=== PATIENT | female | born 1940 | race Caucasian/White ===

== ENCOUNTER → 2017-10-02 09:55 | Outpatient (CLI) | payer MEDICARE, SELFPAY ==
--- NOTE | 2017-10-02 09:58 | BI_ITS ---
MAMMOGRAPHY - BILATERAL SCREENING 3-D ELSY SYNTHESIS REASON FOR EXAM: Female, 76 years old. Bilateral Screening 3-D tomosynthesis PERTINENT HISTORY: No significant family history. TECHNIQUE: 2-D mammograms and 3-D Elsy synthesis of the breast (s) were performed. CAD was performed. COMPARISON: None. FINDINGS: The breast composition is composed of scattered fibroglandular density. Scattered benign calcifications are seen. No dense spiculated masses or suspicious microcalcifications are identified. No architectural distortion is identified. There is no skin thickening or retraction. There has been no significant change since the prior study. There has been no significant change since the prior study. BI/SCREENING MAMM (CAD), BILAT IMPRESSION: No mammographic signs of malignancy. Routine yearly mammograms recommended. ASSESSMENT CATEGORY: BIRADS Category 2: Benign. A letter regarding these results will be sent to the patient by the facility within 30 days. FOLLOW UP RECOMMENDATION: Yearly follow up mammogram recommended. (A) Approximately 10% of breast cancers are not detected by mammography. A normal mammogram should not delay biopsy of a clinically suspicious abnormality. Electronically Signed: Yung Avitia MD at 8:23 EDT , Service support ,
== END ==
PROVIDERS: Family Provider Internal Medicine; PCP Internal Medicine; Visit Provider Internal Medicine
DX: Z12.31 Encounter for screening mammogram for malignant neoplasm of breast (principal)
CPT/HCPCS: 77063; 77067

== ENCOUNTER → 2018-01-11 13:58 | Outpatient (CLI) | payer MEDICARE, SELFPAY ==
--- NOTE | 2018-01-11 14:03 | US_ITS ---
STUDY: RENAL ULTRASOUND - COMPLETE REASON FOR EXAM: Female, 77 years old. Right flank pain TECHNIQUE: Ultrasound evaluation of the kidneys was performed with real-time and static cho-scale imaging. COMPARISON: None. FINDINGS: RIGHT KIDNEY: Normal location of the right kidney, which is normal in size. The right kidney measures 9.9 x 5.5 x 3.6 cm. There is a normal cortex of the right kidney. The renal cortex measures 1.1 cm. A septated or 2 adjacent cysts are noted at the upper pole measuring 1.8 x 1.6 x 0.9 cm There are no right renal calculi. There is no right hydronephrosis. DISTAL RIGHT URETER: There is non-visualization of the distal right ureter. LEFT KIDNEY: Normal location of the left kidney, which is normal in size. The left kidney measures 9.8 x 4.3 x 3.9 cm. There is a normal cortex of the left kidney. The renal cortex measures 1.4 cm. There is an upper pole 9 mm cyst. There are no left renal calculi. There is no left hydronephrosis. DISTAL LEFT URETER: There is non-visualization of the distal left ureter. BLADDER: The partially distended urinary bladder has a volume of 22 ml. There is irregular wall of the distended urinary bladder. Questionable 1.4 x 1.1 x 0.7 cm intraluminal nodule in the urinary bladder. There are no demonstrated bladder calculi. US/Kidney and Bladder IMPRESSION: 2 adjacent cysts or a septated cyst of the right kidney upper pole. Upper pole cyst of the left kidney . Mild irregular wall thickening and questionable intraluminal nodule of the urinary bladder. Evaluation is limited due to incomplete distention. Electronically Signed: Doug Sinclair DO at 23:00 EDT Tel [phone], Service support ,
== END ==
PROVIDERS: Family Provider Internal Medicine; PCP Internal Medicine; Referring Provider Internal Medicine; Visit Provider Internal Medicine
DX: R10.9 Unspecified abdominal pain (principal)
CPT/HCPCS: 76770

== ENCOUNTER → 2018-03-28 08:43 | Outpatient (CLI) | payer MEDICARE, SELFPAY ==
--- NOTE | 2018-03-28 09:00 | RAD_ITS ---
STUDY: X-RAY - ESOPHAGUS (BARIUM SWALLOW) WITH FLUOROSCOPY REASON FOR EXAM: Female, 77 years old. Dysphagia. TECHNIQUE: 16 view(s) of the esophagus were obtained following swallowing of barium. FLUOROSCOPY TIME (if supplied): (0:33) minutes/seconds COMPARISON: None. FINDINGS: There is no demonstrated esophageal foreign body. There is no demonstrated stricture or mucosal abnormality. There is a small hiatal hernia of the fundus of the stomach. The patient ingested a 12 mm tablet at bedtime without any difficulty. There is atherosclerotic tortuosity of the aortic arch and descending thoracic aorta. Normal visualized pulmonary parenchyma. Normal visualized osseous structures of the thorax. RAD/Esophagus Only IMPRESSION: Small hiatal hernia. Electronically Signed: Dashawn Rowe MD at 15:38 EST Tel [phone], Service support ,
--- OUTSIDE RECORDS SUMMARY | 2018-06-01 23:29 | XMS RPT_ITS | Continuity of Care Document ---
:1940 Author Organization [facility] Address [address] [facility] [address] [place] [address] Phone Care Team Providers Name Role Phone Kristine Davis DO Unavailable Dr. Niels Molina Unavailable Jacque Concepcion Unavailable Belkis Nicole Unavailable Deanna Michelle Unavailable Unavailable Veena Linn Unavailable Unavailable Unavailable Unavailable Problems Name Dates Details Abdominal pain, acute, right lower quadrant (R10.31, 789.03) Status: Active Abnormal mammogram (R92.8, 793.80) Status: Active abnormal pelvic us Status: Active Abnormal ultrasound of bladder (R93.41, 793.5) Status: Active abnormal us of kidney Status: Active Acquired hypothyroidism (E03.9, 244.9) Status: Active Acute renal failure, unspecified acute renal failure type (N17.9, 584.9) Status: Active Anemia (D64.9, 285.9) Status: Active Arthralgia (M25.50, 719.40) Status: Active Asthma, intrinsic, with status asthmaticus (J45.902, 493.11) Comments: no issues Status: Active b12 deficiency Status: Active Back pain (M54.9, 724.5) Comments: flank pain doubt kidney ? 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 Status: Active Diverticulosis of colon (K57.30, 562.10) Status: Active Elevated alkaline phosphatase level (R74.8, 790.5) Status: Active Encounter for screening mammogram for breast cancer (Renamed from Encounter for screening mammogram for malignant neoplasm of breast) (Z12.31, V76.12) Status: Active Encounter for screening mammogram for breast cancer (Renamed from Encounter for screening mammogram for malignant neoplasm of breast) (Z12.31, V76.12) Status: Active Essential hypertension (I10, 401.9) Comments: chronic stable-continue present regimen Status: Active Gastric reflux (K21.9, 530.81) Status: Active Hip pain, right (M25.551, 719.45) Comments: has had xrays of hip and back and nsaids and pt and still has Status: Active Hypercholesterolemia (E78.00, 272.0) Comments: we discucsed her diet ok its lack of activiity she is going to work on getting some exercise machine soee if can do it or not - if not get more active we discussed starting chol loweringmed Status: Active Irritable bowel syndrome (K58.9, 564.1) Status: Active Low back pain (M54.5, 724.2) Status: Active [facility] wellness exam Status: Active [facility] Physical Status: Active Need for prophylactic vaccination and inoculation against influenza (Z23, V04.81) Status: Active Need for prophylactic vaccination and inoculation against influenza (Renamed from Need for immunization against influenza) (Z23, V04.81) Status: Active Nonsmoker (Z78.9, V49.89) Status: Active Osteoarthritis, unspecified osteoarthritis type, unspecified site (M19.90, 715.90) 11-Jul-2007 Status: Active Osteopenia (M85.80, 733.90) Status: Active Other specified conditions associated with female genital organs and menstrual cycle (N94.89, 629.89) Status: Active Other vitamin B12 deficiency anemia (D51.8, 281.1) Status: Active Paresthesia (R20.2, 782.0) Status: Active pericardial effusion Status: Active Postmenopausal (Renamed from Postmenopausal status) (Z78.0, V49.81) Status: Active Postmenopausal (Renamed from Postmenopausal status) (Z78.0, V49.81) Status: Active Pregnancies () Comments: 2. Status: Active Prolonged QT interval (R94.31, 794.31) Comments: taking quinine drops- so needs to m inimize Status: Active Right flank pain (R10.9, 789.09) Status: Active Right flank pain (R10.9, 789.09) Status: Active right lower quadrant pain Status: Active Spinal stenosis, multilevel (M48.00, 724.00) Comments: she saw ortho they are going to fix knee first then work on back Status: Active Unspecified Diagnosis Status: Active Vitaligo Status: Active Vitamin D deficiency, unspecified (E55.9, 268.9) Comments: chronic stable-continue present regimen Status: Active Medications Name Dates Details AmLODIPine Besylate 5 MG Oral Tablet 1 (one) Tablet daily for 90 days Quantity: 90 {Tablet} Refills: 3 Ordered:22-Jan-2018 Fast DOCuauhtemoca AFjuana MIX Kristine A Start : 22-Jan-2018 Active Amoxicillin 500 MG Oral Capsule 4 caps 1 hr prior to dental work for 0 days Refills: 0 Ordered:02-Jan-2018 Fast DOCuauhtemoca AFjuana DO Kristine A Start : 02-Jan-2018 Active Clotrimazole-Betamethasone 1-0.05 % External Cream tad Cream Daily prn for 0 days Quantity: 3 {Tube} Refills: 0 Ordered:09-Mar-2018 Fast DO Kristine AFast DO, Kristine A Start : 09-Mar-2018 Active Comments:PLEASE DISPENSE 3- 15GRAM TUBESPUT ON HOLD CYANOCOBALAMIN, 1000MCG/ML (Injection Solution) 1 (one) Solution one time dose for 1 days Quantity: 10 {Solution} Refills: 3 Ordered:21-Apr-2015 Lisandra Chilel Start : 28-Mar-2012 Active Diovan 160 MG Oral Tablet 1 (one) Tablet daily for 90 days Quantity: 90 {Tablet} Refills: 3 Ordered:03-Mar-2017 Fast DO, Kristine AFast DO, Kristine A Start : 03-Mar-2017 Active Comments:PLEASE PUT ON HOLD Hydrocodone-Acetaminophen 5-325 MG Oral Tablet 1 (one) Tablet Tablet q 6 hours prn for 0 days Quantity: 60 {Tablet} Refills: 0 Ordered:02-Mar-2016 Fast DO, Kristine AFast DO, Kristine A Start : 02-Mar-2016 Active Comments:[facility] - wests report#[id number], df approved and given to pt-jf 03/02/16 Imipramine HCl 25 MG Oral Tablet 1 (one) Tablet qhs prn for 0 days Quantity: 30 {Tablet} Refills: 1 Ordered:14-Jul-2017 Fast DO, Kristine AFast DO, Kristine A Start : 14-Jul-2017 Active Comments:verbally called to [facility] - cmanchak 5/4 Leg Cramps 7 to 8 tabs q hs for leg cramps Active Levothyroxine Sodium 150 MCG Oral Tablet 1 tab Tablet qd for 90 days Quantity: 114 {Tablet} Refills: 3 Ordered:05-Mar-2018 Adrianna Morgan DO Start : 05-Mar-2018 Active Comments:2 full pills on mondayPLEASE PUT ON HOLD Librax 5-2.5 MG Oral Capsule 1 cap Capsule tid prn for 0 days Quantity: 90 {Capsule} Refills: 3 Ordered:22-Jan-2018 Fast DO, Kristine AFast DO, Kristine A Start : 22-Jan-2018 Active LUTEIN, 6MG (Oral Capsule) 1 BID for 0 days Refills: 0 Ordered:18-Dec-2008 Lisandra ChilelActive Mobic 15 MG Oral Tablet 1 (one) Tablet qod for 90 days Quantity: 90 {Tablet} Refills: 3 Ordered:29-Jan-2018 Fast DO, Kristine AFast DO, Kristine A Start : 29-Jan-2018 Active Quinine 2.5mg q hs Active TiZANidine HCl 4 MG Oral Capsule 1 (one) Capsule qd for 90 days Quantity: 90 {Capsule} Refills: 1 Ordered:15-Feb-2018 Kristine Davis DO, DO, Kristine A Start : 15-Feb-2018 Active Tumeric 800mg bid Active UBIQUINOL, 100MG (Oral Capsule) 1 cap daily (100 MG) Active Vitamin D3 16024 UNIT Oral Capsule 1 (one) Capsule once a week for 90 days Quantity: 12 {Capsule} Refills: 3 Ordered:02-Jan-2018 Kristine Davis DO, DO, Kristine A Start : 02-Jan-2018 Active ADVAIR DISKUS, 250-50MCG/DOSE (Inhalation Aerosol Powder Breath Activated) 1 Misc QD for 90 days Quantity: 3 {Misc} Refills: 3 Ordered:03-Jul-2012 Kylee Castellon Start : 09-Jan-2012 End : 03-Jul-2012 Inactive AMOXIL, 875MG (Oral Tablet) 1 BID for 0 days Refills: 0 Ordered:21-Apr-2009 Merlyn Bedoyative ASPIRIN LOW DOSE, 81MG (Oral Tablet) 1 tab qd for 0 days Refills: 0 Ordered:07-Apr-2009 Lisandra Chilel End : 07-Apr-2009 Inactive ASPIRIN LOW DOSE, 81MG (Oral Tablet) 1 tab qd (81 MG) Inactive Ativan 0.5 MG Oral Tablet 1 Tablet qd prn for 0 days Quantity: 3 {Tablet} Refills: 0 Ordered:14-Sep-2016 Lisandra Chilel Start : 12-Sep-2012 End : 14-Sep-2016 Inactive Comments:three CARAFATE, 1GM/10ML (Oral Suspension) 1 (one) Suspension gm qid for 0 days Quantity: 1 {Suspension} Refills: 3 Ordered:05-Aug-2009 Lisandra Chilel Start : 17-Dec-2007 Inactive Chlordiazclidinum 1 cap prn for IBS Inactive Cipro 500 MG Oral Tablet 1 (one) Tablet bid for 10 days Quantity: 20 {Tablet} Refills: 0 Ordered:04-May-2016 Kristine Davis DO, DO, Kristine A Start : 04-May-2016 End : 14-May-2016 Inactive Comments:take a probiotic 2 hours after atb once daily DIOVAN HCT, 160-12.5MG (Oral Tablet) 1 (one) Tablet bid for 0 days Quantity: 60 {Tablet} Refills: 3 Ordered:24-Jan-2011 Lisandra Chilel Start : 30-Dec-2009 End : 24-Jan-2011 Inactive FISH OIL CONCENTRATE, 1000MG (Oral Capsule) 600mg 1 cap qd for 0 days Refills: 0 Ordered:24-Jan-2011 Lisandra Chilel End : 24-Jan-2011 Inactive HYDROXYCHLOROQUINE SULFATE, 200MG (Oral Tablet) 2 tabs Tablet q evening for 0 days Quantity: 60 {Tablet} Refills: 0 Ordered:22-Jun-2011 Tk Almaguer LPNsie Start : 13-Apr-2011 End : 22-Jun-2011 Inactive Losartan Potassium 100 MG Oral Tablet 1 (one) Tablet qd for 0 days Quantity: 30 {Tablet} Refills: 6 Ordered:02-Jan-2018 Kristine MIX DO, Kristine A Start : 16-Oct-2017 End : 02-Jan-2018 Inactive Omeprazole 40 MG Oral Capsule Delayed Release 1 (one) Capsule DR qd for 90 days Quantity: 90 {Capsule} Refills: 0 Ordered:10-Oct-2017 Deanna Michelle Start : 10-Oct-2017 End : 08-Jan-2018 Inactive Comments:per ER PRILOSEC OTC, 20MG (Oral Tablet Delayed Release) 1 tab qd for 0 days Refills: 0 Ordered:05-Aug-2009 Lisandra ChilelInactive PROBIOTIC (Oral Tablet Delayed Release) 1 (one) Tablet DR qd 2 hours after atb for 14 days Quantity: 14 {Tablet} Refills: 0 Ordered:25-Nov-2013 Kristine Davis DO DO, Kristine A Start : 08-Nov-2013 End : 22-Nov-2013 Inactive TRAMADOL HCL, 50MG (Oral Tablet) 2 to 3 tabs qd, prn (50 MG) Inactive Comments:vallenki AMOXICILLIN-POT CLAVULANATE, 875-125MG (Oral Tablet) 1 (one) Tablet Tablet bid for 0 days Quantity: 20 {Tablet} Refills: 0 Ordered:16-Feb-2015 Lisandra Chilel Start : 23-Sep-2013 End : 16-Feb-2015 Discontinued ASPIRIN LOW DOSE, 81MG (Oral Tablet) 1 QD for 0 days Refills: 0 Ordered:27-Mar-2006 Phyllis Escobar RN End : 27-Mar-2006 Discontinued BENICAR, 20MG (Oral Tablet) 1 Tablet QD for 0 days Quantity: 30 {Tablet} Refills: 3 Ordered:26-Feb-2007 Phyllis Escobar RN Start : 26-Feb-2007 End : 25-Jul-2007 Discontinued CELEBREX, 200MG (Oral Capsule) 1 Capsule BID for 0 days Quantity: 180 {Capsule} Refills: 3 Ordered:10-Apr-2006 Phyllis Escobar RN Start : 10-Apr-2006 End : 25-Jul-2007 Discontinued Comments:printed to phone room CLOTRIMAZOLE-BETAMETHASONE, 1-0.5% (External Cream) Not sure PRN for 0 days Refills: 0 Ordered:30-Jan-2006 Ivis Dickey Start : 30-Jan-2006 End : 30-Jan-2006 Discontinued Comments:This order discontinued per [facility]. Cyclobenzaprine HCl 5 MG Oral Tablet 1 (one) Tablet Tablet tid prn for muscle relaxation for 0 days Quantity: 30 {Tablet} Refills: 0 Ordered:14-Sep-2016 Lisandra Chilel Start : 18-Oct-2013 End : 14-Sep-2016 Discontinued Daypro 600 MG Oral Tablet 2 tabs daily (600 MG) End : 14-Sep-2016 Discontinued DIOVAN, 160MG (PO Cap) 1 qd for 0 days Refills: 0 Ordered:11-Jul-2007 Lisandra Chilel Start : 11-Jul-2007 End : 08-Aug-2007 Discontinued Drisdol 76577 UNIT Oral Capsule 1 (one) Capsule once a week for 90 days Quantity: 12 {Capsule} Refills: 3 Ordered:14-Sep-2016 Lisandra Chilel Start : 18-Dec-2015 End : 14-Sep-2016 Discontinued Gabapentin 100 MG Oral Capsule 1 (one) Capsule 1 pill 3 times a day for 3 days for 0 days Quantity: 360 {Capsule} Refills: 1 Ordered:17-Jan-2017 Lisandra Chilel Start : 11-Dec-2015 End : 17-Jan-2017 Discontinued Comments:then 2 pills 3 times a day for 3 days then 3 pills 3 times a day GREEN COFFEE CALLAHAN, 400MG (Oral Capsule) 3 caps am (400 MG) End : 16-Sep-2014 Discontinued GREEN TEA, 150MG (Oral Capsule) daily (150 MG) End : 13-Jul-2012 Discontinued Hydrocodone-Acetaminophen 5-325 MG Oral Tablet 1 (one) Tablet Tablet q 8 hours prn for 0 days Quantity: 90 {Tablet} Refills: 0 Ordered:14-Sep-2016 Lisandra Chilel Start : 05-Nov-2013 End : 14-Sep-2016 Discontinued Comments:ninety LEVAQUIN, 500MG (Oral Tablet) 1 (one) Tablet Daily for 0 days Quantity: 10 {Tablet} Refills: 0 Ordered:11-Jul-2007 Phyllis Escobar RN Start : 11-Jul-2007 End : 25-Jul-2007 Discontinued Monistat 7 Combo Pack Glen 100 & 2 MG-% (9GM) Vaginal Kit 1 (one) Kit Kit TAD for 0 days Quantity: 7 Kit Refills: 0 Ordered:14-Sep-2016 Lisandra Chilel Start : 04-Oct-2013 End : 14-Sep-2016 Discontinued NEXIUM, 40MG (Oral Capsule Delayed Release) 1 (one) Capsule DR Daily for 0 days Quantity: 90 {Capsule_DR} Refills: 3 Ordered:08-Aug-2006 Lisandra Chilel Start : 08-Aug-2006 End : 08-Aug-2007 Discontinued NITROGLYCERIN, 0.4MG (Sublingual Tablet Sublingual) 1 (one) Tab Sublingual q 5 min as needed x 3 max for 0 days Quantity: 30 {Tab_Sublingual} Refills: 0 Ordered:13-Jul-2012 Lisandra Chilel Start : 21-Apr-2009 End : 13-Jul-2012 Discontinued Comments:Medication taken as needed. This order discontinued per [facility]. ORPHENADRINE CITRATE ER, 100MG (Oral Tablet Extended Release 12 Hour) 1 tab bid, prn (100 MG) End : 14-Sep-2016 Discontinued PREVACID, 30MG (Oral Capsule Delayed Release) 1 (one) Capsule DR Daily for 0 days Refills: 0 Ordered:13-Jul-2006 Adrianna Morgan DO Start : 15-Jun-2006 End : 13-Jul-2006 Discontinued QUININE SULFATE, 325MG (Oral Capsule) 1 QD for 0 days Refills: 0 Ordered:26-Jul-2007 Phyllis Escobar RN End : 25-Jul-2007 Discontinued SUCRALFATE, 1GM (Oral Tablet) 1 Tablet Q AC and at HS for 0 days Refills: 0 Ordered:17-Dec-2007 Antwan DO, Kristine AFast DO, Kristine A Start : 17-Dec-2007 End : 17-Dec-2007 Discontinued SYNTHROID, 150MCG (Oral Tablet) 1 QD Tablet 2 Monday for 0 days Refills: 0 Ordered:15-Jun-2006 Mast AMIPhyllis Start : 30-Jan-2006 End : 15-Jun-2006 Discontinued VAGIFEM, 25MCG (Vaginal Tablet) 1 2 times per week for 0 days Refills: 0 Ordered:13-Aug-2007 Lisandra Chilel End : 08-Aug-2007 Discontinued VITAMIN D, 93817GDNT (Oral Capsule) 1 cap q week (48960 UNIT) Start : 27-Mar-2013 End : 27-Mar-2013 Discontinued Comments:This order discontinued per [facility]. VITAMIN D, 56062WIDT (Oral Capsule) 1 cap Capsule q week for 90 days Quantity: 12 {Capsule} Refills: 0 Ordered:27-Mar-2013 Lisandra Chilel Start : 27-Mar-2013 End : 27-Mar-2013 Discontinued Comments:This order discontinued per [facility]. VITAMIN D3, 2000UNIT (Oral Capsule) 1 Capsule qd for 0 days Quantity: 30 {Capsule} Refills: 0 Ordered:13-Nov-2012 Antwan MIX, Kristine AFjuana MIX, Kristine A Start : 13-Nov-2012 End : 13-Nov-2012 Discontinued Allergies and Adverse Reactions Name Dates Details Beef Flavor *PHARMACEUTICAL ADJUVANTS* Status: Active (Allergy) Comments: IBS Diovan HCT *ANTIHYPERTENSIVES* Status: Active (Allergy) Comments: severe leg cramps Diuretic *DIURETICS* (Allergy) Status: Active Comments: severe leg cramps Hydroxychloroquine Sulfate Status: Active *ANTIMALARIALS* (Allergy) Comments: chest pain Levaquin (Allergy) Status: Active Mirapex *ANTIPARKINSON AGENTS* Status: Active (Allergy) Comments: Nausea- didnt feel well while taking it No Known Drug Allergies (Allergy) Onset: 18-Feb-2013 Status: Inactive PredniSONE *CORTICOSTEROIDS* (Allergy) Status: Active Comments: palpitations, chest pain Past Medical History Name Dates Details Abdominal pain, acute, left lower quadrant (R10.32, 789.04) Comments: will presume and tx for diveticulitis -- and await cat scan Status: Inactive as of 27-Aug-2008 Abdominal pain, acute, left upper quadrant (R10.12, 789.02) Comments: improving Status: Inactive as of 27-Aug-2008 Abdominal pain, acute, right upper quadrant (R10.11, 789.01) Comments: ON EXAM--US HIDA WITH CCK WAS NORMAL Status: Inactive as of 27-Aug-2008 Abnormal blood chemistry (R79.9, 790.6) Status: Inactive as of 28-Aug-2017 Abrasion or friction burn of trunk, without mention of infection (911.0) Comments: PLACE EMOILLENTS TO IT AND NO BETTER I 1 SAAD-?? SECONDARY YEAST?? NEED CULTURED? OR REFERRED Status: Inactive as of 27-Aug-2008 Atypical chest pain (R07.89, 786.59) Status: Inactive as of 28-Aug-2017 BMI 35.0-35.9,adult (Z68.35, V85.35) Status: Inactive as of 28-Aug-2017 BMI 36.0-36.9,adult (Z68.36, V85.36) Status: Inactive as of 28-Aug-2017 BMI 37.0-37.9, adult (Z68.37, V85.37) Status: Inactive as of 28-Aug-2017 Chest pain (R07.9, 786.59) Status: Resolved as of 13-Nov-2012 Cough (R05, 786.2) Status: Resolved as of 07-Apr-2009 Cystitis, acute (N30.00, 595.0) Comments: resolved Status: Resolved as of 16-Sep-2014 edema Status: Resolved as of 31-Oct-2007 Edema leg (782.3) Status: Inactive as of 28-Aug-2017 Encounter for immunization (Z23, V03.89) Status: Inactive as of 07-Jul-2010 Epigastric pain (R10.13, 789.06) Comments: IMPROVING --ON PPI LESS THAN ONE MONTH --REC TO CONT FOR TIMEIF NO 100% RESOLUTION REC EGD OTHER STUDY? 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.9) Status: Inactive as of 28-Aug-2017 flank pain Status: Inactive as of 27-Aug-2008 Gastritis, acute (K29.00, 535.00) Status: Inactive as of 28-Aug-2017 Groin pain (789.00) Status: Resolved Kidney cyst, acquired (N28.1, 593.2) Comments: simple cysts Status: Inactive as of 28-Aug-2017 Left leg swelling (M79.89, 729.81) Status: Inactive as of 28-Aug-2017 leg cramps Comments: will try tonic water Status: Inactive as of 27-Aug-2008 Leg cramps (R25.2, 729.82) Status: Inactive as of 28-Aug-2017 Leukopenia (288.0) Status: Resolved as of 30-Dec-2009 Low Back Pain (Renamed from LBP (low back pain)) (M54.5, 724.2) Comments: rt flank Status: Inactive as of 28-Aug-2017 Lung nodule (R91.1, 518.89) Status: Inactive as of 30-Dec-2009 Neck pain (M54.2, 723.1) Status: Inactive as of 28-Aug-2017 Need for vaccination against Streptococcus pneumoniae (Z23, V03.82) Status: Inactive as of 16-Sep-2014 Pain in unspecified joint (M25.50, 719.40) Status: Inactive as of 28-Aug-2017 perirectal rash Status: Resolved as of 16-Sep-2014 postmenopausal without estrogen Status: Inactive as of 27-Aug-2008 Pre-operative exam (Renamed from Preoperative examination) (Z01.818, V72.84) Status: Resolved as of 21-Apr-2015 renal insufficiency Status: Resolved as of 05-Aug-2009 Right groin pain (789.03) Status: Resolved as of 13-Nov-2012 screen Status: Inactive as of 13-Apr-2011 screening Status: Inactive as of 16-Sep-2014 screening Status: Inactive as of 16-Sep-2014 screening Status: Inactive as of 07-Apr-2009 Unspecified Diagnosis Status: Inactive as of 16-Sep-2014 Urinary frequency (R35.0, 788.41) Status: Inactive as of 28-Aug-2017 Urinary retention (Renamed from Retention of urine) (R33.9, 788.20) Comments: not using imipramine any more not needing Status: Inactive as of 28-Aug-2017 Uterine mass (625.8) Status: Resolved as of 13-Nov-2012 UTI (lower urinary tract infection) (N39.0, 599.0) Status: Resolved as of 16-Sep-2014 Vaginal itching (N89.8, 698.1) Status: Resolved as of 16-Sep-2014 Vitiligo (L80, 709.01) Status: Inactive as of 28-Aug-2017 Well woman exam with routine gynecological exam (Z01.419, V72.31) Status: Inactive as of 13-Apr-2011 Procedures Procedure Dates Details Ultrasound - Renal Date: 04-Oct-2013 Completed 08-Oct-2013- left total knee Completed Ablashin Completed Oct-2017 Comments: back on R side Cataract Removal, Insert Prosthetic Completed Lens Comments: left 2017- Michael right 09/27- michael Colonoscopy, Screening Completed Sep-2014 Comments: repeat in 10 years d/c- 2012- neg Completed meningioma resection in her 50s Completed right knee tka Completed Total Hip Replacement - Right Completed Comments: june 2015- Dr Lee Date Value Details 11-Jan-2018 Kidney and Bladder Result: Comments: See Note; NOTES: [facility] Imaging Services [address] [place] [address] Kidney and Bladder MR#: [id number] Acct: [id number] Name: VIRGINIA URRUTIA Rep #: [id number] : 1940 F 77 From: Doug Sinclair DO PCP: Kristine Davis DO Status: REG CLI Study: Kidney and Bladder Date of Exam: 01/11/18 Exam# [id number] Ordering Dr: Kristine Davis DO STUDY: RENAL ULTRASOUND - COMPLET E REASON FOR EXAM: Female, 77 years old. Right flank pain TECHNIQUE: Ultrasound evaluation of the kidneys was performed with real-time and static cho-scale imaging. COMPARISON: None. FINDINGS: RIGHT KIDNEY: Normal location of the right kidney, which is normal in size. The right kidney measures 9.9 x 5.5 x 3.6 cm. There is a normal cortex of the right kidney. T he renal cortex measures 1.1 cm. A septated or 2 adjacent cysts are noted at the upper pole measuring 1.8 x 1.6 x 0.9 cm There are no right renal calculi. There is no right hydronephrosis. DISTAL RIGHT URETER: There is non-visualization of the distal right ureter. LEFT KIDNEY: Normal location of the left kidney, which is normal in size. The left kidney measures 9.8 x 4.3 x 3.9 cm. There is a normal cortex of the left kidney. The renal cortex measures 1.4 cm. There is an upper pole 9 mm cyst. There are no left renal calculi. There is no left hydronephrosis. DISTAL LEFT URETER: There is non-visuali zation of the distal left ureter. BLADDER: The partially distended urinary bladder has a volume of 22 ml. There is irregular wall of the distended urinary bladder. Questionable 1.4 x 1.1 x 0.7 cm intra luminal nodule in the urinary bladder. There are no demonstrated bladder calculi. US/Kidney and Bladder IMPRESSION: 2 adjacent cysts or a septate d cyst of the right kidney upper pole. Upper pole cyst of the left kidney . Mild irregular wall thickening and questionable intraluminal nodule of the urinary bladder. Evaluation is limited due to incom plete distention. 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 The right re na l cystic lesions appear stable. New left renal cyst. Findings in the urinary bladder are new since the previous study. Electronically Signed: Doug Sinclair DO at 19:55 EST Tel [phone], [employer] support , 01/22/181954 Date cc: Kristine Davis DO * Signed ADDENDUM by Doug Sinclair DO on 01/22/18 at 1954 US/Kidney and Bladder 2001 Date cc: Kristine Davis DO * Signed STUDY: RENAL ULTRASOUND - COMPLETE REASON FOR EXAM: Female, 77 years old. Right flank pain TECHNIQUE: Ultrasound evaluation of the kidneys was p erformed with real-time and static cho-scale imaging. COMPARISON: None. FINDINGS: RIGHT KIDNEY: Normal location of the right kidney, which is normal in size. The right kidney measures 9.9 x 5.5 x 3.6 cm. There is a normal cortex of the right kidney. The renal cortex measures 1.1 cm. A septated or 2 adjacent cysts are noted at the upper pole measuring 1.8 x 1.6 x 0.9 cm There are no right renal calculi. There is no right hydronephrosis. DISTAL RIGHT URETER: There is non-visualization of the distal right ureter. LEFT KIDNEY: Normal location of the left kidney, which is normal in size. The left kidney measures 9.8 x 4.3 x 3.9 cm. There is a normal cortex of the left kidney. The renal cortex measures 1.4 cm. There is an upper pole 9 mm cyst. There are no left renal calculi. There is no left hydronephrosis. DISTAL LEFT URETER: There is non-visualization of the distal left ureter. BLADDER: The partially distended urinary bladder has a volume of 22 ml. There is irregular wall of the distended urinary bladder. Questionable 1.4 x 1.1 x 0.7 cm intraluminal nodule in the urinary bladder. There are no demonstrated bladder calculi. ____ US/Kidney and Bladder IMPRESSION: 2 adjacent cysts or a septated cyst of the right kidney upper pole. Upper pole cyst of the left kidney . Mild irregular wall thickening and qu estionable intraluminal nodule of the urinary bladder. Evaluation is limited due to incomplete distention. Electronically Signed: Doug Sinclair DO at 23:00 EDT Tel [phone], Service support 1- [phone], CC: Kristine Davis DO Welder Assembler: Signed 05-Oct-2017 TXT - Blood Flow Screening Result: Comments: See Note; NOTES: [facility] Cardiovascular Services [address] [place] [address] 15910 10/02/17 0928 MR#: [id number] Acct: [id number] Name: VIRGINIA URRUTIA Rep #: [id number] : 1940 76 From: Johan Ortega MD Attending Dr: Kristine Davis DO Status: REG REF Ordering Dr: Date: 10/05/17 Location: CVS Sex: F C Admitted: Reason For Study: Blood flow screening Carotid Duplex Ultrasound Abdominal Aorta The right maximum ICA velocity is 76.6/26.5 cm/s.The maximal outside diameter of the proximal The right ECA velocity is less than 125 cm/s. aorta measures 1.7 cm in th e longitudinal axis. There is no plaque formation noted on the right The maximal outside diameter of the proximal side. aorta measures 1.7 x 1.8 cm in the cross- The left maximum ICA velocity is 73.9/26 .2 cm/s. sectional axis. The left ECA velocity is less than 125 cm/s. There is no plaque formation noted on the left side. Ankle Brachial Index The right ankle/ brachial index is 1.0. The left ankle/ b rachial index is 1.0. Medical History and Assessment The client presents with a history of high blood pressure. The heart rate is 72 beats per minute. The heart rhythm is regular. The right blood press ure is 140/78. The left blood pressure is 144/80. The assessment was performed by Omkar Duron RVT. Interpretation Summary Normal carotid artery screening (0 to 15% narrowing). Normal aortic ultrasound exam. The ankle/brachial index is normal (1.0 or greater). .rdering Physician: Kristine Davis D.O P erformed By: Loreto Duron RVT 10/05/171656 Date Johan Ortega MD CC: Kristine arias DO Date Dictated: 10/02/17 0928 Date Transcribed: 10/05/171656 Welder Assembler: Signed 02-Oct-2017 SCREENING MAMM (CAD), BILAT Result: Comments: See Note; NOTES: [facility] Imaging Services [address] [place] [address] SCREENING MAMM (CAD), BILAT MR#: [id number] Acct: [id number] Name: VIRGINIA URRUTIA Rep #: [id number] : 1940 F 76 From: Noel Avitia MD PCP: Kristine Davis DO Status: REG CLI Study: SCREENING MAMM (CAD), BILAT Date of Exam: 10/02/17 Exam# [id number] Ordering Dr: Kristine Davis DO MAMMOGRAPHY - BILATERAL SCREENING 3-D DANISH SYNTHESIS REASON FOR EXAM: Female, 76 years old. Bilateral Screening 3-D tomosynthesis PERTINENT HISTORY: No significant family history. TECHNIQUE: 2-D mammograms and 3-D Danish synthesis of the breast (s) were performed. CAD was performed. COMPARISON: None. FINDINGS: The breast composition is composed of scattered fibroglandular density. Scattered benign calcificat ions are seen. No dense spiculated masses or suspicious microcalcifications are identified. No architectural distortion is identified. There is no skin thickening or retraction. There has been no signi ficant change since the prior study. There has been no significant change since the prior study. BI/SCREENING MAMM (CAD), BILAT IMPRESSION: No mammographic signs of malignancy. Rout ine yearly mammograms recommended. ASSESSMENT CATEGORY: BIRADS Category 2: Benign. A letter regarding these results will be sent to the patient by the facility within 30 days. FOLLOW UP RECOMMENDATION : Yearly follow up mammogram recommended. (A) Approximately 10% of breast cancers are not detected by mammography. A normal mammogram should not delay biopsy of a clinically suspicious abnormality. El ectronically Signed: Yung Avitia MD at 8:23 EDT , Service support , CC: Kristine Davis DO Welder Assembler: Signed 14-Sep-2016 Venous Duplex Lower Extremity Result: Comments: See Note; NOTES: [facility] Cardiovascular Services [address] [place] [address] Venous Duplex US, Unilateral 09/14/16 1558 MR#: [id number] Acct: [id number] Name: VIRGINIA YEH Mook Rep #: [id number] : 1940 75 From: Johan Ortega MD Attending Dr: Kristine Davis DO Status: REG CLI Ordering Dr: Kristine Davis DO Date: 09/14/16 Location: CVS Sex: F C Admitted: Reas on For Study: LLE Swelling RIGHT LEFT CFV is compressible, spontaneous, phasic, GSV is normal. competent and demonstrates normal CFV is compressible, spontaneous, phasic , augmentation. competent, and demonstrates normal Procedure augmentation. Exam performed in department. FV is compressible, spontaneous, phasic, A preliminary report was called and/or faxed competent and demonstrates normal to Dr. Villegas ast. augmentation. POP V is compressible, spontaneous, phasic, competent and demonstrates normal augmentation. T/P Trunk is compressible. PTV is compressible. LT PerV is compressible. Difficult to visua lize Lt PeroV due to patient body habitus. Interpretation Summary Deep veins of the left lower extremity are patent and compressible segmentally. There is no evidence of left lower extremity deep vein thrombosis. Valvular competence appears intact within the proximal deep venous system on the left . The left greater saphenous vein appears patent and compressible segmentally. Ordering Physician: Kristine Davis Referring Physician: Kristine Davis Performed By: Diandra Eastman, BLAIR, RVT Electronically sign ed by: Johan Ortega MD on 09/14/2016 05:15 PM 09/14/16 1715 Date Johan Ortega MD CC: Kristine Davis DO Date Dictated: 09/14/16 1558 Date Transcribed: 09/14/161714 Welder Assembler: Signed 23-Aug-2016 Re-Evaluation - PT (1) Result: Comments: See Note; NOTES: [facility] Physical Therapy Health[address] [place] [address] Fax REEVALUATION / MEDICARE RUPALRTI MATTHIAS Zamora 4d PHYSICAL THERAPY MR#: [id number] Acct: [id number] Name: VIRGINIA URRUTIA Rep #: [id number] : 1940 75 From: Humberto Aguilar DPT, OCS, CSCS Referring Dr.: OUT OF [facility] DOCTOR Status : REG RCR Insurance: [facility] Out of [facility] Doctor, It has been my pleasure to treat VIRGINIA URRUTIA over the last 10 visits for L knee pain s/p L TKA. Please see the progress note below for an upda te on the physical therapy plan of care! Subjective: Pain level is good , none most of time but shooting pain every now and then. Does have bad back at 4/10 daily. Sleep is good. Ex are going well. Sti ll numb in L leg and feels like it might give out on her. That is why she uses her cane all the time. Makes her uncomfortable to walk without device. Lifting leg out to side is hard. Needs UE on steps. Doing standing gardening at home, not kneeling. Objective/Function: 0-120 AROM, 0 ext lag with SLR and good patellar mobility. Walking is hesitant without AD and good with cane. Does not trust L LE and it has some in bowing with steps and ambulation that can be fixed with VC and focus. Hip abduction is very weak at 3 and flexion 3 and ext 3, knee flexion and ext 4- Plan Plan: Continue PT 3x/week for 3 weeks. Focus on gait with knee in approp position and decreassing AD, steps, and hip strength. Progress to program pt can do via silver sneakers with list. Goals Goal 1:: 0-120 AROM L knee to make st eps more comfortable Goal Time Frame: 4-6 Weeks Goal Progress: Goal Met Goal 2:: Walk in community safely without need for AD. Goal Time Frame: 4-6 Weeks Goal Progress: Progressing Goal 3:: Steps recipr ocally with one rail Goal Time Frame: 4-6 Weeks Goal Progress: Progressing Goal 4:: Ready to return to gardening. Goal Time Frame: 4-6 Weeks Goal Progress: Progressing Anticipated Interventions Patient /Client Instruction: Educate patient on: Condition, Plan of Care For the Purpose of:: To decrease pain, To increase ROM Therapeutic Exercise to Include: Strength training, Balance training, Flexibilty t raining, Gait and locomotor training, Passive ROM, Active ROM For the Purpose of:: To decrease pain, To increase ROM, To improve ability of physical actions for home/community/work/leisure, To improve g ait and locomotor functions Manual Therapy Techniques to Include: Scar massage, Mobilization For the Purpose of:: To decrease pain, To increase ROM Cryotherapy (ice pack, ice massage): Yes For the Purpo se of:: To decrease pain Please do not hesitate to contact me at [phone] by phone or if you have questions or concerns regarding this new plan of care! Sincerely, Humberto Aguilar DPT, OC <Electronically signed by PACHECO Delacruz DPT, CSCS> 08/23/16 0929 CC: Kristine Davis DO; OUT [facility] DOCTOR EBG Signed For Medicare only, by signing this I certify the plan of care. Physicians Signature Date 29-Jul-2016 Inital Evaluation (1) - PT Result: Comments: See Note; NOTES: [facility] Physical Therapy Health[address] [place], [place] [address] Fax REHABILITATION SERVICES INITIAL EVALUATION MR#: [id number] Acct: [id number] Name: VIRGINIA URRUTIA Rep #: [id number] : 1940 75 From: Humberto Aguilar DPT, PACHECO, CSCS Referring DrDav: OUT OF TOWN DOCTOR Status: REG RCR Insurance: [facility] Patient's Visit Information VIRGINIA URRUTIA is a 75 year old F referred to Physical Therapy by Out [facility] Doctor with a diagnosis of L knee pain s/p L TKA. Date of Evaluation: 07/29/16 Phys ical Therapist: Humberto Jeff, DPT, OC - Visit Plan Frequency: 3x /Week Duration: 4-6 Weeks Plan: 3x/week for 3-6 weeks for: 1. scar massage and patellar mobs and knee flexion ROM L. 2. Strength and WB progression L, quad stretches. 3. Gait training and stair training. 4. ice as needed. - Subjective Subjective: Had L TKA on 06/26/16. Was in [place] 2 [place] and had home PT for two weeks. Had OA adn was painful prior. It should have been done over a year ago. Suregery went well by Dr. Stokes. Pain is not too bad.. currently 05/20. Has had LB MRI adn has DDD and degenerative changes. Sleep is not interru pted. takes oxycontin some nights. Retired. Uses wh walker away from hoe and not at home. Lives in 3 level home and steps are not terrible but mostly uses R. Has a railing and cane. Dresses self, and jessica shaffer takes care of meals as always. Uses sock aide and has prior to surgery. Hobbies include gardening and going out with friends and follows grandsons sports. Wishes to get back to these things. HEP: plenty. - Pain L anterior knee Pain Intensity (Out of 10): 3 Pain Intensity Range: 1, 5 - Objective Walks with wh walker and decent gait into eval room. Without AD is slow and hesitant, wide MIRI ad n looks down. Steps are with R LE only unless verbally cued, strength in L is good but slightly painful and poor confidence, needs two rails. Transfers to and fro supine and sit I. Quad moderately tight on L. Stand balance is solid with ec in romberg position. L knee AROM 0 -110, R 0-120. Hip[ and ankle AROM WFL B. strength is 4+ in B ankles, 3+ in L knee flexion and ext vs 4+ in R knee. Hip flexion i s 4- L and 4 R and abd is 3 L and 3+ R. Sensation L LE WNL to gross light touch. reflexes in patella and achilles 2/3. patella very tight on L inferiorly and medial laterally. Incision appears to have h ealed well, moderate scar tissue distally and minimal proximally. Edematic mildly in L LE and tender anteriorly to touch in L knee. - Goals Goal 1:: 0-120 AROM L knee to make steps more comfortable Goa l Time Frame: 4-6 Weeks Goal 2:: Walk in community safely without need for AD. Goal Time Frame: 4-6 Weeks Goal 3:: Steps reciprocally with one rail Goal Time Frame: 4-6 Weeks Goal 4:: Ready to return to gardening. Goal Time Frame: 4-6 Weeks - Rehabilitation Potential Physical Therapy Diagnosis: s/p L TKA Rehabilitation Potential: Good - Anticipated Interventions Patient/Client Instruction: Educate p atient on: Condition, Plan of Care For the Purpose of:: To decrease pain, To increase ROM Therapeutic Exercise to Include: Strength training, Balance training, Flexibilty training, Gait and locomotor tr aining, Passive ROM, Active ROM For the Purpose of:: To decrease pain, To increase ROM, To improve ability of physical actions for home/community/work/leisure, To improve gait and locomotor functions Ma nual Therapy Techniques to Include: Scar massage, Mobilization For the Purpose of:: To decrease pain, To increase ROM Cryotherapy (ice pack, ice massage): Yes For the Purpose of:: To decrease pain T karrie you for the opportunity to evaluate your patient. For Medicare and Medicare HMO plans, please review the plan of care and approve it. It will need to be FAXED BACK to us at [phone] for Medica re purposes. Please let me know if there are questions or concerns regarding this plan of care. Physician Signature: Date: <Elec tronically signed by Humberto Aguilar DPT, OCS, CSCS> 07/29/16 1554 CC: Kristine Davis DO; OUT OF TOWN DOCTOR EBG Signed For Medicare only, by signing this I certify the pl an of care. Physicians Signature Date 19-Apr-2016 Emergency Department Summary Result: Comments: See Note; NOTES: [facility] Medical Records Department [address] [place] [address] Emergency Department Summary MR#: [id number] Acct: [id number] Name: VIRGINIA URRUTIA Rep #: [id number] : 1940 75 From: Byron Harris MD PCP: Kristine Davis DO Status: DEP ER DATE OF SERVICE: 04/14/2016 METHOD OF ARRIVAL: Private car. CHIEF COMPLAINT: Left leg pain. HISTORY OF PRESENT ILLNESS: A 75-year-old female, patient of Dr. Davis, reports she has left calf pain that began approximately a week ago. It is 8/10 at worst, 4/10 currently. It is worsened by nothing includin g by walking. It is relieved by nothing. She denies any trauma including fall, MVA or change in activity. PHYSICAL EXAMINATION: GENERAL: Reveals alert woman, in no acute distress. VITAL SIGNS: Stable. EXTREMITIES: Significant physical findings include the exam of her left calf, which shows her to have mild tenderness to palpation. There is no edema. She has a 2+ dorsalis pedis pulse. Normal sensation to light touch throughout. The remainder of the physical exam is unremarkable. Please see T-sheet for details. TEST RESULTS: The patient had a Doppler that was negative. EMERGENCY DEPARTMENT COURSE: The patient refused pain medications. TREATMENT PLAN: The patient will be discharged with instructions to follow up with Dr. Davis in 1 week if not improving. DISPOSITION: Home in stable condition. IM PRESSION: Left calf pain, acute. MD Jose Angel Douglas C: Kristine Davis DO T: NTS JOB: [id number] 04/19/16 1814 <Electronically signed by Byron Harris MD> Date Byron Harris MD Cosigner Signature (If Indicated): Date CC: Kristine Davis DO Date Dictated: 04/15/1634 Date Transcrib ed: 04/15/1634 Welder Assembler: Signed 15-Apr-2016 Discharge Instruction Result: Comments: See Note; NOTES: [facility] Medical Records Department [address] [place] [address] Discharge Instruction 04/14/162306 MR#: [id number] Acct: [id number] Name: VIRGINIA URRUTIA Mook Rep #: [id number] : 1940 75 From: Byron Harris MD PCP: Kristine Davis DO Status: DEP ER ED Disposition - Plan for ED Patient: Chief Complaint: Lower Extremity Injury Instructions: ED S train Muscle Ext Referrals: Kristine Davis, [Primary Care Provider] - 1 Week if not improving What to do if you have Problems For any increased pain, shortness of breath, bleeding, nausea or vomiting , chest pain, or any unexpected problems, contact your Primary Care Provider. Call [facility] ([phone]) or report to the closest Emergency Room. Call 911 if necessary. 04/15/16 0118 &#6 0;Electronically signed by Byron Harris MD> Date Byron Harris MD Cosigner Signature (If Indicated): Date CC: Kristine Davis DO 14-Apr-2016 Venous Duplex Imag/Limited/Uni Result: Comments: See Note; NOTES: [facility] Imaging Services [address] [place] [address] Verdana 4d Venous Duplex Imag/Limited/Uni MR#: [id number] Acct: [id number] Name: GHADARHONA Delvalle Rep #: [id number] : 1940 F 75 From: Doug Sinclair DO PCP: Kristine Davis DO Status: REG ER Study: Venous Duplex Imag/Limited/Uni Date of Exam: 04/14/16 Exam# [id number] Ordering Dr: Byron Harris MD STUDY: VENOUS DOPPLER ULTRASOUND - LEFT LOWER EXTREMITY REASON FOR EXAM: Female, 75 years old. Left calf pain TECHNIQUE: Ultrasound evaluation of the deep vein system to include peñaloza-scale imagi ng and compression was performed. Peñaloza-scale imaging and Doppler sonographic evaluation, including duplex spectral analysis and qualitative color flow sonography, was performed. COMPARISON: None. FINDINGS: Common Femoral Vein: Normal compression, spontaneity and augmentation. Normal color Doppler. Common Femoral Vein/Greater Saphenous Junction: Normal compression. Superficial Femoral Proximal: Normal compression. Superficial Femoral Middle: Normal compression, spontaneity and augmentation. Normal color Doppler. Superficial Femoral Distal: Normal compression. P opliteal Vein: Normal compression, spontaneity and augmentation. Normal color Doppler. Posterior Tibial Vein: Normal compression. Peroneal Vein: Normal compression. There is no demonstrated deep venou s thrombosis. US/Venous Duplex Imag/Limited/Uni IMPRESSION: Normal venous Doppler ultrasound of the lower extremity. Electronically Signed: Doug Sinclair DO at 23:15 EST Tel [phone], Service support [phone], CC: Kristine Davis DO; Byron Harris MD Welder Assembler: Signed 13-Apr-2016 Spine Lumbar (Routine) Result: Comments: See Note; NOTES: [facility] Imaging Services [address] [place] [address] Verdana 4d Spine Lumbar (Routine) MR#: [id number] Acct: [id number] Name: VIRGINIA URRUTIA Kelly mortensen #: [id number] : 1940 F 75 From: Tiara Parsons MD PCP: Kristine Davis DO Status: REG CLI Study: Spine Lumbar (Routine) Date of Exam: 04/13/16 Exam# [id number] Ordering Dr: Kristine Davis DO STUDY: MRI LUMBAR SPINE WITHOUT CONTRAST REASON FOR EXAM: Female, 75 years old. Right lower quadrant abdominal pain. TECHNIQUE: Standardized fat and water weighted pulse sequences were obtained in the sagittal and axial planes. COMPARISON: None FINDINGS: T12-L1: Normal endplates. Normal disc height and morphology. There is decreased T2 signal within this disc suggesting sequela of degenerative disc disease. Normal bilateral facet joints. Normal central canal and bilateral lateral recesses. Normal bilateral intervertebral neural foramina. Normal lumbar lordosis. There is moderate curvature of the thoracic and lumbar spine convexity towards the left. Estimated amount of angulation is approximately 21 degrees. Normal conus medullaris that terminates at the T12-L1 level . L1-2: There is a mild annular disc bulge and osteophyte complex. There is mild degenerative arthropathy of facet joints. There is mild central acquired canal stenosis. Neural foramina are narrowed, w ithout evidence for nerve impingement. L2-3: There is a large annular disc bulge with posterior broad central disc protrusion. There is moderate degenerative arthropathy of facet joints. There is sever e cord canal stenosis with possible impingement of the cauda equina. Neural foramina are moderately narrowed without evidence for nerve impingement L3-4: There is severe narrowing of this disc. There i s a moderate disc bulge and osteophyte complex. There is a broad central disc protrusion. There is severe degenerative arthropathy of the facet joints. There is moderate central acquired canal stenosis. Neural foramina are narrowed, greater on the right than the left with apparent impingement of the right L3 nerve root at the neural foramen. L4-5: There is severe narrowing of this disc. There is a mo derate annular disc bulge. There is severe degenerative arthropathy of the facet joints. There is apparent impingement of the left L5 nerve root at the lateral recess. There is moderate acquired canal s tenosis. Neural foramina are bilaterally narrowed, greater on the left than the right with potential impingement of the left L4 nerve root at the neural foramen. L5-S1: There is moderate annular disc b ulge with broad central disc protrusion. There is severe degenerative arthropathy of the facet joints. There is mild acquired canal stenosis. There is apparent impingement of the left S1 nerve root at t he lateral recess. The neural foramina are mildly narrowed without evidence for nerve impingement. Normal visualized sacral ala. There appear to be small left-sided renal cysts. The paraspinal soft ti ssues are within normal limits. MRI/Spine Lumbar (Routine) IMPRESSION: 1. Moderately severe multilevel degenerative disc disease and degenerative arthropathy of the lumbar spine with acquired canal stenosis, neural foraminal narrowing and potential nerve impingement, as described. 2. Moderate curvature of the lumbar spine. Electronically Signed : Tiara Parsons MD at 11:48 EST , Service support [phone], CC: Kristine Davis DO Welder Assembler: Signed 12-Apr-2016 PT D/C Summary (1) Result: Comments: See Note; NOTES: [facility] Physical Therapy [facility] [address] [place], [place] [address] Fax REHABILITATION SERVICES DISCHAR SUMMARY MR#: [id number] Acct: [id number] Name: VIRGINIA URRUTIA Rep #: [id number] : 1940 75 From: Humberto Aguilar DPT, OCS, CSCS Referring DrDav: Kristine Davis DO Status: REG R Insurance: [facility] - PT D/C Summary It has been my pleasure to treat VIRGINIA URRUTIA under orders from Kristine Davis DO, for the diagnosis of R hip pain for a total of 12 visit(s). Discharge Date: Please see the [facility] information for a summary of their discharge status. - Subjective Subjective: No improvement, having MRI tomorrow. Dpoing bands at home and they keep her limber but doesn't help pain. Doctor didn't think PT would be helpful but needed to try it before MRI. Will have L knee replaced in June. Pain is daily to 6/10 with ambulation in R groin. Gone with sitting and lying. Exercises do not help or hurt it. Will be in [place] in May and will have L TKA in June. Will see doctor next week. Walks with cane at home and walker out and about. - Pain R hip Pain Intensity (Out of 10): 6 L knee Pain Intensity (Out of 10): 6 - Objective Objective/Function: Gait is obvous R trendelenberg even with the wh walker. Hesitant and not a confident gait pattern with R hip or L knee. AROM L/S 50% limited in ext and flexion and R SB slightly more than L SB. Hip AROM on R is symmetrical with L. strength is very weak in R hip abd and extensors at 3-, hip flexion R is 3+ and knee testing is 4-. HS are moderately tight but symmetrical. Transfers are I with UE usage. - Goals Goal 1:: Pt will be I with HEP Goal Progress: Goal Met Goal 2:: Pt will demonstrate improved R hip abduction/flexion strengt h to 4+/5. Goal Progress: Not Progressing Goal 3:: Pt will be able to ascend/descend 1 flight of stairs using LRD without onset of pain symptoms. Goal Progress: Not Progressing - Plan Plan: D/C. Pt to go back to doctor for next step after MRI tomorrow. - D/C Information If there are questions or concerns regarding this patient's physical therapy, please feel free to call me at [phone]. Thank eric laureano for the referral of this patient. Sincerely, Humberto Aguilar DPT, OC <Electronically signed by Humberto Aguilar DPT, OCS, CSCS> 04/12/16 1621 CC: Kristine Davis DO EBG Signed 12-Apr-2016 Dexa Bone Density Study (HP) Result: Comments: See Note; NOTES: [facility] Imaging Services [address] [place] [address] Verdana 4d Dexa Bone Density Study (HP) MR#: [id number] Acct: [id number] Name: ENE URRUTIA Rep #: [id number] : 1940 F 75 From: Dashawn Rowe MD PCP: Fast DO,Kristine Status: REG CLI Study: Dexa Bone Density Study (HP) Date of Exam: 04/12/16 Exam# [id number] Ordering Dr: Magallanes DO STUDY: DUAL ENERGY X-RAY ABSORPTIOMETRY / DXA REASON FOR EXAM: Female, 75 years old. Early menopause. Loss of height. TECHNIQUE: Bone Mineral Density (BMD) measurements of lumbar spine and le ft hip were obtained. COMPARISON: Comparison is made with prior study dated February 01, 2011. FINDINGS: Lumbar Spine (L1-L4): g/cm2 (1.185) / T-score (0.2) / Z-sc ore (1.9) Findings are suggestive of normal bone density with a low fracture risk. Left Femur Total: g/cm2 (0.783) / T-score (-1.8) / Z-score (-0.1) Left Femoral Neck: g/cm2 (0.826) / T-score (-1.5) / Z-score (0.3) The T-Scores on the most recent prior examination were: Lumbar Spine (L1-L4): There has been improvement of bone density since the previous examination. Left Femur Total: which represen ts a worsening of 14.9%. 0009 HPBD/Dexa Bone Density Study () IMPRESSION: The patient is considered osteopenic as outlined below according to World Rohan Organization (WHO) criteria with a moderate fracture risk. There has been worsening of bone density since the previous examination. Reference Information: Th e T-score is the number of standard deviations above or below the standard which is normal for young adults at their peak bone mineral density. The World Health Organization (WHO) interprets the T-score s as follows: Above -1 Normal bone density Between -1 and -2.5 Osteopenia Equal to / or below -2.5 Osteoporosis As a practical clinical guideline, osteopenia may be graded as follows: Mild -1 through -1.5 Moderate -1.6 through -2.0 Severe -2.1 through -2.4 The Z-score is the number of standard deviations above or below age-matched controls. A Z-score of less than -1.5 would be considered abnormal. References: 1. NIH Osteoporosis and Related Bone Diseases http://www.osteo.org 2. International Society for Clinical Densitometry http://www.iscd.org 3. National Osteoporosis Foundation http://www.nof. org Electronically Signed: Dashawn Rowe MD at 14:32 EST Tel [phone], Service support [phone], CC: Kristine Davis DO Welder Assembler: Signed 10-Mar-2016 Inital Evaluation (1) - PT Result: Comments: See Note; NOTES: [facility] [address] [place] [address]. [address] [place] [phone] Fax REHABILITATION SERVICES INITIAL EVALUATION MR#: [id number] Acct: [id number] Name: VIRGINIA URRUTIA Rep #: [id number] : 1940 75 From: Jennifer Gongora DPT Referring DrDav: Kristine Davis DO Status: REG R Insurance: [facility]'s Visit Information VIRGINIA URRUTIA is a 75 year old F referred to Physical Therapy by Kristine Davis DO with a diagnosis of R hip pain. Date of Evaluation: 03/10/16 Physical Therapist: Jennifer Gongora - Visit Plan Frequency: 3x /Week Duration: 4-6 Weeks Plan: 3x/wk for 4-6 weeks for LE flexilibity, R hip strengthening, gait training, balance training. - Subjective Subjective: Pt reports for PT ev aluation for R hip pain. Pt had R DANIELLE this June, and after typical round of PT she was feeling great. She received a stress test in December and after walking on the treadmill for test she began having significant pain in R hip. Went to PCP for this and was referred here to us to figure out if hip pain is from bursitits vs. low back. She will be scheduled for MRI in the future to examine spine but per pt MD would like to pursue therapy first to see if her symptoms are alleviated. Pain is mostly when walking, and pain is internal in the joint. LBP is not usually present, moreso in t he buttocks when flared up. She denies any N/T or pain radiating into LLE. Pain aggravated with stair navigation, sitting for long periods, and getting into the car. Anti-inflammatories work sometimes t o alleviate symptoms otherwise nothing helps with pain. Home setup: Pt lives in tri-level home, and must navigate flight of stairs to get into bathroom. She has somewhere around 20 steps to navigate to get to top floor. She has one railing that she can use for support. Lives with at home who can assist with ADLs if needed. Currently driving. AD: Mostly uses cane at home to get around, she also a rolling walker with seat that she uses for long distance ambulation. - Pain R hip Pain Intensity (Out of 10): 2 Pain Intensity Range: 9 Comment: At worst with stair navigation - Objective Lumbar ROM: Restricted 50% in all planes, forward flexion yields reports of very tight in hamstrings/glutes, though hip pain remains unchanged with all lumbar ROM/repeated movements. LE Str ength: RLE: knee flexion, extension 4/5, hip flexion: 3+/5, hip abduction-3-/5. LLE: knee flexion, extension 4+/5, hip flexion 3+/5, hip abduction 3/5. SLR: LLE WNL, RLE 3-/5, * positive for LB &#34 ;tightness with R SLR vs L. Slump test: Negative BLE. Hip ROM: WFL when compared to L. Palpation: Pt VERY tender with palpation of R glute med/TFL, slight tenderness over greater trochanter. Fl exibility: HS- severe restriction BLE. ITB: WNL - Special Tests L/S Slump test left side: Negative L/S Slump test right side: Negative L/S Left Straight Leg Raise: Negative L/S Right Straight Leg Raise : Positive R Hip Sb - IT Band: Negative - Goals Goal 1:: Pt will be I with HEP Goal Time Frame: 4-6 Weeks Goal 2:: Pt will demonstrate improved R hip abduction/flexion strength to 4+/5. Goal Time Fra me: 4-6 Weeks Goal 3:: Pt will be able to ascend/descend 1 flight of stairs using LRD without onset of pain symptoms. Goal Time Frame: 4-6 Weeks - Rehabilitation Potential Physical Therapy Diagnosis: D ecreased flexilibity. Decreased strength. Difficulty in walking. Decreased balance Rehabilitation Potential: Good - Anticipated Interventions Thank you for the opportunity to evaluate your patient. For Medicare and Medicare HMO plans, please review the plan of care and approve it. It will need to be FAXED BACK to us at [phone] for Medicare purposes. Please let me know if there are questio ns or concerns regarding this plan of care. Physician Signature: Date: <Electronically signed by Jennifer Gongora DPT> 1243 CC: Kristine Davis DO ELR Signed For Medicare only, by signing this I certify the plan of care. Physicians Signature Date 17-Dec-2015 Echocardiogram Complete Result: Comments: See Note; NOTES: [facility] Cardiovascular Services [address] [place] [address] Echo Complete 12/17/15 1401 MR#: [id number] Acct: [id number] Name: VIRGINIA URRUTIA Rep #: [id number] : 1940 75 From: Chicho Bahena MD Attending Dr: Kristine Davis DO Status: REG CLI Ordering Dr: Kristine Davis DO Date: 12/17/15 Location: [facility] Sex: F C Admitted: Reason For Study: a typical chest pain Procedure This was a 2D Doppler, Color Flow transthoracic echocardiogram. The study was technically difficult. Exam performed in department. Left Ventricle Normal LV size. Left vent ricular systolic function is normal. The estimated ejection fraction is 60 %. Transmitral and pulmonary venous doppler flow suggestive of impaired relaxation of left ventricle. No regional wall motion a bnormalities noted. Right Ventricle Normal RV size. Normal systolic function. Atria Normal left atrium. Normal right atrium. Mitral Valve There is mild to moderate mitral annular calcification. Tricu spid Valve Normal tricuspid valve. Mild to moderate (1-2+) tricuspid valve insufficiency. Pulmonary artery systolic pressure is 32 mmHg. Aortic Valve Normal aortic valve. Trisinus/trileaflet aortic sourav ve. Pulmonic Valve Normal pulmonic valve. Great Vessels Normal aortic root. The pulmonary artery is normal size. Inferior vena cava collapse with respiration. Pericardium/Pleural No pericardial effus ion. MMode/2D Measurements & Calculations LVIDd: 5.3 cm IVSd: 1.1 cm Ao root diam: 3.0 cm LVIDs: 3.2 cm LVPWd: 1.1 cm LA dimension: 4.0 cm RVDd: 3.1 cm FS: 40.3 % LAV(MOD-bp): 74.4 ml EDV(MOD- sp4): 68.7 ml EDV(MOD-sp2): 39.5 ml LAV(MOD-bp) Indexed: 35.1 ml/m2 ESV(MOD- sp4): 21.5 ml EF(MOD-sp2): 56.5 % LAV(MOD-sp2 ): 65.7 ml EF(MOD-sp4): 68.7 % LAV(MOD-sp4): 70.5 ml SV(MOD-sp4): 47.2 ml SV(MOD-sp2): 22.3 ml LA A4 area: 23.0 cm2 ____ RA A4 area: 16.9 cm2 Doppler Measurements & Calculations MV E max donald: 123.1 cm/sec Lat Peak E' Donald: 8.8 cm/sec Med Peak E' Donald: 8.4 cm/sec MV A max donald: 146.5 cm/sec E/E' lat: 14.0 E/E' med: 14.6 MV E/A: 0.84 Ao V2 max: 166.9 cm/sec L V V1 max: 115.0 cm/sec PA V2 max: 103.4 cm/sec Ao max P.1 mmHg LV V1 max P.3 mmHg TR max donald: 265.6 cm/sec TR m ax P.3 mmHg Interpretation Summary Normal LV size. Left ventricular systolic function is normal. The estimated ejection fraction is 60 %. There is mild to moderate mitral annular calcification. Mi ld to moderate (1-2+) tricuspid valve insufficiency. Pulmonary artery systolic pressure is 32 mmHg. Compared to prior study, there is no significant change. Ordering Physician: Kristine Davis Performed By: Bianka Tang, BLAIR, RVT 170 Date Chicho Bahena MD CC: Kristine Davis DO Date Dictated: 12/17/15 1401 Date Transcribed: 12/17/151700 Welder Assembler: Signed 11-Dec-2015 Bilat Scrn Digital AND CAD Result: Comments: See Note; NOTES: [facility] Imaging Services [address] [place] [address] Verdana 4d Bilat Scrn Digital AND CAD MR#: [id number] Acct: [id number] Name: VIRGINIA URRUTIA Rep #: [id number] : 1940 F 75 From: Dashawn Rowe MD PCP: Kristine Davis DO Status: REG CLI Study: Bilat Scrn Digital AND CAD Date of Exam: 12/11/15 Exam# [id number] Ordering Dr: Kristine Davis DO MAMMOGRAPHY - BILATERAL SCREENING REASON FOR EXAM: Female, 75 years old. Routine annual screening examination. PERTINENT HISTORY: Non-contributory. TECHNIQUE: Digital bilateral breast danish (3D mammographic acquisition) in the CC and MLO projections. 2-D mediolateral oblique (MLO) and craniocaudad (CC) views of both breasts were obtained. CAD: Full Field Digital Mammography with Computer Adde d Detection was performed. COMPARISON: Comparison is made with prior study dated January 22, 2014 and July 23, 2012. FINDINGS: Breast Composition: There are scatter ed areas of fibroglandular density. There are no dominant masses or suspicious calcifications. No other significant abnormalities are identified. There has been no significant change since the prior . HPBI/Bilat Scrn Digital AND CAD IMPRESSION: Stable bilateral screening mammogram. Yearly follow-up mammogram recommended. (A) ASSESSMENT CATEGORY: BIRADS Category 1: Negative. A letter regarding these results will be sent to the patient by the facility within 30 days. Approximately 10% of breast canc ers are not detected by mammography. A normal mammogram should not delay biopsy of a clinically suspicious abnormality. [id number] Electronically Signed: Dashawn Rowe MD at 8:47 EDT Tel [phone], Service support [phone], CC: Kristine Davis DO Welder Assembler: Signed 03-Jan-2015 Emergency Department Summary Result: Comments: See Note; NOTES: [facility] Medical Records Department [address] [place] [address] Emergency Department Summary MR#: [id number] Acct: [id number] Name: VIRGINIA URRUTIA Mook Rep #: [id number] : 1940 74 From: Ivette Cline PCP: Kristine Davis DO Status: DEP ER DATE OF SERVICE: 12/27/2014 HISTORY OF PRESENT ILLNESS: The patient is a 74-year-old fema le who presents to the Emergency Department with neck pain. It started 1 week ago. She was seen in the Emergency Department and diagnosed with neck strain and she had been using a cane, which she had not used in the past. She has been using Lidoderm patches; however, it has gotten worse. She has extreme sensitivity from pain radiating up the back of her head, even when she lays down or something b rushes her skin. She also has tenseness in the sides of her neck and when she turns her head. No numbness or tingling or weakness, but her range of motion is significantly limited in her neck from pa in. She has a history of hypertension and GERD. She is scheduled for knee replacement surgery on Monday. PHYSICAL EXAMINATION: VITAL SIGNS: Blood pressure is 167/88, other vitals within normal limit s except for heart rate of 103. GENERAL: Well-nourished female in no acute distress. HEENT: Normal HEENT exam except for hyperesthesia of the posterior scalp. There are no skin lesions. NECK: She d oes not have any midline tenderness or reproducible tenderness except with turning her neck from side to side. HEART: She has a regular rate and rhythm. No murmurs. LUNGS: No respiratory distress. Cl ear to auscultation. ABDOMEN: Soft and nontender. NEUROLOGIC: She has a normal neurologic exam, 5/5 thumb opposition, wrist flexion, wrist extension and shoulder abduction. Cranial nerves are intact. EMERGENCY DEPARTMENT COURSE: CT of the cervical spine was obtained and showed degenerative changes of the vertebrae along with decreased disk space. The patient was given Percocet and Norflex witho ut significant relief. She will start back on her Mobic. Will be given Percocet and Norflex. I did recommend physical therapy to be arranged by her primary care doctor. I did recommend that she call Dr. Lee's office today regarding her surgery given that she cannot turn her head from side to side or lay back. This may inhibit recovery from her elective knee surgery. She understands these instru ctions. DISPOSITION: Discharge. DIAGNOSES: 1. Neck pain. 2. Occipital neuralgia. MD Jose Angel Grossman C: Kristine Davis DO T: [facility] JOB: [id number] 01/03/15 8262 <Electronically signed Marija Cline > Date Ivette Cline Cosigner Signature (If Indicated): Date CC: Kristine Davis DO Date Dictated: 12/27/141108 Date Transcribed: 12/27/141108 Welder Assembler: Signed 27-Dec-2014 Discharge Instruction Result: Comments: See Note; NOTES: [facility] Medical Records Department [address] [place] [address] Discharge Instruction 12/27/14 1100 MR#: [id number] Acct: [id number] Name: VIRGINIA URRUTIA Rep #: [id number] : 1940 74 From: Ivette Cline PCP: Kristine Davis DO Status: REG ER ED Disposition - Plan for ED Patient: Chief Complaint: Other, Pain/Inj Instructi ons: ED Neck Pain, No Trauma, ED Degenerative Disk Disease Prescriptions: Oxycodone HCl/Acetaminophen [Percocet 5/325] 1 tablet PO Q6H PRN PRN #10 tablet PRN Reason: Pain Orphenadrine [Norflex ER] 1 00 mg PO BID PRN #20 tablet PRN Reason: Muscle Spasm Referrals: Kristine Davis DO [Primary Care Provider] - 12/29/14 Additional Instructions: you also have an associated occipital neuralgia You hav ing inflammation pain and muscle spasm secondary to degenerative changes of the cervical spine. I recommend anti-inflammatories, pain medicine and muscle relaxants as well as physical therapy to be arr anged by your primary physician. The motion restrictions that you have from pain may inhibit recovery from elective surgery. What to do if you have Problems For any increased pain, shortness of b reath, bleeding, nausea or vomiting, chest pain, or any unexpected problems, contact your doctor. Call [facility] ([phone]) or report to the closest Emergency Room. Call 911 if necessary. 12/27/141105 <Electronically signed by Ivette Cline > Date Ivette Cline Cosigner Signature (If Indicated): Date _ CC: Kristine Davis DO 27-Dec-2014 Spine Cervical without Contras Result: Comments: See Note; NOTES: [facility] Imaging Services [address] [place] [address] Verdana 4d Spine Cervical without Contras MR#: [id number] Acct: [id number] Na me: VIRGINIA URRUTIA Rep #: [id number] : 1940 F 74 From: Doug Sinclair DO PCP: Kristine Davis DO Status: REG ER Study: Spine Cervical without Contras Date of Exam: 12/27/14 Exam# [id number] Ordering Dr : Ivette Cline STUDY: CT CERVICAL SPINE WITHOUT CONTRAST REASON FOR EXAM: Female, 74 years old. Neck pain RADIATION DOSAGE (If Supplied By Facility): CTDIvol = ( 16.76 ) mGy, DLP = ( 343.78 ) m Gycm TECHNIQUE: High resolution transaxial imaging was performed without contrast material. Sagittal and coronal images were reconstructed. COMPARISON: None F INDINGS: Normal craniovertebral junction. Normal anterior atlantoaxial articulation. Normal odontoid process. Normal cervical lordosis. Normal vertebral bodies and posterior osseous elements. C2- 3: Normal endplates. Normal disc height and morphology. Mild bilateral facet hypertrophy. Normal central canal and intervertebral neuroforamina. C3-4: Normal endplates. Normal disc height and morpho logy. Facet hypertrophy, left more than right. Normal central canal and intervertebral neuroforamina. C4-5: Normal endplates. Normal disc height and morphology. Facet hypertrophy, right more severe than left. Normal central canal. Facet hypertrophy and uncovertebral spurring narrowing the right intervertebral neural foramen. C5-6: Normal endplates. Normal disc height and morphology. Normal c entral canal. Facet hypertrophy and uncovertebral spurring narrowing the intervertebral neuroforamina. C6-7: Mild spurring at the endplates. Narrowed disc height. Normal central canal. Facet hypertr ophy and spur narrowing the left intervertebral neural foramen. C7-T1: Normal endplates. Narrowed disc height. Normal central canal and intervertebral neuroforamina. Normal visualized soft tissue structures. IMPRESSION: Degenerative changes of the cervical spine. Electronically Signed: Doug Sinclair DO at 10:36 EDT Tel [phone], Service suppo rt [phone], CC: Ivette Cline; Kristine Davis DO Welder Assembler: Signed 23-Dec-2014 Emergency Department Summary Result: Comments: See Note; NOTES: [facility] Medical Records Department [address] [facility] [place] [address] Emergency Department Summary MR#: [id number] Acct: [id number] Name: VIRGINIA URRUTIA Rep #: [id number] : 1940 74 From: Se Dawkins MD PCP: Kristine Davis DO Status: DEP ER DATE OF SERVICE: 12/23/2014 CHIEF COMPLAINT: Neck pain. HISTORY OF PRESENT ILLNESS: This is a 74-year-old female who started with neck pain last evening. It started on the left side of the neck. It is worse with movement. She took 2 baby aspirin without relief. She denies chest pain or shortness of breath. She has had no dizziness, no weakness, no other symptoms. She has a history of hypertension and arthritis. PHYSICAL EXAMINATION: VITAL SIGNS: Reviewed. GENERAL: Well-develop ed female, in no distress. HEENT: Normal. NECK: Reveals tenderness to palpation over the anterior part of the left trapezius muscle. No carotid tenderness. There are no carotid bruits. HEART: Regula r. LUNGS: Clear. ABDOMEN: Soft. BACK: Nontender. NEUROLOGIC: Normal. EMERGENCY DEPARTMENT COURSE: I feel the patient likely has a cervical strain. The patient requested an ultrasound. I informed her that there is nothing ____ ultrasound. I do not feel that this is a carotid pathology as the patient has no neurologic findings. She will be treated with topical lidocaine patches. She will follo w up with her doctor next week. DISPOSITION: Discharge. DIAGNOSIS: Cervical strain, acute. Se Dawkins MD T: [facility] JOB: [id number] 12/23/14 0800 <Electronically signed by Se Dawkins MD> Date Se Dawkins MD Cosigner Signature (If Indicated): Date CC: Kristine Davis DO Date Dictated: 12/23/14707 Date Transcribed: 12/23/14707 Welder Assembler: Signed 23-Dec-2014 Discharge Instruction Result: Comments: See Note; NOTES: [facility] Medical Records Department [address] [facility] [place] [address] Discharge Instruction 12/23/14704 MR#: [id number] Acct: [id number] Name: VIRGINIA URRUTIA Rep #: [id number] : 1940 74 From: Se Dawkins MD PCP: Kristine Davis DO Status: PRE ER ED Disposition - Plan for ED Patient: Disposition: Home or Assisted Living Chi ef Complaint: Other, Pain/Inj Diagnosis: Cervical strain, acute Instructions: ED Neck Sprain/Strain Prescriptions: Lidocaine/Menthol [Lidall 4%-1% Patch] 1 each TP BID #14 adh..patch What to do if you have Problems For any increased pain, shortness of breath, bleeding, nausea or vomiting, chest pain, or any unexpected problems, contact your doctor. Call [facility] ([phone]) or r eport to the closest Emergency Room. Call 911 if necessary. 12/23/14705 <Electronically signed by Se Dawkins MD> Date Se collins MD Cosigner Signature (If Indicated): Date CC: Kristine Davis DO 10-Dec-2014 ELECTROCARDIOGRAM, COMPLETE (ECG) (64110) Result: [MEASUREMENTS ANALYSIS] Date of Test: 12/10/2014 10:23:24; Heart Rate: 91; [place] Interval: 144; QRS: 96; QT Interval: 372; Corrected QT Interval (QTc): 426; P Wave [place]: 49; QRS [place]: 35; T Wave [place]: 30; Blood Pressure: 0/0 [ECG DIAGNOSTIC STATEMENTS] Date of Test: 12/10/2014 10:23:24; Summary: Sinus Rhythm Low voltage in limb leads. ABNORMAL 22-Sep-2014 Abdomen/Pelvis WITH Contrast Result: Comments: See Note; NOTES: [facility] Imaging Services [address] [place] [address] CAT Scan Report MR#: [id number] Acct: [id number] Name: VIRGINIA URRUTIA Rep #: [id number] : 1940 F 73 From: Rey Rojo MD PCP: Kristine Davis DO Status: REG CLI Study: Abdomen/Pelvis WITH Contrast Date of Exam: 09/22/14 Exam# [id number] Ordering Dr: Kristine Davis DO STUDY : CT ABDOMEN AND PELVIS WITH CONTRAST REASON FOR EXAM: Female, 73 years old. Right lower quadrant pain x2 years with no history cancer, diabetes, hypertension or previous abdominal surgeries. Had curtis rgery for brain angioma.. RADIATION DOSAGE (If Supplied By Facility): CTDIvol = ( 16.50 ) mGy, DLP = ( 1842.32 ) mGycm TECHNIQUE: Transaxial images were obtained from the dome of the diaphragm to the symphysis pubis with oral contrast. 100ml ml of Isovue 300 contrast was administered. Sagittal and coronal images were reconstructed. COMPARISON: CT abdomen pelvis dated 11/05/13. FINDINGS: 2 mm calcified right lower lobe pulmonary granuloma. The visualized portions of the heart are within normal limits. 4 mm redemonstrated probable left hepatic lobe cy st. There are multiple small gallstones. Normal spleen. Normal pancreas. Normal bilateral adrenal glands. Redemonstrated 1.7 cm right upper pole renal cyst. 1cm left renal cyst. Normal visualized stomach. Normal small intestine. Normal colon. Normal appendix, sagittal images #57 through #61 Normal abdominal aorta. Normal inferior vena cava. Normal retroperitoneum. Normal urinary bladder. Normal abdominal wall. There are diffuse degenerative changes and significant levoscoliosis of the visualized lumbar spine. IMPRESSION: No CT evidence of an ac [place] intra-abdominal or pelvic process. Redemonstrated small multiple gallstones and bilateral renal cysts. Normal appendix. Electronically Signed: Rey Rojo MD at 16:58 EDT Te l [phone], Service support [phone], CC: Kristine Davis DO Welder Assembler: Signed 31-Mar-2014 Transvaginal Non- Result: Comments: See Note; NOTES: [facility] Imaging Services [address] [place] [address] Ultrasound Report MR#: [id number] Acct: [id number] Name: VIRGINIA URRUTIA Rep #: [id number] : 1940 F 73 From: Dashawn Rowe MD PCP: Kristine Davis DO Status: REG CLI Study: Transvaginal Non- Date of Exam: 03/31/14 Exam# [id number] Ordering Dr: Kristine Davis DO STUD Y: ULTRASOUND OF THE FEMALE PELVIS - COMPLETE REASON FOR EXAM: Female, 73 years old. LMP: The patient is postmenopausal. Chronic pelvic pain. TECHNIQUE: Transabdominal and Transvaginal TECHNICAL QUALITY: Adequate. COMPARISON: None. FINDINGS: The uterus is retroverted and is in a midline position. The uterus measures 6.3 cm x 3.4 cm x 4.7 cm. There is a Nabothian cyst of the cervix. The endometrium measures 3 mm in thickness, and is hyperechoic. There is no demonstrated endometrial mass. The uterus is of heterogeneous echotexture containing several focal calcifications suggestive of fibroid change. I.U.D. - No The right ovary is non-visualized. The left ovary is visualized. The left ovary measures 1.3 cm x 1.3 cm x 0.9 cm. There is no left ovarian cyst or ovarian mass. There is no visualized left adnexal mass or complex lesion. There is normal arterial and normal venous vascularity. There is no fluid in the cul-de-sac. IMPRESSION: Fibroid change is seen within the uterus. Electronically Signed: Dashawn Rowe MD at 13:55 EST Tel [phone], Service support [phone], F ax [phone] CC: Kristine Davis DO Welder Assembler: Signed 31-Mar-2014 Pelvic (Non ) Result: Comments: See Note; NOTES: [facility] Imaging Services [address] [place] [address] Ultrasound Report MR#: [id number] Acct: [id number] Name: VIRGINIA URRUTIA Rep #: [id number] : 1940 F 73 From: Dashawn Rowe MD PCP: Kristine Davis DO Status: REG CLI Study: Pelvic (Non ) Date of Exam: 03/31/14 Exam# [id number] Ordering Dr: Kristine Davis DO STUDY: U LTRASOUND OF THE FEMALE PELVIS - COMPLETE REASON FOR EXAM: Female, 73 years old. LMP: The patient is postmenopausal. Chronic pelvic pain. TECHNIQUE: Transabdominal and Transvaginal TECHNICAL QUAL ITY: Adequate. COMPARISON: None. FINDINGS: The uterus is retroverted and is in a midline position. The uterus measures 6.3 cm x 3.4 cm x 4.7 cm. There is a Nab othian cyst of the cervix. The endometrium measures 3 mm in thickness, and is hyperechoic. There is no demonstrated endometrial mass. The uterus is of heterogeneous echotexture containing several foc al calcifications suggestive of fibroid change. I.U.D. - No The right ovary is non-visualized. The left ovary is visualized. The left ovary measures 1.3 cm x 1.3 cm x 0.9 cm. There is no left ovar josué cyst or ovarian mass. There is no visualized left adnexal mass or complex lesion. There is normal arterial and normal venous vascularity. There is no fluid in the cul-de-sac. IMPRESSION: Fibroid change is seen within the uterus. Electronically Signed: Dashawn Rowe MD at 13:55 EST Tel [phone], Service support [phone], Fax CC: Kristine Davis DO Welder Assembler: Signed 22-Jan-2014 [facility] [employer] Result: Comments: See Note; NOTES: [facility] Imaging Services [address] [place] [id number] Breast Imaging Report MR#: [id number] Acct: [id number] Name: VIRGINIA URRUTIA Rep #: [id number] : 1940 F 73 From: Dashawn Rowe MD PCP: Kristine Davis DO Status: REG CLI Exam# [id number] Ordering Dr: Kristine Davis DO MAMMOGRAPHY - BILATERAL SCREENING REASON FOR EXAM: Claudia shepherd, 73 years old. Routine annual screening examination. PERTINENT HISTORY: Non-contributory. TECHNIQUE: Digital examination. Mediolateral oblique (MLO) and craniocaudad (CC) views of both breasts were obtained. CAD: CAD was performed on this study. COMPARISON: Comparison is made with prior study dated July 23, 2012 and June 22, 2011. FINDINGS: Breast Composition: There are scattered areas of fibroglandular density. There are no dominant masses or suspicious calcifications. No other significant abnormalities are identified. There has been no sig nificant change since the prior study. IMPRESSION: Stable bilateral screening mammogram. Yearly follow-up recommended. (A) ASSESSMENT CATEGORY: BIRADS Category 2: Benign finding(s). A letter regarding these results will be sent to the patient by the facility within 30 days. Approximately 10% of breast cancers are not de tected by mammography. A normal mammogram should not delay biopsy of a clinically suspicious abnormality. Electronically Signed: Dashawn Rowe MD at 14:49 EST Tel [phone], Ser vice support [phone], CC: Kristine Davis DO Welder Assembler: Signed 07-Nov-2013 L/S Spine Min 4 Views Result: Comments: See Note; NOTES: [facility] Imaging Services [address] [place] [address] Radiology Report MR#: [id number] Acct: [id number] Name: VIRGINIA URRUTIA Rep #: [id number] : 1940 F 73 From: Tod Lamas MD PCP: Kristine Davis DO Status: REG CLI Study: L/S Spine Min 4 Views Date of Exam: 11/07/13 Exam# [id number] Ordering Dr: Kristine Davis DO STUDY: X-RA Y - LUMBAR SPINE REASON FOR EXAM: Female, 73 years old. Right flank pain. TECHNIQUE: 5 view(s) of the lumbar spine were obtained. COMPARISON: None FINDINGS: Normal lumbar lordosis. There is a levoscoliosis of the lumbar spine. There is a normal alignment of the vertebrae. There is multilevel endplate spondylosis of the lumbar vertebrae. There is multi- level degenerative disc disease with multi-level disc space narrowing. There is no demonstrated fracture. Multilevel degenerative disease of the facet joints is seen. The soft tissue structures are unremarkable. IMPRESSION: There is no acute abnormality. There is prominent multilevel degenerative disease. There is scoliosis to the left. Electronically Sig madeleine: Tod Lamas MD at 18:52 EDT Tel , Service support [phone], CC: Kristine Davis DO Welder Assembler: Signed 07-Nov-2013 Thoracic Spine 3 Views Result: Comments: See Note; NOTES: [facility] Imaging Services [address] [place] [address] Radiology Report MR#: [id number] Acct: [id number] Name: VIRGINIA URRUTIA Rep #: [id number] : 1940 F 73 From: Tod Lamas MD PCP: Kristine Davis DO Status: REG CLI Study: Thoracic Spine 3 Views Date of Exam: 11/07/13 Exam# [id number] Ordering Dr: Kristine Davis DO STUDY: X-R AY - THORACIC SPINE REASON FOR EXAM: Female, 73 years old. Right flank pain. TECHNIQUE: 2 view(s) of the thoracic spine were obtained. COMPARISON: None. FIND INGS: Normal kyphosis of the thoracic spine. There is mild scoliosis to the right. There is multilevel endplate spondylosis of the thoracic vertebrae. There is multilevel disc space narrowing of the thoracic spine. The soft tissue structures are unremarkable. IMPRESSION: No acute abnormality. Mild scoliosis to the right and age- appropriate degenerative patricia nges. Electronically Signed: Tod Lamas MD at 17:07 EDT Tel , Service support [phone], CC: Kristine Davis DO Welder Assembler: Signed 05-Nov-2013 Abdomen/Pelvis without Cont Result: Comments: See Note; NOTES: [facility] Imaging Services [address] [place] [address] CAT Scan Report MR#: [id number] Acct: [id number] Name: VIRGINIA URRUTIA Rep #: [id number] : 1940 F 73 From: Dashawn Rowe MD PCP: Kristine Davis DO Status: REG CLI Study: Abdomen/Pelvis without Cont Date of Exam: 11/05/13 Exam# [id number] Ordering Dr: Kristine Davis DO STUD Y: CT ABDOMEN AND PELVIS WITHOUT CONTRAST REASON FOR EXAM: Female, 73 years old. Right flank pain. RADIATION DOSAGE (If Supplied By Facility): CTDIvol = ( 19.96 ) mGy, DLP = ( 941.94 ) mGycm TECH NIQUE: Transaxial images were obtained from the dome of the diaphragm to the symphysis pubis without oral contrast, and without intravenous contrast. Sagittal and coronal images were reconstructed. COMPARISON: Comparison is made with prior study dated July 04, 2012. FINDINGS: Minimal right basilar scarring. Coronary artery calcification. Normal liver. Tin y gallstones are seen along the dependent portion of the gallbladder. Normal spleen. Normal pancreas. Normal bilateral adrenal glands. There is a 1.7 cm cyst in the upper midportion of the right ki dney. Normal left kidney. There is a small hiatal hernia. Normal small intestine. Normal colon. The appendix is visualized and appears normal. There is scattered atherosclerotic calcification of t he abdominal aorta, without a demonstrated aneurysm. Normal inferior vena cava. Normal retroperitoneum. Normal urinary bladder. Phleboliths are seen within the pelvis. Calcified right injection gra nulomas. Normal abdominal wall. There are diffuse degenerative changes of the visualized lumbar spine. Levoscoliosis. IMPRESSION: Tiny gallstones in the gallbl adder lumen. Stable right renal cyst. There is no evidence of obstructive uropathy at this time. Electronically Signed: Dashawn Rowe MD at 15:39 EDT Tel [phone], Service supp ort [phone], CC: Kristine Davis DO Welder Assembler: Signed 07-Oct-2013 Kidney and Bladder Result: Comments: See Note; NOTES: [facility] Imaging Services [address] [place] [address] Ultrasound Report MR#: [id number] Acct: [id number] Name: VIRGINIA URRUTIA Rep #: [id number] : 1940 F 72 From: Brook Cummings DO PCP: Kristine Davis DO Status: REG CLI Study: Kidney and Bladder Date of Exam: 10/07/13 Exam# [id number] Ordering Dr: Aquiles Potts STUDY: RENAL ULTRAS OUND - COMPLETE REASON FOR EXAM: Female, 72 years old. Back pain TECHNIQUE: Ultrasound evaluation of the kidneys was performed with real-time and static cho-scale imaging. COMPARISON: Report fro m CT abdomen and pelvis 07/04/2012. The actual images are not currently available. FINDINGS: RIGHT KIDNEY: Normal location of the right kidney, which is normal i n size. The right kidney measures 9.3 x 4.7 x 4.1 cm. cm. There is a normal cortex of the right kidney. The renal cortex measures 1 cm. There are 2 small cysts in the upper pole of the right kidney. Each measure approximately 1 cm. The more caudad cyst demonstrates thin rim calcification. There are no right renal calculi. There is no right hydronephrosis. DISTAL RIGHT URETER: There is non-visu alization of the distal right ureter. There is no demonstrated right ureterovesical junction calculus. There is no demonstrated right ureteral jet. LEFT KIDNEY: Normal location of the left kidney, w hich is normal in size. The left kidney measures 9.7 x 4.4 x 4.9 cm. There is a normal cortex of the left kidney. The renal cortex measures 1 cm. There is no left renal mass or cyst. There are no lef t renal calculi. There is no left hydronephrosis. DISTAL LEFT URETER: There is non-visualization of the distal left ureter. There is no demonstrated left ureterovesical junction calculus. There is no demonstrated left ureteral jet. BLADDER: The urinary bladder was decompressed at the time of examination containing 15 mL fluid. There is a normal wall thickness of the distended urinary bladder. There is no demonstrated mass within the urinary bladder. There are no demonstrated bladder calculi. IMPRESSION: 2 small cysts upper pole of the right kidney. A second cyst contains rim calcifications but is otherwise simple. No acute findings. Electronically Signed: Brook Cummings DO at 23:16 EDT Tel , Service support , CC: Aquiles Potts; Kristine Davis DO Welder Assembler: Signed Immunization Name Dates Details Influenza (3 years and up) on: 17-Dec-2008 Comments: Lot #:[id number] date:mount given:0.5mlRoute: IMSite given:left deltoidGiven by: AYAD Dailey Influenza (3 years and up) on: Dec-2012 Pneumococcal (2 years and up) on: 17-Dec-2007 Comments: Lot #:[id number] date:08/19Amount given:0.5mlRoute: IMSite given:left deltGiven by: AYAD Dailey Family History Unknown Family Member Name Dates Details Family Members In General Comments: HBP, Thyroid disease Status: Active Father Comments: age 89- alzheimers Status: Active mother living 96- lump in breast not treating- Comments: spinal stenosis and macular degeneration- breast cancer Status: Active Social History Name Dates Details Alcohol Use Comments: Occasional alcohol use Status: Active Caffeine Use Comments: 2-3 QD Status: Active Non Smoker/No Tobacco Use Comments: 11/05/10 Status: Active Tobacco use: Former smoker. Comments: 04/13/11, 06/22/11 Status: Active Smoking Status Name Dates Details Former smoker Vital Signs Date Test Result Details [id number] Temperature 97.9 f Comments: Method: Temporal Pulse 103 /min Comments: Pattern: Regular Respiration Rate 16 /min Comments: Pattern: Unlabored BP Systolic 120 mm[Hg] Comments: Patient Position: Sitting; Cuff Location: Left Arm; Cuff Size: Standard BP Diastolic 72 mm[Hg] Comments: Patient Position: Sitting; Cuff Location: Left Arm; Cuff Size: Standard Weight 242 lb Height 66 in Body Mass Index Calculated 39.06 kg/m2 Body Surface Area Calculated 2.17 m2 :25 Temperature 98.2 f Comments: Method: Temporal Pulse 81 /min Comments: Pattern: Regular Respiration Rate 16 /min Comments: Pattern: Unlabored BP Systolic 118 mm[Hg] Comments: Patient Position: Sitting; Cuff Location: Left Arm; Cuff Size: Standard BP Diastolic 62 mm[Hg] Comments: Patient Position: Sitting; Cuff Location: Left Arm; Cuff Size: Standard Weight 233 lb Height 66 in Body Mass Index Calculated 37.61 kg/m2 Body Surface Area Calculated 2.13 m2 :50 Temperature 97.4 f Comments: Method: Temporal Pulse 90 /min Comments: Pattern: Regular Respiration Rate 16 /min Comments: Pattern: Unlabored O2 SAT 96 % Comments: Room air BP Systolic 122 mm[Hg] Comments: Patient Position: Sitting; Cuff Location: Left Arm; Cuff Size: Large BP Diastolic 80 mm[Hg] Comments: Patient Position: Sitting; Cuff Location: Left Arm; Cuff Size: Large Weight 235 lb Height 66 in Body Mass Index Calculated 37.93 kg/m2 Body Surface Area Calculated 2.14 m2 :40 Temperature 97 f Comments: Method: Temporal Pulse 88 /min Comments: Pattern: Regular Respiration Rate 16 /min Comments: Pattern: Unlabored O2 SAT 95 % Comments: Room air BP Systolic 124 mm[Hg] Comments: Patient Position: Sitting; Cuff Location: Left Arm; Cuff Size: Large BP Diastolic 80 mm[Hg] Comments: Patient Position: Sitting; Cuff Location: Left Arm; Cuff Size: Large Weight 228 lb Height 66 in Body Mass Index Calculated 36.8 kg/m2 Body Surface Area Calculated 2.11 m2 :36 Temperature 97.6 f Comments: Method: Temporal Pulse 84 /min Comments: Pattern: Regular Respiration Rate 16 /min Comments: Pattern: Unlabored O2 SAT 95 % Comments: Room air BP Systolic 124 mm[Hg] Comments: Patient Position: Sitting; Cuff Location: Left Arm; Cuff Size: Large BP Diastolic 66 mm[Hg] Comments: Patient Position: Sitting; Cuff Location: Left Arm; Cuff Size: Large Weight 230 lb Height 66 in Body Mass Index Calculated 37.12 kg/m2 Body Surface Area Calculated 2.12 m2 :34 Temperature 97.6 f Comments: Method: Temporal Pulse 92 /min Comments: Pattern: Regular Respiration Rate 16 /min Comments: Pattern: Unlabored O2 SAT 96 % Comments: Room air BP Systolic 136 mm[Hg] Comments: Patient Position: Sitting; Cuff Location: Left Arm; Cuff Size: Standard BP Diastolic 80 mm[Hg] Comments: Patient Position: Sitting; Cuff Location: Left Arm; Cuff Size: Standard Weight 230 lb Height 66 in Body Mass Index Calculated 37.12 kg/m2 Body Surface Area Calculated 2.12 m2 :54 Temperature 97.9 f Comments: Method: Temporal Pulse 86 /min Comments: Pattern: Regular Respiration Rate 16 /min Comments: Pattern: Unlabored O2 SAT 96 % Comments: Room air BP Systolic 140 mm[Hg] Comments: Patient Position: Sitting; Cuff Location: Left Arm; Cuff Size: Standard BP Diastolic 82 mm[Hg] Comments: Patient Position: Sitting; Cuff Location: Left Arm; Cuff Size: Standard Weight 230 lb Height 66 in Body Mass Index Calculated 37.12 kg/m2 Body Surface Area Calculated 2.12 m2 :36 Comments: in knee and back Temperature 98 f Pulse 105 /min Comments: Pattern: Regular Respiration Rate 15 /min Comments: Pattern: Unlabored O2 SAT 98 % Comments: Room air BP Systolic 132 mm[Hg] Comments: Patient Position: Sitting; Cuff Location: Left Arm; Cuff Size: Standard BP Diastolic 80 mm[Hg] Comments: Patient Position: Sitting; Cuff Location: Left Arm; Cuff Size: Standard Weight 230 lb Height 66 in Body Mass Index Calculated 37.12 kg/m2 Body Surface Area Calculated 2.12 m2 :24 Temperature 98.6 f Comments: Method: Temporal Pulse 88 /min Comments: Pattern: Regular Respiration Rate 16 /min Comments: Pattern: Unlabored O2 SAT 98 % Comments: Room air BP Systolic 122 mm[Hg] Comments: Patient Position: Sitting; Cuff Location: Left Arm; Cuff Size: Large BP Diastolic 74 mm[Hg] Comments: Patient Position: Sitting; Cuff Location: Left Arm; Cuff Size: Large Weight 220 lb Height 66 in Body Mass Index Calculated 35.51 kg/m2 Body Surface Area Calculated 2.08 m2 [id number] Temperature 97.4 f Comments: Method: Temporal Pulse 108 /min Comments: Pattern: Regular Respiration Rate 16 /min Comments: Pattern: Unlabored BP Systolic 122 mm[Hg] Comments: Patient Position: Sitting; Cuff Location: Left Arm; Cuff Size: Large BP Diastolic 82 mm[Hg] Comments: Patient Position: Sitting; Cuff Location: Left Arm; Cuff Size: Large Weight 218 lb Height 66 in Body Mass Index Calculated 35.19 kg/m2 Body Surface Area Calculated 2.07 m2 :11 Temperature 98.1 f Comments: Method: Temporal Pulse 90 /min Comments: Pattern: Regular Respiration Rate 17 /min Comments: Pattern: Unlabored O2 SAT 96 % Comments: Room air BP Systolic 128 mm[Hg] Comments: Patient Position: Sitting; Cuff Location: Left Arm; Cuff Size: Large BP Diastolic 88 mm[Hg] Comments: Patient Position: Sitting; Cuff Location: Left Arm; Cuff Size: Large Weight 218 lb Height 66 in Body Mass Index Calculated 35.19 kg/m2 Body Surface Area Calculated 2.07 m2 :19 Temperature 97.6 f Comments: Method: Temporal Pulse 88 /min Comments: Pattern: Regular Respiration Rate 17 /min Comments: Pattern: Unlabored BP Systolic 120 mm[Hg] Comments: Patient Position: Sitting; Cuff Location: Left Arm; Cuff Size: Large BP Diastolic 80 mm[Hg] Comments: Patient Position: Sitting; Cuff Location: Left Arm; Cuff Size: Large Weight 221 lb Height 66 in Body Mass Index Calculated 35.67 kg/m2 Body Surface Area Calculated 2.09 m2 :08 Temperature 99.1 f Comments: Method: Oral Pulse 92 /min Comments: Pattern: Regular Respiration Rate 17 /min Comments: Pattern: Unlabored O2 SAT 96 % Comments: Room air BP Systolic 102 mm[Hg] Comments: Patient Position: Sitting; Cuff Location: Left Arm; Cuff Size: Large BP Diastolic 74 mm[Hg] Comments: Patient Position: Sitting; Cuff Location: Left Arm; Cuff Size: Large Weight 222 lb Height 66 in Body Mass Index Calculated 35.83 kg/m2 Body Surface Area Calculated 2.09 m2 :20 Temperature 98.8 f Pulse 88 /min Comments: Pattern: Regular Respiration Rate 16 /min Comments: Pattern: Unlabored BP Systolic 124 mm[Hg] Comments: Patient Position: Sitting; Cuff Location: Left Arm; Cuff Size: Large BP Diastolic 70 mm[Hg] Comments: Patient Position: Sitting; Cuff Location: Left Arm; Cuff Size: Large Weight 219 lb Height 66 in Body Mass Index Calculated 35.35 kg/m2 Body Surface Area Calculated 2.08 m2 :08 Temperature 98.6 f Pulse 102 /min Comments: Pattern: Regular Respiration Rate 16 /min Comments: Pattern: Unlabored BP Systolic 110 mm[Hg] Comments: Patient Position: Sitting; Cuff Location: Left Arm; Cuff Size: Large BP Diastolic 62 mm[Hg] Comments: Patient Position: Sitting; Cuff Location: Left Arm; Cuff Size: Large Weight 217 lb Height 66 in Body Mass Index Calculated 35.02 kg/m2 Body Surface Area Calculated 2.07 m2 :05 Temperature 97 f Comments: Method: Oral Pulse 76 /min Comments: Pattern: Regular Respiration Rate 15 /min BP Systolic 122 mm[Hg] Comments: Patient Position: Sitting; Cuff Location: Left Arm; Cuff Size: Standard BP Diastolic 72 mm[Hg] Comments: Patient Position: Sitting; Cuff Location: Left Arm; Cuff Size: Standard Weight 218 lb Height 66 in Body Mass Index Calculated 35.19 kg/m2 Body Surface Area Calculated 2.07 m2 :31 Temperature 97.6 f Comments: Method: Oral Pulse 84 /min Comments: Pattern: Regular Respiration Rate 17 /min Comments: Pattern: Unlabored O2 SAT 98 % Comments: Room air BP Systolic 118 mm[Hg] Comments: Patient Position: Sitting; Cuff Location: Left Arm; Cuff Size: Standard BP Diastolic 72 mm[Hg] Comments: Patient Position: Sitting; Cuff Location: Left Arm; Cuff Size: Standard Weight 218 lb Height 66 in Body Mass Index Calculated 35.19 kg/m2 Body Surface Area Calculated 2.07 m2 :46 Temperature 97.6 f Comments: Method: Oral Pulse 70 /min Comments: Pattern: Regular Respiration Rate 16 /min O2 SAT 96 % Comments: Room air BP Systolic 110 mm[Hg] Comments: Patient Position: Sitting; Cuff Location: Left Arm; Cuff Size: Standard BP Diastolic 68 mm[Hg] Comments: Patient Position: Sitting; Cuff Location: Left Arm; Cuff Size: Standard Weight 218 lb Height 66 in Body Mass Index Calculated 35.19 kg/m2 Body Surface Area Calculated 2.07 m2 :09 Temperature 96.1 f Pulse 72 /min Comments: Pattern: Regular Respiration Rate 16 /min Comments: Pattern: Unlabored BP Systolic 112 mm[Hg] Comments: Patient Position: Sitting; Cuff Location: Left Arm; Cuff Size: Large BP Diastolic 72 mm[Hg] Comments: Patient Position: Sitting; Cuff Location: Left Arm; Cuff Size: Large Weight 218 lb Height 66 in Body Mass Index Calculated 35.19 kg/m2 Body Surface Area Calculated 2.07 m2 :12 Temperature 97.6 f Pulse 92 /min Comments: Pattern: Regular Respiration Rate 16 /min Comments: Pattern: Unlabored BP Systolic 128 mm[Hg] Comments: Patient Position: Sitting; Cuff Location: Left Arm; Cuff Size: Large BP Diastolic 84 mm[Hg] Comments: Patient Position: Sitting; Cuff Location: Left Arm; Cuff Size: Large Weight 226 lb Height 66 in Body Mass Index Calculated 36.48 kg/m2 Body Surface Area Calculated 2.11 m2 :56 Pulse 103 /min Comments: Pattern: Regular Respiration Rate 16 /min Comments: Pattern: Unlabored O2 SAT 99 % Comments: Room air BP Systolic 118 mm[Hg] Comments: Patient Position: Sitting; Cuff Location: Left Arm; Cuff Size: Standard BP Diastolic 70 mm[Hg] Comments: Patient Position: Sitting; Cuff Location: Left Arm; Cuff Size: Standard Weight 229 lb Height 66 in Body Mass Index Calculated 36.96 kg/m2 Body Surface Area Calculated 2.12 m2 :16 Temperature 98.4 f Pulse 92 /min Comments: Pattern: Regular Respiration Rate 18 /min Comments: Pattern: Unlabored BP Systolic 120 mm[Hg] Comments: Patient Position: Sitting; Cuff Location: Left Arm; Cuff Size: Large BP Diastolic 80 mm[Hg] Comments: Patient Position: Sitting; Cuff Location: Left Arm; Cuff Size: Large Weight 229 lb Height 66 in Body Mass Index Calculated 36.96 kg/m2 Body Surface Area Calculated 2.12 m2 :17 Temperature 98.3 f Comments: Method: Oral Pulse 64 /min Comments: Pattern: Regular Respiration Rate 18 /min Comments: Pattern: Unlabored BP Systolic 124 mm[Hg] Comments: Patient Position: Sitting; Cuff Location: Left Arm; Cuff Size: Large BP Diastolic 68 mm[Hg] Comments: Patient Position: Sitting; Cuff Location: Left Arm; Cuff Size: Large Weight 236 lb Height 66 in Body Mass Index Calculated 38.09 kg/m2 Body Surface Area Calculated 2.15 m2 :14 Temperature 98 f Pulse 74 /min Comments: Pattern: Regular Respiration Rate 16 /min Comments: Pattern: Unlabored BP Systolic 134 mm[Hg] Comments: Patient Position: Sitting; Cuff Location: Left Arm; Cuff Size: Large BP Diastolic 86 mm[Hg] Comments: Patient Position: Sitting; Cuff Location: Left Arm; Cuff Size: Large Weight 237 lb Height 66 in Body Mass Index Calculated 38.25 kg/m2 Body Surface Area Calculated 2.15 m2 :38 Temperature 97.5 f Pulse 108 /min Comments: Pattern: Regular Respiration Rate 18 /min Comments: Pattern: Unlabored BP Systolic 120 mm[Hg] Comments: Patient Position: Sitting; Cuff Location: Left Arm; Cuff Size: Large BP Diastolic 84 mm[Hg] Comments: Patient Position: Sitting; Cuff Location: Left Arm; Cuff Size: Large Weight 234 lb Height 66 in Body Mass Index Calculated 37.77 kg/m2 Body Surface Area Calculated 2.14 m2 :28 Temperature 96.7 f Comments: Method: Oral Pulse 109 /min Comments: Pattern: Regular Respiration Rate 16 /min Comments: Pattern: Unlabored BP Systolic 130 mm[Hg] Comments: Patient Position: Sitting; Cuff Location: Left Arm; Cuff Size: Standard BP Diastolic 78 mm[Hg] Comments: Patient Position: Sitting; Cuff Location: Left Arm; Cuff Size: Standard Weight 234 lb Height 66 in Body Mass Index Calculated 37.77 kg/m2 Body Surface Area Calculated 2.14 m2 :05 Temperature 98 f Pulse 100 /min Comments: Pattern: Regular Respiration Rate 16 /min Comments: Pattern: Unlabored BP Systolic 128 mm[Hg] Comments: Patient Position: Sitting; Cuff Location: Right Arm; Cuff Size: Large BP Diastolic 74 mm[Hg] Comments: Patient Position: Sitting; Cuff Location: Right Arm; Cuff Size: Large Weight 234 lb Height 66 in Body Mass Index Calculated 37.77 kg/m2 Body Surface Area Calculated 2.14 m2 :58 Temperature 97.8 f Pulse 84 /min Comments: Pattern: Regular Respiration Rate 18 /min Comments: Pattern: Unlabored BP Systolic 126 mm[Hg] Comments: Patient Position: Sitting; Cuff Location: Left Arm; Cuff Size: Large BP Diastolic 80 mm[Hg] Comments: Patient Position: Sitting; Cuff Location: Left Arm; Cuff Size: Large Weight 232 lb Height 66 in Body Mass Index Calculated 37.45 kg/m2 Body Surface Area Calculated 2.13 m2 :12 Temperature 98.2 f Pulse 92 /min Comments: Pattern: Regular Respiration Rate 16 /min Comments: Pattern: Unlabored BP Systolic 114 mm[Hg] Comments: Patient Position: Sitting; Cuff Location: Left Arm; Cuff Size: Large BP Diastolic 70 mm[Hg] Comments: Patient Position: Sitting; Cuff Location: Left Arm; Cuff Size: Large Weight 231 lb Height 66 in Body Mass Index Calculated 37.28 kg/m2 Body Surface Area Calculated 2.13 m2 :07 Temperature 98.6 f Comments: Method: Oral Pulse 90 /min Comments: Pattern: Regular Respiration Rate 17 /min Comments: Pattern: Unlabored BP Systolic 128 mm[Hg] Comments: Patient Position: Sitting; Cuff Location: Left Arm; Cuff Size: Standard BP Diastolic 80 mm[Hg] Comments: Patient Position: Sitting; Cuff Location: Left Arm; Cuff Size: Standard Weight 231 lb Height 66 in Body Mass Index Calculated 37.28 kg/m2 Body Surface Area Calculated 2.13 m2 :24 Temperature 98.1 f Pulse 100 /min Comments: Pattern: Regular Respiration Rate 16 /min Comments: Pattern: Unlabored BP Systolic 102 mm[Hg] Comments: Patient Position: Sitting; Cuff Location: Left Arm; Cuff Size: Large BP Diastolic 74 mm[Hg] Comments: Patient Position: Sitting; Cuff Location: Left Arm; Cuff Size: Large Weight 231 lb Height 66 in Body Mass Index Calculated 37.28 kg/m2 Body Surface Area Calculated 2.13 m2 :22 Comments: rechecked BP 150/104 Temperature 98.9 f Pulse 100 /min Comments: Pattern: Regular Respiration Rate 18 /min Comments: Pattern: Unlabored BP Systolic 158 mm[Hg] Comments: Patient Position: Sitting; Cuff Location: Left Arm; Cuff Size: Large BP Diastolic 106 mm[Hg] Comments: Patient Position: Sitting; Cuff Location: Left Arm; Cuff Size: Large Weight 228 lb Height 66 in Body Mass Index Calculated 36.8 kg/m2 Body Surface Area Calculated 2.11 m2 :53 Pulse 76 /min Comments: Pattern: Regular Respiration Rate 17 /min Comments: Pattern: Unlabored BP Systolic 120 mm[Hg] Comments: Patient Position: Sitting; Cuff Location: Left Arm; Cuff Size: Standard BP Diastolic 84 mm[Hg] Comments: Patient Position: Sitting; Cuff Location: Left Arm; Cuff Size: Standard :17 Temperature 98.6 f Pulse 88 /min Comments: Pattern: Regular Respiration Rate 16 /min Comments: Pattern: Unlabored BP Systolic 114 mm[Hg] Comments: Patient Position: Sitting; Cuff Location: Left Arm; Cuff Size: Large BP Diastolic 92 mm[Hg] Comments: Patient Position: Sitting; Cuff Location: Left Arm; Cuff Size: Large Weight 225 lb Height 66 in Body Mass Index Calculated 36.32 kg/m2 Body Surface Area Calculated 2.1 m2 :47 Pulse 70 /min Comments: Pattern: Regular Respiration Rate 16 /min Comments: Pattern: Unlabored Weight 222 lb Height 66.25 in Body Mass Index Calculated 35.56 kg/m2 Body Surface Area Calculated 2.1 m2 :43 Temperature 98.1 f Pulse 84 /min Comments: Pattern: Regular Respiration Rate 16 /min Comments: Pattern: Unlabored BP Systolic 132 mm[Hg] Comments: Patient Position: Sitting; Cuff Location: Left Arm; Cuff Size: Large BP Diastolic 80 mm[Hg] Comments: Patient Position: Sitting; Cuff Location: Left Arm; Cuff Size: Large Weight 222 lb Height 66.25 in Body Mass Index Calculated 35.56 kg/m2 Body Surface Area Calculated 2.1 m2 :43 Temperature 98.9 f Pulse 60 /min Comments: Pattern: Regular Respiration Rate 16 /min Comments: Pattern: Unlabored BP Systolic 160 mm[Hg] Comments: Patient Position: Sitting; Cuff Location: Left Arm; Cuff Size: Large BP Diastolic 90 mm[Hg] Comments: Patient Position: Sitting; Cuff Location: Left Arm; Cuff Size: Large Weight 226 lb :53 Temperature 98.7 f Pulse 88 /min Comments: Pattern: Regular Respiration Rate 18 /min Comments: Pattern: Unlabored BP Systolic 158 mm[Hg] Comments: Patient Position: Sitting; Cuff Location: Left Arm; Cuff Size: Standard BP Diastolic 112 mm[Hg] Comments: Patient Position: Sitting; Cuff Location: Left Arm; Cuff Size: Standard Weight 233 lb :19 Pulse 64 /min Comments: Pattern: Regular Respiration Rate 18 /min Comments: Pattern: Unlabored BP Systolic 138 mm[Hg] Comments: Patient Position: Sitting; Cuff Location: Left Arm; Cuff Size: Standard BP Diastolic 90 mm[Hg] Comments: Patient Position: Sitting; Cuff Location: Left Arm; Cuff Size: Standard Weight 232 lb :48 BP Systolic 138 mm[Hg] Comments: Patient Position: Sitting BP Diastolic 92 mm[Hg] Comments: Patient Position: Sitting :48 Pulse 84 /min Comments: Pattern: Regular Respiration Rate 18 /min Comments: Pattern: Unlabored BP Systolic 146 mm[Hg] Comments: Patient Position: Sitting; Cuff Location: Right Arm; Cuff Size: Standard BP Diastolic 100 mm[Hg] Comments: Patient Position: Sitting; Cuff Location: Right Arm; Cuff Size: Standard Weight 232 lb :09 Temperature 98.5 f Pulse 88 /min Comments: Pattern: Regular Respiration Rate 18 /min Comments: Pattern: Unlabored BP Systolic 132 mm[Hg] Comments: Patient Position: Sitting; Cuff Location: Left Arm; Cuff Size: Standard BP Diastolic 84 mm[Hg] Comments: Patient Position: Sitting; Cuff Location: Left Arm; Cuff Size: Standard Weight 231 lb Height 66.25 in Body Mass Index Calculated 37 kg/m2 Body Surface Area Calculated 2.13 m2 :55 Pulse 72 /min Comments: Pattern: Regular Respiration Rate 20 /min Comments: Pattern: Unlabored BP Systolic 142 mm[Hg] Comments: Patient Position: Sitting; Cuff Location: Left Arm; Cuff Size: Large BP Diastolic 78 mm[Hg] Comments: Patient Position: Sitting; Cuff Location: Left Arm; Cuff Size: Large Weight 229 lb :07 Temperature 97.5 f Pulse 88 /min Comments: Pattern: Regular Respiration Rate 16 /min Comments: Pattern: Unlabored BP Systolic 124 mm[Hg] Comments: Patient Position: Sitting; Cuff Location: Right Arm; Cuff Size: Standard BP Diastolic 78 mm[Hg] Comments: Patient Position: Sitting; Cuff Location: Right Arm; Cuff Size: Standard Weight 229 lb :56 Temperature 98.5 f Comments: Method: Undefined Pulse 80 /min Comments: Pattern: Regular Respiration Rate 18 /min Comments: Pattern: Undefined BP Systolic 134 mm[Hg] Comments: Patient Position: Sitting; Cuff Location: Right Arm; Cuff Size: Standard BP Diastolic 82 mm[Hg] Comments: Patient Position: Sitting; Cuff Location: Right Arm; Cuff Size: Standard Weight 229 lb Height 0 in Head Circumference 0.00 cm :06 Temperature 97.7 f Comments: Method: Undefined Pulse 100 /min Comments: Pattern: Regular Respiration Rate 16 /min Comments: Pattern: Undefined BP Systolic 110 mm[Hg] Comments: Patient Position: Sitting; Cuff Location: Right Arm; Cuff Size: Standard BP Diastolic 70 mm[Hg] Comments: Patient Position: Sitting; Cuff Location: Right Arm; Cuff Size: Standard Weight 0 lb Height 0 in Head Circumference 0.00 cm :49 Temperature 97.5 f Comments: Method: Oral Pulse 82 /min Comments: Pattern: Regular Respiration Rate 19 /min Comments: Pattern: Unlabored BP Systolic 128 mm[Hg] Comments: Patient Position: Sitting; Cuff Location: Left Arm; Cuff Size: Standard BP Diastolic 80 mm[Hg] Comments: Patient Position: Sitting; Cuff Location: Left Arm; Cuff Size: Standard Weight 227 lb Height 0 in Head Circumference 0.00 cm :15 Temperature 96.3 f Comments: Method: Undefined Pulse 88 /min Comments: Pattern: Regular Respiration Rate 18 /min Comments: Pattern: Undefined BP Systolic 136 mm[Hg] Comments: Patient Position: Sitting; Cuff Location: Right Arm; Cuff Size: Large BP Diastolic 80 mm[Hg] Comments: Patient Position: Sitting; Cuff Location: Right Arm; Cuff Size: Large Weight 227 lb Height 0 in Head Circumference 0.00 cm :49 Temperature 97.5 f Comments: Method: Undefined Pulse 84 /min Comments: Pattern: Regular Respiration Rate 18 /min Comments: Pattern: Undefined BP Systolic 130 mm[Hg] Comments: Patient Position: Sitting; Cuff Location: Right Arm; Cuff Size: Standard BP Diastolic 92 mm[Hg] Comments: Patient Position: Sitting; Cuff Location: Right Arm; Cuff Size: Standard Weight 227 lb Height 0 in Head Circumference 0.00 cm :22 Temperature 98 f Comments: Method: Undefined Pulse 76 /min Comments: Pattern: Regular Respiration Rate 16 /min Comments: Pattern: Undefined BP Systolic 116 mm[Hg] Comments: Patient Position: Sitting; Cuff Location: Right Arm; Cuff Size: Standard BP Diastolic 80 mm[Hg] Comments: Patient Position: Sitting; Cuff Location: Right Arm; Cuff Size: Standard Weight 221 lb Height 67 in Body Mass Index Calculated 34.61 kg/m2 Body Surface Area Calculated 2.11 m2 Head Circumference 0.00 cm :56 Temperature 97.8 f Comments: Method: Undefined Pulse 92 /min Comments: Pattern: Regular Respiration Rate 18 /min Comments: Pattern: Undefined BP Systolic 136 mm[Hg] Comments: Patient Position: Sitting; Cuff Location: Right Arm; Cuff Size: Standard BP Diastolic 90 mm[Hg] Comments: Patient Position: Sitting; Cuff Location: Right Arm; Cuff Size: Standard Weight 0 lb Height 0 in Head Circumference 0.00 cm :36 Temperature 97 f Comments: Method: Oral Pulse 92 /min Comments: Pattern: Regular Respiration Rate 16 /min Comments: Pattern: Unlabored BP Systolic 140 mm[Hg] Comments: Patient Position: Sitting; Cuff Location: Right Arm; Cuff Size: Standard BP Diastolic 78 mm[Hg] Comments: Patient Position: Sitting; Cuff Location: Right Arm; Cuff Size: Standard Weight 0 lb Height 0 in Head Circumference 0.00 cm :47 Temperature 98 f Comments: Method: Oral Pulse 84 /min Comments: Pattern: Regular Respiration Rate 18 /min Comments: Pattern: Unlabored BP Systolic 162 mm[Hg] Comments: Patient Position: Sitting; Cuff Location: Right Arm; Cuff Size: Large BP Diastolic 98 mm[Hg] Comments: Patient Position: Sitting; Cuff Location: Right Arm; Cuff Size: Large Weight 223.5 lb Height 0 in Head Circumference 0.00 cm :47 Temperature 98.4 f Comments: Method: Oral Pulse 92 /min Comments: Pattern: Regular Respiration Rate 16 /min Comments: Pattern: Unlabored BP Systolic 116 mm[Hg] Comments: Patient Position: Sitting; Cuff Location: Left Arm; Cuff Size: Standard BP Diastolic 80 mm[Hg] Comments: Patient Position: Sitting; Cuff Location: Left Arm; Cuff Size: Standard Weight 0 lb Height 0 in Head Circumference 0.00 cm :01 Temperature 98.3 f Comments: Method: Oral Pulse 72 /min Comments: Pattern: Regular Respiration Rate 20 /min Comments: Pattern: Unlabored BP Systolic 120 mm[Hg] Comments: Patient Position: Sitting; Cuff Location: Left Arm; Cuff Size: Large BP Diastolic 70 mm[Hg] Comments: Patient Position: Sitting; Cuff Location: Left Arm; Cuff Size: Large Weight 0 lb Height 0 in Head Circumference 0.00 cm :02 Temperature 98 f Comments: Method: Oral Pulse 84 /min Comments: Pattern: Regular Respiration Rate 20 /min Comments: Pattern: Unlabored BP Systolic 122 mm[Hg] Comments: Patient Position: Sitting; Cuff Location: Right Arm; Cuff Size: Standard BP Diastolic 78 mm[Hg] Comments: Patient Position: Sitting; Cuff Location: Right Arm; Cuff Size: Standard Weight 0 lb Height 0 in Head Circumference 0.00 cm :20 Temperature 98.8 f Comments: Method: Oral Pulse 86 /min Comments: Pattern: Regular Respiration Rate 20 /min Comments: Pattern: Unlabored BP Systolic 122 mm[Hg] Comments: Patient Position: Sitting; Cuff Location: Left Arm; Cuff Size: Standard BP Diastolic 84 mm[Hg] Comments: Patient Position: Sitting; Cuff Location: Left Arm; Cuff Size: Standard Weight 210 lb Height 0 in Head Circumference 0.00 cm Results Date Description Value Details [id number]-[id number]:12 ANGTENSIN 1-CONVRT ENZYM Comments: PATIENT NOT FASTINGPERFORMED BY: [employer] [facility] [id number] BY: Availendar[address] [id number] ([id number]) YOSEF 30 U/L (Normal) Range: 14-82 54-Wex-536738:12 CCP ANTIBODY (91745) Comments: PATIENT NOT FASTINGPERFORMED BY: [employer] [facility] [id number] BY: Availendar[address] [id number] CCP Antibodies IgG/IgA 8 {units} (Normal) Range: 0-19 Comments: Negative <20 Weak positive 20 - 39 Moderate positive 40 - 59 Strong positive >59 75-Ket-955233:12 CAROL (ANTINUCLEAR ANTIBODY) Comments: PATIENT NOT FASTINGPERFORMED BY: [employer] [facility] [id number] BY: Availendar[address] [id number] ([id number]) CAROL Direct Negative (Normal) 17-Yco-227661:12 RHEUMATOID FACTOR-QUANT Comments: PATIENT NOT FASTINGPERFORMED BY: [address] [id number] BY: [address] [id number] ([id number]) RA Latex Turbid. <10.0 {IU/mL} (Normal) Range: 0.0-13.9 05-Yaz-498029:12 SED RATE ERYTHROCYTE Comments: PATIENT NOT FASTINGPERFORMED BY: [address] [id number] BY: [address] [id number] ([id number]) Sedimentation Rate-Westergren 15 mm/h (Normal) Range: 0-40 49-Yff-183654:12 C-REACTIVE PROTEIN Comments: PATIENT NOT FASTINGPERFORMED BY: [place] [id number] [facility] [id number] BY: [address] [id number] ([id number]) C-Reactive Protein, Quant 2.9 mg/L (Normal) Range: 0.0-4.9 53-Xyk-218457:12 CBC, PLATELETS & AUT DIFF Comments: PATIENT NOT FASTINGPERFORMED BY: [address] [id number] BY: [address] [id number] ([id number]) Immature Grans (Abs) 0.0 {x10E3/uL} (Normal) Range: 0.0-0.1 Immature Granulocytes 0 % (Normal) Baso (Absolute) 0.1 {x10E3/uL} (Normal) Range: 0.0-0.2 Eos (Absolute) 0.2 {x10E3/uL} (Normal) Range: 0.0-0.4 Monocytes(Absolute) 0.7 {x10E3/uL} (Normal) Range: 0.1-0.9 Lymphs (Absolute) 1.9 {x10E3/uL} (Normal) Range: 0.7-3.1 Neutrophils (Absolute) 4.9 {x10E3/uL} (Normal) Range: 1.4-7.0 Basos 1 % (Normal) Eos 2 % (Normal) Monocytes 9 % (Normal) Lymphs 24 % (Normal) Neutrophils 64 % (Normal) Platelets 303 {x10E3/uL} (Normal) Range: 150-379 RDW 13.9 % (Normal) Range: 12.3-15.4 MCHC 33.5 g/dL (Normal) Range: 31.5-35.7 MCH 28.3 pg (Normal) Range: 26.6-33.0 MCV 85 fL (Normal) Range: 79-97 Hematocrit 40.9 % (Normal) Range: 34.0-46.6 Hemoglobin 13.7 g/dL (Normal) Range: 11.1-15.9 RBC 4.84 {x10E6/uL} (Normal) Range: 3.77-5.28 WBC 7.8 {x10E3/uL} (Normal) Range: 3.4-10.8 87-Sql-008486:12 VITAMIN B-12 Comments: PATIENT NOT FASTINGPERFORMED BY: [employer] [facility] [id number] BY: IngagePatient[address] [id number] (CYANOCOBALAMIN) (26054) Vitamin B12 579 pg/mL (Normal) Range: 232-1245 08-Hkw-77688:31 LIPID PANEL (73942) Comments: PATIENT WAS FASTINGPERFORMED BY: mktgSaint Clare's Hospital at DoverFaqmri1517 [facility] [id number]; appt 01/02 LDL/HDL Ratio 1.9 {ratio} (Normal) Range: 0.0-3.2 Comments: LDL/HDL Ratio Men Women 1/2 Avg.Risk 1.0 1.5 Av g.Risk 3.6 3.2 2X Avg.Risk 6.2 5.0 3X Avg.Risk 8.0 6.1 LDL Cholesterol Calc 139 mg/dL (Abnormal) Range: 0-99 VLDL Cholesterol Meliton 29 mg/dL (Normal) Range: 5-40 HDL Cholesterol 72 mg/dL (Normal) Comments: Effective January 01, 2018, HDL Cholesterol reference interval will be changing to: Male Female 40 - [id number] 50 - [id number] Triglycerides 145 mg/dL (Normal) Range: 0-149 Cholesterol, Total 240 mg/dL (Abnormal) Range: 100-199 18-Dui-38470:31 METABOLIC PANEL, COMPREHENSIVE Comments: PATIENT WAS FASTINGPERFORMED BY: LISBETH [employer]70 [facility]ivaIndustrious KidEC[facility] [id number] (81029) ALT (SGPT) 16 [iU]/L (Normal) Range: 0-32 AST (SGOT) 19 [iU]/L (Normal) Range: 0-40 Alkaline Phosphatase 112 [iU]/L (Normal) Range: 39-117 Bilirubin, Total 0.4 mg/dL (Normal) Range: 0.0-1.2 A/G Ratio 1.7 (Normal) Range: 1.2-2.2 Globulin, Total 2.5 g/dL (Normal) Range: 1.5-4.5 Albumin 4.3 g/dL (Normal) Range: 3.5-4.8 Protein, Total 6.8 g/dL (Normal) Range: 6.0-8.5 Calcium 10.0 mg/dL (Normal) Range: 8.7-10.3 Carbon Dioxide, Total 22 mmol/L (Normal) Range: 20-29 Chloride 105 mmol/L (Normal) Range: 96-106 Potassium 4.4 mmol/L (Normal) Range: 3.5-5.2 Sodium 145 mmol/L (Abnormal) Range: 134-144 BUN/Creatinine Ratio 15 (Normal) Range: 12-28 eGFR If Africn Am 46 mL/min/1.73 (Abnormal) eGFR If NonAfricn Am 40 mL/min/1.73 (Abnormal) Creatinine 1.31 mg/dL (Abnormal) Range: 0.57-1.00 BUN 19 mg/dL (Normal) Range: 8-27 Glucose 98 mg/dL (Normal) Range: 65-99 43-Pke-763787:13 METABOLIC PANEL, BASIC Comments: PATIENT NOT FASTINGPERFORMED BY: LISBETH [employer]6370 [facility] KidEC[facility] [id number]; review on 01/02 ([id number]) Calcium 9.9 mg/dL (Normal) Range: 8.7-10.3 Carbon Dioxide, Total 21 mmol/L (Normal) Range: 20-29 Chloride 105 mmol/L (Normal) Range: 96-106 Potassium 4.6 mmol/L (Normal) Range: 3.5-5.2 Sodium 144 mmol/L (Normal) Range: 134-144 BUN/Creatinine Ratio 16 (Normal) Range: 12-28 eGFR If Africn Am 49 mL/min/1.73 (Abnormal) eGFR If NonAfricn Am 42 mL/min/1.73 (Abnormal) Creatinine 1.25 mg/dL (Abnormal) Range: 0.57-1.00 BUN 20 mg/dL (Normal) Range: 8-27 Glucose 98 mg/dL (Normal) Range: 65-99 :38 GGT (Gamma Glutamyl Comments: PATIENT NOT FASTINGPERFORMED BY: IngagePatient Hjhwfd1042 [place] [id number] Transferase) (11586) GGT 20 [iU]/L (Normal) Range: 0-60 42-Pfl-154792:38 Alkaline Phosphatase (94838) Comments: PATIENT NOT FASTINGPERFORMED BY: IngagePatient Axjonr4344 [place] [id number] Alkaline Phosphatase 131 [iU]/L (Abnormal) Range: 39-117 12-Yfc-562325:38 THYROXINE FREE (48080) Comments: PATIENT NOT FASTINGPERFORMED BY: IngagePatient Orukrc7202 [place] [id number] T4,Free(Direct) 1.92 ng/dL (Abnormal) Range: 0.82-1.77 99-Vxj-461990:38 FREE TRIDOTHYRONINE (T3) (07488) Comments: PATIENT NOT FASTINGPERFORMED BY: IngagePatient Fpumcx3569 [place] [id number] Triiodothyronine,Free,Serum 2.4 pg/mL (Normal) Range: 2.0-4.4 48-Mwf-007118:38 VITAMIN B-12 (CYANOCOBALAMIN) Comments: PATIENT NOT FASTINGPERFORMED BY: IngagePatient Rinlfn9834 [facility] [id number] (93329) Vitamin B12 665 pg/mL (Normal) Range: 232-1245 90-Kpa-22184:06 VITAMIN B-12 (CYANOCOBALAMIN) Comments: PATIENT NOT FASTINGPERFORMED BY: [facility]6370 [facility] [id number] (54567) Vitamin B12 1301 pg/mL (Abnormal) Range: 232-1245 8-Eao-324704:25 Metabolic Panel, Comprehensive Comments: PATIENT NOT FASTINGPERFORMED BY: [facility]6370 [facility] [id number]; review on 08/28 (63387) ALT (SGPT) 10 [iU]/L (Normal) Range: 0-32 AST (SGOT) 13 [iU]/L (Normal) Range: 0-40 Alkaline Phosphatase 126 [iU]/L (Abnormal) Range: 39-117 Bilirubin, Total 0.5 mg/dL (Normal) Range: 0.0-1.2 A/G Ratio 1.6 (Normal) Range: 1.2-2.2 Globulin, Total 2.8 g/dL (Normal) Range: 1.5-4.5 Albumin 4.5 g/dL (Normal) Range: 3.5-4.8 Protein, Total 7.3 g/dL (Normal) Range: 6.0-8.5 Calcium 9.8 mg/dL (Normal) Range: 8.7-10.3 Carbon Dioxide, Total 22 mmol/L (Normal) Range: 18-29 Comments: Effective August 21, 2017 Carbon Dioxide, Total reference interval will be changing to: Age Male Female 0 days - 30 days 16 - 16 - 29 31 days - 1 year 15 - 25 15 - 25 2 years - 5 years 17 - 26 17 - 26 6 y ears - 12 years 19 - 27 19 - 27 >12 years - 29 20 - 29 Chloride 103 mmol/L (Normal) Range: 96-106 Potassium 4.6 mmol/L (Normal) Range: 3.5-5.2 Sodium 143 mmol/L (Normal) Range: 134-144 BUN/Creatinine Ratio 21 (Normal) Range: 12-28 eGFR If Africn Am 46 mL/min/1.73 (Abnormal) eGFR If NonAfricn Am 40 mL/min/1.73 (Abnormal) Creatinine 1.31 mg/dL (Abnormal) Range: 0.57-1.00 BUN 28 mg/dL (Abnormal) Range: 8-27 Glucose 84 mg/dL (Normal) Range: 65-99 9-Kvd-710035:25 CBC WITH MANUAL DIFF (77987) Comments: PATIENT NOT FASTINGPERFORMED BY: [employer]6370 [facility] [id number] Immature Grans (Abs) 0.0 {x10E3/uL} (Normal) Range: 0.0-0.1 Immature Granulocytes 0 % (Normal) Baso (Absolute) 0.0 {x10E3/uL} (Normal) Range: 0.0-0.2 Eos (Absolute) 0.2 {x10E3/uL} (Normal) Range: 0.0-0.4 Monocytes(Absolute) 0.5 {x10E3/uL} (Normal) Range: 0.1-0.9 Lymphs (Absolute) 1.8 {x10E3/uL} (Normal) Range: 0.7-3.1 Neutrophils (Absolute) 5.4 {x10E3/uL} (Normal) Range: 1.4-7.0 Basos 1 % (Normal) Eos 3 % (Normal) Monocytes 6 % (Normal) Lymphs 22 % (Normal) Neutrophils 68 % (Normal) Platelets 299 {x10E3/uL} (Normal) Range: 150-379 RDW 14.4 % (Normal) Range: 12.3-15.4 MCHC 32.9 g/dL (Normal) Range: 31.5-35.7 MCH 27.8 pg (Normal) Range: 26.6-33.0 MCV 85 fL (Normal) Range: 79-97 Hematocrit 41.4 % (Normal) Range: 34.0-46.6 Hemoglobin 13.6 g/dL (Normal) Range: 11.1-15.9 RBC 4.90 {x10E6/uL} (Normal) Range: 3.77-5.28 WBC 7.9 {x10E3/uL} (Normal) Range: 3.4-10.8 2-Wae-502368:59 METABOLIC PANEL, COMPREHENSIVE Comments: PATIENT NOT FASTINGPERFORMED BY: [employer]70 [facility] [id number] ([id number]) ALT (SGPT) 10 [iU]/L (Normal) Range: 0-32 AST (SGOT) 14 [iU]/L (Normal) Range: 0-40 Alkaline Phosphatase, S 117 [iU]/L (Normal) Range: 39-117 Bilirubin, Total 0.4 mg/dL (Normal) Range: 0.0-1.2 A/G Ratio 1.7 (Normal) Range: 1.2-2.2 Globulin, Total 2.6 g/dL (Normal) Range: 1.5-4.5 Albumin, Serum 4.4 g/dL (Normal) Range: 3.5-4.8 Protein, Total, Serum 7.0 g/dL (Normal) Range: 6.0-8.5 Calcium, Serum 9.7 mg/dL (Normal) Range: 8.7-10.3 Carbon Dioxide, Total 22 mmol/L (Normal) Range: 18-29 Chloride, Serum 101 mmol/L (Normal) Range: 96-106 Potassium, Serum 4.8 mmol/L (Normal) Range: 3.5-5.2 Sodium, Serum 142 mmol/L (Normal) Range: 134-144 BUN/Creatinine Ratio 23 (Normal) Range: 12-28 eGFR If Africn Am 45 mL/min/1.73 (Abnormal) eGFR If NonAfricn Am 39 mL/min/1.73 (Abnormal) Creatinine, Serum 1.33 mg/dL (Abnormal) Range: 0.57-1.00 BUN 30 mg/dL (Abnormal) Range: 8-27 Glucose, Serum 88 mg/dL (Normal) Range: 65-99 :46 TSH (15439) Comments: 6 weeks; PATIENT NOT FASTINGPERFORMED BY: IngagePatient Joubkl9062 [facility] [id number] TSH 2.420 {uIU/mL} (Normal) Range: 0.450-4.500 :23 LIPID PANEL (31485) Comments: PATIENT WAS FASTINGPERFORMED BY: IngagePatientSaint Clare's Hospital at DoverZnxsiv4361 [facility] [id number] LDL/HDL Ratio 1.6 {ratio_units} (Normal) Range: 0.0-3.2 Comments: LDL/HDL Ratio Men Women 1/2 Avg.Risk 1.0 1.5 Av g.Risk 3.6 3.2 2X Avg.Risk 6.2 5.0 3X Avg.Risk 8.0 6.1 LDL Cholesterol Calc 125 mg/dL (Abnormal) Range: 0-99 VLDL Cholesterol Meliton 25 mg/dL (Normal) Range: 5-40 HDL Cholesterol 78 mg/dL (Normal) Triglycerides 124 mg/dL (Normal) Range: 0-149 Cholesterol, Total 228 mg/dL (Abnormal) Range: 100-199 09-Nbz-67946:23 METABOLIC PANEL, COMPREHENSIVE Comments: PATIENT WAS FASTINGPERFORMED BY: [employer] Daigvd7803 [facility] [id number] (44046) ALT (SGPT) 15 [iU]/L (Normal) Range: 0-32 AST (SGOT) 18 [iU]/L (Normal) Range: 0-40 Alkaline Phosphatase, S 125 [iU]/L (Abnormal) Range: 39-117 Bilirubin, Total 0.5 mg/dL (Normal) Range: 0.0-1.2 A/G Ratio 1.8 (Normal) Range: 1.2-2.2 Globulin, Total 2.4 g/dL (Normal) Range: 1.5-4.5 Albumin, Serum 4.4 g/dL (Normal) Range: 3.5-4.8 Protein, Total, Serum 6.8 g/dL (Normal) Range: 6.0-8.5 Calcium, Serum 9.9 mg/dL (Normal) Range: 8.7-10.3 Carbon Dioxide, Total 22 mmol/L (Normal) Range: 18-29 Chloride, Serum 106 mmol/L (Normal) Range: 96-106 Potassium, Serum 4.9 mmol/L (Normal) Range: 3.5-5.2 Sodium, Serum 145 mmol/L (Abnormal) Range: 134-144 BUN/Creatinine Ratio 21 (Normal) Range: 12-28 eGFR If Africn Am 51 mL/min/1.73 (Abnormal) eGFR If NonAfricn Am 45 mL/min/1.73 (Abnormal) Creatinine, Serum 1.20 mg/dL (Abnormal) Range: 0.57-1.00 BUN 25 mg/dL (Normal) Range: 8-27 Glucose, Serum 96 mg/dL (Normal) Range: 65-99 :23 CBC W/AUTO DIFF WBC (68579) Comments: PATIENT WAS FASTINGPERFORMED BY: IngagePatient Vhcvld0357 [facility] [id number] Immature Grans (Abs) 0.0 {x10E3/uL} (Normal) Range: 0.0-0.1 Immature Granulocytes 0 % (Normal) Baso (Absolute) 0.1 {x10E3/uL} (Normal) Range: 0.0-0.2 Eos (Absolute) 0.2 {x10E3/uL} (Normal) Range: 0.0-0.4 Monocytes(Absolute) 0.5 {x10E3/uL} (Normal) Range: 0.1-0.9 Lymphs (Absolute) 1.6 {x10E3/uL} (Normal) Range: 0.7-3.1 Neutrophils (Absolute) 3.5 {x10E3/uL} (Normal) Range: 1.4-7.0 Basos 1 % (Normal) Eos 4 % (Normal) Monocytes 8 % (Normal) Lymphs 27 % (Normal) Neutrophils 60 % (Normal) Platelets 255 {x10E3/uL} (Normal) Range: 150-379 RDW 14.5 % (Normal) Range: 12.3-15.4 MCHC 33.1 g/dL (Normal) Range: 31.5-35.7 MCH 27.4 pg (Normal) Range: 26.6-33.0 MCV 83 fL (Normal) Range: 79-97 Hematocrit 39.3 % (Normal) Range: 34.0-46.6 Hemoglobin 13.0 g/dL (Normal) Range: 11.1-15.9 RBC 4.75 {x10E6/uL} (Normal) Range: 3.77-5.28 WBC 5.8 {x10E3/uL} (Normal) Range: 3.4-10.8 :23 Vitamin D Hydroxy (09622) Comments: PATIENT WAS FASTINGPERFORMED BY: [facility] Bgardy5515 [facility] [id number] Vitamin D, 25-Hydroxy 41.5 ng/mL (Normal) Range: 30.0-100.0 Comments: Vitamin D deficiency has been defined by the [place] of[employer] and an Endocrine Society practice guideline as alevel of serum 25-OH vitamin D less than 20 ng/mL (1,2).The Endocrine Society went on to further define vitamin Dinsufficiency as a level between 21 and 29 ng/mL (2).1. IOM ([place] of [employer]). 2010. Dietary reference intakes for calcium and D. [place]: The National Academies Press.2. Seng MF, Theresa ROMERO, Kieran KOWALSKI, et al. Evaluation, treatment, and prevention of vitamin D deficiency: an Endocrine Society clinical practice guideline. JCEM. 2010; 96(7):1911-30. :23 TSH (98921) Comments: PATIENT WAS FASTINGPERFORMED BY: [facility] Eoxpwv9617 [address] RoadDublin [place] [id number] TSH 0.429 {uIU/mL} (Abnormal) Range: 0.450-4.500 :23 VITAMIN B-12 (CYANOCOBALAMIN) Comments: PATIENT WAS FASTINGPERFORMED BY: [facility] Kgbqpv7460 [address] [facility] [place] [id number] ([id number]) Vitamin B12 553 pg/mL (Normal) Range: 211-946 2-Thf-738120:52 CBC, PLATELETS & MANUAL DIFF Comments: PATIENT NOT FASTINGPERFORMED BY: [facility] Ahmslw8829 [address] [facility] [place] [id number] ([id number]) Immature Grans (Abs) 0.0 {x10E3/uL} (Normal) Range: 0.0-0.1 Immature Granulocytes 0 % (Normal) Baso (Absolute) 0.1 {x10E3/uL} (Normal) Range: 0.0-0.2 Eos (Absolute) 0.3 {x10E3/uL} (Normal) Range: 0.0-0.4 Monocytes(Absolute) 0.6 {x10E3/uL} (Normal) Range: 0.1-0.9 Lymphs (Absolute) 1.7 {x10E3/uL} (Normal) Range: 0.7-3.1 Neutrophils (Absolute) 4.4 {x10E3/uL} (Normal) Range: 1.4-7.0 Basos 1 % (Normal) Eos 4 % (Normal) Monocytes 9 % (Normal) Lymphs 24 % (Normal) Neutrophils 62 % (Normal) Platelets 449 {x10E3/uL} (Abnormal) Range: 150-379 RDW 15.5 % (Abnormal) Range: 12.3-15.4 MCHC 32.6 g/dL (Normal) Range: 31.5-35.7 MCH 27.5 pg (Normal) Range: 26.6-33.0 MCV 84 fL (Normal) Range: 79-97 Hematocrit 34.7 % (Normal) Range: 34.0-46.6 Hemoglobin 11.3 g/dL (Normal) Range: 11.1-15.9 RBC 4.11 {x10E6/uL} (Normal) Range: 3.77-5.28 WBC 7.1 {x10E3/uL} (Normal) Range: 3.4-10.8 :09 Basic Metabolic Profile (BMP) Comments: [facility] [address] [place], [address] GAP 9 (Normal) Range: 5-15 CO2 29.0 mmol/L (Normal) Range: 21.0-32.0 CL 103 mmol/L (Normal) Range: 98-107 K 3.5 mmol/L (Normal) Range: 3.5-5.1 NA 141 mmol/L (Normal) Range: 136-145 CA 8.3 mg/dL (Abnormal) Range: 8.5-10.1 BUN/CRE 17.3 {RATIO} (Normal) Range: 10-20 EST GFR - AA 76 mL/min (Normal) Comments: GFR Calc EST GFR 63 mL/min (Normal) Comments: Non- GFR Calc CREAT,SERUM 0.93 mg/dL (Normal) Range: 0.55-1.02 Comments: The validity of the calculated GFR AND GFRAA in patients over70 years has not been determined. Clinical correlation isessential. BUN 16 mg/dL (Normal) Range: 7-18 GLU 90 mg/dL (Normal) Range: 70-110 :09 CBC-Complete Blood Cnt No Diff Comments: [facility] [address] [place], [address] MPV 9.1 fL (Normal) Range: 6.2-12.0 PLT 333 K/mm3 (Normal) Range: 150-450 RDW SD 48.0 fL (Abnormal) Range: 35.1-43.9 RDW CV 15.3 % (Abnormal) Range: 11.6-14.6 MCHC 31.4 {g/gl} (Abnormal) Range: 32-36 MCH 28.0 pg (Normal) Range: 27.0-32.0 MCV 89.1 fL (Normal) Range: 81-99 HCT 27.1 % (Abnormal) Range: 37-47 HGB 8.5 g/dL (Abnormal) Range: 12.0-15.0 RBC 3.04 {M/mm3} (Abnormal) Range: 4.2-5.4 WBC 5.7 K/mm3 (Normal) Range: 4.4-11.0 :53 Magnesium (61847) Comments: PATIENT NOT FASTINGPERFORMED BY: [facility] Jnlcgn3154 [facility] [id number] Magnesium, Serum 1.9 mg/dL (Normal) Range: 1.6-2.3 :53 METABOLIC PANEL, COMPREHENSIVE Comments: PATIENT NOT FASTINGPERFORMED BY: [facility] Kgjpne1569 [facility] [id number]; non- emergent till apt (08929) ALT (SGPT) 18 [iU]/L (Normal) Range: 0-32 AST (SGOT) 14 [iU]/L (Normal) Range: 0-40 Alkaline Phosphatase, S 83 [iU]/L (Normal) Range: 39-117 Bilirubin, Total 0.3 mg/dL (Normal) Range: 0.0-1.2 A/G Ratio 2.0 (Normal) Range: 1.1-2.5 Comments: Effective May 23, 2016 the reference interval for A/G Ratio will be changing to: Age Male Female 0 - 7 d ays 1.1 - 2.3 1.1 - 2.3 8 - 30 days 1.2 - 2.8 1.2 - 2.8 1 - 6 months 1.3 - 3.6 1.3 - 3.6 7 months - 5 years 1.5 - 2.6 1.5 - 2.6 > 5 years 1.2 - 2.2 1.2 - 2.2 Globulin, Total 2.1 g/dL (Normal) Range: 1.5-4.5 Albumin, Serum 4.2 g/dL (Normal) Range: 3.5-4.8 Protein, Total, Serum 6.3 g/dL (Normal) Range: 6.0-8.5 Calcium, Serum 9.3 mg/dL (Normal) Range: 8.7-10.3 Carbon Dioxide, Total 21 mmol/L (Normal) Range: 18-29 Chloride, Serum 104 mmol/L (Normal) Range: 96-106 Potassium, Serum 4.4 mmol/L (Normal) Range: 3.5-5.2 Sodium, Serum 144 mmol/L (Normal) Range: 134-144 BUN/Creatinine Ratio 19 (Normal) Range: 11-26 eGFR If Africn Am 51 mL/min/1.73 (Abnormal) eGFR If NonAfricn Am 44 mL/min/1.73 (Abnormal) Creatinine, Serum 1.22 mg/dL (Abnormal) Range: 0.57-1.00 BUN 23 mg/dL (Normal) Range: 8-27 Glucose, Serum 83 mg/dL (Normal) Range: 65-99 10-Oaj-07107:53 TSH (73807) Comments: PATIENT NOT FASTINGPERFORMED BY: [employer] [facility] Leyacb9632 [facility] [id number] TSH 1.810 {uIU/mL} (Normal) Range: 0.450-4.500 53-Tyz-563245:15 Vitamin D Hydroxy (73442) Comments: PATIENT NOT FASTINGPERFORMED BY: CB [facility] Vdztcp1563 [facility] [id number] Vitamin D, 25-Hydroxy 28.3 ng/mL (Abnormal) Range: 30.0-100.0 Comments: Vitamin D deficiency has been defined by the [place] [employer] and an Endocrine Society practice guideline as alevel of serum 25-OH vitamin D less than 20 ng/mL (1,2).The Endocrine Society went on to further define vitamin Dinsufficiency as a level between 21 and 29 ng/mL (2).1. IOM ([place] [employer]). 2010. Dietary reference intakes for calcium and D. [place]: The National Academies Press.2. Seng MF, Theresa ROMERO, Kieran KOWALSKI, et al. Evaluation, treatment, and prevention of vitamin D deficiency: an Endocrine Society clinical practice guideline. JCEM. 2010; 96(7):1911-30. 75-Bkx-079274:15 VITAMIN B-12 (CYANOCOBALAMIN) Comments: PATIENT NOT FASTINGPERFORMED BY: IngagePatientSaint [facility] Hospital at DoverDsthgi3786 [facility] [id number] ([id number]) Vitamin B12 447 pg/mL (Normal) Range: 211-946 49-Xlm-084980:15 CBC W/AUTO DIFF WBC Comments: PATIENT NOT FASTINGPERFORMED BY: IngagePatient Vcjsjr1410 [facility] [id number] Information: SRC: ([id number]) Immature Grans (Abs) 0.0 {x10E3/uL} (Normal) Range: 0.0-0.1 Immature Granulocytes 0 % (Normal) Baso (Absolute) 0.1 {x10E3/uL} (Normal) Range: 0.0-0.2 Eos (Absolute) 0.3 {x10E3/uL} (Normal) Range: 0.0-0.4 Monocytes(Absolute) 0.4 {x10E3/uL} (Normal) Range: 0.1-0.9 Lymphs (Absolute) 1.3 {x10E3/uL} (Normal) Range: 0.7-3.1 Neutrophils (Absolute) 3.5 {x10E3/uL} (Normal) Range: 1.4-7.0 Basos 1 % (Normal) Eos 5 % (Normal) Monocytes 8 % (Normal) Lymphs 24 % (Normal) Neutrophils 62 % (Normal) Platelets 285 {x10E3/uL} (Normal) Range: 150-379 RDW 16.0 % (Abnormal) Range: 12.3-15.4 MCHC 32.5 g/dL (Normal) Range: 31.5-35.7 MCH 27.2 pg (Normal) Range: 26.6-33.0 MCV 84 fL (Normal) Range: 79-97 Hematocrit 36.6 % (Normal) Range: 34.0-46.6 Hemoglobin 11.9 g/dL (Normal) Range: 11.1-15.9 RBC 4.38 {x10E6/uL} (Normal) Range: 3.77-5.28 WBC 5.6 {x10E3/uL} (Normal) Range: 3.4-10.8 59-Fce-134887:15 METABOLIC PANEL, COMPREHENSIVE Comments: PATIENT NOT FASTINGPERFORMED BY: LabCoSaint Clare's Hospital at DoverOkxwpq4938 [facility] [id number] ([id number]) ALT (SGPT) 13 [iU]/L (Normal) Range: 0-32 AST (SGOT) 17 [iU]/L (Normal) Range: 0-40 Alkaline Phosphatase, S 120 [iU]/L (Abnormal) Range: 39-117 Bilirubin, Total 0.3 mg/dL (Normal) Range: 0.0-1.2 A/G Ratio 1.6 (Normal) Range: 1.1-2.5 Globulin, Total 2.6 g/dL (Normal) Range: 1.5-4.5 Albumin, Serum 4.2 g/dL (Normal) Range: 3.5-4.8 Protein, Total, Serum 6.8 g/dL (Normal) Range: 6.0-8.5 Calcium, Serum 9.5 mg/dL (Normal) Range: 8.7-10.3 Carbon Dioxide, Total 21 mmol/L (Normal) Range: 18-29 Chloride, Serum 104 mmol/L (Normal) Range: 97-108 Comments: Effective December 28, 2015 the reference interval for Chloride, Serum will be changing to: 97 - 106 Potassium, Serum 4.5 mmol/L (Normal) Range: 3.5-5.2 Comments: Effective December 28, 2015 the reference interval for Potassium, Serum will be changing to: 0 - 7 days 3.7 - 5.2 8 - 30 days 3.7 - 6.4 1 - 6 months 3.8 - 6.0 7 months - 1 year 3.8 - 5.3 >1 year 3.5 - 5.2 Sodium, Serum 142 mmol/L (Normal) Range: 134-144 Comments: Effective December 28, 2015 the reference interval for Sodium, Serum will be changing to: 136 - 144 BUN/Creatinine Ratio 21 (Normal) Range: 11-26 eGFR If Africn Am 50 mL/min/1.73 (Abnormal) eGFR If NonAfricn Am 43 mL/min/1.73 (Abnormal) Creatinine, Serum 1.24 mg/dL (Abnormal) Range: 0.57-1.00 BUN 26 mg/dL (Normal) Range: 8-27 Glucose, Serum 87 mg/dL (Normal) Range: 65-99 15-Obi-805753:50 Urinalysis, Office (39552) UA - LEUKOCYTE ESTERASE Trace (Normal) UA - NITRITE Negative (Normal) URINE UROBILINGN TUNDE TIMED Normal mg/dL (Normal) UA - PROTEIN Negative mg/dL (Normal) UA - PH 5 (Abnormal) UA - BLOOD Negative (Normal) UA - SPECIFIC GRAVITY 1.025 (Normal) UA - KETONES Negative mg/dL (Normal) UA - BILIRUBIN Negative (Normal) UA - GLUCOSE Negative (Normal) 39-Zqu-391385:15 URINE CESAR CULTURE (TUNDE COL Comments: PATIENT NOT FASTINGPERFORMED BY: [facility] [id number] COUNT) ([id number]) Result 1 MUG (Normal) Comments: Mixed urogenital floraGreater than 100,000 colony forming units per mL Urine Culture,Comprehensive Final report (Normal) 66-Csf-271006:29 URINE CESAR CULTURE-IDENTIFICATN Comments: PATIENT NOT FASTINGPERFORMED BY: [facility] [id number] Information: [id number] (07001) Result 1 MUG (Normal) Comments: Mixed urogenital flora1,000 Colonies/mL Urine Culture,Comprehensive Final report (Normal) 16-Kvt-416005:29 URINE CESAR CULTURE-TUNDE COL Comments: PATIENT NOT FASTINGPERFORMED BY: [facility] [id number] Information: SRC:UR [id number] COUNT ([id number]) Result 1 MUG (Normal) Comments: Mixed urogenital flora25,000-50,000 colony forming units per mL Urine Final report (Normal) Culture,Comprehensive 04-Csr-228801:07 Urinalysis, Office (38294) UA - LEUKOCYTE ESTERASE Small (Normal) UA - NITRITE Negative (Normal) URINE UROBILINGN TUNDE TIMED Normal mg/dL (Normal) UA - PROTEIN Negative mg/dL (Normal) UA - PH 5 (Abnormal) UA - BLOOD Hemolyzed Trace (Normal) UA - SPECIFIC GRAVITY 1.015 (Normal) UA - KETONES Negative mg/dL (Normal) UA - BILIRUBIN Negative (Normal) UA - GLUCOSE Negative (Normal) 2-Lth-899444:02 URINE CESAR CULTURE (TUNDE Comments: PATIENT NOT FASTINGPERFORMED BY: mktg Qfqswd9859 [facility] [id number] Information: SRC:[facility] [id number] COL COUNT) ([id number]) Result 1 NG36 (Normal) Comments: No growth in 36 - 48 hours. Urine Culture,Comprehensive Final report (Normal) 17-Sep-20149:51 CBC With Differential/Platelet Comments: PATIENT NOT FASTINGPERFORMED BY: IngagePatient Nfslrl4996 [facility] [id number] Information: [id number] Immature Grans (Abs) 0.0 {x10E3/uL} (Normal) Range: 0.0-0.1 Immature Granulocytes 0 % (Normal) Baso (Absolute) 0.0 {x10E3/uL} (Normal) Range: 0.0-0.2 Eos (Absolute) 0.2 {x10E3/uL} (Normal) Range: 0.0-0.4 Monocytes(Absolute) 0.5 {x10E3/uL} (Normal) Range: 0.1-0.9 Lymphs (Absolute) 1.4 {x10E3/uL} (Normal) Range: 0.7-3.1 Neutrophils (Absolute) 3.1 {x10E3/uL} (Normal) Range: 1.4-7.0 Basos 1 % (Normal) Eos 4 % (Normal) Monocytes 9 % (Normal) Lymphs 27 % (Normal) Neutrophils 59 % (Normal) Platelets 259 {x10E3/uL} (Normal) Range: 150-379 RDW 14.0 % (Normal) Range: 12.3-15.4 MCHC 32.8 g/dL (Normal) Range: 31.5-35.7 MCH 27.6 pg (Normal) Range: 26.6-33.0 MCV 84 fL (Normal) Range: 79-97 Hematocrit 38.1 % (Normal) Range: 34.0-46.6 Hemoglobin 12.5 g/dL (Normal) Range: 11.1-15.9 RBC 4.53 {x10E6/uL} (Normal) Range: 3.77-5.28 WBC 5.2 {x10E3/uL} (Normal) Range: 3.4-10.8 :51 Comp. Metabolic Panel (14) Comments: PATIENT NOT FASTINGPERFORMED BY: [facility] Drfphq7769 [facility] [id number] ALT (SGPT) 11 [iU]/L (Normal) Range: 0-32 AST (SGOT) 13 [iU]/L (Normal) Range: 0-40 Alkaline Phosphatase, S 107 [iU]/L (Normal) Range: 39-117 Bilirubin, Total 0.4 mg/dL (Normal) Range: 0.0-1.2 A/G Ratio 2.0 (Normal) Range: 1.1-2.5 Globulin, Total 2.1 g/dL (Normal) Range: 1.5-4.5 Albumin, Serum 4.3 g/dL (Normal) Range: 3.5-4.8 Protein, Total, Serum 6.4 g/dL (Normal) Range: 6.0-8.5 Calcium, Serum 9.9 mg/dL (Normal) Range: 8.7-10.3 Carbon Dioxide, Total 21 mmol/L (Normal) Range: 18-29 Chloride, Serum 104 mmol/L (Normal) Range: 97-108 Potassium, Serum 4.3 mmol/L (Normal) Range: 3.5-5.2 Sodium, Serum 143 mmol/L (Normal) Range: 134-144 BUN/Creatinine Ratio 16 (Normal) Range: 11-26 eGFR If Africn Am 48 mL/min/1.73 (Abnormal) eGFR If NonAfricn Am 42 mL/min/1.73 (Abnormal) Creatinine, Serum 1.29 mg/dL (Abnormal) Range: 0.57-1.00 BUN 21 mg/dL (Normal) Range: 8-27 Glucose, Serum 89 mg/dL (Normal) Range: 65-99 76-Krr-91333:13 SED RATE ERYTHROCYTE (36164) Comments: PATIENT WAS FASTINGPERFORMED BY: [facility]6370 [facility] [id number] Sedimentation Rate-Westergren 6 mm/h (Normal) Range: 0-40 :13 C-REACTIVE PROTEIN (72617) Comments: PATIENT WAS FASTINGPERFORMED BY: [facility]6370 [facility] [id number] C-Reactive Protein, Quant 2.2 mg/L (Normal) Range: 0.0-4.9 :13 CBC W/AUTO DIFF WBC Comments: PATIENT WAS FASTINGPERFORMED BY: [facility]6370 [facility] [id number] Information: [id number] ([id number]) Immature Grans (Abs) 0.0 {x10E3/uL} (Normal) Range: 0.0-0.1 Immature Granulocytes 0 % (Normal) Baso (Absolute) 0.0 {x10E3/uL} (Normal) Range: 0.0-0.2 Eos (Absolute) 0.2 {x10E3/uL} (Normal) Range: 0.0-0.4 Monocytes(Absolute) 0.4 {x10E3/uL} (Normal) Range: 0.1-0.9 Lymphs (Absolute) 1.4 {x10E3/uL} (Normal) Range: 0.7-3.1 Neutrophils (Absolute) 2.6 {x10E3/uL} (Normal) Range: 1.4-7.0 Basos 1 % (Normal) Eos 4 % (Normal) Monocytes 8 % (Normal) Lymphs 31 % (Normal) Neutrophils 56 % (Normal) Platelets 268 {x10E3/uL} (Normal) Range: 150-379 RDW 14.1 % (Normal) Range: 12.3-15.4 MCHC 33.4 g/dL (Normal) Range: 31.5-35.7 MCH 27.4 pg (Normal) Range: 26.6-33.0 MCV 82 fL (Normal) Range: 79-97 Hematocrit 38.3 % (Normal) Range: 34.0-46.6 Hemoglobin 12.8 g/dL (Normal) Range: 11.1-15.9 RBC 4.68 {x10E6/uL} (Normal) Range: 3.77-5.28 WBC 4.6 {x10E3/uL} (Normal) Range: 3.4-10.8 :13 TSH (14974) Comments: PATIENT WAS FASTINGPERFORMED BY: [facility] [id number] TSH 0.584 {uIU/mL} (Normal) Range: 0.450-4.500 67-Wvj-975855:42 Urinalysis, Office (75857) UA - LEUKOCYTE ESTERASE Small (Normal) UA - NITRITE Negative (Normal) URINE UROBILINGN TUNDE TIMED Normal mg/dL (Normal) UA - PROTEIN Negative mg/dL (Normal) UA - PH 6 (Abnormal) UA - BLOOD Negative (Normal) UA - SPECIFIC GRAVITY 1.025 (Normal) UA - KETONES Negative mg/dL (Normal) UA - BILIRUBIN Negative (Normal) UA - GLUCOSE Negative (Normal) 58-Rxs-856932:43 URINE CESAR CULTURE (TUNDE Comments: PATIENT NOT FASTINGPERFORMED BY: [facility] [facility] [id number] Information: SRC:UR [id number] COL COUNT) ([id number]) Result 1 MUG (Normal) Comments: Mixed urogenital flora25,000-50,000 colony forming units per mL Urine Final report (Normal) Culture,Comprehensive :13 Vitamin D Hydroxy (99117) Comments: PATIENT WAS FASTINGPERFORMED BY: [employer] [facility] Zdplqv3148 [facility] [id number] Vitamin D, 25-Hydroxy 38.7 ng/mL (Normal) Range: 30.0-100.0 Comments: Vitamin D deficiency has been defined by the [place] [employer] and an Endocrine Society practice guideline as alevel of serum 25-OH vitamin D less than 20 ng/mL (1,2).The Endocrine Society went on to further define vitamin Dinsufficiency as a level between 21 and 29 ng/mL (2).1. IOM ([place] [employer]). 2010. Dietary reference intakes for calcium and D. [place]: The National Academies Press.2. Seng MF, Theresa NC, Kieran KOWALSKI, et al. Evaluation, treatment, and prevention of vitamin D deficiency: an Endocrine Society clinical practice guideline. JCEM. 2010; 96(4):4841-30. :13 LIPID PANEL (45162) Comments: PATIENT WAS FASTINGPERFORMED BY: IngagePatient Wnblgv5894 [facility] [id number] LDL/HDL Ratio 1.8 {ratio_units} (Normal) Range: 0.0-3.2 Comments: LDL/HDL Ratio Men Women 1/2 Avg.Risk 1.0 1.5 Av g.Risk 3.6 3.2 2X Avg.Risk 6.2 5.0 3X Avg.Risk 8.0 6.1 LDL Cholesterol Calc 135 mg/dL (Abnormal) Range: 0-99 VLDL Cholesterol [place] 18 mg/dL (Normal) Range: 5-40 HDL Cholesterol 75 mg/dL (Normal) Comments: According to ATP-III Guidelines, HDL-C >59 mg/dL is considered anegative risk factor for CHD. Triglycerides 89 mg/dL (Normal) Range: 0-149 Cholesterol, Total 228 mg/dL (Abnormal) Range: 100-199 :13 METABOLIC PANEL, COMPREHENSIVE Comments: PATIENT WAS FASTINGPERFORMED BY: IngagePatient Gnwarb1888 [facility] [id number] ([id number]) ALT (SGPT) 14 [iU]/L (Normal) Range: 0-32 AST (SGOT) 15 [iU]/L (Normal) Range: 0-40 Alkaline Phosphatase, S 114 [iU]/L (Normal) Range: 39-117 Bilirubin, Total 0.4 mg/dL (Normal) Range: 0.0-1.2 A/G Ratio 1.9 (Normal) Range: 1.1-2.5 Globulin, Total 2.4 g/dL (Normal) Range: 1.5-4.5 Albumin, Serum 4.5 g/dL (Normal) Range: 3.5-4.8 Protein, Total, Serum 6.9 g/dL (Normal) Range: 6.0-8.5 Calcium, Serum 10.0 mg/dL (Normal) Range: 8.7-10.3 Carbon Dioxide, Total 23 mmol/L (Normal) Range: 18-29 Chloride, Serum 104 mmol/L (Normal) Range: 97-108 Potassium, Serum 4.6 mmol/L (Normal) Range: 3.5-5.2 Sodium, Serum 144 mmol/L (Normal) Range: 134-144 BUN/Creatinine Ratio 14 (Normal) Range: 11-26 eGFR If Africn Am 54 mL/min/1.73 (Abnormal) eGFR If NonAfricn Am 47 mL/min/1.73 (Abnormal) Creatinine, Serum 1.18 mg/dL (Abnormal) Range: 0.57-1.00 BUN 17 mg/dL (Normal) Range: 8-27 Glucose, Serum 86 mg/dL (Normal) Range: 65-99 01-Tod-18580:13 VITAMIN B-12 (CYANOCOBALAMIN) Comments: PATIENT WAS FASTINGPERFORMED BY: [employer]70 [facility] [id number] ([id number]) Vitamin B12 >1999 pg/mL (Abnormal) Range: 211-946 87-Osb-213096:00 Metabolic Panel, Basic Comments: 6 weeks; PATIENT NOT FASTINGPERFORMED BY: [employer]70 [facility] [id number] Information: [id number] ([id number]) Calcium, Serum 9.7 mg/dL (Normal) Range: 8.6-10.2 Carbon Dioxide, Total 26 mmol/L (Normal) Range: 18-29 Chloride, Serum 101 mmol/L (Normal) Range: 97-108 Potassium, Serum 3.9 mmol/L (Normal) Range: 3.5-5.2 Sodium, Serum 143 mmol/L (Normal) Range: 134-144 BUN/Creatinine Ratio 15 (Normal) Range: 11-26 eGFR If Africn Am 50 mL/min/1.73 (Abnormal) eGFR If NonAfricn Am 43 mL/min/1.73 (Abnormal) Creatinine, Serum 1.25 mg/dL (Abnormal) Range: 0.57-1.00 BUN 19 mg/dL (Normal) Range: 8-27 Glucose, Serum 90 mg/dL (Normal) Range: 65-99 18-Fqt-793850:24 URINE CESAR CULTURE-IDENTIFICATN Comments: PATIENT NOT FASTINGPERFORMED BY: [facility]6370 [facility] [id number] Information: [id number] ([id number]) Result 1 ENTEGA (Abnormal) Comments: Enterococcus eptixqmwgn96,000-25,000 colony forming units per mLNote: For enterococci with intrinsic intermediate-level resistance tovancomycin, such as E. casseliflavus and E. gallinarum, VRE infection control measures are not applicable, per the CLSI (formerly NCCLS).For Enterococcus species, cephalosporins, aminoglycosides (except forhigh-level resistance screening), clindamycin, and trimethoprim-curtis lfamethoxazole are not effective clinically. Fluoroquinolones areused primarily for treating urinary tract infections. (CLSI, P394-S02,2009) S = Susceptible; I = Intermediate; R = Resistant * P = Positive; N = Negative MICS are expressed in micrograms per mL Antibiotic RSLT#1 RSLT#2 RSLT#3 RSLT#4Ciprofloxacin SGentami lien 500 SLevofloxacin SNitrofurantoin IPenicillin SStreptomycin 2000 STetracycline SVancomycin R Urine Final report (Abnormal) Culture,Comprehensive 69-Yez-224002:51 METABOLIC PANEL, Comments: PATIENT NOT FASTINGPERFORMED BY: [facility]6370 [facility] [id number] Information: [id number] COMPREHENSIVE (96556) ALT (SGPT) 20 [iU]/L (Normal) Range: 0-32 AST (SGOT) 21 [iU]/L (Normal) Range: 0-40 Alkaline Phosphatase, S 91 [iU]/L (Normal) Range: 39-117 Bilirubin, Total 0.4 mg/dL (Normal) Range: 0.0-1.2 A/G Ratio 2.2 (Normal) Range: 1.1-2.5 Globulin, Total 2.0 g/dL (Normal) Range: 1.5-4.5 Albumin, Serum 4.4 g/dL (Normal) Range: 3.5-4.8 Protein, Total, Serum 6.4 g/dL (Normal) Range: 6.0-8.5 Calcium, Serum 9.5 mg/dL (Normal) Range: 8.6-10.2 Carbon Dioxide, Total 23 mmol/L (Normal) Range: 18-29 Chloride, Serum 101 mmol/L (Normal) Range: 97-108 Potassium, Serum 4.8 mmol/L (Normal) Range: 3.5-5.2 Sodium, Serum 141 mmol/L (Normal) Range: 134-144 BUN/Creatinine Ratio 13 (Normal) Range: 11-26 eGFR If Africn Am 39 mL/min/1.73 (Abnormal) eGFR If NonAfricn Am 33 mL/min/1.73 (Abnormal) Creatinine, Serum 1.55 mg/dL (Abnormal) Range: 0.57-1.00 BUN 20 mg/dL (Normal) Range: 8-27 Glucose, Serum 80 mg/dL (Normal) Range: 65-99 64-Cyj-077796:04 Microscopic Examination Comments: PATIENT NOT FASTINGPERFORMED BY: [employer] Ckaeak3173 [facility] [id number] Bacteria Few (Normal) Mucus Threads Present (Normal) Epithelial Cells (non renal) 0-10 {/hpf} (Normal) Range: 0 - 10 RBC None seen {/hpf} (Normal) Range: 0 - 2 WBC None seen {/hpf} (Normal) Range: 0 - 5 78-Ity-725770:04 URINE CESAR CULTURE (TUNDE COL Comments: PATIENT NOT FASTINGPERFORMED BY: [facility] [facility] Ipxrsl4206 [facility] [id number] COUNT) ([id number]) Antimicrobial MIHEAD (Normal) Comments: S = Susceptible; I = Intermediate; R = Resistant P = Positive; N = Negative MICS are expressed in micrograms per mL Antibiotic RSLT#1 RSLT#2 Susceptibility RSLT#3 RSLT#4Amoxicillin/Clavulanic Acid SAmpicillin SCefepime SCeftriaxone SCefuroxime SCephalothin ICiprofloxacin SErtapenem SGentamicin SImipenem SLevofloxacin SNitrofurantoin S Piperacillin STetracycline STobramycin STrimethoprim/Sulfa S Result 1 Escherichia coli Comments: Greater than 100,000 colony forming units per mL (Abnormal) Urine Final report Culture,Comprehensive (Abnormal) [id number] URINALYSIS, W/ MICRO Comments: PATIENT NOT FASTINGPERFORMED BY: [facility] [facility] [id number] Information: SRC: [id number] ([id number]) Microscopic Examination See below: (Normal) Comments: Microscopic was indicated and was performed. Microscopic Examination MICRON (Normal) Comments: Microscopic follows if indicated. Nitrite, Urine Negative (Normal) Bilirubin Negative (Normal) Urobilinogen,Semi-Qn 0.2 mg/dL (Normal) Range: 0.0-1.9 Ketones Negative (Normal) Occult Blood Negative (Normal) Glucose Negative (Normal) Protein Negative (Normal) WBC Esterase Negative (Normal) Appearance Clear (Normal) Urine-Color Yellow (Normal) pH 6.0 (Normal) Range: 5.0-7.5 Specific [place] 1.010 (Normal) Range: 1.005-1.030 [id number] METABOLIC PANEL, Comments: PATIENT NOT FASTINGPERFORMED BY: [facility] [facility] [id number] Information: [id number] COMPREHENSIVE (99992) ALT (SGPT) 11 [iU]/L (Normal) Range: 0-32 AST (SGOT) 18 [iU]/L (Normal) Range: 0-40 Alkaline Phosphatase, S 102 [iU]/L (Normal) Range: 39-117 Bilirubin, Total 0.3 mg/dL (Normal) Range: 0.0-1.2 A/G Ratio 1.9 (Normal) Range: 1.1-2.5 Globulin, Total 2.3 g/dL (Normal) Range: 1.5-4.5 Albumin, Serum 4.4 g/dL (Normal) Range: 3.5-4.8 Protein, Total, Serum 6.7 g/dL (Normal) Range: 6.0-8.5 Calcium, Serum 9.5 mg/dL (Normal) Range: 8.6-10.2 Carbon Dioxide, Total 22 mmol/L (Normal) Range: 18-29 Chloride, Serum 97 mmol/L (Normal) Range: 97-108 Potassium, Serum 4.7 mmol/L (Normal) Range: 3.5-5.2 Sodium, Serum 139 mmol/L (Normal) Range: 134-144 BUN/Creatinine Ratio 14 (Normal) Range: 11-26 eGFR If Africn Am 36 mL/min/1.73 (Abnormal) eGFR If NonAfricn Am 31 mL/min/1.73 (Abnormal) Creatinine, Serum 1.65 mg/dL (Abnormal) Range: 0.57-1.00 BUN 23 mg/dL (Normal) Range: 8-27 Glucose, Serum 84 mg/dL (Normal) Range: 65-99 :26 CMP Comments: will review at 11/05 appt GAP 8 (Normal) Range: 5-15 CO2 26.0 mmol/L (Normal) Range: 21.0-32.0 CL 108 mmol/L (Abnormal) Range: 98-107 K 4.6 mmol/L (Normal) Range: 3.5-5.1 NA 142 mmol/L (Normal) Range: 136-145 BIT 0.40 mg/dL (Normal) Range: 0.00-1.00 ALT 22 U/L (Normal) Range: 12-78 ALK 97 U/L (Normal) Range: 45-117 AST 20 U/L (Normal) Range: 15-37 CA 9.1 mg/dL (Normal) Range: 8.5-10.1 AG 1.2 {RATIO} (Normal) Range: 0.9-2.4 GLOB 3.1 g/dL (Normal) Range: 2.7-4.2 ALB 3.7 g/dL (Normal) Range: 3.4-5.0 TPROT 6.8 g/dL (Normal) Range: 6.4-8.2 BC 13.5 {RATIO} (Normal) Range: 10-20 CREAT 1.7 mg/dL (Abnormal) Range: 0.6-1.0 BUN 23 mg/dL (Abnormal) Range: 7-18 GLU 83 mg/dL (Normal) Range: 70-110 :26 LIPID HDL 73 mg/dL (Normal) Comments: Reference RangeHDL <40 mg/dL Low HDL CholesterolHDL >or= 60 mg/dL High HDL Cholesterol LDL 113 mg/dL (Normal) Range: 0-130 VLDL 14 mg/dL (Normal) Range: 5-40 TRIG 69 mg/dL (Normal) Range: 0-199 Comments: Serum Triglycerides Reference IntervalNormal <150 mg/dLBorderline high 150 - 199 mg/dLHigh 200 - 499 mg/ dLVery High > or = 500 mg/dL CHOL 200 mg/dL (Normal) Comments: <200 mg/dL Lncdmfakt741-321 mg/dL Borderline>240 mg/dL High Risk :26 TSH 1.85 {uIU/mL} (Normal) Range: 0.358-3.74 :26 VITD 72.9 mg/mL (Normal) Comments: will review at 11-05 appt Comments: Vitamin D 25(OH) Status RangeDeficiency <20 ng/mL (50nmol/L)Insuffciency 20 - 30 ng/mL (50 - 75 nmol/L)Sufficiency 30 - 100 ng/mL (75 - 250 nmol/L)Toxicity >100 ng/mL (>250 nmol/L) 3-Itd-997607:05 Urinalysis, Office (06546) UA - LEUKOCYTE ESTERASE Negative (Normal) UA - NITRITE Negative (Normal) URINE UROBILINGN TUNDE TIMED 2 mg/dL (Normal) UA - PROTEIN 30 mg/dL (Normal) UA - PH 6.0 (Normal) Comments: 5.5 UA - BLOOD Negative (Normal) UA - SPECIFIC GRAVITY 1.030 (Abnormal) UA - KETONES Small mg/dL (Normal) UA - BILIRUBIN Negative (Normal) UA - GLUCOSE Negative (Normal) 7-Nwq-401125:33 URINE CESAR CULTURE-TUNDE COL Comments: PERFORMED BY: [employer] [place] [id number] COUNT ([id number]) Result 1 MUG (Normal) Comments: Mixed urogenital flora10,000-25,000 colony forming units per mL Urine Final report (Normal) Culture,Comprehensive [id number] URINE CESAR CULTURE-TUNDE COL Comments: PATIENT NOT FASTINGPERFORMED BY: [facility] [id number] Information: SRC:UR [id number] COUNT ([id number]) Antimicrobial MIHEAD (Normal) Comments: S = Susceptible; I = Intermediate; R = Resistant P = Positive; N = Negative MICS are expressed in micrograms per mL Antibiotic RSLT#1 RSLT#2 Susceptibility RSLT#3 RSLT#4Amoxicillin/Clavulanic Acid SAmpicillin SCefepime SCeftriaxone SCefuroxime SCephalothin ICiprofloxacin SErtapenem SGentamicin SImipenem SLevofloxacin SNitrofurantoin S Piperacillin STetracycline STobramycin STrimethoprim/Sulfa S; ADDENDA: Pt is on amox and is sensative. Result 1 Escherichia coli Comments: Greater than 100,000 colony forming units per mL (Abnormal) Urine Final report Culture,Comprehensive (Abnormal) 18-Jun-19 B12 530 pg/mL (Normal) Range: 211-911 149:47 :47 CMP GAP 7 (Normal) Range: 5-15 CO2 28.0 mmol/L (Normal) Range: 21.0-32.0 CL 105 mmol/L (Normal) Range: 98-107 K 4.0 mmol/L (Normal) Range: 3.5-5.1 NA 140 mmol/L (Normal) Range: 136-145 BIT 0.40 mg/dL (Normal) Range: 0.00-1.00 ALT 18 U/L (Normal) Range: 12-78 ALK 114 U/L (Normal) Range: 50-136 AST 13 U/L (Abnormal) Range: 15-37 CA 9.4 mg/dL (Normal) Range: 8.5-10.1 AG 1.2 {RATIO} (Normal) Range: 0.9-2.4 GLOB 3.2 g/dL (Normal) Range: 2.7-4.2 ALB 3.7 g/dL (Normal) Range: 3.4-5.0 TPROT 6.9 g/dL (Normal) Range: 6.4-8.2 BC 18.3 {RATIO} (Normal) Range: 10-20 GFRAA 57 mL/min (Abnormal) GFR 47 mL/min (Abnormal) BUN 22 mg/dL (Abnormal) Range: 7-18 CREAT 1.2 mg/dL (Abnormal) Range: 0.6-1.0 GLU 88 mg/dL (Normal) Range: 70-110 :47 LIPID LDL 110 mg/dL (Normal) Range: 0-130 VLDL 19 mg/dL (Normal) Range: 5-40 HDL 74 mg/dL (Normal) Comments: Reference RangeHDL <40 mg/dL Low HDL CholesterolHDL >or= 60 mg/dL High HDL Cholesterol TRIG 94 mg/dL (Normal) Range: 0-199 Comments: Serum Triglycerides Reference IntervalNormal <150 mg/dLBorderline high 150 - 199 mg/dLHigh 200 - 499 mg/ dLVery High > or = 500 mg/dL CHOL 203 mg/dL (Abnormal) Comments: <200 mg/dL Ktbyrncrf467-191 mg/dL Borderline>240 mg/dL High Risk :47 TSH 1.52 {uIU/mL} (Normal) Range: 0.358-3.74 :47 VITD 59.3 mg/mL (Normal) Comments: Vitamin D 25(OH) Status RangeDeficiency <20 ng/mL (50nmol/L)Insuffciency 20 - 30 ng/mL (50 - 75 nmol/L)Sufficiency 30 - 100 ng/mL (75 - 250 nmol/L)Toxicity >100 ng/mL (>250 nmol/L) [id number]-Zir-[id number]:44 CBC, PLATELETS & AUT DIFF Comments: PATIENT NOT FASTINGPERFORMED BY: [facility]CoSaint [facility] DoverWwmlvt2539 [facility] [id number] Information: [id number] ([id number]) Immature Grans (Abs) 0.0 {x10E3/uL} (Normal) Range: 0.0-0.1 Immature Granulocytes 0 % (Normal) Range: 0-2 Baso (Absolute) 0.1 {x10E3/uL} (Normal) Range: 0.0-0.2 Eos (Absolute) 0.3 {x10E3/uL} (Normal) Range: 0.0-0.4 Monocytes(Absolute) 0.5 {x10E3/uL} (Normal) Range: 0.1-0.9 Lymphs (Absolute) 1.3 {x10E3/uL} (Normal) Range: 0.7-3.1 Neutrophils (Absolute) 4.2 {x10E3/uL} (Normal) Range: 1.4-7.0 Basos 2 % (Normal) Range: 0-3 Eos 5 % (Normal) Range: 0-5 Monocytes 8 % (Normal) Range: 4-12 Lymphs 20 % (Normal) Range: 14-46 Neutrophils 65 % (Normal) Range: 40-74 Platelets 285 {x10E3/uL} (Normal) Range: 155-379 RDW 13.7 % (Normal) Range: 12.3-15.4 MCHC 32.5 g/dL (Normal) Range: 31.5-35.7 MCH 27.1 pg (Normal) Range: 26.6-33.0 MCV 84 fL (Normal) Range: 79-97 Hematocrit 38.2 % (Normal) Range: 34.0-46.6 Hemoglobin 12.4 g/dL (Normal) Range: 11.1-15.9 RBC 4.57 {x10E6/uL} (Normal) Range: 3.77-5.28 WBC 6.4 {x10E3/uL} (Normal) Range: 3.4-10.8 :44 FOLIC ACID SERUM (00050) Comments: PATIENT NOT FASTINGPERFORMED BY: mktgGuadalupe County HospitalOqlldd0578 [facility] [id number] Folate (Folic Acid), Serum 14.4 ng/mL (Normal) Comments: A serum folate concentration of less than 3.1 ng/mL isconsidered to represent clinical deficiency. :44 RETICULOCYTE COUNT [facility] Comments: PATIENT NOT FASTINGPERFORMED BY: mktgSaint Clare's Hospital at DoverKregjh6339 [facility] [id number] ([id number]) Reticulocyte Count 1.1 % (Normal) Range: 0.6-2.6 :44 LDH (LD) (LACTATE DEHYDROGENASE) Comments: PATIENT NOT FASTINGPERFORMED BY: mktgSaint Clare's Hospital at DoverLwewtc7407 [facility] [id number] ([id number]) LDH 250 [iU]/L (Abnormal) Range: 0-214 [id number]-Vzo-279808:44 IRON BINDING CAPACITY (TIBC) Comments: PATIENT NOT FASTINGPERFORMED BY: mktgSaint Clare's Hospital at DoverZhtzwx8205 [facility] [id number] ([id number]) Iron Saturation 16 % (Normal) Range: 15-55 Iron, Serum 52 ug/dL (Normal) Range: 35-155 UIBC 270 ug/dL (Normal) Range: 150-375 Iron Bind.Cap.(TIBC) 322 ug/dL (Normal) Range: 250-450 :44 FERRITIN (94645) Comments: PATIENT NOT FASTINGPERFORMED BY: [facility] Nonwyx3945 [place] [id number] Ferritin, Serum 42 ng/mL (Normal) Range: 15-150 :23 B12 403 pg/mL (Normal) Range: 211-911 :23 CBCD ANC 3.7 {X10_3/uL} (Normal) Range: 2.0-7.7 IG% 0.200 % (Normal) Range: 0.0-0.9 Comments: IG% - Immature Granulocytes (promyelocytes, myelocytes andmetamyelocytes) > 1% indicates that a LEFT SHIFT is Present. B% 1.5 % (Abnormal) Range: 0-1 E% 6.0 % (Abnormal) Range: 0-5 M% 8.7 % (Normal) Range: 0-10 L% 16.7 % (Abnormal) Range: 19-41 N% 66.9 % (Normal) Range: 47-70 MPV 11.0 fL (Normal) Range: 6.2-12.0 PLT 224 K/mm3 (Normal) Range: 150-450 RDWSD 40.9 fL (Normal) Range: 35.1-43.9 RDWCV 13.4 % (Normal) Range: 11.6-14.6 MCH 27.9 pg (Normal) Range: 27.0-32.0 MCHC 32.6 {g/gl} (Normal) Range: 32-36 MCV 85.7 fL (Normal) Range: 81-99 HCT 35.3 % (Abnormal) Range: 37-47 HGB 11.5 g/dL (Abnormal) Range: 12.0-15.0 RBC 4.12 {M/mm3} (Abnormal) Range: 4.2-5.4 WBC 5.5 K/mm3 (Normal) Range: 4.4-11.0 :23 CMP GAP 8 (Normal) Range: 5-15 CO2 27.0 mmol/L (Normal) Range: 21.0-32.0 CL 108 mmol/L (Abnormal) Range: 98-107 K 4.0 mmol/L (Normal) Range: 3.5-5.1 NA 143 mmol/L (Normal) Range: 136-145 BIT 0.50 mg/dL (Normal) Range: 0.00-1.00 ALK 115 U/L (Normal) Range: 50-136 ALT 25 U/L (Normal) Range: 12-78 AST 18 U/L (Normal) Range: 15-37 CA 9.0 mg/dL (Normal) Range: 8.5-10.1 AG 1.2 {RATIO} (Normal) Range: 0.9-2.4 ALB 3.6 g/dL (Normal) Range: 3.4-5.0 GLOB 2.9 g/dL (Normal) Range: 2.7-4.2 TPROT 6.5 g/dL (Normal) Range: 6.4-8.2 BC 20.7 {RATIO} (Abnormal) Range: 10-20 GFRAA 48 mL/min (Abnormal) GFR 40 mL/min (Abnormal) CREAT 1.4 mg/dL (Abnormal) Range: 0.6-1.0 BUN 29 mg/dL (Abnormal) Range: 7-18 GLU 76 mg/dL (Normal) Range: 70-110 :23 FT3 2.6 pg/mL (Normal) Range: 2.18-3.98 :23 T4F 1.27 ng/dL (Normal) Range: 0.76-1.46 :23 TSH 2.53 {uIU/mL} (Normal) Range: 0.358-3.74 :23 VITD 85.4 mg/mL (Normal) Comments: Vitamin D 25(OH) Status RangeDeficiency <20 ng/mL (50nmol/L)Insuffciency 20 - 30 ng/mL (50 - 75 nmol/L)Sufficiency 30 - 100 ng/mL (75 - 250 nmol/L)Toxicity >100 ng/mL (>250 nmol/L) :50 TSH 1.02 {uIU/mL} (Normal) Range: 0.358-3.74 :02 BILAT SCRN DIGITAL & CAD Radiology Report See Note (Normal) Comments: MAMMOGRAPHY - BILATERAL SCREENING REASON FOR EXAM: Female, 71 years old. Routine annual screeningexamination. PERTINENT HISTORY: Non-contributory. TECHNIQUE: Digital examination. Med iolateral ob lique (MLO) andcraniocaudad (CC) views of both breasts were obtained. CAD: CAD wasperformed on this study. COMPARISON: Comparison is made with prior study dated November 10ndNov2008. FIN DINGS:The breast composition is composed of scattered fibroglandular tissuesranging from 25% to 50% of the breast. There are no dominant masses or suspicious calcifications. No other significant abnorma lities are identified. There has been nosignificant change since the prior study. IMPRESSION:Stable bilateral screening mammogram. Yearly follow-up recommended. (A) ASSESSMENT CATEGORY:BIRADS Catego ry 2: Benign finding(s). A letter regarding these resultswill be sent to the patient by the facility within 30 days. Approximately 10% of breast cancers are not detected by mammography. Anormal mammo gram should not delay biopsy of a clinically suspiciousabnormality. Signed:Dashawn Rowe M.D.July 23, 2012 at 2:35:49 PM [id number] Signed GP/GP If you are the referring physicia n and would like to consult with theradiologist who provided this interpretation, please contact Ofelia Rodriguez at [phone]. If this radiologist is unavailable, youwill be directed to [facility] radiologist to assist. If you are a patient with a question regarding this report, pleasecontactyour referring physician directly. Professional Interpretation Provided By: [employer]!, Phone , These documents contain legally protected and confidential healthinformation intended only for the use of the individual or entity namedabove. If you are not the intended recipie nt, you are hereby notifiedthatany disclosure, copying, distribution, or other use of these documents isstrictly prohibited. If you have received this information in error,pleasenotify the sender lencho ordonez and arrange for the return or destructionofthese documents. Dictated on 07/23/12 1402 by Jennifer Rowe MDranscribed on 07/23/12 1438 by ITS IMPORTSign by Dashawn Rowe MD on 3 1439 Sign by: Dashawn Rowe MD 9-Dwx-332420:59 KIDNEY Radiology Report See Note (Normal) Comments: PROCEDURE: RENAL ULTRASOUND - COMPLETE REASON FOR EXAM: Female, 71 years old. Evaluate for renal cysts. TECHNIQUE: Ultrasound evaluation of the kidneys was performed withreal-time and static cho -scale imaging. COMPARISON: Abdomen and pelvic CT exam of July 04, 2012. FINDINGS: RIGHT KIDNEY: Normal location of the right kidney, which is normal insize. The right kidney measures 10.3 x 4.3 x 3.5 cm. There is a normalcortex of the right kidney. The renal cortex measures 1.0 cm. there isa2.0 x 1.8 x 0.9 centimeter septated cyst of the upper pole of the rightkidney. There is a punctate ec hogenic of the upper pole which is mostlikely vascular and has no corresponding findings on this CT exam. Thereis no right hydronephrosis. DISTAL RIGHT URETER: There is non-visualization of the distal rightureter. There is no demonstrated right ureterovesical junction calculus.There is no demonstrated right ureteral jet. LEFT KIDNEY: Normal location of the left kidney, which is normal insize.The left kidney measures 10.1 x 4.4 x 4.9 cm. There is a normal cortexofthe left kidney. The renal cortex measures 1.5 cm. There is a 1.2 x 1.2x0.8 cm cyst of the lower pole. One small echogenic focus o f the lowerpolehas no corresponding findings on CT exam is most likely an island ofparapelvic fat. There is no left hydronephrosis. DISTAL LEFT URETER: There is non-visualization of the distal lefture ter.There is no demonstrated left ureterovesical junction calculus. There isno demonstrated left ureteral jet. BLADDER: The distended urinary bladder has a volume of 43 ml. There is anormal wall thick ness of the distended urinary bladder. There is nodemonstrated mass within the urinary bladder. There are no demonstratedbladder calculi. IMPRESSION:1. Normal size kidneys with no hydronephrosis.2. Benign-appearing 2.0 x 1.8 x 0.9 cm septated cyst in the upper poleofthe right kidney.3. Benign-appearing 1.2 x 1.2 x 0.8 cm cyst of the lower pole of theleftkidney.4. Echogenic foci are identified bilaterally which have no correspondingCT findings. These are most likely vascular or or islands of parapelvicfat. Signed:Brittney Welsh M.D.July 11, 2012 at 5:00:06 PM [id number] Signed TT/TT If you are the referring physician and would like to consult with theradiologist who provided this interpretation, please contact Brittney Mccormack M.D. at [phone]. If this radiologist is unavailable, youwillbe directed to another radiologist to assist. If you are a patient with a question regarding this report, pleasecontactyour referring physician directly. Professional Interpretat ion Provided By: [employer]!, Phone , These documents contain legally protected and confidential healthinformation intended only for the use of the individual or entity [facility]. If you are not the intended recipient, you are hereby notifiedthatany disclosure, copying, distribution, or other use of these documents isstrictly prohibited. If you have received this informa tion in error,pleasenotify the sender immediately and arrange for the return or destructionofthese documents. Dictated on 07/11/12 1528 by Brittney Welsh MDTranscribed on 07/11/12 1825 by ITS IMPORTS ign by Brittney Welsh MD on 07/11/121825 Sign by: Brittney Welsh MD 1-Qdz-303066:59 TRANSVAGINAL NON- Radiology Report See Note (Normal) Comments: CLINICAL:Female, 71 years old. Severe right lower quadrant pain. Uterine fibroiddemonstrated on CT exam. ULTRASOUND TRANSVAGINAL TECHNIQUE:Transvaginal (transabdominal imaging was attempted; however, the patientcould not adequately fill her bladder. COMPARISON:Prior abdomen and pelvic CT exam of July 04, 2012. FINDINGS:Normal uterine size measuring 6.5 x 5.0 x 3.6 cm. the uterus is midlineandretrov erted. Centrally located within the myometrium, there is a complex massmeasuring2.5 x 3.0 cm. The mass is primarily hyperechoic with multiple smallanechoic spaces and does demonstrate internal vascular ity. A separateendometrial echo is not identified. Nabothian cysts of the cervix. The ovaries are not identified. There is no free fluid in the pelvis. IMPRESSION:1. 2.5 x 3.0 cm complex hyperechoic s olid and cystic mass centrallylocated without identification of a separate endometrial cavity. Thisdoesnot have the typical appearance of a fibroid; although, a degeneratingfibroid may have a bizarre a ppearance. An endometrial mass is suspected.2. The ovaries are not identified bilaterally. On the abdomen andpelvisCT exam of July 04, 2012 the ovarian/adnexal structures appearunremarkable and smal l.3. No identified free fluid. Signed:Brittney Welsh M.D.July 11, 2012 at 4:45:28 PM [id number] Signed TT/TT If you are the referring physician and would like to consult with sebastian taylorogjudi who provided this interpretation, please contact Brittney Mccormack M.D. at [phone]. If this radiologist is unavailable, youwillbe directed to another radiologist to assist. If you are a p atient with a question regarding this report, pleasecontactyour referring physician directly. Professional Interpretation Provided By: [employer]!, Phone , These documents contain legally protected and confidential healthinformation intended only for the use of the individual or entity namedabove. If you are not the intended recipient, you are hereby notifiedthatany discl osure, copying, distribution, or other use of these documents isstrictly prohibited. If you have received this information in error,pleasenotify the sender immediately and arrange for the return or dest ructionofthese documents. Dictated on 07/11/121458 by Blaise CARRANZA,TheresaTranscribed on 07/11/121651 by ITS IMPORTSign by Blaise CARRANZA,Brittney on 07/11/121652 Sign by: Blaise CARRANZA,Brittney 06-Jul-2012 B12 615 pg/mL Range: 211-911 9:44 (Normal) Comments: Effective 2012:44 CBCD ANC 4.2 3/uL (Normal) Range: 2.0-7.7 IG% 0.50 % (Abnormal) Range: 0.0-0.0 B% 1.1 % (Abnormal) Range: 0-1 E% 4.0 % (Normal) Range: 0-5 L% 18.9 % (Abnormal) Range: 19-41 M% 9.0 % (Normal) Range: 0-10 N% 66.5 % (Normal) Range: 47-70 MPV 9.7 fL (Normal) Range: 6.2-12.0 PLT 236 K/mm3 (Normal) Range: 150-450 RDWCV 14.4 % (Normal) Range: 11.6-14.6 RDWSD 42.9 fL (Normal) Range: 35.1-43.9 MCHC 32.7 g/dL (Normal) Range: 32-36 MCH 27.6 pg (Normal) Range: 27.0-32.0 MCV 84.3 fL (Normal) Range: 81-99 HCT 39.1 % (Normal) Range: 37-47 HGB 12.8 g/dL (Normal) Range: 12.0-15.0 RBC 4.64 {M/mm3} (Normal) Range: 4.2-5.4 WBC 6.3 {k/mm3} (Normal) Range: 4.4-11.0 :44 CMP GAP 6 (Normal) Range: 5-15 CO2 29.0 mmol/L (Normal) Range: 21.0-32.0 CL 107 mmol/L (Normal) Range: 98-107 K 4.2 mmol/L (Normal) Range: 3.5-5.1 NA 142 mmol/L (Normal) Range: 136-145 BIT 0.50 mg/dL (Normal) Range: 0.00-1.00 ALT 20 U/L (Normal) Range: 12-78 ALK 109 U/L (Normal) Range: 50-136 AST 12 U/L (Abnormal) Range: 15-37 CA 9.4 mg/dL (Normal) Range: 8.5-10.1 AG 1.1 {RATIO} (Normal) Range: 0.9-2.4 GLOB 3.3 g/dL (Normal) Range: 2.7-4.2 ALB 3.7 g/dL (Normal) Range: 3.4-5.0 TPROT 7.0 g/dL (Normal) Range: 6.4-8.2 BC 11.5 {RATIO} (Normal) Range: 10-20 GFRAA 52 mL/min (Abnormal) CREAT 1.3 mg/dL (Abnormal) Range: 0.6-1.0 GFR 43 mL/min (Abnormal) BUN 15 mg/dL (Normal) Range: 7-18 GLU 84 mg/dL (Normal) Range: 70-110 :44 CRP < 2.90 mg/L (Normal) Range: 0.0-3.0 Comments: C-Reactive Protein (CRP) provides useful information for thediagnosis, therapy and monitoring of inflammatory processesand associated diseases. For the evaluation of Relative Riskfor Cardiovascular Dise ase, a High Sensitivity CRP (HSCRP)should be ordered. :44 LIPID VLDL 15 mg/dL (Normal) Range: 5-40 HDL 81 mg/dL (Normal) Comments: Reference RangeHDL <40 mg/dL Low HDL CholesterolHDL >or= 60 mg/dL High HDL Cholesterol LDL 114 mg/dL (Normal) Range: 0-130 TRIG 73 mg/dL (Normal) Comments: Serum Triglycerides Reference IntervalNormal <150 mg/dLBorderline high 150 - 199 mg/dLHigh 200 - 499 mg/ dLVery High > or = 500 mg/dL CHOL 210 mg/dL (Abnormal) Comments: <200 mg/dL [id number] mg/dL Borderline>240 mg/dL High Risk :44 MG 1.8 mg/dL (Normal) Range: 1.8-2.4 :44 SED tSEDRATE 18 mm/h (Normal) Range: 0-30 :44 TSH 8.94 {uIU/mL} (Abnormal) Range: 0.358-3.74 :44 VITD 90.8 ng/mL (Normal) Comments: Vitamin D 25(OH) Status RangeDeficiency <20 ng/mL (50nmol/L)Insufficiency 20 - 30 ng/mL (50 - 75 nmol/L)Sufficiency 30 - 100 ng/mL (75 - 250 nm ol/L)Toxicity >100 ng/mL (250 nmol/L)Effective 201204-Jul-201224-Abo-184407:29 ABDOMEN/PELVIS WITH CONTRAST Radiology Report See Note (Normal) Comments: PROCEDURE: CT ABDOMEN AND PELVIS WITH CONTRAST REASON FOR EXAM: Female, 71 years old. Three-month history of rightlower quadrant pain. No prior surgical history is reported RADIATION DO DANTE (If Sup plied By Facility): CTDIvol = ( 23.35 ) mGy, DLP=( 2031.61 ) mGycm TECHNIQUE: Transaxial images were obtained from the dome of thediaphragmto the symphysis pubis with oral contrast. 80 ml of Optiray 320 contrastwas administered. Additionally a delayed post-contrast image series wasobtained. Multiplanar coronal and sagittal images were reformatted.Imageswere reviewed in soft tissue, hepatic, bone a nd pulmonary windows. COMPARISON:1. CT abdomen with and without contrast, September 08, 2009.2. Unenhanced CT abdomen and pelvis, August 18, 2008. (No report isavailablefor review at this time.) FINDINGS:The visualized lung bases are unremarkable. No pleural or pericardialeffusion is present. The visualized portions of the heart are withinnormallimits. Stable, benign appearing liver. A 1 cm cyst remains wit hin the medialsegment of the left hepatic lobe. Normal gallbladder and extrahepaticbiliary system. Normal spleen. Normal pancreas. Normal bilateral adrenal glands. Subjectively normally sized right ki dney. A stable 1.7 x 1.2 x 2.0-cmcystremains within its upper pole. No suspicious renal mass is evident.Immediate post-contrast images demonstrate normal renal corticalenhancement. The delayed phase o f imaging also demonstrates normalexcretion of contrast from the kidney. No hydronephrosis is present.Grossly the right ureter appears normal. Normal left kidney. Immediate post-contrast images demonstr ate normalrenalcortical enhancement. The delayed phase of imaging also demonstratesnormal excretion of contrast from the kidney. New or more evident sinceprior studies is a too small to well characteri ze 8 mm low attenuationlesion located laterally within the interpolar region (series 1003, image43). No suspicious renal mass is evident. No hydronephrosis is present.The left ureter is normal. The stom ach is well distended and with undigested matter and contrast.Nolarge hiatal hernia is observed. The small bowel is well opacified withcontrast. No luminal distention or focal bowel wall thickening is detected. Contrast also is identified within the entirety of the colon.The lumen of the majority of the colon is diminished. Scattereddiverticula are observed. No focal mucosal thickening is identifi ed.Theappendix is visualized and appears normal. No acute mesenteric indurationis identified within the right lower quadrant or elsewhere within theabdomen and pelvis. No free intraperitoneal air is guero ntified. No grossascites is identified. The abdominal aorta is ectatic following the course of the lumbar spine.It demonstrates no gross calcification or aneurysmal quality. Normalinferior vena cava. Normal retroperitoneum. The bladder is incompletely distended. It contains no calcifications.Partial opacification of the bladder is achieved during the delayed phaseof imaging. A small left-sided Hut ch diverticulum may be present. Asmallleft ureteral jet also is observed. The uterus is midline but retroverted in position. An approximately 3.0x2.8 x 2.7 cm region of heterogeneously diminished atte nuation is presentwithin the uterine fundud. Retrospectively it appears insignificantlychanged in comparison with the unenhanced examination of 2009. Theendometrial cavity is not clearly visualized. No suspicious adnexal orother pelvic mass lesion is identified. No significant free fluidcollection is identified within the cul-de-sac. There is a stable, very small umbilical hernia containing fat. Mar kedlumbar levoscoliosis remains. Multilevel degenerative disk disease ispresent. IMPRESSION:1. No acute abdominopelvic pathology identified.2. Scattered colonic diverticula.3. Probable uterine leiom yoma. Suggest follow-up pelvic sonography formore definitive evaluation.4. Marked lumbar levoscoliosis and multilevel degenerative disk disease.5. Stable hepatic and right renal cysts.6. New too sma ll to well characterize low-attenuation left renal lesion,probably personal financial representative of a cyst. Consider follow-up renal sonographyforfurther evaluation as clinically warranted. Signed:Matilda AvilesJuly 04, 2012 at 5:12:21 PM [id number] Signed DL/DL If you are the referring physician and would like to consult with theradiologist who provided this interpretation, please contact Ofelia Kyle at [phone]. If this radiologist is unavailable, youwillbe directed to another radiologist to assist. If you are a patient with a question regarding this report, pleasecontactyo ur referring physician directly. Professional Interpretation Provided By: [employer]!, Phone , These documents contain legally protected and confidential healthinformation intended only for the use of the individual or entity namedabove. If you are not the intended recipient, you are hereby notifiedthatany disclosure, copying, distribution, or other use of these documents isstrictly prohibited. If you have received this information in error,pleasenotify the sender immediately and arrange for the return or destructionofthese documents. Dictated on 07/04/12 1608 by Salinas Newsome MDTranscribed on 07/04/121713 by ITS IMPORTSign by Salinas Champion MD on 07/04/121714 Sign by: Salinas Champion MD [id number] CRE GFRAA 41 mL/min (Abnormal) GFR 34 mL/min (Abnormal) CREAT 1.6 mg/dL (Abnormal) Range: 0.6-1.0 [id number]:15 BMP GAP 7 (Normal) Range: 5-15 CO2 29.0 mmol/L (Normal) Range: 21.0-32.0 CL 107 mmol/L (Normal) Range: 98-107 K 4.5 mmol/L (Normal) Range: 3.5-5.1 NA 143 mmol/L (Normal) Range: 136-145 CA 9.7 mg/dL (Normal) Range: 8.5-10.1 BC 16.4 {RATIO} (Normal) Range: 10-20 GFRAA 63 mL/min (Normal) GFR 52 mL/min (Abnormal) CREAT 1.1 mg/dL (Abnormal) Range: 0.6-1.0 BUN 18 mg/dL (Normal) Range: 7-18 GLU 80 mg/dL (Normal) Range: 70-110 :15 TSH 3.05 {uIU/mL} (Normal) Range: 0.358-3.74 :22 B12 577 pg/mL (Normal) Range: 211-946 Comments: Performed at: [address] [id number] Director: Patito Segovia MD, Phone: [phone] :[phone] CBCMD RBCM NORM C+C {NORMAL} (Normal) PE ADEQUATE (Normal) BAS 1 % (Normal) Range: 0-1 EOS 2 % (Normal) Range: 0-5 MON 8 % (Normal) Range: 0-10 LYMPH 25 % (Normal) Range: 19-41 BAND 1 % (Normal) Range: 0-5 PMN 63 % (Normal) Range: 47-70 FAWAD 100 (Normal) ANC 4.7 3/uL (Normal) Range: 2.0-7.7 PLT 215 K/mm3 (Normal) Range: 150-450 RDW 14.9 % (Abnormal) Range: 11.6-14.6 MCHC 34.5 g/dL (Normal) Range: 32-36 MCH 29.4 pg (Normal) Range: 27.0-32.0 MCV 85.3 fL (Normal) Range: 81-99 HCT 35.4 % (Abnormal) Range: 37-47 HGB 12.2 g.dL (Normal) Range: 12.0-15.0 RBC 4.15 {M/mm3} (Abnormal) Range: 4.2-5.4 WBC 6.7 K/mm3 (Normal) Range: 4.4-11.0 :22 CMP GAP 8 (Normal) Range: 5-15 CO2 27.0 mmol/L (Normal) Range: 21.0-32.0 CL 105 mmol/L (Normal) Range: 98-107 K 4.3 mmol/L (Normal) Range: 3.5-5.1 NA 140 mmol/L (Normal) Range: 136-145 BIT 0.40 mg/dL (Normal) Range: 0.00-1.00 ALT 18 U/L (Normal) Range: 12-78 ALK 97 U/L (Normal) Range: 50-136 AST 11 U/L (Abnormal) Range: 15-37 CA 9.2 mg/dL (Normal) Range: 8.5-10.1 AG 1.2 {RATIO} (Normal) Range: 0.9-2.4 GLOB 3.1 g/dL (Normal) Range: 2.7-4.2 ALB 3.8 g/dL (Normal) Range: 3.4-5.0 TPROT 6.9 g/dL (Normal) Range: 6.4-8.2 BC 15.0 {RATIO} (Normal) Range: 10-20 GFRAA 48 mL/min (Abnormal) GFR 40 mL/min (Abnormal) CREAT 1.4 mg/dL (Abnormal) Range: 0.6-1.0 BUN 21 mg/dL (Abnormal) Range: 7-18 GLU 94 mg/dL (Normal) Range: 70-110 :22 LIPID VLDL 18 mg/dL (Normal) Range: 5-40 LDL 124 mg/dL (Normal) Range: 0-130 HDL 71 mg/dL (Normal) Comments: Reference Range HDL <40 mg/dL Low HDL Cholesterol HDL >or= 60 mg/dL High HDL Cholesterol TRIG 91 mg/dL (Normal) Comments: Serum Triglycerides Reference Interval Normal <150 mg/dL Borderline high 150 - 199 mg/dL High 200 - 499 mg/dL Very High > or = 500 mg/dL CHOL 213 mg/dL (Abnormal) Comments: <200 mg/dL Desirable 200-240 mg/dL Borderline >240 mg/dL High Risk :22 VITD 46.2 ng/mL (Normal) Range: 30.0-100.0 Comments: Vitamin D deficiency has been defined by the [place] of[place] and an Endocrine Society practice guideline as alevel of serum 25-OH vitamin D less than 20 ng/mL (1,2).The Endocrine Society went on to further define vitamin Dinsufficiency as a level between 21 and 29 ng/mL (2).1. IOM ([place] of [employer]). 2010. Dietary reference intakes for calcium and D. [place]: The National Academies Press.2. Seng MF, Theresa ROMERO, Kieran KOWALSKI, et al. Evaluation, treatment, and prevention of vitamin D deficiency: an Endocrine Society clinical practice guideline. JCEM. 2010; 96(7):1911-30. [id number] BREAST UNILATERAL Radiology Report See Note (Normal) Comments: PROCEDURE: ULTRASOUND BREAST(S) - LEFT REASON FOR EXAM: Female, 71 years old. Four month follow- upexamination. TECHNIQUE: Axial and longitudinal images of the LEFT breast wereperformed with a hi gh resolution ultrasound transducer. COMPARISON: Comparison is made with prior mammogram and priorultrasounddated June 22, 2011. FINDINGS: LEFT BREAST:At the 5 o'clock radiant of the breast at a time he is from the nipple,there is a persistent 1.7-cm by 0.5-cm by 1.5-cm well- defined, hypoechoicnodule. This is unchanged. This most likely represents a fibroadenoma.The previously seen fluid collecti on and echogenic nodule at the twoo'clock position of the breast have cleared. IMPRESSION:Stable nodule at the 5 o'clock position of the breast at 8 cm from thenipple. This most likely represents a fib roadenoma. A 6 month follow-upis recommended. ASSESSMENT CATEGORY:BIRADS Category 3: Probably Benign Finding - Initial Ygakl-HwaexvatFswomi-rm Suggested. Signed:Dashawn Rowe M.D.November 09, 2011 at 2:49:17 PM [id number] Signed GP/GP If you are the referring physician and would like to consult with theradiologist who provided this interpretation, please contact Herb blake M.D. at [phone]. If this radiologist is unavailable, youwill be directed to another radiologist to assist. If you are a patient with a question regarding this report, pleasecontactyour referri ng physician directly. Professional Interpretation Provided By: [employer]!, Phone , These documents contain legally protected and confidential healthinformation intended o nly for the use of the individual or entity namedabove. If you are not the intended recipient, you are hereby notifiedthatany disclosure, copying, distribution, or other use of these documents isstrictl y prohibited. If you have received this information in error,pleasenotify the sender immediately and arrange for the return or destructionofthese documents. Dictated on 11/09/11 1326 by Jennifer Rowe MDranscribed on 11/09/11 1455 by ITS IMPORTSign by Dashawn Rowe MD on 11/09/11 1456 Sign by: Dashawn Rowe MD [id number] BREAST UNILATERAL Radiology Report See Note (Normal) Comments: PROCEDURE: ULTRASOUND BREAST(S) - LEFT REASON FOR EXAM: Female, 70 years old. Palpable lump left breast. TECHNIQUE: Axial and longitudinal images of the LEFT breast wereperformed with a high res olution ultrasound transducer. COMPARISON: Comparison is made with prior mammogram dated [id number]. FINDINGS: LEFT BREAST:The lateral half of the left breast was examined. At the two o'clockradian t of the breast at 8 cm from the nipple, there is a 1.4 cm x 1.5 cmx0.9 cm echogenic nodule with anechoic center. This may represent a smallhematoma. Adjacent to this, there is a 1 cm x 0.6 cm x 0.6 c m fluidcollection with debris within it. This may represent posttraumaticchanges. At T5 o'clock is in the breast, at a time is from the nipple,there is a 1.4 cm x 1.6 cm x 0.4 cm hypoechoic well-defin ed nodule. A 4month repeat sonogram is recommended. IMPRESSION:Findings as described. These most likely are secondary to the recenttrauma. A follow-up sonogram in 4 months is recommended. ASSESSMENT CATEGORY:BIRADS Category 3: Probably Benign Finding - Initial Tdvpr-BuhijhmtQsphfs-ln Suggested. To consult with a radiologist regarding this report, please call our [id number] line @ Dictated on 06/22/11 1428 by Soledad CARRANZA,Tacobed on 06/22/11 1547 by ITS IMPORTSign by Dashawn Rowe MD on 06/22/11 1548 Sign by: ___ Dashawn Rowe MD [id number] UNILAT LT DIAG DIGITAL & CAD Radiology Report See Note (Normal) Comments: MAMMOGRAPHY - UNILATERAL DIAGNOSTIC: LEFT BREAST REASON FOR EXAM: Female, 70 years old. Left breast lumps. PERTINENT HISTORY: The patient presents with a large bruise in the leftupper o uter quadran t. TECHNIQUE: Digital examination. Mediolateral oblique (MLO) andcraniocaudad (CC) views of the breast were obtained. CAD: CAD wasperformedon this study. COMPARISON: Comparison is made with prior e xamination dated October 1110 FINDINGS:The breast composition is composed of scattered fibroglandular densities. Since prior examination, there are two non-densities in the upper outeraspect of t he left breast. Correlation with ultrasound is recommended.Nocluster of microcalcification is seen. No other significant abnormalities are identified. IMPRESSION:Two new nodular densities in the upper outer aspect of the left breast.Correlation with ultrasound is recommended. ASSESSMENT CATEGORY:BIRADS Category 0: Need additional imaging evaluation and/or priormammograms for comparison. A letter reg arding these results will be sentto the patient by the facility within 30 days. Approximately 10% of breast cancers are not detected by mammography. Anormal mammogram should not delay biopsy of a clini darius suspiciousabnormality. To consult with a radiologist regarding this report, please call our [id number] line @ Dictated on 06/22/11 1357 by Taco Rowe MDbed on 1450 by ITS IMPORTSign by Dashawn Rowe MD on 06/22/11 1451 Sign by: Dashawn Rowe MD [id number]:14 CERV SPINE,MIN 4 VIEWS Radiology Report See Note (Normal) Comments: PROCEDURE: X-RAY - CERVICAL SPINE REASON FOR EXAM: Female, 70 years old. Neck pain TECHNIQUE: Six views of the cervical spine were obtained. COMPARISON: None FINDINGS:Normal craniov ertebral gaby ction. Normal anterior atlantoaxialarticulation. Normal odontoid process. Normal cervical lordosis. Uncovertebral hypertrophy is presentbilaterally. There is mild disc space narrowing at C6-7. There is mild neuralforaminalnarrowing on the right at numerous levels. There is mild neuralforaminalnarrowing on the left at numerous levels, with moderate narrowing on theleft at C7-T1. Normal visualized soft tissue structures. IMPRESSION:Moderate degenerative changes are scattered throughout the cervicalspine.There is no evidence of severe disc space narrowing or neural foraminalnarrowing. To consult yoon mckee radiologist regarding this report, please call our [id number] line @ Dictated on 04/13/11 1408 by LISANDRA DUMONT MDTranscribed on 04/14/11 1628 by ITS IMPORTSign by Mook DUMONT MD on 04/14/11 1629 Sign by: LISANDRA DUMONT MD [id number]:38 CBCD,SMEAR DIFF RED CELL MORPH SeeNote {NORMAL} (Normal) Comments: Result: NORM C+C PLT EST SeeNote (Normal) Comments: Result: ADEQUATE EOS 4 % (Normal) Range: 0-5 MONOCYTE 8 % (Normal) Range: 0-10 LYMPH 24 % (Normal) Range: 19-41 BAND 2 % (Normal) Range: 0-5 SEGS 62 % (Normal) Range: 47-70 CELLS COUNTED 100 (Normal) ABSOLUTE NEUT 3.3 3/uL (Normal) Range: 2.0-7.7 PLT 231 K/mm3 (Normal) Range: 150-450 RDW 13.8 % (Normal) Range: 11.6-14.6 MCHC 34.0 g/dL (Normal) Range: 32-36 MCH 28.5 pg (Normal) Range: 27.0-32.0 MCV 83.8 fL (Normal) Range: 81-99 HCT 36.6 % (Abnormal) Range: 37-47 HGB 12.4 g/dL (Normal) Range: 12.0-16.0 RBC 4.37 {M/mm3} (Normal) Range: 4.2-5.4 WBC 5.4 K/mm3 (Normal) Range: 4.4-11.0 :38 COMP METABOLIC GAP 7 (Normal) Range: 5-15 CO2 28.0 mmol/L (Normal) Range: 21.0-32.0 CL 106 mmol/L (Normal) Range: 98-107 K 4.6 mmol/L (Normal) Range: 3.5-5.1 NA 141 mmol/L (Normal) Range: 136-145 T BILI 0.40 mg/dL (Normal) Range: 0.00-1.00 ALT 20 U/L (Normal) Range: 12-78 ALK P 102 U/L (Normal) Range: 50-136 AST 15 U/L (Normal) Range: 15-37 CA 9.0 mg/dL (Normal) Range: 8.5-10.1 A/G 1.2 {RATIO} (Normal) Range: 0.9-2.4 GLOB 3.3 g/dL (Normal) Range: 2.7-4.2 ALB 3.8 g/dL (Normal) Range: 3.4-5.0 T PROT 7.1 g/dL (Normal) Range: 6.4-8.2 BUN/CRE 15.8 {RATIO} (Normal) Range: 10-20 EST GFR - AA 57 mL/min (Abnormal) EST GFR 47 mL/min (Abnormal) CREAT,SERUM 1.2 mg/dL (Abnormal) Range: 0.6-1.0 BUN 19 mg/dL (Abnormal) Range: 7-18 GLU 84 mg/dL (Normal) Range: 70-110 :38 LIPID LDL 104 mg/dL (Normal) Range: 0-130 VLDL 16 mg/dL (Normal) Range: 5-40 HDL 67 mg/dL (Normal) Comments: Reference Range HDL <40 mg/dL Low HDL Cholesterol HDL >or= 60 mg/dL High HDL Cholesterol CHOL 187 mg/dL (Normal) Comments: <200 mg/dL Desirable 200-240 mg/dL Borderline >240 mg/dL High Risk TRIG 79 mg/dL (Normal) Comments: Serum Triglycerides Reference Interval Normal <150 mg/dL Borderline high 150 - 199 mg/dL High 200 - 499 mg/dL Very High > or = 500 mg/dL :38 VIT D,25 54490 47.8 ng/mL (Normal) Range: 30.0-100.0 Comments: Vitamin D deficiency has been defined by the [place] and an Endocrine Society practice guideline as alevel of serum 25-OH vitamin D less than 20 ng/mL (1,2).The Endocrine Society went on to further define vitamin Dinsufficiency as a level between 21 and 29 ng/mL (2).1. IOM ([place] [employer]). 2011. Dietary reference intakes for calcium and D. [place]: The National Academies Press.2. Seng MF, Theresa ROMERO, Kieran KOWALSKI, et al. Evaluation, treatment, and prevention of vitamin D deficiency: an Endocrine Society clinical practice guideline. JCEM. 2010; 96(7): 1911-30.Performed at: [facility] [address] [id number] Director: Patito Segovia MD, Phone: [phone] :[phone] VITAMIN B12 781 pg/mL (Normal) Range: 254-1320 Comments: There is a low frequency possibility that high titers ofintrinsic blocking antibodies may not be completely inactivated during the reaction pretreatment stepof this testing method. If test results are i n conflictwith the clinical diagnosis, patient should be testedfor the presence of intrinsic factor blocking antibodies. [id number] DEXA BONE DENSITY STUDY (HP) Comments: appt 03/01/11 Radiology Report See Note (Normal) Comments: PROCEDURE: DUAL ENERGY X-RAY ABSORPTIOMETRY / DEXA. REASON FOR EXAM: Female, 70 years old. The patient is postmenopausal. TECHNIQUE: Bone Mineral Density (BMD) measurements of lumbar s pine andbila teral hips were obtained. COMPARISON: Comparison is made with prior examination dated . FINDINGS: Lumbar Spine (L1-L4): g/cm2 (1.272) / T- score (0.8) / Z-score (2.4)Left Femur Tot al: g/cm2 (0.920) / T-score (-0.7) / Z-score (0.7)Right Femur Total: g/cm2 (0.975) / T-score (-0.3) / Z-score (1.1) Since prior study, there has been a bone loss of 1.1%. IMPRESSION:The patien t is considered normal, as outlined below according to WorldHealth Organization (WHO) criteria. Fracture risk is low. Reference Information:The T-score is the number of standard deviations above or bel ow thestandard which is normal for young adults at their peak bone mineraldensity. The World Health Organization (WHO) interprets the T-scores asfollows: Above - 1 Normal bone densityBetween -1 and -2.5 OsteopeniaEqual to / or below -2.5 Osteoporosis As a practical clinical guideline, osteopenia may be graded as follows:Mild -1 through - 1.5Moderate -1.6 through -2.0Severe -2.1 through -2.4 The Z-score is the number of standard deviations above or below age-matchedcontrols. A Z-score of less than -1.5 would be considered abnormal. References:1. NIH Osteoporosis and Related Bone Disea ses http://www.osteo.org2. International Society for Clinical Densitometry http://www.iscd.org3. National Osteoporosis Foundation http://www.nof.org Dictated on 02/01/11 1532 by Phillip Rowe MDribed on 02/02/11 0842 by ITS IMPORTSign by Dashawn Rowe MD on 02/02/11 0843 Sign by: Dashawn Rowe MD [id number]:03 Thin prep Pap Comments: Source.............Cervical;EndocervicalNo. of containers..01 CYTYC Thin Prep VialPERFORMED BY: [facility] [id number] Information: [id number] ([id number]) Note: PAPSMR (Normal) Comments: The Pap smear is a screening test designed to aid in the detection ofpremalignant and malignant conditions of the uterine cervix. It is not adiagnostic procedure and should not be used as the sole mean s of detectingcervical cancer. Both false-positive and false-negative reports do occur. .This liquid based ThinPrep(R) pap test w as screened with theuse of an image guided system.The HPV DNA reflex criteria were not met with this specimen resulttherefore, no HPV testing was performed. . See Note . (Normal) DIAGNOSIS: SPRCS (Normal) Comments: NEGATIVE FOR INTRAEPITHELIAL LESION AND MALIGNANCY.Satisfactory for evaluation. Endocervical and/or squamous metaplasticcells (endocervical component) are present.V72.31 ; Routine gynecolog ical examina Deidre Aguila [employer] (ASCP) [id number]:01 BILAT SCRN DIGITAL & CAD Radiology Report See Note (Normal) Comments: MAMMOGRAPHY - BILATERAL SCREENING REASON FOR EXAM: Female, 70 years old. Routine annual screeningexamination. PERTINENT HISTORY: Non-contributory. TECHNIQUE: Digital examination. Me diolateral o blique (MLO) andcraniocaudad (CC) views of both breasts were obtained. CAD: CAD wasperformed on this study. COMPARISON: Comparison is made with prior study dated January 15, 2009. FINDINGS:The breast composition is composed of scattered fibroglandular densities. There are no masses or suspicious microcalcifications. No other significant abnormalities are identified. There has been nosignificant patricia nge since the prior study. IMPRESSION:Normal bilateral screening mammogram. One year follow-up recommended. (A) ASSESSMENT CATEGORY:BIRADS Category 2: Benign finding(s). A letter regarding these resu ltswill be sent to the patient by the facility within 30 days. Approximately 10% of breast cancers are not detected by mammography. Anormal mammogram should not delay biopsy of a clinically suspiciousa bnormality. Dictated on 11/10/10 1218 by Yari Rowe MDscribed on 11/10/10 1452 by ITS IMPORTSign by Dashawn Rowe MD on 11/10/10 1453 Sign by: Dashawn Rowe MD [id number]:16 COMP METABOLIC Comments: appt 11/05/10 GAP 10 (Normal) Range: 5-15 CO2 26.0 mmol/L (Normal) Range: 21.0-32.0 CL 106 mmol/L (Normal) Range: 98-107 K 4.7 mmol/L (Normal) Range: 3.5-5.1 NA 142 mmol/L (Normal) Range: 136-145 T BILI 0.60 mg/dL (Normal) Range: 0.00-1.00 ALT 23 U/L (Normal) Range: 12-78 ALK P 120 U/L (Normal) Range: 50-136 AST 15 U/L (Normal) Range: 15-37 CA 8.7 mg/dL (Normal) Range: 8.5-10.1 A/G 1.1 {RATIO} (Normal) Range: 0.9-2.4 GLOB 3.3 g/dL (Normal) Range: 2.7-4.2 ALB 3.7 g/dL (Normal) Range: 3.4-5.0 T PROT 7.0 g/dL (Normal) Range: 6.4-8.2 BUN/CRE 21.0 {RATIO} (Abnormal) Range: 10-20 EST GFR - AA 72 mL/min (Normal) EST GFR 59 mL/min (Abnormal) CREAT,SERUM 1.0 mg/dL (Normal) Range: 0.6-1.0 BUN 21 mg/dL (Abnormal) Range: 7-18 GLU 79 mg/dL (Normal) Range: 70-110 :16 LIPID VLDL 24 mg/dL (Normal) Range: 5-40 LDL 120 mg/dL (Normal) Range: 0-130 HDL 50 mg/dL (Normal) Comments: Reference Range HDL <40 mg/dL Low HDL Cholesterol HDL >or= 60 mg/dL High HDL Cholesterol TRIG 120 mg/dL (Normal) Comments: Serum Triglycerides Reference Interval Normal <150 mg/dL Borderline high 150 - 199 mg/dL High 200 - 499 mg/dL Very High > or = 500 mg/dL CHOL 194 mg/dL (Normal) Comments: <200 mg/dL Desirable 200-240 mg/dL Borderline >240 mg/dL High Risk :16 TSH 0.99 {uIU/mL} (Normal) Range: 0.358-3.74 [id number]:16 VIT D,25 94534 45.6 ng/mL (Normal) Range: 32.0-100.0 Comments: Recent studies consider the lower limit of 32.0 ng/mL to zoraida threshold for optimal health.Everardo HEREDIA. J Nutr. 2004;135(2):317-22.Performed at: - [facility] [id number] Director: Patito Segovia MD, Phone: [phone] [id number]:16 VITAMIN B12 582 pg/mL (Normal) Range: 254-1320 Comments: There is a low frequency possibility that high titers ofintrinsic blocking antibodies may not be completely inactivated during the reaction pretreatment stepof this testing method. If test results are i n conflictwith the clinical diagnosis, patient should be testedfor the presence of intrinsic factor blocking antibodies. :20 CBCD,SMEAR DIFF PLT EST SeeNote (Normal) Comments: Result: ADEQUATE RED CELL MORPH SeeNote {NORMAL} (Normal) Comments: Result: NORM C+C EOS 3 % (Normal) Range: 0-5 LYMPH 26 % (Normal) Range: 19-41 MONOCYTE 7 % (Normal) Range: 0-10 SEGS 64 % (Normal) Range: 47-70 ABSOLUTE NEUT 3.4 3/uL (Normal) Range: 2.0-7.7 CELLS COUNTED 100 (Normal) MCHC 33.7 g/dL (Normal) Range: 32-36 PLT 256 K/mm3 (Normal) Range: 150-450 RDW 14.1 % (Normal) Range: 11.6-14.6 MCH 28.4 pg (Normal) Range: 27.0-32.0 MCV 84.2 fL (Normal) Range: 81-99 HCT 40.1 % (Normal) Range: 37-47 HGB 13.5 g/dL (Normal) Range: 12.0-16.0 RBC 4.76 {M/mm3} (Normal) Range: 4.2-5.4 WBC 5.4 K/mm3 (Normal) Range: 4.4-11.0 :20 COMP METABOLIC GAP 9 (Normal) Range: 5-15 CL 105 mmol/L (Normal) Range: 98-107 CO2 26.0 mmol/L (Normal) Range: 21.0-32.0 K 4.4 mmol/L (Normal) Range: 3.5-5.1 NA 140 mmol/L (Normal) Range: 136-145 T BILI 0.60 mg/dL (Normal) Range: 0.00-1.00 ALK P 120 U/L (Normal) Range: 50-136 ALT 21 U/L (Normal) Range: 12-78 A/G 1.1 {RATIO} (Normal) Range: 0.9-2.4 AST 16 U/L (Normal) Range: 15-37 CA 9.7 mg/dL (Normal) Range: 8.5-10.1 ALB 3.9 g/dL (Normal) Range: 3.4-5.0 BUN/CRE 19.2 {RATIO} (Normal) Range: 10-20 GLOB 3.7 g/dL (Normal) Range: 2.7-4.2 T PROT 7.6 g/dL (Normal) Range: 6.4-8.2 CREAT,SERUM 1.2 mg/dL (Abnormal) Range: 0.6-1.0 EST GFR 48 mL/min (Abnormal) EST GFR - AA 58 mL/min (Abnormal) BUN 23 mg/dL (Abnormal) Range: 7-18 GLU 92 mg/dL (Normal) Range: 70-110 :20 LIPID HDL 63 mg/dL (Normal) Comments: Reference Range HDL <40 mg/dL Low HDL Cholesterol HDL >or= 60 mg/dL High HDL Cholesterol LDL 114 mg/dL (Normal) Range: 0-130 VLDL 17 mg/dL (Normal) Range: 5-40 CHOL 194 mg/dL (Normal) Comments: <200 mg/dL Desirable 200-240 mg/dL Borderline >240 mg/dL High Risk TRIG 87 mg/dL (Normal) Comments: Serum Triglycerides Reference Interval Normal <150 mg/dL Borderline high 150 - 199 mg/dL High 200 - 499 mg/dL Very High > or = 500 mg/dL :20 TSH 0.38 {uIU/mL} (Normal) Range: 0.358-3.74 :20 VIT D,25 27194 43.2 ng/mL (Normal) Range: 32.0-100.0 Comments: Recent studies consider the lower limit of 32.0 ng/mL to zoraida threshold for optimal health.Mcgee BW. J Nutr. 2004;135(2):317-22.Performed at: [facility] [id number] Director: Patito Segovia MD, Phone: [phone] [id number]:20 VITAMIN B12 516 pg/mL (Normal) Range: 254-1320 Comments: There is a low frequency possibility that high titers ofintrinsic blocking antibodies may not be completely inactivated during the reaction pretreatment stepof this testing method. If test results are i n conflictwith the clinical diagnosis, patient should be testedfor the presence of intrinsic factor blocking antibodies. :44 VIT D,25 15438 38.6 ng/mL (Normal) Range: 32.0-100.0 Comments: Recent studies consider the lower limit of 32.0 ng/mL to zoraida threshold for optimal health.Mcgee BW. J Nutr. 2004;135(2):317-22.Performed at: [facility] [id number] Director: Patito Segovia MD, Phone: [phone] :[phone] VITAMIN B12 398 pg/mL (Normal) Range: 254-1320 Comments: There is a low frequency possibility that high titers ofintrinsic blocking antibodies may not be completely inactivated during the reaction pretreatment stepof this testing method. If test results are i n conflictwith the clinical diagnosis, patient should be testedfor the presence of intrinsic factor blocking antibodies. :24 VITAMIN B12 468 pg/mL (Normal) Range: 254-1320 Comments: There is a low frequency possibility that high titers ofintrinsic blocking antibodies may not be completely inactivated during the reaction pretreatment stepof this testing method. If test results are i n conflictwith the clinical diagnosis, patient should be testedfor the presence of intrinsic factor blocking antibodies. :24 VITD 1,25 58901 57.3 pg/mL (Normal) Range: 10.0-75.0 Comments: Performed at: [address] [id number] Director: Roderick Ramirez MD, Phone: [phone] [id number] CBCD,SMEAR DIFF RED CELL MORPH SeeNote {NORMAL} Comments: Result: NORM C+C (Normal) ABSOLUTE NEUT 4.6 3/uL (Normal) Range: 2.0-7.7 CELLS COUNTED 100 (Normal) EOS 3 % (Normal) Range: 0-5 LYMPH 27 % (Normal) Range: 19-41 MONOCYTE 4 % (Normal) Range: 0-10 PLT 251 K/mm3 (Normal) Range: 150-450 PLT EST SeeNote (Normal) Comments: Result: ADEQUATE RDW 14.4 % (Normal) Range: 11.6-14.6 SEGS 66 % (Normal) Range: 47-70 HCT 39.9 % (Normal) Range: 37-47 HGB 13.4 g/dL (Normal) Range: 12.0-16.0 MCH 28.3 pg (Normal) Range: 27.0-32.0 MCHC 33.7 g/dL (Normal) Range: 32-36 MCV 84.0 fL (Normal) Range: 81-99 RBC 4.76 {M/mm3} (Normal) Range: 4.2-5.4 WBC 7.1 K/mm3 (Normal) Range: 4.4-11.0 : VITAMIN B12 1203 pg/mL (Normal) Range: 254-1320 26 Comments: There is a low frequency possibility that high titers ofintrinsic blocking antibodies may not be completelyinactivated during the reaction pretreatment stepof this testing method. If test results are in conflictwith the clinical diagnosis, patient should be testedfor the presence of intrinsic factor blocking antibodies. [id number] MRA HEAD WITHOUT CONTRAST Radiology Report See Note (Normal) Comments: Exam Number: [id number] CLINICAL:69 year old female with numbness in left arm. Recent brain MRIshowing asymmetric internal carotid arteries intracranially. MRA OF THE BRAIN TECHNIQUE:3-D zac e-of-flight (TOF) imaging was performed without intravenouscontrast. COMPARISON:Brain MRI dated October 06, 2009. 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 No abnormal carotid narrowing is seen.The right ICA bifurcation is normal. 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 An anterior communicating artery ispresent, which appears to have a fenestration. No aneurysm is seen.The A2 segments show no abnormality. Normal bilateral M1 and M2 s egments of the bilateral middle cerebralarteries, with normal bilateral M1 bifurcations. No left-sided posterior communicating artery is identified. Thereis a large right posterior indicating artery, r epresenting a fetalconfiguration of the right posterior cerebral artery, which arisesfrom the right internal carotid. Normal visualized vertebral arteries. Normal basilar artery with anormal basilar bi furcation, without a basilar tip aneurysm. Thesuperior cerebellar arteries are not well visualized. No narrowing of the posterior cerebral arteries. There is a fetalconfiguration of the right [employer]. No definite P1 segment connectingthe artery to the basilar artery is identified. IMPRESSION:No demonstrated aneurysm. Anatomic variations of the ambler of [place]. 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 The rightinternal carotid arteries supplies the left VINAY territory, and islarger than the left internal carotid. 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 Reported By: DOMENICA MCGARRY M.D. 21-Xvq-[id number]:41 BRAIN W/WO CONTRAST Radiology See Note Comments: Exam Number: [id number] CLINICAL: MRI BRAIN WITHOUT AND WITH CONTRAST TECHNIQUE:Standardized multiplanar fat and water weighted pulse sequences wereobtained. 20 ml of Magnevist contrast material was ad Report (Normal) ministeredintravenously for the contrast portion of the examination. COMPARISON:Report only for MRI brain without and with contrast dated 06/22/2007is available, with no images available for direct comp arison at thistime. If prior comparison studies become available, an addendedreport will be provided. FINDINGS:Normal size of the ventricles and extra-axial spaces for thepatient's age. Small right fr ontal convexity craniotomy withminimal FLAIR signal hyperintensity in the subjacent parasagittalright frontal lobe, presumably related to previous meningiomaresection. No demonstrated enhancing mass to suggest recurrenttumor. Few scattered small foci of FLAIR signal hyperintensity inthe bihemispheric white matter, compatible with chronicmicrovascular ischemic disease in an individual of this age. T hereis no evidence for recent intracranial ischemia or other cause ofcytotoxic edema on diffusion weighted imaging (DWI). Normal basal ganglia and thalami. Slight asymmetrical prominence of the right curtis praclinoid internalcarotid arterial flow void, with mild relative asymmetricalenlargement of the right carotid siphon compared to the left.Consider further assessment with brain MRA, if clinically warra nted.Flow voids are identified in the visualized vertebrobasilar system,suggesting patency by spin echo criteria. There is no extra-axial fluid accumulation. Normal enhancement of the dural sinuses and cortical veins. Thereis no enhancing intra-axial or extra-axial abnormality. Normal sella turcica, pituitary gland, infundibular stalk, opticchiasm and hypothalamus, within the constraints of a routine brainstudy. Normal tectal plate and pineal gland. Normal basal cisterns. Normal midbrain, francheska and medulla. Normal cerebellum. Normal bilateral temporal bones. Normal visualized bilateralinternal au ditory canal structures. No demonstrated orbital abnormality. Minor paranasal sinus mucosalhypertrophy with small retention cyst along the left medialmaxillary sinus wall, compatible with mild chronic sinusitis. Normal visualized calvarium, aside from small right frontalcraniotomy defect. Normal visualized soft tissue structures.Degenerative changes of the visualized upper cervical spine.Suspected d egenerative remodeling of the bilateral mandibularcondyles. IMPRESSION:Right frontal craniotomy defect with mild subjacent gliosiscompatible with history of previous meningioma resection. Nodemonstrate d enhancing mass to suggest tumor recurrence. Minor chronic microvascular ischemic change, without demonstratedrecent ischemic event. Asymmetrical size of the bilateral carotid siphons, right largerthan left. This may be related to variant normal anatomy of circleof [place] vasculature, and could be more definitively evaluated withintracranial MRA, if clinically warranted. Mild chronic sinusitis. Dege nerative changes of the visualized upper cervical spine withsuspected mild degenerative remodeling of the mandibular condyles.ADDENDUM: [id number] MRI/BRWW CLINICAL: MRI BRAIN WITHOUT AND WITH CONTRAST TECHNIQUE:Standardized multiplanar fat and water weighted pulse sequences wereobtained. 20 ml of Magnevist contrast material was administeredintravenously for the contrast portion of the examination. COMPARISON:Report only for MRI brain without and with contrast dated 06/22/2007is available, with no images available for direct comparison at thistime. If prior comparison studies become available, an addendedreport will be provided. FINDINGS:Normal size of the ventricles and extra-axial spaces for thepatient's age. Small right frontal convexity craniotomy withminimal FLAIR signal hyperintensity in the subjacent parasagittalright frontal lobe, presumably related to previous meningiomaresection. No demonstrated enhancing mass to suggest recurrenttumor. Few scattered small foci of FLAIR signal hy perintensity inthe bihemispheric white matter, compatible with chronicmicrovascular ischemic disease in an individual of this age. Thereis no evidence for recent intracranial ischemia or other cause of cytotoxic edema on diffusion weighted imaging (DWI). Normal basal ganglia and thalami. Slight asymmetrical prominence of the right supraclinoid internalcarotid arterial flow void, with mild relative asy mmetricalenlargement of the right carotid siphon compared to the left.Consider further assessment with brain MRA, if clinically warranted.Flow voids are identified in the visualized vertebrobasilar syst em,suggesting patency by spin echo criteria. There is no extra-axial fluid accumulation. Normal enhancement of the dural sinuses and cortical veins. Thereis no enhancing intra-axial or extra-axial abno rmality. Normal sella turcica, pituitary gland, infundibular stalk, opticchiasm and hypothalamus, within the constraints of a routine brainstudy. Normal tectal plate and pineal gland. Normal basal cist erns. Normal midbrain, francheska and medulla. Normal cerebellum. Normal bilateral temporal bones. Normal visualized bilateralinternal auditory canal structures. No demonstrated orbital abnormality. Minor paranasal sinus mucosalhypertrophy with small retention cyst along the left medialmaxillary sinus wall, compatible with mild chronic sinusitis. Normal visualized calvarium, aside from small right fronta lcraniotomy defect. Normal visualized soft tissue structures.Degenerative changes of the visualized upper cervical spine.Suspected degenerative remodeling of the bilateral mandibularcondyles. IMPRESSIO N:Right frontal craniotomy defect with mild subjacent gliosiscompatible with history of previous meningioma resection. Nodemonstrated enhancing mass to suggest tumor recurrence. Minor chronic microvasc ular ischemic change, without demonstratedrecent ischemic event. Asymmetrical size of the bilateral carotid siphons, right largerthan left. This may be related to variant normal anatomy of circleof [place] vasculature, and could be more definitively evaluated withintracranial MRA, if clinically warranted. Mild chronic sinusitis. Degenerative changes of the visualized upper cervical spine withsuspected mild degenerative remodeling of the mandibular condyles. ADDENDUM Images from the prior brain MRI 06/11 are now made availablefor review. No significant interval change is identified. Reported By: BAM ORTIZ 2 BUN 17 mg/dL Range: 7-18 7 (Normal) - J u l - 2 0 1 0 1 3 : 3 3 :33 SERUM CRE & GFR CREAT,SERUM 1.2 mg/dL (Abnormal) Range: 0.6-1.0 EST GFR 48 mL/min (Abnormal) EST GFR - AA 58 mL/min (Abnormal) :35 LIPID CHOL 188 mg/dL (Normal) Comments: <200 mg/dL Hbobzyins831-207 mg/dL Borderline>240 mg/dL High Risk HDL 54 mg/dL (Normal) Comments: Reference RangeHDL <40 mg/dL Low HDL CholesterolHDL >or= 60 mg/dL High HDL Cholesterol LDL 105 mg/dL (Normal) Range: 0-130 TRIG 144 mg/dL (Normal) Comments: Serum Triglycerides Reference IntervalNormal <150 mg/dLBorderline high 150 - 199 mg/dLHigh 200 - 499 mg/ dLVery High > or = 500 mg/dL VLDL 29 mg/dL (Normal) Range: 5-40 :3 TSH 1.11 {uIU/mL} Range: 0.358-3.74 5 (Normal) :3 VIT D,25 74441 29.3 ng/mL (Abnormal) Range: 32.0-100.0 5 Comments: Recent studies consider the lower limit of 32.0 ng/mL to zoraida threshold for optimal health.Everardo HEREDIA. J Nutr. 2004;135(2):317-22.Performed at: [facility] [id number] [place], [place] [address]Lab Director: Patito Segovia MD, Phone: [phone] :3 VITAMIN B12 158 pg/mL (Abnormal) Range: 254-1320 5 Comments: There is a low frequency possibility that high titers ofintrinsic blocking antibodies may not be completelyinactivated during the reaction pretreatment stepof this testing method. If test results are in conflictwith the clinical diagnosis, patient should be testedfor the presence of intrinsic factor blocking antibodies. 35-Vag-[id number]:17 ABDOMEN W/WO IV CONTRAST Radiology Report See Note (Normal) Comments: Exam Number: [id number] CLINICAL:Right upper quadrant pain CT ABDOMEN WITH AND WITHOUT CONTRAST TECHNIQUE:Transaxial images were obtained from the dome of the diaphragm tothe iliac crest of the pelvis wi th oral contrast. 100 ml ofIsovue-300 contrast was administered intravenously. COMPARISON:08/18/2008 FINDINGS:The visualized lung bases are unremarkable. There is a stable small cyst in the left hepatic lobe. Normal gallbladder and biliary system. Normal unenhanced and enhanced spleen. Normal pancreas. Normal bilateral adrenal glands. Normal size of the right kidney. Normal excretion of contrastmateri al of the right kidney. There are two right parapelvic renalcysts measuring under 1.2-cm. There are no right renal calculi.There is no right hydronephrosis. Normal visualized right ureter. Normal siz e of the left kidney. Normal excretion of contrastmaterial of the left kidney. There is no left renal mass. Thereare no left renal calculi. There is no left hydronephrosis. Normalvisualized left ur eter. Normal visualized stomach. Normal visualized small intestine.Normal visualized colon. The region of the appendix is normal. Normal mesentery and peritoneum. There is no free fluid in the abdomen. There is no free air in theabdomen. Normal retroperitoneum. Normal abdominal aorta. Normal inferior vena cava. Normal abdominal wall. Normal osseous structures. IMPRESSION:Small hepatic cyst.Small r ight parapelvic renal cysts. Reported By: PRADIP FRANCO 48-Cue-112753:29 BMP BUN 16 mg/dL (Normal) Range: 7-18 BUN/CRE 16.0 {RATIO} (Normal) Range: 10-20 CA 9.2 mg/dL (Normal) Range: 8.5-10.1 CL 102 mmol/L (Normal) Range: 98-107 CO2 28.0 mmol/L (Normal) Range: 21.0-32.0 CREAT,SERUM 1.0 mg/dL (Normal) Range: 0.6-1.0 EST GFR 59 mL/min (Abnormal) EST GFR - AA 72 mL/min (Normal) GAP 12 (Normal) Range: 5-15 K 4.2 mmol/L (Normal) Range: 3.5-5.1 NA 142 mmol/L (Normal) Range: 136-145 GLU 87 mg/dL (Normal) Range: 70-110 :37 COMP METABOLIC CL 108 mmol/L (Abnormal) Range: 98-107 CO2 27.0 mmol/L (Normal) Range: 21.0-32.0 GAP 9 (Normal) Range: 5-15 A/G 1.2 {RATIO} (Normal) Range: 0.9-2.4 ALB 3.8 g/dL (Normal) Range: 3.4-5.0 ALK P 113 U/L (Normal) Range: 50-136 ALT 25 U/L (Normal) Range: 12-78 AST 14 U/L (Abnormal) Range: 15-37 CA 9.2 mg/dL (Normal) Range: 8.5-10.1 GLOB 3.3 g/dL (Normal) Range: 2.7-4.2 K 4.1 mmol/L (Normal) Range: 3.5-5.1 NA 144 mmol/L (Normal) Range: 136-145 T BILI 0.60 mg/dL (Normal) Range: 0.00-1.00 T PROT 7.1 g/dL (Normal) Range: 6.4-8.2 BUN 18 mg/dL (Normal) Range: 7-18 BUN/CRE 13.8 {RATIO} (Normal) Range: 10-20 CREAT,SERUM 1.3 mg/dL (Abnormal) Range: 0.6-1.0 EST GFR 44 mL/min (Abnormal) EST GFR - AA 53 mL/min (Abnormal) GLU 86 mg/dL (Normal) Range: 70-110 :37 VIT D,25 27845 26.3 ng/mL (Abnormal) Range: 32.0-100.0 Comments: Recent studies consider the lower limit of 32.0 ng/mL to zoraida threshold for optimal health.Everardo HEREDIA. J Nutr. 2004;135(2):317-22.Performed at: [address] [id number] Director: Ade Rubio MD 92-Epi-377544:36 GALLBLADDER (HP) Radiology Report See Note (Normal) Comments: Exam Number: [id number] LIMITED ABDOMINAL ULTRASOUND FOR GALLBLADDER HISTORYChest pain. High resolution real- time sector images were obtained. Thegallbladder is within normal limits in size. The wall is notthickened. No stones are seen. The liver is homogeneous. Thereare no dilated intrahepatic ducts identified. The pancreatic head andbody are within normal limits. The pancreatic tail is obs cured bybowel gas. In the right kidney, there is alteration of the normalecho pattern in the mid to superior pole of the kidney. The cause ofthis appearance is indeterminate on the ultrasound examin ation. Forfurther evaluation of this finding, CT is suggested. Pancreatic head and body are within normal limits. Pancreatic tail isnot seen. IMPRESSION1) Gallbladder, liver and biliary ducts are wi thin normal limits.2) There is alteration of the normal echo pattern of the mid tosuperior aspect of the right kidney. The cause of this change inechogenicity is uncertain. For further evaluation, C T of the kidneyis suggested. Reported By: DOMENICA GATES M.D. 6-Ceu-[id number]:21 Lipase ([id number]) Comments: PATIENT NOT FASTINGPERFORMED BY: [address] [id number] Lipase, Serum 42 U/L (Normal) Range: 0-59 9-Nel-827581:21 Amylase (68532) Comments: PATIENT NOT FASTINGPERFORMED BY: [address] [id number] Amylase, Serum 54 U/L (Normal) Range: 31-124 4-Gev-823861:21 CBC WITH MANUAL DIFF Comments: PATIENT NOT FASTINGPERFORMED BY: [address] [id number] Information: [id number] ([id number]) Baso (Absolute) 0.1 {x10E3/uL} (Normal) Range: 0.0-0.2 Eos (Absolute) 0.2 {x10E3/uL} (Normal) Range: 0.0-0.4 Monocytes(Absolute) 0.5 {x10E3/uL} (Normal) Range: 0.1-1.0 Basos 1 % (Normal) Range: 0-3 Eos 3 % (Normal) Range: 0-7 Lymphs 21 % (Normal) Range: 14-46 Lymphs (Absolute) 1.2 {x10E3/uL} (Normal) Range: 0.7-4.5 Monocytes 9 % (Normal) Range: 4-13 Neutrophils (Absolute) 3.9 {x10E3/uL} (Normal) Range: 1.8-7.8 MCHC 34.0 g/dL (Normal) Range: 32.0-36.0 Neutrophils 66 % (Normal) Range: 40-74 Platelets 243 {x10E3/uL} (Normal) Range: 140-415 RDW 14.7 % (Normal) Range: 11.7-15.0 Hematocrit 36.7 % (Normal) Range: 34.0-44.0 MCH 28.9 pg (Normal) Range: 27.0-34.0 MCV 85 fL (Normal) Range: 80-98 Hemoglobin 12.5 g/dL (Normal) Range: 11.5-15.0 RBC 4.32 {x10E6/uL} (Normal) Range: 3.80-5.10 WBC 5.9 {x10E3/uL} (Normal) Range: 4.0-10.5 0-Sxt-087612:21 METABOLIC PANEL, COMPREHENSIVE Comments: PATIENT NOT FASTINGPERFORMED BY: [facility]ql[facility] [id number] ([id number]) ALT (SGPT) 15 [iU]/L (Normal) Range: 0-40 AST (SGOT) 18 [iU]/L (Normal) Range: 0-40 A/G Ratio 1.8 (Normal) Range: 1.1-2.5 Alkaline Phosphatase, S 103 [iU]/L (Normal) Range: 25-165 Bilirubin, Total 0.4 mg/dL (Normal) Range: 0.1-1.2 Albumin, Serum 4.2 g/dL (Normal) Range: 3.6-4.8 Calcium, Serum 9.2 mg/dL (Normal) Range: 8.6-10.2 Globulin, Total 2.3 g/dL (Normal) Range: 1.5-4.5 Protein, Total, Serum 6.5 g/dL (Normal) Range: 6.0-8.5 Carbon Dioxide, Total 23 mmol/L (Normal) Range: 20-32 Chloride, Serum 106 mmol/L (Normal) Range: 97-108 BUN/Creatinine Ratio 20 (Normal) Range: 8-27 eGFR 50 mL/min/1.73 (Abnormal) eGFR AfricanAmerican >59 mL/min/1.73 Comments: Note: Persistent reduction for 3 months or more in an eGFR<60 mL/min/1.73 m2 defines CKD. Patients with eGFR values>/=60 mL/min/1.73 m2 may also have CKD if evidence of persistentproteinuria is (Normal) present. Additional information may be found [email or web address]. Potassium, Serum 4.5 mmol/L (Normal) Range: 3.5-5.2 Sodium, Serum 143 mmol/L (Normal) Range: 135-145 BUN 22 mg/dL (Normal) Range: 5-26 Creatinine, Serum 1.10 mg/dL (Abnormal) Range: 0.57-1.00 Glucose, Serum 90 mg/dL (Normal) Range: 65-99 :48 CAROL-D Comments: DR DAVIS ORDERED CMP,CBCMD,CAROL,RF,TSH,CRP,SED,CCP,LIPIDDR VELLANKIORDEREDCMP,CBCD,CRP,SED,VITD,CCP,HEPBSAB,HEPBSAG,HEPC,CAROL,RF,HEPBCORE IGM,[place] [id number] CAROL-DIRECT SeeNote (Normal) Comments: Result: Negative :48 ANTI-CCP [id number] 4 {units} (Normal) Comments: DR DAVIS ORDERED CMP,CBCMD,CAROL,RF,TSH,CRP,SED,CCP,LIPIDDR VELLANKIORDEREDCMP,CBCD,CRP,SED,VITD,CCP,HEPBSAB,HEPBSAG,HEPC,CAROL,RF,HEPBCORE IGM,UA Range: 0-19 Comments: Negative <20 Weak positive 20 - 39 Moderate positive 40 - 59 Strong positive >59 :48 C-REACTIVE PROT 5.24 mg/L (Abnormal) Comments: DR DAVIS ORDERED CMP,CBCMD,CAROL,RF,TSH,CRP,SED,CCP,LIPIDDR VELLANKIORDEREDCMP,CBCD,CRP,SED,VITD,CCP,HEPBSAB,HEPBSAG,HEPC,CAROL,RF,HEPBCORE IGM,UA Range: 0.0-3.0 Comments: C-Reactive Protein (CRP) provides useful information for thediagnosis, therapy and monitoring of inflammatory processesand associated diseases. For the evaluation of Relative Riskfor Cardiovascular Dise ase, a High Sensitivity CRP (HSCRP)should be ordered. :48 CBCD,SMEAR Comments: DR DAVIS ORDERED CMP,CBCMD,CAROL,RF,TSH,CRP,SED,CCP,LIPIDDR VELLANKIORDEREDCMP,CBCD,CRP,SED,VITD,CCP,HEPBSAB,HEPBSAG,HEPC,CAROL,RF,HEPBCORE IGM,UA DIFF CELLS COUNTED 100 (Normal) EOS 3 % (Normal) Range: 0-5 HCT 39.8 % (Normal) Range: 37-47 HGB 13.2 g/dL (Normal) Range: 12.0-16.0 LYMPH 29 % (Normal) Range: 19-41 MCH 28.2 pg (Normal) Range: 27.0-32.0 MCHC 33.1 g/dL (Normal) Range: 32-36 MCV 85.1 fL (Normal) Range: 81-99 MONOCYTE 7 % (Normal) Range: 0-10 PLT 242 K/mm3 (Normal) Range: 150-450 PLT EST SeeNote (Normal) Comments: Result: ADEQUATE RBC 4.68 {M/mm3} (Normal) Range: 4.2-5.4 RDW 13.6 % (Normal) Range: 11.6-14.6 RED CELL MORPH SeeNote {NORMAL} (Normal) Comments: Result: NORM C+C SEGS 61 % (Normal) Range: 47-70 WBC 5.8 K/mm3 (Normal) Range: 4.4-11.0 :48 COMP Comments: DR DAVIS ORDERED CMP,CBCMD,CAROL,RF,TSH,CRP,SED,CCP,LIPIDDR VELLANKIORDEREDCMP,CBCD,CRP,SED,VITD,CCP,HEPBSAB,HEPBSAG,HEPC,CAROL,RF,HEPBCORE IGM,UA METABOLIC A/G 1.1 {RATIO} (Normal) Range: 0.9-2.4 ALB 3.6 g/dL (Normal) Range: 3.4-5.0 ALK P 107 U/L (Normal) Range: 50-136 ALT 22 U/L (Abnormal) Range: 30-65 AST 8 U/L (Abnormal) Range: 15-37 BUN 19 mg/dL (Abnormal) Range: 7-18 BUN/CRE 17.3 {RATIO} (Normal) Range: 10-20 CA 8.8 mg/dL (Normal) Range: 8.5-10.1 CL 108 mmol/L (Abnormal) Range: 98-107 CO2 27.0 mmol/L (Normal) Range: 21.0-32.0 CREAT,SERUM 1.1 mg/dL (Abnormal) Range: 0.6-1.0 EST GFR 53 mL/min (Abnormal) EST GFR - AA 64 mL/min (Normal) GAP 9 (Normal) Range: 5-15 GLOB 3.3 g/dL (Normal) Range: 2.7-4.2 GLU 91 mg/dL (Normal) Range: 70-110 K 4.0 mmol/L (Normal) Range: 3.5-5.1 NA 144 mmol/L (Normal) Range: 136-145 T BILI 0.50 mg/dL (Normal) Range: 0.00-1.00 T PROT 6.9 g/dL (Normal) Range: 6.4-8.2 :48 COMPLETE Comments: DR DAVIS ORDERED CMP,CBCMD,CAROL,RF,TSH,CRP,SED,CCP,LIPIDDR VELLANKIORDEREDCMP,CBCD,CRP,SED,VITD,CCP,HEPBSAB,HEPBSAG,HEPC,CAROL,RF,HEPBCORE IGM,UA UA AMORPHOUS 3+ (Normal) BACTERIA 0 SEEN {/hpf} (Normal) BILIRUBIN URINE SeeNote (Normal) Comments: Result: NEGATIVE CLARITY CLOUDY (Normal) COLOR YELLOW (Normal) GLUCOSE, UR SeeNote (Normal) Comments: Result: NEGATIVE KETONE UR SeeNote mg/dL (Normal) Comments: Result: NEGATIVE LEUK ESTERASE TRACE (Abnormal) MUCUS, URINE 0 SEEN {/hpf} (Normal) NITRITE UR SeeNote (Normal) Comments: Result: NEGATIVE OCCULT BLOOD-UR SeeNote (Abnormal) Comments: Result: TRACE-INTACT pH UR 5.5 (Normal) Range: 5.0-8.0 PROT DIPSTX SeeNote (Normal) Comments: Result: NEGATIVE RBC-UA 0 SEEN {/hpf} (Normal) Range: 0-5 SP.GR. DIPSTX 1.025 (Normal) Range: 1.002-1.030 SQUAM EPI 0 SEEN {/hpf} (Normal) Range: 5-10 TRANSITIONAL EP SeeNote {/hpf} (Normal) Range: 0-5 Comments: Result: 0-5 SEEN UROBILI 0.2 EU/dl (Normal) Range: 0.2 - 1.0 WBC 0 SEEN {/hpf} (Normal) Range: 0-5 :48 ESR Comments: DR DAVIS ORDERED CMP,CBCMD,CAROL,RF,TSH,CRP,SED,CCP,LIPIDDR VELLANKIORDEREDCMP,CBCD,CRP,SED,VITD,CCP,HEPBSAB,HEPBSAG,HEPC,CAROL,RF,HEPBCORE IGM,UA SED RATE 15 mm/h (Normal) Range: 0-30 :48 HB CORE [id number] SeeNote (Normal) Comments: DR DAVIS ORDERED CMP,CBCMD,CAROL,RF,TSH,CRP,SED,CCP,LIPIDDR VELLANKIORDEREDCMP,CBCD,CRP,SED,VITD,CCP,HEPBSAB,HEPBSAG,HEPC,CAROL,RF,HEPBCORE IGM,UA Comments: Result: Negative Performed At: [facility] [id number] [place], [place] [id number] At: [facility] [address] [id number] :48 HBsAg Comments: DR DAVIS ORDERED CMP,CBCMD,CAROL,RF,TSH,CRP,SED,CCP,LIPIDDR VELLANKIORDEREDCMP,CBCD,CRP,SED,VITD,CCP,HEPBSAB,HEPBSAG,HEPC,CAROL,RF,HEPBCORE IGM,UA 6510 HB SURF AG 6510 SeeNote (Normal) Comments: Result: Negative :48 HEBSAB 6395 < 0.1 (Normal) Comments: DR DAVIS ORDERED CMP,CBCMD,CAROL,RF,TSH,CRP,SED,CCP,LIPIDDR VELLANKIORDEREDCMP,CBCD,CRP,SED,VITD,CCP,HEPBSAB,HEPBSAG,HEPC,CAROL,RF,HEPBCORE IGM,UA Range: 0.00-0.99 Comments: Status of Immunity Anti-HBs Level Inconsistent with Immunity 0.00 - 0.99 Consistent with Immunity >0.99 . An Index Value of 1.00 is equivalent to 10 mIU/mL. However the magnitude of the Index Value is not indicative of the total amount of antibody present. :48 HEP C AB [id number] 0.1 (Normal) Comments: DR DAVIS ORDERED CMP,CBCMD,CAROL,RF,TSH,CRP,SED,CCP,LIPIDDR VELLANKIORDEREDCMP,CBCD,CRP,SED,VITD,CCP,HEPBSAB,HEPBSAG,HEPC,CAROL,RF,HEPBCORE IGM,UA Range: 0.0-0.9 Comments: Negative: < 0.8 Indeterminate 0.8 - 0.9 Positive: > 0.9 . In order to reduce the incidence of a false positive result, the CDC recommends that all s/co ratios between 1.0 and 10.9 be confirmed with additional RIBA or PCR testing. :48 LIPID Comments: DR DAVIS ORDERED CMP,CBCMD,CAROL,RF,TSH,CRP,SED,CCP,LIPIDDR VELLANKIORDEREDCMP,CBCD,CRP,SED,VITD,CCP,HEPBSAB,HEPBSAG,HEPC,CAROL,RF,HEPBCORE IGM,UA CHOL 190 mg/dL (Normal) Comments: <200 mg/dL Desirable 200-240 mg/dL Borderline >240 mg/dL High Risk HDL 59 mg/dL (Normal) Comments: Reference Range HDL <40 mg/dL Low HDL Cholesterol HDL >or= 60 mg/dL High HDL Cholesterol LDL 107 mg/dL (Normal) Range: 0-130 TRIG 119 mg/dL (Normal) Comments: Serum Triglycerides Reference Interval Normal <150 mg/dL Borderline high 150 - 199 mg/dL High 200 - 499 mg/dL Very High > or = 500 mg/dL VLDL 24 mg/dL (Normal) Range: 5-40 :48 RHEUMATOID FAC < 10 {IU/mL} (Normal) Comments: DR DAVIS ORDERED CMP,CBCMD,CAROL,RF,TSH,CRP,SED,CCP,LIPIDDR VELLANKIORDEREDCMP,CBCD,CRP,SED,VITD,CCP,HEPBSAB,HEPBSAG,HEPC,CAROL,RF,HEPBCORE IGM,UA :48 TSH 2.68 {uIU/mL} (Normal) Comments: DR DAVIS ORDERED CMP,CBCMD,CAROL,RF,TSH,CRP,SED,CCP,LIPIDDR VELLANKIORDEREDCMP,CBCD,CRP,SED,VITD,CCP,HEPBSAB,HEPBSAG,HEPC,CAROL,RF,HEPBCORE IGM,UA Range: 0.358-3.74 :48 VIT D,25 75621 18.0 ng/mL (Abnormal) Comments: DR DAVIS ORDERED CMP,CBCMD,CAROL,RF,TSH,CRP,SED,CCP,LIPIDDR VELLANKIORDEREDCMP,CBCD,CRP,SED,VITD,CCP,HEPBSAB,HEPBSAG,HEPC,CAROL,RF,HEPBCORE IGM,UA Range: 32.0-100.0 Comments: Recent studies consider the lower limit of 32.0 ng/mL to zoraida threshold for optimal health.Everardo HEREDIA. J Nutr. 2004;135(2):317-22. 1-Vxk-[id number]:10 [facility] Radiology Report See Note (Normal) Comments: Exam Number: [id number] MAMMOGRAM, BILATERAL SCREENING DIGITAL AND CAD HISTORYRoutine screening. Full field digital images were obtained in mediolateral oblique andcraniocaudal projections. CAD images w ere reviewed. The current study is compared to the examinations of August 25, 2005 andFebruary 28, 2007. There is moderately dense fibroglandular parenchyma present. There isno skin thickening or retract ion, architectural distortion, or clusterof suspicious microcalcifications. There are scattered smalldensities within the breasts which have not significantly changed. Ifthere is no suspicious palpable abnormality, followup mammogram in 1year is recommended. IMPRESSIONThere is no radiographic evidence of malignancy identified. FINAL ASSESSMENTBenign findings. BIRADS Category 2. A letter regarding th micah results has been sent to the patient. This interpretation was rendered by a radiologist certified under theMammography Quality Standards Act of 1992 (MQSA). The mammograms werealso examined with c X[employer] Mobility[employer]-aided detection software (Molecular Imaging.). Reported By: DOMENICA GATES M.D. [id number] SPINE,LUMBAR (ROUTINE) Radiology Report See Note (Normal) Comments: Exam Number: [id number] CLINICAL:68-year-old female with low back pain for 15 years. MRI LUMBAR SPINE WITHOUT CONTRAST COMPARISON:Lumbar spine series dated 08/19/2008. TECHNIQUE:Standardized fat and wate r weighted pulse sequences were obtained in the sagittal and axial planes. FINDINGS:It is presumed that the lower most complete intervertebral disk level represents L5-S1. There is no compression deform ity or demonstrated fracture. There are multilevel discogenic endplate changes. There is mild heterogeneity of marrow signal intensity compatible with senescent change. Small hemangioma is noted to t he right of midline at L2. No destructive or infiltrative vertebral process is identified. The conus medullaris terminates at T12-L1. T11-T12, T12-L1: Imaged in the sagittal plane only. There are mild degenerative changes at both the T11-12, and T12-L1 levels but without demonstrated neural impingement or central canal, lateral recess or foraminal stenosis. L1- 2: Mild retrolisthesis. Mild disk jason ccation with moderate disk space narrowing and diffuse annular bulging with accompanying mild endplate spondylosis. Mild to moderate facet arthrosis with borderline ligamentum flavum hypertrophy. Mild noncompressive bilateral intervertebral neural foraminal narrowing. Shallow ventral thecal sac contour deformity with adequate central canal and lateral recesses (sagittal T1 series 6 image 7, axial T 2 series 8 image 23). L2-3: Minimal retrolisthesis. Disk desiccation with moderate to marked disk space narrowing. Diffuse annular bulge with accompanying mild endplate spondylosis and moderate facet arthrosis with right greater than left ligamentum flavum hypertrophy. Moderate right and mild left foraminal narrowing. Concentric central canal stenosis with midline AP thecal sac diameter reduced t o approximately 5 mm, with bilateral lateral recess encroachment (sagittal T1 series 6 image 6, axial T2 series 8 image 18). L3-4: Disk desiccation with marked disk space narrowing. Circumferential a nnular bulge with rightward lateralization with accompanying endplate spondylosis. Advanced right and moderate left facet arthrosis with moderate ligament flava hypertrophy. Moderate to severe right a nd mild left intervertebral neural foraminal narrowing. Reduced central canal diameter with midline AP thecal sac measuring approximately 7 mm with right greater than left lateral recess stenosis (sagi ttal T1 series 6 image 7, axial T2 series 8 image 13). L4-5: This desiccation with disk space narrowing most marked to the left of midline. Diffuse bulging of the annulus with broad-based posterior an d bilateral intraforaminal disk herniation of the protrusion type with accompanying endplate spondylosis, with disk and spur complexes measuring up to approximately 6 mm in AP dimension. Advanced bilat eral facet arthrosis with moderate ligamentum flavum hypertrophy. Moderate right and moderate to severe left intervertebral neural foraminal narrowing. Reduced central canal diameter with midline AP t hecal sac measuring approximately 7 mm, with left greater than right lateral recess stenosis (sagittal T1 series 6 image 8, axial T2 series 8 image 8). L5- S1: Mild disk desiccation with moderate disk space narrowing and mild diffuse annular bulging with endplate spondylosis and advanced facet arthrosis. Normal bilateral intervertebral neural foramina. Normal central canal and lateral recesses. The re is a normal lumbar lordosis without a spondylolisthesis. There is a moderate rotatory lumbar scoliosis convex to the left in the upper to mid lumbar spine. There is no demonstrated paraspinous soft tissue abnormality. There is a probable partially visualized small right renal parapelvic cyst. Ultrasound is the modality of choice for further assessment if clinically warranted. IMPRESSION:Advanced multilevel lumbar degenerative disk disease and spondylosis with moderate rotatory lumbar levoscoliosis. Combination of annular bulges and/or broad-based disk protrusions, endplate spondylosis and face t arthrosis with multilevel ligamentum flavum hypertrophy results in marked L2-3 and moderate L3-4 and L4-5 central canal stenosis with multilevel lateral recess stenosis. Findings additionally results in multilevel intervertebral neural foraminal narrowing which appears most marked on the right at L2-3 and L3-4, and left greater than right at L4-5. Please see sequential details above. Reported By: ANGELBAM : FREE T3 2.4 pg/mL (Normal) Range: 2.18-3.98 14 : T4 FREE DIRECT 1.4 ng/dL (Abnormal) Range: 0.76-1.146 14 : TSH 0.94 {uIU/mL} Range: 0.358-3.74 14 (Normal) :28 L/S SPINE,MIN 4 VIEWS Radiology Report See Note (Normal) Comments: Exam Number: [id number] CLINICAL DATALow back pain, flank pain, right posterior back pain. No trauma. LUMBAR SPINE Five views of the lumbar spine show moderate rotatoryscoliosis of middle lumbar spine w ith convexity to the left side. Allpedicles are intact and there are no paraspinal masses seen. Both SIjoints appear to be symmetrical. There is no spondylolysis seen.There is degenerative disc disea se involving multiple levels from L4ryjrlzn S1. There is degenerative hypertrophic change of multiplefacet joints from L2 through S1. There are no fractures orsubluxations. IMPRESSIONModerate rotatory scoliosis of middle lumbar spine with convexityto the left side. Degenerative disc disease at multiple levels fromL2 through S1. Degenerative hypertrophic changes of multiple facetjoints from L2 through S1. Reported By: HEATHER JACKSON :27 DORSAL SPINE,3 VIEWS Radiology Report See Note (Normal) Comments: Exam Number: [id number] DORSAL SPINE Three images of the dorsal spine show mild to moderate scoliosis ofmiddle and lower dorsal spine with convexity to the right side. Allthe pedicles are in tact and the re are no paraspinal masses. There aremild degenerative hypertrophic spurs from upper and middle dorsalvertebral bodies. There is minimal layering of multiple of multipleintervertebral disc spaces of middle dorsal spine. There are nofractures or subluxation identified. IMPRESSIONMild to moderate scoliosis of middle and lower dorsal spine withconvexity to the right side. Some degenerative disc dise ase anddegenerative change of the middle dorsal spine. Reported By: HEATHER JACKSON :22 Urine Culture,Comprehensive Comments: Clinical Information: SRC:UR [facility]: [id number] [facility] [facility] [id number] Result 1 NG36 (Normal) Comments: No growth in 36 - 48 hours. Urine Culture,Comprehensive Final report (Normal) :18 PELVIS WITHOUT IV CONTRAST Radiology Report See Note (Normal) Comments: Exam Number: [id number] CT SCANS OF ABDOMEN AND PELVIS HISTORYThe patient is a 67-year-old woman with a history of bilateral flankpain. Stone protocol requested. Scans were obtained at 3.75- mm intervals from the lung bases throughthe symphysis pubis without oral or intravenous contrast enhancement. The current study is compared to the examination of July 11, 2007.There is a 9-mm cyst seen in the left lobe of the liver. The liver isotherwise homogeneous. There are no dilated intrahepatic ductsidentified. The possibility of a small gallstone is raised. Noabnormality of the spleen is identified. No adrenal abnormality isidentified. There is a 1.5-cm right renal cyst. There is noperiaortic adenopathy. The caliber of the abdominal aorta is withinnormal limits. There is a small pericardial eff usion which isunchanged from the previous examination. Scans through the pelvis demonstrate no abnormality of the urinarybladder. The distal extent of the ureters are not visualized,however, there ar e no calcifications in the expected course of thedistal ureters. The uterus is normal in size. On the currentexamination, there is an apparent focal bulge from the anterior wallof the uterus. However , on the previous examination of June, this area was filled with contrast and the small focal density,therefore, is compatible with a bowel loop adjacent to the uterus. The left ovary is seen a nd is normal. What is thought to be the rightovary is also normal in size. No abnormality of the colon isidentified. No abnormality of the appendix is seen. There is a possible small gallstone. Ther e is minimal pericardialeffusion as seen July 11, 2007. There is scoliosis and degenerativechange of the spine. Reported By: DOMENICA GATES M.D. :17 ABDOMEN WITHOUT IV CONTRAST Radiology Report See Note (Normal) Comments: Exam Number: [id number] CT SCANS OF ABDOMEN AND PELVIS HISTORYThe patient is a 67-year-old woman with a history of bilateral flankpain. Stone protocol requested. Scans were obtained at 3.75- mm intervals from the lung bases throughthe symphysis pubis without oral or intravenous contrast enhancement. The current study is compared to the examination of July 11, 2007.There is a 9-mm cyst seen in the left lobe of the liver. The liver isotherwise homogeneous. There are no dilated intrahepatic ductsidentified. The possibility of a small gallstone is raised. Noabnormality of the spleen is identified. No adrenal abnormality isidentified. There is a 1.5-cm right renal cyst. There is noperiaortic adenopathy. The caliber of the abdominal aorta is withinnormal limits. There is a small pericardial eff usion which isunchanged from the previous examination. Scans through the pelvis demonstrate no abnormality of the urinarybladder. The distal extent of the ureters are not visualized,however, there ar e no calcifications in the expected course of thedistal ureters. The uterus is normal in size. On the currentexamination, there is an apparent focal bulge from the anterior wallof the uterus. However , on the previous examination of June, this area was filled with contrast and the small focal density,therefore, is compatible with a bowel loop adjacent to the uterus. The left ovary is seen a nd is normal. What is thought to be the rightovary is also normal in size. No abnormality of the colon isidentified. No abnormality of the appendix is seen. There is a possible small gallstone. Ther e is minimal pericardialeffusion as seen July 11, 2007. There is scoliosis and degenerativechange of the spine. Reported By: DOMENICA GATES M.D. [id number]:1 C-REACTIVE PROT 4.05 mg/L (Abnormal) Range: 0.0-3.0 0 Comments: C-Reactive Protein (CRP) provides useful information for thediagnosis, therapy and monitoring of inflammatory processesand associated diseases. For the evaluation of Relative Riskfor Cardiovascular Dise ase, a High Sensitivity CRP (HSCRP)should be ordered. 6-Ria-943296:10 CBCD,SMEAR DIFF ATYPICAL LYMPH 1+ % (Normal) BAND 3 % (Normal) Range: 0-5 CELLS COUNTED 100 (Normal) EOS 3 % (Normal) Range: 0-5 HCT 40.2 % (Normal) Range: 37-47 HGB 13.8 g/dL (Normal) Range: 12.0-16.0 LYMPH 16 % (Abnormal) Range: 19-41 MCH 28.9 pg (Normal) Range: 27.0-32.0 MCHC 34.2 g/dL (Normal) Range: 32-36 MCV 84.6 fL (Normal) Range: 81-99 MONOCYTE 12 % (Abnormal) Range: 0-10 PLT 266 K/mm3 (Normal) Range: 150-450 PLT EST SeeNote (Normal) Comments: Result: ADEQUATE RBC 4.76 {M/mm3} (Normal) Range: 4.2-5.4 RDW 13.6 % (Normal) Range: 11.6-14.6 RED CELL MORPH SeeNote {NORMAL} (Normal) Comments: Result: NORM C+C SEGS 66 % (Normal) Range: 47-70 WBC 8.2 K/mm3 (Normal) Range: 4.4-11.0 1-Hbg-471009:10 COMP METABOLIC A/G 1.4 {RATIO} (Normal) Range: 0.9-2.4 ALB 3.9 g/dL (Normal) Range: 3.4-5.0 ALK P 127 U/L (Normal) Range: 50-136 ALT 25 U/L (Abnormal) Range: 30-65 AST 12 U/L (Abnormal) Range: 15-37 BUN 18 mg/dL (Normal) Range: 7-18 BUN/CRE 12.9 {RATIO} (Normal) Range: 10-20 CA 9.2 mg/dL (Normal) Range: 8.5-10.1 CL 104 mmol/L (Normal) Range: 98-107 CO2 29.0 mmol/L (Normal) Range: 21.0-32.0 CREAT,SERUM 1.4 mg/dL (Abnormal) Range: 0.6-1.0 EST GFR 40 mL/min (Abnormal) EST GFR - AA 48 mL/min (Abnormal) GAP 5 (Normal) Range: 5-15 GLOB 2.8 g/dL (Normal) Range: 2.7-4.2 K 4.6 mmol/L (Normal) Range: 3.5-5.1 NA 138 mmol/L (Normal) Range: 136-145 T BILI 0.40 mg/dL (Normal) Range: 0.00-1.00 T PROT 6.7 g/dL (Normal) Range: 6.4-8.2 GLU 84 mg/dL (Normal) Range: 70-110 0-Rox-515131:10 ESR SED RATE 14 mm/h (Normal) Range: 0-30 5-Ecc-968748:40 Urinalysis, Office ([id number]) UA - BILIRUBIN Negative (Normal) UA - BLOOD Non Hemolyzed Trace (Normal) UA - GLUCOSE Negative (Normal) UA - KETONES Negative mg/dL (Normal) UA - LEUKOCYTE ESTERASE Negative (Normal) Comments: aw UA - NITRITE Negative (Normal) UA - PH 6.0 (Normal) UA - PROTEIN Negative mg/dL (Normal) UA - SPECIFIC GRAVITY 1.010 (Normal) URINE UROBILINGN TUNDE TIMED Normal mg/dL (Normal) 3-Bek-648890:28 URINE CESAR CULTURE-TUNDE COL Comments: PATIENT NOT FASTINGClinical Information: SRC:UR ADD [id number] PERFORMED BY: [place] [id number] [facility] [id number] COUNT ([id number]) Result 1 MUG (Normal) Comments: Mixed urogenital flora10,000-25,000 colony forming units per mL Urine Final report (Normal) Culture,Comprehensive 7-Zdg-672969:09 Urinalysis, Office ([id number]) UA - BILIRUBIN Negative (Normal) UA - BLOOD Non Hemolyzed Trace (Normal) UA - GLUCOSE Negative (Normal) UA - KETONES Small mg/dL (Normal) UA - LEUKOCYTE ESTERASE Trace (Normal) UA - NITRITE Negative (Normal) UA - PH 6.0 (Normal) UA - PROTEIN Negative mg/dL (Normal) UA - SPECIFIC GRAVITY 1.020 (Normal) URINE UROBILINGN TUNDE TIMED 2 mg/dL (Normal) 13-Feb-20089:52 CBCD,SMEAR DIFF CELLS COUNTED 100 (Normal) EOS 3 % (Normal) Range: 0-5 HCT 40.3 % (Normal) Range: 37-47 HGB 13.5 g/dL (Normal) Range: 12.0-16.0 LYMPH 19 % (Normal) Range: 19-41 MCH 27.5 pg (Normal) Range: 27.0-32.0 MCHC 33.5 g/dL (Normal) Range: 32-36 MCV 82.2 fL (Normal) Range: 81-99 MONOCYTE 3 % (Normal) Range: 0-10 PLT 277 K/mm3 (Normal) Range: 150-450 PLT EST SeeNote (Normal) Comments: Result: ADEQUATE RBC 4.90 {M/mm3} (Normal) Range: 4.2-5.4 RDW 14.2 % (Normal) Range: 11.6-14.6 RED CELL MORPH SeeNote {NORMAL} (Normal) Comments: Result: NORM C+C SEGS 75 % (Abnormal) Range: 47-70 WBC 7.2 K/mm3 (Normal) Range: 4.4-11.0 :52 COMP METABOLIC A/G 1.1 {RATIO} (Normal) Range: 0.9-2.4 ALB 3.9 g/dL (Normal) Range: 3.4-5.0 ALK P 132 U/L (Normal) Range: 50-136 ALT 34 U/L (Normal) Range: 30-65 AST 19 U/L (Normal) Range: 15-37 BUN 24 mg/dL (Abnormal) Range: 7-18 BUN/CRE 24.0 {RATIO} (Abnormal) Range: 10-20 CA 9.6 mg/dL (Normal) Range: 8.5-10.1 CL 105 mmol/L (Normal) Range: 98-107 CO2 28.1 mmol/L (Normal) Range: 21.0-32.0 CREAT,SERUM 1.0 mg/dL (Normal) Range: 0.6-1.0 GAP 6 (Normal) Range: 5-15 GLOB 3.4 g/dL (Normal) Range: 2.7-4.2 GLU 97 mg/dL (Normal) Range: 70-110 K 4.7 mmol/L (Normal) Range: 3.5-5.1 NA 139 mmol/L (Normal) Range: 136-145 T BILI 0.53 mg/dL (Normal) Range: 0.00-1.00 T PROT 7.3 g/dL (Normal) Range: 6.4-8.2 :52 LIPID CHOL 197 mg/dL (Normal) Comments: <200 mg/dL Desirable 200-240 mg/dL Borderline >240 mg/dL High Risk HDL 64 mg/dL (Normal) Comments: Reference Range HDL <40 mg/dL Low HDL Cholesterol HDL >or= 60 mg/dL High HDL Cholesterol LDL 117 mg/dL (Normal) Range: 0-130 TRIG 81 mg/dL (Normal) Comments: Serum Triglycerides Reference Interval Normal <150 mg/dL Borderline high 150 - 199 mg/dL High 200 - 499 mg/dL Very High > or = 500 mg/dL VLDL 16 mg/dL (Normal) Range: 5-40 5-Kng-480198:59 LQD PAP [id number] Comments: CYTOLOGY INFORMATION:- CLINICAL INFORMATION: POSTMENOPAUSAL- DATE LMP/MENOPAUSE: MENOPAUSE- COLLECTION VIAL: Thin Prep Vial- SCREW 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 Endocervical and/or squamous metaplasticcells (endocervical component) are present. COMM . (Normal) DIAGN Comment (Normal) Comments: NEGATIVE FOR INTRAEPITHELIAL LESION AND MALIGNANCY. HPV RFLX Comment (Normal) Comments: The HPV DNA reflex criteria were not met with this specimenresult therefore, no HPV testing was performed. .Performed At: [address] [id number] PAPSMR Comment (Normal) Comments: The Pap smear is a screening test designed to aid in thedetection of premalignant and malignant conditions of theuterine cervix. It is not a diagnostic procedure andshould not be used as the sole means of detecting cervicalcancer. Both false-positive and false-negative reports dooccur. . PERFORM Comment (Normal) Comments: Diandra Bee, Corner Cutter Machine Operator (ASCP) 55-Tww-[id number]:36 DEXA BONE DENSITY STUDY (HP) Radiology Report See Note (Normal) Comments: Exam Number: [id number] BONE DENSITOMETRY TECHNIQUE Bone densitometry of the lumbar spine and left hip was performed. Thebest criteria for evaluation of osteoporosis is the T-value, whic hrepresents the comparison of the patient's bone mass to an expectedpeak bone mass. For most patients, the mean T-value of L1 through L4is used to evaluate the lumbar spine. Based on the newest [employer] zation classifications, the hip is evaluated by utilizingthe lower of the T-value of the total hip or the T-value of thefemoral neck. FINDINGSIn this patient, the mean T-value of L1 through L4 is 0.9 which iswithin normal limits. Bone mineral density is measured at l0.3%greater than in 1998 and 7.2% greater than in 2004. Digital lateralview for evaluation of vertebral deformity only demonstrates noobvious compression fractures. The T-value of the left femoral neckis - 0.8 which is normal. The T-value of the total left hip is -0.4which is no 17.2% less than in l999 and 7.7% less than in 2004. I MPRESSIONBone densitometry of the lumbar spine and left hip is within normallimits. Reported By: DOMENICA GATES M.D. :55 COMP METABOLIC A/G 1.3 {RATIO} (Normal) Range: 0.9-2.4 ALB 4.0 g/dL (Normal) Range: 3.4-5.0 ALK P 150 U/L (Abnormal) Range: 50-136 ALT 38 U/L (Normal) Range: 30-65 AST 22 U/L (Normal) Range: 15-37 BUN 17 mg/dL (Normal) Range: 7-18 BUN/CRE 17.0 {RATIO} (Normal) Range: 10-20 CA 9.5 mg/dL (Normal) Range: 8.5-10.1 CL 108 mmol/L (Abnormal) Range: 98-107 CO2 28.5 mmol/L (Normal) Range: 21.0-32.0 CREAT,SERUM 1.0 mg/dL (Normal) Range: 0.6-1.0 GAP 7 (Normal) Range: 5-15 GLOB 3.1 g/dL (Normal) Range: 2.7-4.2 GLU 89 mg/dL (Normal) Range: 70-110 K 4.7 mmol/L (Normal) Range: 3.5-5.1 NA 143 mmol/L (Normal) Range: 136-145 T BILI 0.54 mg/dL (Normal) Range: 0.00-1.00 T PROT 7.1 g/dL (Normal) Range: 6.4-8.2 :55 TSH 2.13 {uIU/mL} (Normal) Range: 0.34-4.82 :12 C-REACTIVE PROT 5.51 mg/L (Normal) Range: 0.0-6.0 Comments: Test performed using the Dimension C-Reactive ProteinExtended Range assay method. This assay meets the AHA/CDC 2003 recommendations fordetermining patients at high risk for cardiovasculardisease. Reference: High risk CRP >3.0 mg/L 24-Qer-836315:12 CBCD,SMEAR DIFF BAND 1 % (Normal) Range: 0-5 BASOPHIL 1 % (Normal) Range: 0-1 CELLS COUNTED 100 (Normal) EOS 2 % (Normal) Range: 0-5 HCT 36.5 % (Abnormal) Range: 37-47 HGB 12.4 g/dL (Normal) Range: 12.0-16.0 LYMPH 28 % (Normal) Range: 19-41 MCH 28.2 pg (Normal) Range: 27.0-32.0 MCHC 33.9 g/dL (Normal) Range: 32-36 MCV 83.3 fL (Normal) Range: 81-99 MONOCYTE 5 % (Normal) Range: 0-10 PLT 271 K/mm3 (Normal) Range: 150-450 PLT EST SeeNote (Normal) Comments: Result: ADEQUATE RBC 4.39 {M/mm3} (Normal) Range: 4.2-5.4 RDW 14.0 % (Normal) Range: 11.6-14.6 RED CELL MORPH SeeNote {NORMAL} (Normal) Comments: Result: NORM C+C SEGS 63 % (Normal) Range: 47-70 WBC 6.2 K/mm3 (Normal) Range: 4.4-11.0 00-Ocs-255568:12 COMP METABOLIC A/G 1.5 {RATIO} (Normal) Range: 0.9-2.4 ALB 3.7 g/dL (Normal) Range: 3.4-5.0 ALK P 134 U/L (Normal) Range: 50-136 ALT 33 U/L (Normal) Range: 30-65 AST 20 U/L (Normal) Range: 15-37 BUN 18 mg/dL (Normal) Range: 7-18 BUN/CRE 18.0 {RATIO} (Normal) Range: 10-20 CA 8.9 mg/dL (Normal) Range: 8.5-10.1 CL 107 mmol/L (Normal) Range: 98-107 CO2 27.5 mmol/L (Normal) Range: 21.0-32.0 CREAT,SERUM 1.0 mg/dL (Normal) Range: 0.6-1.0 GAP 9 (Normal) Range: 5-15 GLOB 2.4 g/dL (Abnormal) Range: 2.7-4.2 GLU 98 mg/dL (Normal) Range: 70-110 K 4.0 mmol/L (Normal) Range: 3.5-5.1 NA 143 mmol/L (Normal) Range: 136-145 T BILI 0.42 mg/dL (Normal) Range: 0.00-1.00 T PROT 6.1 g/dL (Abnormal) Range: 6.4-8.2 04-Qqj-508612:12 FUNEZ A AB [id number] FUNEZ A TYPE 10 <1:8 (Normal) FUNEZ A TYPE 16 <1:8 (Normal) Comments: .REFERENCE RANGE: <1:8 .INTERPRETIVE CRITERIA: <1:8 Antibody Not Detected > or = 1:8 Antibody Detected .Single titers of > or = 1:32 are indicative ofrecent infection. Titers of 1:8 or 1:16 may beindicative of either past or recent infection,since CF antibody levels persist for only a fewmonths. A four-fold or greater increase in titerbetween acute and conv alescent specimens confirmsthe diagnosis. There is considerablecrossreactivity among enteroviruses; however, thehighest titer is usually associated with theinfecting serotype. .This test was developed and its performancecharacteristics have been determined by [employer]. Performance characteristics refer tothe analytical performance of the test. FUNEZ A TYPE 2 <1:8 (Normal) FUNEZ A TYPE 4 <1:8 (Normal) FUNEZ A TYPE 7 <1:8 (Normal) FUNEZ A TYPE 9 <1:8 (Normal) 34-Nds-550905:12 ESR SED RATE 14 mm/h (Normal) Range: 0-30 25-Cag-307189:12 RA LATEX 6502 7.1 {IU/mL} (Normal) Range: 0.0-13.9 Comments: Performed At: [id number] [place], [place] [id number] At: [facility] [id number] [place], [place] [id number] 38-Irz-840309:12 TSH 0.16 {uIU/mL} (Abnormal) Range: 0.34-4.82 68-Ukr-666641:21 PELVIS WITH CONTRAST Radiology Report See Note (Normal) Comments: Exam Number: [id number] CT ABDOMEN AND PELVIS WITH CONTRAST. CLINICAL STATEMENTPain, worse in the lower quadrants. Helical imaging through the abdomen and pelvis used 3.75-mm sections,oral contrast, an d 100-ml Isovue 300 intravenous enhancement. Lung bases are clear. There is a small pericardial effusion. Below the diaphragm, the spleen, pancreas, and adrenal glands areunremarkable. Biliary tra ct contains fluid density with no dilatedduct. There is a small cyst in the medial left hepatic lobe of theliver. In the lower abdomen, the bowel loops are not dilated. There is noascites, free air, or adenopathy found. There is a peripelvic smallcyst in the right kidney. The aorta tapers normally. Appendix isvisible and normal. The uterus is retroverted. Urinary bladder isunremarkable. The o varies are not enlarged. No inflammatory processis identified. IMPRESSION1. No acute abnormality in the abdomen or pelvis. A retroverted uterus is incidentally noted.2. Small pericardial effusion. Reported By: TODD KENNEDY M.D. 95-Zlj-676694:11 ABDOMEN WITH CONTRAST Radiology Report See Note (Normal) Comments: Exam Number: [id number] CT ABDOMEN AND PELVIS WITH CONTRAST. CLINICAL STATEMENTPain, worse in the lower quadrants. Helical imaging through the abdomen and pelvis used 3.75-mm sections,oral contrast, an d 100-ml Isovue 300 intravenous enhancement. Lung bases are clear. There is a small pericardial effusion. Below the diaphragm, the spleen, pancreas, and adrenal glands areunremarkable. Biliary tra ct contains fluid density with no dilatedduct. There is a small cyst in the medial left hepatic lobe of theliver. In the lower abdomen, the bowel loops are not dilated. There is noascites, free air, or adenopathy found. There is a peripelvic smallcyst in the right kidney. The aorta tapers normally. Appendix isvisible and normal. The uterus is retroverted. Urinary bladder isunremarkable. The o varies are not enlarged. No inflammatory processis identified. IMPRESSION1. No acute abnormality in the abdomen or pelvis. A retroverted uterus is incidentally noted.2. Small pericardial effusion. Reported By: TODD KENNEDY M.D. 45-Itz-[id number]:38 MARCUS 45 U/L (Normal) Range: 25-115 69-Hfm-846611:38 CBCD,SMEAR DIFF BAND 1 % (Normal) Range: 0-5 CELLS COUNTED 100 (Normal) EOS 1 % (Normal) Range: 0-5 HCT 37.0 % (Normal) Range: 37-47 HGB 12.7 g/dL (Normal) Range: 12.0-16.0 LYMPH 30 % (Normal) Range: 19-41 MCH 28.0 pg (Normal) Range: 27.0-32.0 MCHC 34.3 g/dL (Normal) Range: 32-36 MCV 81.8 fL (Normal) Range: 81-99 MONOCYTE 7 % (Normal) Range: 0-10 PLT 262 K/mm3 (Normal) Range: 150-450 PLT EST SeeNote (Normal) Comments: Result: ADEQUATE RBC 4.52 {M/mm3} (Normal) Range: 4.2-5.4 RDW 13.7 % (Normal) Range: 11.6-14.6 RED CELL MORPH SeeNote {NORMAL} (Normal) Comments: Result: NORM C+C SEGS 61 % (Normal) Range: 47-70 WBC 5.9 K/mm3 (Normal) Range: 4.4-11.0 22-Yuq-404608:38 LIPASE 190 U/L (Normal) Range: 114-286 05-Pxh-844645:45 BILAT SCRN DIGITAL & CAD Radiology Report See Note (Normal) Comments: Exam Number: [id number] MAMMOGRAM, BILATERAL SCREENING DIGITAL AND CAD HISTORYRoutine screening. TECHNIQUEFull field digital images were obtained in mediolateral oblique andcraniocaudal proje ctions. CAD images were reviewed. COMPARISONThe current study is compared to the examinations of May of 2002 andAugust of 2005. FINDINGSThere is moderately dense fibroglandular parenchyma present. There isno skin thickening or retraction, architectural distortion, or clusterof suspicious microcalcifications. There are a few scatteredcalcifications present. There is no dominant mass identified. Ifthere is no suspicious palpable abnormality, followup mammogram in 1year is recommended. IMPRESSIONThere is no radiographic evidence of malignancy identified. FINAL ASSESSMENTBIRADS Category 2 - Benign. A letter r egarding these results has been sent to the patient. This interpretation was rendered by a radiologist certified under theMammography Quality Standards Act of 1992 (MQSA). The mammograms werealso exam ined with computer-aided detection software ([employer], Mobile [employer].). Reported By: DOMENICA GATES M.D. :33 CHEST W/WO CONTRAST Radiology Report See Note (Normal) Comments: Exam Number: [id number] CT SCAN OF CHEST HISTORYLung nodule. Consecutive axial scans were obtained at 2.5 mm intervals through thelung bases without intravenous contrast enhancement. Scans were thenobt ained at 5 mm intervals from the lung apices to the adrenalswith the intravenous administration of 120 milliliters of Isovue 300. There is no hilar, mediastinal, or axillary adenopathy identified. Nopl eural effusion is identified. There is a suggestion of minimalpericardial thickening, also seen 08-25-03. There is minimal apicalscar. The density identified in the right lower lobe on the previousexa mination is again identified. It is measured as 1 mm larger thanon the previous examination although this may be explained by theavailability of 2.5 mm thick sections as well as the standard 5 mmimage s. On the current examination, there is a CT attenuationcoefficient of 135 Hounsfield units obtained. Visually, the nodule issignificantly denser than seen previously and it appears that thissmall les ion represented a granuloma which has calcified in theinterval between studies. Inferior and lateral to this nodule is amuch smaller nodule measuring 2 to 3 mm in size. This is alsocalcified. What is seen of liver and spleen is unremarkable. IMPRESSION1. The small nodule identified 08-25-03 is now calcified. There is asecond smaller calcified granuloma also present in the right lowerlobe. 2. T here is no acute pulmonary abnormality identified. Reported By: DOMENICA GATES M.D. :07 CBCD,SMEAR DIFF BAND 1 % (Normal) Range: 0-5 BASOPHIL 2 % (Abnormal) Range: 0-1 CELLS COUNTED 100 (Normal) EOS 5 % (Normal) Range: 0-5 HCT 34.4 % (Abnormal) Range: 37-47 HGB 11.6 Gm/dl (Abnormal) Range: 12.0-16.0 LYMPH 37 % (Normal) Range: 19-41 MCH 29.4 PG (Normal) Range: 27-32 MCHC 33.8 g/dL (Normal) Range: 32-36 MCV 87 fL (Normal) Range: 81-99 MONOCYTE 6 % (Normal) Range: 0-10 PLT 259 K/mm3 (Normal) Range: 150-450 PLT EST SeeNote (Normal) Comments: Result: ADEQUATE RBC 3.96 {M/mm3} (Abnormal) Range: 4.2-5.4 RDW 13.7 % (Normal) Range: 11.6-14.6 RED CELL MORPH SeeNote {NORMAL} (Normal) Comments: Result: NORM C&C SEGS 49 % (Normal) Range: 47-70 WBC 4.2 K/mm3 (Abnormal) Range: 4.4-11.0 48-Fuy-86716:07 COMP METABOLIC A/G 1.5 {RATIO} (Normal) Range: 0.9-2.4 ALB 4.0 g/dL (Normal) Range: 3.4-5.0 ALK P 111 U/L (Normal) Range: 50-136 ALT 33 [iU]/L (Normal) Range: 30-65 AST 13 U/L (Abnormal) Range: 15-37 BUN 21 mg/dL (Abnormal) Range: 7-18 BUN/CRE 19.1 {RATIO} (Normal) Range: 10-20 CA 9.2 mg/dL (Normal) Range: 8.5-10.1 CL 106 mmol/L (Normal) Range: 98-107 CO2 29.6 mmol/L (Abnormal) Range: 22.0-29.0 CREAT,SERUM 1.1 mg/dL (Abnormal) Range: 0.6-1.0 GAP 7 (Normal) Range: 5-15 GLOB 2.6 g/dL (Normal) Range: 2.3-3.5 GLU 85 mg/dL (Normal) Range: 70-110 K 4.3 mmol/L (Normal) Range: 3.5-5.1 NA 143 mmol/L (Normal) Range: 136-145 T BILI 0.33 mg/dL (Normal) Range: 0.00-1.00 T PROT 6.6 g/dL (Normal) Range: 6.4-8.2 :07 COMPLETE UA BACTERIA RARE {/hpf} (Normal) BILIRUBIN URINE SeeNote (Normal) Comments: Result: NEGATIVE CLARITY SeeNote (Normal) Comments: Result: SL CLOUDY COLOR YELLOW (Normal) GLUCOSE, UR SeeNote (Normal) Comments: Result: NEGATIVE KETONE UR SeeNote mg/dL (Normal) Comments: Result: NEGATIVE LEUK ESTERASE SeeNote (Normal) Comments: Result: NEGATIVE MUCUS, URINE 0 SEEN {/hpf} (Normal) NITRITE UR SeeNote (Normal) Comments: Result: NEGATIVE OCCULT BLOOD-UR SeeNote (Normal) Comments: Result: NEGATIVE pH UR 5.5 (Normal) Range: 5.0-8.0 PROT DIPSTX SeeNote (Normal) Comments: Result: NEGATIVE RBC-UA 0 SEEN {/hpf} (Normal) Range: 0-5 SP.GR. DIPSTX 1.020 (Normal) Range: 1.002-1.030 SQUAM EPI SeeNote {/hpf} (Normal) Range: 5-10 Comments: Result: 10-25 SEEN UROBILI 0.2 EU/dl (Normal) Range: 0.2 - 1.0 WBC SeeNote {/hpf} (Normal) Range: 0-5 Comments: Result: 0-5 SEEN :07 MICROALB:CRE UR MALB:CREAT 11.9 {mg/g_CRE} (Normal) MICROALBUMIN,UR 8.8 mg/L (Normal) UR CREAT 74.2 mg/dL (Normal) :07 PFLIP CHOL 179 mg/dL (Normal) Comments: <200 mg/dL Desirable 200-240 mg/dL Borderline >240 mg/dL High Risk HDL 55 mg/dL (Normal) Comments: Reference Range HDL <40 mg/dL Low HDL Cholesterol HDL >or= 60 mg/dL High HDL Cholesterol LDL 104 mg/dL (Normal) Range: 0-130 TRIG 99 mg/dL (Normal) Comments: Serum Triglycerides Reference Interval Normal <150 mg/dL Borderline high 150 - 199 mg/dL High 200 - 499 mg/dL Very High > or = 500 mg/dL VLDL 20 mg/dL (Normal) Range: 5-40 :07 TSH 0.40 {uIU/mL} (Normal) Range: 0.34-4.82 Plan of Care Name Dates Details Instructions Essential hypertension : Eprescribed prescriptions (G8553) Indication: Essential hypertension BMI 37.0-37.9, adult : Eprescribed prescriptions (G8553) Indication: BMI 37.0-37.9, adult Nonsmoker : Eprescribed prescriptions (G8553) Indication: Nonsmoker Essential hypertension : Eprescribed prescriptions (G8553) Indication: Essential hypertension DEFICIENCY, B-COMPLEX NEC : Eprescribed prescriptions (G8553) Indication: DEFICIENCY, B-COMPLEX NEC BMI 37.0-37.9, adult : Eprescribed prescriptions (G8553) Indication: BMI 37.0-37.9, adult [facility] : Eprescribed prescriptions (G8553) Indication: [facility] Hip pain, right : Eprescribed prescriptions (G8553) Indication: Hip pain, right Other vitamin B12 deficiency anemia : Eprescribed prescriptions (G8553) Indication: Other vitamin B12 deficiency anemia DEFICIENCY, B-COMPLEX NEC : Eprescribed prescriptions (G8553) Indication: DEFICIENCY, B-COMPLEX NEC Urinary frequency : Eprescribed prescriptions (G8553) Indication: Urinary frequency Pre-operative exam (Renamed from Preoperative examination) : Eprescribed prescriptions (G8553) Indication: Pre-operative exam (Renamed from Preoperative examination) Essential hypertension : Eprescribed prescriptions (G8553) Indication: Essential hypertension Abdominal pain, acute, right lower quadrant : Abdominal Pain: abdominal pain Indication: Abdominal pain, acute, right lower quadrant Abdominal pain, acute, right lower quadrant : Eprescribed prescriptions (G8553) Indication: Abdominal pain, acute, right lower quadrant b12 deficiency : Eprescribed prescriptions (G8553) Indication: b12 deficiency Vitamin D deficiency, unspecified : Eprescribed prescriptions (G8553) Indication: Vitamin D deficiency, unspecified Hypercholesterolemia : Eprescribed prescriptions (G8553) Indication: Hypercholesterolemia Cystitis, acute : Water in diet, brief version Indication: Cystitis, acute UTI (lower urinary tract infection) : Follow up for urine check when back as nurse visit Indication: UTI (lower urinary tract infection) Vaginal itching : [facility] Indication: Vaginal itching Low Back Pain (Renamed from LBP (low back pain)) : Eprescribed prescriptions (G8553) Indication: Low Back Pain (Renamed from LBP (low back pain)) Chest pain : GERD Education Indication: Chest pain Chest pain : Follow up in 3 weeks Indication: Chest pain Chest pain : Reviewed Lab Indication: Chest pain Chest pain : Reviewed Diagnostic Tests: enz and stress test normal Indication: Chest pain Chest pain : Reviewed 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 Indication: Chest pain Osteoarthritis, unspecified osteoarthritis type, unspecified site : Osteoarthritis *: arthritis Indication: Osteoarthritis, unspecified osteoarthritis type, unspecified site Hypercholesterolemia : Diet, Exercise, and Wt loss Indication: Hypercholesterolemia DEFICIENCY, B-COMPLEX NEC : Follow up - Make appt after diagnostic tests Indication: DEFICIENCY, B-COMPLEX NEC Well woman exam with routine gynecological exam : Self breast exam Indication: Well woman exam with routine gynecological exam Well woman exam with routine gynecological exam : *Well Female Maintenance (KF) Indication: Well woman exam with routine gynecological exam Well woman exam with routine gynecological exam : Pap/Pelvic/Bimanual/Rectal/Breast Exam was done. Indication: Well woman exam with routine gynecological exam Encounter for immunization : Shingles Vaccine Education 2005 Indication: Encounter for immunization Well woman exam with routine gynecological exam : Self Breast Exam Education Indication: Well woman exam with routine gynecological exam Well woman exam with routine gynecological exam : Pap/Pelvic/Bimanua/Breast Exam was done. Indication: Well woman exam with routine gynecological exam Well woman exam with routine gynecological exam : Well Female Maintenance (KF) Indication: Well woman exam with routine gynecological exam Lung nodule : Reviewed Diagnostic Tests Indication: Lung nodule Abdominal pain, acute, right upper quadrant : FOLLOW UP IN 1 MONTH Indication: Abdominal pain, acute, right upper quadrant Well woman exam with routine gynecological exam : Self Breast Exam Education Indication: Well woman exam with routine gynecological exam Well woman exam with routine gynecological exam : *Colon Cancer Screening Indication: Well woman exam with routine gynecological exam Well woman exam with routine gynecological exam : Pap/Pelvic/Bimanual/Rectal/Breast Exam was done. Indication: Well woman exam with routine gynecological exam Well woman exam with routine gynecological exam : Well Female Maintenance (KF) Indication: Well woman exam with routine gynecological exam Acquired hypothyroidism : Reviewed Lab Indication: Acquired hypothyroidism Hypercholesterolemia : Diet and Exercise Indication: Hypercholesterolemia Planned Observations CBC W/AUTO DIFF WBC ([id number])Indication: Prolonged QT interval On: 2-Qxj-899552:18 Request METABOLIC PANEL, COMPREHENSIVE (46602)Indication: Prolonged QT interval On: 8-Qoq-819558:18 Request VITAMIN B-12 (CYANOCOBALAMIN) (18693)Indication: DEFICIENCY, B-COMPLEX NEC On: :18 Request TSH (78365)Indication: Acquired hypothyroidism On: :17 Request LIPOPROTEIN, BLD, BY NMR (80972)Indication: Hypercholesterolemia On: :17 Request VITAMIN B-12 (CYANOCOBALAMIN) (80873)Indication: DEFICIENCY, B-COMPLEX NEC On: :18 Request LIPID PANEL (28689)Indication: Hypercholesterolemia On: :18 Request CBC W/AUTO DIFF WBC (86833)Indication: Right flank pain On: :17 Request METABOLIC PANEL, COMPREHENSIVE (72128)Indication: Right flank pain On: :17 Request Vitamin D Hydroxy (57087)Indication: Vitamin D deficiency, unspecified On: :17 Request Urinalysis, Office (00651)Indication: Urinary frequency On: 41-Hdj-525455:22 Request VITAMIN B-12 (CYANOCOBALAMIN) (80492)Indication: Other vitamin B12 deficiency anemia On: 6-Jmf-600878:28 Request Comments: Lot:[id number]:1mlRoute:IMSite:r arm Given By:TAVON signed Vitamin D Hydroxy (12478)Indication: Vitamin D deficiency, unspecified On: :42 Request LIPID PANEL (75998)Indication: Hypercholesterolemia On: :42 Request METABOLIC PANEL, COMPREHENSIVE (50490)Indication: Essential hypertension On: :36 Request TSH (81279)Indication: Acquired hypothyroidism On: :36 Request CBC with auto diff (65532)Indication: Abdominal pain, acute, right lower quadrant On: :06 Request METABOLIC PANEL, COMPREHENSIVE (45340)Indication: Abdominal pain, acute, right lower quadrant On: :06 Request Urinalysis, Office (21338)Indication: Low Back Pain (Renamed from LBP (low back pain)) On: 39-Hdb-659425:09 Request Vitamin D Hydroxy (78524)Indication: Vitamin D deficiency, unspecified On: 62-Uvn-150897:32 Request METABOLIC PANEL, COMPREHENSIVE (52839)Indication: Essential hypertension On: :31 Request LIPID PANEL (60562)Indication: Hypercholesterolemia On: :31 Request TSH (46447)Indication: Acquired hypothyroidism On: :31 Request LIPID PANEL (92731)Indication: Hypercholesterolemia On: :45 Request TSH (14160)Indication: Acquired hypothyroidism On: :44 Request METABOLIC PANEL, COMPREHENSIVE (83140)Indication: Essential hypertension On: :44 Request CBC, PLATELETS & AUT DIFF (68947)Indication: DEFICIENCY, B-COMPLEX NEC On: :43 Request VITAMIN B-12 (CYANOCOBALAMIN) (66222)Indication: DEFICIENCY, B-COMPLEX NEC On: :43 Request Vitamin D Hydroxy (93001)Indication: Vitamin D deficiency, unspecified On: :43 Request IRON (99262)Indication: Anemia On: 3-Smj-719964:42 Request Vitamin D Hydroxy (11591)Indication: Vitamin D deficiency, unspecified On: 2-Sxu-676189:36 Request VITAMIN B-12 (CYANOCOBALAMIN) (39731)Indication: DEFICIENCY, B-COMPLEX NEC On: 1-Bzc-129220:35 Request CBC WITH MANUAL DIFF (38237)Indication: DEFICIENCY, B-COMPLEX NEC On: 1-Mcc-811418:35 Request METABOLIC PANEL, COMPREHENSIVE (40214)Indication: Essential hypertension On: 1-Mdl-197321:35 Request T3, FREE (TRIDOTHYRONINE) (28493)Indication: Acquired hypothyroidism On: 1-Mpl-077193:35 Request T4, FREE (90856)Indication: Acquired hypothyroidism On: 6-Jwi-613384:35 Request TSH (19644)Indication: Acquired hypothyroidism On: 2-Njs-118563:34 Request TSH (31225)Indication: Acquired hypothyroidism On: 24-Gen-859999:23 Request Comments: recheck in 6 weeks Metabolic Panel, Basic (95426)Indication: Essential hypertension On: 40-Sey-143829:16 Request TSH (63708)Indication: Acquired hypothyroidism On: 92-Hem-588844:22 Request C-REACTIVE PROTEIN (44695)Indication: right lower quadrant pain On: 77-Bvu-214094:51 Request SED RATE ERYTHROCYTE (06273)Indication: right lower quadrant pain On: :51 Request Magnesium (88001)Indication: Leg cramps On: 21-Ijf-173724:43 Request CBC WITH MANUAL DIFF (68795)Indication: Edema leg On: :42 Request LIPID PANEL (56825)Indication: Hypercholesterolemia On: :41 Request METABOLIC PANEL, COMPREHENSIVE (38574)Indication: Essential hypertension On: :41 Request VITAMIN B-12 (CYANOCOBALAMIN) (85360)Indication: Other vitamin B12 deficiency anemia On: :41 Request Vitamin D Hydroxy (14195)Indication: Vitamin D deficiency, unspecified On: :41 Request Metabolic Panel, Basic (84848)Indication: Acute renal failure, unspecified acute renal failure type On: :31 Request TSH (00488)Indication: Acquired hypothyroidism On: :30 Request LIPID PANEL (38415)Indication: Hypercholesterolemia On: :39 Request Vitamin D Hydroxy (16475)Indication: Vitamin D deficiency, unspecified On: :39 Request VITAMIN B-12 (CYANOCOBALAMIN) (64403)Indication: Other vitamin B12 deficiency anemia On: :39 Request CBC WITH MANUAL DIFF (68871)Indication: Other vitamin B12 deficiency anemia On: :39 Request METABOLIC PANEL, COMPREHENSIVE (55613)Indication: Essential hypertension On: :39 Request Vitamin D Hydroxy (53793)Indication: Vitamin D deficiency, unspecified On: :37 Request LIPID PANEL (70480)Indication: Hypercholesterolemia On: :37 Request TSH (27996)Indication: Acquired hypothyroidism On: :37 Request CBC WITH MANUAL DIFF (70840)Indication: Essential hypertension On: :39 Request METABOLIC PANEL, COMPREHENSIVE (41242)Indication: Essential hypertension On: :39 Request VITAMIN B-12 (CYANOCOBALAMIN) (77947)Indication: b12 deficiency On: :39 Request LIPID PANEL (39551)Indication: Hypercholesterolemia On: :39 Request Vitamin D Hydroxy (39130)Indication: Vitamin D deficiency, unspecified On: :32 Request VITAMIN B-12 (CYANOCOBALAMIN) (00323)Indication: b12 deficiency On: :32 Request Vitamin D Hydroxy (90501)Indication: Vitamin D deficiency, unspecified On: :32 Request METABOLIC PANEL, COMPREHENSIVE (46291)Indication: Essential hypertension On: :32 Request LIPID PANEL (89754)Indication: Hypercholesterolemia On: :32 Request TSH (37776)Indication: Acquired hypothyroidism On: :32 Request CBC WITH MANUAL DIFF (07345)Indication: Essential hypertension On: :30 Request METABOLIC PANEL, COMPREHENSIVE (67485)Indication: Essential hypertension On: :29 Request VITAMIN B-12 (CYANOCOBALAMIN) (65566)Indication: DEFICIENCY, B-COMPLEX NEC On: :29 Request Vitamin D Hydroxy (12860)Indication: Vitamin D deficiency, unspecified On: :29 Request TSH (97796)Indication: Acquired hypothyroidism On: :29 Request LIPID PANEL (85465)Indication: Hypercholesterolemia On: :29 Request Vitamin B-12 (cyanocobalamin) (91527)Indication: b12 deficiency On: 37-Bek-679835:01 Request CALCIFIDIOL (49140) VIT D 25Indication: Vitamin D deficiency, unspecified On: 99-Yuu-002624:00 Request TSH (60958)Indication: Acquired hypothyroidism On: :34 Request LIPID PANEL (79717)Indication: Hypercholesterolemia On: :34 Request Metabolic Panel, Basic (27947)Indication: Essential hypertension On: 49-Uvx-770485:26 Request VITAMIN B-12 (CYANOCOBALAMIN) (97566)Indication: DEFICIENCY, B-COMPLEX NEC On: 32-Yig-038480:19 Request Vitamin D Hydroxy (80478)Indication: Vitamin D deficiency, unspecified On: 89-Mej-461281:19 Request VITAMIN D, 1, 25-DIHYDROXY (67489)Indication: Vitamin D deficiency, unspecified On: 9-Kec-905717:19 Request Comments: Vit D [place] Vitamin B-12 (cyanocobalamin) (69224)Indication: b12 deficiency On: 7-Nga-458295:17 Request CBC WITH MANUAL DIFF (27888)Indication: b12 deficiency On: 22-Nur-688960:17 Request VITAMIN B-12 (CYANOCOBALAMIN) (60554)Indication: b12 deficiency On: 69-Obj-899655:14 Request VITAMIN B-12 (CYANOCOBALAMIN) (29803)Indication: Vitiligo On: 04-Evh-302199:37 Request LIPID PANEL (94089)Indication: Hypercholesterolemia On: 25-Iqq-627695:33 Request TSH (20594)Indication: Acquired hypothyroidism On: 01-Kxv-329817:32 Request Vitamin D Hydroxy (08249)Indication: Vitamin D deficiency, unspecified On: 82-Khw-341784:31 Request METABOLIC PANEL, COMPREHENSIVE (94490)Indication: Essential hypertension On: 10-Gqm-874127:42 Request Vitamin D Hydroxy (02812)Indication: Vitamin D deficiency, unspecified On: 70-Xrj-924903:42 Request CAROL (ANTINUCLEAR ANTIBODY) (45517)Indication: Pain in unspecified joint On: :27 Request C-REACTIVE PROTEIN (57882)Indication: Pain in unspecified joint On: :27 Request CBC WITH MANUAL DIFF (12924)Indication: Pain in unspecified joint On: :27 Request CCP ANTIBODY (87057)Indication: Pain in unspecified joint On: :27 Request METABOLIC PANEL, COMPREHENSIVE (17694)Indication: Pain in unspecified joint On: : Request RHEUMATOID FACTOR-QUANT (62225)Indication: Pain in unspecified joint On: : Request SED RATE ERYTHROCYTE (74467)Indication: Pain in unspecified joint On: :27 Request TSH (19674)Indication: Pain in unspecified joint On: : Request SED RATE ERYTHROCYTE (39471)Indication: flank pain On: :35 Request C-REACTIVE PROTEIN (89456)Indication: flank pain On: :35 Request METABOLIC PANEL, COMPREHENSIVE (35790)Indication: flank pain On: :35 Request CBC WITH MANUAL DIFF (29274)Indication: flank pain On: :35 Request URINE CESAR CULTURE (TUNDE COL COUNT) (48429)Indication: flank pain On: :35 Request Thin prep Pap (30336)Indication: Well woman exam with routine gynecological exam On: 4-Llg-094763:09 Request CBC WITH MANUAL DIFF (87082)Indication: Essential hypertension On: 14-Vnj-200843:02 Request METABOLIC PANEL, COMPREHENSIVE (35747)Indication: Essential hypertension On: 67-Ulz-163445:02 Request LIPID PANEL (74154)Indication: Hypercholesterolemia On: :02 Request METABOLIC PANEL, COMPREHENSIVE (23212)Indication: Essential hypertension On: 10-Vjl-953097:18 Request TSH (87682)Indication: Acquired hypothyroidism On: 08-Dft-022675:18 Request SED RATE ERYTHROCYTE (23424)Indication: Abdominal pain, acute, left upper quadrant On: 85-Uvz-074663:09 Request C-REACTIVE PROTEIN (56418)Indication: Abdominal pain, acute, left upper quadrant On: 05-Kux-676080:09 Request CBC WITH MANUAL DIFF (15286)Indication: edema On: 93-Ims-868774:09 Request METABOLIC PANEL, COMPREHENSIVE (82782)Indication: edema On: 26-Fpw-395602:09 Request TSH (77846)Indication: Acquired hypothyroidism On: 31-Hbh-790363:03 Request CBC WITH MANUAL DIFF (88385)Indication: Abdominal pain, acute, left upper quadrant On: 58-Akn-081668:22 Request Lipase (34796)Indication: Abdominal pain, acute, left upper quadrant On: 16-Xxx-466353:22 Request Amylase (02186)Indication: Abdominal pain, acute, left upper quadrant On: 68-Lzz-292808:21 Request Thin prep Pap (14431)Indication: Well woman exam with routine gynecological exam On: 22-Nlw-586392:43 Request HEPATIC FUNCTION PANEL (94625)Indication: Hypercholesterolemia On: 22-Awa-243151:52 Request LIPID PANEL (06062)Indication: Hypercholesterolemia On: 93-Dua-159171:52 Request CBC, PLATELETS & AUTO DIFF (05254)Indication: Leukopenia On: 00-Bnv-270387:34 Request Planned Encounters Medical; DARRIAN 6 Month Fu - On: 03-Jul-2018 13:00 [facility] Fast DO, Kristine A Fast DO, Kristine A Planned Procedures DEXA SCAN AXIAL SKELETON (21684)By: On: 02-Jan-2018 Intent Fast DO, Kristine A Fast DO, Kristine A Comments: mar - RenalBy: Fast DO, On: 02-Jan-2018 Intent Kristine A Fast DO, Kristine A Flu Vaccine (Quadrivalent) [id number]: On: 02-Jan-2018 Intent Fast DO, Kristine A Fast DO, Kristine A Comments: Lot #[id number][employer] dltd, IMDose prefilled syringegiven by: Melly reviewed and ABN signed ELECTROCARDIOGRAM, COMPLETE (ECG) On: 28-Aug-2017 Intent (90919)By: Fast DO, Kristine A Fast Comments: ekg showed normal sinus rhythym, normal axis, no acute st/t wave changes DO, Kristine A SCREENING DIGITAL TOMOSYNTHESIS OF On: 28-Aug-2017 Intent BREAST (28490)By: Fast DO, Kristine A Fast DO, Kristine A B 12 Injection, 1000 mcg (J3420)By: On: 15-Mar-2017 Intent Visit, Nurse Comments: [id number]/ANOOP Almodovar B 12 Injection, 1000 mcg (J3420)By: On: 22-Feb-2017 Intent Fast DO, Kristine A Fast DO, Kristine A Comments: lot: [id number]: 05/01site/route: L del/IMamt: 1mLVIS signed when applicableRAYMUNDO Huerta Flu Vaccine (Quadrivalent) 23986Ba: On: 17-Jan-2017 Intent Fast DO, Kristine A Fast DO, Kristine A Comments: Lot #:[id number] date: 08/28/17Amount given: 0.5mlRoute: IMSite given: left deltoidGiven by: AYAD Dailey B 12 Injection, 1000 mcg (J3420)By: On: 17-Jan-2017 Intent Fast DO, Kristine A Fast DO, Kristine A Comments: Lot #:[id number] date:04/2018Amount given: 1mlRoute: IMSite given: right deltoidGiven by: AYAD Dailey B 12 Injection, 1000 mcg (J3420)By: On: 12-Dec-2016 Intent Visit, Nurse Comments: 95808/2018R arm, IM1ml, 1000mcgML, 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 BLOCK BOILER RELINER B 12 Injection, 1000 mcg (J3420)By: On: 20-Oct-2016 Intent Fast DO, Kristine A Fast DO, Kristine A Doppler Ultrasound OtherBy: Fast On: 14-Sep-2016 Intent DO, Kristine A Fast DO, Kristine A Comments: left stat B 12 Injection, 1000 mcg (J3420)By: On: 14-Sep-2016 Intent Fast DO, Kristine A Fast DO, Kristine A Comments: lot [id number] exp 10/28 1 ml given lt arm B 12 Injection, 1000 mcg (J3420)By: On: 17-Aug-2016 Intent Fast DO, Kristine A Fast DO, Kristine A Comments: B12lot:[id number]:ite:lt deltroute:Imdose:1mlD.Zahracastro AYAD B 12 Injection, 1000 mcg (J3420)By: On: 19-Jul-2016 Intent Fast DO, Kristine A Fast DO, Kristine A Comments: lot: [id number]: ite/route: L del/IMamt: 1mlVIS signed when applicableRAYMUNDO Huerta B 12 Injection, 1000 mcg (J3420)By: On: 16-Jun-2016 Intent Fast DO, Kristine A Fast DO, Kristine A Comments: B12lot:6191exp:ite:lt deltroute:IMdose:1mlD.AYAD Jerez B 12 Injection, 1000 mcg (J3420)By: On: 02-May-2016 Intent Visit, Nurse Comments: 1 ml given rt arm lot [id number] exp 07/28 B 12 Injection, 1000 mcg (J3420)By: On: 05-Apr-2016 Intent Fast DO, Kristine A Fast DO, Kristine A Comments: Lot:[id number]:06/28Dose:1mlRoute:IMSite:l armGiven By:TAVON signed B 12 Injection, 1000 mcg (J3420)By: On: 04-Apr-2016 Intent Fast DO, Kristine A Fast DO, Kristine A Comments: Lot:[id number]:06/28Dose:1mlRoute:IMSite:l armGiven By:TAVON signed DEXA SCAN AXIAL SKELETON ([id number])By: On: 04-Apr-2016 Intent Fast DO, Kristine A Fast DO, Kirstine A MRI LUMBAR SPINE W/O CONTRAST On: 04-Apr-2016 Intent ([id number])By: Fast DO, Kristine A Fast DO, Kristine A B 12 Injection, 1000 mcg (J3420)By: On: 01-Mar-2016 Intent Fast DO, Kristine A Fast DO, Kristine A Comments: Lot:[id number]:07/28Dose:1mlRoute:IMSite:l arm Given By:TAVON signed B 12 Injection, 1000 mcg (J3420)By: On: 21-Jan-2016 Intent Fast DO, Kristine A Fast DO, Kristine A Comments: B12lot:6185exp:ite:lt deltroute:IMdose:1mlD.AYAD Jerez Nuclear Stress Test/Stress On: 18-Dec-2015 Intent SPECT/TreadmillBy: Fast DO, Kristine A Fast DO, Kristine A Echo CompleteBy: Fast DO, Kristine A On: 11-Dec-2015 Intent Fast DO, Kristine A ELECTROCARDIOGRAM, COMPLETE (ECG) On: 11-Dec-2015 Intent ([id number])By: Fast DO, Kristine A Fast Comments: ekg showed normal sinus rhythym, normal axis, no acute st/t wave changes DO, Kristine A B 12 Injection, 1000 mcg (J3420)By: On: 11-Dec-2015 Intent Hunter Jerez Comments: B12lot:6185exp:ite:lt deltroute:IMdose:1mlD.AYAD Jerez B 12 Injection, 1000 mcg (J3420)By: On: 05-Nov-2015 Intent Hunter Jerez Comments: B12lot:6155exp:ite:lt deltroute:ImDose:1mlD.Emick, MA B 12 Injection, 1000 mcg (J3420)By: On: 05-Oct-2015 Intent Fast DO, Kristine A Fast DO, Kristine A Comments: Lot:[id number]:07/28Dose:1mlRoute:IMSite:l armGiven By:TAVON signed B 12 Injection, 1000 mcg (J3420)By: On: 04-Sep-2015 Intent Fast DO, Kristine A Fast DO, Kristine A Comments: Lot:[id number]:07/28Dose:1mlRoute:IMSite:l arm Given By:TAVON signed B 12 Injection, 1000 mcg (J3420)By: On: 04-Aug-2015 Intent Fast DO, Kristine A Fast DO, Kristine A Comments: Lot:[id number]:07/28Dose:1mlRoute:IMSite:l armGiven By:TAVON signed B 12 Injection, 1000 mcg (J3420)By: On: 23-Jun-2015 Intent Fast DO, Kristine A Fast DO, Kristine A Comments: B12lot:5200exp:07/27site:lt deltroute:IMdose:1mlDEMICK,MA B 12 Injection, 1000 mcg (J3420)By: On: 11-May-2015 Intent Fast DO, Kristine A Fast DO, Kristine A Comments: Lot:[id number]:11/27Dose:1mlRoute:IMSite:l armGiven By:TAVON signed MAMMOGRAM, SCREENING, BOTH BREAST On: 21-Apr-2015 Intent ([id number])By: Fast DO, Kristine A Fast DO, Kristine A B 12 Injection, 1000 mcg (J3420)By: On: 21-Apr-2015 Intent Fast DO, Kristine A Fast DO, Kristine A Comments: Lot:[id number]:11/27Dose:1mlRoute:IMSite:r arm Given By:TAVON signed B 12 Injection, 1000 mcg (J3420)By: On: 16-Mar-2015 Intent Fast DO, Kristine A Fast DO, Kristine A Comments: lot: [id number]: 06/27site/route: L del/IMamt: 1mLVIS signed when applicableKylee, GLUE SPECIALTY SUPERVISOR B 12 Injection, 1000 mcg (J3420)By: On: 09-Feb-2015 Intent Fast DO, Kristine A Fast DO, Kristine A Comments: B12lot:[id number]:06/27site:lt deltoidroute:IMdose:1mlDEMICK, SMA B 12 Injection, 1000 mcg (J3420)By: On: 15-Jan-2015 Intent Hunter Jerez Comments: B 12Lot:[id number]:317site:lt deltoidroute:IMdose:.5mlDEMICK, SMA B 12 Injection, 1000 mcg (J3420)By: On: 10-Dec-2014 Intent Fast DO, Kristine A Fast DO, Kristine A Comments: lot [id number] - see ANOOP Mcallister CT - Abdomen & Pelvis (IV Contrast On: 16-Sep-2014 Intent Needed)By: Fast DO, Kristine A Fast DO, Kristine A B 12 Injection, 1000 mcg (J3420)By: On: 16-Sep-2014 Intent Fast DO, Kristine A Fast DO, Kristine A Comments: Lot:[id number]:11.16Route:IMSite:R deltoidDose: 1 mLgiven by: Carlita Ariza CMA B 12 Injection, 1000 mcg (J3420)By: On: 06-Aug-2014 Intent Fast DO, Kristine A Fast DO, Kristine A Comments: lot:[id number]:05/26route:IMdose:1MLSite:Right Deltoidgiven by: ANS B 12 Injection, 1000 mcg (J3420)By: On: 19-Jun-2014 Intent Visit, Nurse Comments: 4090a3.2016given, see ANOOP Altamirano B 12 Injection, 1000 mcg (J3420)By: On: 22-Apr-2014 Intent Slarb Silvia DAVALOS Comments: lot: [id number]: 4.16Dose: 1,000 mcgSite: l dltdLocation; IMby: Prevnar 13 ([id number])By: Fast DO, On: 24-Mar-2014 Intent Kristine A Fast DO, Kristine A Comments: lot: [id number]: 3/16site/route: L del/IMamt: 0.5mLVIS signed when applicableRAYMUNDO Huerta Ultrasound - PelvisBy: Fast DO, On: 24-Mar-2014 Intent Kristine A Fast DO, Kristine A B 12 Injection, 1000 mcg (J3420)By: On: 24-Mar-2014 Intent Fast DO, Kristine A Fast DO, Kristine A Comments: lot: [id number]: 416site/route: R del/IMamt:1mlVIS signed when applicableChelsarianne, GLUE SPECIALTY SUPERVISOR B 12 Injection, 1000 mcg (J3420)By: On: 24-Feb-2014 Intent Silvia Burton LPN Comments: lot: [id number]: 4.16Dose: 1,000 mcgSite: l dltdLocation; IMby: B 12 Injection, 1000 mcg (J3420)By: On: 22-Jan-2014 Intent Fast DO, Kristine A Fast DO, Kristine A Comments: lot [id number] 08/2015location L armroute imgiven by - msmith VIS and/or ABN signed B 12 Injection, 1000 mcg (J3420)By: On: 30-Dec-2013 Intent Fast DO, Kristine A Fast DO, Kristine A Comments: lot [id number] 05/2015location L armroute imgiven by - msmithVIS and/or ABN signed B 12 Injection, 1000 mcg (J3420)By: On: 28-Nov-2013 Intent Visit, Nurse Comments: given - see ANOOP Altamirano Radiology - Thoracic SpineBy: Fast On: 06-Nov-2013 Intent DO, Kristine A Fast DO, Kristine A Radiology - Lumbar SpineBy: Fast On: 06-Nov-2013 Intent DO, Kristine A Fast DO, Kristine A CT - Abdomen & Pelvis Stone On: 05-Nov-2013 Intent ProtocolBy: Fast DO, Kristine A Fast Comments: today DO, Kristine A EKG ([id number])By: Fast DO, Kristine A On: 05-Nov-2013 Intent Fast DO, Kristine A Comments: ekg showed normal sinus rhythym, normal axis, no acute st/t wave changes B 12 Injection, 1000 mcg (J3420)By: On: 05-Nov-2013 Intent Fast DO, Kristine A Fast DO, Kristine A Comments: Lot:[id number]:11/24Dose:1mlRoute:IMSite:l armGiven By:TAVON signed PHYSICAL THERAPY EVALUATION On: 18-Oct-2013 Intent ([id number])By: Aquiles Potts CNP SPECIMEN HANDLING/TRANSPORT On: 18-Oct-2013 Intent ([id number])By: Aquiles Potts CNP B 12 Injection, 1000 mcg (J3420)By: On: 11-Oct-2013 Intent Aquiles Potts CNP Comments: Lot:[id number]:11/2013Dose:1mlRoute:IMSite:[place] By:TAVON signed B 12 Injection, 1000 mcg (J3420)By: On: 18-Sep-2013 Intent Fast DO, Kristine A Fast DO, Kristine A B 12 Injection, 1000 mcg (J3420)By: On: 07-Aug-2013 Intent Fast DO, Kristine A Fast DO, Kristine A Comments: lot: [id number]: ite/route: L del/IMamt: 1mLVIS signed when applicableChelsea, GLUE SPECIALTY SUPERVISOR MAMMOGRAM, SCREENING, BOTH BREASTS On: 24-Jun-2013 Intent ([id number])By: Fast DO, Kristine A Fast DO, Kristine A B 12 Injection, 1000 mcg (J3420)By: On: 24-Jun-2013 Intent Fast DO, Kristine A Fast DO, Kristine A Comments: Lot:[id number]:04/28Dose:1mlRoute:IMSite:[place] By:TAVON signed B 12 Injection, 1000 mcg (J3420)By: On: 15-May-2013 Intent Visit, Nurse Comments: Lot:[id number]:01/25Dose:1mlRoute:IMSite:[place] By:TAVON signed B 12 Injection, 1000 mcg (J3420)By: On: 22-Apr-2013 Intent Fast DO, Kristine A Fast DO, Kristine A Comments: lot: [id number]: 01/25site/route: L deltoid/IMamt: 1mLVIS signed when applicableChelsea, GLUE SPECIALTY SUPERVISOR B 12 Injection, 1000 mcg (J3420)By: On: 21-Mar-2013 Intent Fast DO, Kristine A Fast DO, Kristine A Comments: see flowsheetMegan PNEUM VAC ADLT/IMUMNOSPR, SBC/INTRM On: 18-Feb-2013 Intent ([id number])By: Fast DO, Kristine A Fast Comments: Lot: [id number]: 69Tca95Frv: 0.5mlRoute: IMSite: L deltoidGiven by: ANOOP Moralez DO, Kristine A ADMINISTRATION OF PNEUMOCOCCAL On: 18-Feb-2013 Intent VACCINE ([id number])By: Fast DO, Kristine A Fast DO, Kristine A Eprescribed prescriptions On: 18-Feb-2013 Intent ([id number])By: Deanna Michelle B 12 Injection, 1000 mcg (J3420)By: On: 02-Jan-2013 Intent Deanna Michelle Comments: lot: [id number]: 10/25site/route: L deltoid/IMamt: 1mLVIS signed when applicableChelsea, GLUE SPECIALTY SUPERVISOR B 12 Injection, 1000 mcg (J3420)By: On: 26-Nov-2012 Intent Fast DO, Kristine A Fast DO, Kristine A Comments: Lot:[id number]:10/2013Dose:1mlRoute:IMSite:l armGiven By:chani Valenzuela signed B 12 Injection, 1000 mcg (J3420)By: On: 29-Oct-2012 Intent Татьяна Vera LPN Comments: 1ml - see flowsheet -Татьяна Eprescribed prescriptions On: 29-Oct-2012 Intent ([id number])By: Татьяна Vera LPN B 12 Injection, 1000 mcg (J3420)By: On: 21-Sep-2012 Intent Deanna Michelle Comments: lot: [id number]: 08/24site/route: R deltoid/IMamt: 1mLVIS signed when applicableChelsea, GLUE SPECIALTY SUPERVISOR B 12 Injection, 1000 mcg (J3420)By: On: 28-Aug-2012 Intent Fast DO, Kristine A Fast DO, Kristine A Comments: Lot #:[id number] date:mount given:1mlRoute: IMSite given: left deltoidGiven by: AYAD Dailey B 12 Injection, 1000 mcg (J3420)By: On: 23-Jul-2012 Intent Fast DO, Kristine A Fast DO, Kristine A Comments: Lot: [id number]: 02/23Amt: 1000mcg/1mlRoute: IMSite: L Deltoid per pt requestGiven by: ANOOP Moralez Ultrasound - RenalBy: Fast DO, On: 06-Jul-2012 Intent Kristine A Fast DO, Kristine A Ultrasound - PelvisBy: Fast DO, On: 06-Jul-2012 Intent Kristine A Fast DO, Kristine A CT - Abdomen & PelvisBy: Fast DO, On: 03-Jul-2012 Intent Kristine A Fast DO, Kristine A B 12 Injection, 1000 mcg (J3420)By: On: 20-Jun-2012 Intent Fast DO, Kristine A Fast DO, Kristine A Comments: lot: [id number]:02/23site/route: L deltoid/IMamt: 1ccVIS signed when applicableChelsea, GLUE SPECIALTY SUPERVISOR B 12 Injection, 1000 mcg (J3420)By: On: 09-May-2012 Intent Kylee Castellon Comments: Lot:[id number]:02/2014Dose:1mlRoute:IMSite:L armGiven By:Jameson signed VENOUS DOPPLER LOWER EXTREMITY On: 18-Apr-2012 Intent ([id number])By: Fast DO, Kristine A Fast DO, Kristine A Radiology - Hip - RightBy: Fast DO, On: 06-Apr-2012 Intent Kristine A Fast DO, Kristine A Comments: call results B 12 Injection, 1000 mcg (J3420)By: On: 06-Apr-2012 Intent Lisandra Chilel Comments: Lot #[id number]-94/14Site-left deltoidDose-1 mlgiven by: Omkar Rivera LPN Eprescribed prescriptions On: 06-Apr-2012 Intent ([id number])By: Lisandra Chilel Inhaler Demo ([id number])By: Fast DO, On: 06-Feb-2012 Intent Kristine A Fast DO, Kristine A B 12 Injection, 1000 mcg (J3420)By: On: 06-Feb-2012 Intent Kylee Castellon Comments: Lot:[id number]:Dose:1mlRoute:IMSite:L armGiven By:TAVON signed MAMMOGRAM, SCREENING, BOTH BREASTS On: 06-Feb-2012 Intent ([id number])By: Fast DO, Kristine A Fast DO, Kristine A Eprescribed prescriptions On: 06-Feb-2012 Intent ([id number])By: Lisandra Chilel B 12 Injection, 1000 mcg (J3420)By: On: 02-Dec-2011 Intent Chani Carreon LPN Comments: Lot: [id number]: mt: 1ml/1000 mcgRoute: IMSite: L deltoidGiven by: ANOOP Moralez Breast Ultrasound - LeftBy: Fast On: 04-Nov-2011 Intent DO, Kristine A Fast DO, Kristine A B 12 Injection, 1000 mcg (J3420)By: On: 31-Oct-2011 Intent Chani Carreon LPN Comments: Lot: [id number]: Febmt: 1ml/1000mcgRoute: IMSite: L deltoid per pt requestGiven by: ANOOP Moralez B 12 Injection, 1000 mcg (J3420)By: On: 28-Sep-2011 Intent Yasmeen Rivera LPN Comments: Lot #[id number]-11/13Site-right deltoidDose-1 mlgiven by: Omkar Rivera LPN B 12 Injection, 1000 mcg (J3420)By: On: 05-Sep-2011 Intent Yasmeen Rivera LPN Comments: Lot #[id number]-11/13Site-left deltoidDose-1 mlgiven by: Omkar Rivera LPN Breast Ultrasound - LeftBy: Fast On: 15-Aug-2011 Intent DO, Kristine A Fast DO, Kristine A Comments: 6-8 weeks Breast Diagnostic - LeftBy: Fast On: 15-Aug-2011 Intent DO, Kristine A Fast DO, Kristine A Comments: 6-8 weeks INJECTION, VITAMIN B-12 On: 29-Jul-2011 Intent CYANOCOBALAMIN, UP TO 1000 MCG (Special Coverage Instructions Apply. See CIM: 45-4 and MCM: 2049) (J3420)By: Licha Almaguer LPN Breast Ultrasound - LeftBy: Ciesa On: 22-Jun-2011 Intent Aquiles DEWEY E B 12 Injection, 1000 mcg (J3420)By: On: 22-Jun-2011 Intent Ciesa ZULEIMA Judy Comments: Lot #[id number]-01/23Site-right deltoidDose-1 mlgiven by: Omkar Rivera LPN Breast Ultrasound - LeftBy: Comforta On: 22-Jun-2011 Intent ZULEIMA Judy Comments: today if possible Breast Diagnostic - LeftBy: Ciesa On: 22-Jun-2011 Intent Aquiles DEWEY Comments: today if possible B 12 Injection, 1000 mcg (J3420)By: On: 09-May-2011 Intent Mast Phyllis MUELLER Comments: Lot #: [id number] Expiration date: 10/23Amount given: 1 mlRoute: IMSite given: left deltoidGiven by: AMI Alcarazchairman & chief executive officer - Cervical SpineBy: Fast On: 13-Apr-2011 Intent DO, Kristine A Fast DO, Kristine A TD Injection , IM ([id number])By: On: 13-Apr-2011 Intent Lisandra Chilel Comments: received in 2005 B 12 Injection, 1000 mcg (J3420)By: On: 29-Mar-2011 Intent Kateryna Lunsford MD Comments: Lot #[id number]-8.13Site-Left arm, IMDose 0.5mlgiven by:Татьяна B 12 Injection, 1000 mcg (J3420)By: On: 08-Feb-2011 Intent Татьяна Vera LPN Comments: Lot 1377#Exp-7.13Site-R arm, IMDose 1mlgiven by:Татьяна DXA, BONE DENSITY, AXIAL SKELETON On: 24-Jan-2011 Intent ([id number])By: Lisandra Chiell Comments: post menopausal wihtout estrogen FLU VAC, SPLIT, >3 YEARS, INTRAMUSC On: 24-Jan-2011 Intent ([id number])By: Lisandra Chilel Comments: received at [facility] B 12 Injection, 1000 mcg (J3420)By: On: 21-Dec-2010 Intent Licha Almaguer LPN INJECTION, VITAMIN B-12 On: 19-Nov-2010 Intent CYANOCOBALAMIN, UP TO 1000 MCG Comments: Lot:1096Exp:04/25Amt:1mlRoute:IMSite:left deltGiven By: ANOOP Sotelo (Special Coverage Instructions Apply. See CIM: 45-4 and MCM: 9) (J3420)By: Vi Ramirez EKG ([id number])By: Lisandra Chilel On: 05-Nov-2010 Intent Comments: ekg showed normal sinus rhythym, normal axis, no acute st/t wave changes MAMMOGRAM, SCREENING, BOTH BREASTS On: 05-Nov-2010 Intent ([id number])By: Fast DO, Kristine A Fast DO, Kristine A B 12 Injection, 1000 mcg (J3420)By: On: 22-Oct-2010 Intent Mast RN, Phyllis B 12 Injection, 1000 mcg (J3420)By: On: 24-Sep-2010 Intent Fast DO, Kristine A Fast DO, Kristine A Comments: Lot #1224Exp-05/23Site-Right Arm, IMDose 1mlgiven by: B 12 Injection, 1000 mcg (J3420)By: On: 10-Aug-2010 Intent Vi Ramirez Comments: Lot:[id number]:mt:1 mlRoute:IMSite:left deltGiven By: ANOOP Sotelo B 12 Injection, 1000 mcg (J3420)By: On: 07-Jul-2010 Intent Lisandra Chilel Comments: Lot:[id number]:01/22Amt:1 mlRoute:IM Site:left deltGiven By: ANOOP Sotelo LE Arterial Exam with TreadmillBy: On: 07-Jul-2010 Intent Fast DO, Kristine A Fast DO, Kristine A B 12 Injection, 1000 mcg (J3420)By: On: 03-Jun-2010 Intent Yasmeen Rivera LPN Comments: Lot #[id number]/12Site-left deltoidDose-1 mlgiven by:[facility] IMMUNIZ ADMNIN, 1 VAC, SNGL/COMBO On: 19-Apr-2010 Intent ([id number])By: Yasmeen Rivera LPN Comments: Lot #[id number]-1/28/02Site-left deltoidDose- 0.85mlgiven by:[facility] ZOSTER VACC, [place] ([id number])By: Miguel On: 19-Apr-2010 Intent Yasmeen DAVALOS B 12 Injection, 1000 mcg (J3420)By: On: 19-Apr-2010 Intent Yasmeen Rivera LPN B 12 Injection, 1000 mcg (J3420)By: On: 22-Mar-2010 Intent Chuy DAVALOS Татьяна Enoch Comments: Lot #[id number]-/12Site-L arm, IMDose 1mlgiven by:Yasmeen MALDONADO, VITAMIN B-12 On: 25-Feb-2010 Intent CYANOCOBALAMIN, UP TO 1000 MCG Comments: injection given in left deltoid. Lot # [id number]. 1ml. Pt tolerated well. hh (Special Coverage Instructions Apply. See CIM: 45-4 and MCM: 2049) (J3420)By: Shania Rosario B 12 Injection, 1000 mcg (J3420)By: On: 25-Jan-2010 Intent Yasmeen Rivera LPN Comments: Lot #[id number]-5/12Site-left deltoidDose-1 mlgiven by:[facility] FLU VAC, SPLIT, >3 YEARS, INTRAMUSC On: 30-Dec-2009 Intent (58811)By: Lisandra Chilel Comments: Lot #[id number]-8/11Site-left deltoidgiven by:PRICE B 12 Injection, 1000 mcg (J3420)By: On: 30-Dec-2009 Intent Lisandra Chilel Comments: Lot #[id number]-5/12Site-right deltoidDose-1 mlgiven by:PRICE Renal Duplex ScanBy: Fast DO, Kristine On: 30-Dec-2009 Intent A Fast DO, Kristine A IMMUNIZ ADMNIN, 1 VAC, SNGL/COMBO On: 30-Dec-2009 Intent ([id number])By: Lisandra Chilel B 12 Injection, 1000 mcg (J3420)By: On: 14-Dec-2009 Intent Shayna Harris Comments: Lot:[id number]:5/12Dose:1000mcg/1mlRoute:IMSite:right deltoid Given by: AYAD Gil B 12 Injection, 1000 mcg (J3420)By: On: 26-Nov-2009 Intent Mast Phyllis MUELLER Comments: documented in flowsheet B 12 Injection, 1000 mcg (J3420)By: On: 19-Oct-2009 Intent Yasmeen Rivera LPN Comments: Lot #[id number]-04/24Site-left deltoidDose-1 mlgiven by:[facility] B 12 Injection, 1000 mcg (J3420)By: On: 13-Oct-2009 Intent Shayna Harris Comments: Lot:[id number]:04/24Dose:1000mcg/1mlRoute:imSite:right sideGiven by: AYAD Gil B 12 Injection, 1000 mcg (J3420)By: On: 06-Oct-2009 Intent Fast DO, Kristine A Fast DO, Kristine A Comments: Lot #[id number]-04/24Site-right deltoidDose- 1 mlgiven by:[facility] MRI - BrainBy: Fast DO, Kristine A On: 06-Oct-2009 Intent Fast DO, Kristine A Comments: left arm paresthesia - rule out lacunar infarct- please do today and call me with result B 12 Injection, 1000 mcg (J3420)By: On: 01-Oct-2009 Intent Mast [address] MUELLER CT - AbdomenBy: Fast DO, Kristine A On: 05-Aug-2009 Intent Fast DO, Kristine A Comments: atten right kidney Ultrasound - GallbladderBy: Fast On: 21-Apr-2009 Intent DO, Kristine A Fast DO, Kristine A Comments: please do this week and call ressults EKG ([id number])By: Fast DO, Kristine A On: 17-Dec-2008 Intent Fast DO, Kristine A Comments: ekg showed normal sinus rhythym, normal axis, no acute st/t wave changes MAMMOGRAM, SCREENING, BOTH BREASTS On: 17-Dec-2008 Intent ([id number])By: Fast DO, Kristine A Fast DO, Kristine A MRI - Lumbar SpineBy: Fast DO, On: 17-Dec-2008 Intent Kristine A Fast DO, Kristine A FLU VAC, SPLIT, >3 YEARS, INTRAMUSC On: 17-Dec-2008 Intent ([id number])By: Lisandra Chilel Comments: Lot #:[id number] date:mount given:0.5mlRoute: IMSite given:left deltoidGiven by: AYAD Dailey ADMINISTRATION OF INFLUENZA VIRUS On: 17-Dec-2008 Intent VACCINE ([id number])By: Lisandra Chilel CT - Abdomen & Pelvis Stone On: 18-Aug-2008 Intent ProtocolBy: Kristine Davis DO A Antwan Comments: stat -call results Kristine MIX A Radiology - Chest- PA and LatBy: On: 24-Mar-2008 Intent Antwan MIX Kristine A Antwan DO, Kristine A Spirometry ([id number])By: Antwan MIX, On: 24-Mar-2008 Intent Kristinerafi Davis DO, Kristine A Comments: good effort and curve minimal decrease small airways ADMINISTRATION OF PNEUMOCOCCAL On: 17-Dec-2007 Intent VACCINE (G0009)By: Kristine Davis DO A Antwan MIX Kristine A PNEUM VAC ADLT/IMUMNOSPR, SBC/INTRM On: 18-Dec-2007 Intent ([id number])By: Kristine Davis DO Comments: Lot #:[id number] date:08/19Amount given:0.5mlRoute: IMSite given:left deltGiven by: AYAD Dailey DO, Kristine A MAMMOGRAM, SCREENING, BOTH BREASTS On: 17-Dec-2007 Intent ([id number])By: Kristine Davis DO A Antwan Comments: end of feb , Kristine A DXA, BONE DENSITY, AXIAL SKELETON On: 31-Oct-2007 Intent ([id number])By: Kristine Davis DO DO Kristine A Echo CompleteBy: Antwan DO, Kristine A On: 25-Jul-2007 Intent Antwan DO Kristine A Bio Z ([id number])By: Antwan MIX Kristine A On: 25-Jul-2007 Intent Antwan DO Kristine A Comments: good cardiac output and no excesive gfluid EKG ([id number])By: Antwan MIX Kristine A On: 25-Jul-2007 Intent Antwan DO Kristine A Comments: ekg showed normal sinus rhythym, normal axis, no acute st/t wave changes CT - Abdomen & Pelvis (IV Contrast On: 11-Jul-2007 Intent Needed)By: Adrianna Morgan DO MAMMOGRAM, SCREENING, BOTH BREASTS On: 27-Mar-2006 Intent ([id number])By: Adrianna Morgan DO Planned Medications Vitamin B-12 1000 MCG/ML Injection Solution Ordered: 30-Dec-2009 Pending Lisandra Chilel Vitamin B-12 1000 MCG/ML Injection Solution Ordered: 21-Apr-2015 Pending Fast DO, Kristine A Fast DO, Kristine A Vitamin B-12 1000 MCG/ML Injection Solution Ordered: 16-Mar-2015 Pending Fast DO, Kristine A Fast DO, Kristine A Vitamin B-12 1000 MCG/ML Injection Solution Ordered: 09-Feb-2015 Pending Fast DO, Kristnie A Fast DO, Kristine A Vitamin B-12 1000 MCG/ML Injection Solution Ordered: 15-Jan-2015 Pending Hunter Jerez Vitamin B-12 1000 MCG/ML Injection Solution Ordered: 10-Dec-2014 Pending Fast DO, Kristine A Fast DO, Kristine A Vitamin B-12 1000 MCG/ML Injection Solution Ordered: 16-Sep-2014 Pending Fast DO, Kristine A Fast DO, Kristine A Vitamin B-12 1000 MCG/ML Injection Solution Ordered: 11-May-2015 Pending Fast DO, Kristine A Fast DO, Kristine A Vitamin B-12 1000 MCG/ML Injection Solution Ordered: 06-Aug-2014 Pending Fast DO, Kristine A Fast DO, Kristine A Vitamin B-12 1000 MCG/ML Injection Solution Ordered: 22-Apr-2014 Pending Slarb PLASTIC BLOCK BOILER RELINER, Silvia Vitamin B-12 1000 MCG/ML Injection Solution Ordered: 24-Mar-2014 Pending Fast DO, Kristine A Fast DO, Kristine A Vitamin B-12 1000 MCG/ML Injection Solution Ordered: 24-Feb-2014 Pending Slarb PLASTIC BLOCK BOILER RELINER, Silvia Vitamin B-12 1000 MCG/ML Injection Solution Ordered: 22-Jan-2014 Pending Fast DO, Kristine A Fast DO, Kristine A Vitamin B-12 1000 MCG/ML Injection Solution Ordered: 30-Dec-2013 Pending Fast DO, Kristine A Fast DO, Kristine A Vitamin B-12 1000 MCG/ML Injection Solution Ordered: 28-Nov-2013 Pending Visit, Nurse Vitamin B-12 1000 MCG/ML Injection Solution Ordered: 19-Jun-2014 Pending Visit, Nurse Vitamin B-12 1000 MCG/ML Injection Solution Ordered: 23-Jun-2015 Pending Fast DO, Kristine A Fast DO, Kristine A Vitamin B-12 1000 MCG/ML Injection Solution Ordered: 04-Aug-2015 Pending Fast DO, Kristine A Fast DO, Kristine A Vitamin B-12 1000 MCG/ML Injection Solution Ordered: 04-Sep-2015 Pending Fast DO, Kristine A Fast DO, Kristine A Vitamin B-12 1000 MCG/ML Injection Solution Ordered: 17-Jan-2017 Pending Fast DO, Kristine A Fast DO, Kristine A Vitamin B-12 1000 MCG/ML Injection Solution Ordered: 12-Dec-2016 Pending Visit, Nurse Vitamin B-12 1000 MCG/ML Injection Solution Ordered: 20-Oct-2016 Pending Fast DO, Kristine A Fast DO, Kristine A Vitamin B-12 1000 MCG/ML Injection Solution Ordered: 14-Sep-2016 Pending Fast DO, Kristine A Fast DO, Kristine A Vitamin B-12 1000 MCG/ML Injection Solution Ordered: 17-Aug-2016 Pending Fast DO, Kristine A Fast DO, Kristine A Vitamin B-12 1000 MCG/ML Injection Solution Ordered: 19-Jul-2016 Pending Fast DO, Kristine A Fast DO, Kristine A Vitamin B-12 1000 MCG/ML Injection Solution Ordered: 16-Jun-2016 Pending Fast DO, Kristine A Fast DO, Kristine A Vitamin B-12 1000 MCG/ML Injection Solution Ordered: 02-May-2016 Pending Visit, Nurse Vitamin B-12 1000 MCG/ML Injection Solution Ordered: 05-Apr-2016 Pending Fast DO, Kristine A Fast DO, Kristine A Vitamin B-12 1000 MCG/ML Injection Solution Ordered: 04-Apr-2016 Pending Fast DO, Kristine A Fast DO, Kristine A Vitamin B-12 1000 MCG/ML Injection Solution Ordered: 01-Mar-2016 Pending Fast DO, Kristine A Fast DO, Kristine A Vitamin B-12 1000 MCG/ML Injection Solution Ordered: 21-Jan-2016 Pending Fast DO, Kristine A Fast DO, Kristine A Vitamin B-12 1000 MCG/ML Injection Solution Ordered: 11-Dec-2015 Pending [place], [place] Vitamin B-12 1000 MCG/ML Injection Solution Ordered: 05-Nov-2015 Pending Emick, [place] Vitamin B-12 1000 MCG/ML Injection Solution Ordered: 05-Oct-2015 Pending Fast DO, Kristine A Fast DO, Kristine A Vitamin B-12 1000 MCG/ML Injection Solution Ordered: 05-Nov-2013 Pending Fast DO, Kristine A Fast DO, Kristine A Vitamin B-12 1000 MCG/ML Injection Solution Ordered: 11-Oct-2013 Pending Aquiles Potts CNP Vitamin B-12 1000 MCG/ML Injection Solution Ordered: 18-Sep-2013 Pending Fast DO, Kristine A Fast DO, Kristine A Vitamin B-12 1000 MCG/ML Injection Solution Ordered: 07-Aug-2013 Pending Fast DO, Kristine A Fast DO, Kristine A Vitamin B-12 1000 MCG/ML Injection Solution Ordered: 22-Jun-2011 Pending Aquiles Potts CNP E Vitamin B-12 1000 MCG/ML Injection Solution Ordered: 09-May-2011 Pending Phyllis Escobar RN Vitamin B-12 1000 MCG/ML Injection Solution Ordered: 29-Mar-2011 Pending Kateryna Lunsford MD Vitamin B-12 1000 MCG/ML Injection Solution Ordered: 08-Feb-2011 Pending Татьяна Vera LPN Vitamin B-12 1000 MCG/ML Injection Solution Ordered: 21-Dec-2010 Pending Licha Almaguer LPN Vitamin B-12 1000 MCG/ML Injection Solution Ordered: 19-Nov-2010 Pending Vi Ramirez Vitamin B-12 1000 MCG/ML Injection Solution Ordered: 22-Oct-2010 Pending Phyllis Escobar RN Vitamin B-12 1000 MCG/ML Injection Solution Ordered: 24-Sep-2010 Pending Fast DO, Kristine A Fast DO, Kristine A Vitamin B-12 1000 MCG/ML Injection Solution Ordered: 10-Aug-2010 Pending Vi Ramirez Vitamin B-12 1000 MCG/ML Injection Solution Ordered: 07-Jul-2010 Pending Lisandra Chilel Vitamin B-12 1000 MCG/ML Injection Solution Ordered: 03-Jun-2010 Pending Miguel DAVALOS, Yasmeen Vitamin B-12 1000 MCG/ML Injection Solution Ordered: 19-Apr-2010 Pending Radhauskelly LIANGN, Yasmeen Vitamin B-12 1000 MCG/ML Injection Solution Ordered: 22-Mar-2010 Pending Mike Vera LPNn L Vitamin B-12 1000 MCG/ML Injection Solution Ordered: 25-Feb-2010 Pending Shania Rosario Vitamin B-12 1000 MCG/ML Injection Solution Ordered: 25-Jan-2010 Pending Miguel LIANGN, Yasmeen Vitamin B-12 1000 MCG/ML Injection Solution Ordered: 29-Jul-2011 Pending Tk Almaguer LPNsie Vitamin B-12 1000 MCG/ML Injection Solution Ordered: 22-Feb-2017 Pending Fast DO, Kristine A Fast DO, Kristine A Vitamin B-12 1000 MCG/ML Injection Solution Ordered: 05-Sep-2011 Pending Yasmeen Rivera LPN Vitamin B-12 1000 MCG/ML Injection Solution Ordered: 31-Oct-2011 Pending Lauri DAVALOS, Chani Vitamin B-12 1000 MCG/ML Injection Solution Ordered: 24-Jun-2013 Pending Fast DO, Kristine A Fast DO, Kristine A Vitamin B-12 1000 MCG/ML Injection Solution Ordered: 15-May-2013 Pending Nurse Glory Vitamin B-12 1000 MCG/ML Injection Solution Ordered: 22-Apr-2013 Pending Fast DO, Kristine A Fast DO, Kristine A Vitamin B-12 1000 MCG/ML Injection Solution Ordered: 21-Mar-2013 Pending Fast DO, Kristine A Fast DO, Kristine A Vitamin B-12 1000 MCG/ML Injection Solution Ordered: 02-Jan-2013 Pending Trupti Michellesea Vitamin B-12 1000 MCG/ML Injection Solution Ordered: 26-Nov-2012 Pending Fast DO, Kristine A Fast DO, Kristine A Vitamin B-12 1000 MCG/ML Injection Solution Ordered: 29-Oct-2012 Pending Татьяна Vera LPN Vitamin B-12 1000 MCG/ML Injection Solution Ordered: 21-Sep-2012 Pending Viviana Deanna Vitamin B-12 1000 MCG/ML Injection Solution Ordered: 28-Aug-2012 Pending Fast DO, Kristine A Fast DO, Kristine A Vitamin B-12 1000 MCG/ML Injection Solution Ordered: 23-Jul-2012 Pending Fast DO, Kristine A Fast DO, Kristine A Vitamin B-12 1000 MCG/ML Injection Solution Ordered: 20-Jun-2012 Pending Fast DO, Kristine A Fast DO, Kristine A Vitamin B-12 1000 MCG/ML Injection Solution Ordered: 09-May-2012 Pending Kylee Castellon Vitamin B-12 1000 MCG/ML Injection Solution Ordered: 06-Apr-2012 Pending Lisandra Chilel Vitamin B-12 1000 MCG/ML Injection Solution Ordered: 06-Feb-2012 Pending Kylee Castellon Vitamin B-12 1000 MCG/ML Injection Solution Ordered: 02-Dec-2011 Pending Lauri DAVALOS, Chani Vitamin B-12 1000 MCG/ML Injection Solution Ordered: 28-Sep-2011 Pending Miguel DAVALOS Yasmeen Vitamin B-12 1000 MCG/ML Injection Solution Ordered: 15-Mar-2017 Pending Visit, Nurse Instructions Name Dates Details Essential hypertension : How to access health information online Indication: Essential hypertension Essential hypertension : How to access health information online - Detail Indication: Essential hypertension Essential hypertension : Patient Instructions Indication: Essential hypertension BMI 37.0-37.9, adult : How to access health information online Indication: BMI 37.0-37.9, adult BMI 37.0-37.9, adult : How to access health information online - Detail Indication: BMI 37.0-37.9, adult BMI 37.0-37.9, adult : Patient Instructions Indication: BMI 37.0-37.9, adult Nonsmoker : How to access health information online Indication: Nonsmoker Nonsmoker : How to access health information online - Detail Indication: Nonsmoker Nonsmoker : Patient Instructions Indication: Nonsmoker Essential hypertension : How to access health information online Indication: Essential hypertension Essential hypertension : How to access health information online - Detail Indication: Essential hypertension DEFICIENCY, B-COMPLEX NEC : How to access health information online Indication: DEFICIENCY, B-COMPLEX NEC DEFICIENCY, B-COMPLEX NEC : How to access health information online - Detail Indication: DEFICIENCY, B-COMPLEX NEC DEFICIENCY, B-COMPLEX NEC : Patient Instructions Indication: DEFICIENCY, B-COMPLEX NEC BMI 37.0-37.9, adult : How to access health information online Indication: BMI 37.0-37.9, adult BMI 37.0-37.9, adult : How to access health information online - Detail Indication: BMI 37.0-37.9, adult BMI 37.0-37.9, adult : Patient Instructions Indication: BMI 37.0-37.9, adult [facility] : How to access health information online Indication: [facility] : How to access health information online - Detail Indication: [facility] : Patient Instructions Indication: [facility] Hip pain, right : How to access health information online Indication: Hip pain, right Hip pain, right : How to access health information online - Detail Indication: Hip pain, right Hip pain, right : Patient Instructions Indication: Hip pain, right Other vitamin B12 deficiency anemia : How to access health information online Indication: Other vitamin B12 deficiency anemia Other vitamin B12 deficiency anemia : How to access health information online - Detail Indication: Other vitamin B12 deficiency anemia Other vitamin B12 deficiency anemia : Patient Instructions Indication: Other vitamin B12 deficiency anemia DEFICIENCY, B-COMPLEX NEC : How to access health information online Indication: DEFICIENCY, B-COMPLEX NEC DEFICIENCY, B-COMPLEX NEC : How to access health information online - Detail Indication: DEFICIENCY, B-COMPLEX NEC DEFICIENCY, B-COMPLEX NEC : Patient Instructions Indication: DEFICIENCY, B-COMPLEX NEC Urinary frequency : How to access health information online - Detail Indication: Urinary frequency Urinary frequency : Patient Instructions Indication: Urinary frequency Pre-operative exam (Renamed from Preoperative examination) : How to access health information online Indication: Pre-operative exam (Renamed from Preoperative examination) Pre-operative exam (Renamed from Preoperative examination) : How to access health information online - Detail Indication: Pre-operative exam (Renamed from Preoperative examination) Pre-operative exam (Renamed from Preoperative examination) : Patient Instructions Indication: Pre-operative exam (Renamed from Preoperative examination) Essential hypertension : How to access health information online Indication: Essential hypertension Essential hypertension : How to access health information online - Detail Indication: Essential hypertension Essential hypertension : Patient Instructions Indication: Essential hypertension Abdominal pain, acute, right lower quadrant : Patient Instructions Indication: Abdominal pain, acute, right lower quadrant b12 deficiency : How to access health information online Indication: b12 deficiency b12 deficiency : How to access health information online - Detail Indication: b12 deficiency b12 deficiency : Patient Instructions Indication: b12 deficiency Vitamin D deficiency, unspecified : Patient Instructions Indication: Vitamin D deficiency, unspecified Acute renal failure, unspecified acute renal failure type : How to access health information online Indication: Acute renal failure, unspecified acute renal failure type Acute renal failure, unspecified acute renal failure type : How to access health information online - Detail Indication: Acute renal failure, unspecified acute renal failure type Hypercholesterolemia : Patient Instructions Indication: Hypercholesterolemia Low Back Pain (Renamed from LBP (low back pain)) : How to access health information online Indication: Low Back Pain (Renamed from LBP (low back pain)) Low Back Pain (Renamed from LBP (low back pain)) : How to access health information online - Detail Indication: Low Back Pain (Renamed from LBP (low back pain)) Low Back Pain (Renamed from LBP (low back pain)) : Patient Instructions Indication: Low Back Pain (Renamed from LBP (low back pain)) Essential hypertension : Patient Instructions Indication: Essential hypertension Gastritis, acute : Patient Instructions Indication: Gastritis, acute Vitamin D deficiency, unspecified : Patient Instructions Indication: Vitamin D deficiency, unspecified DEFICIENCY, B-COMPLEX NEC : Patient Instructions Indication: DEFICIENCY, B-COMPLEX NEC abnormal pelvic us : Patient Instructions Indication: abnormal pelvic us right lower quadrant pain : Patient Instructions Indication: right lower quadrant pain Right groin pain : Patient Instructions Indication: Right groin pain Essential hypertension : Patient Instructions Indication: Essential hypertension Encounters Office Visit On: 15-Jan-2018 16:18 Encounter Diagnosis: Abnormal ultrasound of bladder End: 16-Jan-2018 7:27 [facility] Office Visit On: 02-Jan-2018 12:54 Encounter Reason: Follow up tests - Date: (12/20 blood work 10/02 blood flow 10/05 mammogram)., [ADDITIONAL REASON] Follow up for chronic medical issues - The patient feels well with no complaints End: 02-Jan-2018 22:04 (would like to go over recent test results), has good energy level and is sleeping well. Patient has been compliant with instructions. Current medication use: no side effects and compliant with dosing regimen. Patient sleeps 7 hours per night. Nutrition: balanced diet and supplemental vitamins. The medical issues the patient is following up for include high cholesterol and osteoarthritis. blood press ure range :. Note for Follow up for chronic medical issues: she is trying to cut back on to 3-4 times a week and using tumeric / tylenol and - more mobile on days- cleo notices a difference Encounter Diagnosis: Nonsmoker, Vitamin D deficiency, unspecified, Need for prophylactic vaccination and inoculation against influenza (Renamed from Need for immunization against influenza), Essential hypertension, Other vitamin B12 deficiency anemia, Arthralgia, Right flank pain, Osteopenia, Postmenopausal (Renamed from Postmenopausal status), Hypercholesterolemia [facility] Phone Encounter On: 16-Oct-2017 13:37 Encounter Diagnosis: Essential hypertension End: 16-Oct-2017 13:40 [facility] Phone Encounter On: 09-Oct-2017 8:52 [facility] End: 09-Oct-2017 8:53 Office Visit On: 28-Aug-2017 13:20 Encounter Reason: Physical female exam - General health: feels well with no complaints, has good energy level (better) and is sleeping well. The patient's appetite is normal. Nutrition: appropriate balanced diet. Exercis End: 15-Oct-2017 21:09 es 0 days per week. Sleeps on average 7 hours per night. Normal bowel and bladder habits. Safety measures include appropriate use of safety belts and home smoke detectors. There are no current emotional problems. 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.2), Acquired hypothyroidism, Elevated alkaline phosphatase level, Hypercholesterolemia [facility] Phone Encounter On: 13-Jun-2017 15:57 Encounter Diagnosis: DEFICIENCY, B-COMPLEX NEC (266.2) End: 13-Jun-2017 15:59 [facility] Office Visit On: 15-Mar-2017 16:10 Encounter Reason: Injections - The medication the patient is here to receive is vitamin B12 IM.Encounter Diagnosis: BMI 36.0-36.9,adult, Nonsmoker, DEFICIENCY, B-COMPLEX NEC (266.2) End: 16-Mar-2017 8:36 [facility] Office Visit On: 22-Feb-2017 13:04 Encounter Reason: Injections - The medication the patient is here to receive is vitamin B12 IM.Encounter Diagnosis: DEFICIENCY, B-COMPLEX NEC (266.2) End: 22-Feb-2017 13:07 [facility] Historical Summary On: 18-Jan-2017 9:58 Encounter Diagnosis: Essential hypertension End: 18-Jan-2017 10:01 [facility] Office Visit On: 17-Jan-2017 13:40 Encounter Reason: Follow up for chronic medical issues - The patient feels well with no complaints, has good energy level and is sleeping well. Patient has been compliant with instructions. Current medication use: no silvia End: 17-Jan-2017 22:06 e effects and compliant with dosing regimen. Patient sleeps 7 hours per night. Nutrition: balanced diet and supplemental vitamins. The medical issues the patient is following up for include high cholest dary and osteoarthritis. blood pressure range :. Note for Follow up for chronic medical issues: had knee surgery and doing well but having issues with back and legs we reviewed her mri again and told her severe spinal stenosis disc disease foraminal stenosis- she denies weakness numbness or loss of bowel or bladder control - we discussed if any of those sx need to know right away as surgical emergen cy- her bp is good no gerd did have egd and has hiatal hernia- she doing therapy for leg and back but told her she needs to get surgical opinion if not improve, [ADDITIONAL REASON] Follow up, Laboratory Test Results - Date: (01/2017). Encounter Diagnosis: Osteoarthritis, unspecified osteoarthritis type, unspecified site, DEFICIENCY, B-COMPLEX NEC (266.2), Low Back Pain (Renamed from LBP (low back pain)), Essential hypertension, Vitamin D deficiency, unspecified, Need for prophylactic vaccination and inoculation against influenza, BMI 36.0-36.9,adult, Nonsmoker, Acquired hypothyroidism, Hypercholesterolemia [facility] Office Visit On: 12-Dec-2016 9:10 Encounter Reason: Injections - The medication the patient is here to receive is vitamin B12 IM.Encounter Diagnosis: DEFICIENCY, B-COMPLEX NEC (266.2) End: 12-Dec-2016 9:50 [facility] Phone Encounter On: 21-Oct-2016 14:13 Encounter Diagnosis: Acquired hypothyroidism End: 21-Oct-2016 14:21 [facility] Office Visit On: 20-Oct-2016 10:02 Encounter Reason: Injections - The medication the patient is here to receive is vitamin B12 IM.Encounter Diagnosis: DEFICIENCY, B-COMPLEX NEC (266.2) End: 20-Oct-2016 20:38 [facility] Office Visit On: 14-Sep-2016 14:29 Encounter Reason: Follow up for chronic medical issues - The patient feels well with no complaints, has good energy level and is sleeping well. Patient has been compliant with instructions. Current medication use: compli End: 14-Sep-2016 15:37 ant with dosing regimen. Patient sleeps 7 hours per night. Nutrition: balanced diet and supplemental vitamins. The medical issues the patient is following up for include high cholesterol and osteoarthri tis. blood pressure range :. 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), BMI 36.0-36.9,adult, Gastric reflux, Essential hypertension, Acquired hypothyroidism, Vitamin D deficiency, unspecified, Hypercholesterolemia, Left leg swelling, DEFICIENCY, B-COMPLEX NEC (266.2) [facility] Office Visit On: 17-Aug-2016 13:55 Encounter Reason: Nurse procedure visit - The symptoms have been associated with other (B12).Encounter Diagnosis: DEFICIENCY, B-COMPLEX NEC (266.2) End: 17-Aug-2016 14:09 [facility] Office Visit On: 19-Jul-2016 14:33 Encounter Reason: Injections - The medication the patient is here to receive is vitamin B12 IM.Encounter Diagnosis: DEFICIENCY, B-COMPLEX NEC (266.2), Essential hypertension End: 19-Jul-2016 14:42 [facility] Office Visit On: 16-Jun-2016 14:45 Encounter Diagnosis: Other vitamin B12 deficiency anemia End: 17-Jun-2016 7:08 [facility] Office Visit On: 04-May-2016 10:27 Encounter Reason: Follow up tests - Diagnostic tests include MRI (spine) and other (labs and bone density). Date: (04/12/16 - 05/02/16). Follow up visit with no current symptoms. Note for Discuss procedure results: Saw D End: 05-May-2016 21:15 r Jesus(ortho) he said monitor back and get left knee taken care of - referred to accupuncture doctor- mother had spinal fusion x3 and brother needs- she has no weak no numb no loss of bowel or bladder controlEncounter Diagnosis: BMI 37.0- 37.9, adult , Nonsmoker, Acquired hypothyroidism, Spinal stenosis, multilevel, Urinary frequency [facility] Office Visit On: 02-May-2016 8:32 Encounter Reason: Injections - The medication the patient is here to receive is vitamin B12 IM.Encounter Diagnosis: Other vitamin B12 deficiency anemia End: 02-May-2016 8:42 [facility] Office Visit On: 04-Apr-2016 13:25 Encounter Reason: Physical female exam - General health: feels well with no complaints, has good energy level and is sleeping well. The patient's appetite is normal. Nutrition: appropriate balanced diet. Exercises 0 days End: 17-Apr-2016 22:47 per week. Sleeps on average 7 hours per night. Normal bowel and bladder habits. Safety measures include appropriate use of safety belts and home smoke detectors. There are no current emotional problems . Note for Physical exam: [facility]- her hip bursitis better can lay on that side- but right lower abd an issue- - not with sitting not with laying- only with walking- and now using walk er- pt not help the pain with walking=- mobic not help as much as daypro- no gi upset- no weak o r numb inleg- bp running bit higher likely from the daypro- she basically not exercise since dec 2014- du e to joint issues- she used to do a lot of walking Encounter Diagnosis: [facility], Nonsmoker, BMI 37.0-37.9, adult, Hip pain, right, Postmenopausal (Renamed from Postmenopausal status), Acquired hypothyroidism, Prolonged QT interval, Other vitamin B12 deficiency anemia, Hypercholesterolemia, DEFICIENCY, B-COMPLEX NEC (266.2) [facility] Office Visit On: 02-Mar-2016 15:49 Encounter Reason: Hip Problem - Symptoms include hip problem, while symptoms do not include fever or chills. The symptoms are located in the right hip. The patient describes the hip problem as hip pain and decreased rang End: 03-Mar-2016 22:05 e of motion. Onset was sudden 2 week(s) ago. The symptoms occur constantly. The patient describes symptoms as moderate in severity and worsening. Symptoms are exacerbated by squatting, weight bearing an d walking. Associated symptoms do not include low back pain, numbness in the leg or weakness of the leg. The patient is not currently being treated for this problem. Note for Hip problem: had a stress test couple months ago- and walked and flared up hip that had replaced- saw Dr Stokes partner and gave her daypro in place of mobic and didnt help-sitting not big prob but cant lay on right side- and h franklin to turn over- no flank issue now- - alright when standing and worse with steps- hard to get out of chair- left knee scheduled to be replaced - they did xray right hip and per patient surgeon said looked goodEncounter Diagnosis: Hip pain, right, Nonsmoker, BMI 37.0-37.9, adult [facility] Office Visit On: 01-Mar-2016 12:01 Encounter Reason: Injections - The medication the patient is here to receive is vitamin B12 IM.Encounter Diagnosis: DEFICIENCY, B-COMPLEX NEC (266.2) End: 01-Mar-2016 13:05 [facility] Office Visit On: 21-Jan-2016 11:37 Encounter Diagnosis: DEFICIENCY, B-COMPLEX NEC (266.2) End: 21-Jan-2016 20:29 [facility] Phone Encounter On: 18-Dec-2015 14:21 Encounter Diagnosis: Atypical chest pain End: 18-Dec-2015 14:24 [facility] Office Visit On: 11-Dec-2015 10:27 Encounter Reason: Follow up for chronic medical issues - The patient feels well with minor complaints (will be having other knee replaced next june and it is limiting her and possibly a kidney infection), has decreased End: 11-Dec-2015 12:42 energy level and is sleeping well. Patient has been compliant with instructions. Current medication use: compliant with dosing regimen. Patient sleeps 7 hours per night. Nutrition: balanced diet and sup plemental vitamins. The medical issues the patient is following up for include high cholesterol and osteoarthritis. blood pressure range :. Note for Follow up for chronic medical issues: getting corti sone in left knee next week and is ultimately getting that replaced- she had right hip replacement with Dr Lee and doing pretty well- he told her had torn tendon/ligament she thinks maybe what been ca using riadating flank issue on that side- the hip not painful- done with therapy- bp is good- she havig some lateral chest and left arm twinges not pain in morning and at night- - knawing pain- - doesnt get with exertion no sweats no sob- doesnt feel much in day- - not numb in arm maybe feels different in arm on that side - comes and goes - tried changing position doesnt make differenceEncounter Diagnosis: BMI 37.0-37.9, adult, Nonsmoker, Essential hypertension, Low back pain (724.2), Urinary retention (Renamed from Retention of urine), Atypical chest pain, Vitamin D deficiency, unspecified, Other vitamin B12 deficiency anemia [facility] Office Visit On: 05-Nov-2015 10:14 Encounter Reason: Nurse procedure visit - The symptoms have been associated with other (B12).Encounter Diagnosis: DEFICIENCY, B-COMPLEX NEC (266.2) End: 05-Nov-2015 15:48 [facility] Office Visit On: 05-Oct-2015 16:09 Encounter Reason: Injections - The medication the patient is here to receive is vitamin B12 IM.Encounter Diagnosis: Other vitamin B12 deficiency anemia End: 05-Oct-2015 16:12 [facility] Office Visit On: 04-Sep-2015 13:24 Encounter Reason: Injections - The medication the patient is here to receive is vitamin B12 IM.Encounter Diagnosis: Other vitamin B12 deficiency anemia End: 07-Sep-2015 8:13 [facility] Office Visit On: 04-Aug-2015 10:53 Encounter Reason: Injections - The medication the patient is here to receive is vitamin B12 IM.Encounter Diagnosis: Other vitamin B12 deficiency anemia End: 04-Aug-2015 10:57 [facility] Office Visit On: 23-Jun-2015 15:01 Encounter Reason: Nurse procedure visit - The symptoms have been associated with other (B12).Encounter Diagnosis: DEFICIENCY, B-COMPLEX NEC (266.2) End: 23-Jun-2015 15:05 [facility] Office Visit On: 11-May-2015 15:17 Encounter Reason: Injections - The medication the patient is here to receive is vitamin B12 IM.Encounter Diagnosis: DEFICIENCY, B-COMPLEX NEC (266.2) End: 11-May-2015 16:43 [facility] Office Visit On: 21-Apr-2015 13:14 Encounter Reason: Follow up for chronic medical issues - The patient feels well with minor complaints (RLQ pain continues- wonders what else could be done about it?), has good energy level and is sleeping well. Patient h End: 21-Apr-2015 22:11 as been compliant with instructions. Current medication use: no side effects and compliant with dosing regimen. Patient sleeps 6 hours per night. Nutrition: balanced diet, no supplemental vitamins & iron and low salt diet. 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 Note for Follow up for chronic medical issues: - she still right lower abd pain - had hip injection and 2 back injections to try to see if helped - the back inje ctions didnt help- and had ct of abd colonsocopy and pelvic us- hurts to lay in bed and roll over- dull pain when laying in bed- hurts more when moving and sitting- when stands up feels like shock- once walking doesnt get better the pain and cant walk far- she not sure when got hip injection if took abd pain away or not- Encounter Diagnosis: DEFICIENCY, B- COMPLEX NEC (266.2), Encounter for screening mammogram for breast cancer (Renamed from Encounter for screening mammogram for malignant neoplasm of breast), Vitamin D deficiency, unspecified, Right flank pain, Essential hypertension, Hypercholesterolemia [facility] Office Visit On: 16-Mar-2015 16:18 Encounter Reason: Injections - The medication the patient is here to receive is vitamin B12 IM.Encounter Diagnosis: Other vitamin B12 deficiency anemia End: 16-Mar-2015 16:22 [facility] Lab Order On: 25-Feb-2015 13:22 Encounter Diagnosis: Urinary frequency End: 25-Feb-2015 13:25 [facility] Office Visit On: 09-Feb-2015 13:54 Encounter Reason: UTI - The urinary symptoms are described as urgency, flank pain and retention. The symptoms have been occurring for 1 week and have been ??increasing. The urine is described as purulent. The symptoms kowalski End: 09-Feb-2015 22:17 ve been associated with low back pain, while the symptoms have not been associated with fever, abdominal pain, chills, nausea or vomiting. Note for Infection: took cipro before and did ok ??Encounter Diagnosis: BMI 35.0-35.9,adult, DEFICIENCY, B-COMPLEX NEC (266.2), Urinary frequency [facility] Office Visit On: 15-Jan-2015 13:02 Encounter Diagnosis: Unspecified Diagnosis End: 20-Jan-2015 16:27 [facility] Phone Encounter On: 17-Dec-2014 17:54 Encounter Diagnosis: Urinary frequency, VITAMIN D DEFICIENCY, NOS (268.9) End: 17-Dec-2014 17:57 [facility] Visit On: 10-Dec-2014 10:09 Encounter Reason: Preoperative evaluation - The patient feels well with no complaints, has good energy level and is sleeping well. Surgical procedures include: other (left total knee replacement ). Date of procedure: (10 End: 10-Dec-2014 21:34 /19/15 at [facility] [place] with dr Mahesh stokes) . There have been no problems with general anesthesia or blood/blood products. Prosthetics include: dentures (partial). Note for Preoperative evaluation: Lef t tka at [facility] on dec 29- Dr Stokes- having spinal anethesia- no anesthesia issues that she knows no hx of clot and is aware higher risk of clotting - no bleeding history- not having cp or sob- never smoked since age 20 Encounter Diagnosis: Pre-operative exam (Renamed from Preoperative examination), ANEMIA, VITAMIN B12 DEFICIENCY NEC (281.1), Hypertension (401.0), Hypothyroidism (244.9), Urinary Frequency (788.41) [facility] Office Visit On: 14-Oct-2014 9:15 Encounter Reason: Follow up for chronic medical issues - The patient feels well with no complaints, has good energy level and is sleeping well. Patient has been compliant with instructions. Current medication use: no silvia End: 14-Oct-2014 23:01 e effects and compliant with dosing regimen. Patient sleeps 6 hours per night. Nutrition: balanced diet, no supplemental vitamins & iron and low salt diet. 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 Note for Follow up for medical translator tim medical issues: Pt had colonoscopy done which was normal so now seeing pain management as Jennyfer Toussaint thought her abd pain is muscoskeletal bone.- we had thought about atypical gallbaldder associat ion- and she doesnt have any symptoms with food- -- and is there every morning and worse with walking- she seeing Dr Mckeon for pain management - she had one injection in back- didnt help- her next one wi ll be in different spot for dx - they are relooking at hip and now knee an issue so going to be dr lee- bp is good - seh feels tired but not sure if age related- she is sleeping 7 hours , [ADDITIONAL REASON] Follow up, Laboratory Test Results - Date: (09/17/14). Encounter Diagnosis: Hypertension (401.0), ANEMIA, VITAMIN B12 DEFICIENCY NEC (281.1), Hypothyroidism (244.9), Asthma,Intrinsic (493.11), VITAMIN D DEFICIENCY, NOS (268.9), Hypercholesterolemia (272.0) [facility] Office Visit On: 16-Sep-2014 12:00 Encounter Reason: Abdominal pain - The onset of the pain has been gradual and has been occurring in a persistent pattern for years. The course has been increasing. The pain is described as a moderate (to severe) stabbing End: 21-Sep-2014 22:21 and dull ache. The pain is described as being located in the right lower quadrant. The pain radiates to the right flank. The symptoms have no relieving factors. There has been no associated bloating, b loody stools, chest pain, constipation, dark urine, diarrhea, dysuria, fever, heartburn, nausea or vomiting. Note for Pain: she concerned as still there always slight- and has colosnocpy 3 weeks- and had vag us - has fibroid- saw ortho and told needs hip replacement- but another told her not and she had injection into back but didnt help right lower quad - when comes on worse it is stabbing otherwise aching- no difference with position change Encounter Diagnosis: Abdominal Pain,RLQ (789.03), ANEMIA, VITAMIN B12 DEFICIENCY NEC (281.1) [facility] Office Visit On: 06-Aug-2014 11:37 Encounter Reason: Injections - The medication the patient is here to receive is vitamin B12 IM. history: Patient is not currently .Encounter Diagnosis: b12 deficiency End: 06-Aug-2014 13:05 [facility] Office Visit On: 19-Jun-2014 13:28 Encounter Reason: InjectionsEncounter Diagnosis: b12 deficiency End: 23-Jun-2014 9:05 [facility] Office Visit On: 22-Apr-2014 9:07 Encounter Reason: Injections - The medication the patient is here to receive is vitamin B12 IM.Encounter Diagnosis: b12 deficiency End: 22-Apr-2014 9:20 [facility] Office Visit On: 24-Mar-2014 13:08 Encounter Reason: Follow up for chronic medical issues - The patient feels well with no complaints, has good energy level and is sleeping well. Patient has been compliant with instructions. Current medication use: no silvia End: 24-Mar-2014 18:57 e effects and compliant with dosing regimen. Patient sleeps 6 hours per night. Nutrition: balanced diet, no supplemental vitamins & iron and low salt diet. 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 Note for Follow up for medical translator tim medical issues: No routine labs done for todays visit. after injection for hip- she hasnt had pain since last may- thinks was from oa of hip - her bp is good and weight stable- still intermittent right pelvis pain- with cerain movments no change in bowels toldus if neg then scopeEncounter Diagnosis: VITAMIN D DEFICIENCY, NOS (268.9), Hypercholesterolemia (272.0), Hypertension (401.0), ANEMIA, VITAMIN B12 DEFICIENCY NEC (281.1), Pelvic Pain (625.9), Hypothyroidism (244.9), Need for vaccination against Streptococcus pneumoniae [facility] Visit On: 24-Feb-2014 16:59 Encounter Reason: Injections - The medication the patient is here to receive is vitamin B12 IM.Encounter Diagnosis: b12 deficiency End: 24-Feb-2014 17:08 [facility] Visit On: 22-Jan-2014 14:49 Encounter Reason: Injections - The medication the patient is here to receive is vitamin B12 IM.Encounter Diagnosis: b12 deficiency End: 22-Jan-2014 14:59 [facility] Visit On: 30-Dec-2013 16:10 Encounter Reason: Injections - The medication the patient is here to receive is vitamin B12 IM.Encounter Diagnosis: DEFICIENCY, B-COMPLEX NEC (266.2) End: 30-Dec-2013 16:24 [facility] Phone Encounter On: 02-Dec-2013 18:14 Encounter Diagnosis: Abnormal blood chemistry (790.6) End: 02-Dec-2013 18:17 [facility] Visit On: 28-Nov-2013 11:00 Encounter Reason: Injections - The medication the patient is here to receive is vitamin B12 IM.Encounter Diagnosis: DEFICIENCY, B-COMPLEX NEC (266.2) End: 28-Nov-2013 21:33 [facility] Phone Encounter On: 08-Nov-2013 9:49 Encounter Diagnosis: Unspecified Diagnosis, Cystitis,Acute (595.0) End: 08-Nov-2013 9:59 [facility] Phone Encounter On: 06-Nov-2013 16:59 Encounter Diagnosis: Kidney cyst, acquired End: 06-Nov-2013 17:00 [facility] Phone Encounter On: 06-Nov-2013 15:14 Encounter Diagnosis: Right flank pain End: 06-Nov-2013 15:17 [facility] Office Visit On: 05-Nov-2013 13:04 Encounter Reason: Follow up for chronic medical issues - The patient feels well with no complaints, has good energy level and is sleeping well. Patient has been compliant with instructions. Current medication use: no silvia End: 06-Nov-2013 21:44 e effects and compliant with dosing regimen. Patient sleeps 6 hours per night. Nutrition: balanced diet, no supplemental vitamins & iron and low salt diet. 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 Note for Follow up for medical translator tim medical issues: still having right lateral flank issues - some better with cipro not gone- hurts when moves but not as intense- has had for 2 months - aquiles did us not showing , [ADDITIONAL REASON] Follow up, Laboratory Test Results - Date: (10/29/13). Encounter Diagnosis: Hypercholesterolemia (272.0), DEFICIENCY, B-COMPLEX NEC (266.2), Hypertension (401.0), Right flank pain, Acute Renal Failure, Unspecified (584.9), Hypothyroidism (244.9) [facility] Visit On: 18-Oct-2013 12:59 Encounter Reason: Urinary problems - The onset of the urinary problems has been sudden and they have been occurring in a persistent pattern for months. The course has been increasing. The urinary problems are described a End: 18-Oct-2013 13:36 s moderate. There has been associated back pain.Encounter Diagnosis: Cystitis,Acute (595.0), Back pain, Kidney cyst, acquired [facility] Visit On: 11-Oct-2013 11:22 Encounter Reason: Follow up tests - Diagnostic tests include other. Date: (10/07/13).Encounter Diagnosis: DEFICIENCY, B-COMPLEX NEC (266.2), UTI (lower urinary tract infection) End: 11-Oct-2013 12:09 [facility] Visit On: 04-Oct-2013 11:39 Encounter Reason: Follow up acute care visit - The patient feels the same and worsening. Patient has been compliant with instructions. Current medication use: no side effects, compliant with dosing regimen and not consid End: 04-Oct-2013 12:08 ered effective by patient. The medical issues the patient is following up for include All identified problems below and UTI.Encounter Diagnosis: Low Back Pain (Renamed from LBP (low back pain)), UTI (lower urinary tract infection), Vaginal itching [facility] Office Visit On: 23-Sep-2013 13:06 Encounter Reason: Back pain - The onset of the pain has been gradual and has been occurring in a persistent pattern for weeks. The course has been increasing. The pain is characterized as a dull ache. The pain is describ End: 23-Sep-2013 22:56 ed as being located in the lower back and lumbar area. The pain does not radiate. There are no precipitating factors. The symptoms have no relieving factors. There has been no associated abdominal pain, dysuria, fever, hip pain, incontinence of stool, incontinence of urine or trauma. Note for Pain: noleg pain or weakness or nubmnessEncounter Diagnosis: Low Back Pain (Renamed from LBP (low back pain)) [facility] Office Visit On: 18-Sep-2013 14:35 Encounter Reason: Injections - The medication the patient is here to receive is vitamin B12 IM. history: Patient is not currently .Encounter Diagnosis: DEFICIENCY, B-COMPLEX NEC (266.2) End: 18-Sep-2013 14:46 [facility] Office Visit On: 07-Aug-2013 12:55 Encounter Reason: Injections - The medication the patient is here to receive is vitamin B12 IM.Encounter Diagnosis: DEFICIENCY, B-COMPLEX NEC (266.2) End: 07-Aug-2013 14:26 [facility] Visit On: 24-Jun-2013 13:07 Encounter Reason: Follow up for chronic medical issues - The patient feels well with no complaints, has good energy level and is sleeping well. Patient has been compliant with instructions. Current medication use: no silvia End: 24-Jun-2013 14:01 e effects and compliant with dosing regimen. Patient sleeps 6 hours per night. Nutrition: balanced diet, no supplemental vitamins & iron and low salt diet. 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 Note for Follow up for medical translator tim medical issues: sdhe is losing weight and trying and bp is good -no gerd or stomach issues- and also had cortisone shot in groin for hip arthritis and that has helped- eventually will need hip replacement- - , [ADDITIONAL REASON] Follow up, Laboratory Test Results - Date: (06/17/13). Encounter Diagnosis: Hypertension (401.0), screening , DEFICIENCY, B-COMPLEX NEC (266.2), Hypothyroidism (244.9), Hypercholesterolemia (272.0), Asthma,Intrinsic (493.11), VITAMIN D DEFICIENCY, NOS (268.9) [facility] Office Visit On: 15-May-2013 14:10 Encounter Reason: Injections - The medication the patient is here to receive is vitamin B12 IM.Encounter Diagnosis: DEFICIENCY, B-COMPLEX NEC (266.2) End: 15-May-2013 15:30 [facility] Visit On: 22-Apr-2013 15:51 Encounter Reason: Injections - The medication the patient is here to receive is vitamin B12 IM.Encounter Diagnosis: DEFICIENCY, B-COMPLEX NEC (266.2) End: 22-Apr-2013 16:30 [facility] Visit On: 21-Mar-2013 14:51 Encounter Reason: InjectionsEncounter Diagnosis: ANEMIA, VITAMIN B12 DEFICIENCY NEC (281.1) End: 21-Mar-2013 21:39 [facility] Visit On: 18-Feb-2013 12:49 Encounter Reason: Follow up for chronic medical issues - The patient feels well with no complaints, has good energy level and is sleeping well. Patient has been compliant with instructions. Current medication use: no silvia End: 18-Feb-2013 20:21 e effects and compliant with dosing regimen. Patient sleeps 6 hours per night. Nutrition: balanced diet, no supplemental vitamins & iron and low salt diet. 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 Note for Follow up for medical translator tim medical issues: feels well other than feels like post nasal drip- tried mucinex ??no help - no blood in stool or change in bowels -doesnt gvie blood so not syre why count low, [ADDITIONAL REASON] Follow up tests - Date: (02/05/13 blood work). Encounter Diagnosis: ANEMIA, VITAMIN B12 DEFICIENCY NEC (281.1), Gastritis (535.00), Hypertension (401.0), VITAMIN D DEFICIENCY, NOS (268.9), Anemia (285.9), Hypothyroidism (244.9), Hypercholesterolemia (272.0) [facility] Office Visit On: 02-Jan-2013 14:39 Encounter Reason: Injections - The medication the patient is here to receive is vitamin B12 IM.Encounter Diagnosis: DEFICIENCY, B-COMPLEX NEC (266.2) End: 02-Jan-2013 14:45 [facility] Office Visit On: 26-Nov-2012 11:51 Encounter Reason: Injections - The medication the patient is here to receive is vitamin B12 IM.Encounter Diagnosis: DEFICIENCY, B-COMPLEX NEC (266.2) End: 26-Nov-2012 12:03 [facility] Office Visit On: 13-Nov-2012 13:09 Encounter Reason: Follow up for chronic medical issues - The patient feels well with no complaints, has good energy level and is sleeping well. Patient has been compliant with instructions. Current medication use: no silvia End: 13-Nov-2012 13:43 e effects and compliant with dosing regimen. Patient sleeps 6 hours per night. Nutrition: balanced diet, no supplemental vitamins & iron and low salt diet. 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 Note for Follow up for medical translator tim medical issues: No routine labs done for today.- had d/c and was neg- had steroid shot in knee by Dr Stringer - some short term help-- groin pain gone on its own - chest pain- saw Dr morgan- had stres s test neg - no more chest pain on 80mg of omeprazole- weight down 7 pounds and trying and bp is goodEncounter Diagnosis: Hypothyroidism (244.9), Hypertension (401.0), ARTHRALGIAS 719.40, DEFICIENCY, B-COMPLEX NEC (266.2), Right groin pain (789.03) , Chest pain (786.59), Uterine mass (625.8), Acute Renal Failure, Unspecified (584.9), VITAMIN D DEFICIENCY, NOS (268.9) [facility] Office Visit On: 29-Oct-2012 14:12 Encounter Reason: Injections - The medication the patient is here to receive is vitamin B12 IM.Encounter Diagnosis: DEFICIENCY, B-COMPLEX NEC (266.2) End: 29-Oct-2012 14:17 [facility] Office Visit On: 21-Sep-2012 14:30 Encounter Reason: Injections - The medication the patient is here to receive is vitamin B12 IM.Encounter Diagnosis: DEFICIENCY, B-COMPLEX NEC (266.2) End: 24-Sep-2012 8:18 [facility] Office Visit On: 12-Sep-2012 8:11 Encounter Reason: Transition into care - The patient most recently received care from a hospital (09-07 to 09-08 for chest pain)., [ADDITIONAL REASON] Follow up hospital - Reason for ER visit: note: (chest pain and they test said I End: 12-Sep-2012 13:29 did not have a heart attack). The patient feels well with minor complaints, has good energy level and is sleeping well. Patient has been compliant with instructions. Current medication use: no side eff ects and compliant with dosing regimen. Patient sleeps 6 hours per night. Nutrition: balanced diet. Encounter Diagnosis: Chest pain (786.59) [facility] Office Visit On: 28-Aug-2012 15:09 Encounter Reason: Preoperative evaluation - The patient feels well with no complaints, has good energy level and is sleeping well. Surgical procedures include: other (D&C with Dr. Nicole). Date of procedure: ( End: 29-Aug-2012 7:59 3) . There have been no problems with general anesthesia or blood/blood products. Prosthetics include: dentures.Encounter Diagnosis: DEFICIENCY, B-COMPLEX NEC (266.2), Uterine mass (625.8), Hypothyroidism (244.9) [facility] Visit On: 23-Jul-2012 13:48 Encounter Reason: Injections - The medication the patient is here to receive is vitamin B12 IM.Encounter Diagnosis: DEFICIENCY, B-COMPLEX NEC (266.2) End: 23-Jul-2012 17:37 [facility] Visit On: 13-Jul-2012 13:33 Encounter Reason: Follow up tests - Diagnostic tests include other (labs) and ultrasound (kidney and transvaginal). Date: (07/06/12 and 07/11/12). Current symptoms include abdominal pain (continues).Encounter Diagnosis: Kidney cysts (753.10), End: 23-Jul-2012 8:29 VITAMIN D DEFICIENCY, NOS (268.9), ANEMIA, VITAMIN B12 DEFICIENCY NEC (281.1), Hypothyroidism (244.9), abnormal pelvic us, Right groin pain (789.03) [facility] Phone Encounter On: 10-Jul-2012 16:23 Encounter Diagnosis: Hypothyroidism (244.9) End: 10-Jul-2012 16:25 [facility] Phone Encounter On: 06-Jul-2012 15:29 Encounter Diagnosis: Fibroid, uterine (218.9), Kidney cysts (753.10) End: 06-Jul-2012 15:42 [facility] Phone Encounter On: 04-Jul-2012 18:15 Encounter Diagnosis: Hypertension (401.0) End: 04-Jul-2012 18:17 [facility] Lab Order On: 04-Jul-2012 12:59 Encounter Diagnosis: Hypothyroidism (244.9) End: 04-Jul-2012 13:24 [facility] Office Visit On: 03-Jul-2012 13:14 Encounter Reason: Follow up for chronic medical issues - The patient feels well with minor complaints, has good energy level and is sleeping poorly (pain in hip keeping her up). Patient has been compliant with instructio End: 03-Jul-2012 13:51 ns. Current medication use: experiencing side effects (hoarseness from advair) and compliant with dosing regimen. Patient sleeps 4 hours per night. Nutrition: balanced diet, no supplemental vitamins &am p; iron and low salt diet. 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 Note for Follow up for chronic medical issues: she saw Jessee Stringer at [facility] for her groin pain- - said her xrayok - wanted her to do pt but she saw chiropractor and accupuncture helped but now back and more in right lower quadrant- sometimes keeps her up - she is doing greeen callahan extract and doesnt feel like needs inhaler now- her bp is good- hasnt done mammo encoruageEncounter Diagnosis: Edema leg (782.3) , Hypercholesterolemia (272.0), Hypertension (401.0), ANEMIA, VITAMIN B12 DEFICIENCY NEC (281.1), VITAMIN D DEFICIENCY, NOS (268.9), Leg cramps (729.82), right lower quadrant pain [facility] Office Visit On: 20-Jun-2012 15:14 Encounter Diagnosis: DEFICIENCY, B-COMPLEX NEC (266.2) End: 20-Jun-2012 19:26 [facility] Office Visit On: 09-May-2012 13:32 Encounter Reason: Injections - The medication the patient is here to receive is vitamin B12 IM.Encounter Diagnosis: DEFICIENCY, B-COMPLEX NEC (266.2) End: 09-May-2012 13:58 [facility] Phone Encounter On: 18-Apr-2012 9:28 Encounter Diagnosis: Edema leg (782.3) End: 18-Apr-2012 9:58 [facility] Office Visit On: 06-Apr-2012 13:00 Encounter Reason: Groin Sprain/Strain - Symptoms include pain, decreased range of motion and difficulty ambulating, while symptoms do not include swelling. The pain is located in the right groin. The pain radiates to the End: 08-Apr-2012 19:52 abdomen and the right thigh. The patient describes the pain as sharp. Onset was sudden 1 week(s) ago. The symptoms occur frequently. The patient describes symptoms as moderate in severity. Associated s ymptoms include abdominal pain, while associated symptoms do not include nausea, vomiting or fever. The patient is not currently being treated for this problem. Note for Groin sprain/strain: doesnt hu rt when not doing something typically- when gets up it hurts her and radiates up into abd and down into leg- so painful cant walk- lasts 30-60- sec- doesnt remember doing anything and no new back pain- no buldging- no changein bowels -patient doesnt want pain medsEncounter Diagnosis: Right groin pain (789.03), DEFICIENCY, B-COMPLEX NEC (266.2) [facility] Phone Encounter On: 28-Mar-2012 9:47 Encounter Diagnosis: b12 deficiency End: 28-Mar-2012 9:51 [facility] Office Visit On: 06-Feb-2012 11:49 Encounter Reason: Follow up for chronic medical issues - The patient feels well with minor complaints (hoarseness from advair discus- uses it only in late fall and winter months and since started using it has noticed the End: 06-Feb-2012 13:13 hoarseness.), has good energy level and is sleeping well. Patient has been compliant with instructions. Current medication use: experiencing side effects (hoarseness from advair) and compliant with dos ing regimen. Patient sleeps 6 hours per night. Nutrition: balanced diet, no supplemental vitamins & iron and low salt diet. 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), screening, Acute Renal Failure, Unspecified (584.9), Hypercholesterolemia (272.0), DEFICIENCY, B-COMPLEX NEC (266.2), Asthma,Intrinsic (493.11) [facility] Office Visit On: 02-Dec-2011 13:26 Encounter Reason: Injections - The medication the patient is here to receive is vitamin B12 IM.Encounter Diagnosis: b12 deficiency End: 02-Dec-2011 13:41 [facility] Phone Encounter On: 04-Nov-2011 13:40 Encounter Diagnosis: Abnormal mammogram (793.80) End: 04-Nov-2011 13:44 [facility] Office Visit On: 31-Oct-2011 13:50 Encounter Reason: Injections - The medication the patient is here to receive is vitamin B12 IM.Encounter Diagnosis: b12 deficiency End: 31-Oct-2011 14:12 [facility] Office Visit On: 28-Sep-2011 14:51 Encounter Reason: Injections - The medication the patient is here to receive is vitamin B12 IM.Encounter Diagnosis: b12 deficiency End: 28-Sep-2011 15:31 [facility] Office Visit On: 05-Sep-2011 12:49 Encounter Reason: Injections - The medication the patient is here to receive is vitamin B12 IM.Encounter Diagnosis: b12 deficiency End: 05-Sep-2011 13:33 [facility] Office Visit On: 15-Aug-2011 12:57 Encounter Reason: Follow up for chronic medical issues - The patient feels well with minor complaints (pt would like her left breast re-examined post diagnostic us and mammograms back in may- Pt seen Aquiles Potts for thi End: 15-Aug-2011 22:27 s. No new lumps just wants df's opinion.), has good energy level and is sleeping well. Patient has been compliant with instructions. Current medication use: no side effects and compliant with dosing reg imen. Patient sleeps 6 hours per night. Nutrition: balanced diet, no supplemental vitamins & iron and low salt diet. 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 weight : (222). Note for Follow up for chronic medical issues: Marcela bs on paper.- doesnt feel lumps she was on trip- breast got bruised- - when she got back she saw aquiles- 3 spots on mammo- us thought was hemoatoma and suggested 4 mos followupEncounter Diagnosis: Asthma,Intrinsic (493.11), Breast Lump(611.72), ANEMIA, VITAMIN B12 DEFICIENCY NEC (281.1), Hypothyroidism (244.9), VITAMIN D DEFICIENCY, NOS (268.9), Hypercholesterolemia (272.0), Hypertension (401.0), Abnormal mammogram (793.80) [facility] Office Visit On: 29-Jul-2011 12:53 Encounter Reason: Injections - The medication the patient is here to receive is vitamin B12 IM. history: Patient is not currently .Encounter Diagnosis: DEFICIENCY, B-COMPLEX NEC (266.2) End: 29-Jul-2011 15:38 [facility] Annotation/Addendum On: 22-Jun-2011 16:59 Encounter Diagnosis: Breast Lump(611.72) End: 22-Jun-2011 17:01 [facility] Office Visit On: 22-Jun-2011 12:54 Encounter Reason: Breast Problems - Symptoms include breast tenderness, breast skin change and breast swelling. The patient complains of breast problems in the left upper outer quadrant, left lower outer quadrant and lef End: 22-Jun-2011 14:31 t lower inner quadrant. The problems are described as severe. Onset was sudden 1 month(s) ago. There is no known event that preceded symptom onset. Associated symptoms do not include fever, fatigue, malaise or swollen glands.Encounter Diagnosis: Breast Lump(611.72), DEFICIENCY, B-COMPLEX NEC (266.2) [facility] Office Visit On: 09-May-2011 13:24 Encounter Reason: Injections - The medication the patient is here to receive is vitamin B12 IM.Encounter Diagnosis: ANEMIA, VITAMIN B12 DEFICIENCY NEC (281.1) End: 09-May-2011 13:57 [facility] Office Visit On: 13-Apr-2011 13:02 Encounter Reason: Follow up for chronic medical issues - The patient feels well with minor complaints (neck pain), has good energy level and is sleeping well. Patient has been compliant with instructions. Current medicat End: 13-Apr-2011 13:45 ion use: no side effects and compliant with dosing regimen. Patient sleeps 6 hours per night. Nutrition: balanced diet, no supplemental vitamins & iron and low salt diet. 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 weight : (222 ). Note for Follow up for chronic medical issues: her bp is great with additional med without side effects - chol good and no stomach issues, [ADDITIONAL REASON] Follow up, Laboratory Test Results - Date: (04/06/11). , [ADDITIONAL REASON] Neck pain - The onset of the neck pain has been sudden following no specific incident and has been occurring in a persistent pattern for 3 months. The course has been without medina e. The neck pain is described as a moderate dull aching. The neck pain is described as being located in the below ear (right ) and sides of cervical spine. The back pain does not radiate The back pain i s aggravated by bending and twisting. The symptoms have been associated with neck stiffness, while the symptoms have not been associated with fever, trauma, headache or paresthesia of arms. Note for Ne ck pain : has started hurting 3 mos again when was sitting on bus looking right alot and difficult to turn neck- no pain in arms Encounter Diagnosis: Hypertension (401.0), Gastritis (535.00), VITAMIN D DEFICIENCY, NOS (268.9), Hypercholesterolemia (272.0), Hypothyroidism (244.9), Asthma,Intrinsic (493.11), Neck pain (723.1) [facility] Office Visit On: 29-Mar-2011 14:44 Encounter Reason: Injections - The medication the patient is here to receive is vitamin B12 IM.Encounter Diagnosis: b12 deficiency End: 29-Mar-2011 18:51 [facility] Office Visit On: 08-Feb-2011 12:53 Encounter Reason: Injections - The medication the patient is here to receive is vitamin B12 IM.Encounter Diagnosis: b12 deficiency End: 08-Feb-2011 13:17 [facility] Office Visit On: 24-Jan-2011 13:16 Encounter Reason: Well Women Exam - The patient feels well with no complaints, has good energy level and is sleeping well. Pap smear: date of last pap: (12/18). Contraceptive history: The patient is not using any method End: 24-Jan-2011 14:20 of contraception at this time. Patient does not exercise. The patient's libido is normal. The patient reports that she performs monthly self breast exam. The patient denies the use of oral contraceptive s or hormone replacement therapy. Menstruation: Last menstrual period date: (post- raquel). Note for Well Women Exam: FEELS WELL- HASNT BEEN TAKING ADDITIONAL BP MED BECUASE BPS WERENT THAT HIGHAT HOME BUT SHE WILL TAKE NOWEncounter Diagnosis: Well Woman Exam (V72.31) (Pap,Mammo,Routine Female), Irritable bowel syndrome (564.1), Need for prophylactic vaccination and inoculation against influenza (V04.81) [facility] Office Visit On: 21-Dec-2010 15:51 Encounter Diagnosis: DEFICIENCY, B-COMPLEX NEC (266.2) End: 21-Dec-2010 15:58 [facility] Nurse Visit On: 19-Nov-2010 14:52 Encounter Reason: Injections - The medication the patient is here to receive is vitamin B12 IM.Encounter Diagnosis: b12 deficiency End: 19-Nov-2010 15:15 [facility] Office Visit On: 05-Nov-2010 13:03 Encounter Reason: Follow up for chronic medical issues - The patient feels well with no complaints, has good energy level and is sleeping well. Patient has been compliant with instructions. Current medication use: no silvia End: 05-Nov-2010 13:49 e effects and compliant with dosing regimen. Patient sleeps 6 hours per night. Nutrition: balanced diet, no supplemental vitamins & iron and low salt diet. 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 weight : (222). Note for Fo llow up for chronic medical issues: rectal rash gone- and no leg pain with walking now- bps have been running 140/90 at home- she started the 2 diovan last time, [ADDITIONAL REASON] Follow up, Laboratory Test Results - Date: (11/01/10). Encounter Diagnosis: Osteoarthritis- Generalized or Localized, Involving Unspecified Site (715.90), VITAMIN D DEFICIENCY, NOS (268.9), Hypertension (401.0), Hypothyroidism (244.9), Hypercholesterolemia (272.0), b12 deficiency, screen [facility] Office Visit On: 22-Oct-2010 14:47 Encounter Reason: Injections - The medication the patient is here to receive is vitamin B12 IM.Encounter Diagnosis: DEFICIENCY, B-COMPLEX NEC (266.2) End: 24-Oct-2010 21:26 [facility] Office Visit On: 24-Sep-2010 14:46 Encounter Reason: Injections - The medication the patient is here to receive is vitamin B12 IM.Encounter Diagnosis: DEFICIENCY, B-COMPLEX NEC (266.2) End: 24-Sep-2010 15:12 [facility] Nurse Visit On: 10-Aug-2010 12:47 Encounter Reason: Injections - The medication the patient is here to receive is vitamin B12 IM.Encounter Diagnosis: b12 deficiency End: 10-Aug-2010 16:02 [facility] Office Visit On: 07-Jul-2010 13:29 Encounter Reason: Follow up for chronic medical issues - The patient feels well with no complaints, has good energy level and is sleeping well. Patient has been compliant with instructions. Current medication use: no silvia End: 07-Jul-2010 15:11 e effects and compliant with dosing regimen. Patient sleeps 6 hours per night. Nutrition: balanced diet, no supplemental vitamins & iron and low salt diet. 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 weight : (222). Note for Fo llow up for chronic medical issues: weigth down 11 pounds- and bp better tolerating diovan- - no gastritis issue, [ADDITIONAL REASON] Follow up, Laboratory Test Results - Date: (06/28/10). Encounter Diagnosis: b12 deficiency, perirectal rash, Hypothyroidism (244.9), Hypercholesterolemia (272.0), Hypertension (401.0), VITAMIN D DEFICIENCY, NOS (268.9), claudication [facility] Nurse Visit On: 03-Jun-2010 14:35 Encounter Reason: Injections - The medication the patient is here to receive is vitamin B12 IM.Encounter Diagnosis: b12 deficiency End: 03-Jun-2010 14:41 [facility] Office Visit On: 19-Apr-2010 16:53 Encounter Reason: Injections - The medication the patient is here to receive is vitamin B12 IM and shingles vaccine IM.Encounter Diagnosis: b12 deficiency, SHINGLES,NEED FOR PROPHYLACTIC VACCINATION AND INOCULATION AGAINST (V05.8) End: 19-Apr-2010 17:13 [facility] Office Visit On: 12-Apr-2010 13:41 Encounter Reason: Follow up for chronic medical issues - The patient feels well with no complaints, has good energy level and is sleeping well. Patient has been compliant with instructions. Current medication use: experi End: 12-Apr-2010 22:31 encing side effects (nocturnal leg cramps from diovan hct) and compliant with dosing regimen. Patient sleeps 6 hours per night. Nutrition: balanced diet, no supplemental vitamins & iron and low salt diet. The medical issues the patient is following up for include All identified problems below, high blood pressure, high cholesterol, hypothyroid, osteoarthritis and other (IBS< circumscribed scler oderma, leukopenia). blood pressure range : (150's/70's to 80's) and weight : (home- 225). Note for Follow up for chronic medical issues: weight down 7 pounds and trying- her b12 and vit d level were a dressed- she is only taking diovan once a day not bid so she will start doing so- stomach has been doing good with ppi , [ADDITIONAL REASON] Follow up, Laboratory Test Results - Date: (03/17/10). Encounter Diagnosis: VITAMIN D DEFICIENCY, NOS (268.9), Hypothyroidism (244.9), Hypercholesterolemia (272.0), Hypertension (401.0), DEFICIENCY, B-COMPLEX NEC (266.2), Gastritis (535.00) [facility] Office Visit On: 22-Mar-2010 16:48 Encounter Reason: Injections - The medication the patient is here to receive is vitamin B12 IM.Encounter Diagnosis: DEFICIENCY, B-COMPLEX NEC (266.2) End: 22-Mar-2010 18:27 [facility] Phone Encounter On: 09-Mar-2010 11:58 Encounter Diagnosis: VITAMIN D DEFICIENCY, NOS (268.9), b12 deficiency End: 09-Mar-2010 12:01 [facility] Office Visit On: 25-Feb-2010 14:26 Encounter Reason: Injections - The medication the patient is here to receive is other (B12).Encounter Diagnosis: DEFICIENCY, B-COMPLEX NEC (266.2) End: 25-Feb-2010 14:32 [facility] Office Visit On: 25-Jan-2010 16:22 Encounter Reason: Injections - The medication the patient is here to receive is vitamin B12 IM.Encounter Diagnosis: DEFICIENCY, B-COMPLEX NEC (266.2) End: 25-Jan-2010 16:32 [facility] Office Visit On: 30-Dec-2009 11:48 Encounter Reason: Follow up for chronic medical issues - The patient feels well with no complaints, has good energy level and is sleeping well. Patient has been compliant with instructions. Current medication use: no silvia End: 31-Dec-2009 21:56 e effects and compliant with dosing regimen. Patient sleeps 6 hours per night. Nutrition: balanced diet, no supplemental vitamins & iron and low salt diet. 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 blood pressure range : (150' s/70's to 80's) and weight : (home-230). Note for Follow up for chronic medical issues: her bps have been up and noticed foot swellign so double her diovan and swelling better but bps still high- - b1 2 and vit d high- she admits to mod caffeine not alot of salt or stress, [ADDITIONAL REASON] Follow up, Laboratory Test Results - Date: (12/24/09). Encounter Diagnosis: DEFICIENCY, B-COMPLEX NEC (266.2), Need for prophylactic vaccination and inoculation against influenza (V04.81), Osteoarthritis- Generalized or Localized, Involving Unspecified Site (715.90), VITAMIN D DEFICIENCY, NOS (268.9), Leukopenia(288.0), Lung nodule (518.89), Anemia (285.9), Hypercholesterolemia (272.0), Hypothyroidism (244.9), Hypertension (401.0) [facility] Annotation/Addendum On: 14-Dec-2009 18:17 Encounter Diagnosis: b12 deficiency, VITAMIN D DEFICIENCY, NOS (268.9) End: 14-Dec-2009 18:20 [facility] Office Visit On: 14-Dec-2009 16:24 Encounter Reason: Injections - The medication the patient is here to receive is vitamin B12 IM. Encounter Diagnosis: b12 deficiency End: 14-Dec-2009 16:52 [facility] Office Visit On: 26-Nov-2009 14:43 Encounter Reason: Injections - The medication the patient is here to receive is vitamin B12 IM. Encounter Diagnosis: Anemia (285.9) End: 26-Nov-2009 15:23 [facility] Office Visit On: 19-Oct-2009 10:17 Encounter Diagnosis: b12 deficiency End: 19-Oct-2009 10:28 [facility] Office Visit On: 13-Oct-2009 15:01 Encounter Reason: Injections - The medication the patient is here to receive is vitamin B12 IM. Encounter Diagnosis: b12 deficiency End: 13-Oct-2009 15:31 [facility] Office Visit On: 06-Oct-2009 10:44 Encounter Reason: Follow up, Diagnostic Procedure Results - Diagnostic tests include CT scan (abdomen pelvis) and X-Ray (dorsal spine- 08/19/08). Date: (09/08/09). Note for Follow up, Diagnostic Procedure Results: no caff End: 06-Oct-2009 12:00 eine this am- doesnt feel like bp elevated- past couple days pins and needles in left forearm - no weakness but has been constant for 2 days and just came on - no pain in arm- no neck pain- had kowalski for 5 days took fair amount of tylenol eventually went away- no vision change- belly has been better- levsin helps the sx if she does get it, [ADDITIONAL REASON] Follow up, Laboratory Test Results - Date: (09/30/09). Encounter Diagnosis: b12 deficiency, VITAMIN D DEFICIENCY, NOS (268.9), Hypercholesterolemia (272.0), Hypothyroidism (244.9), Hypertension (401.0), Irritable bowel syndrome (564.1), abnormal us of kidney, Parasthesia (782.0) [facility] Office Visit On: 01-Oct-2009 13:57 Encounter Reason: Injections - The medication the patient is here to receive is vitamin B12 IM. Encounter Diagnosis: Anemia (285.9) End: 02-Oct-2009 7:48 [facility] Office Visit On: 05-Aug-2009 15:09 Encounter Reason: Follow up for chronic medical issues - The patient feels well with no complaints ,has good energy level and is sleeping well. Patient has been compliant with instructions. Current medication use: no silvia End: 05-Aug-2009 15:39 e effects and compliant with dosing regimen. Patient sleeps 6 hours per night. Nutrition: balanced diet ,no supplemental vitamins & iron and low salt diet. 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 weight : (230). Note for Fo llow up for chronic medical issues: no more chest pain since off meds from [place] and bowels good - bp is good-- - had blow flow screening and was good, [ADDITIONAL REASON] Follow up, Laboratory Test Results - Date: (07/27/09). Note for Follow up, Laboratory Test Results: she did use the advair prn over the winter - -- and this helped the cough -s he doesnt need in the summer- she is checking bps and running 130 or lower-- also her back still problematic despite pt and is willing to go further with this so get mri- refer basali- joints are really st iff all day long- especially lower ext and shoulders - no synovitis or rash Encounter Diagnosis: VITAMIN D DEFICIENCY, NOS (268.9), abnormal us of kidney, Hypertension (401.0), Hypothyroidism (244.9), Hypercholesterolemia (272.0), Irritable bowel syndrome (564.1), renal insufficiency, Gastritis (535.00), Vitiligo (709.01) [facility] Historical Summary On: 21-Jul-2009 11:00 [facility] End: 21-Jul-2009 11:08 Office Visit On: 21-Apr-2009 13:52 Encounter Reason: Follow up ER - Reason for hospitalization note: (chest pains from thur). Patient has been compliant with instructions. Current medication use: no side effects and compliant with dosing regimen. The martinez End: 22-Apr-2009 8:36 ent feels well with minor complaints ,has good energy level and is sleeping well. Patient sleeps 7 hours per night. Nutrition: balanced diet. Note for Follow up ER: was watching tv- and had chest pain - pain was pressure and went down left arm- took rolaids and aspirin and wouldnt go away- felt she was sob and peaked- - her pulse was high per her - bp was 190 systolic in squad- after n itro 10 minutes later her sx were completely gone--stayed for several hours - and stayed overnight and had stress and enzymes were neg--still taking mobic but quit carafate/ omeprazole- no chest pain or sob- with exertion-that she feels but interjects he feels she gets sob easily with exertion but hasnt changed for years-she doesnt do alot of exertionEncounter Diagnosis: Chest pain (786.59), renal insufficiency, Gastritis (535.00) [facility] Office Visit On: 07-Apr-2009 15:01 Encounter Reason: Follow up for chronic medical issues - The patient feels well with no complaints ,has good energy level and is sleeping well. Patient has been compliant with instructions. Current medication use: no silvia End: 07-Apr-2009 15:51 e effects and compliant with dosing regimen. Patient sleeps 6 hours per night. Nutrition: balanced diet ,no supplemental vitamins & iron and low salt diet. 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 weight :. Note for Follow u p for chronic medical issues: she saw Nafisa and was diagnosed with inflammatory arthritis and was on pred and plaquenil- and helped alot- got h1n1- her bp is good and her cough got better with pred as well- did help her back pain and hands as well , [ADDITIONAL REASON] Follow up, Laboratory Test Results - Date: (08/18/08 and 09/10/08). Note for Follow up, Laboratory Test Results: she did use the advair prn over the winter - -- and this helped the co ugh -s he doesnt need in the summer- she is checking bps and running 130 or lower-- also her back still problematic despite pt and is willing to go further with this so get mri- refer basali- joints are really stiff all day long- especially lower ext and shoulders - no synovitis or rash Encounter Diagnosis: Hypothyroidism (244.9), Osteoarthritis- Generalized or Localized, Involving Unspecified Site (715.90), Hypercholesterolemia (272.0), Hypertension (401.0), Irritable bowel syndrome (564.1), VITAMIN D DEFICIENCY, NOS (268.9) [facility] Office Visit On: 17-Dec-2008 14:56 Encounter Reason: Follow up, Laboratory Test Results - Date: (08/18/08 and 09/10/08). Note for Follow up, Laboratory Test Results: she did use the advair prn over the winter - -- and this helped the cough -s he doesnt need End: 18-Dec-2008 7:26 in the summer- she is checking bps and running 130 or lower-- also her back still problematic despite pt and is willing to go further with this so get mri- refer basali- joints are really stiff all day long- especially lower ext and shoulders - no synovitis or rash, [ADDITIONAL REASON] Follow up, Diagnostic Procedure Results - Diagnostic tests include CT scan (abdomen pelvis- 08/18/08) and X-Ray (dorsal spine- 08/19/08). 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 The course has been constant. The flank pain is described as moderate. The quality of End: 18-Aug-2008 14:12 the flank pain is described as a dull ache and crampy. The flank pain is described as being located in the right flank. The flank pain radiates to the right lower quadrant ,left lower quadrant and back. There has been no associated chills ,cough ,diarrhea ,dysuria ,fever ,frequency ,hematuria ,history of passing a stone ,nausea ,trauma ,vaginal bleeding ,vaginal discharge or vomiting. Note for Flank pain: thiranjit is new sx- started monday- hasnt been lifting- has been laying on heating pad- no help- tried tylenol- no help-- - no pain in legs or wekness or numbness inlegs- no blood in urine- no fever-- - no dysuria or frequency Encounter Diagnosis: flank pain [facility] Office Visit On: 15-Aug-2008 14:48 Encounter Reason: UTI nurse visit - for 2 days. There has been associated back pain, while there has been no associated nausea ,frequency ,fever / chills ,dysuria ,blood in urine or abdominal pain. Encounter Diagnosis: Low back pain (724.2) End: 18-Aug-2008 6:49 [facility] Office Visit On: 24-Mar-2008 10:13 Encounter Reason: Follow up for chronic medical issues - The patient feels well with minor complaints (cough) ,has good energy level and is sleeping well. Patient has been compliant with instructions. Current medication End: 24-Mar-2008 11:13 use: no side effects and compliant with dosing regimen. Patient sleeps 7 hours per night. Nutrition: balanced diet ,supplemental vitamins and low salt diet. The medical issues the patient is following u p for include All identified problems below ,high blood pressure ,high cholesterol ,hypothyroid ,osteoarthritis and other (lung nodule, leukopenia, fatigue, anemia, IBS). blood pressure range : ([facility]- [facility] high, don't know if machine or stress of shopping). Note for Follow up for chronic medical issues: leg cramps are better-- -- with water -- bbowels are doing better with citracel-- -- her bp has be en high on the rare occ that she takes at [facility] but doesnt know accuracy, [ADDITIONAL REASON] Follow up, Laboratory Test Results - Date: (02/13/08). , [ADDITIONAL REASON] Cough - The onset of the cough has been gradual and 3 weeks ago. The cough is characterized as dry. The cough occurs all the time. The symptoms are aggravated by meals, but not by s upine posture. The symptoms have been associated with hoarseness, while the symptoms have not been associated with fever ,headache ,runny nose ,sore throat or wheezing. Note for Cough: no routine gerd - -no feel drainage- no wheeze - she used to see [facility]-- and had to take advair before-- was told had asthma-- has only used a couple times- no fever Encounter Diagnosis: Hypothyroidism (244.9), Hypercholesterolemia (272.0), Hypertension (401.0), Cough (786.2), Anemia (285.9), Lung nodule (518.89) [facility] Office Visit On: 17-Dec-2007 11:36 Encounter Reason: Well Women Exam - The patient feels well with no complaints ,has good energy level and is sleeping well. Pap smear: date of last pap: (03/19). Contraceptive history: The patient is not using any method o End: 18-Dec-2007 16:06 f contraception at this time. Patient exercises every other day. The patient's libido is normal. The patient reports that she performs monthly self breast exam. The patient denies the use of oral contraceptives or hormone replacement therapy. , [ADDITIONAL REASON] Follow up, Diagnostic Procedure Results - Diagnostic tests include other (bone density). Date: (12/11/07). 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 , [ADDITIONAL REASON] Cramping of legs - The leg cramping began gradually over time and has been occur End: 01-Nov-2007 21:46 ring for years. The symptoms have been occurring in an increasing pattern. The symptoms are described as a cramping and are severe. The symptoms occur at rest and at night. There is involvement of the l ower extremities (both). There are no precipitating factors. Aggravating factors include lying flat (stretching). Relief is provided by other (walking). There has been no associated chest pain ,dizzines s ,fatigue ,numbness and tingling in toes ,calf swelling ,cough ,fever or chills. , [ADDITIONAL REASON] Follow up for chronic medical issues - The patient feels well with minor complai nts (leg cramps at hs) ,has good energy level and is sleeping poorly (d/t leg cramps). Patient has been compliant with instructions. Current medication use: no side effects and compliant with dosing reg imen. The medical issues the patient is following up for include All identified problems below ,high blood pressure ,high cholesterol ,hypothyroid ,osteoarthritis and other (fatigue, ibs, edema, anemia, lung nodule, leukopenia). weight :. Note for Follow up for chronic medical issues: edema is gone-- she is having leg cramps in middle of night- if she does more exercise worse- at night-- she stretch es every night-- she has had for years- had quinine in past and worked- but now cant get it- try tonic-- slight elevation of alkphos- no sx- no bony pain or new meds Encounter Diagnosis: Hypothyroidism (244.9), Osteoarthritis- Generalized or Localized, Involving Unspecified Site (715.90), postmenopausal without estrogen, Hypertension (401.0), Hypercholesterolemia (272.0), edema, leg cramps, Irritable bowel syndrome (564.1) [facility] Office Visit On: 08-Aug-2007 13:52 Encounter Reason: Follow up, Laboratory Test Results - Date: (07/25/07). Note for Follow up, Laboratory Test Results: abdominal pain is better with carafate- does snore-- more than ever- she has had fatigue and-- no hea End: 13-Aug-2007 22:50 daches-- no naps during the day-- , [ADDITIONAL REASON] Follow up, Diagnostic Procedure Results - Diagnostic tests include ECHO. Date: (08/02/07). Encounter Diagnosis: Hypertension (401.0), Hypothyroidism (244.9), pericardial effusion, Abdominal Pain,LUQ (789.02), Fatigue (780.79) [facility] Office Visit On: 25-Jul-2007 10:36 Encounter Reason: Follow up Meds - The patient feels well with minor complaints. Patient has been compliant with instructions. Current medication use: experiencing side effects (thrush and joint pain). Patient sleeps 6 h End: 26-Jul-2007 14:41 ours per night. Nutrition: balanced diet. Note for Follow up Meds: pt was confused -- she keeps saying levothyroxine instead she meant levaquin-- she stopped that-- after got mouth sores and hip pain -- she was taking it for abdominal pain-- however it didnt help- pain goes from left to center to right-- she has had upper endoscopy -normal - no lower endoscopy-- but has cat scan-- her bp is also hig h- she had to be switched to diovan-- no chest pain or sob but does have some swelling in her legs-- no upper respiratory-- sx and all cancer screening done-- pain is really mid abdominal and relieved s omewhat by prilosec and suculfrate-- also librium helpsEncounter Diagnosis: Irritable bowel syndrome (564.1), Abdominal Pain,LUQ (789.02), Hypertension (401.0), Hypothyroidism (244.9), pericardial effusion, edema [facility] Historical Summary On: 11-Jul-2007 13:40 [facility] End: 11-Jul-2007 13:40 Historical Summary On: 11-Jul-2007 13:39 [facility] End: 11-Jul-2007 13:39 Office Visit On: 11-Jul-2007 11:41 Encounter Reason: Abdominal pain - The onset of the pain has been gradual and has been occurring in a persistent pattern for 3 weeks (Has had the pain on and off for the past 2yrs but for the past 3weeks it's been all th End: 11-Jul-2007 13:30 e time.). The course has been constant (on the left side and on the right it comes and goes.). The pain is described as a severe burning ,pressure sensation and fullness. The pain is described as being located in the right upper quadrant (at times.) and left upper quadrant (all the time.). The pain does not radiate. The symptoms have no aggravating factors. The symptoms have no relieving factors. 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 Patient has been compliant with instructions. Current medication use: no side effects. Patient sleeps 7 hours per night. Nutritio End: 13-Jul-2006 14:13 n: balanced diet. The medical issues the patient is following up for include All identified problems below and other (Abdominal pain). Encounter Diagnosis: Epigastric pain (789.06), Lung nodule (518.89), Abrasion or friction burn of trunk, without mention of infection (911.0) [facility] Office Visit On: 15-Jun-2006 11:01 Encounter Reason: Abdominal pain - The onset of the pain has been gradual (more intense discomfort in the past week, pt states this has been an ongoing problem for the past couple of years.) and has been occurring in a p End: 15-Jun-2006 11:55 ersistent pattern for 1 weeks (see above note). The course has been increasing. The pain is described as a moderate dull ache and pressure sensation. The pain is described as being located in the epigas trium. The pain does not radiate. The symptoms have no aggravating factors. The symptoms have no relieving factors. Encounter Diagnosis: Epigastric pain (789.06), Abdominal Pain,RUQ(789.01), Hypertension (401.0), Hypothyroidism (244.9) [facility] Office Visit On: 27-Mar-2006 13:02 Encounter Reason: Well Women Exam - The patient feels well with no complaints. Pap smear: date of last pap: (02/17/05). Contraceptive history: The patient is not using any method of contraception at this time. Patient exe End: 27-Mar-2006 13:52 rcises 3 - 4 times per week. The patient's libido is normal. The patient reports that she performs monthly self breast exam. The patient denies the use of hormone replacement therapy. Encounter Diagnosis: Well Woman Exam (V72.31) (Pap,Mammo,Routine Female), Osteoarthritis- Generalized or Localized, Involving Unspecified Site (715.90) [facility] Office Visit On: 21-Feb-2006 11:20 Encounter Reason: Follow up, Laboratory Test Results - Lab results: abnormal blood chemistry and abnormal CBC. Date: (01-16). Current symptoms/reason for visit include/s Follow up visit with no current symptoms. Past med End: 21-Feb-2006 13:54 ical history includes anemia ,elevated cholesterol ,elevated triglycerides ,hypertension and hypothyroidism. Encounter Diagnosis: Irritable bowel syndrome (564.1), Leukopenia(288.0), Hypercholesterolemia (272.0), Hypothyroidism (244.9) [facility] Historical Summary On: 24-Jan-2006 16:11 [facility] End: 24-Jan-2006 16:20 Historical Summary On: 22-Nov-2005 10:43 [facility] End: 22-Nov-2005 10:44 Payers Morenita Mooney/MedicareKAREN OBRIEN; rafi guarantor
--- OUTSIDE RECORDS SUMMARY | 2018-06-01 23:31 | XMS RPT_ITS | Continuity of Care Document ---
:1940 Author Organization [facility] Address [address] [facility] [address] [place] [address] Phone Care Team Providers Name Role Phone [...] Quantity: 90 {Tablet} Refills: 3 Ordered:22-Jan-2018 Fast DO Kristine AFjuana MIX Kristine A Start : 22-Jan-2018 Active Amoxicillin 500 MG Oral Capsule 4 caps 1 hr prior to dental work for 0 days Refills: 0 Ordered:02-Jan-2018 Fast DO, Kristine AFast DO, Kristine A Start : 02-Jan-2018 Active Clotrimazole-Betamethasone 1-0.05 % External Cream tad Cream Daily prn for 0 days Quantity: 3 {Tube} Refills: 0 Ordered:07-Mar-2018 Paul Ellis Start : 07-Mar-2018 Active Comments:PLEASE DISPENSE 3- 15GRAM TUBESPUT ON [...] days Quantity: 60 {Tablet} Refills: 0 Ordered:02-Mar-2016 DO, Kristine AFast DO, Kristine A Start : 02-Mar-2016 Active Comments:[facility] report#[id number], df approved and given to pt-[facility] 03/02/16 Imipramine HCl 25 MG Oral Tablet 1 (one) Tablet qhs prn for 0 days Quantity: 30 {Tablet} Refills: 1 Ordered:14-Jul-2017 DO, Kristine AFast DO, Kristine A Start : 14-Jul-2017 Active Comments:verbally called to [facility] - cmanchak 5/4 Leg Cramps 7 [...] cap daily (100 MG) Active Vitamin D3 89268 UNIT Oral Capsule 1 (one) Capsule once a week for 90 days Quantity: 12 {Capsule} Refills: 3 Ordered:02-Jan-2018 Kristine Davsi DO, DO, Kristine A Start : 02-Jan-2018 Active ADVAIR DISKUS, 250-50MCG/DOSE (Inhalation Aerosol Powder Breath Activated) 1 Misc QD for 90 days Quantity: 3 {Misc} Refills: 3 Ordered:03-Jul-2012 Kylee Castellon Start : 09-Jan-2012 End : 03-Jul-2012 Inactive AMOXIL, 875MG (Oral Tablet) 1 BID for 0 days Refills: 0 Ordered:21-Apr-2009 Merlyn Bedoya LPNIdiaztive ASPIRIN LOW DOSE, 81MG (Oral Tablet) 1 [...] days Quantity: 60 {Tablet} Refills: 0 Ordered:22-Jun-2011 Tripp DAVALOS Licha Start : 13-Apr-2011 End : 22-Jun-2011 Inactive Losartan Potassium 100 MG Oral Tablet 1 (one) Tablet qd for 0 days Quantity: 30 {Tablet} Refills: 6 Ordered:02-Jan-2018 Antwan Kristine MIX DO, Debra A Start : 16-Oct-2017 End : 02-Jan-2018 Inactive Omeprazole 40 MG Oral Capsule Delayed Release 1 (one) Capsule DR qd for 90 days Quantity: 90 {Capsule} Refills: 0 Ordered:10-Oct-2017 YenyiraidaDeanna Start : 10-Oct-2017 End : 08-Jan-2018 Inactive Comments:per ER PRILOSEC OTC, 20MG (Oral Tablet Delayed Release) 1 tab qd for 0 days Refills: 0 Ordered:05-Aug-2009 Lisandra ChilelInactive PROBIOTIC (Oral Tablet Delayed Release) 1 (one) Tablet DR qd 2 hours after atb for 14 days Quantity: 14 {Tablet} Refills: 0 Ordered:25-Nov-2013 Antwan Kristine DO, Kristine A Start : 08-Nov-2013 End [...] : 11-Jul-2007 End : 08-Aug-2007 Discontinued Drisdol 02814 UNIT Oral Capsule 1 (one) Capsule once [...] HS for 0 days Refills: 0 Ordered:17-Dec-2007 Fast DO, Kristine AFast DO, Kristine A Start : 17-Dec-2007 End : 17-Dec-2007 Discontinued SYNTHROID, 150MCG (Oral Tablet) 1 QD Tablet 2 Monday for 0 days Refills: 0 Ordered:15-Jun-2006 Mast RNPhyllis Start : 30-Jan-2006 End : 15-Jun-2006 Discontinued VAGIFEM, 25MCG (Vaginal Tablet) 1 2 times per week for 0 days Refills: 0 Ordered:13-Aug-2007 Lisandra Chilel End : 08-Aug-2007 Discontinued VITAMIN D, 08412UTAG (Oral Capsule) 1 cap q week (31397 UNIT) Start : 27-Mar-2013 End : 27-Mar-2013 Discontinued Comments:This order discontinued per [employer]. VITAMIN D, 54328BBBA (Oral Capsule) 1 cap Capsule q week for 90 days Quantity: 12 {Capsule} Refills: 0 Ordered:27-Mar-2013 Lisandra Chilel Start : 27-Mar-2013 End : 27-Mar-2013 Discontinued Comments:This order discontinued per [employer]. VITAMIN D3, 2000UNIT (Oral Capsule) 1 Capsule qd for 0 days Quantity: 30 {Capsule} Refills: 0 Ordered:13-Nov-2012 Fast DO, Kristine AFast DO, Kristine A Start : 13-Nov-2012 End : [...] and Bladder Result: Comments: See Note; NOTES: [facility] Imaging Services [address] [place] [address] Kidney and Bladder MR#: [id number] Acct: [id number] Name: VIRGINIA URRUTIA Rep #: [id number] : 1940 F 77 From: Doug Sinclair DO PCP: Kristine Davis DO Status: REG CLI Study: Kidney and Bladder Date of Exam: 01/11/18 Exam# [id number] Ordering Dr: rKistine Davis DO STUDY: RENAL ULTRASOUND - COMPLET [...] Doug Sinclair DO at 23:00 EDT Tel [phone], Service support , CC: Kristine Davis DO Program Counselor: Signed 11-Jan-2018 Kidney and Bladder Result: Comments: See Note; NOTES: [facility] Imaging Services [address] [place] [address] Kidney and Bladder MR#: [id number] Acct: [id number] Name: VIRGINIA URRUTIA Rep #: [id number] : 1940 F 77 From: Doug Sinclair DO PCP: Kristine Davis DO Status: REG CLI Study: Kidney and Bladder Date of Exam: 01/11/18 Exam# [id number] Ordering Dr: Kristine Davis DO ADDENDUM by Doug Sinclair DO on at 1954 ADDENDUM ADDENDUM: Comparison is made with October 07, 2013 renal ultrasound. The right re na l cystic lesions appear stable. New left renal cyst. Findings in the urinary bladder are new since the previous study. Electronically Signed: Doug Sinclair DO at 19:55 EST Tel [phone], [place] support , 01/22/181954 Date cc: Kristine Davis [...] Doug Sinclair DO at 23:00 EDT Tel [phone], Service support [phone]- [phone], CC: Kristine Davis DO Program Counselor: Signed 05-Oct-2017 TXT - Blood Flow Screening Result: Comments: See Note; NOTES: [facility] Cardiovascular Services [address] [place] [address] 10/02/17 0928 MR#: [id number] Acct: [id number] Name: VIRGINIA URRUTIA Rep #: [id number] [...] MD CC: Kristine arias DO Date Dictated: 10/02/1728 Date Transcribed: 10/05/171656 Program Counselor: Signed 02-Oct-2017 SCREENING MAMM (CAD), BILAT Result: Comments: See Note; NOTES: [facility] Imaging Services [address] [place] [address] SCREENING MAMM (CAD), BILAT MR#: [id number] Acct: [id number] Name: URRUTIAVIRGINIA J Rep #: [id number] : 1940 F 76 From: Noel Avitia MD PCP: Kristine Davis DO Status: REG CLI Study: SCREENING MAMM (CAD), BILAT Date of Exam: 10/02/17 Exam# [id number] Ordering Dr: Kristine Davis DO MAMMOGRAPHY - [...] Service support , CC: Kristine Davis DO Program Counselor: Signed 14-Sep-2016 Venous Duplex Lower Extremity Result: Comments: See Note; NOTES: [facility] Cardiovascular Services [address] [place] [address] Venous Duplex US, Unilateral 09/14/16 1558 MR#: [id number] Acct: [id number] Name: VIRGINIA YEH Rep #: [id number] : 1940 75 From: Johan Ortega MD [...] faxed competent and demonstrates normal to Dr. Nelly arias. augmentation. POP V is compressible, spontaneous, phasic, [...] DO Date Dictated: 09/14/16 1558 Date Transcribed: 09/14/16 1715 Program Counselor: Signed 23-Aug-2016 Re-Evaluation - PT (1) Result: Comments: See Note; NOTES: [facility] [address] [place] [address]. [address] [place] [address] Fax REEVALUATION / MEDICARE RECERTI MATTHIAS Zamora 4d PHYSICAL THERAPY MR#: [id number] Acct: [id number] Name: VIRGINIA URRUTIA Rep #: [id number] : 1940 75 From: Humberto Aguilar DPT, OCS, CSCS Referring DrDav: OUT OF [facility] DOCTOR Status : REG RCR [facility] Out of [facility] Doctor, It has been my pleasure to [...] do not hesitate to contact me at [phone] by phone or if you have questions or concerns regarding this new plan of care! Sincerely, Humberto Aguilar DPT, OC <Electronically signed by PACHECO Delacruz DPT, CSCS> 08/23/16 0929 CC: Kristine Davis DO; OUT [facility] DOCTOR EBG Signed For Medicare only, by signing this I certify the plan of care. Physicians Signature Date 29-Jul-2016 Inital Evaluation (1) - PT Result: Comments: See Note; NOTES: [facility] [address] [place] [address]. [address] [place] [address] Fax REHABILITATION SERVICES INITIAL EVALUATION MR#: [id number] Acct: [id number] Name: VIRGINIA URRUTIA Rep #: [id number] : 1940 75 From: Humberto Aguilar DPT, PACHECO, CSCS Referring DrDav: OUT [facility] DOCTOR Status: REG RCR Insurance: [facility] Patient's Visit Information VIRGINIA URRUTIA is a 75 year old F referred to Physical Therapy by Out [facility] Doctor with a diagnosis of L knee pain s/p L TKA. Date of Evaluation: 07/29/16 Phys ical Therapist: Humberto Aguilar DPT OC - Visit Plan Frequency: 3x /Week [...] to be FAXED BACK to us at [phone] for Medica re purposes. Please let me [...] Department Summary Result: Comments: See Note; NOTES: [facility] Records Department [address] [place] [address] Emergency Department Summary MR#: [id number] Acct: [id number] Name: VIRGINIA URRUTIA Rep #: [id number] : 1940 75 From: Byron Harris MD [...] condition. IM PRESSION: Left calf pain, acute. Byron Harris MD C C: Kristine Davis DO T: NTS JOB: [id number] 04/19/164 <Electronically signed by Byron Harris MD> Date Byron Harris MD Cosigner Signature (If Indicated): Date CC: Kirstine Davis DO Date Dictated: 04/15/16 0035 Date Transcrib ed: 04/15/16 0035 Program Counselor: Signed 15-Apr-2016 Discharge Instruction Result: Comments: See Note; NOTES: [facility] Medical Records Department [address] [place] [address] Discharge Instruction 04/14/16 2307 MR#: [id number] Acct: [id number] Name: VIRGINIA URRUTIA Rep #: [id number] : 1940 75 From: Byron Harris MD [...] your Primary Care Provider. Call Doctors Registry ([phone]) or report to the closest Emergency Room. Call 911 if necessary. 04/15/16 0118 &#6 0;Electronically signed by Byron Harris MD> Date Byron Harris MD Cosigner Signature (If Indicated): Date CC: Kristine Davis DO 14-Apr-2016 Venous Duplex Imag/Limited/Uni Result: Comments: See Note; NOTES: [facility] Imaging Services [address] [place] [address] Verdana 4d Venous Duplex Imag/Limited/Uni MR#: [id number] Acct: [id number] Name: RHONA URRUTIA Rep #: [id number] : 1940 F 75 From: Doug Sinclair DO PCP: Kristine Davis DO Status: REG ER Study: Venous Duplex Imag/Limited/Uni Date of Exam: 04/14/16 Exam# [id number] Ordering Dr: Byron Harris MD STUDY: VENOUS [...] Doug Sinclair DO at 23:15 EST Tel [phone], Service support [phone], CC: Kristine Davis DO; Byron Harris MD Program Counselor: Signed 13-Apr-2016 Spine Lumbar (Routine) Result: Comments: See Note; NOTES: [facility] Imaging Services [address] [place] [address] Verdana 4d Spine Lumbar (Routine) MR#: [id number] Acct: [id number] Name: VIRGINIA URRUTIA Kelly mortensen #: [id number] : 1940 F 75 From: Tiara Parsons MD PCP: Kristine Davis DO Status: REG CLI Study: Spine Lumbar (Routine) Date of Exam: 04/13/16 Exam# [id number] Ordering Dr: Kristine Davis DO STUDY: MRI [...] MD at 11:48 EST , Service support [phone], CC: Kristine Davis DO Program Counselor: Signed 12-Apr-2016 PT D/C Summary (1) Result: Comments: See Note; NOTES: [facility] [address] [place] [address]. [address] [place] [id number] Fax REHABILITATION SERVICES DISCHAR GE SUMMARY MR#: [id number] Acct: [id number] Name: VIRGINIA URRUTIA Rep #: [id number] : 1940 75 From: Humberto Aguilar DPT, OCS, CSCS Referring DrDav: Kristine Davis DO Status: REG R Insurance: [facility] - PT D/C Summary It has been my pleasure to treat VIRGINIA URRUTIA under orders from Kristine Davis DO, for the diagnosis of R hip pain for a total of 12 visit(s). Discharge Date: Please see the [facility] information for a summary of their discharge [...] help or hurt it. Will be in [place] in May and will have L TKA in June. Will see doctor next week. Walks with cane at home and wh walker out and about. - Pain R [...] please feel free to call me at [phone]. Thank eric laureano for the referral of this patient. Sincerely, Humberto Aguilar DPT, OC <Electronically signed by Humberto BAXTERT, OCS, CSCS> 04/12/16 1621 CC: Kristine Davis DO EBG Signed 12-Apr-2016 Dexa Bone Density Study (HP) Result: Comments: See Note; NOTES: [facility] Imaging Services [address] [facility] [place] [address] [place] 4d Dexa Bone Density Study (HP) MR#: [id number] Acct: [id number] Name: ENE URRUTIA Rep #: [id number] : 1940 F 75 From: Dashawn Rowe MD PCP: Kristine Davis DO Status: REG CLI Study: Dexa Bone Density Study (HP) Date of Exam: 04/12/16 Exam# [id number] Ordering Dr: Magallanes DO STUDY: DUAL ENERGY [...] of 14.9%. 0009 HPBD/Dexa Bone Density Study (HP) IMPRESSION: The patient is considered osteopenic as [...] Dashawn Rowe MD at 14:32 EST Tel [phone], Service support [phone], CC: Kristine Davis DO Program Counselor: Signed 10-Mar-2016 Inital Evaluation (1) - PT Result: Comments: See Note; NOTES: [facility] [facility]. [address] [place] [phone] Fax REHABILITATION SERVICES INITIAL EVALUATION MR#: [id number] Acct: [id number] Name: VIRGINIA URRUTIA Rep #: [id number] : 1940 75 From: Jennifer Gongora DPT Referring Dr.: Kristine Davis DO Status: REG RCR Insurance: [facility] isabella's Visit Information VIRGINIA URRUTIA is a 75 [...] to be FAXED BACK to us at [phone] for Medicare purposes. Please let me know if there are questio ns or concerns regarding this plan of care. Physician Signature: Date: <Electronically signed by Jennfier Gongora DPT> 1243 CC: Kristine Davis DO ELR Signed For Medicare only, by signing this I certify the plan of care. Physicians Signature Date 17-Dec-2015 Echocardiogram Complete Result: Comments: See Note; NOTES: [facility] Cardiovascular Services [address] [place] [address] Echo Complete 12/17/15 1401 MR#: [id number] Acct: [id number] Name: VIRGINIA URRUTIA Rep #: [id number] : 1940 75 From: Chicho Bahena MD Attending Dr: Kristine Davis DO Status: REG CLI Ordering Dr: Kristine Davis DO Date: 12/17/15 Location: [facility] Sex: F C Admitted: Reason For [...] CC: Kristine Davis DO Date Dictated: 12/17/15 140 Date Transcribed: 12/17/151700 Program Counselor: Signed 11-Dec-2015 Bilat Scrn Digital AND CAD Result: Comments: See Note; NOTES: [facility] Imaging Services [address] [place] [address] Verdana 4d Bilat Scrn Digital AND CAD MR#: [id number] Acct: [id number] Name: VIRGINIA URRUTIA Mook Rep #: [id number] : 1940 F 75 From: Dashawn Rowe MD PCP: Kristine Davis DO Status: REG CLI Study: Bilat Scrn Digital AND CAD Date of Exam: 12/11/15 Exam# [id number] Ordering Dr: Kristine Davis DO MAMMOGRAPHY - [...] delay biopsy of a clinically suspicious abnormality. [id number] Electronically Signed: Dashawn Rowe MD at 8:47 EDT Tel [phone], Service support [phone], CC: Kristine Davis DO Program Counselor: Signed 03-Jan-2015 Emergency Department Summary Result: Comments: See Note; NOTES: [facility] Medical Records Department [address] [place] [address] Emergency Department Summary MR#: [id number] Acct: [id number] Name: VIRGINIA URRUTIA Rep #: [id number] : 1940 74 From: Ivette Cline PCP: Kristine Davis DO Status: DEP ER DATE OF SERVICE: 12/27/2014 HISTORY OF PRESENT ILLNESS: The patient is a 74-year-old fema seferino who presents to the Emergency Department with [...] Angel Grossman C: Kristine Davis DO T: [facility] JOB: [id number] 01/03/15 3354 <Electronically signed b angle Cline > Date Ivette Cline Cosigner Signature (If Indicated): Date CC: Kristine Davis DO Date Dictated: 12/27/141108 Date Transcribed: 12/27/141108 Program Counselor: Signed 27-Dec-2014 Discharge Instruction Result: Comments: See Note; NOTES: [facility] Medical Records Department [address] [place] [address] Discharge Instruction 12/27/14 1100 MR#: [id number] Acct: [id number] Name: VIRGINIA URRUTIA Rep #: [id number] : 1940 74 From: Ivette Cline PCP: [...] problems, contact your doctor. Call Doctors Registry ([phone]) or report to the closest Emergency Room. Call 911 if necessary. 12/27/141105 <Electronically signed by Ivette Cline > Date Ivette Cline Cosigner Signature (If Indicated): Date _ CC: Kristine Davis DO 27-Dec-2014 Spine Cervical without Contras Result: Comments: See Note; NOTES: [facility] Imaging Services [address] [place] [address] Verdana 4d Spine Cervical without Contras MR#: [id number] Acct: [id number] Na me: VIRGINIA URRUTIA Rep #: [id number] : 1940 F 74 From: Doug Sinclair DO PCP: Antwan DOKristine Status: REG ER Study: Spine Cervical without Contras Date of Exam: 12/27/14 Exam# [id number] Ordering Dr : Ivette Cline STUDY: CT [...] Doug Sinclair DO at 10:36 EDT Tel [phone], Service suppo rt [phone], CC: Ivette Cline; Kristine Davis DO Program Counselor: Signed 23-Dec-2014 Emergency Department Summary Result: Comments: See Note; NOTES: [facility] Medical Records Department [address] [facility] [place] [address] Emergency Department Summary MR#: [id number] Acct: [id number] Name: VIRGINIA URRUTIA Rep #: [id number] : 1940 74 From: Se Dawkins MD [...] acute. Se Dawkins MD T: NTS JOB: [id number] 12/23/14 0800 <Electronically signed by Se Dawkins MD> Date Se Dawkins MD Cosigner Signature (If Indicated): Date CC: Kristine Davis DO Date Dictated: 12/23/14707 Date Transcribed: 12/23/14707 Program Counselor: Signed 23-Dec-2014 Discharge Instruction Result: Comments: See Note; NOTES: [facility] Medical Records Department [address] [place] [address] Discharge Instruction 12/23/14704 MR#: [id number] Acct: [id number] Name: VIRGINIA URRUTIA Rep #: [id number] : 1940 74 From: Se Dawkins MD [...] problems, contact your doctor. Call Doctors Registry ([phone]) or r eport to the closest Emergency Room. Call 911 if necessary. 12/23/14705 <Electronically signed by Se Dawkins MD> Date Se collins MD Cosigner Signature (If Indicated): Date CC: Kristine Davis DO 10-Dec-2014 ELECTROCARDIOGRAM, COMPLETE (ECG) (01943) Result: [MEASUREMENTS ANALYSIS] Date of Test: 12/10/2014 10:23:24; Heart Rate: 91; IN Interval: 144; QRS: 96; QT Interval: 372; Corrected QT Interval (QTc): 426; P Wave [place]: 49; QRS Wave [place]: 35; T Wave [place]: 30; Blood Pressure: 0/0 [ECG DIAGNOSTIC STATEMENTS] Date of Test: 12/10/2014 10:23:24; Summary: Sinus Rhythm Low voltage in limb leads. ABNORMAL 22-Sep-2014 Abdomen/Pelvis WITH Contrast Result: Comments: See Note; NOTES: [facility] Imaging Services [address] [place] [address] CAT Scan Report MR#: [id number] Acct: [id number] Name: VIRGINIA URRUTIA Rep #: [id number] : 1940 F 73 From: Rey Rojo MD PCP: Kristine Davis DO Status: REG CLI Study: Abdomen/Pelvis WITH Contrast Date of Exam: 09/22/14 Exam# [id number] Ordering Dr: Kristine Davis DO STUDY : [...] IMPRESSION: No CT evidence of an ac [place] intra-abdominal or pelvic process. Redemonstrated small multiple gallstones and bilateral renal cysts. Normal appendix. Electronically Signed: Rey Rojo MD at 16:58 EDT Te l [phone], Service support [phone], CC: Kristine Davis DO Program Counselor: Signed 31-Mar-2014 Transvaginal Non- Result: Comments: See Note; NOTES: [facility] Imaging Services [address] [place] [address] Ultrasound Report MR#: [id number] Acct: [id number] Name: VIRGINIA URRUTIA Mook Rep #: [id number] : 1940 F 73 From: Dashawn Rowe MD PCP: Kristine Davis DO Status: REG CLI Study: Transvaginal Non- Date of Exam: 03/31/14 Exam# [id number] Ordering Dr: Kristine Davis DO STUD Y: [...] Dashawn Rowe MD at 13:55 EST Tel [phone], Service support [phone], F ax [phone] CC: Kristine Davis DO Program Counselor: Signed 31-Mar-2014 Pelvic (Non ) Result: Comments: See Note; NOTES: [facility] Imaging Services [address] [place] [address] Ultrasound Report MR#: [id number] Acct: [id number] Name: VIRGINIA URRUTIA Rep #: [id number] : 1940 F 73 From: Dashawn Rowe MD PCP: Kristine Davis DO Status: REG CLI Study: Pelvic (Non ) Date of Exam: 03/31/14 Exam# [id number] Ordering Dr: Kristine Davis DO STUDY: U [...] Dashawn Rowe MD at 13:55 EST Tel [phone], Service support [phone], Fax CC: Kristine Davis DO Program Counselor: Signed 22-Jan-2014 Bilat Scrleticia Digital & CAD Result: Comments: See Note; NOTES: [facility] Imaging Services [address] [place] [address] [place] [address] Breast Imaging Report MR#: [id number] Acct: [id number] Name: VIRGINIA URRUTIA Rep #: [id number] : 1940 F 73 From: Dashawn Rowe MD PCP: Kristine Davis DO Status: REG CLI Exam# [id number] Ordering Dr: Kristine Davis DO MAMMOGRAPHY - BILATERAL SCREENING REASON FOR EXAM: Fem cora, 73 years old. Routine annual screening examination. [...] Dashawn Rowe MD at 14:49 EST Tel [phone], Ser vice support [phone], CC: Kristine Davis DO Program Counselor: Signed 07-Nov-2013 L/S Spine Min 4 Views Result: Comments: See Note; NOTES: [facility] Imaging Services [address] [place] [address] Radiology Report MR#: [id number] Acct: [id number] Name: VIRGINIA URRUTIA Rep #: [id number] : 1940 F 73 From: Tod Lamas MD PCP: Kristine Davis DO Status: REG CLI Study: L/S Spine Min 4 Views Date of Exam: 11/07/13 Exam# [id number] Ordering Dr: Kristine Davis DO STUDY: X-RA [...] at 18:52 EDT Tel , Service support [phone], CC: Kristine Davis DO Program Counselor: Signed 07-Nov-2013 Thoracic Spine 3 Views Result: Comments: See Note; NOTES: [facility] Imaging Services [address] [place] [address] Radiology Report MR#: [id number] Acct: [id number] Name: VIRGINAI URRUTIA Rep #: [id number] : 1940 F 73 From: Tod Lamas MD PCP: Kristine Davis DO Status: REG CLI Study: Thoracic Spine 3 Views Date of Exam: 11/07/13 Exam# [id number] Ordering Dr: Kristine Davis DO STUDY: X-R [...] at 17:07 EDT Tel , Service support [phone], CC: Kristine Davis DO Program Counselor: Signed 05-Nov-2013 Abdomen/Pelvis without Cont Result: Comments: See Note; NOTES: [facility] Imaging Services [address] [place] [address] CAT Scan Report MR#: [id number] Acct: [id number] Name: VIRGINIA URRUTIA Rep #: [id number] : 1940 F 73 From: Dashawn Rowe MD PCP: Kristine Davis DO Status: REG CLI Study: Abdomen/Pelvis without Cont Date of Exam: 11/05/13 Exam# [id number] Ordering Dr: Kristine Davis DO STUD Y: [...] Dashawn Rowe MD at 15:39 EDT Tel [phone], Service supp ort [phone], CC: Kristine Davis DO Program Counselor: Signed 07-Oct-2013 Kidney and Bladder Result: Comments: See Note; NOTES: [facility] Imaging Services [address] [place] [address] Ultrasound Report MR#: [id number] Acct: [id number] Name: VIRGINIA URRUTIA Rep #: [id number] : 1940 F 72 From: Brook Cummings DO PCP: Kristine Davis DO Status: REG CLI Study: Kidney and Bladder Date of Exam: 10/07/13 Exam# [id number] Ordering Dr: Aquiles Potts STUDY: RENAL ULTRAS [...] , CC: Aquiles Potts; Kristine Davis DO Program Counselor: Signed Immunization Name Dates Details Influenza (3 years and up) on: 17-Dec-2008 Comments: Lot #:[id number] date:mount given:0.5mlRoute: IMSite given:left deltoidGiven by: AYAD [...] smoker Vital Signs Date Test Result Details 77-Yjk-673095:07 Temperature 97.9 f Comments: Method: Temporal Pulse [...] kg/m2 Body Surface Area Calculated 2.08 m2 :00 Temperature 97.4 f Comments: Method: Temporal Pulse [...] 0.00 cm Results Date Description Value Details 51-Sdm-648075:12 ANGTENSIN 1-CONVRT ENZYM Comments: PATIENT NOT FASTINGPERFORMED BY: [facility] [id number] BY: [employer] [address] [id number] ([id number]) YOSEF 30 U/L (Normal) Range: 14-82 47-Xwn-933007:12 CCP ANTIBODY (21010) Comments: PATIENT NOT FASTINGPERFORMED BY: [employer] Planet TechnologiesKindred Hospital [facility] [id number] BY: [employer] [id number] CCP Antibodies IgG/IgA 8 {units} (Normal) Range: 0-19 Comments: Negative <20 Weak positive 20 - 39 Moderate positive 40 - 59 Strong positive >59 52-Jwq-090975:12 CAROL (ANTINUCLEAR ANTIBODY) Comments: PATIENT NOT FASTINGPERFORMED BY: Smart Planet TechnologiesKindred Hospital - [facility] [id number] BY: DataEmail Group[address] [id number] (03139) CAROL Direct Negative (Normal) 10-Vvb-082783:12 RHEUMATOID FACTOR-QUANT Comments: PATIENT NOT FASTINGPERFORMED BY: [facility] CenterEngine YardKimberly Ville 8343670 [facility] [id number] BY: [address] [id number] (29119) RA Latex Turbid. <10.0 {IU/mL} (Normal) Range: 0.0-13.9 03-Dor-438162:12 SED RATE ERYTHROCYTE Comments: PATIENT NOT FASTINGPERFORMED BY: [facility] CenterEngine Yard[address] [id number] BY: [address] [id number] (06290) Sedimentation Rate-Westergren 15 mm/h (Normal) Range: 0-40 65-Xqr-060716:12 C-REACTIVE PROTEIN Comments: PATIENT NOT FASTINGPERFORMED BY: Luv Rink[address] [id number] BY: [address] [id number] (94227) C-Reactive Protein, Quant 2.9 mg/L (Normal) Range: 0.0-4.9 94-Knr-633121:12 CBC, PLATELETS & AUT DIFF Comments: PATIENT NOT FASTINGPERFORMED BY: [address] [id number] BY: [address] [id number] (07061) Immature Grans (Abs) 0.0 {x10E3/uL} (Normal) Range: [...] 3.77-5.28 WBC 7.8 {x10E3/uL} (Normal) Range: 3.4-10.8 75-Hic-308055:12 VITAMIN B-12 Comments: PATIENT NOT FASTINGPERFORMED BY: Luv RinkNewark Beth Israel Medical CenterGksihi2558 [facility] [id number] BY: Luv Rink[address] [id number] (CYANOCOBALAMIN) (43444) Vitamin B12 579 pg/mL (Normal) Range: 232-1245 08-Adw-50490:31 LIPID PANEL (26235) Comments: PATIENT WAS FASTINGPERFORMED BY: Luv RinkNewark Beth Israel Medical CenterZcgfru1989 [facility] [id number]; appt 01/02 LDL/HDL Ratio 1.9 {ratio} (Normal) [...] be changing to: Male Female 40 - 099434 50 - 463392 Triglycerides 145 mg/dL (Normal) Range: 0-149 Cholesterol, Total 240 mg/dL (Abnormal) Range: 100-199 31-Gqa-32910:31 METABOLIC PANEL, COMPREHENSIVE Comments: PATIENT WAS FASTINGPERFORMED BY: Luv Rink Mywdkq3418 [facility] HospitalmimoOnKindred Hospital - [facility] [id number] (66152) ALT (SGPT) 16 [iU]/L (Normal) Range: 0-32 [...] 8-27 Glucose 98 mg/dL (Normal) Range: 65-99 51-Ckq-198331:13 METABOLIC PANEL, BASIC Comments: PATIENT NOT FASTINGPERFORMED BY: Luv RinkAlta Vista Regional HospitalGvgfif6818 OlivaBathurst Resources LimitedKindred Hospital - [facility] [id number]; review on 01/02 (06151) Calcium 9.9 mg/dL (Normal) Range: 8.7-10.3 Carbon [...] (Gamma Glutamyl Comments: PATIENT NOT FASTINGPERFORMED BY: Ostrovok Pqitea0694 [address] PayDivvyblin [place] [id number] Transferase) (04330) GGT 20 [iU]/L (Normal) Range: 0-60 :38 Alkaline Phosphatase (83317) Comments: PATIENT NOT FASTINGPERFORMED BY: Luv Rink Pxcomi5578 [address] PayDivvyblin [place] [id number] Alkaline Phosphatase 131 [iU]/L (Abnormal) Range: 39-117 :38 THYROXINE FREE (54737) Comments: PATIENT NOT FASTINGPERFORMED BY: Luv Rink Wnwarl0077 [address] PayDivvyblin [place] [id number] T4,Free(Direct) 1.92 ng/dL (Abnormal) Range: 0.82-1.77 38-Nkr-891569:38 FREE TRIDOTHYRONINE (T3) (83961) Comments: PATIENT NOT FASTINGPERFORMED BY: Luv Rink Mzrtyf4095 [address] PayDivvyblin [place] [id number] Triiodothyronine,Free,Serum 2.4 pg/mL (Normal) Range: 2.0-4.4 :38 VITAMIN B-12 (CYANOCOBALAMIN) Comments: PATIENT NOT FASTINGPERFORMED BY: Luv Rink Cfeghq8254 [address] CarNinja, IncDublin [place] [id number] (37726) Vitamin B12 665 pg/mL (Normal) Range: 232-1245 39-Bye-04085:06 VITAMIN B-12 (CYANOCOBALAMIN) Comments: PATIENT NOT FASTINGPERFORMED BY: [facility]6370 [facility] [id number] (64156) Vitamin B12 1301 pg/mL (Abnormal) Range: 232-1245 8-Xhg-867638:25 Metabolic Panel, Comprehensive Comments: PATIENT NOT FASTINGPERFORMED BY: [facility]6370 [facility] [id number]; review on 08/28 (75502) ALT (SGPT) 10 [iU]/L (Normal) Range: 0-32 [...] 0 days - 30 days 16 - 29 16 - 29 31 days - 1 year 15 - 25 15 - 25 2 years - 5 years 17 - 26 17 - 26 6 y ears - 12 years 19 - 27 19 - 27 >12 years 20 - 29 20 - 29 Chloride 103 mmol/L (Normal) Range: 96-106 Potassium 4.6 mmol/L (Normal) Range: 3.5-5.2 Sodium 143 mmol/L (Normal) Range: 134-144 BUN/Creatinine Ratio 21 (Normal) Range: 12-28 eGFR If Africn Am 46 mL/min/1.73 (Abnormal) eGFR If NonAfricn Am 40 mL/min/1.73 (Abnormal) Creatinine 1.31 mg/dL (Abnormal) Range: 0.57-1.00 BUN 28 mg/dL (Abnormal) Range: 8-27 Glucose 84 mg/dL (Normal) Range: 65-99 2-Ccl-350831:25 CBC WITH MANUAL DIFF (70249) Comments: PATIENT NOT FASTINGPERFORMED BY: Luv Rink SociocastKindred Hospital - [facility] [id number] Immature Grans (Abs) 0.0 {x10E3/uL} (Normal) Range: [...] 3.77-5.28 WBC 7.9 {x10E3/uL} (Normal) Range: 3.4-10.8 3-Drj-656919:59 METABOLIC PANEL, COMPREHENSIVE Comments: PATIENT NOT FASTINGPERFORMED BY: Luv Rink Rywiye5028 [facility] [id number] (04828) ALT (SGPT) 10 [iU]/L (Normal) Range: 0-32 [...] 88 mg/dL (Normal) Range: 65-99 :46 TSH (76204) Comments: 6 weeks; PATIENT NOT FASTINGPERFORMED BY: [facility] Ffyfla6095 [facility] [id number] TSH 2.420 {uIU/mL} (Normal) Range: 0.450-4.500 :23 LIPID PANEL (49369) Comments: PATIENT WAS FASTINGPERFORMED BY: [facility] Agrtay2012 [facility] [id number] LDL/HDL Ratio 1.6 {ratio_units} (Normal) Range: 0.0-3.2 Comments: LDL/HDL Ratio Men Women 1/2 Avg.Risk 1.0 1.5 Av g.Risk 3.6 3.2 2X Avg.Risk 6.2 5.0 3X Avg.Risk 8.0 6.1 LDL Cholesterol Calc 125 mg/dL (Abnormal) Range: 0-99 VLDL Cholesterol Meliton 25 mg/dL (Normal) Range: 5-40 HDL Cholesterol 78 mg/dL (Normal) Triglycerides 124 mg/dL (Normal) Range: 0-149 Cholesterol, Total 228 mg/dL (Abnormal) Range: 100-199 36-Cpl-96329:23 METABOLIC PANEL, COMPREHENSIVE Comments: PATIENT WAS FASTINGPERFORMED BY: LabCoNewark Beth Israel Medical CenterEkvcwq0491 [facility] [id number] (45895) ALT (SGPT) 15 [iU]/L (Normal) Range: 0-32 [...] Range: 65-99 :23 CBC W/AUTO DIFF WBC (01410) Comments: PATIENT WAS FASTINGPERFORMED BY: Luv Rink Tdngsn1567 [facility] [id number] Immature Grans (Abs) 0.0 {x10E3/uL} (Normal) Range: [...] (Normal) Range: 3.4-10.8 :23 Vitamin D Hydroxy (61064) Comments: PATIENT WAS FASTINGPERFORMED BY: LabCoNewark Beth Israel Medical CenterAlxawr1577 [facility] [id number] Vitamin D, 25-Hydroxy 41.5 ng/mL (Normal) Range: 30.0-100.0 Comments: Vitamin D deficiency has been defined by the [place] ofMedicine and an Endocrine Society practice guideline as alevel of serum 25-OH vitamin D less than 20 ng/mL (1,2).The Endocrine Society went on to further define vitamin Dinsufficiency as a level between 21 and 29 ng/mL (2).1. IOM ([place] of Medicine). 2010. Dietary reference intakes for calcium and D. [place]: The National Academies Press.2. Seng MF, Theresa ROMERO, Kieran KOWALSKI, et al. Evaluation, treatment, and prevention of vitamin D deficiency: an Endocrine Society clinical practice guideline. JCEM. 2010; 96(7):1911-30. :23 TSH (32825) Comments: PATIENT WAS FASTINGPERFORMED BY: HouzeMe [facility] Mecxes9314 Oliva RoadDublin [place] [id number] TSH 0.429 {uIU/mL} (Abnormal) Range: 0.450-4.500 :23 VITAMIN B-12 (CYANOCOBALAMIN) Comments: PATIENT WAS FASTINGPERFORMED BY: HouzeMe [facility] Nhiylh2532 Oliva RoadDublin [place] [id number] (61218) Vitamin B12 553 pg/mL (Normal) Range: 211-946 3-Kaq-172605:52 CBC, PLATELETS & MANUAL DIFF Comments: PATIENT NOT FASTINGPERFORMED BY: HouzeMe [facility] Skcabp0844 Oliva RoadDublin [place] [id number] (61823) Immature Grans (Abs) 0.0 {x10E3/uL} (Normal) Range: [...] 3.4-10.8 :09 Basic Metabolic Profile (BMP) Comments: [facility] Cfwthlyojn3[address] [facility] [place], [address] GAP 9 (Normal) Range: 5-15 CO2 29.0 [...] :09 CBC-Complete Blood Cnt No Diff Comments: [facility] Kcuicuaoki[address] [place], [address] MPV 9.1 fL (Normal) Range: 6.2-12.0 PLT [...] 5.7 K/mm3 (Normal) Range: 4.4-11.0 :53 Magnesium (15675) Comments: PATIENT NOT FASTINGPERFORMED BY: [facility] Bouubl1752 [facility] [id number] Magnesium, Serum 1.9 mg/dL (Normal) Range: 1.6-2.3 :53 METABOLIC PANEL, COMPREHENSIVE Comments: PATIENT NOT FASTINGPERFORMED BY: [facility] Xgtwfo2185 [facility] [id number]; non- emergent till apt (17204) ALT (SGPT) 18 [iU]/L (Normal) Range: 0-32 [...] Glucose, Serum 83 mg/dL (Normal) Range: 65-99 :53 TSH (23634) Comments: PATIENT NOT FASTINGPERFORMED BY: CB [facility] Mzrynp6129 [facility]in [place] [id number] TSH 1.810 {uIU/mL} (Normal) Range: 0.450-4.500 24-Cub-918194:15 Vitamin D Hydroxy (17566) Comments: PATIENT NOT FASTINGPERFORMED BY: CB [facility] Nppquu0526 [address] [facility] Hospitalblin [place] [id number] Vitamin D, 25-Hydroxy 28.3 ng/mL (Abnormal) Range: 30.0-100.0 Comments: Vitamin D deficiency has been defined by the [place] ofMedicine and an Endocrine Society practice guideline as alevel of serum 25-OH vitamin D less than 20 ng/mL (1,2).The Endocrine Society went on to further define vitamin Dinsufficiency as a level between 21 and 29 ng/mL (2).1. IOM ([place] of Medicine). 2010. Dietary reference intakes for calcium and D. [place]: The National Academies Press.2. Seng MF, Theresa ROMERO, Kieran KOWALSKI, et al. Evaluation, treatment, and prevention of vitamin D deficiency: an Endocrine Society clinical practice guideline. JCEM. 2010; 96(7):1911-30. 16-Oju-893352:15 VITAMIN B-12 (CYANOCOBALAMIN) Comments: PATIENT NOT FASTINGPERFORMED BY: CumulocityFresenius [facility]6370 [facility] [id number] (62916) Vitamin B12 447 pg/mL (Normal) Range: 211-946 56-Gjt-538486:15 CBC W/AUTO DIFF WBC Comments: PATIENT NOT FASTINGPERFORMED BY: CumulocityFresenius [facility]6370 [facility] [id number] Information: SRC: ([id number]) Immature Grans (Abs) 0.0 {x10E3/uL} (Normal) Range: [...] 3.77-5.28 WBC 5.6 {x10E3/uL} (Normal) Range: 3.4-10.8 11-Igg-507665:15 METABOLIC PANEL, COMPREHENSIVE Comments: PATIENT NOT FASTINGPERFORMED BY: LabCoNewark Beth Israel Medical CenterKslotp4910 [facility] [id number] (17384) ALT (SGPT) 13 [iU]/L (Normal) Range: 0-32 [...] Glucose, Serum 87 mg/dL (Normal) Range: 65-99 85-Tdl-727911:50 Urinalysis, Office (99942) UA - LEUKOCYTE ESTERASE Trace (Normal) UA - NITRITE Negative (Normal) URINE UROBILINGN TUNDE TIMED Normal mg/dL (Normal) UA - PROTEIN Negative mg/dL (Normal) UA - PH 5 (Abnormal) UA - BLOOD Negative (Normal) UA - SPECIFIC GRAVITY 1.025 (Normal) UA - KETONES Negative mg/dL (Normal) UA - BILIRUBIN Negative (Normal) UA - GLUCOSE Negative (Normal) 24-Ynr-949715:15 URINE CESAR CULTURE (TUNDE COL Comments: PATIENT NOT FASTINGPERFORMED BY: Isai70 SampalRxFormerly [facility] [id number] COUNT) (59206) Result 1 MUG (Normal) Comments: Mixed urogenital floraGreater than 100,000 colony forming units per mL Urine Culture,Comprehensive Final report (Normal) 56-Qav-562463:29 URINE CESAR CULTURE-IDENTIFICATN Comments: PATIENT NOT FASTINGPERFORMED BY: Ostrovokrp Zmzfkx7532 SampalRxFormerly [facility] [id number] Information: [id number] (19576) Result 1 MUG (Normal) Comments: Mixed urogenital flora1,000 Colonies/mL Urine Culture,Comprehensive Final report (Normal) 25-Ihl-596035:29 URINE CESAR CULTURE-TUNDE COL Comments: PATIENT NOT FASTINGPERFORMED BY: HouzeMe [facility] Dplqgu0808 SampalRxFormerly [facility] [id number] Information: SRC:URC [id number] COUNT (64104) Result 1 MUG (Normal) Comments: Mixed urogenital flora25,000-50,000 colony forming units per mL Urine Final report (Normal) Culture,Comprehensive 71-Otb-758002:07 Urinalysis, Office (39458) UA - LEUKOCYTE ESTERASE Small (Normal) UA - NITRITE Negative (Normal) URINE UROBILINGN TUNDE TIMED Normal mg/dL (Normal) UA - PROTEIN Negative mg/dL (Normal) UA - PH 5 (Abnormal) UA - BLOOD Hemolyzed Trace (Normal) UA - SPECIFIC GRAVITY 1.015 (Normal) UA - KETONES Negative mg/dL (Normal) UA - BILIRUBIN Negative (Normal) UA - GLUCOSE Negative (Normal) 6-Jzo-439280:02 URINE CESAR CULTURE (TUNDE Comments: PATIENT NOT FASTINGPERFORMED BY: MarketLive70 [facility] [id number] Information: SRC:[facility] [id number] COL COUNT) (12360) Result 1 NG36 (Normal) Comments: No growth in 36 - 48 hours. Urine Culture,Comprehensive Final report (Normal) 17-Sep-20149:51 CBC With Differential/Platelet Comments: PATIENT NOT FASTINGPERFORMED BY: Luv Rink Kwfycv2918 [facility] [id number] Information: [id number] Immature Grans (Abs) 0.0 {x10E3/uL} (Normal) Range: [...] (14) Comments: PATIENT NOT FASTINGPERFORMED BY: [facility] Xgvghd9536 [facility] [id number] ALT (SGPT) 11 [iU]/L (Normal) Range: 0-32 [...] Glucose, Serum 89 mg/dL (Normal) Range: 65-99 :13 SED RATE ERYTHROCYTE (44479) Comments: PATIENT WAS FASTINGPERFORMED BY: [facility]6370 [facility] [id number] Sedimentation Rate-Westergren 6 mm/h (Normal) Range: 0-40 :13 C-REACTIVE PROTEIN (70056) Comments: PATIENT WAS FASTINGPERFORMED BY: [facility]6370 [facility] [id number] C-Reactive Protein, Quant 2.2 mg/L (Normal) Range: 0.0-4.9 :13 CBC W/AUTO DIFF WBC Comments: PATIENT WAS FASTINGPERFORMED BY: CumulocityFresenius Medical [facility]6370 [facility] [id number] Information: [id number] (25326) Immature Grans (Abs) 0.0 {x10E3/uL} (Normal) Range: [...] 4.6 {x10E3/uL} (Normal) Range: 3.4-10.8 :13 TSH (99045) Comments: PATIENT WAS FASTINGPERFORMED BY: Isai70 [address] [facility] [id number] TSH 0.584 {uIU/mL} (Normal) Range: 0.450-4.500 04-Xlz-252808:42 Urinalysis, Office (38490) UA - LEUKOCYTE ESTERASE Small (Normal) UA - NITRITE Negative (Normal) URINE UROBILINGN TUNDE TIMED Normal mg/dL (Normal) UA - PROTEIN Negative mg/dL (Normal) UA - PH 6 (Abnormal) UA - BLOOD Negative (Normal) UA - SPECIFIC GRAVITY 1.025 (Normal) UA - KETONES Negative mg/dL (Normal) UA - BILIRUBIN Negative (Normal) UA - GLUCOSE Negative (Normal) 01-Iob-221210:43 URINE CESAR CULTURE (TUNDE Comments: PATIENT NOT FASTINGPERFORMED BY: HouzeMe LabSulmaq6370 [facility] [id number] Information: SRC:UR [id number] COL COUNT) (05082) Result 1 MUG (Normal) Comments: Mixed urogenital flora25,000-50,000 colony forming units per mL Urine Final report (Normal) Culture,Comprehensive :13 Vitamin D Hydroxy (01966) Comments: PATIENT WAS FASTINGPERFORMED BY: HouzeMe [facility] Zjtmqq5252 [facility] [id number] Vitamin D, 25-Hydroxy 38.7 ng/mL (Normal) Range: 30.0-100.0 Comments: Vitamin D deficiency has been defined by the [place] ofMedicine and an Endocrine Society practice guideline as alevel of serum 25-OH vitamin D less than 20 ng/mL (1,2).The Endocrine Society went on to further define vitamin Dinsufficiency as a level between 21 and 29 ng/mL (2).1. IOM ([place] of Medicine). 2010. Dietary reference intakes for calcium and D. [place]: The National Academies Press.2. Seng MF, Theresa [place], Kieran KOWALSKI, et al. Evaluation, treatment, and prevention of vitamin D deficiency: an Endocrine Society clinical practice guideline. JCEM. 2010; 96(7):1911-30. :13 LIPID PANEL (65102) Comments: PATIENT WAS FASTINGPERFORMED BY: [facility]6370 [facility] [id number] LDL/HDL Ratio 1.8 {ratio_units} (Normal) Range: 0.0-3.2 [...] PANEL, COMPREHENSIVE Comments: PATIENT WAS FASTINGPERFORMED BY: LabFresenius [facility]6370 [facility] [id number] (31093) ALT (SGPT) 14 [iU]/L (Normal) Range: 0-32 [...] Glucose, Serum 86 mg/dL (Normal) Range: 65-99 16-Zla-08907:13 VITAMIN B-12 (CYANOCOBALAMIN) Comments: PATIENT WAS FASTINGPERFORMED BY: Isai70 [address] [facility] [id number] (53687) Vitamin B12 >1999 pg/mL (Abnormal) Range: 211-946 97-Dhi-924904:00 Metabolic Panel, Basic Comments: 6 weeks; PATIENT NOT FASTINGPERFORMED BY: Ostrovok Xkukuv3360 [facility]ivaPark[facility] Center [id number] Information: [id number] (04816) Calcium, Serum 9.7 mg/dL (Normal) Range: 8.6-10.2 [...] Glucose, Serum 90 mg/dL (Normal) Range: 65-99 11-Ioc-212789:24 URINE CESAR CULTURE-IDENTIFICATN Comments: PATIENT NOT FASTINGPERFORMED BY: [facility]6370 [facility] [id number] Information: [id number] (51181) Result 1 ENTEGA (Abnormal) Comments: Enterococcus itqokaldac89,000-25,000 colony forming units per mLNote: For enterococci with intrinsic intermediate-level resistance tovancomycin, such as E. casseliflavus and E. gallinarum, VRE infection control measures are not applicable, per the CLSI (formerly NCCLS).For Enterococcus species, cephalosporins, aminoglycosides (except forhigh-level resistance screening), clindamycin, and trimethoprim-curtis lfamethoxazole are not effective clinically. Fluoroquinolones areused primarily for treating urinary tract infections. (CLSI, S663-K99,2009) S = Susceptible; I = Intermediate; R = Resistant * P = Positive; N = Negative MICS are expressed in micrograms per mL Antibiotic RSLT#1 RSLT#2 RSLT#3 RSLT#4Ciprofloxacin SGentami lien 500 SLevofloxacin SNitrofurantoin IPenicillin SStreptomycin 2000 STetracycline SVancomycin R Urine Final report (Abnormal) Culture,Comprehensive 65-Ucp-016346:51 METABOLIC PANEL, Comments: PATIENT NOT FASTINGPERFORMED BY: [facility]6370 [facility] [id number] Information: [id number] COMPREHENSIVE (79254) ALT (SGPT) 20 [iU]/L (Normal) Range: 0-32 [...] Glucose, Serum 80 mg/dL (Normal) Range: 65-99 80-Olg-348592:04 Microscopic Examination Comments: PATIENT NOT FASTINGPERFORMED BY: Solulinkox CarNinja, IncFormerly [facility] [id number] Bacteria Few (Normal) Mucus Threads Present (Normal) Epithelial Cells (non renal) 0-10 {/hpf} (Normal) Range: 0 - 10 RBC None seen {/hpf} (Normal) Range: 0 - 2 WBC None seen {/hpf} (Normal) Range: 0 - 5 74-Loi-488730:04 URINE CESAR CULTURE (TUNDE COL Comments: PATIENT NOT FASTINGPERFORMED BY: [facility] [facility]6370 [facility]ivaPark[facility] Center [id number] COUNT) (02086) Antimicrobial MIHEAD (Normal) Comments: S = Susceptible; [...] mL (Abnormal) Urine Final report Culture,Comprehensive (Abnormal) 50-Xdj-833990:04 URINALYSIS, W/ MICRO Comments: PATIENT NOT FASTINGPERFORMED BY: [place] 6509070 [facility] [id number] Information: SRC: [id number] (02198) Microscopic Examination See below: (Normal) Comments: Microscopic was indicated and was performed. Microscopic Examination MICRON (Normal) Comments: Microscopic follows if indicated. Nitrite, Urine Negative (Normal) Bilirubin Negative (Normal) Urobilinogen,Semi-Qn 0.2 mg/dL (Normal) Range: 0.0-1.9 Ketones Negative (Normal) Occult Blood Negative (Normal) Glucose Negative (Normal) Protein Negative (Normal) WBC Esterase Negative (Normal) Appearance Clear (Normal) Urine-Color Yellow (Normal) pH 6.0 (Normal) Range: 5.0-7.5 Specific [place] 1.010 (Normal) Range: 1.005-1.030 40-Nri-291929:00 METABOLIC PANEL, Comments: PATIENT NOT FASTINGPERFORMED BY: [facility]6370 [facility] [id number] Information: [id number] COMPREHENSIVE (13494) ALT (SGPT) 11 [iU]/L (Normal) Range: 0-32 [...] CHOL 200 mg/dL (Normal) Comments: <200 mg/dL Aimlvkstp182-263 mg/dL Borderline>240 mg/dL High Risk :26 TSH 1.85 {uIU/mL} (Normal) Range: 0.358-3.74 :26 VITD 72.9 mg/mL (Normal) Comments: will review at 11-05 appt Comments: Vitamin D 25(OH) Status RangeDeficiency <20 ng/mL (50nmol/L)Insuffciency 20 - 30 ng/mL (50 - 75 nmol/L)Sufficiency 30 - 100 ng/mL (75 - 250 nmol/L)Toxicity >100 ng/mL (>250 nmol/L) 0-Czd-560077:05 Urinalysis, Office (87975) UA - LEUKOCYTE ESTERASE Negative (Normal) UA - NITRITE Negative (Normal) URINE UROBILINGN TUNDE TIMED 2 mg/dL (Normal) UA - PROTEIN 30 mg/dL (Normal) UA - PH 6.0 (Normal) Comments: 5.5 UA - BLOOD Negative (Normal) UA - SPECIFIC GRAVITY 1.030 (Abnormal) UA - KETONES Small mg/dL (Normal) UA - BILIRUBIN Negative (Normal) UA - GLUCOSE Negative (Normal) 9-Yxk-269032:33 URINE CESAR CULTURE-TUNDE COL Comments: PERFORMED BY: [employer] [id number] COUNT (18087) Result 1 MUG (Normal) Comments: Mixed urogenital flora10,000-25,000 colony forming units per mL Urine Final report (Normal) Culture,Comprehensive 43-Ilp-218656:52 URINE CESAR CULTURE-TUNDE COL Comments: PATIENT NOT FASTINGPERFORMED BY: Ostrovokrp Revel BodyHarlan AR[facility] Hospital [id number] Information: SRC:UR [id number] COUNT (09561) Antimicrobial MIHEAD (Normal) Comments: S = Susceptible; [...] CHOL 203 mg/dL (Abnormal) Comments: <200 mg/dL Rsdhxpfei819-849 mg/dL Borderline>240 mg/dL High Risk :47 TSH 1.52 {uIU/mL} (Normal) Range: 0.358-3.74 :47 VITD 59.3 mg/mL (Normal) Comments: Vitamin D 25(OH) Status RangeDeficiency <20 ng/mL (50nmol/L)Insuffciency 20 - 30 ng/mL (50 - 75 nmol/L)Sufficiency 30 - 100 ng/mL (75 - 250 nmol/L)Toxicity >100 ng/mL (>250 nmol/L) 3-Aus-863570:44 CBC, PLATELETS & AUT DIFF Comments: PATIENT NOT FASTINGPERFORMED BY: [facility] Ssxkle2373 [facility] [id number] Information: [id number] (18754) Immature Grans (Abs) 0.0 {x10E3/uL} (Normal) Range: [...] 3.77-5.28 WBC 6.4 {x10E3/uL} (Normal) Range: 3.4-10.8 0-Gvk-740548:44 FOLIC ACID SERUM (72805) Comments: PATIENT NOT FASTINGPERFORMED BY: CumulocityFresenius [facility]6370 [facility] [id number] Folate (Folic Acid), Serum 14.4 ng/mL (Normal) Comments: A serum folate concentration of less than 3.1 ng/mL isconsidered to represent clinical deficiency. 5-Drw-779196:44 RETICULOCYTE COUNT [facility] Comments: PATIENT NOT FASTINGPERFORMED BY: CumulocityFresenius [facility]6370 [facility] [id number] (85446) Reticulocyte Count 1.1 % (Normal) Range: 0.6-2.6 3-Xdd-461184:44 LDH (LD) (LACTATE DEHYDROGENASE) Comments: PATIENT NOT FASTINGPERFORMED BY: Cumulocity[address] [id number] (70291) LDH 250 [iU]/L (Abnormal) Range: 0-214 7-Hei-046250:44 IRON BINDING CAPACITY (TIBC) Comments: PATIENT NOT FASTINGPERFORMED BY: CumulocityFresenius [facility]6370 [facility] [id number] (21821) Iron Saturation 16 % (Normal) Range: 15-55 Iron, Serum 52 ug/dL (Normal) Range: 35-155 UIBC 270 ug/dL (Normal) Range: 150-375 Iron Bind.Cap.(TIBC) 322 ug/dL (Normal) Range: 250-450 :44 FERRITIN (04670) Comments: PATIENT NOT FASTINGPERFORMED BY: LISBETH [facility] Faxtbj6215 Hazel SaundersFormerly [facility] [id number] Ferritin, Serum 42 ng/mL (Normal) Range: 15-150 [...] Rowe M.D.July 23, 2012 at 2:35:49 PM [id number] Signed GP/GP If you are the referring physicia n and would like to consult with theradiologist who provided this interpretation, please contact Ofelia Rodriguez at [phone]. If this radiologist is unavailable, youwill be directed to [facility]ologist to assist. If you are a patient with a question regarding this report, pleasecontactyour referring physician directly. Professional Interpretation Provided By: Wally, Phone , These documents contain legally protected and confidential healthinformation intended only for the use of the individual or entity namedabove. If you are not the intended recipie nt, you are hereby notifiedthatany disclosure, copying, distribution, or other use of these documents isstrictly prohibited. If you have received this information in error,pleasenotify the sender immedivone ately and arrange for the return or destructionofthese documents. Dictated on 07/23/12 1402 by Jennifer Rowe MDranscribed on 07/23/12 1438 by ITS IMPORTSign by Dashawn Rowe MD on 3 1439 Sign by: Dashawn Rowe MD 8-Ksj-097254:59 KIDNEY Radiology Report See Note (Normal) Comments: [...] Welsh M.D.July 11, 2012 at 5:00:06 PM [id number] Signed TT/TT If you are the referring physician and would like to consult with theradiologist who provided this interpretation, please contact Brittney Mccormack M.D. at [phone]. If this radiologist is unavailable, youwillbe directed to another radiologist to assist. If you are a patient with a question regarding this report, pleasecontactyour referring physician directly. Professional Interpretat ion Provided By: Wally, Phone , These documents contain legally protected and confidential healthinformation intended only for the use of the individual or entity [facility]. If you are not the intended recipient, you are hereby notifiedthatany disclosure, copying, distribution, or other use of these documents isstrictly prohibited. If you have received this informa tion in error,pleasenotify the sender immediately and arrange for the return or destructionofthese documents. Dictated on 07/11/12 1528 by Brittney Welsh MDTranscribed on 07/11/125 by ITS IMPORTS ign by Brittney Welsh MD on 07/11/121825 Sign by: Brittney Welsh MD 4-Ddf-499281:59 TRANSVAGINAL NON- Radiology Report See Note (Normal) [...] Welsh M.D.July 11, 2012 at 4:45:28 PM [id number] Signed TT/TT If you are the referring physician and would like to consult with sebastian dunlap who provided this interpretation, please contact Brittney Mccormack M.D. at [phone]. If this radiologist is unavailable, youwillbe directed to another radiologist to assist. If you are a p atient with a question regarding this report, pleasecontactyour referring physician directly. Professional Interpretation Provided By: Wally, Phone , These documents contain legally protected [...] pg/mL Range: 211-911 9:44 (Normal) Comments: Effective 201206-Jul-20129:44 CBCD ANC 4.2 3/uL (Normal) Range: 2.0-7.7 [...] CHOL 210 mg/dL (Abnormal) Comments: <200 mg/dL Dovijjfzp262-025 mg/dL Borderline>240 mg/dL High Risk :44 MG 1.8 mg/dL (Normal) Range: 1.8-2.4 :44 SED tSEDRATE 18 mm/h (Normal) Range: 0-30 :44 TSH 8.94 {uIU/mL} (Abnormal) Range: 0.358-3.74 :44 VITD 90.8 ng/mL (Normal) Comments: Vitamin D 25(OH) Status RangeDeficiency <20 ng/mL (50nmol/L)Insufficiency 20 - 30 ng/mL (50 - 75 nmol/L)Sufficiency 30 - 100 ng/mL (75 - 250 nm ol/L)Toxicity >100 ng/mL (250 nmol/L)Effective 201204-Jul-201223-Xqt-803168:29 ABDOMEN/PELVIS WITH CONTRAST Radiology Report See Note [...] in comparison with the unenhanced examination of 2008. Theendometrial cavity is not clearly visualized. No [...] to well characterize low-attenuation left renal lesion,probably sales development representative of a cyst. Consider follow-up renal sonographyforfurther evaluation as clinically warranted. Signed:Matilda AvilesJuly 04, 2012 at 5:12:21 PM [id number] Signed DL/DL If you are the referring physician and would like to consult with theradiologist who provided this interpretation, please contact Ofelia Kyle at [phone]. If this radiologist is unavailable, youwillbe directed to another radiologist to assist. If you are a patient with a question regarding this report, pleasecontactyo ur referring physician directly. Professional Interpretation Provided By: Wally, Phone , These documents contain legally protected [...] the return or destructionofthese documents. Dictated on 07/04/128 by Salinas Newsome MDTranscribed on 07/04/121713 by ITS IMPORTSign by Salinas Champion MD on 07/04/121714 Sign by: Salinas Champion MD 93-Bce-197810:18 CRE GFRAA 41 mL/min (Abnormal) GFR 34 mL/min (Abnormal) CREAT 1.6 mg/dL (Abnormal) Range: 0.6-1.0 34-Gzt-185150:15 BMP GAP 7 (Normal) Range: 5-15 CO2 [...] 7-18 GLU 80 mg/dL (Normal) Range: 70-110 06-Tjv-069224:15 TSH 3.05 {uIU/mL} (Normal) Range: 0.358-3.74 :22 B12 577 pg/mL (Normal) Range: 211-946 Comments: Performed at: [facility] [id number] Director: Patito Segovia MD, Phone: [phone] :[phone] CBCMD RBCM NORM C+C {NORMAL} (Normal) [...] D deficiency has been defined by the [place] of[place] and an Endocrine Society practice guideline as alevel of serum 25-OH vitamin D less than 20 ng/mL (1,2).The Endocrine Society went on to further define vitamin Dinsufficiency as a level between 21 and 29 ng/mL (2).1. IOM ([place] of Medicine). 2010. Dietary reference intakes for calcium and D. [place]: The National Academies Press.2. Seng MF, Theresa ROMERO, Kieran KOWALSKI, et al. Evaluation, treatment, and prevention of vitamin D deficiency: an Endocrine Society clinical practice guideline. JCEM. 2010; 96(7):1911-30. 77-Rxc-705513:37 BREAST UNILATERAL Radiology Report See Note (Normal) [...] Category 3: Probably Benign Finding - Initial Zthvi-LqxirmpyMjnawk-cw Suggested. Signed:Dashawn Rowe M.D.November 09, 2011 at 2:49:17 PM [id number] Signed GP/GP If you are the referring physician and would like to consult with theradiologist who provided this interpretation, please contact Herb blake M.D. at [phone]. If this radiologist is unavailable, youwill be directed to another radiologist to assist. If you are a patient with a question regarding this report, pleasecontactyour referri ng physician directly. Professional Interpretation Provided By: Wally, Phone , These documents contain legally protected [...] MD on 11/09/11 1456 Sign by: Dashawn oRwe MD 63-Dzm-091714:47 BREAST UNILATERAL Radiology Report See Note (Normal) [...] Category 3: Probably Benign Finding - Initial Hptav-KfxdnzpsUzhpvg-wl Suggested. To consult with a radiologist regarding this report, please call our [id number] line @ Dictated on 06/22/11 1428 by Taco Rowe MDbed on 06/22/11 1547 by ITS IMPORTSign by Dashawn Rowe MD on 06/22/11 1548 Sign by: ___ Dashawn Rowe MD 34-Fmm-545682:47 UNILAT LT DIAG DIGITAL & CAD Radiology [...] radiologist regarding this report, please call our [id number] line @ Dictated on 06/22/11 1357 by Taco Rowe MDbed on 1450 by ITS IMPORTSign by Dashawn Rowe MD on 06/22/11 1451 Sign by: Dashawn Rowe MD 9-Pfq-443804:14 CERV SPINE,MIN 4 VIEWS Radiology Report See [...] space narrowing or neural foraminalnarrowing. To consult w yvette a radiologist regarding this report, please call our 60U1xmjhomp line @ Dictated on 04/13/11 1408 by LISANDRA DUMONT MDTranscribed on 04/14/111627 by ITS IMPORTSign by Mook DUMONT MD on 04/14/119 Sign by: LISANDRA DUMONT MD 54-Qpx-12917:38 CBCD,SMEAR DIFF RED CELL MORPH SeeNote {NORMAL} [...] or = 500 mg/dL :38 VIT D,25 44035 47.8 ng/mL (Normal) Range: 30.0-100.0 Comments: Vitamin D deficiency has been defined by the [place] of[place]icine and an Endocrine Society practice guideline as alevel of serum 25-OH vitamin D less than 20 ng/mL (1,2).The Endocrine Society went on to further define vitamin Dinsufficiency as a level between 21 and 29 ng/mL (2).1. IOM ([place]). 2011. Dietary reference intakes for calcium and D. [place]: The National Academies Press.2. Seng MF, [place], Kieran KOWALSKI, et al. Evaluation, treatment, and prevention of vitamin D deficiency: an Endocrine Society clinical practice guideline. JCEM. 2010; 96(7): 1911-30.Performed at: [address] [id number] Director: Patito Segovia MD, Phone: [phone] :[phone] VITAMIN B12 781 pg/mL (Normal) Range: 254-1320 Comments: There is a low frequency possibility that high titers ofintrinsic blocking antibodies may not be completely inactivated during the reaction pretreatment stepof this testing method. If test results are i n conflictwith the clinical diagnosis, patient should be testedfor the presence of intrinsic factor blocking antibodies. 20-Bcl-464308:29 DEXA BONE DENSITY STUDY (HP) Comments: appt [...] 02/02/11 0843 Sign by: Dashawn Rowe MD 19-Uht-239206:03 Thin prep Pap Comments: Source.............Cervical;EndocervicalNo. of containers..01 CYTYC Thin Prep VialPERFORMED BY: [facility] [id number] Information: [id number] ([id number]) Note: PAPSMR (Normal) Comments: The Pap smear [...] (endocervical component) are present.V72.31 ; Routine gynecolog ica examina Deidre Aguila Healthcare Project Manager (ASCP) 70-Zcj-216152:01 BILAT SCRN DIGITAL & CAD Radiology Report [...] 11/10/10 1453 Sign by: Dashawn Rowe MD 70-Dnk-454878:16 COMP METABOLIC Comments: appt 11/05/10 GAP 10 [...] :16 TSH 0.99 {uIU/mL} (Normal) Range: 0.358-3.74 83-Ikp-921102:16 VIT D,25 59683 45.6 ng/mL (Normal) Range: 32.0-100.0 Comments: Recent studies consider the lower limit of 32.0 ng/mL to zoraida threshold for optimal health.Everardo HEREDIA. J Nutr. 2004;135(2):317-22.Performed at: - [facility] [id number]Lab Director: Patito Segovia MD, Phone: [phone] 53-Tnh-066998:16 VITAMIN B12 582 pg/mL (Normal) Range: 254-1320 Comments: There is a low frequency possibility that high titers ofintrinsic blocking antibodies may not be completely inactivated during the reaction pretreatment stepof this testing method. If test results are i n conflictwith the clinical diagnosis, patient should be testedfor the presence of intrinsic factor blocking antibodies. 35-Cai-775458:20 CBCD,SMEAR DIFF PLT EST SeeNote (Normal) Comments: [...] 4.2-5.4 WBC 5.4 K/mm3 (Normal) Range: 4.4-11.0 21-Xlq-122762:20 COMP METABOLIC GAP 9 (Normal) Range: 5-15 [...] {uIU/mL} (Normal) Range: 0.358-3.74 :20 VIT D,25 96439 43.2 ng/mL (Normal) Range: 32.0-100.0 Comments: Recent studies consider the lower limit of 32.0 ng/mL to zoraida threshold for optimal health.Mcgee BW. J Nutr. 2004;135(2):317-22.Performed at: [address] [id number]Lab Director: Patito Segovia MD, Phone: [phone] 81-Gob-261153:20 VITAMIN B12 516 pg/mL (Normal) Range: 254-1320 Comments: There is a low frequency possibility that high titers ofintrinsic blocking antibodies may not be completely inactivated during the reaction pretreatment stepof this testing method. If test results are i n conflictwith the clinical diagnosis, patient should be testedfor the presence of intrinsic factor blocking antibodies. :44 VIT D,25 79927 38.6 ng/mL (Normal) Range: 32.0-100.0 Comments: Recent studies consider the lower limit of 32.0 ng/mL to zoraida threshold for optimal health.Mcgee BW. J Nutr. 2004;135(2):317-22.Performed at: [facility] [id number]Lab Director: Patito Segovia MD, Phone: [phone] :44 VITAMIN B12 398 pg/mL (Normal) Range: [...] intrinsic factor blocking antibodies. :24 VITD 1,25 72122 57.3 pg/mL (Normal) Range: 10.0-75.0 Comments: Performed at: [facility] [place] [address] [place], [place] [id number] Director: Roderick Ramirez MD, Phone: [phone] :[phone] CBCD,SMEAR DIFF RED CELL MORPH SeeNote {NORMAL} [...] the presence of intrinsic factor blocking antibodies. 7-Fve-625247:16 MRA HEAD WITHOUT CONTRAST Radiology Report See Note (Normal) Comments: Exam Number: [id number] CLINICAL:69 year old female with numbness in [...] There is a fetalconfiguration of the right INSOLE AND HEEL STIFFENER. No definite P1 segment connectingthe artery to the basilar artery is identified. IMPRESSION:No demonstrated aneurysm. Anatomic variations of the [place]. 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 The rightinternal carotid arteries supplies the left VINAY territory, and islarger than the left internal carotid. 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 Reported By: DOMENICA MCGARRY M.D. 61-Bni-328151:41 BRAIN W/WO CONTRAST Radiology See Note Comments: Exam Number: [id number] CLINICAL: MRI BRAIN WITHOUT AND WITH CONTRAST [...] mild degenerative remodeling of the mandibular condyles.ADDENDUM: [id number] MRI/BRWW CLINICAL: MRI BRAIN WITHOUT AND WITH [...] 1 0 1 3 : 3 3 14-Ser-343983:33 SERUM CRE & GFR CREAT,SERUM 1.2 mg/dL (Abnormal) Range: 0.6-1.0 EST GFR 48 mL/min (Abnormal) EST GFR - AA 58 mL/min (Abnormal) :35 LIPID CHOL 188 mg/dL (Normal) Comments: <200 mg/dL Wocmjdlwd747-430 mg/dL Borderline>240 mg/dL High Risk HDL 54 [...] Range: 0.358-3.74 5 (Normal) :3 VIT D,25 78236 29.3 ng/mL (Abnormal) Range: 32.0-100.0 5 Comments: Recent studies consider the lower limit of 32.0 ng/mL to zoraida threshold for optimal health.Everardo HEREDIA. J Nutr. 2004;135(2):317-22.Performed at: [address], [place] [address] 296Lab Director: Patito Segovia MD, Phone: [phone] :[phone] VITAMIN B12 158 pg/mL (Abnormal) Range: 254-1320 5 Comments: There is a low frequency possibility that high titers ofintrinsic blocking antibodies may not be completelyinactivated during the reaction pretreatment stepof this testing method. If test results are in conflictwith the clinical diagnosis, patient should be testedfor the presence of intrinsic factor blocking antibodies. 74-Mbn-486524:17 ABDOMEN W/WO IV CONTRAST Radiology Report See Note (Normal) Comments: Exam Number: [id number] CLINICAL:Right upper quadrant pain CT ABDOMEN WITH [...] parapelvic renal cysts. Reported By: PRADIP FRANCO 82-Cio-663064:29 BMP BUN 16 mg/dL (Normal) Range: 7-18 [...] mg/dL (Normal) Range: 70-110 :37 VIT D,25 03632 26.3 ng/mL (Abnormal) Range: 32.0-100.0 Comments: Recent studies consider the lower limit of 32.0 ng/mL to zoraida threshold for optimal health.Everardo HEREDIA. J Nutr. 2004;135(2):317-22.Performed at: [address] [id number] Director: Ade Rubio MD 55-Hva-510832:36 GALLBLADDER (HP) Radiology Report See Note (Normal) Comments: Exam Number: [id number] LIMITED ABDOMINAL ULTRASOUND FOR GALLBLADDER HISTORYChest pain. [...] kidneyis suggested. Reported By: DOMENICA GATES M.D. 4-Jox-166847:21 Lipase (61777) Comments: PATIENT NOT FASTINGPERFORMED BY: [address] [id number] Lipase, Serum 42 U/L (Normal) Range: 0-59 2-Drf-097120:21 Amylase (89528) Comments: PATIENT NOT FASTINGPERFORMED BY: [address] [id number] Amylase, Serum 54 U/L (Normal) Range: 31-124 1-Kgl-795462:21 CBC WITH MANUAL DIFF Comments: PATIENT NOT FASTINGPERFORMED BY: [address] [id number] Information: [id number] (19728) Baso (Absolute) 0.1 {x10E3/uL} (Normal) Range: 0.0-0.2 [...] 3.80-5.10 WBC 5.9 {x10E3/uL} (Normal) Range: 4.0-10.5 5-Pns-690785:21 METABOLIC PANEL, COMPREHENSIVE Comments: PATIENT NOT FASTINGPERFORMED BY: [facility]uybgh[facility] [id number] (24213) ALT (SGPT) 15 [iU]/L (Normal) Range: 0-40 [...] Comments: DR DAVIS ORDERED CMP,CBCMD,CAROL,RF,TSH,CRP,SED,CCP,LIPIDDR VELLANKIORDEREDCMP,CBCD,CRP,SED,VITD,CCP,HEPBSAB,HEPBSAG,HEPC,CAROL,RF,HEPBCORE IGM,UA [id number] CAROL-DIRECT SeeNote (Normal) Comments: Result: Negative :48 ANTI-CCP 448963 4 {units} (Normal) Comments: DR DAVIS ORDERED [...] T PROT 6.9 g/dL (Normal) Range: 6.4-8.2 69-Qml-46505:48 COMPLETE Comments: DR DAVIS ORDERED CMP,CBCMD,CAROL,RF,TSH,CRP,SED,CCP,LIPIDDR VELLANKIORDEREDCMP,CBCD,CRP,SED,VITD,CCP,HEPBSAB,HEPBSAG,HEPC,CAROL,RF,HEPBCORE [...] mm/h (Normal) Range: 0-30 :48 HB CORE [id number] SeeNote (Normal) Comments: DR DAVIS ORDERED CMP,CBCMD,CAROL,RF,TSH,CRP,SED,CCP,LIPIDDR VELLANKIORDEREDCMP,CBCD,CRP,SED,VITD,CCP,HEPBSAB,HEPBSAG,HEPC,CAROL,RF,HEPBCORE IGM,UA Comments: Result: Negative Performed At: [facility] [place], [place] [id number] At: [address] [phone] :48 HBsAg Comments: DR DAVIS ORDERED CMP,CBCMD,CAROL,RF,TSH,CRP,SED,CCP,LIPIDDR [...] of antibody present. :48 HEP C AB 988116 0.1 (Normal) Comments: DR DAVIS ORDERED CMP,CBCMD,CAROL,RF,TSH,CRP,SED,CCP,LIPIDDR [...] VELLANKIORDEREDCMP,CBCD,CRP,SED,VITD,CCP,HEPBSAB,HEPBSAG,HEPC,CAROL,RF,HEPBCORE IGM,UA Range: 0.358-3.74 :48 VIT D,25 51862 18.0 ng/mL (Abnormal) Comments: DR DAVIS ORDERED CMP,CBCMD,CAROL,RF,TSH,CRP,SED,CCP,LIPIDDR VELLANKIORDEREDCMP,CBCD,CRP,SED,VITD,CCP,HEPBSAB,HEPBSAG,HEPC,CAROL,RF,HEPBCORE IGM,UA Range: 32.0-100.0 Comments: Recent studies consider the lower limit of 32.0 ng/mL to zoraida threshold for optimal health.Everardo HEREDIA. J Nutr. 2004;135(2):317-22. 1-Rqg-275015:10 BILAT SCRN DIGITAL & CAD Radiology Report See Note (Normal) Comments: Exam Number: [id number] MAMMOGRAM, BILATERAL SCREENING DIGITAL AND CAD HISTORYRoutine [...] (MQSA). The mammograms werealso examined with c Yilliouter-aided detection software ([employer] Reported By: DOMENICA GATES M.D. 0-Giv-633767:09 SPINE,LUMBAR (ROUTINE) Radiology Report See Note (Normal) Comments: Exam Number: [id number] CLINICAL:68-year-old female with low back pain for [...] Please see sequential details above. Reported By: BAM ORTIZ : FREE T3 2.4 pg/mL (Normal) Range: 2.18-3.98 14 : T4 FREE DIRECT 1.4 ng/dL (Abnormal) Range: 0.76-1.146 14 : TSH 0.94 {uIU/mL} Range: 0.358-3.74 14 (Normal) :28 L/S SPINE,MIN 4 VIEWS Radiology Report See Note (Normal) Comments: Exam Number: [id number] CLINICAL DATALow back pain, flank pain, right [...] disc disea se involving multiple levels from E6kgoyexk S1. There is degenerative hypertrophic change of [...] Report See Note (Normal) Comments: Exam Number: [id number] DORSAL SPINE Three images of the dorsal [...] middle dorsal spine. Reported By: HEATHER JACKSON 8-Bxz-514922:22 Urine Culture,Comprehensive Comments: Clinical Information: SRC:UR PERFORMED BY: L[facility] [id number] Result 1 NG36 (Normal) Comments: No growth in 36 - 48 hours. Urine Culture,Comprehensive Final report (Normal) :18 PELVIS WITHOUT IV CONTRAST Radiology Report See Note (Normal) Comments: Exam Number: [id number] CT SCANS OF ABDOMEN AND PELVIS HISTORYThe [...] Report See Note (Normal) Comments: Exam Number: [id number] CT SCANS OF ABDOMEN AND PELVIS HISTORYThe [...] the spine. Reported By: DOMENICA GATES M.D. 7-Orl-677701:1 C-REACTIVE PROT 4.05 mg/L (Abnormal) Range: 0.0-3.0 0 Comments: C-Reactive Protein (CRP) provides useful information for thediagnosis, therapy and monitoring of inflammatory processesand associated diseases. For the evaluation of Relative Riskfor Cardiovascular Dise ase, a High Sensitivity CRP (HSCRP)should be ordered. 7-Mzf-955835:10 CBCD,SMEAR DIFF ATYPICAL LYMPH 1+ % (Normal) [...] 47-70 WBC 8.2 K/mm3 (Normal) Range: 4.4-11.0 1-Lhc-182736:10 COMP METABOLIC A/G 1.4 {RATIO} (Normal) Range: [...] 6.4-8.2 GLU 84 mg/dL (Normal) Range: 70-110 0-Uvn-029350:10 ESR SED RATE 14 mm/h (Normal) Range: 0-30 7-Xuk-935216:40 Urinalysis, Office (71167) UA - BILIRUBIN Negative (Normal) UA - BLOOD Non Hemolyzed Trace (Normal) UA - GLUCOSE Negative (Normal) UA - KETONES Negative mg/dL (Normal) UA - LEUKOCYTE ESTERASE Negative (Normal) Comments: aw UA - NITRITE Negative (Normal) UA - PH 6.0 (Normal) UA - PROTEIN Negative mg/dL (Normal) UA - SPECIFIC GRAVITY 1.010 (Normal) URINE UROBILINGN TUNDE TIMED Normal mg/dL (Normal) 0-Bcv-783310:28 URINE CESAR CULTURE-TUNDE COL Comments: PATIENT NOT FASTINGClinical Information: SRC:UR ADD [id number] PERFORMED BY: [facility] [facility] [id number] COUNT ([id number]) Result 1 MUG (Normal) Comments: Mixed urogenital flora10,000-25,000 colony forming units per mL Urine Final report (Normal) Culture,Comprehensive 0-Iyc-439403:09 Urinalysis, Office (94830) UA - BILIRUBIN Negative (Normal) UA - [...] mg/dL VLDL 16 mg/dL (Normal) Range: 5-40 1-Jnf-998859:59 LQD PAP [id number] Comments: CYTOLOGY INFORMATION:- CLINICAL INFORMATION: POSTMENOPAUSAL- DATE LMP/MENOPAUSE: MENOPAUSE- COLLECTION VIAL: Thin Prep Vial- TRANSMISSION TECHNICIAN SOURCE: CERVICAL/ENDOCERVICAL- COLLECTION TECHNIQUE: BRUSH/SPATULA ADEQ Comment (Normal) Comments: Satisfactory for evaluation. Endocervical and/or squamous metaplasticcells (endocervical component) are present. COMM . (Normal) DIAGN Comment (Normal) Comments: NEGATIVE FOR INTRAEPITHELIAL LESION AND MALIGNANCY. HPV RFLX Comment (Normal) Comments: The HPV DNA reflex criteria were not met with this specimenresult therefore, no HPV testing was performed. .Performed At: [address] [id number] PAPR Comment (Normal) Comments: The Pap smear is a screening test designed to aid in thedetection of premalignant and malignant conditions of theuterine cervix. It is not a diagnostic procedure andshould not be used as the sole means of detecting cervicalcancer. Both false-positive and false-negative reports dooccur. . PERFORM Comment (Normal) Comments: Diandra Bee, Healthcare Project Manager (ASCP) 83-Bch-948017:36 DEXA BONE DENSITY STUDY (HP) Radiology Report See Note (Normal) Comments: Exam Number: [id number] BONE DENSITOMETRY TECHNIQUE Bone densitometry of the [...] cardiovasculardisease. Reference: High risk CRP >3.0 mg/L 28-Tln-510968:12 CBCD,SMEAR DIFF BAND 1 % (Normal) Range: [...] 47-70 WBC 6.2 K/mm3 (Normal) Range: 4.4-11.0 86-Umj-179151:12 COMP METABOLIC A/G 1.5 {RATIO} (Normal) Range: [...] T PROT 6.1 g/dL (Abnormal) Range: 6.4-8.2 39-Idh-079104:12 FUNEZ A AB [id number] FUNEZ A TYPE 10 <1:8 (Normal) FUNEZ [...] and its performancecharacteristics have been determined by [employer]. Performance characteristics refer tothe analytical performance of the test. FUNEZ A TYPE 2 <1:8 (Normal) FUNEZ A TYPE 4 <1:8 (Normal) FUNEZ A TYPE 7 <1:8 (Normal) FUNEZ A TYPE 9 <1:8 (Normal) 42-Ktj-706349:12 ESR SED RATE 14 mm/h (Normal) Range: 0-30 03-Fbj-544639:12 RA LATEX 6502 7.1 {IU/mL} (Normal) Range: 0.0-13.9 Comments: Performed At: [facility] [place], [place] [id number] At: [facility] [address] [id number] 64-Avz-097916:12 TSH 0.16 {uIU/mL} (Abnormal) Range: 0.34-4.82 63-Thq-605776:21 PELVIS WITH CONTRAST Radiology Report See Note (Normal) Comments: Exam Number: [id number] CT ABDOMEN AND PELVIS WITH CONTRAST. CLINICAL [...] pericardial effusion. Reported By: TODD KENNEDY M.D. 13-Rjh-337034:11 ABDOMEN WITH CONTRAST Radiology Report See Note (Normal) Comments: Exam Number: [id number] CT ABDOMEN AND PELVIS WITH CONTRAST. CLINICAL [...] pericardial effusion. Reported By: TODD KENNEDY M.D. 01-Lgm-676599:38 MARCUS 45 U/L (Normal) Range: 25-115 65-Woi-814264:38 CBCD,SMEAR DIFF BAND 1 % (Normal) Range: [...] 47-70 WBC 5.9 K/mm3 (Normal) Range: 4.4-11.0 51-Lag-942664:38 LIPASE 190 U/L (Normal) Range: 114-286 60-Plt-926623:45 BILAT SCRN DIGITAL & CAD Radiology Report See Note (Normal) Comments: Exam Number: [id number] MAMMOGRAM, BILATERAL SCREENING DIGITAL AND CAD HISTORYRoutine [...] werealso exam ined with computer-aided detection software ([employer], [employer] Reported By: DOMENICA GATES M.D. :33 CHEST W/WO CONTRAST Radiology Report See Note (Normal) Comments: Exam Number: [id number] CT SCAN OF CHEST HISTORYLung nodule. Consecutive [...] 47-70 WBC 4.2 K/mm3 (Abnormal) Range: 4.4-11.0 :07 COMP METABOLIC A/G 1.5 {RATIO} (Normal) Range: [...] hypertension BMI 37.0-37.9, adult : Eprescribed prescriptions (G53) Indication: BMI 37.0-37.9, adult Nonsmoker : Eprescribed prescriptions (G53) Indication: Nonsmoker Essential hypertension : Eprescribed prescriptions (G8553) Indication: Essential hypertension DEFICIENCY, B-COMPLEX NEC : Eprescribed prescriptions (G53) Indication: DEFICIENCY, B-COMPLEX NEC BMI 37.0-37.9, adult : Eprescribed prescriptions (G53) Indication: BMI 37.0-37.9, adult [facility] : Eprescribed prescriptions (G53) Indication: [facility] Hip pain, right : Eprescribed prescriptions (G53) Indication: Hip pain, right Other vitamin B12 deficiency anemia : Eprescribed prescriptions (G53) Indication: Other vitamin B12 deficiency anemia DEFICIENCY, B-COMPLEX NEC : Eprescribed prescriptions (G53) Indication: DEFICIENCY, B-COMPLEX NEC Urinary frequency : Eprescribed prescriptions (G53) Indication: Urinary frequency Pre-operative exam (Renamed from Preoperative examination) : Eprescribed prescriptions (G53) Indication: Pre-operative exam (Renamed from Preoperative examination) Essential hypertension : Eprescribed prescriptions (G8553) Indication: Essential hypertension Abdominal pain, acute, right lower quadrant : Abdominal Pain: abdominal pain Indication: Abdominal pain, acute, right lower quadrant Abdominal pain, acute, right lower quadrant : Eprescribed prescriptions (G53) Indication: Abdominal pain, acute, right lower quadrant b12 deficiency : Eprescribed prescriptions (G53) Indication: b12 deficiency Vitamin D deficiency, unspecified : Eprescribed prescriptions (G53) Indication: Vitamin D deficiency, unspecified Hypercholesterolemia : Eprescribed prescriptions (G8553) Indication: Hypercholesterolemia Cystitis, acute : Water in diet, brief version Indication: Cystitis, acute UTI (lower urinary tract infection) : Follow up for urine check when back as nurse visit Indication: UTI (lower urinary tract infection) Vaginal itching : Follow [facility] Indication: Vaginal itching Low Back Pain (Renamed [...] Indication: Chest pain Chest pain : Reviewed Aprn Letter Indication: Chest pain Osteoarthritis, unspecified osteoarthritis [...] Hypercholesterolemia Planned Observations CBC W/AUTO DIFF WBC (05276)Indication: Prolonged QT interval On: 5-Pjv-569221:18 Request METABOLIC PANEL, COMPREHENSIVE (28198)Indication: Prolonged QT interval On: 2-Dcs-358739:18 Request VITAMIN B-12 (CYANOCOBALAMIN) (21212)Indication: DEFICIENCY, B-COMPLEX NEC On: 7-Feb-627091:18 Request TSH (05740)Indication: Acquired hypothyroidism On: :17 Request LIPOPROTEIN, BLD, BY NMR (72133)Indication: Hypercholesterolemia On: :17 Request VITAMIN B-12 (CYANOCOBALAMIN) (69677)Indication: DEFICIENCY, B-COMPLEX NEC On: :18 Request LIPID PANEL (12469)Indication: Hypercholesterolemia On: :18 Request CBC W/AUTO DIFF WBC (68542)Indication: Right flank pain On: :17 Request METABOLIC PANEL, COMPREHENSIVE (35436)Indication: Right flank pain On: :17 Request Vitamin D Hydroxy (98177)Indication: Vitamin D deficiency, unspecified On: :17 Request Urinalysis, Office (39919)Indication: Urinary frequency On: 23-Pqj-003034:22 Request VITAMIN B-12 (CYANOCOBALAMIN) (04954)Indication: Other vitamin B12 deficiency anemia On: :28 Request Comments: Lot:[id number]:04/29Dose:1mlRoute:IMSite:r arm Given By:TAVON signed Vitamin D Hydroxy (53768)Indication: Vitamin D deficiency, unspecified On: :42 Request LIPID PANEL (40597)Indication: Hypercholesterolemia On: :42 Request METABOLIC PANEL, COMPREHENSIVE (11698)Indication: Essential hypertension On: :36 Request TSH ([id number])Indication: Acquired hypothyroidism On: :36 Request CBC with auto diff (11024)Indication: Abdominal pain, acute, right lower quadrant On: 6-Elb-566877:06 Request METABOLIC PANEL, COMPREHENSIVE (73554)Indication: Abdominal pain, acute, right lower quadrant On: :06 Request Urinalysis, Office (53939)Indication: Low Back Pain (Renamed from LBP (low back pain)) On: 39-Flp-819329:09 Request Vitamin D Hydroxy (98963)Indication: Vitamin D deficiency, unspecified On: 73-Ygt-973847:32 Request METABOLIC PANEL, COMPREHENSIVE (88592)Indication: Essential hypertension On: :31 Request LIPID PANEL (79779)Indication: Hypercholesterolemia On: :31 Request TSH (78358)Indication: Acquired hypothyroidism On: :31 Request LIPID PANEL (16035)Indication: Hypercholesterolemia On: 5-Onc-221473:45 Request TSH (40532)Indication: Acquired hypothyroidism On: :44 Request METABOLIC PANEL, COMPREHENSIVE (69060)Indication: Essential hypertension On: :44 Request CBC, PLATELETS & AUT DIFF ([id number])Indication: DEFICIENCY, B-COMPLEX NEC On: :43 Request VITAMIN B-12 (CYANOCOBALAMIN) (96248)Indication: DEFICIENCY, B-COMPLEX NEC On: :43 Request Vitamin D Hydroxy (05521)Indication: Vitamin D deficiency, unspecified On: :43 Request IRON ([id number])Indication: Anemia On: 5-Anc-225482:42 Request Vitamin D Hydroxy (01723)Indication: Vitamin D deficiency, unspecified On: 6-Bqs-240232:36 Request VITAMIN B-12 (CYANOCOBALAMIN) (48242)Indication: DEFICIENCY, B-COMPLEX NEC On: 5-Aii-766905:35 Request CBC WITH MANUAL DIFF (41050)Indication: DEFICIENCY, B-COMPLEX NEC On: 0-Pkc-253249:35 Request METABOLIC PANEL, COMPREHENSIVE (06860)Indication: Essential hypertension On: 3-Wmi-236995:35 Request T3, FREE (TRIDOTHYRONINE) (60453)Indication: Acquired hypothyroidism On: :35 Request T4, FREE (46636)Indication: Acquired hypothyroidism On: 1-Mms-199961:35 Request TSH (73683)Indication: Acquired hypothyroidism On: 5-Nde-633145:34 Request TSH (28796)Indication: Acquired hypothyroidism On: 89-Atv-910611:23 Request Comments: recheck in 6 weeks Metabolic Panel, Basic (32391)Indication: Essential hypertension On: 86-Mvu-586472:16 Request TSH ([id number])Indication: Acquired hypothyroidism On: 03-Kwa-826313:22 Request C-REACTIVE PROTEIN (79412)Indication: right lower quadrant pain On: 10-Zte-991210:51 Request SED RATE ERYTHROCYTE (58067)Indication: right lower quadrant pain On: 33-Ida-530554:51 Request Magnesium (73599)Indication: Leg cramps On: :43 Request CBC WITH MANUAL DIFF (05714)Indication: Edema leg On: :42 Request LIPID PANEL (05131)Indication: Hypercholesterolemia On: :41 Request METABOLIC PANEL, COMPREHENSIVE (72308)Indication: Essential hypertension On: :41 Request VITAMIN B-12 (CYANOCOBALAMIN) (23045)Indication: Other vitamin B12 deficiency anemia On: :41 Request Vitamin D Hydroxy (54080)Indication: Vitamin D deficiency, unspecified On: :41 Request Metabolic Panel, Basic (81717)Indication: Acute renal failure, unspecified acute renal failure type On: :31 Request TSH (14908)Indication: Acquired hypothyroidism On: :30 Request LIPID PANEL (96865)Indication: Hypercholesterolemia On: :39 Request Vitamin D Hydroxy (80484)Indication: Vitamin D deficiency, unspecified On: :39 Request VITAMIN B-12 (CYANOCOBALAMIN) (23340)Indication: Other vitamin B12 deficiency anemia On: :39 Request CBC WITH MANUAL DIFF (72843)Indication: Other vitamin B12 deficiency anemia On: :39 Request METABOLIC PANEL, COMPREHENSIVE (93030)Indication: Essential hypertension On: :39 Request Vitamin D Hydroxy (47348)Indication: Vitamin D deficiency, unspecified On: :37 Request LIPID PANEL (30841)Indication: Hypercholesterolemia On: :37 Request TSH ([id number])Indication: Acquired hypothyroidism On: :37 Request CBC WITH MANUAL DIFF (76891)Indication: Essential hypertension On: :39 Request METABOLIC PANEL, COMPREHENSIVE (27939)Indication: Essential hypertension On: :39 Request VITAMIN B-12 (CYANOCOBALAMIN) (19310)Indication: b12 deficiency On: :39 Request LIPID PANEL (52334)Indication: Hypercholesterolemia On: :39 Request Vitamin D Hydroxy (46534)Indication: Vitamin D deficiency, unspecified On: :32 Request VITAMIN B-12 (CYANOCOBALAMIN) (81885)Indication: b12 deficiency On: :32 Request Vitamin D Hydroxy (17230)Indication: Vitamin D deficiency, unspecified On: :32 Request METABOLIC PANEL, COMPREHENSIVE (59800)Indication: Essential hypertension On: :32 Request LIPID PANEL (23347)Indication: Hypercholesterolemia On: :32 Request TSH (70348)Indication: Acquired hypothyroidism On: :32 Request CBC WITH MANUAL DIFF (47548)Indication: Essential hypertension On: :30 Request METABOLIC PANEL, COMPREHENSIVE (78378)Indication: Essential hypertension On: :29 Request VITAMIN B-12 (CYANOCOBALAMIN) (23710)Indication: DEFICIENCY, B-COMPLEX NEC On: :29 Request Vitamin D Hydroxy (82397)Indication: Vitamin D deficiency, unspecified On: :29 Request TSH (46529)Indication: Acquired hypothyroidism On: :29 Request LIPID PANEL (49894)Indication: Hypercholesterolemia On: :29 Request Vitamin B-12 (cyanocobalamin) (82003)Indication: b12 deficiency On: 09-Wib-701879:01 Request CALCIFIDIOL (33898) VIT D 25Indication: Vitamin D deficiency, unspecified On: 67-Zsx-979081:00 Request TSH (91602)Indication: Acquired hypothyroidism On: :34 Request LIPID PANEL (04332)Indication: Hypercholesterolemia On: :34 Request Metabolic Panel, Basic (50406)Indication: Essential hypertension On: 16-Jfa-749102:26 Request VITAMIN B-12 (CYANOCOBALAMIN) (34218)Indication: DEFICIENCY, B-COMPLEX NEC On: 78-Cml-956699:19 Request Vitamin D Hydroxy (13889)Indication: Vitamin D deficiency, unspecified On: 23-Npv-644927:19 Request VITAMIN D, 1, 25-DIHYDROXY (36019)Indication: Vitamin D deficiency, unspecified On: 6-Jip-519122:19 Request Comments: Vit D [place] Vitamin B-12 (cyanocobalamin) (10706)Indication: b12 deficiency On: 7-Ejo-322535:17 Request CBC WITH MANUAL DIFF ([id number])Indication: b12 deficiency On: 62-Egr-222064:17 Request VITAMIN B-12 (CYANOCOBALAMIN) (07279)Indication: b12 deficiency On: 12-Snb-129835:14 Request VITAMIN B-12 (CYANOCOBALAMIN) (31131)Indication: Vitiligo On: 88-Ycv-349677:37 Request LIPID PANEL (46548)Indication: Hypercholesterolemia On: 91-Hog-513733:33 Request TSH ([id number])Indication: Acquired hypothyroidism On: 89-Qvh-486308:32 Request Vitamin D Hydroxy (06025)Indication: Vitamin D deficiency, unspecified On: 29-Bwj-536351:31 Request METABOLIC PANEL, COMPREHENSIVE (12434)Indication: Essential hypertension On: 78-Gef-708793:42 Request Vitamin D Hydroxy (16934)Indication: Vitamin D deficiency, unspecified On: 19-Rog-941439:42 Request CAROL (ANTINUCLEAR ANTIBODY) (72471)Indication: Pain in unspecified joint On: :27 Request C-REACTIVE PROTEIN (23777)Indication: Pain in unspecified joint On: :27 Request CBC WITH MANUAL DIFF ([id number])Indication: Pain in unspecified joint On: :27 Request CCP ANTIBODY (99276)Indication: Pain in unspecified joint On: :27 Request METABOLIC PANEL, COMPREHENSIVE (03655)Indication: Pain in unspecified joint On: :27 Request RHEUMATOID FACTOR-QUANT (25690)Indication: Pain in unspecified joint On: : Request SED RATE ERYTHROCYTE (22747)Indication: Pain in unspecified joint On: :27 Request TSH (43722)Indication: Pain in unspecified joint On: :27 Request SED RATE ERYTHROCYTE (02932)Indication: flank pain On: :35 Request C-REACTIVE PROTEIN (14812)Indication: flank pain On: :35 Request METABOLIC PANEL, COMPREHENSIVE (76760)Indication: flank pain On: :35 Request CBC WITH MANUAL DIFF ([id number])Indication: flank pain On: :35 Request URINE CESAR CULTURE (TUNDE COL COUNT) (54086)Indication: flank pain On: :35 Request Thin prep Pap (45631)Indication: Well woman exam with routine gynecological exam On: 6-Svi-425777:09 Request CBC WITH MANUAL DIFF ([id number])Indication: Essential hypertension On: 04-Rlf-066441:02 Request METABOLIC PANEL, COMPREHENSIVE (41283)Indication: Essential hypertension On: 46-Ejq-838409:02 Request LIPID PANEL (20562)Indication: Hypercholesterolemia On: 84-Jqm-682773:02 Request METABOLIC PANEL, COMPREHENSIVE (49034)Indication: Essential hypertension On: 01-Tco-405346:18 Request TSH (56432)Indication: Acquired hypothyroidism On: 59-Pxw-496846:18 Request SED RATE ERYTHROCYTE (04171)Indication: Abdominal pain, acute, left upper quadrant On: 23-Gos-759113:09 Request C-REACTIVE PROTEIN (50536)Indication: Abdominal pain, acute, left upper quadrant On: 50-Cvk-394125:09 Request CBC WITH MANUAL DIFF (37951)Indication: edema On: 19-Jtv-449793:09 Request METABOLIC PANEL, COMPREHENSIVE (37734)Indication: edema On: 86-Ary-358310:09 Request TSH (50727)Indication: Acquired hypothyroidism On: 45-Ovj-322123:03 Request CBC WITH MANUAL DIFF (93652)Indication: Abdominal pain, acute, left upper quadrant On: 88-Giv-527916:22 Request Lipase (65431)Indication: Abdominal pain, acute, left upper quadrant On: 84-Wro-342870:22 Request Amylase (31239)Indication: Abdominal pain, acute, left upper quadrant On: 59-Qyk-949595:21 Request Thin prep Pap (27185)Indication: Well woman exam with routine gynecological exam On: 84-Mkt-849656:43 Request HEPATIC FUNCTION PANEL (38107)Indication: Hypercholesterolemia On: 78-Evb-822322:52 Request LIPID PANEL (23241)Indication: Hypercholesterolemia On: 34-Vjn-520306:52 Request CBC, PLATELETS & AUTO DIFF (22023)Indication: Leukopenia On: 42-Ups-081116:34 Request Planned Encounters Medical; DARRIAN 6 Month Fu - On: 03-Jul-2018 13:00 [facility] Fast DO, Kristine A Fast DO, Kristine A Planned Procedures DEXA SCAN AXIAL SKELETON ([id number])By: On: 02-Jan-2018 Intent Fast DO, Kristine A Fast DO, Kristine A Comments: mar - RenalBy: Fast DO, On: 02-Jan-2018 Intent Kristine A Fast DO, Kristine A Flu Vaccine (Quadrivalent) 48544Bk: On: 02-Jan-2018 Intent Fast DO, Kristine A Fast DO, Kristine A Comments: Lot #[id number]/30/2019Site-L dltd, IMDose prefilled syringegiven by: Melly reviewed and ABN signed ELECTROCARDIOGRAM, COMPLETE (ECG) On: 28-Aug-2017 Intent (66475)By: Fast DO, Kristine A Fast Comments: ekg showed normal sinus rhythym, normal axis, no acute st/t wave changes DO, Kristine A SCREENING DIGITAL TOMOSYNTHESIS OF On: 28-Aug-2017 Intent BREAST ([id number])By: Fast DO, Kristine A Fast DO, Kristine A B 12 Injection, 1000 mcg (J3420)By: On: 15-Mar-2017 Intent Visit, Nurse Comments: [id number]/[id number]/mlMlalanna, GR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 AUTOMATIC B 12 Injection, 1000 mcg (J3420)By: On: 22-Feb-2017 Intent Fast DO, Kristine A Fast DO, Kristine A Comments: lot: [id number]: 05/01site/route: L del/IMamt: 1mLVIS signed when applicableRAYMUNDO Huerta Flu Vaccine (Quadrivalent) 78045Tc: On: 17-Jan-2017 Intent Fast DO, Kristine A [...] (J3420)By: On: 12-Dec-2016 Intent Visit, Nurse Comments: 84345/2018R arm, IM1ml, 1000mcgML, GR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 AUTOMATIC B 12 Injection, 1000 mcg (J3420)By: On: [...] Kristine A Fast DO, Kristine A Comments: B12lot:[id number]:ite:lt deltroute:Imdose:1mlD.AYAD Jerez B 12 Injection, 1000 mcg (J3420)By: [...] armGiven By:TAVON signed DEXA SCAN AXIAL SKELETON (13026)By: On: 04-Apr-2016 Intent Fast DO, Kristine A Fast DO, Kristine A MRI LUMBAR SPINE W/O CONTRAST On: 04-Apr-2016 Intent (36252)By: Fast DO, Kristine A Fast DO, Kristine [...] A ELECTROCARDIOGRAM, COMPLETE (ECG) On: 11-Dec-2015 Intent (93602)By: Fast DO, Kristine A Fast Comments: ekg showed normal sinus rhythym, normal axis, no acute st/t wave changes DO, Kristine A B 12 Injection, 1000 mcg (J3420)By: On: 11-Dec-2015 Intent Hunter Jerez Comments: B12lot:6185exp:ite:lt deltroute:IMdose:1mlD.AYAD Jerez B 12 Injection, 1000 mcg (J3420)By: On: 05-Nov-2015 Intent Hunter Jerez Comments: B12lot:6155exp:18site:lt deltroute:ImDose:1mlD.AYAD Jerez B 12 Injection, 1000 mcg (J3420)By: [...] MAMMOGRAM, SCREENING, BOTH BREAST On: 21-Apr-2015 Intent (65169)By: Fast DO, Kristine A Fast DO, Kristine A B 12 Injection, 1000 mcg (J3420)By: On: 21-Apr-2015 Intent Fast DO, Kristine A Fast DO, Kristine A Comments: Lot:[id number]:11/27Dose:1mlRoute:IMSite:r arm Given By:TAVON signed B 12 Injection, 1000 mcg (J3420)By: On: 16-Mar-2015 Intent Fast DO, Kristine A Fast DO, Kristine A Comments: lot: [id number]: 06/27site/route: L del/IMamt: 1mLVIS signed when applicableRAYMUNDO Pichardo B 12 Injection, 1000 mcg (J3420)By: On: 09-Feb-2015 Intent Fast DO, Kristine A Fast DO, Kristine A Comments: B12lot:[id number]:06/27site:lt deltoidroute:IMdose:1mlDEMICK, SMA B 12 Injection, 1000 mcg (J3420)By: On: 15-Jan-2015 Intent Hunter Jerez Comments: B 12Lot:[id number]:3*17site:lt deltoidroute:IMdose:.5mlDEMICK, SMA B 12 Injection, 1000 mcg (J3420)By: On: 10-Dec-2014 Intent Fast DO, Kristine A Fast DO, Kristine A Comments: lot [id number] - see ANOOP Mcallister CT - Abdomen & Pelvis (IV Contrast On: 16-Sep-2014 Intent Needed)By: Fast DO, Kristine A Fast DO, Kristine A B 12 Injection, 1000 mcg (J3420)By: On: 16-Sep-2014 Intent Fast DO, Kristine A Fast DO, Kristine A Comments: Lot:[id number]:11.16Route:IMSite:R deltoidDose: 1 mLgiven by: Carlita Ariza CMA [...] 1,000 mcgSite: l dltdLocation; IMby: Prevnar 13 (55767)By: Fast , On: 24-Mar-2014 Intent Kirstine A Fast DO, Kristine A Comments: lot: [id number]: 3/16site/route: L del/IMamt: 0.5mLVIS signed when applicableRAYMUNDO Huerta Ultrasound - PelvisBy: Fast DO, On: 24-Mar-2014 Intent Kristine A Fast DO, Kristine A B 12 Injection, 1000 mcg (J3420)By: On: 24-Mar-2014 Intent Fast DO, Kristine A Fast DO, Kristine A Comments: lot: [id number]: 4/16site/route: R del/IMamt:1mlVIS signed when applicableChelsea, SERVICE DELIVERY CONSULTANT B 12 Injection, 1000 mcg (J3420)By: On: 24-Feb-2014 Intent Silvia Burton LPN Comments: lot: [id number]: 4.16Dose: 1,000 mcgSite: l dltdLocation; IMby: B 12 Injection, 1000 mcg (J3420)By: On: 22-Jan-2014 Intent Fast DO, Kristine A Fast DO, Kristine A Comments: lot [id number] 08/2015location L armroute imgiven by - msmith VIS and/or ABN signed B 12 Injection, 1000 mcg (J3420)By: On: 30-Dec-2013 Intent Fast DO, Kristine A Fast DO, Kristine A Comments: lot [id number] 05/2015location L armroute imgiven by - msmithVIS [...] Fast Comments: today DO, Kristine A EKG (97315)By: Fast DO, Kristine A On: 05-Nov-2013 Intent Fast DO, Kristine A Comments: ekg showed normal sinus rhythym, normal axis, no acute st/t wave changes B 12 Injection, 1000 mcg (J3420)By: On: 05-Nov-2013 Intent Fast DO, Kristine A Fast DO, Kristine A Comments: Lot:[id number]:11/24Dose:1mlRoute:IMSite:l armGiven By:TAVON signed PHYSICAL THERAPY EVALUATION On: 18-Oct-2013 Intent (68008)By: Aquiles Potts CNP SPECIMEN HANDLING/TRANSPORT On: 18-Oct-2013 Intent (90888)By: Aquiles Potts CNP B 12 Injection, 1000 mcg (J3420)By: On: 11-Oct-2013 Intent Aquiles Potts CNP Comments: Lot:[id number]:11/2013Dose:1mlRoute:IMSite:enoch Martinezven By:TAVON signed B 12 Injection, 1000 mcg (J3420)By: On: 18-Sep-2013 Intent Fast DO, Kristine A Fast DO, Kristine A B 12 Injection, 1000 mcg (J3420)By: On: 07-Aug-2013 Intent Fast DO, Kristine A Fast DO, Kristine A Comments: lot: [id number]: ite/route: L del/IMamt: 1mLVIS signed when applicableChelsea, SERVICE DELIVERY CONSULTANT MAMMOGRAM, SCREENING, BOTH BREASTS On: 24-Jun-2013 Intent (24563)By: Fast DO, Kristine A Fast DO, Kristine A B 12 Injection, 1000 mcg (J3420)By: On: 24-Jun-2013 Intent Fast DO, Kristine A Fast DO, Kristine A Comments: Lot:[id number]:04/28Dose:1mlRoute:IMSite:enoch Pierre By:TAVON signed B 12 Injection, 1000 mcg (J3420)By: On: 15-May-2013 Intent Visit, Nurse Comments: Lot:[id number]:01/25Dose:1mlRoute:IMSite:enoch pachecoGiven By:TAVON signed B 12 Injection, 1000 mcg (J3420)By: On: 22-Apr-2013 Intent Fast DO, Kristine A Fast DO, Kristine A Comments: lot: [id number]: 01/25site/route: L deltoid/IMamt: 1mLVIS signed when applicableChelsea, SERVICE DELIVERY CONSULTANT B 12 Injection, 1000 mcg (J3420)By: On: 21-Mar-2013 Intent Fast DO, Kristine A Fast DO, Kristine A Comments: see flowsheetMegan PNEUM VAC ADLT/IMUMNOSPR, SBC/INTRM On: 18-Feb-2013 Intent (97081)By: Fast DO, Kristine A Fast Comments: Lot: [id number]: 83Uew87Vct: 0.5mlRoute: IMSite: L deltoidGiven by: ANOOP Moralez DO, Kristine A ADMINISTRATION OF PNEUMOCOCCAL On: 18-Feb-2013 Intent VACCINE (G0009)By: Fast DO, Kristine A Fast DO, Kristine A Eprescribed prescriptions On: 18-Feb-2013 Intent (G8553)By: Deanna Michelle B 12 Injection, 1000 mcg (J3420)By: On: 02-Jan-2013 Intent Deanna Michelle Comments: lot: [id number]: 10/25site/route: L deltoid/IMamt: 1mLVIS signed when applicableChelsea, SERVICE DELIVERY CONSULTANT B 12 Injection, 1000 mcg (J3420)By: On: [...] 08/24site/route: R deltoid/IMamt: 1mLVIS signed when applicableChelsea, SERVICE DELIVERY CONSULTANT B 12 Injection, 1000 mcg (J3420)By: On: 28-Aug-2012 Intent Fast DO, Kristine A Fast DO, Kristine A Comments: Lot #:[id number] date:mount given:1mlRoute: IMSite given: left deltoidGiven by: AYAD Dailey B 12 Injection, 1000 mcg (J3420)By: On: 23-Jul-2012 Intent Fast DO, Kristine A Fast DO, Kristine A Comments: Lot: [id number]: 02/23Amt: 1000mcg/1mlRoute: IMSite: L Deltoid per pt [...] A Fast DO, Kristine A Comments: lot: [id number]:02/23site/route: L deltoid/IMamt: 1ccVIS signed when applicableChelsea, SERVICE DELIVERY CONSULTANT B 12 Injection, 1000 mcg (J3420)By: On: 09-May-2012 Intent Kylee Castellon Comments: Lot:[id number]:02/2014Dose:1mlRoute:IMSite:L armGiven By:Jameson signed VENOUS DOPPLER LOWER EXTREMITY On: 18-Apr-2012 Intent (27574)By: Fast DO, Kristine A Fast DO, Kristine A Radiology - Hip - RightBy: Fast DO, On: 06-Apr-2012 Intent Kristine A Fast DO, Kristine A Comments: call results B 12 Injection, 1000 mcg (J3420)By: On: 06-Apr-2012 Intent Lisandra Chilel Comments: Lot #[id number]-89/14Site-left deltoidDose-1 mlgiven by: Omkar Rivera LPN Eprescribed prescriptions On: 06-Apr-2012 Intent (G8553)By: Lisandra Chilel Inhaler Demo (11340)By: Fast DO, On: 06-Feb-2012 Intent Kristine A Fast DO, Kristine A B 12 Injection, 1000 mcg (J3420)By: On: 06-Feb-2012 Intent Kylee Castellon Comments: Lot:[id number]:Dose:1mlRoute:IMSite:L armGiven By:TAVON signed MAMMOGRAM, SCREENING, BOTH BREASTS On: 06-Feb-2012 Intent (92073)By: Fast DO, Kristine A Fast DO, Kristine [...] 28-Sep-2011 Intent Yasmeen Rivera LPN Comments: Lot #[id number]-01/23Site-right deltoidDose-1 mlgiven by: Omkar Rivera LPN B 12 Injection, 1000 mcg (J3420)By: On: 05-Sep-2011 Intent Yasmeen Rivera LPN Comments: Lot #[id number]-01/23Site-left deltoidDose-1 mlgiven by: Omkar Rivera LPN Breast Ultrasound - LeftBy: Fast On: 15-Aug-2011 Intent DO, Kristine A Fast DO, Kristine A Comments: 6-8 weeks Breast Diagnostic - LeftBy: Fast On: 15-Aug-2011 Intent DO, Kristine A Fast DO, Kristine A Comments: 6-8 weeks INJECTION, VITAMIN B-12 On: 29-Jul-2011 Intent CYANOCOBALAMIN, UP TO 1000 MCG (Special Coverage Instructions Apply. See CIM: 45-4 and [facility]: 2049) (J3420)By: Licha Almaguer LPN Breast Ultrasound - LeftBy: Ciesa On: 22-Jun-2011 Intent Aquiles DEWEY B 12 Injection, 1000 mcg (J3420)By: On: 22-Jun-2011 Intent Ciesa Aquiles DEWEY Comments: Lot #[id number]-01/23Site-right deltoidDose-1 mlgiven by: Omkar Rivera LPN Breast Ultrasound - LeftBy: Ciesa On: 22-Jun-2011 Intent Aquiles DEWEY Comments: today if possible Breast Diagnostic - LeftBy: Ciesa On: 22-Jun-2011 Intent Aquiles DEWEY Comments: today if possible B 12 Injection, 1000 mcg (J3420)By: On: 09-May-2011 Intent Mast Phyllis MUELLER Comments: Lot #: [id number] Expiration date: 10/23Amount given: 1 mlRoute: IMSite given: left deltoidGiven by: AMI Alcaraznurse administrator - Cervical SpineBy: Fast On: 13-Apr-2011 Intent DO, Kristine A Fast DO, Kristine A TD Injection , IM (46693)By: On: 13-Apr-2011 Intent Lisandra Cihlel Comments: received in 2005 B 12 Injection, 1000 mcg (J3420)By: On: 29-Mar-2011 Intent Kateryna Lunsford MD Comments: Lot #[id number]-8.13Site-Left arm, IMDose 0.5mlgiven by:Татьяна B 12 Injection, 1000 mcg (J3420)By: On: 08-Feb-2011 Intent Татьяна Vera LPN Comments: Lot [id number]#Exp-7.13Site-R arm, IMDose 1mlgiven by:Татьяна DXA, BONE DENSITY, AXIAL SKELETON On: 24-Jan-2011 Intent (32521)By: Lisandra Chilel Comments: post menopausal wihtout estrogen FLU VAC, SPLIT, >3 YEARS, INTRAMUSC On: 24-Jan-2011 Intent (24705)By: Lisandra Chilel Comments: received at [facility] B 12 Injection, 1000 mcg (J3420)By: On: 21-Dec-2010 Intent Licha Almaguer LPN INJECTION, VITAMIN B-12 On: 19-Nov-2010 Intent CYANOCOBALAMIN, UP TO 1000 MCG Comments: Lot:[id number]:04/25Amt:1mlRoute:IMSite:left deltGiven By: ANOOP Sotelo (Special Coverage Instructions Apply. See CIM: 45-4 and MCM: 9) (J3420)By: Vi Ramirez EKG (21303)By: Lisandra Chilel On: 05-Nov-2010 Intent Comments: ekg showed normal sinus rhythym, normal axis, no acute st/t wave changes MAMMOGRAM, SCREENING, BOTH BREASTS On: 05-Nov-2010 Intent (00812)By: Fast DO, Kristine A Fast DO, Kristine [...] 03-Jun-2010 Intent Yasmeen Rivera LPN Comments: Lot #[id number]/12Site-left deltoidDose-1 mlgiven by:[facility] IMMUNIZ ADMNIN, 1 VAC, SNGL/COMBO On: 19-Apr-2010 Intent (66480)By: Yasmeen Rivera LPN Comments: Lot #[id number]-5/19/12Site-left deltoidDose- 0.85mlgiven by:[facility] ZOSTER VACC, [place] (62441)By: Miguel On: 19-Apr-2010 Intent Yasmeen DAVALOS B 12 Injection, 1000 mcg (J3420)By: On: 19-Apr-2010 Intent Yasmeen Rivera LPN B 12 Injection, 1000 mcg (J3420)By: On: 22-Mar-2010 Intent Long Татьяна DAVALOS L Comments: Lot #[id number]-8/12Site-L arm, IMDose 1mlgiven by:Yasmeen MALDONADO, VITAMIN B-12 On: 25-Feb-2010 Intent CYANOCOBALAMIN, UP TO 1000 MCG Comments: injection given in left deltoid. Lot # [id number]. 1ml. Pt tolerated well. hh (Special Coverage Instructions Apply. See CIM: 45-4 and MCM: 2049) (J3420)By: Shania Rosario B 12 Injection, 1000 mcg (J3420)By: On: 25-Jan-2010 Intent Yasmeen Rivera LPN Comments: Lot #[id number]-left deltoidDose-1 mlgiven by:[facility] FLU VAC, SPLIT, >3 YEARS, INTRAMUSC On: 30-Dec-2009 Intent ([id number])By: Lisandra Chilel Comments: Lot #[id number]-left deltoidgiven by:[facility] B 12 Injection, 1000 mcg ([id number])By: On: 30-Dec-2009 Intent Lisandra Chilel Comments: Lot #[id number]-right deltoidDose-1 mlgiven by:[facility] Renal Duplex ScanBy: Fast DO, Kristine On: 30-Dec-2009 Intent A Fast DO, Kristine A IMMUNIZ ADMNIN, 1 VAC, SNGL/COMBO On: 30-Dec-2009 Intent ([id number])By: Lisandra Chilel B 12 Injection, 1000 mcg (J3420)By: On: 14-Dec-2009 Intent Shayna Harris Comments: Lot:[id number]:5/12Dose:1000mcg/1mlRoute:IMSite:right deltoid Given by: AYAD Gil B 12 Injection, 1000 mcg (J3420)By: On: 26-Nov-2009 Intent Phyllis Escobar RN Comments: documented in flowsheet B 12 Injection, 1000 mcg (J3420)By: On: 19-Oct-2009 Intent Yasmeen Rivera LPN Comments: Lot #[id number]/12Site-left deltoidDose-1 mlgiven by:[facility] B 12 Injection, 1000 mcg ([id number])By: On: 13-Oct-2009 Intent Shayna Harris Comments: Lot:[id number]:04/24Dose:1000mcg/1mlRoute:imSite:right sideGiven by: AYAD Gil B 12 Injection, 1000 mcg ([id number])By: On: 06-Oct-2009 Intent Fast DO, Kristine A Fast DO, Kristine A Comments: Lot #[id number]/24Site-right deltoidDose- 1 mlgiven by:[facility] MRI - BrainBy: Fast DO, Kristine A [...] do this week and call ressults EKG ([id number])By: Fast DO, Kristine A On: 17-Dec-2008 Intent Fast DO, Kristine A Comments: ekg showed normal sinus rhythym, normal axis, no acute st/t wave changes MAMMOGRAM, SCREENING, BOTH BREASTS On: 17-Dec-2008 Intent ([id number])By: Fast DO, Kristine A Fast DO, Kristine A MRI - Lumbar SpineBy: Fast DO, On: 17-Dec-2008 Intent Kristine A Fast DO, Kristine A FLU VAC, SPLIT, >3 YEARS, INTRAMUSC On: 17-Dec-2008 Intent ([id number])By: Lisandra Chilel Comments: Lot #:[id number] date:mount given:0.5mlRoute: IMSite given:left deltoidGiven by: AYAD Dailey ADMINISTRATION OF INFLUENZA VIRUS On: 17-Dec-2008 Intent VACCINE ([id number])By: Lisandra Chilel CT - Abdomen & Pelvis Stone On: 18-Aug-2008 Intent ProtocolBy: Kristine Davis DO A Antwan Comments: stat -call results Kristine MIX A Radiology - Chest- PA and LatBy: On: 24-Mar-2008 Intent Kristine Davis DO, DO, Kristine A Spirometry ([id number])By: Antwan MIX, On: 24-Mar-2008 Intent Kristine Davis DO Kristine A Comments: good effort and curve minimal decrease small airways ADMINISTRATION OF PNEUMOCOCCAL On: 17-Dec-2007 Intent VACCINE ([id number])By: Kristine Davis DO, DO Kristine A PNEUM VAC ADLT/IMUMNOSPR, SBC/INTRM On: 18-Dec-2007 Intent ([id number])By: Kristine Davis DO Comments: Lot #[id number] date:08/19Amount given:0.5mlRoute: IMSite given:left deltGiven by: AYAD Dailey DO Kristine A MAMMOGRAM, SCREENING, BOTH BREASTS On: 17-Dec-2007 Intent ([id number])By: Kristine Davis DO Comments: end of feb DO, Kristine A DXA, BONE DENSITY, AXIAL SKELETON On: 31-Oct-2007 Intent ([id number])By: Kristine Davis DO, DO Kristine A Echo CompleteBy: Antwan DO Kristine A On: 25-Jul-2007 Intent Antwan DO Kristine A Bio Z ([id number])By: Antwan MIX Kristine A On: 25-Jul-2007 Intent Antwan DO Kristine A Comments: good cardiac output and no excesive gfluid EKG ([id number])By: Kristine Davis DO A On: 25-Jul-2007 Intent Antwan DO Kristine A Comments: ekg showed normal sinus rhythym, normal axis, no acute st/t wave changes CT - Abdomen & Pelvis (IV Contrast On: 11-Jul-2007 Intent Needed)By: Adrianna Morgan DO MAMMOGRAM, SCREENING, BOTH BREASTS On: 27-Mar-2006 Intent ([id number])By: Adrianna Morgan DO Planned Medications Vitamin B-12 1000 MCG/ML Injection Solution Ordered: 30-Dec-2009 Pending Liasndra Chilel Vitamin B-12 1000 MCG/ML Injection Solution Ordered: 21-Apr-2015 Pending Fast DO, Kristine A Fast DO, Kristine A Vitamin B-12 1000 MCG/ML Injection Solution Ordered: 16-Mar-2015 Pending Fast DO, Kristine A Fast DO, Kristine A Vitamin B-12 1000 MCG/ML Injection Solution Ordered: 09-Feb-2015 Pending Fast DO, Kristine A Fast DO, [...] MCG/ML Injection Solution Ordered: 22-Apr-2014 Pending 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 [employer]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 [employer], Silvia Vitamin B-12 1000 MCG/ML Injection Solution Ordered: 24-Mar-2014 Pending Fast DO, Kristine A Fast DO, Kristine A Vitamin B-12 1000 MCG/ML Injection Solution Ordered: 24-Feb-2014 Pending Slarb [employer]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, Silvia Vitamin B-12 1000 MCG/ML Injection Solution [...] MCG/ML Injection Solution Ordered: 11-Dec-2015 Pending Emick, [place] Vitamin B-12 1000 MCG/ML Injection Solution Ordered: 05-Nov-2015 Pending Emick, [place] Vitamin B-12 1000 MCG/ML Injection Solution Ordered: [...] 1000 MCG/ML Injection Solution Ordered: 22-Jun-2011 Pending Delroy DEWEY, Judy Vitamin B-12 1000 MCG/ML Injection Solution Ordered: [...] 1000 MCG/ML Injection Solution Ordered: 03-Jun-2010 Pending Radhauskelly DAVALOS, Yasmeen Vitamin B-12 1000 MCG/ML Injection Solution Ordered: 19-Apr-2010 Pending Radhauszti GR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, Yasmeen Vitamin B-12 1000 MCG/ML Injection Solution Ordered: 22-Mar-2010 Pending Mike Vera LPNn Enoch Vitamin B-12 1000 MCG/ML Injection Solution Ordered: [...] 1000 MCG/ML Injection Solution Ordered: 31-Oct-2011 Pending Chani Carreon LPN Vitamin B-12 1000 MCG/ML Injection Solution [...] 1000 MCG/ML Injection Solution Ordered: 02-Dec-2011 Pending Chani Carreon LPN Vitamin B-12 1000 MCG/ML Injection Solution Ordered: 28-Sep-2011 Pending Miguel DAVALOSYasmeen Vitamin B-12 1000 MCG/ML Injection Solution Ordered: [...] she is trying to cut back on mobic to 3-4 times a week and using tumeric / tylenol and - more mobile on Biofuel[employer] days- cleo notices a difference Encounter Diagnosis: [...] went well- she saw Dr Mckeon in [facility] for pain management - had inje [...] procedure results: Saw D End: 05-May-2016 21:15 shelbi Lee(ortho) he said monitor back and get left [...] do a lot of walking Encounter Diagnosis: [facility] Wellness Physical, Nonsmoker, BMI 37.0-37.9, adult, Hip [...] procedure: (10 End: 10-Dec-2014 21:34 /19/15 at [facility] with dr Mahesh stokes) . There have been no problems with general anesthesia or blood/blood products. Prosthetics include: dentures (partial). Note for Preoperative evaluation: Lef t tka at [facility] on dec 29- Dr Stokes- having [...] scleroderma, leukopenia). 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
--- OUTSIDE RECORDS SUMMARY | 2018-06-01 23:33 | XMS RPT_ITS | Continuity of Care Document ---
:1940 Author Organization [facility] Address [address] [facility] [address] [place] [address] Phone Care Team Providers Name Role Phone [...] DO, Kristine A Start : 02-Mar-2016 Active Comments:[facility] report#[id number], df approved and given to pt-[facility] 03/02/16 Imipramine HCl 25 MG Oral Tablet 1 (one) Tablet qhs prn for 0 days Quantity: 30 {Tablet} Refills: 1 Ordered:14-Jul-2017 DO, Kristine AFast DO, Kristine A Start : 14-Jul-2017 Active Comments:verbally called to [facility] - cmanchak 5/4 Leg Cramps 7 to [...] cap daily (100 MG) Active Vitamin D3 79004 UNIT Oral Capsule 1 (one) Capsule once [...] : 11-Jul-2007 End : 08-Aug-2007 Discontinued Drisdol 46495 UNIT Oral Capsule 1 (one) Capsule once [...] days Quantity: 90 {Capsule_DR} Refills: 3 Ordered:08-Aug-2006 Liasndra Chilel Start : 08-Aug-2006 End : 08-Aug-2007 [...] Chilel End : 08-Aug-2007 Discontinued VITAMIN D, 98460QOTR (Oral Capsule) 1 cap q week (49420 UNIT) Start : 27-Mar-2013 End : 27-Mar-2013 Discontinued Comments:This order discontinued per [employer]. VITAMIN D, 39454XMPN (Oral Capsule) 1 cap Capsule q week [...] and Bladder Result: Comments: See Note; NOTES: [facility] Imaging Services [address] [place] [address] Kidney and Bladder MR#: [id number] Acct: [id number] Name: VIRGINIA URRUTIA Rep #: [id number] : 1940 F 77 From: Doug Sinclair DO PCP: Kristine Davis DO Status: REG CLI Study: Kidney and Bladder Date of Exam: 01/11/18 Exam# [id number] Ordering Dr: Kristine Davis DO STUDY: RENAL [...] Doug Sinclair DO at 23:00 EDT Tel [phone], Service support , CC: Kristine Davis DO Wagon Driver: Signed 11-Jan-2018 Kidney and Bladder Result: Comments: See Note; NOTES: [facility] Imaging Services [address] [place] [address] Kidney and Bladder MR#: [id number] Acct: [id number] Name: VIRGINIA URRUTIA Rep #: [id number] : 1940 F 77 From: Doug Sinclair DO PCP: Kristine Davis DO Status: REG CLI Study: Kidney and Bladder Date of Exam: 01/11/18 Exam# [id number] Ordering Dr: Kristine Davis DO ADDENDUM by Doug Sinclair DO on at 1954 ADDENDUM ADDENDUM: Comparison is made with October 07, 2013 renal ultrasound. The right re na l cystic lesions appear stable. New left renal cyst. Findings in the urinary bladder are new since the previous study. Electronically Signed: Doug Sinclair DO at 19:55 EST Tel [phone], [email or web address] support , 01/22/181954 Date cc: Kristine Davis [...] Doug Sinclair DO at 23:00 EDT Tel [phone], Service support [phone]- [phone], CC: Kristine Davis DO Wagon Driver: Signed 05-Oct-2017 TXT - Blood Flow Screening Result: Comments: See Note; NOTES: [facility] Cardiovascular Services [address] [place] [address] 10/02/17 0928 MR#: [id number] Acct: [id number] Name: VIRGINIA URRUTIA Rep #: [id number] [...] DO Date Dictated: 10/02/1728 Date Transcribed: 10/05/171656 Wagon Driver: Signed 02-Oct-2017 SCREENING MAMM (CAD), BILAT Result: Comments: See Note; NOTES: [facility] Imaging Services [address] [place] [address] SCREENING MAMM (CAD), BILAT MR#: [id number] Acct: [id number] Name: URRUTIAVIRGINIA J Rep #: [id number] : 1940 F 76 From: Noel Avitia MD PCP: Kristine Davis DO Status: REG CLI Study: SCREENING MAMM (CAD), BILAT Date of Exam: 10/02/17 Exam# [id number] Ordering Dr: Kristine Davis DO MAMMOGRAPHY - [...] Service support , CC: Kristine Davis DO Wagon Driver: Signed 14-Sep-2016 Venous Duplex Lower Extremity Result: Comments: See Note; NOTES: [facility] Cardiovascular Services [address] [place] [address] Venous Duplex US, Unilateral 09/14/16 1558 MR#: [id number] Acct: [id number] Name: VIRGINIA YEH Rep #: [id number] : 1940 75 From: Johan Ortega MD [...] Dictated: 09/14/16 1558 Date Transcribed: 09/14/16 1715 Wagon Driver: Signed 23-Aug-2016 Re-Evaluation - PT (1) Result: Comments: See Note; NOTES: [facility] [address] [place] [address]. [address] [place] [address] Fax REEVALUATION / MEDICARE RECERTI MATTHIAS Zamora 4d PHYSICAL THERAPY MR#: [id number] Acct: [id number] Name: VIRGINIA URRUTIA Rep #: [id number] : 1940 75 From: Humberto Aguilar DPT, OCS, CSCS Referring DrDav: OUT OF [facility] DOCTOR Status : REG RCR Insurance: [facility] Out of [facility] Doctor, It has been my pleasure [...] do not hesitate to contact me at [phone] by phone or if you have questions or concerns regarding this new plan of care! Sincerely, Humberto Aguilar DPT, OC <Electronically signed by PACHECO Delacruz DPT, CSCS> 08/23/16 0929 CC: Kristine Davis DO; OUT [facility] DOCTOR EBG Signed For Medicare only, by signing this I certify the plan of care. Physicians Signature Date 29-Jul-2016 Inital Evaluation (1) - PT Result: Comments: See Note; NOTES: [facility] [address] [place] [address]. [address] [place] [address] Fax REHABILITATION SERVICES INITIAL EVALUATION MR#: [id number] Acct: [id number] Name: VIRGINIA URRUTIA Rep #: [id number] : 1940 75 From: Humberto Aguilar DPT, PACHECO, CSCS Referring DrDav: OUT [facility] DOCTOR Status: REG RCR Insurance: [employer] [facility] Patient's Visit Information VIRGINIA URRUTIA is a 75 year old F referred to Physical Therapy by Out [facility] Doctor with a diagnosis of L knee [...] to be FAXED BACK to us at [phone] for Medica re purposes. Please let me [...] Department Summary Result: Comments: See Note; NOTES: [facility] Records Department [address] [place] [address] Emergency Department Summary MR#: [id number] Acct: [id number] Name: VIRGINIA URRUTIA Rep #: [id number] : 1940 75 From: Byron Harris MD [...] C: Kristine Davis DO T: NTS JOB: [id number] 04/19/164 <Electronically signed by Byron Harris MD> Date Byron Harris MD Cosigner Signature (If Indicated): Date CC: Kristine Davis DO Date Dictated: 04/15/16 0035 Date Transcrib ed: 04/15/16 0035 Wagon Driver: Signed 15-Apr-2016 Discharge Instruction Result: Comments: See Note; NOTES: [facility] Medical Records Department [address] [place] [address] Discharge Instruction 04/14/16 2307 MR#: [id number] Acct: [id number] Name: VIRGINIA URRUTIA Rep #: [id number] : 1940 75 From: Byron Harris MD [...] your Primary Care Provider. Call Doctors Registry ([phone]) or report to the closest Emergency Room. Call 911 if necessary. 04/15/16 0118 &#6 0;Electronically signed by Byron Harris MD> Date Byron Harris MD Cosigner Signature (If Indicated): Date CC: Kristine Davis DO 14-Apr-2016 Venous Duplex Imag/Limited/Uni Result: Comments: See Note; NOTES: [facility] Imaging Services [address] [place] [address] Verdana 4d Venous Duplex Imag/Limited/Uni MR#: [id number] Acct: [id number] Name: RHONA URRUTIA Rep #: [id number] : 1940 F 75 From: Doug Sinclair DO PCP: Kristine Davis DO Status: REG ER Study: Venous Duplex Imag/Limited/Uni Date of Exam: 04/14/16 Exam# [id number] Ordering Dr: Byron Harris MD STUDY: VENOUS [...] Doug Sinclair DO at 23:15 EST Tel [phone], Service support [phone], CC: Kristine Davis DO; Byron Harris MD Wagon Driver: Signed 13-Apr-2016 Spine Lumbar (Routine) Result: Comments: See Note; NOTES: [facility] Imaging Services [address] [place] [address] Verdana 4d Spine Lumbar (Routine) MR#: [id number] Acct: [id number] Name: VIRGINIA URRUTIA Kelly mortensen #: [id number] : 1940 F 75 From: Tiara Parsons MD PCP: Kristine Davis DO Status: REG CLI Study: Spine Lumbar (Routine) Date of Exam: 04/13/16 Exam# [id number] Ordering Dr: Kristine Davis DO STUDY: MRI [...] MD at 11:48 EST , Service support [phone], CC: Kristine Davis DO Wagon Driver: Signed 12-Apr-2016 PT D/C Summary (1) Result: Comments: See Note; NOTES: [facility] [address] [place] [address]. [address] [place] [id number] Fax REHABILITATION SERVICES DISCHAR GE SUMMARY MR#: [id number] Acct: [id number] Name: VIRGINIA URRUTIA Rep #: [id number] : 1940 75 From: Humberto Aguilar DPT, OCS, CSCS Referring DrDav: Kristine Davis DO Status: REG R Insurance: [facility] - PT D/C Summary It has been my pleasure to treat VIRGINIA URRUTIA under orders from Kristine Davis DO, for the diagnosis of R hip pain for a total of 12 visit(s). Discharge Date: [facility] information for a summary of [...] help or hurt it. Will be in [place] in May and will have L TKA [...] please feel free to call me at [phone]. Thank eric laureano for the referral of this patient. Sincerely, Humberto Aguilar DPT, OC <Electronically signed by Humberto BAXTERT, OCS, CSCS> 04/12/16 1621 CC: Kristine Davis DO EBG Signed 12-Apr-2016 Dexa Bone Density Study (HP) Result: Comments: See Note; NOTES: [facility] Imaging Services [address] [facility] [place] [address] Verd[place] 4d Dexa Bone Density Study (HP) MR#: [id number] Acct: [id number] Name: ENE URRUTIA Rep #: [id number] : 1940 F 75 From: Dashawn Rowe MD PCP: Kristine Davis DO Status: REG CLI Study: Dexa Bone Density Study (HP) Date of Exam: 04/12/16 Exam# [id number] Ordering Dr: Magallanes DO STUDY: DUAL ENERGY [...] Dashawn Rowe MD at 14:32 EST Tel [phone], Service support [phone], CC: Kristine Davis DO Wagon Driver: Signed 10-Mar-2016 Inital Evaluation (1) - PT Result: Comments: See Note; NOTES: [facility] [facility]. [address] [place] [phone] Fax REHABILITATION SERVICES INITIAL EVALUATION MR#: [id number] Acct: [id number] Name: VIRGINIA URRUTIA Rep #: [id number] : 1940 75 From: Jennifer Gongora DPT Referring Dr.: Kristine Davis DO Status: REG RCR Insurance: [facility] isabella's Visit Information VIRGINIA URRUTIA is [...] to be FAXED BACK to us at [phone] for Medicare purposes. Please let me know if there are questio ns or concerns regarding this plan of care. Physician Signature: Date: <Electronically signed by Jennifer Gongora DPT> 1243 CC: Kristine Davis DO ELR Signed For Medicare only, by signing this I certify the plan of care. Physicians Signature Date 17-Dec-2015 Echocardiogram Complete Result: Comments: See Note; NOTES: [facility] Cardiovascular Services [address] [place] [address] Echo Complete 12/17/15 1401 MR#: [id number] Acct: [id number] Name: VIRGINIA URRUTIA Rep #: [id number] : 1940 75 From: Chicho Bahena MD Attending Dr: Kristine Davis DO Status: REG CLI Ordering Dr: Kristine Davis DO Date: 12/17/15 Location: [facility] Sex: F C Admitted: Reason For Study: [...] Date Dictated: 12/17/15 140 Date Transcribed: 12/17/151700 Wagon Driver: Signed 11-Dec-2015 Bilat Scrn Digital AND CAD Result: Comments: See Note; NOTES: [facility] Imaging Services [address] [place] [address] Verdana 4d Bilat Scrn Digital AND CAD MR#: [id number] Acct: [id number] Name: VIRGINIA URRUTIA Mook Rep #: [id number] : 1940 F 75 From: Dashawn Rowe MD PCP: Kristine Davis DO Status: REG CLI Study: Bilat Scrn Digital AND CAD Date of Exam: 12/11/15 Exam# [id number] Ordering Dr: Kristine Davis DO MAMMOGRAPHY - [...] delay biopsy of a clinically suspicious abnormality. [id number] Electronically Signed: Dashawn Rowe MD at 8:47 EDT Tel [phone], Service support [phone], CC: Kristine Davis DO Wagon Driver: Signed 03-Jan-2015 Emergency Department Summary Result: Comments: See Note; NOTES: [facility] Medical Records Department [address] [place] [address] Emergency Department Summary MR#: [id number] Acct: [id number] Name: VIRGINIA URRUTIA Rep #: [id number] : 1940 74 From: Ivette Cline PCP: [...] Angel Grossman C: Kristine Davis DO T: [facility] JOB: [id number] 01/03/15 1254 <Electronically signed b angle Cline > Date Ivette Cline Cosigner Signature (If Indicated): Date CC: Kristine Davis DO Date Dictated: 12/27/141108 Date Transcribed: 12/27/141108 Wagon Driver: Signed 27-Dec-2014 Discharge Instruction Result: Comments: See Note; NOTES: [facility] Medical Records Department [address] [place] [address] Discharge Instruction 12/27/14 1100 MR#: [id number] Acct: [id number] Name: VIRGINIA URRUTIA Rep #: [id number] : 1940 74 From: Ivette Cline PCP: [...] problems, contact your doctor. Call Doctors Registry ([phone]) or report to the closest Emergency Room. Call 911 if necessary. 12/27/141105 <Electronically signed by Ivette Cline > Date Ivette Cline Cosigner Signature (If Indicated): Date _ CC: Kristine Davis DO 27-Dec-2014 Spine Cervical without Contras Result: Comments: See Note; NOTES: [facility] Imaging Services [address] [place] [address] Verdana 4d Spine Cervical without Contras MR#: [id number] Acct: [id number] Na me: VIRGINIA URRUTIA Rep #: [id number] : 1940 F 74 From: Doug Sinclair DO PCP: Antwan DOKristine Status: REG ER Study: Spine Cervical without Contras Date of Exam: 12/27/14 Exam# [id number] Ordering Dr : Ivette Cline STUDY: CT [...] Doug Sinclair DO at 10:36 EDT Tel [phone], Service suppo rt [phone], CC: Ivette Cline; Kristine Davis DO Wagon Driver: Signed 23-Dec-2014 Emergency Department Summary Result: Comments: See Note; NOTES: [facility] Medical Records Department [address] [facility] [place] [address] Emergency Department Summary MR#: [id number] Acct: [id number] Name: VIRGINIA URRUTIA Rep #: [id number] : 1940 74 From: Se Dawkins MD [...] acute. Se Dawkins MD T: NTS JOB: [id number] 12/23/14 0800 <Electronically signed by Se Dawkins MD> Date Se Dawkins MD Cosigner Signature (If Indicated): Date CC: Kristine Davis DO Date Dictated: 12/23/14707 Date Transcribed: 12/23/14707 Wagon Driver: Signed 23-Dec-2014 Discharge Instruction Result: Comments: See Note; NOTES: [facility] Medical Records Department [address] [place] [address] Discharge Instruction 12/23/14704 MR#: [id number] Acct: [id number] Name: VIRGINIA URRUTIA Rep #: [id number] : 1940 74 From: Se Dawkins MD [...] problems, contact your doctor. Call Doctors Registry ([phone]) or r eport to the closest Emergency Room. Call 911 if necessary. 12/23/14705 <Electronically signed by Se Dawkins MD> Date Se collins MD Cosigner Signature (If Indicated): Date CC: Kristine Davis DO 10-Dec-2014 ELECTROCARDIOGRAM, COMPLETE (ECG) (04195) Result: [MEASUREMENTS ANALYSIS] Date of Test: 12/10/2014 10:23:24; Heart Rate: 91; DE Interval: 144; QRS: 96; QT Interval: 372; Corrected QT Interval (QTc): 426; P Wave [place]: 49; QRS [place]: 35; T Wave [place]: 30; Blood Pressure: 0/0 [ECG DIAGNOSTIC STATEMENTS] Date of Test: 12/10/2014 10:23:24; Summary: Sinus Rhythm Low voltage in limb leads. ABNORMAL 22-Sep-2014 Abdomen/Pelvis WITH Contrast Result: Comments: See Note; NOTES: [facility] Imaging Services [address] [place] [address] CAT Scan Report MR#: [id number] Acct: [id number] Name: VIRGINIA URRUTIA Rep #: [id number] : 1940 F 73 From: Rey Rojo MD PCP: Kristine Davis DO Status: REG CLI Study: Abdomen/Pelvis WITH Contrast Date of Exam: 09/22/14 Exam# [id number] Ordering Dr: Kristine Davis DO STUDY : [...] IMPRESSION: No CT evidence of an ac [place] intra-abdominal or pelvic process. Redemonstrated small multiple gallstones and bilateral renal cysts. Normal appendix. Electronically Signed: Rey Rojo MD at 16:58 EDT Te l [phone], Service support [phone], CC: Kristine Davis DO Wagon Driver: Signed 31-Mar-2014 Transvaginal Non- Result: Comments: See Note; NOTES: [facility] Imaging Services [address] [place] [address] Ultrasound Report MR#: [id number] Acct: [id number] Name: VIRGINIA URRUTIA Mook Rep #: [id number] : 1940 F 73 From: Dashawn Rowe MD PCP: Kristine Davis DO Status: REG CLI Study: Transvaginal Non- Date of Exam: 03/31/14 Exam# [id number] Ordering Dr: Kristine Davis DO STUD Y: [...] Dashawn Rowe MD at 13:55 EST Tel [phone], Service support [phone], F ax [phone] CC: Kristine Davis DO Wagon Driver: Signed 31-Mar-2014 Pelvic (Non ) Result: Comments: See Note; NOTES: [facility] Imaging Services [address] [place] [address] Ultrasound Report MR#: [id number] Acct: [id number] Name: VIRGINIA URRUTIA Rep #: [id number] : 1940 F 73 From: Dashawn Rowe MD PCP: Kristine Davis DO Status: REG CLI Study: Pelvic (Non ) Date of Exam: 03/31/14 Exam# [id number] Ordering Dr: Kristine Davis DO STUDY: U [...] Dashawn Rowe MD at 13:55 EST Tel [phone], Service support [phone], Fax CC: Kristine Davis DO Wagon Driver: Signed 22-Jan-2014 Bilat Scrleticia Digital & CAD Result: Comments: See Note; NOTES: [facility] Imaging Services [address] [place] [address] [place] [address] Breast Imaging Report MR#: [id number] Acct: [id number] Name: VIRGINIA URRUTIA Rep #: [id number] : 1940 F 73 From: Dashawn Rowe MD PCP: Kristine Davis DO Status: REG CLI Exam# [id number] Ordering Dr: Kristine Davis DO MAMMOGRAPHY - [...] Dashawn Rowe MD at 14:49 EST Tel [phone], Ser vice support [phone], CC: Kristine Davis DO Wagon Driver: Signed 07-Nov-2013 L/S Spine Min 4 Views Result: Comments: See Note; NOTES: [facility] Imaging Services [address] [place] [address] Radiology Report MR#: [id number] Acct: [id number] Name: VIRGINIA URRUTIA Rep #: [id number] : 1940 F 73 From: Tod Lamas MD PCP: Kristine Davis DO Status: REG CLI Study: L/S Spine Min 4 Views Date of Exam: 11/07/13 Exam# [id number] Ordering Dr: Kristine Davis DO STUDY: X-RA [...] at 18:52 EDT Tel , Service support [phone], CC: Kristine Davis DO Wagon Driver: Signed 07-Nov-2013 Thoracic Spine 3 Views Result: Comments: See Note; NOTES: [facility] Imaging Services [address] [place] [address] Radiology Report MR#: [id number] Acct: [id number] Name: VIRGINIA URRUTIA Rep #: [id number] : 1940 F 73 From: Tod Lamas MD PCP: Kristine Davis DO Status: REG CLI Study: Thoracic Spine 3 Views Date of Exam: 11/07/13 Exam# [id number] Ordering Dr: Kristine Davis DO STUDY: X-R [...] at 17:07 EDT Tel , Service support [phone], CC: Kristine Davis DO Wagon Driver: Signed 05-Nov-2013 Abdomen/Pelvis without Cont Result: Comments: See Note; NOTES: [facility] Imaging Services [address] [place] [address] CAT Scan Report MR#: [id number] Acct: [id number] Name: VIRGINIA URRUTIA Rep #: [id number] : 1940 F 73 From: Dashawn Rowe MD PCP: Kristine Davis DO Status: REG CLI Study: Abdomen/Pelvis without Cont Date of Exam: 11/05/13 Exam# [id number] Ordering Dr: Kristine Davis DO STUD Y: [...] Dashawn Rowe MD at 15:39 EDT Tel [phone], Service supp ort [phone], CC: Kristine Davis DO Wagon Driver: Signed 07-Oct-2013 Kidney and Bladder Result: Comments: See Note; NOTES: [facility] Imaging Services [address] [place] [address] Ultrasound Report MR#: [id number] Acct: [id number] Name: VIRGINIA URRUTIA Rep #: [id number] : 1940 F 72 From: Brook Cummings DO PCP: Kristine Davis DO Status: REG CLI Study: Kidney and Bladder Date of Exam: 10/07/13 Exam# [id number] Ordering Dr: Aquiles Potts STUDY: RENAL ULTRAS [...] , CC: Aquiles Potts; Kristine Davis DO Wagon Driver: Signed Immunization Name Dates Details Influenza (3 years and up) on: 17-Dec-2008 Comments: Lot #:[id number] date:mount given:0.5mlRoute: IMSite given:left deltoidGiven by: AYAD [...] smoker Vital Signs Date Test Result Details 23-Yga-387021:07 Temperature 97.9 f Comments: Method: Temporal Pulse [...] 0.00 cm Results Date Description Value Details 87-Kgt-099744:12 ANGTENSIN 1-CONVRT ENZYM Comments: PATIENT NOT FASTINGPERFORMED BY: [facility] [id number] BY: [employer] [address] [id number] (83860) YOSEF 30 U/L (Normal) Range: 14-82 44-Qih-353153:12 CCP ANTIBODY (56372) Comments: PATIENT NOT FASTINGPERFORMED BY: [facility] [id number] BY: [employer] [id number] CCP Antibodies IgG/IgA 8 {units} (Normal) Range: 0-19 Comments: Negative <20 Weak positive 20 - 39 Moderate positive 40 - 59 Strong positive >59 89-Wkh-345969:12 CAROL (ANTINUCLEAR ANTIBODY) Comments: PATIENT NOT FASTINGPERFORMED BY: [facility] [id number] BY: [employer] [id number] (98325) CAROL Direct Negative (Normal) 46-Ghx-012666:12 RHEUMATOID FACTOR-QUANT Comments: PATIENT NOT FASTINGPERFORMED BY: [facility] CenterOnDeckTammy [place] 25[address]370 [facility] [id number] BY: [address] [id number] (27450) RA Latex Turbid. <10.0 {IU/mL} (Normal) Range: 0.0-13.9 33-Cik-588825:12 SED RATE ERYTHROCYTE Comments: PATIENT NOT FASTINGPERFORMED BY: [facility] CenterOn[facility]ck[address] [id number] BY: [address] [id number] (84787) Sedimentation Rate-Westergren 15 mm/h (Normal) Range: 0-40 09-Jyp-620313:12 C-REACTIVE PROTEIN Comments: PATIENT NOT FASTINGPERFORMED BY: [employer] [id number] BY: [address] [id number] (09337) C-Reactive Protein, Quant 2.9 mg/L (Normal) Range: 0.0-4.9 90-Qes-666821:12 CBC, PLATELETS & AUT DIFF Comments: PATIENT NOT FASTINGPERFORMED BY: [address] [id number] BY: [address] [id number] (36041) Immature Grans (Abs) 0.0 {x10E3/uL} (Normal) Range: [...] 3.77-5.28 WBC 7.8 {x10E3/uL} (Normal) Range: 3.4-10.8 54-Kov-131386:12 VITAMIN B-12 Comments: PATIENT NOT FASTINGPERFORMED BY: UsingMilesAtlantic Rehabilitation InstituteYexxby3464 [facility] [id number] BY: [employer] [id number] (CYANOCOBALAMIN) (58017) Vitamin B12 579 pg/mL (Normal) Range: 232-1245 52-Xit-99343:31 LIPID PANEL (92126) Comments: PATIENT WAS FASTINGPERFORMED BY: UsingMilesAtl[facility] Rehabilitation InstituteLclzdn7958 [facility] [id number]; appt 01/02 LDL/HDL Ratio 1.9 {ratio} (Normal) [...] be changing to: Male Female 40 - 401608 50 - 944652 Triglycerides 145 mg/dL (Normal) Range: 0-149 Cholesterol, Total 240 mg/dL (Abnormal) Range: 100-199 40-Uud-67471:31 METABOLIC PANEL, COMPREHENSIVE Comments: PATIENT WAS FASTINGPERFORMED BY: [employer] Dvbbmb8254 [facility] HospitalFlirq[facility] [id number] (26368) ALT (SGPT) 16 [iU]/L (Normal) Range: 0-32 [...] 8-27 Glucose 98 mg/dL (Normal) Range: 65-99 44-Vcm-624800:13 METABOLIC PANEL, BASIC Comments: PATIENT NOT FASTINGPERFORMED BY: UsingMilesNorthern Navajo Medical CenterQztupe1188 [facility]Stage[facility] [id number]; review on 01/02 (40634) Calcium 9.9 mg/dL (Normal) Range: 8.7-10.3 Carbon [...] (Gamma Glutamyl Comments: PATIENT NOT FASTINGPERFORMED BY: [employer] Vbvwqm6117 [address] [place] [id number] Transferase) (85888) GGT 20 [iU]/L (Normal) Range: 0-60 :38 Alkaline Phosphatase (92574) Comments: PATIENT NOT FASTINGPERFORMED BY: [employer] Ussjst5405 [address] [place] [place] [id number] Alkaline Phosphatase 131 [iU]/L (Abnormal) Range: 39-117 :38 THYROXINE FREE (67493) Comments: PATIENT NOT FASTINGPERFORMED BY: [employer] Gzmaoq[address] [place] [id number] T4,Free(Direct) 1.92 ng/dL (Abnormal) Range: 0.82-1.77 23-Xob-194724:38 FREE TRIDOTHYRONINE (T3) (47077) Comments: PATIENT NOT FASTINGPERFORMED BY: [employer] Abnvsz1872 [address] [place] [id number] Triiodothyronine,Free,Serum 2.4 pg/mL (Normal) Range: 2.0-4.4 :38 VITAMIN B-12 (CYANOCOBALAMIN) Comments: PATIENT NOT FASTINGPERFORMED BY: Using[employer]iles Sjosoy027[address] [place] [id number] (62529) Vitamin B12 665 pg/mL (Normal) Range: 232-1245 92-Ybr-31538:06 VITAMIN B-12 (CYANOCOBALAMIN) Comments: PATIENT NOT FASTINGPERFORMED BY: [facility]6370 [facility] [id number] (17080) Vitamin B12 1301 pg/mL (Abnormal) Range: 232-1245 6-Jib-747697:25 Metabolic Panel, Comprehensive Comments: PATIENT NOT FASTINGPERFORMED BY: [facility]6370 [facility] [id number]; review on 08/28 (20022) ALT (SGPT) 10 [iU]/L (Normal) Range: 0-32 [...] 8-27 Glucose 84 mg/dL (Normal) Range: 65-99 5-Iui-868002:25 CBC WITH MANUAL DIFF (04645) Comments: PATIENT NOT FASTINGPERFORMED BY: UsingMiles [employer] [facility] [id number] Immature Grans (Abs) 0.0 {x10E3/uL} (Normal) Range: [...] 3.77-5.28 WBC 7.9 {x10E3/uL} (Normal) Range: 3.4-10.8 6-Qhg-174588:59 METABOLIC PANEL, COMPREHENSIVE Comments: PATIENT NOT FASTINGPERFORMED BY: Using[employer] Qpstea3508 [facility] [id number] (13237) ALT (SGPT) 10 [iU]/L (Normal) Range: 0-32 [...] 88 mg/dL (Normal) Range: 65-99 :46 TSH (19417) Comments: 6 weeks; PATIENT NOT FASTINGPERFORMED BY: [facility] Wecdyb8297 [facility] [id number] TSH 2.420 {uIU/mL} (Normal) Range: 0.450-4.500 :23 LIPID PANEL (14175) Comments: PATIENT WAS FASTINGPERFORMED BY: [facility] Eiwsvy5549 [facility] [id number] LDL/HDL Ratio 1.6 {ratio_units} (Normal) Range: 0.0-3.2 Comments: LDL/HDL Ratio Men Women 1/2 Avg.Risk 1.0 1.5 Av g.Risk 3.6 3.2 2X Avg.Risk 6.2 5.0 3X Avg.Risk 8.0 6.1 LDL Cholesterol Calc 125 mg/dL (Abnormal) Range: 0-99 VLDL Cholesterol Meliton 25 mg/dL (Normal) Range: 5-40 HDL Cholesterol 78 mg/dL (Normal) Triglycerides 124 mg/dL (Normal) Range: 0-149 Cholesterol, Total 228 mg/dL (Abnormal) Range: 100-199 68-Iza-02152:23 METABOLIC PANEL, COMPREHENSIVE Comments: PATIENT WAS FASTINGPERFORMED BY: [facility]CoAtl[facility] Rehabilitation InstituteUewosz2162 [facility] [id number] (87214) ALT (SGPT) 15 [iU]/L (Normal) Range: 0-32 [...] Range: 65-99 :23 CBC W/AUTO DIFF WBC (58879) Comments: PATIENT WAS FASTINGPERFORMED BY: [employer] Emypnw2338 [facility] [id number] Immature Grans (Abs) 0.0 {x10E3/uL} (Normal) Range: [...] (Normal) Range: 3.4-10.8 :23 Vitamin D Hydroxy (07523) Comments: PATIENT WAS FASTINGPERFORMED BY: [facility]CoAtl[facility] Rehabilitation InstituteTftazu3841 [facility] [id number] Vitamin D, 25-Hydroxy 41.5 ng/mL (Normal) Range: 30.0-100.0 Comments: Vitamin D deficiency has been defined by the [place] of[place]icine and an Endocrine Society practice guideline as alevel of serum 25-OH vitamin D less than 20 ng/mL (1,2).The Endocrine Society went on to further define vitamin Dinsufficiency as a level between 21 and 29 ng/mL (2).1. IOM ([place] of Medicine). 2010. Dietary reference intakes for calcium and D. [place]: The National Academies Press.2. Seng MF, Theresa ROMERO, Kieran KOWALSKI, et al. Evaluation, treatment, and prevention of vitamin D deficiency: an Endocrine Society clinical practice guideline. JCEM. 2010; 96(7):1911-30. :23 TSH (25337) Comments: PATIENT WAS FASTINGPERFORMED BY: Cuiker [facility] Orskaf8813 Oliva RoadDublin [place] [id number] TSH 0.429 {uIU/mL} (Abnormal) Range: 0.450-4.500 :23 VITAMIN B-12 (CYANOCOBALAMIN) Comments: PATIENT WAS FASTINGPERFORMED BY: Cuiker [facility] Cjzges9933 Oliva RoadDublin [place] [id number] (47382) Vitamin B12 553 pg/mL (Normal) Range: 211-946 9-Oyx-811387:52 CBC, PLATELETS & MANUAL DIFF Comments: PATIENT NOT FASTINGPERFORMED BY: Cuiker [facility] Rralrk7998 Oliva RoadDublin [place] [id number] (73852) Immature Grans (Abs) 0.0 {x10E3/uL} (Normal) Range: [...] 3.4-10.8 :09 Basic Metabolic Profile (BMP) Comments: [facility] Eyeiiljkdn6033 [facility] [place], [address] GAP 9 (Normal) Range: 5-15 CO2 29.0 [...] :09 CBC-Complete Blood Cnt No Diff Comments: [facility] Wasaylujic[address] [place], [address] MPV 9.1 fL (Normal) Range: 6.2-12.0 PLT [...] 5.7 K/mm3 (Normal) Range: 4.4-11.0 :53 Magnesium (50807) Comments: PATIENT NOT FASTINGPERFORMED BY: [facility] Qeuzqa9649 [facility] [id number] Magnesium, Serum 1.9 mg/dL (Normal) Range: 1.6-2.3 :53 METABOLIC PANEL, COMPREHENSIVE Comments: PATIENT NOT FASTINGPERFORMED BY: [facility] Wzvzib7302 [facility] [id number]; non- emergent till apt (73209) ALT (SGPT) 18 [iU]/L (Normal) Range: 0-32 [...] 83 mg/dL (Normal) Range: 65-99 :53 TSH (49014) Comments: PATIENT NOT FASTINGPERFORMED BY: CB [facility] Zrtwsh4807 [facility]in [place] [id number] TSH 1.810 {uIU/mL} (Normal) Range: 0.450-4.500 91-Qet-263619:15 Vitamin D Hydroxy (18370) Comments: PATIENT NOT FASTINGPERFORMED BY: CB [facility] Nviaol3278 [address] [facility]bl[facility] [place] [id number] Vitamin D, 25-Hydroxy 28.3 ng/mL (Abnormal) Range: 30.0-100.0 Comments: Vitamin D deficiency has been defined by the [place] ofMedicine and an Endocrine Society practice guideline as alevel of serum 25-OH vitamin D less than 20 ng/mL (1,2).The Endocrine Society went on to further define vitamin Dinsufficiency as a level between 21 and 29 ng/mL (2).1. IOM ([place] of Medicine). 2010. Dietary reference intakes for calcium and D. [place]: The National Academies Press.2. Segn MF, Theresa ROMERO, Kieran KOWALSKI, et al. Evaluation, treatment, and prevention of vitamin D deficiency: an Endocrine Society clinical practice guideline. JCEM. 2010; 96(7):1911-30. 10-Azg-424617:15 VITAMIN B-12 (CYANOCOBALAMIN) Comments: PATIENT NOT FASTINGPERFORMED BY: Accuris NetworksDuane L. Waters Hospital6370 [facility] [id number] (91447) Vitamin B12 447 pg/mL (Normal) Range: 211-946 83-Wsf-341723:15 CBC W/AUTO DIFF WBC Comments: PATIENT NOT FASTINGPERFORMED BY: Accuris NetworksDuane L. Waters Hospital6370 [facility] [id number] Information: SRC: (12452) Immature Grans (Abs) 0.0 {x10E3/uL} (Normal) Range: [...] 3.77-5.28 WBC 5.6 {x10E3/uL} (Normal) Range: 3.4-10.8 10-Fhs-618118:15 METABOLIC PANEL, COMPREHENSIVE Comments: PATIENT NOT FASTINGPERFORMED BY: LabCoAtl[facility] Rehabilitation InstituteZkovjl0758 [facility] [id number] (61022) ALT (SGPT) 13 [iU]/L (Normal) Range: 0-32 [...] Glucose, Serum 87 mg/dL (Normal) Range: 65-99 30-Gkh-086731:50 Urinalysis, Office (92809) UA - LEUKOCYTE ESTERASE Trace (Normal) UA - NITRITE Negative (Normal) URINE UROBILINGN TUNDE TIMED Normal mg/dL (Normal) UA - PROTEIN Negative mg/dL (Normal) UA - PH 5 (Abnormal) UA - BLOOD Negative (Normal) UA - SPECIFIC GRAVITY 1.025 (Normal) UA - KETONES Negative mg/dL (Normal) UA - BILIRUBIN Negative (Normal) UA - GLUCOSE Negative (Normal) 07-Wke-602906:15 URINE CESAR CULTURE (TUNDE COL Comments: PATIENT NOT FASTINGPERFORMED BY: [employer]Forms[employer]com70 [facility] [id number] COUNT) (77977) Result 1 MUG (Normal) Comments: Mixed urogenital floraGreater than 100,000 colony forming units per mL Urine Culture,Comprehensive Final report (Normal) 56-Ypi-212878:29 URINE CESAR CULTURE-IDENTIFICATN Comments: PATIENT NOT FASTINGPERFORMED BY: KCF Technologiesrp Mvuejv1940 [facility] [id number] Information: [id number] (64879) Result 1 MUG (Normal) Comments: Mixed urogenital flora1,000 Colonies/mL Urine Culture,Comprehensive Final report (Normal) 71-Lvn-451874:29 URINE CESAR CULTURE-TUNDE COL Comments: PATIENT NOT FASTINGPERFORMED BY: Cuiker [facility] Wqgyfy4486 [facility] [id number] Information: SRC:URC [id number] COUNT (29316) Result 1 MUG (Normal) Comments: Mixed urogenital flora25,000-50,000 colony forming units per mL Urine Final report (Normal) Culture,Comprehensive 22-Mlr-899742:07 Urinalysis, Office (16569) UA - LEUKOCYTE ESTERASE Small (Normal) UA - NITRITE Negative (Normal) URINE UROBILINGN TUNDE TIMED Normal mg/dL (Normal) UA - PROTEIN Negative mg/dL (Normal) UA - PH 5 (Abnormal) UA - BLOOD Hemolyzed Trace (Normal) UA - SPECIFIC GRAVITY 1.015 (Normal) UA - KETONES Negative mg/dL (Normal) UA - BILIRUBIN Negative (Normal) UA - GLUCOSE Negative (Normal) 6-Eoz-739803:02 URINE CESAR CULTURE (TUNDE Comments: PATIENT NOT FASTINGPERFORMED BY: [employer]uesheng[employer]com70 [facility] [id number] Information: SRC:[facility] [id number] COL COUNT) (41327) Result 1 NG36 (Normal) Comments: No growth in 36 - 48 hours. Urine Culture,Comprehensive Final report (Normal) 17-Sep-20149:51 CBC With Differential/Platelet Comments: PATIENT NOT FASTINGPERFORMED BY: UsingMiles Lwcile4208 [facility] [id number] Information: [id number] Immature Grans (Abs) 0.0 {x10E3/uL} (Normal) Range: [...] (14) Comments: PATIENT NOT FASTINGPERFORMED BY: [facility] Lqzpdc3088 [facility] [id number] ALT (SGPT) 11 [iU]/L (Normal) Range: 0-32 [...] (Normal) Range: 65-99 :13 SED RATE ERYTHROCYTE (51529) Comments: PATIENT WAS FASTINGPERFORMED BY: [facility]6370 [facility] [id number] Sedimentation Rate-Westergren 6 mm/h (Normal) Range: 0-40 :13 C-REACTIVE PROTEIN (05267) Comments: PATIENT WAS FASTINGPERFORMED BY: [facility]6370 [facility] [id number] C-Reactive Protein, Quant 2.2 mg/L (Normal) Range: 0.0-4.9 :13 CBC W/AUTO DIFF WBC Comments: PATIENT WAS FASTINGPERFORMED BY: Accuris NetworksDuane L. Waters Hospital6370 [facility] [id number] Information: [id number] (49366) Immature Grans (Abs) 0.0 {x10E3/uL} (Normal) Range: [...] 4.6 {x10E3/uL} (Normal) Range: 3.4-10.8 :13 TSH (51999) Comments: PATIENT WAS FASTINGPERFORMED BY: [employer]com70 [address] [facility] [id number] TSH 0.584 {uIU/mL} (Normal) Range: 0.450-4.500 03-Pef-436174:42 Urinalysis, Office (73121) UA - LEUKOCYTE ESTERASE Small (Normal) UA - NITRITE Negative (Normal) URINE UROBILINGN TUNDE TIMED Normal mg/dL (Normal) UA - PROTEIN Negative mg/dL (Normal) UA - PH 6 (Abnormal) UA - BLOOD Negative (Normal) UA - SPECIFIC GRAVITY 1.025 (Normal) UA - KETONES Negative mg/dL (Normal) UA - BILIRUBIN Negative (Normal) UA - GLUCOSE Negative (Normal) 91-Qov-836651:43 URINE CESAR CULTURE (TUNDE Comments: PATIENT NOT FASTINGPERFORMED BY: Cuiker LabEribis Pharmaceuticals6370 [facility] [id number] Information: SRC:UR [id number] COL COUNT) (69365) Result 1 MUG (Normal) Comments: Mixed urogenital flora25,000-50,000 colony forming units per mL Urine Final report (Normal) Culture,Comprehensive :13 Vitamin D Hydroxy (61972) Comments: PATIENT WAS FASTINGPERFORMED BY: Cuiker [facility] Afwobc5755 [facility] [id number] Vitamin D, 25-Hydroxy 38.7 ng/mL (Normal) Range: 30.0-100.0 Comments: Vitamin D deficiency has been defined by the [place] of[place]icine and an Endocrine Society practice guideline as alevel of serum 25-OH vitamin D less than 20 ng/mL (1,2).The Endocrine Society went on to further define vitamin Dinsufficiency as a level between 21 and 29 ng/mL (2).1. IOM ([place] of Medicine). 2010. Dietary reference intakes for calcium and D. [place]: The National Academies Press.2. Seng MF, Theresa [place], Kieran KOWALSKI, et al. Evaluation, treatment, and prevention of vitamin D deficiency: an Endocrine Society clinical practice guideline. JCEM. 2010; 96(7):1911-30. :13 LIPID PANEL (11238) Comments: PATIENT WAS FASTINGPERFORMED BY: [facility]6370 [facility] [id number] LDL/HDL Ratio 1.8 {ratio_units} (Normal) Range: 0.0-3.2 [...] PANEL, COMPREHENSIVE Comments: PATIENT WAS FASTINGPERFORMED BY: LabDuane L. [facility] Hospital6370 [facility] [id number] (26020) ALT (SGPT) 14 [iU]/L (Normal) Range: 0-32 [...] Glucose, Serum 86 mg/dL (Normal) Range: 65-99 21-Jsf-91366:13 VITAMIN B-12 (CYANOCOBALAMIN) Comments: PATIENT WAS FASTINGPERFORMED BY: [employer]com70 [address] [facility] [id number] (75490) Vitamin B12 >1999 pg/mL (Abnormal) Range: 211-946 31-Fbs-081288:00 Metabolic Panel, Basic Comments: 6 weeks; PATIENT NOT FASTINGPERFORMED BY: [employer] Bbirra9233 [facility] [id number] Information: [id number] (41966) Calcium, Serum 9.7 mg/dL (Normal) Range: 8.6-10.2 [...] Glucose, Serum 90 mg/dL (Normal) Range: 65-99 45-Iuv-467845:24 URINE CESAR CULTURE-IDENTIFICATN Comments: PATIENT NOT FASTINGPERFORMED BY: [facility]6370 [facility] [id number] Information: [id number] (39571) Result 1 ENTEGA (Abnormal) Comments: Enterococcus txafrdkmxo21,000-25,000 colony forming units per mLNote: For enterococci with intrinsic intermediate-level resistance tovancomycin, such as E. casseliflavus and E. gallinarum, VRE infection control measures are not applicable, per the CLSI (formerly NCCLS).For Enterococcus species, cephalosporins, aminoglycosides (except forhigh-level resistance screening), clindamycin, and trimethoprim-curtis lfamethoxazole are not effective clinically. Fluoroquinolones areused primarily for treating urinary tract infections. (CLSI, I247-M27,2009) S = Susceptible; I = Intermediate; R = Resistant * P = Positive; N = Negative MICS are expressed in micrograms per mL Antibiotic RSLT#1 RSLT#2 RSLT#3 RSLT#4Ciprofloxacin SGentami lien 500 SLevofloxacin SNitrofurantoin IPenicillin SStreptomycin 2000 STetracycline SVancomycin R Urine Final report (Abnormal) Culture,Comprehensive 83-Vpn-398053:51 METABOLIC PANEL, Comments: PATIENT NOT FASTINGPERFORMED BY: [facility]6370 [facility] [id number] Information: [id number] COMPREHENSIVE (73104) ALT (SGPT) 20 [iU]/L (Normal) Range: 0-32 [...] Glucose, Serum 80 mg/dL (Normal) Range: 65-99 05-Apr-135283:04 Microscopic Examination Comments: PATIENT NOT FASTINGPERFORMED BY: Hunt[employer] [facility]W[employer]![facility] [id number] Bacteria Few (Normal) Mucus Threads Present (Normal) Epithelial Cells (non renal) 0-10 {/hpf} (Normal) Range: 0 - 10 RBC None seen {/hpf} (Normal) Range: 0 - 2 WBC None seen {/hpf} (Normal) Range: 0 - 5 69-Esm-384234:04 URINE CESAR CULTURE (TUNDE COL Comments: PATIENT NOT FASTINGPERFORMED BY: [place]6[facility] [id number] COUNT) (28447) Antimicrobial MIHEAD (Normal) Comments: S = Susceptible; [...] mL (Abnormal) Urine Final report Culture,Comprehensive (Abnormal) 80-Ahp-768053:04 URINALYSIS, W/ MICRO Comments: PATIENT NOT FASTINGPERFORMED BY: [place] 1044770 [facility] [id number] Information: SRC: [id number] (78597) Microscopic Examination See below: (Normal) Comments: Microscopic was indicated and was performed. Microscopic Examination MICRON (Normal) Comments: Microscopic follows if indicated. Nitrite, Urine Negative (Normal) Bilirubin Negative (Normal) Urobilinogen,Semi-Qn 0.2 mg/dL (Normal) Range: 0.0-1.9 Ketones Negative (Normal) Occult Blood Negative (Normal) Glucose Negative (Normal) Protein Negative (Normal) WBC Esterase Negative (Normal) Appearance Clear (Normal) Urine-Color Yellow (Normal) pH 6.0 (Normal) Range: 5.0-7.5 Specific [place] 1.010 (Normal) Range: 1.005-1.030 66-Tdo-761371:00 METABOLIC PANEL, Comments: PATIENT NOT FASTINGPERFORMED BY: [facility]6370 [facility] [id number] Information: [id number] COMPREHENSIVE (34530) ALT (SGPT) 11 [iU]/L (Normal) Range: 0-32 [...] CHOL 200 mg/dL (Normal) Comments: <200 mg/dL Eflgfxxib479-000 mg/dL Borderline>240 mg/dL High Risk :26 TSH 1.85 {uIU/mL} (Normal) Range: 0.358-3.74 :26 VITD 72.9 mg/mL (Normal) Comments: will review at 11-05 appt Comments: Vitamin D 25(OH) Status RangeDeficiency <20 ng/mL (50nmol/L)Insuffciency 20 - 30 ng/mL (50 - 75 nmol/L)Sufficiency 30 - 100 ng/mL (75 - 250 nmol/L)Toxicity >100 ng/mL (>250 nmol/L) 9-Xih-146198:05 Urinalysis, Office (72918) UA - LEUKOCYTE ESTERASE Negative (Normal) UA - NITRITE Negative (Normal) URINE UROBILINGN TUNDE TIMED 2 mg/dL (Normal) UA - PROTEIN 30 mg/dL (Normal) UA - PH 6.0 (Normal) Comments: 5.5 UA - BLOOD Negative (Normal) UA - SPECIFIC GRAVITY 1.030 (Abnormal) UA - KETONES Small mg/dL (Normal) UA - BILIRUBIN Negative (Normal) UA - GLUCOSE Negative (Normal) 0-Dox-940778:33 URINE CESAR CULTURE-TUNDE COL Comments: PERFORMED BY: [place] [id number] COUNT (68957) Result 1 MUG (Normal) Comments: Mixed urogenital flora10,000-25,000 colony forming units per mL Urine Final report (Normal) Culture,Comprehensive 96-Efn-982947:52 URINE CESAR CULTURE-TUNDE COL Comments: PATIENT NOT FASTINGPERFORMED BY: KCF Technologiesrp [facility]De[facility] [id number] Information: SRC:UR [id number] COUNT (15512) Antimicrobial MIHEAD (Normal) Comments: S = Susceptible; [...] CHOL 203 mg/dL (Abnormal) Comments: <200 mg/dL Rdpgsnxfq999-676 mg/dL Borderline>240 mg/dL High Risk :47 TSH 1.52 {uIU/mL} (Normal) Range: 0.358-3.74 :47 VITD 59.3 mg/mL (Normal) Comments: Vitamin D 25(OH) Status RangeDeficiency <20 ng/mL (50nmol/L)Insuffciency 20 - 30 ng/mL (50 - 75 nmol/L)Sufficiency 30 - 100 ng/mL (75 - 250 nmol/L)Toxicity >100 ng/mL (>250 nmol/L) 1-Xpj-079729:44 CBC, PLATELETS & AUT DIFF Comments: PATIENT NOT FASTINGPERFORMED BY: [facility] Hlujwe9599 [facility] [id number] Information: [id number] (83917) Immature Grans (Abs) 0.0 {x10E3/uL} (Normal) Range: [...] 3.77-5.28 WBC 6.4 {x10E3/uL} (Normal) Range: 3.4-10.8 6-Ets-306565:44 FOLIC ACID SERUM (02956) Comments: PATIENT NOT FASTINGPERFORMED BY: Accuris NetworksDuane L. Waters Hospital6370 [facility] [id number] Folate (Folic Acid), Serum 14.4 ng/mL (Normal) Comments: A serum folate concentration of less than 3.1 ng/mL isconsidered to represent clinical deficiency. 6-Ttv-618830:44 RETICULOCYTE COUNT [facility] Comments: PATIENT NOT FASTINGPERFORMED BY: Accuris NetworksDuane L. Waters Hospital6370 [facility] [id number] (82360) Reticulocyte Count 1.1 % (Normal) Range: 0.6-2.6 0-Gkk-369495:44 LDH (LD) (LACTATE DEHYDROGENASE) Comments: PATIENT NOT FASTINGPERFORMED BY: [employer] Networks[address] [id number] (89168) LDH 250 [iU]/L (Abnormal) Range: 0-214 5-Ukp-027862:44 IRON BINDING CAPACITY (TIBC) Comments: PATIENT NOT FASTINGPERFORMED BY: Accuris NetworksDuane L. Waters Hospital6370 [facility] [id number] (93489) Iron Saturation 16 % (Normal) Range: 15-55 Iron, Serum 52 ug/dL (Normal) Range: 35-155 UIBC 270 ug/dL (Normal) Range: 150-375 Iron Bind.Cap.(TIBC) 322 ug/dL (Normal) Range: 250-450 :44 FERRITIN (34788) Comments: PATIENT NOT FASTINGPERFORMED BY: LISBETH [facility] Bhfshd7432 Hazel [facility]undersAt[facility] [id number] Ferritin, Serum 42 ng/mL (Normal) Range: 15-150 [...] Rowe M.D.July 23, 2012 at 2:35:49 PM [id number] Signed GP/GP If you are the referring physicia n and would like to consult with theradiologist who provided this interpretation, please contact Ofelia Rodriguez at [phone]. If this radiologist is unavailable, youwill be directed to [facility] radiologist to assist. If you are a patient with a question regarding this report, pleasecontactyour referring physician directly. Professional Interpretation Provided By: [employer], Phone , These documents contain legally protected [...] 3 1439 Sign by: Dashawn Rowe MD 7-Pgi-620511:59 KIDNEY Radiology Report See Note (Normal) Comments: [...] Welsh M.D.July 11, 2012 at 5:00:06 PM [id number] Signed TT/TT If you are the referring physician and would like to consult with theradiologist who provided this interpretation, please contact Brittney Mccormack M.D. at [phone]. If this radiologist is unavailable, youwillbe directed to another radiologist to assist. If you are a patient with a question regarding this report, pleasecontactyour referring physician directly. Professional Interpretat ion Provided By: [employer], Phone , These documents contain legally protected and confidential healthinformation intended only for the use of the individual or entity [facility]. If you are not the intended recipient, [...] on 07/11/121825 Sign by: Brittney Welsh MD 7-Uff-360874:59 TRANSVAGINAL NON- Radiology Report See Note (Normal) [...] Welsh M.D.July 11, 2012 at 4:45:28 PM [id number] Signed TT/TT If you are the referring physician and would like to consult with sebastian dunlap who provided this interpretation, please contact Brittney Mccormack M.D. at [phone]. If this radiologist is unavailable, youwillbe directed to another radiologist to assist. If you are a p atient with a question regarding this report, pleasecontactyour referring physician directly. Professional Interpretation Provided By: [employer], Phone , These documents contain legally protected [...] CHOL 210 mg/dL (Abnormal) Comments: <200 mg/dL Pdkxswllu179-521 mg/dL Borderline>240 mg/dL High Risk :44 MG 1.8 mg/dL (Normal) Range: 1.8-2.4 :44 SED tSEDRATE 18 mm/h (Normal) Range: 0-30 :44 TSH 8.94 {uIU/mL} (Abnormal) Range: 0.358-3.74 :44 VITD 90.8 ng/mL (Normal) Comments: Vitamin D 25(OH) Status RangeDeficiency <20 ng/mL (50nmol/L)Insufficiency 20 - 30 ng/mL (50 - 75 nmol/L)Sufficiency 30 - 100 ng/mL (75 - 250 nm ol/L)Toxicity >100 ng/mL (250 nmol/L)Effective 201204-Jul-201226-Yes-896640:29 ABDOMEN/PELVIS WITH CONTRAST Radiology Report See Note [...] to well characterize low-attenuation left renal lesion,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 Consider follow-up renal sonographyforfurther evaluation as clinically warranted. Signed:Matilda AvilesJuly 04, 2012 at 5:12:21 PM [id number] Signed DL/DL If you are the referring physician and would like to consult with theradiologist who provided this interpretation, please contact Ofelia Kyle at [phone]. If this radiologist is unavailable, youwillbe directed to another radiologist to assist. If you are a patient with a question regarding this report, pleasecontactyo ur referring physician directly. Professional Interpretation Provided By: [employer], Phone , These documents contain legally protected [...] on 07/04/121714 Sign by: Salinas Champion MD 75-Kzt-523656:18 CRE GFRAA 41 mL/min (Abnormal) GFR 34 mL/min (Abnormal) CREAT 1.6 mg/dL (Abnormal) Range: 0.6-1.0 06-Vgs-639134:15 BMP GAP 7 (Normal) Range: 5-15 CO2 [...] 7-18 GLU 80 mg/dL (Normal) Range: 70-110 26-Xgi-472401:15 TSH 3.05 {uIU/mL} (Normal) Range: 0.358-3.74 :22 B12 577 pg/mL (Normal) Range: 211-946 Comments: Performed at: [facility] [id number] Director: Patito Segovia MD, Phone: [phone] :[phone] CBCMD RBCM NORM C+C {NORMAL} (Normal) [...] D deficiency has been defined by the [place] of[place]icine and an Endocrine Society practice guideline as alevel of serum 25-OH vitamin D less than 20 ng/mL (1,2).The Endocrine Society went on to further define vitamin Dinsufficiency as a level between 21 and 29 ng/mL (2).1. IOM ([place] of Medicine). 2010. Dietary reference intakes for calcium and D. [place]: The National Academies Press.2. Seng MF, Theresa ROMERO, Kieran KOWALSKI, et al. Evaluation, treatment, and prevention of vitamin D deficiency: an Endocrine Society clinical practice guideline. JCEM. 2010; 96(7):1911-30. 55-Gqy-719521:37 BREAST UNILATERAL Radiology Report See Note (Normal) [...] Category 3: Probably Benign Finding - Initial Dnsgw-IaspikmxItekxp-qb Suggested. Signed:Dashawn Rowe M.D.November 09, 2011 at 2:49:17 PM [id number] Signed GP/GP If you are the referring physician and would like to consult with theradiologist who provided this interpretation, please contact Herb blake M.D. at [phone]. If this radiologist is unavailable, youwill be directed to another radiologist to assist. If you are a patient with a question regarding this report, pleasecontactyour referri ng physician directly. Professional Interpretation Provided By: [employer], Phone , These documents contain legally protected [...] 11/09/11 1456 Sign by: Dashawn Rowe MD 60-Ncz-491190:47 BREAST UNILATERAL Radiology Report See Note (Normal) [...] Category 3: Probably Benign Finding - Initial Bfgpm-QyjqbjeyKiaqou-iw Suggested. To consult with a radiologist regarding this report, please call our [id number] line @ Dictated on 06/22/11 1428 by Taco Rowe MDbed on 06/22/11 1547 by ITS IMPORTSign by Dashawn Rowe MD on 06/22/11 1548 Sign by: ___ Dashawn Rowe MD 56-Tfp-735767:47 UNILAT LT DIAG DIGITAL & CAD Radiology [...] radiologist regarding this report, please call our [id number] line @ Dictated on 06/22/11 1357 by Taco Rowe MDbed on 1450 by ITS IMPORTSign by Dashawn Rowe MD on 06/22/11 1451 Sign by: Dashawn Rowe MD 9-Fmp-892401:14 CERV SPINE,MIN 4 VIEWS Radiology Report See [...] radiologist regarding this report, please call our [id number] line @ Dictated on 04/13/11 1408 by LISANDRA DUMONT MDTranscribed on 04/14/111627 by ITS IMPORTSign by Mook DUMONT MD on 04/14/119 Sign by: LISANDRA DUMONT MD 62-Vnb-90190:38 CBCD,SMEAR DIFF RED CELL MORPH SeeNote {NORMAL} [...] or = 500 mg/dL :38 VIT D,25 97458 47.8 ng/mL (Normal) Range: 30.0-100.0 Comments: Vitamin D deficiency has been defined by the [place] of[place] and an Endocrine Society practice guideline as alevel of serum 25-OH vitamin D less than 20 ng/mL (1,2).The Endocrine Society went on to further define vitamin Dinsufficiency as a level between 21 and 29 ng/mL (2).1. IOM ([place] [employer]). 2011. Dietary reference intakes for calcium and D. [place]: The National Academies Press.2. Seng MF, Theresa [place], Kieran KOWALSKI, et al. Evaluation, treatment, and prevention of vitamin D deficiency: an Endocrine Society clinical practice guideline. JCEM. 2010; 96(7): 1911-30.Performed at: [address] [id number] Director: Patito Segovia MD, Phone: [phone] :[phone] VITAMIN B12 781 pg/mL (Normal) Range: 254-1320 Comments: There is a low frequency possibility that high titers ofintrinsic blocking antibodies may not be completely inactivated during the reaction pretreatment stepof this testing method. If test results are i n conflictwith the clinical diagnosis, patient should be testedfor the presence of intrinsic factor blocking antibodies. 56-Kbj-991797:29 DEXA BONE DENSITY STUDY (HP) Comments: appt [...] [email or web address] Dictated on 02/01/11 1532 by Phillip Roew MDribed on 02/02/11 0842 by ITS IMPORTSign by Dashawn Rowe MD on 02/02/11 0843 Sign by: Dashawn Rowe MD 52-Aad-530170:03 Thin prep Pap Comments: Source.............Cervical;EndocervicalNo. of containers..01 CYTYC Thin Prep VialPERFORMED BY: [facility] [id number] Information: [id number] ([id number]) Note: PAPSMR (Normal) Comments: The Pap smear [...] ; Routine gynecolog ica examina Deidre Aguila Quality Control Clerk (ASCP) 67-Suu-660977:01 BILAT SCRN DIGITAL & CAD Radiology Report [...] 11/10/10 1453 Sign by: Dashawn Rowe MD 18-Lkt-140878:16 COMP METABOLIC Comments: appt 11/05/10 GAP 10 [...] :16 TSH 0.99 {uIU/mL} (Normal) Range: 0.358-3.74 26-Til-582490:16 VIT D,25 24008 45.6 ng/mL (Normal) Range: 32.0-100.0 Comments: Recent studies consider the lower limit of 32.0 ng/mL to zoraida threshold for optimal health.Everardo HEREDIA. J Nutr. 2004;135(2):317-22.Performed at: - [facility] [id number] 296Lab Director: Patito Segovia MD, Phone: [phone] 22-Azy-635018:16 VITAMIN B12 582 pg/mL (Normal) Range: 254-1320 Comments: There is a low frequency possibility that high titers ofintrinsic blocking antibodies may not be completely inactivated during the reaction pretreatment stepof this testing method. If test results are i n conflictwith the clinical diagnosis, patient should be testedfor the presence of intrinsic factor blocking antibodies. 27-Qdz-325743:20 CBCD,SMEAR DIFF PLT EST SeeNote (Normal) Comments: [...] 4.2-5.4 WBC 5.4 K/mm3 (Normal) Range: 4.4-11.0 14-Uby-380274:20 COMP METABOLIC GAP 9 (Normal) Range: 5-15 [...] {uIU/mL} (Normal) Range: 0.358-3.74 :20 VIT D,25 16454 43.2 ng/mL (Normal) Range: 32.0-100.0 Comments: Recent studies consider the lower limit of 32.0 ng/mL to zoraida threshold for optimal health.Mcgee BW. J Nutr. 2004;135(2):317-22.Performed at: [address] [address] 296Lab Director: Patito Segovia MD, Phone: [phone] 75-Nij-044167:20 VITAMIN B12 516 pg/mL (Normal) Range: 254-1320 Comments: There is a low frequency possibility that high titers ofintrinsic blocking antibodies may not be completely inactivated during the reaction pretreatment stepof this testing method. If test results are i n conflictwith the clinical diagnosis, patient should be testedfor the presence of intrinsic factor blocking antibodies. :44 VIT D,25 46580 38.6 ng/mL (Normal) Range: 32.0-100.0 Comments: Recent studies consider the lower limit of 32.0 ng/mL to zoraida threshold for optimal health.Mcgee BW. J Nutr. 2004;135(2):317-22.Performed at: [facility] [employer] [id number] 296Lab Director: Patito Segovia MD, Phone: [phone] :44 VITAMIN B12 398 pg/mL (Normal) Range: [...] intrinsic factor blocking antibodies. :24 VITD 1,25 90360 57.3 pg/mL (Normal) Range: 10.0-75.0 Comments: Performed at: [facility] [place] [address] [place], [place] [id number] Director: Roderick Ramirez MD, Phone: [phone] :[phone] CBCD,SMEAR DIFF RED CELL MORPH SeeNote [...] the presence of intrinsic factor blocking antibodies. 4-Yie-520030:16 MRA HEAD WITHOUT CONTRAST Radiology Report See Note (Normal) Comments: Exam Number: [id number] CLINICAL:69 year old female with numbness in [...] There is a fetalconfiguration of the right TELLER. No definite P1 segment connectingthe artery to the basilar artery is identified. IMPRESSION:No demonstrated aneurysm. Anatomic variations of the [place]. 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 The rightinternal carotid arteries supplies the left [place] territory, and islarger than the left internal carotid. 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 Reported By: DOMENICA MCGARRY M.D. 97-Vzq-731717:41 BRAIN W/WO CONTRAST Radiology See Note Comments: Exam Number: [id number] CLINICAL: MRI BRAIN WITHOUT AND WITH CONTRAST [...] mild degenerative remodeling of the mandibular condyles.ADDENDUM: [id number] MRI/BRWW CLINICAL: MRI BRAIN WITHOUT AND WITH [...] 1 0 1 3 : 3 3 57-Bmh-588113:33 SERUM CRE & GFR CREAT,SERUM 1.2 mg/dL (Abnormal) Range: 0.6-1.0 EST GFR 48 mL/min (Abnormal) EST GFR - AA 58 mL/min (Abnormal) :35 LIPID CHOL 188 mg/dL (Normal) Comments: <200 mg/dL Notelzevr709-394 mg/dL Borderline>240 mg/dL High Risk HDL 54 [...] Range: 0.358-3.74 5 (Normal) :3 VIT D,25 93625 29.3 ng/mL (Abnormal) Range: 32.0-100.0 5 Comments: Recent studies consider the lower limit of 32.0 ng/mL to zoraida threshold for optimal health.Everardo HEREDIA. J Nutr. 2004;135(2):317-22.Performed at: [address], [place] [address] 296Lab Director: Patito Segovia MD, Phone: [phone] :[phone] VITAMIN B12 158 pg/mL (Abnormal) Range: 254-1320 5 Comments: There is a low frequency possibility that high titers ofintrinsic blocking antibodies may not be completelyinactivated during the reaction pretreatment stepof this testing method. If test results are in conflictwith the clinical diagnosis, patient should be testedfor the presence of intrinsic factor blocking antibodies. 03-Ser-355736:17 ABDOMEN W/WO IV CONTRAST Radiology Report See Note (Normal) Comments: Exam Number: [id number] CLINICAL:Right upper quadrant pain CT ABDOMEN WITH [...] parapelvic renal cysts. Reported By: PRADIP FRANCO 10-Fky-620724:29 BMP BUN 16 mg/dL (Normal) Range: 7-18 [...] mg/dL (Normal) Range: 70-110 :37 VIT D,25 63308 26.3 ng/mL (Abnormal) Range: 32.0-100.0 Comments: Recent studies consider the lower limit of 32.0 ng/mL to zoraida threshold for optimal health.Everardo HEREDIA. J Nutr. 2004;135(2):317-22.Performed at: [address] [id number] Director: Ade Rubio MD 45-Mql-979922:36 GALLBLADDER (HP) Radiology Report See Note (Normal) Comments: Exam Number: [id number] LIMITED ABDOMINAL ULTRASOUND FOR GALLBLADDER HISTORYChest pain. [...] kidneyis suggested. Reported By: DOMENICA GATES M.D. 9-Jal-779475:21 Lipase (96484) Comments: PATIENT NOT FASTINGPERFORMED BY: [address] [id number] Lipase, Serum 42 U/L (Normal) Range: 0-59 7-Qcv-361492:21 Amylase (78517) Comments: PATIENT NOT FASTINGPERFORMED BY: [address] [id number] Amylase, Serum 54 U/L (Normal) Range: 31-124 7-Glv-379178:21 CBC WITH MANUAL DIFF Comments: PATIENT NOT FASTINGPERFORMED BY: [address] [id number] Information: [id number] ([id number]) Baso (Absolute) 0.1 {x10E3/uL} (Normal) Range: 0.0-0.2 [...] 3.80-5.10 WBC 5.9 {x10E3/uL} (Normal) Range: 4.0-10.5 3-Rht-323599:21 METABOLIC PANEL, COMPREHENSIVE Comments: PATIENT NOT FASTINGPERFORMED BY: [facility] InstituteJfxlgz[facility] [id number] (11937) ALT (SGPT) 15 [iU]/L (Normal) Range: 0-40 [...] Comments: DR DAVIS ORDERED CMP,CBCMD,CAROL,RF,TSH,CRP,SED,CCP,LIPIDDR VELLANKIORDEREDCMP,CBCD,CRP,SED,VITD,CCP,HEPBSAB,HEPBSAG,HEPC,CAROL,RF,HEPBCORE IGM,UA [id number] CAROL-DIRECT SeeNote (Normal) Comments: Result: Negative :48 ANTI-CCP 016554 4 {units} (Normal) Comments: DR DAVIS ORDERED [...] T PROT 6.9 g/dL (Normal) Range: 6.4-8.2 69-Gsc-41668:48 COMPLETE Comments: DR DAVIS ORDERED CMP,CBCMD,CAROL,RF,TSH,CRP,SED,CCP,LIPIDDR VELLANKIORDEREDCMP,CBCD,CRP,SED,VITD,CCP,HEPBSAB,HEPBSAG,HEPC,CAROL,RF,HEPBCORE [...] mm/h (Normal) Range: 0-30 :48 HB CORE [id number] SeeNote (Normal) Comments: DR DAVIS ORDERED CMP,CBCMD,CAROL,RF,TSH,CRP,SED,CCP,LIPIDDR VELLANKIORDEREDCMP,CBCD,CRP,SED,VITD,CCP,HEPBSAB,HEPBSAG,HEPC,CAROL,RF,HEPBCORE IGM,UA Comments: Result: Negative Performed At: [facility] [place], [place] [id number] At: [facility] [phone] :48 HBsAg Comments: DR DAVIS ORDERED CMP,CBCMD,CAROL,RF,TSH,CRP,SED,CCP,LIPIDDR [...] of antibody present. :48 HEP C AB 755394 0.1 (Normal) Comments: DR DAVIS ORDERED CMP,CBCMD,CAROL,RF,TSH,CRP,SED,CCP,LIPIDDR [...] VELLANKIORDEREDCMP,CBCD,CRP,SED,VITD,CCP,HEPBSAB,HEPBSAG,HEPC,CAROL,RF,HEPBCORE IGM,UA Range: 0.358-3.74 :48 VIT D,25 76288 18.0 ng/mL (Abnormal) Comments: DR DAVIS ORDERED CMP,CBCMD,CAROL,RF,TSH,CRP,SED,CCP,LIPIDDR VELLANKIORDEREDCMP,CBCD,CRP,SED,VITD,CCP,HEPBSAB,HEPBSAG,HEPC,CAROL,RF,HEPBCORE IGM,UA Range: 32.0-100.0 Comments: Recent studies consider the lower limit of 32.0 ng/mL to zoraida threshold for optimal health.Everardo HEREDIA. J Nutr. 2004;135(2):317-22. 0-Yee-843057:10 BILAT SCRN DIGITAL & CAD Radiology Report See Note (Normal) Comments: Exam Number: [id number] MAMMOGRAM, BILATERAL SCREENING DIGITAL AND CAD HISTORYRoutine [...] (MQSA). The mammograms werealso examined with c Vello Systemsuter-aided detection software ([employer].). Reported By: DOMENICA GATES M.D. 3-Nqj-340915:09 SPINE,LUMBAR (ROUTINE) Radiology Report See Note (Normal) Comments: Exam Number: [id number] CLINICAL:68-year-old female with low back pain for [...] Report See Note (Normal) Comments: Exam Number: [id number] CLINICAL DATALow back pain, flank pain, right [...] disc disea se involving multiple levels from P3loftlxa S1. There is degenerative hypertrophic change of [...] Report See Note (Normal) Comments: Exam Number: [id number] DORSAL SPINE Three images of the dorsal [...] middle dorsal spine. Reported By: HEATHER JACKSON 8-Efl-578714:22 Urine Culture,Comprehensive Comments: Clinical Information: SRC:UR PERFORMED BY: [facility] [id number] Result 1 NG36 (Normal) Comments: No growth in 36 - 48 hours. Urine Culture,Comprehensive Final report (Normal) :18 PELVIS WITHOUT IV CONTRAST Radiology Report See Note (Normal) Comments: Exam Number: [id number] CT SCANS OF ABDOMEN AND PELVIS HISTORYThe [...] Report See Note (Normal) Comments: Exam Number: [id number] CT SCANS OF ABDOMEN AND PELVIS HISTORYThe [...] the spine. Reported By: DOMENICA GATES M.D. 1-Nxs-617964:1 C-REACTIVE PROT 4.05 mg/L (Abnormal) Range: 0.0-3.0 0 Comments: C-Reactive Protein (CRP) provides useful information for thediagnosis, therapy and monitoring of inflammatory processesand associated diseases. For the evaluation of Relative Riskfor Cardiovascular Dise ase, a High Sensitivity CRP (HSCRP)should be ordered. 0-Hol-884692:10 CBCD,SMEAR DIFF ATYPICAL LYMPH 1+ % (Normal) [...] 47-70 WBC 8.2 K/mm3 (Normal) Range: 4.4-11.0 0-Cch-502858:10 COMP METABOLIC A/G 1.4 {RATIO} (Normal) Range: [...] 6.4-8.2 GLU 84 mg/dL (Normal) Range: 70-110 8-Los-138550:10 ESR SED RATE 14 mm/h (Normal) Range: 0-30 5-Lnf-515785:40 Urinalysis, Office (68670) UA - BILIRUBIN Negative (Normal) UA - BLOOD Non Hemolyzed Trace (Normal) UA - GLUCOSE Negative (Normal) UA - KETONES Negative mg/dL (Normal) UA - LEUKOCYTE ESTERASE Negative (Normal) Comments: aw UA - NITRITE Negative (Normal) UA - PH 6.0 (Normal) UA - PROTEIN Negative mg/dL (Normal) UA - SPECIFIC GRAVITY 1.010 (Normal) URINE UROBILINGN TUNDE TIMED Normal mg/dL (Normal) 7-Ksb-348447:28 URINE CESAR CULTURE-TUNDE COL Comments: PATIENT NOT FASTINGClinical Information: SRC:UR ADD [id number] PERFORMED BY: [facility] [facility] [id number] COUNT ([id number]) Result 1 MUG (Normal) Comments: Mixed urogenital flora10,000-25,000 colony forming units per mL Urine Final report (Normal) Culture,Comprehensive 2-Dtz-572497:09 Urinalysis, Office (07831) UA - BILIRUBIN Negative (Normal) UA - [...] mg/dL VLDL 16 mg/dL (Normal) Range: 5-40 2-Ilg-037981:59 LQD PAP [id number] Comments: CYTOLOGY INFORMATION:- CLINICAL INFORMATION: POSTMENOPAUSAL- DATE LMP/MENOPAUSE: MENOPAUSE- COLLECTION VIAL: Thin Prep Vial- RN GASTROENTEROLOGY SOURCE: CERVICAL/ENDOCERVICAL- COLLECTION TECHNIQUE: BRUSH/SPATULA ADEQ Comment (Normal) Comments: Satisfactory for evaluation. Endocervical and/or squamous metaplasticcells (endocervical component) are present. COMM . (Normal) DIAGN Comment (Normal) Comments: NEGATIVE FOR INTRAEPITHELIAL LESION AND MALIGNANCY. HPV RFLX Comment (Normal) Comments: The HPV DNA reflex criteria were not met with this specimenresult therefore, no HPV testing was performed. .Performed At: [address] [id number] PAPR Comment (Normal) Comments: The Pap smear is a screening test designed to aid in thedetection of premalignant and malignant conditions of theuterine cervix. It is not a diagnostic procedure andshould not be used as the sole means of detecting cervicalcancer. Both false-positive and false-negative reports dooccur. . PERFORM Comment (Normal) Comments: Diandra Bee, Quality Control Clerk (ASCP) 34-Dxg-957297:36 DEXA BONE DENSITY STUDY (HP) Radiology Report See Note (Normal) Comments: Exam Number: [id number] BONE DENSITOMETRY TECHNIQUE Bone densitometry of the [...] cardiovasculardisease. Reference: High risk CRP >3.0 mg/L 86-Axz-466027:12 CBCD,SMEAR DIFF BAND 1 % (Normal) Range: [...] 47-70 WBC 6.2 K/mm3 (Normal) Range: 4.4-11.0 27-Cmr-551590:12 COMP METABOLIC A/G 1.5 {RATIO} (Normal) Range: [...] T PROT 6.1 g/dL (Abnormal) Range: 6.4-8.2 11-Pgh-354781:12 FUNEZ A AB 507716 FUNEZ A TYPE 10 <1:8 (Normal) FUNEZ [...] and its performancecharacteristics have been determined by [employer]. Performance characteristics refer tothe analytical performance of the test. FUNEZ A TYPE 2 <1:8 (Normal) FUNEZ A TYPE 4 <1:8 (Normal) FUNEZ A TYPE 7 <1:8 (Normal) FUNEZ A TYPE 9 <1:8 (Normal) 54-Xev-230082:12 ESR SED RATE 14 mm/h (Normal) Range: 0-30 80-Lue-022423:12 RA LATEX 6502 7.1 {IU/mL} (Normal) Range: 0.0-13.9 Comments: Performed At: [facility] [place], [place] [id number] At: [facility] [address] [id number] 43-Vyp-335770:12 TSH 0.16 {uIU/mL} (Abnormal) Range: 0.34-4.82 63-Bfs-632489:21 PELVIS WITH CONTRAST Radiology Report See Note (Normal) Comments: Exam Number: [id number] CT ABDOMEN AND PELVIS WITH CONTRAST. CLINICAL [...] pericardial effusion. Reported By: TODD KENNEDY M.D. 56-Yhj-891956:11 ABDOMEN WITH CONTRAST Radiology Report See Note (Normal) Comments: Exam Number: [id number] CT ABDOMEN AND PELVIS WITH CONTRAST. CLINICAL [...] pericardial effusion. Reported By: TODD KENNEDY M.D. 98-Jzw-151197:38 MARCUS 45 U/L (Normal) Range: 25-115 83-Fsr-313300:38 CBCD,SMEAR DIFF BAND 1 % (Normal) Range: [...] 47-70 WBC 5.9 K/mm3 (Normal) Range: 4.4-11.0 18-Hni-263309:38 LIPASE 190 U/L (Normal) Range: 114-286 24-Bxi-568789:45 BILAT SCRN DIGITAL & CAD Radiology Report See Note (Normal) Comments: Exam Number: [id number] MAMMOGRAM, BILATERAL SCREENING DIGITAL AND CAD HISTORYRoutine [...] werealso exam ined with computer-aided detection software ([employer], frooly.). Reported By: DOMENICA GATES M.D. :33 CHEST W/WO CONTRAST Radiology Report See Note (Normal) Comments: Exam Number: [id number] CT SCAN OF CHEST HISTORYLung nodule. 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 Indication: Chest pain Osteoarthritis, unspecified osteoarthritis [...] Hypercholesterolemia Planned Observations CBC W/AUTO DIFF WBC (29144)Indication: Prolonged QT interval On: 7-Wci-827256:18 Request METABOLIC PANEL, COMPREHENSIVE (00310)Indication: Prolonged QT interval On: 8-Sef-539075:18 Request VITAMIN B-12 (CYANOCOBALAMIN) (38865)Indication: DEFICIENCY, B-COMPLEX NEC On: 0-Usg-492132:18 Request TSH (34061)Indication: Acquired hypothyroidism On: :17 Request LIPOPROTEIN, BLD, BY NMR (42104)Indication: Hypercholesterolemia On: :17 Request VITAMIN B-12 (CYANOCOBALAMIN) (61400)Indication: DEFICIENCY, B-COMPLEX NEC On: :18 Request LIPID PANEL (60514)Indication: Hypercholesterolemia On: :18 Request CBC W/AUTO DIFF WBC (86954)Indication: Right flank pain On: :17 Request METABOLIC PANEL, COMPREHENSIVE (22785)Indication: Right flank pain On: :17 Request Vitamin D Hydroxy (15447)Indication: Vitamin D deficiency, unspecified On: :17 Request Urinalysis, Office (98296)Indication: Urinary frequency On: 56-Izl-084737:22 Request VITAMIN B-12 (CYANOCOBALAMIN) (61782)Indication: Other vitamin B12 deficiency anemia On: :28 Request Comments: Lot:[id number]:04/29Dose:1mlRoute:IMSite:r arm Given By:TAVON signed Vitamin D Hydroxy (64219)Indication: Vitamin D deficiency, unspecified On: :42 Request LIPID PANEL (47022)Indication: Hypercholesterolemia On: :42 Request METABOLIC PANEL, COMPREHENSIVE (95779)Indication: Essential hypertension On: :36 Request TSH (35400)Indication: Acquired hypothyroidism On: :36 Request CBC with auto diff (51203)Indication: Abdominal pain, acute, right lower quadrant On: 3-Yys-037933:06 Request METABOLIC PANEL, COMPREHENSIVE (76694)Indication: Abdominal pain, acute, right lower quadrant On: :06 Request Urinalysis, Office (90867)Indication: Low Back Pain (Renamed from LBP (low back pain)) On: 70-Con-996201:09 Request Vitamin D Hydroxy (25600)Indication: Vitamin D deficiency, unspecified On: 09-Nir-541853:32 Request METABOLIC PANEL, COMPREHENSIVE (61924)Indication: Essential hypertension On: :31 Request LIPID PANEL (54226)Indication: Hypercholesterolemia On: :31 Request TSH (13337)Indication: Acquired hypothyroidism On: :31 Request LIPID PANEL (09354)Indication: Hypercholesterolemia On: 0-Kyu-436358:45 Request TSH (96258)Indication: Acquired hypothyroidism On: :44 Request METABOLIC PANEL, COMPREHENSIVE (40877)Indication: Essential hypertension On: :44 Request CBC, PLATELETS & AUT DIFF (52399)Indication: DEFICIENCY, B-COMPLEX NEC On: :43 Request VITAMIN B-12 (CYANOCOBALAMIN) (44232)Indication: DEFICIENCY, B-COMPLEX NEC On: :43 Request Vitamin D Hydroxy (53053)Indication: Vitamin D deficiency, unspecified On: :43 Request IRON (85867)Indication: Anemia On: 4-Rqp-858390:42 Request Vitamin D Hydroxy (93840)Indication: Vitamin D deficiency, unspecified On: 5-Xxm-098127:36 Request VITAMIN B-12 (CYANOCOBALAMIN) (05411)Indication: DEFICIENCY, B-COMPLEX NEC On: 1-Nwc-028848:35 Request CBC WITH MANUAL DIFF (11610)Indication: DEFICIENCY, B-COMPLEX NEC On: 4-Cji-895794:35 Request METABOLIC PANEL, COMPREHENSIVE (43020)Indication: Essential hypertension On: 5-Wnp-539725:35 Request T3, FREE (TRIDOTHYRONINE) (45669)Indication: Acquired hypothyroidism On: :35 Request T4, FREE (17834)Indication: Acquired hypothyroidism On: 8-Cqq-155108:35 Request TSH (82065)Indication: Acquired hypothyroidism On: 9-Gbs-580063:34 Request TSH (09230)Indication: Acquired hypothyroidism On: 31-Zrs-254919:23 Request Comments: recheck in 6 weeks Metabolic Panel, Basic (15067)Indication: Essential hypertension On: 95-Oam-627453:16 Request TSH (22461)Indication: Acquired hypothyroidism On: 39-Cqh-028941:22 Request C-REACTIVE PROTEIN (10336)Indication: right lower quadrant pain On: 73-Nmy-521222:51 Request SED RATE ERYTHROCYTE (37113)Indication: right lower quadrant pain On: 42-Mhs-676990:51 Request Magnesium (46569)Indication: Leg cramps On: :43 Request CBC WITH MANUAL DIFF (54964)Indication: Edema leg On: :42 Request LIPID PANEL (53284)Indication: Hypercholesterolemia On: :41 Request METABOLIC PANEL, COMPREHENSIVE (12670)Indication: Essential hypertension On: :41 Request VITAMIN B-12 (CYANOCOBALAMIN) (08771)Indication: Other vitamin B12 deficiency anemia On: :41 Request Vitamin D Hydroxy (35076)Indication: Vitamin D deficiency, unspecified On: :41 Request Metabolic Panel, Basic (38409)Indication: Acute renal failure, unspecified acute renal failure type On: :31 Request TSH (48999)Indication: Acquired hypothyroidism On: :30 Request LIPID PANEL (14582)Indication: Hypercholesterolemia On: :39 Request Vitamin D Hydroxy (19298)Indication: Vitamin D deficiency, unspecified On: :39 Request VITAMIN B-12 (CYANOCOBALAMIN) (29212)Indication: Other vitamin B12 deficiency anemia On: :39 Request CBC WITH MANUAL DIFF (85795)Indication: Other vitamin B12 deficiency anemia On: :39 Request METABOLIC PANEL, COMPREHENSIVE (52336)Indication: Essential hypertension On: :39 Request Vitamin D Hydroxy (29037)Indication: Vitamin D deficiency, unspecified On: :37 Request LIPID PANEL (13232)Indication: Hypercholesterolemia On: :37 Request TSH (10193)Indication: Acquired hypothyroidism On: :37 Request CBC WITH MANUAL DIFF (90867)Indication: Essential hypertension On: :39 Request METABOLIC PANEL, COMPREHENSIVE (14213)Indication: Essential hypertension On: :39 Request VITAMIN B-12 (CYANOCOBALAMIN) (38198)Indication: b12 deficiency On: :39 Request LIPID PANEL (37357)Indication: Hypercholesterolemia On: :39 Request Vitamin D Hydroxy (30325)Indication: Vitamin D deficiency, unspecified On: :32 Request VITAMIN B-12 (CYANOCOBALAMIN) (22167)Indication: b12 deficiency On: :32 Request Vitamin D Hydroxy (78284)Indication: Vitamin D deficiency, unspecified On: :32 Request METABOLIC PANEL, COMPREHENSIVE (32984)Indication: Essential hypertension On: :32 Request LIPID PANEL (28178)Indication: Hypercholesterolemia On: :32 Request TSH (71832)Indication: Acquired hypothyroidism On: :32 Request CBC WITH MANUAL DIFF (94925)Indication: Essential hypertension On: :30 Request METABOLIC PANEL, COMPREHENSIVE (94875)Indication: Essential hypertension On: :29 Request VITAMIN B-12 (CYANOCOBALAMIN) (99396)Indication: DEFICIENCY, B-COMPLEX NEC On: :29 Request Vitamin D Hydroxy (37774)Indication: Vitamin D deficiency, unspecified On: :29 Request TSH (36571)Indication: Acquired hypothyroidism On: :29 Request LIPID PANEL (80014)Indication: Hypercholesterolemia On: :29 Request Vitamin B-12 (cyanocobalamin) (13294)Indication: b12 deficiency On: 59-Dne-967829:01 Request CALCIFIDIOL (66500) VIT D 25Indication: Vitamin D deficiency, unspecified On: 01-Vyg-814245:00 Request TSH (19024)Indication: Acquired hypothyroidism On: :34 Request LIPID PANEL ([id number])Indication: Hypercholesterolemia On: :34 Request Metabolic Panel, Basic ([id number])Indication: Essential hypertension On: 62-Lig-594099:26 Request VITAMIN B-12 (CYANOCOBALAMIN) ([id number])Indication: DEFICIENCY, B-COMPLEX NEC On: 71-Gnp-154369:19 Request Vitamin D Hydroxy ([id number])Indication: Vitamin D deficiency, unspecified On: 52-Cut-310500:19 Request VITAMIN D, 1, 25-DIHYDROXY ([id number])Indication: Vitamin D deficiency, unspecified On: 3-Rlv-737635:19 Request Comments: Vit D [place] Vitamin B-12 (cyanocobalamin) ([id number])Indication: b12 deficiency On: 3-Hbu-362627:17 Request CBC WITH MANUAL DIFF ([id number])Indication: b12 deficiency On: 56-Opf-166241:17 Request VITAMIN B-12 (CYANOCOBALAMIN) ([id number])Indication: b12 deficiency On: 80-Frc-509151:14 Request VITAMIN B-12 (CYANOCOBALAMIN) ([id number])Indication: Vitiligo On: 52-Gix-211441:37 Request LIPID PANEL ([id number])Indication: Hypercholesterolemia On: 21-Lbc-773714:33 Request TSH ([id number])Indication: Acquired hypothyroidism On: 52-Gvu-545316:32 Request Vitamin D Hydroxy (61441)Indication: Vitamin D deficiency, unspecified On: 49-Guo-203628:31 Request METABOLIC PANEL, COMPREHENSIVE ([id number])Indication: Essential hypertension On: 47-Ute-826877:42 Request Vitamin D Hydroxy ([id number])Indication: Vitamin D deficiency, unspecified On: 22-Fmc-356560:42 Request CAROL (ANTINUCLEAR ANTIBODY) ([id number])Indication: Pain in unspecified joint On: :27 Request C-REACTIVE PROTEIN ([id number])Indication: Pain in unspecified joint On: :27 Request CBC WITH MANUAL DIFF ([id number])Indication: Pain in unspecified joint On: :27 Request CCP ANTIBODY ([id number])Indication: Pain in unspecified joint On: :27 Request METABOLIC PANEL, COMPREHENSIVE ([id number])Indication: Pain in unspecified joint On: :27 Request RHEUMATOID FACTOR-QUANT ([id number])Indication: Pain in unspecified joint On: : Request SED RATE ERYTHROCYTE ([id number])Indication: Pain in unspecified joint On: :27 Request TSH ([id number])Indication: Pain in unspecified joint On: :27 Request SED RATE ERYTHROCYTE ([id number])Indication: flank pain On: :35 Request C-REACTIVE PROTEIN ([id number])Indication: flank pain On: :35 Request METABOLIC PANEL, COMPREHENSIVE ([id number])Indication: flank pain On: :35 Request CBC WITH MANUAL DIFF ([id number])Indication: flank pain On: :35 Request URINE CESAR CULTURE (TUNDE COL COUNT) ([id number])Indication: flank pain On: :35 Request Thin prep Pap (41271)Indication: Well woman exam with routine gynecological exam On: 4-Mav-094942:09 Request CBC WITH MANUAL DIFF ([id number])Indication: Essential hypertension On: 60-Amf-950552:02 Request METABOLIC PANEL, COMPREHENSIVE ([id number])Indication: Essential hypertension On: 68-Udj-754040:02 Request LIPID PANEL ([id number])Indication: Hypercholesterolemia On: 19-Qvf-296835:02 Request METABOLIC PANEL, COMPREHENSIVE ([id number])Indication: Essential hypertension On: 53-Lrz-401315:18 Request TSH ([id number])Indication: Acquired hypothyroidism On: 65-Zgb-309480:18 Request SED RATE ERYTHROCYTE ([id number])Indication: Abdominal pain, acute, left upper quadrant On: 53-Gie-211225:09 Request C-REACTIVE PROTEIN ([id number])Indication: Abdominal pain, acute, left upper quadrant On: 31-Ail-147038:09 Request CBC WITH MANUAL DIFF ([id number])Indication: edema On: 95-Zqr-649294:09 Request METABOLIC PANEL, COMPREHENSIVE (79063)Indication: edema On: 25-Rfk-957374:09 Request TSH ([id number])Indication: Acquired hypothyroidism On: 30-Urt-162937:03 Request CBC WITH MANUAL DIFF ([id number])Indication: Abdominal pain, acute, left upper quadrant On: 35-Tet-321887:22 Request Lipase ([id number])Indication: Abdominal pain, acute, left upper quadrant On: 58-Ecd-601260:22 Request Amylase (72231)Indication: Abdominal pain, acute, left upper quadrant On: 43-Dcb-408010:21 Request Thin prep Pap ([id number])Indication: Well woman exam with routine gynecological exam On: 02-Hfe-748562:43 Request HEPATIC FUNCTION PANEL ([id number])Indication: Hypercholesterolemia On: 45-Oxz-833054:52 Request LIPID PANEL ([id number])Indication: Hypercholesterolemia On: 72-Yau-468794:52 Request CBC, PLATELETS & AUTO DIFF ([id number])Indication: Leukopenia On: 07-Mww-806588:34 Request Planned Encounters Medical; DARRIAN 6 Month Fu - On: 03-Jul-2018 13:00 [facility] Fast DO, Kristine A Fast DO, Kristine A Planned Procedures DEXA SCAN AXIAL SKELETON ([id number])By: On: 02-Jan-2018 Intent Fast DO, Kristine A Fast DO, Kristine A Comments: mar - RenalBy: Fast DO, On: 02-Jan-2018 Intent Kristine A Fast DO, Kristine A Flu Vaccine (Quadrivalent) 21784Ee: On: 02-Jan-2018 Intent Fast DO, Kristine A Fast DO, Kristine A Comments: Lot #[id number]-8/30/2019Site-L dltd, IMDose prefilled syringegiven by: Melly reviewed and ABN signed ELECTROCARDIOGRAM, COMPLETE (ECG) On: 28-Aug-2017 Intent (09609)By: Fast DO, Kristine A Fast Comments: ekg showed normal sinus rhythym, normal axis, no acute st/t wave changes DO, Kristine A SCREENING DIGITAL TOMOSYNTHESIS OF On: 28-Aug-2017 Intent BREAST ([id number])By: Fast DO, Kristine A Fast DO, Kristine A B 12 Injection, 1000 mcg (J3420)By: On: 15-Mar-2017 Intent Visit, Nurse Comments: [id number]/[id number]/mlMlalanna, QUALITY CLOTH TESTER B 12 Injection, 1000 mcg (J3420)By: On: 22-Feb-2017 Intent Fast DO, Kristine A Fast DO, Kristine A Comments: lot: [id number]: 05/01site/route: L del/IMamt: 1mLVIS signed when applicableRAYMUNDO Huerta Flu Vaccine (Quadrivalent) 09246Mg: On: 17-Jan-2017 Intent Fast DO, Kristine A [...] (J3420)By: On: 12-Dec-2016 Intent Visit, Nurse Comments: 90343/2018R arm, IM1ml, 1000mcgML, QUALITY CLOTH TESTER B 12 Injection, 1000 mcg (J3420)By: On: [...] Kristine A Fast DO, Kristine A Comments: B12lot:[id number]:ite:lt deltroute:Imdose:1mlD.AYAD Jerez B 12 Injection, 1000 mcg [...] armGiven By:TAVON signed DEXA SCAN AXIAL SKELETON ([id number])By: On: 04-Apr-2016 Intent Fast DO, Kristine A Fast DO, Kristine A MRI LUMBAR SPINE W/O CONTRAST On: 04-Apr-2016 Intent ([id number])By: Fast DO, Kristine A Fast DO, Kristine [...] A ELECTROCARDIOGRAM, COMPLETE (ECG) On: 11-Dec-2015 Intent ([id number])By: Fast DO, Kristine A Fast Comments: ekg [...] MAMMOGRAM, SCREENING, BOTH BREAST On: 21-Apr-2015 Intent ([id number])By: Fast DO, Kristine A Fast DO, Kristine A B 12 Injection, 1000 mcg (J3420)By: On: 21-Apr-2015 Intent Fast DO, Kristine A Fast DO, Kristine A Comments: Lot:[id number]:11/27Dose:1mlRoute:IMSite:r arm Given By:TAVON signed B 12 Injection, 1000 mcg (J3420)By: On: 16-Mar-2015 Intent Fast DO, Kristine A Fast DO, Kristine A Comments: lot: [id number]: 06/27site/route: L del/IMamt: 1mLVIS signed when applicableRAYMUNDO Pichardo B 12 Injection, 1000 mcg (J3420)By: On: 09-Feb-2015 Intent Fast DO, Kristine A Fast DO, Kristine A Comments: B12lot:[id number]:06/27site:lt deltoidroute:IMdose:1mlDEMICK, SMA B 12 Injection, 1000 mcg (J3420)By: On: 15-Jan-2015 Intent Hunter Jerez Comments: B 12Lot:[id number]:3*17site:lt deltoidroute:IMdose:.5mlDEMICK, SMA B 12 Injection, 1000 mcg (J3420)By: On: 10-Dec-2014 Intent Fast DO, Kristine A Fast DO, Kristine A Comments: lot [id number] - see ANOOP Mcallister CT - Abdomen & Pelvis (IV Contrast On: 16-Sep-2014 Intent Needed)By: Fast DO, Kristine A Fast DO, Kristine A B 12 Injection, 1000 mcg (J3420)By: On: 16-Sep-2014 Intent Fast DO, Kristine A Fast DO, Kristine A Comments: Lot:[id number]:11.16Route:IMSite:R deltoidDose: 1 mLgiven by: Carlita Ariza CMA [...] 1,000 mcgSite: l dltdLocation; IMby: Prevnar 13 ([id number])By: Fast , On: 24-Mar-2014 Intent Kristine A Fast DO, Kristine A Comments: lot: [id number]: 3/16site/route: L del/IMamt: 0.5mLVIS signed when applicableRAYMUNDO Huerta Ultrasound - PelvisBy: Fast DO, On: 24-Mar-2014 Intent Kristine A Fast DO, Kristine A B 12 Injection, 1000 mcg (J3420)By: On: 24-Mar-2014 Intent Fast DO, Kristine A Fast DO, Kristine A Comments: lot: [id number]: 4/16site/route: R del/IMamt:1mlVIS signed when applicableChelsea, MAIL FORWARDING SYSTEM MARKUP CLERK B 12 Injection, 1000 mcg (J3420)By: On: 24-Feb-2014 Intent Silvia Burton LPN Comments: lot: [id number]: 4.16Dose: 1,000 mcgSite: l dltdLocation; IMby: B 12 Injection, 1000 mcg (J3420)By: On: 22-Jan-2014 Intent Fast DO, Kirstine A Fast DO, Kristine A Comments: lot [id number] 08/2015location L armroute imgiven by - msmith VIS and/or ABN signed B 12 Injection, 1000 mcg (J3420)By: On: 30-Dec-2013 Intent Fast DO, Kristine A Fast DO, Kristine A Comments: lot [id number] 05/2015location L armroute imgiven by - msmithVIS [...] Fast Comments: today DO, Kristine A EKG (31768)By: Fast DO, Kristine A On: 05-Nov-2013 Intent Fast DO, Kristine A Comments: ekg showed normal sinus rhythym, normal axis, no acute st/t wave changes B 12 Injection, 1000 mcg (J3420)By: On: 05-Nov-2013 Intent Fast DO, Kristine A Fast DO, Kristine A Comments: Lot:[id number]:11/24Dose:1mlRoute:IMSite:l armGiven By:TAVON signed PHYSICAL THERAPY EVALUATION On: 18-Oct-2013 Intent (07183)By: Aquiles Potts CNP SPECIMEN HANDLING/TRANSPORT On: 18-Oct-2013 Intent ([id number])By: Aquiles Potts CNP B 12 Injection, 1000 mcg (J3420)By: On: 11-Oct-2013 Intent Aquiles Potts CNP Comments: Lot:[id number]:11/2013Dose:1mlRoute:IMSite:enoch Martinezven By:TAVON signed B 12 Injection, 1000 mcg (J3420)By: On: 18-Sep-2013 Intent Fast DO, Kristine A Fast DO, Kristine A B 12 Injection, 1000 mcg (J3420)By: On: 07-Aug-2013 Intent Fast DO, Kristine A Fast DO, Kristine A Comments: lot: [id number]: ite/route: L del/IMamt: 1mLVIS signed when applicableChelsea, MAIL FORWARDING SYSTEM MARKUP CLERK MAMMOGRAM, SCREENING, BOTH BREASTS On: 24-Jun-2013 Intent ([id number])By: Fast DO, Kristine A Fast DO, Kristine A B 12 Injection, 1000 mcg (J3420)By: On: 24-Jun-2013 Intent Fast DO, Kristine A Fast DO, Kristine A Comments: Lot:[id number]:04/28Dose:1mlRoute:IMSite:enoch Pierre By:TAVON signed B 12 Injection, 1000 mcg (J3420)By: On: 15-May-2013 Intent Visit, Nurse Comments: Lot:[id number]:01/25Dose:1mlRoute:IMSite:enoch pachecoGiven By:TAVON signed B 12 Injection, 1000 mcg (J3420)By: On: 22-Apr-2013 Intent Fast DO, Kristine A Fast DO, Kristine A Comments: lot: [id number]: 01/25site/route: L deltoid/IMamt: 1mLVIS signed when applicableChelsea, MAIL FORWARDING SYSTEM MARKUP CLERK B 12 Injection, 1000 mcg (J3420)By: On: 21-Mar-2013 Intent Fast DO, Krsitine A Fast DO, Kristine A Comments: see flowsheetMegan PNEUM VAC ADLT/IMUMNOSPR, SBC/INTRM On: 18-Feb-2013 Intent ([id number])By: Fast DO, Kristine A Fast Comments: Lot: [id number]: 50Pdx70Lyd: 0.5mlRoute: IMSite: L deltoidGiven by: ANOOP Moralez DO, Kristine A ADMINISTRATION OF PNEUMOCOCCAL On: 18-Feb-2013 Intent VACCINE (G0009)By: Fast DO, Kristine A Fast DO, Kristine A Eprescribed prescriptions On: 18-Feb-2013 Intent (G8553)By: Deanna Michelle B 12 Injection, 1000 mcg (J3420)By: On: 02-Jan-2013 Intent Deanna Michelle Comments: lot: [id number]: 10/25site/route: L deltoid/IMamt: 1mLVIS signed when applicableChelsea, MAIL FORWARDING SYSTEM MARKUP CLERK B 12 Injection, 1000 mcg (J3420)By: On: [...] 08/24site/route: R deltoid/IMamt: 1mLVIS signed when applicableChelsea, MAIL FORWARDING SYSTEM MARKUP CLERK B 12 Injection, 1000 mcg (J3420)By: On: 28-Aug-2012 Intent Fast DO, Kristine A Fast DO, Kristine A Comments: Lot #:[id number] date:mount given:1mlRoute: IMSite given: left deltoidGiven by: AYAD Dailey B 12 Injection, 1000 mcg (J3420)By: On: 23-Jul-2012 Intent Fast DO, Kristine A Fast DO, Kristine A Comments: Lot: [id number]: 02/23Amt: 1000mcg/1mlRoute: IMSite: L Deltoid per pt [...] A Fast DO, Kristine A Comments: lot: [id number]:02/23site/route: L deltoid/IMamt: 1ccVIS signed when applicableChelsea, MAIL FORWARDING SYSTEM MARKUP CLERK B 12 Injection, 1000 mcg (J3420)By: On: 09-May-2012 Intent Kylee Castellon Comments: Lot:[id number]:02/2014Dose:1mlRoute:IMSite:L armGiven By:Jameson signed VENOUS DOPPLER LOWER EXTREMITY On: 18-Apr-2012 Intent (74573)By: Fast DO, Kristine A Fast DO, Kristine A Radiology - Hip - RightBy: Fast DO, On: 06-Apr-2012 Intent Kristine A Fast DO, Kristine A Comments: call results B 12 Injection, 1000 mcg (J3420)By: On: 06-Apr-2012 Intent Lisandra Chilel Comments: Lot #[id number]-31/14Site-left deltoidDose-1 mlgiven by: Omkar Rivera LPN Eprescribed prescriptions On: 06-Apr-2012 Intent (G8553)By: Lisandra Chilel Inhaler Demo ([id number])By: Fast DO, On: 06-Feb-2012 Intent Kristine A Fast DO, Kristine A B 12 Injection, 1000 mcg (J3420)By: On: 06-Feb-2012 Intent Kylee Castellon Comments: Lot:[id number]:Dose:1mlRoute:IMSite:L armGiven By:TAVON signed MAMMOGRAM, SCREENING, BOTH BREASTS On: 06-Feb-2012 Intent ([id number])By: Fast DO, Kristine A Fast DO, Kristine [...] Coverage Instructions Apply. See CIM: 45-4 and [facility]: 2049) (J3420)By: Licha Almaguer LPN Breast Ultrasound [...] mlRoute: IMSite given: left deltoidGiven by: AMI Alcarazcrm specialist - Cervical SpineBy: Fast On: 13-Apr-2011 Intent DO, Kristine A Fast DO, Kristine A TD Injection , IM (68662)By: On: 13-Apr-2011 Intent Lisandra Chilel Comments: received in 2005 B 12 Injection, 1000 mcg (J3420)By: On: 29-Mar-2011 Intent Kateryna Lunsford MD Comments: Lot #[id number]-8.13Site-Left arm, IMDose 0.5mlgiven by:Татьяна B 12 Injection, 1000 mcg (J3420)By: On: 08-Feb-2011 Intent Татьяна Vera LPN Comments: Lot [id number]#Exp-7.13Site-R arm, IMDose 1mlgiven by:Татьяна DXA, BONE DENSITY, AXIAL SKELETON On: 24-Jan-2011 Intent (65174)By: Lisandra Chilel Comments: post menopausal wihtout estrogen FLU VAC, SPLIT, >3 YEARS, INTRAMUSC On: 24-Jan-2011 Intent (38003)By: Lisandra Chilel Comments: received at [facility] B 12 Injection, 1000 mcg (J3420)By: On: 21-Dec-2010 Intent Licha Almaguer LPN INJECTION, VITAMIN B-12 On: 19-Nov-2010 Intent CYANOCOBALAMIN, UP TO 1000 MCG Comments: Lot:[id number]:04/25Amt:1mlRoute:IMSite:left deltGiven By: ANOOP Sotelo (Special Coverage Instructions Apply. See CIM: 45-4 and MCM: 9) (J3420)By: Vi Ramirez EKG ([id number])By: Lisandra Chilel On: 05-Nov-2010 Intent Comments: ekg showed normal sinus rhythym, normal axis, no acute st/t wave changes MAMMOGRAM, SCREENING, BOTH BREASTS On: 05-Nov-2010 Intent (66737)By: Fast DO, Kristine A Fast DO, Kristine [...] 03-Jun-2010 Intent Yasmeen Rivera LPN Comments: Lot #[id number]-left deltoidDose-1 mlgiven by:[facility] IMMUNIZ ADMNIN, 1 VAC, SNGL/COMBO On: 19-Apr-2010 Intent (50182)By: Yasmeen Rivera LPN Comments: Lot #[id number]-9/19/12Site-left deltoidDose- 0.85mlgiven by:[facility] ZOSTER VACC, [place] (04968)By: Miguel On: 19-Apr-2010 Intent Yasmeen DAVALOS B [...] Rivera LPN Comments: Lot #[id number]-5/12Site-left deltoidDose-1 mlgiven by:[facility] FLU VAC, SPLIT, >3 YEARS, INTRAMUSC On: 30-Dec-2009 Intent (06626)By: Lisandra Chilel Comments: Lot #[id number]-7/11Site-left deltoidgiven by:[facility] B 12 Injection, 1000 mcg (J3420)By: On: 30-Dec-2009 Intent Lisandra Chilel Comments: Lot #[id number]-5/12Site-right deltoidDose-1 mlgiven by:[facility] Renal Duplex ScanBy: Fast DO, Kristine On: 30-Dec-2009 Intent A Fast DO, Kristine A IMMUNIZ ADMNIN, 1 VAC, SNGL/COMBO On: 30-Dec-2009 Intent ([id number])By: Lisandra Chilel B 12 Injection, 1000 mcg (J3420)By: On: 14-Dec-2009 Intent Shayna Harris Comments: Lot:[id number]:5/12Dose:1000mcg/1mlRoute:IMSite:right deltoid Given by: AYAD Gil B 12 Injection, 1000 mcg (J3420)By: On: 26-Nov-2009 Intent Phyllis Escobar RN Comments: documented in flowsheet B 12 Injection, 1000 mcg (J3420)By: On: 19-Oct-2009 Intent Yasmeen Rivera LPN Comments: Lot #[id number]-2/12Site-left deltoidDose-1 mlgiven by:[facility] B 12 Injection, 1000 mcg (J3420)By: On: 13-Oct-2009 Intent Shayna Harris Comments: Lot:[id number]:04/24Dose:1000mcg/1mlRoute:imSite:right sideGiven by: AYAD Gil B 12 Injection, 1000 mcg (J3420)By: On: 06-Oct-2009 Intent Fast DO, Kristine A Fast DO, Kristine A Comments: Lot #[id number]-04/24Site-right deltoidDose- 1 mlgiven by:[facility] MRI - BrainBy: Fast DO, Kristine [...] do this week and call ressults EKG ([id number])By: Fast DO, Kristine A On: 17-Dec-2008 Intent Fast DO, Kristine A Comments: ekg showed normal sinus rhythym, normal axis, no acute st/t wave changes MAMMOGRAM, SCREENING, BOTH BREASTS On: 17-Dec-2008 Intent ([id number])By: Fast DO, Kristine A Fast DO, Kristine A MRI - Lumbar SpineBy: Fast DO, On: 17-Dec-2008 Intent Kristine A Fast DO, Kristine A FLU VAC, SPLIT, >3 YEARS, INTRAMUSC On: 17-Dec-2008 Intent (37317)By: Lisandra Chilel Comments: Lot #:[id number] date:mount given:0.5mlRoute: IMSite given:left deltoidGiven by: AYAD Dailey ADMINISTRATION OF INFLUENZA VIRUS On: 17-Dec-2008 Intent VACCINE (G0008)By: Lisandra Chilel CT - Abdomen & Pelvis Stone On: 18-Aug-2008 Intent ProtocolBy: Kristine Davis DO A Antwan Comments: stat -call results Kristine MIX A Radiology - Chest- PA and LatBy: On: 24-Mar-2008 Intent Kristine Davis DO, DO, Kristine A Spirometry ([id number])By: Antwan MIX, On: 24-Mar-2008 Intent Kristine Davis DO Kristine A Comments: good effort and curve minimal decrease small airways ADMINISTRATION OF PNEUMOCOCCAL On: 17-Dec-2007 Intent VACCINE (G0009)By: Kristine Davis DO, DO Kristine A PNEUM VAC ADLT/IMUMNOSPR, SBC/INTRM On: 18-Dec-2007 Intent ([id number])By: Kristine Davis DO Comments: Lot #:[id number] date:08/19Amount given:0.5mlRoute: IMSite given:left deltGiven by: AYAD Dailey DO Kristine A MAMMOGRAM, SCREENING, BOTH BREASTS On: 17-Dec-2007 Intent (09088)By: Kristine Davis DO Comments: end of feb DO, Kristine A DXA, BONE DENSITY, AXIAL SKELETON On: 31-Oct-2007 Intent (08183)By: Kristine Davis DO, DO Kristine A Echo CompleteBy: Antwan DO Kristine A On: 25-Jul-2007 Intent Antwan DO Kristine A Bio Z ([id number])By: Antwan MIX Kristine A On: 25-Jul-2007 Intent Antwan DO Kristine A Comments: good cardiac output and no excesive gfluid EKG (93507)By: Kristine Davis DO A On: 25-Jul-2007 Intent Antwan DO Kristine A Comments: ekg showed normal sinus rhythym, normal axis, no acute st/t wave changes CT - Abdomen & Pelvis (IV Contrast On: 11-Jul-2007 Intent Needed)By: Adrianna Morgan DO MAMMOGRAM, SCREENING, BOTH BREASTS On: 27-Mar-2006 Intent ([id number])By: Adrianna Morgan DO Planned Medications Vitamin B-12 [...] MCG/ML Injection Solution Ordered: 22-Apr-2014 Pending Slarb QUALITY CLOTH TESTER, Silvia Vitamin B-12 1000 MCG/ML Injection Solution Ordered: 24-Mar-2014 Pending Fast DO, Kristine A Fast DO, Kristine A Vitamin B-12 1000 MCG/ML Injection Solution Ordered: 24-Feb-2014 Pending Slarb QUALITY CLOTH TESTER, Silvia Vitamin B-12 1000 MCG/ML Injection Solution [...] MCG/ML Injection Solution Ordered: 11-Dec-2015 Pending Em[place], [place] Vitamin B-12 1000 MCG/ML Injection Solution Ordered: 05-Nov-2015 Pending Emick, [place] Vitamin B-12 1000 MCG/ML Injection Solution Ordered: [...] MCG/ML Injection Solution Ordered: 19-Apr-2010 Pending Radhausz[employer] QUALITY CLOTH TESTER, Yasmeen Vitamin B-12 1000 MCG/ML Injection Solution [...] / tylenol and - more mobile on IdleAiric days- cleo notices a difference Encounter Diagnosis: [...] went well- she saw Dr Mckeon in [facility] for pain management - had inje [...] do a lot of walking Encounter Diagnosis: [facility] Wellness Physical, Nonsmoker, BMI 37.0-37.9, adult, Hip [...] procedure: (10 End: 10-Dec-2014 21:34 /19/15 at [facility] with dr Mahesh stokes) . There have been no problems with general anesthesia or blood/blood products. Prosthetics include: dentures (partial). Note for Preoperative evaluation: Lef t tka at [facility] on dec [facility]- Dr Stokes- having [...] scleroderma, leukopenia). 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
--- OUTSIDE RECORDS SUMMARY | 2018-06-01 23:35 | XMS RPT_ITS | Continuity of Care Document ---
:1940 Author Organization [facility] Address [address] [facility] [address] [place] [address] Phone Care Team Providers Name Role Phone [...] Quantity: 90 {Tablet} Refills: 3 Ordered:22-Jan-2018 Fast Cuauhtemoc MIXa AFjuana MIX Kristine A Start : 22-Jan-2018 Active Amoxicillin 500 MG Oral Capsule 4 caps 1 hr prior to dental work for 0 days Refills: 0 Ordered:02-Jan-2018 Fast DOCuauhtemoca AFjuana MIX Kristine A Start : 02-Jan-2018 Active Clotrimazole-Betamethasone 1-0.05 % External Cream tad Cream Daily prn for 0 days Quantity: 3 {Tube} Refills: 1 Ordered:03-Mar-2017 Fast DO Kristine AFast DO Kristine A Start : 03-Mar-2017 Active Comments:PLEASE DISPENSE 3- 15GRAM TUBESPUT ON [...] DO, Kristine A Start : 02-Mar-2016 Active Comments:[facility] report#[id number], df approved and given to pt-jf 03/02/16 Imipramine HCl 25 MG Oral Tablet 1 (one) Tablet qhs prn for 0 days Quantity: 30 {Tablet} Refills: 1 Ordered:14-Jul-2017 Fast DO, Kristine AFast DO, Kristine A Start : 14-Jul-2017 Active Comments:verbally called to [facility] - cmanchak 5/4 Leg Cramps 7 to [...] cap daily (100 MG) Active Vitamin D3 19239 UNIT Oral Capsule 1 (one) Capsule once [...] : 11-Jul-2007 End : 08-Aug-2007 Discontinued Drisdol 02196 UNIT Oral Capsule 1 (one) Capsule once [...] Chilel End : 08-Aug-2007 Discontinued VITAMIN D, 14005CVUT (Oral Capsule) 1 cap q week (95358 UNIT) Start : 27-Mar-2013 End : 27-Mar-2013 Discontinued Comments:This order discontinued per [employer]. VITAMIN D, 80679FURO (Oral Capsule) 1 cap Capsule q week [...] and Bladder Result: Comments: See Note; NOTES: [facility] Imaging Services [address] [place] [address] Kidney and Bladder MR#: [id number] Acct: [id number] Name: VIRGINIA URRUTIA Rep #: [id number] : 1940 F 77 From: Doug Sinclair DO PCP: Kristine Davis DO Status: REG CLI Study: Kidney and Bladder Date of Exam: 01/11/18 Exam# [id number] Ordering Dr: Kristine Davis DO STUDY: RENAL [...] Doug Sinclair DO at 23:00 EDT Tel [phone], Service support , CC: Kristine Davis DO Orthotic And Prosthetic Technician: Signed 11-Jan-2018 Kidney and Bladder Result: Comments: See Note; NOTES: [facility] Imaging Services [address] [place] [address] Kidney and Bladder MR#: [id number] Acct: [id number] Name: VIRGINIA URRUTIA Rep #: [id number] : 1940 F 77 From: Doug Sinclair DO PCP: Kristine Davis DO Status: REG CLI Study: Kidney and Bladder Date of Exam: 01/11/18 Exam# [id number] Ordering Dr: Kristine Davis DO ADDENDUM by Doug Sinclair DO on at 1954 ADDENDUM ADDENDUM: Comparison is made with October 07, 2013 renal ultrasound. The right re na l cystic lesions appear stable. New left renal cyst. Findings in the urinary bladder are new since the previous study. Electronically Signed: Doug Sinclair DO at 19:55 EST Tel [phone], [employer] support , 01/22/181954 Date cc: Kristine Davis [...] Doug Sinclair DO at 23:00 EDT Tel [phone], Service support [phone]- [phone], CC: Kristine Davis DO Orthotic And Prosthetic Technician: Signed 05-Oct-2017 TXT - Blood Flow Screening Result: Comments: See Note; NOTES: [facility] Cardiovascular Services [address] [place] [address] 10/02/17 0928 MR#: [id number] Acct: [id number] Name: VIRGINIA URRUTIA Rep #: [id number] [...] Date Dictated: 10/02/17 0928 Date Transcribed: 10/05/171656 Orthotic And Prosthetic Technician: Signed 02-Oct-2017 SCREENING MAMM (CAD), BILAT Result: Comments: See Note; NOTES: [facility] Imaging Services [address] [place] [address] SCREENING MAMM (CAD), BILAT MR#: [id number] Acct: [id number] Name: VIRGINIA URRUTIA Rep #: [id number] : 1940 F 76 From: Noel Avitia MD PCP: Kristine Davis DO Status: REG CLI Study: SCREENING MAMM (CAD), BILAT Date of Exam: 10/02/17 Exam# [id number] Ordering Dr: Kristine Davis DO MAMMOGRAPHY - [...] Service support , CC: Kristine Davis DO Orthotic And Prosthetic Technician: Signed 14-Sep-2016 Venous Duplex Lower Extremity Result: Comments: See Note; NOTES: [facility] Cardiovascular Services [address] [place] [address] Venous Duplex US, Unilateral 09/14/16 1558 MR#: [id number] Acct: [id number] Name: VIRGINIA YEH Mook Rep #: [id number] : 1940 75 From: Johan Ortega MD [...] Date Dictated: 09/14/16 1558 Date Transcribed: 09/14/161714 Orthotic And Prosthetic Technician: Signed 23-Aug-2016 Re-Evaluation - PT (1) Result: Comments: See Note; NOTES: [facility] Physical Therapy Health[address] [place] [address] Fax REEVALUATION / MEDICARE RUPALRTI MATTHIAS Zamora 4d PHYSICAL THERAPY MR#: [id number] Acct: [id number] Name: VIRGINIA URRUTIA Rep #: [id number] : 1940 75 From: Humberto Aguilar DPT, OCS, CSCS Referring Dr.: OUT OF [facility] DOCTOR Status : REG RCR [facility] Out of [facility] Doctor, It has been my pleasure [...] do not hesitate to contact me at [phone] by phone or if you have questions or concerns regarding this new plan of care! Sincerely, Humberto Aguilar DPT, OC <Electronically signed by PACHECO Delacruz DPT, CSCS> 08/23/16 0929 CC: Kristine Davis DO; OUT [facility] DOCTOR EBG Signed For Medicare only, by signing this I certify the plan of care. Physicians Signature Date 29-Jul-2016 Inital Evaluation (1) - PT Result: Comments: See Note; NOTES: [facility] Physical Therapy [facility] [place], [place] [address] Fax REHABILITATION SERVICES INITIAL EVALUATION MR#: [id number] Acct: [id number] Name: VIRGINIA URRUTIA Rep #: [id number] : 1940 75 From: Humberto Aguilar DPT, PACHECO, CSCS Referring DrDav: OUT OF TOWN DOCTOR Status: REG RCR Insurance: [facility] Patient's Visit Information VIRGINIA URRUTIA is a 75 year old F referred to Physical Therapy by Out [facility] Doctor with a diagnosis of L [...] to be FAXED BACK to us at [phone] for Medica re purposes. Please let me [...] Department Summary Result: Comments: See Note; NOTES: [facility] Medical Records Department [address] [place] [address] Emergency Department Summary MR#: [id number] Acct: [id number] Name: VIRGINIA URRUTIA Rep #: [id number] : 1940 75 From: Byron Harris MD [...] C: Kristine Davis DO T: NTS JOB: [id number] 04/19/16 1814 <Electronically signed by Byron Harris MD> Date Byron Harris MD Cosigner Signature (If Indicated): Date CC: Kristine Davis DO Date Dictated: 04/15/1634 Date Transcrib ed: 04/15/1634 Orthotic And Prosthetic Technician: Signed 15-Apr-2016 Discharge Instruction Result: Comments: See Note; NOTES: [facility] Medical Records Department [address] [place] [address] Discharge Instruction 04/14/162306 MR#: [id number] Acct: [id number] Name: VIRGINIA URRUTIA Mook Rep #: [id number] : 1940 75 From: Byron Harris MD [...] your Primary Care Provider. Call [facility] ([phone]) or report to the closest Emergency Room. Call 911 if necessary. 04/15/16 0118 &#6 0;Electronically signed by Byron Harris MD> Date Byron Harris MD Cosigner Signature (If Indicated): Date CC: Kristine Davis DO 14-Apr-2016 Venous Duplex Imag/Limited/Uni Result: Comments: See Note; NOTES: [facility] Imaging Services [address] [place] [address] Verdana 4d Venous Duplex Imag/Limited/Uni MR#: [id number] Acct: [id number] Name: GHADARHONA Delvalle Rep #: [id number] : 1940 F 75 From: Doug Sinclair DO PCP: Kristine Davis DO Status: REG ER Study: Venous Duplex Imag/Limited/Uni Date of Exam: 04/14/16 Exam# [id number] Ordering Dr: Byron Harris MD STUDY: VENOUS [...] Doug Sinclair DO at 23:15 EST Tel [phone], Service support [phone], CC: Kristine Davis DO; Byron Harris MD Orthotic And Prosthetic Technician: Signed 13-Apr-2016 Spine Lumbar (Routine) Result: Comments: See Note; NOTES: [facility] Imaging Services [address] [place] [address] Verdana 4d Spine Lumbar (Routine) MR#: [id number] Acct: [id number] Name: VIRGINIA URRUTIA Kelly mortensen #: [id number] : 1940 F 75 From: Tiara Parsons MD PCP: Kristine Davis DO Status: REG CLI Study: Spine Lumbar (Routine) Date of Exam: 04/13/16 Exam# [id number] Ordering Dr: Kristine Davis DO STUDY: MRI [...] MD at 11:48 EST , Service support [phone], CC: Kristine Davis DO Orthotic And Prosthetic Technician: Signed 12-Apr-2016 PT D/C Summary (1) Result: Comments: See Note; NOTES: [facility] [address] [facility] [address] [facility] [place], [place] [address] Fax REHABILITATION SERVICES DISCHAR SUMMARY MR#: [id number] Acct: [id number] Name: VIRGINIA URRUTIA Rep #: [id number] : 1940 75 From: Humberto Aguilar DPT, OCS, CSCS Referring DrDav: Kristine Davis DO Status: REG R Insurance: [facility] - PT D/C Summary It has been my pleasure to treat VIRGINIA URRUTIA under orders from Kristine Davis DO, for the diagnosis of R hip pain for a total of 12 visit(s). Discharge Date: [facility] see [facility] for a summary of their discharge [...] help or hurt it. Will be in [place] in May and will have L TKA [...] please feel free to call me at [phone]. Thank eric laureano for the referral of this patient. Sincerely, Humberto Aguilar DPT, OC <Electronically signed by Humberto Aguilar DPT, OCS, CSCS> 04/12/16 1621 CC: Kristine Davis DO EBG Signed 12-Apr-2016 Dexa Bone Density Study (HP) Result: Comments: See Note; NOTES: [facility] Imaging Services [address] [place] [address] Verdana 4d Dexa Bone Density Study (HP) MR#: [id number] Acct: [id number] Name: ENE URRUTIA Rep #: [id number] : 1940 F 75 From: Dashawn Rowe MD PCP: Fast DO,Kristine Status: REG CLI Study: Dexa Bone Density Study (HP) Date of Exam: 04/12/16 Exam# [id number] Ordering Dr: Magallanes DO STUDY: DUAL ENERGY [...] Dashawn Rowe MD at 14:32 EST Tel [phone], Service support [phone], CC: Kristine Davis DO Orthotic And Prosthetic Technician: Signed 10-Mar-2016 Inital Evaluation (1) - PT Result: Comments: See Note; NOTES: [facility] [address] [place] [address]. [address] [place] [id number] Fax REHABILITATION SERVICES INITIAL EVALUATION MR#: [id number] Acct: [id number] Name: VIRGINIA URRUTIA Rep #: [id number] : 1940 75 From: Jennifer Gongora DPT Referring DrDav: Kristine Davis DO Status: REG R Insurance: [facility]'s Visit Information VIRGINIA URRUTIA is a 75 [...] to be FAXED BACK to us at [phone] for Medicare purposes. Please let me know if there are questio ns or concerns regarding this plan of care. Physician Signature: Date: <Electronically signed by Jennifer Gongora DPT> 1243 CC: Kristine Davis DO ELR Signed For Medicare only, by signing this I certify the plan of care. Physicians Signature Date 17-Dec-2015 Echocardiogram Complete Result: Comments: See Note; NOTES: [facility] Cardiovascular Services [address] [place] [address] Echo Complete 12/17/15 1401 MR#: [id number] Acct: [id number] Name: VIRGINIA URRUTIA Rep #: [id number] : 1940 75 From: Chicho Bahena MD Attending Dr: Kristine Davis DO Status: REG CLI Ordering Dr: Kristine Davis DO Date: 12/17/15 Location: [facility] Sex: F C Admitted: Reason For Study: [...] Date Dictated: 12/17/15 1401 Date Transcribed: 12/17/151700 Orthotic And Prosthetic Technician: Signed 11-Dec-2015 Bilat Scrn Digital AND CAD Result: Comments: See Note; NOTES: [facility] Imaging Services [address] [place] [address] Verdana 4d Bilat Scrn Digital AND CAD MR#: [id number] Acct: [id number] Name: VIRGINIA URRUTIA Rep #: [id number] : 1940 F 75 From: Dashawn Rowe MD PCP: Kristine Davis DO Status: REG CLI Study: Bilat Scrn Digital AND CAD Date of Exam: 12/11/15 Exam# [id number] Ordering Dr: Kristine Davis DO MAMMOGRAPHY - [...] delay biopsy of a clinically suspicious abnormality. [id number] Electronically Signed: Dashawn Rowe MD at 8:47 EDT Tel [phone], Service support [phone], CC: Kristine Davis DO Orthotic And Prosthetic Technician: Signed 03-Jan-2015 Emergency Department Summary Result: Comments: See Note; NOTES: [facility] Medical Records Department [address] [place] [address] Emergency Department Summary MR#: [id number] Acct: [id number] Name: VIRGINIA URRUTIA Mook Rep #: [id number] : 1940 74 From: Ivette Cline PCP: [...] Angel Grossman C: Kristine Davis DO T: [facility] JOB: [id number] 01/03/15 2371 <Electronically signed Marija Cline > Date Ivette Cline Cosigner Signature (If Indicated): Date CC: Kristine Davis DO Date Dictated: 12/27/141108 Date Transcribed: 12/27/141108 Orthotic And Prosthetic Technician: Signed 27-Dec-2014 Discharge Instruction Result: Comments: See Note; NOTES: [facility] Medical Records Department [address] [place] [address] Discharge Instruction 12/27/14 1100 MR#: [id number] Acct: [id number] Name: VIRGINIA URRUTIA Rep #: [id number] : 1940 74 From: Ivette Cline PCP: [...] any unexpected problems, contact your doctor. Call [facility] ([phone]) or report to the closest Emergency Room. Call 911 if necessary. 12/27/141105 <Electronically signed by Ivette Cline > Date Ivette Cline Cosigner Signature (If Indicated): Date _ CC: Kristine Davis DO 27-Dec-2014 Spine Cervical without Contras Result: Comments: See Note; NOTES: [facility] Imaging Services [address] [place] [address] Verdana 4d Spine Cervical without Contras MR#: [id number] Acct: [id number] Na me: VIRGINIA URRUTIA Rep #: [id number] : 1940 F 74 From: Doug Sinclair DO PCP: Kristine Davis DO Status: REG ER Study: Spine Cervical without Contras Date of Exam: 12/27/14 Exam# [id number] Ordering Dr : Ivette Cline STUDY: CT [...] Doug Sinclair DO at 10:36 EDT Tel [phone], Service suppo rt [phone], CC: Ivette Cline; Kristine Davis DO Orthotic And Prosthetic Technician: Signed 23-Dec-2014 Emergency Department Summary Result: Comments: See Note; NOTES: [facility] Medical Records Department [address] [facility] [place] [address] Emergency Department Summary MR#: [id number] Acct: [id number] Name: VIRGINIA URRUTIA Rep #: [id number] : 1940 74 From: Se Dawkins MD [...] acute. Se Dawkins MD T: NTS JOB: [id number] 12/23/14 0800 <Electronically signed by Se Dawkins MD> Date Se Dawkins MD Cosigner Signature (If Indicated): Date CC: Kristine Davis DO Date Dictated: 12/23/14707 Date Transcribed: 12/23/14707 Orthotic And Prosthetic Technician: Signed 23-Dec-2014 Discharge Instruction Result: Comments: See Note; NOTES: [facility] Medical Records Department [address] [facility] [place] [address] Discharge Instruction 12/23/14704 MR#: [id number] Acct: [id number] Name: VIRGINIA URRUTIA Rep #: [id number] : 1940 74 From: Se Dawkins MD [...] problems, contact your doctor. Call [facility] ([phone]) or r eport to the closest Emergency Room. Call 911 if necessary. 12/23/14705 <Electronically signed by Se Dawkins MD> Date Se collins MD Cosigner Signature (If Indicated): Date CC: Kristine Davis DO 10-Dec-2014 ELECTROCARDIOGRAM, COMPLETE (ECG) (47018) Result: [MEASUREMENTS ANALYSIS] Date of Test: 12/10/2014 10:23:24; Heart Rate: 91; TX Interval: 144; QRS: 96; QT Interval: 372; Corrected QT Interval (QTc): 426; P Wave [place]: 49; QRS Wave [place]: 35; T Wave [place]: 30; Blood Pressure: 0/0 [ECG DIAGNOSTIC STATEMENTS] Date of Test: 12/10/2014 10:23:24; Summary: Sinus Rhythm Low voltage in limb leads. ABNORMAL 22-Sep-2014 Abdomen/Pelvis WITH Contrast Result: Comments: See Note; NOTES: [facility] Imaging Services [address] [place] [address] CAT Scan Report MR#: [id number] Acct: [id number] Name: VIRGINIA URRUTIA Rep #: [id number] : 1940 F 73 From: Rey Rojo MD PCP: Kristine Davis DO Status: REG CLI Study: Abdomen/Pelvis WITH Contrast Date of Exam: 09/22/14 Exam# [id number] Ordering Dr: Kristine Davis DO STUDY : [...] IMPRESSION: No CT evidence of an ac elem intra-abdominal or pelvic process. Redemonstrated small multiple gallstones and bilateral renal cysts. Normal appendix. Electronically Signed: Rey Rojo MD at 16:58 EDT Te l [phone], Service support [phone], CC: Kristine Davis DO Orthotic And Prosthetic Technician: Signed 31-Mar-2014 Transvaginal Non- Result: Comments: See Note; NOTES: [facility] Imaging Services [address] [place] [address] Ultrasound Report MR#: [id number] Acct: [id number] Name: VIRGINIA URRUTIA Rep #: [id number] : 1940 F 73 From: Dashawn Rowe MD PCP: Kristine Davis DO Status: REG CLI Study: Transvaginal Non- Date of Exam: 03/31/14 Exam# [id number] Ordering Dr: Kristine Davis DO STUD Y: [...] Dashawn Rowe MD at 13:55 EST Tel [phone], Service support [phone], F ax [phone] CC: Kristine Davis DO Orthotic And Prosthetic Technician: Signed 31-Mar-2014 Pelvic (Non ) Result: Comments: See Note; NOTES: [facility] Imaging Services [address] [place] [address] Ultrasound Report MR#: [id number] Acct: [id number] Name: VIRGINIA URRUTIA Rep #: [id number] : 1940 F 73 From: Dashawn Rowe MD PCP: Kristine Davis DO Status: REG CLI Study: Pelvic (Non ) Date of Exam: 03/31/14 Exam# [id number] Ordering Dr: Kristine Davis DO STUDY: U [...] Dashawn Rowe MD at 13:55 EST Tel [phone], Service support [phone], Fax CC: Kristine Davis DO Orthotic And Prosthetic Technician: Signed 22-Jan-2014 Laverne Esparza Digital & CAD Result: Comments: See Note; NOTES: [facility] Imaging Services [address] [place] [address] Breast Imaging Report MR#: [id number] Acct: [id number] Name: VIRGINIA URRUTIA Rep #: [id number] : 1940 F 73 From: Dashawn Rowe MD PCP: Kristine Davis DO Status: REG CLI Exam# [id number] Ordering Dr: Kristine Davis DO MAMMOGRAPHY - [...] Dashawn Rowe MD at 14:49 EST Tel [phone], Ser vice support [phone], CC: Kristine Davis DO Orthotic And Prosthetic Technician: Signed 07-Nov-2013 L/S Spine Min 4 Views Result: Comments: See Note; NOTES: [facility] Imaging Services [address] [place] [address] Radiology Report MR#: [id number] Acct: [id number] Name: VIRGINIA URRUTIA Rep #: [id number] : 1940 F 73 From: Tod Lamas MD PCP: Kristine Davis DO Status: REG CLI Study: L/S Spine Min 4 Views Date of Exam: 11/07/13 Exam# [id number] Ordering Dr: Kristine Davis DO STUDY: X-RA [...] at 18:52 EDT Tel , Service support [phone], CC: Kristine Davis DO Orthotic And Prosthetic Technician: Signed 07-Nov-2013 Thoracic Spine 3 Views Result: Comments: See Note; NOTES: [facility] Imaging Services [address] [place] [address] Radiology Report MR#: [id number] Acct: [id number] Name: VIRGINIA URRUTIA Rep #: [id number] : 1940 F 73 From: Tod Lamas MD PCP: Kristine Davis DO Status: REG CLI Study: Thoracic Spine 3 Views Date of Exam: 11/07/13 Exam# [id number] Ordering Dr: Kristine Davis DO STUDY: X-R [...] at 17:07 EDT Tel , Service support [phone], CC: Kristine Davis DO Orthotic And Prosthetic Technician: Signed 05-Nov-2013 Abdomen/Pelvis without Cont Result: Comments: See Note; NOTES: [facility] Imaging Services [address] [place] [address] CAT Scan Report MR#: [id number] Acct: [id number] Name: VIRGINIA URRUTIA Rep #: [id number] : 1940 F 73 From: Dashawn Rowe MD PCP: Kristine Davis DO Status: REG CLI Study: Abdomen/Pelvis without Cont Date of Exam: 11/05/13 Exam# [id number] Ordering Dr: Kristine Davis DO STUD Y: [...] Dashawn Rowe MD at 15:39 EDT Tel [phone], Service supp ort [phone], CC: Kristine Davis DO Orthotic And Prosthetic Technician: Signed 07-Oct-2013 Kidney and Bladder Result: Comments: See Note; NOTES: [facility] Imaging Services [address] [place] [address] Ultrasound Report MR#: [id number] Acct: [id number] Name: VIRGINIA URRUTIA Rep #: [id number] : 1940 F 72 From: Brook Cummings DO PCP: Kristine Davis DO Status: REG CLI Study: Kidney and Bladder Date of Exam: 10/07/13 Exam# [id number] Ordering Dr: Aquiles Potts STUDY: RENAL ULTRAS [...] , CC: Aquiles Potts; Kristine Davis DO Orthotic And Prosthetic Technician: Signed Immunization Name Dates Details Influenza (3 years and up) on: 17-Dec-2008 Comments: Lot #:[id number] date:mount given:0.5mlRoute: IMSite given:left deltoidGiven by: AYAD [...] smoker Vital Signs Date Test Result Details 53-Cmb-805765:07 Temperature 97.9 f Comments: Method: Temporal Pulse [...] kg/m2 Body Surface Area Calculated 2.08 m2 05-Ufi-870655:00 Temperature 97.4 f Comments: Method: Temporal Pulse [...] 0.00 cm Results Date Description Value Details 83-Jpq-670681:12 ANGTENSIN 1-CONVRT ENZYM Comments: PATIENT NOT FASTINGPERFORMED BY: [employer] [facility] Hospital[facility]EC[facility] [id number] BY: Fe[address] [id number] ([address]1358) YOSEF 30 U/L (Normal) Range: 14-82 01-Udl-683954:12 CCP ANTIBODY (28321) Comments: PATIENT NOT FASTINGPERFORMED BY: [employer] [facility] [id number] BY: [address] [id number] CCP Antibodies IgG/IgA 8 {units} (Normal) Range: 0-19 Comments: Negative <20 Weak positive 20 - 39 Moderate positive 40 - 59 Strong positive >59 13-Snp-656004:12 CAROL (ANTINUCLEAR ANTIBODY) Comments: PATIENT NOT FASTINGPERFORMED BY: [employer] [facility] [id number] BY: [address] [id number] (84282) CAROL Direct Negative (Normal) 22-Xrn-517592:12 RHEUMATOID FACTOR-QUANT Comments: PATIENT NOT FASTINGPERFORMED BY: [address] [id number] BY: [address] [id number] (31098) RA Latex Turbid. <10.0 {IU/mL} (Normal) Range: 0.0-13.9 70-Bml-158727:12 SED RATE ERYTHROCYTE Comments: PATIENT NOT FASTINGPERFORMED BY: [address] [id number] BY: [address] [id number] (67253) Sedimentation Rate-Westergren 15 mm/h (Normal) Range: 0-40 48-Lxr-115678:12 C-REACTIVE PROTEIN Comments: PATIENT NOT FASTINGPERFORMED BY: [place] 0817[address] [facility] [id number] BY: [address] [id number] (89891) C-Reactive Protein, Quant 2.9 mg/L (Normal) Range: 0.0-4.9 94-Dfo-552582:12 CBC, PLATELETS & AUT DIFF Comments: PATIENT NOT FASTINGPERFORMED BY: [address] [id number] BY: [address] [id number] (17306) Immature Grans (Abs) 0.0 {x10E3/uL} (Normal) Range: [...] 3.77-5.28 WBC 7.8 {x10E3/uL} (Normal) Range: 3.4-10.8 07-Ymc-468668:12 VITAMIN B-12 Comments: PATIENT NOT FASTINGPERFORMED BY: [employer] [facility] [id number] BY: [employer] [id number] (CYANOCOBALAMIN) (03948) Vitamin B12 579 pg/mL (Normal) Range: 232-1245 61-Ltg-31575:31 LIPID PANEL (11158) Comments: PATIENT WAS FASTINGPERFORMED BY: MindjetMonmouth Medical CenterDvfzsp[address] [facility] [id number]; appt 01/02 LDL/HDL Ratio 1.9 {ratio} (Normal) [...] be changing to: Male Female 40 - 680220 50 - 235317 Triglycerides 145 mg/dL (Normal) Range: 0-149 Cholesterol, Total 240 mg/dL (Abnormal) Range: 100-199 30-Beu-96739:31 METABOLIC PANEL, COMPREHENSIVE Comments: PATIENT WAS FASTINGPERFORMED BY: LISBETH [employer]here 3d70 [facility]ivaRegaliiECU [facility] [id number] (33584) ALT (SGPT) 16 [iU]/L (Normal) Range: 0-32 [...] 8-27 Glucose 98 mg/dL (Normal) Range: 65-99 50-Afp-160571:13 METABOLIC PANEL, BASIC Comments: PATIENT NOT FASTINGPERFORMED BY: LISBETH Sunovia6370 [facility]ivaRegaliiEC[facility] [id number]; review on 01/02 (42283) Calcium 9.9 mg/dL (Normal) Range: 8.7-10.3 Carbon [...] (Gamma Glutamyl Comments: PATIENT NOT FASTINGPERFORMED BY: [employer] Gwktjr[address] [place] [id number] [employer]) (61026) GGT 20 [iU]/L (Normal) Range: 0-60 87-Lrm-659410:38 Alkaline Phosphatase (38657) Comments: PATIENT NOT FASTINGPERFORMED BY: [employer] Yksbzv4862 [place] [id number] Alkaline Phosphatase 131 [iU]/L (Abnormal) Range: 39-117 81-Ljv-140701:38 THYROXINE FREE (57274) Comments: PATIENT NOT FASTINGPERFORMED BY: [employer] Vdgyex7409 [address] [id number] T4,Free(Direct) 1.92 ng/dL (Abnormal) Range: 0.82-1.77 34-Duf-905861:38 FREE TRIDOTHYRONINE (T3) (82337) Comments: PATIENT NOT FASTINGPERFORMED BY: [employer] Vuqxot1189 [address] [id number] Triiodothyronine,Free,Serum 2.4 pg/mL (Normal) Range: 2.0-4.4 29-Qnk-459378:38 VITAMIN B-12 (CYANOCOBALAMIN) Comments: PATIENT NOT FASTINGPERFORMED BY: [employer] Ewvgwf7040 [facility] [id number] (44565) Vitamin B12 665 pg/mL (Normal) Range: 232-1245 28-Asr-17039:06 VITAMIN B-12 (CYANOCOBALAMIN) Comments: PATIENT NOT FASTINGPERFORMED BY: [facility] [facility] [id number] (49130) Vitamin B12 1301 pg/mL (Abnormal) Range: 232-1245 2-Vjl-979707:25 Metabolic Panel, Comprehensive Comments: PATIENT NOT FASTINGPERFORMED BY: [facility] [facility] [id number]; review on 08/28 (88818) ALT (SGPT) 10 [iU]/L (Normal) Range: 0-32 [...] 8-27 Glucose 84 mg/dL (Normal) Range: 65-99 8-Pme-198346:25 CBC WITH MANUAL DIFF (06068) Comments: PATIENT NOT FASTINGPERFORMED BY: [employer] [facility] [id number] Immature Grans (Abs) 0.0 {x10E3/uL} (Normal) Range: [...] 3.77-5.28 WBC 7.9 {x10E3/uL} (Normal) Range: 3.4-10.8 4-Tzq-881628:59 METABOLIC PANEL, COMPREHENSIVE Comments: PATIENT NOT FASTINGPERFORMED BY: [address] [facility] [id number] (09303) ALT (SGPT) 10 [iU]/L (Normal) Range: 0-32 [...] 88 mg/dL (Normal) Range: 65-99 :46 TSH (28244) Comments: 6 weeks; PATIENT NOT FASTINGPERFORMED BY: [employer] Fcvsmx6[address] [facility] [id number] TSH 2.420 {uIU/mL} (Normal) Range: 0.450-4.500 :23 LIPID PANEL (81138) Comments: PATIENT WAS FASTINGPERFORMED BY: Lucid SoftwareMonmouth Medical CenterTaakuf7[address] [facility] [id number] LDL/HDL Ratio 1.6 {ratio_units} (Normal) Range: 0.0-3.2 Comments: LDL/HDL Ratio Men Women 1/2 Avg.Risk 1.0 1.5 Av g.Risk 3.6 3.2 2X Avg.Risk 6.2 5.0 3X Avg.Risk 8.0 6.1 LDL Cholesterol Calc 125 mg/dL (Abnormal) Range: 0-99 VLDL Cholesterol Meliton 25 mg/dL (Normal) Range: 5-40 HDL Cholesterol 78 mg/dL (Normal) Triglycerides 124 mg/dL (Normal) Range: 0-149 Cholesterol, Total 228 mg/dL (Abnormal) Range: 100-199 69-Afe-14138:23 METABOLIC PANEL, COMPREHENSIVE Comments: PATIENT WAS FASTINGPERFORMED BY: [facility] Sffibv5[address] [facility] [id number] (88373) ALT (SGPT) 15 [iU]/L (Normal) Range: 0-32 [...] Range: 65-99 :23 CBC W/AUTO DIFF WBC (12947) Comments: PATIENT WAS FASTINGPERFORMED BY: [employer] Ycxpoo4[address] [facility] [id number] Immature Grans (Abs) 0.0 {x10E3/uL} (Normal) Range: [...] (Normal) Range: 3.4-10.8 :23 Vitamin D Hydroxy (32502) Comments: PATIENT WAS FASTINGPERFORMED BY: [facility] Xrlzya8[address] [facility] [id number] Vitamin D, 25-Hydroxy 41.5 ng/mL (Normal) Range: 30.0-100.0 Comments: Vitamin D deficiency has been defined by the [place] ofMedicine and an Endocrine Society practice guideline as alevel of serum 25-OH vitamin D less than 20 ng/mL (1,2).The Endocrine Society went on to further define vitamin Dinsufficiency as a level between 21 and 29 ng/mL (2).1. IOM ([place]antry of Medicine). 2010. Dietary reference intakes for calcium and D. [place]: The National Academies Press.2. Seng MF, Theresa ROMERO, Kieran KOWALSKI, et al. Evaluation, treatment, and prevention of vitamin D deficiency: an Endocrine Society clinical practice guideline. JCEM. 2010; 96(7):1911-30. :23 TSH (89445) Comments: PATIENT WAS FASTINGPERFORMED BY: [facility] Tcorel3353 Oliva RoadDublin [place] [id number] TSH 0.429 {uIU/mL} (Abnormal) Range: 0.450-4.500 :23 VITAMIN B-12 (CYANOCOBALAMIN) Comments: PATIENT WAS FASTINGPERFORMED BY: [facility] Miwkvq1780 [address] [facility] [place] [id number] (18126) Vitamin B12 553 pg/mL (Normal) Range: 211-946 5-Lqj-558517:52 CBC, PLATELETS & MANUAL DIFF Comments: PATIENT NOT FASTINGPERFORMED BY: [facility] Wbfkzp9492 [address] [facility] [place] [id number] (26896) Immature Grans (Abs) 0.0 {x10E3/uL} (Normal) Range: [...] 3.4-10.8 :09 Basic Metabolic Profile (BMP) Comments: [facility] Jraodicxjh[address] [place], [address] GAP 9 (Normal) Range: 5-15 CO2 29.0 [...] :09 CBC-Complete Blood Cnt No Diff Comments: [facility] Djfkxfrxoy[address] [place], [address] MPV 9.1 fL (Normal) Range: 6.2-12.0 PLT [...] 5.7 K/mm3 (Normal) Range: 4.4-11.0 :53 Magnesium (92381) Comments: PATIENT NOT FASTINGPERFORMED BY: [facility] Nbbfca51[address] [facility] [id number] Magnesium, Serum 1.9 mg/dL (Normal) Range: 1.6-2.3 :53 METABOLIC PANEL, COMPREHENSIVE Comments: PATIENT NOT FASTINGPERFORMED BY: [facility] Rkqymf17[address] [facility] [id number]; non- emergent till apt (93104) ALT (SGPT) 18 [iU]/L (Normal) Range: 0-32 [...] Glucose, Serum 83 mg/dL (Normal) Range: 65-99 80-Ndr-62354:53 TSH (13536) Comments: PATIENT NOT FASTINGPERFORMED BY: [employer] [facility] Xkfmys67[address] [facility] [id number] TSH 1.810 {uIU/mL} (Normal) Range: 0.450-4.500 86-Cwc-133197:15 Vitamin D Hydroxy (44971) Comments: PATIENT NOT FASTINGPERFORMED BY: CB [facility] Dkctei53[address] [facility] [id number] Vitamin D, 25-Hydroxy 28.3 ng/mL (Abnormal) Range: 30.0-100.0 Comments: Vitamin D deficiency has been defined by the [place]antry ofMedicine and an Endocrine Society practice guideline as alevel of serum 25-OH vitamin D less than 20 ng/mL (1,2).The Endocrine Society went on to further define vitamin Dinsufficiency as a level between 21 and 29 ng/mL (2).1. IOM (Bantry of Medicine). 2010. Dietary reference intakes for calcium and D. [place]: The National Academies Press.2. Seng MF, Theresa ROMERO, Kieran KOWALSKI, et al. Evaluation, treatment, and prevention of vitamin D deficiency: an Endocrine Society clinical practice guideline. JCEM. 2010; 96(7):1911-30. 97-Cxc-960228:15 VITAMIN B-12 (CYANOCOBALAMIN) Comments: PATIENT NOT FASTINGPERFORMED BY: Lucid SoftwareMonmouth Medical CenterKnilxx2322 [facility] [id number] (43090) Vitamin B12 447 pg/mL (Normal) Range: 211-946 29-Rpu-660169:15 CBC W/AUTO DIFF WBC Comments: PATIENT NOT FASTINGPERFORMED BY: [employer] Hznrnf9604 [facility] [id number] Information: SRC: ([id number]) Immature Grans (Abs) 0.0 {x10E3/uL} (Normal) Range: [...] 3.77-5.28 WBC 5.6 {x10E3/uL} (Normal) Range: 3.4-10.8 80-Bsp-047096:15 METABOLIC PANEL, COMPREHENSIVE Comments: PATIENT NOT FASTINGPERFORMED BY: LabCoMonmouth Medical CenterZmiuuk4858 [facility] [id number] (43271) ALT (SGPT) 13 [iU]/L (Normal) Range: 0-32 [...] Glucose, Serum 87 mg/dL (Normal) Range: 65-99 71-Pqs-602849:50 Urinalysis, Office (33852) UA - LEUKOCYTE ESTERASE Trace (Normal) UA - NITRITE Negative (Normal) URINE UROBILINGN TUNDE TIMED Normal mg/dL (Normal) UA - PROTEIN Negative mg/dL (Normal) UA - PH 5 (Abnormal) UA - BLOOD Negative (Normal) UA - SPECIFIC GRAVITY 1.025 (Normal) UA - KETONES Negative mg/dL (Normal) UA - BILIRUBIN Negative (Normal) UA - GLUCOSE Negative (Normal) 22-Zfw-357622:15 URINE CESAR CULTURE (TUNDE COL Comments: PATIENT NOT FASTINGPERFORMED BY: [facility]At[facility] [id number] COUNT) (66738) Result 1 MUG (Normal) Comments: Mixed urogenital floraGreater than 100,000 colony forming units per mL Urine Culture,Comprehensive Final report (Normal) 90-Ivm-520454:29 URINE CESAR CULTURE-IDENTIFICATN Comments: PATIENT NOT FASTINGPERFORMED BY: 4s91.comECU [facility] [id number] Information: [id number] (13297) Result 1 MUG (Normal) Comments: Mixed urogenital flora1,000 Colonies/mL Urine Culture,Comprehensive Final report (Normal) 19-Hut-545625:29 URINE CESAR CULTURE-TUNDE COL Comments: PATIENT NOT FASTINGPERFORMED BY: [facility] [id number] Information: SRC:UR [id number] COUNT (13169) Result 1 MUG (Normal) Comments: Mixed urogenital flora25,000-50,000 colony forming units per mL Urine Final report (Normal) Culture,Comprehensive 77-Lok-976064:07 Urinalysis, Office (36566) UA - LEUKOCYTE ESTERASE Small (Normal) UA - NITRITE Negative (Normal) URINE UROBILINGN TUNDE TIMED Normal mg/dL (Normal) UA - PROTEIN Negative mg/dL (Normal) UA - PH 5 (Abnormal) UA - BLOOD Hemolyzed Trace (Normal) UA - SPECIFIC GRAVITY 1.015 (Normal) UA - KETONES Negative mg/dL (Normal) UA - BILIRUBIN Negative (Normal) UA - GLUCOSE Negative (Normal) 5-Aax-169965:02 URINE CESAR CULTURE (TUNDE Comments: PATIENT NOT FASTINGPERFORMED BY: [employer] Egcavx43[address] [facility] [id number] Information: SRC:[facility] [id number] COL COUNT) (96590) Result 1 NG36 (Normal) Comments: No growth in 36 - 48 hours. Urine Culture,Comprehensive Final report (Normal) 17-Sep-20149:51 CBC With Differential/Platelet Comments: PATIENT NOT FASTINGPERFORMED BY: [employer] Wjgniv6[address] [facility] [id number] Information: [id number] Immature Grans (Abs) 0.0 {x10E3/uL} (Normal) Range: [...] (14) Comments: PATIENT NOT FASTINGPERFORMED BY: [facility] Vwkvzs50[address] [facility] [id number] ALT (SGPT) 11 [iU]/L (Normal) Range: 0-32 [...] Glucose, Serum 89 mg/dL (Normal) Range: 65-99 98-Jws-35098:13 SED RATE ERYTHROCYTE (77051) Comments: PATIENT WAS FASTINGPERFORMED BY: [facility] [facility] [id number] Sedimentation Rate-Westergren 6 mm/h (Normal) Range: 0-40 :13 C-REACTIVE PROTEIN (18917) Comments: PATIENT WAS FASTINGPERFORMED BY: [facility] [facility] [id number] C-Reactive Protein, Quant 2.2 mg/L (Normal) Range: 0.0-4.9 :13 CBC W/AUTO DIFF WBC Comments: PATIENT WAS FASTINGPERFORMED BY: [facility] [facility] [id number] Information: [id number] (04682) Immature Grans (Abs) 0.0 {x10E3/uL} (Normal) Range: [...] 4.6 {x10E3/uL} (Normal) Range: 3.4-10.8 :13 TSH (99545) Comments: PATIENT WAS FASTINGPERFORMED BY: 4s91.comEC[facility] [id number] TSH 0.584 {uIU/mL} (Normal) Range: 0.450-4.500 48-Blq-212055:42 Urinalysis, Office (90718) UA - LEUKOCYTE ESTERASE Small (Normal) UA - NITRITE Negative (Normal) URINE UROBILINGN TUNDE TIMED Normal mg/dL (Normal) UA - PROTEIN Negative mg/dL (Normal) UA - PH 6 (Abnormal) UA - BLOOD Negative (Normal) UA - SPECIFIC GRAVITY 1.025 (Normal) UA - KETONES Negative mg/dL (Normal) UA - BILIRUBIN Negative (Normal) UA - GLUCOSE Negative (Normal) 16-Lke-017288:43 URINE CESAR CULTURE (TUNDE Comments: PATIENT NOT FASTINGPERFORMED BY: [facility] [id number] Information: SRC:UR [id number] COL COUNT) (57360) Result 1 MUG (Normal) Comments: Mixed urogenital flora25,000-50,000 colony forming units per mL Urine Final report (Normal) Culture,Comprehensive :13 Vitamin D Hydroxy (85117) Comments: PATIENT WAS FASTINGPERFORMED BY: [employer] LabDitto Oamuyp2371 [facility] [id number] Vitamin D, 25-Hydroxy 38.7 ng/mL (Normal) Range: 30.0-100.0 Comments: Vitamin D deficiency has been defined by the Bantry ofMedicine and an Endocrine Society practice guideline as alevel of serum 25-OH vitamin D less than 20 ng/mL (1,2).The Endocrine Society went on to further define vitamin Dinsufficiency as a level between 21 and 29 ng/mL (2).1. IOM (Bantry of Medicine). 2010. Dietary reference intakes for calcium and D. [place]: The National Academies Press.2. Seng MF, Theresa NC, Kieran KOWALSKI, et al. Evaluation, treatment, and prevention of vitamin D deficiency: an Endocrine Society clinical practice guideline. JCEM. 2010; 96(2):7121-30. :13 LIPID PANEL (33461) Comments: PATIENT WAS FASTINGPERFORMED BY: [employer] Xbfqcu110[address] [facility] [id number] LDL/HDL Ratio 1.8 {ratio_units} (Normal) Range: 0.0-3.2 [...] PANEL, COMPREHENSIVE Comments: PATIENT WAS FASTINGPERFORMED BY: [employer] Iutoqi8[address] [facility] [id number] (27101) ALT (SGPT) 14 [iU]/L (Normal) Range: 0-32 [...] Glucose, Serum 86 mg/dL (Normal) Range: 65-99 03-Riq-13876:13 VITAMIN B-12 (CYANOCOBALAMIN) Comments: PATIENT WAS FASTINGPERFORMED BY: [address] [facility] [id number] (90458) Vitamin B12 >1999 pg/mL (Abnormal) Range: 211-946 37-Psh-859093:00 Metabolic Panel, Basic Comments: 6 weeks; PATIENT NOT FASTINGPERFORMED BY: [address] [facility] [id number] Information: [id number] (01682) Calcium, Serum 9.7 mg/dL (Normal) Range: 8.6-10.2 [...] Glucose, Serum 90 mg/dL (Normal) Range: 65-99 73-Mnf-407703:24 URINE CESAR CULTURE-IDENTIFICATN Comments: PATIENT NOT FASTINGPERFORMED BY: [facility] [facility] [id number] Information: [id number] (40105) Result 1 ENTEGA (Abnormal) Comments: Enterococcus mdfcvezomu97,000-25,000 colony forming units per mLNote: For enterococci with intrinsic intermediate-level resistance tovancomycin, such as E. casseliflavus and E. gallinarum, VRE infection control measures are not applicable, per the CLSI (formerly NCCLS).For Enterococcus species, cephalosporins, aminoglycosides (except forhigh-level resistance screening), clindamycin, and trimethoprim-curtis lfamethoxazole are not effective clinically. Fluoroquinolones areused primarily for treating urinary tract infections. (CLSI, B325-J89,2009) S = Susceptible; I = Intermediate; R = Resistant * P = Positive; N = Negative MICS are expressed in micrograms per mL Antibiotic RSLT#1 RSLT#2 RSLT#3 RSLT#4Ciprofloxacin SGentami lien 500 SLevofloxacin SNitrofurantoin IPenicillin SStreptomycin 2000 STetracycline SVancomycin R Urine Final report (Abnormal) Culture,Comprehensive 49-Mhr-590904:51 METABOLIC PANEL, Comments: PATIENT NOT FASTINGPERFORMED BY: [facility] [facility] [id number] Information: [id number] COMPREHENSIVE (34585) ALT (SGPT) 20 [iU]/L (Normal) Range: 0-32 [...] Glucose, Serum 80 mg/dL (Normal) Range: 65-99 87-Zeh-643562:04 Microscopic Examination Comments: PATIENT NOT FASTINGPERFORMED BY: [employer] Ktjluv4[address] [facility] [id number] Bacteria Few (Normal) Mucus Threads Present (Normal) Epithelial Cells (non renal) 0-10 {/hpf} (Normal) Range: 0 - 10 RBC None seen {/hpf} (Normal) Range: 0 - 2 WBC None seen {/hpf} (Normal) Range: 0 - 5 09-Cvk-057477:04 URINE CESAR CULTURE (TUNDE COL Comments: PATIENT NOT FASTINGPERFORMED BY: [employer] [facility] Fjqabt6[address] [facility] [id number] COUNT) (00206) Antimicrobial MIHEAD (Normal) Comments: S = Susceptible; [...] mL (Abnormal) Urine Final report Culture,Comprehensive (Abnormal) 11-Kfw-155947:04 URINALYSIS, W/ MICRO Comments: PATIENT NOT FASTINGPERFORMED BY: [facility] [facility] [id number] Information: SRC: [id number] (29976) Microscopic Examination See below: (Normal) Comments: Microscopic was indicated and was performed. Microscopic Examination MICRON (Normal) Comments: Microscopic follows if indicated. Nitrite, Urine Negative (Normal) Bilirubin Negative (Normal) Urobilinogen,Semi-Qn 0.2 mg/dL (Normal) Range: 0.0-1.9 Ketones Negative (Normal) Occult Blood Negative (Normal) Glucose Negative (Normal) Protein Negative (Normal) WBC Esterase Negative (Normal) Appearance Clear (Normal) Urine-Color Yellow (Normal) pH 6.0 (Normal) Range: 5.0-7.5 Specific Ramah 1.010 (Normal) Range: 1.005-1.030 56-Aif-656812:00 METABOLIC PANEL, Comments: PATIENT NOT FASTINGPERFORMED BY: [facility] [facility] [id number] Information: [id number] COMPREHENSIVE (94364) ALT (SGPT) 11 [iU]/L (Normal) Range: 0-32 [...] CHOL 200 mg/dL (Normal) Comments: <200 mg/dL Omipkwhmq175-119 mg/dL Borderline>240 mg/dL High Risk :26 TSH 1.85 {uIU/mL} (Normal) Range: 0.358-3.74 :26 VITD 72.9 mg/mL (Normal) Comments: will review at 11-05 appt Comments: Vitamin D 25(OH) Status RangeDeficiency <20 ng/mL (50nmol/L)Insuffciency 20 - 30 ng/mL (50 - 75 nmol/L)Sufficiency 30 - 100 ng/mL (75 - 250 nmol/L)Toxicity >100 ng/mL (>250 nmol/L) 1-Ciy-498421:05 Urinalysis, Office (98808) UA - LEUKOCYTE ESTERASE Negative (Normal) UA - NITRITE Negative (Normal) URINE UROBILINGN TUNDE TIMED 2 mg/dL (Normal) UA - PROTEIN 30 mg/dL (Normal) UA - PH 6.0 (Normal) Comments: 5.5 UA - BLOOD Negative (Normal) UA - SPECIFIC GRAVITY 1.030 (Abnormal) UA - KETONES Small mg/dL (Normal) UA - BILIRUBIN Negative (Normal) UA - GLUCOSE Negative (Normal) 5-Rur-541552:33 URINE CESAR CULTURE-TUNDE COL Comments: PERFORMED BY: [employer] [place] [id number] COUNT (71694) Result 1 MUG (Normal) Comments: Mixed urogenital flora10,000-25,000 colony forming units per mL Urine Final report (Normal) Culture,Comprehensive 66-Ush-506237:52 URINE CESAR CULTURE-TUNDE COL Comments: PATIENT NOT FASTINGPERFORMED BY: 4s91.comEC[facility] [id number] Information: SRC:UR [id number] COUNT (09306) Antimicrobial MIHEAD (Normal) Comments: S = Susceptible; [...] CHOL 203 mg/dL (Abnormal) Comments: <200 mg/dL Beyqrrxhp662-258 mg/dL Borderline>240 mg/dL High Risk :47 TSH 1.52 {uIU/mL} (Normal) Range: 0.358-3.74 :47 VITD 59.3 mg/mL (Normal) Comments: Vitamin D 25(OH) Status RangeDeficiency <20 ng/mL (50nmol/L)Insuffciency 20 - 30 ng/mL (50 - 75 nmol/L)Sufficiency 30 - 100 ng/mL (75 - 250 nmol/L)Toxicity >100 ng/mL (>250 nmol/L) 9-Kxk-575665:44 CBC, PLATELETS & AUT DIFF Comments: PATIENT NOT FASTINGPERFORMED BY: LabCoMonmouth Medical CenterYjsylb4350 [facility] [id number] Information: [id number] (99199) Immature Grans (Abs) 0.0 {x10E3/uL} (Normal) Range: [...] (Normal) Range: 3.4-10.8 :44 FOLIC ACID SERUM (41898) Comments: PATIENT NOT FASTINGPERFORMED BY: MindjetMountain View Regional Medical CenterHrgmzt04[address] [facility] [id number] Folate (Folic Acid), Serum 14.4 ng/mL (Normal) Comments: A serum folate concentration of less than 3.1 ng/mL isconsidered to represent clinical deficiency. :44 RETICULOCYTE COUNT [facility] Comments: PATIENT NOT FASTINGPERFORMED BY: MindjetMonmouth Medical CenterPswoxd4[address] [facility] [id number] (61275) Reticulocyte Count 1.1 % (Normal) Range: 0.6-2.6 :44 LDH (LD) (LACTATE DEHYDROGENASE) Comments: PATIENT NOT FASTINGPERFORMED BY: MindjetMonmouth Medical CenterKbqbxt0843 [facility] [id number] (34456) LDH 250 [iU]/L (Abnormal) Range: 0-214 5-Jcs-767804:44 IRON BINDING CAPACITY (TIBC) Comments: PATIENT NOT FASTINGPERFORMED BY: MindjetMonmouth Medical CenterTxrjfm4849 [facility] [id number] (26515) Iron Saturation 16 % (Normal) Range: 15-55 Iron, Serum 52 ug/dL (Normal) Range: 35-155 UIBC 270 ug/dL (Normal) Range: 150-375 Iron Bind.Cap.(TIBC) 322 ug/dL (Normal) Range: 250-450 :44 FERRITIN (90084) Comments: PATIENT NOT FASTINGPERFORMED BY: [facility] Rrximd47[address] [place] [place] [id number] Ferritin, Serum 42 ng/mL (Normal) Range: 15-150 [...] Rowe M.D.July 23, 2012 at 2:35:49 PM [id number] Signed GP/GP If you are the referring physicia n and would like to consult with theradiologist who provided this interpretation, please contact Ofelia Rodriguez at [phone]. If this radiologist is unavailable, youwill be directed to [facility] radiologist to assist. If you are a patient with a question regarding this report, pleasecontactyour referring physician directly. Professional Interpretation Provided By: [employer], Phone , These documents contain legally protected [...] 3 1439 Sign by: Dashawn Rowe MD 9-Vde-942077:59 KIDNEY Radiology Report See Note (Normal) Comments: [...] Welsh M.D.July 11, 2012 at 5:00:06 PM [id number] Signed TT/TT If you are the referring physician and would like to consult with theradiologist who provided this interpretation, please contact Brittney Mccormack M.D. at [phone]. If this radiologist is unavailable, youwillbe directed to another radiologist to assist. If you are a patient with a question regarding this report, pleasecontactyour referring physician directly. Professional Interpretat ion Provided By: [employer], Phone , These documents contain legally protected and confidential healthinformation intended only for the use of the individual or entity [facility]. If you are not the intended [...] on 07/11/121825 Sign by: Brittney Welsh MD 5-Fgb-552882:59 TRANSVAGINAL NON- Radiology Report See Note (Normal) [...] Welsh M.D.July 11, 2012 at 4:45:28 PM [id number] Signed TT/TT If you are the referring physician and would like to consult with sebastian taylorogjudi who provided this interpretation, please contact Brittney Mccormack M.D. at [phone]. If this radiologist is unavailable, youwillbe directed to another radiologist to assist. If you are a p atient with a question regarding this report, pleasecontactyour referring physician directly. Professional Interpretation Provided By: [employer], Phone , These documents contain legally protected [...] CHOL 210 mg/dL (Abnormal) Comments: <200 mg/dL Qsgrlvhvj883-559 mg/dL Borderline>240 mg/dL High Risk :44 MG 1.8 mg/dL (Normal) Range: 1.8-2.4 :44 SED tSEDRATE 18 mm/h (Normal) Range: 0-30 :44 TSH 8.94 {uIU/mL} (Abnormal) Range: 0.358-3.74 :44 VITD 90.8 ng/mL (Normal) Comments: Vitamin D 25(OH) Status RangeDeficiency <20 ng/mL (50nmol/L)Insufficiency 20 - 30 ng/mL (50 - 75 nmol/L)Sufficiency 30 - 100 ng/mL (75 - 250 nm ol/L)Toxicity >100 ng/mL (250 nmol/L)Effective 201204-Jul-201246-Vav-585576:29 ABDOMEN/PELVIS WITH CONTRAST Radiology Report See Note [...] to well characterize low-attenuation left renal lesion,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 Consider follow-up renal sonographyforfurther evaluation as clinically warranted. Signed:Matilda AvilesJuly 04, 2012 at 5:12:21 PM [id number] Signed DL/DL If you are the referring physician and would like to consult with theradiologist who provided this interpretation, please contact Ofelia Kyle at [phone]. If this radiologist is unavailable, youwillbe directed to another radiologist to assist. If you are a patient with a question regarding this report, pleasecontactyo ur referring physician directly. Professional Interpretation Provided By: [employer], Phone , These documents contain legally protected [...] on 07/04/121714 Sign by: Salinas Champion MD 40-Weo-664563:18 CRE GFRAA 41 mL/min (Abnormal) GFR 34 mL/min (Abnormal) CREAT 1.6 mg/dL (Abnormal) Range: 0.6-1.0 37-Glx-260270:15 BMP GAP 7 (Normal) Range: 5-15 CO2 [...] pg/mL (Normal) Range: 211-946 Comments: Performed at: [address] [id number] Director: Patito Segovia MD, Phone: [phone] :[phone] CBCMD RBCM NORM C+C {NORMAL} (Normal) [...] D deficiency has been defined by the [place] ofMedicine and an Endocrine Society practice guideline as alevel of serum 25-OH vitamin D less than 20 ng/mL (1,2).The Endocrine Society went on to further define vitamin Dinsufficiency as a level between 21 and 29 ng/mL (2).1. IOM ([place] of Medicine). 2010. Dietary reference intakes for calcium and D. [place]: The National Academies Press.2. Seng MF, Theresa ROMERO, Kieran KOWALSKI, et al. Evaluation, treatment, and prevention of vitamin D deficiency: an Endocrine Society clinical practice guideline. JCEM. 2010; 96(7):1911-30. 96-Tpt-387786:37 BREAST UNILATERAL Radiology Report See Note (Normal) [...] Category 3: Probably Benign Finding - Initial Qfbmu-UkzupldiNnfoah-uv Suggested. Signed:Dashawn Rowe M.D.November 09, 2011 at 2:49:17 PM [id number] Signed GP/GP If you are the referring physician and would like to consult with theradiologist who provided this interpretation, please contact Herb blake M.D. at [phone]. If this radiologist is unavailable, youwill be directed to another radiologist to assist. If you are a patient with a question regarding this report, pleasecontactyour referri ng physician directly. Professional Interpretation Provided By: [employer], Phone , These documents contain legally protected [...] 11/09/11 1456 Sign by: Dashawn Rowe MD 58-Ynt-059098:47 BREAST UNILATERAL Radiology Report See Note (Normal) [...] Category 3: Probably Benign Finding - Initial Hxxdo-YzdmyeapXwioqw-gf Suggested. To consult with a radiologist regarding this report, please call our 52I7gjualve line @ Dictated on 06/22/11 1428 by Soledad CARRANZA,Tacobed on 06/22/11 1547 by ITS IMPORTSign by Dashawn Rowe MD on 06/22/11 1548 Sign by: ___ Dashawn Rowe MD 52-Son-711018:47 UNILAT LT DIAG DIGITAL & CAD Radiology [...] radiologist regarding this report, please call our 56Y6lovoyzi line @ Dictated on 06/22/11 1357 by Taco Rowe MDbed on 1450 by ITS IMPORTSign by Dashawn Rowe MD on 06/22/11 1451 Sign by: Dashawn Rowe MD 7-Yqo-148518:14 CERV SPINE,MIN 4 VIEWS Radiology Report See [...] radiologist regarding this report, please call our 30W9mpevvwk line @ Dictated on 04/13/11 1408 by LISANDRA DUMONT MDTranscribed on 04/14/11 1628 by ITS IMPORTSign by Mook DUMONT MD on 04/14/11 1629 Sign by: LISANDRA DUMONT MD 88-Hfn-33056:38 CBCD,SMEAR DIFF RED CELL MORPH SeeNote {NORMAL} [...] or = 500 mg/dL :38 VIT D,25 58152 47.8 ng/mL (Normal) Range: 30.0-100.0 Comments: Vitamin D deficiency has been defined by the [place] ofMedicine and an Endocrine Society practice guideline as alevel of serum 25-OH vitamin D less than 20 ng/mL (1,2).The Endocrine Society went on to further define vitamin Dinsufficiency as a level between 21 and 29 ng/mL (2).1. IOM ([place] of Medicine). 2011. Dietary reference intakes for calcium and D. [place]: The National Academies Press.2. Seng MF, Theresa ROMERO, Kieran KOWALSKI, et al. Evaluation, treatment, and prevention of vitamin D deficiency: an Endocrine Society clinical practice guideline. JCEM. 2010; 96(7): 1911-30.Performed at: [facility] [address] [id number] Director: Patito Segovia MD, Phone: [phone] :[phone] VITAMIN B12 781 pg/mL (Normal) Range: 254-1320 Comments: There is a low frequency possibility that high titers ofintrinsic blocking antibodies may not be completely inactivated during the reaction pretreatment stepof this testing method. If test results are i n conflictwith the clinical diagnosis, patient should be testedfor the presence of intrinsic factor blocking antibodies. 88-Dhj-069558:29 DEXA BONE DENSITY STUDY (HP) Comments: appt [...] 02/02/11 0843 Sign by: Dashawn Rowe MD 81-Hox-699108:03 Thin prep Pap Comments: Source.............Cervical;EndocervicalNo. of containers..01 CYTYC Thin Prep VialPERFORMED BY: [facility] [id number] Information: [id number] ([id number]) Note: PAPSMR (Normal) Comments: The Pap smear [...] ; Routine gynecolog ical examina Deidre Aguila Data Operations Director (ASCP) 90-Wss-648584:01 BILAT SCRN DIGITAL & CAD Radiology Report [...] 11/10/10 1453 Sign by: Dashawn Rowe MD 62-Qid-234299:16 COMP METABOLIC Comments: appt 11/05/10 GAP 10 [...] :16 TSH 0.99 {uIU/mL} (Normal) Range: 0.358-3.74 37-Szn-718469:16 VIT D,25 48696 45.6 ng/mL (Normal) Range: 32.0-100.0 Comments: Recent studies consider the lower limit of 32.0 ng/mL to zoraida threshold for optimal health.Everardo HEREDIA. J Nutr. 2004;135(2):317-22.Performed at: - [facility] [address]Lab Director: Patito Segovia MD, Phone: [phone] 54-Noi-005160:16 VITAMIN B12 582 pg/mL (Normal) Range: 254-1320 [...] {uIU/mL} (Normal) Range: 0.358-3.74 :20 VIT D,25 63629 43.2 ng/mL (Normal) Range: 32.0-100.0 Comments: Recent studies consider the lower limit of 32.0 ng/mL to zoraida threshold for optimal health.Mcgee BW. J Nutr. 2004;135(2):317-22.Performed at: [facility] [id number]Lab Director: Patito Segovia MD, Phone: [phone] 69-Wvy-126891:20 VITAMIN B12 516 pg/mL (Normal) Range: 254-1320 Comments: There is a low frequency possibility that high titers ofintrinsic blocking antibodies may not be completely inactivated during the reaction pretreatment stepof this testing method. If test results are i n conflictwith the clinical diagnosis, patient should be testedfor the presence of intrinsic factor blocking antibodies. :44 VIT D,25 33589 38.6 ng/mL (Normal) Range: 32.0-100.0 Comments: Recent studies consider the lower limit of 32.0 ng/mL to zoraida threshold for optimal health.Mcgee BW. J Nutr. 2004;135(2):317-22.Performed at: [facility] [address] 296Lab Director: Patito Segovia MD, Phone: [phone] :[phone] VITAMIN B12 398 pg/mL (Normal) Range: [...] intrinsic factor blocking antibodies. :24 VITD 1,25 69782 57.3 pg/mL (Normal) Range: 10.0-75.0 Comments: Performed at: [address] [id number] Director: Roderick Ramirez MD, Phone: [phone] 69-Qqn-034759:26 CBCD,SMEAR DIFF RED CELL MORPH SeeNote {NORMAL} [...] the presence of intrinsic factor blocking antibodies. 9-Yhf-224851:16 MRA HEAD WITHOUT CONTRAST Radiology Report See Note (Normal) Comments: Exam Number: [id number] CLINICAL:69 year old female with numbness in [...] There is a fetalconfiguration of the right BOOK SORTER. No definite P1 segment connectingthe artery to the basilar artery is identified. IMPRESSION:No demonstrated aneurysm. Anatomic variations of the [place]. 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 The rightinternal carotid arteries supplies the left [place] territory, and islarger than the left internal carotid. 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 Reported By: DOMENICA MCGARRY M.D. 31-Xxi-697343:41 BRAIN W/WO CONTRAST Radiology See Note Comments: Exam Number: [id number] CLINICAL: MRI BRAIN WITHOUT AND WITH CONTRAST [...] mild degenerative remodeling of the mandibular condyles.ADDENDUM: [id number] MRI/BRWW CLINICAL: MRI BRAIN WITHOUT AND WITH [...] significant interval change is identified. Reported By: BMA ORTIZ 2 BUN 17 mg/dL Range: 7-18 7 (Normal) - J u l - 2 0 1 0 1 3 : 3 3 :33 SERUM CRE & GFR CREAT,SERUM 1.2 mg/dL (Abnormal) Range: 0.6-1.0 EST GFR 48 mL/min (Abnormal) EST GFR - AA 58 mL/min (Abnormal) :35 LIPID CHOL 188 mg/dL (Normal) Comments: <200 mg/dL Itfowqnaf115-515 mg/dL Borderline>240 mg/dL High Risk HDL 54 [...] Range: 0.358-3.74 5 (Normal) :3 VIT D,25 07780 29.3 ng/mL (Abnormal) Range: 32.0-100.0 5 Comments: Recent studies consider the lower limit of 32.0 ng/mL to zoraida threshold for optimal health.Everardo HEREDIA. J Nutr. 2004;135(2):317-22.Performed at: [facility] [id number] [place], [place] [address] 296Lab Director: Patito Segovia MD, Phone: [phone] :[phone] VITAMIN B12 158 pg/mL (Abnormal) Range: 254-1320 5 Comments: There is a low frequency possibility that high titers ofintrinsic blocking antibodies may not be completelyinactivated during the reaction pretreatment stepof this testing method. If test results are in conflictwith the clinical diagnosis, patient should be testedfor the presence of intrinsic factor blocking antibodies. 68-Cth-312259:17 ABDOMEN W/WO IV CONTRAST Radiology Report See Note (Normal) Comments: Exam Number: [id number] CLINICAL:Right upper quadrant pain CT ABDOMEN WITH [...] parapelvic renal cysts. Reported By: PRADIP FRANCO 79-Svg-062999:29 BMP BUN 16 mg/dL (Normal) Range: 7-18 [...] mg/dL (Normal) Range: 70-110 :37 VIT D,25 50551 26.3 ng/mL (Abnormal) Range: 32.0-100.0 Comments: Recent studies consider the lower limit of 32.0 ng/mL to zoraida threshold for optimal health.Everardo HEREDIA. J Nutr. 2004;135(2):317-22.Performed at: [address] [id number] Director: Ade Rubio MD 71-Sga-998534:36 GALLBLADDER (HP) Radiology Report See Note (Normal) Comments: Exam Number: [id number] LIMITED ABDOMINAL ULTRASOUND FOR GALLBLADDER HISTORYChest pain. [...] kidneyis suggested. Reported By: DOMENICA GATES M.D. 9-Gmk-733395:21 Lipase (36024) Comments: PATIENT NOT FASTINGPERFORMED BY: [address] [id number] Lipase, Serum 42 U/L (Normal) Range: 0-59 0-Skf-096665:21 Amylase (91324) Comments: PATIENT NOT FASTINGPERFORMED BY: [address] [id number] Amylase, Serum 54 U/L (Normal) Range: 31-124 0-Zes-615775:21 CBC WITH MANUAL DIFF Comments: PATIENT NOT FASTINGPERFORMED BY: [address] [id number] Information: [id number] (87898) Baso (Absolute) 0.1 {x10E3/uL} (Normal) Range: 0.0-0.2 [...] 3.80-5.10 WBC 5.9 {x10E3/uL} (Normal) Range: 4.0-10.5 5-Hco-900887:21 METABOLIC PANEL, COMPREHENSIVE Comments: PATIENT NOT FASTINGPERFORMED BY: [facility]iel[facility] [facility] [id number] (95887) ALT (SGPT) 15 [iU]/L (Normal) Range: 0-40 [...] Comments: DR DAVIS ORDERED CMP,CBCMD,CAROL,RF,TSH,CRP,SED,CCP,LIPIDDR VELLANKIORDEREDCMP,CBCD,CRP,SED,VITD,CCP,HEPBSAB,HEPBSAG,HEPC,CAROL,RF,HEPBCORE IGM,UA [id number] CAROL-DIRECT SeeNote (Normal) Comments: Result: Negative :48 ANTI-CCP 610035 4 {units} (Normal) Comments: DR DAVIS ORDERED [...] mm/h (Normal) Range: 0-30 :48 HB CORE [id number] SeeNote (Normal) Comments: DR DAVSI ORDERED CMP,CBCMD,CAROL,RF,TSH,CRP,SED,CCP,LIPIDDR VELLANKIORDEREDCMP,CBCD,CRP,SED,VITD,CCP,HEPBSAB,HEPBSAG,HEPC,CAROL,RF,HEPBCORE IGM,UA Comments: Result: Negative Performed At: [facility] [address] [place], [place] [id number] At: [facility] [address] [phone] :48 HBsAg Comments: DR DAVIS ORDERED CMP,CBCMD,CAROL,RF,TSH,CRP,SED,CCP,LIPIDDR [...] of antibody present. :48 HEP C AB 317244 0.1 (Normal) Comments: DR DAVIS ORDERED CMP,CBCMD,CAROL,RF,TSH,CRP,SED,CCP,LIPIDDR [...] VELLANKIORDEREDCMP,CBCD,CRP,SED,VITD,CCP,HEPBSAB,HEPBSAG,HEPC,CAROL,RF,HEPBCORE IGM,UA Range: 0.358-3.74 :48 VIT D,25 31606 18.0 ng/mL (Abnormal) Comments: DR DAVIS ORDERED CMP,CBCMD,CAROL,RF,TSH,CRP,SED,CCP,LIPIDDR VELLANKIORDEREDCMP,CBCD,CRP,SED,VITD,CCP,HEPBSAB,HEPBSAG,HEPC,CAROL,RF,HEPBCORE IGM,UA Range: 32.0-100.0 Comments: Recent studies consider the lower limit of 32.0 ng/mL to zoraida threshold for optimal health.Everardo HEREDIA. J Nutr. 2004;135(2):317-22. 4-Rdp-060264:10 [facility] Rad[facility] Report See Note (Normal) Comments: Exam Number: [id number] MAMMOGRAM, BILATERAL SCREENING DIGITAL AND CAD HISTORYRoutine [...] (MQSA). The mammograms werealso examined with c Shenz[employer] Winhap Communicationsuter-aided detection software (BarEye.). Reported By: DOMENICA GATES M.D. 3-Scw-633422:09 SPINE,LUMBAR (ROUTINE) Radiology Report See Note (Normal) Comments: Exam Number: [id number] CLINICAL:68-year-old female with low back pain for [...] Report See Note (Normal) Comments: Exam Number: [id number] CLINICAL DATALow back pain, flank pain, right [...] disc disea se involving multiple levels from Z2gsgowbt S1. There is degenerative hypertrophic change of [...] Report See Note (Normal) Comments: Exam Number: [id number] DORSAL SPINE Three images of the dorsal [...] Culture,Comprehensive Comments: Clinical Information: SRC:UR PERFORMED BY: [facility] [id number] Result 1 NG36 (Normal) Comments: No growth in 36 - 48 hours. Urine Culture,Comprehensive Final report (Normal) :18 PELVIS WITHOUT IV CONTRAST Radiology Report See Note (Normal) Comments: Exam Number: [id number] CT SCANS OF ABDOMEN AND PELVIS HISTORYThe [...] Report See Note (Normal) Comments: Exam Number: [id number] CT SCANS OF ABDOMEN AND PELVIS HISTORYThe [...] the spine. Reported By: DOMENICA GATES M.D. 8-Tek-101793:1 C-REACTIVE PROT 4.05 mg/L (Abnormal) Range: 0.0-3.0 0 Comments: C-Reactive Protein (CRP) provides useful information for thediagnosis, therapy and monitoring of inflammatory processesand associated diseases. For the evaluation of Relative Riskfor Cardiovascular Dise ase, a High Sensitivity CRP (HSCRP)should be ordered. 9-Faj-411755:10 CBCD,SMEAR DIFF ATYPICAL LYMPH 1+ % (Normal) [...] 47-70 WBC 8.2 K/mm3 (Normal) Range: 4.4-11.0 3-Wpo-094729:10 COMP METABOLIC A/G 1.4 {RATIO} (Normal) Range: [...] 6.4-8.2 GLU 84 mg/dL (Normal) Range: 70-110 5-Fyc-044355:10 ESR SED RATE 14 mm/h (Normal) Range: 0-30 9-Vun-038928:40 Urinalysis, Office (44623) UA - BILIRUBIN Negative (Normal) UA - BLOOD Non Hemolyzed Trace (Normal) UA - GLUCOSE Negative (Normal) UA - KETONES Negative mg/dL (Normal) UA - LEUKOCYTE ESTERASE Negative (Normal) Comments: aw UA - NITRITE Negative (Normal) UA - PH 6.0 (Normal) UA - PROTEIN Negative mg/dL (Normal) UA - SPECIFIC GRAVITY 1.010 (Normal) URINE UROBILINGN TUNDE TIMED Normal mg/dL (Normal) 4-Kki-305073:28 URINE CESAR CULTURE-TUNDE COL Comments: PATIENT NOT FASTINGClinical Information: SRC:UR ADD [id number] PERFORMED BY: [place] [id number] [facility] [id number] COUNT (46981) Result 1 MUG (Normal) Comments: Mixed urogenital flora10,000-25,000 colony forming units per mL Urine Final report (Normal) Culture,Comprehensive 6-Mut-015236:09 Urinalysis, Office (56297) UA - BILIRUBIN Negative (Normal) UA - [...] mg/dL VLDL 16 mg/dL (Normal) Range: 5-40 0-Ang-569031:59 LQD PAP [id number] Comments: CYTOLOGY INFORMATION:- CLINICAL INFORMATION: POSTMENOPAUSAL- DATE LMP/MENOPAUSE: MENOPAUSE- COLLECTION VIAL: Thin Prep Vial- AVIATION CONSULTANT SOURCE: CERVICAL/ENDOCERVICAL- COLLECTION TECHNIQUE: BRUSH/SPATULA ADEQ Comment (Normal) Comments: Satisfactory for evaluation. Endocervical and/or squamous metaplasticcells (endocervical component) are present. COMM . (Normal) DIAGN Comment (Normal) Comments: NEGATIVE FOR INTRAEPITHELIAL LESION AND MALIGNANCY. HPV RFLX Comment (Normal) Comments: The HPV DNA reflex criteria were not met with this specimenresult therefore, no HPV testing was performed. .Performed At: [address] [id number] PAPSMR Comment (Normal) Comments: The Pap smear is a screening test designed to aid in thedetection of premalignant and malignant conditions of theuterine cervix. It is not a diagnostic procedure andshould not be used as the sole means of detecting cervicalcancer. Both false-positive and false-negative reports dooccur. . PERFORM Comment (Normal) Comments: Diandra Bee, Data Operations Director (ASCP) 49-Ufk-416685:36 DEXA BONE DENSITY STUDY (HP) Radiology Report See Note (Normal) Comments: Exam Number: [id number] BONE DENSITOMETRY TECHNIQUE Bone densitometry of the [...] cardiovasculardisease. Reference: High risk CRP >3.0 mg/L 04-Bqz-615216:12 CBCD,SMEAR DIFF BAND 1 % (Normal) Range: [...] 47-70 WBC 6.2 K/mm3 (Normal) Range: 4.4-11.0 57-Uwf-631541:12 COMP METABOLIC A/G 1.5 {RATIO} (Normal) Range: [...] T PROT 6.1 g/dL (Abnormal) Range: 6.4-8.2 87-Xzw-874956:12 FUNEZ A AB [id number] FUNEZ A TYPE 10 <1:8 (Normal) FUNEZ [...] and its performancecharacteristics have been determined by [employer]. Performance characteristics refer tothe analytical performance of the test. FUNEZ A TYPE 2 <1:8 (Normal) FUNEZ A TYPE 4 <1:8 (Normal) FUNEZ A TYPE 7 <1:8 (Normal) FUNEZ A TYPE 9 <1:8 (Normal) 03-Tuz-359926:12 ESR SED RATE 14 mm/h (Normal) Range: 0-30 03-Ucl-827192:12 RA LATEX 6502 7.1 {IU/mL} (Normal) Range: 0.0-13.9 Comments: Performed At: [address] [place], [place] [id number] At: [facility] [address] [place], [place] [address] 35-Kek-799685:12 TSH 0.16 {uIU/mL} (Abnormal) Range: 0.34-4.82 89-Fqx-947683:21 PELVIS WITH CONTRAST Radiology Report See Note (Normal) Comments: Exam Number: [id number] CT ABDOMEN AND PELVIS WITH CONTRAST. CLINICAL [...] pericardial effusion. Reported By: TODD KENNEDY M.D. 74-Pdn-099234:11 ABDOMEN WITH CONTRAST Radiology Report See Note (Normal) Comments: Exam Number: [id number] CT ABDOMEN AND PELVIS WITH CONTRAST. CLINICAL [...] pericardial effusion. Reported By: TODD KENNEDY M.D. 69-Nxp-573587:38 MARCUS 45 U/L (Normal) Range: 25-115 09-Ffr-577716:38 CBCD,SMEAR DIFF BAND 1 % (Normal) Range: [...] 47-70 WBC 5.9 K/mm3 (Normal) Range: 4.4-11.0 96-Doc-080968:38 LIPASE 190 U/L (Normal) Range: 114-286 29-Voi-301092:45 BILAT SCRN DIGITAL & CAD Radiology Report See Note (Normal) Comments: Exam Number: [id number] MAMMOGRAM, BILATERAL SCREENING DIGITAL AND CAD HISTORYRoutine [...] werealso exam ined with computer-aided detection software ([employer], [employer].). Reported By: DOMENICA GATES M.D. :33 CHEST W/WO CONTRAST Radiology Report See Note (Normal) Comments: Exam Number: [id number] CT SCAN OF CHEST HISTORYLung nodule. Consecutive [...] 47-70 WBC 4.2 K/mm3 (Abnormal) Range: 4.4-11.0 59-Wmp-90812:07 COMP METABOLIC A/G 1.5 {RATIO} (Normal) Range: [...] itching : [facility] Indication: Vaginal itching Low Back Pain (Renamed [...] Indication: Chest pain Chest pain : Reviewed Medical Records Coder Letter Indication: Chest pain Osteoarthritis, unspecified osteoarthritis [...] Hypercholesterolemia Planned Observations CBC W/AUTO DIFF WBC (17840)Indication: Prolonged QT interval On: 7-Imz-260377:18 Request METABOLIC PANEL, COMPREHENSIVE (76770)Indication: Prolonged QT interval On: 3-Ypd-175583:18 Request VITAMIN B-12 (CYANOCOBALAMIN) (96932)Indication: DEFICIENCY, B-COMPLEX NEC On: :18 Request TSH (45409)Indication: Acquired hypothyroidism On: :17 Request LIPOPROTEIN, BLD, BY NMR (74282)Indication: Hypercholesterolemia On: :17 Request VITAMIN B-12 (CYANOCOBALAMIN) (06747)Indication: DEFICIENCY, B-COMPLEX NEC On: :18 Request LIPID PANEL (36938)Indication: Hypercholesterolemia On: :18 Request CBC W/AUTO DIFF WBC (45147)Indication: Right flank pain On: :17 Request METABOLIC PANEL, COMPREHENSIVE (18704)Indication: Right flank pain On: :17 Request Vitamin D Hydroxy (09144)Indication: Vitamin D deficiency, unspecified On: :17 Request Urinalysis, Office (83138)Indication: Urinary frequency On: 94-Jbl-503920:22 Request VITAMIN B-12 (CYANOCOBALAMIN) (02062)Indication: Other vitamin B12 deficiency anemia On: 5-Hki-940873:28 Request Comments: Lot:[id number]:04/29Dose:1mlRoute:IMSite:r arm Given By:TAVON signed Vitamin D Hydroxy (85366)Indication: Vitamin D deficiency, unspecified On: :42 Request LIPID PANEL (22458)Indication: Hypercholesterolemia On: :42 Request METABOLIC PANEL, COMPREHENSIVE (92260)Indication: Essential hypertension On: :36 Request TSH (15205)Indication: Acquired hypothyroidism On: :36 Request CBC with auto diff (04622)Indication: Abdominal pain, acute, right lower quadrant On: :06 Request METABOLIC PANEL, COMPREHENSIVE (00642)Indication: Abdominal pain, acute, right lower quadrant On: :06 Request Urinalysis, Office (60567)Indication: Low Back Pain (Renamed from LBP (low back pain)) On: 82-Qea-137785:09 Request Vitamin D Hydroxy (36272)Indication: Vitamin D deficiency, unspecified On: 94-Inj-596949:32 Request METABOLIC PANEL, COMPREHENSIVE (65214)Indication: Essential hypertension On: :31 Request LIPID PANEL (01090)Indication: Hypercholesterolemia On: :31 Request TSH (21202)Indication: Acquired hypothyroidism On: :31 Request LIPID PANEL (78246)Indication: Hypercholesterolemia On: :45 Request TSH (47479)Indication: Acquired hypothyroidism On: :44 Request METABOLIC PANEL, COMPREHENSIVE (31993)Indication: Essential hypertension On: :44 Request CBC, PLATELETS & AUT DIFF (32564)Indication: DEFICIENCY, B-COMPLEX NEC On: :43 Request VITAMIN B-12 (CYANOCOBALAMIN) (50159)Indication: DEFICIENCY, B-COMPLEX NEC On: :43 Request Vitamin D Hydroxy (68858)Indication: Vitamin D deficiency, unspecified On: :43 Request IRON (09156)Indication: Anemia On: 6-Aut-141713:42 Request Vitamin D Hydroxy (20735)Indication: Vitamin D deficiency, unspecified On: 2-Pzf-790324:36 Request VITAMIN B-12 (CYANOCOBALAMIN) (16111)Indication: DEFICIENCY, B-COMPLEX NEC On: 5-Lmf-093490:35 Request CBC WITH MANUAL DIFF (65784)Indication: DEFICIENCY, B-COMPLEX NEC On: 5-Bas-729578:35 Request METABOLIC PANEL, COMPREHENSIVE (36181)Indication: Essential hypertension On: 7-Ovu-595537:35 Request T3, FREE (TRIDOTHYRONINE) (86460)Indication: Acquired hypothyroidism On: 7-Jpv-307588:35 Request T4, FREE (49410)Indication: Acquired hypothyroidism On: 3-Kjw-472677:35 Request TSH (56834)Indication: Acquired hypothyroidism On: 8-Oei-004155:34 Request TSH (96843)Indication: Acquired hypothyroidism On: 54-Ief-306510:23 Request Comments: recheck in 6 weeks Metabolic Panel, Basic (41089)Indication: Essential hypertension On: 71-Jut-741053:16 Request TSH (06585)Indication: Acquired hypothyroidism On: 65-Cfo-725272:22 Request C-REACTIVE PROTEIN (07326)Indication: right lower quadrant pain On: 86-Exm-031079:51 Request SED RATE ERYTHROCYTE (20235)Indication: right lower quadrant pain On: :51 Request Magnesium (27466)Indication: Leg cramps On: 57-Eli-193460:43 Request CBC WITH MANUAL DIFF (71515)Indication: Edema leg On: :42 Request LIPID PANEL (32199)Indication: Hypercholesterolemia On: :41 Request METABOLIC PANEL, COMPREHENSIVE (17663)Indication: Essential hypertension On: :41 Request VITAMIN B-12 (CYANOCOBALAMIN) (45076)Indication: Other vitamin B12 deficiency anemia On: :41 Request Vitamin D Hydroxy (11134)Indication: Vitamin D deficiency, unspecified On: :41 Request Metabolic Panel, Basic (72306)Indication: Acute renal failure, unspecified acute renal failure type On: :31 Request TSH (19818)Indication: Acquired hypothyroidism On: :30 Request LIPID PANEL (74335)Indication: Hypercholesterolemia On: :39 Request Vitamin D Hydroxy (77378)Indication: Vitamin D deficiency, unspecified On: :39 Request VITAMIN B-12 (CYANOCOBALAMIN) (15435)Indication: Other vitamin B12 deficiency anemia On: :39 Request CBC WITH MANUAL DIFF (18443)Indication: Other vitamin B12 deficiency anemia On: :39 Request METABOLIC PANEL, COMPREHENSIVE (77286)Indication: Essential hypertension On: :39 Request Vitamin D Hydroxy (54190)Indication: Vitamin D deficiency, unspecified On: :37 Request LIPID PANEL (75465)Indication: Hypercholesterolemia On: :37 Request TSH (13706)Indication: Acquired hypothyroidism On: :37 Request CBC WITH MANUAL DIFF (66233)Indication: Essential hypertension On: :39 Request METABOLIC PANEL, COMPREHENSIVE (34784)Indication: Essential hypertension On: :39 Request VITAMIN B-12 (CYANOCOBALAMIN) (18299)Indication: b12 deficiency On: :39 Request LIPID PANEL (19788)Indication: Hypercholesterolemia On: :39 Request Vitamin D Hydroxy (25101)Indication: Vitamin D deficiency, unspecified On: :32 Request VITAMIN B-12 (CYANOCOBALAMIN) (19692)Indication: b12 deficiency On: :32 Request Vitamin D Hydroxy (32633)Indication: Vitamin D deficiency, unspecified On: :32 Request METABOLIC PANEL, COMPREHENSIVE (57659)Indication: Essential hypertension On: :32 Request LIPID PANEL (89011)Indication: Hypercholesterolemia On: :32 Request TSH (84667)Indication: Acquired hypothyroidism On: :32 Request CBC WITH MANUAL DIFF (10401)Indication: Essential hypertension On: :30 Request METABOLIC PANEL, COMPREHENSIVE (13137)Indication: Essential hypertension On: :29 Request VITAMIN B-12 (CYANOCOBALAMIN) (55054)Indication: DEFICIENCY, B-COMPLEX NEC On: :29 Request Vitamin D Hydroxy (09391)Indication: Vitamin D deficiency, unspecified On: :29 Request TSH (66976)Indication: Acquired hypothyroidism On: :29 Request LIPID PANEL (90558)Indication: Hypercholesterolemia On: :29 Request Vitamin B-12 (cyanocobalamin) (17091)Indication: b12 deficiency On: 41-Dxq-907506:01 Request CALCIFIDIOL (45577) VIT D 25Indication: Vitamin D deficiency, unspecified On: 12-Cyg-896271:00 Request TSH (53305)Indication: Acquired hypothyroidism On: :34 Request LIPID PANEL (41885)Indication: Hypercholesterolemia On: :34 Request Metabolic Panel, Basic (39792)Indication: Essential hypertension On: 48-Bor-774310:26 Request VITAMIN B-12 (CYANOCOBALAMIN) (95407)Indication: DEFICIENCY, B-COMPLEX NEC On: 14-Yqu-916598:19 Request Vitamin D Hydroxy (00290)Indication: Vitamin D deficiency, unspecified On: 15-Aco-896639:19 Request VITAMIN D, 1, 25-DIHYDROXY ([id number])Indication: Vitamin D deficiency, unspecified On: 8-Isv-333739:19 Request Comments: Vit D [place] Vitamin B-12 (cyanocobalamin) (08057)Indication: b12 deficiency On: 2-Eoj-275648:17 Request CBC WITH MANUAL DIFF ([id number])Indication: b12 deficiency On: 37-Exa-928259:17 Request VITAMIN B-12 (CYANOCOBALAMIN) (59800)Indication: b12 deficiency On: 37-Ypx-326123:14 Request VITAMIN B-12 (CYANOCOBALAMIN) ([id number])Indication: Vitiligo On: 52-Xgi-764851:37 Request LIPID PANEL ([id number])Indication: Hypercholesterolemia On: 02-Nxq-070055:33 Request TSH ([id number])Indication: Acquired hypothyroidism On: 86-Ntc-891898:32 Request Vitamin D Hydroxy (94477)Indication: Vitamin D deficiency, unspecified On: 86-Bth-795956:31 Request METABOLIC PANEL, COMPREHENSIVE ([id number])Indication: Essential hypertension On: 05-Nll-979588:42 Request Vitamin D Hydroxy (02777)Indication: Vitamin D deficiency, unspecified On: 13-Eev-442243:42 Request CAROL (ANTINUCLEAR ANTIBODY) ([id number])Indication: Pain in unspecified joint On: :27 Request C-REACTIVE PROTEIN ([id number])Indication: Pain in unspecified joint On: :27 Request CBC WITH MANUAL DIFF ([id number])Indication: Pain in unspecified joint On: :27 Request CCP ANTIBODY ([id number])Indication: Pain in unspecified joint On: :27 Request METABOLIC PANEL, COMPREHENSIVE (07128)Indication: Pain in unspecified joint On: : Request RHEUMATOID FACTOR-QUANT ([id number])Indication: Pain in unspecified joint On: : Request SED RATE ERYTHROCYTE ([id number])Indication: Pain in unspecified joint On: :27 Request TSH ([id number])Indication: Pain in unspecified joint On: : Request SED RATE ERYTHROCYTE ([id number])Indication: flank pain On: :35 Request C-REACTIVE PROTEIN ([id number])Indication: flank pain On: :35 Request METABOLIC PANEL, COMPREHENSIVE ([id number])Indication: flank pain On: :35 Request CBC WITH MANUAL DIFF ([id number])Indication: flank pain On: :35 Request URINE CESAR CULTURE (TUNDE COL COUNT) ([id number])Indication: flank pain On: :35 Request Thin prep Pap ([id number])Indication: Well woman exam with routine gynecological exam On: 4-Tpw-885923:09 Request CBC WITH MANUAL DIFF ([id number])Indication: Essential hypertension On: 90-Otm-002058:02 Request METABOLIC PANEL, COMPREHENSIVE (96825)Indication: Essential hypertension On: 34-Ozs-102673:02 Request LIPID PANEL ([id number])Indication: Hypercholesterolemia On: :02 Request METABOLIC PANEL, COMPREHENSIVE (85761)Indication: Essential hypertension On: 33-Avo-432787:18 Request TSH ([id number])Indication: Acquired hypothyroidism On: 03-Ogi-914350:18 Request SED RATE ERYTHROCYTE ([id number])Indication: Abdominal pain, acute, left upper quadrant On: 33-Uob-337242:09 Request C-REACTIVE PROTEIN ([id number])Indication: Abdominal pain, acute, left upper quadrant On: 52-Krd-154923:09 Request CBC WITH MANUAL DIFF ([id number])Indication: edema On: 74-Bym-467137:09 Request METABOLIC PANEL, COMPREHENSIVE ([id number])Indication: edema On: 07-Xal-579825:09 Request TSH ([id number])Indication: Acquired hypothyroidism On: 83-Ino-891783:03 Request CBC WITH MANUAL DIFF ([id number])Indication: Abdominal pain, acute, left upper quadrant On: 77-Acu-548361:22 Request Lipase ([id number])Indication: Abdominal pain, acute, left upper quadrant On: 31-Vlr-992151:22 Request Amylase ([id number])Indication: Abdominal pain, acute, left upper quadrant On: 71-Aez-320877:21 Request Thin prep Pap ([id number])Indication: Well woman exam with routine gynecological exam On: 24-Pgk-636066:43 Request HEPATIC FUNCTION PANEL ([id number])Indication: Hypercholesterolemia On: 84-Afq-645747:52 Request LIPID PANEL ([id number])Indication: Hypercholesterolemia On: 46-Cbt-709215:52 Request CBC, PLATELETS & AUTO DIFF ([id number])Indication: Leukopenia On: 46-Hoz-613369:34 Request Planned Encounters Medical; DARRIAN 6 Month Fu - On: 03-Jul-2018 13:00 [facility] Fast DO, Kristine A Fast DO, Kristine A Planned Procedures DEXA SCAN AXIAL SKELETON ([id number])By: On: 02-Jan-2018 Intent Fast DO, Kristine A Fast DO, Kristine A Comments: mar - RenalBy: Fast DO, On: 02-Jan-2018 Intent Kristine A Fast DO, Kristine A Flu Vaccine (Quadrivalent) 39596Vg: On: 02-Jan-2018 Intent Fast DO, Kristine A Fast DO, Kristine A Comments: Lot #[id number]-8/30/2019Site-L dltd, IMDose prefilled syringegiven by: Melly reviewed and ABN signed ELECTROCARDIOGRAM, COMPLETE (ECG) On: 28-Aug-2017 Intent (61028)By: Fast DO, Kristine A Fast Comments: ekg showed normal sinus rhythym, normal axis, no acute st/t wave changes DO, Kristine A SCREENING DIGITAL TOMOSYNTHESIS OF On: 28-Aug-2017 Intent BREAST ([id number])By: Fast DO, Kristine A Fast DO, Kristine A B 12 Injection, 1000 mcg (J3420)By: On: 15-Mar-2017 Intent Visit, Nurse Comments: [id number]/ANOOP Almodovar B 12 Injection, 1000 mcg (J3420)By: On: 22-Feb-2017 Intent Fast DO, Kristine A Fast DO, Kristine A Comments: lot: [id number]: 05/01site/route: L del/IMamt: 1mLVIS signed when applicableRAYMUNDO Huerta Flu Vaccine (Quadrivalent) 51211Vj: On: 17-Jan-2017 Intent Fast DO, Kristine A [...] (J3420)By: On: 12-Dec-2016 Intent Visit, Nurse Comments: 54424/2018R arm, IM1ml, 1000mcgML, INDUSTRIAL TRAINER B 12 Injection, 1000 mcg (J3420)By: On: [...] Kristine A Fast DO, Kristine A Comments: B12lot:[id number]:ite:lt deltroute:Imdose:1mlD.Zahracastro AYAD B 12 Injection, 1000 mcg [...] armGiven By:TAVON signed DEXA SCAN AXIAL SKELETON ([id number])By: On: 04-Apr-2016 Intent Fast DO, Kristine A Fast DO, Kristine A MRI LUMBAR SPINE W/O CONTRAST On: 04-Apr-2016 Intent ([id number])By: Fast DO, Kristine A Fast DO, Kristine [...] A ELECTROCARDIOGRAM, COMPLETE (ECG) On: 11-Dec-2015 Intent ([id number])By: Fast DO, Kristine A Fast Comments: ekg [...] MAMMOGRAM, SCREENING, BOTH BREAST On: 21-Apr-2015 Intent ([id number])By: Fast DO, Kristine A Fast DO, Kristine A B 12 Injection, 1000 mcg (J3420)By: On: 21-Apr-2015 Intent Fast DO, Kristine A Fast DO, Kristine A Comments: Lot:[id number]:11/27Dose:1mlRoute:IMSite:r arm Given By:TAVON signed B 12 Injection, 1000 mcg (J3420)By: On: 16-Mar-2015 Intent Fast DO, Kristine A Fast DO, Kristine A Comments: lot: [id number]: 06/27site/route: L del/IMamt: 1mLVIS signed when applicableKylee, APPLICATION INTEGRATION ARCHITECT B 12 Injection, 1000 mcg (J3420)By: On: 09-Feb-2015 Intent Fast DO, Kristine A Fast DO, Kristine A Comments: B12lot:[id number]:06/27site:lt deltoidroute:IMdose:1mlDEMICK, SMA B 12 Injection, 1000 mcg (J3420)By: On: 15-Jan-2015 Intent Hunter Jerez Comments: B 12Lot:[id number]:317site:lt deltoidroute:IMdose:.5mlDEMICK, SMA B 12 Injection, 1000 mcg (J3420)By: On: 10-Dec-2014 Intent Fast DO, Kristine A Fast DO, Kristine A Comments: lot [id number] - see ANOOP Mcallister CT - Abdomen & Pelvis (IV Contrast On: 16-Sep-2014 Intent Needed)By: Fast DO, Kristine A Fast DO, Kristine A B 12 Injection, 1000 mcg (J3420)By: On: 16-Sep-2014 Intent Fast DO, Kristine A Fast DO, Kristine A Comments: Lot:[id number]:11.16Route:IMSite:R deltoidDose: 1 mLgiven by: Carlita Ariza CMA [...] 1,000 mcgSite: l dltdLocation; IMby: Prevnar 13 (11258)By: Fast DO, On: 24-Mar-2014 Intent Kristine A Fast DO, Kristine A Comments: lot: [id number]: 3/16site/route: L del/IMamt: 0.5mLVIS signed when applicableRAYMUNDO Huerta Ultrasound - PelvisBy: Fast DO, On: 24-Mar-2014 Intent Kristine A Fast DO, Kristine A B 12 Injection, 1000 mcg (J3420)By: On: 24-Mar-2014 Intent Fast DO, Kristine A Fast DO, Kristine A Comments: lot: [id number]: 416site/route: R del/IMamt:1mlVIS signed when applicableChelsarianne, APPLICATION INTEGRATION ARCHITECT B 12 Injection, 1000 mcg (J3420)By: On: 24-Feb-2014 Intent Silvia Burton LPN Comments: lot: [id number]: 4.16Dose: 1,000 mcgSite: l dltdLocation; IMby: B 12 Injection, 1000 mcg (J3420)By: On: 22-Jan-2014 Intent Fast DO, Kristine A Fast DO, Kristine A Comments: lot [id number] 08/2015location L armroute imgiven by - msmith VIS and/or ABN signed B 12 Injection, 1000 mcg (J3420)By: On: 30-Dec-2013 Intent Fast DO, Kristine A Fast DO, Kristine A Comments: lot [id number] 05/2015location L armroute imgiven by - msmithVIS [...] Fast Comments: today DO, Kristine A EKG (15030)By: Fast DO, Kristine A On: 05-Nov-2013 Intent Fast DO, Kristine A Comments: ekg showed normal sinus rhythym, normal axis, no acute st/t wave changes B 12 Injection, 1000 mcg (J3420)By: On: 05-Nov-2013 Intent Fast DO, Kristine A Fast DO, Kristine A Comments: Lot:[id number]:11/24Dose:1mlRoute:IMSite:l armGiven By:TAVON signed PHYSICAL THERAPY EVALUATION On: 18-Oct-2013 Intent ([id number])By: Aquiles Potts CNP SPECIMEN HANDLING/TRANSPORT On: 18-Oct-2013 Intent ([id number])By: Aquiles Potts CNP B 12 Injection, 1000 mcg (J3420)By: On: 11-Oct-2013 Intent Aquiles Potts CNP Comments: Lot:[id number]:11/2013Dose:1mlRoute:IMSite:[place] By:TAVON signed B 12 Injection, 1000 mcg (J3420)By: On: 18-Sep-2013 Intent Fast DO, Kristine A Fast DO, Kristine A B 12 Injection, 1000 mcg (J3420)By: On: 07-Aug-2013 Intent Fast DO, Kristine A Fast DO, Kristine A Comments: lot: [id number]: ite/route: L del/IMamt: 1mLVIS signed when applicableChelsea, APPLICATION INTEGRATION ARCHITECT MAMMOGRAM, SCREENING, BOTH BREASTS On: 24-Jun-2013 Intent ([id number])By: Fast DO, Kristine A Fast DO, Kristine A B 12 Injection, 1000 mcg (J3420)By: On: 24-Jun-2013 Intent Fast DO, Kristine A Fast DO, Kristine A Comments: Lot:[id number]:04/28Dose:1mlRoute:IMSite:[place] By:TAVON signed B 12 Injection, 1000 mcg (J3420)By: On: 15-May-2013 Intent Visit, Nurse Comments: Lot:[id number]:01/25Dose:1mlRoute:IMSite:[place] By:TAVON signed B 12 Injection, 1000 mcg (J3420)By: On: 22-Apr-2013 Intent Fast DO, Kristine A Fast DO, Kristine A Comments: lot: [id number]: 01/25site/route: L deltoid/IMamt: 1mLVIS signed when applicableChelsea, APPLICATION INTEGRATION ARCHITECT B 12 Injection, 1000 mcg (J3420)By: On: 21-Mar-2013 Intent Fast DO, Kristine A Fast DO, Kristine A Comments: see flowsheetMegan PNEUM VAC ADLT/IMUMNOSPR, SBC/INTRM On: 18-Feb-2013 Intent ([id number])By: Fast DO, Kristine A Fast Comments: Lot: [id number]: 88Fnf32Qoj: 0.5mlRoute: IMSite: L deltoidGiven by: ANOOP Moralez DO, Kristine A ADMINISTRATION OF PNEUMOCOCCAL On: 18-Feb-2013 Intent VACCINE (G0009)By: Fast DO, Kristine A Fast DO, Kristine A Eprescribed prescriptions On: 18-Feb-2013 Intent (G8553)By: Deanna Michelle B 12 Injection, 1000 mcg (J3420)By: On: 02-Jan-2013 Intent Deanna Michelle Comments: lot: [id number]: 10/25site/route: L deltoid/IMamt: 1mLVIS signed when applicableChelsea, APPLICATION INTEGRATION ARCHITECT B 12 Injection, 1000 mcg (J3420)By: On: [...] 08/24site/route: R deltoid/IMamt: 1mLVIS signed when applicableChelsea, APPLICATION INTEGRATION ARCHITECT B 12 Injection, 1000 mcg (J3420)By: On: 28-Aug-2012 Intent Fast DO, Kristine A Fast DO, Kristine A Comments: Lot #:[id number] date:mount given:1mlRoute: IMSite given: left deltoidGiven by: AYAD Dailey B 12 Injection, 1000 mcg (J3420)By: On: 23-Jul-2012 Intent Fast DO, Kristine A Fast DO, Kristine A Comments: Lot: [id number]: 02/23Amt: 1000mcg/1mlRoute: IMSite: L Deltoid per pt [...] A Fast DO, Kristine A Comments: lot: [id number]:02/23site/route: L deltoid/IMamt: 1ccVIS signed when applicableChelsea, APPLICATION INTEGRATION ARCHITECT B 12 Injection, 1000 mcg (J3420)By: On: 09-May-2012 Intent Kylee Castellon Comments: Lot:[id number]:02/2014Dose:1mlRoute:IMSite:L armGiven By:Jameson signed VENOUS DOPPLER LOWER EXTREMITY On: 18-Apr-2012 Intent ([id number])By: Fast DO, Kristine A Fast DO, Kristine A Radiology - Hip - RightBy: Fast DO, On: 06-Apr-2012 Intent Kristine A Fast DO, Kristine A Comments: call results B 12 Injection, 1000 mcg (J3420)By: On: 06-Apr-2012 Intent Lisandra Chilel Comments: Lot #[id number]-04/14Site-left deltoidDose-1 mlgiven by: Omkar Rivera LPN Eprescribed prescriptions On: 06-Apr-2012 Intent (G8553)By: Lisandra Chilel Inhaler Demo (14024)By: Fast DO, On: 06-Feb-2012 Intent Kristine A Fast DO, Kristine A B 12 Injection, 1000 mcg (J3420)By: On: 06-Feb-2012 Intent Kylee Castellon Comments: Lot:[id number]:Dose:1mlRoute:IMSite:L armGiven By:TAVON signed MAMMOGRAM, SCREENING, BOTH BREASTS On: 06-Feb-2012 Intent ([id number])By: Fast DO, Kristine A Fast DO, Kristine [...] mlRoute: IMSite given: left deltoidGiven by: AMI Alcarazhat steamer - Cervical SpineBy: Fast On: 13-Apr-2011 Intent DO, Kristine A Fast DO, Kristine A TD Injection , IM (25046)By: On: 13-Apr-2011 Intent Lisandra Chilel Comments: received in 2005 B 12 Injection, 1000 mcg (J3420)By: On: 29-Mar-2011 Intent Kateryna Lunsford MD Comments: Lot #[id number]-8.13Site-Left arm, IMDose 0.5mlgiven by:Татьяна B 12 Injection, 1000 mcg (J3420)By: On: 08-Feb-2011 Intent Татьяна Vera LPN Comments: Lot [id number]#Exp-7.13Site-R arm, IMDose 1mlgiven by:Татьяна DXA, BONE DENSITY, AXIAL SKELETON On: 24-Jan-2011 Intent (79736)By: Lisandra Chilel Comments: post menopausal wihtout estrogen FLU VAC, SPLIT, >3 YEARS, INTRAMUSC On: 24-Jan-2011 Intent (14518)By: Lisandra Chilel Comments: received at [facility] B 12 Injection, 1000 mcg (J3420)By: On: 21-Dec-2010 Intent Licha Almaguer LPN INJECTION, VITAMIN B-12 On: 19-Nov-2010 Intent CYANOCOBALAMIN, UP TO 1000 MCG Comments: Lot:[id number]:04/25Amt:1mlRoute:IMSite:left deltGiven By: ANOOP Sotelo (Special Coverage Instructions Apply. See CIM: 45-4 and MCM: 9) (J3420)By: Vi Ramirez EKG (80886)By: Lisandra Chilel On: 05-Nov-2010 Intent Comments: ekg showed normal sinus rhythym, normal axis, no acute st/t wave changes MAMMOGRAM, SCREENING, BOTH BREASTS On: 05-Nov-2010 Intent (07141)By: Fast DO, Kristine A Fast DO, Kristine [...] 03-Jun-2010 Intent Yasmeen Rivera LPN Comments: Lot #[id number]-left deltoidDose-1 mlgiven by:[facility] IMMUNIZ ADMNIN, 1 VAC, SNGL/COMBO On: 19-Apr-2010 Intent (09703)By: Yasmeen Rivera LPN Comments: Lot #[id number]-9/28/02Site-left deltoidDose- 0.85mlgiven by:[facility] ZOST[place] VACC, [place] ([id number])By: Miguel On: 19-Apr-2010 Intent Yasmeen DAVALOS B [...] Rivera LPN Comments: Lot #[id number]-5/12Site-left deltoidDose-1 mlgiven by:[facility] FLU VAC, SPLIT, >3 YEARS, INTRAMUSC On: 30-Dec-2009 Intent (48037)By: Lisandra Chilel Comments: Lot #[id number]-1/11Site-left deltoidgiven by:PRICE B 12 Injection, 1000 mcg (J3420)By: On: 30-Dec-2009 Intent Lisandra Chilel Comments: Lot #[id number]-5/12Site-right deltoidDose-1 mlgiven by:PRICE Renal Duplex ScanBy: Fast DO, Kristine On: 30-Dec-2009 Intent A Fast DO, Kristine A IMMUNIZ ADMNIN, 1 VAC, SNGL/COMBO On: 30-Dec-2009 Intent (19599)By: Lisandra Chilel B 12 Injection, 1000 mcg (J3420)By: On: 14-Dec-2009 Intent Shayna Harris Comments: Lot:[id number]:5/12Dose:1000mcg/1mlRoute:IMSite:right deltoid Given by: AYAD Gil B 12 Injection, 1000 mcg (J3420)By: On: 26-Nov-2009 Intent Mast Phyllis MUELLER Comments: documented in flowsheet B 12 Injection, 1000 mcg (J3420)By: On: 19-Oct-2009 Intent Yasmeen Rivera LPN Comments: Lot #[id number]-04/24Site-left deltoidDose-1 mlgiven by:[facility] B 12 Injection, 1000 mcg (J3420)By: On: 13-Oct-2009 Intent Shayna Harris Comments: Lot:[id number]:04/24Dose:1000mcg/1mlRoute:imSite:right sideGiven by: AYAD Gil B 12 Injection, 1000 mcg (J3420)By: On: 06-Oct-2009 Intent Fast DO, Kristine A Fast DO, Kristine A Comments: Lot #[id number]-04/24Site-right deltoidDose- 1 mlgiven by:[facility] MRI - BrainBy: Fast DO, Kristine [...] do this week and call ressults EKG ([id number])By: Fast DO, Kristine A On: 17-Dec-2008 Intent Fast DO, Kristine A Comments: ekg showed normal sinus rhythym, normal axis, no acute st/t wave changes MAMMOGRAM, SCREENING, BOTH BREASTS On: 17-Dec-2008 Intent ([id number])By: Fast DO, Kristine A Fast DO, Kristine A MRI - Lumbar SpineBy: Fast DO, On: 17-Dec-2008 Intent Kristine A Fast DO, Kristine A FLU VAC, SPLIT, >3 YEARS, INTRAMUSC On: 17-Dec-2008 Intent (97397)By: Lisandra Chilel Comments: Lot #:[id number] date:mount given:0.5mlRoute: IMSite given:left deltoidGiven by: AYAD Dailey ADMINISTRATION OF INFLUENZA VIRUS On: 17-Dec-2008 Intent VACCINE (G0008)By: Lisandra Chilel CT - Abdomen & Pelvis Stone On: 18-Aug-2008 Intent ProtocolBy: Kristine Davis DO A Antwan Comments: stat -call results Kristine MIX A Radiology - Chest- PA and LatBy: On: 24-Mar-2008 Intent Antwan MIX Kristine A Antwan DO, Kristine A Spirometry (63956)By: Antwan MIX, On: 24-Mar-2008 Intent Kristinerafi Davis DO, Kristine A Comments: good effort and curve minimal decrease small airways ADMINISTRATION OF PNEUMOCOCCAL On: 17-Dec-2007 Intent VACCINE (G0009)By: Kristine Davis DO A Antwan MIX Kristine A PNEUM VAC ADLT/IMUMNOSPR, SBC/INTRM On: 18-Dec-2007 Intent (90188)By: Kristine Davis DO Comments: Lot #:[id number] date:08/19Amount given:0.5mlRoute: IMSite given:left deltGiven by: AYAD Dailey DO, Kristine A MAMMOGRAM, SCREENING, BOTH BREASTS On: 17-Dec-2007 Intent ([id number])By: Kristine Davis DO A Antwan Comments: end of feb , Kristine A DXA, BONE DENSITY, AXIAL SKELETON On: 31-Oct-2007 Intent ([id number])By: Kristine Davis DO DO Kristine A Echo CompleteBy: Antwan DO, Kristine A On: 25-Jul-2007 Intent Antwan DO Kristine A Bio Z ([id number])By: Antwan MIX Kristine A On: 25-Jul-2007 Intent Antwan DO Kristine A Comments: good cardiac output and no excesive gfluid EKG (89354)By: Antwan MIX Kristine A On: 25-Jul-2007 Intent Antwan DO Kristine A Comments: ekg showed normal sinus rhythym, normal axis, no acute st/t wave changes CT - Abdomen & Pelvis (IV Contrast On: 11-Jul-2007 Intent Needed)By: Adrianna Morgan DO MAMMOGRAM, SCREENING, BOTH BREASTS On: 27-Mar-2006 Intent ([id number])By: Adrianna Morgan DO Planned Medications Vitamin B-12 [...] MCG/ML Injection Solution Ordered: 22-Apr-2014 Pending [place] INDUSTRIAL TRAINER, Silvia Vitamin B-12 1000 MCG/ML Injection Solution Ordered: 24-Mar-2014 Pending Fast DO, Kristine A Fast DO, Kristine A Vitamin B-12 1000 MCG/ML Injection Solution Ordered: 24-Feb-2014 Pending [place] INDUSTRIAL TRAINER, Silvia Vitamin B-12 1000 MCG/ML Injection Solution [...] MCG/ML Injection Solution Ordered: 11-Dec-2015 Pending [place], [place] Vitamin B-12 1000 MCG/ML Injection Solution Ordered: [...] went well- she saw Dr Mckeon in [facility] for pain management - had inje [...] procedure: (10 End: 10-Dec-2014 21:34 /19/15 at [facility] with dr Mahesh stokes) . There have been no problems with general anesthesia or blood/blood products. Prosthetics include: dentures (partial). Note for Preoperative evaluation: Lef t tka at [facility] on dec 29- Dr Stokes- having spinal [...] scleroderma, leukopenia). Note for Follow up for yarder puncher tim medical issues: Pt had colonoscopy done [...] scleroderma, leukopenia). Note for Follow up for yarder puncher tim medical issues: No routine labs done [...] scleroderma, leukopenia). Note for Follow up for yarder puncher tim medical issues: still having right lateral [...] scleroderma, leukopenia). Note for Follow up for yarder puncher tim medical issues: sdhe is losing weight [...] scleroderma, leukopenia). Note for Follow up for yarder puncher tim medical issues: feels well other than [...] scleroderma, leukopenia). Note for Follow up for yarder puncher tim medical issues: No routine labs done [...] medical issues: she saw Jessee Stringer at [facility] for her groin pain- - said her [...] compliant with instructions. Current medication use: no slivia End: 31-Dec-2009 21:56 e effects and compliant [...] the rare occ that she takes at [facility] but doesnt know accuracy, [ADDITIONAL REASON] Follow [...]
--- OUTSIDE RECORDS SUMMARY | 2018-06-01 23:38 | XMS RPT_ITS | Continuity of Care Document ---
:1940 Author Organization [facility] Address [address] [facility] [address] [place] [address] Phone Care Team Providers Name Role Phone [...] DO, Kristine A Start : 02-Mar-2016 Active Comments:[facility] report#[id number], df approved and given to pt-jf 03/02/16 Imipramine HCl 25 MG Oral Tablet 1 (one) Tablet qhs prn for 0 days Quantity: 30 {Tablet} Refills: 1 Ordered:14-Jul-2017 Fast DO, Kristine AFast DO, Kristine A Start : 14-Jul-2017 Active Comments:verbally called to [facility] - cmanchak 5/4 Leg Cramps 7 to 8 tabs q hs for leg cramps Active Levothyroxine Sodium 150 MCG Oral Tablet 1 tab Tablet qd for 90 days Quantity: 114 {Tablet} Refills: 3 Ordered:03-Mar-2017 Fast DO, Kristine AFast DO, Kristine A Start : 03-Mar-2017 Active Comments:2 full pills on mondayPLEASE PUT [...] cap daily (100 MG) Active Vitamin D3 85176 UNIT Oral Capsule 1 (one) Capsule once [...] 0 days Refills: 0 Ordered:21-Apr-2009 Merlyn Bedoya LPNInactive ASPIRIN LOW DOSE, 81MG (Oral Tablet) 1 [...] days Quantity: 60 {Tablet} Refills: 0 Ordered:22-Jun-2011 Licha Almaguer LPN Start : 13-Apr-2011 End : 22-Jun-2011 Inactive Losartan Potassium 100 MG Oral Tablet 1 (one) Tablet qd for 0 days Quantity: 30 {Tablet} Refills: 6 Ordered:02-Jan-2018 Kristine MIX DO, Debra A Start : 16-Oct-2017 End : 02-Jan-2018 Inactive Omeprazole 40 MG Oral Capsule Delayed Release 1 (one) Capsule DR qd for 90 days Quantity: 90 {Capsule} Refills: 0 Ordered:10-Oct-2017 Kemalmildred Deanna Start : 10-Oct-2017 End : 08-Jan-2018 Inactive Comments:per ER PRILOSEC OTC, 20MG (Oral Tablet Delayed Release) 1 tab qd for 0 days Refills: 0 Ordered:05-Aug-2009 Familia Chilelctive PROBIOTIC (Oral Tablet Delayed Release) 1 (one) Tablet DR qd 2 hours after atb for 14 days Quantity: 14 {Tablet} Refills: 0 Ordered:25-Nov-2013 Antwan DOKristine DO, Kristine A Start : 08-Nov-2013 End [...] QD for 0 days Refills: 0 Ordered:27-Mar-2006 Luz MUELLER Phyllis End : 27-Mar-2006 Discontinued BENICAR, 20MG (Oral [...] : 11-Jul-2007 End : 08-Aug-2007 Discontinued Drisdol 97703 UNIT Oral Capsule 1 (one) Capsule once [...] days Quantity: 90 {Tablet} Refills: 0 Ordered:14-Sep-2016 Lisadnra Chilel Start : 05-Nov-2013 End : 14-Sep-2016 [...] taken as needed. This order discontinued per -Span. ORPHENADRINE CITRATE ER, 100MG (Oral Tablet Extended [...] for 0 days Refills: 0 Ordered:17-Dec-2007 Antwan MIX, Kristine AFast DO, Kristine A Start : 17-Dec-2007 End : 17-Dec-2007 Discontinued SYNTHROID, 150MCG (Oral Tablet) 1 QD Tablet 2 Monday for 0 days Refills: 0 Ordered:15-Jun-2006 Mast Phyllis MUELLER Start : 30-Jan-2006 End : 15-Jun-2006 Discontinued VAGIFEM, 25MCG (Vaginal Tablet) 1 2 times per week for 0 days Refills: 0 Ordered:13-Aug-2007 Lisandra Chilel End : 08-Aug-2007 Discontinued VITAMIN D, 54906HLYE (Oral Capsule) 1 cap q week (24464 UNIT) Start : 27-Mar-2013 End : 27-Mar-2013 Discontinued Comments:This order discontinued per [facility]. VITAMIN D, 60877UZOW (Oral Capsule) 1 cap Capsule q week for 90 days Quantity: 12 {Capsule} Refills: 0 Ordered:27-Mar-2013 Lisandra Chilel Start : 27-Mar-2013 End : 27-Mar-2013 Discontinued Comments:This order discontinued per [facility]. VITAMIN D3, 2000UNIT (Oral Capsule) 1 Capsule qd for 0 days Quantity: 30 {Capsule} Refills: 0 Ordered:13-Nov-2012 Cuauhtemoc Davis DOa AFast DO, Kristine A Start : 13-Nov-2012 [...] and Bladder Result: Comments: See Note; NOTES: [facility] Imaging Services [address] [place] [address] Kidney and Bladder MR#: [id number] Acct: [id number] Name: VIRGINIA URRUTIA Rep #: [id number] : 1940 F 77 From: Doug Sinclair DO PCP: Kristine Davis DO Status: REG CLI Study: Kidney and Bladder Date of Exam: 01/11/18 Exam# [id number] Ordering Dr: Kristine Davis DO STUDY: RENAL [...] Doug Sinclair DO at 23:00 EDT Tel [phone], Service support , CC: Kristine Davis DO Pressfitter: Signed 11-Jan-2018 Kidney and Bladder Result: Comments: See Note; NOTES: [facility] Imaging Services [address] [place] [address] Kidney and Bladder MR#: [id number] Acct: [id number] Name: VIRGINIA URRUTIA Rep #: [id number] : 1940 F 77 From: Doug Sinclair DO PCP: Kristine Davis DO Status: REG CLI Study: Kidney and Bladder Date of Exam: 01/11/18 Exam# [id number] Ordering Dr: Kristine Davis DO ADDENDUM by Doug Sinclair DO on at 1954 ADDENDUM ADDENDUM: Comparison is made with October 07, 2013 renal ultrasound. The right re na l cystic lesions appear stable. New left renal cyst. Findings in the urinary bladder are new since the previous study. Electronically Signed: Doug Sinclair DO at 19:55 EST Tel [phone], [employer] support , 01/22/181954 Date cc: Kristine Davis [...] Doug Sinclair DO at 23:00 EDT Tel [phone], Service support [phone]- [phone], CC: Kristnie Davis DO Pressfitter: Signed 05-Oct-2017 TXT - Blood Flow Screening Result: Comments: See Note; NOTES: [facility] Cardiovascular Services [address] [place] [address] 10/02/17 0928 MR#: [id number] Acct: [id number] Name: VIRGINIA URRUTIA Rep #: [id number] [...] Date Dictated: 10/02/17 0928 Date Transcribed: 10/05/171656 Pressfitter: Signed 02-Oct-2017 SCREENING MAMM (CAD), BILAT Result: Comments: See Note; NOTES: [facility] Imaging Services [address] [place] [address] SCREENING MAMM (CAD), BILAT MR#: [id number] Acct: [id number] Name: VIRGINIA URRUTIA Rep #: [id number] : 1940 F 76 From: Noel Avitia MD PCP: Kristine Davis DO Status: REG CLI Study: SCREENING MAMM (CAD), BILAT Date of Exam: 10/02/17 Exam# [id number] Ordering Dr: Kristine Davis DO MAMMOGRAPHY - [...] Service support , CC: Kristine Davis DO Pressfitter: Signed 14-Sep-2016 Venous Duplex Lower Extremity Result: Comments: See Note; NOTES: [facility] Cardiovascular Services [address] [place] [address] Venous Duplex US, Unilateral 09/14/16 1558 MR#: [id number] Acct: [id number] Name: VIRGINIA YEH Rep #: [id number] : 1940 75 From: Johan Ortega MD Attending Dr: Fast DO,Kristine Status: REG CLI Ordering Dr: Kristine Davis [...] Date Dictated: 09/14/16 1558 Date Transcribed: 09/14/161714 Pressfitter: Signed 23-Aug-2016 Re-Evaluation - PT (1) Result: Comments: See Note; NOTES: [facility] Physical Therapy [facility] [address] [place] [address]. [address] [place] [address] Fax REEVALUATION / MEDICARE RUPALRT MATTHIAS Zamora 4d PHYSICAL THERAPY MR#: [id number] Acct: [id number] Name: VIRGINIA URRUTIA Rep #: [id number] : 1940 75 From: Humberto Aguilar DPT, OCS, CSCS Referring Dr.: OUT OF TOWN DOCTOR Status : REG RCR [facility] Out [facility] Doctor, It has been my pleasure to [...] do not hesitate to contact me at [phone] by phone or if you have questions or concerns regarding this new plan of care! Sincerely, Humberto Aguilar DPT, OC <Electronically signed by PACHECO Delacruz DPT, CSCS> 08/23/16 0929 CC: Kristine Davis DO; OUT [facility] DOCTOR EBG Signed For Medicare only, by signing this I certify the plan of care. Physicians Signature Date 29-Jul-2016 Inital Evaluation (1) - PT Result: Comments: See Note; NOTES: [facility] Physical Therapy [address] [place] [address] Fax REHABILITATION SERVICES INITIAL EVALUATION MR#: [id number] Acct: [id number] Name: VIRGINIA URRUTIA Rep #: [id number] : 1940 75 From: Humberto Aguilar DPT, PACHECO, CSCS Referring DrDav: OUT [facility] DOCTOR Status: REG RCR Insurance: AE [facility] Patient's Visit Information VIRGINIA URRUTIA is a 75 year old F referred to Physical Therapy by Out [facility] Doctor with a diagnosis of L [...] to be FAXED BACK to us at [phone] for Medica re purposes. Please let me [...] Department Summary Result: Comments: See Note; NOTES: [facility] Medical Records Department [address] [place] [address] Emergency Department Summary MR#: [id number] Acct: [id number] Name: VIRGINIA URRUTIA Rep #: [id number] : 1940 75 From: Byron Harris MD [...] MD C C: Kristine Davis DO T: [facility] JOB: [id number] 04/19/161813 <Electronically signed by Byron Harris MD> Date Byron Harris MD Cosigner Signature (If Indicated): Date CC: Kristine Davis DO Date Dictated: 04/15/1634 Date Transcrib ed: 04/15/1634 Pressfitter: Signed 15-Apr-2016 Discharge Instruction Result: Comments: See Note; NOTES: [facility] Medical Records Department [address] [place] [address] Discharge Instruction 04/14/167 MR#: [id number] Acct: [id number] Name: JUNIOR URRUTIAGRIFFIN Delvalle Rep #: [id number] : 1940 75 From: Byron Harris MD PCP: Kristine Davis DO Status: DEP ER ED Disposition - Plan for ED Patient: Chief Complaint: Lower Extremity Injury Instructions: ED S train Muscle Ext Referrals: Kristine Davis DO [Primary Care Provider] - 1 Week if not improving What to do if you have Problems For any increased pain, shortness of breath, bleeding, nausea or vomiting , chest pain, or any unexpected problems, contact your Primary Care Provider. Call Doctors Registry ([phone]) or report to the closest Emergency Room. Call 911 if necessary. 04/15/16 0118 &#6 0;Electronically signed by Byron Harris MD> Date Byron Harris MD Cosigner Signature (If Indicated): Date CC: Kristine Davis DO 14-Apr-2016 Venous Duplex Imag/Limited/Uni Result: Comments: See Note; NOTES: [facility] Imaging Services [address] [place] [address] Verdana 4d Venous Duplex Imag/Limited/Uni MR#: [id number] Acct: [id number] Name: URRUTIARHONA Rep #: [id number] : 1940 F 75 From: Doug Sinclair DO PCP: Kristine Davis DO Status: REG ER Study: Venous Duplex Imag/Limited/Uni Date of Exam: 04/14/16 Exam# [id number] Ordering Dr: Byron Harris MD STUDY: VENOUS [...] Doug Sinclair DO at 23:15 EST Tel [phone], Service support [phone], CC: Kristine Davis DO; Byron Harris MD Pressfitter: Signed 13-Apr-2016 Spine Lumbar (Routine) Result: Comments: See Note; NOTES: [facility] Imaging Services [address] [place] [address] Verdana 4d Spine Lumbar (Routine) MR#: [id number] Acct: [id number] Name: VIRGINIA URRUTIA Kelly mortensen #: [id number] : 1940 F 75 From: Tiara Parsons MD PCP: Kristine Davis DO Status: REG CLI Study: Spine Lumbar (Routine) Date of Exam: 04/13/16 Exam# [id number] Ordering Dr: Kristine Davis DO STUDY: MRI [...] MD at 11:48 EST , Service support [phone], CC: Kristine Davis DO Pressfitter: Signed 12-Apr-2016 PT D/C Summary (1) Result: Comments: See Note; NOTES: [facility] Physical Therapy [facility] [address] [facility] [place] [address] Fax REHABILITATION SERVICES [facility] SUMMARY MR#: [id number] Acct: [id number] Name: VIRGINIA URRUTIA Rep #: [id number] : 1940 75 From: Humberto Aguilar DPT, OCS, CSCS Referring DrDav: Kristine Davis DO Status: REG RCR Insurance: [facility] - PT D/C Summary It has been my pleasure to treat VIRGINIA URRUTIA under orders from Kristine Davis DO, for the diagnosis of R hip pain for a total of 12 visit(s). Discharge Date: [facility] see [facility] information for a summary of their [...] help or hurt it. Will be in [place] in May and will have L TKA [...] please feel free to call me at [phone]. Thank eric laureano for the referral of this patient. Sincerely, Humberto Aguilar DPT, OC <Electronically signed by Humberto Aguilar DPT, PACHECO, CSCS> 04/12/16 1621 CC: Kristine Davis DO EBG Signed 12-Apr-2016 Dexa Bone Density Study (HP) Result: Comments: See Note; NOTES: [facility] Imaging Services [address] [place] [address] Verdaclinton 4d Dexa Bone Density Study (HP) MR#: [id number] Acct: [id number] Name: ENE URRUTIA Rep #: [id number] : 1940 F 75 From: Dashawn Rowe MD PCP: Kristine Davis DO Status: REG CLI Study: Dexa Bone Density Study () Date of Exam: 04/12/16 Exam# [id number] Ordering Dr: Magallanes DO STUDY: DUAL ENERGY [...] Dashawn Rowe MD at 14:32 EST Tel [phone], Service support [phone], CC: Kristine Davis DO Pressfitter: Signed 10-Mar-2016 Inital Evaluation (1) - PT Result: Comments: See Note; NOTES: [facility] Physical Therapy [facility] [address] [place] [address]. [address] [place] [address] Fax REHABILITATION SERVICES INITIAL EVALUATION MR#: [id number] Acct: [id number] Name: VIRGINIA URRUTIA Rep #: [id number] : 1940 75 From: Jennifer Gongora DPT Referring DrDav: Kristine Davis DO Status: REG R Insurance: [facility]' Visit Information VIRGINIA URRUTIA is a 75 [...] to be FAXED BACK to us at [phone] for Medicare purposes. Please let me know if there are questio ns or concerns regarding this plan of care. Physician Signature: Date: <Electronically signed by Jennifer Gongora DPT> 1243 CC: Kristine Davis DO ELR Signed For Medicare only, by signing this I certify the plan of care. Physicians Signature Date 17-Dec-2015 Echocardiogram Complete Result: Comments: See Note; NOTES: [facility] Cardiovascular Services [address] [place] [address] Echo Complete 12/17/15 1401 MR#: [id number] Acct: [id number] Name: VIRGINIA URRUTIA Rep #: [id number] : 1940 75 From: Chicho Bahena MD Attending Dr: Kristine Davis DO Status: REG CLI Ordering Dr: Kristine Davis DO Date: 12/17/15 Location: [facility] Sex: F C Admitted: Reason For [...] Davis Performed By: Bianka Tang, BLAIR, RVT 1700 Date Chicho Bahena MD CC: Kristine Davis DO Date Dictated: 12/17/15 1401 Date Transcribed: 12/17/151700 Pressfitter: Signed 11-Dec-2015 Bilat Scrn Digital AND CAD Result: Comments: See Note; NOTES: [facility] Imaging Services [address] [place] [address] Verdana 4d Bilat Scrn Digital AND CAD MR#: [id number] Acct: [id number] Name: VIRGINIA URRUTIA Rep #: [id number] : 1940 F 75 From: Dashawn Roew MD PCP: Kristine Davis DO Status: REG CLI Study: Bilat Scrn Digital AND CAD Date of Exam: 12/11/15 Exam# [id number] Ordering Dr: Kristine Davis DO MAMMOGRAPHY - [...] been no significant change since the prior s . HPBI/Bilat Scrn Digital AND CAD IMPRESSION: Stable bilateral screening mammogram. Yearly follow-up mammogram recommended. (A) ASSESSMENT CATEGORY: BIRADS Category 1: Negative. A letter regarding these results will be sent to the patient by the facility within 30 days. Approximately 10% of breast canc ers are not detected by mammography. A normal mammogram should not delay biopsy of a clinically suspicious abnormality. [id number] Electronically Signed: Dashawn Rowe MD at 8:47 EDT Tel [phone], Service support [phone], CC: Kristine Davis DO Pressfitter: Signed 03-Jan-2015 Emergency Department Summary Result: Comments: See Note; NOTES: [facility] Medical Records Department [address] [place] [address] Emergency Department Summary MR#: [id number] Acct: [id number] Name: VIRGINIA URRUTIA Mook Rep #: [id number] : 1940 74 From: Ivette Cline PCP: [...] Angel Grossman C: Kristine Davis DO T: [facility] JOB: [id number] 01/03/15 5680 <Electronically signed Marija Cline > Date Ivette Cline Cosigner Signature (If Indicated): Date CC: Kristine Davis DO Date Dictated: 12/27/141108 Date Transcribed: 12/27/141108 Pressfitter: Signed 27-Dec-2014 Discharge Instruction Result: Comments: See Note; NOTES: [facility] Medical Records Department [address] [place] [address] Discharge Instruction 12/27/14 1100 MR#: [id number] Acct: [id number] Name: VIRGINIA URRUTIA Rep #: [id number] : 1940 74 From: Ivette Cline PCP: [...] problems, contact your doctor. Call Doctors Registry ([phone]) or report to the closest Emergency Room. Call 911 if necessary. 12/27/141105 <Electronically signed by Ivette Cline > Date Ivette Cline Cosigner Signature (If Indicated): Date _ CC: Kristine Antwan DO 27-Dec-2014 Spine Cervical without Contras Result: Comments: See Note; NOTES: [facility] Imaging Services [address] [place] [address] Verdana 4d Spine Cervical without Contras MR#: [id number] Acct: [id number] Na me: VIRGINIA URRUTIA Rep #: [id number] : 1940 F 74 From: Doug Sinclair DO PCP: Antwan DOKristine Status: REG ER Study: Spine Cervical without Contras Date of Exam: 12/27/14 Exam# [id number] Ordering Dr : Ivette Cline STUDY: CT [...] Doug Sinclair DO at 10:36 EDT Tel [phone], Service suppo rt [phone], CC: Ivette Cline; Kristine Davis DO Pressfitter: Signed 23-Dec-2014 Emergency Department Summary Result: Comments: See Note; NOTES: [facility] Medical Records Department [address] [place] [address] Emergency Department Summary MR#: [id number] Acct: [id number] Name: VIRGINIA URRUTIA Rep #: [id number] : 1940 74 From: Se Dawkins MD [...] acute. Se Dawkins MD T: [facility] JOB: [id number] 12/23/14 0800 <Electronically signed by Se Dawkins MD> Date Se Dawkins MD Cosigner Signature (If Indicated): Date CC: Kristine Davis DO Date Dictated: 12/23/14707 Date Transcribed: 12/23/14707 Pressfitter: Signed 23-Dec-2014 Discharge Instruction Result: Comments: See Note; NOTES: [facility] Medical Records Department [address] [place] [address] Discharge Instruction 12/23/14704 MR#: [id number] Acct: [id number] Name: VIRGINIA URRUTIA Rep #: [id number] : 1940 74 From: Se Dawkins MD [...] problems, contact your doctor. Call Doctors Registry ([phone]) or r francoise to the closest Emergency Room. Call 911 if necessary. 12/23/14705 <Electronically signed by Se Dawkins MD> Date Se collins MD Cosigner Signature (If Indicated): Date CC: Kristine Davis DO 10-Dec-2014 ELECTROCARDIOGRAM, COMPLETE (ECG) (44530) Result: [MEASUREMENTS ANALYSIS] Date of Test: 12/10/2014 10:23:24; Heart Rate: 91; NM Interval: 144; QRS: 96; QT Interval: 372; Corrected QT Interval (QTc): 426; P Wave [place]: 49; QRS Wave [place]: 35; T Wave [place]: 30; Blood Pressure: 0/0 [ECG DIAGNOSTIC STATEMENTS] Date of Test: 12/10/2014 10:23:24; Summary: Sinus Rhythm Low voltage in limb leads. ABNORMAL 22-Sep-2014 Abdomen/Pelvis WITH Contrast Result: Comments: See Note; NOTES: [facility] Imaging Services [address] [place] [address] CAT Scan Report MR#: [id number] Acct: [id number] Name: VIRGINIA URRUTIA Rep #: [id number] : 1940 F 73 From: Rey Rojo MD PCP: Kristine Davis DO Status: REG CLI Study: Abdomen/Pelvis WITH Contrast Date of Exam: 09/22/14 Exam# [id number] Ordering Dr: Kristine Davis DO STUDY : [...] IMPRESSION: No CT evidence of an ac [place] intra-abdominal or pelvic process. Redemonstrated small multiple gallstones and bilateral renal cysts. Normal appendix. Electronically Signed: Rey Rojo MD at 16:58 EDT Te l [phone], Service support [phone], CC: Kristine Davis DO Pressfitter: Signed 31-Mar-2014 Transvaginal Non- Result: Comments: See Note; NOTES: [facility] Imaging Services [address] [place] [address] Ultrasound Report MR#: [id number] Acct: [id number] Name: VIRGINIA URRUTIA Rep #: [id number] : 1940 F 73 From: Dashawn Rowe MD PCP: Kristine Davis DO Status: REG CLI Study: Transvaginal Non- Date of Exam: 03/31/14 Exam# [id number] Ordering Dr: Kristine Davis DO STUD Y: [...] Dashawn Rowe MD at 13:55 EST Tel [phone], Service support [phone], F ax [phone] CC: Kristine Davis DO Pressfitter: Signed 31-Mar-2014 Pelvic (Non ) Result: Comments: See Note; NOTES: [facility] Imaging Services [address] [place] [address] Ultrasound Report MR#: [id number] Acct: [id number] Name: VIRGINIA URRUTIA Rep #: [id number] : 1940 F 73 From: Dashawn Rowe MD PCP: Kristine Davis DO Status: REG CLI Study: Pelvic (Non ) Date of Exam: 03/31/14 Exam# [id number] Ordering Dr: Kristine Davis DO STUDY: U [...] Dashawn Rowe MD at 13:55 EST Tel [phone], Service support [phone], Fax CC: Kristine Davis DO Pressfitter: Signed 22-Jan-2014 Laverne Esparza Digital & CAD Result: Comments: See Note; NOTES: [facility] Imaging Services [address] [place] [address] Breast Imaging Report MR#: [id number] Acct: [id number] Name: VIRGINIA URRUTIA Rep #: [id number] : 1940 F 73 From: Dashawn Rowe MD PCP: Kristine Davis DO Status: REG CLI Exam# [id number] Ordering Dr: Kristine Davis DO MAMMOGRAPHY - [...] Dashawn Rowe MD at 14:49 EST Tel [phone], Ser vice support [phone], CC: Kristine Davis DO Pressfitter: Signed 07-Nov-2013 L/S Spine Min 4 Views Result: Comments: See Note; NOTES: [facility] Imaging Services [address] [place] [address] Radiology Report MR#: [id number] Acct: [id number] Name: VIRGINIA URRUTIA Rep #: [id number] : 1940 F 73 From: Tod Lamas MD PCP: Kristine Davis DO Status: REG CLI Study: L/S Spine Min 4 Views Date of Exam: 11/07/13 Exam# [id number] Ordering Dr: Kristine Davis DO STUDY: X-RA [...] at 18:52 EDT Tel , Service support [phone], CC: Kristine Davis DO Pressfitter: Signed 07-Nov-2013 Thoracic Spine 3 Views Result: Comments: See Note; NOTES: [facility] Imaging Services [address] [place] [address] Radiology Report MR#: [id number] Acct: [id number] Name: VIRGINIA URRUTIA Rep #: [id number] : 1940 F 73 From: Tod Lamas MD PCP: Kristine Davis DO Status: REG CLI Study: Thoracic Spine 3 Views Date of Exam: 11/07/13 Exam# [id number] Ordering Dr: Kristine Davis DO STUDY: X-R [...] at 17:07 EDT Tel , Service support [phone], CC: Kristine Davis DO Pressfitter: Signed 05-Nov-2013 Abdomen/Pelvis without Cont Result: Comments: See Note; NOTES: [facility] Imaging Services [address] [place] [address] CAT Scan Report MR#: [id number] Acct: [id number] Name: VIRGINIA URRUTIA Rep #: [id number] : 1940 F 73 From: Dashawn Rowe MD PCP: Kristine Davis DO Status: REG CLI Study: Abdomen/Pelvis without Cont Date of Exam: 11/05/13 Exam# [id number] Ordering Dr: Kristine Davis DO STUD Y: [...] Dashawn Rowe MD at 15:39 EDT Tel [phone], Service supp ort [phone], CC: Kristine Davis DO Pressfitter: Signed 07-Oct-2013 Kidney and Bladder Result: Comments: See Note; NOTES: [facility] Imaging Services [address] [place] [address] Ultrasound Report MR#: [id number] Acct: [id number] Name: VIRGINIA URRUTIA Rep #: [id number] : 1940 F 72 From: Brook Cummings DO PCP: Kristine Davis DO Status: REG CLI Study: Kidney and Bladder Date of Exam: 10/07/13 Exam# [id number] Ordering Dr: Aquiles Potts STUDY: RENAL ULTRAS [...] , CC: Aquiles Potts; Kristine Davis DO Pressfitter: Signed Immunization Name Dates Details Influenza (3 years and up) on: 17-Dec-2008 Comments: Lot #:[id number] date:mount given:0.5mlRoute: IMSite given:left deltoidGiven by: AYAD [...] smoker Vital Signs Date Test Result Details 00-Iro-611915:07 Temperature 97.9 f Comments: Method: Temporal Pulse [...] 0.00 cm Results Date Description Value Details 40-Glr-562811:12 ANGTENSIN 1-CONVRT ENZYM Comments: PATIENT NOT FASTINGPERFORMED BY: [employer] [facility] [id number] BY: [address] [id number] ([address]) YOSEF 30 U/L (Normal) Range: 14-82 89-Qdi-588333:12 CCP ANTIBODY (35194) Comments: PATIENT NOT FASTINGPERFORMED BY: [employer] [facility] [id number] BY: [address] [id number] CCP Antibodies IgG/IgA 8 {units} (Normal) Range: 0-19 Comments: Negative <20 Weak positive 20 - 39 Moderate positive 40 - 59 Strong positive >59 11-Zfj-917670:12 CAROL (ANTINUCLEAR ANTIBODY) Comments: PATIENT NOT FASTINGPERFORMED BY: [employer] [facility] [id number] BY: [address] [id number] (97957) CAROL Direct Negative (Normal) 90-Iua-155455:12 RHEUMATOID FACTOR-QUANT Comments: PATIENT NOT FASTINGPERFORMED BY: [address] [id number] BY: [address] [id number] (39272) RA Latex Turbid. <10.0 {IU/mL} (Normal) Range: 0.0-13.9 26-Rmb-115370:12 SED RATE ERYTHROCYTE Comments: PATIENT NOT FASTINGPERFORMED BY: [address] [id number] BY: [address] [id number] (26408) Sedimentation Rate-Westergren 15 mm/h (Normal) Range: 0-40 68-Fri-255340:12 C-REACTIVE PROTEIN Comments: PATIENT NOT FASTINGPERFORMED BY: [address] [id number] BY: [address] [id number] (74599) C-Reactive Protein, Quant 2.9 mg/L (Normal) Range: 0.0-4.9 48-Hyx-076496:12 CBC, PLATELETS & AUT DIFF Comments: PATIENT NOT FASTINGPERFORMED BY: [address] [id number] BY: [address] [id number] (32996) Immature Grans (Abs) 0.0 {x10E3/uL} (Normal) Range: [...] 3.77-5.28 WBC 7.8 {x10E3/uL} (Normal) Range: 3.4-10.8 54-Qfy-233328:12 VITAMIN B-12 Comments: PATIENT NOT FASTINGPERFORMED BY: twidox Ufugpn6115 [facility] [id number] BY: twidox[address] [id number] (CYANOCOBALAMIN) (98849) Vitamin B12 579 pg/mL (Normal) Range: 232-1245 57-Nhv-73205:31 LIPID PANEL (31224) Comments: PATIENT WAS FASTINGPERFORMED BY: DomeePascack Valley Medical CenterGdlblf5676 [facility] [id number]; appt 01/02 LDL/HDL Ratio 1.9 {ratio} (Normal) [...] be changing to: Male Female 40 - 853578 50 - 272127 Triglycerides 145 mg/dL (Normal) Range: 0-149 Cholesterol, Total 240 mg/dL (Abnormal) Range: 100-199 43-Uwj-31667:31 METABOLIC PANEL, COMPREHENSIVE Comments: PATIENT WAS FASTINGPERFORMED BY: [employer]70 Bitcoin BrothersHaywood Regional Medical Center [id number] (23255) ALT (SGPT) 16 [iU]/L (Normal) Range: 0-32 [...] 8-27 Glucose 98 mg/dL (Normal) Range: 65-99 59-Xzt-881758:13 METABOLIC PANEL, BASIC Comments: PATIENT NOT FASTINGPERFORMED BY: [employer]70 [facility] [id number]; review on 01/02 (22533) Calcium 9.9 mg/dL (Normal) Range: 8.7-10.3 Carbon [...] 8-27 Glucose 98 mg/dL (Normal) Range: 65-99 12-Ylv-834307:38 GGT (Gamma Glutamyl Comments: PATIENT NOT FASTINGPERFORMED BY: twidox Knack.itHaywood Regional Medical Center [id number] Transferase) (71005) GGT 20 [iU]/L (Normal) Range: 0-60 88-Gzr-560014:38 Alkaline Phosphatase (85836) Comments: PATIENT NOT FASTINGPERFORMED BY: Domee Knack.itHaywood Regional Medical Center [id number] Alkaline Phosphatase 131 [iU]/L (Abnormal) Range: 39-117 24-Ddc-611612:38 THYROXINE FREE (07669) Comments: PATIENT NOT FASTINGPERFORMED BY: twidox Knack.itHaywood Regional Medical Center [id number] T4,Free(Direct) 1.92 ng/dL (Abnormal) Range: 0.82-1.77 25-Ais-697453:38 FREE TRIDOTHYRONINE (T3) (96018) Comments: PATIENT NOT FASTINGPERFORMED BY: twidox Knack.itHaywood Regional Medical Center [id number] Triiodothyronine,Free,Serum 2.4 pg/mL (Normal) Range: 2.0-4.4 54-Yxi-199114:38 VITAMIN B-12 (CYANOCOBALAMIN) Comments: PATIENT NOT FASTINGPERFORMED BY: [facility] [place]asDublin [place] [id number] (68229) Vitamin B12 665 pg/mL (Normal) Range: 232-1245 77-Jvn-54570:06 VITAMIN B-12 (CYANOCOBALAMIN) Comments: PATIENT NOT FASTINGPERFORMED BY: [facility]6370 [facility] [id number] (90570) Vitamin B12 1301 pg/mL (Abnormal) Range: 232-1245 0-Qeh-511232:25 Metabolic Panel, Comprehensive Comments: PATIENT NOT FASTINGPERFORMED BY: [facility]6370 [facility] [id number]; review on 08/28 (89834) ALT (SGPT) 10 [iU]/L (Normal) Range: 0-32 [...] 8-27 Glucose 84 mg/dL (Normal) Range: 65-99 9-Dqq-515253:25 CBC WITH MANUAL DIFF (32901) Comments: PATIENT NOT FASTINGPERFORMED BY: [facility] Sqejvf6179 [facility] [id number] Immature Grans (Abs) 0.0 {x10E3/uL} (Normal) Range: [...] 3.77-5.28 WBC 7.9 {x10E3/uL} (Normal) Range: 3.4-10.8 5-Ftf-926102:59 METABOLIC PANEL, COMPREHENSIVE Comments: PATIENT NOT FASTINGPERFORMED BY: twidox Okgxrs8741 [facility] [id number] (11260) ALT (SGPT) 10 [iU]/L (Normal) Range: 0-32 [...] 88 mg/dL (Normal) Range: 65-99 :46 TSH (86850) Comments: 6 weeks; PATIENT NOT FASTINGPERFORMED BY: twidoxPascack Valley Medical CenterLddghe4228 [facility] [id number] TSH 2.420 {uIU/mL} (Normal) Range: 0.450-4.500 :23 LIPID PANEL (85627) Comments: PATIENT WAS FASTINGPERFORMED BY: twidoxPascack Valley Medical CenterSsvcgv9346 [facility] [id number] LDL/HDL Ratio 1.6 {ratio_units} (Normal) Range: 0.0-3.2 Comments: LDL/HDL Ratio Men Women 1/2 Avg.Risk 1.0 1.5 Av g.Risk 3.6 3.2 2X Avg.Risk 6.2 5.0 3X Avg.Risk 8.0 6.1 LDL Cholesterol Calc 125 mg/dL (Abnormal) Range: 0-99 VLDL Cholesterol [place] 25 mg/dL (Normal) Range: 5-40 HDL Cholesterol 78 mg/dL (Normal) Triglycerides 124 mg/dL (Normal) Range: 0-149 Cholesterol, Total 228 mg/dL (Abnormal) Range: 100-199 79-Sob-52849:23 METABOLIC PANEL, COMPREHENSIVE Comments: PATIENT WAS FASTINGPERFORMED BY: LabCoPascack Valley Medical CenterYnmuns2748 [facility] [id number] (38344) ALT (SGPT) 15 [iU]/L (Normal) Range: 0-32 [...] Range: 65-99 :23 CBC W/AUTO DIFF WBC (32085) Comments: PATIENT WAS FASTINGPERFORMED BY: [employer]70 Bitcoin BrothersHaywood Regional Medical Center [id number] Immature Grans (Abs) 0.0 {x10E3/uL} (Normal) Range: [...] (Normal) Range: 3.4-10.8 :23 Vitamin D Hydroxy (90403) Comments: PATIENT WAS FASTINGPERFORMED BY: [employer]70 OlivaGrove InstrumentsFormerly [facility], [facility] [id number] Vitamin D, 25-Hydroxy 41.5 ng/mL (Normal) Range: 30.0-100.0 Comments: Vitamin D deficiency has been defined by the [place] ofMedicine and an Endocrine Society practice guideline as alevel of serum 25-OH vitamin D less than 20 ng/mL (1,2).The Endocrine Society went on to further define vitamin Dinsufficiency as a level between 21 and 29 ng/mL (2).1. IOM ([place] of Medicine). 2010. Dietary reference intakes for calcium and D. [place]: The National Academies Press.2. Seng MF, Theresa ROMERO, Kieran KOWALSKI, et al. Evaluation, treatment, and prevention of vitamin D deficiency: an Endocrine Society clinical practice guideline. JCEM. 2010; 96(7):1911-30. :23 TSH (07752) Comments: PATIENT WAS FASTINGPERFORMED BY: [facility] Dyhzhq0362 [facility] Centerin [place] [id number] TSH 0.429 {uIU/mL} (Abnormal) Range: 0.450-4.500 :23 VITAMIN B-12 (CYANOCOBALAMIN) Comments: PATIENT WAS FASTINGPERFORMED BY: [facility] Oupuvr3936 [facility] Centerin [place] [id number] (10589) Vitamin B12 553 pg/mL (Normal) Range: 211-946 4-Sgf-079079:52 CBC, PLATELETS & MANUAL DIFF Comments: PATIENT NOT FASTINGPERFORMED BY: [facility] Rciphc8357 [facility] Centerin [place] [id number] (28833) Immature Grans (Abs) 0.0 {x10E3/uL} (Normal) Range: [...] :09 Basic Metabolic Profile (BMP) Comments: [facility] Kwzlmdpxch4856 [place], [address] GAP 9 (Normal) Range: 5-15 CO2 29.0 [...] CBC-Complete Blood Cnt No Diff Comments: [facility] Mopwqplkyy4[address] [place], [address] MPV 9.1 fL (Normal) Range: 6.2-12.0 PLT [...] 5.7 K/mm3 (Normal) Range: 4.4-11.0 :53 Magnesium (00277) Comments: PATIENT NOT FASTINGPERFORMED BY: [facility] Xruueg1785 [facility] [id number] Magnesium, Serum 1.9 mg/dL (Normal) Range: 1.6-2.3 :53 METABOLIC PANEL, COMPREHENSIVE Comments: PATIENT NOT FASTINGPERFORMED BY: [facility] Jjojec1549 [facility] [id number]; non- emergent till apt (65689) ALT (SGPT) 18 [iU]/L (Normal) Range: 0-32 [...] Glucose, Serum 83 mg/dL (Normal) Range: 65-99 76-Myu-58161:53 TSH (88406) Comments: PATIENT NOT FASTINGPERFORMED BY: [facility] Sdycme9301 [facility] [id number] TSH 1.810 {uIU/mL} (Normal) Range: 0.450-4.500 72-Lqo-899648:15 Vitamin D Hydroxy (66064) Comments: PATIENT NOT FASTINGPERFORMED BY: [facility] Kkhiwu7452 [facility] [id number] Vitamin D, 25-Hydroxy 28.3 ng/mL (Abnormal) Range: 30.0-100.0 Comments: Vitamin D deficiency has been defined by the [place] ofMedicine and an Endocrine Society practice guideline as alevel of serum 25-OH vitamin D less than 20 ng/mL (1,2).The Endocrine Society went on to further define vitamin Dinsufficiency as a level between 21 and 29 ng/mL (2).1. IOM ([place] of Medicine). 2010. Dietary reference intakes for calcium and D. [place]: The National Academies Press.2. Seng MF, Theresa ROMERO, Kieran KOWALSKI, et al. Evaluation, treatment, and prevention of vitamin D deficiency: an Endocrine Society clinical practice guideline. JCEM. 2010; 96(7):1911-30. 64-Zzj-082633:15 VITAMIN B-12 (CYANOCOBALAMIN) Comments: PATIENT NOT FASTINGPERFORMED BY: [facility] Rjxuze9875 The Beauty TribeFormerly [facility], [facility] [id number] (29445) Vitamin B12 447 pg/mL (Normal) Range: 211-946 20-Wgd-716182:15 CBC W/AUTO DIFF WBC Comments: PATIENT NOT FASTINGPERFORMED BY: [facility] Sxxcyz3631 [facility] [id number] Information: SRC:ALONZO (75048) Immature Grans (Abs) 0.0 {x10E3/uL} (Normal) Range: [...] 3.77-5.28 WBC 5.6 {x10E3/uL} (Normal) Range: 3.4-10.8 22-Gjm-108404:15 METABOLIC PANEL, COMPREHENSIVE Comments: PATIENT NOT FASTINGPERFORMED BY: [facility] Clipdo3982 [facility] [id number] (34111) ALT (SGPT) 13 [iU]/L (Normal) Range: 0-32 [...] Glucose, Serum 87 mg/dL (Normal) Range: 65-99 76-Obv-887818:50 Urinalysis, Office (34202) UA - LEUKOCYTE ESTERASE Trace (Normal) UA - NITRITE Negative (Normal) URINE UROBILINGN TUNDE TIMED Normal mg/dL (Normal) UA - PROTEIN Negative mg/dL (Normal) UA - PH 5 (Abnormal) UA - BLOOD Negative (Normal) UA - SPECIFIC GRAVITY 1.025 (Normal) UA - KETONES Negative mg/dL (Normal) UA - BILIRUBIN Negative (Normal) UA - GLUCOSE Negative (Normal) 95-Sib-410345:15 URINE CESAR CULTURE (TUNDE COL Comments: PATIENT NOT FASTINGPERFORMED BY: SiOxHaywood [facility] Center [id number] COUNT) (32016) Result 1 MUG (Normal) Comments: Mixed urogenital floraGreater than 100,000 colony forming units per mL Urine Culture,Comprehensive Final report (Normal) 27-Aop-497728:29 URINE CESAR CULTURE-IDENTIFICATN Comments: PATIENT NOT FASTINGPERFORMED BY: NovusFormerly [facility], [facility] [id number] Information: [id number] (27429) Result 1 MUG (Normal) Comments: Mixed urogenital flora1,000 Colonies/mL Urine Culture,Comprehensive Final report (Normal) 68-Myt-175709:29 URINE CESAR CULTURE-TUNDE COL Comments: PATIENT NOT FASTINGPERFORMED BY: Domee Knack.itHaywood Regional Medical Center [id number] Information: SRC:URC [id number] COUNT (22540) Result 1 MUG (Normal) Comments: Mixed urogenital flora25,000-50,000 colony forming units per mL Urine Final report (Normal) Culture,Comprehensive 01-Rrr-645319:07 Urinalysis, Office (28130) UA - LEUKOCYTE ESTERASE Small (Normal) UA - NITRITE Negative (Normal) URINE UROBILINGN TUNDE TIMED Normal mg/dL (Normal) UA - PROTEIN Negative mg/dL (Normal) UA - PH 5 (Abnormal) UA - BLOOD Hemolyzed Trace (Normal) UA - SPECIFIC GRAVITY 1.015 (Normal) UA - KETONES Negative mg/dL (Normal) UA - BILIRUBIN Negative (Normal) UA - GLUCOSE Negative (Normal) 9-Cxs-272301:02 URINE CESAR CULTURE (TUNDE Comments: PATIENT NOT FASTINGPERFORMED BY: [employer]70 [facility] [id number] Information: SRC:[facility] [id number] COL COUNT) (28455) Result 1 NG36 (Normal) Comments: No growth in 36 - 48 hours. Urine Culture,Comprehensive Final report (Normal) 17-Sep-20149:51 CBC With Differential/Platelet Comments: PATIENT NOT FASTINGPERFORMED BY: twidox Qszzex8805 [facility] [id number] Information: [id number] Immature Grans (Abs) 0.0 {x10E3/uL} (Normal) Range: [...] Panel (14) Comments: PATIENT NOT FASTINGPERFORMED BY: [facility] Biygxt8084 [facility] [id number] ALT (SGPT) 11 [iU]/L (Normal) Range: 0-32 [...] (Normal) Range: 65-99 :13 SED RATE ERYTHROCYTE (79246) Comments: PATIENT WAS FASTINGPERFORMED BY: twidoxPascack Valley Medical CenterGjuylk0428 [facility] [id number] Sedimentation Rate-Westergren 6 mm/h (Normal) Range: 0-40 :13 C-REACTIVE PROTEIN (29397) Comments: PATIENT WAS FASTINGPERFORMED BY: TBLNFilms.comHutzel Women'S Hospital6370 [facility] [id number] C-Reactive Protein, Quant 2.2 mg/L (Normal) Range: 0.0-4.9 :13 CBC W/AUTO DIFF WBC Comments: PATIENT WAS FASTINGPERFORMED BY: twidox Hqlhuk0410 [facility] [id number] Information: [id number] (88546) Immature Grans (Abs) 0.0 {x10E3/uL} (Normal) Range: [...] 4.6 {x10E3/uL} (Normal) Range: 3.4-10.8 :13 TSH (57942) Comments: PATIENT WAS FASTINGPERFORMED BY: SiOxHaywood [facility] Center [id number] TSH 0.584 {uIU/mL} (Normal) Range: 0.450-4.500 65-Dct-520220:42 Urinalysis, Office (02526) UA - LEUKOCYTE ESTERASE Small (Normal) UA - NITRITE Negative (Normal) URINE UROBILINGN TUNDE TIMED Normal mg/dL (Normal) UA - PROTEIN Negative mg/dL (Normal) UA - PH 6 (Abnormal) UA - BLOOD Negative (Normal) UA - SPECIFIC GRAVITY 1.025 (Normal) UA - KETONES Negative mg/dL (Normal) UA - BILIRUBIN Negative (Normal) UA - GLUCOSE Negative (Normal) 16-Nai-962847:43 URINE CESAR CULTURE (TUNDE Comments: PATIENT NOT FASTINGPERFORMED BY: [facility] [id number] Information: SRC:UR [id number] COL COUNT) (57421) Result 1 MUG (Normal) Comments: Mixed urogenital flora25,000-50,000 colony forming units per mL Urine Final report (Normal) Culture,Comprehensive :13 Vitamin D Hydroxy (27040) Comments: PATIENT WAS FASTINGPERFORMED BY: Xecced6370 [facility] [id number] Vitamin D, 25-Hydroxy 38.7 ng/mL (Normal) Range: 30.0-100.0 Comments: Vitamin D deficiency has been defined by the [place] ofMedicine and an Endocrine Society practice guideline as alevel of serum 25-OH vitamin D less than 20 ng/mL (1,2).The Endocrine Society went on to further define vitamin Dinsufficiency as a level between 21 and 29 ng/mL (2).1. IOM ([place] of Medicine). 2010. Dietary reference intakes for calcium and D. [place]: The National Academies Press.2. Seng MF, Theresa NC, Kieran KOWALSKI, et al. Evaluation, treatment, and prevention of vitamin D deficiency: an Endocrine Society clinical practice guideline. JCEM. 2010; 96(7):1911-30. :13 LIPID PANEL (12168) Comments: PATIENT WAS FASTINGPERFORMED BY: twidox Btowin4471 [facility] [id number] LDL/HDL Ratio 1.8 {ratio_units} (Normal) Range: 0.0-3.2 [...] PANEL, COMPREHENSIVE Comments: PATIENT WAS FASTINGPERFORMED BY: [employer]6370 [facility] [id number] (02187) ALT (SGPT) 14 [iU]/L (Normal) Range: 0-32 [...] Glucose, Serum 86 mg/dL (Normal) Range: 65-99 69-Mme-69982:13 VITAMIN B-12 (CYANOCOBALAMIN) Comments: PATIENT WAS FASTINGPERFORMED BY: [employer]70 [facility] [id number] (74492) Vitamin B12 >1999 pg/mL (Abnormal) Range: 211-946 66-Gas-664708:00 Metabolic Panel, Basic Comments: 6 weeks; PATIENT NOT FASTINGPERFORMED BY: [employer] Qkfbol0480 [facility] [id number] Information: [id number] (55301) Calcium, Serum 9.7 mg/dL (Normal) Range: 8.6-10.2 [...] Glucose, Serum 90 mg/dL (Normal) Range: 65-99 02-Aft-321904:24 URINE CESAR CULTURE-IDENTIFICATN Comments: PATIENT NOT FASTINGPERFORMED BY: [facility]6370 [facility] [id number] Information: [id number] (69569) Result 1 ENTEGA (Abnormal) Comments: Enterococcus uuvxxshlgw59,000-25,000 colony forming units per mLNote: For enterococci with intrinsic intermediate-level resistance tovancomycin, such as E. casseliflavus and E. gallinarum, VRE infection control measures are not applicable, per the CLSI (formerly NCCLS).For Enterococcus species, cephalosporins, aminoglycosides (except forhigh-level resistance screening), clindamycin, and trimethoprim-curtis lfamethoxazole are not effective clinically. Fluoroquinolones areused primarily for treating urinary tract infections. (CLSI, X391-C29,2009) S = Susceptible; I = Intermediate; R = Resistant * P = Positive; N = Negative MICS are expressed in micrograms per mL Antibiotic RSLT#1 RSLT#2 RSLT#3 RSLT#4Ciprofloxacin SGentami lien 500 SLevofloxacin SNitrofurantoin IPenicillin SStreptomycin 2000 STetracycline SVancomycin R Urine Final report (Abnormal) Culture,Comprehensive 88-Rid-406536:51 METABOLIC PANEL, Comments: PATIENT NOT FASTINGPERFORMED BY: [facility] HospitalCoPasc[facility] Medical CenterTqjtri0045 [facility] [id number] Information: [id number] COMPREHENSIVE (36742) ALT (SGPT) 20 [iU]/L (Normal) Range: 0-32 [...] Glucose, Serum 80 mg/dL (Normal) Range: 65-99 25-Ofq-745929:04 Microscopic Examination Comments: PATIENT NOT FASTINGPERFORMED BY: Xecced6370 [facility] [id number] Bacteria Few (Normal) Mucus Threads Present (Normal) Epithelial Cells (non renal) 0-10 {/hpf} (Normal) Range: 0 - 10 RBC None seen {/hpf} (Normal) Range: 0 - 2 WBC None seen {/hpf} (Normal) Range: 0 - 5 :04 URINE CESAR CULTURE (TUNDE COL Comments: PATIENT NOT FASTINGPERFORMED BY: POWWOW [facility] Zsdrry4453 [facility] [id number] COUNT) (28136) Antimicrobial MIHEAD (Normal) Comments: S = Susceptible; [...] mL (Abnormal) Urine Final report Culture,Comprehensive (Abnormal) 13-Jan-764829:04 URINALYSIS, W/ MICRO Comments: PATIENT NOT FASTINGPERFORMED BY: [place] 4714970 [facility] [id number] Information: SRC: [id number] (51926) Microscopic Examination See below: (Normal) Comments: Microscopic was indicated and was performed. Microscopic Examination MICRON (Normal) Comments: Microscopic follows if indicated. Nitrite, Urine Negative (Normal) Bilirubin Negative (Normal) Urobilinogen,Semi-Qn 0.2 mg/dL (Normal) Range: 0.0-1.9 Ketones Negative (Normal) Occult Blood Negative (Normal) Glucose Negative (Normal) Protein Negative (Normal) WBC Esterase Negative (Normal) Appearance Clear (Normal) Urine-Color Yellow (Normal) pH 6.0 (Normal) Range: 5.0-7.5 Specific [place] 1.010 (Normal) Range: 1.005-1.030 34-Utc-599296:00 METABOLIC PANEL, Comments: PATIENT NOT FASTINGPERFORMED BY: [facility]6370 [facility] [id number] Information: [id number] COMPREHENSIVE (67878) ALT (SGPT) 11 [iU]/L (Normal) Range: 0-32 [...] CHOL 200 mg/dL (Normal) Comments: <200 mg/dL Ohoyccrrx011-509 mg/dL Borderline>240 mg/dL High Risk :26 TSH 1.85 {uIU/mL} (Normal) Range: 0.358-3.74 :26 VITD 72.9 mg/mL (Normal) Comments: will review at 11-05 appt Comments: Vitamin D 25(OH) Status RangeDeficiency <20 ng/mL (50nmol/L)Insuffciency 20 - 30 ng/mL (50 - 75 nmol/L)Sufficiency 30 - 100 ng/mL (75 - 250 nmol/L)Toxicity >100 ng/mL (>250 nmol/L) 9-Pfu-424333:05 Urinalysis, Office (06471) UA - LEUKOCYTE ESTERASE Negative (Normal) UA - NITRITE Negative (Normal) URINE UROBILINGN TUNDE TIMED 2 mg/dL (Normal) UA - PROTEIN 30 mg/dL (Normal) UA - PH 6.0 (Normal) Comments: 5.5 UA - BLOOD Negative (Normal) UA - SPECIFIC GRAVITY 1.030 (Abnormal) UA - KETONES Small mg/dL (Normal) UA - BILIRUBIN Negative (Normal) UA - GLUCOSE Negative (Normal) 9-Oye-086403:33 URINE CESAR CULTURE-TUNDE COL Comments: PERFORMED BY: SiOxAndel [place] [id number] COUNT (39022) Result 1 MUG (Normal) Comments: Mixed urogenital flora10,000-25,000 colony forming units per mL Urine Final report (Normal) Culture,Comprehensive 90-Cna-885006:52 URINE CESAR CULTURE-TUNDE COL Comments: PATIENT NOT FASTINGPERFORMED BY: [facility]Former[facility], [facility] [id number] Information: SRC:UR [id number] COUNT (16776) Antimicrobial MIHEAD (Normal) Comments: S = Susceptible; [...] CHOL 203 mg/dL (Abnormal) Comments: <200 mg/dL Gcxnrpkpe709-007 mg/dL Borderline>240 mg/dL High Risk :47 TSH 1.52 {uIU/mL} (Normal) Range: 0.358-3.74 :47 VITD 59.3 mg/mL (Normal) Comments: Vitamin D 25(OH) Status RangeDeficiency <20 ng/mL (50nmol/L)Insuffciency 20 - 30 ng/mL (50 - 75 nmol/L)Sufficiency 30 - 100 ng/mL (75 - 250 nmol/L)Toxicity >100 ng/mL (>250 nmol/L) 5-Bzr-817484:44 CBC, PLATELETS & AUT DIFF Comments: PATIENT NOT FASTINGPERFORMED BY: [facility] Zmqdor6451 [facility] [id number] Information: [id number] (17892) Immature Grans (Abs) 0.0 {x10E3/uL} (Normal) Range: [...] (Normal) Range: 3.4-10.8 :44 FOLIC ACID SERUM (86175) Comments: PATIENT NOT FASTINGPERFORMED BY: Domee [employer] [facility] [id number] Folate (Folic Acid), Serum 14.4 ng/mL (Normal) Comments: A serum folate concentration of less than 3.1 ng/mL isconsidered to represent clinical deficiency. :44 RETICULOCYTE COUNT [facility]EN[facility]L Comments: PATIENT NOT FASTINGPERFORMED BY: Domee Qghkiy2043 [facility] [id number] (97199) Reticulocyte Count 1.1 % (Normal) Range: 0.6-2.6 :44 LDH (LD) (LACTATE DEHYDROGENASE) Comments: PATIENT NOT FASTINGPERFORMED BY: Domee Jwwkke4241 [facility] [id number] (74995) LDH 250 [iU]/L (Abnormal) Range: 0-214 5-Xzy-527431:44 IRON BINDING CAPACITY (TIBC) Comments: PATIENT NOT FASTINGPERFORMED BY: Domee [employer] [facility] [id number] (89947) Iron Saturation 16 % (Normal) Range: 15-55 Iron, Serum 52 ug/dL (Normal) Range: 35-155 UIBC 270 ug/dL (Normal) Range: 150-375 Iron Bind.Cap.(TIBC) 322 ug/dL (Normal) Range: 250-450 :44 FERRITIN (95000) Comments: PATIENT NOT FASTINGPERFORMED BY: [facility] Lzjcgv0779 [place] [id number] Ferritin, Serum 42 ng/mL (Normal) Range: 15-150 [...] Rowe M.D.July 23, 2012 at 2:35:49 PM [id number] Signed GP/GP If you are the referring physicia n and would like to consult with theradiologist who provided this interpretation, please contact Ofelia Rodriguez at [phone]. If this radiologist is unavailable, youwill be directed to [facility] radiologist to assist. If you are a patient with a question regarding this report, pleasecontactyour referring physician directly. Professional Interpretation Provided By: [employer], Phone , These documents contain legally protected [...] 3 1439 Sign by: Dashawn Rowe MD 2-Xeg-256129:59 KIDNEY Radiology Report See Note (Normal) Comments: [...] Welsh M.D.July 11, 2012 at 5:00:06 PM [id number] Signed TT/TT If you are the referring physician and would like to consult with theradiologist who provided this interpretation, please contact Brittney Mccormack M.D. at [phone]. If this radiologist is unavailable, youwillbe directed to another radiologist to assist. If you are a patient with a question regarding this report, pleasecontactyour referring physician directly. Professional Interpretat ion Provided By: [employer], Phone , These documents contain legally protected and confidential healthinformation intended only for the use of the individual or entity [facility] [place] hospital. If you are not the intended recipient, you are hereby notifiedthatany disclosure, copying, distribution, or other use of these documents isstrictly prohibited. If you have received this informa tion in error,pleasenotify the sender immediately and arrange for the return or destructionofthese documents. Dictated on 07/11/12 1528 by Brittney Welsh MDTranscribed on 07/11/121824 by ITS IMPORTS ign by Brittney Welsh MD on 07/11/121825 Sign by: Brittney Welsh MD 1-Yem-916835:59 TRANSVAGINAL NON- Radiology Report See Note (Normal) [...] Welsh M.D.July 11, 2012 at 4:45:28 PM [id number] Signed TT/TT If you are the referring physician and would like to consult with sebastian taylorogjudi who provided this interpretation, please contact Brittney Mccormack M.D. at [phone]. If this radiologist is unavailable, youwillbe directed to another radiologist to assist. If you are a p atient with a question regarding this report, pleasecontactyour referring physician directly. Professional Interpretation Provided By: [employer]pere, Phone , These documents contain legally protected [...] return or dest ructionofthese documents. Dictated on 07/11/12 145 by Blaise CARRANZA,TheresaTranscribed on 07/11/121651 by ITS [...] CHOL 210 mg/dL (Abnormal) Comments: <200 mg/dL Paqizjbyy051-004 mg/dL Borderline>240 mg/dL High Risk :44 MG 1.8 mg/dL (Normal) Range: 1.8-2.4 26-Rbu-43640:44 SED tSEDRATE 18 mm/h (Normal) Range: 0-30 :44 TSH 8.94 {uIU/mL} (Abnormal) Range: 0.358-3.74 :44 VITD 90.8 ng/mL (Normal) Comments: Vitamin D 25(OH) Status RangeDeficiency <20 ng/mL (50nmol/L)Insufficiency 20 - 30 ng/mL (50 - 75 nmol/L)Sufficiency 30 - 100 ng/mL (75 - 250 nm ol/L)Toxicity >100 ng/mL (250 nmol/L)Effective 201204-Jul-201298-Ntj-169643:29 ABDOMEN/PELVIS WITH CONTRAST Radiology Report See Note [...] to well characterize low-attenuation left renal lesion,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 Consider follow-up renal sonographyforfurther evaluation as clinically warranted. Signed:Matilda AvilesJuly 04, 2012 at 5:12:21 PM [id number] Signed DL/DL If you are the referring physician and would like to consult with theradiologist who provided this interpretation, please contact Ofelia Kyle at [phone]. If this radiologist is unavailable, youwillbe directed to another radiologist to assist. If you are a patient with a question regarding this report, pleasecontactyo ur referring physician directly. Professional Interpretation Provided By: [employer], Phone , These documents contain legally protected [...] on 07/04/121714 Sign by: Salinas Champion MD 92-Kkw-823501:18 CRE GFRAA 41 mL/min (Abnormal) GFR 34 mL/min (Abnormal) CREAT 1.6 mg/dL (Abnormal) Range: 0.6-1.0 02-Vrw-478607:15 BMP GAP 7 (Normal) Range: 5-15 CO2 [...] 7-18 GLU 80 mg/dL (Normal) Range: 70-110 28-Nek-985021:15 TSH 3.05 {uIU/mL} (Normal) Range: 0.358-3.74 :22 B12 577 pg/mL (Normal) Range: 211-946 Comments: Performed at: [address] [id number] Director: Patito Segovia MD, Phone: [phone] :[phone] CBCMD RBCM NORM C+C {NORMAL} (Normal) [...] D deficiency has been defined by the [place] of[place]icine and an Endocrine Society practice guideline as alevel of serum 25-OH vitamin D less than 20 ng/mL (1,2).The Endocrine Society went on to further define vitamin Dinsufficiency as a level between 21 and 29 ng/mL (2).1. IOM ([place] of Medicine). 2010. Dietary reference intakes for calcium and D. [place]: The National Academies Press.2. Seng MF, Theresa ROMERO, Kieran KOWALSKI, et al. Evaluation, treatment, and prevention of vitamin D deficiency: an Endocrine Society clinical practice guideline. JCEM. 2010; 96(7):1911-30. 24-Hcg-624564:37 BREAST UNILATERAL Radiology Report See Note (Normal) [...] Category 3: Probably Benign Finding - Initial Zmjvz-XdbffcovJfearo-xi Suggested. Signed:Dashawn Rowe M.D.November 09, 2011 at 2:49:17 PM [id number] Signed GP/GP If you are the referring physician and would like to consult with theradiologist who provided this interpretation, please contact Herb blake M.D. at [phone]. If this radiologist is unavailable, youwill be directed to another radiologist to assist. If you are a patient with a question regarding this report, pleasecontactyour referri ng physician directly. Professional Interpretation Provided By: [employer], Phone , These documents contain legally protected [...] 11/09/11 1456 Sign by: Dashawn Rowe MD 32-Inp-038532:47 BREAST UNILATERAL Radiology Report See Note (Normal) [...] Category 3: Probably Benign Finding - Initial Xqydq-CpjlwhxoUqdeui-fz Suggested. To consult with a radiologist regarding this report, please call our 43X8yrvujlz line @ Dictated on 06/22/11 1428 by Soledad CARRANZA,Tacobed on 06/22/11 1547 by ITS IMPORTSign by Dashawn Rowe MD on 06/22/11 1548 Sign by: ___ Dashawn Rowe MD 96-Nxm-044556:47 UNILAT LT DIAG DIGITAL & CAD Radiology [...] radiologist regarding this report, please call our 34K7ifshybl line @ Dictated on 06/22/11 1357 by Taco Rowe MDbed on 1450 by ITS IMPORTSign by Dashawn Rowe MD on 06/22/11 1451 Sign by: Dashawn Rowe MD 1-Cex-185175:14 CERV SPINE,MIN 4 VIEWS Radiology Report See [...] radiologist regarding this report, please call our 46C2bppiyog line @ Dictated on 04/13/11 1408 by LISANDRA DUMONT MDTranscribed on 04/14/11 1628 by ITS IMPORTSign by Mook DUMONT MD on 04/14/11 1629 Sign by: LISANDRA DUMONT MD 86-Lgj-52701:38 CBCD,SMEAR DIFF RED CELL MORPH SeeNote {NORMAL} [...] > or = 500 mg/dL :38 VIT D, 677[address] 47.8 ng/mL (Normal) Range: 30.0-100.0 Comments: Vitamin D deficiency has been defined by the [place] ofMedicine and an Endocrine Society practice guideline as alevel of serum 25-OH vitamin D less than 20 ng/mL (1,2).The Endocrine Society went on to further define vitamin Dinsufficiency as a level between 21 and 29 ng/mL (2).1. IOM ([place] of Medicine). 2011. Dietary reference intakes for calcium and D. [place]: The National Academies Press.2. Seng MF, Theresa ROMERO, Kieran KOWALSKI, et al. Evaluation, treatment, and prevention of vitamin D deficiency: an Endocrine Society clinical practice guideline. JCEM. 2010; 96(7): 1911-30.Performed at: [address] [id number] Director: Patito Segovia MD, Phone: [phone] :[phone] VITAMIN B12 781 pg/mL (Normal) Range: 254-1320 Comments: There is a low frequency possibility that high titers ofintrinsic blocking antibodies may not be completely inactivated during the reaction pretreatment stepof this testing method. If test results are i n conflictwith the clinical diagnosis, patient should be testedfor the presence of intrinsic factor blocking antibodies. 99-Teh-329323:29 DEXA BONE DENSITY STUDY (HP) Comments: appt [...] ITS IMPORTSign by Dashawn Rowe MD on 02/02/11842 Sign by: Dashawn Rowe MD 49-Gwh-670824:03 Thin prep Pap Comments: Source.............Cervical;EndocervicalNo. of containers..01 CYTYC Thin Prep VialPERFORMED BY: [facility] [id number] Information: [id number] ([id number]) Note: PAPSMR (Normal) Comments: The Pap smear [...] ; Routine gynecolog ical examina Deidre Aguila Telecom Assistant (ASCP) 89-Wjd-004975:01 BILAT SCRN DIGITAL & CAD Radiology Report [...] 11/10/10 1453 Sign by: Dashawn Rowe MD 86-Vin-166673:16 COMP METABOLIC Comments: appt 11/05/10 GAP 10 [...] :16 TSH 0.99 {uIU/mL} (Normal) Range: 0.358-3.74 81-Lks-615920:16 VIT D,25 46069 45.6 ng/mL (Normal) Range: 32.0-100.0 Comments: Recent studies consider the lower limit of 32.0 ng/mL to zoraida threshold for optimal health.Everardo HEREDIA. J Nutr. 2004;135(2):317-22.Performed at: - [facility] [id number]Lab Director: Patito Segovia MD, Phone: [phone] 16-Oju-344421:16 VITAMIN B12 582 pg/mL (Normal) Range: 254-1320 Comments: There is a low frequency possibility that high titers ofintrinsic blocking antibodies may not be completely inactivated during the reaction pretreatment stepof this testing method. If test results are i n conflictwith the clinical diagnosis, patient should be testedfor the presence of intrinsic factor blocking antibodies. 81-Lge-143824:20 CBCD,SMEAR DIFF PLT EST SeeNote (Normal) Comments: [...] {uIU/mL} (Normal) Range: 0.358-3.74 :20 VIT D,25 21390 43.2 ng/mL (Normal) Range: 32.0-100.0 Comments: Recent studies consider the lower limit of 32.0 ng/mL to zoraida threshold for optimal health.Mcgee BW. J Nutr. 2004;135(2):317-22.Performed at: [facility] [employer] [id number]Lab Director: Patito Segovia MD, Phone: [phone] 34-Wpw-931449:20 VITAMIN B12 516 pg/mL (Normal) Range: 254-1320 Comments: There is a low frequency possibility that high titers ofintrinsic blocking antibodies may not be completely inactivated during the reaction pretreatment stepof this testing method. If test results are i n conflictwith the clinical diagnosis, patient should be testedfor the presence of intrinsic factor blocking antibodies. :44 VIT D,25 66917 38.6 ng/mL (Normal) Range: 32.0-100.0 Comments: Recent studies consider the lower limit of 32.0 ng/mL to zoraida threshold for optimal health.Mcgee BW. J Nutr. 2004;135(2):317-22.Performed at: [facility] [employer] [id number] 296Lab Director: Patito Segovia MD, Phone: [phone] :44 VITAMIN B12 398 pg/mL (Normal) Range: [...] intrinsic factor blocking antibodies. :24 VITD 1,25 86126 57.3 pg/mL (Normal) Range: 10.0-75.0 Comments: Performed at: [address] [id number] Director: Roderick Ramirez MD, Phone: [phone] 06-Fnc-230290:26 CBCD,SMEAR DIFF RED CELL MORPH SeeNote {NORMAL} [...] the presence of intrinsic factor blocking antibodies. 4-Lgh-821973:16 MRA HEAD WITHOUT CONTRAST Radiology Report See Note (Normal) Comments: Exam Number: [id number] CLINICAL:69 year old female with numbness in [...] There is a fetalconfiguration of the right DIRECTOR OF FIELD COORDINATION. No definite P1 segment connectingthe artery to the basilar artery is identified. IMPRESSION:No demonstrated aneurysm. Anatomic variations of the wr[place]ell of [place]. 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 The rightinternal carotid arteries supplies the left VINAY territory, and islarger than the left internal carotid. 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 Reported By: DOMENICA MCGARRY M.D. 58-Hbn-402583:41 BRAIN W/WO CONTRAST Radiology See Note Comments: Exam Number: [id number] CLINICAL: MRI BRAIN WITHOUT AND WITH CONTRAST [...] mild degenerative remodeling of the mandibular condyles.ADDENDUM: [id number] MRI/BRWW CLINICAL: MRI BRAIN WITHOUT AND WITH [...] CHOL 188 mg/dL (Normal) Comments: <200 mg/dL Aujiuppdu469-286 mg/dL Borderline>240 mg/dL High Risk HDL 54 [...] Range: 0.358-3.74 5 (Normal) :3 VIT D,25 57677 29.3 ng/mL (Abnormal) Range: 32.0-100.0 5 Comments: Recent studies consider the lower limit of 32.0 ng/mL to zoraida threshold for optimal health.Everardo HEREDIA. J Nutr. 2004;135(2):317-22.Performed at: [facility] [place] [id number] [place] [id number]Lab Director: Patito Segovia MD, Phone: [phone] :[phone] VITAMIN B12 158 pg/mL (Abnormal) Range: 254-1320 5 Comments: There is a low frequency possibility that high titers ofintrinsic blocking antibodies may not be completelyinactivated during the reaction pretreatment stepof this testing method. If test results are in conflictwith the clinical diagnosis, patient should be testedfor the presence of intrinsic factor blocking antibodies. 78-Rwr-309548:17 ABDOMEN W/WO IV CONTRAST Radiology Report See Note (Normal) Comments: Exam Number: [id number] CLINICAL:Right upper quadrant pain CT ABDOMEN WITH [...] parapelvic renal cysts. Reported By: PRADIP FRANCO 06-Ytd-156757:29 BMP BUN 16 mg/dL (Normal) Range: 7-18 [...] mg/dL (Normal) Range: 70-110 :37 VIT D,25 77655 26.3 ng/mL (Abnormal) Range: 32.0-100.0 Comments: Recent studies consider the lower limit of 32.0 ng/mL to zoraida threshold for optimal health.Everardo HEREDIA. J Nutr. 2004;135(2):317-22.Performed at: [address] [id number] Director: Ade Rubio MD 06-Oyu-430889:36 GALLBLADDER (HP) Radiology Report See Note (Normal) Comments: Exam Number: [id number] LIMITED ABDOMINAL ULTRASOUND FOR GALLBLADDER HISTORYChest pain. [...] kidneyis suggested. Reported By: DOMENICA GATES M.D. 3-Ick-832026:21 Lipase (09349) Comments: PATIENT NOT FASTINGPERFORMED BY: [address] [id number] Lipase, Serum 42 U/L (Normal) Range: 0-59 0-Scr-846774:21 Amylase (08057) Comments: PATIENT NOT FASTINGPERFORMED BY: [address] [id number] Amylase, Serum 54 U/L (Normal) Range: 31-124 1-Ygc-693270:21 CBC WITH MANUAL DIFF Comments: PATIENT NOT FASTINGPERFORMED BY: [address] [id number] Information: [id number] ([id number]) Baso (Absolute) 0.1 {x10E3/uL} (Normal) Range: 0.0-0.2 [...] 3.80-5.10 WBC 5.9 {x10E3/uL} (Normal) Range: 4.0-10.5 3-Cmi-198811:21 METABOLIC PANEL, COMPREHENSIVE Comments: PATIENT NOT FASTINGPERFORMED BY: [facility] [id number] [facility] [id number] ([id number]) ALT (SGPT) 15 [iU]/L (Normal) Range: 0-40 [...] Comments: DR DAVIS ORDERED CMP,CBCMD,CAROL,RF,TSH,CRP,SED,CCP,LIPIDDR VELLANKIORDEREDCMP,CBCD,CRP,SED,VITD,CCP,HEPBSAB,HEPBSAG,HEPC,CAROL,RF,HEPBCORE IGM,UA [id number] CAROL-DIRECT SeeNote (Normal) Comments: Result: Negative :48 ANTI-CCP 353074 4 {units} (Normal) Comments: DR DAVIS ORDERED [...] T PROT 6.9 g/dL (Normal) Range: 6.4-8.2 50-Yxk-88819:48 COMPLETE Comments: DR DAVIS ORDERED CMP,CBCMD,CAROL,RF,TSH,CRP,SED,CCP,LIPIDDR VELLANKIORDEREDCMP,CBCD,CRP,SED,VITD,CCP,HEPBSAB,HEPBSAG,HEPC,CAROL,RF,HEPBCORE [...] mm/h (Normal) Range: 0-30 :48 HB CORE [id number] SeeNote (Normal) Comments: DR DAVIS ORDERED CMP,CBCMD,CAROL,RF,TSH,CRP,SED,CCP,LIPIDDR VELLANKIORDEREDCMP,CBCD,CRP,SED,VITD,CCP,HEPBSAB,HEPBSAG,HEPC,CAROL,RF,HEPBCORE IGM,UA Comments: Result: Negative Performed At: [facility] [address] [place], [place] [id number] At: [facility] [address] [id number] :48 HBsAg Comments: DR DAVIS ORDERED CMP,CBCMD,CAROL,RF,TSH,CRP,SED,CCP,LIPIDDR [...] of antibody present. :48 HEP C AB 394261 0.1 (Normal) Comments: DR DAVIS ORDERED CMP,CBCMD,CAROL,RF,TSH,CRP,SED,CCP,LIPIDDR [...] VELLANKIORDEREDCMP,CBCD,CRP,SED,VITD,CCP,HEPBSAB,HEPBSAG,HEPC,CAROL,RF,HEPBCORE IGM,UA Range: 0.358-3.74 :48 VIT D,25 72965 18.0 ng/mL (Abnormal) Comments: DR DAVIS ORDERED CMP,CBCMD,CAROL,RF,TSH,CRP,SED,CCP,LIPIDDR VELLANKIORDEREDCMP,CBCD,CRP,SED,VITD,CCP,HEPBSAB,HEPBSAG,HEPC,CAROL,RF,HEPBCORE IGM,UA Range: 32.0-100.0 Comments: Recent studies consider the lower limit of 32.0 ng/mL to zoraida threshold for optimal health.Everardo HEREDIA. J Nutr. 2004;135(2):317-22. 0-Epz-638085:10 [facility]AT [facility] Radiology Report See Note (Normal) Comments: Exam Number: [id number] MAMMOGRAM, BILATERAL SCREENING DIGITAL AND CAD HISTORYRoutine [...] (MQSA). The mammograms werealso examined with c [employer]uter-aided detection software (Scint-X.). Reported By: DOMENICA GATES M.D. 8-Bnn-548458:09 SPINE,LUMBAR (ROUTINE) Radiology Report See Note (Normal) Comments: Exam Number: [id number] CLINICAL:68-year-old female with low back pain for [...] Report See Note (Normal) Comments: Exam Number: [id number] CLINICAL DATALow back pain, flank pain, right [...] disc disea se involving multiple levels from E4txlxbat S1. There is degenerative hypertrophic change of [...] Report See Note (Normal) Comments: Exam Number: [id number] DORSAL SPINE Three images of the dorsal [...] Culture,Comprehensive Comments: Clinical Information: SRC:UR PERFORMED BY: [facility] [facility] [id number] Result 1 NG36 (Normal) Comments: No growth in 36 - 48 hours. Urine Culture,Comprehensive Final report (Normal) :18 PELVIS WITHOUT IV CONTRAST Radiology Report See Note (Normal) Comments: Exam Number: [id number] CT SCANS OF ABDOMEN AND PELVIS HISTORYThe [...] Report See Note (Normal) Comments: Exam Number: [id number] CT SCANS OF ABDOMEN AND PELVIS HISTORYThe [...] the spine. Reported By: DOMENICA GATES M.D. 1-Xjb-723477:1 C-REACTIVE PROT 4.05 mg/L (Abnormal) Range: 0.0-3.0 0 Comments: C-Reactive Protein (CRP) provides useful information for thediagnosis, therapy and monitoring of inflammatory processesand associated diseases. For the evaluation of Relative Riskfor Cardiovascular Dise ase, a High Sensitivity CRP (HSCRP)should be ordered. 6-Gyh-963322:10 CBCD,SMEAR DIFF ATYPICAL LYMPH 1+ % (Normal) [...] 47-70 WBC 8.2 K/mm3 (Normal) Range: 4.4-11.0 0-Lej-443604:10 COMP METABOLIC A/G 1.4 {RATIO} (Normal) Range: [...] 6.4-8.2 GLU 84 mg/dL (Normal) Range: 70-110 3-Iqo-412266:10 ESR SED RATE 14 mm/h (Normal) Range: 0-30 2-Crl-078946:40 Urinalysis, Office (40467) UA - BILIRUBIN Negative (Normal) UA - BLOOD Non Hemolyzed Trace (Normal) UA - GLUCOSE Negative (Normal) UA - KETONES Negative mg/dL (Normal) UA - LEUKOCYTE ESTERASE Negative (Normal) Comments: aw UA - NITRITE Negative (Normal) UA - PH 6.0 (Normal) UA - PROTEIN Negative mg/dL (Normal) UA - SPECIFIC GRAVITY 1.010 (Normal) URINE UROBILINGN TUNDE TIMED Normal mg/dL (Normal) 8-Wzo-019996:28 URINE CESAR CULTURE-TUNDE COL Comments: PATIENT NOT FASTINGClinical Information: SRC:UR ADD [id number] PERFORMED BY: [facility] [facility] [id number] COUNT (60952) Result 1 MUG (Normal) Comments: Mixed urogenital flora10,000-25,000 colony forming units per mL Urine Final report (Normal) Culture,Comprehensive 6-Yxv-047605:09 Urinalysis, Office (12771) UA - BILIRUBIN Negative (Normal) UA - [...] mg/dL VLDL 16 mg/dL (Normal) Range: 5-40 6-Pwq-933966:59 LQD PAP [id number] Comments: CYTOLOGY INFORMATION:- CLINICAL INFORMATION: POSTMENOPAUSAL- DATE LMP/MENOPAUSE: MENOPAUSE- COLLECTION VIAL: Thin Prep Vial- COMPLAINT SUPERVISOR SOURCE: CERVICAL/ENDOCERVICAL- COLLECTION TECHNIQUE: BRUSH/SPATULA ADEQ Comment (Normal) Comments: Satisfactory for evaluation. Endocervical and/or squamous metaplasticcells (endocervical component) are present. COMM . (Normal) DIAGN Comment (Normal) Comments: NEGATIVE FOR INTRAEPITHELIAL LESION AND MALIGNANCY. HPV RFLX Comment (Normal) Comments: The HPV DNA reflex criteria were not met with this specimenresult therefore, no HPV testing was performed. .Performed At: [address] [id number] PAPSMR Comment (Normal) Comments: The Pap smear is a screening test designed to aid in thedetection of premalignant and malignant conditions of theuterine cervix. It is not a diagnostic procedure andshould not be used as the sole means of detecting cervicalcancer. Both false-positive and false-negative reports dooccur. . PERFORM Comment (Normal) Comments: Diandra Bee, Telecom Assistant (ASCP) 89-Xjy-029512:36 DEXA BONE DENSITY STUDY (HP) Radiology Report See Note (Normal) Comments: Exam Number: [id number] BONE DENSITOMETRY TECHNIQUE Bone densitometry of the [...] :55 TSH 2.13 {uIU/mL} (Normal) Range: 0.34-4.82 42-Pup-678386:12 C-REACTIVE PROT 5.51 mg/L (Normal) Range: 0.0-6.0 Comments: Test performed using the Dimension C-Reactive ProteinExtended Range assay method. This assay meets the AHA/CDC 2003 recommendations fordetermining patients at high risk for cardiovasculardisease. Reference: High risk CRP >3.0 mg/L :12 CBCD,SMEAR DIFF BAND 1 % (Normal) Range: [...] 47-70 WBC 6.2 K/mm3 (Normal) Range: 4.4-11.0 :12 COMP METABOLIC A/G 1.5 {RATIO} (Normal) Range: [...] T PROT 6.1 g/dL (Abnormal) Range: 6.4-8.2 38-Dgy-028733:12 FUNEZ A AB [id number] FUNEZ A TYPE 10 <1:8 (Normal) FUNEZ [...] and its performancecharacteristics have been determined by [facility]. Performance characteristics refer tothe analytical performance of the test. FUNEZ A TYPE 2 <1:8 (Normal) FUNEZ A TYPE 4 <1:8 (Normal) FUNEZ A TYPE 7 <1:8 (Normal) FUNEZ A TYPE 9 <1:8 (Normal) 34-Pvb-456658:12 ESR SED RATE 14 mm/h (Normal) Range: 0-30 44-Hhh-256576:12 RA LATEX 6502 7.1 {IU/mL} (Normal) Range: 0.0-13.9 Comments: Performed At: [facility] [address] [place], [place] [id number] At: [address] [place], [place] [id number] 95-Xmb-513103:12 TSH 0.16 {uIU/mL} (Abnormal) Range: 0.34-4.82 06-Jzq-047542:21 PELVIS WITH CONTRAST Radiology Report See Note (Normal) Comments: Exam Number: [id number] CT ABDOMEN AND PELVIS WITH CONTRAST. CLINICAL [...] pericardial effusion. Reported By: TODD KENNEDY M.D. 78-Lfz-972553:11 ABDOMEN WITH CONTRAST Radiology Report See Note (Normal) Comments: Exam Number: [id number] CT ABDOMEN AND PELVIS WITH CONTRAST. CLINICAL [...] pericardial effusion. Reported By: TODD KENNEDY M.D. 89-Sol-708457:38 MARCUS 45 U/L (Normal) Range: 25-115 51-Fwc-824390:38 CBCD,SMEAR DIFF BAND 1 % (Normal) Range: [...] 47-70 WBC 5.9 K/mm3 (Normal) Range: 4.4-11.0 77-Lzj-248330:38 LIPASE 190 U/L (Normal) Range: 114-286 49-Ivf-137941:45 BILAT SCRN DIGITAL & CAD Radiology Report See Note (Normal) Comments: Exam Number: [id number] MAMMOGRAM, BILATERAL SCREENING DIGITAL AND CAD HISTORYRoutine [...] werealso exam ined with computer-aided detection software ([employer], [employer], [employer] Reported By: DOMENICA GATES M.D. :33 CHEST W/WO CONTRAST Radiology Report See Note (Normal) Comments: Exam Number: [id number] CT SCAN OF CHEST HISTORYLung nodule. Consecutive [...] 47-70 WBC 4.2 K/mm3 (Abnormal) Range: 4.4-11.0 33-Wfz-59270:07 COMP METABOLIC A/G 1.5 {RATIO} (Normal) Range: [...] itching : [facility] [place] Indication: Vaginal itching Low Back Pain (Renamed [...] Indication: Chest pain Chest pain : Reviewed Cost Accounting Clerk Letter Indication: Chest pain Osteoarthritis, unspecified osteoarthritis [...] Hypercholesterolemia Planned Observations CBC W/AUTO DIFF WBC (14121)Indication: Prolonged QT interval On: 2-Knf-211983:18 Request METABOLIC PANEL, COMPREHENSIVE (45727)Indication: Prolonged QT interval On: 7-Fvl-479455:18 Request VITAMIN B-12 (CYANOCOBALAMIN) (20959)Indication: DEFICIENCY, B-COMPLEX NEC On: 1-Znq-624241:18 Request TSH (81585)Indication: Acquired hypothyroidism On: :17 Request LIPOPROTEIN, BLD, BY NMR (31013)Indication: Hypercholesterolemia On: :17 Request VITAMIN B-12 (CYANOCOBALAMIN) (46883)Indication: DEFICIENCY, B-COMPLEX NEC On: :18 Request LIPID PANEL (08372)Indication: Hypercholesterolemia On: :18 Request CBC W/AUTO DIFF WBC (40485)Indication: Right flank pain On: :17 Request METABOLIC PANEL, COMPREHENSIVE (05211)Indication: Right flank pain On: :17 Request Vitamin D Hydroxy (40318)Indication: Vitamin D deficiency, unspecified On: :17 Request Urinalysis, Office (73124)Indication: Urinary frequency On: 60-Duw-846194:22 Request VITAMIN B-12 (CYANOCOBALAMIN) (41951)Indication: Other vitamin B12 deficiency anemia On: :28 Request Comments: Lot:[id number]:04/29Dose:1mlRoute:IMSite:r arm Given By:TAVON signed Vitamin D Hydroxy (73610)Indication: Vitamin D deficiency, unspecified On: :42 Request LIPID PANEL (97103)Indication: Hypercholesterolemia On: :42 Request METABOLIC PANEL, COMPREHENSIVE (13246)Indication: Essential hypertension On: :36 Request TSH (69571)Indication: Acquired hypothyroidism On: :36 Request CBC with auto diff (71685)Indication: Abdominal pain, acute, right lower quadrant On: :06 Request METABOLIC PANEL, COMPREHENSIVE (80795)Indication: Abdominal pain, acute, right lower quadrant On: 0-Bpu-192669:06 Request Urinalysis, Office (53928)Indication: Low Back Pain (Renamed from LBP (low back pain)) On: 89-Hlv-438974:09 Request Vitamin D Hydroxy (30965)Indication: Vitamin D deficiency, unspecified On: 72-Ncr-129574:32 Request METABOLIC PANEL, COMPREHENSIVE (19388)Indication: Essential hypertension On: :31 Request LIPID PANEL (07580)Indication: Hypercholesterolemia On: :31 Request TSH (27248)Indication: Acquired hypothyroidism On: :31 Request LIPID PANEL (84628)Indication: Hypercholesterolemia On: :45 Request TSH (12036)Indication: Acquired hypothyroidism On: :44 Request METABOLIC PANEL, COMPREHENSIVE (75993)Indication: Essential hypertension On: :44 Request CBC, PLATELETS & AUT DIFF (21948)Indication: DEFICIENCY, B-COMPLEX NEC On: :43 Request VITAMIN B-12 (CYANOCOBALAMIN) (74419)Indication: DEFICIENCY, B-COMPLEX NEC On: :43 Request Vitamin D Hydroxy ([id number])Indication: Vitamin D deficiency, unspecified On: :43 Request IRON ([id number])Indication: Anemia On: 1-Ugj-348791:42 Request Vitamin D Hydroxy (84327)Indication: Vitamin D deficiency, unspecified On: 4-Asq-873328:36 Request VITAMIN B-12 (CYANOCOBALAMIN) ([id number])Indication: DEFICIENCY, B-COMPLEX NEC On: 7-Ibk-246642:35 Request CBC WITH MANUAL DIFF ([id number])Indication: DEFICIENCY, B-COMPLEX NEC On: 8-Hfc-599199:35 Request METABOLIC PANEL, COMPREHENSIVE (49540)Indication: Essential hypertension On: 1-Iag-901577:35 Request T3, FREE (TRIDOTHYRONINE) (52807)Indication: Acquired hypothyroidism On: 8-Aex-949874:35 Request T4, FREE (71799)Indication: Acquired hypothyroidism On: 7-Obh-866852:35 Request TSH ([id number])Indication: Acquired hypothyroidism On: 0-Amw-774060:34 Request TSH ([id number])Indication: Acquired hypothyroidism On: 26-Tpu-665854:23 Request Comments: recheck in 6 weeks Metabolic Panel, Basic (75320)Indication: Essential hypertension On: 61-Uyc-247487:16 Request TSH ([id number])Indication: Acquired hypothyroidism On: 55-Pfd-640308:22 Request C-REACTIVE PROTEIN (87910)Indication: right lower quadrant pain On: :51 Request SED RATE ERYTHROCYTE ([id number])Indication: right lower quadrant pain On: :51 Request Magnesium (79144)Indication: Leg cramps On: :43 Request CBC WITH MANUAL DIFF ([id number])Indication: Edema leg On: :42 Request LIPID PANEL (80176)Indication: Hypercholesterolemia On: :41 Request METABOLIC PANEL, COMPREHENSIVE (41883)Indication: Essential hypertension On: :41 Request VITAMIN B-12 (CYANOCOBALAMIN) (74343)Indication: Other vitamin B12 deficiency anemia On: :41 Request Vitamin D Hydroxy (46310)Indication: Vitamin D deficiency, unspecified On: :41 Request Metabolic Panel, Basic (46892)Indication: Acute renal failure, unspecified acute renal failure type On: :31 Request TSH ([id number])Indication: Acquired hypothyroidism On: 60-Vmd-304039:30 Request LIPID PANEL (44717)Indication: Hypercholesterolemia On: :39 Request Vitamin D Hydroxy (12566)Indication: Vitamin D deficiency, unspecified On: :39 Request VITAMIN B-12 (CYANOCOBALAMIN) (17995)Indication: Other vitamin B12 deficiency anemia On: :39 Request CBC WITH MANUAL DIFF ([id number])Indication: Other vitamin B12 deficiency anemia On: :39 Request METABOLIC PANEL, COMPREHENSIVE (15317)Indication: Essential hypertension On: 5-Zkc-974475:39 Request Vitamin D Hydroxy (97442)Indication: Vitamin D deficiency, unspecified On: :37 Request LIPID PANEL (17896)Indication: Hypercholesterolemia On: :37 Request TSH ([id number])Indication: Acquired hypothyroidism On: :37 Request CBC WITH MANUAL DIFF ([id number])Indication: Essential hypertension On: :39 Request METABOLIC PANEL, COMPREHENSIVE (61527)Indication: Essential hypertension On: 20-Jlh-429561:39 Request VITAMIN B-12 (CYANOCOBALAMIN) (02536)Indication: b12 deficiency On: 51-Xke-076237:39 Request LIPID PANEL ([id number])Indication: Hypercholesterolemia On: :39 Request Vitamin D Hydroxy (23478)Indication: Vitamin D deficiency, unspecified On: :32 Request VITAMIN B-12 (CYANOCOBALAMIN) (91787)Indication: b12 deficiency On: :32 Request Vitamin D Hydroxy (28029)Indication: Vitamin D deficiency, unspecified On: :32 Request METABOLIC PANEL, COMPREHENSIVE (59688)Indication: Essential hypertension On: :32 Request LIPID PANEL (12949)Indication: Hypercholesterolemia On: :32 Request TSH ([id number])Indication: Acquired hypothyroidism On: :32 Request CBC WITH MANUAL DIFF (08874)Indication: Essential hypertension On: :30 Request METABOLIC PANEL, COMPREHENSIVE (29539)Indication: Essential hypertension On: :29 Request VITAMIN B-12 (CYANOCOBALAMIN) (80146)Indication: DEFICIENCY, B-COMPLEX NEC On: :29 Request Vitamin D Hydroxy (90659)Indication: Vitamin D deficiency, unspecified On: :29 Request TSH ([id number])Indication: Acquired hypothyroidism On: :29 Request LIPID PANEL (33162)Indication: Hypercholesterolemia On: :29 Request Vitamin B-12 (cyanocobalamin) (07125)Indication: b12 deficiency On: 01-Vde-638818:01 Request CALCIFIDIOL (22402) VIT D 25Indication: Vitamin D deficiency, unspecified On: 89-Mgr-057091:00 Request TSH ([id number])Indication: Acquired hypothyroidism On: :34 Request LIPID PANEL (41747)Indication: Hypercholesterolemia On: :34 Request Metabolic Panel, Basic (89367)Indication: Essential hypertension On: :26 Request VITAMIN B-12 (CYANOCOBALAMIN) (83072)Indication: DEFICIENCY, B-COMPLEX NEC On: 44-Nux-460848:19 Request Vitamin D Hydroxy (28312)Indication: Vitamin D deficiency, unspecified On: 07-Rur-057470:19 Request VITAMIN D, 1, 25-DIHYDROXY (72378)Indication: Vitamin D deficiency, unspecified On: 7-Sgz-929255:19 Request Comments: Vit D [place] Vitamin B-12 (cyanocobalamin) (07919)Indication: b12 deficiency On: 0-Pzp-737407:17 Request CBC WITH MANUAL DIFF (54590)Indication: b12 deficiency On: 84-Edi-252889:17 Request VITAMIN B-12 (CYANOCOBALAMIN) (45035)Indication: b12 deficiency On: 35-Flp-916683:14 Request VITAMIN B-12 (CYANOCOBALAMIN) (32234)Indication: Vitiligo On: 88-Ass-176428:37 Request LIPID PANEL (08762)Indication: Hypercholesterolemia On: 52-Gna-044110:33 Request TSH (32613)Indication: Acquired hypothyroidism On: 60-Hoy-495833:32 Request Vitamin D Hydroxy (28232)Indication: Vitamin D deficiency, unspecified On: 17-Xwq-730085:31 Request METABOLIC PANEL, COMPREHENSIVE (78936)Indication: Essential hypertension On: 86-Mqn-463101:42 Request Vitamin D Hydroxy ([id number])Indication: Vitamin D deficiency, unspecified On: 62-Olt-850829:42 Request CAROL (ANTINUCLEAR ANTIBODY) ([id number])Indication: Pain in unspecified joint On: :27 Request C-REACTIVE PROTEIN ([id number])Indication: Pain in unspecified joint On: :27 Request CBC WITH MANUAL DIFF ([id number])Indication: Pain in unspecified joint On: :27 Request CCP ANTIBODY (21373)Indication: Pain in unspecified joint On: :27 Request METABOLIC PANEL, COMPREHENSIVE (34661)Indication: Pain in unspecified joint On: : Request RHEUMATOID FACTOR-QUANT (95802)Indication: Pain in unspecified joint On: : Request SED RATE ERYTHROCYTE (51294)Indication: Pain in unspecified joint On: :27 Request TSH ([id number])Indication: Pain in unspecified joint On: :27 Request SED RATE ERYTHROCYTE ([id number])Indication: flank pain On: :35 Request C-REACTIVE PROTEIN (76552)Indication: flank pain On: :35 Request METABOLIC PANEL, COMPREHENSIVE (37292)Indication: flank pain On: :35 Request CBC WITH MANUAL DIFF ([id number])Indication: flank pain On: :35 Request URINE CESAR CULTURE (TUNDE COL COUNT) (97248)Indication: flank pain On: :35 Request Thin prep Pap ([id number])Indication: Well woman exam with routine gynecological exam On: 6-Oqv-299571:09 Request CBC WITH MANUAL DIFF ([id number])Indication: Essential hypertension On: :02 Request METABOLIC PANEL, COMPREHENSIVE (35374)Indication: Essential hypertension On: 73-Bou-505183:02 Request LIPID PANEL (40936)Indication: Hypercholesterolemia On: :02 Request METABOLIC PANEL, COMPREHENSIVE (23895)Indication: Essential hypertension On: 35-Tuf-289232:18 Request TSH ([id number])Indication: Acquired hypothyroidism On: 21-Kgc-012746:18 Request SED RATE ERYTHROCYTE ([id number])Indication: Abdominal pain, acute, left upper quadrant On: 52-Bqh-908172:09 Request C-REACTIVE PROTEIN (69953)Indication: Abdominal pain, acute, left upper quadrant On: 64-Alq-151803:09 Request CBC WITH MANUAL DIFF (68051)Indication: edema On: 48-Etk-185891:09 Request METABOLIC PANEL, COMPREHENSIVE ([id number])Indication: edema On: 26-Emg-274956:09 Request TSH ([id number])Indication: Acquired hypothyroidism On: 02-Yxw-395659:03 Request CBC WITH MANUAL DIFF ([id number])Indication: Abdominal pain, acute, left upper quadrant On: 34-Hnv-006180:22 Request Lipase (35558)Indication: Abdominal pain, acute, left upper quadrant On: 04-Qcb-766378:22 Request Amylase (19702)Indication: Abdominal pain, acute, left upper quadrant On: 39-Dno-336884:21 Request Thin prep Pap ([id number])Indication: Well woman exam with routine gynecological exam On: 33-Ivj-633061:43 Request HEPATIC FUNCTION PANEL ([id number])Indication: Hypercholesterolemia On: 19-Wzx-708420:52 Request LIPID PANEL ([id number])Indication: Hypercholesterolemia On: 49-Vfj-289489:52 Request CBC, PLATELETS & AUTO DIFF ([id number])Indication: Leukopenia On: 70-Bzn-625935:34 Request Planned Encounters Medical; MDMEDINAP 6 Month Fu - On: 03-Jul-2018 13:00 [facility] Fast DO, Kristine A Fast DO, Kristine A Planned Procedures DEXA SCAN AXIAL SKELETON ([id number])By: On: 02-Jan-2018 Intent Fast DO, Kristine A Fast DO, Kristine A Comments: mar - RenalBy: Fast DO, On: 02-Jan-2018 Intent Kristine A Fast DO, Kristine A Flu Vaccine (Quadrivalent) 54191Hg: On: 02-Jan-2018 Intent Fast DO, Kristine A Fast DO, Kristine A Comments: Lot #[id number]-5/30/2019Site-L dltd, IMDose prefilled syringegiven by: Melly reviewed and ABN signed ELECTROCARDIOGRAM, COMPLETE (ECG) On: 28-Aug-2017 Intent (73030)By: Fast DO, Kristine A Fast Comments: ekg showed normal sinus rhythym, normal axis, no acute st/t wave changes DO, Kristine A SCREENING DIGITAL TOMOSYNTHESIS OF On: 28-Aug-2017 Intent BREAST ([id number])By: Fast DO, Kristine A Fast DO, Kristine A B 12 Injection, 1000 mcg (J3420)By: On: 15-Mar-2017 Intent Visit, Nurse Comments: [id number]/ANOOP Almodovar B 12 Injection, 1000 mcg (J3420)By: On: 22-Feb-2017 Intent Fast DO, Kristine A Fast DO, Kristine A Comments: lot: [id number]: 05/01site/route: L del/IMamt: 1mLVIS signed when applicableRAYMUNDO Huerta Flu Vaccine (Quadrivalent) 65639Yd: On: 17-Jan-2017 Intent Fast DO, Kristine A Fast DO, Kristine A Comments: Lot #:[id number] date: 08/28/17Amount given: 0.5mlRoute: IMSite given: left deltoidGiven by: Jpatterson, MA B 12 Injection, 1000 mcg (J3420)By: On: 17-Jan-2017 Intent Fast DO, Kristine A Fast DO, Kristine A Comments: Lot #:[id number] date:04/2018Amount given: 1mlRoute: IMSite given: right deltoidGiven by: AYAD Dailey B 12 Injection, 1000 mcg (J3420)By: On: 12-Dec-2016 Intent Visit, Nurse Comments: 12523/2018R arm, IM1ml, 1000mcgML, SUMAC TANNER B 12 Injection, 1000 mcg (J3420)By: On: [...] Kristine A Fast DO, Kristine A Comments: B12lot:[id number]:ite:lt deltroute:Imdose:1mlD.AYAD Jerez B 12 Injection, 1000 mcg (J3420)By: On: 19-Jul-2016 Intent Fast DO, Kristine A Fast DO, Kristine A Comments: lot: [id number]: 18site/route: L del/IMamt: 1mlVIS signed when applicableRAYMUNDO Huerta B 12 Injection, 1000 mcg (J3420)By: On: 16-Jun-2016 Intent Fast DO, Kristine A Fast DO, Kristine A Comments: B12lot:6191exp:18site:lt deltroute:IMdose:1mlD.AYAD Jerez B 12 Injection, 1000 mcg (J3420)By: On: 02-May-2016 Intent Visit, Nurse Comments: 1 ml given rt arm lot [id number] exp 07/28 B 12 Injection, 1000 mcg (J3420)By: On: 05-Apr-2016 Intent Fast DO, Kristine A Fast DO, Kristine A Comments: Lot:[id number]:4/18Dose:1mlRoute:IMSite:l armGiven By:TAVON signed B 12 Injection, 1000 mcg (J3420)By: On: 04-Apr-2016 Intent Fast DO, Kristine A Fast DO, Kristine A Comments: Lot:[id number]:06/28Dose:1mlRoute:IMSite:l armGiven By:TAVON signed DEXA SCAN AXIAL SKELETON (47406)By: On: 04-Apr-2016 Intent Fast DO, Kristine A Fast DO, Kristine A MRI LUMBAR SPINE W/O CONTRAST On: 04-Apr-2016 Intent ([id number])By: Fast DO, Kristine A Fast DO, Kristine [...] A ELECTROCARDIOGRAM, COMPLETE (ECG) On: 11-Dec-2015 Intent (80416)By: Fast DO, Kristine A Fast Comments: ekg showed normal sinus rhythym, normal axis, no acute st/t wave changes DO, Kristine A B 12 Injection, 1000 mcg (J3420)By: On: 11-Dec-2015 Intent Hunter Jerez Comments: B12lot:6185exp:18site:lt deltroute:IMdose:1mlD.AYAD Jerez B 12 Injection, 1000 mcg (J3420)By: On: 05-Nov-2015 Intent Hunter Jerez Comments: B12lot:6155exp:18site:lt deltroute:ImDose:1mlD.AYAD Jerez B 12 Injection, 1000 mcg (J3420)By: On: 05-Oct-2015 Intent Fast DO, Kristine A Fast DO, Kristnie A Comments: Lot:[id number]:07/28Dose:1mlRoute:IMSite:l armGiven By:TAVON signed B [...] A Fast DO, Kristine A Comments: B12lot:5200exp:07/27site:lt deltroute:IMdose:1mlDJOSHUAAYAD B 12 Injection, 1000 mcg (J3420)By: On: 11-May-2015 Intent Fast DO, Kristine A Fast DO, Kristine A Comments: Lot:[id number]:11/27Dose:1mlRoute:IMSite:l armGiven By:TAVON signed MAMMOGRAM, SCREENING, BOTH BREAST On: 21-Apr-2015 Intent ([id number])By: Fast DO, Kristine A Fast DO, Kristine A B 12 Injection, 1000 mcg (J3420)By: On: 21-Apr-2015 Intent Fast DO, Kristine A Fast DO, Kristine A Comments: Lot:[id number]:11/27Dose:1mlRoute:IMSite:r arm Given By:TAVON signed B 12 Injection, 1000 mcg (J3420)By: On: 16-Mar-2015 Intent Fast DO, Kristine A Fast DO, Kristine A Comments: lot: [id number]: 06/27site/route: L del/IMamt: 1mLVIS signed when applicableRAYMUNDO Pichardo B 12 Injection, 1000 mcg (J3420)By: On: 09-Feb-2015 Intent Fast DO, Kristine A Fast DO, Kristine A Comments: B12lot:[id number]:06/27site:lt deltoidroute:IMdose:1mlDEMICK, SMA B 12 Injection, 1000 mcg (J3420)By: On: 15-Jan-2015 Intent Hunter Jerez Comments: B 12Lot:[id number]:317site:lt deltoidroute:IMdose:.5mlDEMICK, SMA B 12 Injection, 1000 mcg (J3420)By: On: 10-Dec-2014 Intent Fast DO, Kristine A Fast DO, Kristine A Comments: lot [id number] - see ANOOP Mcallister CT - Abdomen & Pelvis (IV Contrast On: 16-Sep-2014 Intent Needed)By: Fast DO, Kristine A Fast DO, Kristine A B 12 Injection, 1000 mcg (J3420)By: On: 16-Sep-2014 Intent Fast DO, Kristine A Fast DO, Kristine A Comments: Lot:[id number]:11.16Route:IMSite:R deltoidDose: 1 mLgiven by: Carlita Ariza CMA [...] 1,000 mcgSite: l dltdLocation; IMby: Prevnar 13 (40139)By: Fast DO, On: 24-Mar-2014 Intent Kristine A Fast DO, Kristine A Comments: lot: [id number]: 3/16site/route: L del/IMamt: 0.5mLVIS signed when applicableChelsea, [facility] Ultrasound - PelvisBy: Fast DO, On: 24-Mar-2014 Intent Kristine A Fast DO, Kristine A B 12 Injection, 1000 mcg (J3420)By: On: 24-Mar-2014 Intent Fast DO, Kristine A Fast DO, Kristine A Comments: lot: [id number]: 4/16site/route: R del/IMamt:1mlVIS signed when applicableHillburn [facility] B 12 Injection, 1000 mcg (J3420)By: On: 24-Feb-2014 Intent Silvia Burton LPN Comments: lot: [id number]: 4.16Dose: 1,000 mcgSite: l dltdLocation; IMby: B 12 Injection, 1000 mcg (J3420)By: On: 22-Jan-2014 Intent Fast DO, Kristine A Fast DO, Kristine A Comments: lot [id number] 08/2015location L armroute imgiven by - msmith VIS and/or ABN signed B 12 Injection, 1000 mcg (J3420)By: On: 30-Dec-2013 Intent Fast DO, Kristine A Fast DO, Kristine A Comments: lot [id number] 05/2015location L armroute imgiven by - msmithVIS [...] Fast Comments: today DO, Kristine A EKG (19405)By: Fast DO, Kristine A On: 05-Nov-2013 Intent Fast DO, Kristine A Comments: ekg showed normal sinus rhythym, normal axis, no acute st/t wave changes B 12 Injection, 1000 mcg (J3420)By: On: 05-Nov-2013 Intent Fast DO, Kristine A Fast DO, Kristine A Comments: Lot:[id number]:11/24Dose:1mlRoute:IMSite:en[place] By:TAVON signed PHYSICAL THERAPY EVALUATION On: 18-Oct-2013 Intent (44665)By: Aquiles Potts CNP SPECIMEN HANDLING/TRANSPORT On: 18-Oct-2013 Intent (72231)By: Aquiles Potts CNP B 12 Injection, 1000 mcg (J3420)By: On: 11-Oct-2013 Intent Aquiles Potts CNP Comments: Lot:[id number]:11/2013Dose:1mlRoute:IMSite:en[place] By:TAVON signed B 12 Injection, 1000 mcg (J3420)By: On: 18-Sep-2013 Intent Fast DO, Kristine A Fast DO, Kristine A B 12 Injection, 1000 mcg (J3420)By: On: 07-Aug-2013 Intent Fast DO, Kristine A Fast DO, Kristine A Comments: lot: [id number]: ite/route: L del/IMamt: 1mLVIS signed when applicableChelsea, [employer] MAMMOGRAM, SCREENING, BOTH BREASTS On: 24-Jun-2013 Intent (95727)By: Fast DO, Kristine A Fast DO, Kristine A B 12 Injection, 1000 mcg (J3420)By: On: 24-Jun-2013 Intent Fast DO, Kristine A Fast DO, Kristine A Comments: Lot:[id number]:04/28Dose:1mlRoute:IMSite:enoch Martinezkandace By:TAVON signed B 12 Injection, 1000 mcg (J3420)By: On: 15-May-2013 Intent Visit, Nurse Comments: Lot:[id number]:01/25Dose:1mlRoute:IMSite:enoch Martinezkandace By:TAVON signed B 12 Injection, 1000 mcg (J3420)By: On: 22-Apr-2013 Intent Fast DO, Kristine A Fast DO, Kristine A Comments: lot: [id number]: 01/25site/route: L deltoid/IMamt: 1mLVIS signed when applicableChelsea, [employer] B 12 Injection, 1000 mcg (J3420)By: On: 21-Mar-2013 Intent Fast DO, Kristine A Fast DO, Kristine A Comments: see flowsheetMegan PNEUM VAC ADLT/IMUMNOSPR, SBC/INTRM On: 18-Feb-2013 Intent (95564)By: Fast DO, Kristine A Fast Comments: Lot: [id number]: 48Ihb06Njp: 0.5mlRoute: IMSite: L deltoidGiven by: ANOOP Moralez DO, Kristine A ADMINISTRATION OF PNEUMOCOCCAL On: 18-Feb-2013 Intent VACCINE (G0009)By: Fast DO, Kristine A Fast DO, Kristine A Eprescribed prescriptions On: 18-Feb-2013 Intent (G8553)By: Deanna Michelle B 12 Injection, 1000 mcg (J3420)By: On: 02-Jan-2013 Intent Deanna Michelle Comments: lot: [id number]: 10/25site/route: L deltoid/IMamt: 1mLVIS signed when applicableChelsea, [employer] B 12 Injection, 1000 mcg (J3420)By: On: [...] 08/24site/route: R deltoid/IMamt: 1mLVIS signed when applicableChelsea, [employer] B 12 Injection, 1000 mcg (J3420)By: On: 28-Aug-2012 Intent Fast DO, Kristine A Fast DO, Kristine A Comments: Lot #:[id number] date:mount given:1mlRoute: IMSite given: left deltoidGiven by: AYAD Dailey B 12 Injection, 1000 mcg (J3420)By: On: 23-Jul-2012 Intent Fast DO, Kristine A Fast DO, Kristine A Comments: Lot: [id number]: 02/23Amt: 1000mcg/1mlRoute: IMSite: L Deltoid per pt [...] A Fast DO, Kristine A Comments: lot: [id number]:02/23site/route: L deltoid/IMamt: 1ccVIS signed when applicableChelsea, [employer] B 12 Injection, 1000 mcg (J3420)By: On: 09-May-2012 Intent Kylee Castellon Comments: Lot:[id number]:02/2014Dose:1mlRoute:IMSite:L armGiven By:Jameson signed VENOUS DOPPLER LOWER EXTREMITY On: 18-Apr-2012 Intent (38562)By: Fast DO, Kristine A Fast DO, Kristine A Radiology - Hip - RightBy: Fast DO, On: 06-Apr-2012 Intent Kristine A Fast DO, Kristine A Comments: call results B 12 Injection, 1000 mcg (J3420)By: On: 06-Apr-2012 Intent Lisandra Chilel Comments: Lot #[id number]-09/14Site-left deltoidDose-1 mlgiven by: Omkar Rivera LPN Eprescribed prescriptions On: 06-Apr-2012 Intent (G8553)By: Lisandra Chilel Inhaler Demo (07053)By: Fast DO, On: 06-Feb-2012 Intent Kristine A Fast DO, Kristine A B 12 Injection, 1000 mcg (J3420)By: On: 06-Feb-2012 Intent Kylee Castellon Comments: Lot:[id number]:Dose:1mlRoute:IMSite:L armGiven By:TAVON signed MAMMOGRAM, SCREENING, BOTH BREASTS On: 06-Feb-2012 Intent (82669)By: Fast DO, Kristine A Fast DO, Kristine [...] Coverage Instructions Apply. See CIM: 45-4 and [facility]: 2049) (J3420)By: Licha Almaguer LPN Breast Ultrasound - LeftBy: Ciesa On: 22-Jun-2011 Intent Aquiles DEWEY B 12 Injection, 1000 mcg (J3420)By: On: 22-Jun-2011 Intent Ciesa PEWTER FINISHER Judy Comments: Lot #[id number]-01/23Site-right deltoidDose-1 mlgiven by: Omkar Rivera LPN Breast Ultrasound - LeftBy: esa On: 22-Jun-2011 Intent Aquiles DEWEY Comments: today if possible Breast Diagnostic - LeftBy: Ciesa On: 22-Jun-2011 Intent ZULEIMA Aquiles Vasquez Comments: today if possible B 12 Injection, 1000 mcg (J3420)By: On: 09-May-2011 Intent Mast Phyllis MUELLER Comments: Lot #: [id number] Expiration date: 10/23Amount given: 1 mlRoute: IMSite given: left deltoidGiven by: AMI Alcarazwood engraver - Cervical SpineBy: Fast On: 13-Apr-2011 Intent DO, Kristine A Fast DO, Kristine A TD Injection , IM (32166)By: On: 13-Apr-2011 Intent Lisandra Chilel Comments: received in 2005 B 12 Injection, 1000 mcg (J3420)By: On: 29-Mar-2011 Intent Kateryna Lunsford MD Comments: Lot #[id number]-8.13Site-Left arm, IMDose 0.5mlgiven by:Татьяна B 12 Injection, 1000 mcg (J3420)By: On: 08-Feb-2011 Intent Татьяна Vera LPN Comments: Lot [id number]#Exp-7.13Site-R arm, IMDose 1mlgiven by:Татьяна DXA, BONE DENSITY, AXIAL SKELETON On: 24-Jan-2011 Intent (33610)By: Lisandra Chilel Comments: post menopausal wihtout estrogen FLU VAC, SPLIT, >3 YEARS, INTRAMUSC On: 24-Jan-2011 Intent (10411)By: Lisandra Chilel Comments: received at [facility] B 12 Injection, 1000 mcg (J3420)By: On: 21-Dec-2010 Intent Licha Almaguer LPN INJECTION, VITAMIN B-12 On: 19-Nov-2010 Intent CYANOCOBALAMIN, UP TO 1000 MCG Comments: Lot:[id number]:04/25Amt:1mlRoute:IMSite:left deltGiven By: ANOOP Sotelo (Special Coverage Instructions Apply. See CIM: 45-4 and MCM: 2049) (J3420)By: Vi Ramirez EKG (66712)By: Lisandra Chilel On: 05-Nov-2010 Intent Comments: ekg showed normal sinus rhythym, normal axis, no acute st/t wave changes MAMMOGRAM, SCREENING, BOTH BREASTS On: 05-Nov-2010 Intent (78436)By: Fast DO, Kristine A Fast DO, Kristine [...] 03-Jun-2010 Intent Yasmeen Rivera LPN Comments: Lot #[id number]-left deltoidDose-1 mlgiven by:PRICE IMMUNIZ ADMNIN, 1 VAC, SNGL/COMBO On: 19-Apr-2010 Intent (10380)By: Yasmeen Rivera LPN Comments: Lot #[id number]-6/19/12Site-left deltoidDose- 0.85mlgiven by:PRICE ZOSTER VACC, [place] ([id number])By: Miguel On: 19-Apr-2010 Intent Yasmeen DAVALOS B 12 Injection, 1000 mcg (J3420)By: On: 19-Apr-2010 Intent Yasmeen Rivera LPN B 12 Injection, 1000 mcg (J3420)By: On: 22-Mar-2010 Intent Chuy DAVALOS Татьяна Wong Comments: Lot #[id number]-12Site-L arm, IMDose 1mlgiven by:Yasmeen MALDONADO, VITAMIN B-12 On: 25-Feb-2010 Intent CYANOCOBALAMIN, UP TO 1000 MCG Comments: injection given in left deltoid. Lot # [id number] 10/22. 1ml. Pt tolerated well. hh (Special Coverage Instructions Apply. See CIM: 45-4 and MCM: 2049) (J3420)By: Shania Rosario B 12 Injection, 1000 mcg (J3420)By: On: 25-Jan-2010 Intent Yasmeen Rivera LPN Comments: Lot #[id number]-07/22Site-left deltoidDose-1 mlgiven by:[facility] FLU VAC, SPLIT, >3 YEARS, INTRAMUSC On: 30-Dec-2009 Intent (46220)By: Lisandra Chilel Comments: Lot #[id number]-3/11Site-left deltoidgiven by:[facility] B 12 Injection, 1000 mcg (J3420)By: On: 30-Dec-2009 Intent Lisandra Chilel Comments: Lot #[id number]-12Site-right deltoidDose-1 mlgiven by:PRICE Renal Duplex ScanBy: Fast DO, Kristine On: 30-Dec-2009 Intent A Fast DO, Kristine A IMMUNIZ ADMNIN, 1 VAC, SNGL/COMBO On: 30-Dec-2009 Intent ([id number])By: Lisandra Chilel B 12 Injection, 1000 mcg (J3420)By: On: 14-Dec-2009 Intent Shayna Harris Comments: Lot:[id number]:07/22Dose:1000mcg/1mlRoute:IMSite:right deltoid Given by: AYAD Gil B 12 Injection, 1000 mcg (J3420)By: On: 26-Nov-2009 Intent Mast Phyllis MUELLER Comments: documented in flowsheet B 12 Injection, 1000 mcg (J3420)By: On: 19-Oct-2009 Intent Yasmeen Rivera LPN Comments: Lot #[id number]-04/24Site-left deltoidDose-1 mlgiven by:[facility] B 12 Injection, 1000 mcg (J3420)By: On: 13-Oct-2009 Intent Shayna Harris Comments: Lot:[id number]:04/24Dose:1000mcg/1mlRoute:imSite:right sideGiven by: AYAD Gil B 12 Injection, 1000 mcg (J3420)By: On: 06-Oct-2009 Intent Fast DO, Kristine A Fast DO, Kristine A Comments: Lot #[id number]-04/24Site-right deltoidDose- 1 mlgiven by:[facility] MRI - BrainBy: Fast DO, Kristine [...] do this week and call ressults EKG (61103)By: Fast DO, Kristine A On: 17-Dec-2008 Intent Fast DO, Kristine A Comments: ekg showed normal sinus rhythym, normal axis, no acute st/t wave changes MAMMOGRAM, SCREENING, BOTH BREASTS On: 17-Dec-2008 Intent ([id number])By: Fast DO, Kristine A Fast DO, Kristine A MRI - Lumbar SpineBy: Fast DO, On: 17-Dec-2008 Intent Kristine A Fast DO, Kristine A FLU VAC, SPLIT, >3 YEARS, INTRAMUSC On: 17-Dec-2008 Intent ([id number])By: Lisandra Chilel Comments: Lot #:[id number] date:mount given:0.5mlRoute: IMSite given:left deltoidGiven by: AYAD Dailey ADMINISTRATION OF INFLUENZA VIRUS On: 17-Dec-2008 Intent VACCINE ([id number])By: Lisandra Chilel CT - Abdomen & Pelvis Stone On: 18-Aug-2008 Intent ProtocolBy: Kristine Davis DO A Antwan Comments: stat -call results Cuauhtemoc MIXa A Radiology - Chest- PA and LatBy: On: 24-Mar-2008 Intent Antwan MIX Kristine A Antwan DO, Kristine A Spirometry ([id number])By: Antwan MIX, On: 24-Mar-2008 Intent Kristinerafi Davis DO, Kristine A Comments: good effort and curve minimal decrease small airways ADMINISTRATION OF PNEUMOCOCCAL On: 17-Dec-2007 Intent VACCINE ([id number])By: Cuauhtemoc Davis DOa A Antwan MIX Kristine A PNEUM VAC ADLT/IMUMNOSPR, SBC/INTRM On: 18-Dec-2007 Intent ([id number])By: Kristine Davis DO A Antwan Comments: Lot #:[id number] date:08/19Amount given:0.5mlRoute: IMSite given:left deltGiven by: AYAD Dailey DO, Kristine A MAMMOGRAM, SCREENING, BOTH BREASTS On: 17-Dec-2007 Intent ([id number])By: Kristine Davis DO A Antwan Comments: end of feb DO, Kristine A DXA, BONE DENSITY, AXIAL SKELETON On: 31-Oct-2007 Intent ([id number])By: Kristine Davis DO A Antwan DO Kristine A Echo CompleteBy: Antwan DO, Kristine A On: 25-Jul-2007 Intent Antwan MIX Kristine A Bio Z ([id number])By: Antwan MIX Kristine A On: 25-Jul-2007 Intent Antwan DO Kristine A Comments: good cardiac output and no excesive gfluid EKG ([id number])By: Antwan DO Kristine A On: 25-Jul-2007 Intent Antwan DO, Kristine A Comments: ekg showed normal sinus rhythym, normal axis, no acute st/t wave changes CT - Abdomen & Pelvis (IV Contrast On: 11-Jul-2007 Intent Needed)By: Adrianna Morgan DO MAMMOGRAM, SCREENING, BOTH BREASTS On: 27-Mar-2006 Intent ([id number])By: Adrianna Morgan DO Planned Medications Vitamin B-12 1000 MCG/ML Injection Solution Ordered: 30-Dec-2009 Pending Flinner, Lisandra Vitamin B-12 1000 MCG/ML Injection Solution Ordered: [...] MCG/ML Injection Solution Ordered: 22-Apr-2014 Pending Slarb SUMAC TANNER, Silvia Vitamin B-12 1000 MCG/ML Injection Solution Ordered: 24-Mar-2014 Pending Fast DO, Kristine A Fast DO, Kristine A Vitamin B-12 1000 MCG/ML Injection Solution Ordered: 24-Feb-2014 Pending Slarb SUMAC TANNER, Silvia Vitamin B-12 1000 MCG/ML Injection Solution [...] MCG/ML Injection Solution Ordered: 11-Dec-2015 Pending Emick, Hunter Vitamin B-12 1000 MCG/ML Injection Solution Ordered: 05-Nov-2015 Pending Emick, Hunter Vitamin B-12 1000 MCG/ML Injection Solution Ordered: 05-Oct-2015 Pending Fast DO, Kristine A Fast DO, Kristine A Vitamin B-12 1000 MCG/ML Injection Solution Ordered: 05-Nov-2013 Pending Fast DO, Kristine A Fast DO, Kristine A Vitamin B-12 1000 MCG/ML Injection Solution Ordered: 11-Oct-2013 Pending Delroy DEWEY Judy Vitamin B-12 1000 MCG/ML Injection Solution [...] 1000 MCG/ML Injection Solution Ordered: 21-Dec-2010 Pending Tk Almaguer LPNsie Vitamin B-12 1000 [...] MCG/ML Injection Solution Ordered: 03-Jun-2010 Pending Radhauskelly LIANGN, Yasmeen Vitamin B-12 1000 MCG/ML Injection Solution Ordered: 19-Apr-2010 Pending Hluszgerardo LIANGN, Yasmeen Vitamin B-12 1000 MCG/ML Injection Solution Ordered: 22-Mar-2010 Pending Mike Vera LPNn L Vitamin B-12 1000 MCG/ML Injection Solution Ordered: 25-Feb-2010 Pending Shania Rosario Vitamin B-12 1000 MCG/ML Injection Solution Ordered: 25-Jan-2010 Pending Miguel LIANGN, Yasmeen Vitamin B-12 1000 MCG/ML Injection Solution Ordered: 29-Jul-2011 Pending Tripp DAVALOS Licha Vitamin B-12 1000 MCG/ML Injection Solution Ordered: [...] / tylenol and - more mobile on ic days- cleo notices a difference Encounter Diagnosis: [...] went well- she saw Dr Mckeon in [facility] for pain management - had inje ction [...] symptoms. Note for Discuss procedure results: Saw Joel End: 05-May-2016 21:15 r Jesus(ortho) he said [...] emotional problems . Note for Physical exam: MDMEDINAP Wellness Physical- her hip bursitis better can [...] do a lot of walking Encounter Diagnosis: SANDE[facility] Physical, Nonsmoker, BMI 37.0-37.9, adult, Hip [...] End: 10-Dec-2014 21:34 /19/15 at [facility] with dr Mahesh stokes) . There have been no problems with general anesthesia or blood/blood products. Prosthetics include: dentures (partial). Note for Preoperative evaluation: Lef t tka at [facility] on dec 29- Dr Stokes- having [...] scleroderma, leukopenia). Note for Follow up for space control agent tim medical issues: Pt had colonoscopy done [...] scleroderma, leukopenia). Note for Follow up for space control agent tim medical issues: No routine labs done [...] scleroderma, leukopenia). Note for Follow up for space control agent tim medical issues: still having right lateral [...] scleroderma, leukopenia). Note for Follow up for space control agent tim medical issues: sdhe is losing weight [...] scleroderma, leukopenia). Note for Follow up for space control agent tim medical issues: feels well other than [...] scleroderma, leukopenia). Note for Follow up for space control agent tim medical issues: No routine labs done [...] discharge or vomiting. Note for Flank pain: yany is new sx- started monday- hasnt been [...] the rare occ that she takes at [facility] but doesnt know accuracy, [ADDITIONAL REASON] [...]
--- OUTSIDE RECORDS SUMMARY | 2018-06-01 23:40 | XMS RPT_ITS | Continuity of Care Document ---
:1940 Author Organization [facility] Address [address] [facility] [address] [place] [address] Phone Care Team Providers Name Role Phone [...] DO, Kristine A Start : 02-Mar-2016 Active Comments[facility] report#[id number], df approved and given to pt-jf 03/02/16 Imipramine HCl 25 MG Oral Tablet 1 (one) Tablet qhs prn for 0 days Quantity: 30 {Tablet} Refills: 1 Ordered:14-Jul-2017 Fast DO, Kristine AFast DO, Kristine A Start : 14-Jul-2017 Active Comments:verbally called to [facility] - cmanchak 5/4 Leg Cramps 7 to [...] 90 days Quantity: 90 {Capsule} Refills: 1 Ordered:18-Aug-2017 Kateryna Lunsford MD Start : 18-Aug-2017 Active Tumeric 800mg bid Active UBIQUINOL, 100MG (Oral Capsule) 1 cap daily (100 MG) Active Vitamin D3 57938 UNIT Oral Capsule 1 (one) Capsule once a week for 90 days Quantity: 12 {Capsule} Refills: 3 Ordered:02-Jan-2018 Fast DO, Kristine AFast DO, Kristine [...] days Quantity: 20 {Tablet} Refills: 0 Ordered:04-May-2016 Fast DO, Kristine AFast DO, Kristine A Start : 04-May-2016 End [...] days Quantity: 14 {Tablet} Refills: 0 Ordered:25-Nov-2013 Cuauhtemoc Davis DOa Lamar DO, Kristine A Start : 08-Nov-2013 End [...] Quantity: 180 {Capsule} Refills: 3 Ordered:10-Apr-2006 Phyllis Escboar RN Start : 10-Apr-2006 End : 25-Jul-2007 [...] : 11-Jul-2007 End : 08-Aug-2007 Discontinued Drisdol 73898 UNIT Oral Capsule 1 (one) Capsule once [...] days Refills: 0 Ordered:17-Dec-2007 Antwan MIX, Kristine AFjuana DO, Kristine A Start : 17-Dec-2007 End : 17-Dec-2007 Discontinued SYNTHROID, 150MCG (Oral Tablet) 1 QD Tablet 2 Monday for 0 days Refills: 0 Ordered:15-Jun-2006 Mast AMIPhyllis Start : 30-Jan-2006 End : 15-Jun-2006 Discontinued VAGIFEM, 25MCG (Vaginal Tablet) 1 2 times per week for 0 days Refills: 0 Ordered:13-Aug-2007 Lisandra Chilel End : 08-Aug-2007 Discontinued VITAMIN D, 11988MQVE (Oral Capsule) 1 cap q week (29471 UNIT) Start : 27-Mar-2013 End : 27-Mar-2013 Discontinued Comments:This order discontinued per [employer]. VITAMIN D, 66255DLWY (Oral Capsule) 1 cap Capsule q week for 90 days Quantity: 12 {Capsule} Refills: 0 Ordered:27-Mar-2013 Lisandra Chilel Start : 27-Mar-2013 End : 27-Mar-2013 Discontinued Comments:This order discontinued per [employer]. VITAMIN D3, 2000UNIT (Oral Capsule) 1 Capsule qd for 0 days Quantity: 30 {Capsule} Refills: 0 Ordered:13-Nov-2012 Kristine Davis DO, DO, Kristine A Start : 13-Nov-2012 End [...] and Bladder Result: Comments: See Note; NOTES: [facility] Imaging Services [address] [place] [address] Kidney and Bladder MR#: [id number] Acct: [id number] Name: VIRGINIA URRUTIA Rep #: [id number] : 1940 F 77 From: Doug Sinclair DO PCP: Kristine Davis DO Status: REG CLI Study: Kidney and Bladder Date of Exam: 01/11/18 Exam# [id number] Ordering Dr: Kristine Davis DO STUDY: RENAL [...] Doug Sinclair DO at 23:00 EDT Tel [phone], Service support , CC: Kristine Davis DO Operations Research Group Manager: Signed 11-Jan-2018 Kidney and Bladder Result: Comments: See Note; NOTES: [facility] Imaging Services [address] [place] [address] Kidney and Bladder MR#: [id number] Acct: [id number] Name: VIRGINIA URRUTIA Rep #: [id number] : 1940 F 77 From: Doug Sinclair DO PCP: Kristine Davis DO Status: REG CLI Study: Kidney and Bladder Date of Exam: 01/11/18 Exam# [id number] Ordering Dr: Kristine Davis DO ADDENDUM by Doug Sinclair DO on at 1954 ADDENDUM ADDENDUM: Comparison is made with October 07, 2013 renal ultrasound. The right re na l cystic lesions appear stable. New left renal cyst. Findings in the urinary bladder are new since the previous study. Electronically Signed: Doug Sinclair DO at 19:55 EST Tel [phone], [employer] support , 01/22/181954 Date cc: Kristine Davis [...] Doug Sinclair DO at 23:00 EDT Tel [phone], Service support 1- [phone], CC: Kristine Davis DO Operations Research Group Manager: Signed 05-Oct-2017 TXT - Blood Flow Screening Result: Comments: See Note; NOTES: [facility] Cardiovascular Services [address] [place] [address] 10/02/17 0928 MR#: [id number] Acct: [id number] Name: VIRGINIA URRUTIA Rep #: [id number] [...] Date Dictated: 10/02/17 0928 Date Transcribed: 10/05/171656 Operations Research Group Manager: Signed 02-Oct-2017 SCREENING MAMM (CAD), BILAT Result: Comments: See Note; NOTES: [facility] Imaging Services [address] [facility] [place] [address] SCREENING MAMM (CAD), BILAT MR#: [id number] Acct: [id number] Name: URRUTIAVIRGINIA Rep #: [id number] : 1940 F 76 From: Noel Avitia MD PCP: Kristine Davis DO Status: REG CLI Study: SCREENING MAMM (CAD), BILAT Date of Exam: 10/02/17 Exam# [id number] Ordering Dr: Kristine Davis DO MAMMOGRAPHY - [...] Service support , CC: Kristine Davis DO Operations Research Group Manager: Signed 14-Sep-2016 Venous Duplex Lower Extremity Result: Comments: See Note; NOTES: [facility] Cardiovascular Services [address] [place] [address] Venous Duplex US, Unilateral 09/14/16 1558 MR#: [id number] Acct: [id number] Name: JUNIOR YEHGRIFFIN Delvalle Rep #: [id number] : 1940 75 From: Johan Ortgea MD Attending Dr: Kristine Davis DO Status: [...] appears patent and compressible segmentally. Ordering Physician: Kirstine Davis Referring Physician: Kristine Davis Performed By: Diandra Eastman, TASHACS, RVT Electronically sign ed by: Johan Ortega MD on 09/14/2016 05:15 PM 09/14/16 1715 Date Johan Ortega MD CC: Kristine Davis DO Date Dictated: 09/14/16 1558 Date Transcribed: 09/14/161714 Operations Research Group Manager: Signed 23-Aug-2016 Re-Evaluation - PT (1) Result: Comments: See Note; NOTES: [facility] Physical Therapy [address] [place] [address] Fax REEVALUATION / MEDICARE RUPLARTI MATTHIAS Zamora 4d PHYSICAL THERAPY MR#: [id number] Acct: [id number] Name: VIRGINIA URRUTIA Rep #: [id number] : 1940 75 From: Humberto Aguilar DPT, OCS, CSCS Referring Dr.: OUT OF TOWN DOCTOR Status : REG RCR Insurance: [facility] Out of [facility] Doctor, It has been my pleasure to [...] do not hesitate to contact me at [phone] by phone or if you have questions or concerns regarding this new plan of care! Sincerely, Humberto Aguilar DPT, JEREMY <Electronically signed by PACHECO Delacruz DPT, CSCS> 08/23/16 0929 CC: Kristine Davis DO; OUT [facility] DOCTOR EBG Signed For Medicare only, by signing this I certify the plan of care. Physicians Signature Date 29-Jul-2016 Inital Evaluation (1) - PT Result: Comments: See Note; NOTES: [facility] Physical Therapy [address] [place], [place] [address] Fax REHABILITATION SERVICES INITIAL EVALUATION MR#: [id number] Acct: [id number] Name: VIRGINIA URRUTIA Rep #: [id number] : 1940 75 From: Humberto Aguilar DPT, PACHECO, CSCS Referring DrDav: OUT OF TOWN DOCTOR Status: REG RCR Insurance: [facility] Patient's Visit Information VIRGINIA URRUTIA is a 75 year old F referred to Physical Therapy by Out [facility] Doctor with a diagnosis of L [...] to be FAXED BACK to us at [phone] for Medica re purposes. Please let me [...] Department Summary Result: Comments: See Note; NOTES: [facility] Medical Records Department [address] [place] [address] Emergency Department Summary MR#: [id number] Acct: [id number] Name: VIRGINIA URRUTIA Rep #: [id number] : 1940 75 From: Byron Harris MD [...] C: Kristine Davis DO T: NTS JOB: [id number] 04/19/16 1814 <Electronically signed by Byron Harris MD> Date Byron Harris MD Cosigner Signature (If Indicated): Date CC: Kristine Davis DO Date Dictated: 04/15/1634 Date Transcrib ed: 04/15/1634 Operations Research Group Manager: Signed 15-Apr-2016 Discharge Instruction Result: Comments: See Note; NOTES: [facility] Medical Records Department [address] [place] [address] Discharge Instruction 04/14/16 2307 MR#: [id number] Acct: [id number] Name: JUNIOR URRUTIAGRIFFIN Delvalle Rep #: [id number] : 1940 75 From: Byron Harris MD [...] your Primary Care Provider. Call Doctors Registry ([phone]) or report to the closest Emergency Room. Call 911 if necessary. 04/15/16 0118 &#6 0;Electronically signed by Byron Harris MD> Date Byron Harris MD Cosigner Signature (If Indicated): Date CC: Kristine Davis DO 14-Apr-2016 Venous Duplex Imag/Limited/Uni Result: Comments: See Note; NOTES: [facility] Imaging Services [address] [place] [address] Verdana 4d Venous Duplex Imag/Limited/Uni MR#: [id number] Acct: [id number] Name: GHADARHONA Rep #: [id number] : 1940 F 75 From: Doug Sinclair DO PCP: Kristine Davis DO Status: REG ER Study: Venous Duplex Imag/Limited/Uni Date of Exam: 04/14/16 Exam# [id number] Ordering Dr: Byron Harris MD STUDY: VENOUS [...] Doug Sinclair DO at 23:15 EST Tel [phone], Service support [phone], CC: Kristine Davis DO; Byron Harris MD Operations Research Group Manager: Signed 13-Apr-2016 Spine Lumbar (Routine) Result: Comments: See Note; NOTES: [facility] Imaging Services [address] [place] [address] Verdana 4d Spine Lumbar (Routine) MR#: [id number] Acct: [id number] Name: VIRGINIA URRUTIA Kelly mortensen #: [id number] : 1940 F 75 From: Tiara Parsons MD PCP: Kristine Davis DO Status: REG CLI Study: Spine Lumbar (Routine) Date of Exam: 04/13/16 Exam# [id number] Ordering Dr: Kristine Davis DO STUDY: MRI [...] MD at 11:48 EST , Service support [phone], CC: Kristine Davis DO Operations Research Group Manager: Signed 12-Apr-2016 PT D/C Summary (1) Result: Comments: See Note; NOTES: [facility] Physical Therapy [facility] [address] [place] [address]. [address] [place], [place] [phone] Fax REHABILITATION SERVICES [facility] SUMMARY MR#: [id number] Acct: [id number] Name: VIRGINIA URRUTIA Rep #: [id number] : 1940 75 From: Humberto Aguilar DPT, OCS, CSCS Referring : Kristine Davis DO Status: REG R Insurance: [facility] - PT D/C Summary It has been my pleasure to treat VIRGINIA URRUTIA under orders from Kristine Davis DO, for the diagnosis of R hip pain for a total of 12 visit(s). Discharge Date: Please see the [facility] information for a summary of their discharge [...] help or hurt it. Will be in [place] in May and will have L TKA [...] please feel free to call me at [phone]. Thank eric laureano for the referral of this patient. Sincerely, Humberto Aguilar DPT, OC <Electronically signed by Humberto Aguilar DPT, OCS, CSCS> 04/12/16 1621 CC: Kristine Davis DO EBG Signed 12-Apr-2016 Dexa Bone Density Study () Result: Comments: See Note; NOTES: [facility] Imaging Services [address] [place] [address] Verdaclinton 4d Dexa Bone Density Study (HP) MR#: [id number] Acct: [id number] Name: ENE URRUTIA Rep #: [id number] : 1940 F 75 From: Dashawn Rowe MD PCP: Kristine Davis DO Status: REG CLI Study: Dexa Bone Density Study () Date of Exam: 04/12/16 Exam# [id number] Ordering Dr: Magallanes DO STUDY: DUAL ENERGY [...] Dashawn Rowe MD at 14:32 EST Tel [phone], Service support [phone], CC: Kristine Davis DO Operations Research Group Manager: Signed 10-Mar-2016 Inital Evaluation (1) - PT Result: Comments: See Note; NOTES: [facility] Physical Therapy [facility] [address] [place] [address]. [address] [place] [address] Fax REHABILITATION SERVICES INITIAL EVALUATION MR#: [id number] Acct: [id number] Name: VIRGINIA URRUTIA Rep #: [id number] : 1940 75 From: Jennifer Gongora DPT Referring Dr.: Kristine Davis DO Status: REG R Insurance: [facility]'s Visit Information VIRGINIA URRUTIA is [...] to be FAXED BACK to us at [phone] for Medicare purposes. Please let me know if there are questio ns or concerns regarding this plan of care. Physician Signature: Date: <Electronically signed by Jennifer Gongora DPT> 1243 CC: Kristine Davis DO ELR Signed For Medicare only, by signing this I certify the plan of care. Physicians Signature Date 17-Dec-2015 Echocardiogram Complete Result: Comments: See Note; NOTES: [facility] Cardiovascular Services [address] [place] [address] Echo Complete 12/17/15 1401 MR#: [id number] Acct: [id number] Name: VIRGINIA URRUTIA Rep #: [id number] : 1940 75 From: Chicho Bahena MD Attending Dr: Kristine Davis DO Status: REG CLI Ordering Dr: Kristine Davis DO Date: 12/17/15 Location: [facility] Sex: F C Admitted: Reason For Study: [...] Date Dictated: 12/17/15 1401 Date Transcribed: 12/17/151700 Operations Research Group Manager: Signed 11-Dec-2015 Bilat Scrn Digital AND CAD Result: Comments: See Note; NOTES: [facility] Imaging Services [address] [place] [address] Verdana 4d Bilat Scrn Digital AND CAD MR#: [id number] Acct: [id number] Name: VIRGINIA URRUTIA Rep #: [id number] : 1940 F 75 From: Dashawn Rowe MD PCP: Kristine Davis DO Status: REG CLI Study: Bilat Scrn Digital AND CAD Date of Exam: 12/11/15 Exam# [id number] Ordering Dr: Kristine Davis DO MAMMOGRAPHY - [...] delay biopsy of a clinically suspicious abnormality. [id number] Electronically Signed: Dashawn Rowe MD at 8:47 EDT Tel [phone], Service support [phone], CC: Kristine Davis DO Operations Research Group Manager: Signed 03-Jan-2015 Emergency Department Summary Result: Comments: See Note; NOTES: [facility] Medical Records Department [address] [place] [address] Emergency Department Summary MR#: [id number] Acct: [id number] Name: URRUTIAVIRGINIA DUBOSE Mook Rep #: [id number] : 1940 74 From: Ivette Cline PCP: [...] Angel Grossman C: Kristine Davis DO T: [facility] JOB: [id number] 01/03/15 8610 <Electronically signed Marija Cline > Date Ivette Cline Cosigner Signature (If Indicated): Date CC: Kristine Davis DO Date Dictated: 12/27/141108 Date Transcribed: 12/27/141108 Operations Research Group Manager: Signed 27-Dec-2014 Discharge Instruction Result: Comments: See Note; NOTES: [facility] Medical Records Department [address] [place] [address] Discharge Instruction 12/27/14 1100 MR#: [id number] Acct: [id number] Name: VIRGINIA URRUTIA Rep #: [id number] : 1940 74 From: Ivette Cline PCP: [...] any unexpected problems, contact your doctor. Call [facility] ([phone]) or report to the closest Emergency Room. Call 911 if necessary. 12/27/141105 <Electronically signed by Ivette Cline > Date Ivette Cline Cosigner Signature (If Indicated): Date _ CC: Kristine Davis DO 27-Dec-2014 Spine Cervical without Contras Result: Comments: See Note; NOTES: [facility] Imaging Services [address] [place] [address] Verdana 4d Spine Cervical without Contras MR#: [id number] Acct: [id number] Na me: VIRGINIA URRUTIA Rep #: [id number] : 1940 F 74 From: Doug Sinclair DO PCP: Kristine Davis DO Status: REG ER Study: Spine Cervical without Contras Date of Exam: 12/27/14 Exam# [id number] Ordering Dr : Ivette Cline STUDY: CT [...] Doug Sinclair DO at 10:36 EDT Tel [phone], Service suppo rt [phone], CC: Ivette Cline; Kristine Davis DO Operations Research Group Manager: Signed 23-Dec-2014 Emergency Department Summary Result: Comments: See Note; NOTES: [facility] Medical Records Department [address] [facility] [place] [address] Emergency Department Summary MR#: [id number] Acct: [id number] Name: VIRGINIA URRUTIA Rep #: [id number] : 1940 74 From: Se Dawkins MD [...] acute. Se Dawkins MD T: NTS JOB: [id number] 12/23/14 0800 <Electronically signed by Se Dawkins MD> Date Se Dawkins MD Cosigner Signature (If Indicated): Date CC: Kristine Davis DO Date Dictated: 12/23/14707 Date Transcribed: 12/23/14707 Operations Research Group Manager: Signed 23-Dec-2014 Discharge Instruction Result: Comments: See Note; NOTES: [facility] Medical Records Department [address] [facility] [place] [address] Discharge Instruction 12/23/14704 MR#: [id number] Acct: [id number] Name: VIRGINIA URRUTIA Rep #: [id number] : 1940 74 From: Se Dawkins MD [...] problems, contact your doctor. Call [facility] Registry ([phone]) or r eport to the closest Emergency Room. Call 911 if necessary. 12/23/14705 <Electronically signed by Se Dawkins MD> Date Se collins MD Cosigner Signature (If Indicated): Date CC: Kristine Davis DO 10-Dec-2014 ELECTROCARDIOGRAM, COMPLETE (ECG) (30673) Result: [MEASUREMENTS ANALYSIS] Date of Test: 12/10/2014 10:23:24; Heart Rate: 91; SD Interval: 144; QRS: 96; QT Interval: 372; Corrected QT Interval (QTc): 426; P Wave [place]: 49; QRS Wave [place]: 35; T Wave [place]: 30; Blood Pressure: 0/0 [ECG DIAGNOSTIC STATEMENTS] Date of Test: 12/10/2014 10:23:24; Summary: Sinus Rhythm Low voltage in limb leads. ABNORMAL 22-Sep-2014 Abdomen/Pelvis WITH Contrast Result: Comments: See Note; NOTES: [facility] Imaging Services [address] [place] [address] CAT Scan Report MR#: [id number] Acct: [id number] Name: VIRGINIA URRUTIA Rep #: [id number] : 1940 F 73 From: Rey Rojo MD PCP: Kristine Davis DO Status: REG CLI Study: Abdomen/Pelvis WITH Contrast Date of Exam: 09/22/14 Exam# [id number] Ordering Dr: Kristine Davis DO STUDY : [...] IMPRESSION: No CT evidence of an ac zeus intra-abdominal or pelvic process. Redemonstrated small multiple gallstones and bilateral renal cysts. Normal appendix. Electronically Signed: Rey Rojo MD at 16:58 EDT Te l [phone], Service support [phone], CC: Kristine Davis DO Operations Research Group Manager: Signed 31-Mar-2014 Transvaginal Non- Result: Comments: See Note; NOTES: [facility] Imaging Services [address] [place] [address] Ultrasound Report MR#: [id number] Acct: [id number] Name: VIRGINIA URRUTIA Rep #: [id number] : 1940 F 73 From: Dashawn Rowe MD PCP: Kristine Davis DO Status: REG CLI Study: Transvaginal Non- Date of Exam: 03/31/14 Exam# [id number] Ordering Dr: Kristine Davis DO STUD Y: [...] Dashawn Rowe MD at 13:55 EST Tel [phone], Service support [phone], F ax [phone] CC: Kristine Davis DO Operations Research Group Manager: Signed 31-Mar-2014 Pelvic (Non ) Result: Comments: See Note; NOTES: [facility] Imaging Services [address] [facility] [place] [address] Ultrasound Report MR#: [id number] Acct: [id number] Name: VIRGINIA URRUTIA Rep #: [id number] : 1940 F 73 From: Dashawn Rowe MD PCP: Kristine Davis DO Status: REG CLI Study: Pelvic (Non ) Date of Exam: 03/31/14 Exam# [id number] Ordering Dr: Kristine Davis DO STUDY: U [...] Dashawn Rowe MD at 13:55 EST Tel [phone], Service support [phone], Fax CC: Kristine Davis DO Operations Research Group Manager: Signed 22-Jan-2014 Laverne Esparza Digital & CAD Result: Comments: See Note; NOTES: [facility] Imaging Services [address] [place] [address] Breast Imaging Report MR#: [id number] Acct: [id number] Name: VIRGINIA URRUTIA Rep #: [id number] : 1940 F 73 From: Dashawn Rowe MD PCP: Kristine Davis DO Status: REG CLI Exam# [id number] Ordering Dr: Kristine Davis DO MAMMOGRAPHY - [...] Dashawn Rowe MD at 14:49 EST Tel [phone], Ser vice support [phone], CC: Kristine Davis DO Operations Research Group Manager: Signed 07-Nov-2013 L/S Spine Min 4 Views Result: Comments: See Note; NOTES: [facility] Imaging Services [address] [place] [address] Radiology Report MR#: [id number] Acct: [id number] Name: VIRGINIA URRUTIA Rep #: [id number] : 1940 F 73 From: Tod Lamas MD PCP: Kristine Davis DO Status: REG CLI Study: L/S Spine Min 4 Views Date of Exam: 11/07/13 Exam# [id number] Ordering Dr: Kristine Davis DO STUDY: X-RA [...] at 18:52 EDT Tel , Service support [phone], CC: Kristine Davis DO Operations Research Group Manager: Signed 07-Nov-2013 Thoracic Spine 3 Views Result: Comments: See Note; NOTES: [facility] Imaging Services [address] [facility] [place] [address] Radiology Report MR#: [id number] Acct: [id number] Name: VIGRINIA URRUTIA Rep #: [id number] : 1940 F 73 From: Tod Lamas MD PCP: Kristine Davis DO Status: REG CLI Study: Thoracic Spine 3 Views Date of Exam: 11/07/13 Exam# [id number] Ordering Dr: Kristine Davis DO STUDY: X-R [...] at 17:07 EDT Tel , Service support [phone], CC: Kristine Davis DO Operations Research Group Manager: Signed 05-Nov-2013 Abdomen/Pelvis without Cont Result: Comments: See Note; NOTES: [facility] Imaging Services [address] [place] [address] CAT Scan Report MR#: [id number] Acct: [id number] Name: VIRGINIA URRUTIA Rep #: [id number] : 1940 F 73 From: Dashawn Rowe MD PCP: Kristine Davis DO Status: REG CLI Study: Abdomen/Pelvis without Cont Date of Exam: 11/05/13 Exam# [id number] Ordering Dr: Kristine Davis DO STUD Y: [...] Dashawn Rowe MD at 15:39 EDT Tel [phone], Service supp ort [phone], CC: Kristine Davis DO Operations Research Group Manager: Signed 07-Oct-2013 Kidney and Bladder Result: Comments: See Note; NOTES: [facility] Imaging Services [address] [place] [address] Ultrasound Report MR#: [id number] Acct: [id number] Name: VIRGINIA URRUTIA Rep #: [id number] : 1940 F 72 From: Brook Cummings DO PCP: Kristine Davis DO Status: REG CLI Study: Kidney and Bladder Date of Exam: 10/07/13 Exam# [id number] Ordering Dr: Aquiles Potts STUDY: RENAL ULTRAS [...] at 23:16 EDT Tel , Service support [phone], CC: Aqiules Potts; Kristine Davis DO Operations Research Group Manager: Signed Immunization Name Dates Details Influenza (3 years and up) on: 17-Dec-2008 Comments: Lot #:[id number] date:mount given:0.5mlRoute: IMSite given:left deltoidGiven by: AYAD [...] smoker Vital Signs Date Test Result Details 60-Lax-839389:07 Temperature 97.9 f Comments: Method: Temporal Pulse [...] kg/m2 Body Surface Area Calculated 2.08 m2 89-Oug-983041:00 Temperature 97.4 f Comments: Method: Temporal Pulse [...] 0.00 cm Results Date Description Value Details 96-Ywf-410101:12 ANGTENSIN 1-CONVRT ENZYM Comments: PATIENT NOT FASTINGPERFORMED BY: DXY [facility] [id number] BY: [address] [id number] ([id number]) YOSEF 30 U/L (Normal) Range: 14-82 39-Ahx-001450:12 CCP ANTIBODY (47372) Comments: PATIENT NOT FASTINGPERFORMED BY: DXY [facility] [id number] BY: [address] [id number] CCP Antibodies IgG/IgA 8 {units} (Normal) Range: 0-19 Comments: Negative <20 Weak positive 20 - 39 Moderate positive 40 - 59 Strong positive >59 99-Jkh-041550:12 CAROL (ANTINUCLEAR ANTIBODY) Comments: PATIENT NOT FASTINGPERFORMED BY: DXY [facility] [id number] BY: [address] [id number] ([id number]) CAROL Direct Negative (Normal) 51-Cll-093492:12 RHEUMATOID FACTOR-QUANT Comments: PATIENT NOT FASTINGPERFORMED BY: [address] [id number] BY: [address] [id number] (83394) RA Latex Turbid. <10.0 {IU/mL} (Normal) Range: 0.0-13.9 17-Ctx-883958:12 SED RATE ERYTHROCYTE Comments: PATIENT NOT FASTINGPERFORMED BY: [address] [id number] BY: [address] [id number] (00840) Sedimentation Rate-Westergren 15 mm/h (Normal) Range: 0-40 31-Nrq-230314:12 C-REACTIVE PROTEIN Comments: PATIENT NOT FASTINGPERFORMED BY: [place] 3515870 [facility] [id number] BY: [address] [id number] (17774) C-Reactive Protein, Quant 2.9 mg/L (Normal) Range: 0.0-4.9 58-Feq-845237:12 CBC, PLATELETS & AUT DIFF Comments: PATIENT NOT FASTINGPERFORMED BY: [address] [id number] BY: [address] [id number] (24715) Immature Grans (Abs) 0.0 {x10E3/uL} (Normal) Range: [...] 3.77-5.28 WBC 7.8 {x10E3/uL} (Normal) Range: 3.4-10.8 54-Rrc-898803:12 VITAMIN B-12 Comments: PATIENT NOT FASTINGPERFORMED BY: DXY [facility] [id number] BY: APX[address] [id number] (CYANOCOBALAMIN) (01225) Vitamin B12 579 pg/mL (Normal) Range: 232-1245 60-Tzt-07926:31 LIPID PANEL (70398) Comments: PATIENT WAS FASTINGPERFORMED BY: ColosseoEASSaint Michael's Medical CenterIeizlw0164 [facility] [id number]; appt 01/02 LDL/HDL Ratio 1.9 {ratio} (Normal) [...] be changing to: Male Female 40 - 895215 50 - 207289 Triglycerides 145 mg/dL (Normal) Range: 0-149 Cholesterol, Total 240 mg/dL (Abnormal) Range: 100-199 78-Aho-54768:31 METABOLIC PANEL, COMPREHENSIVE Comments: PATIENT WAS FASTINGPERFORMED BY: LISBETH AnTuTu70 [facility]throughLake [facility] [id number] (37446) ALT (SGPT) 16 [iU]/L (Normal) Range: 0-32 [...] 8-27 Glucose 98 mg/dL (Normal) Range: 65-99 47-Vfq-209825:13 METABOLIC PANEL, BASIC Comments: PATIENT NOT FASTINGPERFORMED BY: LISBETH Twiigg6370 [facility] [id number]; review on 01/02 (61181) Calcium 9.9 mg/dL (Normal) Range: 8.7-10.3 Carbon [...] 8-27 Glucose 98 mg/dL (Normal) Range: 65-99 58-Aln-233423:38 GGT (Gamma Glutamyl Comments: PATIENT NOT FASTINGPERFORMED BY: ColosseoEAS SnapvineLake [facility] [id number] Transferase) (40398) GGT 20 [iU]/L (Normal) Range: 0-60 93-Ygp-433348:38 Alkaline Phosphatase (20250) Comments: PATIENT NOT FASTINGPERFORMED BY: APX [facility]vineL[facility] [id number] Alkaline Phosphatase 131 [iU]/L (Abnormal) Range: 39-117 68-Vmy-606200:38 THYROXINE FREE (23048) Comments: PATIENT NOT FASTINGPERFORMED BY: APX Oozlck5536 [facility]throughL[facility] [id number] T4,Free(Direct) 1.92 ng/dL (Abnormal) Range: 0.82-1.77 57-Ibe-472269:38 FREE TRIDOTHYRONINE (T3) (62579) Comments: PATIENT NOT FASTINGPERFORMED BY: APX Yjjqzr4652 [facility] [id number] Triiodothyronine,Free,Serum 2.4 pg/mL (Normal) Range: 2.0-4.4 13-Rql-889289:38 VITAMIN B-12 (CYANOCOBALAMIN) Comments: PATIENT NOT FASTINGPERFORMED BY: APX Paion AG [facility] [id number] (77799) Vitamin B12 665 pg/mL (Normal) Range: 232-1245 92-Dwp-14281:06 VITAMIN B-12 (CYANOCOBALAMIN) Comments: PATIENT NOT FASTINGPERFORMED BY: [facility]6370 [facility] [id number] (67747) Vitamin B12 1301 pg/mL (Abnormal) Range: 232-1245 9-Gyg-043566:25 Metabolic Panel, Comprehensive Comments: PATIENT NOT FASTINGPERFORMED BY: [facility]6370 [facility] [id number]; review on 08/28 (71887) ALT (SGPT) 10 [iU]/L (Normal) Range: 0-32 [...] 8-27 Glucose 84 mg/dL (Normal) Range: 65-99 4-Voc-498197:25 CBC WITH MANUAL DIFF (38184) Comments: PATIENT NOT FASTINGPERFORMED BY: APXSaint Michael's Medical CenterLqhezj0018 [facility] [id number] Immature Grans (Abs) 0.0 {x10E3/uL} (Normal) Range: [...] 3.77-5.28 WBC 7.9 {x10E3/uL} (Normal) Range: 3.4-10.8 6-Iae-556671:59 METABOLIC PANEL, COMPREHENSIVE Comments: PATIENT NOT FASTINGPERFORMED BY: Twiigg6370 [facility] [id number] (54296) ALT (SGPT) 10 [iU]/L (Normal) Range: 0-32 [...] 88 mg/dL (Normal) Range: 65-99 :46 TSH (11975) Comments: 6 weeks; PATIENT NOT FASTINGPERFORMED BY: APX Ziofme7680 [facility] [id number] TSH 2.420 {uIU/mL} (Normal) Range: 0.450-4.500 :23 LIPID PANEL (18548) Comments: PATIENT WAS FASTINGPERFORMED BY: APXSaint Michael's Medical CenterTfmclb3549 [facility] [id number] LDL/HDL Ratio 1.6 {ratio_units} (Normal) Range: 0.0-3.2 Comments: LDL/HDL Ratio Men Women 1/2 Avg.Risk 1.0 1.5 Av g.Risk 3.6 3.2 2X Avg.Risk 6.2 5.0 3X Avg.Risk 8.0 6.1 LDL Cholesterol Calc 125 mg/dL (Abnormal) Range: 0-99 VLDL Cholesterol Meliton 25 mg/dL (Normal) Range: 5-40 HDL Cholesterol 78 mg/dL (Normal) Triglycerides 124 mg/dL (Normal) Range: 0-149 Cholesterol, Total 228 mg/dL (Abnormal) Range: 100-199 41-Wex-26637:23 METABOLIC PANEL, COMPREHENSIVE Comments: PATIENT WAS FASTINGPERFORMED BY: [facility] Usttzp1345 [facility] [id number] (22001) ALT (SGPT) 15 [iU]/L (Normal) Range: 0-32 [...] Range: 65-99 :23 CBC W/AUTO DIFF WBC (88966) Comments: PATIENT WAS FASTINGPERFORMED BY: APX Dbmusz7405 [facility] [id number] Immature Grans (Abs) 0.0 {x10E3/uL} (Normal) Range: [...] (Normal) Range: 3.4-10.8 :23 Vitamin D Hydroxy (93848) Comments: PATIENT WAS FASTINGPERFORMED BY: LabCoPresbyterian Kaseman HospitalIwppyc9376 [facility] [id number] Vitamin D, 25-Hydroxy 41.5 ng/mL (Normal) Range: 30.0-100.0 Comments: Vitamin D deficiency has been defined by the Constable ofMedicine and an Endocrine Society practice guideline as alevel of serum 25-OH vitamin D less than 20 ng/mL (1,2).The Endocrine Society went on to further define vitamin Dinsufficiency as a level between 21 and 29 ng/mL (2).1. IOM (Constable of Medicine). 2010. Dietary reference intakes for calcium and D. [place]: The National Academies Press.2. Seng MF, Theresa ROMERO, Kieran KOWALSKI, et al. Evaluation, treatment, and prevention of vitamin D deficiency: an Endocrine Society clinical practice guideline. JCEM. 2010; 96(7):1911-30. :23 TSH (76991) Comments: PATIENT WAS FASTINGPERFORMED BY: [facility] Nwblds3409 Oliva RoadDublin [place] [id number] TSH 0.429 {uIU/mL} (Abnormal) Range: 0.450-4.500 :23 VITAMIN B-12 (CYANOCOBALAMIN) Comments: PATIENT WAS FASTINGPERFORMED BY: CB [facility] Metkgy5898 [facility]iva [facility] HospitalDublin [place] [id number] (30892) Vitamin B12 553 pg/mL (Normal) Range: 211-946 7-Mft-941854:52 CBC, PLATELETS & MANUAL DIFF Comments: PATIENT NOT FASTINGPERFORMED BY: [facility] Mssbds5146 [facility] HospitalDublin [place] [id number] (39330) Immature Grans (Abs) 0.0 {x10E3/uL} (Normal) Range: [...] 3.4-10.8 :09 Basic Metabolic Profile (BMP) Comments: [facility] [address] [place], [address] GAP 9 (Normal) Range: 5-15 CO2 29.0 [...] :09 CBC-Complete Blood Cnt No Diff Comments: [facility] [address] [place], [address] MPV 9.1 fL (Normal) Range: 6.2-12.0 PLT [...] 5.7 K/mm3 (Normal) Range: 4.4-11.0 :53 Magnesium (57080) Comments: PATIENT NOT FASTINGPERFORMED BY: [facility] Ivcdov7440 [facility] [id number] Magnesium, Serum 1.9 mg/dL (Normal) Range: 1.6-2.3 :53 METABOLIC PANEL, COMPREHENSIVE Comments: PATIENT NOT FASTINGPERFORMED BY: [facility] Cckjhu3276 [facility] [id number]; non- emergent till apt (13521) ALT (SGPT) 18 [iU]/L (Normal) Range: 0-32 [...] Glucose, Serum 83 mg/dL (Normal) Range: 65-99 24-Jvd-26293:53 TSH (44131) Comments: PATIENT NOT FASTINGPERFORMED BY: [email or web address] [facility] Wadrnq7456 [facility] [id number] TSH 1.810 {uIU/mL} (Normal) Range: 0.450-4.500 31-Mme-012607:15 Vitamin D Hydroxy (11950) Comments: PATIENT NOT FASTINGPERFORMED BY: CB [facility] Vurlkr1127 [facility] [id number] Vitamin D, 25-Hydroxy 28.3 ng/mL (Abnormal) Range: 30.0-100.0 Comments: Vitamin D deficiency has been defined by the Constable ofMedicine and an Endocrine Society practice guideline as alevel of serum 25-OH vitamin D less than 20 ng/mL (1,2).The Endocrine Society went on to further define vitamin Dinsufficiency as a level between 21 and 29 ng/mL (2).1. IOM (Constable of Medicine). 2010. Dietary reference intakes for calcium and D. [place]: The National Academies Press.2. Seng MF, Theresa ROMERO, Kieran KOWALSKI, et al. Evaluation, treatment, and prevention of vitamin D deficiency: an Endocrine Society clinical practice guideline. JCEM. 2010; 96(7):1911-30. 97-Wnm-755816:15 VITAMIN B-12 (CYANOCOBALAMIN) Comments: PATIENT NOT FASTINGPERFORMED BY: APXPresbyterian Kaseman HospitalMvxjqc2986 [facility]ECU [facility] [id number] (55797) Vitamin B12 447 pg/mL (Normal) Range: 211-946 60-Bjv-326743:15 CBC W/AUTO DIFF WBC Comments: PATIENT NOT FASTINGPERFORMED BY: [facility] Btdjmg3639 [facility]peratorECU [facility] Center [id number] Information: SRC: ([id number]) Immature Grans (Abs) 0.0 {x10E3/uL} (Normal) Range: [...] 3.77-5.28 WBC 5.6 {x10E3/uL} (Normal) Range: 3.4-10.8 00-Xkp-289500:15 METABOLIC PANEL, COMPREHENSIVE Comments: PATIENT NOT FASTINGPERFORMED BY: [facility] Jtvrns5179 [facility] [id number] (17216) ALT (SGPT) 13 [iU]/L (Normal) Range: 0-32 [...] Glucose, Serum 87 mg/dL (Normal) Range: 65-99 03-Cwq-691758:50 Urinalysis, Office (22762) UA - LEUKOCYTE ESTERASE Trace (Normal) UA - NITRITE Negative (Normal) URINE UROBILINGN TUNDE TIMED Normal mg/dL (Normal) UA - PROTEIN Negative mg/dL (Normal) UA - PH 5 (Abnormal) UA - BLOOD Negative (Normal) UA - SPECIFIC GRAVITY 1.025 (Normal) UA - KETONES Negative mg/dL (Normal) UA - BILIRUBIN Negative (Normal) UA - GLUCOSE Negative (Normal) 78-Jvy-597392:15 URINE CESAR CULTURE (TUNDE COL Comments: PATIENT NOT FASTINGPERFORMED BY: No ChainsLake [facility] [id number] COUNT) (21382) Result 1 MUG (Normal) Comments: Mixed urogenital floraGreater than 100,000 colony forming units per mL Urine Culture,Comprehensive Final report (Normal) 07-Dpc-233742:29 URINE CESAR CULTURE-IDENTIFICATN Comments: PATIENT NOT FASTINGPERFORMED BY: No ChainsLake [facility] [id number] Information: [id number] (68723) Result 1 MUG (Normal) Comments: Mixed urogenital flora1,000 Colonies/mL Urine Culture,Comprehensive Final report (Normal) 57-Uqb-761091:29 URINE CESAR CULTURE-TUNDE COL Comments: PATIENT NOT FASTINGPERFORMED BY: GnuBIOECU Health Medical Center [id number] Information: SRC:UR [id number] COUNT (25923) Result 1 MUG (Normal) Comments: Mixed urogenital flora25,000-50,000 colony forming units per mL Urine Final report (Normal) Culture,Comprehensive 00-Gab-150653:07 Urinalysis, Office (20750) UA - LEUKOCYTE ESTERASE Small (Normal) UA - NITRITE Negative (Normal) URINE UROBILINGN TUNDE TIMED Normal mg/dL (Normal) UA - PROTEIN Negative mg/dL (Normal) UA - PH 5 (Abnormal) UA - BLOOD Hemolyzed Trace (Normal) UA - SPECIFIC GRAVITY 1.015 (Normal) UA - KETONES Negative mg/dL (Normal) UA - BILIRUBIN Negative (Normal) UA - GLUCOSE Negative (Normal) 5-Gca-568475:02 URINE CESAR CULTURE (TUNDE Comments: PATIENT NOT FASTINGPERFORMED BY: ColosseoEAS Ohsjyb8104 [facility] [id number] Information: SRC:[facility] [id number] [place] COUNT) (68196) Result 1 NG36 (Normal) Comments: No growth in 36 - 48 hours. Urine Culture,Comprehensive Final report (Normal) 17-Sep-20149:51 CBC With Differential/Platelet Comments: PATIENT NOT FASTINGPERFORMED BY: APX Jnksxq0641 [facility] [id number] Information: [id number] Immature Grans (Abs) 0.0 {x10E3/uL} (Normal) Range: [...] (14) Comments: PATIENT NOT FASTINGPERFORMED BY: [facility] Psifxa4007 [facility] [id number] ALT (SGPT) 11 [iU]/L (Normal) Range: 0-32 [...] (Normal) Range: 65-99 :13 SED RATE ERYTHROCYTE (68759) Comments: PATIENT WAS FASTINGPERFORMED BY: APXSaint Michael's Medical CenterIjnivv7376 [facility] [id number] Sedimentation Rate-Westergren 6 mm/h (Normal) Range: 0-40 :13 C-REACTIVE PROTEIN (03765) Comments: PATIENT WAS FASTINGPERFORMED BY: Book&TableMarlette Regional Hospital6370 [facility] [id number] C-Reactive Protein, Quant 2.2 mg/L (Normal) Range: 0.0-4.9 :13 CBC W/AUTO DIFF WBC Comments: PATIENT WAS FASTINGPERFORMED BY: APX Fsyifd5617 [facility] [id number] Information: [id number] (91014) Immature Grans (Abs) 0.0 {x10E3/uL} (Normal) Range: [...] 3.77-5.28 WBC 4.6 {x10E3/uL} (Normal) Range: 3.4-10.8 71-Ucy-52940:13 TSH (33017) Comments: PATIENT WAS FASTINGPERFORMED BY: No [facility]ainsLake [facility] [id number] TSH 0.584 {uIU/mL} (Normal) Range: 0.450-4.500 69-Rou-617899:42 Urinalysis, Office (67921) UA - LEUKOCYTE ESTERASE Small (Normal) UA - NITRITE Negative (Normal) URINE UROBILINGN TUNDE TIMED Normal mg/dL (Normal) UA - PROTEIN Negative mg/dL (Normal) UA - PH 6 (Abnormal) UA - BLOOD Negative (Normal) UA - SPECIFIC GRAVITY 1.025 (Normal) UA - KETONES Negative mg/dL (Normal) UA - BILIRUBIN Negative (Normal) UA - GLUCOSE Negative (Normal) 89-Mak-368481:43 URINE CESAR CULTURE (TUNDE Comments: PATIENT NOT FASTINGPERFORMED BY: [facility] [id number] Information: SRC:UR [id number] COL COUNT) (17192) Result 1 MUG (Normal) Comments: Mixed urogenital flora25,000-50,000 colony forming units per mL Urine Final report (Normal) Culture,Comprehensive :13 Vitamin D Hydroxy (41367) Comments: PATIENT WAS FASTINGPERFORMED BY: [employer] System70 [facility] [id number] Vitamin D, 25-Hydroxy 38.7 ng/mL (Normal) Range: 30.0-100.0 Comments: Vitamin D deficiency has been defined by the Constable ofMedicine and an Endocrine Society practice guideline as alevel of serum 25-OH vitamin D less than 20 ng/mL (1,2).The Endocrine Society went on to further define vitamin Dinsufficiency as a level between 21 and 29 ng/mL (2).1. IOM (Constable of Medicine). 2010. Dietary reference intakes for calcium and D. [place]: The National Academies Press.2. Seng MF, Theresa [place], Kieran KOWALSKI, et al. Evaluation, treatment, and prevention of vitamin D deficiency: an Endocrine Society clinical practice guideline. JCEM. 2010; 96(4):8711-30. :13 LIPID PANEL (65921) Comments: PATIENT WAS FASTINGPERFORMED BY: APX Rworho6513 [facility] [id number] LDL/HDL Ratio 1.8 {ratio_units} (Normal) Range: 0.0-3.2 [...] PANEL, COMPREHENSIVE Comments: PATIENT WAS FASTINGPERFORMED BY: EcoDirectlin6370 [facility] [id number] (47822) ALT (SGPT) 14 [iU]/L (Normal) Range: 0-32 [...] Glucose, Serum 86 mg/dL (Normal) Range: 65-99 34-Atj-05015:13 VITAMIN B-12 (CYANOCOBALAMIN) Comments: PATIENT WAS FASTINGPERFORMED BY: [employer]70 [facility] [id number] (19861) Vitamin B12 >1999 pg/mL (Abnormal) Range: 211-946 56-Iug-523318:00 Metabolic Panel, Basic Comments: 6 weeks; PATIENT NOT FASTINGPERFORMED BY: [employer]70 [facility] [id number] Information: [id number] (01316) Calcium, Serum 9.7 mg/dL (Normal) Range: 8.6-10.2 [...] Glucose, Serum 90 mg/dL (Normal) Range: 65-99 02-Eue-988523:24 URINE CESAR CULTURE-IDENTIFICATN Comments: PATIENT NOT FASTINGPERFORMED BY: [facility]6370 [facility] [id number] Information: [id number] (71173) Result 1 ENTEGA (Abnormal) Comments: Enterococcus vljrxqbenv16,000-25,000 colony forming units per mLNote: For enterococci with intrinsic intermediate-level resistance tovancomycin, such as E. casseliflavus and E. gallinarum, VRE infection control measures are not applicable, per the CLSI (formerly NCCLS).For Enterococcus species, cephalosporins, aminoglycosides (except forhigh-level resistance screening), clindamycin, and trimethoprim-curtis lfamethoxazole are not effective clinically. Fluoroquinolones areused primarily for treating urinary tract infections. (CLSI, M319-I25,2009) S = Susceptible; I = Intermediate; R = Resistant * P = Positive; N = Negative MICS are expressed in micrograms per mL Antibiotic RSLT#1 RSLT#2 RSLT#3 RSLT#4Ciprofloxacin SGentami lien 500 SLevofloxacin SNitrofurantoin IPenicillin SStreptomycin 2000 STetracycline SVancomycin R Urine Final report (Abnormal) Culture,Comprehensive 45-Bkc-301938:51 METABOLIC PANEL, Comments: PATIENT NOT FASTINGPERFORMED BY: [facility]6370 [facility] [id number] Information: [id number] COMPREHENSIVE (57715) ALT (SGPT) 20 [iU]/L (Normal) Range: 0-32 [...] Glucose, Serum 80 mg/dL (Normal) Range: 65-99 60-Yei-607298:04 Microscopic Examination Comments: PATIENT NOT FASTINGPERFORMED BY: [email or web address] LabStreamcore System6370 [facility] [id number] Bacteria Few (Normal) Mucus Threads Present (Normal) Epithelial Cells (non renal) 0-10 {/hpf} (Normal) Range: 0 - 10 RBC None seen {/hpf} (Normal) Range: 0 - 2 WBC None seen {/hpf} (Normal) Range: 0 - 5 66-Vpt-752353:04 URINE CESAR CULTURE (TUNDE COL Comments: PATIENT NOT FASTINGPERFORMED BY: [email or web address].com [facility] Dzckip9294 [facility] [id number] COUNT) (84125) Antimicrobial MIHEAD (Normal) Comments: S = Susceptible; [...] mL (Abnormal) Urine Final report Culture,Comprehensive (Abnormal) 97-Ily-990485:04 URINALYSIS, W/ MICRO Comments: PATIENT NOT FASTINGPERFORMED BY: [facility]6370 [facility] [id number] Information: SRC: [id number] (00056) Microscopic Examination See below: (Normal) Comments: Microscopic was indicated and was performed. Microscopic Examination MICRON (Normal) Comments: Microscopic follows if indicated. Nitrite, Urine Negative (Normal) Bilirubin Negative (Normal) Urobilinogen,Semi-Qn 0.2 mg/dL (Normal) Range: 0.0-1.9 Ketones Negative (Normal) Occult Blood Negative (Normal) Glucose Negative (Normal) Protein Negative (Normal) WBC Esterase Negative (Normal) Appearance Clear (Normal) Urine-Color Yellow (Normal) pH 6.0 (Normal) Range: 5.0-7.5 Specific [place] 1.010 (Normal) Range: 1.005-1.030 14-Ugk-560206:00 METABOLIC PANEL, Comments: PATIENT NOT FASTINGPERFORMED BY: [facility]6370 [facility] [id number] Information: [id number] COMPREHENSIVE (55547) ALT (SGPT) 11 [iU]/L (Normal) Range: 0-32 [...] CHOL 200 mg/dL (Normal) Comments: <200 mg/dL Isykljfva175-236 mg/dL Borderline>240 mg/dL High Risk :26 TSH 1.85 {uIU/mL} (Normal) Range: 0.358-3.74 :26 VITD 72.9 mg/mL (Normal) Comments: will review at 11-05 appt Comments: Vitamin D 25(OH) Status RangeDeficiency <20 ng/mL (50nmol/L)Insuffciency 20 - 30 ng/mL (50 - 75 nmol/L)Sufficiency 30 - 100 ng/mL (75 - 250 nmol/L)Toxicity >100 ng/mL (>250 nmol/L) 0-Snd-497874:05 Urinalysis, Office (31156) UA - LEUKOCYTE ESTERASE Negative (Normal) UA - NITRITE Negative (Normal) URINE UROBILINGN TUNDE TIMED 2 mg/dL (Normal) UA - PROTEIN 30 mg/dL (Normal) UA - PH 6.0 (Normal) Comments: 5.5 UA - BLOOD Negative (Normal) UA - SPECIFIC GRAVITY 1.030 (Abnormal) UA - KETONES Small mg/dL (Normal) UA - BILIRUBIN Negative (Normal) UA - GLUCOSE Negative (Normal) 0-Txc-886323:33 URINE CESAR CULTURE-TUNDE COL Comments: PERFORMED BY: [facility] [place] [id number] COUNT (52547) Result 1 MUG (Normal) Comments: Mixed urogenital flora10,000-25,000 colony forming units per mL Urine Final report (Normal) Culture,Comprehensive 81-Ojr-647982:52 URINE CESAR CULTURE-TUNDE COL Comments: PATIENT NOT FASTINGPERFORMED BY: No [facility]ainsLake [facility] [id number] Information: SRC:UR [id number] COUNT (59214) Antimicrobial MIHEAD (Normal) Comments: S = Susceptible; [...] CHOL 203 mg/dL (Abnormal) Comments: <200 mg/dL Amsjxarle670-462 mg/dL Borderline>240 mg/dL High Risk :47 TSH 1.52 {uIU/mL} (Normal) Range: 0.358-3.74 :47 VITD 59.3 mg/mL (Normal) Comments: Vitamin D 25(OH) Status RangeDeficiency <20 ng/mL (50nmol/L)Insuffciency 20 - 30 ng/mL (50 - 75 nmol/L)Sufficiency 30 - 100 ng/mL (75 - 250 nmol/L)Toxicity >100 ng/mL (>250 nmol/L) 0-Fyl-074511:44 CBC, PLATELETS & AUT DIFF Comments: PATIENT NOT FASTINGPERFORMED BY: [facility] Fohylw8310 [facility] [id number] Information: [id number] (32095) Immature Grans (Abs) 0.0 {x10E3/uL} (Normal) Range: [...] (Normal) Range: 3.4-10.8 :44 FOLIC ACID SERUM (96088) Comments: PATIENT NOT FASTINGPERFORMED BY: ColosseoEAS [employer] [facility] [id number] Folate (Folic Acid), Serum 14.4 ng/mL (Normal) Comments: A serum folate concentration of less than 3.1 ng/mL isconsidered to represent clinical deficiency. :44 RETICULOCYTE COUNT [facility] Comments: PATIENT NOT FASTINGPERFORMED BY: ColosseoEASPresbyterian Kaseman HospitalJknggx5517 [facility] [id number] (03272) Reticulocyte Count 1.1 % (Normal) Range: 0.6-2.6 :44 LDH (LD) (LACTATE DEHYDROGENASE) Comments: PATIENT NOT FASTINGPERFORMED BY: ColosseoEASSaint Michael's Medical CenterLnmxuy4893 [facility] [id number] (62500) LDH 250 [iU]/L (Abnormal) Range: 0-214 :44 IRON BINDING CAPACITY (TIBC) Comments: PATIENT NOT FASTINGPERFORMED BY: ColosseoEASSaint Michael's Medical CenterXfmlvv1741 [facility] [id number] (29003) Iron Saturation 16 % (Normal) Range: 15-55 Iron, Serum 52 ug/dL (Normal) Range: 35-155 UIBC 270 ug/dL (Normal) Range: 150-375 Iron Bind.Cap.(TIBC) 322 ug/dL (Normal) Range: 250-450 :44 FERRITIN (13474) Comments: PATIENT NOT FASTINGPERFORMED BY: [facility] Biwgua3570 [place] [id number] Ferritin, Serum 42 ng/mL (Normal) Range: 15-150 [...] Rowe M.D.July 23, 2012 at 2:35:49 PM [id number] Signed GP/GP If you are the referring physicia n and would like to consult with theradiologist who provided this interpretation, please contact Ofelia Rodriguez at [phone]. If this radiologist is unavailable, youwill be directed to [facility] radiologist to assist. If you are a patient with a question regarding this report, pleasecontactyour referring physician directly. Professional Interpretation Provided By: [facility], Phone , These documents contain legally protected [...] 3 1439 Sign by: Dashawn Rowe MD 2-Llx-980968:59 KIDNEY Radiology Report See Note (Normal) Comments: [...] Welsh M.D.July 11, 2012 at 5:00:06 PM [id number] Signed TT/TT If you are the referring physician and would like to consult with theradiologist who provided this interpretation, please contact Brittney Mccormack M.D. at [phone]. If this radiologist is unavailable, youwillbe directed to another radiologist to assist. If you are a patient with a question regarding this report, pleasecontactyour referring physician directly. Professional Interpretat ion Provided By: [facility], Phone , These documents contain legally protected and confidential healthinformation intended only for the use of the individual or entity [facility]. If you are not the intended [...] on 07/11/121825 Sign by: Brittney Welsh MD 0-Pwu-658426:59 TRANSVAGINAL NON- Radiology Report See Note (Normal) [...] Welsh M.D.July 11, 2012 at 4:45:28 PM [phone] Signed TT/TT If you are the referring physician and would like to consult with sebastian taylorogjudi who provided this interpretation, please contact Brittney Mccormack M.D. at [phone]. If this radiologist is unavailable, youwillbe directed to another radiologist to assist. If you are a p atient with a question regarding this report, pleasecontactyour referring physician directly. Professional Interpretation Provided By: [facility], Phone , These documents contain legally protected [...] CHOL 210 mg/dL (Abnormal) Comments: <200 mg/dL Rmfxazcbr420-736 mg/dL Borderline>240 mg/dL High Risk :44 MG 1.8 mg/dL (Normal) Range: 1.8-2.4 :44 SED tSEDRATE 18 mm/h (Normal) Range: 0-30 :44 TSH 8.94 {uIU/mL} (Abnormal) Range: 0.358-3.74 :44 VITD 90.8 ng/mL (Normal) Comments: Vitamin D 25(OH) Status RangeDeficiency <20 ng/mL (50nmol/L)Insufficiency 20 - 30 ng/mL (50 - 75 nmol/L)Sufficiency 30 - 100 ng/mL (75 - 250 nm ol/L)Toxicity >100 ng/mL (250 nmol/L)Effective 201204-Jul-201243-Qll-650920:29 ABDOMEN/PELVIS WITH CONTRAST Radiology Report See Note [...] to well characterize low-attenuation left renal lesion,probably patient account representative of a cyst. Consider follow-up renal sonographyforfurther evaluation as clinically warranted. Signed:Matilda AvilesJuly 04, 2012 at 5:12:21 PM [id number] Signed DL/DL If you are the referring physician and would like to consult with theradiologist who provided this interpretation, please contact Ofelia Kyle at [phone]. If this radiologist is unavailable, youwillbe directed to another radiologist to assist. If you are a patient with a question regarding this report, pleasecontactyo ur referring physician directly. Professional Interpretation Provided By: [facility], Phone , These documents contain legally protected [...] on 07/04/121714 Sign by: Salinas Champion MD 82-Itf-184248:18 CRE GFRAA 41 mL/min (Abnormal) GFR 34 mL/min (Abnormal) CREAT 1.6 mg/dL (Abnormal) Range: 0.6-1.0 89-Gaq-283412:15 BMP GAP 7 (Normal) Range: 5-15 CO2 [...] pg/mL (Normal) Range: 211-946 Comments: Performed at: [address] [id number] Director: Patito Segovia MD, Phone: [phone] :[phone] CBCMD RBCM NORM C+C {NORMAL} (Normal) [...] D deficiency has been defined by the Constable ofMedicine and an Endocrine Society practice guideline as alevel of serum 25-OH vitamin D less than 20 ng/mL (1,2).The Endocrine Society went on to further define vitamin Dinsufficiency as a level between 21 and 29 ng/mL (2).1. IOM (Constable of Medicine). 2010. Dietary reference intakes for calcium and D. [place]: The National Academies Press.2. Seng MF, Theresa ROMERO, Kieran KOWALSKI, et al. Evaluation, treatment, and prevention of vitamin D deficiency: an Endocrine Society clinical practice guideline. JCEM. 2010; 96(7):1911-30. 54-Uav-897739:37 BREAST UNILATERAL Radiology Report See Note (Normal) [...] Category 3: Probably Benign Finding - Initial Ixchf-QonrrnosRwvguy-vq Suggested. Signed:Dashawn Rowe M.D.November 09, 2011 at 2:49:17 PM [id number] Signed GP/GP If you are the referring physician and would like to consult with theradiologist who provided this interpretation, please contact Herb blake M.D. at [phone]. If this radiologist is unavailable, youwill be directed to another radiologist to assist. If you are a patient with a question regarding this report, pleasecontactyour referri ng physician directly. Professional Interpretation Provided By: [facility], Phone , These documents contain legally protected [...] 11/09/11 1456 Sign by: Dashawn Rowe MD 96-Uje-833862:47 BREAST UNILATERAL Radiology Report See Note (Normal) [...] Category 3: Probably Benign Finding - Initial Byfvs-MisapvwzYhaqdn-bk Suggested. To consult with a radiologist regarding this report, please call our [id number] line @ Dictated on 06/22/11 1428 by Soledad CARRANZA,Tacobed on 06/22/11 1547 by ITS IMPORTSign by Dashawn Rowe MD on 06/22/11 1548 Sign by: ___ Dashawn Rowe MD 79-Lwk-249789:47 UNILAT LT DIAG DIGITAL & CAD Radiology [...] radiologist regarding this report, please call our [id number] line @ Dictated on 06/22/11 1357 by Taco Rowe MDbed on 1450 by ITS IMPORTSign by Dashawn Rowe MD on 06/22/11 1451 Sign by: Dashawn Rowe MD 9-Fro-324681:14 CERV SPINE,MIN 4 VIEWS Radiology Report See [...] radiologist regarding this report, please call our [id number] line @ Dictated on 04/13/11 1408 by LISANDRA DUMONT MDTranscribed on 04/14/11 1628 by ITS IMPORTSign by Mook DUMONT MD on 04/14/11 1629 Sign by: LISANDRA DUMONT MD 49-Ews-63751:38 CBCD,SMEAR DIFF RED CELL MORPH SeeNote {NORMAL} [...] or = 500 mg/dL :38 VIT D, 28310 47.8 ng/mL (Normal) Range: 30.0-100.0 Comments: Vitamin D deficiency has been defined by the Constable ofMedicine and an Endocrine Society practice guideline as alevel of serum 25-OH vitamin D less than 20 ng/mL (1,2).The Endocrine Society went on to further define vitamin Dinsufficiency as a level between 21 and 29 ng/mL (2).1. IOM (Constable of Medicine). 2011. Dietary reference intakes for calcium and D. [place]: The National Academies Press.2. Seng MF, Theresa ROMERO, Kieran KOWALSKI, et al. Evaluation, treatment, and prevention of vitamin D deficiency: an Endocrine Society clinical practice guideline. JCEM. 2010; 96(7): 1911-30.Performed at: [email or web address] [address] [id number] Director: Patito Segovia MD, Phone: [phone] :[phone] VITAMIN B12 781 pg/mL (Normal) Range: 254-1320 Comments: There is a low frequency possibility that high titers ofintrinsic blocking antibodies may not be completely inactivated during the reaction pretreatment stepof this testing method. If test results are i n conflictwith the clinical diagnosis, patient should be testedfor the presence of intrinsic factor blocking antibodies. 44-Pbq-781415:29 DEXA BONE DENSITY STUDY (HP) Comments: appt [...] Dictated on 02/01/11 1532 by Phillip Rowe MD on 02/02/11 0842 by ITS IMPORTSign by Dashawn Rowe MD on 02/02/11 0843 Sign by: Dashawn Rowe MD 46-Pye-464244:03 Thin prep Pap Comments: Source.............Cervical;EndocervicalNo. of containers..01 CYTYC Thin Prep VialPERFORMED BY: [facility] [id number] Information: [id number] ([id number]) Note: PAPSMR (Normal) Comments: The Pap smear [...] ; Routine gynecolog ical examina Deidre Aguila Machine Programmer (ASCP) 41-Riq-060263:01 BILAT SCRN DIGITAL & CAD Radiology Report [...] 11/10/10 1453 Sign by: Dashawn Rowe MD 05-Cgr-931371:16 COMP METABOLIC Comments: appt 11/05/10 GAP 10 [...] 7-18 GLU 79 mg/dL (Normal) Range: 70-110 24-Nja-150082:16 LIPID VLDL 24 mg/dL (Normal) Range: 5-40 [...] 200-240 mg/dL Borderline >240 mg/dL High Risk 55-Bbt-157735:16 TSH 0.99 {uIU/mL} (Normal) Range: 0.358-3.74 80-Qje-314103:16 VIT D,25 97889 45.6 ng/mL (Normal) Range: 32.0-100.0 Comments: Recent studies consider the lower limit of 32.0 ng/mL to zoraida threshold for optimal health.Everardo HEREDIA. J Nutr. 2004;135(2):317-22.Performed at: - [facility] [address]Lab Director: Patito Segovia MD, Phone: [phone] 40-Ipp-754982:16 VITAMIN B12 582 pg/mL (Normal) Range: 254-1320 Comments: There is a low frequency possibility that high titers ofintrinsic blocking antibodies may not be completely inactivated during the reaction pretreatment stepof this testing method. If test results are i n conflictwith the clinical diagnosis, patient should be testedfor the presence of intrinsic factor blocking antibodies. 21-Cym-752013:20 CBCD,SMEAR DIFF PLT EST SeeNote (Normal) Comments: [...] {uIU/mL} (Normal) Range: 0.358-3.74 :20 VIT D,25 88204 43.2 ng/mL (Normal) Range: 32.0-100.0 Comments: Recent studies consider the lower limit of 32.0 ng/mL to zoraida threshold for optimal health.Mcgee BW. J Nutr. 2004;135(2):317-22.Performed at: [facility] [id number]Lab Director: Patito Segovia MD, Phone: [phone] 36-Kbc-087980:20 VITAMIN B12 516 pg/mL (Normal) Range: 254-1320 Comments: There is a low frequency possibility that high titers ofintrinsic blocking antibodies may not be completely inactivated during the reaction pretreatment stepof this testing method. If test results are i n conflictwith the clinical diagnosis, patient should be testedfor the presence of intrinsic factor blocking antibodies. :44 VIT D,25 40709 38.6 ng/mL (Normal) Range: 32.0-100.0 Comments: Recent studies consider the lower limit of 32.0 ng/mL to zoraida threshold for optimal health.Mcgee BW. J Nutr. 2004;135(2):317-22.Performed at: [facility] [address] [id number]Lab Director: Patito Segovia MD, Phone: [phone] :44 VITAMIN B12 398 pg/mL (Normal) Range: [...] intrinsic factor blocking antibodies. :24 VITD 1,25 83792 57.3 pg/mL (Normal) Range: 10.0-75.0 Comments: Performed at: [address] [id number] Director: Roderick Ramirez MD, Phone: [phone] 60-Tkp-933120:26 CBCD,SMEAR DIFF RED CELL MORPH SeeNote {NORMAL} [...] the presence of intrinsic factor blocking antibodies. 8-Pve-570619:16 MRA HEAD WITHOUT CONTRAST Radiology Report See Note (Normal) Comments: Exam Number: [id number] CLINICAL:69 year old female with numbness in [...] There is a fetalconfiguration of the right INSIDE SALES COORDINATOR. No definite P1 segment connectingthe artery to the basilar artery is identified. IMPRESSION:No demonstrated aneurysm. Anatomic variations of the alutiiq of [place]. 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 The rightinternal carotid arteries supplies the left VINAY territory, and islarger than the left internal carotid. 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 Reported By: DOMENICA MCGARRY M.D. 43-Iio-618750:41 BRAIN W/WO CONTRAST Radiology See Note Comments: Exam Number: [id number] CLINICAL: MRI BRAIN WITHOUT AND WITH CONTRAST [...] mild degenerative remodeling of the mandibular condyles.ADDENDUM: [id number] MRI/BRWW CLINICAL: MRI BRAIN WITHOUT AND WITH [...] CHOL 188 mg/dL (Normal) Comments: <200 mg/dL Yhwzdiurw322-292 mg/dL Borderline>240 mg/dL High Risk HDL 54 [...] Range: 0.358-3.74 5 (Normal) :3 VIT D,25 20664 29.3 ng/mL (Abnormal) Range: 32.0-100.0 5 Comments: Recent studies consider the lower limit of 32.0 ng/mL to zoraida threshold for optimal health.Everardo HEREDIA. J Nutr. 2004;135(2):317-22.Performed at: - [facility] [id number] [place], [place] [address] 296Lab Director: Patito Segovia MD, Phone: [phone] :[phone] VITAMIN B12 158 pg/mL (Abnormal) Range: 254-1320 5 Comments: There is a low frequency possibility that high titers ofintrinsic blocking antibodies may not be completelyinactivated during the reaction pretreatment stepof this testing method. If test results are in conflictwith the clinical diagnosis, patient should be testedfor the presence of intrinsic factor blocking antibodies. 14-Zyv-547386:17 ABDOMEN W/WO IV CONTRAST Radiology Report See Note (Normal) Comments: Exam Number: [id number] CLINICAL:Right upper quadrant pain CT ABDOMEN WITH [...] parapelvic renal cysts. Reported By: PRADIP FRANCO 25-Bws-478512:29 BMP BUN 16 mg/dL (Normal) Range: 7-18 [...] mg/dL (Normal) Range: 70-110 :37 VIT D,25 57654 26.3 ng/mL (Abnormal) Range: 32.0-100.0 Comments: Recent studies consider the lower limit of 32.0 ng/mL to zoraida threshold for optimal health.Everardo HEREDIA. J Nutr. 2004;135(2):317-22.Performed at: [address] [id number] Director: Ade Rubio MD 31-Yzm-853175:36 GALLBLADDER (HP) Radiology Report See Note (Normal) Comments: Exam Number: [id number] LIMITED ABDOMINAL ULTRASOUND FOR GALLBLADDER HISTORYChest pain. [...] kidneyis suggested. Reported By: DOMENICA GATES M.D. 0-Ftp-403375:21 Lipase (58298) Comments: PATIENT NOT FASTINGPERFORMED BY: [address] [id number] Lipase, Serum 42 U/L (Normal) Range: 0-59 7-Oyg-916877:21 Amylase (63702) Comments: PATIENT NOT FASTINGPERFORMED BY: [address] [id number] Amylase, Serum 54 U/L (Normal) Range: 31-124 3-Cwh-730234:21 CBC WITH MANUAL DIFF Comments: PATIENT NOT FASTINGPERFORMED BY: [address] [id number] Information: [id number] (20192) Baso (Absolute) 0.1 {x10E3/uL} (Normal) Range: 0.0-0.2 [...] 3.80-5.10 WBC 5.9 {x10E3/uL} (Normal) Range: 4.0-10.5 3-Pju-679999:21 METABOLIC PANEL, COMPREHENSIVE Comments: PATIENT NOT FASTINGPERFORMED BY: [facility] Center[facility]xppjw[facility]93 [facility] [id number] (76962) ALT (SGPT) 15 [iU]/L (Normal) Range: 0-40 [...] Comments: DR DAVIS ORDERED CMP,CBCMD,CAROL,RF,TSH,CRP,SED,CCP,LIPIDDR VELLANKIORDEREDCMP,CBCD,CRP,SED,VITD,CCP,HEPBSAB,HEPBSAG,HEPC,CAROL,RF,HEPBCORE IGM,[place] [id number] CAROL-DIRECT SeeNote (Normal) Comments: Result: Negative :48 ANTI-CCP 880092 4 {units} (Normal) Comments: DR DAVIS ORDERED [...] mm/h (Normal) Range: 0-30 :48 HB CORE [id number] SeeNote (Normal) Comments: DR DAVIS ORDERED CMP,CBCMD,CAROL,RF,TSH,CRP,SED,CCP,LIPIDDR VELLANKIORDEREDCMP,CBCD,CRP,SED,VITD,CCP,HEPBSAB,HEPBSAG,HEPC,CAROL,RF,HEPBCORE IGM,UA Comments: Result: Negative Performed At: [facility] [address] [place], [place] [id number] At: [facility] [address] [place], [place] [id number] :48 HBsAg Comments: DR DAVIS ORDERED CMP,CBCMD,CAROL,RF,TSH,CRP,SED,CCP,LIPIDDR [...] of antibody present. :48 HEP C AB 320742 0.1 (Normal) Comments: DR DAVIS ORDERED CMP,CBCMD,CAROL,RF,TSH,CRP,SED,CCP,LIPIDDR [...] VELLANKIORDEREDCMP,CBCD,CRP,SED,VITD,CCP,HEPBSAB,HEPBSAG,HEPC,CAROL,RF,HEPBCORE IGM,UA Range: 0.358-3.74 :48 VIT D,25 86615 18.0 ng/mL (Abnormal) Comments: DR DAVIS ORDERED CMP,CBCMD,CAROL,RF,TSH,CRP,SED,CCP,LIPIDDR VELLANKIORDEREDCMP,CBCD,CRP,SED,VITD,CCP,HEPBSAB,HEPBSAG,HEPC,CAROL,RF,HEPBCORE IGM,UA Range: 32.0-100.0 Comments: Recent studies consider the lower limit of 32.0 ng/mL to zoraida threshold for optimal health.Everardo HEREDIA. J Nutr. 2004;135(2):317-22. 6-Kfy-257020:10 [facility] DIGITAL & CAD Radiology Report See Note (Normal) Comments: Exam Number: [id number] MAMMOGRAM, BILATERAL SCREENING DIGITAL AND CAD HISTORYRoutine [...] (MQSA). The mammograms werealso examined with c [facility]-aided detection software ([employer]oon[employer].). Reported By: DOMENICA GATES M.D. 6-Ywz-733180:09 SPINE,LUMBAR (ROUTINE) Radiology Report See Note (Normal) Comments: Exam Number: [id number] CLINICAL:68-year-old female with low back pain for [...] Report See Note (Normal) Comments: Exam Number: [id number] CLINICAL DATALow back pain, flank pain, right [...] disc disea se involving multiple levels from J1tehpwnu S1. There is degenerative hypertrophic change of [...] Report See Note (Normal) Comments: Exam Number: [id number] DORSAL SPINE Three images of the dorsal [...] Culture,Comprehensive Comments: Clinical Information: SRC:UR [facility]FORMED BY: [facility] [facility] [id number] Result 1 NG36 (Normal) Comments: No growth in 36 - 48 hours. Urine Culture,Comprehensive Final report (Normal) :18 PELVIS WITHOUT IV CONTRAST Radiology Report See Note (Normal) Comments: Exam Number: [id number] CT SCANS OF ABDOMEN AND PELVIS HISTORYThe [...] Report See Note (Normal) Comments: Exam Number: [id number] CT SCANS OF ABDOMEN AND PELVIS HISTORYThe [...] the spine. Reported By: DOMENICA GATES M.D. 9-Gly-563224:1 C-REACTIVE PROT 4.05 mg/L (Abnormal) Range: 0.0-3.0 0 Comments: C-Reactive Protein (CRP) provides useful information for thediagnosis, therapy and monitoring of inflammatory processesand associated diseases. For the evaluation of Relative Riskfor Cardiovascular Dise ase, a High Sensitivity CRP (HSCRP)should be ordered. 8-Bpw-028782:10 CBCD,SMEAR DIFF ATYPICAL LYMPH 1+ % (Normal) [...] 47-70 WBC 8.2 K/mm3 (Normal) Range: 4.4-11.0 2-Vcc-083225:10 COMP METABOLIC A/G 1.4 {RATIO} (Normal) Range: [...] 6.4-8.2 GLU 84 mg/dL (Normal) Range: 70-110 8-Irs-819268:10 ESR SED RATE 14 mm/h (Normal) Range: 0-30 8-Qjk-211616:40 Urinalysis, Office (05691) UA - BILIRUBIN Negative (Normal) UA - BLOOD Non Hemolyzed Trace (Normal) UA - GLUCOSE Negative (Normal) UA - KETONES Negative mg/dL (Normal) UA - LEUKOCYTE ESTERASE Negative (Normal) Comments: aw UA - NITRITE Negative (Normal) UA - PH 6.0 (Normal) UA - PROTEIN Negative mg/dL (Normal) UA - SPECIFIC GRAVITY 1.010 (Normal) URINE UROBILINGN TUNDE TIMED Normal mg/dL (Normal) 9-Dab-811026:28 URINE CESAR CULTURE-TUNDE COL Comments: PATIENT NOT FASTINGClinical Information: SRC:UR ADD [id number] PERFORMED BY: [facility]6[address] [facility] [id number] COUNT (58319) Result 1 MUG (Normal) Comments: Mixed urogenital flora10,000-25,000 colony forming units per mL Urine Final report (Normal) Culture,Comprehensive 8-Awd-467193:09 Urinalysis, Office (93552) UA - BILIRUBIN Negative (Normal) UA - [...] mg/dL VLDL 16 mg/dL (Normal) Range: 5-40 9-Dmd-894183:59 LQD PAP [id number] Comments: CYTOLOGY INFORMATION:- CLINICAL INFORMATION: POSTMENOPAUSAL- DATE LMP/MENOPAUSE: MENOPAUSE- COLLECTION VIAL: Thin Prep Vial- LAUNCH MANAGER SOURCE: CERVICAL/ENDOCERVICAL- COLLECTION TECHNIQUE: BRUSH/SPATULA ADEQ Comment (Normal) Comments: Satisfactory for evaluation. Endocervical and/or squamous metaplasticcells (endocervical component) are present. COMM . (Normal) DIAGN Comment (Normal) Comments: NEGATIVE FOR INTRAEPITHELIAL LESION AND MALIGNANCY. HPV RFLX Comment (Normal) Comments: The HPV DNA reflex criteria were not met with this specimenresult therefore, no HPV testing was performed. .Performed At: [address] [id number] PAPSMR Comment (Normal) Comments: The Pap smear is a screening test designed to aid in thedetection of premalignant and malignant conditions of theuterine cervix. It is not a diagnostic procedure andshould not be used as the sole means of detecting cervicalcancer. Both false-positive and false-negative reports dooccur. . PERFORM Comment (Normal) Comments: Diandra Bee, Machine Programmer (ASCP) 88-Oxn-965958:36 DEXA BONE DENSITY STUDY (HP) Radiology Report See Note (Normal) Comments: Exam Number: [id number] BONE DENSITOMETRY TECHNIQUE Bone densitometry of the [...] :55 TSH 2.13 {uIU/mL} (Normal) Range: 0.34-4.82 38-Tcf-107757:12 C-REACTIVE PROT 5.51 mg/L (Normal) Range: 0.0-6.0 Comments: Test performed using the Dimension C-Reactive ProteinExtended Range assay method. This assay meets the AHA/CDC 2003 recommendations fordetermining patients at high risk for cardiovasculardisease. Reference: High risk CRP >3.0 mg/L 26-Qab-767661:12 CBCD,SMEAR DIFF BAND 1 % (Normal) Range: [...] 47-70 WBC 6.2 K/mm3 (Normal) Range: 4.4-11.0 66-Jpw-407319:12 COMP METABOLIC A/G 1.5 {RATIO} (Normal) Range: [...] T PROT 6.1 g/dL (Abnormal) Range: 6.4-8.2 14-Wrs-812622:12 FUNEZ A AB 897374 FUNEZ A TYPE 10 <1:8 (Normal) FUNEZ [...] and its performancecharacteristics have been determined by [employer]. Performance characteristics refer tothe analytical performance of the test. FUNEZ A TYPE 2 <1:8 (Normal) FUNEZ A TYPE 4 <1:8 (Normal) FUNEZ A TYPE 7 <1:8 (Normal) FUNEZ A TYPE 9 <1:8 (Normal) 41-Umj-570072:12 ESR SED RATE 14 mm/h (Normal) Range: 0-30 51-Jjv-604449:12 RA LATEX 6502 7.1 {IU/mL} (Normal) Range: 0.0-13.9 Comments: Performed At: [facility] [place], [place] [id number] At: [facility] [address] [place], [place] [id number] 19-Olj-661036:12 TSH 0.16 {uIU/mL} (Abnormal) Range: 0.34-4.82 :21 PELVIS WITH CONTRAST Radiology Report See Note (Normal) Comments: Exam Number: [id number] CT ABDOMEN AND PELVIS WITH CONTRAST. CLINICAL [...] pericardial effusion. Reported By: TODD KENNEDY M.D. 52-Dsd-290667:11 ABDOMEN WITH CONTRAST Radiology Report See Note (Normal) Comments: Exam Number: [id number] CT ABDOMEN AND PELVIS WITH CONTRAST. CLINICAL [...] pericardial effusion. Reported By: TODD KENNEDY M.D. 35-Ypm-560836:38 MARCUS 45 U/L (Normal) Range: 25-115 19-Vsw-210318:38 CBCD,SMEAR DIFF BAND 1 % (Normal) Range: [...] 47-70 WBC 5.9 K/mm3 (Normal) Range: 4.4-11.0 82-Lin-434670:38 LIPASE 190 U/L (Normal) Range: 114-286 01-Lyj-009325:45 BILAT SCRN DIGITAL & CAD Radiology Report See Note (Normal) Comments: Exam Number: [id number] MAMMOGRAM, BILATERAL SCREENING DIGITAL AND CAD HISTORYRoutine [...] werealso exam ined with computer-aided detection software (Imperator, [employer].). Reported By: DOMENICA GATES M.D. :33 CHEST W/WO CONTRAST Radiology Report See Note (Normal) Comments: Exam Number: [id number] CT SCAN OF CHEST HISTORYLung nodule. Consecutive [...] 47-70 WBC 4.2 K/mm3 (Abnormal) Range: 4.4-11.0 99-Ofs-35259:07 COMP METABOLIC A/G 1.5 {RATIO} (Normal) Range: [...] itching : [facility]: Vaginal itching Low Back Pain [...] Indication: Chest pain Chest pain : Reviewed Application Development Consultant Letter Indication: Chest pain Osteoarthritis, unspecified osteoarthritis [...] Hypercholesterolemia Planned Observations CBC W/AUTO DIFF WBC (84452)Indication: Prolonged QT interval On: 5-Wdq-356813:18 Request METABOLIC PANEL, COMPREHENSIVE (98255)Indication: Prolonged QT interval On: 7-Ztg-668425:18 Request VITAMIN B-12 (CYANOCOBALAMIN) (13587)Indication: DEFICIENCY, B-COMPLEX NEC On: 3-Cbp-567016:18 Request TSH (15731)Indication: Acquired hypothyroidism On: :17 Request LIPOPROTEIN, BLD, BY NMR (83747)Indication: Hypercholesterolemia On: :17 Request VITAMIN B-12 (CYANOCOBALAMIN) (15452)Indication: DEFICIENCY, B-COMPLEX NEC On: :18 Request LIPID PANEL (82142)Indication: Hypercholesterolemia On: :18 Request CBC W/AUTO DIFF WBC (96195)Indication: Right flank pain On: :17 Request METABOLIC PANEL, COMPREHENSIVE (62632)Indication: Right flank pain On: :17 Request Vitamin D Hydroxy (57092)Indication: Vitamin D deficiency, unspecified On: :17 Request Urinalysis, Office (62551)Indication: Urinary frequency On: 02-Elg-675222:22 Request VITAMIN B-12 (CYANOCOBALAMIN) (20733)Indication: Other vitamin B12 deficiency anemia On: :28 Request Comments: Lot:[id number]:04/29Dose:1mlRoute:IMSite:r arm Given By:TAVON signed Vitamin D Hydroxy (38262)Indication: Vitamin D deficiency, unspecified On: :42 Request LIPID PANEL (04005)Indication: Hypercholesterolemia On: :42 Request METABOLIC PANEL, COMPREHENSIVE (20439)Indication: Essential hypertension On: :36 Request TSH (03702)Indication: Acquired hypothyroidism On: :36 Request CBC with auto diff (64166)Indication: Abdominal pain, acute, right lower quadrant On: :06 Request METABOLIC PANEL, COMPREHENSIVE (22513)Indication: Abdominal pain, acute, right lower quadrant On: :06 Request Urinalysis, Office (68377)Indication: Low Back Pain (Renamed from LBP (low back pain)) On: 39-Otd-595740:09 Request Vitamin D Hydroxy (23138)Indication: Vitamin D deficiency, unspecified On: 59-Rvl-719895:32 Request METABOLIC PANEL, COMPREHENSIVE (91008)Indication: Essential hypertension On: :31 Request LIPID PANEL (27938)Indication: Hypercholesterolemia On: :31 Request TSH (42245)Indication: Acquired hypothyroidism On: :31 Request LIPID PANEL (01413)Indication: Hypercholesterolemia On: :45 Request TSH (03494)Indication: Acquired hypothyroidism On: :44 Request METABOLIC PANEL, COMPREHENSIVE (46752)Indication: Essential hypertension On: :44 Request CBC, PLATELETS & AUT DIFF (53404)Indication: DEFICIENCY, B-COMPLEX NEC On: :43 Request VITAMIN B-12 (CYANOCOBALAMIN) (09639)Indication: DEFICIENCY, B-COMPLEX NEC On: 3-Zym-775781:43 Request Vitamin D Hydroxy (64562)Indication: Vitamin D deficiency, unspecified On: :43 Request IRON (24044)Indication: Anemia On: 6-Urs-658924:42 Request Vitamin D Hydroxy (77906)Indication: Vitamin D deficiency, unspecified On: 4-Syu-175945:36 Request VITAMIN B-12 (CYANOCOBALAMIN) (21319)Indication: DEFICIENCY, B-COMPLEX NEC On: 2-Wal-039933:35 Request CBC WITH MANUAL DIFF (25980)Indication: DEFICIENCY, B-COMPLEX NEC On: 4-Oub-354441:35 Request METABOLIC PANEL, COMPREHENSIVE (19044)Indication: Essential hypertension On: 5-Obb-263855:35 Request T3, FREE (TRIDOTHYRONINE) (89943)Indication: Acquired hypothyroidism On: 3-Umt-035976:35 Request T4, FREE (86273)Indication: Acquired hypothyroidism On: 1-Izv-734550:35 Request TSH (90461)Indication: Acquired hypothyroidism On: 3-Ojb-869160:34 Request TSH (25901)Indication: Acquired hypothyroidism On: 27-Vap-575553:23 Request Comments: recheck in 6 weeks Metabolic Panel, Basic (47304)Indication: Essential hypertension On: 87-Xkg-723079:16 Request TSH ([id number])Indication: Acquired hypothyroidism On: 44-Zns-873690:22 Request C-REACTIVE PROTEIN (08843)Indication: right lower quadrant pain On: :51 Request SED RATE ERYTHROCYTE ([id number])Indication: right lower quadrant pain On: :51 Request Magnesium (24393)Indication: Leg cramps On: :43 Request CBC WITH MANUAL DIFF ([id number])Indication: Edema leg On: :42 Request LIPID PANEL (53469)Indication: Hypercholesterolemia On: :41 Request METABOLIC PANEL, COMPREHENSIVE (00278)Indication: Essential hypertension On: :41 Request VITAMIN B-12 (CYANOCOBALAMIN) (69148)Indication: Other vitamin B12 deficiency anemia On: :41 Request Vitamin D Hydroxy (52903)Indication: Vitamin D deficiency, unspecified On: :41 Request Metabolic Panel, Basic (81527)Indication: Acute renal failure, unspecified acute renal failure type On: :31 Request TSH ([id number])Indication: Acquired hypothyroidism On: :30 Request LIPID PANEL (87389)Indication: Hypercholesterolemia On: :39 Request Vitamin D Hydroxy (46749)Indication: Vitamin D deficiency, unspecified On: :39 Request VITAMIN B-12 (CYANOCOBALAMIN) (64296)Indication: Other vitamin B12 deficiency anemia On: :39 Request CBC WITH MANUAL DIFF ([id number])Indication: Other vitamin B12 deficiency anemia On: :39 Request METABOLIC PANEL, COMPREHENSIVE (66720)Indication: Essential hypertension On: :39 Request Vitamin D Hydroxy (30125)Indication: Vitamin D deficiency, unspecified On: :37 Request LIPID PANEL ([id number])Indication: Hypercholesterolemia On: :37 Request TSH ([id number])Indication: Acquired hypothyroidism On: :37 Request CBC WITH MANUAL DIFF ([id number])Indication: Essential hypertension On: :39 Request METABOLIC PANEL, COMPREHENSIVE (25615)Indication: Essential hypertension On: :39 Request VITAMIN B-12 (CYANOCOBALAMIN) (17803)Indication: b12 deficiency On: :39 Request LIPID PANEL (63307)Indication: Hypercholesterolemia On: :39 Request Vitamin D Hydroxy (69672)Indication: Vitamin D deficiency, unspecified On: :32 Request VITAMIN B-12 (CYANOCOBALAMIN) (53232)Indication: b12 deficiency On: :32 Request Vitamin D Hydroxy (55763)Indication: Vitamin D deficiency, unspecified On: :32 Request METABOLIC PANEL, COMPREHENSIVE (54702)Indication: Essential hypertension On: :32 Request LIPID PANEL ([id number])Indication: Hypercholesterolemia On: :32 Request TSH ([id number])Indication: Acquired hypothyroidism On: :32 Request CBC WITH MANUAL DIFF ([id number])Indication: Essential hypertension On: :30 Request METABOLIC PANEL, COMPREHENSIVE (44043)Indication: Essential hypertension On: :29 Request VITAMIN B-12 (CYANOCOBALAMIN) (04974)Indication: DEFICIENCY, B-COMPLEX NEC On: :29 Request Vitamin D Hydroxy (33287)Indication: Vitamin D deficiency, unspecified On: :29 Request TSH ([id number])Indication: Acquired hypothyroidism On: :29 Request LIPID PANEL ([id number])Indication: Hypercholesterolemia On: :29 Request Vitamin B-12 (cyanocobalamin) (42976)Indication: b12 deficiency On: 30-Rba-479455:01 Request CALCIFIDIOL (87704) VIT D 25Indication: Vitamin D deficiency, unspecified On: 97-Ocu-400315:00 Request TSH ([id number])Indication: Acquired hypothyroidism On: :34 Request LIPID PANEL ([id number])Indication: Hypercholesterolemia On: :34 Request Metabolic Panel, Basic (47559)Indication: Essential hypertension On: :26 Request VITAMIN B-12 (CYANOCOBALAMIN) (13920)Indication: DEFICIENCY, B-COMPLEX NEC On: :19 Request Vitamin D Hydroxy (14648)Indication: Vitamin D deficiency, unspecified On: 86-Edr-770307:19 Request VITAMIN D, 1, 25-DIHYDROXY (67585)Indication: Vitamin D deficiency, unspecified On: 5-Sac-429446:19 Request Comments: Vit D [place] Vitamin B-12 (cyanocobalamin) (72214)Indication: b12 deficiency On: 4-Ywi-607738:17 Request CBC WITH MANUAL DIFF ([id number])Indication: b12 deficiency On: 49-Khm-120304:17 Request VITAMIN B-12 (CYANOCOBALAMIN) (57394)Indication: b12 deficiency On: 23-Ebv-649263:14 Request VITAMIN B-12 (CYANOCOBALAMIN) (69402)Indication: Vitiligo On: 86-Wai-517587:37 Request LIPID PANEL ([id number])Indication: Hypercholesterolemia On: 47-Nyl-682735:33 Request TSH ([id number])Indication: Acquired hypothyroidism On: 05-Wgc-749672:32 Request Vitamin D Hydroxy (07157)Indication: Vitamin D deficiency, unspecified On: 95-Nwk-921426:31 Request METABOLIC PANEL, COMPREHENSIVE (28397)Indication: Essential hypertension On: 68-Ciy-296679:42 Request Vitamin D Hydroxy (53353)Indication: Vitamin D deficiency, unspecified On: 13-Xvu-226480:42 Request CAROL (ANTINUCLEAR ANTIBODY) ([id number])Indication: Pain in unspecified joint On: :27 Request C-REACTIVE PROTEIN ([id number])Indication: Pain in unspecified joint On: :27 Request CBC WITH MANUAL DIFF ([id number])Indication: Pain in unspecified joint On: :27 Request CCP ANTIBODY ([id number])Indication: Pain in unspecified joint On: :27 Request METABOLIC PANEL, COMPREHENSIVE (92440)Indication: Pain in unspecified joint On: : Request RHEUMATOID FACTOR-QUANT (23460)Indication: Pain in unspecified joint On: : Request SED RATE ERYTHROCYTE ([id number])Indication: Pain in unspecified joint On: :27 Request TSH ([id number])Indication: Pain in unspecified joint On: :27 Request SED RATE ERYTHROCYTE ([id number])Indication: flank pain On: :35 Request C-REACTIVE PROTEIN ([id number])Indication: flank pain On: :35 Request METABOLIC PANEL, COMPREHENSIVE ([id number])Indication: flank pain On: :35 Request CBC WITH MANUAL DIFF ([id number])Indication: flank pain On: :35 Request URINE CESAR CULTURE (TUNDE COL COUNT) ([id number])Indication: flank pain On: :35 Request Thin prep Pap ([id number])Indication: Well woman exam with routine gynecological exam On: 6-Jfl-812075:09 Request CBC WITH MANUAL DIFF ([id number])Indication: Essential hypertension On: :02 Request METABOLIC PANEL, COMPREHENSIVE (56504)Indication: Essential hypertension On: 17-Wbw-550516:02 Request LIPID PANEL ([id number])Indication: Hypercholesterolemia On: :02 Request METABOLIC PANEL, COMPREHENSIVE (47900)Indication: Essential hypertension On: 82-Xsi-740293:18 Request TSH ([id number])Indication: Acquired hypothyroidism On: 31-Pju-334574:18 Request SED RATE ERYTHROCYTE ([id number])Indication: Abdominal pain, acute, left upper quadrant On: 86-Lbg-867759:09 Request C-REACTIVE PROTEIN ([id number])Indication: Abdominal pain, acute, left upper quadrant On: 31-Esj-939211:09 Request CBC WITH MANUAL DIFF ([id number])Indication: edema On: 82-Lpu-040490:09 Request METABOLIC PANEL, COMPREHENSIVE (07517)Indication: edema On: 77-Pey-969501:09 Request TSH ([id number])Indication: Acquired hypothyroidism On: 05-Dbe-985253:03 Request CBC WITH MANUAL DIFF ([id number])Indication: Abdominal pain, acute, left upper quadrant On: 05-Svx-347431:22 Request Lipase ([id number])Indication: Abdominal pain, acute, left upper quadrant On: 37-Amc-657297:22 Request Amylase ([id number])Indication: Abdominal pain, acute, left upper quadrant On: 86-Wnt-772661:21 Request Thin prep Pap (03695)Indication: Well woman exam with routine gynecological exam On: 16-Whu-830696:43 Request HEPATIC FUNCTION PANEL (04469)Indication: Hypercholesterolemia On: 48-Ypt-584731:52 Request LIPID PANEL ([id number])Indication: Hypercholesterolemia On: 24-Sff-201597:52 Request CBC, PLATELETS & AUTO DIFF ([id number])Indication: Leukopenia On: 82-Izk-163501:34 Request Planned Encounters Medical; SANDEEP 6 Month Fu - On: 03-Jul-2018 13:00 [facility] Fast DO, Kristine A Fast DO, Kristine A Planned Procedures DEXA SCAN AXIAL SKELETON ([id number])By: On: 02-Jan-2018 Intent Fast DO, Kristine A Fast DO, Kristine A Comments: mar - RenalBy: Fast DO, On: 02-Jan-2018 Intent Kristine A Fast DO, Kristine A Flu Vaccine (Quadrivalent) 04057Cj: On: 02-Jan-2018 Intent Fast DO, Kristine A Fast DO, Kristine A Comments: Lot #[id number]-3/30/2019Site-L dltd, IMDose prefilled syringegiven by: Melly reviewed and ABN signed ELECTROCARDIOGRAM, COMPLETE (ECG) On: 28-Aug-2017 Intent (52365)By: Fast DO, Kristine A Fast Comments: ekg showed normal sinus rhythym, normal axis, no acute st/t wave changes DO, Kristine A SCREENING DIGITAL TOMOSYNTHESIS OF On: 28-Aug-2017 Intent BREAST ([id number])By: Fast DO, Kristine A Fast DO, Kristine A B 12 Injection, 1000 mcg (J3420)By: On: 15-Mar-2017 Intent Visit, Nurse Comments: [id number]/ANOOP Almodovar B 12 Injection, 1000 mcg (J3420)By: On: 22-Feb-2017 Intent Fast DO, Kristine A Fast DO, Kristine A Comments: lot: [id number]: 05/01site/route: L del/IMamt: 1mLVIS signed when applicableRAYMUNDO Huerta Flu Vaccine (Quadrivalent) 33903Ou: On: 17-Jan-2017 Intent Fast DO, Kristine A Fast DO, Kristine A Comments: Lot #:[id number] date: 08/28/17Amount given: 0.5mlRoute: IMSite given: left deltoidGiven by: AYAD Dailey B 12 Injection, 1000 mcg (J3420)By: On: 17-Jan-2017 Intent Fast DO, Rkistine A Fast DO, Kristine A Comments: Lot #:[id number] date:04/2018Amount given: 1mlRoute: IMSite given: right deltoidGiven by: AshlieAYAD B 12 Injection, 1000 mcg (J3420)By: On: 12-Dec-2016 Intent Visit, Nurse Comments: 51868/2018R arm, IM1ml, 1000mcgML, SUPERVISOR FIREARMS B 12 Injection, 1000 mcg (J3420)By: On: [...] Kristine A Fast DO, Kristine A Comments: B12lot:[id number]:ite:lt deltroute:Imdose:1mlD.AYAD Jerez B 12 Injection, 1000 mcg [...] armGiven By:TAVON signed DEXA SCAN AXIAL SKELETON ([id number])By: On: 04-Apr-2016 Intent Fast DO, Kristine A Fast DO, Kristine A MRI LUMBAR SPINE W/O CONTRAST On: 04-Apr-2016 Intent (23110)By: Fast DO, Kristine A Fast DO, Kristine [...] A ELECTROCARDIOGRAM, COMPLETE (ECG) On: 11-Dec-2015 Intent (98905)By: Fast DO, Kristine A Fast Comments: ekg showed normal sinus rhythym, normal axis, no acute st/t wave changes DO, Kristine A B 12 Injection, 1000 mcg (J3420)By: On: 11-Dec-2015 Intent Hunter Jerez Comments: B12lot:6185exp:ite:lt deltroute:IMdose:1mlD.AYAD Jerez B 12 Injection, 1000 mcg (J3420)By: On: 05-Nov-2015 Intent Hunter Jerez Comments: B12lot:6155exp:18site:lt deltroute:ImDose:1mlD.Emick, MA B 12 Injection, 1000 mcg [...] A Fast DO, Kristine A Comments: B12lot:5200exp:07/27site:lt deltroute:IMdose:1mlDEMICRancho,MA B 12 Injection, 1000 mcg (J3420)By: On: 11-May-2015 Intent Fast DO, Kristine A Fast DO, Kristine A Comments: Lot:[id number]:11/27Dose:1mlRoute:IMSite:l armGiven By:TAVON signed MAMMOGRAM, SCREENING, BOTH BREAST On: 21-Apr-2015 Intent (94074)By: Fast DO, Kristine A Fast DO, Kristine A B 12 Injection, 1000 mcg (J3420)By: On: 21-Apr-2015 Intent Fast DO, Kristine A Fast DO, Kristine A Comments: Lot:[id number]:11/27Dose:1mlRoute:IMSite:r arm Given By:TAVON signed B 12 Injection, 1000 mcg (J3420)By: On: 16-Mar-2015 Intent Fast DO, Kristine A Fast DO, Kristine A Comments: lot: [id number]: 06/27site/route: L del/IMamt: 1mLVIS signed when applicableRAYMUNDO Pichardo B 12 Injection, 1000 mcg (J3420)By: On: 09-Feb-2015 Intent Fast DO, Kristine A Fast DO, Kritsine A Comments: B12lot:[id number]:06/27site:lt deltoidroute:IMdose:1mlDEMICK, SMA B 12 Injection, 1000 mcg (J3420)By: On: 15-Jan-2015 Intent Hunter Jerez Comments: B 12Lot:[id number]:317site:lt deltoidroute:IMdose:.5mlDEMICK, SMA B 12 Injection, 1000 mcg (J3420)By: On: 10-Dec-2014 Intent Fast DO, Kristine A Fast DO, Kristine A Comments: lot [id number] - see ANOOP Mcallister CT - Abdomen & Pelvis (IV Contrast On: 16-Sep-2014 Intent Needed)By: Fast DO, Kristine A Fast DO, Kristine A B 12 Injection, 1000 mcg (J3420)By: On: 16-Sep-2014 Intent Fast DO, Kristine A Fast DO, Kristine A Comments: Lot:[id number]:11.16Route:IMSite:R deltoidDose: 1 mLgiven by: Carlita Ariza CMA [...] 1,000 mcgSite: l dltdLocation; IMby: Prevnar 13 (11805)By: Fast DO, On: 24-Mar-2014 Intent Kristine A Fast DO, Kristine A Comments: lot: [id number]: 3/16site/route: L del/IMamt: 0.5mLVIS signed when applicableRAYMUNDO Huerta Ultrasound - PelvisBy: Fast DO, On: 24-Mar-2014 Intent Kristine A Fast DO, Kristine A B 12 Injection, 1000 mcg (J3420)By: On: 24-Mar-2014 Intent Fast DO, Kristine A Fast DO, Kristine A Comments: lot: [id number]: 416site/route: R del/IMamt:1mlVIS signed when applicableChelsea, SOCIAL RESEARCH ASSISTANT B 12 Injection, 1000 mcg (J3420)By: On: 24-Feb-2014 Intent Silvia Burton LPN Comments: lot: [id number]: 4.16Dose: 1,000 mcgSite: l dltdLocation; IMby: B 12 Injection, 1000 mcg (J3420)By: On: 22-Jan-2014 Intent Fast DO, Kristine A Fast DO, Kristine A Comments: lot [id number] 08/2015location L armroute imgiven by - msmith VIS and/or ABN signed B 12 Injection, 1000 mcg (J3420)By: On: 30-Dec-2013 Intent Fast DO, Kristine A Fast DO, Kristine A Comments: lot [id number] 05/2015location L armroute imgiven by - msmithVIS [...] Fast Comments: today DO, Kristine A EKG ([id number])By: Fast DO, Kristine A On: 05-Nov-2013 Intent Fast DO, Kristine A Comments: ekg showed normal sinus rhythym, normal axis, no acute st/t wave changes B 12 Injection, 1000 mcg (J3420)By: On: 05-Nov-2013 Intent Fast DO, Kristine A Fast DO, Kristine A Comments: Lot:[id number]:11/24Dose:1mlRoute:IMSite:l armGiven By:TAVON signed PHYSICAL THERAPY EVALUATION On: 18-Oct-2013 Intent (20539)By: Aquiles Potts CNP SPECIMEN HANDLING/TRANSPORT On: 18-Oct-2013 Intent (33624)By: Aquiles Potts CNP B 12 Injection, 1000 mcg (J3420)By: On: 11-Oct-2013 Intent Aquiles Potts CNP Comments: Lot:[id number]:11/2013Dose:1mlRoute:IMSite:[place] By:TAVON signed B 12 Injection, 1000 mcg (J3420)By: On: 18-Sep-2013 Intent Fast DO, Kristine A Fast DO, Kristine A B 12 Injection, 1000 mcg (J3420)By: On: 07-Aug-2013 Intent Fast DO, Kristine A Fast DO, Kristine A Comments: lot: [id number]: ite/route: L del/IMamt: 1mLVIS signed when applicableChelsea, SOCIAL RESEARCH ASSISTANT MAMMOGRAM, SCREENING, BOTH BREASTS On: 24-Jun-2013 Intent (44506)By: Fast DO, Kristine A Fast DO, Kristine A B 12 Injection, 1000 mcg (J3420)By: On: 24-Jun-2013 Intent Fast DO, Kristine A Fast DO, Kristine A Comments: Lot:[id number]:04/28Dose:1mlRoute:IMSite:[place] By:TAVON signed B 12 Injection, 1000 mcg (J3420)By: On: 15-May-2013 Intent Visit, Nurse Comments: Lot:[id number]:01/25Dose:1mlRoute:IMSite:[place] By:TAVON signed B 12 Injection, 1000 mcg (J3420)By: On: 22-Apr-2013 Intent Fast DO, Kristine A Fast DO, Kristine A Comments: lot: [id number]: 01/25site/route: L deltoid/IMamt: 1mLVIS signed when applicableChelsea, SOCIAL RESEARCH ASSISTANT B 12 Injection, 1000 mcg (J3420)By: On: 21-Mar-2013 Intent Fast DO, Kristine A Fast DO, Kristine A Comments: see flowsheetMegan PNEUM VAC ADLT/IMUMNOSPR, SBC/INTRM On: 18-Feb-2013 Intent (58582)By: Fast DO, Kristine A Fast Comments: Lot: [id number]: 84Dfh39Xyg: 0.5mlRoute: IMSite: L deltoidGiven by: ANOOP Moralez DO, Kristine A ADMINISTRATION OF PNEUMOCOCCAL On: 18-Feb-2013 Intent VACCINE (G0009)By: Fast DO, Kristine A Fast DO, Kristine A Eprescribed prescriptions On: 18-Feb-2013 Intent (G8553)By: Deanna Michelle B 12 Injection, 1000 mcg (J3420)By: On: 02-Jan-2013 Intent Deanna Michelle Comments: lot: [id number]: 10/25site/route: L deltoid/IMamt: 1mLVIS signed when applicableChelsea, SOCIAL RESEARCH ASSISTANT B 12 Injection, 1000 mcg (J3420)By: On: [...] 08/24site/route: R deltoid/IMamt: 1mLVIS signed when applicableChelsea, SOCIAL RESEARCH ASSISTANT B 12 Injection, 1000 mcg (J3420)By: On: 28-Aug-2012 Intent Fast DO, Kristine A Fast DO, Kristine A Comments: Lot #:[id number] date:mount given:1mlRoute: IMSite given: left deltoidGiven by: AYAD Dailey B 12 Injection, 1000 mcg (J3420)By: On: 23-Jul-2012 Intent Fast DO, Kristine A Fast DO, Kristine A Comments: Lot: [id number]: 02/23Amt: 1000mcg/1mlRoute: IMSite: L Deltoid per pt [...] A Fast DO, Kristine A Comments: lot: [id number]:02/23site/route: L deltoid/IMamt: 1ccVIS signed when applicableChelsea, SOCIAL RESEARCH ASSISTANT B 12 Injection, 1000 mcg (J3420)By: On: 09-May-2012 Intent Kylee Castellon Comments: Lot:[id number]:02/2014Dose:1mlRoute:IMSite:L armGiven By:Jameson signed VENOUS DOPPLER LOWER EXTREMITY On: 18-Apr-2012 Intent (80286)By: Fast DO, Kristine A Fast DO, Kristine A Radiology - Hip - RightBy: Fast DO, On: 06-Apr-2012 Intent Kristine A Fast DO, Kristine A Comments: call results B 12 Injection, 1000 mcg (J3420)By: On: 06-Apr-2012 Intent Lisandra Chilel Comments: Lot #[id number]-40/14Site-left deltoidDose-1 mlgiven by: Omkar Rivera LPN Eprescribed prescriptions On: 06-Apr-2012 Intent (G8553)By: Lisandra Chilel Inhaler Demo (73841)By: Fast DO, On: 06-Feb-2012 Intent Kristine A Fast DO, Kristine A B 12 Injection, 1000 mcg (J3420)By: On: 06-Feb-2012 Intent Kylee Castellon Comments: Lot:[id number]:Dose:1mlRoute:IMSite:L armGiven By:TAVON signed MAMMOGRAM, SCREENING, BOTH BREASTS On: 06-Feb-2012 Intent (13105)By: Fast DO, Kristine A Fast DO, Kristine [...] 28-Sep-2011 Intent Yasmeen Rivera LPN Comments: Lot #[id number]-right deltoidDose-1 mlgiven by: Omkar Rivera LPN B 12 Injection, 1000 mcg (J3420)By: On: 05-Sep-2011 Intent Yasmeen Rivera LPN Comments: Lot #[id number]-left deltoidDose-1 mlgiven by: Omkar Rivera LPN Breast Ultrasound - LeftBy: Fast On: 15-Aug-2011 Intent DO, Kristine A Fast DO, Kristine A Comments: 6-8 weeks Breast Diagnostic - LeftBy: Fast On: 15-Aug-2011 Intent DO, Kristine A Fast DO, Kristine A Comments: 6-8 weeks INJECTION, VITAMIN B-12 On: 29-Jul-2011 Intent CYANOCOBALAMIN, UP TO 1000 MCG (Special Coverage Instructions Apply. See CIM: 45-4 and [facility]: 2049) (J3420)By: Licha Almaguer LPN Breast Ultrasound - LeftBy: Ciesa On: 22-Jun-2011 Intent Aquiles DEWEY E B 12 Injection, 1000 mcg (J3420)By: On: 22-Jun-2011 Intent Ciesa FRUIT THINNER, Judy Comments: Lot #[id number]-01/23Site-right deltoidDose-1 mlgiven by: Omkar Rivera LPN Breast Ultrasound - LeftBy: Comforta On: 22-Jun-2011 Intent ZULEIMAAquiles Comments: today if possible Breast Diagnostic - LeftBy: Ciesa On: 22-Jun-2011 Intent ZULEIMA Judy Comments: today if possible B 12 Injection, 1000 mcg (J3420)By: On: 09-May-2011 Intent Mast Phyllis MUELLER Comments: Lot #: [id number] Expiration date: 10/23Amount given: 1 mlRoute: IMSite given: left deltoidGiven by: AMI Alcarazdemand planner - Cervical SpineBy: Fast On: 13-Apr-2011 Intent DO, Kristine A Fast DO, Kristine A TD Injection , IM (00147)By: On: 13-Apr-2011 Intent Lisandra Chilel Comments: received in 2005 B 12 Injection, 1000 mcg (J3420)By: On: 29-Mar-2011 Intent Kateryna Lunsford MD Comments: Lot #[id number]-8.13Site-Left arm, IMDose 0.5mlgiven by:Татьяна B 12 Injection, 1000 mcg (J3420)By: On: 08-Feb-2011 Intent Татьяна Vera LPN Comments: Lot [id number]#Exp-7.13Site-R arm, IMDose 1mlgiven by:Татьяна DXA, BONE DENSITY, AXIAL SKELETON On: 24-Jan-2011 Intent (76765)By: Lisandra Chilel Comments: post menopausal wihtout estrogen FLU VAC, SPLIT, >3 YEARS, INTRAMUSC On: 24-Jan-2011 Intent (39328)By: Lisandra Chilel Comments: received at [facility] B 12 Injection, 1000 mcg (J3420)By: On: 21-Dec-2010 Intent Licha Almaguer LPN INJECTION, VITAMIN B-12 On: 19-Nov-2010 Intent CYANOCOBALAMIN, UP TO 1000 MCG Comments: Lot:[id number]:04/25Amt:1mlRoute:IMSite:left deltGiven By: ANOOP Sotelo (Special Coverage Instructions Apply. See CIM: 45-4 and MCM: 2049) (J3420)By: Vi Ramirez EKG (21633)By: Lisandra Chilel On: 05-Nov-2010 Intent Comments: ekg showed normal sinus rhythym, normal axis, no acute st/t wave changes MAMMOGRAM, SCREENING, BOTH BREASTS On: 05-Nov-2010 Intent (21487)By: Fast DO, Kristine A Fast DO, Krisitne A B 12 Injection, 1000 mcg (J3420)By: [...] 03-Jun-2010 Intent Yasmeen Rivera LPN Comments: Lot #[id number]-left deltoidDose-1 mlgiven by:[facility] IMMUNIZ ADMNIN, 1 VAC, SNGL/COMBO On: 19-Apr-2010 Intent (16262)By: Yasmeen Rivera LPN Comments: Lot #[id number]-1/28/02Site-left deltoidDose- 0.85mlgiven by:[facility] ZOSTER VACC, [place] (57991)By: Miguel On: 19-Apr-2010 Intent Yasmeen DAVALOS B 12 Injection, 1000 mcg (J3420)By: On: 19-Apr-2010 Intent Yasmeen Rivera LPN B 12 Injection, 1000 mcg (J3420)By: On: 22-Mar-2010 Intent Татьяна Vera LPN Comments: Lot #[id number]-/12Site-L arm, IMDose 1mlgiven by:Yasmeen MALDONADO, VITAMIN B-12 On: 25-Feb-2010 Intent CYANOCOBALAMIN, UP TO 1000 MCG Comments: injection given in left deltoid. Lot # [id number]. 1ml. Pt tolerated well. hh (Special Coverage Instructions Apply. See CIM: 45-4 and MCM: 2049) (J3420)By: Shania Rosario B 12 Injection, 1000 mcg (J3420)By: On: 25-Jan-2010 Intent Yasmeen Rivera LPN Comments: Lot #[id number]-left deltoidDose-1 mlgiven by:[facility] FLU VAC, SPLIT, >3 YEARS, INTRAMUSC On: 30-Dec-2009 Intent (93201)By: Lisandra Chilel Comments: Lot #[id number]-1/11Site-left deltoidgiven by:PRICE B 12 Injection, 1000 mcg (J3420)By: On: 30-Dec-2009 Intent Lisandra Chilel Comments: Lot #[id number]-/12Site-right deltoidDose-1 mlgiven by:PRICE Renal Duplex ScanBy: Fast DO, Kristine On: 30-Dec-2009 Intent A Fast DO, Kristine A IMMUNIZ ADMNIN, 1 VAC, SNGL/COMBO On: 30-Dec-2009 Intent (97227)By: Lisandra Chilel B 12 Injection, 1000 mcg (J3420)By: On: 14-Dec-2009 Intent Shayna Harris Comments: Lot:[id number]:12Dose:1000mcg/1mlRoute:IMSite:right deltoid Given by: AYAD Gil B 12 Injection, 1000 mcg (J3420)By: On: 26-Nov-2009 Intent Mast Phyllis MUELLER Comments: documented in flowsheet B 12 Injection, 1000 mcg (J3420)By: On: 19-Oct-2009 Intent Yasmeen Rivera LPN Comments: Lot #[id number]-04/24Site-left deltoidDose-1 mlgiven by:[facility] B 12 Injection, 1000 mcg (J3420)By: On: 13-Oct-2009 Intent Shayna Harris Comments: Lot:[id number]:04/24Dose:1000mcg/1mlRoute:imSite:right sideGiven by: AYAD Gil B 12 Injection, 1000 mcg (J3420)By: On: 06-Oct-2009 Intent Fast DO, Kristine A Fast DO, Kristine A Comments: Lot #[id number]-04/24Site-right deltoidDose- 1 mlgiven by:[facility] MRI - BrainBy: Fast DO, [...] do this week and call ressults EKG (04631)By: Fast DO, Kristine A On: 17-Dec-2008 Intent Fast DO, Kristine A Comments: ekg showed normal sinus rhythym, normal axis, no acute st/t wave changes MAMMOGRAM, SCREENING, BOTH BREASTS On: 17-Dec-2008 Intent (02960)By: Fast DO, Kristine A Fast DO, Kristine A MRI - Lumbar SpineBy: Fast DO, On: 17-Dec-2008 Intent Kristine A Fast DO, Kristine A FLU VAC, SPLIT, >3 YEARS, INTRAMUSC On: 17-Dec-2008 Intent (24230)By: Lisandra Chilel Comments: Lot #:[id number] date:mount given:0.5mlRoute: IMSite given:left deltoidGiven by: AYAD Dailey ADMINISTRATION OF INFLUENZA VIRUS On: 17-Dec-2008 Intent VACCINE (G0008)By: Lisandra Chilel CT - Abdomen & Pelvis Stone On: 18-Aug-2008 Intent ProtocolBy: Kristine Davis DO A Antwan Comments: stat -call results Cuauhtemoc MIXa A Radiology - Chest- PA and LatBy: On: 24-Mar-2008 Intent Antwan MIX Kristine A Antwan DO, Kristine A Spirometry (29805)By: Antwan MIX, On: 24-Mar-2008 Intent Kristinerafi Davis DO, Kristine A Comments: good effort and curve minimal decrease small airways ADMINISTRATION OF PNEUMOCOCCAL On: 17-Dec-2007 Intent VACCINE (G0009)By: Kristine Davis DO A Antwan MIX Kristine A PNEUM VAC ADLT/IMUMNOSPR, SBC/INTRM On: 18-Dec-2007 Intent (26632)By: Kristine Davis DO Comments: Lot #:[id number] date:08/19Amount given:0.5mlRoute: IMSite given:left deltGiven by: AYAD Dailey DO, Kristine A MAMMOGRAM, SCREENING, BOTH BREASTS On: 17-Dec-2007 Intent (57143)By: Kristine Davis DO A Antwan Comments: end of feb DO, Kristine A DXA, BONE DENSITY, AXIAL SKELETON On: 31-Oct-2007 Intent (85345)By: Kristine Davis DO A Antwan DO Kristine A Echo CompleteBy: Antwan DO, Kristine A On: 25-Jul-2007 Intent Antwan DO Kristine A Bio Z (06641)By: Antwan MIX Kristine A On: 25-Jul-2007 Intent Antwan DO Kristine A Comments: good cardiac output and no excesive gfluid EKG (47588)By: Antwan MIX Kristine A On: 25-Jul-2007 Intent Antwan DO Kristine A Comments: ekg showed normal sinus rhythym, normal axis, no acute st/t wave changes CT - Abdomen & Pelvis (IV Contrast On: 11-Jul-2007 Intent Needed)By: Adrianna Morgan DO MAMMOGRAM, SCREENING, BOTH BREASTS On: 27-Mar-2006 Intent ([id number])By: Adrianna Morgan DO Planned Medications Vitamin B-12 [...] MCG/ML Injection Solution Ordered: 22-Apr-2014 Pending Slarb SUPERVISOR FIREARMS, Silvia Vitamin B-12 1000 MCG/ML Injection Solution Ordered: 24-Mar-2014 Pending Fast DO, Kristine A Fast DO, Kristine A Vitamin B-12 1000 MCG/ML Injection Solution Ordered: 24-Feb-2014 Pending [employer]arb SUPERVISOR FIREARMS, Silvia Vitamin B-12 1000 MCG/ML Injection Solution [...] MCG/ML Injection Solution Ordered: 11-Dec-2015 Pending Emick, [place]son Vitamin B-12 1000 MCG/ML Injection Solution Ordered: 05-Nov-2015 Pending Emick, [place] Vitamin B-12 1000 MCG/ML Injection Solution Ordered: [...] MCG/ML Injection Solution Ordered: 22-Jun-2011 Pending Delroy DEWEY Judy Vitamin B-12 1000 [...] MCG/ML Injection Solution Ordered: 19-Apr-2010 Pending Radhauszti SUPERVISOR FIREARMS, Yasmeen Vitamin B-12 1000 MCG/ML Injection Solution [...] Pending Fast DO, Kristine A Fast DO, Kristien A Vitamin B-12 1000 MCG/ML Injection Solution [...] MCG/ML Injection Solution Ordered: 02-Dec-2011 Pending Lauri DAVALOSChani Vitamin B-12 1000 MCG/ML Injection Solution Ordered: [...] went well- she saw Dr Mckeon in [facility] for pain management - had inje [...] Follow up for chronic medical issues: getting maddyi sonchristina in left knee next week and is [...] procedure: (10 End: 10-Dec-2014 21:34 /19/[address] [facility] with dr Mahesh stokes) . There have been no problems with general anesthesia or blood/blood products. Prosthetics include: dentures (partial). Note for Preoperative evaluation: Lef t tka at [facility] on dec 29- Dr Stokes- [...] scleroderma, leukopenia). Note for Follow up for manganese breaker tim medical issues: Pt had colonoscopy done [...] scleroderma, leukopenia). Note for Follow up for manganese breaker tim medical issues: No routine labs done [...] scleroderma, leukopenia). Note for Follow up for manganese breaker tim medical issues: still having right lateral [...] scleroderma, leukopenia). Note for Follow up for manganese breaker tim medical issues: sdhe is losing weight [...] scleroderma, leukopenia). Note for Follow up for manganese breaker tim medical issues: feels well other than [...] scleroderma, leukopenia). Note for Follow up for manganese breaker tim medical issues: No routine labs done [...] medical issues: she saw Jessee Stringer at [facility] for her groin pain- - said [...] the rare occ that she takes at [facility] but doesnt know accuracy, [ADDITIONAL REASON] [...]
--- OUTSIDE RECORDS SUMMARY | 2018-06-01 23:42 | XMS RPT_ITS | Continuity of Care Document ---
:1940 Author Organization [facility] Address [address] [facility] [address] [place] [address] Phone Care Team Providers Name Role Phone [...] DO, Kristine A Start : 02-Mar-2016 Active Comments:[facility] report#[id number], df approved and given to pt-jf 03/02/16 Imipramine HCl 25 MG Oral Tablet 1 (one) Tablet qhs prn for 0 days Quantity: 30 {Tablet} Refills: 1 Ordered:14-Jul-2017 Fast DO, Kristine AFast DO, Kristine A Start : 14-Jul-2017 Active Comments:verbally called to [facility] - cmanchak 5/4 Leg Cramps 7 to [...] cap daily (100 MG) Active Vitamin D3 46344 UNIT Oral Capsule 1 (one) Capsule once [...] : 11-Jul-2007 End : 08-Aug-2007 Discontinued Drisdol 40820 UNIT Oral Capsule 1 (one) Capsule once [...] Chilel End : 08-Aug-2007 Discontinued VITAMIN D, 19059XBFZ (Oral Capsule) 1 cap q week (58965 UNIT) Start : 27-Mar-2013 End : 27-Mar-2013 Discontinued Comments:This order discontinued per [employer]. VITAMIN D, 37399RXLI (Oral Capsule) 1 cap Capsule q week [...] and Bladder Result: Comments: See Note; NOTES: [facility] Imaging Services [address] [place] [address] Kidney and Bladder MR#: [id number] Acct: [id number] Name: VIRGINIA URRUTIA Rep #: [id number] : 1940 F 77 From: Doug Sinclair DO PCP: Kristine Davis DO Status: REG CLI Study: Kidney and Bladder Date of Exam: 01/11/18 Exam# [id number] Ordering Dr: Kristine Davis DO STUDY: RENAL [...] Doug Sinclair DO at 23:00 EDT Tel [phone], Service support , CC: Kristine Davis DO Cargo Services Coordinator: Signed 11-Jan-2018 Kidney and Bladder Result: Comments: See Note; NOTES: [facility] Imaging Services [address] [place] [address] Kidney and Bladder MR#: [id number] Acct: [id number] Name: VIRGINIA URRUTIA Rep #: [id number] : 1940 F 77 From: Doug Sinclair DO PCP: Kristine Davis DO Status: REG CLI Study: Kidney and Bladder Date of Exam: 01/11/18 Exam# [id number] Ordering Dr: Kristine Davis DO ADDENDUM by Doug Sinclair DO on at 1954 ADDENDUM ADDENDUM: Comparison is made with October 07, 2013 renal ultrasound. The right re na l cystic lesions appear stable. New left renal cyst. Findings in the urinary bladder are new since the previous study. Electronically Signed: Doug Sinclair DO at 19:55 EST Tel [phone], [employer] support , 01/22/181954 Date cc: Kristine Davis [...] Doug Sinclair DO at 23:00 EDT Tel [phone], Service support [phone]- [phone], CC: Kristine Davis DO Cargo Services Coordinator: Signed 05-Oct-2017 TXT - Blood Flow Screening Result: Comments: See Note; NOTES: [facility] Cardiovascular Services [address] [place] [address] 10/02/17 0928 MR#: [id number] Acct: [id number] Name: VIRGINIA URRUTIA Rep #: [id number] [...] Date Dictated: 10/02/17 0928 Date Transcribed: 10/05/171656 Cargo Services Coordinator: Signed 02-Oct-2017 SCREENING MAMM (CAD), BILAT Result: Comments: See Note; NOTES: [facility] Imaging Services [address] [place] [address] SCREENING MAMM (CAD), BILAT MR#: [id number] Acct: [id number] Name: URRUTIAVIRGINIA Rep #: [id number] : 1940 F 76 From: Noel Avitia MD PCP: Kristine Davis DO Status: REG CLI Study: SCREENING MAMM (CAD), BILAT Date of Exam: 10/02/17 Exam# [id number] Ordering Dr: Kristine Davis DO MAMMOGRAPHY - [...] Service support , CC: Kristine Davis DO Cargo Services Coordinator: Signed 14-Sep-2016 Venous Duplex Lower Extremity Result: Comments: See Note; NOTES: [facility] Cardiovascular Services [address] [place] [address] Venous Duplex US, Unilateral 09/14/16 1558 MR#: [id number] Acct: [id number] Name: JUNIOR YEHGRIFFIN Delvalle Rep #: [id number] : 1940 75 From: Johan Ortega MD [...] Date Dictated: 09/14/16 1558 Date Transcribed: 09/14/161714 Cargo Services Coordinator: Signed 23-Aug-2016 Re-Evaluation - PT (1) Result: Comments: See Note; NOTES: [facility] Physical Therapy [address] [place] [address] Fax REEVALUATION / MEDICARE RUPALRTI MATTHIAS Zamora 4d PHYSICAL THERAPY MR#: [id number] Acct: [id number] Name: VIRGINIA URRUTIA Rep #: [id number] : 1940 75 From: Humberto Aguilar DPT, OCS, CSCS Referring Dr.: OUT OF TOWN DOCTOR Status : REG RCR [facility] Out of [facility] Doctor, It has been my pleasure [...] do not hesitate to contact me at [phone] by phone or if you have questions or concerns regarding this new plan of care! Sincerely, Humberto Aguilar DPT, JEREMY <Electronically signed by PACHECO Delacruz DPT, CSCS> 08/23/16 0929 CC: Kristine Davis DO; OUT [facility] DOCTOR EBG Signed For Medicare only, by signing this I certify the plan of care. Physicians Signature Date 29-Jul-2016 Inital Evaluation (1) - PT Result: Comments: See Note; NOTES: [facility] Physical Therapy [address] [place], [place] [address] Fax REHABILITATION SERVICES INITIAL EVALUATION MR#: [id number] Acct: [id number] Name: VIRGINIA URRUTIA Rep #: [id number] : 1940 75 From: Humberto Aguilar DPT, PACHECO, CSCS Referring DrDav: OUT OF TOWN DOCTOR Status: REG RCR Insurance: [facility] Patient's Visit Information VIRGINIA URRUTIA is a 75 year old F referred to Physical Therapy by Out [facility] Doctor with a diagnosis of L knee [...] to be FAXED BACK to us at [phone] for Medica re purposes. Please let me [...] Department Summary Result: Comments: See Note; NOTES: [facility] Medical Records Department [address] [place] [address] Emergency Department Summary MR#: [id number] Acct: [id number] Name: VIRGINIA URRUTIA Rep #: [id number] : 1940 75 From: Byron Harris MD [...] C: Kristine Davis DO T: NTS JOB: [id number] 04/19/16 1814 <Electronically signed by Byron Harris MD> Date Byron Harris MD Cosigner Signature (If Indicated): Date CC: Kristine Davis DO Date Dictated: 04/15/1634 Date Transcrib ed: 04/15/1634 Cargo Services Coordinator: Signed 15-Apr-2016 Discharge Instruction Result: Comments: See Note; NOTES: [facility] Medical Records Department [address] [place] [address] Discharge Instruction 04/14/16 2307 MR#: [id number] Acct: [id number] Name: JUNIOR URRUTIAGRIFFIN Delvalle Rep #: [id number] : 1940 75 From: Byron Harris MD [...] your Primary Care Provider. Call [facility] ([phone]) or report to the closest Emergency Room. Call 911 if necessary. 04/15/16 0118 &#6 0;Electronically signed by Byron Harris MD> Date Byron Harris MD Cosigner Signature (If Indicated): Date CC: Kristine Davis DO 14-Apr-2016 Venous Duplex Imag/Limited/Uni Result: Comments: See Note; NOTES: [facility] Imaging Services [address] [place] [address] Verdana 4d Venous Duplex Imag/Limited/Uni MR#: [id number] Acct: [id number] Name: GHADARHONA Rep #: [id number] : 1940 F 75 From: Doug Sinclair DO PCP: Kristine Davis DO Status: REG ER Study: Venous Duplex Imag/Limited/Uni Date of Exam: 04/14/16 Exam# [id number] Ordering Dr: Byron Harris MD STUDY: VENOUS [...] Doug Sinclair DO at 23:15 EST Tel [phone], Service support [phone], CC: Kristine Davis DO; Byron Harris MD Cargo Services Coordinator: Signed 13-Apr-2016 Spine Lumbar (Routine) Result: Comments: See Note; NOTES: [facility] Imaging Services [address] [place] [address] Verdana 4d Spine Lumbar (Routine) MR#: [id number] Acct: [id number] Name: VIRGINIA URRUTIA Kelly mortensen #: [id number] : 1940 F 75 From: Tiara Parsons MD PCP: Kristine Davis DO Status: REG CLI Study: Spine Lumbar (Routine) Date of Exam: 04/13/16 Exam# [id number] Ordering Dr: Kristine Davis DO STUDY: MRI [...] MD at 11:48 EST , Service support [phone], CC: Kristine Davis DO Cargo Services Coordinator: Signed 12-Apr-2016 PT D/C Summary (1) Result: Comments: See Note; NOTES: [facility] Physical Therapy [facility] [address] [place] [address]. [address] [place], [place] [address] Fax REHABILITATION SERVICES [facility] SUMMARY MR#: [id number] Acct: [id number] Name: VIRGINIA URRUTIA Rep #: [id number] : 1940 75 From: Humberto Aguilar DPT, OCS, CSCS Referring : Kristine Davis DO Status: REG R Insurance: [facility] - PT D/C Summary It has been my pleasure to treat VIRGINIA URRUTIA under orders from Kristine Davis DO, for the diagnosis of R hip pain for a total of 12 visit(s). Discharge Date: Please see the davidcounts include 234 beds at the [facility] information for a summary of their [...] help or hurt it. Will be in [place] in May and will have L TKA [...] please feel free to call me at [phone]. Thank eric laureano for the referral of this patient. Sincerely, Humberto Aguilar DPT, OC <Electronically signed by Humberto Aguilar DPT, OCS, CSCS> 04/12/16 1621 CC: Kristine Davis DO EBG Signed 12-Apr-2016 Dexa Bone Density Study () Result: Comments: See Note; NOTES: [facility] Imaging Services [address] [place] [address] Verdaclinton 4d Dexa Bone Density Study (HP) MR#: [id number] Acct: [id number] Name: ENE URRUTIA Rep #: [id number] : 1940 F 75 From: Dashawn Rowe MD PCP: Kristine Davis DO Status: REG CLI Study: Dexa Bone Density Study () Date of Exam: 04/12/16 Exam# [id number] Ordering Dr: Magallanes DO STUDY: DUAL ENERGY [...] Dashawn Rowe MD at 14:32 EST Tel [phone], Service support [phone], CC: Kristine Davis DO Cargo Services Coordinator: Signed 10-Mar-2016 Inital Evaluation (1) - PT Result: Comments: See Note; NOTES: [facility] Physical Therapy [facility] [address] [place] [address]. [address] [place] [address] Fax REHABILITATION SERVICES INITIAL EVALUATION MR#: [id number] Acct: [id number] Name: VIRGINIA URRUTIA Rep #: [id number] : 1940 75 From: Jennifer Gongora DPT Referring Dr.: Kristine Davis DO Status: REG R Insurance: [facility] Visit Information VIRGINIA URRUTIA is a [...] to be FAXED BACK to us at [phone] for Medicare purposes. Please let me know if there are questio ns or concerns regarding this plan of care. Physician Signature: Date: <Electronically signed by Jennifer Gongora DPT> 1243 CC: Kristine Davis DO ELR Signed For Medicare only, by signing this I certify the plan of care. Physicians Signature Date 17-Dec-2015 Echocardiogram Complete Result: Comments: See Note; NOTES: [facility] Cardiovascular Services [address] [place] [address] Echo Complete 12/17/15 1401 MR#: [id number] Acct: [id number] Name: VIRGINIA URRUTIA Rep #: [id number] : 1940 75 From: Chicho Bahena MD Attending Dr: Kristine Davis DO Status: REG CLI Ordering Dr: Kristine Davis DO Date: 12/17/15 Location: [facility] Sex: F C Admitted: Reason For Study: [...] Date Dictated: 12/17/15 1401 Date Transcribed: 12/17/151700 Cargo Services Coordinator: Signed 11-Dec-2015 Bilat Scrn Digital AND CAD Result: Comments: See Note; NOTES: [facility] Imaging Services [address] [place] [address] Verdana 4d Bilat Scrn Digital AND CAD MR#: [id number] Acct: [id number] Name: VIRGINIA URRUTIA Rep #: [id number] : 1940 F 75 From: Dashawn Rowe MD PCP: Kristine Davis DO Status: REG CLI Study: Bilat Scrn Digital AND CAD Date of Exam: 12/11/15 Exam# [id number] Ordering Dr: Kristine Davis DO MAMMOGRAPHY - [...] delay biopsy of a clinically suspicious abnormality. [id number] Electronically Signed: Dashawn Rowe MD at 8:47 EDT Tel [phone], Service support [phone], CC: Kristine Davis DO Cargo Services Coordinator: Signed 03-Jan-2015 Emergency Department Summary Result: Comments: See Note; NOTES: [facility] Medical Records Department [address] [place] [address] Emergency Department Summary MR#: [id number] Acct: [id number] Name: URRUTIAVIRGINIA DUBOSE Mook Rep #: [id number] : 1940 74 From: Ivette Cline PCP: [...] Angel Grossman C: Kristine Davis DO T: [facility] JOB: [id number] 01/03/15 7085 <Electronically signed Marija Cline > Date Ivette Cline Cosigner Signature (If Indicated): Date CC: Kristine Davis DO Date Dictated: 12/27/141108 Date Transcribed: 12/27/141108 Cargo Services Coordinator: Signed 27-Dec-2014 Discharge Instruction Result: Comments: See Note; NOTES: [facility] Medical Records Department [address] [place] [address] Discharge Instruction 12/27/14 1100 MR#: [id number] Acct: [id number] Name: VIRGINIA URRUTIA Rep #: [id number] : 1940 74 From: Ivette Cline PCP: [...] any unexpected problems, contact your doctor. Call [employer] Registry ([phone]) or report to the closest Emergency Room. Call 911 if necessary. 12/27/141105 <Electronically signed by Ivette Cline > Date Ivette Cline Cosigner Signature (If Indicated): Date _ CC: Kristine Davis DO 27-Dec-2014 Spine Cervical without Contras Result: Comments: See Note; NOTES: [facility] Imaging Services [address] [place] [address] Verdana 4d Spine Cervical without Contras MR#: [id number] Acct: [id number] Na me: VIRGINIA URRUTIA Rep #: [id number] : 1940 F 74 From: Doug Sinclair DO PCP: Kristine Davis DO Status: REG ER Study: Spine Cervical without Contras Date of Exam: 12/27/14 Exam# [id number] Ordering Dr : Ivette Cline STUDY: CT [...] Doug Sinclair DO at 10:36 EDT Tel [phone], Service suppo rt [phone], CC: Ivette Cline; Kristine Davis DO Cargo Services Coordinator: Signed 23-Dec-2014 Emergency Department Summary Result: Comments: See Note; NOTES: [facility] Medical Records Department [address] [place] [place] [address] Emergency Department Summary MR#: [id number] Acct: [id number] Name: VIRGINIA URRUTIA Rep #: [id number] : 1940 74 From: Se Dawkins MD [...] acute. Se Dawkins MD T: NTS JOB: [id number] 12/23/14 0800 <Electronically signed by Se Dawkins MD> Date Se Dawkins MD Cosigner Signature (If Indicated): Date CC: Kristine Davis DO Date Dictated: 12/23/14707 Date Transcribed: 12/23/14707 Cargo Services Coordinator: Signed 23-Dec-2014 Discharge Instruction Result: Comments: See Note; NOTES: [facility] Medical Records Department [address] [place] [place] [address] Discharge Instruction 12/23/14704 MR#: [id number] Acct: [id number] Name: VIRGINIA URRUTIA Rep #: [id number] : 1940 74 From: Se Dawkins MD [...] problems, contact your doctor. Call [facility] ([phone]) or r eport to the closest Emergency Room. Call 911 if necessary. 12/23/14705 <Electronically signed by Se Dawkins MD> Date Se collins MD Cosigner Signature (If Indicated): Date CC: Kristine Davis DO 10-Dec-2014 ELECTROCARDIOGRAM, COMPLETE (ECG) (39291) Result: [MEASUREMENTS ANALYSIS] Date of Test: 12/10/2014 10:23:24; Heart Rate: 91; AR Interval: 144; QRS: 96; QT Interval: 372; Corrected QT Interval (QTc): 426; P Wave Milton: 49; QRS Wave Milton: 35; T Wave Milton: 30; Blood Pressure: 0/0 [ECG DIAGNOSTIC STATEMENTS] Date of Test: 12/10/2014 10:23:24; Summary: Sinus Rhythm Low voltage in limb leads. ABNORMAL 22-Sep-2014 Abdomen/Pelvis WITH Contrast Result: Comments: See Note; NOTES: [facility] Imaging Services [address] [place] [address] CAT Scan Report MR#: [id number] Acct: [id number] Name: VIRGINIA URRUTIA Rep #: [id number] : 1940 F 73 From: Rey Rojo MD PCP: Kristine Davis DO Status: REG CLI Study: Abdomen/Pelvis WITH Contrast Date of Exam: 09/22/14 Exam# [id number] Ordering Dr: Kristine Davis DO STUDY : [...] Rojo MD at 16:58 EDT Te l [phone], Service support [phone], CC: Kristine Davis DO Cargo Services Coordinator: Signed 31-Mar-2014 Transvaginal Non- Result: Comments: See Note; NOTES: [facility] Imaging Services [address] [place] [address] Ultrasound Report MR#: [id number] Acct: [id number] Name: VIRGINIA URRUTIA Rep #: [id number] : 1940 F 73 From: Dashawn Rowe MD PCP: Kristine Davis DO Status: REG CLI Study: Transvaginal Non- Date of Exam: 03/31/14 Exam# [id number] Ordering Dr: Kristine Davis DO STUD Y: [...] Dashawn Rowe MD at 13:55 EST Tel [phone], Service support [phone], F ax [phone] CC: Kristine Davis DO Cargo Services Coordinator: Signed 31-Mar-2014 Pelvic (Non ) Result: Comments: See Note; NOTES: [facility] Imaging Services [address] [facility] [place] [address] Ultrasound Report MR#: [id number] Acct: [id number] Name: VIRGINIA URRUTIA Rep #: [id number] : 1940 F 73 From: Dashawn Rowe MD PCP: Kristine Davis DO Status: REG CLI Study: Pelvic (Non ) Date of Exam: 03/31/14 Exam# [id number] Ordering Dr: Kristine Davis DO STUDY: U [...] Dashawn Rowe MD at 13:55 EST Tel [phone], Service support [phone], Fax CC: Kristine Davis DO Cargo Services Coordinator: Signed 22-Jan-2014 Laverne Esparza Digital & CAD Result: Comments: See Note; NOTES: [facility] Imaging Services [address] [place] [address] Breast Imaging Report MR#: [id number] Acct: [id number] Name: VIRGINIA URRUTIA Rep #: [id number] : 1940 F 73 From: Dashawn Rowe MD PCP: Kristine Davis DO Status: REG CLI Exam# [id number] Ordering Dr: Kristine Davis DO MAMMOGRAPHY - [...] Dashawn Rowe MD at 14:49 EST Tel [phone], Ser vice support [phone], CC: Kristine Davis DO Cargo Services Coordinator: Signed 07-Nov-2013 L/S Spine Min 4 Views Result: Comments: See Note; NOTES: [facility] Imaging Services [address] [place] [address] Radiology Report MR#: [id number] Acct: [id number] Name: VIRGINIA URRUTIA Rep #: [id number] : 1940 F 73 From: Tod Lamas MD PCP: Kristine Davis DO Status: REG CLI Study: L/S Spine Min 4 Views Date of Exam: 11/07/13 Exam# [id number] Ordering Dr: Kristine Dvais DO STUDY: X-RA Y - LUMBAR SPINE [...] at 18:52 EDT Tel , Service support [phone], CC: Kristine Davis DO Cargo Services Coordinator: Signed 07-Nov-2013 Thoracic Spine 3 Views Result: Comments: See Note; NOTES: [facility] Imaging Services [address] [place] [place] [address] Radiology Report MR#: [id number] Acct: [id number] Name: VIRGINIA URRUTIA Rep #: [id number] : 1940 F 73 From: Tod Lamas MD PCP: Kristine Davis DO Status: REG CLI Study: Thoracic Spine 3 Views Date of Exam: 11/07/13 Exam# [id number] Ordering Dr: Kristine Davis DO STUDY: X-R [...] at 17:07 EDT Tel , Service support [phone], CC: Kristine Davis DO Cargo Services Coordinator: Signed 05-Nov-2013 Abdomen/Pelvis without Cont Result: Comments: See Note; NOTES: [facility] Imaging Services [address] [place] [address] CAT Scan Report MR#: [id number] Acct: [id number] Name: VIRGINIA URRUTIA Rep #: [id number] : 1940 F 73 From: Dashawn Rowe MD PCP: Kristine Davis DO Status: REG CLI Study: Abdomen/Pelvis without Cont Date of Exam: 11/05/13 Exam# [id number] Ordering Dr: Kristine Davis DO STUD Y: [...] Dashawn Rowe MD at 15:39 EDT Tel [phone], Service supp ort [phone], CC: Kristine Davis DO Cargo Services Coordinator: Signed 07-Oct-2013 Kidney and Bladder Result: Comments: See Note; NOTES: [facility] Imaging Services [address] [place] [address] Ultrasound Report MR#: [id number] Acct: [id number] Name: VIRGINIA URRUTIA Rep #: [id number] : 1940 F 72 From: Brook Cummings DO PCP: Kristine Davis DO Status: REG CLI Study: Kidney and Bladder Date of Exam: 10/07/13 Exam# [id number] Ordering Dr: Aquiles Potts STUDY: RENAL ULTRAS [...] at 23:16 EDT Tel , Service support [phone], CC: Aquiles Potts; Kristine Davis DO Cargo Services Coordinator: Signed Immunization Name Dates Details Influenza (3 years and up) on: 17-Dec-2008 Comments: Lot #:[id number] date:mount given:0.5mlRoute: IMSite given:left deltoidGiven by: AYAD [...] smoker Vital Signs Date Test Result Details 69-Lkv-054715:07 Temperature 97.9 f Comments: Method: Temporal Pulse [...] kg/m2 Body Surface Area Calculated 2.08 m2 23-Frm-671839:00 Temperature 97.4 f Comments: Method: Temporal Pulse [...] 0.00 cm Results Date Description Value Details 71-Oid-829955:12 ANGTENSIN 1-CONVRT ENZYM Comments: PATIENT NOT FASTINGPERFORMED BY: [employer] [facility] [id number] BY: [employer] [id number] (94645) YOSEF 30 U/L (Normal) Range: 14-82 22-Nvg-752983:12 CCP ANTIBODY (00118) Comments: PATIENT NOT FASTINGPERFORMED BY: [employer] [facility] [id number] BY: [employer] [id number] CCP Antibodies IgG/IgA 8 {units} (Normal) Range: 0-19 Comments: Negative <20 Weak positive 20 - 39 Moderate positive 40 - 59 Strong positive >59 09-Kpo-226090:12 CAROL (ANTINUCLEAR ANTIBODY) Comments: PATIENT NOT FASTINGPERFORMED BY: [employer] [facility] [id number] BY: [employer] [id number] (47578) CAROL Direct Negative (Normal) 37-Hnm-549768:12 RHEUMATOID FACTOR-QUANT Comments: PATIENT NOT FASTINGPERFORMED BY: [address] [id number] BY: [address] [id number] (27561) RA Latex Turbid. <10.0 {IU/mL} (Normal) Range: 0.0-13.9 32-Sji-906465:12 SED RATE ERYTHROCYTE Comments: PATIENT NOT FASTINGPERFORMED BY: [address] [id number] BY: [address] [id number] (82793) Sedimentation Rate-Westergren 15 mm/h (Normal) Range: 0-40 85-Unh-519441:12 C-REACTIVE PROTEIN Comments: PATIENT NOT FASTINGPERFORMED BY: [place] [id number] [facility] [id number] BY: [address] [id number] (73949) C-Reactive Protein, Quant 2.9 mg/L (Normal) Range: 0.0-4.9 25-Lst-854060:12 CBC, PLATELETS & AUT DIFF Comments: PATIENT NOT FASTINGPERFORMED BY: [address] [id number] BY: [address] [id number] (66672) Immature Grans (Abs) 0.0 {x10E3/uL} (Normal) Range: [...] 3.77-5.28 WBC 7.8 {x10E3/uL} (Normal) Range: 3.4-10.8 60-Nnz-757734:12 VITAMIN B-12 Comments: PATIENT NOT FASTINGPERFORMED BY: [employer] [facility] [id number] BY: [employer] [id number] (CYANOCOBALAMIN) (22099) Vitamin B12 579 pg/mL (Normal) Range: 232-1245 27-Hlk-44793:31 LIPID PANEL (38899) Comments: PATIENT WAS FASTINGPERFORMED BY: FangcangRobert Wood Johnson University Hospital at RahwayVpdium1876 [facility] [id number]; appt 01/02 LDL/HDL Ratio 1.9 {ratio} (Normal) [...] be changing to: Male Female 40 - 294187 50 - 267613 Triglycerides 145 mg/dL (Normal) Range: 0-149 Cholesterol, Total 240 mg/dL (Abnormal) Range: 100-199 99-Ier-31006:31 METABOLIC PANEL, COMPREHENSIVE Comments: PATIENT WAS FASTINGPERFORMED BY: LISBETH [employer] [facility] [id number] (01186) ALT (SGPT) 16 [iU]/L (Normal) Range: 0-32 [...] 8-27 Glucose 98 mg/dL (Normal) Range: 65-99 98-Aoy-303122:13 METABOLIC PANEL, BASIC Comments: PATIENT NOT FASTINGPERFORMED BY: LISBETH [employer]6370 [facility] [id number]; review on 01/02 (97126) Calcium 9.9 mg/dL (Normal) Range: 8.7-10.3 Carbon [...] 8-27 Glucose 98 mg/dL (Normal) Range: 65-99 23-Uar-188943:38 GGT (Gamma Glutamyl Comments: PATIENT NOT FASTINGPERFORMED BY: [employer] [facility] [id number] Transferase) (67942) GGT 20 [iU]/L (Normal) Range: 0-60 98-Wtk-310761:38 Alkaline Phosphatase (78747) Comments: PATIENT NOT FASTINGPERFORMED BY: [employer] [facility] [id number] Alkaline Phosphatase 131 [iU]/L (Abnormal) Range: 39-117 75-Wlz-649166:38 THYROXINE FREE (20797) Comments: PATIENT NOT FASTINGPERFORMED BY: [facility] Cuokeu2021 [facility] [id number] T4,Free(Direct) 1.92 ng/dL (Abnormal) Range: 0.82-1.77 31-Xpw-498961:38 FREE TRIDOTHYRONINE (T3) (55662) Comments: PATIENT NOT FASTINGPERFORMED BY: [facility] Hsrcvv1855 [facility] [id number] Triiodothyronine,Free,Serum 2.4 pg/mL (Normal) Range: 2.0-4.4 32-Ztr-422594:38 VITAMIN B-12 (CYANOCOBALAMIN) Comments: PATIENT NOT FASTINGPERFORMED BY: [facility] Epom [facility] [id number] (38334) Vitamin B12 665 pg/mL (Normal) Range: 232-1245 21-Isi-61218:06 VITAMIN B-12 (CYANOCOBALAMIN) Comments: PATIENT NOT FASTINGPERFORMED BY: [facility]6370 [facility] [id number] (41774) Vitamin B12 1301 pg/mL (Abnormal) Range: 232-1245 2-Nkp-259806:25 Metabolic Panel, Comprehensive Comments: PATIENT NOT FASTINGPERFORMED BY: [facility]6370 [facility] [id number]; review on 08/28 (29483) ALT (SGPT) 10 [iU]/L (Normal) Range: 0-32 [...] 8-27 Glucose 84 mg/dL (Normal) Range: 65-99 4-Frv-513125:25 CBC WITH MANUAL DIFF (92366) Comments: PATIENT NOT FASTINGPERFORMED BY: CardiosonicRobert Wood Johnson [facility] Hospital at RahwaySdqbyc0995 [facility] [id number] Immature Grans (Abs) 0.0 {x10E3/uL} (Normal) Range: [...] 3.77-5.28 WBC 7.9 {x10E3/uL} (Normal) Range: 3.4-10.8 2-Yxq-542447:59 METABOLIC PANEL, COMPREHENSIVE Comments: PATIENT NOT FASTINGPERFORMED BY: [employer]6370 [facility] [id number] (65456) ALT (SGPT) 10 [iU]/L (Normal) Range: 0-32 [...] 88 mg/dL (Normal) Range: 65-99 :46 TSH (58880) Comments: 6 weeks; PATIENT NOT FASTINGPERFORMED BY: [facility] Appvlh8100 [facility] [id number] TSH 2.420 {uIU/mL} (Normal) Range: 0.450-4.500 :23 LIPID PANEL (50680) Comments: PATIENT WAS FASTINGPERFORMED BY: CardiosonicRobert Wood Johnson [facility] Hospital at RahwayVcvkkh5148 [facility] [id number] LDL/HDL Ratio 1.6 {ratio_units} (Normal) Range: 0.0-3.2 Comments: LDL/HDL Ratio Men Women 1/2 Avg.Risk 1.0 1.5 Av g.Risk 3.6 3.2 2X Avg.Risk 6.2 5.0 3X Avg.Risk 8.0 6.1 LDL Cholesterol Calc 125 mg/dL (Abnormal) Range: 0-99 VLDL Cholesterol Meliton 25 mg/dL (Normal) Range: 5-40 HDL Cholesterol 78 mg/dL (Normal) Triglycerides 124 mg/dL (Normal) Range: 0-149 Cholesterol, Total 228 mg/dL (Abnormal) Range: 100-199 21-Txj-70244:23 METABOLIC PANEL, COMPREHENSIVE Comments: PATIENT WAS FASTINGPERFORMED BY: [facility] Vpwmii8611 [facility] [id number] (81679) ALT (SGPT) 15 [iU]/L (Normal) Range: 0-32 [...] Range: 65-99 :23 CBC W/AUTO DIFF WBC (34996) Comments: PATIENT WAS FASTINGPERFORMED BY: [facility] Paocjh3883 [facility] [id number] Immature Grans (Abs) 0.0 {x10E3/uL} (Normal) Range: [...] (Normal) Range: 3.4-10.8 :23 Vitamin D Hydroxy (73909) Comments: PATIENT WAS FASTINGPERFORMED BY: LabCoMemorial Medical CenterAvaplg4992 [facility] [id number] Vitamin D, 25-Hydroxy 41.5 ng/mL (Normal) Range: 30.0-100.0 Comments: Vitamin D deficiency has been defined by the [place] of[place]icine and an Endocrine Society practice guideline as alevel of serum 25-OH vitamin D less than 20 ng/mL (1,2).The Endocrine Society went on to further define vitamin Dinsufficiency as a level between 21 and 29 ng/mL (2).1. IOM ([place] of [employer]). 2010. Dietary reference intakes for calcium and D. [place]: The National Academies Press.2. Seng MF, Theresa ROMERO, Kieran KOWALSKI, et al. Evaluation, treatment, and prevention of vitamin D deficiency: an Endocrine Society clinical practice guideline. JCEM. 2010; 96(7):1911-30. :23 TSH (98367) Comments: PATIENT WAS FASTINGPERFORMED BY: [facility] Yomyun8135 Oliva RoadDublin [place] [id number] TSH 0.429 {uIU/mL} (Abnormal) Range: 0.450-4.500 :23 VITAMIN B-12 (CYANOCOBALAMIN) Comments: PATIENT WAS FASTINGPERFORMED BY: CB [facility] Cymegw9381 [address] [facility] HospitalDublin [place] [id number] (59162) Vitamin B12 553 pg/mL (Normal) Range: 211-946 7-Yvq-298146:52 CBC, PLATELETS & MANUAL DIFF Comments: PATIENT NOT FASTINGPERFORMED BY: [facility] Jbupjg5396 [address] [facility] HospitalDublin [place] [id number] (31400) Immature Grans (Abs) 0.0 {x10E3/uL} (Normal) Range: [...] 3.4-10.8 :09 Basic Metabolic Profile (BMP) Comments: [facility] Axegmwrgiv[address] [place], [address] GAP 9 (Normal) Range: 5-15 CO2 29.0 [...] :09 CBC-Complete Blood Cnt No Diff Comments: [facility] Pfjtdwontw[address] [place], [address] MPV 9.1 fL (Normal) Range: 6.2-12.0 PLT [...] 5.7 K/mm3 (Normal) Range: 4.4-11.0 :53 Magnesium (67220) Comments: PATIENT NOT FASTINGPERFORMED BY: [facility] Tgslzs2461 [facility] [id number] Magnesium, Serum 1.9 mg/dL (Normal) Range: 1.6-2.3 :53 METABOLIC PANEL, COMPREHENSIVE Comments: PATIENT NOT FASTINGPERFORMED BY: [facility] Boswpl3596 [facility] [id number]; non- emergent till apt (67177) ALT (SGPT) 18 [iU]/L (Normal) Range: 0-32 [...] Glucose, Serum 83 mg/dL (Normal) Range: 65-99 14-Wrz-32227:53 TSH (99700) Comments: PATIENT NOT FASTINGPERFORMED BY: Infogami [facility] Epdfny8638 [facility] [id number] TSH 1.810 {uIU/mL} (Normal) Range: 0.450-4.500 60-Txn-296808:15 Vitamin D Hydroxy (55936) Comments: PATIENT NOT FASTINGPERFORMED BY: CB [facility] Naqkpo7041 [facility] [id number] Vitamin D, 25-Hydroxy 28.3 ng/mL (Abnormal) Range: 30.0-100.0 Comments: Vitamin D deficiency has been defined by the [place] of[place] and an Endocrine Society practice guideline as alevel of serum 25-OH vitamin D less than 20 ng/mL (1,2).The Endocrine Society went on to further define vitamin Dinsufficiency as a level between 21 and 29 ng/mL (2).1. IOM ([place] of [employer]). 2010. Dietary reference intakes for calcium and D. [place]: The National Academies Press.2. Seng MF, Theresa ROMERO, Kieran KOWALSKI, et al. Evaluation, treatment, and prevention of vitamin D deficiency: an Endocrine Society clinical practice guideline. JCEM. 2010; 96(7):1911-30. 94-Isj-993359:15 VITAMIN B-12 (CYANOCOBALAMIN) Comments: PATIENT NOT FASTINGPERFORMED BY: CardiosonicMemorial Medical CenterUgsoge8407 FlyBridGeAtrium Health Kannapolis [id number] (92603) Vitamin B12 447 pg/mL (Normal) Range: 211-946 04-Iav-742651:15 CBC W/AUTO DIFF WBC Comments: PATIENT NOT FASTINGPERFORMED BY: LabAvanSci Bio Qumplp6167 FlyBridGeAtrium Health Kannapolis [id number] Information: SRC: ([id number]) Immature Grans (Abs) 0.0 {x10E3/uL} (Normal) Range: [...] 3.77-5.28 WBC 5.6 {x10E3/uL} (Normal) Range: 3.4-10.8 44-Hff-912678:15 METABOLIC PANEL, COMPREHENSIVE Comments: PATIENT NOT FASTINGPERFORMED BY: [facility] Ybbenc7416 [facility] [id number] (71884) ALT (SGPT) 13 [iU]/L (Normal) Range: 0-32 [...] Glucose, Serum 87 mg/dL (Normal) Range: 65-99 29-Svl-035329:50 Urinalysis, Office (40457) UA - LEUKOCYTE ESTERASE Trace (Normal) UA - NITRITE Negative (Normal) URINE UROBILINGN TUNDE TIMED Normal mg/dL (Normal) UA - PROTEIN Negative mg/dL (Normal) UA - PH 5 (Abnormal) UA - BLOOD Negative (Normal) UA - SPECIFIC GRAVITY 1.025 (Normal) UA - KETONES Negative mg/dL (Normal) UA - BILIRUBIN Negative (Normal) UA - GLUCOSE Negative (Normal) 94-Shh-733117:15 URINE CESAR CULTURE (TUNDE COL Comments: PATIENT NOT FASTINGPERFORMED BY: Card[facility] TherapeuticsWilson Medical Center [id number] COUNT) (09279) Result 1 MUG (Normal) Comments: Mixed urogenital floraGreater than 100,000 colony forming units per mL Urine Culture,Comprehensive Final report (Normal) 36-Alv-608834:29 URINE CESAR CULTURE-IDENTIFICATN Comments: PATIENT NOT FASTINGPERFORMED BY: Card[facility] TherapeuticsWilson Medical Center [id number] Information: [id number] (18280) Result 1 MUG (Normal) Comments: Mixed urogenital flora1,000 Colonies/mL Urine Culture,Comprehensive Final report (Normal) 87-Foe-232882:29 URINE CESAR CULTURE-TUNDE COL Comments: PATIENT NOT FASTINGPERFORMED BY: SeeVolutionAtrium Health [facility]apolis [id number] Information: SRC:UR [id number] COUNT (97740) Result 1 MUG (Normal) Comments: Mixed urogenital flora25,000-50,000 colony forming units per mL Urine Final report (Normal) Culture,Comprehensive 55-Fba-242973:07 Urinalysis, Office (05677) UA - LEUKOCYTE ESTERASE Small (Normal) UA - NITRITE Negative (Normal) URINE UROBILINGN TUNDE TIMED Normal mg/dL (Normal) UA - PROTEIN Negative mg/dL (Normal) UA - PH 5 (Abnormal) UA - BLOOD Hemolyzed Trace (Normal) UA - SPECIFIC GRAVITY 1.015 (Normal) UA - KETONES Negative mg/dL (Normal) UA - BILIRUBIN Negative (Normal) UA - GLUCOSE Negative (Normal) 1-Djm-383350:02 URINE CESAR CULTURE (TNUDE Comments: PATIENT NOT FASTINGPERFORMED BY: Fangcang Tyoitu8626 [facility] [id number] Information: SRC:[id number] COL COUNT) (93662) Result 1 NG36 (Normal) Comments: No growth in 36 - 48 hours. Urine Culture,Comprehensive Final report (Normal) 17-Sep-20149:51 CBC With Differential/Platelet Comments: PATIENT NOT FASTINGPERFORMED BY: [facility] Laqygm1900 [facility] [id number] Information: [id number] Immature Grans (Abs) 0.0 {x10E3/uL} (Normal) Range: [...] (14) Comments: PATIENT NOT FASTINGPERFORMED BY: LabCo Wyxtep3798 [facility] [id number] ALT (SGPT) 11 [iU]/L (Normal) Range: 0-32 [...] (Normal) Range: 65-99 :13 SED RATE ERYTHROCYTE (39534) Comments: PATIENT WAS FASTINGPERFORMED BY: CardiosonicRobert Wood Johnson [facility] Hospital at RahwayRoxktc6238 [facility] [id number] Sedimentation Rate-Westergren 6 mm/h (Normal) Range: 0-40 :13 C-REACTIVE PROTEIN (77355) Comments: PATIENT WAS FASTINGPERFORMED BY: AppSpotrBaraga County [facility] Hospital6370 [facility] [id number] C-Reactive Protein, Quant 2.2 mg/L (Normal) Range: 0.0-4.9 :13 CBC W/AUTO DIFF WBC Comments: PATIENT WAS FASTINGPERFORMED BY: [facility] Djuisb0315 [facility] [id number] Information: [id number] (32717) Immature Grans (Abs) 0.0 {x10E3/uL} (Normal) Range: [...] 3.77-5.28 WBC 4.6 {x10E3/uL} (Normal) Range: 3.4-10.8 60-Qml-81920:13 TSH (25286) Comments: PATIENT WAS FASTINGPERFORMED BY: Cardium TherapeuticsWilson Medical Center [id number] TSH 0.584 {uIU/mL} (Normal) Range: 0.450-4.500 20-Jjr-328903:42 Urinalysis, Office (76091) UA - LEUKOCYTE ESTERASE Small (Normal) UA - NITRITE Negative (Normal) URINE UROBILINGN TUNDE TIMED Normal mg/dL (Normal) UA - PROTEIN Negative mg/dL (Normal) UA - PH 6 (Abnormal) UA - BLOOD Negative (Normal) UA - SPECIFIC GRAVITY 1.025 (Normal) UA - KETONES Negative mg/dL (Normal) UA - BILIRUBIN Negative (Normal) UA - GLUCOSE Negative (Normal) 87-Ahg-398647:43 URINE CESAR CULTURE (TUNDE Comments: PATIENT NOT FASTINGPERFORMED BY: [employer] [facility] [id number] Information: SRC:UR [id number] COL COUNT) (28365) Result 1 MUG (Normal) Comments: Mixed urogenital flora25,000-50,000 colony forming units per mL Urine Final report (Normal) Culture,Comprehensive :13 Vitamin D Hydroxy (21014) Comments: PATIENT WAS FASTINGPERFORMED BY: Easiaid70 [address] [facility] [id number] Vitamin D, 25-Hydroxy 38.7 ng/mL (Normal) Range: 30.0-100.0 Comments: Vitamin D deficiency has been defined by the [place] of[place] and an Endocrine Society practice guideline as alevel of serum 25-OH vitamin D less than 20 ng/mL (1,2).The Endocrine Society went on to further define vitamin Dinsufficiency as a level between 21 and 29 ng/mL (2).1. IOM ([place] [employer]). 2010. Dietary reference intakes for calcium and D. [place]: The National Academies Press.2. Seng MF, Theresa NC, Kieran KOWALSKI, et al. Evaluation, treatment, and prevention of vitamin D deficiency: an Endocrine Society clinical practice guideline. JCEM. 2010; 96(5):4301-30. :13 LIPID PANEL (31862) Comments: PATIENT WAS FASTINGPERFORMED BY: [facility] Xssxgm4652 [facility] [id number] LDL/HDL Ratio 1.8 {ratio_units} (Normal) Range: 0.0-3.2 [...] PANEL, COMPREHENSIVE Comments: PATIENT WAS FASTINGPERFORMED BY: CelluFuellin6370 [facility] [id number] (69273) ALT (SGPT) 14 [iU]/L (Normal) Range: 0-32 [...] Glucose, Serum 86 mg/dL (Normal) Range: 65-99 41-Tid-57522:13 VITAMIN B-12 (CYANOCOBALAMIN) Comments: PATIENT WAS FASTINGPERFORMED BY: Easiaid70 [facility] [id number] (62786) Vitamin B12 >1999 pg/mL (Abnormal) Range: 211-946 41-Btv-598332:00 Metabolic Panel, Basic Comments: 6 weeks; PATIENT NOT FASTINGPERFORMED BY: Easiaid70 [facility] [id number] Information: [id number] (21846) Calcium, Serum 9.7 mg/dL (Normal) Range: 8.6-10.2 [...] Glucose, Serum 90 mg/dL (Normal) Range: 65-99 63-Iby-672442:24 URINE CESAR CULTURE-IDENTIFICATN Comments: PATIENT NOT FASTINGPERFORMED BY: [facility]6370 [facility] [id number] Information: [id number] (82089) Result 1 ENTEGA (Abnormal) Comments: Enterococcus nvnexvowpy36,000-25,000 colony forming units per mLNote: For enterococci with intrinsic intermediate-level resistance tovancomycin, such as E. casseliflavus and E. gallinarum, VRE infection control measures are not applicable, per the CLSI (formerly NCCLS).For Enterococcus species, cephalosporins, aminoglycosides (except forhigh-level resistance screening), clindamycin, and trimethoprim-curtis lfamethoxazole are not effective clinically. Fluoroquinolones areused primarily for treating urinary tract infections. (CLSI, C021-I27,2009) S = Susceptible; I = Intermediate; R = Resistant * P = Positive; N = Negative MICS are expressed in micrograms per mL Antibiotic RSLT#1 RSLT#2 RSLT#3 RSLT#4Ciprofloxacin SGentami lien 500 SLevofloxacin SNitrofurantoin IPenicillin SStreptomycin 2000 STetracycline SVancomycin R Urine Final report (Abnormal) Culture,Comprehensive 22-Bhq-275270:51 METABOLIC PANEL, Comments: PATIENT NOT FASTINGPERFORMED BY: [facility]6370 [facility] [id number] Information: [id number] COMPREHENSIVE (51701) ALT (SGPT) 20 [iU]/L (Normal) Range: 0-32 [...] Glucose, Serum 80 mg/dL (Normal) Range: 65-99 99-Kzn-675338:04 Microscopic Examination Comments: PATIENT NOT FASTINGPERFORMED BY: [employer] LabARtunes Radio6370 [facility] [id number] Bacteria Few (Normal) Mucus Threads Present (Normal) Epithelial Cells (non renal) 0-10 {/hpf} (Normal) Range: 0 - 10 RBC None seen {/hpf} (Normal) Range: 0 - 2 WBC None seen {/hpf} (Normal) Range: 0 - 5 99-Tpk-027439:04 URINE CESAR CULTURE (TUNDE COL Comments: PATIENT NOT FASTINGPERFORMED BY: [employer] [facility] Fntwks8999 [facility] [id number] COUNT) (25047) Antimicrobial MIHEAD (Normal) Comments: S = Susceptible; [...] mL (Abnormal) Urine Final report Culture,Comprehensive (Abnormal) 65-Yiw-885689:04 URINALYSIS, W/ MICRO Comments: PATIENT NOT FASTINGPERFORMED BY: [facility]6370 [facility] [id number] Information: SRC: [id number] (98992) Microscopic Examination See below: (Normal) Comments: Microscopic was indicated and was performed. Microscopic Examination MICRON (Normal) Comments: Microscopic follows if indicated. Nitrite, Urine Negative (Normal) Bilirubin Negative (Normal) Urobilinogen,Semi-Qn 0.2 mg/dL (Normal) Range: 0.0-1.9 Ketones Negative (Normal) Occult Blood Negative (Normal) Glucose Negative (Normal) Protein Negative (Normal) WBC Esterase Negative (Normal) Appearance Clear (Normal) Urine-Color Yellow (Normal) pH 6.0 (Normal) Range: 5.0-7.5 Specific [place] 1.010 (Normal) Range: 1.005-1.030 72-Jfc-100605:00 METABOLIC PANEL, Comments: PATIENT NOT FASTINGPERFORMED BY: [facility]6370 [facility] [id number] Information: [id number] COMPREHENSIVE (08179) ALT (SGPT) 11 [iU]/L (Normal) Range: 0-32 [...] CHOL 200 mg/dL (Normal) Comments: <200 mg/dL Kkluexflm106-973 mg/dL Borderline>240 mg/dL High Risk :26 TSH 1.85 {uIU/mL} (Normal) Range: 0.358-3.74 :26 VITD 72.9 mg/mL (Normal) Comments: will review at 11-05 appt Comments: Vitamin D 25(OH) Status RangeDeficiency <20 ng/mL (50nmol/L)Insuffciency 20 - 30 ng/mL (50 - 75 nmol/L)Sufficiency 30 - 100 ng/mL (75 - 250 nmol/L)Toxicity >100 ng/mL (>250 nmol/L) 5-Itv-941567:05 Urinalysis, Office (92667) UA - LEUKOCYTE ESTERASE Negative (Normal) UA - NITRITE Negative (Normal) URINE UROBILINGN TUNDE TIMED 2 mg/dL (Normal) UA - PROTEIN 30 mg/dL (Normal) UA - PH 6.0 (Normal) Comments: 5.5 UA - BLOOD Negative (Normal) UA - SPECIFIC GRAVITY 1.030 (Abnormal) UA - KETONES Small mg/dL (Normal) UA - BILIRUBIN Negative (Normal) UA - GLUCOSE Negative (Normal) 2-Exm-671130:33 URINE CESAR CULTURE-TUNDE COL Comments: PERFORMED BY: [employer] [place] [id number] COUNT (14178) Result 1 MUG (Normal) Comments: Mixed urogenital flora10,000-25,000 colony forming units per mL Urine Final report (Normal) Culture,Comprehensive 71-Bhc-056525:52 URINE CESAR CULTURE-TUNDE COL Comments: PATIENT NOT FASTINGPERFORMED BY: Cardium TherapeuticsWilson Medical Center [id number] Information: SRC:UR [id number] COUNT (83922) Antimicrobial MIHEAD (Normal) Comments: S = Susceptible; [...] CHOL 203 mg/dL (Abnormal) Comments: <200 mg/dL Yqbzxdaba830-086 mg/dL Borderline>240 mg/dL High Risk :47 TSH 1.52 {uIU/mL} (Normal) Range: 0.358-3.74 :47 VITD 59.3 mg/mL (Normal) Comments: Vitamin D 25(OH) Status RangeDeficiency <20 ng/mL (50nmol/L)Insuffciency 20 - 30 ng/mL (50 - 75 nmol/L)Sufficiency 30 - 100 ng/mL (75 - 250 nmol/L)Toxicity >100 ng/mL (>250 nmol/L) 0-Zzh-541244:44 CBC, PLATELETS & AUT DIFF Comments: PATIENT NOT FASTINGPERFORMED BY: [facility] Fcrtkz0495 [facility] [id number] Information: [id number] (61334) Immature Grans (Abs) 0.0 {x10E3/uL} (Normal) Range: [...] (Normal) Range: 3.4-10.8 :44 FOLIC ACID SERUM (30076) Comments: PATIENT NOT FASTINGPERFORMED BY: Fangcang Epom [facility] [id number] Folate (Folic Acid), Serum 14.4 ng/mL (Normal) Comments: A serum folate concentration of less than 3.1 ng/mL isconsidered to represent clinical deficiency. :44 RETICULOCYTE COUNT [facility] Comments: PATIENT NOT FASTINGPERFORMED BY: FangcangMemorial Medical CenterSpmfuo3494 [facility] [id number] (31325) Reticulocyte Count 1.1 % (Normal) Range: 0.6-2.6 :44 LDH (LD) (LACTATE DEHYDROGENASE) Comments: PATIENT NOT FASTINGPERFORMED BY: FangcangRobert Wood Johnson University Hospital at RahwayKmhhei0704 [facility] [id number] (29801) LDH 250 [iU]/L (Abnormal) Range: 0-214 :44 IRON BINDING CAPACITY (TIBC) Comments: PATIENT NOT FASTINGPERFORMED BY: FangcangRobert Wood Johnson University Hospital at RahwayFeggde7342 [facility] [id number] (32686) Iron Saturation 16 % (Normal) Range: 15-55 Iron, Serum 52 ug/dL (Normal) Range: 35-155 UIBC 270 ug/dL (Normal) Range: 150-375 Iron Bind.Cap.(TIBC) 322 ug/dL (Normal) Range: 250-450 :44 FERRITIN (89122) Comments: PATIENT NOT FASTINGPERFORMED BY: [facility] Tvikfb3802 [address] [place] [id number] Ferritin, Serum 42 ng/mL (Normal) Range: 15-150 [...] Rowe M.D.July 23, 2012 at 2:35:49 PM [id number] Signed GP/GP If you are the referring physicia n and would like to consult with theradiologist who provided this interpretation, please contact Ofelia Rodriguez at [phone]. If this radiologist is unavailable, youwill be directed to [facility] radiologist to assist. If you are a patient with a question regarding this report, pleasecontactyour referring physician directly. Professional Interpretation Provided By: [employer], Phone , These documents contain legally protected [...] 3 1439 Sign by: Dashawn Rowe MD 1-Vnm-064550:59 KIDNEY Radiology Report See Note (Normal) Comments: [...] Welsh M.D.July 11, 2012 at 5:00:06 PM [id number] Signed TT/TT If you are the referring physician and would like to consult with theradiologist who provided this interpretation, please contact Brittney Mccormack M.D. at [phone]. If this radiologist is unavailable, youwillbe directed to another radiologist to assist. If you are a patient with a question regarding this report, pleasecontactyour referring physician directly. Professional Interpretat ion Provided By: [employer], Phone , These documents contain legally protected and confidential healthinformation intended only for the use of the individual or entity [facility]. If you are not [...] on 07/11/121825 Sign by: Brittney Welsh MD 0-Dax-038259:59 TRANSVAGINAL NON- Radiology Report See Note (Normal) [...] Welsh M.D.July 11, 2012 at 4:45:28 PM [phone] Signed TT/TT If you are the referring physician and would like to consult with sebastian taylorogjudi who provided this interpretation, please contact Brittney Mccormack M.D. at [phone]. If this radiologist is unavailable, youwillbe directed to another radiologist to assist. If you are a p atient with a question regarding this report, pleasecontactyour referring physician directly. Professional Interpretation Provided By: [employer], Phone , These documents contain legally protected [...] CHOL 210 mg/dL (Abnormal) Comments: <200 mg/dL Pemssrlqw828-647 mg/dL Borderline>240 mg/dL High Risk :44 MG 1.8 mg/dL (Normal) Range: 1.8-2.4 :44 SED tSEDRATE 18 mm/h (Normal) Range: 0-30 :44 TSH 8.94 {uIU/mL} (Abnormal) Range: 0.358-3.74 :44 VITD 90.8 ng/mL (Normal) Comments: Vitamin D 25(OH) Status RangeDeficiency <20 ng/mL (50nmol/L)Insufficiency 20 - 30 ng/mL (50 - 75 nmol/L)Sufficiency 30 - 100 ng/mL (75 - 250 nm ol/L)Toxicity >100 ng/mL (250 nmol/L)Effective 201204-Jul-201262-Fda-385086:29 ABDOMEN/PELVIS WITH CONTRAST Radiology Report See Note [...] to well characterize low-attenuation left renal lesion,probably medical collections representative of a cyst. Consider follow-up renal sonographyforfurther evaluation as clinically warranted. Signed:Matilda AvilesJuly 04, 2012 at 5:12:21 PM [id number] Signed DL/DL If you are the referring physician and would like to consult with theradiologist who provided this interpretation, please contact Ofelia Kyle at [phone]. If this radiologist is unavailable, youwillbe directed to another radiologist to assist. If you are a patient with a question regarding this report, pleasecontactyo ur referring physician directly. Professional Interpretation Provided By: [employer], Phone , These documents contain legally protected [...] on 07/04/121714 Sign by: Salinas Champion MD 76-Zcn-850829:18 CRE GFRAA 41 mL/min (Abnormal) GFR 34 mL/min (Abnormal) CREAT 1.6 mg/dL (Abnormal) Range: 0.6-1.0 00-Eje-207860:15 BMP GAP 7 (Normal) Range: 5-15 CO2 [...] pg/mL (Normal) Range: 211-946 Comments: Performed at: [address] [id number] Director: Patito Segovia MD, Phone: [phone] :[phone] CBCMD RBCM NORM C+C {NORMAL} (Normal) [...] D deficiency has been defined by the [place] of[place]icine and an Endocrine Society practice guideline as alevel of serum 25-OH vitamin D less than 20 ng/mL (1,2).The Endocrine Society went on to further define vitamin Dinsufficiency as a level between 21 and 29 ng/mL (2).1. IOM ([place] [employer]). 2010. Dietary reference intakes for calcium and D. [place]: The National Academies Press.2. Seng MF, Theresa ROMERO, Kieran KOWALSKI, et al. Evaluation, treatment, and prevention of vitamin D deficiency: an Endocrine Society clinical practice guideline. JCEM. 2010; 96(7):1911-30. 83-Irk-736586:37 BREAST UNILATERAL Radiology Report See Note (Normal) [...] Category 3: Probably Benign Finding - Initial Qgpru-IyebppqjAsylpo-wx Suggested. Signed:Dashawn Rowe M.D.November 09, 2011 at 2:49:17 PM [id number] Signed GP/GP If you are the referring physician and would like to consult with theradiologist who provided this interpretation, please contact Herb blake M.D. at [phone]. If this radiologist is unavailable, youwill be directed to another radiologist to assist. If you are a patient with a question regarding this report, pleasecontactyour referri ng physician directly. Professional Interpretation Provided By: [employer], Phone , These documents contain legally protected [...] 11/09/11 1456 Sign by: Dashawn Rowe MD 58-Jhj-923429:47 BREAST UNILATERAL Radiology Report See Note (Normal) [...] Category 3: Probably Benign Finding - Initial Wqeiw-CinqpnvvRztnhv-wa Suggested. To consult with a radiologist regarding this report, please call our [id number] line @ Dictated on 06/22/11 1428 by Soledad CARRANZA,Tacobed on 06/22/11 1547 by ITS IMPORTSign by Dashawn Rowe MD on 06/22/11 1548 Sign by: ___ Dashawn Rowe MD 49-Uex-072382:47 UNILAT LT DIAG DIGITAL & CAD Radiology [...] radiologist regarding this report, please call our [id number] line @ Dictated on 06/22/11 1357 by Taco Rowe MDbed on 1450 by ITS IMPORTSign by Dashawn Rowe MD on 06/22/11 1451 Sign by: Dashawn Rowe MD 2-Hcb-783481:14 CERV SPINE,MIN 4 VIEWS Radiology Report See [...] radiologist regarding this report, please call our 93H5irobvsn line @ Dictated on 04/13/11 1408 by LISANDRA DUMONT MDTranscribed on 04/14/11 1628 by ITS IMPORTSign by Mook DUMONT MD on 04/14/11 1629 Sign by: LISANDRA DUMONT MD 27-Fed-44130:38 CBCD,SMEAR DIFF RED CELL MORPH SeeNote {NORMAL} [...] or = 500 mg/dL :38 VIT D, 11340 47.8 ng/mL (Normal) Range: 30.0-100.0 Comments: Vitamin D deficiency has been defined by the [place] [employer] and an Endocrine Society practice guideline as alevel of serum 25-OH vitamin D less than 20 ng/mL (1,2).The Endocrine Society went on to further define vitamin Dinsufficiency as a level between 21 and 29 ng/mL (2).1. IOM ([place] [employer]). 2011. Dietary reference intakes for calcium and D. [place]: The National Academies Press.2. Seng MF, Theresa ROMERO, Kieran KOWALSKI, et al. Evaluation, treatment, and prevention of vitamin D deficiency: an Endocrine Society clinical practice guideline. JCEM. 2010; 96(7): 1911-30.Performed at: [facility] [address] [id number] Director: Patito Segovia MD, Phone: [phone] :[phone] VITAMIN B12 781 pg/mL (Normal) Range: 254-1320 Comments: There is a low frequency possibility that high titers ofintrinsic blocking antibodies may not be completely inactivated during the reaction pretreatment stepof this testing method. If test results are i n conflictwith the clinical diagnosis, patient should be testedfor the presence of intrinsic factor blocking antibodies. 79-Bih-173162:29 DEXA BONE DENSITY STUDY (HP) Comments: appt [...] 02/02/11 0843 Sign by: Dashawn Rowe MD 14-Vvh-157080:03 Thin prep Pap Comments: Source.............Cervical;EndocervicalNo. of containers..01 CYTYC Thin Prep VialPERFORMED BY: [facility] [id number] Information: [id number] ([id number]) Note: PAPSMR (Normal) Comments: The Pap smear [...] ; Routine gynecolog ical examina Deidre Aguila Tour Counselor (ASCP) 99-Njj-212061:01 BILAT SCRN DIGITAL & CAD Radiology Report [...] 11/10/10 1453 Sign by: Dashawn Rowe MD 17-Csz-327130:16 COMP METABOLIC Comments: appt 11/05/10 GAP 10 [...] 7-18 GLU 79 mg/dL (Normal) Range: 70-110 87-Vgr-066827:16 LIPID VLDL 24 mg/dL (Normal) Range: 5-40 [...] 200-240 mg/dL Borderline >240 mg/dL High Risk 65-Vkb-935392:16 TSH 0.99 {uIU/mL} (Normal) Range: 0.358-3.74 64-Kwx-039230:16 VIT D,25 64539 45.6 ng/mL (Normal) Range: 32.0-100.0 Comments: Recent studies consider the lower limit of 32.0 ng/mL to zoraida threshold for optimal health.Everardo HEREDIA. J Nutr. 2004;135(2):317-22.Performed at: - [facility] [address]Lab Director: Patito Segovai MD, Phone: [phone] 12-Eek-865910:16 VITAMIN B12 582 pg/mL (Normal) Range: 254-1320 Comments: There is a low frequency possibility that high titers ofintrinsic blocking antibodies may not be completely inactivated during the reaction pretreatment stepof this testing method. If test results are i n conflictwith the clinical diagnosis, patient should be testedfor the presence of intrinsic factor blocking antibodies. 36-Fhc-632192:20 CBCD,SMEAR DIFF PLT EST SeeNote (Normal) Comments: [...] {uIU/mL} (Normal) Range: 0.358-3.74 :20 VIT D,25 30963 43.2 ng/mL (Normal) Range: 32.0-100.0 Comments: Recent studies consider the lower limit of 32.0 ng/mL to zoraida threshold for optimal health.Mcgee BW. J Nutr. 2004;135(2):317-22.Performed at: [facility] [id number]Lab Director: Patito Segovia MD, Phone: [phone] 27-Udc-882856:20 VITAMIN B12 516 pg/mL (Normal) Range: 254-1320 Comments: There is a low frequency possibility that high titers ofintrinsic blocking antibodies may not be completely inactivated during the reaction pretreatment stepof this testing method. If test results are i n conflictwith the clinical diagnosis, patient should be testedfor the presence of intrinsic factor blocking antibodies. :44 VIT D,25 78493 38.6 ng/mL (Normal) Range: 32.0-100.0 Comments: Recent studies consider the lower limit of 32.0 ng/mL to zoraida threshold for optimal health.Mcgee BW. J Nutr. 2004;135(2):317-22.Performed at: [facility] [address] 296Lab Director: Patito Segovia MD, Phone: [phone] :44 VITAMIN B12 398 pg/mL (Normal) Range: [...] intrinsic factor blocking antibodies. :24 VITD 1,25 79101 57.3 pg/mL (Normal) Range: 10.0-75.0 Comments: Performed at: [address] [id number] Director: Roderick Ramirez MD, Phone: [phone] 55-Gqx-294698:26 CBCD,SMEAR DIFF RED CELL MORPH SeeNote {NORMAL} [...] the presence of intrinsic factor blocking antibodies. 0-Lrg-310816:16 MRA HEAD WITHOUT CONTRAST Radiology Report See Note (Normal) Comments: Exam Number: [id number] CLINICAL:69 year old female with numbness in [...] There is a fetalconfiguration of the right STUMP SHOOTER. No definite P1 segment connectingthe artery to the basilar artery is identified. IMPRESSION:No demonstrated aneurysm. Anatomic variations of the [place]. 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 The rightinternal carotid arteries supplies the left [place] territory, and islarger than the left internal carotid. 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 Reported By: DOMENICA MCGARRY M.D. 67-Ixq-731749:41 BRAIN W/WO CONTRAST Radiology See Note Comments: Exam Number: [id number] CLINICAL: MRI BRAIN WITHOUT AND WITH CONTRAST [...] mild degenerative remodeling of the mandibular condyles.ADDENDUM: [id number] MRI/BRWW CLINICAL: MRI BRAIN WITHOUT AND WITH [...] CHOL 188 mg/dL (Normal) Comments: <200 mg/dL Pibpnypwx451-634 mg/dL Borderline>240 mg/dL High Risk HDL 54 [...] Range: 0.358-3.74 5 (Normal) :3 VIT D,25 12655 29.3 ng/mL (Abnormal) Range: 32.0-100.0 5 Comments: Recent studies consider the lower limit of 32.0 ng/mL to zoraida threshold for optimal health.Everardo HEREDIA. J Nutr. 2004;135(2):317-22.Performed at: - [facility] [id number] [place], [place] [address] 296Lab Director: Patito Segovia MD, Phone: [phone] :[phone] VITAMIN B12 158 pg/mL (Abnormal) Range: 254-1320 5 Comments: There is a low frequency possibility that high titers ofintrinsic blocking antibodies may not be completelyinactivated during the reaction pretreatment stepof this testing method. If test results are in conflictwith the clinical diagnosis, patient should be testedfor the presence of intrinsic factor blocking antibodies. 82-Qob-291368:17 ABDOMEN W/WO IV CONTRAST Radiology Report See Note (Normal) Comments: Exam Number: [id number] CLINICAL:Right upper quadrant pain CT ABDOMEN WITH [...] parapelvic renal cysts. Reported By: PRADIP FRANCO 59-Mhh-338031:29 BMP BUN 16 mg/dL (Normal) Range: 7-18 [...] mg/dL (Normal) Range: 70-110 :37 VIT D,25 37969 26.3 ng/mL (Abnormal) Range: 32.0-100.0 Comments: Recent studies consider the lower limit of 32.0 ng/mL to zoraida threshold for optimal health.Everardo HEREDIA. J Nutr. 2004;135(2):317-22.Performed at: [address] [id number] Director: Ade Rubio MD 84-Muy-330350:36 GALLBLADDER (HP) Radiology Report See Note (Normal) Comments: Exam Number: [id number] LIMITED ABDOMINAL ULTRASOUND FOR GALLBLADDER HISTORYChest pain. [...] kidneyis suggested. Reported By: DOMENICA GATES M.D. 4-Ugf-111036:21 Lipase (64870) Comments: PATIENT NOT FASTINGPERFORMED BY: [address] [id number] Lipase, Serum 42 U/L (Normal) Range: 0-59 5-Rub-480956:21 Amylase (49066) Comments: PATIENT NOT FASTINGPERFORMED BY: [address] [id number] Amylase, Serum 54 U/L (Normal) Range: 31-124 8-Xua-116352:21 CBC WITH MANUAL DIFF Comments: PATIENT NOT FASTINGPERFORMED BY: [address] [id number] Information: [id number] (87130) Baso (Absolute) 0.1 {x10E3/uL} (Normal) Range: 0.0-0.2 [...] 3.80-5.10 WBC 5.9 {x10E3/uL} (Normal) Range: 4.0-10.5 8-Cqi-513644:21 METABOLIC PANEL, COMPREHENSIVE Comments: PATIENT NOT FASTINGPERFORMED BY: [facility]Robert [facility] RahwayYumsmb3192 [facility] [id number] ([id number]) ALT (SGPT) 15 [iU]/L (Normal) Range: 0-40 [...] Comments: DR DAVIS ORDERED CMP,CBCMD,CAROL,RF,TSH,CRP,SED,CCP,LIPIDDR VELLANKIORDEREDCMP,CBCD,CRP,SED,VITD,CCP,HEPBSAB,HEPBSAG,HEPC,CAROL,RF,HEPBCORE IGM,[place] [id number] CAROL-DIRECT SeeNote (Normal) Comments: Result: Negative :48 ANTI-CCP 588981 4 {units} (Normal) Comments: DR DAVIS ORDERED [...] mm/h (Normal) Range: 0-30 :48 HB CORE [id number] SeeNote (Normal) Comments: DR DAVIS ORDERED CMP,CBCMD,CAROL,RF,TSH,CRP,SED,CCP,LIPIDDR VELLANKIORDEREDCMP,CBCD,CRP,SED,VITD,CCP,HEPBSAB,HEPBSAG,HEPC,CAROL,RF,HEPBCORE IGM,UA Comments: Result: Negative Performed At: [facility] [address] [place], [place] [id number] At: [facility] [address] [place], [place] [id number] :48 HBsAg Comments: DR DAVIS ORDERED CMP,CBCMD,CAROL,RF,TSH,CRP,SED,CCP,LIPIDDR VELLANKIORDEREDCMP,CBCD,CRP,SED,VITD,CCP,HEPBSAB,HEPBSAG,HEPC,CAROL,RF,HEPBCORE IGM,UA 6510 HB SURF AG 6510 SeeNote (Normal) Comments: Result: Negative :48 HEBSAB 6395 < 0.1 (Normal) Comments: DR DAVIS ORDERED CMP,CBCMD,ACROL,RF,TSH,CRP,SED,CCP,LIPIDDR VELLANKIORDEREDCMP,CBCD,CRP,SED,VITD,CCP,HEPBSAB,HEPBSAG,HEPC,CAROL,RF,HEPBCORE IGM,UA Range: 0.00-0.99 Comments: Status of Immunity Anti-HBs Level Inconsistent with Immunity 0.00 - 0.99 Consistent with Immunity >0.99 . An Index Value of 1.00 is equivalent to 10 mIU/mL. However the magnitude of the Index Value is not indicative of the total amount of antibody present. :48 HEP C AB 717084 0.1 (Normal) Comments: DR DAVIS ORDERED CMP,CBCMD,CAROL,RF,TSH,CRP,SED,CCP,LIPIDDR [...] VELLANKIORDEREDCMP,CBCD,CRP,SED,VITD,CCP,HEPBSAB,HEPBSAG,HEPC,CAROL,RF,HEPBCORE IGM,UA Range: 0.358-3.74 :48 VIT D,25 02264 18.0 ng/mL (Abnormal) Comments: DR DAVIS ORDERED CMP,CBCMD,CAROL,RF,TSH,CRP,SED,CCP,LIPIDDR VELLANKIORDEREDCMP,CBCD,CRP,SED,VITD,CCP,HEPBSAB,HEPBSAG,HEPC,CAROL,RF,HEPBCORE IGM,UA Range: 32.0-100.0 Comments: Recent studies consider the lower limit of 32.0 ng/mL to zoraida threshold for optimal health.Everardo HEREDIA. J Nutr. 2004;135(2):317-22. 6-Rct-489118:10 [facility] Radiology Report See Note (Normal) Comments: Exam Number: [id number] MAMMOGRAM, BILATERAL SCREENING DIGITAL AND CAD HISTORYRoutine [...] (MQSA). The mammograms werealso examined with c GE Global Researchuter-aided detection software (Knack.it.). Reported By: DOMENICA GATES M.D. 1-Wyn-360142:09 SPINE,LUMBAR (ROUTINE) Radiology Report See Note (Normal) Comments: Exam Number: [id number] CLINICAL:68-year-old female with low back pain for [...] Report See Note (Normal) Comments: Exam Number: [id number] CLINICAL DATALow back pain, flank pain, right [...] disc disea se involving multiple levels from Y7vilzynb S1. There is degenerative hypertrophic change of [...] Report See Note (Normal) Comments: Exam Number: [id number] DORSAL SPINE Three images of the dorsal [...] Culture,Comprehensive Comments: Clinical Information: SRC:UR PERFORMED BY: [facility] [facility] [id number] Result 1 NG36 (Normal) Comments: No growth in 36 - 48 hours. Urine Culture,Comprehensive Final report (Normal) :18 PELVIS WITHOUT IV CONTRAST Radiology Report See Note (Normal) Comments: Exam Number: [id number] CT SCANS OF ABDOMEN AND PELVIS HISTORYThe [...] Report See Note (Normal) Comments: Exam Number: [id number] CT SCANS OF ABDOMEN AND PELVIS HISTORYThe [...] the spine. Reported By: DOMENICA GATES M.D. 7-Ggo-208425:1 C-REACTIVE PROT 4.05 mg/L (Abnormal) Range: 0.0-3.0 0 Comments: C-Reactive Protein (CRP) provides useful information for thediagnosis, therapy and monitoring of inflammatory processesand associated diseases. For the evaluation of Relative Riskfor Cardiovascular Dise ase, a High Sensitivity CRP (HSCRP)should be ordered. 2-Dhc-373941:10 CBCD,SMEAR DIFF ATYPICAL LYMPH 1+ % (Normal) [...] 47-70 WBC 8.2 K/mm3 (Normal) Range: 4.4-11.0 8-Lsr-723123:10 COMP METABOLIC A/G 1.4 {RATIO} (Normal) Range: [...] 6.4-8.2 GLU 84 mg/dL (Normal) Range: 70-110 9-Ueh-251130:10 ESR SED RATE 14 mm/h (Normal) Range: 0-30 4-Zee-163814:40 Urinalysis, Office (65249) UA - BILIRUBIN Negative (Normal) UA - BLOOD Non Hemolyzed Trace (Normal) UA - GLUCOSE Negative (Normal) UA - KETONES Negative mg/dL (Normal) UA - LEUKOCYTE ESTERASE Negative (Normal) Comments: aw UA - NITRITE Negative (Normal) UA - PH 6.0 (Normal) UA - PROTEIN Negative mg/dL (Normal) UA - SPECIFIC GRAVITY 1.010 (Normal) URINE UROBILINGN TUNDE TIMED Normal mg/dL (Normal) 4-Mdj-741177:28 URINE CESAR CULTURE-TUNDE COL Comments: PATIENT NOT FASTINGClinical Information: SRC:UR ADD [id number] PERFORMED BY: [facility] [facility] [id number] COUNT (56554) Result 1 MUG (Normal) Comments: Mixed urogenital flora10,000-25,000 colony forming units per mL Urine Final report (Normal) Culture,Comprehensive 6-Vul-436987:09 Urinalysis, Office (14280) UA - BILIRUBIN Negative (Normal) UA - [...] mg/dL VLDL 16 mg/dL (Normal) Range: 5-40 7-Mmc-981024:59 LQD PAP [id number] Comments: CYTOLOGY INFORMATION:- CLINICAL INFORMATION: POSTMENOPAUSAL- DATE LMP/MENOPAUSE: MENOPAUSE- COLLECTION VIAL: Thin Prep Vial- X RAY OPERATOR SOURCE: CERVICAL/ENDOCERVICAL- COLLECTION TECHNIQUE: BRUSH/SPATULA ADEQ Comment (Normal) Comments: Satisfactory for evaluation. Endocervical and/or squamous metaplasticcells (endocervical component) are present. COMM . (Normal) DIAGN Comment (Normal) Comments: NEGATIVE FOR INTRAEPITHELIAL LESION AND MALIGNANCY. HPV RFLX Comment (Normal) Comments: The HPV DNA reflex criteria were not met with this specimenresult therefore, no HPV testing was performed. .Performed At: [address] [id number] PAPSMR Comment (Normal) Comments: The Pap smear is a screening test designed to aid in thedetection of premalignant and malignant conditions of theuterine cervix. It is not a diagnostic procedure andshould not be used as the sole means of detecting cervicalcancer. Both false-positive and false-negative reports dooccur. . PERFORM Comment (Normal) Comments: Diandra Bee, Tour Counselor (ASCP) 61-Lzi-123740:36 DEXA BONE DENSITY STUDY (HP) Radiology Report See Note (Normal) Comments: Exam Number: [id number] BONE DENSITOMETRY TECHNIQUE Bone densitometry of the [...] :55 TSH 2.13 {uIU/mL} (Normal) Range: 0.34-4.82 59-Uyv-086727:12 C-REACTIVE PROT 5.51 mg/L (Normal) Range: 0.0-6.0 Comments: Test performed using the Dimension C-Reactive ProteinExtended Range assay method. This assay meets the AHA/CDC 2003 recommendations fordetermining patients at high risk for cardiovasculardisease. Reference: High risk CRP >3.0 mg/L 53-Wem-530110:12 CBCD,SMEAR DIFF BAND 1 % (Normal) Range: [...] 47-70 WBC 6.2 K/mm3 (Normal) Range: 4.4-11.0 33-Xsf-418273:12 COMP METABOLIC A/G 1.5 {RATIO} (Normal) Range: [...] T PROT 6.1 g/dL (Abnormal) Range: 6.4-8.2 35-Hsd-241563:12 FUNEZ A AB 163247 FUNEZ A TYPE 10 <1:8 (Normal) FUNEZ [...] and its performancecharacteristics have been determined by [employer]. Performance characteristics refer tothe analytical performance of the test. FUNEZ A TYPE 2 <1:8 (Normal) FUNEZ A TYPE 4 <1:8 (Normal) FUNEZ A TYPE 7 <1:8 (Normal) FUNEZ A TYPE 9 <1:8 (Normal) 55-Mjh-790796:12 ESR SED RATE 14 mm/h (Normal) Range: 0-30 15-Msd-815626:12 RA LATEX 6502 7.1 {IU/mL} (Normal) Range: 0.0-13.9 Comments: Performed At: [facility] [place], [place] [id number] At: [facility] [place], [place] [id number] 35-Zly-457922:12 TSH 0.16 {uIU/mL} (Abnormal) Range: 0.34-4.82 :21 PELVIS WITH CONTRAST Radiology Report See Note (Normal) Comments: Exam Number: [id number] CT ABDOMEN AND PELVIS WITH CONTRAST. CLINICAL [...] pericardial effusion. Reported By: TODD KENNEDY M.D. 97-Hcz-622982:11 ABDOMEN WITH CONTRAST Radiology Report See Note (Normal) Comments: Exam Number: [id number] CT ABDOMEN AND PELVIS WITH CONTRAST. CLINICAL [...] pericardial effusion. Reported By: TODD KENNEDY M.D. 47-Dxo-734406:38 MARCUS 45 U/L (Normal) Range: 25-115 22-Ftl-702643:38 CBCD,SMEAR DIFF BAND 1 % (Normal) Range: [...] 47-70 WBC 5.9 K/mm3 (Normal) Range: 4.4-11.0 85-Ayx-455315:38 LIPASE 190 U/L (Normal) Range: 114-286 41-Nom-336286:45 BILAT SCRN DIGITAL & CAD Radiology Report See Note (Normal) Comments: Exam Number: [id number] MAMMOGRAM, BILATERAL SCREENING DIGITAL AND CAD HISTORYRoutine [...] werealso exam ined with computer-aided detection software ([employer], [employer].). Reported By: DOMENICA GATES M.D. :33 CHEST W/WO CONTRAST Radiology Report See Note (Normal) Comments: Exam Number: [id number] CT SCAN OF CHEST HISTORYLung nodule. Consecutive [...] 47-70 WBC 4.2 K/mm3 (Abnormal) Range: 4.4-11.0 24-Zdy-28201:07 COMP METABOLIC A/G 1.5 {RATIO} (Normal) Range: [...] [facility] Indication: Vaginal itching Low Back Pain (Renamed [...] Indication: Chest pain Chest pain : Reviewed Radar Tester Letter Indication: Chest pain Osteoarthritis, unspecified osteoarthritis [...] Hypercholesterolemia Planned Observations CBC W/AUTO DIFF WBC (25934)Indication: Prolonged QT interval On: 3-Fok-817938:18 Request METABOLIC PANEL, COMPREHENSIVE (18309)Indication: Prolonged QT interval On: 7-Iwr-443310:18 Request VITAMIN B-12 (CYANOCOBALAMIN) (82277)Indication: DEFICIENCY, B-COMPLEX NEC On: 8-Wqu-731242:18 Request TSH (65183)Indication: Acquired hypothyroidism On: :17 Request LIPOPROTEIN, BLD, BY NMR (72985)Indication: Hypercholesterolemia On: :17 Request VITAMIN B-12 (CYANOCOBALAMIN) (93747)Indication: DEFICIENCY, B-COMPLEX NEC On: :18 Request LIPID PANEL (97505)Indication: Hypercholesterolemia On: :18 Request CBC W/AUTO DIFF WBC (18754)Indication: Right flank pain On: :17 Request METABOLIC PANEL, COMPREHENSIVE (95176)Indication: Right flank pain On: :17 Request Vitamin D Hydroxy (07402)Indication: Vitamin D deficiency, unspecified On: :17 Request Urinalysis, Office (36424)Indication: Urinary frequency On: 78-Iej-267317:22 Request VITAMIN B-12 (CYANOCOBALAMIN) (69222)Indication: Other vitamin B12 deficiency anemia On: :28 Request Comments: Lot:[id number]:04/29Dose:1mlRoute:IMSite:r arm Given By:TAVON signed Vitamin D Hydroxy (58768)Indication: Vitamin D deficiency, unspecified On: :42 Request LIPID PANEL (34332)Indication: Hypercholesterolemia On: :42 Request METABOLIC PANEL, COMPREHENSIVE (10120)Indication: Essential hypertension On: :36 Request TSH (52796)Indication: Acquired hypothyroidism On: :36 Request CBC with auto diff (51978)Indication: Abdominal pain, acute, right lower quadrant On: :06 Request METABOLIC PANEL, COMPREHENSIVE (97233)Indication: Abdominal pain, acute, right lower quadrant On: :06 Request Urinalysis, Office (65895)Indication: Low Back Pain (Renamed from LBP (low back pain)) On: 92-Iml-391536:09 Request Vitamin D Hydroxy (00029)Indication: Vitamin D deficiency, unspecified On: 39-Ozd-319575:32 Request METABOLIC PANEL, COMPREHENSIVE (12861)Indication: Essential hypertension On: :31 Request LIPID PANEL (60426)Indication: Hypercholesterolemia On: :31 Request TSH (16236)Indication: Acquired hypothyroidism On: :31 Request LIPID PANEL (92396)Indication: Hypercholesterolemia On: :45 Request TSH (20302)Indication: Acquired hypothyroidism On: :44 Request METABOLIC PANEL, COMPREHENSIVE (57185)Indication: Essential hypertension On: :44 Request CBC, PLATELETS & AUT DIFF (82292)Indication: DEFICIENCY, B-COMPLEX NEC On: :43 Request VITAMIN B-12 (CYANOCOBALAMIN) (76764)Indication: DEFICIENCY, B-COMPLEX NEC On: 8-Dbh-031286:43 Request Vitamin D Hydroxy (23901)Indication: Vitamin D deficiency, unspecified On: :43 Request IRON (79275)Indication: Anemia On: 6-Vgm-099337:42 Request Vitamin D Hydroxy (98755)Indication: Vitamin D deficiency, unspecified On: 7-Vsa-122620:36 Request VITAMIN B-12 (CYANOCOBALAMIN) (05434)Indication: DEFICIENCY, B-COMPLEX NEC On: 9-Kkx-435869:35 Request CBC WITH MANUAL DIFF (10193)Indication: DEFICIENCY, B-COMPLEX NEC On: 8-Zkw-443648:35 Request METABOLIC PANEL, COMPREHENSIVE (55393)Indication: Essential hypertension On: 8-Dfx-995774:35 Request T3, FREE (TRIDOTHYRONINE) (74476)Indication: Acquired hypothyroidism On: 8-Fby-274446:35 Request T4, FREE (73467)Indication: Acquired hypothyroidism On: 2-Hbr-438842:35 Request TSH (02347)Indication: Acquired hypothyroidism On: 2-Rtn-501013:34 Request TSH (39836)Indication: Acquired hypothyroidism On: 11-Odx-642090:23 Request Comments: recheck in 6 weeks Metabolic Panel, Basic (08848)Indication: Essential hypertension On: 75-Cej-795683:16 Request TSH (30556)Indication: Acquired hypothyroidism On: 18-Mcz-786943:22 Request C-REACTIVE PROTEIN (62103)Indication: right lower quadrant pain On: :51 Request SED RATE ERYTHROCYTE (42979)Indication: right lower quadrant pain On: :51 Request Magnesium (52564)Indication: Leg cramps On: :43 Request CBC WITH MANUAL DIFF (49620)Indication: Edema leg On: :42 Request LIPID PANEL (99400)Indication: Hypercholesterolemia On: :41 Request METABOLIC PANEL, COMPREHENSIVE (01089)Indication: Essential hypertension On: :41 Request VITAMIN B-12 (CYANOCOBALAMIN) (34567)Indication: Other vitamin B12 deficiency anemia On: :41 Request Vitamin D Hydroxy (35437)Indication: Vitamin D deficiency, unspecified On: :41 Request Metabolic Panel, Basic (34476)Indication: Acute renal failure, unspecified acute renal failure type On: :31 Request TSH (03648)Indication: Acquired hypothyroidism On: :30 Request LIPID PANEL (64000)Indication: Hypercholesterolemia On: :39 Request Vitamin D Hydroxy (80321)Indication: Vitamin D deficiency, unspecified On: :39 Request VITAMIN B-12 (CYANOCOBALAMIN) (75206)Indication: Other vitamin B12 deficiency anemia On: :39 Request CBC WITH MANUAL DIFF (28726)Indication: Other vitamin B12 deficiency anemia On: :39 Request METABOLIC PANEL, COMPREHENSIVE (07402)Indication: Essential hypertension On: :39 Request Vitamin D Hydroxy (16249)Indication: Vitamin D deficiency, unspecified On: :37 Request LIPID PANEL (64431)Indication: Hypercholesterolemia On: :37 Request TSH (39452)Indication: Acquired hypothyroidism On: :37 Request CBC WITH MANUAL DIFF (55557)Indication: Essential hypertension On: :39 Request METABOLIC PANEL, COMPREHENSIVE (03651)Indication: Essential hypertension On: :39 Request VITAMIN B-12 (CYANOCOBALAMIN) (62432)Indication: b12 deficiency On: :39 Request LIPID PANEL ([id number])Indication: Hypercholesterolemia On: :39 Request Vitamin D Hydroxy (72428)Indication: Vitamin D deficiency, unspecified On: :32 Request VITAMIN B-12 (CYANOCOBALAMIN) (18490)Indication: b12 deficiency On: :32 Request Vitamin D Hydroxy (26714)Indication: Vitamin D deficiency, unspecified On: :32 Request METABOLIC PANEL, COMPREHENSIVE (94384)Indication: Essential hypertension On: :32 Request LIPID PANEL (61255)Indication: Hypercholesterolemia On: :32 Request TSH ([id number])Indication: Acquired hypothyroidism On: :32 Request CBC WITH MANUAL DIFF ([id number])Indication: Essential hypertension On: :30 Request METABOLIC PANEL, COMPREHENSIVE (26153)Indication: Essential hypertension On: :29 Request VITAMIN B-12 (CYANOCOBALAMIN) ([id number])Indication: DEFICIENCY, B-COMPLEX NEC On: :29 Request Vitamin D Hydroxy (24760)Indication: Vitamin D deficiency, unspecified On: :29 Request TSH ([id number])Indication: Acquired hypothyroidism On: :29 Request LIPID PANEL ([id number])Indication: Hypercholesterolemia On: :29 Request Vitamin B-12 (cyanocobalamin) (95869)Indication: b12 deficiency On: 78-Rbh-376879:01 Request CALCIFIDIOL (30132) VIT D 25Indication: Vitamin D deficiency, unspecified On: 22-Ocd-426639:00 Request TSH ([id number])Indication: Acquired hypothyroidism On: :34 Request LIPID PANEL ([id number])Indication: Hypercholesterolemia On: :34 Request Metabolic Panel, Basic ([id number])Indication: Essential hypertension On: :26 Request VITAMIN B-12 (CYANOCOBALAMIN) ([id number])Indication: DEFICIENCY, B-COMPLEX NEC On: :19 Request Vitamin D Hydroxy ([id number])Indication: Vitamin D deficiency, unspecified On: 04-Rbc-733826:19 Request VITAMIN D, 1, 25-DIHYDROXY ([id number])Indication: Vitamin D deficiency, unspecified On: 8-Kny-549518:19 Request Comments: Vit D [place] Vitamin B-12 (cyanocobalamin) ([id number])Indication: b12 deficiency On: 6-Tyk-011404:17 Request CBC WITH MANUAL DIFF ([id number])Indication: b12 deficiency On: 18-Hiv-801513:17 Request VITAMIN B-12 (CYANOCOBALAMIN) ([id number])Indication: b12 deficiency On: 23-Osa-050301:14 Request VITAMIN B-12 (CYANOCOBALAMIN) ([id number])Indication: Vitiligo On: 08-Rgm-831482:37 Request LIPID PANEL ([id number])Indication: Hypercholesterolemia On: 85-Bqc-594523:33 Request TSH ([id number])Indication: Acquired hypothyroidism On: 51-Czo-826097:32 Request Vitamin D Hydroxy ([id number])Indication: Vitamin D deficiency, unspecified On: 30-Ohf-626610:31 Request METABOLIC PANEL, COMPREHENSIVE (82211)Indication: Essential hypertension On: 31-Fcx-865724:42 Request Vitamin D Hydroxy ([id number])Indication: Vitamin D deficiency, unspecified On: 41-Utn-647606:42 Request CAROL (ANTINUCLEAR ANTIBODY) ([id number])Indication: Pain in unspecified joint On: :27 Request C-REACTIVE PROTEIN ([id number])Indication: Pain in unspecified joint On: :27 Request CBC WITH MANUAL DIFF ([id number])Indication: Pain in unspecified joint On: :27 Request CCP ANTIBODY ([id number])Indication: Pain in unspecified joint On: :27 Request METABOLIC PANEL, COMPREHENSIVE (91042)Indication: Pain in unspecified joint On: : Request RHEUMATOID FACTOR-QUANT (73791)Indication: Pain in unspecified joint On: : Request SED RATE ERYTHROCYTE ([id number])Indication: Pain in unspecified joint On: :27 Request TSH ([id number])Indication: Pain in unspecified joint On: :27 Request SED RATE ERYTHROCYTE ([id number])Indication: flank pain On: :35 Request C-REACTIVE PROTEIN ([id number])Indication: flank pain On: :35 Request METABOLIC PANEL, COMPREHENSIVE ([id number])Indication: flank pain On: :35 Request CBC WITH MANUAL DIFF ([id number])Indication: flank pain On: :35 Request URINE CESAR CULTURE (TUNDE COL COUNT) ([id number])Indication: flank pain On: :35 Request Thin prep Pap ([id number])Indication: Well woman exam with routine gynecological exam On: 2-Hea-283052:09 Request CBC WITH MANUAL DIFF ([id number])Indication: Essential hypertension On: :02 Request METABOLIC PANEL, COMPREHENSIVE (31288)Indication: Essential hypertension On: 11-Zvi-383414:02 Request LIPID PANEL ([id number])Indication: Hypercholesterolemia On: :02 Request METABOLIC PANEL, COMPREHENSIVE ([id number])Indication: Essential hypertension On: 98-Ipt-363279:18 Request TSH ([id number])Indication: Acquired hypothyroidism On: 78-Eji-968516:18 Request SED RATE ERYTHROCYTE ([id number])Indication: Abdominal pain, acute, left upper quadrant On: 43-Dgw-903221:09 Request C-REACTIVE PROTEIN ([id number])Indication: Abdominal pain, acute, left upper quadrant On: 91-Oqy-011155:09 Request CBC WITH MANUAL DIFF ([id number])Indication: edema On: 86-Ysw-697693:09 Request METABOLIC PANEL, COMPREHENSIVE ([id number])Indication: edema On: 86-Jui-739591:09 Request TSH ([id number])Indication: Acquired hypothyroidism On: 02-Uij-506860:03 Request CBC WITH MANUAL DIFF ([id number])Indication: Abdominal pain, acute, left upper quadrant On: 88-Lny-551092:22 Request Lipase ([id number])Indication: Abdominal pain, acute, left upper quadrant On: 03-Zns-466279:22 Request Amylase ([id number])Indication: Abdominal pain, acute, left upper quadrant On: 34-Gan-870403:21 Request Thin prep Pap (97301)Indication: Well woman exam with routine gynecological exam On: 16-Pew-738361:43 Request HEPATIC FUNCTION PANEL ([id number])Indication: Hypercholesterolemia On: 30-Zmv-576106:52 Request LIPID PANEL ([id number])Indication: Hypercholesterolemia On: 48-Quj-686845:52 Request CBC, PLATELETS & AUTO DIFF ([id number])Indication: Leukopenia On: 44-Wgr-510846:34 Request Planned Encounters Medical; SANDEEP 6 Month Fu - On: 03-Jul-2018 13:00 [facility] Fast DO, Kristine A Fast DO, Kristine A Planned Procedures DEXA SCAN AXIAL SKELETON ([id number])By: On: 02-Jan-2018 Intent Fast DO, Kristine A Fast DO, Kristine A Comments: mar - RenalBy: Fast DO, On: 02-Jan-2018 Intent Kristine A Fast DO, Kristine A Flu Vaccine (Quadrivalent) 78087Fh: On: 02-Jan-2018 Intent Fast DO, Kristine A Fast DO, Kristine A Comments: Lot #[id number]-8/30/2019Site-L dltd, IMDose prefilled syringegiven by: Melly reviewed and ABN signed ELECTROCARDIOGRAM, COMPLETE (ECG) On: 28-Aug-2017 Intent ([id number])By: Fast DO, Kristine A Fast Comments: ekg showed normal sinus rhythym, normal axis, no acute st/t wave changes DO, Kristine A SCREENING DIGITAL TOMOSYNTHESIS OF On: 28-Aug-2017 Intent BREAST ([id number])By: Fast DO, Kristine A Fast DO, Kristine A B 12 Injection, 1000 mcg (J3420)By: On: 15-Mar-2017 Intent Visit, Nurse Comments: [id number]/ANOOP Almodovar B 12 Injection, 1000 mcg (J3420)By: On: 22-Feb-2017 Intent Fast DO, Kristine A Fast DO, Kristine A Comments: lot: [id number]: 05/01site/route: L del/IMamt: 1mLVIS signed when applicableRAYMUNDO Huerta Flu Vaccine (Quadrivalent) 83249Tf: On: 17-Jan-2017 Intent Fast DO, Kristine A [...] (J3420)By: On: 12-Dec-2016 Intent Visit, Nurse Comments: 64865/2018R arm, IM1ml, 1000mcgML, ENGLISH ADJUNCT FACULTY B 12 Injection, 1000 mcg (J3420)By: On: [...] Kristine A Fast DO, Kristine A Comments: B12lot:[id number]:ite:lt deltroute:Imdose:1mlD.AYAD Jerez B 12 Injection, 1000 mcg [...] armGiven By:TAVON signed DEXA SCAN AXIAL SKELETON ([id number])By: On: 04-Apr-2016 Intent Fast DO, Kristine A Fast DO, Kristine A MRI LUMBAR SPINE W/O CONTRAST On: 04-Apr-2016 Intent ([id number])By: Fast DO, Kristine A Fast DO, Kristine [...] A ELECTROCARDIOGRAM, COMPLETE (ECG) On: 11-Dec-2015 Intent (52777)By: Fast DO, Kristine A Fast Comments: ekg [...] MAMMOGRAM, SCREENING, BOTH BREAST On: 21-Apr-2015 Intent ([id number])By: Fast DO, Kristine A Fast DO, Kristine A B 12 Injection, 1000 mcg (J3420)By: On: 21-Apr-2015 Intent Fast DO, Kristine A Fast DO, Kristine A Comments: Lot:[id number]:11/27Dose:1mlRoute:IMSite:r arm Given By:TAVON signed B 12 Injection, 1000 mcg (J3420)By: On: 16-Mar-2015 Intent Fast DO, Kristine A Fast DO, Kristine A Comments: lot: [id number]: 06/27site/route: L del/IMamt: 1mLVIS signed when applicableRAYMUNDO Pichardo B 12 Injection, 1000 mcg (J3420)By: On: 09-Feb-2015 Intent Fast DO, Kristine A Fast DO, Kristine A Comments: B12lot:[id number]:06/27site:lt deltoidroute:IMdose:1mlDEMICK, SMA B 12 Injection, 1000 mcg (J3420)By: On: 15-Jan-2015 Intent Hunter Jerez Comments: B 12Lot:[id number]:317site:lt deltoidroute:IMdose:.5mlDEMICK, SMA B 12 Injection, 1000 mcg (J3420)By: On: 10-Dec-2014 Intent Fast DO, Kristine A Fast DO, Kristine A Comments: lot [id number] - see ANOOP Mcallister CT - Abdomen & Pelvis (IV Contrast On: 16-Sep-2014 Intent Needed)By: Fast DO, Kristine A Fast DO, Kristine A B 12 Injection, 1000 mcg (J3420)By: On: 16-Sep-2014 Intent Fast DO, Kristine A Fast DO, Kristine A Comments: Lot:[id number]:11.16Route:IMSite:R deltoidDose: 1 mLgiven by: Carlita Ariza CMA [...] 1,000 mcgSite: l dltdLocation; IMby: Prevnar 13 (56740)By: Fast DO, On: 24-Mar-2014 Intent Kristine A Fast DO, Kristine A Comments: lot: [id number]: 3/16site/route: L del/IMamt: 0.5mLVIS signed when applicableRAYMUNDO Huerta Ultrasound - PelvisBy: Fast DO, On: 24-Mar-2014 Intent Kristine A Fast DO, Kristine A B 12 Injection, 1000 mcg (J3420)By: On: 24-Mar-2014 Intent Fast DO, Kristine A Fast DO, Kristine A Comments: lot: [id number]: 416site/route: R del/IMamt:1mlVIS signed when applicableChelsea, HOUSEHOLD APPLIANCES SALESPERSON B 12 Injection, 1000 mcg (J3420)By: On: 24-Feb-2014 Intent Silvia Burton LPN Comments: lot: [id number]: 4.16Dose: 1,000 mcgSite: l dltdLocation; IMby: B 12 Injection, 1000 mcg (J3420)By: On: 22-Jan-2014 Intent Fast DO, Kristine A Fast DO, Kristine A Comments: lot [id number] 08/2015location L armroute imgiven by - msmith VIS and/or ABN signed B 12 Injection, 1000 mcg (J3420)By: On: 30-Dec-2013 Intent Fast DO, Kristine A Fast DO, Kristine A Comments: lot [id number] 05/2015location L armroute imgiven by - msmithVIS [...] Fast Comments: today DO, Kristine A EKG ([id number])By: Fast DO, Kristine A On: 05-Nov-2013 Intent Fast DO, Kristine A Comments: ekg showed normal sinus rhythym, normal axis, no acute st/t wave changes B 12 Injection, 1000 mcg (J3420)By: On: 05-Nov-2013 Intent Fast DO, Kristine A Fast DO, Kristine A Comments: Lot:[id number]:11/24Dose:1mlRoute:IMSite:l armGiven By:TAVON signed PHYSICAL THERAPY EVALUATION On: 18-Oct-2013 Intent ([id number])By: Aquiles Potts CNP SPECIMEN HANDLING/TRANSPORT On: 18-Oct-2013 Intent ([id number])By: Aquiles Potts CNP B 12 Injection, 1000 mcg (J3420)By: On: 11-Oct-2013 Intent Aquiles Potts CNP Comments: Lot:[id number]:11/2013Dose:1mlRoute:IMSite:[place] By:TAVON signed B 12 Injection, 1000 mcg (J3420)By: On: 18-Sep-2013 Intent Fast DO, Kristine A Fast DO, Kristine A B 12 Injection, 1000 mcg (J3420)By: On: 07-Aug-2013 Intent Fast DO, Kristine A Fast DO, Kristine A Comments: lot: [id number]: ite/route: L del/IMamt: 1mLVIS signed when applicableChelsea, HOUSEHOLD APPLIANCES SALESPERSON MAMMOGRAM, SCREENING, BOTH BREASTS On: 24-Jun-2013 Intent ([id number])By: Fast DO, Kristine A Fast DO, Kristine A B 12 Injection, 1000 mcg (J3420)By: On: 24-Jun-2013 Intent Fast DO, Kristine A Fast DO, Kristine A Comments: Lot:[id number]:04/28Dose:1mlRoute:IMSite:[place] By:TAVON signed B 12 Injection, 1000 mcg (J3420)By: On: 15-May-2013 Intent Visit, Nurse Comments: Lot:[id number]:01/25Dose:1mlRoute:IMSite:[place] By:TAVON signed B 12 Injection, 1000 mcg (J3420)By: On: 22-Apr-2013 Intent Fast DO, Kristine A Fast DO, Kristine A Comments: lot: [id number]: 01/25site/route: L deltoid/IMamt: 1mLVIS signed when applicableChelsea, HOUSEHOLD APPLIANCES SALESPERSON B 12 Injection, 1000 mcg (J3420)By: On: 21-Mar-2013 Intent Fast DO, Kristine A Fast DO, Kristine A Comments: see flowsheetMegan PNEUM VAC ADLT/IMUMNOSPR, SBC/INTRM On: 18-Feb-2013 Intent (83237)By: Fast DO, Kristine A Fast Comments: Lot: [id number]: 54Zgr26Yep: 0.5mlRoute: IMSite: L deltoidGiven by: ANOOP Moralez DO, Kristine A ADMINISTRATION OF PNEUMOCOCCAL On: 18-Feb-2013 Intent VACCINE (G0009)By: Fast DO, Kristine A Fast DO, Kristine A Eprescribed prescriptions On: 18-Feb-2013 Intent (G8553)By: Deanna Michelle B 12 Injection, 1000 mcg (J3420)By: On: 02-Jan-2013 Intent Deanna Michelle Comments: lot: [id number]: 10/25site/route: L deltoid/IMamt: 1mLVIS signed when applicableChelsea, HOUSEHOLD APPLIANCES SALESPERSON B 12 Injection, 1000 mcg (J3420)By: On: [...] 08/24site/route: R deltoid/IMamt: 1mLVIS signed when applicableChelsea, HOUSEHOLD APPLIANCES SALESPERSON B 12 Injection, 1000 mcg (J3420)By: On: 28-Aug-2012 Intent Fast DO, Kristine A Fast DO, Kristine A Comments: Lot #:[id number] date:mount given:1mlRoute: IMSite given: left deltoidGiven by: AYAD Dailey B 12 Injection, 1000 mcg (J3420)By: On: 23-Jul-2012 Intent Fast DO, Kristine A Fast DO, Kristine A Comments: Lot: [id number]: 02/23Amt: 1000mcg/1mlRoute: IMSite: L Deltoid per pt [...] A Fast DO, Kristine A Comments: lot: [id number]:02/23site/route: L deltoid/IMamt: 1ccVIS signed when applicableChelsea, HOUSEHOLD APPLIANCES SALESPERSON B 12 Injection, 1000 mcg (J3420)By: On: 09-May-2012 Intent Kylee Castellon Comments: Lot:[id number]:02/2014Dose:1mlRoute:IMSite:L armGiven By:Jameson signed VENOUS DOPPLER LOWER EXTREMITY On: 18-Apr-2012 Intent ([id number])By: Fast DO, Kristine A Fast DO, Kristine A Radiology - Hip - RightBy: Fast DO, On: 06-Apr-2012 Intent Kristine A Fast DO, Kristine A Comments: call results B 12 Injection, 1000 mcg (J3420)By: On: 06-Apr-2012 Intent Lisandra Chilel Comments: Lot #[id number]-41/14Site-left deltoidDose-1 mlgiven by: Omkar Rivera LPN Eprescribed prescriptions On: 06-Apr-2012 Intent (G8553)By: Lisandra Chilel Inhaler Demo ([id number])By: Fast DO, On: 06-Feb-2012 Intent Kristine A Fast DO, Kristine A B 12 Injection, 1000 mcg (J3420)By: On: 06-Feb-2012 Intent Kylee Castellon Comments: Lot:[id number]:Dose:1mlRoute:IMSite:L armGiven By:TAVON signed MAMMOGRAM, SCREENING, BOTH BREASTS On: 06-Feb-2012 Intent (81484)By: Fast DO, Kristine A Fast DO, Kristine [...] 1000 mcg (J3420)By: On: 31-Oct-2011 Intent Chani aCrreon LPN Comments: Lot: [id number]: Febmt: 1ml/1000mcgRoute: IMSite: [...] Coverage Instructions Apply. See CIM: 45-4 and [facility]: 2049) (J3420)By: Licha Almaguer LPN Breast Ultrasound - LeftBy: Ciesa On: 22-Jun-2011 Intent Aquiles DEWEY E B 12 Injection, 1000 mcg (J3420)By: On: 22-Jun-2011 Intent Ciesa TUBE KNITTER, Judy Comments: Lot #[id number]-01/23Site-right deltoidDose-1 mlgiven by: [...] mlRoute: IMSite given: left deltoidGiven by: AMI Alcarazpreparole counseling aide - Cervical SpineBy: Fast On: 13-Apr-2011 Intent DO, Kristine A Fast DO, Kristine A TD Injection , IM (23266)By: On: 13-Apr-2011 Intent Lisandra Chilel Comments: received in 2005 B 12 Injection, 1000 mcg (J3420)By: On: 29-Mar-2011 Intent Kateryna Lunsford MD Comments: Lot #[id number]-8.13Site-Left arm, IMDose 0.5mlgiven by:Татьяна B 12 Injection, 1000 mcg (J3420)By: On: 08-Feb-2011 Intent Татьяна Vera LPN Comments: Lot [id number]#Exp-7.13Site-R arm, IMDose 1mlgiven by:Татьяна DXA, BONE DENSITY, AXIAL SKELETON On: 24-Jan-2011 Intent (86704)By: Lisandra Chilel Comments: post menopausal wihtout estrogen FLU VAC, SPLIT, >3 YEARS, INTRAMUSC On: 24-Jan-2011 Intent (25275)By: Lisandra Chilel Comments: received at [facility] B 12 Injection, 1000 mcg (J3420)By: On: 21-Dec-2010 Intent Licha Almaguer LPN INJECTION, VITAMIN B-12 On: 19-Nov-2010 Intent CYANOCOBALAMIN, UP TO 1000 MCG Comments: Lot:[id number]:04/25Amt:1mlRoute:IMSite:left deltGiven By: ANOOP Sotelo (Special Coverage Instructions Apply. See CIM: 45-4 and MCM: 2049) (J3420)By: Vi Ramirez EKG (40388)By: Lisandra Chilel On: 05-Nov-2010 Intent Comments: ekg showed normal sinus rhythym, normal axis, no acute st/t wave changes MAMMOGRAM, SCREENING, BOTH BREASTS On: 05-Nov-2010 Intent (89768)By: Fast DO, Kristine A Fast DO, Kristine [...] Comments: Lot:[id number]:01/22Amt:1 mlRoute:IM Site:left deltGiven By: ANOOP Soetlo LE Arterial Exam with TreadmillBy: On: 07-Jul-2010 Intent Fast DO, Kristine A Fast DO, Kristine A B 12 Injection, 1000 mcg (J3420)By: On: 03-Jun-2010 Intent Yasmeen Rivera LPN Comments: Lot #[id number]/12Site-left deltoidDose-1 mlgiven by:[facility] IMMUNIZ ADMNIN, 1 VAC, SNGL/COMBO On: 19-Apr-2010 Intent (12733)By: Yasmeen Rivera LPN Comments: Lot #[id number]-5/28/02Site-left deltoidDose- 0.85mlgiven by:[facility] ZOSTER VACC, [place] (52034)By: Miguel On: 19-Apr-2010 Intent Yasmeen DAVALOS B [...] Rivera LPN Comments: Lot #[id number]-left deltoidDose-1 mlgiven by:[facility] FLU VAC, SPLIT, >3 YEARS, INTRAMUSC On: 30-Dec-2009 Intent (45117)By: Lisandra Chilel Comments: Lot #[id number]-6/11Site-left deltoidgiven by:PRICE B 12 Injection, 1000 mcg (J3420)By: On: 30-Dec-2009 Intent Lisandra Chilel Comments: Lot #[id number]-/12Site-right deltoidDose-1 mlgiven by:PRICE Renal Duplex ScanBy: Fast DO, Kristine On: 30-Dec-2009 Intent A Fast DO, Kristine A IMMUNIZ ADMNIN, 1 VAC, SNGL/COMBO On: 30-Dec-2009 Intent (87356)By: Lisandra Chilel B 12 Injection, 1000 mcg (J3420)By: On: 14-Dec-2009 Intent Shayna Harris Comments: Lot:[id number]:12Dose:1000mcg/1mlRoute:IMSite:right deltoid Given by: AYAD Gil B 12 Injection, 1000 mcg (J3420)By: On: 26-Nov-2009 Intent Mast Phyllis MUELLER Comments: documented in flowsheet B 12 Injection, 1000 mcg (J3420)By: On: 19-Oct-2009 Intent Yasmeen Rivera LPN Comments: Lot #[id number]-04/24Site-left deltoidDose-1 mlgiven by:[facility] B 12 Injection, 1000 mcg (J3420)By: On: 13-Oct-2009 Intent Shayna Harris Comments: Lot:[id number]:04/24Dose:1000mcg/1mlRoute:imSite:right sideGiven by: AYAD Gil B 12 Injection, 1000 mcg (J3420)By: On: 06-Oct-2009 Intent Fast DO, Kristine A Fast DO, Kristine A Comments: Lot #[id number]-04/24Site-right deltoidDose- 1 mlgiven by:[facility] MRI - BrainBy: Fast DO, Kristine [...] do this week and call ressults EKG (51678)By: Fast DO, Kristine A On: 17-Dec-2008 Intent Fast DO, Kristine A Comments: ekg showed normal sinus rhythym, normal axis, no acute st/t wave changes MAMMOGRAM, SCREENING, BOTH BREASTS On: 17-Dec-2008 Intent (15509)By: Fast DO, Kristine A Fast DO, Kristine A MRI - Lumbar SpineBy: Fast DO, On: 17-Dec-2008 Intent Kristine A Fast DO, Kristine A FLU VAC, SPLIT, >3 YEARS, INTRAMUSC On: 17-Dec-2008 Intent (22043)By: Lisandra Chilel Comments: Lot #:[id number] date:mount given:0.5mlRoute: IMSite given:left deltoidGiven by: AYAD Dailey ADMINISTRATION OF INFLUENZA VIRUS On: 17-Dec-2008 Intent VACCINE (G0008)By: Lisandra Chilel CT - Abdomen & Pelvis Stone On: 18-Aug-2008 Intent ProtocolBy: Kristine Davis DO A Antwan Comments: stat -call results Cuauhtemoc MIXa A Radiology - Chest- PA and LatBy: On: 24-Mar-2008 Intent Antwan MIX Kristine A Antwan DO, Kristine A Spirometry (32897)By: Antwan MIX, On: 24-Mar-2008 Intent Kristinerafi Davis DO, Kristine A Comments: good effort and curve minimal decrease small airways ADMINISTRATION OF PNEUMOCOCCAL On: 17-Dec-2007 Intent VACCINE (G0009)By: Kristine Davis DO A Antwan MIX Kristine A PNEUM VAC ADLT/IMUMNOSPR, SBC/INTRM On: 18-Dec-2007 Intent ([id number])By: Kristine Davis DO Comments: Lot #:[id number] date:08/19Amount given:0.5mlRoute: IMSite given:left deltGiven by: AYAD Dailey DO, Kristine A MAMMOGRAM, SCREENING, BOTH BREASTS On: 17-Dec-2007 Intent (49616)By: Kristine Davis DO A Antwan Comments: end of feb DO, Kristine A DXA, BONE DENSITY, AXIAL SKELETON On: 31-Oct-2007 Intent (04238)By: Kristine Davis DO A Antwan DO Kristine A Echo CompleteBy: Antwan DO, Kristine A On: 25-Jul-2007 Intent Antwan DO Kristine A Bio Z (93743)By: Antwan MIX Kristine A On: 25-Jul-2007 Intent Antwan DO Kristine A Comments: good cardiac output and no excesive gfluid EKG (13591)By: Antwan MIX Kristine A On: 25-Jul-2007 Intent Antwan DO Kristine A Comments: ekg showed normal sinus rhythym, normal axis, no acute st/t wave changes CT - Abdomen & Pelvis (IV Contrast On: 11-Jul-2007 Intent Needed)By: Adrianna Morgan DO MAMMOGRAM, SCREENING, BOTH BREASTS On: 27-Mar-2006 Intent (71880)By: Adrianna Morgan DO Planned Medications Vitamin B-12 [...] MCG/ML Injection Solution Ordered: 22-Apr-2014 Pending Slarb ENGLISH ADJUNCT FACULTY, Silvia Vitamin B-12 1000 MCG/ML Injection Solution Ordered: 24-Mar-2014 Pending Fast DO, Kristine A Fast DO, Kristine A Vitamin B-12 1000 MCG/ML Injection Solution Ordered: 24-Feb-2014 Pending Slarb ENGLISH ADJUNCT FACULTY, Silvia Vitamin B-12 1000 MCG/ML Injection Solution [...] MCG/ML Injection Solution Ordered: 11-Dec-2015 Pending Emick, Emanuel Vitamin B-12 1000 MCG/ML Injection Solution Ordered: 05-Nov-2015 Pending Emick, Emanuel Vitamin B-12 1000 MCG/ML Injection Solution Ordered: [...] MCG/ML Injection Solution Ordered: 19-Apr-2010 Pending Radhauszti ENGLISH ADJUNCT FACULTY, Yasmeen Vitamin B-12 1000 MCG/ML Injection Solution [...] went well- she saw Dr Mckeon in [facility] for pain management - had inje [...] procedure: (10 End: 10-Dec-2014 21:34 /19/15 at [facility] with dr Mahesh stokes) . There have been no problems with general anesthesia or blood/blood products. Prosthetics include: dentures (partial). Note for Preoperative evaluation: Lef t tka at [facility] on dec 29- Dr Stokes- having [...] scleroderma, leukopenia). 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 [...] the rare occ that she takes at [facility] but doesnt know accuracy, [ADDITIONAL REASON] [...]
--- OUTSIDE RECORDS SUMMARY | 2018-06-01 23:44 | XMS RPT_ITS | Continuity of Care Document ---
:1940 Author Organization [facility] Address [address] [place] [address] Phone Care Team Providers Name Role Phone Kristine Davis DO Unavailable Dr. Niels Molina Unavailable Jacque Concepcion Unavailable Belkis Nicole Unavailable Deanna Michelle Unavailable Unavailable Veena iLnn Unavailable Unavailable Unavailable Unavailable Problems Name Dates [...] 90 days Quantity: 90 {Tablet} Refills: 3 Ordered:17-Jan-2017 Fast Cuauhtemoc MIXa Lamar MIX Kristine A Start : 17-Jan-2017 Active Amoxicillin 500 MG Oral Capsule 4 [...] : 02-Mar-2016 Active Comments:[facility] report#[id number], df approved and given to pt-jf 03/02/16 Imipramine HCl 25 MG Oral Tablet 1 (one) Tablet qhs prn for 0 days Quantity: 30 {Tablet} Refills: 1 Ordered:14-Jul-2017 Fast DO, Kristine AFast DO, Kristine A Start : 14-Jul-2017 Active Comments:verbally called to [facility] - cmanchak 5/4 Leg Cramps [...] 0 days Quantity: 90 {Capsule} Refills: 3 Ordered:18-Jan-2017 Fast DO, Kristine AFast DO, Kristine A Start : 18-Jan-2017 Active LUTEIN, 6MG (Oral Capsule) 1 BID for 0 days Refills: 0 Ordered:18-Dec-2008 Lisandra ChilelActive Mobic 15 MG Oral Tablet 1 (one) Tablet qod for 90 days Quantity: 90 {Tablet} Refills: 3 Ordered:18-Jan-2017 Fast DO, Kristine AFast DO, Kristine A Start : 18-Jan-2017 Active Quinine 2.5mg q hs Active TiZANidine HCl 4 MG Oral Capsule 1 (one) Capsule qd for 90 days Quantity: 90 {Capsule} Refills: 1 Ordered:18-Aug-2017 Kateryna Lunsford MD Start : 18-Aug-2017 Active Tumeric 800mg bid Active UBIQUINOL, 100MG (Oral Capsule) 1 cap daily (100 MG) Active Vitamin D3 09264 UNIT Oral Capsule 1 (one) Capsule once [...] Quantity: 60 {Tablet} Refills: 3 Ordered:24-Jan-2011 Lisandra Chille Start : 30-Dec-2009 End : 24-Jan-2011 Inactive [...] days Quantity: 30 {Tablet} Refills: 3 Ordered:26-Feb-2007 hPyllis Escobar RN Start : 26-Feb-2007 End : [...] : 11-Jul-2007 End : 08-Aug-2007 Discontinued Drisdol 76133 UNIT Oral Capsule 1 (one) Capsule once [...] Chilel End : 08-Aug-2007 Discontinued VITAMIN D, 92994LLTB (Oral Capsule) 1 cap q week (54967 UNIT) Start : 27-Mar-2013 End : 27-Mar-2013 Discontinued Comments:This order discontinued per [employer]. VITAMIN D, 66644VQMS (Oral Capsule) 1 cap Capsule q week [...] and Bladder Result: Comments: See Note; NOTES: [facility] Imaging Services [address] [place] [address] Kidney and Bladder MR#: [id number] Acct: [id number] Name: VIRGINIA URRUTIA Rep #: [id number] : 1940 F 77 From: Doug Sinclair DO PCP: Kristine Davis DO Status: REG CLI Study: Kidney and Bladder Date of Exam: 01/11/18 Exam# [id number] Ordering Dr: Kristine Davis DO STUDY: RENAL [...] Doug Sinclair DO at 23:00 EDT Tel [phone], Service support , CC: Kristine Davis DO Final Inspector Truck Trailer: Signed 05-Oct-2017 TXT - Blood Flow Screening Result: Comments: See Note; NOTES: [facility] Cardiovascular Services [address] [place] [address] 10/02/17 0928 MR#: [id number] Acct: [id number] Name: VIRGINIA URRUTIA Rep #: [id number] [...] DO Date Dictated: 10/02/1728 Date Transcribed: 10/05/171656 Final Inspector Truck Trailer: Signed 02-Oct-2017 SCREENING MAMM (CAD), BILAT Result: Comments: See Note; NOTES: [facility] Imaging Services [address] [place] [address] SCREENING MAMM (CAD), BILAT MR#: [id number] Acct: [id number] Name: VIRGINIA URRUTIA Rep #: [id number] : 1940 F 76 From: Noel Avitia MD PCP: Kristine Davis DO Status: REG CLI Study: SCREENING MAMM (CAD), BILAT Date of Exam: 10/02/17 Exam# [id number] Ordering Dr: Kristine Davis DO MAMMOGRAPHY - [...] Service support , CC: Kristine Davis DO Final Inspector Truck Trailer: Signed 14-Sep-2016 Venous Duplex Lower Extremity Result: Comments: See Note; NOTES: [facility] Cardiovascular Services [address] [place] [address] Venous Duplex US, Unilateral 09/14/16 1558 MR#: [id number] Acct: [id number] Name: VIRGINIA YEH Rep #: [id number] : 1940 75 From: Johan Ortega MD [...] Date Dictated: 09/14/16 1558 Date Transcribed: 09/14/16 2611 Final Inspector Truck Trailer: Signed 23-Aug-2016 Re-Evaluation - PT (1) Result: Comments: See Note; NOTES: [facility] Physical Therapy [facility] [address] [place] [address] Fax REEVALUATION / MEDICARE RECERTI MATTHIAS Zamora 4d PHYSICAL THERAPY MR#: [id number] Acct: [id number] Name: VIRGINIA URRUTIA Rep #: [id number] : 1940 75 From: Humberto Aguilar DPT, OCS, CSCS Referring DrDav: OUT OF TOWN DOCTOR Status : REG RCR Insurance: [facility] Out of [facility] Doctor, It has been my pleasure [...] do not hesitate to contact me at [phone] by phone or if you have questions or concerns regarding this new plan of care! Sincerely, Humberto Aguilar DPT, OC <Electronically signed by Humberto Aguilar DPT, PACHECO, CSCS> 08/23/16 0929 CC: Kristine Davis DO; OUT OF TOWN DOCTOR EBG Signed For Medicare only, by signing this I certify the plan of care. Physicians Signature Date 29-Jul-2016 Inital Evaluation (1) - PT Result: Comments: See Note; NOTES: [facility] [address] [place] [address] Fax REHABILITATION SERVICES INITIAL EVALUATION MR#: [id number] Acct: [id number] Name: VIRGINIA URRUTIA Rep #: [id number] : 1940 75 From: Humberto Aguilar DPT, OCS, CSCS Referring : OUT OF TOWN DOCTOR Status: REG RCR Insurance: AE [employer] [facility] Patient's Visit Information VIRGINIA URRUTIA is a 75 year old F referred to Physical Therapy by Out [facility] Doctor with a diagnosis of L knee pain s/p L TKA. Date of Evaluation: 07/29/16 Phys ical Therapist: SAHIL DelacruzT, OC - Visit Plan Frequency: 3x /Week [...] to be FAXED BACK to us at [phone] for Medica re purposes. Please let me know if there are questions or concerns regarding this plan of care. Physician Signature: Date: <Elec tronically signed by Humberto Aguilar DPT, OCS, CSCS> 07/29/16 9227 CC: Kristine Davis DO; OUT OF TOWN DOCTOR EBG Signed For Medicare only, by signing this I certify the pl an of care. Physicians Signature Date 19-Apr-2016 Emergency Department Summary Result: Comments: See Note; NOTES: [facility] Medical Records Department [address] [place] [address] Emergency Department Summary MR#: [id number] Acct: [id number] Name: VIRGINIA URRUTIA Rep #: [id number] : 1940 75 From: Byron Harris MD PCP: Kristine Davis DO Status: [facility] ER DATE OF SERVICE: 04/14/2016 METHOD OF [...] Angel Douglas C: Kristine Davis DO T: [facility] JOB: [id number] 04/19/16 1814 <Electronically signed by Byron Harris MD> Date Byron Harris MD Cosigner Signature (If Indicated): Date CC: Kristine Davis DO Date Dictated: 04/15/1634 Date Transcrib ed: 04/15/1634 Final Inspector Truck Trailer: Signed 15-Apr-2016 Discharge Instruction Result: Comments: See Note; NOTES: [facility] Medical Records Department [address] [place] [address] Discharge Instruction 04/14/162306 MR#: [id number] Acct: [id number] Name: VIRGINIA URRUTIA Rep #: [id number] : 1940 75 From: Byron Harris MD [...] your Primary Care Provider. Call Doctors Registry ([phone]) or report to the closest Emergency Room. Call 911 if necessary. 04/15/16 0118 &#6 0;Electronically signed by Byron Harris MD> Date Byron Harris MD Cosigner Signature (If Indicated): Date CC: Kristine Davis DO 14-Apr-2016 Venous Duplex Imag/Limited/Uni Result: Comments: See Note; NOTES: [facility] Imaging Services [address] [place] [address] Verdana 4d Venous Duplex Imag/Limited/Uni MR#: [id number] Acct: [id number] Name: RHONA URRUTIA Rep #: [id number] : 1940 F 75 From: Doug Sinclair DO PCP: Kristine Davis DO Status: REG ER Study: Venous Duplex Imag/Limited/Uni Date of Exam: 04/14/16 Exam# [id number] Ordering Dr: Byron Harris MD STUDY: VENOUS [...] Doug Sinclair DO at 23:15 EST Tel [phone], Service support [phone], CC: Kristine Davis DO; Byron Harris MD Final Inspector Truck Trailer: Signed 13-Apr-2016 Spine Lumbar (Routine) Result: Comments: See Note; NOTES: [facility] Imaging Services [address] [place] [address] Verdana 4d Spine Lumbar (Routine) MR#: [id number] Acct: [id number] Name: VIRGINIA URRUTIA p #: [id number] : 1940 F 75 From: Tiara Parsons MD PCP: Kristine Davis DO Status: REG CLI Study: Spine Lumbar (Routine) Date of Exam: 04/13/16 Exam# [id number] Ordering Dr: Kristine Davis DO STUDY: MRI [...] MD at 11:48 EST , Service support [phone], CC: Kristine Davis DO Final Inspector Truck Trailer: Signed 12-Apr-2016 PT D/C Summary (1) Result: Comments: See Note; NOTES: [facility] Physical Therapy [address] [place] [address] Fax REHABILITATION SERVICES DISCHAR SUMMARY MR#: [id number] Acct: [id number] Name: VIRGINIA URRUTIA Rep #: [id number] : 1940 75 From: Humberto Aguilar DPT, OCS, CSCS Referring : Kristine Davis DO Status: REG RCR [facility] - PT D/C Summary It has been my pleasure to treat VIRGINIA URRUTIA under orders from Kristine Davis DO, for the diagnosis of R hip pain for a total of 12 visit(s). Discharge Date: Please see the [facility] information for a summary of their [...] please feel free to call me at [phone]. Thank yo sridevi for the referral of this patient. Sincerely, Humberto Aguilar DPT, OC <Electronically signed by Humberto Aguilar DPT, OCS, CSCS> 04/12/16 1621 CC: Kristine Davis DO EBG Signed 12-Apr-2016 Dexa Bone Density Study (HP) Result: Comments: See Note; NOTES: [facility] Imaging Services [address] [place] [address] Verdana 4d Dexa Bone Density Study () MR#: [id number] Acct: [id number] Name: ENE URRUTIA Rep #: [id number] : 1940 F 75 From: Dashawn Rowe MD PCP: Kristine Davis DO Status: REG CLI Study: Dexa Bone Density Study () Date of Exam: 04/12/16 Exam# [id number] Ordering Dr: Magallanes DO STUDY: DUAL ENERGY [...] Dashawn Rowe MD at 14:32 EST Tel [phone], Service support [phone], CC: Kristine Davis DO Final Inspector Truck Trailer: Signed 10-Mar-2016 Inital Evaluation (1) - PT Result: Comments: See Note; NOTES: [facility] [address] [place] [address]. [address] [place] [phone] Fax REHABILITATION SERVICES INITIAL EVALUATION MR#: [id number] Acct: [id number] Name: VIRGINIA URRUTIA Rep #: [id number] : 1940 75 From: Jennifer Gongora DPT Referring DrDav: Kristine Davis DO Status: REG RCR [facility] Information VIRGINIA URRUTIA is a 75 [...] to be FAXED BACK to us at [phone] for Medicare purposes. Please let me know if there are questio ns or concerns regarding this plan of care. Physician Signature: Date: <Electronically signed by Jennifer Gongora DPT> 1243 CC: Kristine Davis DO ELR Signed For Medicare only, by signing this I certify the plan of care. Physicians Signature Date 17-Dec-2015 Echocardiogram Complete Result: Comments: See Note; NOTES: [facility] Cardiovascular Services [address] [place] [address] Echo Complete 12/17/15 1401 MR#: [id number] Acct: [id number] Name: VIRGINIA URRUTIA Rep #: [id number] : 1940 75 From: Chicho Bahena MD Attending Dr: Kristine Davis DO Status: REG CLI Ordering Dr: Kristine Davis DO Date: 12/17/15 Location: [facility] Sex: F C Admitted: Reason [...] Date Dictated: 12/17/15 1401 Date Transcribed: 12/17/151700 Final Inspector Truck Trailer: Signed 11-Dec-2015 Bilat Scrn Digital AND CAD Result: Comments: See Note; NOTES: [facility] Imaging Services [address] [place] [address] Verdana 4d Bilat Scrn Digital AND CAD MR#: [id number] Acct: [id number] Name: VIRGINIA URRUTIA Rep #: [id number] : 1940 F 75 From: Dashawn Rowe MD PCP: Kristine Davis DO Status: REG CLI Study: Bilvictor m [place] Digital AND CAD Date of Exam: 12/11/15 Exam# [id number] Ordering Dr: Kristine Davis DO MAMMOGRAPHY - [...] no significant change since the prior s dy. BI/Bilat Scrn Digital AND CAD IMPRESSION: Stable bilateral screening mammogram. Yearly follow-up mammogram recommended. (A) ASSESSMENT CATEGORY: BIRADS Category 1: Negative. A letter regarding these results will be sent to the patient by the facility within 30 days. Approximately 10% of breast canc ers are not detected by mammography. A normal mammogram should not delay biopsy of a clinically suspicious abnormality. [id number] Electronically Signed: Dashawn Rowe MD at 8:47 EDT Tel [phone], Service support [phone], CC: Kristine Davis DO Final Inspector Truck Trailer: Signed 03-Jan-2015 Emergency Department Summary Result: Comments: See Note; NOTES: [facility] Medical Records Department [address] [place] [address] Emergency Department Summary MR#: [id number] Acct: [id number] Name: VIRGINIA URRUTIA Mook Rep #: [id number] : 1940 74 From: Ivette Cline PCP: [...] Kristine Davis DO T: [facility] JOB: [id number] 01/03/15 3424 <Electronically signed b angle Cline > Date Ivette Cline Cosigner Signature (If Indicated): Date CC: Kristine Davis DO Date Dictated: 12/27/141108 Date Transcribed: 12/27/141108 Final Inspector Truck Trailer: Signed 27-Dec-2014 Discharge Instruction Result: Comments: See Note; NOTES: [facility] Medical Records Department [address] [place] [address] Discharge Instruction 12/27/14 1100 MR#: [id number] Acct: [id number] Name: VIRGINIA URRUTIA Rep #: [id number] : 1940 74 From: Ivette Cline PCP: [...] problems, contact your doctor. Call [facility] Registry ([phone]) or report to the closest Emergency Room. Call 911 if necessary. 12/27/141105 <Electronically signed by Ivette Cline > Date Ivette Cline Cosigner Signature (If Indicated): Date _ CC: Kristine Davis DO 27-Dec-2014 Spine Cervical without Contras Result: Comments: See Note; NOTES: [facility] Imaging Services [address] [place] [address] Verdana 4d Spine Cervical without Contras MR#: [id number] Acct: [id number] Na me: VIRGINIA URRUTIA Rep #: [id number] : 1940 F 74 From: Doug Sinclair DO PCP: Antwan DOKristine Status: REG ER Study: Spine Cervical without Contras Date of Exam: 12/27/14 Exam# [id number] Ordering Dr : Ivette Cline STUDY: CT [...] Doug Sinclair DO at 10:36 EDT Tel [phone], Service suppo rt [phone], CC: Ivette Cline; Kristine Davis DO Final Inspector Truck Trailer: Signed 23-Dec-2014 Emergency Department Summary Result: Comments: See Note; NOTES: [facility] Medical Records Department [address] [place] [address] Emergency Department Summary MR#: [id number] Acct: [id number] Name: VIRGINIA URRUTIA Rep #: [id number] : 1940 74 From: Se Dawkins MD PCP: Kristine Davis DO Status: [facility] ER DATE OF SERVICE: 12/23/2014 CHIEF COMPLAINT: [...] acute. Se Dawkins MD T: [facility] JOB: [id number] 12/23/14799 <Electronically signed by Se aDwkins MD> Date Se Dawkins MD Cosigner Signature (If Indicated): Date CC: Kristine Davis DO Date Dictated: 12/23/14707 Date Transcribed: 12/23/14707 Final Inspector Truck Trailer: Signed 23-Dec-2014 Discharge Instruction Result: Comments: See Note; NOTES: [facility] Medical Records Department [address] [place] [address] Discharge Instruction 12/23/14704 MR#: [id number] Acct: [id number] Name: VIRGINIA URRUTIA Rep #: [id number] : 1940 74 From: Se Dawkins MD [...] problems, contact your doctor. Call [facility] Registry ([phone]) or r aartirt to the closest Emergency Room. Call 911 if necessary. 12/23/14705 <Electronically signed by Se Dawkins MD> Date Se collins MD Cosigner Signature (If Indicated): Date CC: Kristine Davis DO 10-Dec-2014 ELECTROCARDIOGRAM, COMPLETE (ECG) (41584) Result: [MEASUREMENTS ANALYSIS] Date of Test: 12/10/2014 10:23:24; Heart Rate: 91; TX Interval: 144; QRS: 96; QT Interval: 372; Corrected QT Interval (QTc): 426; P Wave [place]: 49; QRS Wave [place]: 35; T Wave [place]: 30; Blood Pressure: 0/0 [ECG DIAGNOSTIC STATEMENTS] Date of Test: 12/10/2014 10:23:24; Summary: Sinus Rhythm Low voltage in limb leads. ABNORMAL 22-Sep-2014 Abdomen/Pelvis WITH Contrast Result: Comments: See Note; NOTES: [facility] Imaging Services [address] [place] [address] CAT Scan Report MR#: [id number] Acct: [id number] Name: VIRGINIA URRUTIA Rep #: [id number] : 1940 F 73 From: Rey Rojo MD PCP: Kristine Davis DO Status: REG CLI Study: Abdomen/Pelvis WITH Contrast Date of Exam: 09/22/14 Exam# [id number] Ordering Dr: Kristine Davis DO STUDY : [...] Rojo MD at 16:58 EDT Te l [phone], Service support [phone], CC: Kristine Davis DO Final Inspector Truck Trailer: Signed 31-Mar-2014 Transvaginal Non- Result: Comments: See Note; NOTES: [facility] Imaging Services [address] [place] [address] Ultrasound Report MR#: [id number] Acct: [id number] Name: VIRGINIA URRUTIA Rep #: [id number] : 1940 F 73 From: Dashawn Rowe MD PCP: Kristine Davis DO Status: REG CLI Study: Transvaginal Non- Date of Exam: 03/31/14 Exam# [id number] Ordering Dr: Kristine Davis DO STUD Y: [...] seen within the uterus. Electronically Signed: Dashawn Roew MD at 13:55 EST Tel [phone], Service support [phone], F ax [phone] CC: Kristine Davis DO Final Inspector Truck Trailer: Signed 31-Mar-2014 Pelvic (Non ) Result: Comments: See Note; NOTES: [facility] Imaging Services [address] [place] [address] Ultrasound Report MR#: [id number] Acct: [id number] Name: VIRGINIA URRUTIA Rep #: [id number] : 1940 F 73 From: Dashawn Rowe MD PCP: Kristine Davis DO Status: REG CLI Study: Pelvic (Non ) Date of Exam: 03/31/14 Exam# [id number] Ordering Dr: Kristine Davis DO STUDY: U [...] Dashawn Rowe MD at 13:55 EST Tel [phone], Service support [phone], Fax CC: Kristine Davis DO Final Inspector Truck Trailer: Signed 22-Jan-2014 Bilvictor m Esparza Digital & CAD Result: Comments: See Note; NOTES: [facility] Imaging Services [address] [place] [address] Breast Imaging Report MR#: [id number] Acct: [id number] Name: VIRGINIA URRUTIA Rep #: [id number] : 1940 F 73 From: Dashawn Rowe MD PCP: Kristine Davis DO Status: REG CLI Exam# [id number] Ordering Dr: Kristine Davis DO MAMMOGRAPHY - [...] Dashawn Rowe MD at 14:49 EST Tel [phone], Ser vice support [phone], CC: Kristine Davis DO Final Inspector Truck Trailer: Signed 07-Nov-2013 L/S Spine Min 4 Views Result: Comments: See Note; NOTES: [facility] Imaging Services [address] [place] [address] Radiology Report MR#: [id number] Acct: [id number] Name: VIRGINIA URRUTIA Rep #: [id number] : 1940 F 73 From: Tod Lamas MD PCP: Kristine Davis DO Status: REG CLI Study: L/S Spine Min 4 Views Date of Exam: 11/07/13 Exam# [id number] Ordering Dr: Kristine Davis DO STUDY: X-RA [...] at 18:52 EDT Tel , Service support [phone], CC: Kristine Davis DO Final Inspector Truck Trailer: Signed 07-Nov-2013 Thoracic Spine 3 Views Result: Comments: See Note; NOTES: [facility] Imaging Services [address] [place] [address] Radiology Report MR#: [id number] Acct: [id number] Name: VIRGINIA URRUTIA Rep #: [id number] : 1940 F 73 From: Tod Lamas MD PCP: Kristine Davis DO Status: REG CLI Study: Thoracic Spine 3 Views Date of Exam: 11/07/13 Exam# [id number] Ordering Dr: Kristine Davis DO STUDY: X-R [...] at 17:07 EDT Tel , Service support [phone], CC: Kristine Davis DO Final Inspector Truck Trailer: Signed 05-Nov-2013 Abdomen/Pelvis without Cont Result: Comments: See Note; NOTES: [facility] Imaging Services [address] [place] [address] CAT Scan Report MR#: [id number] Acct: [id number] Name: VIRGINIA URRUTIA Rep #: [id number] : 1940 F 73 From: Dashawn Rowe MD PCP: Kristine Davis DO Status: REG CLI Study: Abdomen/Pelvis without Cont Date of Exam: 11/05/13 Exam# [id number] Ordering Dr: Kristine Davis DO STUD Y: [...] Dashawn Rowe MD at 15:39 EDT Tel [phone], Service supp ort [phone], CC: Kristine Davis DO Final Inspector Truck Trailer: Signed 07-Oct-2013 Kidney and Bladder Result: Comments: See Note; NOTES: [facility] Imaging Services [address] [place] [address] Ultrasound Report MR#: [id number] Acct: [id number] Name: VIRGINIA URRUTIA Rep #: [id number] : 1940 F 72 From: Brook Cummings DO PCP: Kristine Davis DO Status: REG CLI Study: Kidney and Bladder Date of Exam: 10/07/13 Exam# [id number] Ordering Dr: Aquiles Potts STUDY: RENAL ULTRAS [...] at 23:16 EDT Tel , Service support [phone], CC: Aquiles Potts; Kristine Davis DO Final Inspector Truck Trailer: Signed Immunization Name Dates Details Influenza (3 years and up) on: 17-Dec-2008 Comments: Lot #:[id number] date:mount given:0.5mlRoute: IMSite given:left deltoidGiven by: AYAD [...] smoker Vital Signs Date Test Result Details :07 Temperature 97.9 f Comments: Method: Temporal Pulse [...] Height 0 in Head Circumference 0.00 cm : Temperature 98.3 f Comments: Method: Oral Pulse [...] 0.00 cm Results Date Description Value Details 89-Nys-898583:12 ANGTENSIN 1-CONVRT ENZYM Comments: PATIENT NOT FASTINGPERFORMED BY: [employer] [id number] BY: [employer] [id number] ([address]65) YOSEF 30 U/L (Normal) Range: 14-82 15-Adn-505835:12 CCP ANTIBODY (20975) Comments: PATIENT NOT FASTINGPERFORMED BY: [employer] [id number] BY: [employer] [id number] CCP Antibodies IgG/IgA 8 {units} (Normal) Range: 0-19 Comments: Negative <20 Weak positive 20 - 39 Moderate positive 40 - 59 Strong positive >59 45-Vso-567900:12 CAROL (ANTINUCLEAR ANTIBODY) Comments: PATIENT NOT FASTINGPERFORMED BY: [address] [id number] BY: [address] [id number] ([address]) CAROL Direct Negative (Normal) 19-Dul-531214:12 RHEUMATOID FACTOR-QUANT Comments: PATIENT NOT FASTINGPERFORMED BY: [address] [id number] BY: [address] [id number] (93606) RA Latex Turbid. <10.0 {IU/mL} (Normal) Range: 0.0-13.9 85-Unw-732274:12 SED RATE ERYTHROCYTE Comments: PATIENT NOT FASTINGPERFORMED BY: [address] [id number] BY: [address] [id number] (01293) Sedimentation Rate-Westergren 15 mm/h (Normal) Range: 0-40 55-Ybq-997573:12 C-REACTIVE PROTEIN Comments: PATIENT NOT FASTINGPERFORMED BY: [address] [id number] BY: [address] [id number] (18153) C-Reactive Protein, Quant 2.9 mg/L (Normal) Range: 0.0-4.9 78-Mhh-234604:12 CBC, PLATELETS & AUT DIFF Comments: PATIENT NOT FASTINGPERFORMED BY: [address] [id number] BY: [address] [id number] (57684) Immature Grans (Abs) 0.0 {x10E3/uL} (Normal) Range: [...] 3.77-5.28 WBC 7.8 {x10E3/uL} (Normal) Range: 3.4-10.8 64-Reo-965000:12 VITAMIN B-12 Comments: PATIENT NOT FASTINGPERFORMED BY: [employer] Jrupux6415 [facility] [id number] BY: [employer] [id number] (CYANOCOBALAMIN) (00716) Vitamin B12 579 pg/mL (Normal) Range: 232-1245 96-Yxp-38455:31 LIPID PANEL (90970) Comments: PATIENT WAS FASTINGPERFORMED BY: [facility]In[facility] WoodburyFwnbhl3108 [facility] [id number]; appt 01/02 LDL/HDL Ratio 1.9 {ratio} (Normal) [...] be changing to: Male Female 40 - 959931 50 - 499205 Triglycerides 145 mg/dL (Normal) Range: 0-149 Cholesterol, Total 240 mg/dL (Abnormal) Range: 100-199 31-Kxn-05563:31 METABOLIC PANEL, COMPREHENSIVE Comments: PATIENT WAS FASTINGPERFORMED BY: [facility]CoIn[facility] WoodburyElddkx1075 [facility] [id number] (17109) ALT (SGPT) 16 [iU]/L (Normal) Range: 0-32 [...] 8-27 Glucose 98 mg/dL (Normal) Range: 65-99 53-Luj-737807:13 METABOLIC PANEL, BASIC Comments: PATIENT NOT FASTINGPERFORMED BY: [facility]eco2uM[facility] [place]6370 [facility] [id number]; review on 01/02 (21232) Calcium 9.9 mg/dL (Normal) Range: 8.7-10.3 Carbon [...] 8-27 Glucose 98 mg/dL (Normal) Range: 65-99 92-Icr-361321:38 GGT (Gamma Glutamyl Comments: PATIENT NOT FASTINGPERFORMED BY: [facility]6370 [facility] [id number] Transferase) (62202) GGT 20 [iU]/L (Normal) Range: 0-60 33-Kit-379593:38 Alkaline Phosphatase (24663) Comments: PATIENT NOT FASTINGPERFORMED BY: [address] [id number] Alkaline Phosphatase 131 [iU]/L (Abnormal) Range: 39-117 25-Usm-328890:38 THYROXINE FREE (15037) Comments: PATIENT NOT FASTINGPERFORMED BY: [address] [id number] T4,Free(Direct) 1.92 ng/dL (Abnormal) Range: 0.82-1.77 28-Uao-643095:38 FREE TRIDOTHYRONINE (T3) (64369) Comments: PATIENT NOT FASTINGPERFORMED BY: [address] [place] [id number] Triiodothyronine,Free,Serum 2.4 pg/mL (Normal) Range: 2.0-4.4 69-Gwo-592523:38 VITAMIN B-12 (CYANOCOBALAMIN) Comments: PATIENT NOT FASTINGPERFORMED BY: [facility] Bhlrje0009 [facility] [place] [id number] (42204) Vitamin B12 665 pg/mL (Normal) Range: 232-1245 73-Ezz-99154:06 VITAMIN B-12 (CYANOCOBALAMIN) Comments: PATIENT NOT FASTINGPERFORMED BY: [facility] Xrvypw8569 [facility] [place] [id number] (54317) Vitamin B12 1301 pg/mL (Abnormal) Range: 232-1245 4-Eba-633840:25 Metabolic Panel, Comprehensive Comments: PATIENT NOT FASTINGPERFORMED BY: LabMym[facility] [place]6370 [facility] [id number]; review on 08/28 (23147) ALT (SGPT) 10 [iU]/L (Normal) Range: 0-32 [...] 8-27 Glucose 84 mg/dL (Normal) Range: 65-99 1-Qbe-789109:25 CBC WITH MANUAL DIFF (27067) Comments: PATIENT NOT FASTINGPERFORMED BY: [facility] Gwyfyy9985 [facility] [id number] Immature Grans (Abs) 0.0 {x10E3/uL} (Normal) Range: [...] 3.77-5.28 WBC 7.9 {x10E3/uL} (Normal) Range: 3.4-10.8 :59 METABOLIC PANEL, COMPREHENSIVE Comments: PATIENT NOT FASTINGPERFORMED BY: [employer] Juwhjb2801 [facility] [id number] (43907) ALT (SGPT) 10 [iU]/L (Normal) Range: 0-32 [...] 88 mg/dL (Normal) Range: 65-99 :46 TSH (89265) Comments: 6 weeks; PATIENT NOT FASTINGPERFORMED BY: Conformiq Ifblbf6996 Oliva [facility] [id number] TSH 2.420 {uIU/mL} (Normal) Range: 0.450-4.500 :23 LIPID PANEL (58486) Comments: PATIENT WAS FASTINGPERFORMED BY: ConformiqInspira Medical Center WoodburyFykgiu3371 [facility] [id number] LDL/HDL Ratio 1.6 {ratio_units} (Normal) Range: 0.0-3.2 Comments: LDL/HDL Ratio Men Women 1/2 Avg.Risk 1.0 1.5 Av g.Risk 3.6 3.2 2X Avg.Risk 6.2 5.0 3X Avg.Risk 8.0 6.1 LDL Cholesterol Calc 125 mg/dL (Abnormal) Range: 0-99 VLDL Cholesterol Meliton 25 mg/dL (Normal) Range: 5-40 HDL Cholesterol 78 mg/dL (Normal) Triglycerides 124 mg/dL (Normal) Range: 0-149 Cholesterol, Total 228 mg/dL (Abnormal) Range: 100-199 :23 METABOLIC PANEL, COMPREHENSIVE Comments: PATIENT WAS FASTINGPERFORMED BY: Jobr Zdkqlw5263 [facility] [id number] (33913) ALT (SGPT) 15 [iU]/L (Normal) Range: 0-32 [...] Glucose, Serum 96 mg/dL (Normal) Range: 65-99 01-Gvv-74041:23 CBC W/AUTO DIFF WBC (77265) Comments: PATIENT WAS FASTINGPERFORMED BY: [facility] Jaweic0402 [facility] [id number] Immature Grans (Abs) 0.0 {x10E3/uL} (Normal) Range: [...] (Normal) Range: 3.4-10.8 :23 Vitamin D Hydroxy (48920) Comments: PATIENT WAS FASTINGPERFORMED BY: [facility] Dewcjq9351 [facility] [place] [id number] Vitamin D, 25-Hydroxy 41.5 ng/mL (Normal) Range: 30.0-100.0 Comments: Vitamin D deficiency has been defined by the [place] ofHigh[facility] Hospitalcine and an Endocrine Society practice guideline as alevel of serum 25-OH vitamin D less than 20 ng/mL (1,2).The Endocrine Society went on to further define vitamin Dinsufficiency as a level between 21 and 29 ng/mL (2).1. IOM ([place] of Medicine). 2010. Dietary reference intakes for calcium and D. [place]: The National AcademVtap Press.2. Seng MF, Theresa ROMERO, Kieran KOWALSKI, et al. Evaluation, treatment, and prevention of vitamin D deficiency: an Endocrine Society clinical practice guideline. JCEM. 2010; 96(7):1911-30. :23 TSH (07278) Comments: PATIENT WAS FASTINGPERFORMED BY: [facility] Gyuuxo1594 [facility]iva [facility] [place] [place] [id number] TSH 0.429 {uIU/mL} (Abnormal) Range: 0.450-4.500 :23 VITAMIN B-12 (CYANOCOBALAMIN) Comments: PATIENT WAS FASTINGPERFORMED BY: [facility]Sc[facility] Gfzfcl6083 [facility] [id number] (70830) Vitamin B12 553 pg/mL (Normal) Range: 211-946 0-Knq-473406:52 CBC, PLATELETS & MANUAL DIFF Comments: PATIENT NOT FASTINGPERFORMED BY: [facility] Cwprsx8774 [facility] [place] [id number] (68473) Immature Grans (Abs) 0.0 {x10E3/uL} (Normal) Range: [...] 3.4-10.8 :09 Basic Metabolic Profile (BMP) Comments: [facility] Huhsfhgrrj1487 [address] [place], [place], [id number] GAP 9 (Normal) Range: 5-15 CO2 29.0 [...] :09 CBC-Complete Blood Cnt No Diff Comments: [facility] Ahcguefslb69[address] [place], [place], [id number] MPV 9.1 fL (Normal) Range: 6.2-12.0 PLT [...] 5.7 K/mm3 (Normal) Range: 4.4-11.0 :53 Magnesium (95605) Comments: PATIENT NOT FASTINGPERFORMED BY: cafegive [facility] Qscugs7117 [facility] [id number] Magnesium, Serum 1.9 mg/dL (Normal) Range: 1.6-2.3 :53 METABOLIC PANEL, COMPREHENSIVE Comments: PATIENT NOT FASTINGPERFORMED BY: cafegive [facility] Nlmffz2299 [facility] [id number]; non- emergent till apt (36950) ALT (SGPT) 18 [iU]/L (Normal) Range: 0-32 [...] Glucose, Serum 83 mg/dL (Normal) Range: 65-99 24-Quk-81644:53 TSH (31529) Comments: PATIENT NOT FASTINGPERFORMED BY: [facility] Nohyre8327 [facility] [id number] TSH 1.810 {uIU/mL} (Normal) Range: 0.450-4.500 83-Ewq-680710:15 Vitamin D Hydroxy (46844) Comments: PATIENT NOT FASTINGPERFORMED BY: cafegive [facility] Qtcwfz6822 [facility] [id number] Vitamin D, 25-Hydroxy 28.3 ng/mL (Abnormal) Range: 30.0-100.0 Comments: Vitamin D deficiency has been defined by the [place] ofMedicine and an Endocrine Society practice guideline as alevel of serum 25-OH vitamin D less than 20 ng/mL (1,2).The Endocrine Society went on to further define vitamin Dinsufficiency as a level between 21 and 29 ng/mL (2).1. IOM ([place] of Medicine). 2010. Dietary reference intakes for calcium and D. [place]: The National Academies Press.2. Seng MF, Theresa ROMERO, Kieran KOWALSKI, et al. Evaluation, treatment, and prevention of vitamin D deficiency: an Endocrine Society clinical practice guideline. JCEM. 2010; 96(7):1911-30. 87-Agb-918678:15 VITAMIN B-12 (CYANOCOBALAMIN) Comments: PATIENT NOT FASTINGPERFORMED BY: [employer] Sznqby8425 Oliva [facility] [id number] (04344) Vitamin B12 447 pg/mL (Normal) Range: 211-946 40-Jbq-387520:15 CBC W/AUTO DIFF WBC Comments: PATIENT NOT FASTINGPERFORMED BY: [facility] Fvzcjb6015 [facility] [id number] Information: SRC:ALONZO (08199) Immature Grans (Abs) 0.0 {x10E3/uL} (Normal) Range: [...] 3.77-5.28 WBC 5.6 {x10E3/uL} (Normal) Range: 3.4-10.8 72-Jcj-672304:15 METABOLIC PANEL, COMPREHENSIVE Comments: PATIENT NOT FASTINGPERFORMED BY: [facility] Nboxvs7240 [facility] [id number] (74184) ALT (SGPT) 13 [iU]/L (Normal) Range: 0-32 [...] Glucose, Serum 87 mg/dL (Normal) Range: 65-99 86-Nqb-139048:50 Urinalysis, Office (19889) UA - LEUKOCYTE ESTERASE Trace (Normal) UA - NITRITE Negative (Normal) URINE UROBILINGN TUNDE TIMED Normal mg/dL (Normal) UA - PROTEIN Negative mg/dL (Normal) UA - PH 5 (Abnormal) UA - BLOOD Negative (Normal) UA - SPECIFIC GRAVITY 1.025 (Normal) UA - KETONES Negative mg/dL (Normal) UA - BILIRUBIN Negative (Normal) UA - GLUCOSE Negative (Normal) 89-Pgq-446437:15 URINE CESAR CULTURE (TUNDE COL Comments: PATIENT NOT FASTINGPERFORMED BY: [facility] [id number] COUNT) (40935) Result 1 MUG (Normal) Comments: Mixed urogenital floraGreater than 100,000 colony forming units per mL Urine Culture,Comprehensive Final report (Normal) 14-Win-809486:29 URINE CEASR CULTURE-IDENTIFICATN Comments: PATIENT NOT FASTINGPERFORMED BY: Writer.ly [facility]ixC[facility] [id number] Information: [id number] (03591) Result 1 MUG (Normal) Comments: Mixed urogenital flora1,000 Colonies/mL Urine Culture,Comprehensive Final report (Normal) 20-Mow-634300:29 URINE CESAR CULTURE-TUNDE COL Comments: PATIENT NOT FASTINGPERFORMED BY: Writer.lyrp [employer] [facility] [id number] Information: SRC:[facility] [id number] COUNT (58895) Result 1 MUG (Normal) Comments: Mixed urogenital flora25,000-50,000 colony forming units per mL Urine Final report (Normal) Culture,Comprehensive 68-Oow-064986:07 Urinalysis, Office (41023) UA - LEUKOCYTE ESTERASE Small (Normal) UA - NITRITE Negative (Normal) URINE UROBILINGN TUNDE TIMED Normal mg/dL (Normal) UA - PROTEIN Negative mg/dL (Normal) UA - PH 5 (Abnormal) UA - BLOOD Hemolyzed Trace (Normal) UA - SPECIFIC GRAVITY 1.015 (Normal) UA - KETONES Negative mg/dL (Normal) UA - BILIRUBIN Negative (Normal) UA - GLUCOSE Negative (Normal) 5-Oat-715633:02 URINE CESAR CULTURE (TUNDE Comments: PATIENT NOT FASTINGPERFORMED BY: ConformiqInspira Medical Center WoodburyNzzzke7325 [facility] [id number] Information: SRC:[facility] [id number] COL COUNT) (89659) Result 1 NG36 (Normal) Comments: No growth in 36 - 48 hours. Urine Culture,Comprehensive Final report (Normal) 17-Sep-20149:51 CBC With Differential/Platelet Comments: PATIENT NOT FASTINGPERFORMED BY: ConformiqInspira Medical Center WoodburyTpfkdv7094 [facility] [id number] Information: [id number] Immature Grans (Abs) 0.0 {x10E3/uL} (Normal) Range: [...] Panel (14) Comments: PATIENT NOT FASTINGPERFORMED BY: LabCoInspira Medical Center WoodburyClquei7138 [facility] [id number] ALT (SGPT) 11 [iU]/L (Normal) Range: 0-32 [...] (Normal) Range: 65-99 :13 SED RATE ERYTHROCYTE (90935) Comments: PATIENT WAS FASTINGPERFORMED BY: [employer]6370 [facility] [id number] Sedimentation Rate-Westergren 6 mm/h (Normal) Range: 0-40 :13 C-REACTIVE PROTEIN (26946) Comments: PATIENT WAS FASTINGPERFORMED BY: ConformiqInspira Medical Center WoodburyGbaomq0353 [facility] [id number] C-Reactive Protein, Quant 2.2 mg/L (Normal) Range: 0.0-4.9 :13 CBC W/AUTO DIFF WBC Comments: PATIENT WAS FASTINGPERFORMED BY: Writer.ly Dqlpke7884 [facility] [id number] Information: [id number] (96119) Immature Grans (Abs) 0.0 {x10E3/uL} (Normal) Range: [...] 4.6 {x10E3/uL} (Normal) Range: 3.4-10.8 :13 TSH (04824) Comments: PATIENT WAS FASTINGPERFORMED BY: [facility] [id number] TSH 0.584 {uIU/mL} (Normal) Range: 0.450-4.500 69-Fki-167900:42 Urinalysis, Office (35850) UA - LEUKOCYTE ESTERASE Small (Normal) UA - NITRITE Negative (Normal) URINE UROBILINGN TUNDE TIMED Normal mg/dL (Normal) UA - PROTEIN Negative mg/dL (Normal) UA - PH 6 (Abnormal) UA - BLOOD Negative (Normal) UA - SPECIFIC GRAVITY 1.025 (Normal) UA - KETONES Negative mg/dL (Normal) UA - BILIRUBIN Negative (Normal) UA - GLUCOSE Negative (Normal) 89-Php-151445:43 URINE CESAR CULTURE (TUNDE Comments: PATIENT NOT FASTINGPERFORMED BY: [employer] [facility] [id number] Information: SRC:UR [id number] COL COUNT) (71851) Result 1 MUG (Normal) Comments: Mixed urogenital flora25,000-50,000 colony forming units per mL Urine Final report (Normal) Culture,Comprehensive :13 Vitamin D Hydroxy (14533) Comments: PATIENT WAS FASTINGPERFORMED BY: [facility] [id number] Vitamin D, 25-Hydroxy 38.7 ng/mL (Normal) Range: 30.0-100.0 Comments: Vitamin D deficiency has been defined by the [place] ofMedicine and an Endocrine Society practice guideline as alevel of serum 25-OH vitamin D less than 20 ng/mL (1,2).The Endocrine Society went on to further define vitamin Dinsufficiency as a level between 21 and 29 ng/mL (2).1. IOM ([place] of Medicine). 2010. Dietary reference intakes for calcium and D. [place]: The National Academies Press.2. Seng MF, Theresa ROMERO, Kieran KOWALSKI, et al. Evaluation, treatment, and prevention of vitamin D deficiency: an Endocrine Society clinical practice guideline. JCEM. 2010; 96(7):1911-30. :13 LIPID PANEL (26916) Comments: PATIENT WAS FASTINGPERFORMED BY: [employer]6370 [facility] [id number] LDL/HDL Ratio 1.8 {ratio_units} (Normal) Range: 0.0-3.2 [...] PANEL, COMPREHENSIVE Comments: PATIENT WAS FASTINGPERFORMED BY: [employer]6370 [facility] [id number] (44126) ALT (SGPT) 14 [iU]/L (Normal) Range: 0-32 [...] Glucose, Serum 86 mg/dL (Normal) Range: 65-99 57-Inn-86402:13 VITAMIN B-12 (CYANOCOBALAMIN) Comments: PATIENT WAS FASTINGPERFORMED BY: Writer.lyInspira Medical Center WoodburyItqbvb9637 [facility] [id number] (83396) Vitamin B12 >1999 pg/mL (Abnormal) Range: 211-946 94-Vpd-131222:00 Metabolic Panel, Basic Comments: 6 weeks; PATIENT NOT FASTINGPERFORMED BY: Writer.lyInspira Medical Center WoodburyYhcywo6746 [facility] [id number] Information: [id number] (59679) Calcium, Serum 9.7 mg/dL (Normal) Range: 8.6-10.2 [...] Glucose, Serum 90 mg/dL (Normal) Range: 65-99 49-Imk-233586:24 URINE CESAR CULTURE-IDENTIFICATN Comments: PATIENT NOT FASTINGPERFORMED BY: [place] 0328770 [facility] [id number] Information: [id number] (18094) Result 1 ENTEGA (Abnormal) Comments: Enterococcus ,000-25,000 colony forming units per mLNote: For enterococci with intrinsic intermediate-level resistance tovancomycin, such as E. casseliflavus and E. gallinarum, VRE infection control measures are not applicable, per the CLSI (formerly NCCLS).For Enterococcus species, cephalosporins, aminoglycosides (except forhigh-level resistance screening), clindamycin, and trimethoprim-curtis lfamethoxazole are not effective clinically. Fluoroquinolones areused primarily for treating urinary tract infections. (CLSI, Z173-P99,2009) S = Susceptible; I = Intermediate; R = Resistant * P = Positive; N = Negative MICS are expressed in micrograms per mL Antibiotic RSLT#1 RSLT#2 RSLT#3 RSLT#4Ciprofloxacin SGentami lien 500 SLevofloxacin SNitrofurantoin IPenicillin SStreptomycin 2000 STetracycline SVancomycin R Urine Final report (Abnormal) Culture,Comprehensive 21-Iqy-450794:51 METABOLIC PANEL, Comments: PATIENT NOT FASTINGPERFORMED BY: [facility]6370 [facility] [id number] Information: [id number] COMPREHENSIVE (82960) ALT (SGPT) 20 [iU]/L (Normal) Range: 0-32 [...] Glucose, Serum 80 mg/dL (Normal) Range: 65-99 28-Xef-854123:04 Microscopic Examination Comments: PATIENT NOT FASTINGPERFORMED BY: Applyful70 [facility] [id number] Bacteria Few (Normal) Mucus Threads Present (Normal) Epithelial Cells (non renal) 0-10 {/hpf} (Normal) Range: 0 - 10 RBC None seen {/hpf} (Normal) Range: 0 - 2 WBC None seen {/hpf} (Normal) Range: 0 - 5 36-Kyz-420955:04 URINE CESAR CULTURE (TUNDE COL Comments: PATIENT NOT FASTINGPERFORMED BY: [employer]6370 [facility] [id number] COUNT) (91080) Antimicrobial MIHEAD (Normal) Comments: S = Susceptible; [...] mL (Abnormal) Urine Final report Culture,Comprehensive (Abnormal) 11-Ddj-996707:04 URINALYSIS, W/ MICRO Comments: PATIENT NOT FASTINGPERFORMED BY: [facility]6370 [facility] [id number] Information: SRC: [id number] (92701) Microscopic Examination See below: (Normal) Comments: Microscopic was indicated and was performed. Microscopic Examination MICRON (Normal) Comments: Microscopic follows if indicated. Nitrite, Urine Negative (Normal) Bilirubin Negative (Normal) Urobilinogen,Semi-Qn 0.2 mg/dL (Normal) Range: 0.0-1.9 Ketones Negative (Normal) Occult Blood Negative (Normal) Glucose Negative (Normal) Protein Negative (Normal) WBC Esterase Negative (Normal) Appearance Clear (Normal) Urine-Color Yellow (Normal) pH 6.0 (Normal) Range: 5.0-7.5 Specific [place] 1.010 (Normal) Range: 1.005-1.030 51-Qti-170521:00 METABOLIC PANEL, Comments: PATIENT NOT FASTINGPERFORMED BY: [facility]6370 [facility] [id number] Information: [id number] COMPREHENSIVE (29544) ALT (SGPT) 11 [iU]/L (Normal) Range: 0-32 [...] Glucose, Serum 84 mg/dL (Normal) Range: 65-99 82-Kps-34879:26 CMP Comments: will review at 11/05 appt [...] CHOL 200 mg/dL (Normal) Comments: <200 mg/dL Fcxzeseeq586-923 mg/dL Borderline>240 mg/dL High Risk :26 TSH 1.85 {uIU/mL} (Normal) Range: 0.358-3.74 :26 VITD 72.9 mg/mL (Normal) Comments: will review at - appt Comments: Vitamin D 25(OH) Status RangeDeficiency <20 ng/mL (50nmol/L)Insuffciency 20 - 30 ng/mL (50 - 75 nmol/L)Sufficiency 30 - 100 ng/mL (75 - 250 nmol/L)Toxicity >100 ng/mL (>250 nmol/L) 7-Mhh-775716:05 Urinalysis, Office (89495) UA - LEUKOCYTE ESTERASE Negative (Normal) UA - NITRITE Negative (Normal) URINE UROBILINGN TUNDE TIMED 2 mg/dL (Normal) UA - PROTEIN 30 mg/dL (Normal) UA - PH 6.0 (Normal) Comments: 5.5 UA - BLOOD Negative (Normal) UA - SPECIFIC GRAVITY 1.030 (Abnormal) UA - KETONES Small mg/dL (Normal) UA - BILIRUBIN Negative (Normal) UA - GLUCOSE Negative (Normal) 5-Dea-704905:33 URINE CESAR CULTURE-TUNDE COL Comments: PERFORMED BY: LabCoInspira Medical Center WoodburyNhqjfy1710 [facility] [id number] COUNT (96518) Result 1 MUG (Normal) Comments: Mixed urogenital flora10,000-25,000 colony forming units per mL Urine Final report (Normal) Culture,Comprehensive 68-Gzk-187849:52 URINE CESAR CULTURE-TUNDE COL Comments: PATIENT NOT FASTINGPERFORMED BY: LISBETH [facility] Oxhdfo1787 [address] [place] [id number] Information: SRC:UR [id number] COUNT (78387) Antimicrobial MIHEAD (Normal) Comments: S = Susceptible; [...] B12 530 pg/mL (Normal) Range: 211-911 149:47 17-Jun-20139:47 CMP GAP 7 (Normal) Range: 5-15 CO2 [...] CHOL 203 mg/dL (Abnormal) Comments: <200 mg/dL Uowagsshk143-895 mg/dL Borderline>240 mg/dL High Risk :47 TSH 1.52 {uIU/mL} (Normal) Range: 0.358-3.74 :47 VITD 59.3 mg/mL (Normal) Comments: Vitamin D 25(OH) Status RangeDeficiency <20 ng/mL (50nmol/L)Insuffciency 20 - 30 ng/mL (50 - 75 nmol/L)Sufficiency 30 - 100 ng/mL (75 - 250 nmol/L)Toxicity >100 ng/mL (>250 nmol/L) :44 CBC, PLATELETS & AUT DIFF Comments: PATIENT NOT FASTINGPERFORMED BY: LabCoInspira Medical Center WoodburyMxuhxj6129 [facility] [id number] Information: [id number] (57045) Immature Grans (Abs) 0.0 {x10E3/uL} (Normal) Range: [...] (Normal) Range: 3.4-10.8 :44 FOLIC ACID SERUM (51768) Comments: PATIENT NOT FASTINGPERFORMED BY: ConformiqInspira Medical Center WoodburyWpqbhk6726 [facility] [id number] Folate (Folic Acid), Serum 14.4 ng/mL (Normal) Comments: A serum folate concentration of less than 3.1 ng/mL isconsidered to represent clinical deficiency. :44 RETICULOCYTE COUNT MANUL Comments: PATIENT NOT FASTINGPERFORMED BY: [facility]edeco2uMymich[facility] [place]6370 [facility] [id number] (53246) Reticulocyte Count 1.1 % (Normal) Range: 0.6-2.6 :44 LDH (LD) (LACTATE DEHYDROGENASE) Comments: PATIENT NOT FASTINGPERFORMED BY: homedeco2uMymichigan Medical Center [place]6370 [facility] [id number] (27416) LDH 250 [iU]/L (Abnormal) Range: 0-214 :44 IRON BINDING CAPACITY (TIBC) Comments: PATIENT NOT FASTINGPERFORMED BY: homedeco2uMymichigan Medical Center [place]6370 [facility] [id number] (78863) Iron Saturation 16 % (Normal) Range: 15-55 Iron, Serum 52 ug/dL (Normal) Range: 35-155 UIBC 270 ug/dL (Normal) Range: 150-375 Iron Bind.Cap.(TIBC) 322 ug/dL (Normal) Range: 250-450 :44 FERRITIN (69042) Comments: PATIENT NOT FASTINGPERFORMED BY: LabCoInspira Medical Center WoodburyZfzyxv7487 [facility] [id number] Ferritin, Serum 42 ng/mL (Normal) Range: 15-150 [...] - 250 nmol/L)Toxicity >100 ng/mL (>250 nmol/L) 17-Aug-20129:50 TSH 1.02 {uIU/mL} (Normal) Range: 0.358-3.74 46-Joy-988962:02 BILAT SCRN DIGITAL & CAD Radiology Report [...] Rowe M.D.July 23, 2012 at 2:35:49 PM [id number] Signed GP/GP If you are the referring physicia n and would like to consult with theradiologist who provided this interpretation, please contact Ofelia Rodriguez at [phone]. If this radiologist is unavailable, youwill be directed to [facility] radiologist to assist. If you are a patient with a question regarding this report, pleasecontactyour referring physician directly. Professional Interpretation Provided By: navabi, Phone , These documents contain legally protected and confidential healthinformation intended only for the use of the individual or entity namedabove. If you are not the intended recipie nt, you are hereby notifiedthatany disclosure, copying, distribution, or other use of these documents isstrictly prohibited. If you have received this information in error,pleasenotify the sender lencho stephensderik and arrange for the return or destructionofthese documents. Dictated on 07/23/12 1402 by Jennifer Rowe MDranscribed on 07/23/12 1438 by ITS IMPORTSign by Dashawn Rowe MD on 3 1439 Sign by: Dashawn Rowe MD 1-Hbl-725102:59 KIDNEY Radiology Report See Note (Normal) Comments: [...] Welsh M.D.July 11, 2012 at 5:00:06 PM [id number] Signed TT/TT If you are the referring physician and would like to consult with theradiologist who provided this interpretation, please contact Brittney Mccormack M.D. at [phone]. If this radiologist is unavailable, youwillbe directed to another radiologist to assist. If you are a patient with a question regarding this report, pleasecontactyour referring physician directly. Professional Interpretat ion Provided By: navabi, Phone , These documents contain legally protected and confidential healthinformation intended only for the use of the individual or entity [facility]. If you are not the intended recipient, you are hereby notifiedthatany disclosure, copying, distribution, or other use of these documents isstrictly prohibited. If you have received this informa tion in error,pleasenotify the sender immediately and arrange for the return or destructionofthese documents. Dictated on 07/11/12 1528 by Brittney Welsh MDTranscribed on 07/11/121824 by ITS IMPORTS ign by Brtitney Welsh MD on 07/11/121825 Sign by: Blaise CARRANZA,Brittney 7-Hwx-226737:59 TRANSVAGINAL NON- Radiology Report See Note (Normal) [...] Welsh M.D.July 11, 2012 at 4:45:28 PM [phone] Signed TT/TT If you are the referring physician and would like to consult with sebastian dunlap who provided this interpretation, please contact Brittney Mccormack M.D. at [phone]. If this radiologist is unavailable, youwillbe directed to another radiologist to assist. If you are a p atient with a question regarding this report, pleasecontactyour referring physician directly. Professional Interpretation Provided By: navabi, Phone , These documents contain legally protected [...] or dest ructionofthese documents. Dictated on 07/11/12 1459 by Blaise CARRANZA,TheresaTranscribed on 07/11/121651 by ITS [...] CHOL 210 mg/dL (Abnormal) Comments: <200 mg/dL Acaagtfls787-803 mg/dL Borderline>240 mg/dL High Risk :44 MG 1.8 mg/dL (Normal) Range: 1.8-2.4 :44 SED tSEDRATE 18 mm/h (Normal) Range: 0-30 :44 TSH 8.94 {uIU/mL} (Abnormal) Range: 0.358-3.74 :44 VITD 90.8 ng/mL (Normal) Comments: Vitamin D 25(OH) Status RangeDeficiency <20 ng/mL (50nmol/L)Insufficiency 20 - 30 ng/mL (50 - 75 nmol/L)Sufficiency 30 - 100 ng/mL (75 - 250 nm ol/L)Toxicity >100 ng/mL (250 nmol/L)Effective 2012:29 ABDOMEN/PELVIS WITH CONTRAST Radiology Report See Note [...] to well characterize low-attenuation left renal lesion,probably community engagement representative of a cyst. Consider follow-up renal sonographyforfurther evaluation as clinically warranted. Signed:Matilda AvilesJuly 04, 2012 at 5:12:21 PM [phone] Signed DL/DL If you are the referring physician and would like to consult with theradiologist who provided this interpretation, please contact Ofelia Kyle at [phone]. If this radiologist is unavailable, youwillbe directed to another radiologist to assist. If you are a patient with a question regarding this report, pleasecontactyo ur referring physician directly. Professional Interpretation Provided By: navabi, Phone , These documents contain legally protected [...] on 07/04/121714 Sign by: Salinas Champion MD 79-Tpn-116247:18 CRE GFRAA 41 mL/min (Abnormal) GFR 34 mL/min (Abnormal) CREAT 1.6 mg/dL (Abnormal) Range: 0.6-1.0 21-Cds-820125:15 BMP GAP 7 (Normal) Range: 5-15 CO2 [...] 7-18 GLU 80 mg/dL (Normal) Range: 70-110 35-Ozw-808346:15 TSH 3.05 {uIU/mL} (Normal) Range: 0.358-3.74 :22 B12 577 pg/mL (Normal) Range: 211-946 Comments: Performed at: - [facility] [id number] Director: Patito Segovia MD, Phone: [phone] :22 CBCMD RBCM NORM C+C {NORMAL} (Normal) [...] D deficiency has been defined by the [place] of[place]icine and an Endocrine Society practice guideline as alevel of serum 25-OH vitamin D less than 20 ng/mL (1,2).The Endocrine Society went on to further define vitamin Dinsufficiency as a level between 21 and 29 ng/mL (2).1. IOM ([place] of Medicine). 2010. Dietary reference intakes for calcium and D. [place]: The National AcademVtap Press.2. Seng MF, Theresa ROMERO, Kieran KOWALSKI, et al. Evaluation, treatment, and prevention of vitamin D deficiency: an Endocrine Society clinical practice guideline. JCEM. 2010; 96(7):1911-30. 00-Guy-147035:37 BREAST UNILATERAL Radiology Report See Note (Normal) [...] Category 3: Probably Benign Finding - Initial Qgxkc-UrfhkplaUqevbe-ag Suggested. Signed:Dashawn Rowe M.D.November 09, 2011 at 2:49:17 PM [phone] Signed GP/GP If you are the referring physician and would like to consult with theradiologist who provided this interpretation, please contact Herb blake M.D. at [phone]. If this radiologist is unavailable, youwill be directed to another radiologist to assist. If you are a patient with a question regarding this report, pleasecontactyour referri ng physician directly. Professional Interpretation Provided By: Eleazar, Phone , These documents contain legally protected [...] destructionofthese documents. Dictated on 11/09/11 1326 by Jeninfer Rowe MDranscribed on 11/09/11 1455 by ITS IMPORTSign by Dashawn Rowe MD on 11/09/11 1456 Sign by: Dashawn Rowe MD 04-Dxn-757649:47 BREAST UNILATERAL Radiology Report See Note (Normal) [...] Category 3: Probably Benign Finding - Initial Ikovc-ReesxapvMbouje-mg Suggested. To consult with a radiologist regarding this report, please call our [id number] line @ Dictated on 06/22/11 1428 by Wendy Rowe MD on 06/22/11 1547 by ITS IMPORTSign by Dashawn Rowe MD on 06/22/11 1548 Sign by: ___ Dashawn Rowe MD 37-Ghj-295536:47 UNILAT LT DIAG DIGITAL & CAD Radiology [...] radiologist regarding this report, please call our [id number] line @ Dictated on 06/22/11 1357 by Wendy Rowe MD on 1450 by ITS IMPORTSign by Dashawn Rowe MD on 06/22/11 1451 Sign by: Dashawn Rowe MD 5-Kbt-379114:14 CERV SPINE,MIN 4 VIEWS Radiology Report See [...] radiologist regarding this report, please call our 95K8lkpdzud line @ Dictated on 04/13/11 1408 by LISANDRA DUMONT MDTranscribed on 04/14/11 162 by ITS IMPORTSign by Mook DUMONT MD on 04/14/11 162 Sign by: LISANDRA DUMONT MD :38 CBCD,SMEAR DIFF RED CELL MORPH SeeNote {NORMAL} [...] or = 500 mg/dL :38 VIT D, [address]69[address] 47.8 ng/mL (Normal) Range: 30.0-100.0 Comments: Vitamin D deficiency has been defined by the [place] of[place]icine and an Endocrine Society practice guideline as alevel of serum 25-OH vitamin D less than 20 ng/mL (1,2).The Endocrine Society went on to further define vitamin Dinsufficiency as a level between 21 and 29 ng/mL (2).1. IOM ([place] of [place]). 2011. Dietary reference intakes for calcium and D. [place]: The National Academies Press.2. Seng MF, Theresa ROMERO, Kieran KOWALSKI, et al. Evaluation, treatment, and prevention of vitamin D deficiency: an Endocrine Society clinical practice guideline. JCEM. 2010; 96(7): 1911-30.Performed at: [address] [id number] Director: Patito Segovia MD, Phone: [phone] :38 VITAMIN B12 781 pg/mL (Normal) Range: 254-1320 Comments: There is a low frequency possibility that high titers ofintrinsic blocking antibodies may not be completely inactivated during the reaction pretreatment stepof this testing method. If test results are i n conflictwith the clinical diagnosis, patient should be testedfor the presence of intrinsic factor blocking antibodies. :29 DEXA BONE DENSITY STUDY (HP) Comments: appt [...] 02/02/11 0843 Sign by: Dashawn Rowe MD 27-Zgl-639440:03 Thin prep Pap Comments: Source.............Cervical;EndocervicalNo. of containers..01 CYTYC Thin Prep VialPERFORMED BY: [facility] [address] [facility] [place] [id number] Information: [id number] ([id number]) Note: PAPSMR (Normal) Comments: The Pap smear [...] ; Routine gynecolog ical examina Deidre Aguila Supervisor [employer] ([employer]) 83-Roa-833697:01 BILAT SCRN DIGITAL & CAD Radiology Report [...] 11/10/10 1218 by Yari Rowe MDscribed on 11/10/102 by ITS IMPORTSign by Dashawn Rowe MD on 11/10/10 1453 Sign by: Dashawn Rowe MD 99-Bvt-293319:16 COMP METABOLIC Comments: appt 11/05/10 GAP 10 [...] 7-18 GLU 79 mg/dL (Normal) Range: 70-110 78-Atv-450356:16 LIPID VLDL 24 mg/dL (Normal) Range: 5-40 [...] 200-240 mg/dL Borderline >240 mg/dL High Risk 70-Uls-143706:16 TSH 0.99 {uIU/mL} (Normal) Range: 0.358-3.74 55-Uih-835334:16 VIT D,25 62294 45.6 ng/mL (Normal) Range: 32.0-100.0 Comments: Recent studies consider the lower limit of 32.0 ng/mL to zoraida threshold for optimal health.Everardo HEREDIA. J Nutr. 2004;135(2):317-22.Performed at: [facility] Lab[place] [address]Lab Director: Patito Segovia MD, Phone: [phone] 45-Jbr-903719:16 VITAMIN B12 582 pg/mL (Normal) Range: 254-1320 Comments: There is a low frequency possibility that high titers ofintrinsic blocking antibodies may not be completely inactivated during the reaction pretreatment stepof this testing method. If test results are i n conflictwith the clinical diagnosis, patient should be testedfor the presence of intrinsic factor blocking antibodies. 99-Hkh-055972:20 CBCD,SMEAR DIFF PLT EST SeeNote (Normal) Comments: [...] 4.2-5.4 WBC 5.4 K/mm3 (Normal) Range: 4.4-11.0 32-Ujn-593612:20 COMP METABOLIC GAP 9 (Normal) Range: 5-15 [...] 7-18 GLU 92 mg/dL (Normal) Range: 70-110 84-Nmw-145246:20 LIPID HDL 63 mg/dL (Normal) Comments: Reference [...] {uIU/mL} (Normal) Range: 0.358-3.74 :20 VIT D,25 19137 43.2 ng/mL (Normal) Range: 32.0-100.0 Comments: Recent studies consider the lower limit of 32.0 ng/mL to zoraida threshold for optimal health.Mcgee . J Nutr. 2004;135(2):317-22.Performed at: [place] [address]Lab Director: Patito Segovia MD, Phone: [phone] :20 VITAMIN B12 516 pg/mL (Normal) Range: 254-1320 Comments: There is a low frequency possibility that high titers ofintrinsic blocking antibodies may not be completely inactivated during the reaction pretreatment stepof this testing method. If test results are i n conflictwith the clinical diagnosis, patient should be testedfor the presence of intrinsic factor blocking antibodies. :44 VIT D,25 94111 38.6 ng/mL (Normal) Range: 32.0-100.0 Comments: Recent studies consider the lower limit of 32.0 ng/mL to zoraida threshold for optimal health.Mcgee BW. J Nutr. 2004;135(2):317-22.Performed at: [address] [id number]Lab Director: Patito Segovia MD, Phone: [phone] :44 VITAMIN B12 398 pg/mL (Normal) Range: [...] intrinsic factor blocking antibodies. :24 VITD 1,25 71700 57.3 pg/mL (Normal) Range: 10.0-75.0 Comments: Performed at: [address] [id number] Director: Roderick Ramirez MD, Phone: [phone] 35-Sfs-523561:26 CBCD,SMEAR DIFF RED CELL MORPH SeeNote {NORMAL} [...] the presence of intrinsic factor blocking antibodies. :16 MRA HEAD WITHOUT CONTRAST Radiology Report See Note (Normal) Comments: Exam Number: [id number] CLINICAL:69 year old female with numbness in [...] There is a fetalconfiguration of the right WIRE CHARGER. No definite P1 segment connectingthe artery to the basilar artery is identified. IMPRESSION:No demonstrated aneurysm. Anatomic variations of the [place] of [place]. 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 The rightinternal carotid arteries supplies the left VINAY territory, and islarger than the left internal carotid. 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 Reported By: DOMENICA MCGARRY M.D. 73-Xtz-226029:41 BRAIN W/WO CONTRAST Radiology See Note Comments: Exam Number: [id number] CLINICAL: MRI BRAIN WITHOUT AND WITH CONTRAST [...] mild degenerative remodeling of the mandibular condyles.ADDENDUM: [id number] MRI/BRWW CLINICAL: MRI BRAIN WITHOUT AND WITH [...] CHOL 188 mg/dL (Normal) Comments: <200 mg/dL Pbupphdgo129-596 mg/dL Borderline>240 mg/dL High Risk HDL 54 [...] Range: 0.358-3.74 5 (Normal) :3 VIT D,25 08149 29.3 ng/mL (Abnormal) Range: 32.0-100.0 5 Comments: Recent studies consider the lower limit of 32.0 ng/mL to zoraida threshold for optimal health.Everardo HEREDIA. J Nutr. 2004;135(2):317-22.Performed at: [facility] [address]Lab Director: Patito Segovia MD, Phone: [phone] :[phone] VITAMIN B12 158 pg/mL (Abnormal) Range: 254-1320 5 Comments: There is a low frequency possibility that high titers ofintrinsic blocking antibodies may not be completelyinactivated during the reaction pretreatment stepof this testing method. If test results are in conflictwith the clinical diagnosis, patient should be testedfor the presence of intrinsic factor blocking antibodies. :17 ABDOMEN W/WO IV CONTRAST Radiology Report See Note (Normal) Comments: Exam Number: [id number] CLINICAL:Right upper quadrant pain CT ABDOMEN WITH [...] ight parapelvic renal cysts. Reported By: PRADIP SALVADOR 11-Rrg-164083:29 BMP BUN 16 mg/dL (Normal) Range: 7-18 [...] (Abnormal) GLU 86 mg/dL (Normal) Range: 70-110 12-Jun-20099:37 VIT D,25 59576 26.3 ng/mL (Abnormal) Range: 32.0-100.0 Comments: Recent studies consider the lower limit of 32.0 ng/mL to zoraida threshold for optimal health.Everardo HEREDIA. J Nutr. 2004;135(2):317-22.Performed at: [address] [id number] Director: Ade Rubio MD 21-Bld-708580:36 GALLBLADDER (HP) Radiology Report See Note (Normal) Comments: Exam Number: [id number] LIMITED ABDOMINAL ULTRASOUND FOR GALLBLADDER HISTORYChest pain. [...] kidneyis suggested. Reported By: DOMENICA GATES M.D. 0-Yex-940929:21 Lipase (25669) Comments: PATIENT NOT FASTINGPERFORMED BY: [address] [id number] Lipase, Serum 42 U/L (Normal) Range: 0-59 4-Stj-992069:21 Amylase (95035) Comments: PATIENT NOT FASTINGPERFORMED BY: [place] [address] [facility] [id number] Amylase, Serum 54 U/L (Normal) Range: 31-124 :21 CBC WITH MANUAL DIFF Comments: PATIENT NOT FASTINGPERFORMED BY: [facility]6[address] [facility] [id number] Information: [id number] (76333) Baso (Absolute) 0.1 {x10E3/uL} (Normal) Range: 0.0-0.2 [...] 3.80-5.10 WBC 5.9 {x10E3/uL} (Normal) Range: 4.0-10.5 :21 METABOLIC PANEL, COMPREHENSIVE Comments: PATIENT NOT FASTINGPERFORMED BY: [facility] [facility] [id number] (14628) ALT (SGPT) 15 [iU]/L (Normal) Range: 0-40 [...] :48 CAROL-D Comments: DR DAVIS ORDERED CMP,CBCMD,CAROL,RF,TSH,CRP,SED,CCP,LIPIDDR DONALDLANKIORDEREDCMP,CBCD,CRP,SED,VITD,CCP,HEPBSAB,HEPBSAG,HEPC,CAROL,RF,HEPBCORE IGM,[place] [id number] CAROL-DIRECT SeeNote (Normal) Comments: Result: Negative :48 ANTI-CCP 467943 4 {units} (Normal) Comments: DR DAVIS ORDERED [...] mm/h (Normal) Range: 0-30 :48 HB CORE [id number] SeeNote (Normal) Comments: DR DAVIS ORDERED CMP,CBCMD,CAROL,RF,TSH,CRP,SED,CCP,LIPIDDR VELLANKIORDEREDCMP,CBCD,CRP,SED,VITD,CCP,HEPBSAB,HEPBSAG,HEPC,CAROL,RF,HEPBCORE IGM,UA Comments: Result: Negative Performed At: [facility] [place], [place] [id number] At: [facility] [place] [phone] :48 HBsAg Comments: DR DAVIS ORDERED CMP,CBCMD,CAROL,RF,TSH,CRP,SED,CCP,LIPIDDR [...] of antibody present. :48 HEP C AB 546926 0.1 (Normal) Comments: DR DAVIS ORDERED CMP,CBCMD,CAROL,RF,TSH,CRP,SED,CCP,LIPIDDR [...] VELLANKIORDEREDCMP,CBCD,CRP,SED,VITD,CCP,HEPBSAB,HEPBSAG,HEPC,CAROL,RF,HEPBCORE IGM,UA Range: 0.358-3.74 :48 VIT D,25 38749 18.0 ng/mL (Abnormal) Comments: DR DAVIS ORDERED CMP,CBCMD,CAROL,RF,TSH,CRP,SED,CCP,LIPIDDR VELLANKIORDEREDCMP,CBCD,CRP,SED,VITD,CCP,HEPBSAB,HEPBSAG,HEPC,CAROL,RF,HEPBCORE IGM,UA Range: 32.0-100.0 Comments: Recent studies consider the lower limit of 32.0 ng/mL to zoraida threshold for optimal health.Everardo HEREDIA. J Nutr. 2004;135(2):317-22. 9-Bvf-975732:10 BILAT SCRN DIGITAL & CAD Radiology Report See Note (Normal) Comments: Exam Number: [id number] MAMMOGRAM, BILATERAL SCREENING DIGITAL AND CAD HISTORYRoutine [...] (MQSA). The mammograms werealso examined with c Contentlyuter-aided detection software (Dialogfeed, Wattbot.). Reported By: DOMENICA GATES M.D. 7-Xsz-841442:09 SPINE,LUMBAR (ROUTINE) Radiology Report See Note (Normal) Comments: Exam Number: [id number] CLINICAL:68-year-old female with low back pain for [...] Report See Note (Normal) Comments: Exam Number: [id number] CLINICAL DATALow back pain, flank pain, right [...] disc disea se involving multiple levels from V3yrwghgd S1. There is degenerative hypertrophic change of [...] Report See Note (Normal) Comments: Exam Number: [id number] DORSAL SPINE Three images of the dorsal [...] middle dorsal spine. Reported By: HEATHER JACKSON 4-Qno-536879:22 Urine Culture,Comprehensive Comments: Clinical Information: SRC:UR PERFORMED BY: [facility] [facility] [id number] Result 1 NG36 (Normal) Comments: No growth in 36 - 48 hours. Urine Culture,Comprehensive Final report (Normal) 2-Ywy-861359:18 PELVIS WITHOUT IV CONTRAST Radiology Report See Note (Normal) Comments: Exam Number: [id number] CT SCANS OF ABDOMEN AND PELVIS HISTORYThe [...] Report See Note (Normal) Comments: Exam Number: [id number] CT SCANS OF ABDOMEN AND PELVIS HISTORYThe [...] the spine. Reported By: DOMENICA GATES M.D. 4-Dwr-074015:1 C-REACTIVE PROT 4.05 mg/L (Abnormal) Range: 0.0-3.0 0 Comments: C-Reactive Protein (CRP) provides useful information for thediagnosis, therapy and monitoring of inflammatory processesand associated diseases. For the evaluation of Relative Riskfor Cardiovascular Dise ase, a High Sensitivity CRP (HSCRP)should be ordered. :10 CBCD,SMEAR DIFF ATYPICAL LYMPH 1+ % (Normal) [...] 47-70 WBC 8.2 K/mm3 (Normal) Range: 4.4-11.0 :10 COMP METABOLIC A/G 1.4 {RATIO} (Normal) Range: [...] 6.4-8.2 GLU 84 mg/dL (Normal) Range: 70-110 1-Upl-593227:10 ESR SED RATE 14 mm/h (Normal) Range: 0-30 6-Ewm-379098:40 Urinalysis, Office (14865) UA - BILIRUBIN Negative (Normal) UA - BLOOD Non Hemolyzed Trace (Normal) UA - GLUCOSE Negative (Normal) UA - KETONES Negative mg/dL (Normal) UA - LEUKOCYTE ESTERASE Negative (Normal) Comments: aw UA - NITRITE Negative (Normal) UA - PH 6.0 (Normal) UA - PROTEIN Negative mg/dL (Normal) UA - SPECIFIC GRAVITY 1.010 (Normal) URINE UROBILINGN TUNDE TIMED Normal mg/dL (Normal) 3-Oxb-907694:28 URINE CESAR CULTURE-TUNDE COL Comments: PATIENT NOT FASTINGClinical Information: SRC:UR ADD [id number] PERFORMED BY: [facility] [id number] [facility] [id number] COUNT ([id number]) Result 1 MUG (Normal) Comments: Mixed urogenital flora10,000-25,000 colony forming units per mL Urine Final report (Normal) Culture,Comprehensive 5-Rdf-342832:09 Urinalysis, Office (05588) UA - BILIRUBIN Negative (Normal) UA - [...] T PROT 7.3 g/dL (Normal) Range: 6.4-8.2 13-Feb-20089:52 LIPID CHOL 197 mg/dL (Normal) Comments: <200 [...] mg/dL VLDL 16 mg/dL (Normal) Range: 5-40 0-Edm-358848:59 LQD PAP [id number] Comments: CYTOLOGY INFORMATION:- CLINICAL INFORMATION: POSTMENOPAUSAL- DATE LMP/MENOPAUSE: MENOPAUSE- COLLECTION VIAL: Thin Prep Vial- BIAS BINDING FOLDER SOURCE: CERVICAL/ENDOCERVICAL- COLLECTION TECHNIQUE: BRUSH/SPATULA ADEQ Comment (Normal) Comments: Satisfactory for evaluation. Endocervical and/or squamous metaplasticcells (endocervical component) are present. COMM . (Normal) DIAGN Comment (Normal) Comments: NEGATIVE FOR INTRAEPITHELIAL LESION AND MALIGNANCY. HPV RFLX Comment (Normal) Comments: The HPV DNA reflex criteria were not met with this specimenresult therefore, no HPV testing was performed. .Performed At: [address] [id number] PAPR Comment (Normal) Comments: The Pap smear is a screening test designed to aid in thedetection of premalignant and malignant conditions of theuterine cervix. It is not a diagnostic procedure andshould not be used as the sole means of detecting cervicalcancer. Both false-positive and false-negative reports dooccur. . PERFORM Comment (Normal) Comments: Diandra Bee, Supervisor [employer] ([employer]CP) 46-Mql-659016:36 DEXA BONE DENSITY STUDY (HP) Radiology Report See Note (Normal) Comments: Exam Number: [id number] BONE DENSITOMETRY TECHNIQUE Bone densitometry of the [...] in 1998 and 7.2% greater than in 2005. Digital lateralview for evaluation of vertebral deformity [...] within normallimits. Reported By: DOMENICA GATES M.D. 09-Uhm-65034:55 COMP METABOLIC A/G 1.3 {RATIO} (Normal) Range: [...] T PROT 6.1 g/dL (Abnormal) Range: 6.4-8.2 52-Mjm-666729:12 FUNEZ A AB [id number] FUNEZ A TYPE 10 <1:8 (Normal) FUNEZ [...] and its performancecharacteristics have been determined by [employer]. Performance characteristics refer tothe analytical performance of the test. FUNEZ A TYPE 2 <1:8 (Normal) FUNEZ A TYPE 4 <1:8 (Normal) FUNEZ A TYPE 7 <1:8 (Normal) FUNEZ A TYPE 9 <1:8 (Normal) :12 ESR SED RATE 14 mm/h (Normal) Range: 0-30 16-Qkt-924437:12 RA LATEX 6502 7.1 {IU/mL} (Normal) Range: 0.0-13.9 Comments: Performed At: [address] [place], [place] [id number] At: [facility] [address] [place], [place] [id number] 58-Ooe-460250:12 TSH 0.16 {uIU/mL} (Abnormal) Range: 0.34-4.82 36-Nrl-132346:21 PELVIS WITH CONTRAST Radiology Report See Note (Normal) Comments: Exam Number: [id number] CT ABDOMEN AND PELVIS WITH CONTRAST. CLINICAL [...] pericardial effusion. Reported By: TODD KENNEDY M.D. 00-Rrs-849539:11 ABDOMEN WITH CONTRAST Radiology Report See Note (Normal) Comments: Exam Number: [id number] CT ABDOMEN AND PELVIS WITH CONTRAST. CLINICAL [...] pericardial effusion. Reported By: TODD KENNEDY M.D. 92-Ami-965829:38 MARCUS 45 U/L (Normal) Range: 25-115 70-Wkf-187806:38 CBCD,SMEAR DIFF BAND 1 % (Normal) Range: [...] 47-70 WBC 5.9 K/mm3 (Normal) Range: 4.4-11.0 38-Yfq-729504:38 LIPASE 190 U/L (Normal) Range: 114-286 56-Gsv-145695:45 BILAT SCRN DIGITAL & CAD Radiology Report See Note (Normal) Comments: Exam Number: [id number] MAMMOGRAM, BILATERAL SCREENING DIGITAL AND CAD HISTORYRoutine [...] werealso exam ined with computer-aided detection software (Dialogfeed, Wattbot.). Reported By: DOMENICA GATES M.D. 94-Htp-30668:33 CHEST W/WO CONTRAST Radiology Report See Note (Normal) Comments: Exam Number: [id number] CT SCAN OF CHEST HISTORYLung nodule. Consecutive [...] mg/dL VLDL 20 mg/dL (Normal) Range: 5-40 85-Zld-96440:07 TSH 0.40 {uIU/mL} (Normal) Range: 0.34-4.82 Plan [...] itching : [facility] [address] 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 Indication: Chest pain Osteoarthritis, unspecified osteoarthritis [...] Hypercholesterolemia Planned Observations CBC W/AUTO DIFF WBC (20962)Indication: Prolonged QT interval On: :18 Request METABOLIC PANEL, COMPREHENSIVE (12591)Indication: Prolonged QT interval On: 6-Hnx-712457:18 Request VITAMIN B-12 (CYANOCOBALAMIN) (29640)Indication: DEFICIENCY, B-COMPLEX NEC On: :18 Request TSH (04772)Indication: Acquired hypothyroidism On: :17 Request LIPOPROTEIN, BLD, BY NMR (58715)Indication: Hypercholesterolemia On: :17 Request VITAMIN B-12 (CYANOCOBALAMIN) (38488)Indication: DEFICIENCY, B-COMPLEX NEC On: :18 Request LIPID PANEL (83170)Indication: Hypercholesterolemia On: :18 Request CBC W/AUTO DIFF WBC (62949)Indication: Right flank pain On: :17 Request METABOLIC PANEL, COMPREHENSIVE (30311)Indication: Right flank pain On: 5-Xei-404362:17 Request Vitamin D Hydroxy (97869)Indication: Vitamin D deficiency, unspecified On: :17 Request Urinalysis, Office (42984)Indication: Urinary frequency On: 58-Mlg-083919:22 Request VITAMIN B-12 (CYANOCOBALAMIN) (38272)Indication: Other vitamin B12 deficiency anemia On: :28 Request Comments: Lot:[id number]:04/29Dose:1mlRoute:IMSite:r arm Given By:TAVON signed Vitamin D Hydroxy (84169)Indication: Vitamin D deficiency, unspecified On: :42 Request LIPID PANEL (15624)Indication: Hypercholesterolemia On: :42 Request METABOLIC PANEL, COMPREHENSIVE (69141)Indication: Essential hypertension On: :36 Request TSH (10494)Indication: Acquired hypothyroidism On: :36 Request CBC with auto diff (45394)Indication: Abdominal pain, acute, right lower quadrant On: 0-Cko-514855:06 Request METABOLIC PANEL, COMPREHENSIVE (86766)Indication: Abdominal pain, acute, right lower quadrant On: 8-Uai-978474:06 Request Urinalysis, Office (60710)Indication: Low Back Pain (Renamed from LBP (low back pain)) On: 50-Tzb-920660:09 Request Vitamin D Hydroxy (21264)Indication: Vitamin D deficiency, unspecified On: 48-Bkl-804587:32 Request METABOLIC PANEL, COMPREHENSIVE (36366)Indication: Essential hypertension On: :31 Request LIPID PANEL (73204)Indication: Hypercholesterolemia On: : Request TSH (74327)Indication: Acquired hypothyroidism On: : Request LIPID PANEL (19595)Indication: Hypercholesterolemia On: :45 Request TSH (00349)Indication: Acquired hypothyroidism On: :44 Request METABOLIC PANEL, COMPREHENSIVE (56500)Indication: Essential hypertension On: :44 Request CBC, PLATELETS & AUT DIFF (37168)Indication: DEFICIENCY, B-COMPLEX NEC On: 4-Zxs-348071:43 Request VITAMIN B-12 (CYANOCOBALAMIN) (91837)Indication: DEFICIENCY, B-COMPLEX NEC On: 3-Umm-615075:43 Request Vitamin D Hydroxy (45680)Indication: Vitamin D deficiency, unspecified On: 6-Hce-276944:43 Request IRON (63189)Indication: Anemia On: 4-Gvp-059850:42 Request Vitamin D Hydroxy (94854)Indication: Vitamin D deficiency, unspecified On: 8-Nwr-159042:36 Request VITAMIN B-12 (CYANOCOBALAMIN) ([id number])Indication: DEFICIENCY, B-COMPLEX NEC On: :35 Request CBC WITH MANUAL DIFF ([id number])Indication: DEFICIENCY, B-COMPLEX NEC On: :35 Request METABOLIC PANEL, COMPREHENSIVE (96330)Indication: Essential hypertension On: :35 Request T3, FREE (TRIDOTHYRONINE) (10097)Indication: Acquired hypothyroidism On: :35 Request T4, FREE (10510)Indication: Acquired hypothyroidism On: :35 Request TSH ([id number])Indication: Acquired hypothyroidism On: :34 Request TSH ([id number])Indication: Acquired hypothyroidism On: 92-Now-070630:23 Request Comments: recheck in 6 weeks Metabolic Panel, Basic (08593)Indication: Essential hypertension On: 89-Vry-184489:16 Request TSH ([id number])Indication: Acquired hypothyroidism On: 20-Mxl-357278:22 Request C-REACTIVE PROTEIN (23813)Indication: right lower quadrant pain On: :51 Request SED RATE ERYTHROCYTE (21386)Indication: right lower quadrant pain On: :51 Request Magnesium (05464)Indication: Leg cramps On: :43 Request CBC WITH MANUAL DIFF ([id number])Indication: Edema leg On: :42 Request LIPID PANEL ([id number])Indication: Hypercholesterolemia On: :41 Request METABOLIC PANEL, COMPREHENSIVE (54311)Indication: Essential hypertension On: :41 Request VITAMIN B-12 (CYANOCOBALAMIN) (54638)Indication: Other vitamin B12 deficiency anemia On: :41 Request Vitamin D Hydroxy (90622)Indication: Vitamin D deficiency, unspecified On: :41 Request Metabolic Panel, Basic (55439)Indication: Acute renal failure, unspecified acute renal failure type On: :31 Request TSH ([id number])Indication: Acquired hypothyroidism On: :30 Request LIPID PANEL (53739)Indication: Hypercholesterolemia On: :39 Request Vitamin D Hydroxy (69794)Indication: Vitamin D deficiency, unspecified On: :39 Request VITAMIN B-12 (CYANOCOBALAMIN) (33139)Indication: Other vitamin B12 deficiency anemia On: :39 Request CBC WITH MANUAL DIFF ([id number])Indication: Other vitamin B12 deficiency anemia On: :39 Request METABOLIC PANEL, COMPREHENSIVE (31627)Indication: Essential hypertension On: :39 Request Vitamin D Hydroxy (55023)Indication: Vitamin D deficiency, unspecified On: :37 Request LIPID PANEL ([id number])Indication: Hypercholesterolemia On: :37 Request TSH ([id number])Indication: Acquired hypothyroidism On: :37 Request CBC WITH MANUAL DIFF ([id number])Indication: Essential hypertension On: :39 Request METABOLIC PANEL, COMPREHENSIVE (54440)Indication: Essential hypertension On: :39 Request VITAMIN B-12 (CYANOCOBALAMIN) (04699)Indication: b12 deficiency On: :39 Request LIPID PANEL ([id number])Indication: Hypercholesterolemia On: :39 Request Vitamin D Hydroxy (42509)Indication: Vitamin D deficiency, unspecified On: :32 Request VITAMIN B-12 (CYANOCOBALAMIN) (64643)Indication: b12 deficiency On: :32 Request Vitamin D Hydroxy (27497)Indication: Vitamin D deficiency, unspecified On: :32 Request METABOLIC PANEL, COMPREHENSIVE (53053)Indication: Essential hypertension On: :32 Request LIPID PANEL (31763)Indication: Hypercholesterolemia On: :32 Request TSH ([id number])Indication: Acquired hypothyroidism On: :32 Request CBC WITH MANUAL DIFF (30150)Indication: Essential hypertension On: :30 Request METABOLIC PANEL, COMPREHENSIVE (60937)Indication: Essential hypertension On: :29 Request VITAMIN B-12 (CYANOCOBALAMIN) (66038)Indication: DEFICIENCY, B-COMPLEX NEC On: :29 Request Vitamin D Hydroxy (10907)Indication: Vitamin D deficiency, unspecified On: :29 Request TSH ([id number])Indication: Acquired hypothyroidism On: :29 Request LIPID PANEL ([id number])Indication: Hypercholesterolemia On: :29 Request Vitamin B-12 (cyanocobalamin) (14907)Indication: b12 deficiency On: :01 Request CALCIFIDIOL (04812) VIT D 25Indication: Vitamin D deficiency, unspecified On: 72-Vft-228301:00 Request TSH ([id number])Indication: Acquired hypothyroidism On: 32-Kaj-482460:34 Request LIPID PANEL (88653)Indication: Hypercholesterolemia On: 18-Dlo-274613:34 Request Metabolic Panel, Basic ([id number])Indication: Essential hypertension On: 03-Rft-179675:26 Request VITAMIN B-12 (CYANOCOBALAMIN) ([id number])Indication: DEFICIENCY, B-COMPLEX NEC On: 11-Cee-278926:19 Request Vitamin D Hydroxy (85770)Indication: Vitamin D deficiency, unspecified On: 61-Unb-160105:19 Request VITAMIN D, 1, 25-DIHYDROXY (36505)Indication: Vitamin D deficiency, unspecified On: 2-Xbq-206633:19 Request Comments: Vit D [place] Vitamin B-12 (cyanocobalamin) (67720)Indication: b12 deficiency On: 6-Ypl-766721:17 Request CBC WITH MANUAL DIFF ([id number])Indication: b12 deficiency On: 31-Utw-908307:17 Request VITAMIN B-12 (CYANOCOBALAMIN) ([id number])Indication: b12 deficiency On: 96-Mxp-150628:14 Request VITAMIN B-12 (CYANOCOBALAMIN) ([id number])Indication: Vitiligo On: 62-Pxo-967185:37 Request LIPID PANEL (56557)Indication: Hypercholesterolemia On: 44-Nyu-992564:33 Request TSH ([id number])Indication: Acquired hypothyroidism On: 38-Yap-606238:32 Request Vitamin D Hydroxy ([id number])Indication: Vitamin D deficiency, unspecified On: 69-Dst-761361:31 Request METABOLIC PANEL, COMPREHENSIVE (67835)Indication: Essential hypertension On: 18-Biv-126518:42 Request Vitamin D Hydroxy (99774)Indication: Vitamin D deficiency, unspecified On: 70-Htf-227351:42 Request CAROL (ANTINUCLEAR ANTIBODY) ([id number])Indication: Pain in unspecified joint On: 7-Khh-180333:27 Request C-REACTIVE PROTEIN (40393)Indication: Pain in unspecified joint On: :27 Request CBC WITH MANUAL DIFF ([id number])Indication: Pain in unspecified joint On: :27 Request CCP ANTIBODY (52853)Indication: Pain in unspecified joint On: 6-Erg-459995:27 Request METABOLIC PANEL, COMPREHENSIVE (94109)Indication: Pain in unspecified joint On: :27 Request RHEUMATOID FACTOR-QUANT (58723)Indication: Pain in unspecified joint On: : Request SED RATE ERYTHROCYTE ([id number])Indication: Pain in unspecified joint On: : Request TSH ([id number])Indication: Pain in unspecified joint On: : Request SED RATE ERYTHROCYTE ([id number])Indication: flank pain On: :35 Request C-REACTIVE PROTEIN (32614)Indication: flank pain On: :35 Request METABOLIC PANEL, COMPREHENSIVE (72592)Indication: flank pain On: :35 Request CBC WITH MANUAL DIFF ([id number])Indication: flank pain On: : Request URINE CESAR CULTURE (TUNDE COL COUNT) ([id number])Indication: flank pain On: :35 Request Thin prep Pap (04522)Indication: Well woman exam with routine gynecological exam On: :09 Request CBC WITH MANUAL DIFF ([id number])Indication: Essential hypertension On: 26-Ejc-972152:02 Request METABOLIC PANEL, COMPREHENSIVE ([id number])Indication: Essential hypertension On: 44-Zyo-819380:02 Request LIPID PANEL (93510)Indication: Hypercholesterolemia On: 93-Uyy-844346:02 Request METABOLIC PANEL, COMPREHENSIVE (08657)Indication: Essential hypertension On: 88-Skl-044751:18 Request TSH ([id number])Indication: Acquired hypothyroidism On: 51-Gcc-080619:18 Request SED RATE ERYTHROCYTE (03349)Indication: Abdominal pain, acute, left upper quadrant On: 92-Bhj-162536:09 Request C-REACTIVE PROTEIN ([id number])Indication: Abdominal pain, acute, left upper quadrant On: 25-Hnw-708068:09 Request CBC WITH MANUAL DIFF ([id number])Indication: edema On: 28-Nct-345426:09 Request METABOLIC PANEL, COMPREHENSIVE (67035)Indication: edema On: 75-Pxo-097149:09 Request TSH ([id number])Indication: Acquired hypothyroidism On: 72-Xsp-171916:03 Request CBC WITH MANUAL DIFF ([id number])Indication: Abdominal pain, acute, left upper quadrant On: 20-Jke-900254:22 Request Lipase ([id number])Indication: Abdominal pain, acute, left upper quadrant On: 45-Rto-043788:22 Request Amylase (92684)Indication: Abdominal pain, acute, left upper quadrant On: 40-Idq-677410:21 Request Thin prep Pap (53371)Indication: Well woman exam with routine gynecological exam On: 55-Ktg-661453:43 Request HEPATIC FUNCTION PANEL ([id number])Indication: Hypercholesterolemia On: :52 Request LIPID PANEL ([id number])Indication: Hypercholesterolemia On: :52 Request CBC, PLATELETS & AUTO DIFF ([id number])Indication: Leukopenia On: 87-Ukg-206707:34 Request Planned Encounters Medical; [facility] 6 Month Fu - On: 03-Jul-2018 13:00 [facility] Fast DO, Kristine A Fast DO, Kristine A Planned Procedures DEXA SCAN AXIAL SKELETON (03311)By: On: 02-Jan-2018 Intent Fast DO, Kristine A Fast DO, Kristine A Comments: mar - RenalBy: Fast DO, On: 02-Jan-2018 Intent Kristine A Fast DO, Kristine A Flu Vaccine (Quadrivalent) 55154Lc: On: 02-Jan-2018 Intent Fast DO, Kristine A Fast DO, Kristine A Comments: Lot #[id number]-3/30/2019Site-L dltd, IMDose prefilled syringegiven by: Melly reviewed and ABN signed ELECTROCARDIOGRAM, COMPLETE (ECG) On: 28-Aug-2017 Intent (87864)By: Fast DO, Kristine A Fast Comments: ekg showed normal sinus rhythym, normal axis, no acute st/t wave changes DO, Kristine A SCREENING DIGITAL TOMOSYNTHESIS OF On: 28-Aug-2017 Intent BREAST ([id number])By: Fast DO, Kristine A Fast DO, Kristine A B 12 Injection, 1000 mcg (J3420)By: On: 15-Mar-2017 Intent Visit, Nurse Comments: [id number]/ANOOP Almodovar B 12 Injection, 1000 mcg (J3420)By: On: 22-Feb-2017 Intent Fast DO, Kristine A Fast DO, Kristine A Comments: lot: [id number]: 05/01site/route: L del/IMamt: 1mLVIS signed when applicableCheRAYMUNDO carson Flu Vaccine (Quadrivalent) 62485Kr: On: 17-Jan-2017 Intent Fast DO, Kristine A [...] (J3420)By: On: 12-Dec-2016 Intent Visit, Nurse Comments: 13723/2018R arm, IM1ml, 1000mcgML, VACUUM BOTTLE ASSEMBLER B 12 Injection, 1000 mcg (J3420)By: On: [...] Kristine A Fast DO, Kristine A Comments: B12lot:8167530.1exp:ite:lt deltroute:Imdose:1mlD.Solitario MA B 12 Injection, 1000 mcg (J3420)By: On: 19-Jul-2016 Intent Fast DO, Kristine A Fast DO, Kristine A Comments: lot: [id number]: ite/route: L del/IMamt: 1mlVIS signed when applicableChelsea, MICROCOMPUTER TECHNICIAN B 12 Injection, 1000 mcg (J3420)By: On: 16-Jun-2016 Intent Fast DO, Kristine A Fast DO, Kristine A Comments: B12lot:6191exp:ite:lt deltroute:IMdose:1mlD.Emick, MA B 12 Injection, 1000 mcg (J3420)By: [...] armGiven By:TAVON signed DEXA SCAN AXIAL SKELETON ([id number])By: On: 04-Apr-2016 Intent Fast DO, Kristine A Fast DO, Kristine A MRI LUMBAR SPINE W/O CONTRAST On: 04-Apr-2016 Intent ([id number])By: Fast DO, Kristine A Fast DO, Kristine A B 12 Injection, 1000 mcg (J3420)By: On: 01-Mar-2016 Intent Fast DO, Kristine A Fast DO, Kristine A Comments: Lot:[id number]:07/28Dose:1mlRoute:IMSite:l arm Given By:TAVON signed B 12 Injection, 1000 mcg (J3420)By: On: 21-Jan-2016 Intent Fast DO, Kristine A Fast DO, Kristine A Comments: B12lot:6185exp:18site:lt deltroute:IMdose:1mlD.AYAD Lewis Nuclear Stress Test/Stress On: 18-Dec-2015 Intent SPECT/TreadmillBy: Fast DO, Kristine A Fast DO, Kristine A Echo CompleteBy: Fast DO, Kristine A On: 11-Dec-2015 Intent Fast DO, Kristine A ELECTROCARDIOGRAM, COMPLETE (ECG) On: 11-Dec-2015 Intent ([id number])By: Fast DO, Kristine A Fast Comments: ekg showed normal sinus rhythym, normal axis, no acute st/t wave changes DO, Kristine A B 12 Injection, 1000 mcg (J3420)By: On: 11-Dec-2015 Intent Hunter Lewis Comments: B12lot:6185exp:418site:lt deltroute:IMdose:1mlD.AYAD Lewis B 12 Injection, 1000 mcg (J3420)By: On: 05-Nov-2015 Intent Hunter Lewis Comments: B12lot:6155exp:ite:lt deltroute:ImDose:1mlD.AYAD Lewis B 12 Injection, 1000 mcg (J3420)By: On: [...] A Fast DO, Kristine A Comments: B12lot:5200exp:07/27site:lt deltroute:IMdose:1mlDAYAD LEWIS B 12 Injection, 1000 mcg (J3420)By: On: 11-May-2015 Intent Fast DO, Kristine A Fast DO, Kristine A Comments: Lot:[id number]:11/27Dose:1mlRoute:IMSite:l armGiven By:TAVON signed MAMMOGRAM, SCREENING, BOTH BREAST On: 21-Apr-2015 Intent (72988)By: Fast DO, Kristine A Fast DO, Kristine A B 12 Injection, 1000 mcg (J3420)By: On: 21-Apr-2015 Intent Fast DO, Kristine A Fast DO, Kristine A Comments: Lot:[id number]:11/27Dose:1mlRoute:IMSite:r arm Given By:JKMVIS signed B 12 Injection, 1000 mcg (J3420)By: On: 16-Mar-2015 Intent Fast DO, Kristine A Fast DO, Kristine A Comments: lot: [id number]: 06/27site/route: L del/IMamt: 1mLVIS signed when applicableKylee MICROCOMPUTER TECHNICIAN B 12 Injection, 1000 mcg (J3420)By: On: 09-Feb-2015 Intent Fast DO, Kristine A Fast DO, Kristine A Comments: B12lot:[id number]:06/27site:lt deltoidroute:IMdose:1mlDEMICK, SMA B 12 Injection, 1000 mcg (J3420)By: On: 15-Jan-2015 Intent ZahraHunter erazo Comments: B 12Lot:[id number]:17site:lt deltoidroute:IMdose:.5mlDEMICK, SMA B 12 Injection, 1000 mcg (J3420)By: On: 10-Dec-2014 Intent Fast DO, Kristine A Fast DO, Kristine A Comments: lot [id number] - see ANOOP Mcallister CT - Abdomen & Pelvis (IV Contrast On: 16-Sep-2014 Intent Needed)By: Fast DO, Kristine A Fast DO, Kristine A B 12 Injection, 1000 mcg (J3420)By: On: 16-Sep-2014 Intent Fast DO, Kristine A Fast DO, Kristine A Comments: Lot:[id number]:11.16Route:IMSite:R deltoidDose: 1 mLgiven by: Carlita Ariza MICROCOMPUTER TECHNICIAN B 12 Injection, 1000 mcg (J3420)By: On: 06-Aug-2014 Intent Fast DO, Kristine A Fast DO, Kristine A Comments: lot:[id number]:05/26route:IMdose:1MLSite:Right Deltoidgiven by: ANS B 12 Injection, 1000 mcg (J3420)By: On: 19-Jun-2014 Intent Visit, Nurse Comments: 4090a3.2016given, see ANOOP Altamirano B 12 Injection, 1000 mcg (J3420)By: On: 22-Apr-2014 Intent SlaSilvia buchanan LPN Comments: lot: [id number]: 4.16Dose: 1,000 mcgSite: l dltdLocation; IMby: Prevnar 13 (47189)By: Fast DO, On: 24-Mar-2014 Intent Kristine A Fast DO, Kristine A Comments: lot: [id number]: 3/16site/route: L del/IMamt: 0.5mLVIS signed when applicableChels, [facility] Ultrasound - PelvisBy: Fast DO, On: 24-Mar-2014 Intent Kristine A Fast DO, Kristine A B 12 Injection, 1000 mcg (J3420)By: On: 24-Mar-2014 Intent Fast DO, Kristine A Fast DO, Kristine A Comments: lot: [id number]: 4/16site/route: R del/IMamt:1mlVIS signed when applicableCheSSM DePaul Health Center B 12 Injection, 1000 mcg (J3420)By: On: 24-Feb-2014 Intent Silvia Burton LPN Comments: lot: [id number]: 4.16Dose: 1,000 mcgSite: l dltdLocation; IMby: B 12 Injection, 1000 mcg (J3420)By: On: 22-Jan-2014 Intent Fast DO, Kristine A Fast DO, Kristine A Comments: lot [id number] 08/2015location L armroute imgiven by - msmith VIS and/or ABN signed B 12 Injection, 1000 mcg (J3420)By: On: 30-Dec-2013 Intent Fast DO, Kristine A Fast DO, Kristine A Comments: lot [id number] 05/2015location L armroute imgiven by - msmithVIS [...] Fast Comments: today DO, Kristine A EKG ([id number])By: Fast DO, Kristine A On: 05-Nov-2013 Intent Fast DO, Kristine A Comments: ekg showed normal sinus rhythym, normal axis, no acute st/t wave changes B 12 Injection, 1000 mcg (J3420)By: On: 05-Nov-2013 Intent Fast DO, Kristine A Fast DO, Kristine A Comments: Lot:[id number]:11/24Dose:1mlRoute:IMSite:enoch armGiven By:TAVON signed PHYSICAL THERAPY EVALUATION On: 18-Oct-2013 Intent (66875)By: Aquiles Potts CNP SPECIMEN HANDLING/TRANSPORT On: 18-Oct-2013 Intent ([id number])By: Aquiles Potts CNP B 12 Injection, 1000 mcg (J3420)By: On: 11-Oct-2013 Intent Aquiles Potts CNP Comments: Lot:[id number]:11/2013Dose:1mlRoute:IMSite:enoch Pierre By:TAVON signed B 12 Injection, 1000 mcg (J3420)By: On: 18-Sep-2013 Intent Fast DO, Kristine A Fast DO, Kristine A B 12 Injection, 1000 mcg (J3420)By: On: 07-Aug-2013 Intent Fast DO, Kristine A Fast DO, Kristine A Comments: lot: [id number]: ite/route: Enoch carey/IMamt: 1mLVIS signed when applicableChelsea, MICROCOMPUTER TECHNICIAN MAMMOGRAM, SCREENING, BOTH BREASTS On: 24-Jun-2013 Intent (23241)By: Fast DO, Kristine A Fast DO, Kristine A B 12 Injection, 1000 mcg (J3420)By: On: 24-Jun-2013 Intent Fast DO, Kristine A Fast DO, Kristine A Comments: Lot:[id number]:04/28Dose:1mlRoute:IMSite:enoch armGiven By:TAVON signed B 12 Injection, 1000 mcg (J3420)By: On: 15-May-2013 Intent Visit, Nurse Comments: Lot:[id number]:01/25Dose:1mlRoute:IMSite:enoch armGiven By:TAVON signed B 12 Injection, 1000 mcg (J3420)By: On: 22-Apr-2013 Intent Fast DO, Kristnie A Fast DO, Kristine A Comments: lot: [id number]: 01/25site/route: L deltoid/IMamt: 1mLVIS signed when applicableChelsea, MICROCOMPUTER TECHNICIAN B 12 Injection, 1000 mcg (J3420)By: On: 21-Mar-2013 Intent Fast DO, Kristine A Fast DO, Kristine A Comments: see flowsheetMegan PNEUM VAC ADLT/IMUMNOSPR, SBC/INTRM On: 18-Feb-2013 Intent (09656)By: Fast DO Kristine A Fast Comments: Lot: [id number]: 06Vqz83Zbk: 0.5mlRoute: IMSite: L deltoidGiven by: ANOOP Moralez DO, Kristine A ADMINISTRATION OF PNEUMOCOCCAL On: 18-Feb-2013 Intent VACCINE (G0009)By: Antwan DO Kristine A Fast DO, Kristine A Eprescribed prescriptions On: 18-Feb-2013 Intent (G8553)By: Deanna Michelle B 12 Injection, 1000 mcg (J3420)By: On: 02-Jan-2013 Intent Deanna Michelle Comments: lot: [id number]: 10/25site/route: L deltoid/IMamt: 1mLVIS signed when applicableChelsea, MICROCOMPUTER TECHNICIAN B 12 Injection, 1000 mcg (J3420)By: On: 26-Nov-2012 Intent Antwan DOCuauhtemoca A Antwan DO, Kristine A Comments: Lot:[id number]:10/2013Dose:1mlRoute:IMSite:l armGiven By:chani Valenzuela signed B 12 Injection, 1000 mcg (J3420)By: On: 29-Oct-2012 Intent Татьяна Vera LPN Comments: 1ml - see flowsheet -Татьяна Eprescribed prescriptions On: 29-Oct-2012 Intent (G8553)By: Татьяна Vera LPN B 12 Injection, 1000 mcg (J3420)By: On: 21-Sep-2012 Intent Deanna Michelle Comments: lot: [id number]: 08/24site/route: R deltoid/IMamt: 1mLVIS signed when applicableChelsea, MICROCOMPUTER TECHNICIAN B 12 Injection, 1000 mcg (J3420)By: On: 28-Aug-2012 Intent Antwan MIX Kristine A Fast DO, Kristine A Comments: Lot #:[id number] date:mount given:1mlRoute: IMSite given: left deltoidGiven by: AYAD Dailey B 12 Injection, 1000 mcg (J3420)By: On: 23-Jul-2012 Intent Fast DO, Kristine A Fast DO, Kristine A Comments: Lot: [id number]: 02/23Amt: 1000mcg/1mlRoute: IMSite: L Deltoid per pt [...] A Fast DO, Kristine A Comments: lot: [id number]:02/23site/route: L deltoid/IMamt: 1ccVIS signed when applicableCheRAYMUNDO carson B 12 Injection, 1000 mcg (J3420)By: On: 09-May-2012 Intent Kylee Castellon Comments: Lot:[id number]:02/2014Dose:1mlRoute:IMSite:L armGiven By:Jameson signed VENOUS DOPPLER LOWER EXTREMITY On: 18-Apr-2012 Intent (85510)By: Fast DO, Kristine A Fast DO, Kristine A Radiology - Hip - RightBy: Fast DO, On: 06-Apr-2012 Intent Kristine A Fast DO, Kristine A Comments: call results B 12 Injection, 1000 mcg (J3420)By: On: 06-Apr-2012 Intent Lisandra Chilel Comments: Lot #[id number]-61/14Site-left deltoidDose-1 mlgiven by: Omkar Rivera LPN Eprescribed prescriptions On: 06-Apr-2012 Intent (G8553)By: Lisandra Chilel Inhaler Demo ([id number])By: Fast DO, On: 06-Feb-2012 Intent Kristine A Fast DO, Kristine A B 12 Injection, 1000 mcg (J3420)By: On: 06-Feb-2012 Intent Kylee Castellon Comments: Lot:[id number]:Dose:1mlRoute:IMSite:L armGiven By:TAVON signed MAMMOGRAM, SCREENING, BOTH BREASTS On: 06-Feb-2012 Intent (06215)By: Fast DO, Kristine A Fast DO, Kristine A Eprescribed prescriptions On: 06-Feb-2012 Intent (G8553)By: Lisandra Chilel B 12 Injection, 1000 mcg (J3420)By: On: 02-Dec-2011 Intent Chani Carreon LPN Comments: Lot: [id number]: 2013Amt: 1ml/1000 mcgRoute: IMSite: L deltoidGiven by: ANOOP Moralez Breast Ultrasound - LeftBy: Fast On: 04-Nov-2011 Intent DO, Kristine A Fast DO, Kristine A B 12 Injection, 1000 mcg (J3420)By: On: 31-Oct-2011 Intent Chani Carreon LPN Comments: Lot: [id number]: Feb 2013Amt: 1ml/1000mcgRoute: IMSite: L deltoid per pt requestGiven by: ANOOP Moralez B 12 Injection, 1000 mcg (J3420)By: On: 28-Sep-2011 Yasmeen Jacob LPN Comments: Lot #[id number]-01/23Site-right deltoidDose-1 mlgiven by: [...] Ultrasound - LeftBy: Ciesa On: 22-Jun-2011 Intent ZULEIMA Judy B 12 Injection, 1000 mcg (J3420)By: On: 22-Jun-2011 Intent Comfortrafi DEWEYAquiles Comments: Lot #[id number]-01/23Site-right deltoidDose-1 mlgiven by: Omkar Rivera LPN Breast Ultrasound - LeftBy: Ciesa On: 22-Jun-2011 Intent ZULEIMA Aquiles Vasquez Comments: today if possible Breast Diagnostic - LeftBy: Ciesa On: 22-Jun-2011 Intent ZULEIMA Judy Comments: today if possible B 12 Injection, 1000 mcg (J3420)By: On: 09-May-2011 Intent Mast Phyllis MUELLER Comments: Lot #: [id number] Expiration date: 10/23Amount given: 1 mlRoute: IMSite given: left deltoidGiven by: AMI Alcarazplant custodian - Cervical SpineBy: Fast On: 13-Apr-2011 Intent DO, Kristine A Fast DO, Kristine A TD Injection , IM ([id number])By: On: 13-Apr-2011 Intent Lisandra Chilel Comments: received in 2005 B 12 Injection, 1000 mcg (J3420)By: On: 29-Mar-2011 Intent Kateryna Lunsford MD Comments: Lot #[id number]-8.13Site-Left arm, IMDose 0.5mlgiven by:Татьяна B 12 Injection, 1000 mcg (J3420)By: On: 08-Feb-2011 Intent Татьяна Vera LPN Comments: Lot [id number]#Exp-7.13Site-R arm, IMDose 1mlgiven by:Татьяна DXA, BONE DENSITY, AXIAL SKELETON On: 24-Jan-2011 Intent (76127)By: Lisandra Chilel Comments: post menopausal wihtout estrogen FLU VAC, SPLIT, >3 YEARS, INTRAMUSC On: 24-Jan-2011 Intent (25863)By: Lisandra Chilel Comments: [facility] at [facility] B 12 Injection, 1000 mcg (J3420)By: On: 21-Dec-2010 Intent Tripp DAVALOS Licha INJECTION, VITAMIN B-12 On: 19-Nov-2010 Intent CYANOCOBALAMIN, UP TO 1000 MCG Comments: Lot:[id number]:04/25Amt:1mlRoute:IMSite:left deltGiven By: ANOOP Sotelo (Special Coverage Instructions Apply. See CIM: 45-4 and MCM: 2049) (J3420)By: Vi Ramirez EKG ([id number])By: Lisandra Chilel On: 05-Nov-2010 Intent Comments: ekg showed normal sinus rhythym, normal axis, no acute st/t wave changes MAMMOGRAM, SCREENING, BOTH BREASTS On: 05-Nov-2010 Intent (72027)By: Fast DO, Kristine A Fast DO, Kristine [...] 03-Jun-2010 Intent Yasmeen Rivera LPN Comments: Lot #[id number]-left deltoidDose-1 mlgiven by:[facility] IMMUNIZ ADMNIN, 1 VAC, SNGL/COMBO On: 19-Apr-2010 Intent (57473)By: Yasmeen Rivera LPN Comments: Lot #[id number]-0/28/02Site-left deltoidDose- 0.85mlgiven by:[facility] (21668)By: Miguel On: 19-Apr-2010 Intent Yasmeen DAVALOS B 12 Injection, 1000 mcg (J3420)By: On: 19-Apr-2010 Intent Hluszti VACUUM BOTTLE ASSEMBLER, Yasmeen B 12 Injection, 1000 mcg (J3420)By: On: 22-Mar-2010 Intent Long VACUUM BOTTLE ASSEMBLER, Татьяна L Comments: Lot #[id number]-10/22Site-L arm, IMDose 1mlgiven by:Yasmeen INJECTION, VITAMIN B-12 On: 25-Feb-2010 Intent CYANOCOBALAMIN, UP TO 1000 MCG Comments: injection given in left deltoid. Lot # [id number] 10/22. 1ml. Pt tolerated well. hh (Special Coverage Instructions Apply. See CIM: 45-4 and MCM: 2049) (J3420)By: Shania Rosario B 12 Injection, 1000 mcg (J3420)By: On: 25-Jan-2010 Intent Yasmeen Rivera LPN Comments: Lot #[id number]-07/22Site-left deltoidDose-1 mlgiven by:[facility] FLU VAC, SPLIT, >3 YEARS, INTRAMUSC On: 30-Dec-2009 Intent (63374)By: Lisandra Chilel Comments: Lot #[id number]-2/11Site-left deltoidgiven by:[facility] B 12 Injection, 1000 mcg (J3420)By: On: 30-Dec-2009 Intent Lisandra Chilel Comments: Lot #[id number]-07/22Site-right deltoidDose-1 mlgiven by:[facility] Renal Duplex ScanBy: Fast DO, Kristine On: 30-Dec-2009 Intent A Fast DO, Kristine A IMMUNIZ ADMNIN, 1 VAC, SNGL/COMBO On: 30-Dec-2009 Intent (02241)By: Lisandra Chilel B 12 Injection, 1000 mcg (J3420)By: On: 14-Dec-2009 Intent Shayna Harris Comments: Lot:[id number]:07/22Dose:1000mcg/1mlRoute:IMSite:right deltoid Given by: AYAD Gil B 12 Injection, 1000 mcg (J3420)By: On: 26-Nov-2009 Intent Phyllis Escobar RN Comments: documented in flowsheet B 12 Injection, 1000 mcg (J3420)By: On: 19-Oct-2009 Intent Yasmeen Rivera LPN Comments: Lot #[id number]-2/Site-left deltoidDose-1 mlgiven by:[facility] B 12 Injection, 1000 mcg (J3420)By: On: 13-Oct-2009 Intent Shayna Harris Comments: Lot:[id number]:2/12Dose:1000mcg/1mlRoute:imSite:right sideGiven by: AYAD Gil B 12 Injection, 1000 mcg ([id number])By: On: 06-Oct-2009 Intent Fast DO, Kristine A Fast DO, Kristine A Comments: Lot #[id number]-2Site-right deltoidDose- 1 mlgiven by:[facility] MRI - BrainBy: Fast DO, Kristine A On: 06-Oct-2009 Intent Fast DO, Kristine A Comments: left arm paresthesia - rule out lacunar infarct- please do today and call me with result B 12 Injection, 1000 mcg ([id number])By: On: 01-Oct-2009 Intent Phyllis Escobar RN CT - AbdomenBy: Fast DO, Kristine A On: 05-Aug-2009 Intent Fast DO, Kristine A Comments: atten right kidney Ultrasound - GallbladderBy: Fast On: 21-Apr-2009 Intent DO, Kristine A Fast DO, Kristine A Comments: please do this week and call ressults EKG ([id number])By: Fast DO, Kristine A On: 17-Dec-2008 Intent Fast DO, Kristine A Comments: ekg showed normal sinus rhythym, normal axis, no acute st/t wave changes MAMMOGRAM, SCREENING, BOTH BREASTS On: 17-Dec-2008 Intent ([id number])By: Fast DO, Kristine A Fast DO, Kristine A MRI - Lumbar SpineBy: Fast DO, On: 17-Dec-2008 Intent Kristine A Fast DO, Kristine A FLU VAC, SPLIT, >3 YEARS, INTRAMUSC On: 17-Dec-2008 Intent ([id number])By: Lisandra Chilel Comments: Lot #:[id number] date:mount given:0.5mlRoute: IMSite given:left deltoidGiven by: AYAD Dialey ADMINISTRATION OF INFLUENZA VIRUS On: 17-Dec-2008 Intent VACCINE ([id number])By: Lisandra Chilel CT - Abdomen & Pelvis Stone On: 18-Aug-2008 Intent ProtocolBy: Fast DO, Kristine A Fast Comments: stat -call results DO, Kristine A Radiology - Chest- PA and LatBy: On: 24-Mar-2008 Intent Fast DO, Kristine A Fast DO, Kristine A Spirometry ([id number])By: Antwan DO, On: 24-Mar-2008 Intent Kristine A Fast DO, Kristine A Comments: good effort and curve minimal decrease small airways ADMINISTRATION OF PNEUMOCOCCAL On: 17-Dec-2007 Intent VACCINE ([id number])By: Fast DO, Kristine A Fast DO, Kristine A PNEUM VAC ADLT/IMUMNOSPR, SBC/INTRM On: 18-Dec-2007 Intent ([id number])By: Fast DO, Kristine A Fast Comments: Lot #:[id number] date:08/19Amount given:0.5mlRoute: IMSite given:left deltGiven by: AYAD Dailey DO, Kristine A MAMMOGRAM, SCREENING, BOTH BREASTS On: 17-Dec-2007 Intent ([id number])By: Fast DO, Kristine A Fast Comments: end of feb DO, Kristine A DXA, BONE DENSITY, AXIAL SKELETON On: 31-Oct-2007 Intent ([id number])By: Fast DO, Kristine A Fast DO, Kristine A Echo CompleteBy: Fast DO, Kristine A On: 25-Jul-2007 Intent Fast DO, Kristine A Bio Z ([id number])By: Fast DO, Kristine A On: 25-Jul-2007 Intent Fast DO, Kristine A Comments: good cardiac output and no excesive gfluid EKG ([id number])By: Fast DO, Kristine A On: 25-Jul-2007 Intent Fast DO, Kristine A Comments: ekg showed normal sinus rhythym, normal axis, no acute st/t wave changes CT - Abdomen & Pelvis (IV Contrast On: 11-Jul-2007 Intent Needed)By: Adrianna Morgan DO MAMMOGRAM, SCREENING, BOTH BREASTS On: 27-Mar-2006 Intent ([id number])By: Adrianna Morgan DO Planned Medications Vitamin B-12 [...] MCG/ML Injection Solution Ordered: 15-Jan-2015 Pending Hunter Lewis Vitamin B-12 1000 MCG/ML Injection Solution Ordered: [...] MCG/ML Injection Solution Ordered: 22-Apr-2014 Pending Slarb [employer], Silvia Vitamin B-12 1000 MCG/ML Injection Solution Ordered: 24-Mar-2014 Pending Fast DO, Kristine A Fast DO, Kristine A Vitamin B-12 1000 MCG/ML Injection Solution Ordered: 24-Feb-2014 Pending Slarb [employer]SEMBLER, Silvia Vitamin B-12 1000 MCG/ML Injection Solution [...] 1000 MCG/ML Injection Solution Ordered: 11-Dec-2015 Pending Hunter Lewis Vitamin B-12 1000 MCG/ML Injection Solution Ordered: 05-Nov-2015 Pending Emick, [place] Vitamin B-12 1000 MCG/ML Injection Solution Ordered: [...] 1000 MCG/ML Injection Solution Ordered: 03-Jun-2010 Pending Yasmeen Rivera LPN Vitamin B-12 1000 MCG/ML Injection Solution Ordered: 19-Apr-2010 Pending Yasmeen Rivera LPN Vitamin B-12 1000 MCG/ML Injection Solution Ordered: 22-Mar-2010 Pending Mike Vera LPNn L Vitamin B-12 1000 MCG/ML Injection Solution Ordered: 25-Feb-2010 Pending Shania Rosario Vitamin B-12 1000 MCG/ML Injection Solution Ordered: 25-Jan-2010 Pending Miguel LIANGN, Yasmeen Vitamin B-12 1000 MCG/ML Injection Solution Ordered: 29-Jul-2011 Pending Licha Almaguer LPN Vitamin B-12 1000 MCG/ML Injection Solution Ordered: 22-Feb-2017 Pending Fast DO, Kristine A Fast DO, Kristine A Vitamin B-12 1000 MCG/ML Injection Solution Ordered: 05-Sep-2011 Pending Miguel LIANGN, Yasmeen Vitamin B-12 1000 MCG/ML Injection Solution Ordered: 31-Oct-2011 Pending Lauri LIANGNChani Vitamin B-12 1000 MCG/ML Injection Solution Ordered: [...] 1000 MCG/ML Injection Solution Ordered: 28-Sep-2011 Pending Yasmeen Rivera LPN Vitamin B-12 1000 [...] online - Detail Indication: [facility] : Patient Instructions Indication: [facility] Well[facility] Physical Hip pain, right : How [...] / tylenol and - more mobile on [employer] days- cleo notices a difference Encounter Diagnosis: [...] current emotional problems. Note for Physical exam: [facility] Well[facility] Physical- just had left cataract done and next month going to do right- Michael- went well- she saw Dr Mckeon in [facility] for pain management - had inje [...] emotional problems . Note for Physical exam: [facility] Wellness Physical- her hip bursitis better can [...] do a lot of walking Encounter Diagnosis: [facility] Wellness Physical, Nonsmoker, BMI 37.0-37.9, adult, Hip [...] Follow up for chronic medical issues: getting rylie burrows in left knee next week and is [...] total knee replacement ). Date of procedure: ( End: 10-Dec-2014 21:34 / at [facility] with dr Mahesh stokes) . There have been no problems with general anesthesia or blood/blood products. Prosthetics include: dentures (partial). Note for Preoperative evaluation: [facility]- having spinal [...] scleroderma, leukopenia). Note for Follow up for pulmonology technician tim medical issues: Pt had colonoscopy done [...] scleroderma, leukopenia). Note for Follow up for pulmonology technician tim medical issues: No routine labs done [...] scleroderma, leukopenia). Note for Follow up for pulmonology technician tim medical issues: still having right lateral [...] scleroderma, leukopenia). Note for Follow up for pulmonology technician tim medical issues: sdhe is losing weight [...] scleroderma, leukopenia). Note for Follow up for pulmonology technician tim medical issues: feels well other than [...] scleroderma, leukopenia). Note for Follow up for pulmonology technician tim medical issues: No routine labs done for today.- had d/c and was neg- had steroid shot in knee by Dr Stringer - some short term help-- groin pain gone on its own - chest pain- saw Dr morgan- had kylah s test neg - no more chest [...] medical issues: she saw Jessee Stringer at [facility] for her groin pain- - said [...] Follow up for chronic medical issues: Marcela boyd on paper.- doesnt feel lumps she was [...] discharge or vomiting. Note for Flank pain: thias is new sx- started monday- hasnt been [...] the rare occ that she takes at [facility] but doesnt know accuracy, [ADDITIONAL REASON] [...] End: 22-Nov-2005 10:44 Payers Morenita Mooney/MedicareKAREN OBRIEN; a guarantor
--- OUTSIDE RECORDS SUMMARY | 2018-06-01 23:46 | XMS RPT_ITS | Continuity of Care Document ---
:1940 Author Organization [facility] Address [address] [facility] [address] [place] [address] Phone Care Team Providers Name Role Phone [...] DO, Kristine A Start : 02-Mar-2016 Active Comments:[facility] report#[id number], df approved and given to pt-jf 03/02/16 Imipramine HCl 25 MG Oral Tablet 1 (one) Tablet qhs prn for 0 days Quantity: 30 {Tablet} Refills: 1 Ordered:14-Jul-2017 Fast DO, Kristine AFast DO, Kristine A Start : 14-Jul-2017 Active Comments:verbally called to [facility] - cmanchak 5/4 Leg Cramps [...] cap daily (100 MG) Active Vitamin D3 91725 UNIT Oral Capsule 1 (one) Capsule once [...] : 11-Jul-2007 End : 08-Aug-2007 Discontinued Drisdol 92534 UNIT Oral Capsule 1 (one) Capsule once [...] Chilel End : 08-Aug-2007 Discontinued VITAMIN D, 65942QEKX (Oral Capsule) 1 cap q week (94338 UNIT) Start : 27-Mar-2013 End : 27-Mar-2013 Discontinued Comments:This order discontinued per [employer]. VITAMIN D, 40443CPXB (Oral Capsule) 1 cap Capsule q week [...] and Bladder Result: Comments: See Note; NOTES: [facility] Imaging Services [address] [place] [address] Kidney and Bladder MR#: [id number] Acct: [id number] Name: VIRGINIA URRUTIA Rep #: [id number] : 1940 F 77 From: Doug Sinclair DO PCP: Kristine Davis DO Status: REG CLI Study: Kidney and Bladder Date of Exam: 01/11/18 Exam# [id number] Ordering Dr: Kristine Davis DO STUDY: RENAL [...] Doug Sinclair DO at 23:00 EDT Tel [phone], Service support , CC: Kristine Davis DO Lead Data Architect: Signed 05-Oct-2017 TXT - Blood Flow Screening Result: Comments: See Note; NOTES: [facility] Cardiovascular Services [address] [facility] [place] [address] 10/02/17 0928 MR#: [id number] Acct: [id number] Name: VIRGINIA URRUTIA Rep #: [id number] [...] erformed By: Loreto Duron RVT 10/05/171656 Date Johna Ortega MD CC: Kristine arias DO Date Dictated: 10/02/1728 Date Transcribed: 10/05/171656 Lead Data Architect: Signed 02-Oct-2017 SCREENING MAMM (CAD), BILAT Result: Comments: See Note; NOTES: [facility] Imaging Services [address] [place] [address] SCREENING MAMM (CAD), BILAT MR#: [id number] Acct: [id number] Name: VIRGINIA URRUTIA Rep #: [id number] : 1940 F 76 From: Noel Avitia MD PCP: Kristine Davis DO Status: REG CLI Study: SCREENING MAMM (CAD), BILAT Date of Exam: 10/02/17 Exam# [id number] Ordering Dr: Kristine Davis DO MAMMOGRAPHY - [...] Service support , CC: Kristine Davis DO Lead Data Architect: Signed 14-Sep-2016 Venous Duplex Lower Extremity Result: Comments: See Note; NOTES: [facility] Cardiovascular Services [address] [place] [address] Venous Duplex US, Unilateral 09/14/16 1558 MR#: [id number] Acct: [id number] Name: VIRGINIA YEH Rep #: [id number] : 1940 75 From: Johan Ortega MD [...] Date Dictated: 09/14/16 1558 Date Transcribed: 09/14/16 9684 Lead Data Architect: Signed 23-Aug-2016 Re-Evaluation - PT (1) Result: Comments: See Note; NOTES: [facility] [address] [facility] [place] [address] Fax REEVALUATION / MEDICARE RECERTI MATTHIAS Zamora 4d PHYSICAL THERAPY MR#: [id number] Acct: [id number] Name: VIRGINIA URRUTIA Rep #: [id number] : 1940 75 From: Humberto Aguilar DPT, OCS, CSCS Referring DrDav: OUT OF TOWN DOCTOR Status : REG RCR Insurance: [facility] Out of [facility] Doctor, It has been my pleasure [...] do not hesitate to contact me at [phone] by phone or if you have questions [...] - PT Result: Comments: See Note; NOTES: [facility] [address] [facility] [place] [address] Fax REHABILITATION SERVICES INITIAL EVALUATION MR#: [id number] Acct: [id number] Name: VIRGINIA URRUTIA Rep #: [id number] : 1940 75 From: Humberto Aguilar DPT, OCS, CSCS Referring : OUT OF TOWN DOCTOR Status: REG RCR Insurance: AE [facility] Patient's Visit Information VIRGINIA URRUTIA is a 75 year old F referred to Physical Therapy by Out [facility] Doctor with a diagnosis of [...] to be FAXED BACK to us at [phone] for Medica re purposes. Please let me know if there are questions or concerns regarding this plan of care. Physician Signature: Date: <Elec tronically signed by Humberto Aguilar DPT, OCS, CSCS> 07/29/16 5865 CC: Kristine Davis DO; OUT OF TOWN DOCTOR EBG Signed For Medicare only, by signing this I certify the pl an of care. Physicians Signature Date 19-Apr-2016 Emergency Department Summary Result: Comments: See Note; NOTES: [facility] Medical Records Department [address] [place] [address] Emergency Department Summary MR#: [id number] Acct: [id number] Name: VIRGINIA URRUTIA Rep #: [id number] : 1940 75 From: Byron Harris MD PCP: Kristine Davis DO Status: [facility] ER DATE OF SERVICE: 04/14/2016 METHOD [...] Angel Douglas C: Kristine Davis DO T: [facility] JOB: [id number] 04/19/16 1814 <Electronically signed by Byron Harris MD> Date Byron Harris MD Cosigner Signature (If Indicated): Date CC: Kristine Davis DO Date Dictated: 04/15/1634 Date Transcrib ed: 04/15/1634 Lead Data Architect: Signed 15-Apr-2016 Discharge Instruction Result: Comments: See Note; NOTES: [facility] Medical Records Department [address] [place] [address] Discharge Instruction 04/14/162306 MR#: [id number] Acct: [id number] Name: VIRGINIA URRUTIA Rep #: [id number] : 1940 75 From: Byron Harris MD [...] your Primary Care Provider. Call Doctors Registry ([phone]) or report to the closest Emergency Room. Call 911 if necessary. 04/15/16 0118 &#6 0;Electronically signed by Byron Harris MD> Date Byron Harris MD Cosigner Signature (If Indicated): Date CC: Kristine Davis DO 14-Apr-2016 Venous Duplex Imag/Limited/Uni Result: Comments: See Note; NOTES: [facility] Imaging Services [address] [place] [address] Verdana 4d Venous Duplex Imag/Limited/Uni MR#: [id number] Acct: [id number] Name: RHONA URRUTIA Rep #: [id number] : 1940 F 75 From: Doug Sinclair DO PCP: Kristine Davis DO Status: REG ER Study: Venous Duplex Imag/Limited/Uni Date of Exam: 04/14/16 Exam# [id number] Ordering Dr: Byron Harris MD STUDY: VENOUS [...] Doug Sinclair DO at 23:15 EST Tel [phone], Service support [phone], CC: Kristine Davis DO; Byron Harris MD Lead Data Architect: Signed 13-Apr-2016 Spine Lumbar (Routine) Result: Comments: See Note; NOTES: [facility] Imaging Services [address] [place] [address] Verdana 4d Spine Lumbar (Routine) MR#: [id number] Acct: [id number] Name: VIRGINIA URRUTIA p #: [id number] : 1940 F 75 From: Tiara Parsons MD PCP: Kristine Davis DO Status: REG CLI Study: Spine Lumbar (Routine) Date of Exam: 04/13/16 Exam# [id number] Ordering Dr: Kristine Davis DO STUDY: MRI [...] MD at 11:48 EST , Service support [phone], CC: Kristine Davis DO Lead Data Architect: Signed 12-Apr-2016 PT D/C Summary (1) Result: Comments: See Note; NOTES: [facility] [place] [address] Fax REHABILITATION SERVICES DISCHAR SUMMARY MR#: [id number] Acct: [id number] Name: VIRGINIA URRUTIA Rep #: [id number] : 1940 75 From: Humberto Aguilar DPT, OCS, CSCS Referring : Kristine Davis DO Status: REG RCR [facility] Summary It has been my pleasure to treat VIRGINIA URRUTIA under orders from Kristine Davis DO, for the diagnosis of R hip pain for a total of 12 visit(s). Discharge Date: Please see the [facility] information for a summary of their [...] help or hurt it. Will be in [place] in May and will have L TKA [...] please feel free to call me at [phone]. Thank yo sridevi for the referral of this patient. Sincerely, Humberto Aguilar DPT, OC <Electronically signed by Humberto Aguilar DPT, OCS, CSCS> 04/12/16 1621 CC: Kristine Davis DO EBG Signed 12-Apr-2016 Dexa Bone Density Study (HP) Result: Comments: See Note; NOTES: [facility] Imaging Services [address] [place] [address] Verdana 4d Dexa Bone Density Study () MR#: [id number] Acct: [id number] Name: ENE URRUTIA Rep #: [id number] : 1940 F 75 From: Dashawn Rowe MD PCP: Kristine Davis DO Status: REG CLI Study: Dexa Bone Density Study () Date of Exam: 04/12/16 Exam# [id number] Ordering Dr: Magallanes DO STUDY: DUAL ENERGY [...] Dashawn Rowe MD at 14:32 EST Tel [phone], Service support [phone], CC: Kristine Davis DO Lead Data Architect: Signed 10-Mar-2016 Inital Evaluation (1) - PT Result: Comments: See Note; NOTES: [facility] [address] [place] [address]. [address] [place] [id number] Fax REHABILITATION SERVICES INITIAL EVALUATION MR#: [id number] Acct: [id number] Name: VIRGINIA URRUTIA Rep #: [id number] : 1940 75 From: Jennifer Gongora DPT Referring DrDav: Kristine Davis DO Status: REG RCR [facility] VIRGINIA URRUTIA is [...] to be FAXED BACK to us at [phone] for Medicare purposes. Please let me know if there are questio ns or concerns regarding this plan of care. Physician Signature: Date: <Electronically signed by Jennifer Gongora DPT> 1243 CC: Kristine Davis DO ELR Signed For Medicare only, by signing this I certify the plan of care. Physicians Signature Date 17-Dec-2015 Echocardiogram Complete Result: Comments: See Note; NOTES: [facility] Cardiovascular Services [address] [place] [address] Echo Complete 12/17/15 1401 MR#: [id number] Acct: [id number] Name: VIRGINIA URRUTIA Rep #: [id number] : 1940 75 From: Chicho Bahena MD Attending Dr: Kristine Davis DO Status: REG CLI Ordering Dr: Kristine Davis DO Date: 12/17/15 Location: [facility] Sex: F C Admitted: Reason [...] Date Dictated: 12/17/15 1401 Date Transcribed: 12/17/151700 Lead Data Architect: Signed 11-Dec-2015 Bilat Scrn Digital AND CAD Result: Comments: See Note; NOTES: [facility] Imaging Services [address] [place] [address] Verdana 4d Bilat Scrn Digital AND CAD MR#: [id number] Acct: [id number] Name: VIRGINIA URRUTIA Rep #: [id number] : 1940 F 75 From: Dashawn Rowe MD PCP: Kristine Davis DO Status: REG CLI Study: Bilvictor m [place] Digital AND CAD Date of Exam: 12/11/15 Exam# [id number] Ordering Dr: Kristine Davis DO MAMMOGRAPHY - [...] delay biopsy of a clinically suspicious abnormality. [id number] Electronically Signed: Dashawn Rowe MD at 8:47 EDT Tel [phone], Service support [phone], CC: Kristine Davis DO Lead Data Architect: Signed 03-Jan-2015 Emergency Department Summary Result: Comments: See Note; NOTES: [facility] Medical Records Department [address] [place] [address] Emergency Department Summary MR#: [id number] Acct: [id number] Name: VIRGINIA URRUTIA Mook Rep #: [id number] : 1940 74 From: Ivette Cline PCP: [...] Davis DO T: [facility] JOB: [id number] 01/03/15 9587 <Electronically signed b angle Cline > Date Ivette Cline Cosigner Signature (If Indicated): Date CC: Kristine Davis DO Date Dictated: 12/27/141108 Date Transcribed: 12/27/141108 Lead Data Architect: Signed 27-Dec-2014 Discharge Instruction Result: Comments: See Note; NOTES: [facility] Medical Records Department [address] [place] [address] Discharge Instruction 12/27/14 1100 MR#: [id number] Acct: [id number] Name: VIRGINIA URRUTIA Rep #: [id number] : 1940 74 From: Ivette Cline PCP: [...] problems, contact your doctor. Call Doctors Registry ([phone]) or report to the closest Emergency Room. Call 911 if necessary. 12/27/141105 <Electronically signed by Ivette Cline > Date Ivette Cline Cosigner Signature (If Indicated): Date _ CC: Kristine Davis DO 27-Dec-2014 Spine Cervical without Contras Result: Comments: See Note; NOTES: [facility] Imaging Services [address] [place] [address] Verdana 4d Spine Cervical without Contras MR#: [id number] Acct: [id number] Na me: VIRGINIA URRUTIA Rep #: [id number] : 1940 F 74 From: Doug Sinclair DO PCP: Antwan DOKristine Status: REG ER Study: Spine Cervical without Contras Date of Exam: 12/27/14 Exam# [id number] Ordering Dr : Ivette Cline STUDY: CT [...] Doug Sinclair DO at 10:36 EDT Tel [phone], Service suppo rt [phone], CC: Ivette Cline; Kristine Davis DO Lead Data Architect: Signed 23-Dec-2014 Emergency Department Summary Result: Comments: See Note; NOTES: [facility] Medical Records Department [address] [place] [address] Emergency Department Summary MR#: [id number] Acct: [id number] Name: VIRGINIA URRUTIA Rep #: [id number] : 1940 74 From: Se Dawkins MD PCP: Kristine Davis DO Status: [facility] ER DATE OF SERVICE: 12/23/2014 CHIEF [...] acute. Se Dawkins MD T: [facility] JOB: [id number] 12/23/14799 <Electronically signed by Se Dawkins MD> Date Se Dawkins MD Cosigner Signature (If Indicated): Date CC: Kristine Davis DO Date Dictated: 12/23/14707 Date Transcribed: 12/23/14707 Lead Data Architect: Signed 23-Dec-2014 Discharge Instruction Result: Comments: See Note; NOTES: [facility] Medical Records Department [address] [place] [address] Discharge Instruction 12/23/14704 MR#: [id number] Acct: [id number] Name: VIRGINIA URRUTIA Rep #: [id number] : 1940 74 From: Se Dawkins MD [...] problems, contact your doctor. Call Doctors Registry ([phone]) or r aartirt to the closest Emergency Room. Call 911 if necessary. 12/23/14705 <Electronically signed by Se Dawkins MD> Date Se collins MD Cosigner Signature (If Indicated): Date CC: Kristine Davis DO 10-Dec-2014 ELECTROCARDIOGRAM, COMPLETE (ECG) (56113) Result: [MEASUREMENTS ANALYSIS] Date of Test: 12/10/2014 10:23:24; Heart Rate: 91; ME Interval: 144; QRS: 96; QT Interval: 372; Corrected QT Interval (QTc): 426; P Wave Spencer: 49; QRS Wave Spencer: 35; T Wave Spencer: 30; Blood Pressure: 0/0 [ECG DIAGNOSTIC STATEMENTS] Date of Test: 12/10/2014 10:23:24; Summary: Sinus Rhythm Low voltage in limb leads. ABNORMAL 22-Sep-2014 Abdomen/Pelvis WITH Contrast Result: Comments: See Note; NOTES: [facility] Imaging Services [address] [place] [address] CAT Scan Report MR#: [id number] Acct: [id number] Name: VIRGINIA URRUTIA Rep #: [id number] : 1940 F 73 From: Rey Rojo MD PCP: Kristine Davis DO Status: REG CLI Study: Abdomen/Pelvis WITH Contrast Date of Exam: 09/22/14 Exam# [id number] Ordering Dr: Kristine Davis DO STUDY : [...] Rojo MD at 16:58 EDT Te l [phone], Service support [phone], CC: Kristine Davis DO Lead Data Architect: Signed 31-Mar-2014 Transvaginal Non- Result: Comments: See Note; NOTES: [facility] Imaging Services [address] [place] [address] Ultrasound Report MR#: [id number] Acct: [id number] Name: VIRGINIA URRUTIA Rep #: [id number] : 1940 F 73 From: Dashawn Rowe MD PCP: Kristine Davis DO Status: REG CLI Study: Transvaginal Non- Date of Exam: 03/31/14 Exam# [id number] Ordering Dr: Kristine Davis DO STUD Y: [...] Dashawn Rowe MD at 13:55 EST Tel [phone], Service support [phone], F ax [phone] CC: Kristine Davis DO Lead Data Architect: Signed 31-Mar-2014 Pelvic (Non ) Result: Comments: See Note; NOTES: [facility] Imaging Services [address] [place] [address] Ultrasound Report MR#: [id number] Acct: [id number] Name: VIRGINIA URRUTIA Rep #: [id number] : 1940 F 73 From: Dashawn Rowe MD PCP: Kristine Davis DO Status: REG CLI Study: Pelvic (Non ) Date of Exam: 03/31/14 Exam# [id number] Ordering Dr: Kristine Davis DO STUDY: U [...] Dashawn Rowe MD at 13:55 EST Tel [phone], Service support [phone], Fax CC: Kristine Davis DO Lead Data Architect: Signed 22-Jan-2014 Bilvictor m Esparza Digital & CAD Result: Comments: See Note; NOTES: [facility] Imaging Services [address] [place] [address] Breast Imaging Report MR#: [id number] Acct: [id number] Name: VIRGINIA URRUTIA Rep #: [id number] : 1940 F 73 From: Dashawn Rowe MD PCP: Kristine Davis DO Status: REG CLI Exam# [id number] Ordering Dr: Kristine Davis DO MAMMOGRAPHY - [...] Dashawn Rowe MD at 14:49 EST Tel [phone], Ser vice support [phone], CC: Kristine Davis DO Lead Data Architect: Signed 07-Nov-2013 L/S Spine Min 4 Views Result: Comments: See Note; NOTES: [facility] Imaging Services [address] [place] [address] Radiology Report MR#: [id number] Acct: [id number] Name: VIRGINIA URRUTIA Rep #: [id number] : 1940 F 73 From: Tod Lamas MD PCP: Kristine Davis DO Status: REG CLI Study: L/S Spine Min 4 Views Date of Exam: 11/07/13 Exam# [id number] Ordering Dr: Kristine Davis DO STUDY: X-RA [...] at 18:52 EDT Tel , Service support [phone], CC: Kristine Davis DO Lead Data Architect: Signed 07-Nov-2013 Thoracic Spine 3 Views Result: Comments: See Note; NOTES: [facility] Imaging Services [address] [place] [address] Radiology Report MR#: [id number] Acct: [id number] Name: VIRGINIA URRUTIA Rep #: [id number] : 1940 F 73 From: Tod Lamas MD PCP: Kristine Davis DO Status: REG CLI Study: Thoracic Spine 3 Views Date of Exam: 11/07/13 Exam# [id number] Ordering Dr: Kristine Davis DO STUDY: X-R [...] age- appropriate degenerative patricia nges. Electronically Signed: Tdo Lamas MD at 17:07 EDT Tel , Service support [phone], CC: Kristine Davis DO Lead Data Architect: Signed 05-Nov-2013 Abdomen/Pelvis without Cont Result: Comments: See Note; NOTES: [facility] Imaging Services [address] [place] [address] CAT Scan Report MR#: [id number] Acct: [id number] Name: VIRGINIA URRUTIA Rep #: [id number] : 1940 F 73 From: Dashawn Rowe MD PCP: Kristine Davis DO Status: REG CLI Study: Abdomen/Pelvis without Cont Date of Exam: 11/05/13 Exam# [id number] Ordering Dr: Kristine Davis DO STUD Y: [...] Dashawn Rowe MD at 15:39 EDT Tel [phone], Service supp ort [phone], CC: Kristine Davis DO Lead Data Architect: Signed 07-Oct-2013 Kidney and Bladder Result: Comments: See Note; NOTES: [facility] Imaging Services [address] [place] [address] Ultrasound Report MR#: [id number] Acct: [id number] Name: VIRGINIA URRUTIA Rep #: [id number] : 1940 F 72 From: Brook Cummings DO PCP: Kristine Davis DO Status: REG CLI Study: Kidney and Bladder Date of Exam: 10/07/13 Exam# [id number] Ordering Dr: Aquiles Potts STUDY: RENAL ULTRAS [...] at 23:16 EDT Tel , Service support [phone], CC: Aquiles Potts; Kristine Davis DO Lead Data Architect: Signed Immunization Name Dates Details Influenza (3 years and up) on: 17-Dec-2008 Comments: Lot #:[id number] date:mount given:0.5mlRoute: IMSite given:left deltoidGiven by: AYAD [...] 0.00 cm Results Date Description Value Details 30-Yjk-283765:12 ANGTENSIN 1-CONVRT ENZYM Comments: PATIENT NOT FASTINGPERFORMED BY: [employer] [id number] BY: [employer] [id number] ([address]) YOSEF 30 U/L (Normal) Range: 14-82 83-Bsu-928306:12 CCP ANTIBODY (72542) Comments: PATIENT NOT FASTINGPERFORMED BY: [employer] [facility] [id number] BY: [employer] [facility] [id number] CCP Antibodies IgG/IgA 8 {units} (Normal) Range: 0-19 Comments: Negative <20 Weak positive 20 - 39 Moderate positive 40 - 59 Strong positive >59 67-Xsm-084462:12 CAROL (ANTINUCLEAR ANTIBODY) Comments: PATIENT NOT FASTINGPERFORMED BY: [address] [id number] BY: [address] [id number] ([address]694) CAROL Direct Negative (Normal) 41-Lrs-619437:12 RHEUMATOID FACTOR-QUANT Comments: PATIENT NOT FASTINGPERFORMED BY: [address] [id number] BY: [address] [id number] (11698) RA Latex Turbid. <10.0 {IU/mL} (Normal) Range: 0.0-13.9 24-Dry-451992:12 SED RATE ERYTHROCYTE Comments: PATIENT NOT FASTINGPERFORMED BY: [address] [id number] BY: [address] [id number] (02402) Sedimentation Rate-Westergren 15 mm/h (Normal) Range: 0-40 34-Hpq-292550:12 C-REACTIVE PROTEIN Comments: PATIENT NOT FASTINGPERFORMED BY: [address] [id number] BY: [address] [id number] (39887) C-Reactive Protein, Quant 2.9 mg/L (Normal) Range: 0.0-4.9 46-Ayu-887076:12 CBC, PLATELETS & AUT DIFF Comments: PATIENT NOT FASTINGPERFORMED BY: [address] [id number] BY: [address] [id number] (44407) Immature Grans (Abs) 0.0 {x10E3/uL} (Normal) Range: [...] 3.77-5.28 WBC 7.8 {x10E3/uL} (Normal) Range: 3.4-10.8 28-Twy-636894:12 VITAMIN B-12 Comments: PATIENT NOT FASTINGPERFORMED BY: [facility] Lvtgls6862 [facility] [id number] BY: [facility] [id number] (CYANOCOBALAMIN) (84470) Vitamin B12 579 pg/mL (Normal) Range: 232-1245 95-Qvj-80337:31 LIPID PANEL (48632) Comments: PATIENT WAS FASTINGPERFORMED BY: [facility] LabsOverlook Medical CenterHakshb3282 [facility] [id number]; appt 01/02 LDL/HDL Ratio 1.9 {ratio} (Normal) [...] be changing to: Male Female 40 - 633709 50 - 212339 Triglycerides 145 mg/dL (Normal) Range: 0-149 Cholesterol, Total 240 mg/dL (Abnormal) Range: 100-199 36-Vit-69346:31 METABOLIC PANEL, COMPREHENSIVE Comments: PATIENT WAS FASTINGPERFORMED BY: LabCoOverlook Medical CenterZxawsy4120 [facility] [id number] (10503) ALT (SGPT) 16 [iU]/L (Normal) Range: 0-32 [...] 8-27 Glucose 98 mg/dL (Normal) Range: 65-99 01-Kwc-490028:13 METABOLIC PANEL, BASIC Comments: PATIENT NOT FASTINGPERFORMED BY: [facility]6370 [facility] [id number]; review on 01/02 (80337) Calcium 9.9 mg/dL (Normal) Range: 8.7-10.3 Carbon [...] 8-27 Glucose 98 mg/dL (Normal) Range: 65-99 27-Mrt-586225:38 GGT (Gamma Glutamyl Comments: PATIENT NOT FASTINGPERFORMED BY: [facility] [id number] Transferase) (31533) GGT 20 [iU]/L (Normal) Range: 0-60 21-Fiy-046971:38 Alkaline Phosphatase (17700) Comments: PATIENT NOT FASTINGPERFORMED BY: [address] [id number] Alkaline Phosphatase 131 [iU]/L (Abnormal) Range: 39-117 05-Rqg-336304:38 THYROXINE FREE (90862) Comments: PATIENT NOT FASTINGPERFORMED BY: [address] [id number] T4,Free(Direct) 1.92 ng/dL (Abnormal) Range: 0.82-1.77 86-Nta-137564:38 FREE TRIDOTHYRONINE (T3) (60155) Comments: PATIENT NOT FASTINGPERFORMED BY: [address] [place] [id number] Triiodothyronine,Free,Serum 2.4 pg/mL (Normal) Range: 2.0-4.4 18-Faf-980322:38 VITAMIN B-12 (CYANOCOBALAMIN) Comments: PATIENT NOT FASTINGPERFORMED BY: [facility] Mvoayp5117 [facility] [place] [id number] (59490) Vitamin B12 665 pg/mL (Normal) Range: 232-1245 92-Cby-47996:06 VITAMIN B-12 (CYANOCOBALAMIN) Comments: PATIENT NOT FASTINGPERFORMED BY: [facility] Tzbzuu7788 [facility] [place] [id number] (07028) Vitamin B12 1301 pg/mL (Abnormal) Range: 232-1245 9-Dkh-232393:25 Metabolic Panel, Comprehensive Comments: PATIENT NOT FASTINGPERFORMED BY: [facility]6370 [facility] [id number]; review on 08/28 (26487) ALT (SGPT) 10 [iU]/L (Normal) Range: 0-32 [...] 8-27 Glucose 84 mg/dL (Normal) Range: 65-99 3-Wqy-330281:25 CBC WITH MANUAL DIFF (65483) Comments: PATIENT NOT FASTINGPERFORMED BY: [facility] Ihdymz5439 [facility] [id number] Immature Grans (Abs) 0.0 {x10E3/uL} (Normal) Range: [...] PANEL, COMPREHENSIVE Comments: PATIENT NOT FASTINGPERFORMED BY: [facility] Tgjfuw9887 [facility] [id number] (92437) ALT (SGPT) 10 [iU]/L (Normal) Range: 0-32 [...] 88 mg/dL (Normal) Range: 65-99 :46 TSH (63393) Comments: 6 weeks; PATIENT NOT FASTINGPERFORMED BY: [facility] [employer] Labs Fkrmme8474 Oliva [facility] [id number] TSH 2.420 {uIU/mL} (Normal) Range: 0.450-4.500 :23 LIPID PANEL (41308) Comments: PATIENT WAS FASTINGPERFORMED BY: Open Kernel LabsOverlook Medical CenterKuxqtd4097 [facility] [id number] LDL/HDL Ratio 1.6 {ratio_units} (Normal) Range: 0.0-3.2 [...] PANEL, COMPREHENSIVE Comments: PATIENT WAS FASTINGPERFORMED BY: [employer] Huyzui8847 [facility] [id number] (46846) ALT (SGPT) 15 [iU]/L (Normal) Range: 0-32 [...] Glucose, Serum 96 mg/dL (Normal) Range: 65-99 22-Mka-00797:23 CBC W/AUTO DIFF WBC (26570) Comments: PATIENT WAS FASTINGPERFORMED BY: [facility] Yymwjs3177 [facility] [id number] Immature Grans (Abs) 0.0 {x10E3/uL} (Normal) Range: [...] (Normal) Range: 3.4-10.8 :23 Vitamin D Hydroxy (09164) Comments: PATIENT WAS FASTINGPERFORMED BY: [facility] Eplxol9437 [facility]iva [facility] [place] [id number] Vitamin D, 25-Hydroxy 41.5 ng/mL (Normal) Range: 30.0-100.0 Comments: Vitamin D deficiency has been defined by the [place] ofR[facility] Institutecine and an Endocrine Society practice guideline as alevel of serum 25-OH vitamin D less than 20 ng/mL (1,2).The Endocrine Society went on to further define vitamin Dinsufficiency as a level between 21 and 29 ng/mL (2).1. IOM (Lawrence of Medicine). 2010. Dietary reference intakes for calcium and D. [place]: The National AcademVideoNot.es Press.2. Seng MF, Theresa ROMERO, Kieran KOWALSKI, et al. Evaluation, treatment, and prevention of vitamin D deficiency: an Endocrine Society clinical practice guideline. JCEM. 2010; 96(7):1911-30. :23 TSH (12488) Comments: PATIENT WAS FASTINGPERFORMED BY: [facility]Co Blkncr8095 Oliva [facility] HospitalD[facility] [place] [id number] TSH 0.429 {uIU/mL} (Abnormal) Range: 0.450-4.500 :23 VITAMIN B-12 (CYANOCOBALAMIN) Comments: PATIENT WAS FASTINGPERFORMED BY: [facility] Xwsmxa5174 [facility] [id number] (25960) Vitamin B12 553 pg/mL (Normal) Range: 211-946 6-Keu-708191:52 CBC, PLATELETS & MANUAL DIFF Comments: PATIENT NOT FASTINGPERFORMED BY: [facility] Fygljj7087 [facility]iva [facility] [place] [id number] (40912) Immature Grans (Abs) 0.0 {x10E3/uL} (Normal) Range: [...] 3.4-10.8 :09 Basic Metabolic Profile (BMP) Comments: [facility] Eclrzbrvsg7377 [address] [place], [place], [id number] GAP 9 (Normal) Range: 5-15 CO2 29.0 [...] :09 CBC-Complete Blood Cnt No Diff Comments: [facility] Xbhcuhxxuk9362 [address] [place], [place], [id number] MPV 9.1 fL (Normal) Range: 6.2-12.0 PLT [...] 5.7 K/mm3 (Normal) Range: 4.4-11.0 :53 Magnesium (34727) Comments: PATIENT NOT FASTINGPERFORMED BY: [employer] [facility] Rhhovc6084 [facility] [id number] Magnesium, Serum 1.9 mg/dL (Normal) Range: 1.6-2.3 :53 METABOLIC PANEL, COMPREHENSIVE Comments: PATIENT NOT FASTINGPERFORMED BY: [employer] [facility] Vzqomw1740 [facility] [id number]; non- emergent till apt (42501) ALT (SGPT) 18 [iU]/L (Normal) Range: 0-32 [...] Glucose, Serum 83 mg/dL (Normal) Range: 65-99 07-Zww-49304:53 TSH (43095) Comments: PATIENT NOT FASTINGPERFORMED BY: [employer] Xogezo8014 [facility]Former[facility] [id number] TSH 1.810 {uIU/mL} (Normal) Range: 0.450-4.500 31-Lvh-739253:15 Vitamin D Hydroxy (21462) Comments: PATIENT NOT FASTINGPERFORMED BY: [employer] [facility] Irogga9344 [facility]Former[facility] [id number] Vitamin D, 25-Hydroxy 28.3 ng/mL (Abnormal) Range: 30.0-100.0 Comments: Vitamin D deficiency has been defined by the [place] ofMedicine and an Endocrine Society practice guideline as alevel of serum 25-OH vitamin D less than 20 ng/mL (1,2).The Endocrine Society went on to further define vitamin Dinsufficiency as a level between 21 and 29 ng/mL (2).1. IOM (Lawrence of Medicine). 2010. Dietary reference intakes for calcium and D. [place]: The National Academies Press.2. Seng MF, Theresa ROMERO, Kieran KOWALSKI, et al. Evaluation, treatment, and prevention of vitamin D deficiency: an Endocrine Society clinical practice guideline. JCEM. 2010; 96(7):1911-30. 39-Xtv-112530:15 VITAMIN B-12 (CYANOCOBALAMIN) Comments: PATIENT NOT FASTINGPERFORMED BY: [employer] Hphhmw1987 Oliva [facility] [id number] (42395) Vitamin B12 447 pg/mL (Normal) Range: 211-946 14-Wsv-955090:15 CBC W/AUTO DIFF WBC Comments: PATIENT NOT FASTINGPERFORMED BY: [facility] Tayssc5840 [facility] [id number] Information: SRC:ALONZO (25328) Immature Grans (Abs) 0.0 {x10E3/uL} (Normal) Range: [...] 3.77-5.28 WBC 5.6 {x10E3/uL} (Normal) Range: 3.4-10.8 06-Ebr-607718:15 METABOLIC PANEL, COMPREHENSIVE Comments: PATIENT NOT FASTINGPERFORMED BY: [facility] Erwqzi1453 [facility] [id number] (35357) ALT (SGPT) 13 [iU]/L (Normal) Range: 0-32 [...] Glucose, Serum 87 mg/dL (Normal) Range: 65-99 18-Tit-463926:50 Urinalysis, Office (94932) UA - LEUKOCYTE ESTERASE Trace (Normal) UA - NITRITE Negative (Normal) URINE UROBILINGN TUNDE TIMED Normal mg/dL (Normal) UA - PROTEIN Negative mg/dL (Normal) UA - PH 5 (Abnormal) UA - BLOOD Negative (Normal) UA - SPECIFIC GRAVITY 1.025 (Normal) UA - KETONES Negative mg/dL (Normal) UA - BILIRUBIN Negative (Normal) UA - GLUCOSE Negative (Normal) 13-Yzr-445253:15 URINE CESAR CULTURE (TUNDE COL Comments: PATIENT NOT FASTINGPERFORMED BY: [facility] [id number] COUNT) (22145) Result 1 MUG (Normal) Comments: Mixed urogenital floraGreater than 100,000 colony forming units per mL Urine Culture,Comprehensive Final report (Normal) 56-Kbl-836945:29 URINE CESAR CULTURE-IDENTIFICATN Comments: PATIENT NOT FASTINGPERFORMED BY: [employer] NoteVaultKindred Hospital [id number] Information: [id number] (37356) Result 1 MUG (Normal) Comments: Mixed urogenital flora1,000 Colonies/mL Urine Culture,Comprehensive Final report (Normal) 75-Hre-505444:29 URINE CESAR CULTURE-TUNDE COL Comments: PATIENT NOT FASTINGPERFORMED BY: [employer] [facility] [id number] Information: SRC:[facility] [id number] COUNT (54083) Result 1 MUG (Normal) Comments: Mixed urogenital flora25,000-50,000 colony forming units per mL Urine Final report (Normal) Culture,Comprehensive 74-Sid-686338:07 Urinalysis, Office (55080) UA - LEUKOCYTE ESTERASE Small (Normal) UA - NITRITE Negative (Normal) URINE UROBILINGN TUNDE TIMED Normal mg/dL (Normal) UA - PROTEIN Negative mg/dL (Normal) UA - PH 5 (Abnormal) UA - BLOOD Hemolyzed Trace (Normal) UA - SPECIFIC GRAVITY 1.015 (Normal) UA - KETONES Negative mg/dL (Normal) UA - BILIRUBIN Negative (Normal) UA - GLUCOSE Negative (Normal) 2-Zha-144553:02 URINE ECSAR CULTURE (TUNDE Comments: PATIENT NOT FASTINGPERFORMED BY: Open Kernel LabsOverlook Medical CenterNaaedr4720 [facility] [id number] Information: SRC:[facility] [id number] COL COUNT) (86420) Result 1 NG36 (Normal) Comments: No growth in 36 - 48 hours. Urine Culture,Comprehensive Final report (Normal) 17-Sep-20149:51 CBC With Differential/Platelet Comments: PATIENT NOT FASTINGPERFORMED BY: Open Kernel LabsOverlook Medical CenterMgaakx4758 [facility] [id number] Information: [id number] Immature Grans (Abs) 0.0 {x10E3/uL} (Normal) Range: [...] Panel (14) Comments: PATIENT NOT FASTINGPERFORMED BY: LabCoOverlook Medical CenterJfmqaw7815 [facility] [id number] ALT (SGPT) 11 [iU]/L (Normal) Range: 0-32 [...] (Normal) Range: 65-99 :13 SED RATE ERYTHROCYTE (83883) Comments: PATIENT WAS FASTINGPERFORMED BY: Syntarga6370 [facility] [id number] Sedimentation Rate-Westergren 6 mm/h (Normal) Range: 0-40 :13 C-REACTIVE PROTEIN (20931) Comments: PATIENT WAS FASTINGPERFORMED BY: Open Kernel LabsOverlook Medical CenterYtrrzw0793 [facility] [id number] C-Reactive Protein, Quant 2.2 mg/L (Normal) Range: 0.0-4.9 :13 CBC W/AUTO DIFF WBC Comments: PATIENT WAS FASTINGPERFORMED BY: [employer] Tfptie4871 [facility] [id number] Information: [id number] (77190) Immature Grans (Abs) 0.0 {x10E3/uL} (Normal) Range: [...] 4.6 {x10E3/uL} (Normal) Range: 3.4-10.8 :13 TSH (92069) Comments: PATIENT WAS FASTINGPERFORMED BY: [employer] [facility] [id number] TSH 0.584 {uIU/mL} (Normal) Range: 0.450-4.500 55-Iqn-983647:42 Urinalysis, Office (71217) UA - LEUKOCYTE ESTERASE Small (Normal) UA - NITRITE Negative (Normal) URINE UROBILINGN TUNDE TIMED Normal mg/dL (Normal) UA - PROTEIN Negative mg/dL (Normal) UA - PH 6 (Abnormal) UA - BLOOD Negative (Normal) UA - SPECIFIC GRAVITY 1.025 (Normal) UA - KETONES Negative mg/dL (Normal) UA - BILIRUBIN Negative (Normal) UA - GLUCOSE Negative (Normal) 73-Kmz-533276:43 URINE CESAR CULTURE (TUNDE Comments: PATIENT NOT FASTINGPERFORMED BY: [employer] [facility] [id number] Information: SRC:UR [id number] COL COUNT) (82080) Result 1 MUG (Normal) Comments: Mixed urogenital flora25,000-50,000 colony forming units per mL Urine Final report (Normal) Culture,Comprehensive :13 Vitamin D Hydroxy (49245) Comments: PATIENT WAS FASTINGPERFORMED BY: [employer] [facility] [id number] Vitamin D, 25-Hydroxy 38.7 ng/mL (Normal) Range: 30.0-100.0 Comments: Vitamin D deficiency has been defined by the [place] ofMedicine and an Endocrine Society practice guideline as alevel of serum 25-OH vitamin D less than 20 ng/mL (1,2).The Endocrine Society went on to further define vitamin Dinsufficiency as a level between 21 and 29 ng/mL (2).1. IOM ([place] of Medicine). 2010. Dietary reference intakes for calcium and D. [place]: The National Academies Press.2. Seng MF, Theresa ROMERO, Kieran KOWALSKI, et al. Evaluation, treatment, and prevention of vitamin D deficiency: an Endocrine Society clinical practice guideline. JCEM. 2010; 96(7):1911-30. :13 LIPID PANEL (23203) Comments: PATIENT WAS FASTINGPERFORMED BY: Syn[employer]a6370 [employer] [facility] [id number] LDL/HDL Ratio 1.8 {ratio_units} (Normal) Range: 0.0-3.2 [...] PANEL, COMPREHENSIVE Comments: PATIENT WAS FASTINGPERFORMED BY: Syn[employer]arga6370 [employer] [facility] [id number] (53050) ALT (SGPT) 14 [iU]/L (Normal) Range: 0-32 [...] Glucose, Serum 86 mg/dL (Normal) Range: 65-99 69-Ujj-81594:13 VITAMIN B-12 (CYANOCOBALAMIN) Comments: PATIENT WAS FASTINGPERFORMED BY: TuneStarsOverlook Medical CenterJglnpt9823 [facility] [id number] (79956) Vitamin B12 >1999 pg/mL (Abnormal) Range: 211-946 38-Ujm-068158:00 Metabolic Panel, Basic Comments: 6 weeks; PATIENT NOT FASTINGPERFORMED BY: TuneStarsOverlook Medical CenterJwphok0919 [facility] [id number] Information: [id number] (70587) Calcium, Serum 9.7 mg/dL (Normal) Range: 8.6-10.2 [...] Glucose, Serum 90 mg/dL (Normal) Range: 65-99 66-Nyk-146922:24 URINE CESAR CULTURE-IDENTIFICATN Comments: PATIENT NOT FASTINGPERFORMED BY: [place] 0685170 [facility] [id number] Information: [id number] (52117) Result 1 ENTEGA (Abnormal) Comments: Enterococcus rhitmcccwa54,000-25,000 colony forming units per mLNote: For enterococci with intrinsic intermediate-level resistance tovancomycin, such as E. casseliflavus and E. gallinarum, VRE infection control measures are not applicable, per the CLSI (formerly NCCLS).For Enterococcus species, cephalosporins, aminoglycosides (except forhigh-level resistance screening), clindamycin, and trimethoprim-curtis lfamethoxazole are not effective clinically. Fluoroquinolones areused primarily for treating urinary tract infections. (CLSI, X038-L41,2009) S = Susceptible; I = Intermediate; R = Resistant * P = Positive; N = Negative MICS are expressed in micrograms per mL Antibiotic RSLT#1 RSLT#2 RSLT#3 RSLT#4Ciprofloxacin SGentami lien 500 SLevofloxacin SNitrofurantoin IPenicillin SStreptomycin 2000 STetracycline SVancomycin R Urine Final report (Abnormal) Culture,Comprehensive 98-Zai-101833:51 METABOLIC PANEL, Comments: PATIENT NOT FASTINGPERFORMED BY: [facility]6370 [facility] [id number] Information: [id number] COMPREHENSIVE (56821) ALT (SGPT) 20 [iU]/L (Normal) Range: 0-32 [...] Glucose, Serum 80 mg/dL (Normal) Range: 65-99 71-Tbu-994008:04 Microscopic Examination Comments: PATIENT NOT FASTINGPERFORMED BY: [employer]70 GipisFormerly [facility] [id number] Bacteria Few (Normal) Mucus Threads Present (Normal) Epithelial Cells (non renal) 0-10 {/hpf} (Normal) Range: 0 - 10 RBC None seen {/hpf} (Normal) Range: 0 - 2 WBC None seen {/hpf} (Normal) Range: 0 - 5 32-Obc-335499:04 URINE CESAR CULTURE (TUNDE COL Comments: PATIENT NOT FASTINGPERFORMED BY: Syn[employer]arga6370 [facility]Former[facility] [id number] COUNT) (63540) Antimicrobial MIHEAD (Normal) Comments: S = Susceptible; [...] mL (Abnormal) Urine Final report Culture,Comprehensive (Abnormal) 53-Bqh-437553:04 URINALYSIS, W/ MICRO Comments: PATIENT NOT FASTINGPERFORMED BY: [facility]6370 [facility] [id number] Information: SRC: [id number] (97958) Microscopic Examination See below: (Normal) Comments: Microscopic was indicated and was performed. Microscopic Examination MICRON (Normal) Comments: Microscopic follows if indicated. Nitrite, Urine Negative (Normal) Bilirubin Negative (Normal) Urobilinogen,Semi-Qn 0.2 mg/dL (Normal) Range: 0.0-1.9 Ketones Negative (Normal) Occult Blood Negative (Normal) Glucose Negative (Normal) Protein Negative (Normal) WBC Esterase Negative (Normal) Appearance Clear (Normal) Urine-Color Yellow (Normal) pH 6.0 (Normal) Range: 5.0-7.5 Specific [place] 1.010 (Normal) Range: 1.005-1.030 81-Bww-129073:00 METABOLIC PANEL, Comments: PATIENT NOT FASTINGPERFORMED BY: [facility]6370 [facility] [id number] Information: [id number] COMPREHENSIVE (14551) ALT (SGPT) 11 [iU]/L (Normal) Range: 0-32 [...] Glucose, Serum 84 mg/dL (Normal) Range: 65-99 77-Lqa-78225:26 CMP Comments: will review at 11/05 appt [...] CHOL 200 mg/dL (Normal) Comments: <200 mg/dL Wqzarmwxs759-870 mg/dL Borderline>240 mg/dL High Risk :26 TSH 1.85 {uIU/mL} (Normal) Range: 0.358-3.74 :26 VITD 72.9 mg/mL (Normal) Comments: will review at - appt Comments: Vitamin D 25(OH) Status RangeDeficiency <20 ng/mL (50nmol/L)Insuffciency 20 - 30 ng/mL (50 - 75 nmol/L)Sufficiency 30 - 100 ng/mL (75 - 250 nmol/L)Toxicity >100 ng/mL (>250 nmol/L) 7-Bja-491717:05 Urinalysis, Office (45747) UA - LEUKOCYTE ESTERASE Negative (Normal) UA - NITRITE Negative (Normal) URINE UROBILINGN TUNDE TIMED 2 mg/dL (Normal) UA - PROTEIN 30 mg/dL (Normal) UA - PH 6.0 (Normal) Comments: 5.5 UA - BLOOD Negative (Normal) UA - SPECIFIC GRAVITY 1.030 (Abnormal) UA - KETONES Small mg/dL (Normal) UA - BILIRUBIN Negative (Normal) UA - GLUCOSE Negative (Normal) 7-Xwr-180711:33 URINE CESAR CULTURE-TUNDE COL Comments: PERFORMED BY: LabCoOverlook Medical CenterFcxkvi0934 [facility] [id number] COUNT (66039) Result 1 MUG (Normal) Comments: Mixed urogenital flora10,000-25,000 colony forming units per mL Urine Final report (Normal) Culture,Comprehensive 73-Nks-880215:52 URINE CESAR CULTURE-TUNDE COL Comments: PATIENT NOT FASTINGPERFORMED BY: LISBETH [facility] Kvnmom6079 [place] [id number] Information: SRC:UR [id number] COUNT (47757) Antimicrobial MIHEAD (Normal) Comments: S = Susceptible; [...] CHOL 203 mg/dL (Abnormal) Comments: <200 mg/dL Cagujbtmv271-221 mg/dL Borderline>240 mg/dL High Risk :47 TSH 1.52 {uIU/mL} (Normal) Range: 0.358-3.74 :47 VITD 59.3 mg/mL (Normal) Comments: Vitamin D 25(OH) Status RangeDeficiency <20 ng/mL (50nmol/L)Insuffciency 20 - 30 ng/mL (50 - 75 nmol/L)Sufficiency 30 - 100 ng/mL (75 - 250 nmol/L)Toxicity >100 ng/mL (>250 nmol/L) :44 CBC, PLATELETS & AUT DIFF Comments: PATIENT NOT FASTINGPERFORMED BY: LabCoOverlook Medical CenterTfcpbw0574 [facility] [id number] Information: [id number] (40243) Immature Grans (Abs) 0.0 {x10E3/uL} (Normal) Range: [...] (Normal) Range: 3.4-10.8 :44 FOLIC ACID SERUM (44177) Comments: PATIENT NOT FASTINGPERFORMED BY: [employer] K[employer] LabsOverlook Medical CenterAgmrud1032 [facility] [id number] Folate (Folic Acid), Serum 14.4 ng/mL (Normal) Comments: A serum folate concentration of less than 3.1 ng/mL isconsidered to represent clinical deficiency. :44 RETICULOCYTE COUNT MANUL Comments: PATIENT NOT FASTINGPERFORMED BY: [facility] SoftwareCar[facility] Center6370 [facility] [id number] (69713) Reticulocyte Count 1.1 % (Normal) Range: 0.6-2.6 :44 LDH (LD) (LACTATE DEHYDROGENASE) Comments: PATIENT NOT FASTINGPERFORMED BY: [facility] Software[facility] Center6370 [facility] [id number] (80342) LDH 250 [iU]/L (Abnormal) Range: 0-214 :44 IRON BINDING CAPACITY (TIBC) Comments: PATIENT NOT FASTINGPERFORMED BY: [facility]6370 [facility] [id number] (61048) Iron Saturation 16 % (Normal) Range: 15-55 Iron, Serum 52 ug/dL (Normal) Range: 35-155 UIBC 270 ug/dL (Normal) Range: 150-375 Iron Bind.Cap.(TIBC) 322 ug/dL (Normal) Range: 250-450 :44 FERRITIN (28780) Comments: PATIENT NOT FASTINGPERFORMED BY: LabCoOverlook Medical CenterAwwltr9729 [facility] [id number] Ferritin, Serum 42 ng/mL (Normal) Range: 15-150 [...] 17-Aug-20129:50 TSH 1.02 {uIU/mL} (Normal) Range: 0.358-3.74 87-Nkg-358660:02 BILAT SCRN DIGITAL & CAD Radiology Report [...] Rowe M.D.July 23, 2012 at 2:35:49 PM [id number] Signed GP/GP If you are the referring physicia n and would like to consult with theradiologist who provided this interpretation, please contact Ofelia Rodriguez at [phone]. If this radiologist is unavailable, youwill be directed to [facility] radiologist to assist. If you are a patient with a question regarding this report, pleasecontactyour referring physician directly. Professional Interpretation Provided By: [employer], Phone , These documents contain legally protected [...] 3 1439 Sign by: Dashawn Rowe MD 2-Gll-754456:59 KIDNEY Radiology Report See Note (Normal) Comments: [...] Welsh M.D.July 11, 2012 at 5:00:06 PM [id number] Signed TT/TT If you are the referring physician and would like to consult with theradiologist who provided this interpretation, please contact Brittney Mccormack M.D. at [phone]. If this radiologist is unavailable, youwillbe directed to another radiologist to assist. If you are a patient with a question regarding this report, pleasecontactyour referring physician directly. Professional Interpretat ion Provided By: [employer], Phone , These documents contain legally protected and confidential healthinformation intended only for the use of the individual or entity [facility]. If you are not the intended [...] Brittney Welsh MD on 07/11/121825 Sign by: Blaise CARRANZA,Brittney 9-Jdr-744576:59 TRANSVAGINAL NON- Radiology Report See Note (Normal) [...] Welsh M.D.July 11, 2012 at 4:45:28 PM [id number] Signed TT/TT If you are the referring physician and would like to consult with sebastian dunlap who provided this interpretation, please contact Brittney Mccormack M.D. at [phone]. If this radiologist is unavailable, youwillbe directed to another radiologist to assist. If you are a p atient with a question regarding this report, pleasecontactyour referring physician directly. Professional Interpretation Provided By: [employer], Phone , These documents contain legally protected [...] CHOL 210 mg/dL (Abnormal) Comments: <200 mg/dL Lqihhufcd793-814 mg/dL Borderline>240 mg/dL High Risk :44 MG [...] to well characterize low-attenuation left renal lesion,probably school admissions representative of a cyst. Consider follow-up renal sonographyforfurther evaluation as clinically warranted. Signed:Matilda AvilesJuly 04, 2012 at 5:12:21 PM [id number] Signed DL/DL If you are the referring physician and would like to consult with theradiologist who provided this interpretation, please contact Ofelia Kyle at [phone]. If this radiologist is unavailable, youwillbe directed to another radiologist to assist. If you are a patient with a question regarding this report, pleasecontactyo ur referring physician directly. Professional Interpretation Provided By: [employer], Phone , These documents contain legally protected [...] on 07/04/121714 Sign by: Salinas Champion MD 03-Fsa-072008:18 CRE GFRAA 41 mL/min (Abnormal) GFR 34 mL/min (Abnormal) CREAT 1.6 mg/dL (Abnormal) Range: 0.6-1.0 91-Zst-242347:15 BMP GAP 7 (Normal) Range: 5-15 CO2 [...] 7-18 GLU 80 mg/dL (Normal) Range: 70-110 18-Sny-000716:15 TSH 3.05 {uIU/mL} (Normal) Range: 0.358-3.74 :22 B12 577 pg/mL (Normal) Range: 211-946 Comments: Performed at: - Lab[address] [id number] Director: Patito Segovia MD, Phone: [phone] :[phone] CBCMD RBCM NORM C+C {NORMAL} (Normal) [...] D deficiency has been defined by the [place] ofMedicine and an Endocrine Society practice guideline as alevel of serum 25-OH vitamin D less than 20 ng/mL (1,2).The Endocrine Society went on to further define vitamin Dinsufficiency as a level between 21 and 29 ng/mL (2).1. IOM ([place] of Medicine). 2010. Dietary reference intakes for calcium and D. [place]: The National AcademVideoNot.es Press.2. Seng MF, Theresa ROMERO, Kieran KOWALSKI, et al. Evaluation, treatment, and prevention of vitamin D deficiency: an Endocrine Society clinical practice guideline. JCEM. 2010; 96(7):1911-30. 21-Yno-422282:37 BREAST UNILATERAL Radiology Report See Note (Normal) [...] Category 3: Probably Benign Finding - Initial Ywsoj-CxlcsluoUcqobm-hk Suggested. Signed:Dashawn Rowe M.D.November 09, 2011 at 2:49:17 PM [phone] Signed GP/GP If you are the referring physician and would like to consult with theradiologist who provided this interpretation, please contact Herb blake M.D. at [phone]. If this radiologist is unavailable, youwill be [...] 11/09/11 1456 Sign by: Dashawn Rowe MD 04-Mry-230415:47 BREAST UNILATERAL Radiology Report See Note (Normal) [...] Category 3: Probably Benign Finding - Initial Ffxof-NczxalihPmwivv-ey Suggested. To consult with a radiologist regarding this report, please call our 64N1xeqzbat line @ Dictated on 06/22/11 1428 by Wendy Rowe MD on 06/22/11 1547 by ITS IMPORTSign by Dashawn Rowe MD on 06/22/11 1548 Sign by: ___ Dashawn Rowe MD 93-Ylq-957789:47 UNILAT LT DIAG DIGITAL & CAD Radiology [...] radiologist regarding this report, please call our 01V3eyqjatr line @ Dictated on 06/22/11 1357 by Wendy Rowe MD on 1450 by ITS IMPORTSign by Dashawn Rowe MD on 06/22/11 1451 Sign by: Dashawn Rowe MD 2-Xpm-968767:14 CERV SPINE,MIN 4 VIEWS Radiology Report See [...] radiologist regarding this report, please call our 67X2awqvbug line @ Dictated on 04/13/11 1408 by [...] or = 500 mg/dL :38 V[place], [address] 47.8 ng/mL (Normal) Range: 30.0-100.0 Comments: Vitamin D deficiency has been defined by the [place] ofMedicine and an Endocrine Society practice guideline as alevel of serum 25-OH vitamin D less than 20 ng/mL (1,2).The Endocrine Society went on to further define vitamin Dinsufficiency as a level between 21 and 29 ng/mL (2).1. IOM (Lawrence of Medicine). 2011. Dietary reference intakes for calcium and D. [place]: The National Academies Press.2. Seng MF, Theresa ROMERO, Kieran KOWALSKI, et al. Evaluation, treatment, and prevention of vitamin D deficiency: an Endocrine Society clinical practice guideline. JCEM. 2010; 96(7): 1911-30.Performed at: [address] [id number] Director: Patito Segovia MD, Phone: [phone] :38 VITAMIN B12 781 pg/mL (Normal) Range: [...] 02/02/11 0843 Sign by: Dashawn Rowe MD 04-Fuh-471184:03 Thin prep Pap Comments: Source.............Cervical;EndocervicalNo. of containers..01 CYTYC Thin Prep VialPERFORMED BY: [facility] [address] [facility] [place] [id number] Information: [id number] ([id number]) Note: PAPSMR (Normal) Comments: The Pap smear [...] ; Routine gynecolog ical examina Deidre Aguila Clinical Care Coordinator (ASCP) 51-Bwa-988051:01 BILAT SCRN DIGITAL & CAD Radiology Report [...] 11/10/10 1453 Sign by: Dashawn Rowe MD 96-Mjb-540185:16 COMP METABOLIC Comments: appt 11/05/10 GAP 10 [...] 7-18 GLU 79 mg/dL (Normal) Range: 70-110 52-Fse-111546:16 LIPID VLDL 24 mg/dL (Normal) Range: 5-40 [...] 200-240 mg/dL Borderline >240 mg/dL High Risk 20-Ilj-645108:16 TSH 0.99 {uIU/mL} (Normal) Range: 0.358-3.74 48-Lkh-272180:16 VIT D,25 32014 45.6 ng/mL (Normal) Range: 32.0-100.0 Comments: Recent studies consider the lower limit of 32.0 ng/mL to zoraida threshold for optimal health.Everardo HEREDIA. J Nutr. 2004;135(2):317-22.Performed at: [facility] [place] [address]Lab Director: Patito Segovia MD, Phone: [phone] 18-Zhi-049429:16 VITAMIN B12 582 pg/mL (Normal) Range: 254-1320 Comments: There is a low frequency possibility that high titers ofintrinsic blocking antibodies may not be completely inactivated during the reaction pretreatment stepof this testing method. If test results are i n conflictwith the clinical diagnosis, patient should be testedfor the presence of intrinsic factor blocking antibodies. 84-Vpx-731773:20 CBCD,SMEAR DIFF PLT EST SeeNote (Normal) Comments: [...] 4.2-5.4 WBC 5.4 K/mm3 (Normal) Range: 4.4-11.0 59-Aty-620102:20 COMP METABOLIC GAP 9 (Normal) Range: 5-15 [...] 7-18 GLU 92 mg/dL (Normal) Range: 70-110 13-Ong-300433:20 LIPID HDL 63 mg/dL (Normal) Comments: Reference [...] {uIU/mL} (Normal) Range: 0.358-3.74 :20 VIT D,25 16429 43.2 ng/mL (Normal) Range: 32.0-100.0 Comments: Recent studies consider the lower limit of 32.0 ng/mL to zoraida threshold for optimal health.Mcgee . J Nutr. 2004;135(2):317-22.Performed at: [place] [address]Lab Director: Patito Segovia MD, Phone: [phone] :20 VITAMIN B12 516 pg/mL (Normal) Range: 254-1320 Comments: There is a low frequency possibility that high titers ofintrinsic blocking antibodies may not be completely inactivated during the reaction pretreatment stepof this testing method. If test results are i n conflictwith the clinical diagnosis, patient should be testedfor the presence of intrinsic factor blocking antibodies. :44 VIT D,25 33664 38.6 ng/mL (Normal) Range: 32.0-100.0 Comments: Recent studies consider the lower limit of 32.0 ng/mL to zoraida threshold for optimal health.Mcgee BW. J Nutr. 2004;135(2):317-22.Performed at: [address] [id number] 296Lab Director: Patito Segovia MD, Phone: [phone] :44 VITAMIN B12 398 pg/mL (Normal) Range: [...] intrinsic factor blocking antibodies. :24 VITD 1,25 77548 57.3 pg/mL (Normal) Range: 10.0-75.0 Comments: Performed at: [address] [id number] Director: Roderick Ramirez MD, Phone: [phone] 48-Jyv-690418:26 CBCD,SMEAR DIFF RED CELL MORPH SeeNote {NORMAL} [...] Report See Note (Normal) Comments: Exam Number: [id number] CLINICAL:69 year old female with numbness in [...] There is a fetalconfiguration of the right PROJECT CONSULTANT. No definite P1 segment connectingthe artery to the basilar artery is identified. IMPRESSION:No demonstrated aneurysm. Anatomic variations of the curyung of [place]. 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 The rightinternal carotid arteries supplies the left VIN[place] territory, and islarger than the left internal carotid. 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 Reported By: DOMENICA MCGARRY M.D. 23-Ojm-218638:41 BRAIN W/WO CONTRAST Radiology See Note Comments: Exam Number: [id number] CLINICAL: MRI BRAIN WITHOUT AND WITH CONTRAST [...] mild degenerative remodeling of the mandibular condyles.ADDENDUM: [id number] MRI/BRWW CLINICAL: MRI BRAIN WITHOUT AND WITH [...] CHOL 188 mg/dL (Normal) Comments: <200 mg/dL Nwbgtfhhr392-958 mg/dL Borderline>240 mg/dL High Risk HDL 54 [...] Range: 0.358-3.74 5 (Normal) :3 VIT D,25 62554 29.3 ng/mL (Abnormal) Range: 32.0-100.0 5 Comments: Recent studies consider the lower limit of 32.0 ng/mL to zoraida threshold for optimal health.Everardo HEREDIA. J Nutr. 2004;135(2):317-22.Performed at: [facility] [place] [address]Lab Director: Patito Segovia MD, Phone: [phone] :[phone] VITAMIN B12 158 pg/mL (Abnormal) Range: [...] Report See Note (Normal) Comments: Exam Number: [id number] CLINICAL:Right upper quadrant pain CT ABDOMEN WITH [...] parapelvic renal cysts. Reported By: PRADIP SALVADOR 08-Vkc-095429:29 BMP BUN 16 mg/dL (Normal) Range: 7-18 [...] mg/dL (Normal) Range: 70-110 12-Jun-20099:37 VIT D,25 85748 26.3 ng/mL (Abnormal) Range: 32.0-100.0 Comments: Recent studies consider the lower limit of 32.0 ng/mL to zoraida threshold for optimal health.Everardo HEREDIA. J Nutr. 2004;135(2):317-22.Performed at: [address] [id number] Director: Ade Rubio MD 16-Xhl-983709:36 GALLBLADDER (HP) Radiology Report See Note (Normal) Comments: Exam Number: [id number] LIMITED ABDOMINAL ULTRASOUND FOR GALLBLADDER HISTORYChest pain. [...] kidneyis suggested. Reported By: DOMENICA GATES M.D. 3-Rhc-242718:21 Lipase (41879) Comments: PATIENT NOT FASTINGPERFORMED BY: [address] [id number] Lipase, Serum 42 U/L (Normal) Range: 0-59 8-Vmd-461123:21 Amylase (28672) Comments: PATIENT NOT FASTINGPERFORMED BY: [place] [address] [facility] [id number] Amylase, Serum 54 U/L (Normal) Range: 31-124 :21 CBC WITH MANUAL DIFF Comments: PATIENT NOT FASTINGPERFORMED BY: [facility] [id number] Information: [id number] (76408) Baso (Absolute) 0.1 {x10E3/uL} (Normal) Range: 0.0-0.2 [...] PANEL, COMPREHENSIVE Comments: PATIENT NOT FASTINGPERFORMED BY: [facility] [id number] (44322) ALT (SGPT) 15 [iU]/L (Normal) Range: 0-40 [...] Comments: DR DAVIS ORDERED CMP,CBCMD,CAROL,RF,TSH,CRP,SED,CCP,LIPIDDR DONALDLANKIORDEREDCMP,CBCD,CRP,SED,VITD,CCP,HEPBSAB,HEPBSAG,HEPC,CAROL,RF,HEPBCORE IGM,[place] [id number] CAROL-DIRECT SeeNote (Normal) Comments: Result: Negative :48 ANTI-CCP 664089 4 {units} (Normal) Comments: DR DAVIS ORDERED [...] mm/h (Normal) Range: 0-30 :48 HB CORE [id number] SeeNote (Normal) Comments: DR DAVIS ORDERED CMP,CBCMD,CAROL,RF,TSH,CRP,SED,CCP,LIPIDDR VELLANKIORDEREDCMP,CBCD,CRP,SED,VITD,CCP,HEPBSAB,HEPBSAG,HEPC,CAROL,RF,HEPBCORE IGM,UA Comments: Result: Negative Performed At: [facility] [place], [place] [id number] At: [facility] [place] [phone] :48 HBsAg Comments: DR DAVIS ORDERED CMP,CBCMD,CAROL,RF,TSH,CRP,SED,CCP,LIPIDDR [...] of antibody present. :48 HEP C AB 175223 0.1 (Normal) Comments: DR DAVIS ORDERED CMP,CBCMD,CAROL,RF,TSH,CRP,SED,CCP,LIPIDDR [...] VELLANKIORDEREDCMP,CBCD,CRP,SED,VITD,CCP,HEPBSAB,HEPBSAG,HEPC,CAROL,RF,HEPBCORE IGM,UA Range: 0.358-3.74 :48 VIT D,25 30108 18.0 ng/mL (Abnormal) Comments: DR DAVIS ORDERED CMP,CBCMD,CAROL,RF,TSH,CRP,SED,CCP,LIPIDDR VELLANKIORDEREDCMP,CBCD,CRP,SED,VITD,CCP,HEPBSAB,HEPBSAG,HEPC,CAROL,RF,HEPBCORE IGM,UA Range: 32.0-100.0 Comments: Recent studies consider the lower limit of 32.0 ng/mL to zoraida threshold for optimal health.Everardo HEREDIA. J Nutr. 2004;135(2):317-22. 2-Lok-520581:10 BILAT SCRN DIGITAL & CAD Radiology Report See Note (Normal) Comments: Exam Number: [id number] MAMMOGRAM, BILATERAL SCREENING DIGITAL AND CAD HISTORYRoutine [...] (MQSA). The mammograms werealso examined with c D square nvuter-aided detection software ([employer], [employer]). Reported By: DOMENICA GATES M.D. 9-Uca-381532:09 SPINE,LUMBAR (ROUTINE) Radiology Report See Note (Normal) Comments: Exam Number: [id number] CLINICAL:68-year-old female with low back pain for [...] Report See Note (Normal) Comments: Exam Number: [id number] CLINICAL DATALow back pain, flank pain, right [...] disc disea se involving multiple levels from J9nncbpth S1. There is degenerative hypertrophic change of [...] Report See Note (Normal) Comments: Exam Number: [id number] DORSAL SPINE Three images of the dorsal [...] middle dorsal spine. Reported By: HEATHER JACKSON 6-Kqj-082409:22 Urine Culture,Comprehensive Comments: Clinical Information: SRC:UR PERFORMED BY: [facility] [id number] Result 1 NG36 (Normal) Comments: No growth in 36 - 48 hours. Urine Culture,Comprehensive Final report (Normal) 2-Ukn-225812:18 PELVIS WITHOUT IV CONTRAST Radiology Report See Note (Normal) Comments: Exam Number: [id number] CT SCANS OF ABDOMEN AND PELVIS HISTORYThe [...] Report See Note (Normal) Comments: Exam Number: [id number] CT SCANS OF ABDOMEN AND PELVIS HISTORYThe [...] the spine. Reported By: DOMENICA GATES M.D. 0-Gqy-537994:1 C-REACTIVE PROT 4.05 mg/L (Abnormal) Range: 0.0-3.0 [...] 6.4-8.2 GLU 84 mg/dL (Normal) Range: 70-110 4-Zxz-011045:10 ESR SED RATE 14 mm/h (Normal) Range: 0-30 6-Eid-711102:40 Urinalysis, Office (01575) UA - BILIRUBIN Negative (Normal) UA - BLOOD Non Hemolyzed Trace (Normal) UA - GLUCOSE Negative (Normal) UA - KETONES Negative mg/dL (Normal) UA - LEUKOCYTE ESTERASE Negative (Normal) Comments: aw UA - NITRITE Negative (Normal) UA - PH 6.0 (Normal) UA - PROTEIN Negative mg/dL (Normal) UA - SPECIFIC GRAVITY 1.010 (Normal) URINE UROBILINGN TUNDE TIMED Normal mg/dL (Normal) 1-Tce-633975:28 URINE CESAR CULTURE-TUNDE COL Comments: PATIENT NOT FASTINGClinical Information: SRC:UR ADD [id number] PERFORMED BY: [facility] Cvqshe[address] [facility] [id number] COUNT ([id number]) Result 1 MUG (Normal) Comments: Mixed urogenital flora10,000-25,000 colony forming units per mL Urine Final report (Normal) Culture,Comprehensive 8-Dwx-744184:09 Urinalysis, Office (73157) UA - BILIRUBIN Negative (Normal) UA - [...] mg/dL VLDL 16 mg/dL (Normal) Range: 5-40 9-Tod-670785:59 LQD PAP [id number] Comments: CYTOLOGY INFORMATION:- CLINICAL INFORMATION: POSTMENOPAUSAL- DATE LMP/MENOPAUSE: MENOPAUSE- COLLECTION VIAL: Thin Prep Vial- [employer] SOURCE: CERVICAL/ENDOCERVICAL- COLLECTION TECHNIQUE: BRUSH/SPATULA ADEQ Comment (Normal) Comments: Satisfactory for evaluation. Endocervical and/or squamous metaplasticcells (endocervical component) are present. COMM . (Normal) DIAGN Comment (Normal) Comments: NEGATIVE FOR INTRAEPITHELIAL LESION AND MALIGNANCY. HPV RFLX Comment (Normal) Comments: The HPV DNA reflex criteria were not met with this specimenresult therefore, no HPV testing was performed. .Performed At: [address] [id number] PAPR Comment (Normal) Comments: The Pap smear is a screening test designed to aid in thedetection of premalignant and malignant conditions of theuterine cervix. It is not a diagnostic procedure andshould not be used as the sole means of detecting cervicalcancer. Both false-positive and false-negative reports dooccur. . PERFORM Comment (Normal) Comments: Diandra Bee, Clinical Care Coordinator (ASCP) 89-Drw-552037:36 DEXA BONE DENSITY STUDY (HP) Radiology Report See Note (Normal) Comments: Exam Number: [id number] BONE DENSITOMETRY TECHNIQUE Bone densitometry of the [...] within normallimits. Reported By: DOMENICA GATES M.D. 98-Pmu-40153:55 COMP METABOLIC A/G 1.3 {RATIO} (Normal) Range: [...] T PROT 6.1 g/dL (Abnormal) Range: 6.4-8.2 50-Aop-978996:12 FUNEZ A AB [id number] FUNEZ A TYPE 10 <1:8 (Normal) FUNEZ [...] and its performancecharacteristics have been determined by [employer]. Performance characteristics refer tothe analytical performance of the test. FUNEZ A TYPE 2 <1:8 (Normal) FUNEZ A TYPE 4 <1:8 (Normal) FUNEZ A TYPE 7 <1:8 (Normal) FUNEZ A TYPE 9 <1:8 (Normal) :12 ESR SED RATE 14 mm/h (Normal) Range: 0-30 59-Itu-095161:12 RA LATEX 6502 7.1 {IU/mL} (Normal) Range: 0.0-13.9 Comments: Performed At: [facility] [place], [place] [id number] At: [facility] [address] [place], [place] [id number] 94-Rvn-966604:12 TSH 0.16 {uIU/mL} (Abnormal) Range: 0.34-4.82 74-Pnp-770991:21 PELVIS WITH CONTRAST Radiology Report See Note (Normal) Comments: Exam Number: [id number] CT ABDOMEN AND PELVIS WITH CONTRAST. CLINICAL [...] pericardial effusion. Reported By: TODD KENNEDY M.D. 33-Ddn-620887:11 ABDOMEN WITH CONTRAST Radiology Report See Note (Normal) Comments: Exam Number: [id number] CT ABDOMEN AND PELVIS WITH CONTRAST. CLINICAL [...] pericardial effusion. Reported By: TODD KENNEDY M.D. 72-Zql-356917:38 MARCUS 45 U/L (Normal) Range: 25-115 95-Thu-521869:38 CBCD,SMEAR DIFF BAND 1 % (Normal) Range: [...] 47-70 WBC 5.9 K/mm3 (Normal) Range: 4.4-11.0 52-Yac-345861:38 LIPASE 190 U/L (Normal) Range: 114-286 40-Dch-455023:45 BILAT SCRN DIGITAL & CAD Radiology Report See Note (Normal) Comments: Exam Number: [id number] MAMMOGRAM, BILATERAL SCREENING DIGITAL AND CAD HISTORYRoutine [...] werealso exam ined with computer-aided detection software ([employer], [employer]). Reported By: DOMENICA GATES M.D. 53-Xej-14582:33 CHEST W/WO CONTRAST Radiology Report See Note (Normal) Comments: Exam Number: [id number] CT SCAN OF CHEST HISTORYLung nodule. Consecutive [...] mg/dL VLDL 20 mg/dL (Normal) Range: 5-40 49-Yqo-44590:07 TSH 0.40 {uIU/mL} (Normal) Range: 0.34-4.82 Plan [...] itching : [facility] Indication: Vaginal itching Low Back Pain [...] Indication: Chest pain Chest pain : Reviewed Photo Lab Specialist Letter Indication: Chest pain Osteoarthritis, unspecified osteoarthritis [...] Hypercholesterolemia Planned Observations CBC W/AUTO DIFF WBC (08148)Indication: Prolonged QT interval On: :18 Request METABOLIC PANEL, COMPREHENSIVE (01181)Indication: Prolonged QT interval On: 9-Bth-445589:18 Request VITAMIN B-12 (CYANOCOBALAMIN) (34701)Indication: DEFICIENCY, B-COMPLEX NEC On: :18 Request TSH (86177)Indication: Acquired hypothyroidism On: :17 Request LIPOPROTEIN, BLD, BY NMR (78730)Indication: Hypercholesterolemia On: :17 Request VITAMIN B-12 (CYANOCOBALAMIN) (70478)Indication: DEFICIENCY, B-COMPLEX NEC On: :18 Request LIPID PANEL (53681)Indication: Hypercholesterolemia On: :18 Request CBC W/AUTO DIFF WBC (95526)Indication: Right flank pain On: :17 Request METABOLIC PANEL, COMPREHENSIVE (55354)Indication: Right flank pain On: 7-Lui-202523:17 Request Vitamin D Hydroxy (75672)Indication: Vitamin D deficiency, unspecified On: :17 Request Urinalysis, Office (00601)Indication: Urinary frequency On: 49-Oxg-625992:22 Request VITAMIN B-12 (CYANOCOBALAMIN) (95110)Indication: Other vitamin B12 deficiency anemia On: :28 Request Comments: Lot:[id number]:04/29Dose:1mlRoute:IMSite:r arm Given By:TAVON signed Vitamin D Hydroxy (08346)Indication: Vitamin D deficiency, unspecified On: :42 Request LIPID PANEL (37645)Indication: Hypercholesterolemia On: :42 Request METABOLIC PANEL, COMPREHENSIVE (39492)Indication: Essential hypertension On: :36 Request TSH (49153)Indication: Acquired hypothyroidism On: :36 Request CBC with auto diff (24088)Indication: Abdominal pain, acute, right lower quadrant On: 1-Aki-466273:06 Request METABOLIC PANEL, COMPREHENSIVE (09256)Indication: Abdominal pain, acute, right lower quadrant On: 7-Dwf-657326:06 Request Urinalysis, Office (15883)Indication: Low Back Pain (Renamed from LBP (low back pain)) On: 53-Zfs-007161:09 Request Vitamin D Hydroxy (69443)Indication: Vitamin D deficiency, unspecified On: 36-Gby-743413:32 Request METABOLIC PANEL, COMPREHENSIVE (76170)Indication: Essential hypertension On: :31 Request LIPID PANEL (18668)Indication: Hypercholesterolemia On: : Request TSH (49805)Indication: Acquired hypothyroidism On: : Request LIPID PANEL (83279)Indication: Hypercholesterolemia On: :45 Request TSH (92678)Indication: Acquired hypothyroidism On: :44 Request METABOLIC PANEL, COMPREHENSIVE (16091)Indication: Essential hypertension On: :44 Request CBC, PLATELETS & AUT DIFF (41359)Indication: DEFICIENCY, B-COMPLEX NEC On: 0-Ckj-326871:43 Request VITAMIN B-12 (CYANOCOBALAMIN) (80517)Indication: DEFICIENCY, B-COMPLEX NEC On: 3-Erk-313226:43 Request Vitamin D Hydroxy (64907)Indication: Vitamin D deficiency, unspecified On: 9-Njc-000250:43 Request IRON (70487)Indication: Anemia On: 1-Yoo-547650:42 Request Vitamin D Hydroxy (73820)Indication: Vitamin D deficiency, unspecified On: 4-Zza-714912:36 Request VITAMIN B-12 (CYANOCOBALAMIN) (92694)Indication: DEFICIENCY, B-COMPLEX NEC On: :35 Request CBC WITH MANUAL DIFF (77478)Indication: DEFICIENCY, B-COMPLEX NEC On: :35 Request METABOLIC PANEL, COMPREHENSIVE (96641)Indication: Essential hypertension On: :35 Request T3, FREE (TRIDOTHYRONINE) (58864)Indication: Acquired hypothyroidism On: :35 Request T4, FREE (22656)Indication: Acquired hypothyroidism On: :35 Request TSH (72085)Indication: Acquired hypothyroidism On: :34 Request TSH (91476)Indication: Acquired hypothyroidism On: 18-Kpp-504085:23 Request Comments: recheck in 6 weeks Metabolic Panel, Basic (86815)Indication: Essential hypertension On: 24-Jfa-519038:16 Request TSH (97831)Indication: Acquired hypothyroidism On: 49-Vfj-808638:22 Request C-REACTIVE PROTEIN (09737)Indication: right lower quadrant pain On: :51 Request SED RATE ERYTHROCYTE (86569)Indication: right lower quadrant pain On: :51 Request Magnesium (96377)Indication: Leg cramps On: :43 Request CBC WITH MANUAL DIFF (34213)Indication: Edema leg On: :42 Request LIPID PANEL (24230)Indication: Hypercholesterolemia On: :41 Request METABOLIC PANEL, COMPREHENSIVE (90965)Indication: Essential hypertension On: :41 Request VITAMIN B-12 (CYANOCOBALAMIN) (96499)Indication: Other vitamin B12 deficiency anemia On: :41 Request Vitamin D Hydroxy (62144)Indication: Vitamin D deficiency, unspecified On: :41 Request Metabolic Panel, Basic (38856)Indication: Acute renal failure, unspecified acute renal failure type On: :31 Request TSH (26397)Indication: Acquired hypothyroidism On: :30 Request LIPID PANEL (59025)Indication: Hypercholesterolemia On: :39 Request Vitamin D Hydroxy (54178)Indication: Vitamin D deficiency, unspecified On: :39 Request VITAMIN B-12 (CYANOCOBALAMIN) (11827)Indication: Other vitamin B12 deficiency anemia On: :39 Request CBC WITH MANUAL DIFF (89521)Indication: Other vitamin B12 deficiency anemia On: :39 Request METABOLIC PANEL, COMPREHENSIVE (72806)Indication: Essential hypertension On: :39 Request Vitamin D Hydroxy (58917)Indication: Vitamin D deficiency, unspecified On: :37 Request LIPID PANEL (14264)Indication: Hypercholesterolemia On: :37 Request TSH (19670)Indication: Acquired hypothyroidism On: :37 Request CBC WITH MANUAL DIFF (92511)Indication: Essential hypertension On: :39 Request METABOLIC PANEL, COMPREHENSIVE (05255)Indication: Essential hypertension On: :39 Request VITAMIN B-12 (CYANOCOBALAMIN) (71462)Indication: b12 deficiency On: :39 Request LIPID PANEL (10634)Indication: Hypercholesterolemia On: :39 Request Vitamin D Hydroxy (56382)Indication: Vitamin D deficiency, unspecified On: :32 Request VITAMIN B-12 (CYANOCOBALAMIN) (91552)Indication: b12 deficiency On: :32 Request Vitamin D Hydroxy (41119)Indication: Vitamin D deficiency, unspecified On: :32 Request METABOLIC PANEL, COMPREHENSIVE (29402)Indication: Essential hypertension On: :32 Request LIPID PANEL (98168)Indication: Hypercholesterolemia On: :32 Request TSH (90463)Indication: Acquired hypothyroidism On: :32 Request CBC WITH MANUAL DIFF (67830)Indication: Essential hypertension On: :30 Request METABOLIC PANEL, COMPREHENSIVE (17949)Indication: Essential hypertension On: :29 Request VITAMIN B-12 (CYANOCOBALAMIN) (57236)Indication: DEFICIENCY, B-COMPLEX NEC On: :29 Request Vitamin D Hydroxy (24286)Indication: Vitamin D deficiency, unspecified On: :29 Request TSH (36546)Indication: Acquired hypothyroidism On: :29 Request LIPID PANEL (37615)Indication: Hypercholesterolemia On: :29 Request Vitamin B-12 (cyanocobalamin) (34006)Indication: b12 deficiency On: :01 Request CALCIFIDIOL (02448) VIT D 25Indication: Vitamin D deficiency, unspecified On: 50-Uar-754983:00 Request TSH (19033)Indication: Acquired hypothyroidism On: 44-Uiy-343790:34 Request LIPID PANEL (62479)Indication: Hypercholesterolemia On: 63-Zyn-402915:34 Request Metabolic Panel, Basic (52230)Indication: Essential hypertension On: 33-Sjq-866265:26 Request VITAMIN B-12 (CYANOCOBALAMIN) (73995)Indication: DEFICIENCY, B-COMPLEX NEC On: 38-Lko-277711:19 Request Vitamin D Hydroxy (21015)Indication: Vitamin D deficiency, unspecified On: 53-Qbn-293014:19 Request VITAMIN D, 1, 25-DIHYDROXY (65974)Indication: Vitamin D deficiency, unspecified On: 0-Bsq-353774:19 Request Comments: Vit D [place] Vitamin B-12 (cyanocobalamin) (56871)Indication: b12 deficiency On: 9-Dqy-025541:17 Request CBC WITH MANUAL DIFF (56408)Indication: b12 deficiency On: 00-Rkr-638322:17 Request VITAMIN B-12 (CYANOCOBALAMIN) (41090)Indication: b12 deficiency On: 87-Vap-521774:14 Request VITAMIN B-12 (CYANOCOBALAMIN) (98723)Indication: Vitiligo On: 11-Qyr-432146:37 Request LIPID PANEL (32632)Indication: Hypercholesterolemia On: 41-Lhd-437049:33 Request TSH (94317)Indication: Acquired hypothyroidism On: 15-Seg-822968:32 Request Vitamin D Hydroxy (75575)Indication: Vitamin D deficiency, unspecified On: 38-Iok-018493:31 Request METABOLIC PANEL, COMPREHENSIVE (95180)Indication: Essential hypertension On: 20-Yry-374372:42 Request Vitamin D Hydroxy (65136)Indication: Vitamin D deficiency, unspecified On: 34-Yoe-269509:42 Request CAROL (ANTINUCLEAR ANTIBODY) (64321)Indication: Pain in unspecified joint On: 4-Zde-063629:27 Request C-REACTIVE PROTEIN (90777)Indication: Pain in unspecified joint On: :27 Request CBC WITH MANUAL DIFF (99018)Indication: Pain in unspecified joint On: :27 Request CCP ANTIBODY (13990)Indication: Pain in unspecified joint On: 5-Zfb-930407:27 Request METABOLIC PANEL, COMPREHENSIVE (92108)Indication: Pain in unspecified joint On: :27 Request RHEUMATOID FACTOR-QUANT (48685)Indication: Pain in unspecified joint On: : Request SED RATE ERYTHROCYTE (56557)Indication: Pain in unspecified joint On: : Request TSH (93315)Indication: Pain in unspecified joint On: : Request SED RATE ERYTHROCYTE (60854)Indication: flank pain On: :35 Request C-REACTIVE PROTEIN (18122)Indication: flank pain On: :35 Request METABOLIC PANEL, COMPREHENSIVE (27655)Indication: flank pain On: :35 Request CBC WITH MANUAL DIFF (53617)Indication: flank pain On: : Request URINE CESAR CULTURE (TUNDE COL COUNT) (79646)Indication: flank pain On: :35 Request Thin prep Pap (53916)Indication: Well woman exam with routine gynecological exam On: :09 Request CBC WITH MANUAL DIFF (63135)Indication: Essential hypertension On: 55-Wna-375405:02 Request METABOLIC PANEL, COMPREHENSIVE (93612)Indication: Essential hypertension On: 10-Tkx-593852:02 Request LIPID PANEL (14402)Indication: Hypercholesterolemia On: 34-Nan-180960:02 Request METABOLIC PANEL, COMPREHENSIVE (73848)Indication: Essential hypertension On: 78-Mxe-303788:18 Request TSH (38305)Indication: Acquired hypothyroidism On: 79-Cgi-065154:18 Request SED RATE ERYTHROCYTE (13382)Indication: Abdominal pain, acute, left upper quadrant On: 85-Pnx-512903:09 Request C-REACTIVE PROTEIN (69345)Indication: Abdominal pain, acute, left upper quadrant On: 44-Hmj-712862:09 Request CBC WITH MANUAL DIFF (47570)Indication: edema On: 50-Mio-337185:09 Request METABOLIC PANEL, COMPREHENSIVE (55401)Indication: edema On: 53-Xnp-967625:09 Request TSH (48513)Indication: Acquired hypothyroidism On: 52-Gay-892660:03 Request CBC WITH MANUAL DIFF (70033)Indication: Abdominal pain, acute, left upper quadrant On: 13-Zwx-205707:22 Request Lipase (62753)Indication: Abdominal pain, acute, left upper quadrant On: 09-Yrp-548522:22 Request Amylase (37974)Indication: Abdominal pain, acute, left upper quadrant On: [id number] Request Thin prep Pap ([id number])Indication: Well woman exam with routine gynecological exam On: 35-Ejc-[id number]:43 Request HEPATIC FUNCTION PANEL ([id number])Indication: Hypercholesterolemia On: :52 Request LIPID PANEL ([id number])Indication: Hypercholesterolemia On: :52 Request CBC, PLATELETS & AUTO DIFF ([id number])Indication: Leukopenia On: 56-Rvx-[id number]:34 Request Planned Encounters Medical; [facility] 6 Month Fu - On: 03-Jul-2018 13:00 [facility] Fast DO, Kristine A Fast DO, Kristine A Planned Procedures DEXA SCAN AXIAL SKELETON ([id number])By: On: 02-Jan-2018 Intent Fast DO, Kristine A Fast DO, Kristine A Comments: mar - RenalBy: Fast DO, On: 02-Jan-2018 Intent Kristine A Fast DO, Kristine A Flu Vaccine (Quadrivalent) 36429Ky: On: 02-Jan-2018 Intent Fast DO, Kristine A Fast DO, Kristine A Comments: Lot #[id number]/30/2019Site-L dltd, IMDose prefilled syringegiven by: Melly reviewed and ABN signed ELECTROCARDIOGRAM, COMPLETE (ECG) On: 28-Aug-2017 Intent ([id number])By: Fast DO, Kristine A Fast Comments: ekg showed normal sinus rhythym, normal axis, no acute st/t wave changes DO, Kristine A SCREENING DIGITAL TOMOSYNTHESIS OF On: 28-Aug-2017 Intent BREAST ([id number])By: Fast DO, Kristine A Fast DO, Kristine A B 12 Injection, 1000 mcg (J3420)By: On: 15-Mar-2017 Intent Visit, Nurse Comments: [id number]/ANOOP Almodovar B 12 Injection, 1000 mcg (J3420)By: On: 22-Feb-2017 Intent Fast DO, Kristine A Fast DO, Kristine A Comments: lot: [id number]: 05/01site/route: L del/IMamt: 1mLVIS signed when applicableCheRAYMUNDO carson Flu Vaccine (Quadrivalent) [id number]: On: 17-Jan-2017 Intent Fast DO, Kristine A [...] (J3420)By: On: 12-Dec-2016 Intent Visit, Nurse Comments: 82078/2018R arm, IM1ml, 1000mcgML, BIOMEDICAL MANAGER B 12 Injection, 1000 mcg (J3420)By: On: [...] Kristine A Fast DO, Kristine A Comments: B12lot:[id number]:ite:lt deltroute:Imdose:1mlD.Solitario MA B 12 Injection, 1000 mcg (J3420)By: On: 19-Jul-2016 Intent Fast DO, Kristine A Fast DO, Kristine A Comments: lot: [id number]: ite/route: L del/IMamt: 1mlVIS signed when applicableChelsea, INTERLOCKING AND SIGNAL MECHANIC B 12 Injection, 1000 mcg (J3420)By: On: [...] armGiven By:TAVON signed DEXA SCAN AXIAL SKELETON ([id number])By: On: 04-Apr-2016 Intent Fast DO, Kristine A Fast DO, Kristine A MRI LUMBAR SPINE W/O CONTRAST On: 04-Apr-2016 Intent ([id number])By: Fast DO, Kristine A Fast DO, Kristine [...] A ELECTROCARDIOGRAM, COMPLETE (ECG) On: 11-Dec-2015 Intent ([id number])By: Fast DO, Kristine A Fast Comments: ekg [...] MAMMOGRAM, SCREENING, BOTH BREAST On: 21-Apr-2015 Intent ([id number])By: Fast DO, Kristine A Fast DO, Kristine A B 12 Injection, 1000 mcg (J3420)By: On: 21-Apr-2015 Intent Fast DO, Kristine A Fast DO, Kristine A Comments: Lot:[id number]:11/27Dose:1mlRoute:IMSite:r arm Given By:JKMVIS signed B 12 Injection, 1000 mcg (J3420)By: On: 16-Mar-2015 Intent Fast DO, Kristine A Fast DO, Kristine A Comments: lot: [id number]: 06/27site/route: L del/IMamt: 1mLVIS signed when applicableKylee INTERLOCKING AND SIGNAL MECHANIC B 12 Injection, 1000 mcg (J3420)By: On: 09-Feb-2015 Intent Fast DO, Kristine A Fast DO, Kristine A Comments: B12lot:[id number]:06/27site:lt deltoidroute:IMdose:1mlDEMICK, SMA B 12 Injection, 1000 mcg (J3420)By: On: 15-Jan-2015 Intent ZahraHunter erazo Comments: B 12Lot:[id number]:17site:lt deltoidroute:IMdose:.5mlDEMICK, SMA B 12 Injection, 1000 mcg (J3420)By: On: 10-Dec-2014 Intent Fast DO, Kristine A Fast DO, Kristine A Comments: lot [id number] - see ANOOP Mcallister CT - Abdomen & Pelvis (IV Contrast On: 16-Sep-2014 Intent Needed)By: Fast DO, Kristine A Fast DO, Kristine A B 12 Injection, 1000 mcg (J3420)By: On: 16-Sep-2014 Intent Fast DO, Kristine A Fast DO, Kristine A Comments: Lot:[id number]:11.16Route:IMSite:R deltoidDose: 1 mLgiven by: Carlita Ariza INTERLOCKING AND SIGNAL MECHANIC B 12 Injection, 1000 mcg (J3420)By: On: 06-Aug-2014 Intent Fast DO, Kristine A Fast DO, Kristine A Comments: lot:[id number]:05/26route:IMdose:1MLSite:Right Deltoidgiven by: ANS B 12 Injection, 1000 mcg (J3420)By: On: 19-Jun-2014 Intent Visit, Nurse Comments: 4090a3.2016given, see ANOOP Altamirano B 12 Injection, 1000 mcg (J3420)By: On: 22-Apr-2014 Intent SlaSilvia buchanan LPN Comments: lot: [id number]: 4.16Dose: 1,000 mcgSite: l dltdLocation; IMby: Prevnar 13 ([id number])By: Fast DO, On: 24-Mar-2014 Intent Kristine A Fast DO, Kristine A Comments: lot: [id number]: 3/16site/route: L del/IMamt: 0.5mLVIS signed when applicableChels, [facility] Ultrasound - PelvisBy: Fast DO, On: 24-Mar-2014 Intent Kristine A Fast DO, Kristine A B 12 Injection, 1000 mcg (J3420)By: On: 24-Mar-2014 Intent Fast DO, Kristine A Fast DO, Kristine A Comments: lot: [id number]: 4/16site/route: R del/IMamt:1mlVIS signed when applicableCheCox Branson B 12 Injection, 1000 mcg (J3420)By: On: 24-Feb-2014 Intent Silvia Burton LPN Comments: lot: [id number]: 4.16Dose: 1,000 mcgSite: l dltdLocation; IMby: B 12 Injection, 1000 mcg (J3420)By: On: 22-Jan-2014 Intent Fast DO, Kristine A Fast DO, Kristine A Comments: lot [id number] 08/2015location L armroute imgiven by - msmith VIS and/or ABN signed B 12 Injection, 1000 mcg (J3420)By: On: 30-Dec-2013 Intent Fast DO, Kristine A Fast DO, Kristine A Comments: lot [id number] 05/2015location L armroute imgiven by - msmithVIS [...] Fast Comments: today DO, Kristine A EKG (08066)By: Fast DO, Kristine A On: 05-Nov-2013 Intent Fast DO, Kristine A Comments: ekg showed normal sinus rhythym, normal axis, no acute st/t wave changes B 12 Injection, 1000 mcg (J3420)By: On: 05-Nov-2013 Intent Fast DO, Kristine A Fast DO, Kristine A Comments: Lot:[id number]:11/24Dose:1mlRoute:IMSite:enoch armGiven By:TAVON signed PHYSICAL THERAPY EVALUATION On: 18-Oct-2013 Intent ([id number])By: Aquiles Potts CNP SPECIMEN HANDLING/TRANSPORT On: 18-Oct-2013 Intent ([id number])By: Aquiles Potts CNP B 12 Injection, 1000 mcg (J3420)By: On: 11-Oct-2013 Intent Aquiles Potts CNP Comments: Lot:[id number]:11/2013Dose:1mlRoute:IMSite:enoch Pierre By:TAVON signed B 12 Injection, 1000 mcg (J3420)By: On: 18-Sep-2013 Intent Fast DO, Kristine A Fast DO, Kristine A B 12 Injection, 1000 mcg (J3420)By: On: 07-Aug-2013 Intent Fast DO, Kristine A Fast DO, Kristine A Comments: lot: [id number]: ite/route: Enoch carey/IMamt: 1mLVIS signed when applicableChelsea, INTERLOCKING AND SIGNAL MECHANIC MAMMOGRAM, SCREENING, BOTH BREASTS On: 24-Jun-2013 Intent ([id number])By: Fast DO, Kristine A Fast DO, Kristine A B 12 Injection, 1000 mcg (J3420)By: On: 24-Jun-2013 Intent Fast DO, Kristine A Fast DO, Kristine A Comments: Lot:[id number]:04/28Dose:1mlRoute:IMSite:encoh armGiven By:TAVON signed B 12 Injection, 1000 mcg (J3420)By: On: 15-May-2013 Intent Visit, Nurse Comments: Lot:[id number]:01/25Dose:1mlRoute:IMSite:enoch armGiven By:TAVON signed B 12 Injection, 1000 mcg (J3420)By: On: 22-Apr-2013 Intent Fast DO, Kristine A Fast DO, Kristine A Comments: lot: [id number]: 01/25site/route: L deltoid/IMamt: 1mLVIS signed when applicableChelsea, INTERLOCKING AND SIGNAL MECHANIC B 12 Injection, 1000 mcg (J3420)By: On: 21-Mar-2013 Intent Fast DO, Kristine A Fast DO, Kristine A Comments: see flowsheetMegan PNEUM VAC ADLT/IMUMNOSPR, SBC/INTRM On: 18-Feb-2013 Intent ([id number])By: Fast DO Kristine A Fast Comments: Lot: [id number]: 66Gga50Znv: 0.5mlRoute: IMSite: L deltoidGiven by: ANOOP Moralez DO, Kristine A ADMINISTRATION OF PNEUMOCOCCAL On: 18-Feb-2013 Intent VACCINE (G0009)By: Antwan DO Kristine A Fast DO, Kristine A Eprescribed prescriptions On: 18-Feb-2013 Intent (G8553)By: Deanna Michelle B 12 Injection, 1000 mcg (J3420)By: On: 02-Jan-2013 Intent Deanna Michelle Comments: lot: [id number]: 10/25site/route: L deltoid/IMamt: 1mLVIS signed when applicableChelsea, INTERLOCKING AND SIGNAL MECHANIC B 12 Injection, 1000 mcg (J3420)By: On: [...] 08/24site/route: R deltoid/IMamt: 1mLVIS signed when applicableChelsea, INTERLOCKING AND SIGNAL MECHANIC B 12 Injection, 1000 mcg (J3420)By: On: 28-Aug-2012 Intent Antwan MIX Kristine A Fast DO, Kristine A Comments: Lot #:[id number] date:mount given:1mlRoute: IMSite given: left deltoidGiven by: AYAD Dailey B 12 Injection, 1000 mcg (J3420)By: On: 23-Jul-2012 Intent Fast DO, Kristine A Fast DO, Kristine A Comments: Lot: [id number]: 02/23Amt: 1000mcg/1mlRoute: IMSite: L Deltoid per pt [...] Intent Fast DO, Kristine A Fast DO, Krisitne A Comments: lot: [id number]:02/23site/route: L deltoid/IMamt: 1ccVIS signed when applicableCheRAYMUNDO carson B 12 Injection, 1000 mcg (J3420)By: On: 09-May-2012 Intent Kylee Castellon Comments: Lot:[id number]:02/2014Dose:1mlRoute:IMSite:L armGiven By:Jameson signed VENOUS DOPPLER LOWER EXTREMITY On: 18-Apr-2012 Intent ([id number])By: Fast DO, Kristine A Fast DO, Kristine A Radiology - Hip - RightBy: Fast DO, On: 06-Apr-2012 Intent Kristine A Fast DO, Kristine A Comments: call results B 12 Injection, 1000 mcg (J3420)By: On: 06-Apr-2012 Intent Lisandra Chilel Comments: Lot #[id number]/14Site-left deltoidDose-1 mlgiven by: Omkar Rivera LPN Eprescribed prescriptions On: 06-Apr-2012 Intent ([id number])By: Lisandra Chilel Inhaler Demo ([id number])By: Fast DO, On: 06-Feb-2012 Intent Kristine A Fast DO, Kristine A B 12 Injection, 1000 mcg (J3420)By: On: 06-Feb-2012 Intent Kylee Castellon Comments: Lot:[id number]:Dose:1mlRoute:IMSite:L armGiven By:TAVON signed MAMMOGRAM, SCREENING, BOTH BREASTS On: 06-Feb-2012 Intent ([id number])By: Fast DO, Kristine A Fast DO, Kristine [...] mlRoute: IMSite given: left deltoidGiven by: AMI Alcarazclinical research associate - Cervical SpineBy: Fast On: 13-Apr-2011 Intent DO, Kristine A Fast DO, Kristine A TD Injection , IM ([id number])By: On: 13-Apr-2011 Intent Lisandra Chilel Comments: received in 2005 B 12 Injection, 1000 mcg (J3420)By: On: 29-Mar-2011 Intent Kateyrna Lunsford MD Comments: Lot #[id number]-8.13Site-Left arm, IMDose 0.5mlgiven by:Татьяна B 12 Injection, 1000 mcg (J3420)By: On: 08-Feb-2011 Intent Татьяна Vera LPN Comments: Lot [id number]#Exp-7.13Site-R arm, IMDose 1mlgiven by:Татьяна DXA, BONE DENSITY, AXIAL SKELETON On: 24-Jan-2011 Intent ([id number])By: Lisandra Chilel Comments: post menopausal wihtout estrogen FLU VAC, SPLIT, >3 YEARS, INTRAMUSC On: 24-Jan-2011 Intent ([id number])By: Lisandra Chilel Comments: received at [facility] B 12 Injection, 1000 mcg (J3420)By: On: 21-Dec-2010 Intent Tripp DAVALOS Licha INJECTION, VITAMIN B-12 On: 19-Nov-2010 Intent CYANOCOBALAMIN, UP TO 1000 MCG Comments: Lot:[id number]:04/25Amt:1mlRoute:IMSite:left deltGiven By: ANOOP Sotelo (Special Coverage Instructions Apply. See CIM: 45-4 and MCM: 2049) (J3420)By: Vi Ramirez EKG ([id number])By: Lisandra Chilel On: 05-Nov-2010 Intent Comments: ekg showed normal sinus rhythym, normal axis, no acute st/t wave changes MAMMOGRAM, SCREENING, BOTH BREASTS On: 05-Nov-2010 Intent ([id number])By: Fast DO, Kristine A Fast DO, Kristine [...] 03-Jun-2010 Intent Yasmeen Rivera LPN Comments: Lot #[id number]/12Site-left deltoidDose-1 mlgiven by:[facility] IMMUNIZ ADMNIN, 1 VAC, SNGL/COMBO On: 19-Apr-2010 Intent ([id number])By: Yasmeen Rivera LPN Comments: Lot #[id number]-8/28/02Site-left deltoidDose- 0.85mlgiven by:[facility] [place], [place] ([id number])By: Miguel On: 19-Apr-2010 Intent Yasmeen DAVALOS B 12 Injection, 1000 mcg (J3420)By: On: 19-Apr-2010 Intent Hluszti BIOMEDICAL MANAGER, Yasmeen B 12 Injection, 1000 mcg (J3420)By: On: 22-Mar-2010 Intent Long BIOMEDICAL MANAGER, Татьяна L Comments: Lot #[id number]-10/22Site-L arm, IMDose [...] Rivera LPN Comments: Lot #[id number]-07/22Site-left deltoidDose-1 mlgiven by:[facility] FLU VAC, SPLIT, >3 YEARS, INTRAMUSC On: 30-Dec-2009 Intent (61261)By: Lisandra Chilel Comments: Lot #[id number]-1/11Site-left deltoidgiven by:[facility] B 12 Injection, 1000 mcg (J3420)By: On: 30-Dec-2009 Intent Lisandra Chilel Comments: Lot #[id number]-07/22Site-right deltoidDose-1 mlgiven by:[facility] Renal Duplex ScanBy: Fast DO, Kristine On: 30-Dec-2009 Intent A Fast DO, Kristine A IMMUNIZ ADMNIN, 1 VAC, SNGL/COMBO On: 30-Dec-2009 Intent ([id number])By: Lisandra Chilel B 12 Injection, 1000 mcg (J3420)By: On: 14-Dec-2009 Intent Shayna Harris Comments: Lot:[id number]:07/22Dose:1000mcg/1mlRoute:IMSite:right deltoid Given by: AYAD Gil B 12 Injection, 1000 mcg (J3420)By: On: 26-Nov-2009 Intent Phyllis Escobar RN Comments: documented in flowsheet B 12 Injection, 1000 mcg (J3420)By: On: 19-Oct-2009 Intent Yasmeen Rivera LPN Comments: Lot #[id number]-2/Site-left deltoidDose-1 mlgiven by:[facility] B 12 Injection, 1000 mcg (J3420)By: On: 13-Oct-2009 Intent Shayna Harris Comments: Lot:[id number]:2/12Dose:1000mcg/1mlRoute:imSite:right sideGiven by: AYAD Gil B 12 Injection, 1000 mcg (J3420)By: On: 06-Oct-2009 Intent Fast DO, Kristine A Fast DO, Kristine A Comments: Lot #[id number]-2Site-right deltoidDose- 1 mlgiven by:[facility] MRI - BrainBy: Fast DO, Kristine [...] do this week and call ressults EKG ([id number])By: Fast DO, Kristine A On: 17-Dec-2008 Intent Fast DO, Kristine A Comments: ekg showed normal sinus rhythym, normal axis, no acute st/t wave changes MAMMOGRAM, SCREENING, BOTH BREASTS On: 17-Dec-2008 Intent ([id number])By: Fast DO, Kristine A Fast DO, Kristine A MRI - Lumbar SpineBy: Fast DO, On: 17-Dec-2008 Intent Kristine A Fast DO, Kristine A FLU VAC, SPLIT, >3 YEARS, INTRAMUSC On: 17-Dec-2008 Intent ([id number])By: Lisandra Chilel Comments: Lot #:[id number] date:mount given:0.5mlRoute: IMSite given:left deltoidGiven by: AYAD Dailey ADMINISTRATION OF INFLUENZA VIRUS On: 17-Dec-2008 Intent VACCINE (G0008)By: Lisandra Chilel CT - Abdomen & Pelvis Stone On: 18-Aug-2008 Intent ProtocolBy: Fast DO, Kristine A Fast Comments: stat -call results DO, Kristine A Radiology - Chest- PA and LatBy: On: 24-Mar-2008 Intent Fast DO, Kristine A Fast DO, Kristine A Spirometry ([id number])By: Antwan DO, On: 24-Mar-2008 Intent Kristine A Fast DO, Kristine A Comments: good effort and curve minimal decrease small airways ADMINISTRATION OF PNEUMOCOCCAL On: 17-Dec-2007 Intent VACCINE (G0009)By: Fast DO, Kristine A Fast DO, Kristine A PNEUM VAC ADLT/IMUMNOSPR, SBC/INTRM On: 18-Dec-2007 Intent ([id number])By: Fast DO, Kristine A Fast Comments: Lot #:[id number] date:08/19Amount given:0.5mlRoute: IMSite given:left deltGiven by: AYAD Dailey DO, Kristine A MAMMOGRAM, SCREENING, BOTH BREASTS On: 17-Dec-2007 Intent ([id number])By: Fast DO, Kristine A Fast Comments: end of feb DO, Kristine A DXA, BONE DENSITY, AXIAL SKELETON On: 31-Oct-2007 Intent ([id number])By: Fast DO, Kristine A Fast DO, Kristine A Echo CompleteBy: Fast DO, Kristine A On: 25-Jul-2007 Intent Fast DO, Kristine A Bio Z ([id number])By: Fast DO, Kristine A On: 25-Jul-2007 Intent Fast DO, Kristine A Comments: good cardiac output and no excesive gfluid EKG ([id number])By: Fast DO, Kristine A On: 25-Jul-2007 Intent Fast DO, Kristine A Comments: ekg showed normal sinus rhythym, normal axis, no acute st/t wave changes CT - Abdomen & Pelvis (IV Contrast On: 11-Jul-2007 Intent Needed)By: Adrianna Morgan DO MAMMOGRAM, SCREENING, BOTH BREASTS On: 27-Mar-2006 Intent ([id number])By: Adrianna Morgan DO Planned Medications Vitamin B-12 [...] MCG/ML Injection Solution Ordered: 22-Apr-2014 Pending Slarb BIOMEDICAL MANAGER, Silvia Vitamin B-12 1000 MCG/ML Injection Solution Ordered: 24-Mar-2014 Pending Fast DO, Kristine A Fast DO, Kristine A Vitamin B-12 1000 MCG/ML Injection Solution Ordered: 24-Feb-2014 Pending Slarb BIOMEDICAL MANAGER, Silvia Vitamin B-12 1000 MCG/ML Injection Solution [...] MCG/ML Injection Solution Ordered: 05-Nov-2015 Pending Emick, [place] Vitamin B-12 1000 MCG/ML Injection Solution Ordered: 05-Oct-2015 Pending Fast DO, Kristine A Fast DO, Krisitne A Vitamin B-12 1000 MCG/ML Injection Solution [...] online - Detail Indication[facility] Patient Instructions Indication: [facility] Wellness Physical Hip pain, right : How [...] / tylenol and - more mobile on PEPperPRINTic days- cleo notices a difference Encounter Diagnosis: [...] went well- she saw Dr Mckeon in [facility] for pain management - had [...] emotional problems . Note for Physical exam: [facility] Wellness Physical- her hip bursitis better can [...] do a lot of walking Encounter Diagnosis: [facility] Wellness Physical, Nonsmoker, BMI 37.0-37.9, adult, [...] procedure: ( End: 10-Dec-2014 21:34 / at [facility] with dr Mahesh stokes) . There have been no problems with general anesthesia or blood/blood products. Prosthetics include: dentures (partial). Note for Preoperative evaluation: [facility]- [...] scleroderma, leukopenia). Note for Follow up for master scheduler tim medical issues: Pt had colonoscopy done [...] scleroderma, leukopenia). Note for Follow up for master scheduler tim medical issues: No routine labs done [...] scleroderma, leukopenia). Note for Follow up for master scheduler tim medical issues: still having right lateral [...] scleroderma, leukopenia). Note for Follow up for master scheduler tim medical issues: sdhe is losing weight [...] scleroderma, leukopenia). Note for Follow up for master scheduler tim medical issues: feels well other than [...] scleroderma, leukopenia). Note for Follow up for master scheduler tim medical issues: No routine labs done [...] medical issues: she saw Jessee Stringer at [facility] for her groin pain- - said [...] and mammograms back in may- Pt seen Aquilse Potts for thi End: 15-Aug-2011 22:27 s. [...] the rare occ that she takes at [facility] but doesnt know accuracy, [ADDITIONAL REASON] [...]
--- OUTSIDE RECORDS SUMMARY | 2018-06-01 23:48 | XMS RPT_ITS | Continuity of Care Document ---
:1940 Author Organization [facility] Address [address] [facility] [address] [place] [address] Phone Care Team Providers Name Role Phone [...] A Start : 02-Mar-2016 Active Comments:[facility] report#[id number], df approved and given to pt-jf 03/02/16 Imipramine HCl 25 MG Oral Tablet 1 (one) Tablet qhs prn for 0 days Quantity: 30 {Tablet} Refills: 1 Ordered:14-Jul-2017 Fast DO, Kristine AFast DO, Kristine A Start : 14-Jul-2017 Active Comments:verbally called to [facility] - cmanchak 5/4 Leg Cramps [...] cap daily (100 MG) Active Vitamin D3 65359 UNIT Oral Capsule 1 (one) Capsule once [...] : 11-Jul-2007 End : 08-Aug-2007 Discontinued Drisdol 18039 UNIT Oral Capsule 1 (one) Capsule once [...] Chilel End : 08-Aug-2007 Discontinued VITAMIN D, 15191IUFT (Oral Capsule) 1 cap q week (63675 UNIT) Start : 27-Mar-2013 End : 27-Mar-2013 Discontinued Comments:This order discontinued per [employer]. VITAMIN D, 15567EVCF (Oral Capsule) 1 cap Capsule q week [...] and Bladder Result: Comments: See Note; NOTES: [facility] Imaging Services [address] [place] [address] Kidney and Bladder MR#: [id number] Acct: [id number] Name: VIRGINIA URRUTIA Rep #: [id number] : 1940 F 77 From: Doug Sinclair DO PCP: Kristine Davis DO Status: REG CLI Study: Kidney and Bladder Date of Exam: 01/11/18 Exam# [id number] Ordering Dr: Kristine Davis DO STUDY: RENAL [...] Doug Sinclair DO at 23:00 EDT Tel [phone], Service support , CC: Kristine Davis DO Engine Service Repairer: Signed 05-Oct-2017 TXT - Blood Flow Screening Result: Comments: See Note; NOTES: [facility] Cardiovascular Services [address] [facility] [place] [address] 10/02/17 0928 MR#: [id number] Acct: [id number] Name: VIRGINIA URRUTIA Rep #: [id number] [...] DO Date Dictated: 10/02/1728 Date Transcribed: 10/05/171656 Engine Service Repairer: Signed 02-Oct-2017 SCREENING MAMM (CAD), BILAT Result: Comments: See Note; NOTES: [facility] Imaging Services [address] [place] [address] SCREENING MAMM (CAD), BILAT MR#: [id number] Acct: [id number] Name: VIRGINIA URRUTIA Rep #: [id number] : 1940 F 76 From: Noel Avitia MD PCP: Kristine Davis DO Status: REG CLI Study: SCREENING MAMM (CAD), BILAT Date of Exam: 10/02/17 Exam# [id number] Ordering Dr: Kristine Davis DO MAMMOGRAPHY - [...] Service support , CC: Kristine Davis DO Engine Service Repairer: Signed 14-Sep-2016 Venous Duplex Lower Extremity Result: Comments: See Note; NOTES: [facility] Cardiovascular Services [address] [place] [address] Venous Duplex US, Unilateral 09/14/16 1558 MR#: [id number] Acct: [id number] Name: VIRGINIA YEH Rep #: [id number] : 1940 75 From: Johan Ortega MD [...] Date Dictated: 09/14/16 1558 Date Transcribed: 09/14/16 7049 Engine Service Repairer: Signed 23-Aug-2016 Re-Evaluation - PT (1) Result: Comments: See Note; NOTES: [facility] Physical Therapy [facility] [address] [facility]. [address] [place] [address] Fax REEVALUATION / MEDICARE RECERTI MATTHIAS Zamora 4d PHYSICAL THERAPY MR#: [id number] Acct: [id number] Name: VIRGINIA URRUTIA Rep #: [id number] : 1940 75 From: Humberto Aguilar DPT, OCS, CSCS Referring DrDav: OUT OF TOWN DOCTOR Status : REG RCR Insurance: [facility] Out of [facility] Doctor, It has been my pleasure [...] do not hesitate to contact me at [phone] by phone or if you have questions [...] - PT Result: Comments: See Note; NOTES: [facility] Physical Therapy [facility] [address]. [address] [place] [address] Fax REHABILITATION SERVICES INITIAL EVALUATION MR#: [id number] Acct: [id number] Name: VIRGINIA URRUTIA Rep #: [id number] : 1940 75 From: Humberto Aguilar DPT, OCS, CSCS Referring : OUT OF TOWN DOCTOR Status: REG RCR Insurance: [facility] Patient's Visit Information VIRGINIA URRUTIA is a 75 year old F referred to Physical Therapy by Out [facility] Doctor with a diagnosis of L knee [...] to be FAXED BACK to us at [phone] for Medica re purposes. Please let me know if there are questions or concerns regarding this plan of care. Physician Signature: Date: <Elec tronically signed by Humberto Aguilar DPT, OCS, CSCS> 07/29/16 6399 CC: Kristine Davis DO; OUT OF TOWN DOCTOR EBG Signed For Medicare only, by signing this I certify the pl an of care. Physicians Signature Date 19-Apr-2016 Emergency Department Summary Result: Comments: See Note; NOTES: [facility] Medical Records Department [address] [place] [address] Emergency Department Summary MR#: [id number] Acct: [id number] Name: VIRGINIA URRUTIA Rep #: [id number] : 1940 75 From: Byron Harris MD PCP: Kristine Davis DO Status: [facility] ER DATE OF SERVICE: 04/14/2016 METHOD [...] Angel Douglas C: Kristine Davis DO T: [facility] JOB: [id number] 04/19/16 1814 <Electronically signed by Byron Harris MD> Date yBron Harris MD Cosigner Signature (If Indicated): Date CC: Kristine Davis DO Date Dictated: 04/15/1634 Date Transcrib ed: 04/15/1634 Engine Service Repairer: Signed 15-Apr-2016 Discharge Instruction Result: Comments: See Note; NOTES: [facility] Medical Records Department [address] [place] [address] Discharge Instruction 04/14/162306 MR#: [id number] Acct: [id number] Name: VIRGINIA URRUTIA Rep #: [id number] : 1940 75 From: Byron Harris MD [...] your Primary Care Provider. Call Doctors Registry ([phone]) or report to the closest Emergency Room. Call 911 if necessary. 04/15/16 0118 &#6 0;Electronically signed by Byron Harris MD> Date Byron Harris MD Cosigner Signature (If Indicated): Date CC: Kristine Davis DO 14-Apr-2016 Venous Duplex Imag/Limited/Uni Result: Comments: See Note; NOTES: [facility] Imaging Services [address] [place] [address] Verdana 4d Venous Duplex Imag/Limited/Uni MR#: [id number] Acct: [id number] Name: RHONA URRUTIA Rep #: [id number] : 1940 F 75 From: Doug Sinclair DO PCP: Kristine Davis DO Status: REG ER Study: Venous Duplex Imag/Limited/Uni Date of Exam: 04/14/16 Exam# [id number] Ordering Dr: Byron Harris MD STUDY: VENOUS [...] Doug Sinclair DO at 23:15 EST Tel [phone], Service support [phone], CC: Kristine Davis DO; Byron Harris MD Engine Service Repairer: Signed 13-Apr-2016 Spine Lumbar (Routine) Result: Comments: See Note; NOTES: [facility] Imaging Services [address] [place] [address] Verdana 4d Spine Lumbar (Routine) MR#: [id number] Acct: [id number] Name: VIRGINIA URRUTIA p #: [id number] : 1940 F 75 From: Tiara Parsons MD PCP: Kristine Davis DO Status: REG CLI Study: Spine Lumbar (Routine) Date of Exam: 04/13/16 Exam# [id number] Ordering Dr: Kristine Davis DO STUDY: MRI [...] MD at 11:48 EST , Service support [phone], CC: Kristine Davis DO Engine Service Repairer: Signed 12-Apr-2016 PT D/C Summary (1) Result: Comments: See Note; NOTES: [facility] Physical Therapy [address] [place] [address] Fax REHABILITATION SERVICES DISCHAR SUMMARY MR#: [id number] Acct: [id number] Name: VIRGINIA URRUTIA Rep #: [id number] : 1940 75 From: Humberto Aguilar DPT, OCS, CSCS Referring : Kristine Davis DO Status: REG RCR [facility] Summary It has been my pleasure to treat VIRGINIA URRUTIA under orders from Kristine Davis DO, for the diagnosis of R hip pain for a total of 12 visit(s). Discharge Date: Please see the [facility] information for a summary of their discharge [...] help or hurt it. Will be in [place] in May and will have L TKA [...] please feel free to call me at [phone]. Thank yo sridevi for the referral of this patient. Sincerely, Humberto Aguilar DPT, OC <Electronically signed by Humberto Aguilar DPT, OCS, CSCS> 04/12/16 1621 CC: Kristine Davis DO EBG Signed 12-Apr-2016 Dexa Bone Density Study (HP) Result: Comments: See Note; NOTES: [facility] Imaging Services [address] [place] [address] Verdana 4d Dexa Bone Density Study () MR#: [id number] Acct: [id number] Name: ENE URRUTIA Rep #: [id number] : 1940 F 75 From: Dashawn Rowe MD PCP: Kristine Davis DO Status: REG CLI Study: Dexa Bone Density Study () Date of Exam: 04/12/16 Exam# [id number] Ordering Dr: Magallanes DO STUDY: DUAL ENERGY [...] Dashawn Rowe MD at 14:32 EST Tel [phone], Service support [phone], CC: Kristine Davis DO Engine Service Repairer: Signed 10-Mar-2016 Inital Evaluation (1) - PT Result: Comments: See Note; NOTES: [facility] Therapy [facility] [address] [place] [address]. [address] [place] [phone] Fax REHABILITATION SERVICES INITIAL EVALUATION MR#: [id number] Acct: [id number] Name: VIRGINIA URRUTIA Rep #: [id number] : 1940 75 From: Jennifer Gongora DPT Referring DrDav: Kristine Davis DO Status: REG RCR [facility] VIR[place]IA URRUTIA is a [...] to be FAXED BACK to us at [phone] for Medicare purposes. Please let me know if there are questio ns or concerns regarding this plan of care. Physician Signature: Date: <Electronically signed by Jennifer Gongora DPT> 1243 CC: Kristine Davis DO ELR Signed For Medicare only, by signing this I certify the plan of care. Physicians Signature Date 17-Dec-2015 Echocardiogram Complete Result: Comments: See Note; NOTES: [facility] Cardiovascular Services [address] [place] [address] Echo Complete 12/17/15 1401 MR#: [id number] Acct: [id number] Name: VIRGINIA URRUTIA Rep #: [id number] : 1940 75 From: Chicho Bahena MD Attending Dr: Kristine Davis DO Status: REG CLI Ordering Dr: Kristine Davis DO Date: 12/17/15 Location: [facility] Sex: F C Admitted: Reason [...] Date Dictated: 12/17/15 1401 Date Transcribed: 12/17/151700 Engine Service Repairer: Signed 11-Dec-2015 Bilat Scrn Digital AND CAD Result: Comments: See Note; NOTES: [facility] Imaging Services [address] [place] [address] Verdana 4d Bilat Scrn Digital AND CAD MR#: [id number] Acct: [id number] Name: VIRGINIA URRUTIA Rep #: [id number] : 1940 F 75 From: Dashawn Rowe MD PCP: Kristine Davis DO Status: REG CLI Study: Bilvictor m [place] Digital AND CAD Date of Exam: 12/11/15 Exam# [id number] Ordering Dr: Kristine Davis DO MAMMOGRAPHY - [...] delay biopsy of a clinically suspicious abnormality. [id number] Electronically Signed: Dashawn Rowe MD at 8:47 EDT Tel [phone], Service support [phone], CC: Kristine Davis DO Engine Service Repairer: Signed 03-Jan-2015 Emergency Department Summary Result: Comments: See Note; NOTES: [facility] Medical Records Department [address] [place] [address] Emergency Department Summary MR#: [id number] Acct: [id number] Name: VIRGINIA URRUTIA Mook Rep #: [id number] : 1940 74 From: Ivette Cline PCP: [...] Angel Grossman C: Kristine Davis DO T: [facility] JOB: [id number] 01/03/15 9830 <Electronically signed b angle Cline > Date Ivette Cline Cosigner Signature (If Indicated): Date CC: Kristine Davis DO Date Dictated: 12/27/141108 Date Transcribed: 12/27/141108 Engine Service Repairer: Signed 27-Dec-2014 Discharge Instruction Result: Comments: See Note; NOTES: [facility] Medical Records Department [address] [place] [address] Discharge Instruction 12/27/14 1100 MR#: [id number] Acct: [id number] Name: VIRGINIA URRUTIA Rep #: [id number] : 1940 74 From: Ivette Cline PCP: [...] problems, contact your doctor. Call Doctors Registry ([phone]) or report to the closest Emergency Room. Call 911 if necessary. 12/27/141105 <Electronically signed by Ivette Cline > Date Ivette Cline Cosigner Signature (If Indicated): Date _ CC: Kristine Davis DO 27-Dec-2014 Spine Cervical without Contras Result: Comments: See Note; NOTES: [facility] Imaging Services [address] [place] [address] Verdana 4d Spine Cervical without Contras MR#: [id number] Acct: [id number] Na me: VIRGINIA URRUTIA Rep #: [id number] : 1940 F 74 From: Doug Sinclair DO PCP: Antwan DOKristine Status: REG ER Study: Spine Cervical without Contras Date of Exam: 12/27/14 Exam# [id number] Ordering Dr : Ivette Cline STUDY: CT [...] Doug Sinclair DO at 10:36 EDT Tel [phone], Service suppo rt [phone], CC: Ivette Cline; Kristine Davis DO Engine Service Repairer: Signed 23-Dec-2014 Emergency Department Summary Result: Comments: See Note; NOTES: [facility] Medical Records Department [address] [place] [address] Emergency Department Summary MR#: [id number] Acct: [id number] Name: VIRGINIA URRUTIA Rep #: [id number] : 1940 74 From: Se Dawkins MD PCP: Kristine Davis DO Status: [facility] ER DATE OF SERVICE: 12/23/2014 CHIEF [...] acute. Se Dawkins MD T: [facility] JOB: [id number] 12/23/14799 <Electronically signed by Se Dawkins MD> Date Se Dawkins MD Cosigner Signature (If Indicated): Date CC: Kristine Davis DO Date Dictated: 12/23/14707 Date Transcribed: 12/23/14707 Engine Service Repairer: Signed 23-Dec-2014 Discharge Instruction Result: Comments: See Note; NOTES: [facility] Medical Records Department [address] [place] [address] Discharge Instruction 12/23/14704 MR#: [id number] Acct: [id number] Name: VIRGINIA URRUTIA Rep #: [id number] : 1940 74 From: Se Dawkins MD [...] problems, contact your doctor. Call Doctors Registry ([phone]) or r aartirt to the closest Emergency Room. Call 911 if necessary. 12/23/14705 <Electronically signed by Se Dawkins MD> Date Se collins MD Cosigner Signature (If Indicated): Date CC: Kristine Davis DO 10-Dec-2014 ELECTROCARDIOGRAM, COMPLETE (ECG) (42495) Result: [MEASUREMENTS ANALYSIS] Date of Test: 12/10/2014 10:23:24; Heart Rate: 91; MT Interval: 144; QRS: 96; QT Interval: 372; Corrected QT Interval (QTc): 426; P Wave [place]: 49; QRS Wave [place]: 35; T Wave [place]: 30; Blood Pressure: 0/0 [ECG DIAGNOSTIC STATEMENTS] Date of Test: 12/10/2014 10:23:24; Summary: Sinus Rhythm Low voltage in limb leads. ABNORMAL 22-Sep-2014 Abdomen/Pelvis WITH Contrast Result: Comments: See Note; NOTES: [facility] Imaging Services [address] [place] [address] CAT Scan Report MR#: [id number] Acct: [id number] Name: VIRGINIA URRUTIA Rep #: [id number] : 1940 F 73 From: Rey Rojo MD PCP: Kristine Davis DO Status: REG CLI Study: Abdomen/Pelvis WITH Contrast Date of Exam: 09/22/14 Exam# [id number] Ordering Dr: Kristine Davis DO STUDY : [...] Rojo MD at 16:58 EDT Te l [phone], Service support [phone], CC: Kristine Davis DO Engine Service Repairer: Signed 31-Mar-2014 Transvaginal Non- Result: Comments: See Note; NOTES: [facility] Imaging Services [address] [place] [address] Ultrasound Report MR#: [id number] Acct: [id number] Name: VIRGINIA URRUTIA Rep #: [id number] : 1940 F 73 From: Dashawn Rowe MD PCP: Kristine Davis DO Status: REG CLI Study: Transvaginal Non- Date of Exam: 03/31/14 Exam# [id number] Ordering Dr: Kristine Davis DO STUD Y: [...] Dashawn Rowe MD at 13:55 EST Tel [phone], Service support [phone], F ax [phone] CC: Kristine Davis DO Engine Service Repairer: Signed 31-Mar-2014 Pelvic (Non ) Result: Comments: See Note; NOTES: [facility] Imaging Services [address] [place] [address] Ultrasound Report MR#: [id number] Acct: [id number] Name: VIRGINIA URRUTIA Rep #: [id number] : 1940 F 73 From: Dashawn Rowe MD PCP: Kristine Davis DO Status: REG CLI Study: Pelvic (Non ) Date of Exam: 03/31/14 Exam# [id number] Ordering Dr: Kristine Davis DO STUDY: U [...] Dashawn Rowe MD at 13:55 EST Tel [phone], Service support [phone], Fax CC: Kristine Davis DO Engine Service Repairer: Signed 22-Jan-2014 Bilvictor m [place]ar[place] Digital & CAD Result: Comments: See Note; NOTES: [facility] Imaging Services [address] [place] [address] Breast Imaging Report MR#: [id number] Acct: [id number] Name: VIRGINIA URRUTIA Rep #: [id number] : 1940 F 73 From: Dashawn Rowe MD PCP: Kristine Davis DO Status: REG CLI Exam# [id number] Ordering Dr: Kristine Davis DO MAMMOGRAPHY - [...] Dashawn Rowe MD at 14:49 EST Tel [phone], Ser vice support [phone], CC: Kristine Davis DO Engine Service Repairer: Signed 07-Nov-2013 L/S Spine Min 4 Views Result: Comments: See Note; NOTES: [facility] Imaging Services [address] [place] [address] Radiology Report MR#: [id number] Acct: [id number] Name: VIRGINIA URRUTIA Rep #: [id number] : 1940 F 73 From: Tod Lamas MD PCP: Kristine Davis DO Status: REG CLI Study: L/S Spine Min 4 Views Date of Exam: 11/07/13 Exam# [id number] Ordering Dr: Kristine Davis DO STUDY: X-RA [...] at 18:52 EDT Tel , Service support [phone], CC: Kristine Davis DO Engine Service Repairer: Signed 07-Nov-2013 Thoracic Spine 3 Views Result: Comments: See Note; NOTES: [facility] Imaging Services [address] [place] [address] Radiology Report MR#: [id number] Acct: [id number] Name: VIRGINIA URRUTIA Rep #: [id number] : 1940 F 73 From: Tod Lamas MD PCP: Kristine Davis DO Status: REG CLI Study: Thoracic Spine 3 Views Date of Exam: 11/07/13 Exam# [id number] Ordering Dr: Kristine Davis DO STUDY: X-R [...] at 17:07 EDT Tel , Service support [phone], CC: Kristine Davis DO Engine Service Repairer: Signed 05-Nov-2013 Abdomen/Pelvis without Cont Result: Comments: See Note; NOTES: [facility] Imaging Services [address] [place] [address] CAT Scan Report MR#: [id number] Acct: [id number] Name: VIRGINIA URRUTIA Rep #: [id number] : 1940 F 73 From: Dashawn Rowe MD PCP: Kristine Davis DO Status: REG CLI Study: Abdomen/Pelvis without Cont Date of Exam: 11/05/13 Exam# [id number] Ordering Dr: Kristine Davis DO STUD Y: [...] Dashawn Rowe MD at 15:39 EDT Tel [phone], Service supp ort [phone], CC: Kristine Davis DO Engine Service Repairer: Signed 07-Oct-2013 Kidney and Bladder Result: Comments: See Note; NOTES: [facility] Imaging Services [address] [place] [address] Ultrasound Report MR#: [id number] Acct: [id number] Name: VIRGINIA URRUTIA Rep #: [id number] : 1940 F 72 From: Brook Cummings DO PCP: Kristine Davis DO Status: REG CLI Study: Kidney and Bladder Date of Exam: 10/07/13 Exam# [id number] Ordering Dr: Aquiles Potts STUDY: RENAL ULTRAS [...] at 23:16 EDT Tel , Service support [phone], CC: Aquiles Potts; Kristine Davis DO Engine Service Repairer: Signed Immunization Name Dates Details Influenza (3 years and up) on: 17-Dec-2008 Comments: Lot #:[id number] date:mount given:0.5mlRoute: IMSite given:left deltoidGiven by: AYAD [...] 0.00 cm Results Date Description Value Details 05-Guv-575968:12 ANGTENSIN 1-CONVRT ENZYM Comments: PATIENT NOT FASTINGPERFORMED BY: [facility] [id number] BY: [facility] [id number] (98269) YOSEF 30 U/L (Normal) Range: 14-82 90-Ygd-569132:12 CCP ANTIBODY (01148) Comments: PATIENT NOT FASTINGPERFORMED BY: [facility] [facility] [id number] BY: [facility] [id number] CCP Antibodies IgG/IgA 8 {units} (Normal) Range: 0-19 Comments: Negative <20 Weak positive 20 - 39 Moderate positive 40 - 59 Strong positive >59 49-Biu-694533:12 CAROL (ANTINUCLEAR ANTIBODY) Comments: PATIENT NOT FASTINGPERFORMED BY: [address] [id number] BY: [address] [id number] ([address]902) CAROL Direct Negative (Normal) 05-Mdw-256793:12 RHEUMATOID FACTOR-QUANT Comments: PATIENT NOT FASTINGPERFORMED BY: [address] [id number] BY: [address] [id number] (65623) RA Latex Turbid. <10.0 {IU/mL} (Normal) Range: 0.0-13.9 39-Anc-154808:12 SED RATE ERYTHROCYTE Comments: PATIENT NOT FASTINGPERFORMED BY: [address] [id number] BY: [address] [id number] (46513) Sedimentation Rate-Westergren 15 mm/h (Normal) Range: 0-40 94-Wrn-047487:12 C-REACTIVE PROTEIN Comments: PATIENT NOT FASTINGPERFORMED BY: [address] [id number] BY: [address] [id number] (26716) C-Reactive Protein, Quant 2.9 mg/L (Normal) Range: 0.0-4.9 11-Bmm-294944:12 CBC, PLATELETS & AUT DIFF Comments: PATIENT NOT FASTINGPERFORMED BY: [address] [id number] BY: [address] [id number] (54566) Immature Grans (Abs) 0.0 {x10E3/uL} (Normal) Range: [...] 3.77-5.28 WBC 7.8 {x10E3/uL} (Normal) Range: 3.4-10.8 94-Oyx-194506:12 VITAMIN B-12 Comments: PATIENT NOT FASTINGPERFORMED BY: [facility] [facility] [id number] BY: [facility] [id number] (CYANOCOBALAMIN) (51821) Vitamin B12 579 pg/mL (Normal) Range: 232-1245 50-Zqy-42815:31 LIPID PANEL (32373) Comments: PATIENT WAS FASTINGPERFORMED BY: [facility]comBay[facility] Medical CenterNessrv[facility] [facility] [id number]; appt 01/02 LDL/HDL Ratio 1.9 {ratio} (Normal) [...] be changing to: Male Female 40 - 222079 50 - 035330 Triglycerides 145 mg/dL (Normal) Range: 0-149 Cholesterol, Total 240 mg/dL (Abnormal) Range: 100-199 17-Pqe-64156:31 METABOLIC PANEL, COMPREHENSIVE Comments: PATIENT WAS FASTINGPERFORMED BY: [facility]CoBay[facility] Medical CenterSiqxsv364[facility] [id number] (50579) ALT (SGPT) 16 [iU]/L (Normal) Range: 0-32 [...] 8-27 Glucose 98 mg/dL (Normal) Range: 65-99 72-Zrz-389923:13 METABOLIC PANEL, BASIC Comments: PATIENT NOT FASTINGPERFORMED BY: [facility]St[facility] [facility] [id number]; review on 01/02 (64630) Calcium 9.9 mg/dL (Normal) Range: 8.7-10.3 Carbon [...] 8-27 Glucose 98 mg/dL (Normal) Range: 65-99 28-Edp-412556:38 GGT (Gamma Glutamyl Comments: PATIENT NOT FASTINGPERFORMED BY: [facility] [facility] [address] [id number] Transferase) (18231) GGT 20 [iU]/L (Normal) Range: 0-60 61-Trj-538599:38 Alkaline Phosphatase (15169) Comments: PATIENT NOT FASTINGPERFORMED BY: [address] [id number] Alkaline Phosphatase 131 [iU]/L (Abnormal) Range: 39-117 67-Kva-131753:38 THYROXINE FREE (51989) Comments: PATIENT NOT FASTINGPERFORMED BY: [address] [id number] T4,Free(Direct) 1.92 ng/dL (Abnormal) Range: 0.82-1.77 41-Dvw-691582:38 FREE TRIDOTHYRONINE (T3) (72578) Comments: PATIENT NOT FASTINGPERFORMED BY: [address] [place] [id number] Triiodothyronine,Free,Serum 2.4 pg/mL (Normal) Range: 2.0-4.4 02-Qly-247477:38 VITAMIN B-12 (CYANOCOBALAMIN) Comments: PATIENT NOT FASTINGPERFORMED BY: [facility] Wdwvtg[address] [facility] [place] [id number] (20568) Vitamin B12 665 pg/mL (Normal) Range: 232-1245 26-Opj-57562:06 VITAMIN B-12 (CYANOCOBALAMIN) Comments: PATIENT NOT FASTINGPERFORMED BY: [facility] Odxnap[address] [facility] [place] [id number] (18741) Vitamin B12 1301 pg/mL (Abnormal) Range: 232-1245 6-Xyc-044752:25 Metabolic Panel, Comprehensive Comments: PATIENT NOT FASTINGPERFORMED BY: LabSturgis Hospital[address] [facility] [id number]; review on 08/28 (01982) ALT (SGPT) 10 [iU]/L (Normal) Range: 0-32 [...] 8-27 Glucose 84 mg/dL (Normal) Range: 65-99 6-Tbm-988463:25 CBC WITH MANUAL DIFF (32533) Comments: PATIENT NOT FASTINGPERFORMED BY: [facility] Vzlbii[address] [facility] [id number] Immature Grans (Abs) 0.0 {x10E3/uL} (Normal) Range: [...] PANEL, COMPREHENSIVE Comments: PATIENT NOT FASTINGPERFORMED BY: [facility] Qzhals2917 Carbon[facility] ContentAt[facility] Health [facility]burg [id number] (97491) ALT (SGPT) 10 [iU]/L (Normal) Range: 0-32 [...] 88 mg/dL (Normal) Range: 65-99 :46 TSH (73097) Comments: 6 weeks; PATIENT NOT FASTINGPERFORMED BY: [facility] Gzrujz0462 [address] [facility] [id number] TSH 2.420 {uIU/mL} (Normal) Range: 0.450-4.500 :23 LIPID PANEL (35972) Comments: PATIENT WAS FASTINGPERFORMED BY: RostelecomBayonne Medical CenterGwehhu25[address] [facility] [id number] LDL/HDL Ratio 1.6 {ratio_units} (Normal) Range: 0.0-3.2 [...] PANEL, COMPREHENSIVE Comments: PATIENT WAS FASTINGPERFORMED BY: Goshi Mrjhdz[address] [facility] [id number] (37012) ALT (SGPT) 15 [iU]/L (Normal) Range: 0-32 [...] Glucose, Serum 96 mg/dL (Normal) Range: 65-99 45-Njj-45541:23 CBC W/AUTO DIFF WBC (62605) Comments: PATIENT WAS FASTINGPERFORMED BY: [facility] Wquyln4882 [facility] [id number] Immature Grans (Abs) 0.0 {x10E3/uL} (Normal) Range: [...] (Normal) Range: 3.4-10.8 :23 Vitamin D Hydroxy (89849) Comments: PATIENT WAS FASTINGPERFORMED BY: [facility] Zmpqxg3510 [facility] [place] [id number] Vitamin D, 25-Hydroxy 41.5 ng/mL (Normal) Range: 30.0-100.0 Comments: Vitamin D deficiency has been defined by the [place] [facility] and an Endocrine Society practice guideline as alevel of serum 25-OH vitamin D less than 20 ng/mL (1,2).The Endocrine Society went on to further define vitamin Dinsufficiency as a level between 21 and 29 ng/mL (2).1. IOM ([place] of Medicine). 2010. Dietary reference intakes for calcium and D. [place]: The National AcademPresella.com Press.2. Seng MF, Theresa ROMERO, Kieran KOWALSKI, et al. Evaluation, treatment, and prevention of vitamin D deficiency: an Endocrine Society clinical practice guideline. JCEM. 2010; 96(7):1911-30. :23 TSH (39085) Comments: PATIENT WAS FASTINGPERFORMED BY: [facility] Swcsea5624 [facility] [place] [id number] TSH 0.429 {uIU/mL} (Abnormal) Range: 0.450-4.500 :23 VITAMIN B-12 (CYANOCOBALAMIN) Comments: PATIENT WAS FASTINGPERFORMED BY: [facility] Zsgqbw8827 [facility] [id number] (65087) Vitamin B12 553 pg/mL (Normal) Range: 211-946 1-Efz-094548:52 CBC, PLATELETS & MANUAL DIFF Comments: PATIENT NOT FASTINGPERFORMED BY: [facility] Citejf2316 [facility] [place] [id number] (69231) Immature Grans (Abs) 0.0 {x10E3/uL} (Normal) Range: [...] 3.4-10.8 :09 Basic Metabolic Profile (BMP) Comments: [facility] Tljolmftnc60[address] [employer], [place], [id number] GAP 9 (Normal) Range: 5-15 CO2 29.0 [...] :09 CBC-Complete Blood Cnt No Diff Comments: [facility] Fdpzchyhae[address] [place], [place], [id number] MPV 9.1 fL (Normal) Range: 6.2-12.0 PLT [...] 5.7 K/mm3 (Normal) Range: 4.4-11.0 :53 Magnesium (81828) Comments: PATIENT NOT FASTINGPERFORMED BY: [employer] [facility] Galtzz1890 [facility] [id number] Magnesium, Serum 1.9 mg/dL (Normal) Range: 1.6-2.3 :53 METABOLIC PANEL, COMPREHENSIVE Comments: PATIENT NOT FASTINGPERFORMED BY: [employer] [facility] Ybrtwq5449 [facility] [id number]; non- emergent till apt (56019) ALT (SGPT) 18 [iU]/L (Normal) Range: 0-32 [...] Glucose, Serum 83 mg/dL (Normal) Range: 65-99 25-Yll-60281:53 TSH (34784) Comments: PATIENT NOT FASTINGPERFORMED BY: [employer] Kicrov0465 [facility]At[facility] [id number] TSH 1.810 {uIU/mL} (Normal) Range: 0.450-4.500 22-Bpx-622754:15 Vitamin D Hydroxy (39374) Comments: PATIENT NOT FASTINGPERFORMED BY: [employer] [facility] Qkkrfo5653 Carbonated ContentAt[facility] [id number] Vitamin D, 25-Hydroxy 28.3 ng/mL (Abnormal) Range: 30.0-100.0 Comments: Vitamin D deficiency has been defined by the [place] ofMedicine and an Endocrine Society practice guideline as alevel of serum 25-OH vitamin D less than 20 ng/mL (1,2).The Endocrine Society went on to further define vitamin Dinsufficiency as a level between 21 and 29 ng/mL (2).1. IOM ([place] of Medicine). 2010. Dietary reference intakes for calcium and D. [place]: The National Academies Press.2. Seng MF, Theresa ROMERO, Kieran KOWALSKI, et al. Evaluation, treatment, and prevention of vitamin D deficiency: an Endocrine Society clinical practice guideline. JCEM. 2010; 96(7):1911-30. 51-Rgq-519022:15 VITAMIN B-12 (CYANOCOBALAMIN) Comments: PATIENT NOT FASTINGPERFORMED BY: [employer] Avjhrw7905 [address] [facility] [id number] (19690) Vitamin B12 447 pg/mL (Normal) Range: 211-946 86-Cay-386240:15 CBC W/AUTO DIFF WBC Comments: PATIENT NOT FASTINGPERFORMED BY: [facility] Sswvky5093 [facility] [id number] Information: SRC:ALONZO (23129) Immature Grans (Abs) 0.0 {x10E3/uL} (Normal) Range: [...] 3.77-5.28 WBC 5.6 {x10E3/uL} (Normal) Range: 3.4-10.8 89-Mmm-550726:15 METABOLIC PANEL, COMPREHENSIVE Comments: PATIENT NOT FASTINGPERFORMED BY: [facility] Ncwjdt9273 [facility] [id number] (23006) ALT (SGPT) 13 [iU]/L (Normal) Range: 0-32 [...] Glucose, Serum 87 mg/dL (Normal) Range: 65-99 36-Aqk-792057:50 Urinalysis, Office (36290) UA - LEUKOCYTE ESTERASE Trace (Normal) UA - NITRITE Negative (Normal) URINE UROBILINGN TUNDE TIMED Normal mg/dL (Normal) UA - PROTEIN Negative mg/dL (Normal) UA - PH 5 (Abnormal) UA - BLOOD Negative (Normal) UA - SPECIFIC GRAVITY 1.025 (Normal) UA - KETONES Negative mg/dL (Normal) UA - BILIRUBIN Negative (Normal) UA - GLUCOSE Negative (Normal) 72-Rrx-188223:15 URINE CESAR CULTURE (TUNDE COL Comments: PATIENT NOT FASTINGPERFORMED BY: [employer] [facility] [id number] COUNT) (81004) Result 1 MUG (Normal) Comments: Mixed urogenital floraGreater than 100,000 colony forming units per mL Urine Culture,Comprehensive Final report (Normal) 76-Xwx-868047:29 URINE CESAR CULTURE-IDENTIFICATN Comments: PATIENT NOT FASTINGPERFORMED BY: [facility] [id number] Information: [id number] (49677) Result 1 MUG (Normal) Comments: Mixed urogenital flora1,000 Colonies/mL Urine Culture,Comprehensive Final report (Normal) 03-Pgj-967638:29 URINE CESAR CULTURE-TUNDE COL Comments: PATIENT NOT FASTINGPERFORMED BY: [facility]lectrp [facility]stoc [facility] [id number] Information: SRC:[facility] [id number] COUNT (06602) Result 1 MUG (Normal) Comments: Mixed urogenital flora25,000-50,000 colony forming units per mL Urine Final report (Normal) Culture,Comprehensive 85-Nkq-688463:07 Urinalysis, Office (77431) UA - LEUKOCYTE ESTERASE Small (Normal) UA - NITRITE Negative (Normal) URINE UROBILINGN TUNDE TIMED Normal mg/dL (Normal) UA - PROTEIN Negative mg/dL (Normal) UA - PH 5 (Abnormal) UA - BLOOD Hemolyzed Trace (Normal) UA - SPECIFIC GRAVITY 1.015 (Normal) UA - KETONES Negative mg/dL (Normal) UA - BILIRUBIN Negative (Normal) UA - GLUCOSE Negative (Normal) 0-Ibr-081952:02 URINE CESAR CULTURE (TUNDE Comments: PATIENT NOT FASTINGPERFORMED BY: [facility]elecomBayonne Medical CenterOaqxqe4784 [facility] [id number] Information: SRC:[facility] [id number] COL COUNT) (48198) Result 1 NG36 (Normal) Comments: No growth in 36 - 48 hours. Urine Culture,Comprehensive Final report (Normal) 17-Sep-20149:51 CBC With Differential/Platelet Comments: PATIENT NOT FASTINGPERFORMED BY: [facility]ostelecomBayonne Medical CenterLqollc6871 [facility] [id number] Information: [id number] Immature Grans (Abs) 0.0 {x10E3/uL} (Normal) Range: [...] Panel (14) Comments: PATIENT NOT FASTINGPERFORMED BY: LabCoBayonne Medical CenterWezfkm2537 [facility] [id number] ALT (SGPT) 11 [iU]/L (Normal) Range: 0-32 [...] (Normal) Range: 65-99 :13 SED RATE ERYTHROCYTE (77127) Comments: PATIENT WAS FASTINGPERFORMED BY: [employer]10[employer]com6370 [facility] [id number] Sedimentation Rate-Westergren 6 mm/h (Normal) Range: 0-40 :13 C-REACTIVE PROTEIN (82580) Comments: PATIENT WAS FASTINGPERFORMED BY: RostelecomBayonne Medical CenterZykiem8544 [facility] [id number] C-Reactive Protein, Quant 2.2 mg/L (Normal) Range: 0.0-4.9 :13 CBC W/AUTO DIFF WBC Comments: PATIENT WAS FASTINGPERFORMED BY: [facility] Cjmvdi6121 [facility] [id number] Information: [id number] (93354) Immature Grans (Abs) 0.0 {x10E3/uL} (Normal) Range: [...] 4.6 {x10E3/uL} (Normal) Range: 3.4-10.8 :13 TSH (79094) Comments: PATIENT WAS FASTINGPERFORMED BY: [employer] [facility] [id number] TSH 0.584 {uIU/mL} (Normal) Range: 0.450-4.500 63-Cjm-543451:42 Urinalysis, Office (88518) UA - LEUKOCYTE ESTERASE Small (Normal) UA - NITRITE Negative (Normal) URINE UROBILINGN TUNDE TIMED Normal mg/dL (Normal) UA - PROTEIN Negative mg/dL (Normal) UA - PH 6 (Abnormal) UA - BLOOD Negative (Normal) UA - SPECIFIC GRAVITY 1.025 (Normal) UA - KETONES Negative mg/dL (Normal) UA - BILIRUBIN Negative (Normal) UA - GLUCOSE Negative (Normal) 50-Wsw-807564:43 URINE CESAR CULTURE (TUNDE Comments: PATIENT NOT FASTINGPERFORMED BY: [employer] [facility] [id number] Information: SRC:UR [id number] COL COUNT) (62352) Result 1 MUG (Normal) Comments: Mixed urogenital flora25,000-50,000 colony forming units per mL Urine Final report (Normal) Culture,Comprehensive :13 Vitamin D Hydroxy (66732) Comments: PATIENT WAS FASTINGPERFORMED BY: [employer] [facility] [id number] Vitamin D, 25-Hydroxy 38.7 ng/mL (Normal) Range: 30.0-100.0 Comments: Vitamin D deficiency has been defined by the [place] of[place]icine and an Endocrine Society practice guideline as alevel of serum 25-OH vitamin D less than 20 ng/mL (1,2).The Endocrine Society went on to further define vitamin Dinsufficiency as a level between 21 and 29 ng/mL (2).1. IOM ([place] of Medicine). 2010. Dietary reference intakes for calcium and D. [place]: The National Academies Press.2. Seng MF, Theresa ROMERO, Kieran KOWALSKI, et al. Evaluation, treatment, and prevention of vitamin D deficiency: an Endocrine Society clinical practice guideline. JCEM. 2010; 96(7):1911-30. :13 LIPID PANEL (47244) Comments: PATIENT WAS FASTINGPERFORMED BY: [email or web address] [facility] [facility] [id number] LDL/HDL Ratio 1.8 {ratio_units} (Normal) Range: 0.0-3.2 [...] PANEL, COMPREHENSIVE Comments: PATIENT WAS FASTINGPERFORMED BY: [email or web address] [employer] [facility] [id number] (57167) ALT (SGPT) 14 [iU]/L (Normal) Range: 0-32 [...] Glucose, Serum 86 mg/dL (Normal) Range: 65-99 22-Xzv-96562:13 VITAMIN B-12 (CYANOCOBALAMIN) Comments: PATIENT WAS FASTINGPERFORMED BY: [facility] CellectBayonne Medical CenterEzoztp8661 [facility] [id number] (76196) Vitamin B12 >1999 pg/mL (Abnormal) Range: 211-946 67-Lig-582888:00 Metabolic Panel, Basic Comments: 6 weeks; PATIENT NOT FASTINGPERFORMED BY: [facility] CellectBayonne Medical CenterKvkhhp3546 [facility] [id number] Information: [id number] (52755) Calcium, Serum 9.7 mg/dL (Normal) Range: 8.6-10.2 [...] Glucose, Serum 90 mg/dL (Normal) Range: 65-99 29-Ydx-419483:24 URINE CESAR CULTURE-IDENTIFICATN Comments: PATIENT NOT FASTINGPERFORMED BY: [place] 5767[address] [facility] [id number] Information: [id number] (59440) Result 1 ENTEGA (Abnormal) Comments: Enterococcus copcxzyfjw22,000-25,000 colony forming units per mLNote: For enterococci with intrinsic intermediate-level resistance tovancomycin, such as E. casseliflavus and E. gallinarum, VRE infection control measures are not applicable, per the CLSI (formerly NCCLS).For Enterococcus species, cephalosporins, aminoglycosides (except forhigh-level resistance screening), clindamycin, and trimethoprim-curtis lfamethoxazole are not effective clinically. Fluoroquinolones areused primarily for treating urinary tract infections. (CLSI, X747-Q05,2009) S = Susceptible; I = Intermediate; R = Resistant * P = Positive; N = Negative MICS are expressed in micrograms per mL Antibiotic RSLT#1 RSLT#2 RSLT#3 RSLT#4Ciprofloxacin SGentami lien 500 SLevofloxacin SNitrofurantoin IPenicillin SStreptomycin 2000 STetracycline SVancomycin R Urine Final report (Abnormal) Culture,Comprehensive 01-Uzw-877941:51 METABOLIC PANEL, Comments: PATIENT NOT FASTINGPERFORMED BY: [facility] [facility] [id number] Information: [id number] COMPREHENSIVE (91928) ALT (SGPT) 20 [iU]/L (Normal) Range: 0-32 [...] Glucose, Serum 80 mg/dL (Normal) Range: 65-99 80-Zwf-316686:04 Microscopic Examination Comments: PATIENT NOT FASTINGPERFORMED BY: Ornis70 Carbonated ContentAtrium Health [facility]burg [id number] Bacteria Few (Normal) Mucus Threads Present (Normal) Epithelial Cells (non renal) 0-10 {/hpf} (Normal) Range: 0 - 10 RBC None seen {/hpf} (Normal) Range: 0 - 2 WBC None seen {/hpf} (Normal) Range: 0 - 5 20-Lhc-825115:04 URINE CESAR CULTURE (TUNDE COL Comments: PATIENT NOT FASTINGPERFORMED BY: [email or web address] Carbonated ContentAtrium Health [facility] [id number] COUNT) (23197) Antimicrobial MIHEAD (Normal) Comments: S = Susceptible; [...] mL (Abnormal) Urine Final report Culture,Comprehensive (Abnormal) 45-Eur-003375:04 URINALYSIS, W/ MICRO Comments: PATIENT NOT FASTINGPERFORMED BY: [facility] [facility] [id number] Information: SRC: [id number] (51564) Microscopic Examination See below: (Normal) Comments: Microscopic was indicated and was performed. Microscopic Examination MICRON (Normal) Comments: Microscopic follows if indicated. Nitrite, Urine Negative (Normal) Bilirubin Negative (Normal) Urobilinogen,Semi-Qn 0.2 mg/dL (Normal) Range: 0.0-1.9 Ketones Negative (Normal) Occult Blood Negative (Normal) Glucose Negative (Normal) Protein Negative (Normal) WBC Esterase Negative (Normal) Appearance Clear (Normal) Urine-Color Yellow (Normal) pH 6.0 (Normal) Range: 5.0-7.5 Specific [place] 1.010 (Normal) Range: 1.005-1.030 84-Mqq-779414:00 METABOLIC PANEL, Comments: PATIENT NOT FASTINGPERFORMED BY: [facility] [facility] [id number] Information: [id number] COMPREHENSIVE (72317) ALT (SGPT) 11 [iU]/L (Normal) Range: 0-32 [...] Glucose, Serum 84 mg/dL (Normal) Range: 65-99 36-Duh-06353:26 CMP Comments: will review at 11/05 appt [...] CHOL 200 mg/dL (Normal) Comments: <200 mg/dL Dgmisbqhk748-831 mg/dL Borderline>240 mg/dL High Risk :26 TSH 1.85 {uIU/mL} (Normal) Range: 0.358-3.74 :26 VITD 72.9 mg/mL (Normal) Comments: will review at - appt Comments: Vitamin D 25(OH) Status RangeDeficiency <20 ng/mL (50nmol/L)Insuffciency 20 - 30 ng/mL (50 - 75 nmol/L)Sufficiency 30 - 100 ng/mL (75 - 250 nmol/L)Toxicity >100 ng/mL (>250 nmol/L) 3-Uwj-981184:05 Urinalysis, Office (66457) UA - LEUKOCYTE ESTERASE Negative (Normal) UA - NITRITE Negative (Normal) URINE UROBILINGN TUNDE TIMED 2 mg/dL (Normal) UA - PROTEIN 30 mg/dL (Normal) UA - PH 6.0 (Normal) Comments: 5.5 UA - BLOOD Negative (Normal) UA - SPECIFIC GRAVITY 1.030 (Abnormal) UA - KETONES Small mg/dL (Normal) UA - BILIRUBIN Negative (Normal) UA - GLUCOSE Negative (Normal) 5-Hzn-566294:33 URINE CESAR CULTURE-TUNDE COL Comments: PERFORMED BY: [facility]CoBayonne Medical CenterAoybfq6707 [facility] [id number] COUNT (31653) Result 1 MUG (Normal) Comments: Mixed urogenital flora10,000-25,000 colony forming units per mL Urine Final report (Normal) Culture,Comprehensive 47-Vux-679111:52 URINE CESAR CULTURE-TUNDE COL Comments: PATIENT NOT FASTINGPERFORMED BY: LISBETH [facility] Egosxv7[address] [place] [id number] Information: SRC:UR [id number] COUNT (44032) Antimicrobial MIHEAD (Normal) Comments: S = Susceptible; [...] CHOL 203 mg/dL (Abnormal) Comments: <200 mg/dL Gjznothzw049-234 mg/dL Borderline>240 mg/dL High Risk :47 TSH 1.52 {uIU/mL} (Normal) Range: 0.358-3.74 :47 VITD 59.3 mg/mL (Normal) Comments: Vitamin D 25(OH) Status RangeDeficiency <20 ng/mL (50nmol/L)Insuffciency 20 - 30 ng/mL (50 - 75 nmol/L)Sufficiency 30 - 100 ng/mL (75 - 250 nmol/L)Toxicity >100 ng/mL (>250 nmol/L) :44 CBC, PLATELETS & AUT DIFF Comments: PATIENT NOT FASTINGPERFORMED BY: LabCoBayonne Medical CenterMdzrqi8418 [facility] [id number] Information: [id number] (13959) Immature Grans (Abs) 0.0 {x10E3/uL} (Normal) Range: [...] (Normal) Range: 3.4-10.8 :44 FOLIC ACID SERUM (54535) Comments: PATIENT NOT FASTINGPERFORMED BY: RostelecomBayonne Medical CenterBquynr3743 [facility] [id number] Folate (Folic Acid), Serum 14.4 ng/mL (Normal) Comments: A serum folate concentration of less than 3.1 ng/mL isconsidered to represent clinical deficiency. :44 RETICULOCYTE COUNT MANUL Comments: PATIENT NOT FASTINGPERFORMED BY: [facility]aoSturg[facility] Hospital6370 [facility] [id number] (84701) Reticulocyte Count 1.1 % (Normal) Range: 0.6-2.6 :44 LDH (LD) (LACTATE DEHYDROGENASE) Comments: PATIENT NOT FASTINGPERFORMED BY: [facility]aoSturgis Hospital6370 [facility] [id number] (78586) LDH 250 [iU]/L (Abnormal) Range: 0-214 :44 IRON BINDING CAPACITY (TIBC) Comments: PATIENT NOT FASTINGPERFORMED BY: [facility]aoSturgis Hospital6370 [facility] [id number] (10978) Iron Saturation 16 % (Normal) Range: 15-55 Iron, Serum 52 ug/dL (Normal) Range: 35-155 UIBC 270 ug/dL (Normal) Range: 150-375 Iron Bind.Cap.(TIBC) 322 ug/dL (Normal) Range: 250-450 :44 FERRITIN (58141) Comments: PATIENT NOT FASTINGPERFORMED BY: LabCoBayonne Medical CenterMgkixo4057 [facility] [id number] Ferritin, Serum 42 ng/mL (Normal) Range: 15-150 [...] 17-Aug-20129:50 TSH 1.02 {uIU/mL} (Normal) Range: 0.358-3.74 74-Mkm-412569:02 BILAT SCRN DIGITAL & CAD Radiology Report [...] Rowe M.D.July 23, 2012 at 2:35:49 PM [id number] Signed GP/GP If you are the referring physicia n and would like to consult with theradiologist who provided this interpretation, please contact Ofelia Rodriguez at [phone]. If this radiologist is unavailable, youwill be directed to [facility] radiologist to assist. If you are a patient with a question regarding this report, pleasecontactyour referring physician directly. Professional Interpretation Provided By: OMG, Phone , These documents contain legally protected [...] 3 1439 Sign by: Dashawn Rowe MD 5-Pey-981425:59 KIDNEY Radiology Report See Note (Normal) Comments: [...] Welsh M.D.July 11, 2012 at 5:00:06 PM [id number] Signed TT/TT If you are the referring physician and would like to consult with theradiologist who provided this interpretation, please contact Brittney Mccormack M.D. at [phone]. If this radiologist is unavailable, youwillbe directed to another radiologist to assist. If you are a patient with a question regarding this report, pleasecontactyour referring physician directly. Professional Interpretat ion Provided By: OMG, Phone , These documents contain legally protected and confidential healthinformation intended only for the use of the individual or entity [facility]. If you are not the [...] MD on 07/11/121825 Sign by: Blaise CARRANZA,Brittney 9-Qwr-541373:59 TRANSVAGINAL NON- Radiology Report See Note (Normal) [...] Welsh M.D.July 11, 2012 at 4:45:28 PM [id number] Signed TT/TT If you are the referring physician and would like to consult with sebastian dunlap who provided this interpretation, please contact Brittney Mccormack M.D. at [phone]. If this radiologist is unavailable, youwillbe directed to another radiologist to assist. If you are a p atient with a question regarding this report, pleasecontactyour referring physician directly. Professional Interpretation Provided By: OMG, Phone , These documents contain legally protected [...] CHOL 210 mg/dL (Abnormal) Comments: <200 mg/dL Wytgukbat290-931 mg/dL Borderline>240 mg/dL High Risk :44 MG [...] well characterize low-attenuation left renal lesion,probably sales representative of a cyst. Consider follow-up renal sonographyforfurther evaluation as clinically warranted. Signed:Matilda AvilesJuly 04, 2012 at 5:12:21 PM [id number] Signed DL/DL If you are the referring physician and would like to consult with theradiologist who provided this interpretation, please contact Ofelia Kyle at [phone]. If this radiologist is unavailable, youwillbe directed to another radiologist to assist. If you are a patient with a question regarding this report, pleasecontactyo ur referring physician directly. Professional Interpretation Provided By: OMG, Phone , These documents contain legally protected [...] on 07/04/121714 Sign by: Salinas Champion MD 68-Tdp-007931:18 CRE GFRAA 41 mL/min (Abnormal) GFR 34 mL/min (Abnormal) CREAT 1.6 mg/dL (Abnormal) Range: 0.6-1.0 86-Nrj-359084:15 BMP GAP 7 (Normal) Range: 5-15 CO2 [...] 7-18 GLU 80 mg/dL (Normal) Range: 70-110 54-Yif-236666:15 TSH 3.05 {uIU/mL} (Normal) Range: 0.358-3.74 :22 B12 577 pg/mL (Normal) Range: 211-946 Comments: Performed at: - [facility] [id number] Director: Patito Segovia MD, Phone: [phone] :[phone] CBCMD RBCM NORM C+C {NORMAL} (Normal) [...] D deficiency has been defined by the [place] ofMedicine and an Endocrine Society practice guideline as alevel of serum 25-OH vitamin D less than 20 ng/mL (1,2).The Endocrine Society went on to further define vitamin Dinsufficiency as a level between 21 and 29 ng/mL (2).1. IOM ([place] of Medicine). 2010. Dietary reference intakes for calcium and D. [place]: The National AcademPresella.com Press.2. Seng MF, Theresa ROMERO, Kieran KOWALSKI, et al. Evaluation, treatment, and prevention of vitamin D deficiency: an Endocrine Society clinical practice guideline. JCEM. 2010; 96(7):1911-30. 45-Tlf-758837:37 BREAST UNILATERAL Radiology Report See Note (Normal) [...] Category 3: Probably Benign Finding - Initial Iyjix-WrpfkezzShviwf-uu Suggested. Signed:Dashawn Rowe M.D.November 09, 2011 at 2:49:17 PM [id number] Signed GP/GP If you are the referring physician and would like to consult with theradiologist who provided this interpretation, please contact Herb blake M.D. at [phone]. If this radiologist is unavailable, youwill be [...] 11/09/11 1456 Sign by: Dashawn Rowe MD 59-Szu-086423:47 BREAST UNILATERAL Radiology Report See Note (Normal) [...] Category 3: Probably Benign Finding - Initial Whtmh-TatqciecPqvrkj-fw Suggested. To consult with a radiologist regarding this report, please call our [id number] line @ Dictated on 06/22/11 1428 by Wendy Rowe MD on 06/22/11 1547 by ITS IMPORTSign by Dashawn Rowe MD on 06/22/11 1548 Sign by: ___ Dashawn Rowe MD 03-Nvs-671224:47 UNILAT LT DIAG DIGITAL & CAD Radiology [...] radiologist regarding this report, please call our 88R0jdvnkuw line @ Dictated on 06/22/11 1357 by Wendy Rowe MD on 1450 by ITS IMPORTSign by Dashawn Rowe MD on 06/22/11 1451 Sign by: Dashawn Rowe MD 6-Yrl-530737:14 CERV SPINE,MIN 4 VIEWS Radiology Report See [...] radiologist regarding this report, please call our [id number] line @ Dictated on 04/13/11 1408 by [...] or = 500 mg/dL :38 VIT D, 47867 47.8 ng/mL (Normal) Range: 30.0-100.0 Comments: Vitamin D deficiency has been defined by the [place] ofMedicine and an Endocrine Society practice guideline as alevel of serum 25-OH vitamin D less than 20 ng/mL (1,2).The Endocrine Society went on to further define vitamin Dinsufficiency as a level between 21 and 29 ng/mL (2).1. IOM ([place] of Medicine). 2011. Dietary reference intakes for calcium and D. [place]: The National Academies Press.2. Seng MF, Theresa ROMERO, Kieran KOWALSKI, et al. Evaluation, treatment, and prevention of vitamin D deficiency: an Endocrine Society clinical practice guideline. JCEM. 2010; 96(7): 1911-30.Performed at: [address] [id number] Director: Patito Segovia MD, Phone: [phone] :[phone] VITAMIN B12 781 pg/mL (Normal) Range: [...] 02/02/11 0843 Sign by: Dashawn Rowe MD 86-Wiv-051924:03 Thin prep Pap Comments: Source.............Cervical;EndocervicalNo. of containers..01 CYTYC Thin Prep VialPERFORMED BY: [facility] [address] [place] [facility] [place] [id number] Information: [id number] ([id number]) Note: PAPSMR (Normal) Comments: The Pap smear [...] ; Routine gynecolog ical examina Deidre Aguila Executive Recruiter (ASCP) 81-Yif-552017:01 BILAT SCRN DIGITAL & CAD Radiology Report [...] 11/10/10 1453 Sign by: Dashawn Rowe MD 14-Ivc-338655:16 COMP METABOLIC Comments: appt 11/05/10 GAP 10 [...] 7-18 GLU 79 mg/dL (Normal) Range: 70-110 85-Eqz-378081:16 LIPID VLDL 24 mg/dL (Normal) Range: 5-40 [...] 200-240 mg/dL Borderline >240 mg/dL High Risk 70-Zsv-491285:16 TSH 0.99 {uIU/mL} (Normal) Range: 0.358-3.74 34-Ycc-175015:16 VIT D,25 62974 45.6 ng/mL (Normal) Range: 32.0-100.0 Comments: Recent studies consider the lower limit of 32.0 ng/mL to zoraida threshold for optimal health.Everardo HEREDIA. J Nutr. 2004;135(2):317-22.Performed at: [facility] [place] [address]Lab Director: Patito Segovia MD, Phone: [phone] 12-Qip-588271:16 VITAMIN B12 582 pg/mL (Normal) Range: 254-1320 Comments: There is a low frequency possibility that high titers ofintrinsic blocking antibodies may not be completely inactivated during the reaction pretreatment stepof this testing method. If test results are i n conflictwith the clinical diagnosis, patient should be testedfor the presence of intrinsic factor blocking antibodies. 26-Yda-127279:20 CBCD,SMEAR DIFF PLT EST SeeNote (Normal) Comments: [...] 4.2-5.4 WBC 5.4 K/mm3 (Normal) Range: 4.4-11.0 81-Xal-263935:20 COMP METABOLIC GAP 9 (Normal) Range: 5-15 [...] 7-18 GLU 92 mg/dL (Normal) Range: 70-110 85-Tbl-062240:20 LIPID HDL 63 mg/dL (Normal) Comments: Reference [...] {uIU/mL} (Normal) Range: 0.358-3.74 :20 VIT D,25 73758 43.2 ng/mL (Normal) Range: 32.0-100.0 Comments: Recent studies consider the lower limit of 32.0 ng/mL to zoraida threshold for optimal health.Mcgee . J Nutr. 2004;135(2):317-22.Performed at: [place] [address]Lab Director: Patito Segovia MD, Phone: [phone] :20 VITAMIN B12 516 pg/mL (Normal) Range: 254-1320 Comments: There is a low frequency possibility that high titers ofintrinsic blocking antibodies may not be completely inactivated during the reaction pretreatment stepof this testing method. If test results are i n conflictwith the clinical diagnosis, patient should be testedfor the presence of intrinsic factor blocking antibodies. :44 VIT D,25 22986 38.6 ng/mL (Normal) Range: 32.0-100.0 Comments: Recent studies consider the lower limit of 32.0 ng/mL to zoraida threshold for optimal health.Mcgee BW. J Nutr. 2004;135(2):317-22.Performed at: [address] [address]Lab Director: Patito Segovia MD, Phone: [phone] :44 VITAMIN B12 398 pg/mL (Normal) Range: [...] intrinsic factor blocking antibodies. 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 No definite P1 segment connectingthe artery to the basilar artery is identified. IMPRESSION:No demonstrated aneurysm. Anatomic variations of the [place]. 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 The rightinternal carotid arteries supplies the left [place] territory, and islarger than the left internal carotid. 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 Reported By: DOMENICA MCGARRY M.D. 88-Ull-396639:41 BRAIN W/WO CONTRAST Radiology See Note Comments: Exam Number: [id number] CLINICAL: MRI BRAIN WITHOUT AND WITH CONTRAST [...] mild degenerative remodeling of the mandibular condyles.ADDENDUM: [id number] MRI/BRWW CLINICAL: MRI BRAIN WITHOUT AND WITH [...] CHOL 188 mg/dL (Normal) Comments: <200 mg/dL Oijrwzbsy370-721 mg/dL Borderline>240 mg/dL High Risk HDL 54 [...] Range: 0.358-3.74 5 (Normal) :3 VIT D,25 25434 29.3 ng/mL (Abnormal) Range: 32.0-100.0 5 Comments: Recent studies consider the lower limit of 32.0 ng/mL to zoraida threshold for optimal health.Everardo HEREDIA. J Nutr. 2004;135(2):317-22.Performed at: [facility] [place] [address]Lab Director: Patito Segovia MD, Phone: [phone] :[phone] VITAMIN B12 158 pg/mL (Abnormal) Range: [...] Report See Note (Normal) Comments: Exam Number: [id number] CLINICAL:Right upper quadrant pain CT ABDOMEN WITH [...] parapelvic renal cysts. Reported By: PRADIP SALVADOR 58-Ctm-319401:29 BMP BUN 16 mg/dL (Normal) Range: 7-18 [...] mg/dL (Normal) Range: 70-110 12-Jun-20099:37 VIT D,25 75764 26.3 ng/mL (Abnormal) Range: 32.0-100.0 Comments: Recent studies consider the lower limit of 32.0 ng/mL to zoraida threshold for optimal health.Everardo HEREDIA. J Nutr. 2004;135(2):317-22.Performed at: [address] [id number] Director: Ade Rubio MD 21-Nov-935351:36 GALLBLADDER (HP) Radiology Report See Note (Normal) Comments: Exam Number: [id number] LIMITED ABDOMINAL ULTRASOUND FOR GALLBLADDER HISTORYChest pain. [...] kidneyis suggested. Reported By: DOMENICA GATES M.D. 8-Xdq-122820:21 Lipase (32995) Comments: PATIENT NOT FASTINGPERFORMED BY: [address] [id number] Lipase, Serum 42 U/L (Normal) Range: 0-59 7-Iur-185784:21 Amylase (46735) Comments: PATIENT NOT FASTINGPERFORMED BY: [place] [address] [address] [id number] Amylase, Serum 54 U/L (Normal) Range: 31-124 :21 CBC WITH MANUAL DIFF Comments: PATIENT NOT FASTINGPERFORMED BY: [facility] [id number] Information: [id number] (17089) Baso (Absolute) 0.1 {x10E3/uL} (Normal) Range: 0.0-0.2 [...] PANEL, COMPREHENSIVE Comments: PATIENT NOT FASTINGPERFORMED BY: [facility] [id number] ([id number]) ALT (SGPT) 15 [iU]/L (Normal) Range: 0-40 [...] Comments: DR DAVIS ORDERED CMP,CBCMD,CAROL,RF,TSH,CRP,SED,CCP,LIPIDDR DONALDLANKIORDEREDCMP,CBCD,CRP,SED,VITD,CCP,HEPBSAB,HEPBSAG,HEPC,CAROL,RF,HEPBCORE IGM,UA [id number] CAROL-DIRECT SeeNote (Normal) Comments: Result: Negative :48 ANTI-CCP 909496 4 {units} (Normal) Comments: DR DAVIS ORDERED [...] (Normal) Range: 4.4-11.0 :48 COMP Comments: DR ADVIS ORDERED CMP,CBCMD,CAROL,RF,TSH,CRP,SED,CCP,LIPIDDR VELLANKIORDEREDCMP,CBCD,CRP,SED,VITD,CCP,HEPBSAB,HEPBSAG,HEPC,CAROL,RF,HEPBCORE IGM,UA METABOLIC A/G 1.1 [...] mm/h (Normal) Range: 0-30 :48 HB CORE [id number] SeeNote (Normal) Comments: DR DAVIS ORDERED CMP,CBCMD,CAROL,RF,TSH,CRP,SED,CCP,LIPIDDR VELLANKIORDEREDCMP,CBCD,CRP,SED,VITD,CCP,HEPBSAB,HEPBSAG,HEPC,CAROL,RF,HEPBCORE IGM,UA Comments: Result: Negative Performed At: [facility] [place], [place] [id number] At: [facility] [place] [phone] :48 HBsAg Comments: DR DAVIS ORDERED CMP,CBCMD,CAROL,RF,TSH,CRP,SED,CCP,LIPIDDR [...] of antibody present. :48 HEP C AB 775305 0.1 (Normal) Comments: DR DAVIS ORDERED CMP,CBCMD,CAROL,RF,TSH,CRP,SED,CCP,LIPIDDR [...] VELLANKIORDEREDCMP,CBCD,CRP,SED,VITD,CCP,HEPBSAB,HEPBSAG,HEPC,CAROL,RF,HEPBCORE IGM,UA Range: 0.358-3.74 :48 VIT D,25 20384 18.0 ng/mL (Abnormal) Comments: DR DAVIS ORDERED CMP,CBCMD,CAROL,RF,TSH,CRP,SED,CCP,LIPIDDR VELLANKIORDEREDCMP,CBCD,CRP,SED,VITD,CCP,HEPBSAB,HEPBSAG,HEPC,CAROL,RF,HEPBCORE IGM,UA Range: 32.0-100.0 Comments: Recent studies consider the lower limit of 32.0 ng/mL to zoraida threshold for optimal health.Everardo HEREDIA. J Nutr. 2004;135(2):317-22. 8-Zjv-083155:10 BILAT SCRN DIGITAL & CAD Radiology Report See Note (Normal) Comments: Exam Number: [id number] MAMMOGRAM, BILATERAL SCREENING DIGITAL AND CAD HISTORYRoutine [...] (MQSA). The mammograms werealso examined with c Roseonlyuter-aided detection software ([email or web address], Trippy.). Reported By: DOMENICA GATES M.D. 7-Aen-530470:09 SPINE,LUMBAR (ROUTINE) Radiology Report See Note (Normal) Comments: Exam Number: [id number] CLINICAL:68-year-old female with low back pain for [...] Report See Note (Normal) Comments: Exam Number: [id number] CLINICAL DATALow back pain, flank pain, right [...] disc disea se involving multiple levels from R7kgbupbp S1. There is degenerative hypertrophic change of [...] Report See Note (Normal) Comments: Exam Number: [id number] DORSAL SPINE Three images of the dorsal [...] middle dorsal spine. Reported By: HEATHER JACKSON 2-Lnt-030154:22 Urine Culture,Comprehensive Comments: Clinical Information: SRC:UR PERFORMED BY: [facility] [id number] Result 1 NG36 (Normal) Comments: No growth in 36 - 48 hours. Urine Culture,Comprehensive Final report (Normal) 2-Cuu-992379:18 PELVIS WITHOUT IV CONTRAST Radiology Report See Note (Normal) Comments: Exam Number: [id number] CT SCANS OF ABDOMEN AND PELVIS HISTORYThe [...] Report See Note (Normal) Comments: Exam Number: [id number] CT SCANS OF ABDOMEN AND PELVIS HISTORYThe [...] the spine. Reported By: DOMENICA GATES M.D. 4-Agb-763029:1 C-REACTIVE PROT 4.05 mg/L (Abnormal) Range: 0.0-3.0 [...] 6.4-8.2 GLU 84 mg/dL (Normal) Range: 70-110 9-Jyd-361454:10 ESR SED RATE 14 mm/h (Normal) Range: 0-30 8-Cap-392078:40 Urinalysis, Office (98229) UA - BILIRUBIN Negative (Normal) UA - BLOOD Non Hemolyzed Trace (Normal) UA - GLUCOSE Negative (Normal) UA - KETONES Negative mg/dL (Normal) UA - LEUKOCYTE ESTERASE Negative (Normal) Comments: aw UA - NITRITE Negative (Normal) UA - PH 6.0 (Normal) UA - PROTEIN Negative mg/dL (Normal) UA - SPECIFIC GRAVITY 1.010 (Normal) URINE UROBILINGN TUNDE TIMED Normal mg/dL (Normal) 6-Ajc-457729:28 URINE CESAR CULTURE-TUNDE COL Comments: PATIENT NOT FASTINGClinical Information: SRC:UR ADD [id number] PERFORMED BY: [facility] [address] [id number] COUNT ([id number]) Result 1 MUG (Normal) Comments: Mixed urogenital flora10,000-25,000 colony forming units per mL Urine Final report (Normal) Culture,Comprehensive 9-Hss-689851:09 Urinalysis, Office (94949) UA - BILIRUBIN Negative (Normal) UA - [...] mg/dL VLDL 16 mg/dL (Normal) Range: 5-40 4-Mlz-369931:59 LQD PAP 201280 Comments: CYTOLOGY INFORMATION:- CLINICAL INFORMATION: POSTMENOPAUSAL- DATE LMP/MENOPAUSE: MENOPAUSE- COLLECTION VIAL: Thin Prep Vial- 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 Endocervical and/or squamous metaplasticcells (endocervical component) are present. COMM . (Normal) DIAGN Comment (Normal) Comments: NEGATIVE FOR INTRAEPITHELIAL LESION AND MALIGNANCY. HPV RFLX Comment (Normal) Comments: The HPV DNA reflex criteria were not met with this specimenresult therefore, no HPV testing was performed. .Performed At: [address] [id number] PAPR Comment (Normal) Comments: The Pap smear is a screening test designed to aid in thedetection of premalignant and malignant conditions of theuterine cervix. It is not a diagnostic procedure andshould not be used as the sole means of detecting cervicalcancer. Both false-positive and false-negative reports dooccur. . PERFORM Comment (Normal) Comments: Diandra Bee, Executive Recruiter (ASCP) 61-Zwg-944199:36 DEXA BONE DENSITY STUDY (HP) Radiology Report See Note (Normal) Comments: Exam Number: [id number] BONE DENSITOMETRY TECHNIQUE Bone densitometry of the [...] within normallimits. Reported By: DOMENICA GATES M.D. 59-Mzt-08390:55 COMP METABOLIC A/G 1.3 {RATIO} (Normal) Range: [...] T PROT 6.1 g/dL (Abnormal) Range: 6.4-8.2 62-Wvw-394526:12 FUNEZ A AB 750025 FUNEZ A TYPE 10 <1:8 (Normal) FUNEZ [...] and its performancecharacteristics have been determined by [employer]. Performance characteristics refer tothe analytical performance of the test. FUNEZ A TYPE 2 <1:8 (Normal) FUNEZ A TYPE 4 <1:8 (Normal) FUNEZ A TYPE 7 <1:8 (Normal) FUNEZ A TYPE 9 <1:8 (Normal) :12 ESR SED RATE 14 mm/h (Normal) Range: 0-30 51-Dgf-494710:12 RA LATEX 6502 7.1 {IU/mL} (Normal) Range: 0.0-13.9 Comments: Performed At: [facility] [place], [place] [id number] At: [facility] [place], [place] [id number] 47-Swz-767343:12 TSH 0.16 {uIU/mL} (Abnormal) Range: 0.34-4.82 70-Cae-365961:21 PELVIS WITH CONTRAST Radiology Report See Note (Normal) Comments: Exam Number: [id number] CT ABDOMEN AND PELVIS WITH CONTRAST. CLINICAL [...] pericardial effusion. Reported By: TODD KENNEDY M.D. 64-Dog-360993:11 ABDOMEN WITH CONTRAST Radiology Report See Note (Normal) Comments: Exam Number: [id number] CT ABDOMEN AND PELVIS WITH CONTRAST. CLINICAL [...] pericardial effusion. Reported By: TODD KENNEDY M.D. 49-Prb-168372:38 MARCUS 45 U/L (Normal) Range: 25-115 43-Kgr-275194:38 CBCD,SMEAR DIFF BAND 1 % (Normal) Range: [...] 47-70 WBC 5.9 K/mm3 (Normal) Range: 4.4-11.0 14-Smx-074469:38 LIPASE 190 U/L (Normal) Range: 114-286 01-Pqv-544290:45 BILAT SCRN DIGITAL & CAD Radiology Report See Note (Normal) Comments: Exam Number: [id number] MAMMOGRAM, BILATERAL SCREENING DIGITAL AND CAD HISTORYRoutine [...] werealso exam ined with computer-aided detection software ([email or web address], Trippy.). Reported By: DOMENICA GATES M.D. 69-Rif-50020:33 CHEST W/WO CONTRAST Radiology Report See Note (Normal) Comments: Exam Number: [id number] CT SCAN OF CHEST HISTORYLung nodule. Consecutive [...] mg/dL VLDL 20 mg/dL (Normal) Range: 5-40 11-Kir-96640:07 TSH 0.40 {uIU/mL} (Normal) Range: 0.34-4.82 Plan [...] itching : [facility] Indication: Vaginal itching Low Back Pain [...] Indication: Chest pain Chest pain : Reviewed Tariff Inspector Letter Indication: Chest pain Osteoarthritis, unspecified osteoarthritis [...] Hypercholesterolemia Planned Observations CBC W/AUTO DIFF WBC (43139)Indication: Prolonged QT interval On: :18 Request METABOLIC PANEL, COMPREHENSIVE (89700)Indication: Prolonged QT interval On: 1-Bey-929769:18 Request VITAMIN B-12 (CYANOCOBALAMIN) (60491)Indication: DEFICIENCY, B-COMPLEX NEC On: :18 Request TSH (87639)Indication: Acquired hypothyroidism On: :17 Request LIPOPROTEIN, BLD, BY NMR (38562)Indication: Hypercholesterolemia On: :17 Request VITAMIN B-12 (CYANOCOBALAMIN) (66141)Indication: DEFICIENCY, B-COMPLEX NEC On: :18 Request LIPID PANEL (28934)Indication: Hypercholesterolemia On: :18 Request CBC W/AUTO DIFF WBC (43495)Indication: Right flank pain On: :17 Request METABOLIC PANEL, COMPREHENSIVE (28552)Indication: Right flank pain On: 6-Vxe-551495:17 Request Vitamin D Hydroxy (04291)Indication: Vitamin D deficiency, unspecified On: :17 Request Urinalysis, Office (93780)Indication: Urinary frequency On: 92-Exf-001947:22 Request VITAMIN B-12 (CYANOCOBALAMIN) (59522)Indication: Other vitamin B12 deficiency anemia On: :28 Request Comments: Lot:[id number]:04/29Dose:1mlRoute:IMSite:r arm Given By:TAVON signed Vitamin D Hydroxy (49827)Indication: Vitamin D deficiency, unspecified On: :42 Request LIPID PANEL (62623)Indication: Hypercholesterolemia On: :42 Request METABOLIC PANEL, COMPREHENSIVE (09905)Indication: Essential hypertension On: :36 Request TSH (35129)Indication: Acquired hypothyroidism On: :36 Request CBC with auto diff (97104)Indication: Abdominal pain, acute, right lower quadrant On: 4-Oit-180258:06 Request METABOLIC PANEL, COMPREHENSIVE (58193)Indication: Abdominal pain, acute, right lower quadrant On: 0-Dds-739545:06 Request Urinalysis, Office (03084)Indication: Low Back Pain (Renamed from LBP (low back pain)) On: 72-Fit-591811:09 Request Vitamin D Hydroxy (88118)Indication: Vitamin D deficiency, unspecified On: 06-Ciz-260601:32 Request METABOLIC PANEL, COMPREHENSIVE (64671)Indication: Essential hypertension On: :31 Request LIPID PANEL (94281)Indication: Hypercholesterolemia On: : Request TSH (77080)Indication: Acquired hypothyroidism On: : Request LIPID PANEL (32675)Indication: Hypercholesterolemia On: :45 Request TSH (82370)Indication: Acquired hypothyroidism On: :44 Request METABOLIC PANEL, COMPREHENSIVE (52831)Indication: Essential hypertension On: :44 Request CBC, PLATELETS & AUT DIFF (64958)Indication: DEFICIENCY, B-COMPLEX NEC On: 8-Nbk-171508:43 Request VITAMIN B-12 (CYANOCOBALAMIN) (30215)Indication: DEFICIENCY, B-COMPLEX NEC On: 8-Msu-598243:43 Request Vitamin D Hydroxy (23422)Indication: Vitamin D deficiency, unspecified On: 7-Rpg-527656:43 Request IRON (51971)Indication: Anemia On: 9-Xlx-991995:42 Request Vitamin D Hydroxy (14328)Indication: Vitamin D deficiency, unspecified On: 0-Xlx-633362:36 Request VITAMIN B-12 (CYANOCOBALAMIN) (64207)Indication: DEFICIENCY, B-COMPLEX NEC On: :35 Request CBC WITH MANUAL DIFF (94307)Indication: DEFICIENCY, B-COMPLEX NEC On: :35 Request METABOLIC PANEL, COMPREHENSIVE (53108)Indication: Essential hypertension On: :35 Request T3, FREE (TRIDOTHYRONINE) (00564)Indication: Acquired hypothyroidism On: :35 Request T4, FREE (22860)Indication: Acquired hypothyroidism On: :35 Request TSH (78004)Indication: Acquired hypothyroidism On: :34 Request TSH (46687)Indication: Acquired hypothyroidism On: 44-Ghn-948907:23 Request Comments: recheck in 6 weeks Metabolic Panel, Basic (39663)Indication: Essential hypertension On: 74-Hni-782800:16 Request TSH (69756)Indication: Acquired hypothyroidism On: 41-Moz-958568:22 Request C-REACTIVE PROTEIN (59099)Indication: right lower quadrant pain On: :51 Request SED RATE ERYTHROCYTE (57123)Indication: right lower quadrant pain On: :51 Request Magnesium (12281)Indication: Leg cramps On: :43 Request CBC WITH MANUAL DIFF (80855)Indication: Edema leg On: :42 Request LIPID PANEL (97684)Indication: Hypercholesterolemia On: :41 Request METABOLIC PANEL, COMPREHENSIVE (42830)Indication: Essential hypertension On: :41 Request VITAMIN B-12 (CYANOCOBALAMIN) (81436)Indication: Other vitamin B12 deficiency anemia On: :41 Request Vitamin D Hydroxy (45569)Indication: Vitamin D deficiency, unspecified On: :41 Request Metabolic Panel, Basic (49259)Indication: Acute renal failure, unspecified acute renal failure type On: :31 Request TSH (43021)Indication: Acquired hypothyroidism On: :30 Request LIPID PANEL (54476)Indication: Hypercholesterolemia On: :39 Request Vitamin D Hydroxy (39113)Indication: Vitamin D deficiency, unspecified On: :39 Request VITAMIN B-12 (CYANOCOBALAMIN) (99895)Indication: Other vitamin B12 deficiency anemia On: :39 Request CBC WITH MANUAL DIFF (69382)Indication: Other vitamin B12 deficiency anemia On: :39 Request METABOLIC PANEL, COMPREHENSIVE (19612)Indication: Essential hypertension On: :39 Request Vitamin D Hydroxy (83611)Indication: Vitamin D deficiency, unspecified On: :37 Request LIPID PANEL (09200)Indication: Hypercholesterolemia On: :37 Request TSH (04004)Indication: Acquired hypothyroidism On: :37 Request CBC WITH MANUAL DIFF (64775)Indication: Essential hypertension On: :39 Request METABOLIC PANEL, COMPREHENSIVE (84593)Indication: Essential hypertension On: :39 Request VITAMIN B-12 (CYANOCOBALAMIN) (99617)Indication: b12 deficiency On: :39 Request LIPID PANEL (53385)Indication: Hypercholesterolemia On: :39 Request Vitamin D Hydroxy (95857)Indication: Vitamin D deficiency, unspecified On: :32 Request VITAMIN B-12 (CYANOCOBALAMIN) (47803)Indication: b12 deficiency On: :32 Request Vitamin D Hydroxy (74309)Indication: Vitamin D deficiency, unspecified On: :32 Request METABOLIC PANEL, COMPREHENSIVE (16187)Indication: Essential hypertension On: :32 Request LIPID PANEL (28078)Indication: Hypercholesterolemia On: :32 Request TSH (58911)Indication: Acquired hypothyroidism On: :32 Request CBC WITH MANUAL DIFF (71056)Indication: Essential hypertension On: :30 Request METABOLIC PANEL, COMPREHENSIVE (79372)Indication: Essential hypertension On: :29 Request VITAMIN B-12 (CYANOCOBALAMIN) (71897)Indication: DEFICIENCY, B-COMPLEX NEC On: :29 Request Vitamin D Hydroxy (89302)Indication: Vitamin D deficiency, unspecified On: :29 Request TSH (20478)Indication: Acquired hypothyroidism On: :29 Request LIPID PANEL (23685)Indication: Hypercholesterolemia On: :29 Request Vitamin B-12 (cyanocobalamin) (79886)Indication: b12 deficiency On: :01 Request CALCIFIDIOL (22953) VIT D 25Indication: Vitamin D deficiency, unspecified On: 35-Cfd-648513:00 Request TSH (29435)Indication: Acquired hypothyroidism On: 95-Jrd-017505:34 Request LIPID PANEL (57398)Indication: Hypercholesterolemia On: 07-Yzy-417544:34 Request Metabolic Panel, Basic (22033)Indication: Essential hypertension On: 60-Gzh-317750:26 Request VITAMIN B-12 (CYANOCOBALAMIN) (89989)Indication: DEFICIENCY, B-COMPLEX NEC On: 08-Vzm-811370:19 Request Vitamin D Hydroxy (69778)Indication: Vitamin D deficiency, unspecified On: 71-Sqm-702890:19 Request VITAMIN D, 1, 25-DIHYDROXY (10056)Indication: Vitamin D deficiency, unspecified On: 2-Toz-736191:19 Request Comments: Vit D [place] Vitamin B-12 (cyanocobalamin) (90872)Indication: b12 deficiency On: 7-Efx-988446:17 Request CBC WITH MANUAL DIFF (59587)Indication: b12 deficiency On: 90-Ibx-782379:17 Request VITAMIN B-12 (CYANOCOBALAMIN) (94135)Indication: b12 deficiency On: 23-Rdp-528232:14 Request VITAMIN B-12 (CYANOCOBALAMIN) (09799)Indication: Vitiligo On: 71-Pmb-398081:37 Request LIPID PANEL (12884)Indication: Hypercholesterolemia On: 61-Jdg-595964:33 Request TSH (19980)Indication: Acquired hypothyroidism On: 40-Tau-106460:32 Request Vitamin D Hydroxy (39023)Indication: Vitamin D deficiency, unspecified On: 51-Zmg-233133:31 Request METABOLIC PANEL, COMPREHENSIVE (21165)Indication: Essential hypertension On: 88-Ypi-696763:42 Request Vitamin D Hydroxy (36538)Indication: Vitamin D deficiency, unspecified On: 81-Ivv-589481:42 Request CAROL (ANTINUCLEAR ANTIBODY) (11556)Indication: Pain in unspecified joint On: 6-Xog-849852:27 Request C-REACTIVE PROTEIN (72732)Indication: Pain in unspecified joint On: :27 Request CBC WITH MANUAL DIFF (08400)Indication: Pain in unspecified joint On: :27 Request CCP ANTIBODY (79435)Indication: Pain in unspecified joint On: 0-Wny-762012:27 Request METABOLIC PANEL, COMPREHENSIVE (30329)Indication: Pain in unspecified joint On: :27 Request RHEUMATOID FACTOR-QUANT (18759)Indication: Pain in unspecified joint On: : Request SED RATE ERYTHROCYTE (47840)Indication: Pain in unspecified joint On: : Request TSH (97444)Indication: Pain in unspecified joint On: : Request SED RATE ERYTHROCYTE (72737)Indication: flank pain On: :35 Request C-REACTIVE PROTEIN (02359)Indication: flank pain On: :35 Request METABOLIC PANEL, COMPREHENSIVE (75830)Indication: flank pain On: :35 Request CBC WITH MANUAL DIFF (80872)Indication: flank pain On: : Request URINE CESAR CULTURE (TUNDE COL COUNT) (63280)Indication: flank pain On: :35 Request Thin prep Pap (33105)Indication: Well woman exam with routine gynecological exam On: :09 Request CBC WITH MANUAL DIFF (72348)Indication: Essential hypertension On: 01-Hwb-185432:02 Request METABOLIC PANEL, COMPREHENSIVE (11822)Indication: Essential hypertension On: 96-Gzl-668402:02 Request LIPID PANEL (67455)Indication: Hypercholesterolemia On: 77-Whz-567210:02 Request METABOLIC PANEL, COMPREHENSIVE (96125)Indication: Essential hypertension On: 79-Fjp-052384:18 Request TSH (84789)Indication: Acquired hypothyroidism On: 23-Gom-226481:18 Request SED RATE ERYTHROCYTE (19797)Indication: Abdominal pain, acute, left upper quadrant On: 51-Iri-498361:09 Request C-REACTIVE PROTEIN (06976)Indication: Abdominal pain, acute, left upper quadrant On: 19-Psj-979996:09 Request CBC WITH MANUAL DIFF (58810)Indication: edema On: 32-Rgh-587192:09 Request METABOLIC PANEL, COMPREHENSIVE (47125)Indication: edema On: 34-Uwz-948592:09 Request TSH (84264)Indication: Acquired hypothyroidism On: 52-Jhl-522412:03 Request CBC WITH MANUAL DIFF (50314)Indication: Abdominal pain, acute, left upper quadrant On: 59-Qmd-299029:22 Request Lipase (87794)Indication: Abdominal pain, acute, left upper quadrant On: 88-Bfe-239657:22 Request Amylase (37475)Indication: Abdominal pain, acute, left upper quadrant On: 30-Jvx-459782:21 Request Thin prep Pap (11566)Indication: Well woman exam with routine gynecological exam On: 62-Xpm-407127:43 Request HEPATIC FUNCTION PANEL (67533)Indication: Hypercholesterolemia On: :52 Request LIPID PANEL (93256)Indication: Hypercholesterolemia On: :52 Request CBC, PLATELETS & AUTO DIFF (34029)Indication: Leukopenia On: 21-Fqp-844267:34 Request Planned Encounters Medical; [facility] 6 Month Fu - On: 03-Jul-2018 13:00 [facility] Fast DO, Kristine A Fast DO, Kristine A Planned Procedures DEXA SCAN AXIAL SKELETON (60698)By: On: 02-Jan-2018 Intent Fast DO, Kristine A Fast DO, Kristine A Comments: mar - RenalBy: Fast DO, On: 02-Jan-2018 Intent Kristine A Fast DO, Kristine A Flu Vaccine (Quadrivalent) 78147Sm: On: 02-Jan-2018 Intent Fast DO, Kristine A Fast DO, Kristine A Comments: Lot #[id number]/30/2019Site-L dltd, IMDose prefilled syringegiven by: Melly reviewed and ABN signed ELECTROCARDIOGRAM, COMPLETE (ECG) On: 28-Aug-2017 Intent ([id number])By: Fast DO, Kristine A Fast Comments: ekg showed normal sinus rhythym, normal axis, no acute st/t wave changes DO, Kristine A SCREENING DIGITAL TOMOSYNTHESIS OF On: 28-Aug-2017 Intent BREAST ([id number])By: Fast DO, Kristine A Fast DO, Kristine A B 12 Injection, 1000 mcg (J3420)By: On: 15-Mar-2017 Intent Visit, Nurse Comments: [id number]/ANOOP Almodovar B 12 Injection, 1000 mcg (J3420)By: On: 22-Feb-2017 Intent Fast DO, Kristine A Fast DO, Kristine A Comments: lot: [id number]: 05/01site/route: L del/IMamt: 1mLVIS signed when applicableCheRAYMUNDO carson Flu Vaccine (Quadrivalent) [id number]: On: 17-Jan-2017 Intent Fast DO, Kristine A [...] (J3420)By: On: 12-Dec-2016 Intent Visit, Nurse Comments: 34001/2018R arm, IM1ml, 1000mcgML, HOPPER FILLER B 12 Injection, 1000 mcg (J3420)By: On: [...] Kristine A Fast DO, Kristine A Comments: B12lot:[id number]:ite:lt deltroute:Imdose:1mlD.Solitario MA B 12 Injection, 1000 mcg (J3420)By: On: 19-Jul-2016 Intent Fast DO, Kristine A Fast DO, Kristine A Comments: lot: [id number]: ite/route: L del/IMamt: 1mlVIS signed when applicableChelsea, PROPERTY ECONOMIST B 12 Injection, 1000 mcg (J3420)By: On: [...] armGiven By:TAVON signed DEXA SCAN AXIAL SKELETON ([id number])By: On: 04-Apr-2016 Intent Fast DO, Kristine A Fast DO, Kristine A MRI LUMBAR SPINE W/O CONTRAST On: 04-Apr-2016 Intent ([id number])By: Fast DO, Kristine A Fast DO, Kristine [...] A ELECTROCARDIOGRAM, COMPLETE (ECG) On: 11-Dec-2015 Intent ([id number])By: Fast DO, Kristine A Fast Comments: ekg [...] MAMMOGRAM, SCREENING, BOTH BREAST On: 21-Apr-2015 Intent ([id number])By: Fast DO, Kristine A Fast DO, Kristine A B 12 Injection, 1000 mcg (J3420)By: On: 21-Apr-2015 Intent Fast DO, Kristine A Fast DO, Kristine A Comments: Lot:[id number]:11/27Dose:1mlRoute:IMSite:r arm Given By:JKMVIS signed B 12 Injection, 1000 mcg (J3420)By: On: 16-Mar-2015 Intent Fast DO, Kristine A Fast DO, Kristine A Comments: lot: [id number]: 06/27site/route: L del/IMamt: 1mLVIS signed when applicableKylee PROPERTY ECONOMIST B 12 Injection, 1000 mcg (J3420)By: On: 09-Feb-2015 Intent Fast DO, Kristine A Fast DO, Kristine A Comments: B12lot:[id number]:06/27site:lt deltoidroute:IMdose:1mlDEMICK, SMA B 12 Injection, 1000 mcg (J3420)By: On: 15-Jan-2015 Intent ZahraHunter erazo Comments: B 12Lot:[id number]:17site:lt deltoidroute:IMdose:.5mlDEMICK, SMA B 12 Injection, 1000 mcg (J3420)By: On: 10-Dec-2014 Intent Fast DO, Kristine A Fast DO, Kristine A Comments: lot [id number] - see ANOOP Mcallister CT - Abdomen & Pelvis (IV Contrast On: 16-Sep-2014 Intent Needed)By: Fast DO, Kristine A Fast DO, Kristine A B 12 Injection, 1000 mcg (J3420)By: On: 16-Sep-2014 Intent Fast DO, Kristine A Fast DO, Kristine A Comments: Lot:[id number]:11.16Route:IMSite:R deltoidDose: 1 mLgiven by: Carlita Ariza PROPERTY ECONOMIST B 12 Injection, 1000 mcg (J3420)By: On: 06-Aug-2014 Intent Fast DO, Kristine A Fast DO, Kristine A Comments: lot:[id number]:05/26route:IMdose:1MLSite:Right Deltoidgiven by: ANS B 12 Injection, 1000 mcg (J3420)By: On: 19-Jun-2014 Intent Visit, Nurse Comments: 4090a3.2016given, see ANOOP Altamirano B 12 Injection, 1000 mcg (J3420)By: On: 22-Apr-2014 Intent SlaSilvia buchanan LPN Comments: lot: [id number]: 4.16Dose: 1,000 mcgSite: l dltdLocation; IMby: Prevnar 13 ([id number])By: Fast DO, On: 24-Mar-2014 Intent Kristine A Fast DO, Kristine A Comments: lot: [id number]: 3/16site/route: L del/IMamt: 0.5mLVIS signed when applicableChels, [facility] Ultrasound - PelvisBy: Fast DO, On: 24-Mar-2014 Intent Kristine A Fast DO, Kristine A B 12 Injection, 1000 mcg (J3420)By: On: 24-Mar-2014 Intent Fast DO, Kristine A Fast DO, Kristine A Comments: lot: [id number]: 4/16site/route: R del/IMamt:1mlVIS signed when applicableCheCox Walnut Lawn B 12 Injection, 1000 mcg (J3420)By: On: 24-Feb-2014 Intent Silvia Burton LPN Comments: lot: [id number]: 4.16Dose: 1,000 mcgSite: l dltdLocation; IMby: B 12 Injection, 1000 mcg (J3420)By: On: 22-Jan-2014 Intent Fast DO, Kristine A Fast DO, Kristine A Comments: lot [id number] 08/2015location L armroute imgiven by - msmith VIS and/or ABN signed B 12 Injection, 1000 mcg (J3420)By: On: 30-Dec-2013 Intent Fast DO, Kristine A Fast DO, Kristine A Comments: lot [id number] 05/2015location L armroute imgiven by - msmithVIS [...] Fast Comments: today DO, Kristine A EKG ([id number])By: Fast DO, Kristine A On: 05-Nov-2013 Intent Fast DO, Kristine A Comments: ekg showed normal sinus rhythym, normal axis, no acute st/t wave changes B 12 Injection, 1000 mcg (J3420)By: On: 05-Nov-2013 Intent Fast DO, Kristine A Fast DO, Kristine A Comments: Lot:[id number]:11/24Dose:1mlRoute:IMSite:enoch armGiven By:TAVON signed PHYSICAL THERAPY EVALUATION On: 18-Oct-2013 Intent ([id number])By: Aquiles Potts CNP SPECIMEN HANDLING/TRANSPORT On: 18-Oct-2013 Intent ([id number])By: Aquiles Potts CNP B 12 Injection, 1000 mcg (J3420)By: On: 11-Oct-2013 Intent Aquiles Potts CNP Comments: Lot:[id number]:11/2013Dose:1mlRoute:IMSite:enoch Pierre By:TAVON signed B 12 Injection, 1000 mcg (J3420)By: On: 18-Sep-2013 Intent Fast DO, Kristine A Fast DO, Kristine A B 12 Injection, 1000 mcg (J3420)By: On: 07-Aug-2013 Intent Fast DO, Kristine A Fast DO, Kristine A Comments: lot: [id number]: ite/route: Enoch carey/IMamt: 1mLVIS signed when applicableChelsea, PROPERTY ECONOMIST MAMMOGRAM, SCREENING, BOTH BREASTS On: 24-Jun-2013 Intent ([id number])By: Fast DO, Kristine A Fast DO, Kristine A B 12 Injection, 1000 mcg (J3420)By: On: 24-Jun-2013 Intent Fast DO, Kristine A Fast DO, Kristine A Comments: Lot:[id number]:04/28Dose:1mlRoute:IMSite:enoch armGiven By:TAVON signed B 12 Injection, 1000 mcg (J3420)By: On: 15-May-2013 Intent Visit, Nurse Comments: Lot:[id number]:01/25Dose:1mlRoute:IMSite:enoch armGiven By:TAVON signed B 12 Injection, 1000 mcg (J3420)By: On: 22-Apr-2013 Intent Fast DO, Kristine A Fast DO, Kristine A Comments: lot: [id number]: 01/25site/route: L deltoid/IMamt: 1mLVIS signed when applicableChelsea, PROPERTY ECONOMIST B 12 Injection, 1000 mcg (J3420)By: On: 21-Mar-2013 Intent Fast DO, Kristine A Fast DO, Kristine A Comments: see flowsheetMegan PNEUM VAC ADLT/IMUMNOSPR, SBC/INTRM On: 18-Feb-2013 Intent ([id number])By: Fast DO Kristine A Fast Comments: Lot: [id number]: 53Ccm61Evv: 0.5mlRoute: IMSite: L deltoidGiven by: ANOOP Moralez DO, Kristine A ADMINISTRATION OF PNEUMOCOCCAL On: 18-Feb-2013 Intent VACCINE (G0009)By: Antwan DO Kristine A Fast DO, Kristine A Eprescribed prescriptions On: 18-Feb-2013 Intent ([id number])By: Deanna Michelle B 12 Injection, 1000 mcg (J3420)By: On: 02-Jan-2013 Intent Deanna Michelle Comments: lot: [id number]: 10/25site/route: L deltoid/IMamt: 1mLVIS signed when applicableChelsea, PROPERTY ECONOMIST B 12 Injection, 1000 mcg (J3420)By: On: [...] 08/24site/route: R deltoid/IMamt: 1mLVIS signed when applicableChelsea, PROPERTY ECONOMIST B 12 Injection, 1000 mcg (J3420)By: On: 28-Aug-2012 Intent Antwan MIX Kristine A Fast DO, Kristine A Comments: Lot #:[id number] date:mount given:1mlRoute: IMSite given: left deltoidGiven by: AYAD Dailey B 12 Injection, 1000 mcg (J3420)By: On: 23-Jul-2012 Intent Fast DO, Kristine A Fast DO, Kristine A Comments: Lot: [id number]: 02/23Amt: 1000mcg/1mlRoute: IMSite: L Deltoid per pt [...] A Fast DO, Kristine A Comments: lot: [id number]:02/23site/route: L deltoid/IMamt: 1ccVIS signed when applicableCheRAYMUNDO carson B 12 Injection, 1000 mcg (J3420)By: On: 09-May-2012 Intent Kylee Castellon Comments: Lot:[id number]:02/2014Dose:1mlRoute:IMSite:L armGiven By:Jameson signed VENOUS DOPPLER LOWER EXTREMITY On: 18-Apr-2012 Intent ([id number])By: Fast DO, Kristine A Fast DO, Kristine A Radiology - Hip - RightBy: Fast DO, On: 06-Apr-2012 Intent Kristine A Fast DO, Kristine A Comments: call results B 12 Injection, 1000 mcg (J3420)By: On: 06-Apr-2012 Intent Lisandra Chilel Comments: Lot #[id number]-41/14Site-left deltoidDose-1 mlgiven by: Omkar Rivera LPN Eprescribed prescriptions On: 06-Apr-2012 Intent (G8553)By: Lisandra Chilel Inhaler Demo ([id number])By: Fast DO, On: 06-Feb-2012 Intent Kristine A Fast DO, Kristine A B 12 Injection, 1000 mcg (J3420)By: On: 06-Feb-2012 Intent Kylee Castellon Comments: Lot:[id number]:Dose:1mlRoute:IMSite:L armGiven By:TAVON signed MAMMOGRAM, SCREENING, BOTH BREASTS On: 06-Feb-2012 Intent ([id number])By: Fast DO, Kristine A Fast DO, Kristine [...] mlRoute: IMSite given: left deltoidGiven by: AMI Alcarazdrilling inspector - Cervical SpineBy: Fast On: 13-Apr-2011 Intent DO, Kristine A Fast DO, Kristine A TD Injection , IM ([id number])By: On: 13-Apr-2011 Intent Lisandra Chilel Comments: received in 2005 B 12 Injection, 1000 mcg (J3420)By: On: 29-Mar-2011 Intent Kateryna Lunsford MD Comments: Lot #[id number]-8.13Site-Left arm, IMDose 0.5mlgiven by:Татьяна B 12 Injection, 1000 mcg (J3420)By: On: 08-Feb-2011 Intent Татьяна Vera LPN Comments: Lot [id number]#Exp-7.13Site-R arm, IMDose 1mlgiven by:Татьяна DXA, BONE DENSITY, AXIAL SKELETON On: 24-Jan-2011 Intent ([id number])By: Lisandra Chilel Comments: post menopausal wihtout estrogen FLU VAC, SPLIT, >3 YEARS, INTRAMUSC On: 24-Jan-2011 Intent ([id number])By: Lisandra Chilel Comments: received at [facility] B 12 Injection, 1000 mcg (J3420)By: On: 21-Dec-2010 Intent Tripp DAVALOS Licha INJECTION, VITAMIN B-12 On: 19-Nov-2010 Intent CYANOCOBALAMIN, UP TO 1000 MCG Comments: Lot:[id number]:04/25Amt:1mlRoute:IMSite:left deltGiven By: ANOOP Sotelo (Special Coverage Instructions Apply. See CIM: 45-4 and MCM: 2049) (J3420)By: Vi Ramirez EKG ([id number])By: Lisandra Chilel On: 05-Nov-2010 Intent Comments: ekg showed normal sinus rhythym, normal axis, no acute st/t wave changes MAMMOGRAM, SCREENING, BOTH BREASTS On: 05-Nov-2010 Intent ([id number])By: Fast DO, Kristine A Fast DO, Kristine [...] 03-Jun-2010 Intent Yasmeen Rivera LPN Comments: Lot #[id number]-left deltoidDose-1 mlgiven by:[facility] IMMUNIZ ADMNIN, 1 VAC, SNGL/COMBO On: 19-Apr-2010 Intent ([id number])By: Yasmeen Rivera LPN Comments: Lot #[id number]-6/28/02Site-left deltoidDose- 0.85mlgiven by:[facility] [place] ([id number])By: Miguel On: 19-Apr-2010 Intent Yasmeen DAVALOS B 12 Injection, 1000 mcg (J3420)By: On: 19-Apr-2010 Intent Hluszti HOPPER FILLER, Yasmeen B 12 Injection, 1000 mcg (J3420)By: On: 22-Mar-2010 Intent Long HOPPER FILLER, Татьяна L Comments: Lot #[id number]-10/22Site-L arm, IMDose [...] Rivera LPN Comments: Lot #[id number]-07/22Site-left deltoidDose-1 mlgiven by:[facility] FLU VAC, SPLIT, >3 YEARS, INTRAMUSC On: 30-Dec-2009 Intent ([id number])By: Lisandra Chilel Comments: Lot #[id number]-7/11Site-left deltoidgiven by:[facility] B 12 Injection, 1000 mcg (J3420)By: On: 30-Dec-2009 Intent Lisandra Chilel Comments: Lot #[id number]-07/22Site-right deltoidDose-1 mlgiven by:[facility] Renal Duplex ScanBy: Fast DO, Kristine On: 30-Dec-2009 Intent A Fast DO, Kristine A IMMUNIZ ADMNIN, 1 VAC, SNGL/COMBO On: 30-Dec-2009 Intent ([id number])By: Lisandra Chilel B 12 Injection, 1000 mcg (J3420)By: On: 14-Dec-2009 Intent Shayna Harris Comments: Lot:[id number]:07/22Dose:1000mcg/1mlRoute:IMSite:right deltoid Given by: AYAD Gil B 12 Injection, 1000 mcg (J3420)By: On: 26-Nov-2009 Intent Phyllis Escobar RN Comments: documented in flowsheet B 12 Injection, 1000 mcg (J3420)By: On: 19-Oct-2009 Intent Yasmeen Rivera LPN Comments: Lot #[id number]-2/Site-left deltoidDose-1 mlgiven by:[facility] B 12 Injection, 1000 mcg (J3420)By: On: 13-Oct-2009 Intent Shayna Harris Comments: Lot:[id number]:2/12Dose:1000mcg/1mlRoute:imSite:right sideGiven by: AYAD Gil B 12 Injection, 1000 mcg (J3420)By: On: 06-Oct-2009 Intent Fast DO, Kristine A Fast DO, Kristine A Comments: Lot #[id number]-2Site-right deltoidDose- 1 mlgiven by:[facility] MRI - BrainBy: Fast DO, Kristine [...] do this week and call ressults EKG ([id number])By: Fast DO, Kristine A On: 17-Dec-2008 Intent Fast DO, Kristine A Comments: ekg showed normal sinus rhythym, normal axis, no acute st/t wave changes MAMMOGRAM, SCREENING, BOTH BREASTS On: 17-Dec-2008 Intent ([id number])By: Fast DO, Kristine A Fast DO, Kristine A MRI - Lumbar SpineBy: Fast DO, On: 17-Dec-2008 Intent Kristine A Fast DO, Kristine A FLU VAC, SPLIT, >3 YEARS, INTRAMUSC On: 17-Dec-2008 Intent ([id number])By: Lisandra Chilel Comments: Lot #:[id number] date:mount given:0.5mlRoute: IMSite given:left deltoidGiven by: AYAD Dailey ADMINISTRATION OF INFLUENZA VIRUS On: 17-Dec-2008 Intent VACCINE (G0008)By: Lisandra Chilel CT - Abdomen & Pelvis Stone On: 18-Aug-2008 Intent ProtocolBy: Fast DO, Kristine A Fast Comments: stat -call results DO, Kristine A Radiology - Chest- PA and LatBy: On: 24-Mar-2008 Intent Fast DO, Kristine A Fast DO, Kristine A Spirometry ([id number])By: Antwan DO, On: 24-Mar-2008 Intent Kristine A Fast DO, Kristine A Comments: good effort and curve minimal decrease small airways ADMINISTRATION OF PNEUMOCOCCAL On: 17-Dec-2007 Intent VACCINE (G0009)By: Fast DO, Kristine A Fast DO, Kristine A PNEUM VAC ADLT/IMUMNOSPR, SBC/INTRM On: 18-Dec-2007 Intent ([id number])By: Fast DO, Kristine A Fast Comments: Lot #:[id number] date:08/19Amount given:0.5mlRoute: IMSite given:left deltGiven by: AYAD Dailey DO, Kristine A MAMMOGRAM, SCREENING, BOTH BREASTS On: 17-Dec-2007 Intent ([id number])By: Fast DO, Kristine A Fast Comments: end of feb DO, Kristine A DXA, BONE DENSITY, AXIAL SKELETON On: 31-Oct-2007 Intent ([id number])By: Fast DO, Kristine A Fast DO, Kristine A Echo CompleteBy: Fast DO, Kristine A On: 25-Jul-2007 Intent Fast DO, Kristine A Bio Z ([id number])By: Fast DO, Kristine A On: 25-Jul-2007 Intent Fast DO, Kristine A Comments: good cardiac output and no excesive gfluid EKG ([id number])By: Fast DO, Kristine A On: 25-Jul-2007 Intent Fast DO, Kristine A Comments: ekg showed normal sinus rhythym, normal axis, no acute st/t wave changes CT - Abdomen & Pelvis (IV Contrast On: 11-Jul-2007 Intent Needed)By: Adrianna Morgan DO MAMMOGRAM, SCREENING, BOTH BREASTS On: 27-Mar-2006 Intent ([id number])By: Adrianna Morgan DO Planned Medications Vitamin B-12 [...] MCG/ML Injection Solution Ordered: 22-Apr-2014 Pending Slarb HOPPER FILLER, Silvia Vitamin B-12 1000 MCG/ML Injection Solution Ordered: 24-Mar-2014 Pending Fast DO, Kristine A Fast DO, Kristine A Vitamin B-12 1000 MCG/ML Injection Solution Ordered: 24-Feb-2014 Pending Slarb HOPPER FILLER, Silvia Vitamin B-12 1000 MCG/ML Injection Solution [...] MCG/ML Injection Solution Ordered: 05-Nov-2015 Pending [place], [place] Vitamin B-12 1000 MCG/ML Injection Solution Ordered: [...] online - Detail Indication: [facility] : Patient Instructions Indication: [facility] Wellness Physical Hip pain, right : How [...] / tylenol and - more mobile on Acceptdic days- cleo notices a difference Encounter Diagnosis: [...] went well- she saw Dr Mckeon in [place] [facility] for pain management - had inje [...] emotional problems . Note for Physical exam: [facility] Wellness Physical- her hip bursitis better can [...] do a lot of walking Encounter Diagnosis: [facility] Wellness Physical, Nonsmoker, BMI 37.0-37.9, adult, Hip [...] procedure: ( End: 10-Dec-2014 21:34 / at [facility] with dr Mahesh stokes) . There have been no problems with general anesthesia or blood/blood products. Prosthetics include: dentures (partial). Note for Preoperative evaluation: [facility]- having [...] scleroderma, leukopenia). Note for Follow up for cop breaker tim medical issues: Pt had colonoscopy [...] scleroderma, leukopenia). Note for Follow up for cop breaker tim medical issues: No routine labs [...] scleroderma, leukopenia). Note for Follow up for cop breaker itm medical issues: still having right lateral flank [...] scleroderma, leukopenia). Note for Follow up for cop breaker tim medical issues: sdhe is losing [...] scleroderma, leukopenia). Note for Follow up for cop breaker tim medical issues: feels well other [...] scleroderma, leukopenia). Note for Follow up for cop breaker tim medical issues: No routine labs [...] medical issues: she saw Jessee Stringer at [facility] for her groin pain- - said [...] rare occ that she takes at [facility] but doesnt know accuracy, [ADDITIONAL REASON] Follow [...]
--- OUTSIDE RECORDS SUMMARY | 2018-06-01 23:50 | XMS RPT_ITS | Continuity of Care Document ---
:1940 Author Organization [facility] Address [address] [facility] [address] [place] [address] Phone Care Team Providers Name Role Phone [...] DO, Kristine A Start : 02-Mar-2016 Active Comments:[facility] report#[id number], df approved and given to pt-jf 03/02/16 [...] cap daily (100 MG) Active Vitamin D3 05314 UNIT Oral Capsule 1 (one) Capsule once [...] : 11-Jul-2007 End : 08-Aug-2007 Discontinued Drisdol 79126 UNIT Oral Capsule 1 (one) Capsule once [...] Chilel End : 08-Aug-2007 Discontinued VITAMIN D, 20701HCUL (Oral Capsule) 1 cap q week (05483 UNIT) Start : 27-Mar-2013 End : 27-Mar-2013 Discontinued Comments:This order discontinued per [employer]. VITAMIN D, 79726SRYW (Oral Capsule) 1 cap Capsule q week [...] Comments: See Note; NOTES: [facility] Imaging Services [address] [place] [address] Kidney and Bladder MR#: [id number] Acct: [id number] Name: VIRGINIA URRUTIA Rep #: [id number] : 1940 F 77 From: Doug Sinclair DO PCP: Kristine Davis DO Status: REG CLI Study: Kidney and Bladder Date of Exam: 01/11/18 Exam# [id number] Ordering Dr: Kristine Davis DO STUDY: RENAL [...] Doug Sinclair DO at 23:00 EDT Tel [phone], Service support , CC: Kristine Davis DO Country Manager: Signed 05-Oct-2017 TXT - Blood Flow Screening Result: Comments: See Note; NOTES: [facility] Cardiovascular Services [address] [facility] [place] [address] 10/02/17 0928 MR#: [id number] Acct: [id number] Name: VIRGINIA URRUTIA Rep #: [id number] [...] DO Date Dictated: 10/02/1728 Date Transcribed: 10/05/171656 Country Manager: Signed 02-Oct-2017 SCREENING MAMM (CAD), BILAT Result: Comments: See Note; NOTES: [facility] Imaging Services [address] [place] [address] SCREENING MAMM (CAD), BILAT MR#: [id number] Acct: [id number] Name: VIRGINIA URRUTIA Rep #: [id number] : 1940 F 76 From: Noel Avitia MD PCP: Kristine Davis DO Status: REG CLI Study: SCREENING MAMM (CAD), BILAT Date of Exam: 10/02/17 Exam# [id number] Ordering Dr: Kristine Davis DO MAMMOGRAPHY - [...] Service support , CC: Kristine Davis DO Country Manager: Signed 14-Sep-2016 Venous Duplex Lower Extremity Result: Comments: See Note; NOTES: [facility] Cardiovascular Services [address] [place] [address] Venous Duplex US, Unilateral 09/14/16 1558 MR#: [id number] Acct: [id number] Name: VIRGINIA YEH Rep #: [id number] : 1940 75 From: Johan Ortega MD [...] Date Dictated: 09/14/16 1558 Date Transcribed: 09/14/16 1285 Country Manager: Signed 23-Aug-2016 Re-Evaluation - PT (1) Result: Comments: See Note; NOTES: [facility] Physical Therapy [facility] [address] [facility] [place] [address] Fax REEVALUATION / MEDICARE RECERTI MATTHIAS Zamora 4d PHYSICAL THERAPY MR#: [id number] Acct: [id number] Name: VIRGINIA URRUTIA Rep #: [id number] : 1940 75 From: Humberto Aguilar DPT, OCS, CSCS Referring DrDav: OUT OF TOWN DOCTOR Status : REG RCR Insurance: [employer] Out of [facility] Doctor, It has been my pleasure to [...] do not hesitate to contact me at [phone] by phone or if you have questions [...] - PT Result: Comments: See Note; NOTES: [facility] Physical Therapy [facility] [address] [facility]. [address] [place] [address] Fax REHABILITATION SERVICES INITIAL EVALUATION MR#: [id number] Acct: [id number] Name: VIRGINIA URRUTIA Rep #: [id number] : 1940 75 From: Humberto Aguilar DPT, OCS, CSCS Referring : OUT OF TOWN DOCTOR Status: REG RCR Insurance: AE [facility] Patient's Visit Information VIRGINIA URRUTIA is a 75 year old F referred to Physical Therapy by Out [facility] Doctor with a diagnosis of L knee [...] to be FAXED BACK to us at [phone] for Medica re purposes. Please let me know if there are questions or concerns regarding this plan of care. Physician Signature: Date: <Elec tronically signed by Humberto Aguilar DPT, OCS, CSCS> 07/29/16 5075 CC: Kristine Davis DO; OUT OF TOWN DOCTOR EBG Signed For Medicare only, by signing this I certify the pl an of care. Physicians Signature Date 19-Apr-2016 Emergency Department Summary Result: Comments: See Note; NOTES: [facility] Medical Records Department [address] [place] [address] Emergency Department Summary MR#: [id number] Acct: [id number] Name: VIRGINIA URRUTIA Rep #: [id number] : 1940 75 From: Byron Harris MD PCP: Kristine Davis DO Status: [facility] ER DATE OF SERVICE: 04/14/2016 METHOD OF [...] Angel Douglas C: Kristine Davis DO T: [facility] JOB: [id number] 04/19/16 1814 <Electronically signed by Byron Harris MD> Date Byron Harris MD Cosigner Signature (If Indicated): Date CC: Kristine Davis DO Date Dictated: 04/15/1634 Date Transcrib ed: 04/15/1634 Country Manager: Signed 15-Apr-2016 Discharge Instruction Result: Comments: See Note; NOTES: [facility] Medical Records Department [address] [place] [address] Discharge Instruction 04/14/162306 MR#: [id number] Acct: [id number] Name: VIRGINIA URRUTIA Rep #: [id number] : 1940 75 From: Byron Harris MD [...] your Primary Care Provider. Call [facility] ([phone]) or report to the closest Emergency Room. Call 911 if necessary. 04/15/16 0118 &#6 0;Electronically signed by Byron Harris MD> Date Byron Harris MD Cosigner Signature (If Indicated): Date CC: Kristine Davis DO 14-Apr-2016 Venous Duplex Imag/Limited/Uni Result: Comments: See Note; NOTES: [facility] Imaging Services [address] [place] [address] Verdana 4d Venous Duplex Imag/Limited/Uni MR#: [id number] Acct: [id number] Name: RHONA URRUTIA Rep #: [id number] : 1940 F 75 From: Doug Sinclair DO PCP: Kristine Davis DO Status: REG ER Study: Venous Duplex Imag/Limited/Uni Date of Exam: 04/14/16 Exam# [id number] Ordering Dr: Byron Harris MD STUDY: VENOUS [...] Doug Sinclair DO at 23:15 EST Tel [phone], Service support [phone], CC: Kristine Davis DO; Byron Harris MD Country Manager: Signed 13-Apr-2016 Spine Lumbar (Routine) Result: Comments: See Note; NOTES: [facility] Imaging Services [address] [place] [address] Verdana 4d Spine Lumbar (Routine) MR#: [id number] Acct: [id number] Name: VIRGINIA URRUTIA p #: [id number] : 1940 F 75 From: Tiara Parsons MD PCP: Kristine Davis DO Status: REG CLI Study: Spine Lumbar (Routine) Date of Exam: 04/13/16 Exam# [id number] Ordering Dr: Kristine Davis DO STUDY: MRI [...] MD at 11:48 EST , Service support [phone], CC: Kristine Davis DO Country Manager: Signed 12-Apr-2016 PT D/C Summary (1) Result: Comments: See Note; NOTES: [facility] Physical Therapy [address] [place] [address] Fax REHABILITATION SERVICES DISCHAR SUMMARY MR#: [id number] Acct: [id number] Name: VIRGINIA URRUTIA Rep #: [id number] : 1940 75 From: Humberto Aguilar DPT, OCS, CSCS Referring : Kristine Davis DO Status: REG RCR [facility] - PT D/C Summary It has been my pleasure to treat VIRGINIA URRUTIA under orders from Kristine Davis DO, for the diagnosis of R hip pain for a total of 12 visit(s). Discharge Date: Please see the [facility] information for a summary of their discharge [...] help or hurt it. Will be in [place] in May and will have L TKA [...] please feel free to call me at [phone]. Thank yo sridevi for the referral of this patient. Sincerely, Humberto Aguilar DPT, OC <Electronically signed by Humberto Aguilar DPT, OCS, CSCS> 04/12/16 1621 CC: Kristine Davis DO EBG Signed 12-Apr-2016 Dexa Bone Density Study (HP) Result: Comments: See Note; NOTES: [facility] Imaging Services [address] [place] [address] Verdana 4d Dexa Bone Density Study () MR#: [id number] Acct: [id number] Name: ENE URRUTIA Rep #: [id number] : 1940 F 75 From: Dashawn Rowe MD PCP: Kristine Davis DO Status: REG CLI Study: Dexa Bone Density Study () Date of Exam: 04/12/16 Exam# [id number] Ordering Dr: Magallanes DO STUDY: DUAL ENERGY [...] osteopenic as outlined below according to World Rhoan Organization (WHO) criteria with a moderate fracture [...] Dashawn Rowe MD at 14:32 EST Tel [phone], Service support [phone], CC: Kristine Davis DO Country Manager: Signed 10-Mar-2016 Inital Evaluation (1) - PT Result: Comments: See Note; NOTES: [facility] Physical Therapy [facility] [address] [place] [address]. [address] [place] [phone] Fax REHABILITATION SERVICES INITIAL EVALUATION MR#: [id number] Acct: [id number] Name: VIRGINIA URRUTIA Rep #: [id number] : 1940 75 From: Jennifer Gongora DPT Referring DrDav: Kristine Davis DO Status: REG RCR [facility] VIRGINIA URRUTIA is [...] to be FAXED BACK to us at [phone] for Medicare purposes. Please let me know if there are questio ns or concerns regarding this plan of care. Physician Signature: Date: <Electronically signed by Jennifer Gongora DPT> 1243 CC: Kristine Davis DO ELR Signed For Medicare only, by signing this I certify the plan of care. Physicians Signature Date 17-Dec-2015 Echocardiogram Complete Result: Comments: See Note; NOTES: [facility] Cardiovascular Services [address] [place] [address] Echo Complete 12/17/15 1401 MR#: [id number] Acct: [id number] Name: VIRGINIA URRUTIA Rep #: [id number] : 1940 75 From: Chicho Bahena MD [...] Date Dictated: 12/17/15 1401 Date Transcribed: 12/17/151700 Country Manager: Signed 11-Dec-2015 Bilat Scrn Digital AND CAD Result: Comments: See Note; NOTES: [facility] Imaging Services [address] [place] [address] Verdana 4d Bilat Scrn Digital AND CAD MR#: [id number] Acct: [id number] Name: VIGRINIA URRUTIA Rep #: [id number] : 1940 F 75 From: Dashawn Rowe MD PCP: Kristine Davis DO Status: REG CLI Study: Bilvictor m [place] Digital AND CAD Date of Exam: 12/11/15 Exam# [id number] Ordering Dr: Kristine Davis DO MAMMOGRAPHY - [...] delay biopsy of a clinically suspicious abnormality. [id number] Electronically Signed: Dashawn Rowe MD at 8:47 EDT Tel [phone], Service support [phone], CC: Kristine Davis DO Country Manager: Signed 03-Jan-2015 Emergency Department Summary Result: Comments: See Note; NOTES: [facility] Medical Records Department [address] [place] [address] Emergency Department Summary MR#: [id number] Acct: [id number] Name: VIRGINIA URRUTIA Mook Rep #: [id number] : 1940 74 From: Ivette Cline PCP: [...] Angel Grossman C: Kristine Davis DO T: [facility] JOB: [id number] 01/03/15 6915 <Electronically signed b angle Cline > Date Ivette Cline Cosigner Signature (If Indicated): Date CC: Kristine Davis DO Date Dictated: 12/27/141108 Date Transcribed: 12/27/141108 Country Manager: Signed 27-Dec-2014 Discharge Instruction Result: Comments: See Note; NOTES: [facility] Medical Records Department [address] [place] [address] Discharge Instruction 12/27/14 1100 MR#: [id number] Acct: [id number] Name: VIRGINIA URRUTIA Rep #: [id number] : 1940 74 From: Ivette Cline PCP: [...] problems, contact your doctor. Call [facility] ([phone]) or report to the closest Emergency Room. Call 911 if necessary. 12/27/141105 <Electronically signed by Ivette Cline > Date Ivette Cline Cosigner Signature (If Indicated): Date _ CC: Kristine Davis DO 27-Dec-2014 Spine Cervical without Contras Result: Comments: See Note; NOTES: [facility] Imaging Services [address] [place] [address] Verdana 4d Spine Cervical without Contras MR#: [id number] Acct: [id number] Na me: VIRGINIA URRUTIA Rep #: [id number] : 1940 F 74 From: Doug Sinclair DO PCP: Antwan DOKristine Status: REG ER Study: Spine Cervical without Contras Date of Exam: 12/27/14 Exam# [id number] Ordering Dr : Ivette Cline STUDY: CT [...] Doug Sinclair DO at 10:36 EDT Tel [phone], Service suppo rt [phone], CC: Ivette Cline; Kristine Davis DO Country Manager: Signed 23-Dec-2014 Emergency Department Summary Result: Comments: See Note; NOTES: [facility] Medical Records Department [address] [place] [address] Emergency Department Summary MR#: [id number] Acct: [id number] Name: VIRGINIA URRUTIA Rep #: [id number] : 1940 74 From: Se Dawkins MD PCP: Kristine Davis DO Status: [facility] ER DATE OF SERVICE: 12/23/2014 CHIEF COMPLAINT: [...] acute. Se Dawkins MD T: [facility] JOB: [id number] 12/23/14799 <Electronically signed by Se Dawkins MD> Date Se Dawkins MD Cosigner Signature (If Indicated): Date CC: Kristine Davis DO Date Dictated: 12/23/14707 Date Transcribed: 12/23/14707 Country Manager: Signed 23-Dec-2014 Discharge Instruction Result: Comments: See Note; NOTES: [facility] Medical Records Department [address] [place] [address] Discharge Instruction 12/23/14704 MR#: [id number] Acct: [id number] Name: VIRGINIA URRUTIA Rep #: [id number] : 1940 74 From: Se Dawkins MD [...] problems, contact your doctor. Call [facility] ([phone]) or r aartirt to the closest Emergency Room. Call 911 if necessary. 12/23/14705 <Electronically signed by Se Dawkins MD> Date Se collins MD Cosigner Signature (If Indicated): Date CC: Kristine Davis DO 10-Dec-2014 ELECTROCARDIOGRAM, COMPLETE (ECG) (20250) Result: [MEASUREMENTS ANALYSIS] Date of Test: 12/10/2014 10:23:24; Heart Rate: 91; MD Interval: 144; QRS: 96; QT Interval: 372; Corrected QT Interval (QTc): 426; P Wave [place]: 49; QRS Wave [place]: 35; T Wave [place]: 30; Blood Pressure: 0/0 [ECG DIAGNOSTIC STATEMENTS] Date of Test: 12/10/2014 10:23:24; Summary: Sinus Rhythm Low voltage in limb leads. ABNORMAL 22-Sep-2014 Abdomen/Pelvis WITH Contrast Result: Comments: See Note; NOTES: [facility] Imaging Services [address] [place] [address] CAT Scan Report MR#: [id number] Acct: [id number] Name: VIRGINIA URRUTIA Rep #: [id number] : 1940 F 73 From: Rey Rojo MD PCP: Kristine Davis DO Status: REG CLI Study: Abdomen/Pelvis WITH Contrast Date of Exam: 09/22/14 Exam# [id number] Ordering Dr: Kristine Davis DO STUDY : [...] Rojo MD at 16:58 EDT Te l [phone], Service support [phone], CC: Kristine Davis DO Country Manager: Signed 31-Mar-2014 Transvaginal Non- Result: Comments: See Note; NOTES: [facility] Imaging Services [address] [place] [address] Ultrasound Report MR#: [id number] Acct: [id number] Name: VIRGINIA URRUTIA Rep #: [id number] : 1940 F 73 From: Dashawn Rowe MD PCP: Kristine Davis DO Status: REG CLI Study: Transvaginal Non- Date of Exam: 03/31/14 Exam# [id number] Ordering Dr: Kristine Davis DO STUD Y: [...] Dashawn Rowe MD at 13:55 EST Tel [phone], Service support [phone], F ax [phone] CC: Kristine Davis DO Country Manager: Signed 31-Mar-2014 Pelvic (Non ) Result: Comments: See Note; NOTES: [facility] Imaging Services [address] [place] [address] Ultrasound Report MR#: [id number] Acct: [id number] Name: VIRGINIA URRUTIA Rep #: [id number] : 1940 F 73 From: Dashawn Rowe MD PCP: Kristine Davis DO Status: REG CLI Study: Pelvic (Non ) Date of Exam: 03/31/14 Exam# [id number] Ordering Dr: Kristine Davis DO STUDY: U [...] Dashawn Rowe MD at 13:55 EST Tel [phone], Service support [phone], Fax CC: Kristine Davis DO Country Manager: Signed 22-Jan-2014 Bilvictor m [place]ar[place] Digital & CAD Result: Comments: See Note; NOTES: [facility] Imaging Services [address] [place] [address] Breast Imaging Report MR#: [id number] Acct: [id number] Name: VIRGINIA URRUTIA Rep #: [id number] : 1940 F 73 From: Dashawn Rowe MD PCP: Kristine Davis DO Status: REG CLI Exam# [id number] Ordering Dr: Kristine Davis DO MAMMOGRAPHY - [...] Dashawn Rowe MD at 14:49 EST Tel [phone], Ser vice support [phone], CC: Kristine Davis DO Country Manager: Signed 07-Nov-2013 L/S Spine Min 4 Views Result: Comments: See Note; NOTES: [facility] Imaging Services [address] [place] [address] Radiology Report MR#: [id number] Acct: [id number] Name: VIRGINIA URRUTIA Rep #: [id number] : 1940 F 73 From: Tod Lamas MD PCP: Kristine Davis DO Status: REG CLI Study: L/S Spine Min 4 Views Date of Exam: 11/07/13 Exam# [id number] Ordering Dr: Kristine Davis DO STUDY: X-RA [...] at 18:52 EDT Tel , Service support [phone], CC: Kristine Davis DO Country Manager: Signed 07-Nov-2013 Thoracic Spine 3 Views Result: Comments: See Note; NOTES: [facility] Imaging Services [address] [place] [address] Radiology Report MR#: [id number] Acct: [id number] Name: VIRGINIA URRUTIA Rep #: [id number] : 1940 F 73 From: Tod Lamas MD PCP: Kristine Davis DO Status: REG CLI Study: Thoracic Spine 3 Views Date of Exam: 11/07/13 Exam# [id number] Ordering Dr: Kristine Davis DO STUDY: X-R [...] at 17:07 EDT Tel , Service support [phone], CC: Kristine Davis DO Country Manager: Signed 05-Nov-2013 Abdomen/Pelvis without Cont Result: Comments: See Note; NOTES: [facility] Imaging Services [address] [place] [address] CAT Scan Report MR#: [id number] Acct: [id number] Name: VIRGINIA URRUTIA Rep #: [id number] : 1940 F 73 From: Dashawn Rowe MD PCP: Kristine Davis DO Status: REG CLI Study: Abdomen/Pelvis without Cont Date of Exam: 11/05/13 Exam# [id number] Ordering Dr: Kristine Davis DO STUD Y: [...] Dashawn Rowe MD at 15:39 EDT Tel [phone], Service supp ort [phone], CC: Kristine Davis DO Country Manager: Signed 07-Oct-2013 Kidney and Bladder Result: Comments: See Note; NOTES: [facility] Imaging Services [address] [place] [address] Ultrasound Report MR#: [id number] Acct: [id number] Name: VIRGINIA URRUTIA Rep #: [id number] : 1940 F 72 From: Brook Cummings DO PCP: Kristine Davis DO Status: REG CLI Study: Kidney and Bladder Date of Exam: 10/07/13 Exam# [id number] Ordering Dr: Aquiles Potts STUDY: RENAL ULTRAS [...] , CC: Aquiles Potts; Kristine Davis DO Country Manager: Signed Immunization Name Dates Details Influenza (3 years and up) on: 17-Dec-2008 Comments: Lot #:[id number] date:mount given:0.5mlRoute: IMSite given:left deltoidGiven by: AYAD [...] 0.00 cm Results Date Description Value Details 90-Ysx-702413:12 ANGTENSIN 1-CONVRT ENZYM Comments: PATIENT NOT FASTINGPERFORMED BY: ieCrowd70 [facility] [id number] BY: [employer] [id number] ([address]46) YOSEF 30 U/L (Normal) Range: 14-82 20-Lpz-890734:12 CCP ANTIBODY (99169) Comments: PATIENT NOT FASTINGPERFORMED BY: ieCrowd70 [facility] [id number] BY: [employer] [id number] CCP Antibodies IgG/IgA 8 {units} (Normal) Range: 0-19 Comments: Negative <20 Weak positive 20 - 39 Moderate positive 40 - 59 Strong positive >59 67-Qas-589392:12 CAROL (ANTINUCLEAR ANTIBODY) Comments: PATIENT NOT FASTINGPERFORMED BY: [address] [id number] BY: [address] [id number] (67281) CAROL Direct Negative (Normal) 78-Rmq-426504:12 RHEUMATOID FACTOR-QUANT Comments: PATIENT NOT FASTINGPERFORMED BY: [address] [id number] BY: [address] [id number] (94454) RA Latex Turbid. <10.0 {IU/mL} (Normal) Range: 0.0-13.9 52-Zgg-407233:12 SED RATE ERYTHROCYTE Comments: PATIENT NOT FASTINGPERFORMED BY: [address] [id number] BY: [address] [id number] (58661) Sedimentation Rate-Westergren 15 mm/h (Normal) Range: 0-40 38-Gna-895507:12 C-REACTIVE PROTEIN Comments: PATIENT NOT FASTINGPERFORMED BY: [address] [id number] BY: [address] [id number] (80993) C-Reactive Protein, Quant 2.9 mg/L (Normal) Range: 0.0-4.9 36-Zvy-131872:12 CBC, PLATELETS & AUT DIFF Comments: PATIENT NOT FASTINGPERFORMED BY: [address] [id number] BY: [address] [id number] (68992) Immature Grans (Abs) 0.0 {x10E3/uL} (Normal) Range: [...] 3.77-5.28 WBC 7.8 {x10E3/uL} (Normal) Range: 3.4-10.8 20-Irc-291590:12 VITAMIN B-12 Comments: PATIENT NOT FASTINGPERFORMED BY: [employer] Esvldt5449 [facility] [id number] BY: [employer] [id number] (CYANOCOBALAMIN) (72416) Vitamin B12 579 pg/mL (Normal) Range: 232-1245 86-Hys-42067:31 LIPID PANEL (26834) Comments: PATIENT WAS FASTINGPERFORMED BY: [facility]Ntjlmj3185 [facility] [id number]; appt 01/02 LDL/HDL Ratio 1.9 {ratio} (Normal) [...] be changing to: Male Female 40 - 642126 50 - 646687 Triglycerides 145 mg/dL (Normal) Range: 0-149 Cholesterol, Total 240 mg/dL (Abnormal) Range: 100-199 75-Hub-63188:31 METABOLIC PANEL, COMPREHENSIVE Comments: PATIENT WAS FASTINGPERFORMED BY: [facility]Byfmov5401 [facility] [id number] (51724) ALT (SGPT) 16 [iU]/L (Normal) Range: 0-32 [...] 8-27 Glucose 98 mg/dL (Normal) Range: 65-99 73-Xjp-851023:13 METABOLIC PANEL, BASIC Comments: PATIENT NOT FASTINGPERFORMED BY: SharelookFres[facility]6370 [facility] [id number]; review on 01/02 (75687) Calcium 9.9 mg/dL (Normal) Range: 8.7-10.3 Carbon [...] 8-27 Glucose 98 mg/dL (Normal) Range: 65-99 08-Vtj-205045:38 GGT (Gamma Glutamyl Comments: PATIENT NOT FASTINGPERFORMED BY: [facility]6370 [facility] [id number] Transferase) (02628) GGT 20 [iU]/L (Normal) Range: 0-60 16-Izg-274409:38 Alkaline Phosphatase (75058) Comments: PATIENT NOT FASTINGPERFORMED BY: [address] [id number] Alkaline Phosphatase 131 [iU]/L (Abnormal) Range: 39-117 37-Wfq-033367:38 THYROXINE FREE (86774) Comments: PATIENT NOT FASTINGPERFORMED BY: [address] [id number] T4,Free(Direct) 1.92 ng/dL (Abnormal) Range: 0.82-1.77 78-Dkq-356542:38 FREE TRIDOTHYRONINE (T3) (36608) Comments: PATIENT NOT FASTINGPERFORMED BY: [address] [place] [id number] Triiodothyronine,Free,Serum 2.4 pg/mL (Normal) Range: 2.0-4.4 31-Kmg-118494:38 VITAMIN B-12 (CYANOCOBALAMIN) Comments: PATIENT NOT FASTINGPERFORMED BY: [facility] Cuycop5733 [facility] [place] [id number] (93813) Vitamin B12 665 pg/mL (Normal) Range: 232-1245 95-Kkj-70575:06 VITAMIN B-12 (CYANOCOBALAMIN) Comments: PATIENT NOT FASTINGPERFORMED BY: [facility] Suwhhz8667 [facility] [place] [id number] (77573) Vitamin B12 1301 pg/mL (Abnormal) Range: 232-1245 8-Laq-714919:25 Metabolic Panel, Comprehensive Comments: PATIENT NOT FASTINGPERFORMED BY: LabF[facility]6370 [facility] [id number]; review on 08/28 (68472) ALT (SGPT) 10 [iU]/L (Normal) Range: 0-32 [...] 8-27 Glucose 84 mg/dL (Normal) Range: 65-99 5-Xse-740136:25 CBC WITH MANUAL DIFF (75005) Comments: PATIENT NOT FASTINGPERFORMED BY: [facility] Pwtjyi7852 [facility] [id number] Immature Grans (Abs) 0.0 {x10E3/uL} (Normal) Range: [...] PANEL, COMPREHENSIVE Comments: PATIENT NOT FASTINGPERFORMED BY: [employer] Hqnugs8223 [facility] [id number] (25955) ALT (SGPT) 10 [iU]/L (Normal) Range: 0-32 [...] 88 mg/dL (Normal) Range: 65-99 :46 TSH (61304) Comments: 6 weeks; PATIENT NOT FASTINGPERFORMED BY: [employer] Pmpguo0693 [facility] [id number] TSH 2.420 {uIU/mL} (Normal) Range: 0.450-4.500 :23 LIPID PANEL (74961) Comments: PATIENT WAS FASTINGPERFORMED BY: [facility]Eimzcs5928 [facility] [id number] LDL/HDL Ratio 1.6 {ratio_units} (Normal) Range: 0.0-3.2 [...] PANEL, COMPREHENSIVE Comments: PATIENT WAS FASTINGPERFORMED BY: [employer] Kfjikm4521 [facility] [id number] (14629) ALT (SGPT) 15 [iU]/L (Normal) Range: 0-32 [...] Glucose, Serum 96 mg/dL (Normal) Range: 65-99 07-Rms-97701:23 CBC W/AUTO DIFF WBC (55476) Comments: PATIENT WAS FASTINGPERFORMED BY: [facility] Dkqdrv4675 [facility] [id number] Immature Grans (Abs) 0.0 {x10E3/uL} (Normal) Range: [...] (Normal) Range: 3.4-10.8 :23 Vitamin D Hydroxy (78302) Comments: PATIENT WAS FASTINGPERFORMED BY: [facility] Ujqffn5611 [facility] [place] [id number] Vitamin D, 25-Hydroxy 41.5 ng/mL (Normal) Range: 30.0-100.0 Comments: Vitamin D deficiency has been defined by the [place] of[facility] and an Endocrine Society practice guideline as alevel of serum 25-OH vitamin D less than 20 ng/mL (1,2).The Endocrine Society went on to further define vitamin Dinsufficiency as a level between 21 and 29 ng/mL (2).1. IOM ([place] of Medicine). 2010. Dietary reference intakes for calcium and D. [place]: The National AcademAllSource Analysis Press.2. Seng MF, Theresa ROMERO, Kieran KOWALSKI, et al. Evaluation, treatment, and prevention of vitamin D deficiency: an Endocrine Society clinical practice guideline. JCEM. 2010; 96(7):1911-30. :23 TSH (14483) Comments: PATIENT WAS FASTINGPERFORMED BY: [facility] Xfkqse0853 [facility]iva [facility] HospitalDublin [place] [id number] TSH 0.429 {uIU/mL} (Abnormal) Range: 0.450-4.500 :23 VITAMIN B-12 (CYANOCOBALAMIN) Comments: PATIENT WAS FASTINGPERFORMED BY: [facility] Ksncgm6903 [facility] [id number] (83302) Vitamin B12 553 pg/mL (Normal) Range: 211-946 6-Lkd-489753:52 CBC, PLATELETS & MANUAL DIFF Comments: PATIENT NOT FASTINGPERFORMED BY: [facility] Lycxia1718 Oliva [facility]in [place] [id number] (87077) Immature Grans (Abs) 0.0 {x10E3/uL} (Normal) Range: [...] 3.4-10.8 :09 Basic Metabolic Profile (BMP) Comments: [facility] Sckqcoduyf[address] [place], [place], [id number] GAP 9 (Normal) Range: 5-15 CO2 29.0 [...] :09 CBC-Complete Blood Cnt No Diff Comments: [facility] Gbpgxdthja9[address] [place], [place], [id number] MPV 9.1 fL (Normal) Range: 6.2-12.0 PLT [...] 5.7 K/mm3 (Normal) Range: 4.4-11.0 :53 Magnesium (42234) Comments: PATIENT NOT FASTINGPERFORMED BY: [facility]an[facility] Ekuhbv0549 [facility] [id number] Magnesium, Serum 1.9 mg/dL (Normal) Range: 1.6-2.3 :53 METABOLIC PANEL, COMPREHENSIVE Comments: PATIENT NOT FASTINGPERFORMED BY: [facility] Bzkcmi8160 [facility] [id number]; non- emergent till apt (99454) ALT (SGPT) 18 [iU]/L (Normal) Range: 0-32 [...] Glucose, Serum 83 mg/dL (Normal) Range: 65-99 94-Klr-16685:53 TSH (07393) Comments: PATIENT NOT FASTINGPERFORMED BY: [employer] Pygmba9833 [facility] [id number] TSH 1.810 {uIU/mL} (Normal) Range: 0.450-4.500 25-Fxt-235952:15 Vitamin D Hydroxy (84665) Comments: PATIENT NOT FASTINGPERFORMED BY: [facility] Lfvgcn9705 [facility] [id number] Vitamin D, 25-Hydroxy 28.3 ng/mL (Abnormal) Range: 30.0-100.0 Comments: Vitamin D deficiency has been defined by the [place] ofMedicine and an Endocrine Society practice guideline as alevel of serum 25-OH vitamin D less than 20 ng/mL (1,2).The Endocrine Society went on to further define vitamin Dinsufficiency as a level between 21 and 29 ng/mL (2).1. IOM ([place] of Medicine). 2010. Dietary reference intakes for calcium and D. [place]: The National Academies Press.2. Seng MF, Theresa ROMERO, Kieran KOWALSKI, et al. Evaluation, treatment, and prevention of vitamin D deficiency: an Endocrine Society clinical practice guideline. JCEM. 2010; 96(7):1911-30. 13-Vsl-165788:15 VITAMIN B-12 (CYANOCOBALAMIN) Comments: PATIENT NOT FASTINGPERFORMED BY: [employer] Oafcqi6614 Oliva [facility] [id number] (04605) Vitamin B12 447 pg/mL (Normal) Range: 211-946 15-Ich-241198:15 CBC W/AUTO DIFF WBC Comments: PATIENT NOT FASTINGPERFORMED BY: [facility] Terwhz4096 [facility] [id number] Information: SRC:ALONZO (70431) Immature Grans (Abs) 0.0 {x10E3/uL} (Normal) Range: [...] 3.77-5.28 WBC 5.6 {x10E3/uL} (Normal) Range: 3.4-10.8 87-Bjr-457793:15 METABOLIC PANEL, COMPREHENSIVE Comments: PATIENT NOT FASTINGPERFORMED BY: [facility] Svgdnq3499 [facility] [id number] (53307) ALT (SGPT) 13 [iU]/L (Normal) Range: 0-32 [...] Glucose, Serum 87 mg/dL (Normal) Range: 65-99 06-Uyx-652520:50 Urinalysis, Office (78238) UA - LEUKOCYTE ESTERASE Trace (Normal) UA - NITRITE Negative (Normal) URINE UROBILINGN TUNDE TIMED Normal mg/dL (Normal) UA - PROTEIN Negative mg/dL (Normal) UA - PH 5 (Abnormal) UA - BLOOD Negative (Normal) UA - SPECIFIC GRAVITY 1.025 (Normal) UA - KETONES Negative mg/dL (Normal) UA - BILIRUBIN Negative (Normal) UA - GLUCOSE Negative (Normal) 32-Tek-142986:15 URINE CESAR CULTURE (TUNDE COL Comments: PATIENT NOT FASTINGPERFORMED BY: [facility] [id number] COUNT) (30792) Result 1 MUG (Normal) Comments: Mixed urogenital floraGreater than 100,000 colony forming units per mL Urine Culture,Comprehensive Final report (Normal) 08-Vwx-778988:29 URINE CESAR CULTURE-IDENTIFICATN Comments: PATIENT NOT FASTINGPERFORMED BY: [facility] [id number] Information: [id number] (72999) Result 1 MUG (Normal) Comments: Mixed urogenital flora1,000 Colonies/mL Urine Culture,Comprehensive Final report (Normal) 92-Gsu-601089:29 URINE CESAR CULTURE-TUNDE COL Comments: PATIENT NOT FASTINGPERFORMED BY: [facility] [employer] [facility] [id number] Information: SRC:[facility] [id number] COUNT (89800) Result 1 MUG (Normal) Comments: Mixed urogenital flora25,000-50,000 colony forming units per mL Urine Final report (Normal) Culture,Comprehensive 22-Ari-002441:07 Urinalysis, Office (31812) UA - LEUKOCYTE ESTERASE Small (Normal) UA - NITRITE Negative (Normal) URINE UROBILINGN TUNDE TIMED Normal mg/dL (Normal) UA - PROTEIN Negative mg/dL (Normal) UA - PH 5 (Abnormal) UA - BLOOD Hemolyzed Trace (Normal) UA - SPECIFIC GRAVITY 1.015 (Normal) UA - KETONES Negative mg/dL (Normal) UA - BILIRUBIN Negative (Normal) UA - GLUCOSE Negative (Normal) 8-Npe-077491:02 URINE CESAR CULTURE (TUNDE Comments: PATIENT NOT FASTINGPERFORMED BY: [facility]Upbpsy9227 [facility] [id number] Information: SRC:[facility] [place] [id number] COL COUNT) (32867) Result 1 NG36 (Normal) Comments: No growth in 36 - 48 hours. Urine Culture,Comprehensive Final report (Normal) 17-Sep-20149:51 CBC With Differential/Platelet Comments: PATIENT NOT FASTINGPERFORMED BY: [facility]Yyuldz2814 [facility] [id number] Information: [id number] Immature Grans (Abs) 0.0 {x10E3/uL} (Normal) Range: [...] Panel (14) Comments: PATIENT NOT FASTINGPERFORMED BY: [facility])Lwzrys5091 [facility] [id number] ALT (SGPT) 11 [iU]/L (Normal) Range: 0-32 [...] (Normal) Range: 65-99 :13 SED RATE ERYTHROCYTE (97721) Comments: PATIENT WAS FASTINGPERFORMED BY: [employer]6370 [facility] [id number] Sedimentation Rate-Westergren 6 mm/h (Normal) Range: 0-40 :13 C-REACTIVE PROTEIN (14394) Comments: PATIENT WAS FASTINGPERFORMED BY: [facility]Porhrg6411 [facility] [id number] C-Reactive Protein, Quant 2.2 mg/L (Normal) Range: 0.0-4.9 :13 CBC W/AUTO DIFF WBC Comments: PATIENT WAS FASTINGPERFORMED BY: [facility] Kqwdmr8780 [facility] [id number] Information: [id number] (87890) Immature Grans (Abs) 0.0 {x10E3/uL} (Normal) Range: [...] 4.6 {x10E3/uL} (Normal) Range: 3.4-10.8 :13 TSH (06026) Comments: PATIENT WAS FASTINGPERFORMED BY: [employer] [facility] [id number] TSH 0.584 {uIU/mL} (Normal) Range: 0.450-4.500 36-Rqw-169627:42 Urinalysis, Office (20499) UA - LEUKOCYTE ESTERASE Small (Normal) UA - NITRITE Negative (Normal) URINE UROBILINGN TUNDE TIMED Normal mg/dL (Normal) UA - PROTEIN Negative mg/dL (Normal) UA - PH 6 (Abnormal) UA - BLOOD Negative (Normal) UA - SPECIFIC GRAVITY 1.025 (Normal) UA - KETONES Negative mg/dL (Normal) UA - BILIRUBIN Negative (Normal) UA - GLUCOSE Negative (Normal) 93-Cgi-168592:43 URINE CESAR CULTURE (TUNDE Comments: PATIENT NOT FASTINGPERFORMED BY: [employer] [facility] [id number] Information: SRC:UR [id number] COL COUNT) (24973) Result 1 MUG (Normal) Comments: Mixed urogenital flora25,000-50,000 colony forming units per mL Urine Final report (Normal) Culture,Comprehensive :13 Vitamin D Hydroxy (22027) Comments: PATIENT WAS FASTINGPERFORMED BY: [employer] [facility] [id number] Vitamin D, 25-Hydroxy 38.7 ng/mL (Normal) Range: 30.0-100.0 Comments: Vitamin D deficiency has been defined by the [place] of[place]icine and an Endocrine Society practice guideline as alevel of serum 25-OH vitamin D less than 20 ng/mL (1,2).The Endocrine Society went on to further define vitamin Dinsufficiency as a level between 21 and 29 ng/mL (2).1. IOM ([place] of Medicine). 2010. Dietary reference intakes for calcium and D. [place]: The National Academies Press.2. Seng MF, Theresa ROMERO, Kieran KOWALSKI, et al. Evaluation, treatment, and prevention of vitamin D deficiency: an Endocrine Society clinical practice guideline. JCEM. 2010; 96(7):1911-30. :13 LIPID PANEL (62357) Comments: PATIENT WAS FASTINGPERFORMED BY: [employer]6370 [employer] [facility] [id number] LDL/HDL Ratio 1.8 {ratio_units} (Normal) Range: 0.0-3.2 [...] PANEL, COMPREHENSIVE Comments: PATIENT WAS FASTINGPERFORMED BY: [employer]6370 [employer] [facility] [id number] (16107) ALT (SGPT) 14 [iU]/L (Normal) Range: 0-32 [...] Glucose, Serum 86 mg/dL (Normal) Range: 65-99 72-Tnv-77806:13 VITAMIN B-12 (CYANOCOBALAMIN) Comments: PATIENT WAS FASTINGPERFORMED BY: [facility]Wjpeca8404 [facility] [id number] (75093) Vitamin B12 >1999 pg/mL (Abnormal) Range: 211-946 32-Jec-790187:00 Metabolic Panel, Basic Comments: 6 weeks; PATIENT NOT FASTINGPERFORMED BY: [facility]Offahl3250 [facility] [id number] Information: [id number] (15577) Calcium, Serum 9.7 mg/dL (Normal) Range: 8.6-10.2 [...] Glucose, Serum 90 mg/dL (Normal) Range: 65-99 94-Kwk-603337:24 URINE CESAR CULTURE-IDENTIFICATN Comments: PATIENT NOT FASTINGPERFORMED BY: [place] 5522070 [facility] [id number] Information: [id number] (70991) Result 1 ENTEGA (Abnormal) Comments: Enterococcus hegknnoinz62,000-25,000 colony forming units per mLNote: For enterococci with intrinsic intermediate-level resistance tovancomycin, such as E. casseliflavus and E. gallinarum, VRE infection control measures are not applicable, per the CLSI (formerly NCCLS).For Enterococcus species, cephalosporins, aminoglycosides (except forhigh-level resistance screening), clindamycin, and trimethoprim-curtis lfamethoxazole are not effective clinically. Fluoroquinolones areused primarily for treating urinary tract infections. (CLSI, Z591-I50,2009) S = Susceptible; I = Intermediate; R = Resistant * P = Positive; N = Negative MICS are expressed in micrograms per mL Antibiotic RSLT#1 RSLT#2 RSLT#3 RSLT#4Ciprofloxacin SGentami lien 500 SLevofloxacin SNitrofurantoin IPenicillin SStreptomycin 2000 STetracycline SVancomycin R Urine Final report (Abnormal) Culture,Comprehensive 64-Gbj-443899:51 METABOLIC PANEL, Comments: PATIENT NOT FASTINGPERFORMED BY: [facility]6370 [facility] [id number] Information: [id number] COMPREHENSIVE (53182) ALT (SGPT) 20 [iU]/L (Normal) Range: 0-32 [...] Glucose, Serum 80 mg/dL (Normal) Range: 65-99 36-Kex-345437:04 Microscopic Examination Comments: PATIENT NOT FASTINGPERFORMED BY: ieCrowd70 [facility] [id number] Bacteria Few (Normal) Mucus Threads Present (Normal) Epithelial Cells (non renal) 0-10 {/hpf} (Normal) Range: 0 - 10 RBC None seen {/hpf} (Normal) Range: 0 - 2 WBC None seen {/hpf} (Normal) Range: 0 - 5 37-Kwe-946601:04 URINE CESAR CULTURE (TUNDE COL Comments: PATIENT NOT FASTINGPERFORMED BY: [employer]6370 [facility] [id number] COUNT) (25459) Antimicrobial MIHEAD (Normal) Comments: S = Susceptible; [...] mL (Abnormal) Urine Final report Culture,Comprehensive (Abnormal) 50-Oyj-695505:04 URINALYSIS, W/ MICRO Comments: PATIENT NOT FASTINGPERFORMED BY: [facility]6370 [facility] [id number] Information: SRC: [id number] (95325) Microscopic Examination See below: (Normal) Comments: Microscopic was indicated and was performed. Microscopic Examination MICRON (Normal) Comments: Microscopic follows if indicated. Nitrite, Urine Negative (Normal) Bilirubin Negative (Normal) Urobilinogen,Semi-Qn 0.2 mg/dL (Normal) Range: 0.0-1.9 Ketones Negative (Normal) Occult Blood Negative (Normal) Glucose Negative (Normal) Protein Negative (Normal) WBC Esterase Negative (Normal) Appearance Clear (Normal) Urine-Color Yellow (Normal) pH 6.0 (Normal) Range: 5.0-7.5 Specific Interior 1.010 (Normal) Range: 1.005-1.030 77-Xdm-116403:00 METABOLIC PANEL, Comments: PATIENT NOT FASTINGPERFORMED BY: [facility]6370 [facility] [id number] Information: [id number] COMPREHENSIVE (61267) ALT (SGPT) 11 [iU]/L (Normal) Range: 0-32 [...] Glucose, Serum 84 mg/dL (Normal) Range: 65-99 89-Mqj-65113:26 CMP Comments: will review at 11/05 appt [...] CHOL 200 mg/dL (Normal) Comments: <200 mg/dL Dqwqhtsvk877-244 mg/dL Borderline>240 mg/dL High Risk :26 TSH 1.85 {uIU/mL} (Normal) Range: 0.358-3.74 :26 VITD 72.9 mg/mL (Normal) Comments: will review at - appt Comments: Vitamin D 25(OH) Status RangeDeficiency <20 ng/mL (50nmol/L)Insuffciency 20 - 30 ng/mL (50 - 75 nmol/L)Sufficiency 30 - 100 ng/mL (75 - 250 nmol/L)Toxicity >100 ng/mL (>250 nmol/L) 7-Tjd-702369:05 Urinalysis, Office (28599) UA - LEUKOCYTE ESTERASE Negative (Normal) UA - NITRITE Negative (Normal) URINE UROBILINGN TUNDE TIMED 2 mg/dL (Normal) UA - PROTEIN 30 mg/dL (Normal) UA - PH 6.0 (Normal) Comments: 5.5 UA - BLOOD Negative (Normal) UA - SPECIFIC GRAVITY 1.030 (Abnormal) UA - KETONES Small mg/dL (Normal) UA - BILIRUBIN Negative (Normal) UA - GLUCOSE Negative (Normal) 0-Jyq-445045:33 URINE CESAR CULTURE-TUNDE COL Comments: PERFORMED BY: [facility]Cqfifs5992 [facility] [id number] COUNT (06554) Result 1 MUG (Normal) Comments: Mixed urogenital flora10,000-25,000 colony forming units per mL Urine Final report (Normal) Culture,Comprehensive 91-Ego-220906:52 URINE CESAR CULTURE-TUNDE COL Comments: PATIENT NOT FASTINGPERFORMED BY: LISBETH [facility] Lrivrh6081 [place] [place] [id number] Information: SRC:UR [id number] COUNT (97429) Antimicrobial MIHEAD (Normal) Comments: S = Susceptible; [...] CHOL 203 mg/dL (Abnormal) Comments: <200 mg/dL Dggqhbfpx774-995 mg/dL Borderline>240 mg/dL High Risk :47 TSH 1.52 {uIU/mL} (Normal) Range: 0.358-3.74 :47 VITD 59.3 mg/mL (Normal) Comments: Vitamin D 25(OH) Status RangeDeficiency <20 ng/mL (50nmol/L)Insuffciency 20 - 30 ng/mL (50 - 75 nmol/L)Sufficiency 30 - 100 ng/mL (75 - 250 nmol/L)Toxicity >100 ng/mL (>250 nmol/L) :44 CBC, PLATELETS & AUT DIFF Comments: PATIENT NOT FASTINGPERFORMED BY: [facility]Dchyyn8848 [facility] [id number] Information: [id number] (75312) Immature Grans (Abs) 0.0 {x10E3/uL} (Normal) Range: [...] (Normal) Range: 3.4-10.8 :44 FOLIC ACID SERUM (69855) Comments: PATIENT NOT FASTINGPERFORMED BY: [facility]Ufhnxf0308 [facility] [id number] Folate (Folic Acid), Serum 14.4 ng/mL (Normal) Comments: A serum folate concentration of less than 3.1 ng/mL isconsidered to represent clinical deficiency. :44 RETICULOCYTE COUNT MANUL Comments: PATIENT NOT FASTINGPERFORMED BY: [facility]6370 [facility] [id number] (93089) Reticulocyte Count 1.1 % (Normal) Range: 0.6-2.6 :44 LDH (LD) (LACTATE DEHYDROGENASE) Comments: PATIENT NOT FASTINGPERFORMED BY: [facility]6370 [facility] [id number] (64565) LDH 250 [iU]/L (Abnormal) Range: 0-214 :44 IRON BINDING CAPACITY (TIBC) Comments: PATIENT NOT FASTINGPERFORMED BY: [facility]6370 [facility] [id number] (26565) Iron Saturation 16 % (Normal) Range: 15-55 Iron, Serum 52 ug/dL (Normal) Range: 35-155 UIBC 270 ug/dL (Normal) Range: 150-375 Iron Bind.Cap.(TIBC) 322 ug/dL (Normal) Range: 250-450 :44 FERRITIN (57626) Comments: PATIENT NOT FASTINGPERFORMED BY: [facility]Xqhcem0358 [facility] [id number] Ferritin, Serum 42 ng/mL (Normal) Range: 15-150 [...] 17-Aug-20129:50 TSH 1.02 {uIU/mL} (Normal) Range: 0.358-3.74 67-Atn-660861:02 BILAT SCRN DIGITAL & CAD Radiology Report [...] Rowe M.D.July 23, 2012 at 2:35:49 PM [id number] Signed GP/GP If you are the referring physicia n and would like to consult with theradiologist who provided this interpretation, please contact Ofelia Rodriguez at [phone]. If this radiologist is unavailable, youwill be directed to [facility] radiologist to assist. If you are a patient with a question regarding this report, pleasecontactyour referring physician directly. Professional Interpretation Provided By: [employer], Phone , These documents contain legally protected [...] 3 1439 Sign by: Dashawn Rowe MD 9-Dye-779357:59 KIDNEY Radiology Report See Note (Normal) Comments: [...] Welsh M.D.July 11, 2012 at 5:00:06 PM [id number] Signed TT/TT If you are the referring physician and would like to consult with theradiologist who provided this interpretation, please contact Brittney Mccormack M.D. at [phone]. If this radiologist is unavailable, youwillbe directed to another radiologist to assist. If you are a patient with a question regarding this report, pleasecontactyour referring physician directly. Professional Interpretat ion Provided By: [employer], Phone , These documents contain legally protected and confidential healthinformation intended only for the use of the individual or entity [facility]. If you are not the intended recipient, [...] MD on 07/11/121825 Sign by: Blaise CARRANZA,Brittney 4-Nsb-780009:59 TRANSVAGINAL NON- Radiology Report See Note (Normal) [...] Welsh M.D.July 11, 2012 at 4:45:28 PM [id number] Signed TT/TT If you are the referring physician and would like to consult with sebastian dunlap who provided this interpretation, please contact Brittney Mccormack M.D. at [phone]. If this radiologist is unavailable, youwillbe directed to another radiologist to assist. If you are a p atient with a question regarding this report, pleasecontactyour referring physician directly. Professional Interpretation Provided By: [employer], Phone , These documents contain legally protected [...] CHOL 210 mg/dL (Abnormal) Comments: <200 mg/dL Zhmlqqwra442-073 mg/dL Borderline>240 mg/dL High Risk :44 MG [...] to well characterize low-attenuation left renal lesion,probably kiosk sales representative of a cyst. Consider follow-up renal sonographyforfurther evaluation as clinically warranted. Signed:Matilda AvilesJuly 04, 2012 at 5:12:21 PM [id number] Signed DL/DL If you are the referring physician and would like to consult with theradiologist who provided this interpretation, please contact Ofelia Kyle at [phone]. If this radiologist is unavailable, youwillbe directed to another radiologist to assist. If you are a patient with a question regarding this report, pleasecontactyo ur referring physician directly. Professional Interpretation Provided By: [employer], Phone , These documents contain legally protected [...] on 07/04/121714 Sign by: Salinas Champion MD 70-Dsj-873905:18 CRE GFRAA 41 mL/min (Abnormal) GFR 34 mL/min (Abnormal) CREAT 1.6 mg/dL (Abnormal) Range: 0.6-1.0 11-Tbb-095472:15 BMP GAP 7 (Normal) Range: 5-15 CO2 [...] 7-18 GLU 80 mg/dL (Normal) Range: 70-110 48-Nly-424088:15 TSH 3.05 {uIU/mL} (Normal) Range: 0.358-3.74 :22 B12 577 pg/mL (Normal) Range: 211-946 Comments: Performed at: - [facility] [id number] Director: Patito Segovia MD, Phone: [phone] :[phone] CBCMD RBCM NORM C+C {NORMAL} (Normal) [...] D deficiency has been defined by the [place] ofMedicine and an Endocrine Society practice guideline as alevel of serum 25-OH vitamin D less than 20 ng/mL (1,2).The Endocrine Society went on to further define vitamin Dinsufficiency as a level between 21 and 29 ng/mL (2).1. IOM ([place] of Medicine). 2010. Dietary reference intakes for calcium and D. [place]: The National AcademAllSource Analysis Press.2. Seng MF, Theresa ROMERO, Kieran KOWALSKI, et al. Evaluation, treatment, and prevention of vitamin D deficiency: an Endocrine Society clinical practice guideline. JCEM. 2010; 96(7):1911-30. 21-Svh-267366:37 BREAST UNILATERAL Radiology Report See Note (Normal) [...] Category 3: Probably Benign Finding - Initial Npbfo-FjatdoyfByxsrf-py Suggested. Signed:Dashawn Rowe M.D.November 09, 2011 at 2:49:17 PM [id number] Signed GP/GP If you are the referring physician and would like to consult with theradiologist who provided this interpretation, please contact Herb blake M.D. at [phone]. If this radiologist is unavailable, youwill be [...] 11/09/11 1456 Sign by: Dashawn Rowe MD 19-Qvu-793805:47 BREAST UNILATERAL Radiology Report See Note (Normal) [...] Category 3: Probably Benign Finding - Initial Gxzff-MtvlmyjcOcydeu-tp Suggested. To consult with a radiologist regarding this report, please call our 17H2sogrcas line @ Dictated on 06/22/11 1428 by Wendy Rowe MD on 06/22/11 1547 by ITS IMPORTSign by Dashawn Rowe MD on 06/22/11 1548 Sign by: ___ Dashawn Rowe MD 99-Ecz-006051:47 UNILAT LT DIAG DIGITAL & CAD Radiology [...] radiologist regarding this report, please call our 09G6zhwdtai line @ Dictated on 06/22/11 1357 by Wendy Rowe MD on 1450 by ITS IMPORTSign by Dashawn Rowe MD on 06/22/11 1451 Sign by: Dashawn Rowe MD 8-Jnk-659022:14 CERV SPINE,MIN 4 VIEWS Radiology Report See [...] radiologist regarding this report, please call our 58W2naobhhn line @ Dictated on 04/13/11 1408 by [...] or = 500 mg/dL :38 VIT D, [address]118 47.8 ng/mL (Normal) Range: 30.0-100.0 Comments: Vitamin D deficiency has been defined by the [place] ofMedicine and an Endocrine Society practice guideline as alevel of serum 25-OH vitamin D less than 20 ng/mL (1,2).The Endocrine Society went on to further define vitamin Dinsufficiency as a level between 21 and 29 ng/mL (2).1. IOM ([place] of Medicine). 2011. Dietary reference intakes for calcium and D. [place]: The National Academies Press.2. Seng MF, Theresa ROMERO, Kieran KOWALSKI, et al. Evaluation, treatment, and prevention of vitamin D deficiency: an Endocrine Society clinical practice guideline. JCEM. 2010; 96(7): 1911-30.Performed at: [address] [id number] Director: Patito Segovia MD, Phone: [phone] :38 VITAMIN B12 781 pg/mL (Normal) Range: [...] 02/02/11 0843 Sign by: Dashawn Rowe MD 24-Bqo-818575:03 Thin prep Pap Comments: Source.............Cervical;EndocervicalNo. of containers..01 CYTYC Thin Prep VialPERFORMED BY: [facility] [address] [facility] [place] [id number] Information: [id number] ([id number]) Note: PAPSMR (Normal) Comments: The Pap smear [...] ; Routine gynecolog ical examina Deidre Aguila Carrier Driver (ASCP) 52-Jak-299097:01 BILAT SCRN DIGITAL & CAD Radiology Report [...] 11/10/10 1453 Sign by: Dashawn Rowe MD 85-Avs-752535:16 COMP METABOLIC Comments: appt 11/05/10 GAP 10 [...] 7-18 GLU 79 mg/dL (Normal) Range: 70-110 78-Nsn-803949:16 LIPID VLDL 24 mg/dL (Normal) Range: 5-40 [...] 200-240 mg/dL Borderline >240 mg/dL High Risk 69-Ork-162790:16 TSH 0.99 {uIU/mL} (Normal) Range: 0.358-3.74 23-Dvl-048162:16 VIT D,25 67166 45.6 ng/mL (Normal) Range: 32.0-100.0 Comments: Recent studies consider the lower limit of 32.0 ng/mL to zoraida threshold for optimal health.Everardo HEREDIA. J Nutr. 2004;135(2):317-22.Performed at: [facility] [place] [address]Lab Director: Patito Segovia MD, Phone: [phone] 87-Lyl-228182:16 VITAMIN B12 582 pg/mL (Normal) Range: 254-1320 Comments: There is a low frequency possibility that high titers ofintrinsic blocking antibodies may not be completely inactivated during the reaction pretreatment stepof this testing method. If test results are i n conflictwith the clinical diagnosis, patient should be testedfor the presence of intrinsic factor blocking antibodies. 07-Tfs-965754:20 CBCD,SMEAR DIFF PLT EST SeeNote (Normal) Comments: [...] 4.2-5.4 WBC 5.4 K/mm3 (Normal) Range: 4.4-11.0 95-Seq-822050:20 COMP METABOLIC GAP 9 (Normal) Range: 5-15 [...] 7-18 GLU 92 mg/dL (Normal) Range: 70-110 08-Pva-252987:20 LIPID HDL 63 mg/dL (Normal) Comments: Reference [...] {uIU/mL} (Normal) Range: 0.358-3.74 :20 VIT D,25 89787 43.2 ng/mL (Normal) Range: 32.0-100.0 Comments: Recent studies consider the lower limit of 32.0 ng/mL to zoraida threshold for optimal health.Mcgee . J Nutr. 2004;135(2):317-22.Performed at: [place] [address]Lab Director: Patito Segovia MD, Phone: [phone] :[phone] VITAMIN B12 516 pg/mL (Normal) Range: 254-1320 Comments: There is a low frequency possibility that high titers ofintrinsic blocking antibodies may not be completely inactivated during the reaction pretreatment stepof this testing method. If test results are i n conflictwith the clinical diagnosis, patient should be testedfor the presence of intrinsic factor blocking antibodies. :44 VIT D,25 02306 38.6 ng/mL (Normal) Range: 32.0-100.0 Comments: Recent studies consider the lower limit of 32.0 ng/mL to zoraida threshold for optimal health.Mcgee BW. J Nutr. 2004;135(2):317-22.Performed at: [address] [id number] Director: Patito Segovia MD, Phone: [phone] :44 VITAMIN B12 398 pg/mL (Normal) Range: [...] intrinsic factor blocking antibodies. 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 No definite P1 segment connectingthe artery to the basilar artery is identified. IMPRESSION:No demonstrated aneurysm. Anatomic variations of the [place]. 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 The rightinternal carotid arteries supplies the left [place] territory, and islarger than the left internal carotid. 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 Reported By: DOMENICA MCGARRY M.D. 11-Bmd-393434:41 BRAIN W/WO CONTRAST Radiology See Note Comments: Exam Number: [id number] CLINICAL: MRI BRAIN WITHOUT AND WITH CONTRAST [...] mild degenerative remodeling of the mandibular condyles.ADDENDUM: [id number] MRI/BRWW CLINICAL: MRI BRAIN WITHOUT AND WITH [...] CHOL 188 mg/dL (Normal) Comments: <200 mg/dL Yusoamavw308-111 mg/dL Borderline>240 mg/dL High Risk HDL 54 [...] Range: 0.358-3.74 5 (Normal) :3 VIT D,25 53343 29.3 ng/mL (Abnormal) Range: 32.0-100.0 5 Comments: Recent studies consider the lower limit of 32.0 ng/mL to zoraida threshold for optimal health.Everardo HEREDIA. J Nutr. 2004;135(2):317-22.Performed at: [facility] [place] [address]Lab Director: Patito Segovia MD, Phone: [phone] :[phone] VITAMIN B12 158 pg/mL (Abnormal) Range: [...] Report See Note (Normal) Comments: Exam Number: [id number] CLINICAL:Right upper quadrant pain CT ABDOMEN WITH [...] parapelvic renal cysts. Reported By: PRADIP SALVADOR 72-Vej-510694:29 BMP BUN 16 mg/dL (Normal) Range: 7-18 [...] mg/dL (Normal) Range: 70-110 12-Jun-20099:37 VIT D,25 87944 26.3 ng/mL (Abnormal) Range: 32.0-100.0 Comments: Recent studies consider the lower limit of 32.0 ng/mL to zoraida threshold for optimal health.Everardo HEREDIA. J Nutr. 2004;135(2):317-22.Performed at: [address] [id number] Director: Ade Rubio MD 60-Uom-979088:36 GALLBLADDER (HP) Radiology Report See Note (Normal) Comments: Exam Number: [id number] LIMITED ABDOMINAL ULTRASOUND FOR GALLBLADDER HISTORYChest pain. [...] kidneyis suggested. Reported By: DOMENICA GATES M.D. 0-Ump-579073:21 Lipase (61473) Comments: PATIENT NOT FASTINGPERFORMED BY: [address] [id number] Lipase, Serum 42 U/L (Normal) Range: 0-59 3-Pgr-939695:21 Amylase (58851) Comments: PATIENT NOT FASTINGPERFORMED BY: [place] [address] [facility] [id number] Amylase, Serum 54 U/L (Normal) Range: 31-124 :21 CBC WITH MANUAL DIFF Comments: PATIENT NOT FASTINGPERFORMED BY: [facility] [facility] [id number] Information: [id number] (65095) Baso (Absolute) 0.1 {x10E3/uL} (Normal) Range: 0.0-0.2 [...] PANEL, COMPREHENSIVE Comments: PATIENT NOT FASTINGPERFORMED BY: [facility] [id number] (84081) ALT (SGPT) 15 [iU]/L (Normal) Range: 0-40 [...] Comments: DR DAVIS ORDERED CMP,CBCMD,CAROL,RF,TSH,CRP,SED,CCP,LIPIDDR DONALDLANKIORDEREDCMP,CBCD,CRP,SED,VITD,CCP,HEPBSAB,HEPBSAG,HEPC,CAROL,RF,HEPBCORE IGM,UA [id number] CAROL-DIRECT SeeNote (Normal) Comments: Result: Negative :48 ANTI-CCP 569691 4 {units} (Normal) Comments: DR DAVIS ORDERED [...] mm/h (Normal) Range: 0-30 :48 HB CORE [id number] SeeNote (Normal) Comments: DR DAVIS ORDERED CMP,CBCMD,CAROL,RF,TSH,CRP,SED,CCP,LIPIDDR VELLANKIORDEREDCMP,CBCD,CRP,SED,VITD,CCP,HEPBSAB,HEPBSAG,HEPC,CAROL,RF,HEPBCORE IGM,UA Comments: Result: Negative Performed At: [facility] [place], [place] [id number] At: [facility] [place] [phone] :48 HBsAg Comments: DR DAVIS ORDERED CMP,CBCMD,CAROL,RF,TSH,CRP,SED,CCP,LIPIDDR [...] of antibody present. :48 HEP C AB 341794 0.1 (Normal) Comments: DR DAVIS ORDERED CMP,CBCMD,CAROL,RF,TSH,CRP,SED,CCP,LIPIDDR [...] VELLANKIORDEREDCMP,CBCD,CRP,SED,VITD,CCP,HEPBSAB,HEPBSAG,HEPC,CAROL,RF,HEPBCORE IGM,UA Range: 0.358-3.74 :48 VIT D,25 68917 18.0 ng/mL (Abnormal) Comments: DR DAVIS ORDERED CMP,CBCMD,CAROL,RF,TSH,CRP,SED,CCP,LIPIDDR VELLANKIORDEREDCMP,CBCD,CRP,SED,VITD,CCP,HEPBSAB,HEPBSAG,HEPC,CAROL,RF,HEPBCORE IGM,UA Range: 32.0-100.0 Comments: Recent studies consider the lower limit of 32.0 ng/mL to zoraida threshold for optimal health.Everardo HEREDIA. J Nutr. 2004;135(2):317-22. 7-Oct-808845:10 BILAT SCRN DIGITAL & CAD Radiology Report See Note (Normal) Comments: Exam Number: [id number] MAMMOGRAM, BILATERAL SCREENING DIGITAL AND CAD HISTORYRoutine [...] (MQSA). The mammograms werealso examined with c BlueTalon[employer]-aided detection software ([employer], [employer].). Reported By: DOMENICA GATES M.D. 7-Tza-433655:09 SPINE,LUMBAR (ROUTINE) Radiology Report See Note (Normal) Comments: Exam Number: [id number] CLINICAL:68-year-old female with low back pain for [...] Report See Note (Normal) Comments: Exam Number: [id number] CLINICAL DATALow back pain, flank pain, right [...] disc disea se involving multiple levels from U2qlqtxwi S1. There is degenerative hypertrophic change of [...] Report See Note (Normal) Comments: Exam Number: [id number] DORSAL SPINE Three images of the dorsal [...] middle dorsal spine. Reported By: HEATHER JACKSON 1-Jiz-285993:22 Urine Culture,Comprehensive Comments: Clinical Information: SRC:UR PERFORMED BY: [facility] [facility] [id number] Result 1 NG36 (Normal) Comments: No growth in 36 - 48 hours. Urine Culture,Comprehensive Final report (Normal) 9-Xnu-626986:18 PELVIS WITHOUT IV CONTRAST Radiology Report See Note (Normal) Comments: Exam Number: [id number] CT SCANS OF ABDOMEN AND PELVIS HISTORYThe [...] Report See Note (Normal) Comments: Exam Number: [id number] CT SCANS OF ABDOMEN AND PELVIS HISTORYThe [...] the spine. Reported By: DOMENICA GATES M.D. 0-Ask-386567:1 C-REACTIVE PROT 4.05 mg/L (Abnormal) Range: 0.0-3.0 [...] 6.4-8.2 GLU 84 mg/dL (Normal) Range: 70-110 2-Typ-143183:10 ESR SED RATE 14 mm/h (Normal) Range: 0-30 6-Wie-545688:40 Urinalysis, Office (97970) UA - BILIRUBIN Negative (Normal) UA - BLOOD Non Hemolyzed Trace (Normal) UA - GLUCOSE Negative (Normal) UA - KETONES Negative mg/dL (Normal) UA - LEUKOCYTE ESTERASE Negative (Normal) Comments: aw UA - NITRITE Negative (Normal) UA - PH 6.0 (Normal) UA - PROTEIN Negative mg/dL (Normal) UA - SPECIFIC GRAVITY 1.010 (Normal) URINE UROBILINGN TUNDE TIMED Normal mg/dL (Normal) 6-Rge-810533:28 URINE CESAR CULTURE-TUNDE COL Comments: PATIENT NOT FASTINGClinical Information: SRC:UR ADD [id number] PERFORMED BY: [facility] Pjdeqq[address] [facility] [id number] COUNT ([id number]) Result 1 MUG (Normal) Comments: Mixed urogenital flora10,000-25,000 colony forming units per mL Urine Final report (Normal) Culture,Comprehensive 1-Lfz-962808:09 Urinalysis, Office (77235) UA - BILIRUBIN Negative (Normal) UA - [...] mg/dL VLDL 16 mg/dL (Normal) Range: 5-40 6-Usv-358473:59 LQD PAP [id number] Comments: CYTOLOGY INFORMATION:- CLINICAL INFORMATION: POSTMENOPAUSAL- DATE LMP/MENOPAUSE: MENOPAUSE- COLLECTION VIAL: Thin Prep Vial- FOREST FIRE FIGHTER SOURCE: CERVICAL/ENDOCERVICAL- COLLECTION TECHNIQUE: BRUSH/SPATULA ADEQ Comment (Normal) Comments: Satisfactory for evaluation. Endocervical and/or squamous metaplasticcells (endocervical component) are present. COMM . (Normal) DIAGN Comment (Normal) Comments: NEGATIVE FOR INTRAEPITHELIAL LESION AND MALIGNANCY. HPV RFLX Comment (Normal) Comments: The HPV DNA reflex criteria were not met with this specimenresult therefore, no HPV testing was performed. .Performed At: [address] [id number] PAPR Comment (Normal) Comments: The Pap smear is a screening test designed to aid in thedetection of premalignant and malignant conditions of theuterine cervix. It is not a diagnostic procedure andshould not be used as the sole means of detecting cervicalcancer. Both false-positive and false-negative reports dooccur. . PERFORM Comment (Normal) Comments: Diandra Bee, Carrier Driver (ASCP) 03-Vah-469550:36 DEXA BONE DENSITY STUDY (HP) Radiology Report See Note (Normal) Comments: Exam Number: [id number] BONE DENSITOMETRY TECHNIQUE Bone densitometry of the [...] within normallimits. Reported By: DOMENICA GATES M.D. 18-Izw-11874:55 COMP METABOLIC A/G 1.3 {RATIO} (Normal) Range: [...] T PROT 6.1 g/dL (Abnormal) Range: 6.4-8.2 89-Lec-569081:12 FUNEZ A AB [id number] FUNEZ A TYPE 10 <1:8 (Normal) FUNEZ [...] and its performancecharacteristics have been determined by [employer]. Performance characteristics refer tothe analytical performance of the test. FUNEZ A TYPE 2 <1:8 (Normal) FUNEZ A TYPE 4 <1:8 (Normal) FUNEZ A TYPE 7 <1:8 (Normal) FUNEZ A TYPE 9 <1:8 (Normal) :12 ESR SED RATE 14 mm/h (Normal) Range: 0-30 79-Uqh-399215:12 RA LATEX 6502 7.1 {IU/mL} (Normal) Range: 0.0-13.9 Comments: Performed At: [facility] [place], [place] [id number] At: [facility] [address] [place], [place] [id number] 01-Gkb-749222:12 TSH 0.16 {uIU/mL} (Abnormal) Range: 0.34-4.82 80-Hqx-896364:21 PELVIS WITH CONTRAST Radiology Report See Note (Normal) Comments: Exam Number: [id number] CT ABDOMEN AND PELVIS WITH CONTRAST. CLINICAL [...] pericardial effusion. Reported By: TODD KENNEDY M.D. 70-Xtv-792716:11 ABDOMEN WITH CONTRAST Radiology Report See Note (Normal) Comments: Exam Number: [id number] CT ABDOMEN AND PELVIS WITH CONTRAST. CLINICAL [...] pericardial effusion. Reported By: TODD KENNEDY M.D. 99-Mib-573303:38 MARCUS 45 U/L (Normal) Range: 25-115 63-Vjc-873127:38 CBCD,SMEAR DIFF BAND 1 % (Normal) Range: [...] 47-70 WBC 5.9 K/mm3 (Normal) Range: 4.4-11.0 70-Kdt-190441:38 LIPASE 190 U/L (Normal) Range: 114-286 70-Ejr-370809:45 BILAT SCRN DIGITAL & CAD Radiology Report See Note (Normal) Comments: Exam Number: [id number] MAMMOGRAM, BILATERAL SCREENING DIGITAL AND CAD HISTORYRoutine [...] werealso exam ined with computer-aided detection software ([employer], [employer].). Reported By: DOMENICA GATES M.D. 96-Elv-13416:33 CHEST W/WO CONTRAST Radiology Report See Note (Normal) Comments: Exam Number: [id number] CT SCAN OF CHEST HISTORYLung nodule. Consecutive [...] mg/dL VLDL 20 mg/dL (Normal) Range: 5-40 26-Mfz-03960:07 TSH 0.40 {uIU/mL} (Normal) Range: 0.34-4.82 Plan [...] itching : [facility] Indication: Vaginal itching Low Back [...] Indication: Chest pain Chest pain : Reviewed Industrial Education Teacher Letter Indication: Chest pain Osteoarthritis, unspecified [...] Hypercholesterolemia Planned Observations CBC W/AUTO DIFF WBC (32230)Indication: Prolonged QT interval On: :18 Request METABOLIC PANEL, COMPREHENSIVE (74456)Indication: Prolonged QT interval On: 0-Ovv-945963:18 Request VITAMIN B-12 (CYANOCOBALAMIN) (99517)Indication: DEFICIENCY, B-COMPLEX NEC On: :18 Request TSH (72420)Indication: Acquired hypothyroidism On: :17 Request LIPOPROTEIN, BLD, BY NMR (39293)Indication: Hypercholesterolemia On: :17 Request VITAMIN B-12 (CYANOCOBALAMIN) (23834)Indication: DEFICIENCY, B-COMPLEX NEC On: :18 Request LIPID PANEL (06957)Indication: Hypercholesterolemia On: :18 Request CBC W/AUTO DIFF WBC (90839)Indication: Right flank pain On: :17 Request METABOLIC PANEL, COMPREHENSIVE (84551)Indication: Right flank pain On: 3-Qdu-210478:17 Request Vitamin D Hydroxy (67730)Indication: Vitamin D deficiency, unspecified On: :17 Request Urinalysis, Office (54185)Indication: Urinary frequency On: 14-Jfx-236354:22 Request VITAMIN B-12 (CYANOCOBALAMIN) (53888)Indication: Other vitamin B12 deficiency anemia On: :28 Request Comments: Lot:[id number]:04/29Dose:1mlRoute:IMSite:r arm Given By:TAVON signed Vitamin D Hydroxy (67279)Indication: Vitamin D deficiency, unspecified On: :42 Request LIPID PANEL (12157)Indication: Hypercholesterolemia On: :42 Request METABOLIC PANEL, COMPREHENSIVE (13155)Indication: Essential hypertension On: :36 Request TSH (15362)Indication: Acquired hypothyroidism On: :36 Request CBC with auto diff (63242)Indication: Abdominal pain, acute, right lower quadrant On: 4-Qbc-827612:06 Request METABOLIC PANEL, COMPREHENSIVE (06717)Indication: Abdominal pain, acute, right lower quadrant On: 2-Dvu-877247:06 Request Urinalysis, Office (66092)Indication: Low Back Pain (Renamed from LBP (low back pain)) On: 79-Xwh-481298:09 Request Vitamin D Hydroxy (66827)Indication: Vitamin D deficiency, unspecified On: 92-Bye-658537:32 Request METABOLIC PANEL, COMPREHENSIVE (24208)Indication: Essential hypertension On: :31 Request LIPID PANEL (57708)Indication: Hypercholesterolemia On: : Request TSH (10153)Indication: Acquired hypothyroidism On: : Request LIPID PANEL (39823)Indication: Hypercholesterolemia On: :45 Request TSH (63341)Indication: Acquired hypothyroidism On: :44 Request METABOLIC PANEL, COMPREHENSIVE (81255)Indication: Essential hypertension On: :44 Request CBC, PLATELETS & AUT DIFF (73128)Indication: DEFICIENCY, B-COMPLEX NEC On: 6-Ksz-565148:43 Request VITAMIN B-12 (CYANOCOBALAMIN) (20082)Indication: DEFICIENCY, B-COMPLEX NEC On: 5-Oiw-330850:43 Request Vitamin D Hydroxy (40571)Indication: Vitamin D deficiency, unspecified On: 2-Ckc-221839:43 Request IRON (41862)Indication: Anemia On: 8-Dpq-756247:42 Request Vitamin D Hydroxy (36739)Indication: Vitamin D deficiency, unspecified On: 3-Vuz-169843:36 Request VITAMIN B-12 (CYANOCOBALAMIN) (94744)Indication: DEFICIENCY, B-COMPLEX NEC On: :35 Request CBC WITH MANUAL DIFF (87408)Indication: DEFICIENCY, B-COMPLEX NEC On: :35 Request METABOLIC PANEL, COMPREHENSIVE (09563)Indication: Essential hypertension On: :35 Request T3, FREE (TRIDOTHYRONINE) (51005)Indication: Acquired hypothyroidism On: :35 Request T4, FREE (75477)Indication: Acquired hypothyroidism On: :35 Request TSH (53137)Indication: Acquired hypothyroidism On: :34 Request TSH (27057)Indication: Acquired hypothyroidism On: 88-Sje-166667:23 Request Comments: recheck in 6 weeks Metabolic Panel, Basic (91130)Indication: Essential hypertension On: 61-Xdx-893367:16 Request TSH (46781)Indication: Acquired hypothyroidism On: 84-Fqb-700619:22 Request C-REACTIVE PROTEIN (75233)Indication: right lower quadrant pain On: :51 Request SED RATE ERYTHROCYTE (75339)Indication: right lower quadrant pain On: :51 Request Magnesium (62306)Indication: Leg cramps On: :43 Request CBC WITH MANUAL DIFF (69696)Indication: Edema leg On: :42 Request LIPID PANEL (41766)Indication: Hypercholesterolemia On: :41 Request METABOLIC PANEL, COMPREHENSIVE (56811)Indication: Essential hypertension On: :41 Request VITAMIN B-12 (CYANOCOBALAMIN) (04991)Indication: Other vitamin B12 deficiency anemia On: :41 Request Vitamin D Hydroxy (35664)Indication: Vitamin D deficiency, unspecified On: :41 Request Metabolic Panel, Basic (43381)Indication: Acute renal failure, unspecified acute renal failure type On: :31 Request TSH (84050)Indication: Acquired hypothyroidism On: :30 Request LIPID PANEL (25423)Indication: Hypercholesterolemia On: :39 Request Vitamin D Hydroxy (19805)Indication: Vitamin D deficiency, unspecified On: :39 Request VITAMIN B-12 (CYANOCOBALAMIN) (16297)Indication: Other vitamin B12 deficiency anemia On: :39 Request CBC WITH MANUAL DIFF (93740)Indication: Other vitamin B12 deficiency anemia On: :39 Request METABOLIC PANEL, COMPREHENSIVE (30286)Indication: Essential hypertension On: :39 Request Vitamin D Hydroxy (12355)Indication: Vitamin D deficiency, unspecified On: :37 Request LIPID PANEL (63113)Indication: Hypercholesterolemia On: :37 Request TSH (57272)Indication: Acquired hypothyroidism On: :37 Request CBC WITH MANUAL DIFF (58866)Indication: Essential hypertension On: :39 Request METABOLIC PANEL, COMPREHENSIVE (59972)Indication: Essential hypertension On: :39 Request VITAMIN B-12 (CYANOCOBALAMIN) (35575)Indication: b12 deficiency On: :39 Request LIPID PANEL (28322)Indication: Hypercholesterolemia On: :39 Request Vitamin D Hydroxy (68285)Indication: Vitamin D deficiency, unspecified On: :32 Request VITAMIN B-12 (CYANOCOBALAMIN) (99519)Indication: b12 deficiency On: :32 Request Vitamin D Hydroxy (56643)Indication: Vitamin D deficiency, unspecified On: :32 Request METABOLIC PANEL, COMPREHENSIVE (84529)Indication: Essential hypertension On: :32 Request LIPID PANEL (97303)Indication: Hypercholesterolemia On: :32 Request TSH (61874)Indication: Acquired hypothyroidism On: :32 Request CBC WITH MANUAL DIFF (29347)Indication: Essential hypertension On: :30 Request METABOLIC PANEL, COMPREHENSIVE (79970)Indication: Essential hypertension On: :29 Request VITAMIN B-12 (CYANOCOBALAMIN) (68721)Indication: DEFICIENCY, B-COMPLEX NEC On: :29 Request Vitamin D Hydroxy (23007)Indication: Vitamin D deficiency, unspecified On: :29 Request TSH (53785)Indication: Acquired hypothyroidism On: :29 Request LIPID PANEL (60260)Indication: Hypercholesterolemia On: :29 Request Vitamin B-12 (cyanocobalamin) (82250)Indication: b12 deficiency On: :01 Request CALCIFIDIOL (46605) VIT D 25Indication: Vitamin D deficiency, unspecified On: 27-Wkh-063228:00 Request TSH (76236)Indication: Acquired hypothyroidism On: 35-Zqw-625069:34 Request LIPID PANEL (33877)Indication: Hypercholesterolemia On: 86-Rvr-614850:34 Request Metabolic Panel, Basic (97186)Indication: Essential hypertension On: 43-Tkx-374534:26 Request VITAMIN B-12 (CYANOCOBALAMIN) (85413)Indication: DEFICIENCY, B-COMPLEX NEC On: 75-Buh-937180:19 Request Vitamin D Hydroxy (89817)Indication: Vitamin D deficiency, unspecified On: 84-Bdv-448101:19 Request VITAMIN D, 1, 25-DIHYDROXY (90642)Indication: Vitamin D deficiency, unspecified On: 1-Mxf-655606:19 Request Comments: Vit D [place] Vitamin B-12 (cyanocobalamin) (55948)Indication: b12 deficiency On: 0-Hgc-879399:17 Request CBC WITH MANUAL DIFF (52408)Indication: b12 deficiency On: 32-Pst-262798:17 Request VITAMIN B-12 (CYANOCOBALAMIN) (20577)Indication: b12 deficiency On: 10-Fya-506504:14 Request VITAMIN B-12 (CYANOCOBALAMIN) (54805)Indication: Vitiligo On: 95-Odf-626183:37 Request LIPID PANEL (79054)Indication: Hypercholesterolemia On: 90-Dzq-582374:33 Request TSH (74567)Indication: Acquired hypothyroidism On: 58-Nuk-572381:32 Request Vitamin D Hydroxy (71800)Indication: Vitamin D deficiency, unspecified On: 79-Rtc-090513:31 Request METABOLIC PANEL, COMPREHENSIVE (11948)Indication: Essential hypertension On: 29-Goy-150019:42 Request Vitamin D Hydroxy (41153)Indication: Vitamin D deficiency, unspecified On: 68-Vlq-210397:42 Request CAROL (ANTINUCLEAR ANTIBODY) (46860)Indication: Pain in unspecified joint On: 8-Vut-255921:27 Request C-REACTIVE PROTEIN (10086)Indication: Pain in unspecified joint On: :27 Request CBC WITH MANUAL DIFF (91847)Indication: Pain in unspecified joint On: :27 Request CCP ANTIBODY (77328)Indication: Pain in unspecified joint On: 9-Akd-471462:27 Request METABOLIC PANEL, COMPREHENSIVE (76331)Indication: Pain in unspecified joint On: :27 Request RHEUMATOID FACTOR-QUANT (85197)Indication: Pain in unspecified joint On: : Request SED RATE ERYTHROCYTE (30401)Indication: Pain in unspecified joint On: : Request TSH (48059)Indication: Pain in unspecified joint On: : Request SED RATE ERYTHROCYTE (46720)Indication: flank pain On: :35 Request C-REACTIVE PROTEIN (52116)Indication: flank pain On: :35 Request METABOLIC PANEL, COMPREHENSIVE (80081)Indication: flank pain On: :35 Request CBC WITH MANUAL DIFF (27087)Indication: flank pain On: : Request URINE CESAR CULTURE (TUNDE COL COUNT) (26413)Indication: flank pain On: :35 Request Thin prep Pap (64302)Indication: Well woman exam with routine gynecological exam On: :09 Request CBC WITH MANUAL DIFF (53528)Indication: Essential hypertension On: 08-Erv-093882:02 Request METABOLIC PANEL, COMPREHENSIVE (38771)Indication: Essential hypertension On: 68-Cnl-909610:02 Request LIPID PANEL (25895)Indication: Hypercholesterolemia On: 21-Lxu-165568:02 Request METABOLIC PANEL, COMPREHENSIVE (60420)Indication: Essential hypertension On: 28-Peo-395643:18 Request TSH (39867)Indication: Acquired hypothyroidism On: 89-Dvh-722163:18 Request SED RATE ERYTHROCYTE (63172)Indication: Abdominal pain, acute, left upper quadrant On: 46-Dks-887202:09 Request C-REACTIVE PROTEIN (88967)Indication: Abdominal pain, acute, left upper quadrant On: 34-Rid-336560:09 Request CBC WITH MANUAL DIFF (13181)Indication: edema On: 47-Fab-942714:09 Request METABOLIC PANEL, COMPREHENSIVE (53238)Indication: edema On: 32-Qxx-135831:09 Request TSH (99689)Indication: Acquired hypothyroidism On: 77-Mof-667564:03 Request CBC WITH MANUAL DIFF (58390)Indication: Abdominal pain, acute, left upper quadrant On: 82-Hfu-614316:22 Request Lipase (97492)Indication: Abdominal pain, acute, left upper quadrant On: 14-Kcu-042521:22 Request Amylase ([id number])Indication: Abdominal pain, acute, left upper quadrant On: 72-Txf-358293:21 Request Thin prep Pap ([id number])Indication: Well woman exam with routine gynecological exam On: 70-Syx-553742:43 Request HEPATIC FUNCTION PANEL ([id number])Indication: Hypercholesterolemia On: :52 Request LIPID PANEL ([id number])Indication: Hypercholesterolemia On: :52 Request CBC, PLATELETS & AUTO DIFF ([id number])Indication: Leukopenia On: 34-Ded-427110:34 Request Planned Encounters Medical; [facility] 6 Month Fu - On: 03-Jul-2018 13:00 [facility] Fast DO, Kristine A Fast DO, Kristine A Planned Procedures DEXA SCAN AXIAL SKELETON ([id number])By: On: 02-Jan-2018 Intent Fast DO, Kristine A Fast DO, Kristine A Comments: mar - RenalBy: Fast DO, On: 02-Jan-2018 Intent Kristine A Fast DO, Kristine A Flu Vaccine (Quadrivalent) [id number]: On: 02-Jan-2018 Intent Fast DO, Kristine A Fast DO, Kristine A Comments: Lot #[id number]/30/2019Site-L dltd, IMDose prefilled syringegiven by: Melly reviewed and ABN signed ELECTROCARDIOGRAM, COMPLETE (ECG) On: 28-Aug-2017 Intent ([id number])By: Fast DO, Kristine A Fast Comments: ekg showed normal sinus rhythym, normal axis, no acute st/t wave changes DO, Kristine A SCREENING DIGITAL TOMOSYNTHESIS OF On: 28-Aug-2017 Intent BREAST ([id number])By: Fast DO, Kristine A Fast DO, Kristine A B 12 Injection, 1000 mcg (J3420)By: On: 15-Mar-2017 Intent Visit, Nurse Comments: [id number]/ANOOP Almodovar B 12 Injection, 1000 mcg (J3420)By: On: 22-Feb-2017 Intent Fast DO, Kristine A Fast DO, Kristine A Comments: lot: [id number]: 05/01site/route: L del/IMamt: 1mLVIS signed when applicableCheRAYMUNDO carson Flu Vaccine (Quadrivalent) [id number]: On: 17-Jan-2017 Intent Fast DO, Kristine A [...] (J3420)By: On: 12-Dec-2016 Intent Visit, Nurse Comments: 36912/2018R arm, IM1ml, 1000mcgML, REACTOR OPERATOR B 12 Injection, 1000 mcg (J3420)By: On: [...] Kristine A Fast DO, Kristine A Comments: B12lot:[id number]:ite:lt deltroute:Imdose:1mlD.Solitario MA B 12 Injection, 1000 mcg (J3420)By: On: 19-Jul-2016 Intent Fast DO, Kristine A Fast DO, Kristine A Comments: lot: [id number]: ite/route: L del/IMamt: 1mlVIS signed when applicableChelsea, SLITTER OPERATOR B 12 Injection, 1000 mcg (J3420)By: On: [...] armGiven By:TAVON signed DEXA SCAN AXIAL SKELETON ([id number])By: On: 04-Apr-2016 Intent Fast DO, Kristine A Fast DO, Kristine A MRI LUMBAR SPINE W/O CONTRAST On: 04-Apr-2016 Intent ([id number])By: Fast DO, Kristine A Fast DO, Kristine [...] A ELECTROCARDIOGRAM, COMPLETE (ECG) On: 11-Dec-2015 Intent ([id number])By: Fast DO, Kristine A Fast Comments: ekg [...] MAMMOGRAM, SCREENING, BOTH BREAST On: 21-Apr-2015 Intent ([id number])By: Fast DO, Kristine A Fast DO, Kristine A B 12 Injection, 1000 mcg (J3420)By: On: 21-Apr-2015 Intent Fast DO, Kristine A Fast DO, Kristine A Comments: Lot:[id number]:11/27Dose:1mlRoute:IMSite:r arm Given By:JKMVIS signed B 12 Injection, 1000 mcg (J3420)By: On: 16-Mar-2015 Intent Fast DO, Kristine A Fast DO, Kristine A Comments: lot: [id number]: 06/27site/route: L del/IMamt: 1mLVIS signed when applicableKylee SLITTER OPERATOR B 12 Injection, 1000 mcg (J3420)By: On: 09-Feb-2015 Intent Fast DO, Kristine A Fast DO, Kristine A Comments: B12lot:[id number]:06/27site:lt deltoidroute:IMdose:1mlDEMICK, SMA B 12 Injection, 1000 mcg (J3420)By: On: 15-Jan-2015 Intent ZahraHunter erazo Comments: B 12Lot:[id number]:17site:lt deltoidroute:IMdose:.5mlDEMICK, SMA B 12 Injection, 1000 mcg (J3420)By: On: 10-Dec-2014 Intent Fast DO, Kristine A Fast DO, Kristine A Comments: lot [id number] - see ANOOP Mcallister CT - Abdomen & Pelvis (IV Contrast On: 16-Sep-2014 Intent Needed)By: Fast DO, Kristine A Fast DO, Kristine A B 12 Injection, 1000 mcg (J3420)By: On: 16-Sep-2014 Intent Fast DO, Kristine A Fast DO, Kristine A Comments: Lot:[id number]:11.16Route:IMSite:R deltoidDose: 1 mLgiven by: Carlita Ariza SLITTER OPERATOR B 12 Injection, 1000 mcg (J3420)By: On: 06-Aug-2014 Intent Fast DO, Kristine A Fast DO, Kristine A Comments: lot:[id number]:05/26route:IMdose:1MLSite:Right Deltoidgiven by: ANS B 12 Injection, 1000 mcg (J3420)By: On: 19-Jun-2014 Intent Visit, Nurse Comments: 4090a3.2016given, see ANOOP Altamirano B 12 Injection, 1000 mcg (J3420)By: On: 22-Apr-2014 Intent SlaSilvia buchanan LPN Comments: lot: [id number]: 4.16Dose: 1,000 mcgSite: l dltdLocation; IMby: Prevnar 13 ([id number])By: Fast DO, On: 24-Mar-2014 Intent Kristine A Fast DO, Kristine A Comments: lot: [id number]: 3/16site/route: L del/IMamt: 0.5mLVIS signed when applicableChels, [facility] Ultrasound - PelvisBy: Fast DO, On: 24-Mar-2014 Intent Kristine A Fast DO, Kristine A B 12 Injection, 1000 mcg (J3420)By: On: 24-Mar-2014 Intent Fast DO, Kristine A Fast DO, Kristine A Comments: lot: [id number]: 4/16site/route: R del/IMamt:1mlVIS signed when applicableCheMercy Hospital St. [facility] B 12 Injection, 1000 mcg (J3420)By: On: 24-Feb-2014 Intent Silvia Burton LPN Comments: lot: [id number]: 4.16Dose: 1,000 mcgSite: l dltdLocation; IMby: B 12 Injection, 1000 mcg (J3420)By: On: 22-Jan-2014 Intent Fast DO, Kristine A Fast DO, Kristine A Comments: lot [id number] 08/2015location L armroute imgiven by - msmith VIS and/or ABN signed B 12 Injection, 1000 mcg (J3420)By: On: 30-Dec-2013 Intent Fast DO, Kristine A Fast DO, Kristine A Comments: lot [id number] 05/2015location L armroute imgiven by - msmithVIS and/or ABN signed B 12 Injection, 1000 mcg (J3420)By: On: 28-Nov-2013 Intent Visit, Nurse Comments: given - see AONOP Altamirano Radiology - Thoracic SpineBy: Fast On: 06-Nov-2013 Intent DO, Kristine A Fast DO, Kristine A Radiology - Lumbar SpineBy: Fast On: 06-Nov-2013 Intent DO, Kristine A Fast DO, Kristine A CT - Abdomen & Pelvis Stone On: 05-Nov-2013 Intent ProtocolBy: Fast DO, Kristine A Fast Comments: today DO, Kristine A EKG ([id number])By: Fast DO, Kristine A On: 05-Nov-2013 Intent Fast DO, Kristine A Comments: ekg showed normal sinus rhythym, normal axis, no acute st/t wave changes B 12 Injection, 1000 mcg (J3420)By: On: 05-Nov-2013 Intent Fast DO, Kristine A Fast DO, Kristine A Comments: Lot:[id number]:11/24Dose:1mlRoute:IMSite:enoch armGiven By:TAVON signed PHYSICAL THERAPY EVALUATION On: 18-Oct-2013 Intent ([id number])By: Aquiles Potts CNP SPECIMEN HANDLING/TRANSPORT On: 18-Oct-2013 Intent ([id number])By: Aquiles Potts CNP B 12 Injection, 1000 mcg (J3420)By: On: 11-Oct-2013 Intent Aquiles Potts CNP Comments: Lot:[id number]:11/2013Dose:1mlRoute:IMSite:enoch Pierre By:TAVON signed B 12 Injection, 1000 mcg (J3420)By: On: 18-Sep-2013 Intent Fast DO, Kristine A Fast DO, Kristine A B 12 Injection, 1000 mcg (J3420)By: On: 07-Aug-2013 Intent Fast DO, Kristine A Fast DO, Kristine A Comments: lot: [id number]: ite/route: Enoch carey/IMamt: 1mLVIS signed when applicableChelsea, SLITTER OPERATOR MAMMOGRAM, SCREENING, BOTH BREASTS On: 24-Jun-2013 Intent ([id number])By: Fast DO, Kristine A Fast DO, Kristine A B 12 Injection, 1000 mcg (J3420)By: On: 24-Jun-2013 Intent Fast DO, Kristine A Fast DO, Kristine A Comments: Lot:[id number]:04/28Dose:1mlRoute:IMSite:enoch armGiven By:TAVON signed B 12 Injection, 1000 mcg (J3420)By: On: 15-May-2013 Intent Visit, Nurse Comments: Lot:[id number]:01/25Dose:1mlRoute:IMSite:enoch armGiven By:TAVON signed B 12 Injection, 1000 mcg (J3420)By: On: 22-Apr-2013 Intent Fast DO, Kristine A Fast DO, Kristine A Comments: lot: [id number]: 01/25site/route: L deltoid/IMamt: 1mLVIS signed when applicableChelsea, SLITTER OPERATOR B 12 Injection, 1000 mcg (J3420)By: On: 21-Mar-2013 Intent Fast DO, Kristine A Fast DO, Kristine A Comments: see flowsheetMegan PNEUM VAC ADLT/IMUMNOSPR, SBC/INTRM On: 18-Feb-2013 Intent (11231)By: Fast DO Kristine A Fast Comments: Lot: [id number]: 59Vgv38Nju: 0.5mlRoute: IMSite: L deltoidGiven by: ANOOP Moralez DO, Kristine A ADMINISTRATION OF PNEUMOCOCCAL On: 18-Feb-2013 Intent VACCINE (G0009)By: Antwan DO Kristine A Fast DO, Kristine A Eprescribed prescriptions On: 18-Feb-2013 Intent (G8553)By: Deanna Michelle B 12 Injection, 1000 mcg (J3420)By: On: 02-Jan-2013 Intent Deanna Michelle Comments: lot: [id number]: 10/25site/route: L deltoid/IMamt: 1mLVIS signed when applicableChelsea, SLITTER OPERATOR B 12 Injection, 1000 mcg (J3420)By: On: [...] 08/24site/route: R deltoid/IMamt: 1mLVIS signed when applicableChelsea, SLITTER OPERATOR B 12 Injection, 1000 mcg (J3420)By: On: 28-Aug-2012 Intent Antwan MIX Kristine A Fast DO, Kristine A Comments: Lot #:[id number] date:mount given:1mlRoute: IMSite given: left deltoidGiven by: AYAD Dailey B 12 Injection, 1000 mcg (J3420)By: On: 23-Jul-2012 Intent Fast DO, Kristine A Fast DO, Kristine A Comments: Lot: [id number]: 02/23Amt: 1000mcg/1mlRoute: IMSite: L Deltoid per pt [...] A Fast DO, Kristine A Comments: lot: [id number]:02/23site/route: L deltoid/IMamt: 1ccVIS signed when applicableCheRAYMUNDO carson B 12 Injection, 1000 mcg (J3420)By: On: 09-May-2012 Intent Kylee Castellon Comments: Lot:[id number]:02/2014Dose:1mlRoute:IMSite:L armGiven By:Jameson signed VENOUS DOPPLER LOWER EXTREMITY On: 18-Apr-2012 Intent ([id number])By: Fast DO, Kristine A Fast DO, Kristine A Radiology - Hip - RightBy: Fast DO, On: 06-Apr-2012 Intent Kristine A Fast DO, Kristine A Comments: call results B 12 Injection, 1000 mcg (J3420)By: On: 06-Apr-2012 Intent Lisandra Chilel Comments: Lot #[id number]-48/14Site-left deltoidDose-1 mlgiven by: Omkar Rivera LPN Eprescribed prescriptions On: 06-Apr-2012 Intent (G8553)By: Lisandra Chilel Inhaler Demo ([id number])By: Fast DO, On: 06-Feb-2012 Intent Kristine A Fast DO, Kristine A B 12 Injection, 1000 mcg (J3420)By: On: 06-Feb-2012 Intent Kylee Castellon Comments: Lot:[id number]:Dose:1mlRoute:IMSite:L armGiven By:TAVON signed MAMMOGRAM, SCREENING, BOTH BREASTS On: 06-Feb-2012 Intent ([id number])By: Fast DO, Kristine A Fast DO, Kristine [...] mlRoute: IMSite given: left deltoidGiven by: AMI Alcarazsign writer hand - Cervical SpineBy: Fast On: 13-Apr-2011 Intent DO, Kristine A Fast DO, Kristine A TD Injection , IM (10852)By: On: 13-Apr-2011 Intent Lisandra Chilel Comments: received in 2005 B 12 Injection, 1000 mcg (J3420)By: On: 29-Mar-2011 Intent Kateryna Lunsford MD Comments: Lot #[id number]-8.13Site-Left arm, IMDose 0.5mlgiven by:Татьяна B 12 Injection, 1000 mcg (J3420)By: On: 08-Feb-2011 Intent Татьяна Vera LPN Comments: Lot [id number]#Exp-7.13Site-R arm, IMDose 1mlgiven by:Татьяна DXA, BONE DENSITY, AXIAL SKELETON On: 24-Jan-2011 Intent ([id number])By: Lisandra Chilel Comments: post menopausal wihtout estrogen FLU VAC, SPLIT, >3 YEARS, INTRAMUSC On: 24-Jan-2011 Intent (88935)By: Lisandra Chilel Comments: received at [facility] B 12 Injection, 1000 mcg (J3420)By: On: 21-Dec-2010 Intent Tripp DAVALOS Licha INJECTION, VITAMIN B-12 On: 19-Nov-2010 Intent CYANOCOBALAMIN, UP TO 1000 MCG Comments: Lot:[id number]:04/25Amt:1mlRoute:IMSite:left deltGiven By: ANOOP Sotelo (Special Coverage Instructions Apply. See CIM: 45-4 and MCM: 2049) (J3420)By: Vi Ramirez EKG (31267)By: Lisandra Chilel On: 05-Nov-2010 Intent Comments: ekg showed normal sinus rhythym, normal axis, no acute st/t wave changes MAMMOGRAM, SCREENING, BOTH BREASTS On: 05-Nov-2010 Intent (36308)By: Fast DO, Kristine A Fast DO, Kristine [...] 03-Jun-2010 Intent Yasmeen Rivera LPN Comments: Lot #[id number]-left deltoidDose-1 mlgiven by:[facility] IMMUNIZ ADMNIN, 1 VAC, SNGL/COMBO On: 19-Apr-2010 Intent (59730)By: Yasmeen Rivera LPN Comments: Lot #[id number]-1/28/02Site-left deltoidDose- 0.85mlgiven by:[facility] [place] ([id number])By: Miguel On: 19-Apr-2010 Intent Yasmeen DAVALOS B 12 Injection, 1000 mcg (J3420)By: On: 19-Apr-2010 Intent Hluszti REACTOR OPERATOR, Yasmeen B 12 Injection, 1000 mcg (J3420)By: On: 22-Mar-2010 Intent Long REACTOR OPERATOR, Татьяна L Comments: Lot #[id number]-10/22Site-L arm, IMDose [...] Rivera LPN Comments: Lot #[id number]-07/22Site-left deltoidDose-1 mlgiven by:[facility] FLU VAC, SPLIT, >3 YEARS, INTRAMUSC On: 30-Dec-2009 Intent (12786)By: Lisandra Chilel Comments: Lot #[id number]-7/11Site-left deltoidgiven by:[facility] B 12 Injection, 1000 mcg (J3420)By: On: 30-Dec-2009 Intent Lisandra Chilel Comments: Lot #[id number]-07/22Site-right deltoidDose-1 mlgiven by:[facility] Renal Duplex ScanBy: Fast DO, Kristine On: 30-Dec-2009 Intent A Fast DO, Kristine A IMMUNIZ ADMNIN, 1 VAC, SNGL/COMBO On: 30-Dec-2009 Intent (08429)By: Lisandra Chilel B 12 Injection, 1000 mcg (J3420)By: On: 14-Dec-2009 Intent Shayna Harris Comments: Lot:[id number]:07/22Dose:1000mcg/1mlRoute:IMSite:right deltoid Given by: AYAD Gil B 12 Injection, 1000 mcg (J3420)By: On: 26-Nov-2009 Intent Phyllis Escobar RN Comments: documented in flowsheet B 12 Injection, 1000 mcg (J3420)By: On: 19-Oct-2009 Intent Yasmeen Rivera LPN Comments: Lot #[id number]-2/Site-left deltoidDose-1 mlgiven by:[facility] B 12 Injection, 1000 mcg (J3420)By: On: 13-Oct-2009 Intent Shayna Harris Comments: Lot:[id number]:2/12Dose:1000mcg/1mlRoute:imSite:right sideGiven by: AYAD Gil B 12 Injection, 1000 mcg (J3420)By: On: 06-Oct-2009 Intent Fast DO, Kristine A Fast DO, Kristine A Comments: Lot #[id number]-2Site-right deltoidDose- 1 mlgiven by:[facility] MRI - BrainBy: Fast DO, Kristine A [...] do this week and call ressults EKG ([id number])By: Fast DO, Kristine A On: 17-Dec-2008 Intent Fast DO, Kristine A Comments: ekg showed normal sinus rhythym, normal axis, no acute st/t wave changes MAMMOGRAM, SCREENING, BOTH BREASTS On: 17-Dec-2008 Intent ([id number])By: Fast DO, Kristine A Fast DO, Kristine A MRI - Lumbar SpineBy: Fast DO, On: 17-Dec-2008 Intent Kristine A Fast DO, Kristine A FLU VAC, SPLIT, >3 YEARS, INTRAMUSC On: 17-Dec-2008 Intent (31520)By: Lisandra Chilel Comments: Lot #:[id number] date:mount given:0.5mlRoute: IMSite given:left deltoidGiven by: AYAD Dailey ADMINISTRATION OF INFLUENZA VIRUS On: 17-Dec-2008 Intent VACCINE (G0008)By: Lisandra Chilel CT - Abdomen & Pelvis Stone On: 18-Aug-2008 Intent ProtocolBy: Fast DO, Kristine A Fast Comments: stat -call results DO, Kristine A Radiology - Chest- PA and LatBy: On: 24-Mar-2008 Intent Fast DO, Kristine A Fast DO, Kristine A Spirometry ([id number])By: Antwan DO, On: 24-Mar-2008 Intent Kristine A Fast DO, Kristine A Comments: good effort and curve minimal decrease small airways ADMINISTRATION OF PNEUMOCOCCAL On: 17-Dec-2007 Intent VACCINE (G0009)By: Fast DO, Kristine A Fast DO, Kristine A PNEUM VAC ADLT/IMUMNOSPR, SBC/INTRM On: 18-Dec-2007 Intent ([id number])By: Fast DO, Kristine A Fast Comments: Lot #:[id number] date:08/19Amount given:0.5mlRoute: IMSite given:left deltGiven by: AYAD Dailey DO, Kristine A MAMMOGRAM, SCREENING, BOTH BREASTS On: 17-Dec-2007 Intent ([id number])By: Fast DO, Kristine A Fast Comments: end of feb DO, Kristine A DXA, BONE DENSITY, AXIAL SKELETON On: 31-Oct-2007 Intent ([id number])By: Fast DO, Kristine A Fast DO, Kristine A Echo CompleteBy: Fast DO, Kristine A On: 25-Jul-2007 Intent Fast DO, Kristine A Bio Z ([id number])By: Fast DO, Kristine A On: 25-Jul-2007 Intent Fast DO, Kristine A Comments: good cardiac output and no excesive gfluid EKG ([id number])By: Fast DO, Kristine A On: 25-Jul-2007 Intent Fast DO, Kristine A Comments: ekg showed normal sinus rhythym, normal axis, no acute st/t wave changes CT - Abdomen & Pelvis (IV Contrast On: 11-Jul-2007 Intent Needed)By: Adrianna Morgan DO MAMMOGRAM, SCREENING, BOTH BREASTS On: 27-Mar-2006 Intent ([id number])By: Adrianna Morgan DO Planned Medications Vitamin B-12 [...] Pending Fast DO, Kristine A Fast DO, Kristnie A Vitamin B-12 1000 MCG/ML Injection Solution Ordered: 22-Apr-2014 Pending Slarb REACTOR OPERATOR, Silvia Vitamin B-12 1000 MCG/ML Injection Solution Ordered: 24-Mar-2014 Pending Fast DO, Kristine A Fast DO, Kristine A Vitamin B-12 1000 MCG/ML Injection Solution Ordered: 24-Feb-2014 Pending Slarb REACTOR OPERATOR, Silvia Vitamin B-12 1000 MCG/ML Injection Solution [...] MCG/ML Injection Solution Ordered: 05-Nov-2015 Pending [place], [place] Vitamin B-12 1000 MCG/ML Injection Solution Ordered: [...] online - Detail Indication[facility] Patient Instructions Indication: [facility] Wellness Physical Hip pain, right : How [...] / tylenol and - more mobile on Tristic days- cleo notices a difference Encounter Diagnosis: [...] went well- she saw Dr Mckeon in [facility] for pain management - had inje ction [...] emotional problems . Note for Physical exam: [facility] Wellness Physical- her hip bursitis better can [...] do a lot of walking Encounter Diagnosis: [facility] Wellness Physical, Nonsmoker, BMI 37.0-37.9, adult, Hip [...] procedure: ( End: 10-Dec-2014 21:34 / at [facility] with dr Mahesh stokes) . There have been no problems with general anesthesia or blood/blood products. Prosthetics include: dentures (partial). Note for Preoperative evaluation: [facility]- having spinal [...] scleroderma, leukopenia). Note for Follow up for maintenance man tim medical issues: Pt had colonoscopy done [...] scleroderma, leukopenia). Note for Follow up for maintenance man tim medical issues: No routine labs done [...] scleroderma, leukopenia). Note for Follow up for maintenance man tim medical issues: still having right lateral [...] scleroderma, leukopenia). Note for Follow up for maintenance man tim medical issues: sdhe is losing weight [...] scleroderma, leukopenia). Note for Follow up for maintenance man tim medical issues: feels well other than [...] scleroderma, leukopenia). Note for Follow up for maintenance man tim medical issues: No routine labs done [...] medical issues: she saw Jessee Stringer at [facility] for her groin pain- - said her [...] the rare occ that she takes at [facility] but doesnt know accuracy, [ADDITIONAL REASON] Follow [...]
--- OUTSIDE RECORDS SUMMARY | 2018-06-01 23:53 | XMS RPT_ITS | Continuity of Care Document ---
:1940 Author Organization [facility] Address [address] [facility] [address] [place] [address] Phone Care Team Providers Name Role Phone Kristine Davis DO Unavailable Dr. 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) [...] Irritable bowel syndrome (K58.9, 564.1) Status: Active Kidney cysts (753.10) Comments: monitor- appears even though complex its not changing - will verify with radiolgy Status: Active Low back pain (M54.5, 724.2) [...] days Quantity: 90 {Tablet} Refills: 3 Ordered:17-Jan-2017 Kristine Davis DO, DO, Debra A Start : 17-Jan-2017 Active Amoxicillin 500 MG Oral Capsule 4 caps 1 hr prior to dental work for 0 days Refills: 0 Ordered:02-Jan-2018 Kristine Davis DO, DO, Debra A Start : 02-Jan-2018 Active Clotrimazole-Betamethasone 1-0.05 % External Cream tad Cream Daily prn for 0 days Quantity: 3 {Tube} Refills: 1 Ordered:03-Mar-2017 Kristine Davis DO, DO, Debra A Start : 03-Mar-2017 Active Comments:PLEASE DISPENSE 3- 15GRAM TUBESPUT ON HOLD CYANOCOBALAMIN, 1000MCG/ML (Injection Solution) 1 (one) Solution one time dose for 1 days Quantity: 10 {Solution} Refills: 3 Ordered:21-Apr-2015 Lisandra Chilel Start : 28-Mar-2012 Active Diovan 160 MG Oral Tablet 1 (one) Tablet daily for 90 days Quantity: 90 {Tablet} Refills: 3 Ordered:03-Mar-2017 Antwan MIX Kristine GOTTIjuana Kristine A Start : 03-Mar-2017 Active Comments:PLEASE PUT ON HOLD Hydrocodone-Acetaminophen 5-325 MG Oral Tablet 1 (one) Tablet Tablet q 6 hours prn for 0 days Quantity: 60 {Tablet} Refills: 0 Ordered:02-Mar-2016 Antwan MIX Kristine GOTTIjuana Kristine A Start : 02-Mar-2016 Active Comments:[facility] report#[id number], df approved and given to pt-[facility] 03/02/16 Imipramine HCl 25 MG Oral Tablet 1 (one) Tablet qhs prn for 0 days Quantity: 30 {Tablet} Refills: 1 Ordered:14-Jul-2017 Antwan MIX Kristine GOTTIjuana MIX Kristine A Start : 14-Jul-2017 Active Comments:verbally called to [facility] 5/4 Leg Cramps 7 to 8 tabs q hs for leg cramps Active Levothyroxine Sodium 150 MCG Oral Tablet 1 tab Tablet qd for 90 days Quantity: 114 {Tablet} Refills: 3 Ordered:03-Mar-2017 Antwan MIX Kristine GOTTIjuana MIX Kristine A Start : 03-Mar-2017 Active Comments:2 full pills on mondayPLEASE PUT ON HOLD Librax 5-2.5 MG Oral Capsule 1 cap Capsule tid prn for 0 days Quantity: 90 {Capsule} Refills: 3 Ordered:18-Jan-2017 Antwan MIX Kristine GOTTICuauhtemoc arias DOa A Start : 18-Jan-2017 Active LUTEIN, 6MG (Oral Capsule) 1 BID for 0 days Refills: 0 Ordered:18-Dec-2008 Lisandra ChilelActive Mobic 15 MG Oral Tablet 1 (one) Tablet qod for 90 days Quantity: 90 {Tablet} Refills: 3 Ordered:18-Jan-2017 Antwan MIX Kristine GOTTIjuana MIX Kristine A Start : 18-Jan-2017 Active Omeprazole 40 MG Oral Capsule Delayed Release 1 (one) Capsule DR qd for 90 days Quantity: 90 {Capsule} Refills: 0 Ordered:10-Oct-2017 Deanna Michelle Start : 10-Oct-2017 Active Comments:per ER Quinine 2.5mg q hs Active TiZANidine HCl 4 MG Oral Capsule 1 (one) Capsule qd for 90 days Quantity: 90 {Capsule} Refills: 1 Ordered:18-Aug-2017 Kateryna Lunsford MD Start : 18-Aug-2017 Active Tumeric 800mg bid Active UBIQUINOL, 100MG (Oral Capsule) 1 cap daily (100 MG) Active Vitamin D3 89301 UNIT Oral Capsule 1 (one) Capsule once [...] days Quantity: 30 {Tablet} Refills: 6 Ordered:02-Jan-2018 DO Kristine AFast DO, Kristine A Start : 16-Oct-2017 End : 02-Jan-2018 Inactive PRILOSEC OTC, 20MG (Oral Tablet Delayed Release) 1 tab qd for 0 days Refills: 0 Ordered:05-Aug-2009 Lisandra ChilelInactive PROBIOTIC (Oral Tablet Delayed Release) 1 (one) Tablet DR qd 2 hours after atb for 14 days Quantity: 14 {Tablet} Refills: 0 Ordered:25-Nov-2013 Fast DO, Kristine AFast DO, Kristine A Start : 08-Nov-2013 End [...] : 11-Jul-2007 End : 08-Aug-2007 Discontinued Drisdol 39124 UNIT Oral Capsule 1 (one) Capsule once [...] Daily for 0 days Refills: 0 Ordered:13-Jul-2006 Brendan Adrianna MIX Start : 15-Jun-2006 End : 13-Jul-2006 Discontinued [...] Chilel End : 08-Aug-2007 Discontinued VITAMIN D, 24799PMYD (Oral Capsule) 1 cap q week (20233 UNIT) Start : 27-Mar-2013 End : 27-Mar-2013 Discontinued Comments:This order discontinued per [facility]. VITAMIN D, 44078MBFI (Oral Capsule) 1 cap Capsule q week [...] june 2015- Dr Lee Date Value Details 05-Oct-2017 TXT - Blood Flow Screening Result: Comments: See Note; NOTES: [facility] Cardiovascular Services [address] [place] [address] 10/02/17 0928 MR#: [id number] Acct: [id number] Name: VIRGINIA URRUTIA Rep #: [id number] : 1940 76 From: Johan Ortega MD Attending Dr: Kristine Davis DO Status: REG REF Ordering Dr: Date: 10/05/17 Location: [facility] Sex: F C Admitted: Reason For [...] MD CC: Kristine arias DO Date Dictated: 10/02/17927 Date Transcribed: 10/05/171656 Vice President Of Nursing: Signed 02-Oct-2017 SCREENING MAMM (CAD), BILAT Result: Comments: See Note; NOTES: [facility] Imaging Services [address] [place] [address] SCREENING MAMM (CAD), BILAT MR#: [id number] Acct: [id number] Name: VIRGINIA URRUTIA Rep #: [id number] : 1940 F 76 From: Noel Avitia MD PCP: Kristine Davis DO Status: REG CLI Study: SCREENING MAMM (CAD), BILAT Date of Exam: 10/02/17 Exam# [id number] Ordering Dr: Kristine Davis DO MAMMOGRAPHY - [...] Service support , CC: Kristine Davis DO Vice President Of Nursing: Signed 14-Sep-2016 Venous Duplex Lower Extremity Result: Comments: See Note; NOTES: [facility] Cardiovascular Services [address] [place] [address] Venous Duplex US, Unilateral 09/14/16 1558 MR#: [id number] Acct: [id number] Name: Sonia CLAYEVIEVIRGINIA Mook Rep #: [id number] : 1940 75 From: Johan Ortega MD [...] Ortega MD on 09/14/2016 05:15 PM 09/14/16 1717 Date Johan Ortega MD CC: Kristine Davis DO Date Dictated: 09/14/16 1558 Date Transcribed: 09/14/161714 Vice President Of Nursing: Signed 23-Aug-2016 Re-Evaluation - PT (1) Result: Comments: See Note; NOTES: [facility] [address] [place] [address]. [address] [place], [place] [address] Fax REEVALUATION / MEDICARE RECERTI FICATION [place] 4d PHYSICAL THERAPY MR#: [id number] Acct: [id number] Name: VIRGINIA URRUTIA Rep #: [id number] : 1940 75 From: Humberto Aguilar DPT, OCS, CSCS Referring : OUT OF TOWN DOCTOR Status : REG RCR Insurance: [employer] [facility] Out of Town Doctor, It has [...] do not hesitate to contact me at [phone] by phone or if you have questions or concerns regarding this new plan of care! Sincerely, Humberto Aguilar DPT, OC <Electronically signed by Humberto Aguilar DPT, PACHECO, CSCS> 08/23/16 0929 CC: Kristine Davis DO; OUT OF [facility] DOCTOR EBG Signed For Medicare only, by signing this I certify the plan of care. Physicians Signature Date 29-Jul-2016 Inital Evaluation (1) - PT Result: Comments: See Note; NOTES: [facility] [address] [place] [address]. [address] [place] [address] Fax REHABILITATION SERVICES INITIAL EVALUATION MR#: [id number] Acct: [id number] Name: VIRGINIA URRUTIA Rep #: [id number] : 1940 75 From: Humberto Aguilar DPT, PACHECO, CSCS Referring Dr.: OUT OF TOWN DOCTOR Status: REG RCR Insurance: [employer] [facility] Patient's Visit Information VIRGINIA URRUTIA is a 75 year old F referred to Physical Therapy by Out Town Doctor with a diagnosis of L knee pain s/p L TKA. Date of Evaluation: 07/29/16 Phys ical Therapist: Humberto Aguilar DPT, OC - Visit Plan Frequency: 3x [...] Stokes. Pain is not too bad.. currently /. Has had LB MRI adn has DDD [...] to be FAXED BACK to us at [phone] for Medica re purposes. Please let me [...] Department Summary Result: Comments: See Note; NOTES: [facility] Medical Records Department [address] [facility] [place] [address] Emergency Department Summary MR#: [id number] Acct: [id number] Name: VIRGINIA URRUTIA Rep #: [id number] : 1940 75 From: Byron Harris MD [...] C: Kristine Davis DO T: NTS JOB: [id number] 04/19/164 <Electronically signed by Byron Harris MD> Date Byron Harris MD Cosigner Signature (If Indicated): Date CC: Kristine Davis DO Date Dictated: 04/15/1634 Date Transcrib ed: 04/15/1634 Vice President Of Nursing: Signed 15-Apr-2016 Discharge Instruction Result: Comments: See Note; NOTES: [facility] Medical Records Department [address] [place] [address] Discharge Instruction 04/14/16 2307 MR#: [id number] Acct: [id number] Name: VIRGINIA URRUTIA Rep #: [id number] : 1940 75 From: Byron Harris MD [...] your Primary Care Provider. Call [facility] ([phone]) or report to the closest Emergency Room. Call 911 if necessary. 04/15/16 0118 &#6 0;Electronically signed by Byron Harris MD> Date Byron Harris MD Cosigner Signature (If Indicated): Date CC: Kristine Davis DO -Apr-2016 Venous Duplex Imag/Limited/Uni Result: Comments: See Note; NOTES: [facility] Imaging Services [address] [place] [address] [place] 4d Venous Duplex Imag/Limited/Uni MR#: [id number] Acct: [id number] Name: RHONA URRUTIA Rep #: [id number] : 1940 F 75 From: Doug Sinclair DO PCP: Kristine Davis DO Status: [facility] ER Study: Venous Duplex Imag/Limited/Uni Date of Exam: 04/14/16 Exam# [id number] Ordering Dr: Byron Harris MD STUDY: VENOUS [...] Doug Sinclair DO at 23:15 EST Tel [phone], Service support [phone], CC: Kristine Davis DO; Byron Harris MD Vice President Of Nursing: Signed 13-Apr-2016 Spine Lumbar (Routine) Result: Comments: See Note; NOTES: [facility] Imaging Services [address] [place] [address] Ver[place] 4d Spine Lumbar (Routine) MR#: [id number] Acct: [id number] Name: VIRGINIA URRUTIA p #: [id number] : 1940 F 75 From: Tiara Parsons MD PCP: Kristine Davis DO Status: REG CLI Study: Spine Lumbar (Routine) Date of Exam: 04/13/16 Exam# [id number] Ordering Dr: Kristine Davis DO STUDY: MRI [...] MD at 11:48 EST , Service support [phone], CC: Kristine Davis DO Vice President Of Nursing: Signed 12-Apr-2016 PT D/C Summary (1) Result: Comments: See Note; NOTES: [facility] [address] [facility] [place] [address] Fax REHABILITATION SERVICES DISCHAR GE SUMMARY MR#: [id number] Acct: [id number] Name: VIRGINIA URRUTIA Rep #: [id number] : 1940 75 From: Humberto Aguilar DPT, OCS, CSCS Referring Dr.: Kristine Davis DO Status: REG R Insurance: [facility] - PT D/C Summary It has been my pleasure to treat VIRGINIA URRUTIA under orders from Kristine Davis DO, for the diagnosis of R hip pain for a total of 12 visit(s). Discharge Date: [facility] for a summary of their discharge [...] help or hurt it. Will be in [place] in May and will have L TKA [...] please feel free to call me at [phone]. Thank eric laureano for the referral of this patient. Sincerely, Humbreto Aguilar DPT, OC <Electronically signed by Humberto Aguilar DPT, OCS, CSCS> 04/12/16 1621 CC: Kristine Davis DO EBG Signed 12-Apr-2016 Dexa Bone Density Study () Result: Comments: See Note; NOTES: [facility] Imaging Services [address] [place] [address] Verdana 4d Dexa Bone Density Study (HP) MR#: [id number] Acct: [id number] Name: URRUTIAENE DUBOSE Lizett Delvalle Rep #: [id number] : 1940 F 75 From: Dashawn Rowe MD PCP: Kristine Davis DO Status: REG CLI Study: Dexa Bone Density Study () Date of Exam: 04/12/16 Exam# [id number] Ordering Dr: Magallanes DO STUDY: DUAL ENERGY [...] Dashawn Rowe MD at 14:32 EST Tel [phone], Service support [phone], CC: Kristine Davis DO Vice President Of Nursing: Signed 10-Mar-2016 Inital Evaluation (1) - PT Result: Comments: See Note; NOTES: [facility] [address] [facility] [place] [address] Fax REHABILITATION SERVICES INITIAL EVALUATION MR#: [id number] Acct: [id number] Name: VIRGINIA URRUTIA Rep #: [id number] : 1940 75 From: Jennifer Gongora DPT Referring Dr.: Kristine Davis DO Status: REG RCR Insurance: [facility] isabella's Visit Information VIRGINIA URRUTIA is [...] to be FAXED BACK to us at [phone] for Medicare purposes. Please let me know if there are questio ns or concerns regarding this plan of care. Physician Signature: Date: <Electronically signed by Jennifer Gongora DPT> 1243 CC: Kristine Davis DO ELR Signed For Medicare only, by signing this I certify the plan of care. Physicians Signature Date 17-Dec-2015 Echocardiogram Complete Result: Comments: See Note; NOTES: [facility] Cardiovascular Services [address] [place] [address] Echo Complete 12/17/15 1401 MR#: [id number] Acct: [id number] Name: VIRGINIA URRUTIA Rep #: [id number] : 1940 75 From: Chicho Bahena MD Attending Dr: Kristine Davis DO Status: REG CLI Ordering Dr: Kristine Davis DO Date: 12/17/15 Location: [facility] Sex: F C Admitted: Reason For [...] change. Ordering Physician: Kristine Davis Performed By: Clyde, Bianka, RDCS, RVT 1700 Date Chicho Bahena MD CC: Kristine Davis DO Date Dictated: 12/17/15 1401 Date Transcribed: 12/17/151700 Vice President Of Nursing: Signed 11-Dec-2015 Bilat Scrn Digital AND CAD Result: Comments: See Note; NOTES: [facility] Imaging Services [address] [place] [address] Verdana 4d Bilat Scrn Digital AND CAD MR#: [id number] Acct: [id number] Name: VIRGINIA URRUTIA Rep #: [id number] : 1940 F 75 From: Dashawn Rowe MD PCP: Kristine Davis DO Status: REG CLI Study: Bilat Scrn Digital AND CAD Date of Exam: 12/11/15 Exam# [id number] Ordering Dr: Kristine Davis DO MAMMOGRAPHY - [...] significant change since the prior s dy. HPBI/Bilat Scrn Digital AND CAD IMPRESSION: Stable bilateral screening mammogram. Yearly follow-up mammogram recommended. (A) ASSESSMENT CATEGORY: BIRADS Category 1: Negative. A letter regarding these results will be sent to the patient by the facility within 30 days. Approximately 10% of breast canc ers are not detected by mammography. A normal mammogram should not delay biopsy of a clinically suspicious abnormality. [id number] Electronically Signed: Dashawn Rowe MD at 8:47 EDT Tel [phone], Service support [phone], CC: Kristine Davis DO Vice President Of Nursing: Signed 03-Jan-2015 Emergency Department Summary Result: Comments: See Note; NOTES: [facility] Medical Records Department [address] [place] [address] Emergency Department Summary MR#: [id number] Acct: [id number] Name: VIRGINIA URRUTIA Rep #: [id number] : 1940 74 From: Ivette Cline PCP: [...] Angel Grossman C: Kristine Davis DO T: NTS JOB: [id number] 01/03/152 <Electronically signed Marija Cline > Date Ivette Cline Cosigner Signature (If Indicated): Date CC: Kristine Davis DO Date Dictated: 12/27/141108 Date Transcribed: 12/27/141108 Vice President Of Nursing: Signed 27-Dec-2014 Discharge Instruction Result: Comments: See Note; NOTES: [facility] Medical Records Department [address] [place] [address] Discharge Instruction 12/27/14 1100 MR#: [id number] Acct: [id number] Name: VIRGINIA URRUTIA Rep #: [id number] : 1940 74 From: Ivette Cline PCP: [...] problems, contact your doctor. Call [facility] ([phone]) or report to the closest Emergency Room. Call 911 if necessary. 12/27/14 1106 <Electronically signed by Ivette Cline > Date Ivette Cline Cosigner Signature (If Indicated): Date _ CC: Kristine Davis DO 27-Dec-2014 Spine Cervical without Contras Result: Comments: See Note; NOTES: [facility] Imaging Services [address] [place] [address] Verdana 4d Spine Cervical without Contras MR#: [id number] Acct: [id number] Na me: VIRGINIA URRUTIA Rep #: [id number] : 1940 F 74 From: Doug Sinclair DO PCP: Kristine Davis DO Status: REG ER Study: Spine Cervical without Contras Date of Exam: 12/27/14 Exam# [id number] Ordering Dr : Ivette Cline STUDY: CT [...] Doug Sinclair DO at 10:36 EDT Tel [phone], Service suppo rt [phone], CC: Ivette Cline; Kristine Davis DO Vice President Of Nursing: Signed 23-Dec-2014 Emergency Department Summary Result: Comments: See Note; NOTES: [facility] Medical Records Department [address] [place] [address] Emergency Department Summary MR#: [id number] Acct: [id number] Name: VIRGNIIA URRUTIA Rep #: [id number] : 1940 74 From: Se Dawkins MD [...] acute. Se Dawkins MD T: NTS JOB: [id number] 12/23/14 0800 <Electronically signed by Se Dawkins MD> Date Se Dawkins MD Cosigner Signature (If Indicated): Date CC: Kristine Davis DO Date Dictated: 12/23/1408 Date Transcribed: 12/23/14707 Vice President Of Nursing: Signed 23-Dec-2014 Discharge Instruction Result: Comments: See Note; NOTES: [facility] Medical Records Department [address] [place] [address] Discharge Instruction 12/23/14704 MR#: [id number] Acct: [id number] Name: VIRGINIA URRUTIA Rep #: [id number] : 1940 74 From: Se Dawkins MD [...] problems, contact your doctor. Call [facility] ([phone]) or r eport to the closest Emergency Room. Call 911 if necessary. 12/23/14705 <Electronically signed by Se Dawkins MD> Date Se collins MD Cosigner Signature (If Indicated): Date CC: Kristine Davis DO 10-Dec-2014 ELECTROCARDIOGRAM, COMPLETE (ECG) (59965) Result: [MEASUREMENTS ANALYSIS] Date of Test: 12/10/2014 10:23:24; Heart Rate: 91; AK Interval: 144; QRS: 96; QT Interval: 372; Corrected QT Interval (QTc): 426; P [place]: 49; QRS [place]: 35; T [place]: 30; Blood Pressure: 0/0 [ECG DIAGNOSTIC STATEMENTS] Date of Test: 12/10/2014 10:23:24; Summary: Sinus Rhythm Low voltage in limb leads. ABNORMAL 22-Sep-2014 Abdomen/Pelvis WITH Contrast Result: Comments: See Note; NOTES: [facility] Imaging Services [address] [place] [address] CAT Scan Report MR#: [id number] Acct: [id number] Name: VIRGINIA URRUTIA Rep #: [id number] : 1940 F 73 From: Rey Rojo MD PCP: Kristine Davis DO Status: REG CLI Study: Abdomen/Pelvis WITH Contrast Date of Exam: 09/22/14 Exam# [id number] Ordering Dr: Kristine Davis DO STUDY : [...] IMPRESSION: No CT evidence of an ac jackson intra-abdominal or pelvic process. Redemonstrated small multiple gallstones and bilateral renal cysts. Normal appendix. Electronically Signed: Rey Rojo MD at 16:58 EDT Te l [phone], Service support [phone], CC: Kristine Davis DO Vice President Of Nursing: Signed 31-Mar-2014 Transvaginal Non- Result: Comments: See Note; NOTES: [facility] Imaging Services [address] [place] [address] Ultrasound Report MR#: [id number] Acct: [id number] Name: VIRGINIA URRUTIA Rep #: [id number] : 1940 F 73 From: Dashawn Rowe MD PCP: Kristine Davis DO Status: REG CLI Study: Transvaginal Non- Date of Exam: 03/31/14 Exam# [id number] Ordering Dr: Kristine Davis DO STUD Y: [...] Dashawn Rowe MD at 13:55 EST Tel [phone], Service support [phone], F ax [phone] CC: Kristine Davis DO Vice President Of Nursing: Signed 31-Mar-2014 Pelvic (Non ) Result: Comments: See Note; NOTES: [facility] Imaging Services [address] [place] [address] Ultrasound Report MR#: [id number] Acct: [id number] Name: VIRGINIA URRUTIA Rep #: [id number] : 1940 F 73 From: Dashawn Rowe MD PCP: Kristine Davis DO Status: REG CLI Study: Pelvic (Non ) Date of Exam: 03/31/14 Exam# [id number] Ordering Dr: Kristine Davis DO STUDY: U [...] Dashawn Rowe MD at 13:55 EST Tel [phone], Service support [phone], Fax CC: Kristine Davis DO Vice President Of Nursing: Signed 22-Jan-2014 Laverne Scrn Digital & CAD Result: Comments: See Note; NOTES: [facility] Imaging Services [address] [place] [address] Breast Imaging Report MR#: [id number] Acct: [id number] Name: VIRGINIA URRUTIA Rep #: [id number] : 1940 F 73 From: Dashawn Rowe MD PCP: Kristine Davis DO Status: REG CLI Exam# [id number] Ordering Dr: Kristine Davis DO MAMMOGRAPHY - [...] Dashawn Rowe MD at 14:49 EST Tel [phone], Ser vice support [phone], CC: Kristine Davis DO Vice President Of Nursing: Signed 07-Nov-2013 L/S Spine Min 4 Views Result: Comments: See Note; NOTES: [facility] Imaging Services [address] [place] [address] Radiology Report MR#: [id number] Acct: [id number] Name: VIRGINIA URRUTIA Rep #: [id number] : 1940 F 73 From: Tod Lamas MD PCP: Kristine Davis DO Status: REG CLI Study: L/S Spine Min 4 Views Date of Exam: 11/07/13 Exam# [id number] Ordering Dr: Kristine Davis DO STUDY: X-RA [...] at 18:52 EDT Tel , Service support [phone], CC: Kristine Davis DO Vice President Of Nursing: Signed 07-Nov-2013 Thoracic Spine 3 Views Result: Comments: See Note; NOTES: [facility] Imaging Services [address] [place] [address] Radiology Report MR#: [id number] Acct: [id number] Name: VIRGINIA URRUTIA Rep #: [id number] : 1940 F 73 From: Tod Lamas MD PCP: Kristine Davis DO Status: REG CLI Study: Thoracic Spine 3 Views Date of Exam: 11/07/13 Exam# [id number] Ordering Dr: Kristine Davis DO STUDY: X-R [...] at 17:07 EDT Tel , Service support [phone], CC: Kristine Davis DO Vice President Of Nursing: Signed 05-Nov-2013 Abdomen/Pelvis without Cont Result: Comments: See Note; NOTES: [facility] Imaging Services [address] [place] [address] CAT Scan Report MR#: [id number] Acct: [id number] Name: VIRGINIA URRUTIA Rep #: [id number] : 1940 F 73 From: Dashawn Rowe MD PCP: Kristine Davis DO Status: REG CLI Study: Abdomen/Pelvis without Cont Date of Exam: 11/05/13 Exam# [id number] Ordering Dr: Kristine Davis DO STUD Y: [...] Dashawn Rowe MD at 15:39 EDT Tel [phone], Service supp ort [phone], CC: Kristine Davis DO Vice President Of Nursing: Signed 07-Oct-2013 Kidney and Bladder Result: Comments: See Note; NOTES: [facility] Imaging Services [address] [place] [address] Ultrasound Report MR#: [id number] Acct: [id number] Name: URRUTIAVIRGINIA J Rep #: [id number] : 1940 F 72 From: Brook Cummings DO PCP: Kristine Davis DO Status: REG CLI Study: Kidney and Bladder Date of Exam: 10/07/13 Exam# [id number] Ordering Dr: Aquiles Potts STUDY: RENAL ULTRAS [...] at 23:16 EDT Tel , Service support [phone], CC: Aquiles Haydeekoryrafi; Kristine Davis DO Vice President Of Nursing: Signed Immunization Name Dates Details Influenza (3 years and up) on: 17-Dec-2008 Comments: Lot #:[id number] date:mount given:0.5mlRoute: IMSite given:left deltoidGiven by: AYAD [...] smoker Vital Signs Date Test Result Details 57-Lvh-741941:07 Temperature 97.9 f Comments: Method: Temporal Pulse [...] kg/m2 Body Surface Area Calculated 2.07 m2 21-Prc-416180:12 Temperature 97.6 f Pulse 92 /min Comments: [...] 0.00 cm Results Date Description Value Details :31 LIPID PANEL (10664) Comments: PATIENT WAS FASTINGPERFORMED BY: [id number] [id number]; appt 01/02 LDL/HDL Ratio 1.9 {ratio} (Normal) [...] be changing to: Male Female 40 - 257077 50 - 341749 Triglycerides 145 mg/dL (Normal) Range: 0-149 Cholesterol, Total 240 mg/dL (Abnormal) Range: 100-199 00-Owr-21085:31 METABOLIC PANEL, COMPREHENSIVE Comments: PATIENT WAS FASTINGPERFORMED BY: [email or web address] [id number] (19682) ALT (SGPT) 16 [iU]/L (Normal) Range: 0-32 [...] 8-27 Glucose 98 mg/dL (Normal) Range: 65-99 86-Opk-685591:13 METABOLIC PANEL, BASIC Comments: PATIENT NOT FASTINGPERFORMED BY: Video Blocks70 [facility]Select [facility] Hospital [id number]; review on 01/02 (42400) Calcium 9.9 mg/dL (Normal) Range: 8.7-10.3 Carbon [...] 8-27 Glucose 98 mg/dL (Normal) Range: 65-99 54-Muv-761210:38 GGT (Gamma Glutamyl Comments: PATIENT NOT FASTINGPERFORMED BY: Video Blocks70 [facility] [id number] Transferase) (34810) GGT 20 [iU]/L (Normal) Range: 0-60 42-Xri-690394:38 Alkaline Phosphatase (26785) Comments: PATIENT NOT FASTINGPERFORMED BY: LISBETH [facility] Vliufj1837 [facility] [place] [id number] Alkaline Phosphatase 131 [iU]/L (Abnormal) Range: 39-117 74-Yan-525974:38 THYROXINE FREE (83703) Comments: PATIENT NOT FASTINGPERFORMED BY: [facility] Jpnpmv9681 [facility] [place] [id number] T4,Free(Direct) 1.92 ng/dL (Abnormal) Range: 0.82-1.77 :38 FREE TRIDOTHYRONINE (T3) (85282) Comments: PATIENT NOT FASTINGPERFORMED BY: [facility] Whcwfo9026 [facility] [place] [id number] Triiodothyronine,Free,Serum 2.4 pg/mL (Normal) Range: 2.0-4.4 06-Yob-454454:38 VITAMIN B-12 (CYANOCOBALAMIN) Comments: PATIENT NOT FASTINGPERFORMED BY: [facility] Pergsp2019 [facility] [place] [id number] (27397) Vitamin B12 665 pg/mL (Normal) Range: 232-1245 37-Kpi-20438:06 VITAMIN B-12 (CYANOCOBALAMIN) Comments: PATIENT NOT FASTINGPERFORMED BY: [facility] Ajndmf8378 [facility] [place] [id number] (37306) Vitamin B12 1301 pg/mL (Abnormal) Range: 232-1245 2-Tuc-282962:25 Metabolic Panel, Comprehensive Comments: PATIENT NOT FASTINGPERFORMED BY: [facility] Mqpcmw0203 [facility] [place] [id number]; review on 08/28 (55174) ALT (SGPT) 10 [iU]/L (Normal) Range: 0-32 [...] 8-27 Glucose 84 mg/dL (Normal) Range: 65-99 1- :25 CBC WITH MANUAL DIFF (48962) Comments: PATIENT NOT FASTINGPERFORMED BY: LabCoUniversity HospitalKmexey1538 [facility] [id number] Immature Grans (Abs) 0.0 {x10E3/uL} (Normal) Range: [...] 3.77-5.28 WBC 7.9 {x10E3/uL} (Normal) Range: 3.4-10.8 1-Zzz-326640:59 METABOLIC PANEL, COMPREHENSIVE Comments: PATIENT NOT FASTINGPERFORMED BY: LabCoUniversity HospitalVkztde3794 [facility] [id number] (56016) ALT (SGPT) 10 [iU]/L (Normal) Range: 0-32 [...] 88 mg/dL (Normal) Range: 65-99 :46 TSH (42400) Comments: 6 weeks; PATIENT NOT FASTINGPERFORMED BY: [facility]agOur [facility] Hospital [id number] TSH 2.420 {uIU/mL} (Normal) Range: 0.450-4.500 :23 LIPID PANEL (64602) Comments: PATIENT WAS FASTINGPERFORMED BY: Endymed [facility] HospitalTopprOur Community Hospital [id number] LDL/HDL Ratio 1.6 {ratio_units} (Normal) Range: 0.0-3.2 [...] PANEL, COMPREHENSIVE Comments: PATIENT WAS FASTINGPERFORMED BY: Endymed [facility] [id number] (69736) ALT (SGPT) 15 [iU]/L (Normal) Range: 0-32 [...] Glucose, Serum 96 mg/dL (Normal) Range: 65-99 55-Aku-46837:23 CBC W/AUTO DIFF WBC (34586) Comments: PATIENT WAS FASTINGPERFORMED BY: LabCoUniversity HospitalCjjizv9448 [facility] [id number] Immature Grans (Abs) 0.0 {x10E3/uL} (Normal) Range: [...] (Normal) Range: 3.4-10.8 :23 Vitamin D Hydroxy (27217) Comments: PATIENT WAS FASTINGPERFORMED BY: Evince6370 [facility] [id number] Vitamin D, 25-Hydroxy 41.5 ng/mL (Normal) Range: 30.0-100.0 Comments: Vitamin D deficiency has been defined by the [place] ofPrem[facility] Health [facility] Hospitalcine and an Endocrine Society practice guideline as alevel of serum 25-OH vitamin D less than 20 ng/mL (1,2).The Endocrine Society went on to further define vitamin Dinsufficiency as a level between 21 and 29 ng/mL (2).1. IOM ([place] of Medicine). 2010. Dietary reference intakes for calcium and D. [place]: The National Academies Press.2. Seng MF, Theresa NC, Kieran KOWALSKI, et al. Evaluation, treatment, and prevention of vitamin D deficiency: an Endocrine Society clinical practice guideline. JCEM. 2010; 96(7):1911-30. :23 TSH (22195) Comments: PATIENT WAS FASTINGPERFORMED BY: TranslateMedia [facility] Skbnem6763 [facility] Psych[facility] HospitalDublin [place] [id number] TSH 0.429 {uIU/mL} (Abnormal) Range: 0.450-4.500 84-Atp-85542:23 VITAMIN B-12 (CYANOCOBALAMIN) Comments: PATIENT WAS FASTINGPERFORMED BY: [facility]6370 [facility] [id number] (68982) Vitamin B12 553 pg/mL (Normal) Range: 211-946 6-Ozt-731795:52 CBC, PLATELETS & MANUAL DIFF Comments: PATIENT NOT FASTINGPERFORMED BY: [facility]6370 [facility] [id number] (23252) Immature Grans (Abs) 0.0 {x10E3/uL} (Normal) Range: [...] 3.4-10.8 :09 Basic Metabolic Profile (BMP) Comments: [facility] Gjsmanxxnw[address] [place], [place], [phone] GAP 9 (Normal) Range: 5-15 CO2 29.0 [...] :09 CBC-Complete Blood Cnt No Diff Comments: [facility] Xvvbxkdrxn38[address] [place], [place], [phone] MPV 9.1 fL (Normal) Range: 6.2-12.0 PLT [...] 5.7 K/mm3 (Normal) Range: 4.4-11.0 :53 Magnesium (45249) Comments: PATIENT NOT FASTINGPERFORMED BY: LabCoUniversity HospitalWxpezv5243 [facility] [id number] Magnesium, Serum 1.9 mg/dL (Normal) Range: 1.6-2.3 :53 METABOLIC PANEL, COMPREHENSIVE Comments: PATIENT NOT FASTINGPERFORMED BY: LabCoUniversity HospitalJvmytr7661 [facility] [id number]; non- emergent till apt (98874) ALT (SGPT) 18 [iU]/L (Normal) Range: 0-32 [...] Glucose, Serum 83 mg/dL (Normal) Range: 65-99 79-Sly-84256:53 TSH (26496) Comments: PATIENT NOT FASTINGPERFORMED BY: [facility] Urtyef0786 Oliva RoadDublin [place] [id number] TSH 1.810 {uIU/mL} (Normal) Range: 0.450-4.500 58-Jin-202598:15 Vitamin D Hydroxy (01526) Comments: PATIENT NOT FASTINGPERFORMED BY: [facility] Optrkf9741 Oliva RoadDublin [place] [id number] Vitamin D, 25-Hydroxy 28.3 ng/mL (Abnormal) Range: 30.0-100.0 Comments: Vitamin D deficiency has been defined by the [place] ofMedicine and an Endocrine Society practice guideline as alevel of serum 25-OH vitamin D less than 20 ng/mL (1,2).The Endocrine Society went on to further define vitamin Dinsufficiency as a level between 21 and 29 ng/mL (2).1. IOM ([place] of Medicine). 2010. Dietary reference intakes for calcium and D. [place]: The National Academies Press.2. Seng MF, [place], Kieran KOWALSKI, et al. Evaluation, treatment, and prevention of vitamin D deficiency: an Endocrine Society clinical practice guideline. JCEM. 2010; 96(7):1911-30. 37-Vot-175878:15 VITAMIN B-12 (CYANOCOBALAMIN) Comments: PATIENT NOT FASTINGPERFORMED BY: [facility] Dziixk2862 [address] [facility] HospitalDublin [place] [id number] (69917) Vitamin B12 447 pg/mL (Normal) Range: 211-946 83-Ild-581015:15 CBC W/AUTO DIFF WBC Comments: PATIENT NOT FASTINGPERFORMED BY: [facility] Luokdi0786 [address] [facility] HospitalDublin [place] [id number] Information: SRC:UC (11324) Immature Grans (Abs) 0.0 {x10E3/uL} (Normal) Range: [...] 3.77-5.28 WBC 5.6 {x10E3/uL} (Normal) Range: 3.4-10.8 43-Kvb-454279:15 METABOLIC PANEL, COMPREHENSIVE Comments: PATIENT NOT FASTINGPERFORMED BY: LabCoUniversity HospitalGfyabp4873 [facility] [id number] (10705) ALT (SGPT) 13 [iU]/L (Normal) Range: 0-32 [...] Glucose, Serum 87 mg/dL (Normal) Range: 65-99 84-Kdt-160400:50 Urinalysis, Office (17603) UA - LEUKOCYTE ESTERASE Trace (Normal) UA - NITRITE Negative (Normal) URINE UROBILINGN TUNDE TIMED Normal mg/dL (Normal) UA - PROTEIN Negative mg/dL (Normal) UA - PH 5 (Abnormal) UA - BLOOD Negative (Normal) UA - SPECIFIC GRAVITY 1.025 (Normal) UA - KETONES Negative mg/dL (Normal) UA - BILIRUBIN Negative (Normal) UA - GLUCOSE Negative (Normal) 68-Som-205762:15 URINE CESAR CULTURE (TUNDE COL Comments: PATIENT NOT FASTINGPERFORMED BY: [employer] Grdljk7592 [facility] [id number] COUNT) (53672) Result 1 MUG (Normal) Comments: Mixed urogenital floraGreater than 100,000 colony forming units per mL Urine Culture,Comprehensive Final report (Normal) 32-Hyp-624549:29 URINE CESAR CULTURE-IDENTIFICATN Comments: PATIENT NOT FASTINGPERFORMED BY: [employer] [facility] Juudxg3723 [facility] [id number] Information: [id number] (65689) Result 1 MUG (Normal) Comments: Mixed urogenital flora1,000 Colonies/mL Urine Culture,Comprehensive Final report (Normal) 92-Npv-634852:29 URINE CESAR CULTURE-TUNDE COL Comments: PATIENT NOT FASTINGPERFORMED BY: [employer] Eeijsq9643 [facility] [id number] Information: SRC:[facility] [id number] [place] (81448) Result 1 MUG (Normal) Comments: Mixed urogenital flora25,000-50,000 colony forming units per mL Urine Final report (Normal) Culture,Comprehensive 53-Wle-898788:07 Urinalysis, Office (39948) UA - LEUKOCYTE ESTERASE Small (Normal) UA - NITRITE Negative (Normal) URINE UROBILINGN TUNDE TIMED Normal mg/dL (Normal) UA - PROTEIN Negative mg/dL (Normal) UA - PH 5 (Abnormal) UA - BLOOD Hemolyzed Trace (Normal) UA - SPECIFIC GRAVITY 1.015 (Normal) UA - KETONES Negative mg/dL (Normal) UA - BILIRUBIN Negative (Normal) UA - GLUCOSE Negative (Normal) 1-Pmt-120132:02 URINE CESAR CULTURE (TUNDE Comments: PATIENT NOT FASTINGPERFORMED BY: FashionStakeCedar [facility] Hospital Lbgerp[address] [place] [address] [id number] Information: SRC:UR [id number] COL COUNT) (64191) Result 1 NG36 (Normal) Comments: No growth in 36 - 48 hours. Urine Culture,Comprehensive Final report (Normal) 17-Sep-20149:51 CBC With Differential/Platelet Comments: PATIENT NOT FASTINGPERFORMED BY: TranslateMedia LabForest View Hospital6370 [facility] [id number] Information: [id number] Immature Grans (Abs) 0.0 {x10E3/uL} (Normal) Range: [...] Panel (14) Comments: PATIENT NOT FASTINGPERFORMED BY: LISBETH LabForest View Hospital6370 [facility] [id number] ALT (SGPT) 11 [iU]/L (Normal) Range: 0-32 [...] (Normal) Range: 65-99 :13 SED RATE ERYTHROCYTE (51179) Comments: PATIENT WAS FASTINGPERFORMED BY: Resale TherapyUniversity HospitalXkpnmz4686 [facility] [id number] Sedimentation Rate-Westergren 6 mm/h (Normal) Range: 0-40 :13 C-REACTIVE PROTEIN (61871) Comments: PATIENT WAS FASTINGPERFORMED BY: [employer]CoGlobal[employer] Fgmyoe1392 [facility] [id number] C-Reactive Protein, Quant 2.2 mg/L (Normal) Range: 0.0-4.9 :13 CBC W/AUTO DIFF WBC Comments: PATIENT WAS FASTINGPERFORMED BY: [employer] LabCoUniversity HospitalOmkxme5531 [facility] [id number] Information: [id number] (59696) Immature Grans (Abs) 0.0 {x10E3/uL} (Normal) Range: [...] 3.77-5.28 WBC 4.6 {x10E3/uL} (Normal) Range: 3.4-10.8 27-Igt-83015:13 TSH (82568) Comments: PATIENT WAS FASTINGPERFORMED BY: LabCoUniversity HospitalNdyiwq7341 [facility] [id number] TSH 0.584 {uIU/mL} (Normal) Range: 0.450-4.500 13-Wfj-751592:42 Urinalysis, Office (17399) UA - LEUKOCYTE ESTERASE Small (Normal) UA - NITRITE Negative (Normal) URINE UROBILINGN TUNDE TIMED Normal mg/dL (Normal) UA - PROTEIN Negative mg/dL (Normal) UA - PH 6 (Abnormal) UA - BLOOD Negative (Normal) UA - SPECIFIC GRAVITY 1.025 (Normal) UA - KETONES Negative mg/dL (Normal) UA - BILIRUBIN Negative (Normal) UA - GLUCOSE Negative (Normal) 04-Wxe-702890:43 URINE CESAR CULTURE (TUNDE Comments: PATIENT NOT FASTINGPERFORMED BY: [employer] Vcdwli2956 [facility] [id number] Information: SRC:ELI [id number] COL COUNT) (88509) Result 1 MUG (Normal) Comments: Mixed urogenital flora25,000-50,000 colony forming units per mL Urine Final report (Normal) Culture,Comprehensive :13 Vitamin D Hydroxy (35122) Comments: PATIENT WAS FASTINGPERFORMED BY: [employer] Zuhnwz7565 [facility] [id number] Vitamin D, 25-Hydroxy 38.7 ng/mL (Normal) Range: 30.0-100.0 Comments: Vitamin D deficiency has been defined by the [place] ofMedicine and an Endocrine Society practice guideline as alevel of serum 25-OH vitamin D less than 20 ng/mL (1,2).The Endocrine Society went on to further define vitamin Dinsufficiency as a level between 21 and 29 ng/mL (2).1. IOM ([place] of Medicine). 2010. Dietary reference intakes for calcium and D. [place]: The National Academies Press.2. Seng MF, [place], Kieran KOWALSKI, et al. Evaluation, treatment, and prevention of vitamin D deficiency: an Endocrine Society clinical practice guideline. JCEM. 2010; 96(7):1911-30. :13 LIPID PANEL (72838) Comments: PATIENT WAS FASTINGPERFORMED BY: [employer] Tcquqq6264 [facility] [id number] LDL/HDL Ratio 1.8 {ratio_units} (Normal) Range: 0.0-3.2 [...] PANEL, COMPREHENSIVE Comments: PATIENT WAS FASTINGPERFORMED BY: [facility] [id number] (39147) ALT (SGPT) 14 [iU]/L (Normal) Range: 0-32 [...] Glucose, Serum 86 mg/dL (Normal) Range: 65-99 :13 VITAMIN B-12 (CYANOCOBALAMIN) Comments: PATIENT WAS FASTINGPERFORMED BY: Profylein [place] [id number] (77478) Vitamin B12 >1999 pg/mL (Abnormal) Range: 211-946 94-Vvt-222004:00 Metabolic Panel, Basic Comments: 6 weeks; PATIENT NOT FASTINGPERFORMED BY: [facility]6370 [facility] [id number] Information: [id number] (20962) Calcium, Serum 9.7 mg/dL (Normal) Range: 8.6-10.2 [...] Glucose, Serum 90 mg/dL (Normal) Range: 65-99 89-Rjj-220748:24 URINE CESAR CULTURE-IDENTIFICATN Comments: PATIENT NOT FASTINGPERFORMED BY: [facility]6370 [facility] [id number] Information: [id number] (55688) Result 1 ENTEGA (Abnormal) Comments: Enterococcus caxeqmcdfe24,000-25,000 colony forming units per mLNote: For enterococci with intrinsic intermediate-level resistance tovancomycin, such as E. casseliflavus and E. gallinarum, VRE infection control measures are not applicable, per the CLSI (formerly NCCLS).For Enterococcus species, cephalosporins, aminoglycosides (except forhigh-level resistance screening), clindamycin, and trimethoprim-curtis lfamethoxazole are not effective clinically. Fluoroquinolones areused primarily for treating urinary tract infections. (CLSI, F826-V72,2009) S = Susceptible; I = Intermediate; R = Resistant * P = Positive; N = Negative MICS are expressed in micrograms per mL Antibiotic RSLT#1 RSLT#2 RSLT#3 RSLT#4Ciprofloxacin SGentami lien 500 SLevofloxacin SNitrofurantoin IPenicillin SStreptomycin 2000 STetracycline SVancomycin R Urine Final report (Abnormal) Culture,Comprehensive 23-Jrm-185814:51 METABOLIC PANEL, Comments: PATIENT NOT FASTINGPERFORMED BY: LISBETH [employer] [facility] [id number] Information: [id number] [facility] (39189) ALT (SGPT) 20 [iU]/L (Normal) Range: 0-32 [...] Glucose, Serum 80 mg/dL (Normal) Range: 65-99 27-Jhr-435224:04 Microscopic Examination Comments: PATIENT NOT FASTINGPERFORMED BY: Endymed RoadDublin [place] [id number] Bacteria Few (Normal) Mucus Threads Present (Normal) Epithelial Cells (non renal) 0-10 {/hpf} (Normal) Range: 0 - 10 RBC None seen {/hpf} (Normal) Range: 0 - 2 WBC None seen {/hpf} (Normal) Range: 0 - 5 46-Itt-141535:04 URINE CESAR CULTURE (TUNDE COL Comments: PATIENT NOT FASTINGPERFORMED BY: [facility]6370 [facility] [id number] COUNT) (68025) Antimicrobial MIHEAD (Normal) Comments: S = Susceptible; [...] mL (Abnormal) Urine Final report Culture,Comprehensive (Abnormal) 07-Hpk-225699:04 URINALYSIS, W/ MICRO Comments: PATIENT NOT FASTINGPERFORMED BY: [facility]6[address] [facility] [id number] Information: SRC:UR [id number] (17952) Microscopic Examination See below: (Normal) Comments: Microscopic was indicated and was performed. Microscopic Examination MICRON (Normal) Comments: Microscopic follows if indicated. Nitrite, Urine Negative (Normal) Bilirubin Negative (Normal) Urobilinogen,Semi-Qn 0.2 mg/dL (Normal) Range: 0.0-1.9 Ketones Negative (Normal) Occult Blood Negative (Normal) Glucose Negative (Normal) Protein Negative (Normal) WBC Esterase Negative (Normal) Appearance Clear (Normal) Urine-Color Yellow (Normal) pH 6.0 (Normal) Range: 5.0-7.5 Specific Schertz 1.010 (Normal) Range: 1.005-1.030 55-Jhv-429257:00 METABOLIC PANEL, Comments: PATIENT NOT FASTINGPERFORMED BY: LISBETH [facility] Fsgfvk7168 [facility] [id number] Information: [id number] [facility] (62884) ALT (SGPT) 11 [iU]/L (Normal) Range: 0-32 [...] Glucose, Serum 84 mg/dL (Normal) Range: 65-99 62-Uax-35982:26 CMP Comments: will review at 11/05 appt [...] CHOL 200 mg/dL (Normal) Comments: <200 mg/dL Iqocadhln229-097 mg/dL Borderline>240 mg/dL High Risk :26 TSH 1.85 {uIU/mL} (Normal) Range: 0.358-3.74 :26 VITD 72.9 mg/mL (Normal) Comments: will review at - appt Comments: Vitamin D 25(OH) Status RangeDeficiency <20 ng/mL (50nmol/L)Insuffciency 20 - 30 ng/mL (50 - 75 nmol/L)Sufficiency 30 - 100 ng/mL (75 - 250 nmol/L)Toxicity >100 ng/mL (>250 nmol/L) 6-Yzt-370620:05 Urinalysis, Office (19188) UA - LEUKOCYTE ESTERASE Negative (Normal) UA - NITRITE Negative (Normal) URINE UROBILINGN TUNDE TIMED 2 mg/dL (Normal) UA - PROTEIN 30 mg/dL (Normal) UA - PH 6.0 (Normal) Comments: 5.5 UA - BLOOD Negative (Normal) UA - SPECIFIC GRAVITY 1.030 (Abnormal) UA - KETONES Small mg/dL (Normal) UA - BILIRUBIN Negative (Normal) UA - GLUCOSE Negative (Normal) 6-Dto-111762:33 URINE CESAR CULTURE-TUNDE COL Comments: PERFORMED BY: [employer] [facility] Fwfshx9795 [facility] [id number] COUNT (62564) Result 1 MUG (Normal) Comments: Mixed urogenital flora10,000-25,000 colony forming units per mL Urine Final report (Normal) Culture,Comprehensive 70-Yyj-559517:52 URINE CESAR CULTURE-TUNDE COL Comments: PATIENT NOT FASTINGPERFORMED BY: [facility] [place]P[address] [facility] [id number] Information: SRC:UR [id number] COUNT (30504) Antimicrobial MIHEAD (Normal) Comments: S = Susceptible; [...] CHOL 203 mg/dL (Abnormal) Comments: <200 mg/dL Jlnyjsccr278-665 mg/dL Borderline>240 mg/dL High Risk :47 TSH 1.52 {uIU/mL} (Normal) Range: 0.358-3.74 :47 VITD 59.3 mg/mL (Normal) Comments: Vitamin D 25(OH) Status RangeDeficiency <20 ng/mL (50nmol/L)Insuffciency 20 - 30 ng/mL (50 - 75 nmol/L)Sufficiency 30 - 100 ng/mL (75 - 250 nmol/L)Toxicity >100 ng/mL (>250 nmol/L) :44 CBC, PLATELETS & AUT DIFF Comments: PATIENT NOT FASTINGPERFORMED BY: LISBETH [facility] Ugrxdt3628 Hazel [facility]oOur [facility] Hospital [id number] Information: [id number] (77114) Immature Grans (Abs) 0.0 {x10E3/uL} (Normal) Range: [...] 3.77-5.28 WBC 6.4 {x10E3/uL} (Normal) Range: 3.4-10.8 0-Ocu-514527:44 FOLIC ACID SERUM (93821) Comments: PATIENT NOT FASTINGPERFORMED BY: [facility]6[address] [facility] [id number] Folate (Folic Acid), Serum 14.4 ng/mL (Normal) Comments: A serum folate concentration of less than 3.1 ng/mL isconsidered to represent clinical deficiency. :44 RETICULOCYTE COUNT MANUL Comments: PATIENT NOT FASTINGPERFORMED BY: [place] [address] [facility] [id number] (32053) Reticulocyte Count 1.1 % (Normal) Range: 0.6-2.6 :44 LDH (LD) (LACTATE DEHYDROGENASE) Comments: PATIENT NOT FASTINGPERFORMED BY: [place] [address] [facility] [id number] (69922) LDH 250 [iU]/L (Abnormal) Range: 0-214 :44 IRON BINDING CAPACITY (TIBC) Comments: PATIENT NOT FASTINGPERFORMED BY: [facility]6[address] [facility] [id number] (50597) Iron Saturation 16 % (Normal) Range: 15-55 Iron, Serum 52 ug/dL (Normal) Range: 35-155 UIBC 270 ug/dL (Normal) Range: 150-375 Iron Bind.Cap.(TIBC) 322 ug/dL (Normal) Range: 250-450 :44 FERRITIN (26195) Comments: PATIENT NOT FASTINGPERFORMED BY: [facility]6[address] [facility] [id number] Ferritin, Serum 42 ng/mL (Normal) Range: 15-150 [...] 4.2-5.4 WBC 5.5 K/mm3 (Normal) Range: 4.4-11.0 20-Jnk-46059:23 CMP GAP 8 (Normal) Range: 5-15 CO2 [...] :23 FT3 2.6 pg/mL (Normal) Range: 2.18-3.98 : T4F 1.27 ng/dL (Normal) Range: 0.76-1.46 :23 TSH 2.53 {uIU/mL} (Normal) Range: 0.358-3.74 : VITD 85.4 mg/mL (Normal) Comments: Vitamin D 25(OH) Status RangeDeficiency <20 ng/mL (50nmol/L)Insuffciency 20 - 30 ng/mL (50 - 75 nmol/L)Sufficiency 30 - 100 ng/mL (75 - 250 nmol/L)Toxicity >100 ng/mL (>250 nmol/L) :50 TSH 1.02 {uIU/mL} (Normal) Range: 0.358-3.74 35-Mnj-095748:02 BILAT SCRN DIGITAL & CAD Radiology Report [...] Rowe M.D.July 23, 2012 at 2:35:49 PM [phone] Signed GP/GP If you are the referring physicia n and would like to consult with theradiologist who provided this interpretation, please contact Ofelia Rodriguez at [phone]. If this radiologist is unavailable, youwill be directed to [facility] radiologist to assist. If you are a patient with a question regarding this report, pleasecontactyour referring physician directly. Professional Interpretation Provided By: [employer], Phone , These documents contain legally protected and confidential healthinformation intended only for the use of the individual or entity namedabove. If you are not the intended recipie nt, you are hereby notifiedthatany disclosure, copying, distribution, or other use of these documents isstrictly prohibited. If you have received this information in error,pleasenotify the sender immedivone stephensly and arrange for the return or destructionofthese documents. Dictated on 07/23/12 1402 by Jennifer Rowe MDranscribed on 07/23/12 1438 by ITS IMPORTSign by Dashawn Rowe MD on 3 1439 Sign by: Dashawn Rowe MD 5-Wxt-862421:59 KIDNEY Radiology Report See Note (Normal) Comments: [...] Welsh M.D.July 11, 2012 at 5:00:06 PM Signed TT/TT If you are the referring physician and would like to consult with theradiologist who provided this interpretation, please contact Brittney Mccormack M.D. at [phone]. If this radiologist is unavailable, youwillbe directed to another radiologist to assist. If you are a patient with a question regarding this report, pleasecontactyour referring physician directly. Professional Interpretat ion Provided By: [employer], Phone , These documents contain legally protected and confidential healthinformation intended only for the use of the individual or entity sarah patel. If you are not the intended recipient, you are hereby notifiedthatany disclosure, copying, distribution, or other use of these documents isstrictly prohibited. If you have received this informa tion in error,pleasenotify the sender immediately and arrange for the return or destructionofthese documents. Dictated on 07/11/12 1528 by Blaise CARRANZA,TheresaTranscribed on 07/11/121824 by ITS IMPORTS ign by Brittney Welsh MD on 07/11/121825 Sign by: Brittney Welsh MD 1-Brc-499421:59 TRANSVAGINAL NON- Radiology Report See Note (Normal) [...] Welsh M.D.July 11, 2012 at 4:45:28 PM [phone] Signed TT/TT If you are the referring physician and would like to consult with sebastian diologjudi who provided this interpretation, please contact Brittney Mccormack M.D. at [phone]. If this radiologist is unavailable, youwillbe directed to another radiologist to assist. If you are a p atient with a question regarding this report, pleasecontactyour referring physician directly. Professional Interpretation Provided By: [employer], Phone , These documents contain legally protected [...] by Blaise CARRANZA,Brittney on 07/11/121652 Sign by: Brittney Welsh MD 06-Jul-2012 B12 615 pg/mL Range: 211-911 9:44 [...] CHOL 210 mg/dL (Abnormal) Comments: <200 mg/dL Wbzwgmnmq916-280 mg/dL Borderline>240 mg/dL High Risk :44 MG 1.8 mg/dL (Normal) Range: 1.8-2.4 :44 SED tSEDRATE 18 mm/h (Normal) Range: 0-30 :44 TSH 8.94 {uIU/mL} (Abnormal) Range: 0.358-3.74 :44 VITD 90.8 ng/mL (Normal) Comments: Vitamin D 25(OH) Status RangeDeficiency <20 ng/mL (50nmol/L)Insufficiency 20 - 30 ng/mL (50 - 75 nmol/L)Sufficiency 30 - 100 ng/mL (75 - 250 nm ol/L)Toxicity >100 ng/mL (250 nmol/L)Effective 201204-Jul-201234-Net-471023:29 ABDOMEN/PELVIS WITH CONTRAST Radiology Report See Note [...] to well characterize low-attenuation left renal lesion,probably underwriting account representative of a cyst. Consider follow-up renal sonographyforfurther evaluation as clinically warranted. Signed:Matilda AvilesJuly 04, 2012 at 5:12:21 PM [phone] Signed DL/DL If you are the referring physician and would like to consult with theradiologist who provided this interpretation, please contact Ofelia Kyle at [phone]. If this radiologist is unavailable, youwillbe directed to another radiologist to assist. If you are a patient with a question regarding this report, pleasecontactyo ur referring physician directly. Professional Interpretation Provided By: [employer], Phone , These documents contain legally protected [...] the return or destructionofthese documents. Dictated on 07/04/121607 by Salinas Newsome MDTranscribed on 07/04/121713 by ITS IMPORTSign by Salinas Champion MD on 07/04/121714 Sign by: Salinas Champion MD 92-Gyd-956029:18 CRE GFRAA 41 mL/min (Abnormal) GFR 34 mL/min (Abnormal) CREAT 1.6 mg/dL (Abnormal) Range: 0.6-1.0 63-Oim-473971:15 BMP GAP 7 (Normal) Range: 5-15 CO2 [...] 7-18 GLU 80 mg/dL (Normal) Range: 70-110 04-Yke-204211:15 TSH 3.05 {uIU/mL} (Normal) Range: 0.358-3.74 :22 B12 577 pg/mL (Normal) Range: 211-946 Comments: Performed at: [facility] Lab[address] [id number] Director: Patito Segovia MD, Phone: [phone] :[phone] CBCMD RBCM NORM C+C {NORMAL} (Normal) [...] 4.2-5.4 WBC 6.7 K/mm3 (Normal) Range: 4.4-11.0 14-Dec-20118:22 CMP GAP 8 (Normal) Range: 5-15 CO2 [...] deficiency has been defined by the [place] ofMedicine and an Endocrine Society practice guideline as alevel of serum 25-OH vitamin D less than 20 ng/mL (1,2).The Endocrine Society went on to further define vitamin Dinsufficiency as a level between 21 and 29 ng/mL (2).1. IOM ([place] of Medicine). 2010. Dietary reference intakes for calcium and D. [place]: The National Academies Press.2. Seng MF, Theresa NC, Kieran KOWALSKI, et al. Evaluation, treatment, and prevention of vitamin D deficiency: an Endocrine Society clinical practice guideline. JCEM. 2010; 96(7):1911-30. 96-Kae-337040:37 BREAST UNILATERAL Radiology Report See Note (Normal) [...] Category 3: Probably Benign Finding - Initial Fnogq-CofyizliDimnsu-og Suggested. Signed:Dashawn Rowe M.D.November 09, 2011 at 2:49:17 PM [id number] Signed GP/GP If you are the referring physician and would like to consult with theradiologist who provided this interpretation, please contact Herb blake M.D. at [phone]. If this radiologist is unavailable, youwill be directed to another radiologist to assist. If you are a patient with a question regarding this report, pleasecontactyour referri ng physician directly. Professional Interpretation Provided By: [employer], Phone , These documents contain legally protected [...] 11/09/11 1456 Sign by: Dashawn Rowe MD 23-Ljm-081025:47 BREAST UNILATERAL Radiology Report See Note (Normal) [...] Category 3: Probably Benign Finding - Initial Bwugc-DvoptdewUldooq-mv Suggested. To consult with a radiologist regarding this report, please call our [id number] line @ Dictated on 06/22/11 1428 by Jennifer Rowe MDranscribed on 06/22/11 1547 by ITS IMPORTSign by Dashawn Rowe MD on 06/22/11 1548 Sign by: ___ Dashawn Rowe MD 82-Pyn-982664:47 UNILAT LT DIAG DIGITAL & CAD Radiology [...] radiologist regarding this report, please call our [id number] line @ Dictated on 06/22/11 1357 by Soledad CARRANZA,Yariscribed on 1450 by ITS IMPORTSign by Dashawn Rowe MD on 06/22/11 1451 Sign by: Dashawn Rowe MD 6-Koj-918087:14 CERV SPINE,MIN 4 VIEWS Radiology Report See [...] radiologist regarding this report, please call our [id number] line @ Dictated on 04/13/11 1408 by CRANNY MD,Vira on 04/14/111627 by ITS IMPORTSign by Mook DUMONT MDNIFER on 04/14/119 Sign by: LISANDRA DUMONT MD :38 CBCD,SMEAR [...] or = 500 mg/dL :38 VIT D,25 70107 47.8 ng/mL (Normal) Range: 30.0-100.0 Comments: Vitamin D deficiency has been defined by the [place] ofMedicine and an Endocrine Society practice guideline as alevel of serum 25-OH vitamin D less than 20 ng/mL (1,2).The Endocrine Society went on to further define vitamin Dinsufficiency as a level between 21 and 29 ng/mL (2).1. IOM ([place] of Medicine). 2011. Dietary reference intakes for calcium and D. [place]: The National Academies Press.2. Seng MF, Theresa ROMERO, Kieran KOWALSIK, et al. Evaluation, treatment, and prevention of vitamin D deficiency: an Endocrine Society clinical practice guideline. JCEM. 2010; 96(2): 1911-30.Performed at: [facility] [place], [place] [id number] Director: Patito Segovia MD, Phone: [phone] 72-Gjn-57260:38 VITAMIN B12 781 pg/mL (Normal) Range: 254-1320 Comments: There is a low frequency possibility that high titers ofintrinsic blocking antibodies may not be completely inactivated during the reaction pretreatment stepof this testing method. If test results are i n conflictwith the clinical diagnosis, patient should be testedfor the presence of intrinsic factor blocking antibodies. 10-Kpd-683425:29 DEXA BONE DENSITY STUDY () Comments: appt 03/01/11 Radiology Report See Note [...] on 02/02/11842 Sign by: Dashawn Rowe MD 13-Qwb-874236:03 Thin prep Pap Comments: Source.............Cervical;EndocervicalNo. of containers..01 CYTYC Thin Prep VialPERFORMED BY: Lab[address] [id number] Information: [id number] ([id number]) Note: PAPSMR (Normal) Comments: The Pap smear [...] component) are present.V72.31 ; Routine gynecolog ical exambrennan Aguila Director Of Marketing And Promotions (ASCP) 96-Nuk-679914:01 BILAT SCRN DIGITAL & CAD Radiology Report [...] suspiciousa bnormality. Dictated on 11/10/10 1218 by Jennifer Rowe MDranscribed on 11/10/10 1452 by ITS IMPORTSign by Dashawn Rowe MD on 11/10/10 1453 Sign by: Dashawn Rowe MD 92-Vdg-698551:16 COMP METABOLIC Comments: appt 11/05/10 GAP 10 [...] 7-18 GLU 79 mg/dL (Normal) Range: 70-110 46-Rxo-555889:16 LIPID VLDL 24 mg/dL (Normal) Range: 5-40 [...] 200-240 mg/dL Borderline >240 mg/dL High Risk 21-Jmz-671039:16 TSH 0.99 {uIU/mL} (Normal) Range: 0.358-3.74 :16 VIT D,25 17298 45.6 ng/mL (Normal) Range: 32.0-100.0 Comments: Recent studies consider the lower limit of 32.0 ng/mL to zoraida threshold for optimal health.Everardo HEREDIA. J Nutr. 2004;135(2):317-22.Performed at: [facility] LabSh[place] [address] Director: Patito Segovia MD, Phone: [phone] 49-Ghb-437118:16 VITAMIN B12 582 pg/mL (Normal) Range: 254-1320 Comments: There is a low frequency possibility that high titers ofintrinsic blocking antibodies may not be completely inactivated during the reaction pretreatment stepof this testing method. If test results are i n conflictwith the clinical diagnosis, patient should be testedfor the presence of intrinsic factor blocking antibodies. 89-Sjr-434072:20 CBCD,SMEAR DIFF PLT EST SeeNote (Normal) Comments: [...] 4.2-5.4 WBC 5.4 K/mm3 (Normal) Range: 4.4-11.0 50-Wel-952168:20 COMP METABOLIC GAP 9 (Normal) Range: 5-15 [...] {uIU/mL} (Normal) Range: 0.358-3.74 :20 VIT D,25 21843 43.2 ng/mL (Normal) Range: 32.0-100.0 Comments: Recent studies consider the lower limit of 32.0 ng/mL to zoraida threshold for optimal health.Everardo HEREDIA. J Nutr. 2004;135(2):317-22.Performed at: [place] [address]Lab Director: Patito Segovia MD, Phone: [phone] 40-Cab-574486:20 VITAMIN B12 516 pg/mL (Normal) Range: 254-1320 Comments: There is a low frequency possibility that high titers ofintrinsic blocking antibodies may not be completely inactivated during the reaction pretreatment stepof this testing method. If test results are i n conflictwith the clinical diagnosis, patient should be testedfor the presence of intrinsic factor blocking antibodies. :44 VIT D,25 72507 38.6 ng/mL (Normal) Range: 32.0-100.0 Comments: Recent studies consider the lower limit of 32.0 ng/mL to zoraida threshold for optimal health.Everardo HEREDIA. J Nutr. 2004;135(2):317-22.Performed at: - [facility] [id number]Lab Director: Patito Segovia MD, Phone: [phone] :[phone] VITAMIN B12 398 pg/mL (Normal) Range: [...] intrinsic factor blocking antibodies. :24 VITD 1,25 81193 57.3 pg/mL (Normal) Range: 10.0-75.0 Comments: Performed at: - [facility] [id number] Director: Roderick Ramirez MD, Phone: [phone] 72-Rdx-117483:26 CBCD,SMEAR DIFF RED CELL MORPH SeeNote {NORMAL} [...] 4.2-5.4 WBC 7.1 K/mm3 (Normal) Range: 4.4-11.0 03-Igf-153922: VITAMIN B12 1203 pg/mL (Normal) Range: 254-1320 26 Comments: There is a low frequency possibility that high titers ofintrinsic blocking antibodies may not be completelyinactivated during the reaction pretreatment stepof this testing method. If test results are in conflictwith the clinical diagnosis, patient should be testedfor the presence of intrinsic factor blocking antibodies. 4-Ysg-221520:16 MRA HEAD WITHOUT CONTRAST Radiology Report See Note (Normal) Comments: Exam Number: [id number] CLINICAL:69 year old female with numbness in [...] There is a fetalconfiguration of the right DISPENSING LEAD. No definite P1 segment connectingthe artery to the basilar artery is identified. IMPRESSION:No demonstrated aneurysm. Anatomic variations of the [place]. 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 The rightinternal carotid arteries supplies the left [place] territory, and islarger than the left internal carotid. 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 Reported By: DOMENICA MCGARRY M.D. 03-Thn-010476:41 BRAIN W/WO CONTRAST Radiology See Note Comments: Exam Number: [id number] CLINICAL: MRI BRAIN WITHOUT AND WITH CONTRAST [...] mild degenerative remodeling of the mandibular condyles.ADDENDUM: [id number] MRI/BRWW CLINICAL: MRI BRAIN WITHOUT AND WITH [...] 1 0 1 3 : 3 3 97-Vdy-432403:33 SERUM CRE & GFR CREAT,SERUM 1.2 mg/dL (Abnormal) Range: 0.6-1.0 EST GFR 48 mL/min (Abnormal) EST GFR - AA 58 mL/min (Abnormal) :35 LIPID CHOL 188 mg/dL (Normal) Comments: <200 mg/dL Mfjjxoqtq262-847 mg/dL Borderline>240 mg/dL High Risk HDL 54 [...] Range: 0.358-3.74 5 (Normal) :3 VIT D,25 32358 29.3 ng/mL (Abnormal) Range: 32.0-100.0 5 Comments: Recent studies consider the lower limit of 32.0 ng/mL to zoraida threshold for optimal health.Everardo HEREDIA. J Nutr. 2004;135(2):317-22.Performed at: [place] [address] Director: Patito Segovia MD, Phone: [phone] :[phone] VITAMIN B12 158 pg/mL (Abnormal) Range: [...] Report See Note (Normal) Comments: Exam Number: [id number] CLINICAL:Right upper quadrant pain CT ABDOMEN WITH [...] parapelvic renal cysts. Reported By: PRADIP FRANCO 49-Bhk-061159:29 BMP BUN 16 mg/dL (Normal) Range: 7-18 [...] mg/dL (Normal) Range: 70-110 :37 VIT D,25 19753 26.3 ng/mL (Abnormal) Range: 32.0-100.0 Comments: Recent studies consider the lower limit of 32.0 ng/mL to zoraida threshold for optimal health.Everardo HEREDIA. J Nutr. 2004;135(2):317-22.Performed at: [address] [id number] Director: Ade Rubio MD 94-Suj-259380:36 GALLBLADDER (HP) Radiology Report See Note (Normal) Comments: Exam Number: [id number] LIMITED ABDOMINAL ULTRASOUND FOR GALLBLADDER HISTORYChest pain. [...] appearance is indeterminate [facility] the [facility] examin [facility]. Forfurther evaluation of this finding, CT is [...] kidneyis suggested. Reported By: DOMENICA GATES M.D. 3-Afp-174999:21 Lipase (42960) Comments: PATIENT NOT FASTINGPERFORMED BY: [facility] [address]sqe[address] [facility] [id number] Lipase, Serum 42 U/L (Normal) Range: 0-59 :21 Amylase (63102) Comments: PATIENT NOT FASTINGPERFORMED BY: [employer] [facility] Pfxmxm0092 [facility] [id number] Amylase, Serum 54 U/L (Normal) Range: 31-124 1-Oxo-694866:21 CBC WITH MANUAL DIFF Comments: PATIENT NOT FASTINGPERFORMED BY: [facility] Ybeqaq8032 [address] [facility] [id number] Information: [id number] (65051) Baso (Absolute) 0.1 {x10E3/uL} (Normal) Range: 0.0-0.2 [...] 3.80-5.10 WBC 5.9 {x10E3/uL} (Normal) Range: 4.0-10.5 2-Fjt-314053:21 METABOLIC PANEL, COMPREHENSIVE Comments: PATIENT NOT FASTINGPERFORMED BY: [facility]CoUniversity HospitalZpzecx4940 [facility] [id number] (36692) ALT (SGPT) 15 [iU]/L (Normal) Range: 0-40 [...] Comments: DR DAVIS ORDERED CMP,CBCMD,CAROL,RF,TSH,CRP,SED,CCP,LIPIDDR VELLANKIORDEREDCMP,CBCD,CRP,SED,VITD,CCP,HEPBSAB,HEPBSAG,HEPC,CAROL,RF,HEPBCORE IGM,[place] [id number] CAROL-DIRECT SeeNote (Normal) Comments: Result: Negative :48 ANTI-CCP 535666 4 {units} (Normal) Comments: DR DAVIS ORDERED [...] 47-70 WBC 5.8 K/mm3 (Normal) Range: 4.4-11.0 72-Ixy-94838:48 COMP Comments: DR DAVIS ORDERED CMP,CBCMD,CAROL,RF,TSH,CRP,SED,CCP,LIPIDDR NIKKIORDEREDCMP,CBCD,CRP,SED,VITD,CCP,HEPBSAB,HEPBSAG,HEPC,CAROL,RF,HEPBCORE IGM,UA METABOLIC A/G 1.1 {RATIO} (Normal) Range: [...] WBC 0 SEEN {/hpf} (Normal) Range: 0-5 97-Upf-30112:48 ESR Comments: DR DAVIS ORDERED CMP,CBCMD,CAROL,RF,TSH,CRP,SED,CCP,LIPIDDR VELLANKIORDEREDCMP,CBCD,CRP,SED,VITD,CCP,HEPBSAB,HEPBSAG,HEPC,CAROL,RF,HEPBCORE IGM,UA SED RATE 15 mm/h (Normal) Range: 0-30 :48 HB CORE [id number] SeeNote (Normal) Comments: DR DAVIS ORDERED CMP,CBCMD,CAROL,RF,TSH,CRP,SED,CCP,LIPIDDR VELLANKIORDEREDCMP,CBCD,CRP,SED,VITD,CCP,HEPBSAB,HEPBSAG,HEPC,CAROL,RF,HEPBCORE IGM,UA Comments: Result: Negative Performed At: [facility] Cdyotg[address] [place], [place] [id number] At: [facility] [address] [phone] :48 HBsAg Comments: DR DAVIS ORDERED CMP,CBCMD,CAROL,RF,TSH,CRP,SED,CCP,LIPIDDR [...] of antibody present. :48 HEP C AB 200850 0.1 (Normal) Comments: DR DAVIS ORDERED CMP,CBCMD,CAROL,RF,TSH,CRP,SED,CCP,LIPIDDR [...] DAVIS ORDERED CMP,CBCMD,CAROL,RF,TSH,CRP,SED,CCP,LIPIDDR VELLANKIORDEREDCMP,CBCD,CRP,SED,VITD,CCP,HEPBSAB,HEPBSAG,HEPC,CAROL,RF,HEPBCORE IGM,UA Range: 0.358-3.74 45-Gww-75693:48 VIT D,25 19001 18.0 ng/mL (Abnormal) Comments: DR DAVIS ORDERED CMP,CBCMD,CAROL,RF,TSH,CRP,SED,CCP,LIPIDDR VELLANKIORDEREDCMP,CBCD,CRP,SED,VITD,CCP,HEPBSAB,HEPBSAG,HEPC,CAROL,RF,HEPBCORE IGM,UA Range: 32.0-100.0 Comments: Recent studies consider the lower limit of 32.0 ng/mL to zoraida threshold for optimal health.Mcgee BW. J Nutr. 2004;135(2):317-22. 0-Cpe-942332:10 BILAT SCRN DIGITAL & CAD Radiology Report See Note (Normal) Comments: Exam Number: [id number] MAMMOGRAM, BILATERAL SCREENING DIGITAL AND CAD HISTORYRoutine [...] (MQSA). The mammograms werealso examined with c ChipSensorsuter-aided detection software ([employer], Before the Call, [employer].). Reported By: DOMENICA GATES M.D. 0-Tav-409605:09 SPINE,LUMBAR (ROUTINE) Radiology Report See Note (Normal) Comments: Exam Number: [id number] CLINICAL:68-year-old female with low back pain for [...] Report See Note (Normal) Comments: Exam Number: [id number] CLINICAL DATALow back pain, flank pain, right [...] disc disea se involving multiple levels from T6afwoaom S1. There is degenerative hypertrophic change of multiplefacet joints from L2 through S1. There are no fractures orsubluxations. IMPRESSIONModerate rotatory scoliosis of middle lumbar spine with convexityto the left side. Degenerative disc disease at multiple levels fromL2 through S1. Degenerative hypertrophic changes of multiple facetjoints from L2 through S1. Reported By: HEATHER JACKSON 7-Wqw-074856:27 DORSAL SPINE,3 VIEWS Radiology Report See Note (Normal) Comments: Exam Number: [id number] DORSAL SPINE Three images of the dorsal [...] middle dorsal spine. Reported By: HEATHER JACKSON 2-Vrp-135644:22 Urine Culture,Comprehensive Comments: Clinical Information: SRC:UR PERFORMED BY: [facility] [id number] Result 1 NG36 (Normal) Comments: No growth in 36 - 48 hours. Urine Culture,Comprehensive Final report (Normal) 1-Kvk-461570:18 PELVIS WITHOUT IV CONTRAST Radiology Report See Note (Normal) Comments: Exam Number: [id number] CT SCANS OF ABDOMEN AND PELVIS HISTORYThe [...] the spine. Reported By: DOMENICA GATES M.D. 8-Mem-443384:17 ABDOMEN WITHOUT IV CONTRAST Radiology Report See Note (Normal) Comments: Exam Number: [id number] CT SCANS OF ABDOMEN AND PELVIS HISTORYThe [...] the spine. Reported By: DOMENICA GATES M.D. 4-Eyf-951849:1 C-REACTIVE PROT 4.05 mg/L (Abnormal) Range: 0.0-3.0 0 Comments: C-Reactive Protein (CRP) provides useful information for thediagnosis, therapy and monitoring of inflammatory processesand associated diseases. For the evaluation of Relative Riskfor Cardiovascular Dise ase, a High Sensitivity CRP (HSCRP)should be ordered. 6-Ver-804520:10 CBCD,SMEAR DIFF ATYPICAL LYMPH 1+ % (Normal) [...] 6.4-8.2 GLU 84 mg/dL (Normal) Range: 70-110 5-Ucl-075148:10 ESR SED RATE 14 mm/h (Normal) Range: 0-30 8-Ykl-172498:40 Urinalysis, Office (42503) UA - BILIRUBIN Negative (Normal) UA - BLOOD Non Hemolyzed Trace (Normal) UA - GLUCOSE Negative (Normal) UA - KETONES Negative mg/dL (Normal) UA - LEUKOCYTE ESTERASE Negative (Normal) Comments: aw UA - NITRITE Negative (Normal) UA - PH 6.0 (Normal) UA - PROTEIN Negative mg/dL (Normal) UA - SPECIFIC GRAVITY 1.010 (Normal) URINE UROBILINGN TUNDE TIMED Normal mg/dL (Normal) 4-Cpf-813093:28 URINE CESAR CULTURE-TUNDE COL Comments: PATIENT NOT FASTINGClinical Information: SRC:UR ADD [id number] PERFORMED BY: LISB[facility] Pen[address] [place] [place] [id number] COUNT (24996) Result 1 MUG (Normal) Comments: Mixed urogenital flora10,000-25,000 colony forming units per mL Urine Final report (Normal) Culture,Comprehensive 4-Jdw-520603:09 Urinalysis, Office (21629) UA - BILIRUBIN Negative (Normal) UA - BLOOD Non Hemolyzed Trace (Normal) UA - GLUCOSE Negative (Normal) UA - KETONES Small mg/dL (Normal) UA - LEUKOCYTE ESTERASE Trace (Normal) UA - NITRITE Negative (Normal) UA - PH 6.0 (Normal) UA - PROTEIN Negative mg/dL (Normal) UA - SPECIFIC GRAVITY 1.020 (Normal) URINE UROBILINGN TUNDE TIMED 2 mg/dL (Normal) :52 CBCD,SMEAR DIFF CELLS COUNTED 100 (Normal) EOS [...] mg/dL VLDL 16 mg/dL (Normal) Range: 5-40 0-Rgd-153401:59 LQD PAP [id number] Comments: CYTOLOGY INFORMATION:- CLINICAL INFORMATION: POSTMENOPAUSAL- DATE LMP/MENOPAUSE: MENOPAUSE- COLLECTION VIAL: Thin Prep Vial- FOOTBALL PAD REPAIRER SOURCE: CERVICAL/ENDOCERVICAL- COLLECTION TECHNIQUE: BRUSH/SPATULA ADEQ Comment (Normal) Comments: Satisfactory for evaluation. Endocervical and/or squamous metaplasticcells (endocervical component) are present. COMM . (Normal) DIAGN Comment (Normal) Comments: NEGATIVE FOR INTRAEPITHELIAL LESION AND MALIGNANCY. HPV RFLX Comment (Normal) Comments: The HPV DNA reflex criteria were not met with this specimenresult therefore, no HPV testing was performed. .Performed At: [address] [id number] [facility] Comment (Normal) Comments: The Pap smear is a screening test designed to aid in thedetection of premalignant and malignant conditions of theuterine cervix. It is not a diagnostic procedure andshould not be used as the sole means of detecting cervicalcancer. Both false-positive and false-negative reports dooccur. . PERFORM Comment (Normal) Comments: Diandra Bee, Director Of Marketing And Promotions (ASC) 45-Obw-477480:36 DEXA BONE DENSITY STUDY () Radiology Report See Note (Normal) Comments: Exam Number: [id number] BONE DENSITOMETRY TECHNIQUE Bone densitometry of the [...] density is measured at l0.3%greater than in 1999 and 7.2% greater than in 2005. Digital lateralview for evaluation of vertebral deformity only demonstrates noobvious compression fractures. The T-value of the left femoral neckis - 0.8 which is normal. The T-value of the total left hip is -0.4which is no 17.2% less than in l999 and 7.7% less than in 2005. I MPRESSIONBone densitometry of the lumbar spine and left hip is within normallimits. Reported By: DOMENICA GATES M.D. 56-Nag-36170:55 COMP METABOLIC A/G 1.3 {RATIO} (Normal) Range: [...] T PROT 7.1 g/dL (Normal) Range: 6.4-8.2 17-Vmp-47728:55 TSH 2.13 {uIU/mL} (Normal) Range: 0.34-4.82 42-Ldz-163226:12 C-REACTIVE PROT 5.51 mg/L (Normal) Range: 0.0-6.0 Comments: Test performed using the Dimension C-Reactive ProteinExtended Range assay method. This assay meets the AHA/CDC 2003 recommendations fordetermining patients at high risk for cardiovasculardisease. Reference: High risk CRP >3.0 mg/L 45-Qji-873086:12 CBCD,SMEAR DIFF BAND 1 % (Normal) Range: [...] T PROT 6.1 g/dL (Abnormal) Range: 6.4-8.2 :12 FUNEZ A AB 785240 FUNEZ A TYPE 10 <1:8 (Normal) FUNEZ [...] and its performancecharacteristics have been determined by [employer]. Performance characteristics refer tothe analytical performance of the test. FUNEZ A TYPE 2 <1:8 (Normal) FUNEZ A TYPE 4 <1:8 (Normal) FUNEZ A TYPE 7 <1:8 (Normal) FUNEZ A TYPE 9 <1:8 (Normal) 55-Poh-157556:12 ESR SED RATE 14 mm/h (Normal) Range: 0-30 77-Rvb-137990:12 RA LATEX 6502 7.1 {IU/mL} (Normal) Range: 0.0-13.9 Comments: Performed At: [employer] [place], [place] [id number] At: [facility] [address] [place], [place] [id number] 55-Wvw-730129:12 TSH 0.16 {uIU/mL} (Abnormal) Range: 0.34-4.82 01-Yar-176687:21 PELVIS WITH CONTRAST Radiology Report See Note (Normal) Comments: Exam Number: [id number] CT ABDOMEN AND PELVIS WITH CONTRAST. CLINICAL [...] pericardial effusion. Reported By: TODD KENNEDY M.D. 67-Ipf-687819:11 ABDOMEN WITH CONTRAST Radiology Report See Note (Normal) Comments: Exam Number: [id number] CT ABDOMEN AND PELVIS WITH CONTRAST. CLINICAL [...] pericardial effusion. Reported By: TODD KENNEDY M.D. 91-Agv-823639:38 MARCUS 45 U/L (Normal) Range: 25-115 67-Fxx-002314:38 CBCD,SMEAR DIFF BAND 1 % (Normal) Range: [...] 47-70 WBC 5.9 K/mm3 (Normal) Range: 4.4-11.0 43-Hhh-288801:38 LIPASE 190 U/L (Normal) Range: 114-286 95-Swa-553310:45 BILAT SCRN DIGITAL & CAD Radiology Report See Note (Normal) Comments: Exam Number: [id number] MAMMOGRAM, BILATERAL SCREENING DIGITAL AND CAD HISTORYRoutine [...] werealso exam ined with computer-aided detection software (ImageActivehours, Before [employer] Call[employer].). Reported By: DOMENICA GATES M.D. :33 CHEST W/WO CONTRAST Radiology Report See Note (Normal) Comments: Exam Number: [id number] CT SCAN OF CHEST HISTORYLung nodule. Consecutive [...] T PROT 6.6 g/dL (Normal) Range: 6.4-8.2 91-Bie-35666:07 COMPLETE UA BACTERIA RARE {/hpf} (Normal) BILIRUBIN [...] itching : [facility] Indication: Vaginal itching Low Back [...] Indication: Chest pain Chest pain : Reviewed [employer] Letter Indication: Chest pain Osteoarthritis, unspecified osteoarthritis [...] Diet and Exercise Indication: Hypercholesterolemia Planned Observations ANGTENSIN 1-CONVRT ENZYM (14366)Indication: Arthralgia On: :34 Request CCP ANTIBODY (10323)Indication: Arthralgia On: :34 Request CAROL (ANTINUCLEAR ANTIBODY) (60745)Indication: Arthralgia On: 34 Request RHEUMATOID FACTOR-QUANT (25012)Indication: Arthralgia On: 34 Request SED RATE ERYTHROCYTE (78847)Indication: Arthralgia On: 34 Request C-REACTIVE PROTEIN (77248)Indication: Arthralgia On: :34 Request CBC, PLATELETS & AUT DIFF (66284)Indication: Other vitamin B12 deficiency anemia On: :29 Request VITAMIN B-12 (CYANOCOBALAMIN) (44902)Indication: Other vitamin B12 deficiency anemia On: :29 Request CBC W/AUTO DIFF WBC (83394)Indication: Prolonged QT interval On: 0-Rml-578195:18 Request METABOLIC PANEL, COMPREHENSIVE (51714)Indication: Prolonged QT interval On: 5-Gig-696808:18 Request VITAMIN B-12 (CYANOCOBALAMIN) (87768)Indication: DEFICIENCY, B-COMPLEX NEC On: 0-Heg-183330:18 Request TSH (04194)Indication: Acquired hypothyroidism On: :17 Request LIPOPROTEIN, BLD, BY NMR (94301)Indication: Hypercholesterolemia On: :17 Request VITAMIN B-12 (CYANOCOBALAMIN) ([id number])Indication: DEFICIENCY, B-COMPLEX NEC On: :18 Request LIPID PANEL (26862)Indication: Hypercholesterolemia On: :18 Request CBC W/AUTO DIFF WBC (24985)Indication: Right flank pain On: :17 Request METABOLIC PANEL, COMPREHENSIVE (47518)Indication: Right flank pain On: :17 Request Vitamin D Hydroxy (78753)Indication: Vitamin D deficiency, unspecified On: :17 Request Urinalysis, Office (61364)Indication: Urinary frequency On: 83-Tol-084660:22 Request VITAMIN B-12 (CYANOCOBALAMIN) (70794)Indication: Other vitamin B12 deficiency anemia On: :28 Request Comments: Lot:[id number]:04/29Dose:1mlRoute:IMSite:r arm Given By:TAVON signed Vitamin D Hydroxy (42858)Indication: Vitamin D deficiency, unspecified On: :42 Request LIPID PANEL (20033)Indication: Hypercholesterolemia On: :42 Request METABOLIC PANEL, COMPREHENSIVE (20071)Indication: Essential hypertension On: :36 Request TSH ([id number])Indication: Acquired hypothyroidism On: :36 Request CBC with auto diff ([id number])Indication: Abdominal pain, acute, right lower quadrant On: 6-Kwi-883048:06 Request METABOLIC PANEL, COMPREHENSIVE (21665)Indication: Abdominal pain, acute, right lower quadrant On: 1-Mdf-536225:06 Request Urinalysis, Office (19539)Indication: Low Back Pain (Renamed from LBP (low back pain)) On: 36-Txn-402292:09 Request Vitamin D Hydroxy (35518)Indication: Vitamin D deficiency, unspecified On: 44-Sas-438651:32 Request METABOLIC PANEL, COMPREHENSIVE (69302)Indication: Essential hypertension On: 07-Qjt-115374:31 Request LIPID PANEL (47943)Indication: Hypercholesterolemia On: :31 Request TSH ([id number])Indication: Acquired hypothyroidism On: 93-Mlm-383102:31 Request LIPID PANEL (75930)Indication: Hypercholesterolemia On: 0-Rqi-795854:45 Request TSH ([id number])Indication: Acquired hypothyroidism On: :44 Request METABOLIC PANEL, COMPREHENSIVE (90105)Indication: Essential hypertension On: :44 Request CBC, PLATELETS & AUT DIFF ([id number])Indication: DEFICIENCY, B-COMPLEX NEC On: :43 Request VITAMIN B-12 (CYANOCOBALAMIN) (37859)Indication: DEFICIENCY, B-COMPLEX NEC On: 2-Don-459066:43 Request Vitamin D Hydroxy (45198)Indication: Vitamin D deficiency, unspecified On: :43 Request IRON ([id number])Indication: Anemia On: 8-Ibo-811659:42 Request Vitamin D Hydroxy (71194)Indication: Vitamin D deficiency, unspecified On: 8-Ipt-030158:36 Request VITAMIN B-12 (CYANOCOBALAMIN) (42595)Indication: DEFICIENCY, B-COMPLEX NEC On: 4-Afp-578711:35 Request CBC WITH MANUAL DIFF ([id number])Indication: DEFICIENCY, B-COMPLEX NEC On: 3-Van-950185:35 Request METABOLIC PANEL, COMPREHENSIVE (20507)Indication: Essential hypertension On: 1-Zic-658373:35 Request T3, FREE (TRIDOTHYRONINE) (94230)Indication: Acquired hypothyroidism On: 6-Xgd-265466:35 Request T4, FREE (03992)Indication: Acquired hypothyroidism On: 0-Tpw-894704:35 Request TSH ([id number])Indication: Acquired hypothyroidism On: 9-Qbd-570611:34 Request TSH ([id number])Indication: Acquired hypothyroidism On: 72-Bga-819790:23 Request Comments: recheck in 6 weeks Metabolic Panel, Basic (36524)Indication: Essential hypertension On: 50-Goh-907897:16 Request TSH ([id number])Indication: Acquired hypothyroidism On: 70-Kio-538386:22 Request C-REACTIVE PROTEIN (21343)Indication: right lower quadrant pain On: 09-Oxe-030840:51 Request SED RATE ERYTHROCYTE (06624)Indication: right lower quadrant pain On: :51 Request Magnesium (18658)Indication: Leg cramps On: :43 Request CBC WITH MANUAL DIFF ([id number])Indication: Edema leg On: :42 Request LIPID PANEL (82287)Indication: Hypercholesterolemia On: :41 Request METABOLIC PANEL, COMPREHENSIVE (38705)Indication: Essential hypertension On: :41 Request VITAMIN B-12 (CYANOCOBALAMIN) ([id number])Indication: Other vitamin B12 deficiency anemia On: :41 Request Vitamin D Hydroxy (86321)Indication: Vitamin D deficiency, unspecified On: :41 Request Metabolic Panel, Basic (95504)Indication: Acute renal failure, unspecified acute renal failure type On: :31 Request TSH ([id number])Indication: Acquired hypothyroidism On: :30 Request LIPID PANEL (95555)Indication: Hypercholesterolemia On: :39 Request Vitamin D Hydroxy (36544)Indication: Vitamin D deficiency, unspecified On: :39 Request VITAMIN B-12 (CYANOCOBALAMIN) (09208)Indication: Other vitamin B12 deficiency anemia On: :39 Request CBC WITH MANUAL DIFF ([id number])Indication: Other vitamin B12 deficiency anemia On: :39 Request METABOLIC PANEL, COMPREHENSIVE (55780)Indication: Essential hypertension On: :39 Request Vitamin D Hydroxy ([id number])Indication: Vitamin D deficiency, unspecified On: :37 Request LIPID PANEL (40584)Indication: Hypercholesterolemia On: :37 Request TSH (77592)Indication: Acquired hypothyroidism On: :37 Request CBC WITH MANUAL DIFF ([id number])Indication: Essential hypertension On: :39 Request METABOLIC PANEL, COMPREHENSIVE (19162)Indication: Essential hypertension On: :39 Request VITAMIN B-12 (CYANOCOBALAMIN) (67284)Indication: b12 deficiency On: :39 Request LIPID PANEL (22037)Indication: Hypercholesterolemia On: :39 Request Vitamin D Hydroxy (20590)Indication: Vitamin D deficiency, unspecified On: :32 Request VITAMIN B-12 (CYANOCOBALAMIN) (38439)Indication: b12 deficiency On: :32 Request Vitamin D Hydroxy (50853)Indication: Vitamin D deficiency, unspecified On: :32 Request METABOLIC PANEL, COMPREHENSIVE (51939)Indication: Essential hypertension On: :32 Request LIPID PANEL (25490)Indication: Hypercholesterolemia On: :32 Request TSH ([id number])Indication: Acquired hypothyroidism On: :32 Request CBC WITH MANUAL DIFF (31952)Indication: Essential hypertension On: :30 Request METABOLIC PANEL, COMPREHENSIVE (17179)Indication: Essential hypertension On: :29 Request VITAMIN B-12 (CYANOCOBALAMIN) (67789)Indication: DEFICIENCY, B-COMPLEX NEC On: :29 Request Vitamin D Hydroxy (81554)Indication: Vitamin D deficiency, unspecified On: :29 Request TSH ([id number])Indication: Acquired hypothyroidism On: :29 Request LIPID PANEL ([id number])Indication: Hypercholesterolemia On: :29 Request Vitamin B-12 (cyanocobalamin) (24468)Indication: b12 deficiency On: 85-Ggp-226122:01 Request CALCIFIDIOL (55329) VIT D 25Indication: Vitamin D deficiency, unspecified On: 55-Zxi-157477:00 Request TSH ([id number])Indication: Acquired hypothyroidism On: :34 Request LIPID PANEL ([id number])Indication: Hypercholesterolemia On: :34 Request Metabolic Panel, Basic (12421)Indication: Essential hypertension On: 99-Vjl-402063:26 Request VITAMIN B-12 (CYANOCOBALAMIN) (32821)Indication: DEFICIENCY, B-COMPLEX NEC On: 33-Tpz-566773:19 Request Vitamin D Hydroxy (74752)Indication: Vitamin D deficiency, unspecified On: 16-Xpt-193931:19 Request VITAMIN D, 1, 25-DIHYDROXY (57694)Indication: Vitamin D deficiency, unspecified On: 2-Frv-437427:19 Request Comments: Vit D [place] Vitamin B-12 (cyanocobalamin) ([id number])Indication: b12 deficiency On: 1-Vbi-805701:17 Request CBC WITH MANUAL DIFF ([id number])Indication: b12 deficiency On: 65-Bym-190376:17 Request VITAMIN B-12 (CYANOCOBALAMIN) ([id number])Indication: b12 deficiency On: 01-Pdp-337057:14 Request VITAMIN B-12 (CYANOCOBALAMIN) (33489)Indication: Vitiligo On: 10-Xbv-765797:37 Request LIPID PANEL ([id number])Indication: Hypercholesterolemia On: 35-Xnw-276959:33 Request TSH ([id number])Indication: Acquired hypothyroidism On: 43-Szr-597732:32 Request Vitamin D Hydroxy ([id number])Indication: Vitamin D deficiency, unspecified On: 17-Yxs-206454:31 Request METABOLIC PANEL, COMPREHENSIVE ([id number])Indication: Essential hypertension On: 71-Nts-687730:42 Request Vitamin D Hydroxy (16191)Indication: Vitamin D deficiency, unspecified On: 50-Yyl-274849:42 Request CAROL (ANTINUCLEAR ANTIBODY) (39932)Indication: Pain in unspecified joint On: :27 Request C-REACTIVE PROTEIN ([id number])Indication: Pain in unspecified joint On: :27 Request CBC WITH MANUAL DIFF ([id number])Indication: Pain in unspecified joint On: :27 Request CCP ANTIBODY ([id number])Indication: Pain in unspecified joint On: :27 Request METABOLIC PANEL, COMPREHENSIVE (77558)Indication: Pain in unspecified joint On: :27 Request RHEUMATOID FACTOR-QUANT (28962)Indication: Pain in unspecified joint On: : Request SED RATE ERYTHROCYTE (45652)Indication: Pain in unspecified joint On: :27 Request TSH ([id number])Indication: Pain in unspecified joint On: :27 Request SED RATE ERYTHROCYTE (37522)Indication: flank pain On: :35 Request C-REACTIVE PROTEIN (73793)Indication: flank pain On: :35 Request METABOLIC PANEL, COMPREHENSIVE ([id number])Indication: flank pain On: :35 Request CBC WITH MANUAL DIFF ([id number])Indication: flank pain On: :35 Request URINE CESAR CULTURE (TUNDE COL COUNT) ([id number])Indication: flank pain On: :35 Request Thin prep Pap (75512)Indication: Well woman exam with routine gynecological exam On: 7-Qdl-375377:09 Request CBC WITH MANUAL DIFF ([id number])Indication: Essential hypertension On: 33-Ewo-123938:02 Request METABOLIC PANEL, COMPREHENSIVE (73548)Indication: Essential hypertension On: 32-Zup-114349:02 Request LIPID PANEL (76001)Indication: Hypercholesterolemia On: 79-Zxy-755811:02 Request METABOLIC PANEL, COMPREHENSIVE (01210)Indication: Essential hypertension On: 74-Szq-507108:18 Request TSH ([id number])Indication: Acquired hypothyroidism On: 71-Cul-609158:18 Request SED RATE ERYTHROCYTE (00918)Indication: Abdominal pain, acute, left upper quadrant On: 84-Ftm-972896:09 Request C-REACTIVE PROTEIN ([id number])Indication: Abdominal pain, acute, left upper quadrant On: 84-Oya-162626:09 Request CBC WITH MANUAL DIFF ([id number])Indication: edema On: 94-Zhh-232584:09 Request METABOLIC PANEL, COMPREHENSIVE (22203)Indication: edema On: 13-Tib-878775:09 Request TSH ([id number])Indication: Acquired hypothyroidism On: 17-Njc-905143:03 Request CBC WITH MANUAL DIFF ([id number])Indication: Abdominal pain, acute, left upper quadrant On: 21-Fhk-273117:22 Request Lipase ([id number])Indication: Abdominal pain, acute, left upper quadrant On: 41-Ewb-012946:22 Request Amylase (23032)Indication: Abdominal pain, acute, left upper quadrant On: 11-Kvu-980444:21 Request Thin prep Pap (60706)Indication: Well woman exam with routine gynecological exam On: 21-Uds-164391:43 Request HEPATIC FUNCTION PANEL (40922)Indication: Hypercholesterolemia On: 04-Yhd-376345:52 Request LIPID PANEL (67132)Indication: Hypercholesterolemia On: 58-Ubf-052793:52 Request CBC, PLATELETS & AUTO DIFF ([id number])Indication: Leukopenia On: 39-Pwc-106347:34 Request Planned Encounters Medical; DARRIAN 6 Month Fu - On: 03-Jul-2018 13:00 [facility] Fast DO, Kristine A Fast DO, Kristine A Planned Procedures DEXA SCAN AXIAL SKELETON (15284)By: On: 02-Jan-2018 Intent Fast DO, Kristine A Fast DO, Kristine A Comments: mar - RenalBy: Fast DO, On: 02-Jan-2018 Intent Kristine A Fast DO, Kristine A Flu Vaccine (Quadrivalent) 25284Ap: On: 02-Jan-2018 Intent Fast DO, Kristine A Fast DO, Kristine A Comments: Lot #[id number]-3/30/2019Site-L dltd, IMDose prefilled syringegiven by: Melly reviewed and ABN signed ELECTROCARDIOGRAM, COMPLETE (ECG) On: 28-Aug-2017 Intent (37088)By: Fast DO, Kristine A Fast Comments: ekg showed normal sinus rhythym, normal axis, no acute st/t wave changes DO, Kristine A SCREENING DIGITAL TOMOSYNTHESIS OF On: 28-Aug-2017 Intent BREAST (86066)By: Fast DO, Kristine A Fast DO, Kristine A B 12 Injection, 1000 mcg (J3420)By: On: 15-Mar-2017 Intent Visit, Nurse Comments: 8490484.02/[id number]/mlMlalanna, SOLAR DESIGN ENGINEER B 12 Injection, 1000 mcg (J3420)By: On: 22-Feb-2017 Intent Fast DO, Kristine A Fast DO, Kristine A Comments: lot: [id number]: 05/01site/route: L del/IMamt: 1mLVIS signed when applicableRAYMUNDO Huerta Flu Vaccine (Quadrivalent) [id number]: On: 17-Jan-2017 Intent Fast DO, Kristine A [...] (J3420)By: On: 12-Dec-2016 Intent Visit, Nurse Comments: 68851/2018R arm, IM1ml, 1000mcgML, SOLAR DESIGN ENGINEER B 12 Injection, 1000 mcg (J3420)By: On: [...] Kristine A Fast DO, Kristine A Comments: B12lot:3670632.1exp:ite:lt deltroute:Imdose:1mlD.AYAD Jerez B 12 Injection, 1000 mcg [...] armGiven By:TAVON signed DEXA SCAN AXIAL SKELETON (56443)By: On: 04-Apr-2016 Intent Fast DO, Kristine A Fast DO, Kristine A MRI LUMBAR SPINE W/O CONTRAST On: 04-Apr-2016 Intent (51556)By: Fast DO, Kristine A Fast DO, Kristine [...] A ELECTROCARDIOGRAM, COMPLETE (ECG) On: 11-Dec-2015 Intent (63921)By: Fast DO, Kristine A Fast Comments: ekg showed normal sinus rhythym, normal axis, no acute st/t wave changes DO, Kristine A B 12 Injection, 1000 mcg (J3420)By: On: 11-Dec-2015 Intent Hunter Jerez Comments: B12lot:6185exp:18site:lt deltroute:IMdose:1mlD.AYAD Jerez B 12 Injection, 1000 mcg (J3420)By: On: 05-Nov-2015 Intent Hunter Jerez Comments: B12lot:6155exp:418site:lt deltroute:ImDose:1mlD.AYAD Jerez B 12 Injection, 1000 mcg [...] MAMMOGRAM, SCREENING, BOTH BREAST On: 21-Apr-2015 Intent (37825)By: Fast DO, Kristine A Fast DO, Kristine A B 12 Injection, 1000 mcg (J3420)By: On: 21-Apr-2015 Intent Fast DO, Kristine A Fast DO, Kristine A Comments: Lot:[id number]:11/27Dose:1mlRoute:IMSite:r arm Given By:TAVON signed B 12 Injection, 1000 mcg (J3420)By: On: 16-Mar-2015 Intent Fast DO, Kristine A Fast DO, Kristine A Comments: lot: [id number]: 06/27site/route: L del/IMamt: 1mLVIS signed when applicableRAYMUNDO Pichardo B 12 Injection, 1000 mcg (J3420)By: On: 09-Feb-2015 Intent Fast DO, Kristine A Fast DO, Kristine A Comments: B12lot:[id number]:06/27site:lt deltoidroute:IMdose:1mlDEMICK, SMA B 12 Injection, 1000 mcg (J3420)By: On: 15-Jan-2015 Intent Hunter Jerez Comments: B 12Lot:[id number]:3*17site:lt deltoidroute:IMdose:.5mlDEMICK, SMA B 12 Injection, 1000 mcg (J3420)By: On: 10-Dec-2014 Intent Fast DO, Kristine A Fast DO, Kristine A Comments: lot [id number] - see ANOOP Mcallister CT - Abdomen & Pelvis (IV Contrast On: 16-Sep-2014 Intent Needed)By: Fast DO, Kristine A Fast DO, Kristine A B 12 Injection, 1000 mcg (J3420)By: On: 16-Sep-2014 Intent Fast DO, Kristine A Fast DO, Kristine A Comments: Lot:[id number]:11.16Route:IMSite:R deltoidDose: 1 mLgiven by: Carlita Ariza CMA [...] 1,000 mcgSite: l dltdLocation; IMby: Prevnar 13 (80949)By: Fast DO, On: 24-Mar-2014 Intent Kristine A Fast DO, Kristine A Comments: lot: [id number]: 3/16site/route: L del/IMamt: 0.5mLVIS signed when applicableRAYMUNDO Huerta Ultrasound - PelvisBy: Fast DO, On: 24-Mar-2014 Intent Kristine A Fast DO, Kristine A B 12 Injection, 1000 mcg (J3420)By: On: 24-Mar-2014 Intent Fast DO, Kristine A Fast DO, Kristine A Comments: lot: [id number]: 4/16site/route: R del/IMamt:1mlVIS signed when applicableChelsea, SENIOR PHP SOFTWARE DEVELOPER B 12 Injection, 1000 mcg (J3420)By: On: 24-Feb-2014 Intent Silvia Burton LPN Comments: lot: [id number]: 4.16Dose: 1,000 mcgSite: l dltdLocation; IMby: B 12 Injection, 1000 mcg (J3420)By: On: 22-Jan-2014 Intent Fast DO, Kristine A Fast DO, Kristine A Comments: lot [id number] 08/2015location L armroute imgiven by - msmith VIS and/or ABN signed B 12 Injection, 1000 mcg (J3420)By: On: 30-Dec-2013 Intent Fast DO, Kristine A Fast DO, Kristine A Comments: lot [id number] 05/2015location L armroute imgiven by - msmithVIS [...] Fast Comments: today DO, Kristine A EKG (26539)By: Fast DO, Kristine A On: 05-Nov-2013 Intent Fast DO, Kristine A Comments: ekg showed normal sinus rhythym, normal axis, no acute st/t wave changes B 12 Injection, 1000 mcg (J3420)By: On: 05-Nov-2013 Intent Fast DO, Kristine A Fast DO, Kristine A Comments: Lot:[id number]:11/24Dose:1mlRoute:IMSite:l armGiven By:TAVON signed PHYSICAL THERAPY EVALUATION On: 18-Oct-2013 Intent (57271)By: Aquiles Potts CNP SPECIMEN HANDLING/TRANSPORT On: 18-Oct-2013 Intent (85465)By: Aquiles Potts CNP B 12 Injection, 1000 mcg (J3420)By: On: 11-Oct-2013 Intent Aquiles Potts CNP Comments: Lot:[id number]:11/2013Dose:1mlRoute:IMSite:[place] By:TAVON signed B 12 Injection, 1000 mcg (J3420)By: On: 18-Sep-2013 Intent Fast DO, Kristine A Fast DO, Kristine A B 12 Injection, 1000 mcg (J3420)By: On: 07-Aug-2013 Intent Fast DO, Kristine A Fast DO, Kristine A Comments: lot: [id number]: ite/route: L del/IMamt: 1mLVIS signed when applicableChelsea, SENIOR PHP SOFTWARE DEVELOPER MAMMOGRAM, SCREENING, BOTH BREASTS On: 24-Jun-2013 Intent (26557)By: Fast DO, Kristine A Fast DO, Kristine A B 12 Injection, 1000 mcg (J3420)By: On: 24-Jun-2013 Intent Fast DO, Kristine A Fast DO, Kristine A Comments: Lot:[id number]:04/28Dose:1mlRoute:IMSite:[place] By:TAVON signed B 12 Injection, 1000 mcg (J3420)By: On: 15-May-2013 Intent Visit, Nurse Comments: Lot:[id number]:01/25Dose:1mlRoute:IMSite:[place] By:TAVON signed B 12 Injection, 1000 mcg (J3420)By: On: 22-Apr-2013 Intent Fast DO, Kristine A Fast DO, Kristine A Comments: lot: [id number]: 01/25site/route: L deltoid/IMamt: 1mLVIS signed when applicableChelsea, SENIOR PHP SOFTWARE DEVELOPER B 12 Injection, 1000 mcg (J3420)By: On: 21-Mar-2013 Intent Fast DO, Kristine A Fast DO, Kristine A Comments: see flowsheetMegan PNEUM VAC ADLT/IMUMNOSPR, SBC/INTRM On: 18-Feb-2013 Intent (91814)By: Fast DO, Kristine A Fast Comments: Lot: [id number]: 46Voo59Hgc: 0.5mlRoute: IMSite: L deltoidGiven by: ANOOP Moralez DO, Kristine A ADMINISTRATION OF PNEUMOCOCCAL On: 18-Feb-2013 Intent VACCINE (G0009)By: Fast DO, Kristine A Fast DO, Kristine A Eprescribed prescriptions On: 18-Feb-2013 Intent (G8553)By: Deanna Michelle B 12 Injection, 1000 mcg (J3420)By: On: 02-Jan-2013 Intent Deanna Michelle Comments: lot: [id number]: 10/25site/route: L deltoid/IMamt: 1mLVIS signed when applicableChelsea, SENIOR PHP SOFTWARE DEVELOPER B 12 Injection, 1000 mcg (J3420)By: On: [...] 08/24site/route: R deltoid/IMamt: 1mLVIS signed when applicableChelsea, SENIOR PHP SOFTWARE DEVELOPER B 12 Injection, 1000 mcg (J3420)By: On: 28-Aug-2012 Intent Fast DO, Kristine A Fast DO, Kristine A Comments: Lot #:[id number] date:mount given:1mlRoute: IMSite given: left deltoidGiven by: AYAD Dailey B 12 Injection, 1000 mcg (J3420)By: On: 23-Jul-2012 Intent Fast DO, Kristine A Fast DO, Kristine A Comments: Lot: [id number]: 02/23Amt: 1000mcg/1mlRoute: IMSite: L Deltoid per pt [...] A Fast DO, Kristine A Comments: lot: [id number]:02/23site/route: L deltoid/IMamt: 1ccVIS signed when applicableChelsea, SENIOR PHP SOFTWARE DEVELOPER B 12 Injection, 1000 mcg (J3420)By: On: 09-May-2012 Intent Kylee Castellon Comments: Lot:[id number]:02/2014Dose:1mlRoute:IMSite:L armGiven By:Jameson signed VENOUS DOPPLER LOWER EXTREMITY On: 18-Apr-2012 Intent (42456)By: Fast DO, Kristine A Fast DO, Kristine A Radiology - Hip - RightBy: Fast DO, On: 06-Apr-2012 Intent Kristine A Fast DO, Kristine A Comments: call results B 12 Injection, 1000 mcg (J3420)By: On: 06-Apr-2012 Intent Lisandra Chilel Comments: Lot #[id number]-66/14Site-left deltoidDose-1 mlgiven by: Omkar Rivera LPN Eprescribed prescriptions On: 06-Apr-2012 Intent (G8553)By: Lisandra Chilel Inhaler Demo (34305)By: Fast DO, On: 06-Feb-2012 Intent Kristine A Fast DO, Kristine A B 12 Injection, 1000 mcg (J3420)By: On: 06-Feb-2012 Intent Kylee Castellon Comments: Lot:[id number]:Dose:1mlRoute:IMSite:L armGiven By:TAVON signed MAMMOGRAM, SCREENING, BOTH BREASTS On: 06-Feb-2012 Intent (41653)By: Fast DO, Kristine A Fast DO, Kristine [...] Coverage Instructions Apply. See CIM: 45-4 and [facility]: 2049) (J3420)By: Licha Almaguer LPN [...] mlRoute: IMSite given: left deltoidGiven by: AMI Alcarazlower in supervisor - Cervical SpineBy: Fast On: 13-Apr-2011 Intent DO, Kristine A Fast DO, Kristine A TD Injection , IM (37348)By: On: 13-Apr-2011 Intent Lisandra Chilel Comments: received in 2005 B 12 Injection, 1000 mcg (J3420)By: On: 29-Mar-2011 Intent Kateryna Lunsford MD Comments: Lot #[id number]-8.13Site-Left arm, IMDose 0.5mlgiven by:Татьяна B 12 Injection, 1000 mcg (J3420)By: On: 08-Feb-2011 Intent Татьяна Vera LPN Comments: Lot [id number]#Exp-7.13Site-R arm, IMDose 1mlgiven by:Татьяна DXA, BONE DENSITY, AXIAL SKELETON On: 24-Jan-2011 Intent (14317)By: Lisandra Chilel Comments: post menopausal wihtout estrogen FLU VAC, SPLIT, >3 YEARS, INTRAMUSC On: 24-Jan-2011 Intent (81429)By: Lisandra Chilel Comments: received at [facility] B 12 Injection, 1000 mcg (J3420)By: On: 21-Dec-2010 Intent Licha Almaguer LPN INJECTION, VITAMIN B-12 On: 19-Nov-2010 Intent CYANOCOBALAMIN, UP TO 1000 MCG Comments: Lot:[id number]:04/25Amt:1mlRoute:IMSite:left deltGiven By: ANOOP Sotelo (Special Coverage Instructions Apply. See CIM: 45-4 and MCM: 9) (J3420)By: Vi Ramirez EKG (87842)By: Lisandra Chilel On: 05-Nov-2010 Intent Comments: ekg showed normal sinus rhythym, normal axis, no acute st/t wave changes MAMMOGRAM, SCREENING, BOTH BREASTS On: 05-Nov-2010 Intent (19681)By: Fast DO, Kristine A Fast DO, Kristine [...] 03-Jun-2010 Intent Yasmeen Rivera LPN Comments: Lot #[id number]/12Site-left deltoidDose-1 mlgiven by:[facility] IMMUNIZ ADMNIN, 1 VAC, SNGL/COMBO On: 19-Apr-2010 Intent (19138)By: Yasmeen Rivera LPN Comments: Lot #[id number]-0/19/12Site-left deltoidDose- 0.85mlgiven by:[facility] [place] VACC, [place] (14211)By: Miguel On: 19-Apr-2010 Intent Yasmeen DAVALOS B [...] 25-Jan-2010 Intent Yasmeen Rivera LPN Comments: Lot #[id number]-left deltoidDose-1 mlgiven by:[facility] FLU VAC, SPLIT, >3 YEARS, INTRAMUSC On: 30-Dec-2009 Intent (82553)By: Lisandra Chilel Comments: Lot #[id number]/Site-left deltoidgiven by:PRICE B 12 Injection, 1000 mcg (J3420)By: On: 30-Dec-2009 Intent Lisandra Chilel Comments: Lot #[id number]-5/12Site-right deltoidDose-1 mlgiven by:PRICE Renal Duplex ScanBy: Fast DO, Kristine On: 30-Dec-2009 Intent A Fast DO, Kristine A IMMUNIZ ADMNIN, 1 VAC, SNGL/COMBO On: 30-Dec-2009 Intent (53344)By: Lisandra Chilel B 12 Injection, 1000 mcg (J3420)By: On: 14-Dec-2009 Intent Shayna Harris Comments: Lot:[id number]:07/22Dose:1000mcg/1mlRoute:IMSite:right deltoid Given by: AYAD Gil B 12 Injection, 1000 mcg (J3420)By: On: 26-Nov-2009 Intent Phyllis Escobar RN Comments: documented in flowsheet B 12 Injection, 1000 mcg (J3420)By: On: 19-Oct-2009 Intent Yasmeen Rivera LPN Comments: Lot #[id number]-04/24Site-left deltoidDose-1 mlgiven by:[facility] B 12 Injection, 1000 mcg (J3420)By: On: 13-Oct-2009 Intent Shayna Harris Comments: Lot:[id number]:04/24Dose:1000mcg/1mlRoute:imSite:right sideGiven by: AYAD Gil B 12 Injection, 1000 mcg (J3420)By: On: 06-Oct-2009 Intent Fast DO, Kristine A Fast DO, Kristine A Comments: Lot #[id number]-04/24Site-right deltoidDose- 1 mlgiven by:[facility] [...] do this week and call ressults EKG (94653)By: Fast DO, Kristine A On: 17-Dec-2008 Intent Fast DO, Kristine A Comments: ekg showed normal sinus rhythym, normal axis, no acute st/t wave changes MAMMOGRAM, SCREENING, BOTH BREASTS On: 17-Dec-2008 Intent (09504)By: Fast DO, Kristine A Fast DO, Kristine A MRI - Lumbar SpineBy: Fast DO, On: 17-Dec-2008 Intent Kristine A Fast DO, Kristine A FLU VAC, SPLIT, >3 YEARS, INTRAMUSC On: 17-Dec-2008 Intent (37018)By: Lisandra Chilel Comments: Lot #:[id number] date:mount given:0.5mlRoute: IMSite given:left deltoidGiven by: AYAD Dailey ADMINISTRATION OF INFLUENZA VIRUS On: 17-Dec-2008 Intent VACCINE (G0008)By: Lisandra Chilel CT - Abdomen & Pelvis Stone On: 18-Aug-2008 Intent ProtocolBy: Kristine Davis DO A Antwan Comments: stat -call results Kristine MIX A Radiology - Chest- PA and LatBy: On: 24-Mar-2008 Intent Kristine Davis DO A Antwan DO, Kristine A Spirometry (98755)By: Antwan MIX, On: 24-Mar-2008 Intent Kristine Davis DO Kristine A Comments: good effort and curve minimal decrease small airways ADMINISTRATION OF PNEUMOCOCCAL On: 17-Dec-2007 Intent VACCINE (G0009)By: Kristine Davis DO, DO Kristine A PNEUM VAC ADLT/IMUMNOSPR, SBC/INTRM On: 18-Dec-2007 Intent ([id number])By: Kristine Davis DO Comments: Lot #:[id number] date:08/19Amount given:0.5mlRoute: IMSite given:left deltGiven by: AYAD Dailey DO, Kristine A MAMMOGRAM, SCREENING, BOTH BREASTS On: 17-Dec-2007 Intent ([id number])By: Kristine Davis DO Comments: end of feb DO, Kristine A DXA, BONE DENSITY, AXIAL SKELETON On: 31-Oct-2007 Intent ([id number])By: Kristine Davis DO, DO Kristine A Echo CompleteBy: Antwan DO, Kristine A On: 25-Jul-2007 Intent Antwan DO, Kristine A Bio Z ([id number])By: Antwan MIX Kristine A On: 25-Jul-2007 Intent Antwan DO Kristine A Comments: good cardiac output and no excesive gfluid EKG (13499)By: Kristine Davis DO A On: 25-Jul-2007 Intent Antwan DO Kristine A Comments: ekg showed normal sinus rhythym, normal axis, no acute st/t wave changes CT - Abdomen & Pelvis (IV Contrast On: 11-Jul-2007 Intent Needed)By: Adrianna Morgan DO MAMMOGRAM, SCREENING, BOTH BREASTS On: 27-Mar-2006 Intent ([id number])By: Adrianna Morgan DO Planned Medications Vitamin B-12 [...] MCG/ML Injection Solution Ordered: 22-Apr-2014 Pending Slarb SOLAR DESIGN ENGINEER, Silvia Vitamin B-12 1000 MCG/ML Injection Solution Ordered: 24-Mar-2014 Pending Fast DO, Kristine A Fast DO, Kristine A Vitamin B-12 1000 MCG/ML Injection Solution Ordered: 24-Feb-2014 Pending Slarb SOLAR DESIGN ENGINEER, Silvia Vitamin B-12 1000 MCG/ML Injection Solution [...] MCG/ML Injection Solution Ordered: 05-Nov-2015 Pending Emick, Acushnet Vitamin B-12 1000 MCG/ML Injection Solution Ordered: 05-Oct-2015 Pending Fast DO, Kristine A Fast DO, Kristine A Vitamin B-12 1000 MCG/ML Injection Solution Ordered: 05-Nov-2013 Pending Fast DO, Kristine A Fast DO, Kristine A Vitamin B-12 1000 MCG/ML Injection Solution Ordered: 11-Oct-2013 Pending Ciesa FULL STACK WEB DEVELOPER, Judy Vitamin B-12 1000 MCG/ML Injection Solution [...] MCG/ML Injection Solution Ordered: 19-Apr-2010 Pending Radhauszti SOLAR DESIGN ENGINEER, Yasmeen Vitamin B-12 1000 MCG/ML Injection Solution [...] 1000 MCG/ML Injection Solution Ordered: 02-Jan-2013 Pending Viviana, Deanna Vitamin B-12 1000 MCG/ML Injection Solution Ordered: 26-Nov-2012 Pending Fast DO, Krisitne A Fast DO, Kristine A Vitamin B-12 1000 MCG/ML Injection Solution Ordered: 29-Oct-2012 Pending Татьяна Vera LPN Vitamin B-12 1000 MCG/ML Injection Solution Ordered: 21-Sep-2012 Pending Viviana, Deanna Vitamin B-12 1000 MCG/ML Injection Solution [...] Indication: Essential hypertension Encounters Office Visit On: 02-Jan-2018 12:54 Encounter Reason: [...] / tylenol and - more mobile on - cleo notices a difference Encounter Diagnosis: Nonsmoker, [...] current emotional problems. Note for Physical exam: [facility]- just had left cataract done [...] emotional problems . Note for Physical exam: [facility]- her hip bursitis better can [...] do a lot of walking Encounter Diagnosis: [facility], Nonsmoker, BMI 37.0-37.9, adult, Hip [...] up for chronic medical issues: getting corti sonhunter in left knee next week and is [...] Date of procedure: ( End: 10-Dec-2014 21:34 /19/15 at [facility] with dr Mahesh stokes) . There have been no problems with general anesthesia or blood/blood products. Prosthetics include: dentures (partial). Note for Preoperative evaluation: [facility] Dr Stokes- having spinal [...] scleroderma, leukopenia). 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 Note for Follow up for wedding decorator tim medical issues: No routine labs done [...] scleroderma, leukopenia). Note for Follow up for wedding decorator tim medical issues: still having right lateral [...] scleroderma, leukopenia). 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
--- OUTSIDE RECORDS SUMMARY | 2018-06-01 23:55 | XMS RPT_ITS | Continuity of Care Document ---
:1940 Author Organization [facility] Address [address] [place] [address] Phone Care Team Providers Name Role Phone [...] GOTTIjuana Kristine A Start : 02-Mar-2016 Active Comments:[facility] report#[id number], df approved and given to pt-[facility] 03/02/16 Imipramine HCl 25 MG Oral Tablet 1 (one) Tablet qhs prn for 0 days Quantity: 30 {Tablet} Refills: 1 Ordered:14-Jul-2017 Antwan MIX Kristine GOTTIjuana MIX Kristine A Start : 14-Jul-2017 Active Comments:verbally called to [facility] 5/4 Leg Cramps 7 to 8 [...] cap daily (100 MG) Active Vitamin D3 27169 UNIT Oral Capsule 1 (one) Capsule once [...] : 11-Jul-2007 End : 08-Aug-2007 Discontinued Drisdol 28087 UNIT Oral Capsule 1 (one) Capsule once [...] Chilel End : 08-Aug-2007 Discontinued VITAMIN D, 47077EWBS (Oral Capsule) 1 cap q week (49862 UNIT) Start : 27-Mar-2013 End : 27-Mar-2013 Discontinued Comments:This order discontinued per [employer]. VITAMIN D, 80147DDFS (Oral Capsule) 1 cap Capsule q week [...] Result: Comments: See Note; NOTES: [facility] Cardiovascular Services [address] [place] [address] 10/02/17 0928 MR#: [id number] Acct: [id number] Name: VIRGINIA URRUTIA Rep #: [id number] : 1940 76 From: Johan Ortega MD Attending Dr: Kristine Davis DO Status: REG REF Ordering Dr: Date: 10/05/17 Location: [facility] Sex: F C Admitted: Reason For Study: [...] DO Date Dictated: 10/02/17927 Date Transcribed: 10/05/171656 Business Developer: Signed 02-Oct-2017 SCREENING MAMM (CAD), BILAT Result: Comments: See Note; NOTES: [facility] Imaging Services [address] [place] [address] SCREENING MAMM (CAD), BILAT MR#: [id number] Acct: [id number] Name: VIRGINIA URRUTIA Rep #: [id number] : 1940 F 76 From: Noel Avitia MD PCP: Kristine Davis DO Status: REG CLI Study: SCREENING MAMM (CAD), BILAT Date of Exam: 10/02/17 Exam# [id number] Ordering Dr: Kristine Davis DO MAMMOGRAPHY - [...] Service support , CC: Kristine Davis DO Business Developer: Signed 14-Sep-2016 Venous Duplex Lower Extremity Result: Comments: See Note; NOTES: [facility] Cardiovascular Services [address] [place] [address] Venous Duplex US, Unilateral 09/14/16 1558 MR#: [id number] Acct: [id number] Name: Sonia CLAYEVIEVIRGINIA Mook Rep #: [id number] : 1940 75 From: Johan Ortega MD [...] Ortega MD on 09/14/2016 05:15 PM 09/14/16 1713 Date Johan Ortega MD CC: Kristine Davis DO Date Dictated: 09/14/16 1558 Date Transcribed: 09/14/161714 Business Developer: Signed 23-Aug-2016 Re-Evaluation - PT (1) Result: Comments: See Note; NOTES: [facility] Physical Therapy [facility] [address] [place] [address]. [address] [place], [place] [address] Fax REEVALUATION / MEDICARE RECERTI FICATION [place] 4d PHYSICAL THERAPY MR#: [id number] Acct: [id number] Name: VIRGINIA URRUTIA Rep #: [id number] : 1940 75 From: Humberto Aguilar DPT, OCS, CSCS Referring : OUT OF TOWN DOCTOR Status : REG RCR Insurance: [employer] [facility] Out of Town Doctor, It has been [...] do not hesitate to contact me at [phone] by phone or if you have questions or concerns regarding this new plan of care! Sincerely, Humberto Aguilar DPT, OC <Electronically signed by Humberto Aguilar DPT, PACHECO, CSCS> 08/23/16 0929 CC: Kristine Davis DO; OUT OF [facility] DOCTOR EBG Signed For Medicare only, by signing this I certify the plan of care. Physicians Signature Date 29-Jul-2016 Inital Evaluation (1) - PT Result: Comments: See Note; NOTES: [facility] Physical Therapy [facility] [address] [place] [address]. [address] [place] [address] Fax REHABILITATION SERVICES INITIAL EVALUATION MR#: [id number] Acct: [id number] Name: VIRGINIA URRUTIA Rep #: [id number] : 1940 75 From: Humberto Aguilar DPT, PACHECO, CSCS Referring Dr.: OUT OF TOWN DOCTOR Status: REG RCR Insurance: AE W[employer] [facility] Patient's Visit Information VIRGINIA URRUTIA is a [...] to be FAXED BACK to us at [phone] for Medica re purposes. Please let me [...] Result: Comments: See Note; NOTES: [facility] Medical Records Department [address] [facility] [place] [address] Emergency Department Summary MR#: [id number] Acct: [id number] Name: VIRGINIA URRUTIA Rep #: [id number] : 1940 75 From: Byron Harris MD [...] C: Kristine Davis DO T: NTS JOB: [id number] 04/19/164 <Electronically signed by Byron Harris MD> Date Byron Harris MD Cosigner Signature (If Indicated): Date CC: Kristine Davis DO Date Dictated: 04/15/1634 Date Transcrib ed: 04/15/1634 Business Developer: Signed 15-Apr-2016 Discharge Instruction Result: Comments: See Note; NOTES: [facility] Medical Records Department [address] [place] [address] Discharge Instruction 04/14/16 2307 MR#: [id number] Acct: [id number] Name: VIRGINIA URRUTIA Rep #: [id number] : 1940 75 From: Byron Harris MD [...] your Primary Care Provider. Call Doctors Registry ([phone]) or report to the closest Emergency Room. Call 911 if necessary. 04/15/16 0118 &#6 0;Electronically signed by Byron Harris MD> Date Byron Harris MD Cosigner Signature (If Indicated): Date CC: Kristine Davis DO -Apr-2016 Venous Duplex Imag/Limited/Uni Result: Comments: See Note; NOTES: [facility] Imaging Services [address] [place] [address] [place] 4d Venous Duplex Imag/Limited/Uni MR#: [id number] Acct: [id number] Name: RHONA URRUTIA Rep #: [id number] : 1940 F 75 From: Doug Sinclair DO PCP: Kristine Davis DO Status: [facility] ER Study: Venous Duplex Imag/Limited/Uni Date of Exam: 04/14/16 Exam# [id number] Ordering Dr: Byron Harris MD STUDY: VENOUS [...] Doug Sinclair DO at 23:15 EST Tel [phone], Service support [phone], CC: Kristine Davis DO; Byron Harris MD Business Developer: Signed 13-Apr-2016 Spine Lumbar (Routine) Result: Comments: See Note; NOTES: [facility] Imaging Services [address] [place] [address] [place] 4d Spine Lumbar (Routine) MR#: [id number] Acct: [id number] Name: VIRGINIA URRUTIA p #: [id number] : 1940 F 75 From: Tiara Parsons MD PCP: Kristine Davis DO Status: REG CLI Study: Spine Lumbar (Routine) Date of Exam: 04/13/16 Exam# [id number] Ordering Dr: Kristine Davis DO STUDY: MRI [...] MD at 11:48 EST , Service support [phone], CC: Kristine Davis DO Business Developer: Signed 12-Apr-2016 PT D/C Summary (1) Result: Comments: See Note; NOTES: [facility] Physical Therapy [facility] [address] [place] [address] Fax REHABILITATION SERVICES DISCHAR GE SUMMARY MR#: [id number] Acct: [id number] Name: VIRGINIA URRUTIA Rep #: [id number] : 1940 75 From: Humberto Aguilar DPT, OCS, CSCS Referring Dr.: Kristine Davis DO Status: REG R Insurance: [facility] - PT D/C Summary It has been my pleasure to treat VIRGINIA URRUTIA under orders from Kristine Davis DO, for the diagnosis of R hip pain for a total of 12 visit(s). Discharge Date: Please see the [facility] information for a summary of [...] help or hurt it. Will be in [place] in May and will have L TKA [...] please feel free to call me at [phone]. Thank eric laureano for the referral of this patient. Sincerely, Humberto Aguilar DPT, OC <Electronically signed by Humberto Aguilar DPT, OCS, CSCS> 04/12/16 1621 CC: Kristine Davis DO EBG Signed 12-Apr-2016 Dexa Bone Density Study () Result: Comments: See Note; NOTES: [facility] Imaging Services [address] [place] [address] [place] 4d Dexa Bone Density Study (HP) MR#: [id number] Acct: [id number] Name: URRUTIAENE DUBOSE Lizett Delvalle Rep #: [id number] : 1940 F 75 From: Dashawn Rowe MD PCP: Kristine Davis DO Status: REG CLI Study: Dexa Bone Density Study () Date of Exam: 04/12/16 Exam# [id number] Ordering Dr: Magallanes DO STUDY: DUAL ENERGY [...] Dashawn Rowe MD at 14:32 EST Tel [phone], Service support [phone], CC: Kristine Davis DO Business Developer: Signed 10-Mar-2016 Inital Evaluation (1) - PT Result: Comments: See Note; NOTES: [facility] Physical Therapy [facility] [address] [place] [address] Fax REHABILITATION SERVICES INITIAL EVALUATION MR#: [id number] Acct: [id number] Name: VIRGINIA URRUTIA Rep #: [id number] : 1940 75 From: Jennifer Gongora DPT Referring Dr.: Kristine Davis DO Status: REG RCR Insurance: [facility] isabella's Visit Information VIRGINIA URRUTIA is a [...] to be FAXED BACK to us at [phone] for Medicare purposes. Please let me know if there are questio ns or concerns regarding this plan of care. Physician Signature: Date: <Electronically signed by Jennifer Gongora DPT> 1243 CC: Kristine Davis DO ELR Signed For Medicare only, by signing this I certify the plan of care. Physicians Signature Date 17-Dec-2015 Echocardiogram Complete Result: Comments: See Note; NOTES: [facility] Cardiovascular Services [address] [place] [address] Echo Complete 12/17/15 1401 MR#: [id number] Acct: [id number] Name: VIRGINIA URRUTIA Rep #: [id number] : 1940 75 From: Chicho Bahena MD Attending Dr: Kristine Davis DO Status: REG CLI Ordering Dr: Kristine Davis DO Date: 12/17/15 Location: [facility] Sex: F C Admitted: Reason For Study: [...] Date Dictated: 12/17/15 1401 Date Transcribed: 12/17/151700 Business Developer: Signed 11-Dec-2015 Bilat Scrn Digital AND CAD Result: Comments: See Note; NOTES: [facility] Imaging Services [address] [place] [address] Verdana 4d Bilat Scrn Digital AND CAD MR#: [id number] Acct: [id number] Name: VIRGINIA URRUTIA Rep #: [id number] : 1940 F 75 From: Dashawn Rowe MD PCP: Kristine Davis DO Status: REG CLI Study: Bilat Scrn Digital AND CAD Date of Exam: 12/11/15 Exam# [id number] Ordering Dr: Kristine Davis DO MAMMOGRAPHY - [...] delay biopsy of a clinically suspicious abnormality. [id number] Electronically Signed: Dashawn Rowe MD at 8:47 EDT Tel [phone], Service support [phone], CC: Kristine Davis DO Business Developer: Signed 03-Jan-2015 Emergency Department Summary Result: Comments: See Note; NOTES: [facility] Medical Records Department [address] [place] [address] Emergency Department Summary MR#: [id number] Acct: [id number] Name: VIRGINIA URRUTIA Rep #: [id number] : 1940 74 From: Ivette Cline PCP: [...] C: Kristine Davis DO T: NTS JOB: [id number] 01/03/152 <Electronically signed Marija Cline > Date Ivette Cline Cosigner Signature (If Indicated): Date CC: Kristine Davis DO Date Dictated: 12/27/141108 Date Transcribed: 12/27/141108 Business Developer: Signed 27-Dec-2014 Discharge Instruction Result: Comments: See Note; NOTES: [facility] Medical Records Department [address] [place] [address] Discharge Instruction 12/27/14 1100 MR#: [id number] Acct: [id number] Name: VIRGINIA URRUTIA Rep #: [id number] : 1940 74 From: Ivette Cline PCP: [...] problems, contact your doctor. Call Doctors Registry ([phone]) or report to the closest Emergency Room. Call 911 if necessary. 12/27/14 1106 <Electronically signed by Ivette Cline > Date Ivette Cline Cosigner Signature (If Indicated): Date _ CC: Kristine Davis DO 27-Dec-2014 Spine Cervical without Contras Result: Comments: See Note; NOTES: [facility] Imaging Services [address] [place] [address] Verd[place] 4d Spine Cervical without Contras MR#: [id number] Acct: [id number] Na me: VIRGINIA URRUTIA Rep #: [id number] : 1940 F 74 From: Doug Sinclair DO PCP: Kristine Davis DO Status: REG ER Study: Spine Cervical without Contras Date of Exam: 12/27/14 Exam# [id number] Ordering Dr : Ivette Cline STUDY: CT [...] Doug Sinclair DO at 10:36 EDT Tel [phone], Service suppo rt [phone], CC: Ivette Cline; Kristine Davis DO Business Developer: Signed 23-Dec-2014 Emergency Department Summary Result: Comments: See Note; NOTES: [facility] Medical Records Department [address] [place] [address] Emergency Department Summary MR#: [id number] Acct: [id number] Name: VIRGINIA URRUTIA Rep #: [id number] : 1940 74 From: Se Dawkins MD [...] acute. Se Dawkins MD T: NTS JOB: [id number] 12/23/14 0800 <Electronically signed by Se Dawkins MD> Date Se Dawkins MD Cosigner Signature (If Indicated): Date CC: Kristine Davis DO Date Dictated: 12/23/1408 Date Transcribed: 12/23/14707 Business Developer: Signed 23-Dec-2014 Discharge Instruction Result: Comments: See Note; NOTES: [facility] Medical Records Department [address] [place] [address] Discharge Instruction 12/23/14704 MR#: [id number] Acct: [id number] Name: VIRGINIA URRUTIA Rep #: [id number] : 1940 74 From: Se Dawkins MD [...] problems, contact your doctor. Call Doctors Registry ([phone]) or r eport to the closest Emergency Room. Call 911 if necessary. 12/23/14705 <Electronically signed by Se Dawkins MD> Date Se collins MD Cosigner Signature (If Indicated): Date CC: Kristine Davis DO 10-Dec-2014 ELECTROCARDIOGRAM, COMPLETE (ECG) (40779) Result: [MEASUREMENTS ANALYSIS] Date of Test: 12/10/2014 10:23:24; Heart Rate: 91; DC Interval: 144; QRS: 96; QT Interval: 372; Corrected QT Interval (QTc): 426; P Wave [place]: 49; QRS Wave [place]: 35; T Wave [place]: 30; Blood Pressure: 0/0 [ECG DIAGNOSTIC STATEMENTS] Date of Test: 12/10/2014 10:23:24; Summary: Sinus Rhythm Low voltage in limb leads. ABNORMAL 22-Sep-2014 Abdomen/Pelvis WITH Contrast Result: Comments: See Note; NOTES: [facility] Imaging Services [address] [place] [address] CAT Scan Report MR#: [id number] Acct: [id number] Name: VIRGINIA URRUTIA Rep #: [id number] : 1940 F 73 From: Rey Rojo MD PCP: Kristine Davis DO Status: REG CLI Study: Abdomen/Pelvis WITH Contrast Date of Exam: 09/22/14 Exam# [id number] Ordering Dr: Kristine Davis DO STUDY : [...] IMPRESSION: No CT evidence of an ac blackfeet intra-abdominal or pelvic process. Redemonstrated small multiple gallstones and bilateral renal cysts. Normal appendix. Electronically Signed: Rey Rojo MD at 16:58 EDT Te l [phone], Service support [phone], CC: Kristine Davis DO Business Developer: Signed 31-Mar-2014 Transvaginal Non- Result: Comments: See Note; NOTES: [facility] Imaging Services [address] [place] [address] Ultrasound Report MR#: [id number] Acct: [id number] Name: VIRGINIA URRUTIA Rep #: [id number] : 1940 F 73 From: Dashawn Rowe MD PCP: Kristine Davis DO Status: REG CLI Study: Transvaginal Non- Date of Exam: 03/31/14 Exam# [id number] Ordering Dr: Kristine Davis DO STUD Y: [...] Dashawn Rowe MD at 13:55 EST Tel [phone], Service support [phone], F ax [phone] CC: Kristine Davis DO Business Developer: Signed 31-Mar-2014 Pelvic (Non ) Result: Comments: See Note; NOTES: [facility] Imaging Services [address] [place] [address] Ultrasound Report MR#: [id number] Acct: [id number] Name: VIRGINIA URRUTIA Rep #: [id number] : 1940 F 73 From: Dashawn Rowe MD PCP: Kristine Davis DO Status: REG CLI Study: Pelvic (Non ) Date of Exam: 03/31/14 Exam# [id number] Ordering Dr: Kristine Davis DO STUDY: U [...] Dashawn Rowe MD at 13:55 EST Tel [phone], Service support [phone], Fax CC: Kristine Davis DO Business Developer: Signed 22-Jan-2014 Laverne Scrn Digital & CAD Result: Comments: See Note; NOTES: [facility] Imaging Services [address] [place] [address] Breast Imaging Report MR#: [id number] Acct: [id number] Name: VIRGINIA URRUTIA Rep #: [id number] : 1940 F 73 From: Dashawn Rowe MD PCP: Kristine Davis DO Status: REG CLI Exam# [id number] Ordering Dr: Kristine Davis DO MAMMOGRAPHY - [...] Dashawn Rowe MD at 14:49 EST Tel [phone], Ser vice support [phone], CC: Kristine Davis DO Business Developer: Signed 07-Nov-2013 L/S Spine Min 4 Views Result: Comments: See Note; NOTES: [facility] Imaging Services [address] [place] [address] Radiology Report MR#: [id number] Acct: [id number] Name: VIRGINIA URRUTIA Rep #: [id number] : 1940 F 73 From: Tod Lamas MD PCP: Kristine Davis DO Status: REG CLI Study: L/S Spine Min 4 Views Date of Exam: 11/07/13 Exam# [id number] Ordering Dr: Kristine Davis DO STUDY: X-RA [...] at 18:52 EDT Tel , Service support [phone], CC: Kristine Davis DO Business Developer: Signed 07-Nov-2013 Thoracic Spine 3 Views Result: Comments: See Note; NOTES: [facility] Imaging Services [address] [place] [address] Radiology Report MR#: [id number] Acct: [id number] Name: VIRGINIA URRUTIA Rep #: [id number] : 1940 F 73 From: Tod Lamas MD PCP: Kristine Davis DO Status: REG CLI Study: Thoracic Spine 3 Views Date of Exam: 11/07/13 Exam# [id number] Ordering Dr: rKistine Davis DO STUDY: X-R AY - THORACIC [...] at 17:07 EDT Tel , Service support [phone], CC: Kristine Davis DO Business Developer: Signed 05-Nov-2013 Abdomen/Pelvis without Cont Result: Comments: See Note; NOTES: [facility] Imaging Services [address] [place] [address] CAT Scan Report MR#: [id number] Acct: [id number] Name: VIRGINIA URRUTIA Rep #: [id number] : 1940 F 73 From: Dashawn Rowe MD PCP: Kristine Davis DO Status: REG CLI Study: Abdomen/Pelvis without Cont Date of Exam: 11/05/13 Exam# [id number] Ordering Dr: Kristine Davis DO STUD Y: [...] Dashawn Rowe MD at 15:39 EDT Tel [phone], Service supp ort [phone], CC: Kristine Davis DO Business Developer: Signed 07-Oct-2013 Kidney and Bladder Result: Comments: See Note; NOTES: [facility] Imaging Services [address] [place] [address] Ultrasound Report MR#: [id number] Acct: [id number] Name: URRUTIAVIRGINIA J Rep #: [id number] : 1940 F 72 From: Brook Cummings DO PCP: Kristine Davis DO Status: REG CLI Study: Kidney and Bladder Date of Exam: 10/07/13 Exam# [id number] Ordering Dr: Aquiles Potts STUDY: RENAL ULTRAS [...] Tel , Service support , CC: Aquiles Haydeekoryrafi; Kristine Davis DO Business Developer: Signed Immunization Name Dates Details Influenza (3 years and up) on: 17-Dec-2008 Comments: Lot #:[id number] date:mount given:0.5mlRoute: IMSite given:left deltoidGiven by: AYAD [...] smoker Vital Signs Date Test Result Details 28-Gps-883532:07 Temperature 97.9 f Comments: Method: Temporal Pulse [...] kg/m2 Body Surface Area Calculated 2.07 m2 67-Foz-474565:12 Temperature 97.6 f Pulse 92 /min Comments: [...] Date Description Value Details :31 LIPID PANEL (34865) Comments: PATIENT WAS FASTINGPERFORMED BY: Aktino70 [employer] [facility] [id number]; appt 01/02 LDL/HDL Ratio 1.9 {ratio} (Normal) [...] be changing to: Male Female 40 - 446333 50 - 407540 Triglycerides 145 mg/dL (Normal) Range: 0-149 Cholesterol, Total 240 mg/dL (Abnormal) Range: 100-199 00-Obh-47374:31 METABOLIC PANEL, COMPREHENSIVE Comments: PATIENT WAS FASTINGPERFORMED BY: Foodily6370 [employer] [facility] [id number] (25456) ALT (SGPT) 16 [iU]/L (Normal) Range: 0-32 [...] 8-27 Glucose 98 mg/dL (Normal) Range: 65-99 09-Xwx-842888:13 METABOLIC PANEL, BASIC Comments: PATIENT NOT FASTINGPERFORMED BY: Aktino70 [place] [facility] [id number]; review on 01/02 (98311) Calcium 9.9 mg/dL (Normal) Range: 8.7-10.3 Carbon [...] 8-27 Glucose 98 mg/dL (Normal) Range: 65-99 10-Zzm-977486:38 GGT (Gamma Glutamyl Comments: PATIENT NOT FASTINGPERFORMED BY: Aktino70 [employer] [facility] [id number] Transferase) (60489) GGT 20 [iU]/L (Normal) Range: 0-60 20-Tdw-820195:38 Alkaline Phosphatase (87068) Comments: PATIENT NOT FASTINGPERFORMED BY: LISBETH [facility] Dcqrno0069 [facility] [place] [id number] Alkaline Phosphatase 131 [iU]/L (Abnormal) Range: 39-117 53-Uio-535487:38 THYROXINE FREE (67862) Comments: PATIENT NOT FASTINGPERFORMED BY: [facility] Kqajup5374 [facility] [place] [id number] T4,Free(Direct) 1.92 ng/dL (Abnormal) Range: 0.82-1.77 :38 FREE TRIDOTHYRONINE (T3) (68707) Comments: PATIENT NOT FASTINGPERFORMED BY: [facility] Jqlsfp3695 [facility] [place] [id number] Triiodothyronine,Free,Serum 2.4 pg/mL (Normal) Range: 2.0-4.4 58-Bje-044853:38 VITAMIN B-12 (CYANOCOBALAMIN) Comments: PATIENT NOT FASTINGPERFORMED BY: [facility] Ibbkes1626 [facility] [place] [id number] (67543) Vitamin B12 665 pg/mL (Normal) Range: 232-1245 36-Jee-37465:06 VITAMIN B-12 (CYANOCOBALAMIN) Comments: PATIENT NOT FASTINGPERFORMED BY: [facility] Vrwnvw1779 [facility] [place] [id number] (64814) Vitamin B12 1301 pg/mL (Abnormal) Range: 232-1245 3-Faf-408473:25 Metabolic Panel, Comprehensive Comments: PATIENT NOT FASTINGPERFORMED BY: [facility] Jpxwqb6856 [facility] [id number]; review on 08/28 (52093) ALT (SGPT) 10 [iU]/L (Normal) Range: 0-32 [...] 8-27 Glucose 84 mg/dL (Normal) Range: 65-99 6-Dsj-257874:25 CBC WITH MANUAL DIFF (02367) Comments: PATIENT NOT FASTINGPERFORMED BY: [facility]Co[facility] CenterXohiub7709 [facility] [id number] Immature Grans (Abs) 0.0 {x10E3/uL} (Normal) Range: [...] 3.77-5.28 WBC 7.9 {x10E3/uL} (Normal) Range: 3.4-10.8 7-Ihk-565198:59 METABOLIC PANEL, COMPREHENSIVE Comments: PATIENT NOT FASTINGPERFORMED BY: [facility]Co[facility] CenterNscfhf2197 [facility] [id number] (37336) ALT (SGPT) 10 [iU]/L (Normal) Range: 0-32 [...] 88 mg/dL (Normal) Range: 65-99 :46 TSH (21376) Comments: 6 weeks; PATIENT NOT FASTINGPERFORMED BY: [facility] [id number] TSH 2.420 {uIU/mL} (Normal) Range: 0.450-4.500 :23 LIPID PANEL (99765) Comments: PATIENT WAS FASTINGPERFORMED BY: Ogorod [facility] MichiganSilicon[facility] [id number] LDL/HDL Ratio 1.6 {ratio_units} (Normal) Range: 0.0-3.2 [...] PANEL, COMPREHENSIVE Comments: PATIENT WAS FASTINGPERFORMED BY: Ogorod [facility] [id number] (15648) ALT (SGPT) 15 [iU]/L (Normal) Range: 0-32 [...] Glucose, Serum 96 mg/dL (Normal) Range: 65-99 91-Ieu-68136:23 CBC W/AUTO DIFF WBC (52357) Comments: PATIENT WAS FASTINGPERFORMED BY: [facility]Co[facility] CenterJngfdr9950 [facility] [id number] Immature Grans (Abs) 0.0 {x10E3/uL} (Normal) Range: [...] (Normal) Range: 3.4-10.8 :23 Vitamin D Hydroxy (05113) Comments: PATIENT WAS FASTINGPERFORMED BY: Foodily6370 [employer] [facility] [id number] Vitamin D, 25-Hydroxy 41.5 ng/mL (Normal) Range: 30.0-100.0 Comments: Vitamin D deficiency has been defined by the Shirley ofMer[facility] Health [facility] Hospitalcine and an Endocrine Society practice guideline as alevel of serum 25-OH vitamin D less than 20 ng/mL (1,2).The Endocrine Society went on to further define vitamin Dinsufficiency as a level between 21 and 29 ng/mL (2).1. IOM (Shirley of Medicine). 2010. Dietary reference intakes for calcium and D. [place]: The National Academies Press.2. Seng MF, Theresa NC, Kieran KOWALSKI, et al. Evaluation, treatment, and prevention of vitamin D deficiency: an Endocrine Society clinical practice guideline. JCEM. 2010; 96(7):1911-30. :23 TSH (11426) Comments: PATIENT WAS FASTINGPERFORMED BY: [employer] [facility] Nooxly6279 [facility] [place] [id number] TSH 0.429 {uIU/mL} (Abnormal) Range: 0.450-4.500 10-Gqs-12103:23 VITAMIN B-12 (CYANOCOBALAMIN) Comments: PATIENT WAS FASTINGPERFORMED BY: [facility]6370 [facility] [id number] (06487) Vitamin B12 553 pg/mL (Normal) Range: 211-946 1-Lus-687382:52 CBC, PLATELETS & MANUAL DIFF Comments: PATIENT NOT FASTINGPERFORMED BY: [facility]6370 [facility] [id number] (15302) Immature Grans (Abs) 0.0 {x10E3/uL} (Normal) Range: [...] 3.4-10.8 :09 Basic Metabolic Profile (BMP) Comments: [facility] V[address] [place], [place], [id number] GAP 9 (Normal) Range: 5-15 CO2 29.0 [...] :09 CBC-Complete Blood Cnt No Diff Comments: [facility] Coksf[address]cha[address] [place], [place], [id number] MPV 9.1 fL (Normal) Range: 6.2-12.0 PLT [...] 5.7 K/mm3 (Normal) Range: 4.4-11.0 :53 Magnesium (57353) Comments: PATIENT NOT FASTINGPERFORMED BY: [facility] CenterRdfnsw4632 [facility] [id number] Magnesium, Serum 1.9 mg/dL (Normal) Range: 1.6-2.3 :53 METABOLIC PANEL, COMPREHENSIVE Comments: PATIENT NOT FASTINGPERFORMED BY: [facility] CenterAmurvb9788 [facility] [id number]; non- emergent till apt (89419) ALT (SGPT) 18 [iU]/L (Normal) Range: 0-32 [...] Glucose, Serum 83 mg/dL (Normal) Range: 65-99 65-Aal-41153:53 TSH (59314) Comments: PATIENT NOT FASTINGPERFORMED BY: [facility] Mwakvj1187 [address]iva RoadDublin [place] [id number] TSH 1.810 {uIU/mL} (Normal) Range: 0.450-4.500 97-Bvk-889283:15 Vitamin D Hydroxy (34813) Comments: PATIENT NOT FASTINGPERFORMED BY: [facility] Fuznew3927 Oliva RoadDublin [place] [id number] Vitamin D, 25-Hydroxy 28.3 ng/mL (Abnormal) Range: 30.0-100.0 Comments: Vitamin D deficiency has been defined by the [place] ofMedicine and an Endocrine Society practice guideline as alevel of serum 25-OH vitamin D less than 20 ng/mL (1,2).The Endocrine Society went on to further define vitamin Dinsufficiency as a level between 21 and 29 ng/mL (2).1. IOM (Shirley of Medicine). 2010. Dietary reference intakes for calcium and D. [place]: The National Academies Press.2. Seng MF, Theresa [place], Kieran KOWALSKI, et al. Evaluation, treatment, and prevention of vitamin D deficiency: an Endocrine Society clinical practice guideline. JCEM. 2010; 96(7):1911-30. 74-Wrk-809225:15 VITAMIN B-12 (CYANOCOBALAMIN) Comments: PATIENT NOT FASTINGPERFORMED BY: [facility] Esnqpg[address] [facility] MichiganD[place] [id number] (47932) Vitamin B12 447 pg/mL (Normal) Range: 211-946 63-Mzu-775842:15 CBC W/AUTO DIFF WBC Comments: PATIENT NOT FASTINGPERFORMED BY: [facility] Mhdiyg5595 [address] [facility] MichiganD[place] [id number] Information: SRC:UC (14925) Immature Grans (Abs) 0.0 {x10E3/uL} (Normal) Range: [...] 3.77-5.28 WBC 5.6 {x10E3/uL} (Normal) Range: 3.4-10.8 86-Qeu-446703:15 METABOLIC PANEL, COMPREHENSIVE Comments: PATIENT NOT FASTINGPERFORMED BY: [facility] CenterBroktn8345 [facility] [id number] (69539) ALT (SGPT) 13 [iU]/L (Normal) Range: 0-32 [...] Glucose, Serum 87 mg/dL (Normal) Range: 65-99 93-Vlo-566856:50 Urinalysis, Office (07480) UA - LEUKOCYTE ESTERASE Trace (Normal) UA - NITRITE Negative (Normal) URINE UROBILINGN TUNDE TIMED Normal mg/dL (Normal) UA - PROTEIN Negative mg/dL (Normal) UA - PH 5 (Abnormal) UA - BLOOD Negative (Normal) UA - SPECIFIC GRAVITY 1.025 (Normal) UA - KETONES Negative mg/dL (Normal) UA - BILIRUBIN Negative (Normal) UA - GLUCOSE Negative (Normal) 63-Wym-570474:15 URINE CESAR CULTURE (TUNDE COL Comments: PATIENT NOT FASTINGPERFORMED BY: [facility] Hoqyin9690 [facility] [id number] COUNT) (76813) Result 1 MUG (Normal) Comments: Mixed urogenital floraGreater than 100,000 colony forming units per mL Urine Culture,Comprehensive Final report (Normal) 57-Mgh-524336:29 URINE CESAR CULTURE-IDENTIFICATN Comments: PATIENT NOT FASTINGPERFORMED BY: [facility] Kahnxd9815 [facility] [id number] Information: [id number] (42981) Result 1 MUG (Normal) Comments: Mixed urogenital flora1,000 Colonies/mL Urine Culture,Comprehensive Final report (Normal) 29-Oqr-519328:29 URINE CESAR CULTURE-TUNDE COL Comments: PATIENT NOT FASTINGPERFORMED BY: [facility] Zulfrc4210 [facility] [id number] Information: SRC:[facility] [id number] COUNT (53515) Result 1 MUG (Normal) Comments: Mixed urogenital flora25,000-50,000 colony forming units per mL Urine Final report (Normal) Culture,Comprehensive 59-Gdw-433580:07 Urinalysis, Office (86440) UA - LEUKOCYTE ESTERASE Small (Normal) UA - NITRITE Negative (Normal) URINE UROBILINGN TUNDE TIMED Normal mg/dL (Normal) UA - PROTEIN Negative mg/dL (Normal) UA - PH 5 (Abnormal) UA - BLOOD Hemolyzed Trace (Normal) UA - SPECIFIC GRAVITY 1.015 (Normal) UA - KETONES Negative mg/dL (Normal) UA - BILIRUBIN Negative (Normal) UA - GLUCOSE Negative (Normal) 7-Psw-556455:02 URINE CESAR CULTURE (TUNDE Comments: PATIENT NOT FASTINGPERFORMED BY: [facility]Min[facility] Szzccj[address] [place] [address] [id number] Information: SRC:UR [id number] COL COUNT) (57302) Result 1 NG36 (Normal) Comments: No growth in 36 - 48 hours. Urine Culture,Comprehensive Final report (Normal) 17-Sep-20149:51 CBC With Differential/Platelet Comments: PATIENT NOT FASTINGPERFORMED BY: [facility]6370 [facility] [id number] Information: [id number] Immature Grans (Abs) 0.0 {x10E3/uL} (Normal) Range: [...] (14) Comments: PATIENT NOT FASTINGPERFORMED BY: LISBETH [facility]6370 [facility] [id number] ALT (SGPT) 11 [iU]/L (Normal) Range: 0-32 [...] (Normal) Range: 65-99 :13 SED RATE ERYTHROCYTE (56256) Comments: PATIENT WAS FASTINGPERFORMED BY: [facility]PeopleP[facility] CenterYilqgb4631 [facility] [id number] Sedimentation Rate-Westergren 6 mm/h (Normal) Range: 0-40 :13 C-REACTIVE PROTEIN (29918) Comments: PATIENT WAS FASTINGPERFORMED BY: [facility]Bright[facility] Qzkzgp1403 [facility] [id number] C-Reactive Protein, Quant 2.2 mg/L (Normal) Range: 0.0-4.9 :13 CBC W/AUTO DIFF WBC Comments: PATIENT WAS FASTINGPERFORMED BY: [employer] [facility]Co[facility] CenterOmciux7246 [facility] [id number] Information: [id number] (38551) Immature Grans (Abs) 0.0 {x10E3/uL} (Normal) Range: [...] 3.77-5.28 WBC 4.6 {x10E3/uL} (Normal) Range: 3.4-10.8 47-Oux-54510:13 TSH (82796) Comments: PATIENT WAS FASTINGPERFORMED BY: [facility]Co[facility] CenterPwvmqz5006 [facility] [id number] TSH 0.584 {uIU/mL} (Normal) Range: 0.450-4.500 84-Qqa-400382:42 Urinalysis, Office (05577) UA - LEUKOCYTE ESTERASE Small (Normal) UA - NITRITE Negative (Normal) URINE UROBILINGN TUNDE TIMED Normal mg/dL (Normal) UA - PROTEIN Negative mg/dL (Normal) UA - PH 6 (Abnormal) UA - BLOOD Negative (Normal) UA - SPECIFIC GRAVITY 1.025 (Normal) UA - KETONES Negative mg/dL (Normal) UA - BILIRUBIN Negative (Normal) UA - GLUCOSE Negative (Normal) 73-Hga-524441:43 URINE CESAR CULTURE (TUNDE Comments: PATIENT NOT FASTINGPERFORMED BY: [facility] Zgqasr8648 [facility] [id number] Information: SRC:ELI [id number] COL COUNT) (44567) Result 1 MUG (Normal) Comments: Mixed urogenital flora25,000-50,000 colony forming units per mL Urine Final report (Normal) Culture,Comprehensive :13 Vitamin D Hydroxy (27392) Comments: PATIENT WAS FASTINGPERFORMED BY: [facility] Khccvc2723 [facility] [id number] Vitamin D, 25-Hydroxy 38.7 ng/mL (Normal) Range: 30.0-100.0 Comments: Vitamin D deficiency has been defined by the [place] ofMedicine and an Endocrine Society practice guideline as alevel of serum 25-OH vitamin D less than 20 ng/mL (1,2).The Endocrine Society went on to further define vitamin Dinsufficiency as a level between 21 and 29 ng/mL (2).1. IOM (Shirley of Medicine). 2010. Dietary reference intakes for calcium and D. [place]: The National Academies Press.2. Seng MF, Theresa NC, Kieran KOWALSKI, et al. Evaluation, treatment, and prevention of vitamin D deficiency: an Endocrine Society clinical practice guideline. JCEM. 2010; 96(7):1911-30. :13 LIPID PANEL (54557) Comments: PATIENT WAS FASTINGPERFORMED BY: [facility] Eldtsm0170 [facility] [id number] LDL/HDL Ratio 1.8 {ratio_units} (Normal) Range: 0.0-3.2 [...] PANEL, COMPREHENSIVE Comments: PATIENT WAS FASTINGPERFORMED BY: internetstoresM[facility] [id number] (29894) ALT (SGPT) 14 [iU]/L (Normal) Range: 0-32 [...] B-12 (CYANOCOBALAMIN) Comments: PATIENT WAS FASTINGPERFORMED BY: internetstoresin [place] [id number] (42259) Vitamin B12 >1999 pg/mL (Abnormal) Range: 211-946 40-Nyc-811925:00 Metabolic Panel, Basic Comments: 6 weeks; PATIENT NOT FASTINGPERFORMED BY: [facility]6370 [facility] [id number] Information: [id number] (57009) Calcium, Serum 9.7 mg/dL (Normal) Range: 8.6-10.2 [...] Glucose, Serum 90 mg/dL (Normal) Range: 65-99 35-Tkc-219115:24 URINE CESAR CULTURE-IDENTIFICATN Comments: PATIENT NOT FASTINGPERFORMED BY: [facility]6370 [facility] [id number] Information: [id number] (40722) Result 1 ENTEGA (Abnormal) Comments: Enterococcus nhlgsovxzh84,000-25,000 colony forming units per mLNote: For enterococci with intrinsic intermediate-level resistance tovancomycin, such as E. casseliflavus and E. gallinarum, VRE infection control measures are not applicable, per the CLSI (formerly NCCLS).For Enterococcus species, cephalosporins, aminoglycosides (except forhigh-level resistance screening), clindamycin, and trimethoprim-curtis lfamethoxazole are not effective clinically. Fluoroquinolones areused primarily for treating urinary tract infections. (CLSI, F660-E49,2009) S = Susceptible; I = Intermediate; R = Resistant * P = Positive; N = Negative MICS are expressed in micrograms per mL Antibiotic RSLT#1 RSLT#2 RSLT#3 RSLT#4Ciprofloxacin SGentami lien 500 SLevofloxacin SNitrofurantoin IPenicillin SStreptomycin 2000 STetracycline SVancomycin R Urine Final report (Abnormal) Culture,Comprehensive 37-Dbq-791503:51 METABOLIC PANEL, Comments: PATIENT NOT FASTINGPERFORMED BY: LISBETH BalaBit [address] [facility] [id number] Information: [id number] [facility] (04745) ALT (SGPT) 20 [iU]/L (Normal) Range: 0-32 [...] Glucose, Serum 80 mg/dL (Normal) Range: 65-99 54-Vge-933524:04 Microscopic Examination Comments: PATIENT NOT FASTINGPERFORMED BY: Ogorod RoadDublin [place] [id number] Bacteria Few (Normal) Mucus Threads Present (Normal) Epithelial Cells (non renal) 0-10 {/hpf} (Normal) Range: 0 - 10 RBC None seen {/hpf} (Normal) Range: 0 - 2 WBC None seen {/hpf} (Normal) Range: 0 - 5 30-Ssq-646312:04 URINE CESAR CULTURE (TUNDE COL Comments: PATIENT NOT FASTINGPERFORMED BY: [facility]6370 [facility] [id number] COUNT) (46556) Antimicrobial MIHEAD (Normal) Comments: S = Susceptible; [...] mL (Abnormal) Urine Final report Culture,Comprehensive (Abnormal) 82-Bkx-936733:04 URINALYSIS, W/ MICRO Comments: PATIENT NOT FASTINGPERFORMED BY: [facility]6370 [facility] [id number] Information: SRC:UR [id number] (93099) Microscopic Examination See below: (Normal) Comments: Microscopic was indicated and was performed. Microscopic Examination MICRON (Normal) Comments: Microscopic follows if indicated. Nitrite, Urine Negative (Normal) Bilirubin Negative (Normal) Urobilinogen,Semi-Qn 0.2 mg/dL (Normal) Range: 0.0-1.9 Ketones Negative (Normal) Occult Blood Negative (Normal) Glucose Negative (Normal) Protein Negative (Normal) WBC Esterase Negative (Normal) Appearance Clear (Normal) Urine-Color Yellow (Normal) pH 6.0 (Normal) Range: 5.0-7.5 Specific [place] 1.010 (Normal) Range: 1.005-1.030 62-Hau-842535:00 METABOLIC PANEL, Comments: PATIENT NOT FASTINGPERFORMED BY: LISBETH [facility] Zbvwpr7813 [facility] [id number] Information: [id number] [facility] (14849) ALT (SGPT) 11 [iU]/L (Normal) Range: 0-32 [...] Glucose, Serum 84 mg/dL (Normal) Range: 65-99 12-Qfb-75483:26 CMP Comments: will review at 11/05 appt [...] CHOL 200 mg/dL (Normal) Comments: <200 mg/dL Zputpsxtj332-120 mg/dL Borderline>240 mg/dL High Risk :26 TSH 1.85 {uIU/mL} (Normal) Range: 0.358-3.74 :26 VITD 72.9 mg/mL (Normal) Comments: will review at - appt Comments: Vitamin D 25(OH) Status RangeDeficiency <20 ng/mL (50nmol/L)Insuffciency 20 - 30 ng/mL (50 - 75 nmol/L)Sufficiency 30 - 100 ng/mL (75 - 250 nmol/L)Toxicity >100 ng/mL (>250 nmol/L) 9-Pic-534452:05 Urinalysis, Office (27655) UA - LEUKOCYTE ESTERASE Negative (Normal) UA - NITRITE Negative (Normal) URINE UROBILINGN TUNDE TIMED 2 mg/dL (Normal) UA - PROTEIN 30 mg/dL (Normal) UA - PH 6.0 (Normal) Comments: 5.5 UA - BLOOD Negative (Normal) UA - SPECIFIC GRAVITY 1.030 (Abnormal) UA - KETONES Small mg/dL (Normal) UA - BILIRUBIN Negative (Normal) UA - GLUCOSE Negative (Normal) 0-Ncd-464963:33 URINE CESAR CULTURE-TUNDE COL Comments: PERFORMED BY: [email or web address] Fclbxj7545 [facility] [id number] COUNT (37645) Result 1 MUG (Normal) Comments: Mixed urogenital flora10,000-25,000 colony forming units per mL Urine Final report (Normal) Culture,Comprehensive 28-Buc-193457:52 URINE CESAR CULTURE-TUNDE COL Comments: PATIENT NOT FASTINGPERFORMED BY: [facility] PublicBeta [facility] [id number] Information: SRC:UR [id number] COUNT (02705) Antimicrobial MIHEAD (Normal) Comments: S = Susceptible; [...] CHOL 203 mg/dL (Abnormal) Comments: <200 mg/dL Ircagkbtq338-935 mg/dL Borderline>240 mg/dL High Risk :47 TSH 1.52 {uIU/mL} (Normal) Range: 0.358-3.74 :47 VITD 59.3 mg/mL (Normal) Comments: Vitamin D 25(OH) Status RangeDeficiency <20 ng/mL (50nmol/L)Insuffciency 20 - 30 ng/mL (50 - 75 nmol/L)Sufficiency 30 - 100 ng/mL (75 - 250 nmol/L)Toxicity >100 ng/mL (>250 nmol/L) :44 CBC, PLATELETS & AUT DIFF Comments: PATIENT NOT FASTINGPERFORMED BY: LISBETH [facility] Jymlyz3012 Hazel CarrenoAffinity Health Partners [id number] Information: [id number] (28427) Immature Grans (Abs) 0.0 {x10E3/uL} (Normal) Range: [...] 3.77-5.28 WBC 6.4 {x10E3/uL} (Normal) Range: 3.4-10.8 8-Vjn-468500:44 FOLIC ACID SERUM (92767) Comments: PATIENT NOT FASTINGPERFORMED BY: [facility]6370 [facility] [id number] Folate (Folic Acid), Serum 14.4 ng/mL (Normal) Comments: A serum folate concentration of less than 3.1 ng/mL isconsidered to represent clinical deficiency. :44 RETICULOCYTE COUNT MANUL Comments: PATIENT NOT FASTINGPERFORMED BY: [place] 9498270 [facility] [id number] (96715) Reticulocyte Count 1.1 % (Normal) Range: 0.6-2.6 :44 LDH (LD) (LACTATE DEHYDROGENASE) Comments: PATIENT NOT FASTINGPERFORMED BY: [place] 9498270 [facility] [id number] (74703) LDH 250 [iU]/L (Abnormal) Range: 0-214 :44 IRON BINDING CAPACITY (TIBC) Comments: PATIENT NOT FASTINGPERFORMED BY: [facility]6370 [facility] [id number] (98407) Iron Saturation 16 % (Normal) Range: 15-55 Iron, Serum 52 ug/dL (Normal) Range: 35-155 UIBC 270 ug/dL (Normal) Range: 150-375 Iron Bind.Cap.(TIBC) 322 ug/dL (Normal) Range: 250-450 :44 FERRITIN (63473) Comments: PATIENT NOT FASTINGPERFORMED BY: [facility]6370 [facility] [id number] Ferritin, Serum 42 ng/mL (Normal) Range: 15-150 [...] 4.2-5.4 WBC 5.5 K/mm3 (Normal) Range: 4.4-11.0 58-Cib-76270:23 CMP GAP 8 (Normal) Range: 5-15 CO2 [...] :50 TSH 1.02 {uIU/mL} (Normal) Range: 0.358-3.74 14-Anx-220770:02 BILAT SCRN DIGITAL & CAD Radiology Report [...] Rowe M.D.July 23, 2012 at 2:35:49 PM [id number] Signed GP/GP If you are the referring physicia n and would like to consult with theradiologist who provided this interpretation, please contact Ofelia Rodriguez at [phone]. If this radiologist is unavailable, youwill be directed to [facility] radiologist to assist. If you are a patient with a question regarding this report, pleasecontactyour referring physician directly. Professional Interpretation Provided By: [employer], Phone , These documents contain legally protected [...] 3 1439 Sign by: Dashawn Rowe MD 0-Pct-223469:59 KIDNEY Radiology Report See Note (Normal) Comments: [...] vascular or or islands of parapelvicfat. Signed:Brittney Welhs M.D.July 11, 2012 at 5:00:06 PM [id number] Signed TT/TT If you are the referring physician and would like to consult with theradiologist who provided this interpretation, please contact Brittney Mccormack M.D. at [phone]. If this radiologist is unavailable, youwillbe directed to another radiologist to assist. If you are a patient with a question regarding this report, pleasecontactyour referring physician directly. Professional Interpretat ion Provided By: [employer], Phone , These documents contain legally protected [...] on 07/11/121825 Sign by: Brittney Welsh MD 1-Udm-283347:59 TRANSVAGINAL NON- Radiology Report See Note (Normal) [...] Welsh M.D.July 11, 2012 at 4:45:28 PM [id number] Signed TT/TT If you are the referring physician and would like to consult with sebastian diologjudi who provided this interpretation, please contact Brittney Mccormack M.D. at [phone]. If this radiologist is unavailable, youwillbe directed to another radiologist to assist. If you are a p atient with a question regarding this report, pleasecontactyour referring physician directly. Professional Interpretation Provided By: [employer], Phone , These documents contain legally protected [...] CHOL 210 mg/dL (Abnormal) Comments: <200 mg/dL Zpswgvrhh664-122 mg/dL Borderline>240 mg/dL High Risk :44 MG 1.8 mg/dL (Normal) Range: 1.8-2.4 :44 SED tSEDRATE 18 mm/h (Normal) Range: 0-30 :44 TSH 8.94 {uIU/mL} (Abnormal) Range: 0.358-3.74 :44 VITD 90.8 ng/mL (Normal) Comments: Vitamin D 25(OH) Status RangeDeficiency <20 ng/mL (50nmol/L)Insufficiency 20 - 30 ng/mL (50 - 75 nmol/L)Sufficiency 30 - 100 ng/mL (75 - 250 nm ol/L)Toxicity >100 ng/mL (250 nmol/L)Effective 201204-Jul-201240-Umt-014253:29 ABDOMEN/PELVIS WITH CONTRAST Radiology Report See Note [...] to well characterize low-attenuation left renal lesion,probably chemical sales representative of a cyst. Consider follow-up renal sonographyforfurther evaluation as clinically warranted. Signed:Matilda AvilesJuly 04, 2012 at 5:12:21 PM [id number] Signed DL/DL If you are the referring physician and would like to consult with theradiologist who provided this interpretation, please contact Ofelia Kyle at [phone]. If this radiologist is unavailable, youwillbe directed to another radiologist to assist. If you are a patient with a question regarding this report, pleasecontactyo ur referring physician directly. Professional Interpretation Provided By: [employer], Phone , These documents contain legally protected [...] on 07/04/121714 Sign by: Salinas Champion MD 42-Cmf-454913:18 CRE GFRAA 41 mL/min (Abnormal) GFR 34 mL/min (Abnormal) CREAT 1.6 mg/dL (Abnormal) Range: 0.6-1.0 87-Hzs-411781:15 BMP GAP 7 (Normal) Range: 5-15 CO2 [...] 7-18 GLU 80 mg/dL (Normal) Range: 70-110 32-Zgs-091896:15 TSH 3.05 {uIU/mL} (Normal) Range: 0.358-3.74 :22 B12 577 pg/mL (Normal) Range: 211-946 Comments: Performed at: [facility] Lab[address] [id number] Director: Patito Segovia MD, Phone: [phone] :[phone] CBCMD RBCM NORM C+C {NORMAL} (Normal) [...] D deficiency has been defined by the [place] ofMedicine and an Endocrine Society practice guideline as alevel of serum 25-OH vitamin D less than 20 ng/mL (1,2).The Endocrine Society went on to further define vitamin Dinsufficiency as a level between 21 and 29 ng/mL (2).1. IOM (Shirley of Medicine). 2010. Dietary reference intakes for calcium and D. [place]: The National Academies Press.2. Seng MF, Theresa [place], Kieran KOWALSKI, et al. Evaluation, treatment, and prevention of vitamin D deficiency: an Endocrine Society clinical practice guideline. JCEM. 2010; 96(7):1911-30. 91-Xmp-817313:37 BREAST UNILATERAL Radiology Report See Note (Normal) [...] Category 3: Probably Benign Finding - Initial Hduov-CihpzhrvVsrflt-nk Suggested. Signed:Dashawn Rowe M.D.November 09, 2011 at 2:49:17 PM [id number] Signed GP/GP If you are the referring physician and would like to consult with theradiologist who provided this interpretation, please contact Herb blake M.D. at [phone]. If this radiologist is unavailable, youwill be directed to another radiologist to assist. If you are a patient with a question regarding this report, pleasecontactyour referri ng physician directly. Professional Interpretation Provided By: [employer], Phone , These documents contain legally protected [...] 11/09/11 1456 Sign by: Dashawn Rowe MD 74-Slx-019668:47 BREAST UNILATERAL Radiology Report See Note (Normal) [...] Category 3: Probably Benign Finding - Initial Javti-LcuqchirWyjahr-wl Suggested. To consult with a radiologist regarding this report, please call our 64T1kepvmzj line @ Dictated on 06/22/11 1428 by Jennifer Rowe MDranscribed on 06/22/11 1547 by ITS IMPORTSign by Dashawn Rowe MD on 06/22/11 1548 Sign by: ___ Dashawn Rowe MD 91-Cno-910027:47 UNILAT LT DIAG DIGITAL & CAD Radiology [...] radiologist regarding this report, please call our 79E2hukcxvb line @ Dictated on 06/22/11 1357 by Soledad CARRANZA,Yariscribed on 1450 by ITS IMPORTSign by Dashawn Rowe MD on 06/22/11 1451 Sign by: Dashawn Rowe MD 4-Yzp-110706:14 CERV SPINE,MIN 4 VIEWS Radiology Report See [...] radiologist regarding this report, please call our 88J7ovvrqmd line @ Dictated on 04/13/11 1408 by [...] or = 500 mg/dL :38 VIT D,25 96456 47.8 ng/mL (Normal) Range: 30.0-100.0 Comments: Vitamin D deficiency has been defined by the [place] ofMedicine and an Endocrine Society practice guideline as alevel of serum 25-OH vitamin D less than 20 ng/mL (1,2).The Endocrine Society went on to further define vitamin Dinsufficiency as a level between 21 and 29 ng/mL (2).1. IOM (Shirley of Medicine). 2011. Dietary reference intakes for calcium and D. [place]: The National Academies Press.2. Seng MF, Theresa ROMERO, Kieran KOWALSKI, et al. Evaluation, treatment, and prevention of vitamin D deficiency: an Endocrine Society clinical practice guideline. JCEM. 2010; 96(): 1911-30.Performed at: [facility]6[address] [place], [place] [id number] Director: Patito Segovia MD, Phone: [phone] 41-Bha-58893:38 VITAMIN B12 781 pg/mL (Normal) Range: 254-1320 Comments: There is a low frequency possibility that high titers ofintrinsic blocking antibodies may not be completely inactivated during the reaction pretreatment stepof this testing method. If test results are i n conflictwith the clinical diagnosis, patient should be testedfor the presence of intrinsic factor blocking antibodies. 69-Huf-488547:29 DEXA BONE DENSITY STUDY () Comments: appt [...] on 02/02/11842 Sign by: Dashawn Rowe MD 05-Ysp-242106:03 Thin prep Pap Comments: Source.............Cervical;EndocervicalNo. of containers..01 CYTYC Thin Prep VialPERFORMED BY: Lab[address] [id number] Information: [id number] ([id number]) Note: PAPSMR (Normal) Comments: The Pap smear [...] present.V72.31 ; Routine gynecolog ical exambrennan Aguila Pump Servicer (ASCP) 19-Mot-314218:01 BILAT SCRN DIGITAL & CAD Radiology Report [...] 11/10/10 1453 Sign by: Dashawn Rowe MD 58-Ref-394954:16 COMP METABOLIC Comments: appt 11/05/10 GAP 10 [...] 7-18 GLU 79 mg/dL (Normal) Range: 70-110 71-Egt-993683:16 LIPID VLDL 24 mg/dL (Normal) Range: 5-40 [...] 200-240 mg/dL Borderline >240 mg/dL High Risk 94-Bqi-052169:16 TSH 0.99 {uIU/mL} (Normal) Range: 0.358-3.74 :16 VIT D,25 91867 45.6 ng/mL (Normal) Range: 32.0-100.0 Comments: Recent studies consider the lower limit of 32.0 ng/mL to zoraida threshold for optimal health.Everardo HEREDIA. J Nutr. 2004;135(2):317-22.Performed at: [facility] [place] [address] Director: Patito Segovia MD, Phone: [phone] 67-Vgv-959018:16 VITAMIN B12 582 pg/mL (Normal) Range: 254-1320 Comments: There is a low frequency possibility that high titers ofintrinsic blocking antibodies may not be completely inactivated during the reaction pretreatment stepof this testing method. If test results are i n conflictwith the clinical diagnosis, patient should be testedfor the presence of intrinsic factor blocking antibodies. 23-Qfz-976546:20 CBCD,SMEAR DIFF PLT EST SeeNote (Normal) Comments: [...] 4.2-5.4 WBC 5.4 K/mm3 (Normal) Range: 4.4-11.0 99-Mha-135151:20 COMP METABOLIC GAP 9 (Normal) Range: 5-15 [...] {uIU/mL} (Normal) Range: 0.358-3.74 :20 VIT D,25 25514 43.2 ng/mL (Normal) Range: 32.0-100.0 Comments: Recent studies consider the lower limit of 32.0 ng/mL to zoraida threshold for optimal health.Everardo HEREDIA. J Nutr. 2004;135(2):317-22.Performed at: [place] [address]Lab Director: Patito Segovia MD, Phone: [phone] 47-Apu-259954:20 VITAMIN B12 516 pg/mL (Normal) Range: 254-1320 Comments: There is a low frequency possibility that high titers ofintrinsic blocking antibodies may not be completely inactivated during the reaction pretreatment stepof this testing method. If test results are i n conflictwith the clinical diagnosis, patient should be testedfor the presence of intrinsic factor blocking antibodies. :44 VIT D,25 84889 38.6 ng/mL (Normal) Range: 32.0-100.0 Comments: Recent studies consider the lower limit of 32.0 ng/mL to zoraida threshold for optimal health.Everardo HEREDIA. J Nutr. 2004;135(2):317-22.Performed at: - [facility] [id number]Lab Director: Patito Segovia MD, Phone: [phone] :[phone] VITAMIN B12 398 pg/mL (Normal) Range: [...] intrinsic factor blocking antibodies. :24 VITD 1,25 83859 57.3 pg/mL (Normal) Range: 10.0-75.0 Comments: Performed at: - [facility] [id number] Director: Roderick Ramirez MD, Phone: [phone] 48-Fwi-582856:26 CBCD,SMEAR DIFF RED CELL MORPH SeeNote {NORMAL} [...] 4.2-5.4 WBC 7.1 K/mm3 (Normal) Range: 4.4-11.0 63-Txh-512232: VITAMIN B12 1203 pg/mL (Normal) Range: 254-1320 26 Comments: There is a low frequency possibility that high titers ofintrinsic blocking antibodies may not be completelyinactivated during the reaction pretreatment stepof this testing method. If test results are in conflictwith the clinical diagnosis, patient should be testedfor the presence of intrinsic factor blocking antibodies. 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 No definite P1 segment connectingthe artery to the basilar artery is identified. IMPRESSION:No demonstrated aneurysm. Anatomic variations of the [place]. 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 The rightinternal carotid arteries supplies the left [place] territory, and islarger than the left internal carotid. 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 Reported By: DOMENICA MCGARRY M.D. 83-Okn-185469:41 BRAIN W/WO CONTRAST Radiology See Note Comments: Exam Number: [id number] CLINICAL: MRI BRAIN WITHOUT AND WITH CONTRAST [...] pineal gland. Normal basal cisterns. Normal midbrain, franchesak and medulla. Normal cerebellum. Normal bilateral temporal [...] mild degenerative remodeling of the mandibular condyles.ADDENDUM: [id number] MRI/BRWW CLINICAL: MRI BRAIN WITHOUT AND WITH [...] 1 0 1 3 : 3 3 51-Rhb-237274:33 SERUM CRE & GFR CREAT,SERUM 1.2 mg/dL (Abnormal) Range: 0.6-1.0 EST GFR 48 mL/min (Abnormal) EST GFR - AA 58 mL/min (Abnormal) :35 LIPID CHOL 188 mg/dL (Normal) Comments: <200 mg/dL Yowvogszl738-100 mg/dL Borderline>240 mg/dL High Risk HDL 54 [...] Range: 0.358-3.74 5 (Normal) :3 VIT D,25 43518 29.3 ng/mL (Abnormal) Range: 32.0-100.0 5 Comments: Recent studies consider the lower limit of 32.0 ng/mL to zoraida threshold for optimal health.Everardo HEREDIA. J Nutr. 2004;135(2):317-22.Performed at: [place] [address] Director: Patito Segovia MD, Phone: [phone] :[phone] VITAMIN B12 158 pg/mL (Abnormal) Range: [...] Report See Note (Normal) Comments: Exam Number: [id number] CLINICAL:Right upper quadrant pain CT ABDOMEN WITH [...] parapelvic renal cysts. Reported By: PRADIP FRANCO 49-Zjv-603312:29 BMP BUN 16 mg/dL (Normal) Range: 7-18 [...] mg/dL (Normal) Range: 70-110 :37 VIT D,25 30137 26.3 ng/mL (Abnormal) Range: 32.0-100.0 Comments: Recent studies consider the lower limit of 32.0 ng/mL to zoraida threshold for optimal health.Everardo HEREDIA. J Nutr. 2004;135(2):317-22.Performed at: [address] [id number] Director: Ade Rubio MD 46-Ipf-684622:36 GALLBLADDER (HP) Radiology Report See Note (Normal) Comments: Exam Number: [id number] LIMITED ABDOMINAL ULTRASOUND FOR GALLBLADDER HISTORYChest pain. [...] appearance is indeterminate on the ultrasound examin [facility]. Forfurther evaluation of this finding, CT is [...] kidneyis suggested. Reported By: DOMENICA GATES M.D. 6-Sjm-122208:21 Lipase (43401) Comments: PATIENT NOT FASTINGPERFORMED BY: [email or web address] Isjcul3471 [facility] [id number] Lipase, Serum 42 U/L (Normal) Range: 0-59 :21 Amylase (46695) Comments: PATIENT NOT FASTINGPERFORMED BY: [email or web address] Fogwxn6451 [facility] [id number] Amylase, Serum 54 U/L (Normal) Range: 31-124 9-Yma-393327:21 CBC WITH MANUAL DIFF Comments: PATIENT NOT FASTINGPERFORMED BY: [email or web address] Huieog5991 [address]iva StockpulseAt[facility] Health [facility] City [id number] Information: [id number] (28065) Baso (Absolute) 0.1 {x10E3/uL} (Normal) Range: 0.0-0.2 [...] 3.80-5.10 WBC 5.9 {x10E3/uL} (Normal) Range: 4.0-10.5 3-Cdr-828064:21 METABOLIC PANEL, COMPREHENSIVE Comments: PATIENT NOT FASTINGPERFORMED BY: [facility]CoP[facility] CenterPfyyth9268 [facility] [id number] (57365) ALT (SGPT) 15 [iU]/L (Normal) Range: 0-40 [...] Comments: DR DAVIS ORDERED CMP,CBCMD,CAROL,RF,TSH,CRP,SED,CCP,LIPIDDR VELLANKIORDEREDCMP,CBCD,CRP,SED,VITD,CCP,HEPBSAB,HEPBSAG,HEPC,CAROL,RF,HEPBCORE IGM,UA [id number] CAROL-DIRECT SeeNote (Normal) Comments: Result: Negative :48 ANTI-CCP 885958 4 {units} (Normal) Comments: DR DAVIS ORDERED [...] 47-70 WBC 5.8 K/mm3 (Normal) Range: 4.4-11.0 80-Rpl-22750:48 COMP Comments: DR DAVIS ORDERED CMP,CBCMD,CAROL,RF,TSH,CRP,SED,CCP,LIPIDDR NIKKIORDEREDCMP,CBCD,CRP,SED,VITD,CCP,HEPBSAB,HEPBSAG,HEPC,CAROL,RF,HEPBCORE [...] WBC 0 SEEN {/hpf} (Normal) Range: 0-5 45-Zmo-22727:48 ESR Comments: DR DAVIS ORDERED CMP,CBCMD,CAROL,RF,TSH,CRP,SED,CCP,LIPIDDR VELLANKIORDEREDCMP,CBCD,CRP,SED,VITD,CCP,HEPBSAB,HEPBSAG,HEPC,CAROL,RF,HEPBCORE IGM,UA SED RATE 15 mm/h (Normal) Range: 0-30 :48 HB CORE [id number] SeeNote (Normal) Comments: DR DAVIS ORDERED CMP,CBCMD,CAROL,RF,TSH,CRP,SED,CCP,LIPIDDR VELLANKIORDEREDCMP,CBCD,CRP,SED,VITD,CCP,HEPBSAB,HEPBSAG,HEPC,CAROL,RF,HEPBCORE IGM,UA Comments: Result: Negative Performed At: [facility] Wrdjnh[address] [place], [place] [id number] At: [facility] [address] [phone] :48 HBsAg Comments: DR DAVIS ORDERED CMP,CBCMD,CAROL,RF,TSH,CRP,SED,CCP,LIPIDDR [...] of antibody present. :48 HEP C AB 353685 0.1 (Normal) Comments: DR DAVIS ORDERED CMP,CBCMD,CAROL,RF,TSH,CRP,SED,CCP,LIPIDDR [...] DAVIS ORDERED CMP,CBCMD,CAROL,RF,TSH,CRP,SED,CCP,LIPIDDR VELLANKIORDEREDCMP,CBCD,CRP,SED,VITD,CCP,HEPBSAB,HEPBSAG,HEPC,CAROL,RF,HEPBCORE IGM,UA Range: 0.358-3.74 45-Lss-17360:48 VIT D,25 99428 18.0 ng/mL (Abnormal) Comments: DR DAVIS ORDERED CMP,CBCMD,CAROL,RF,TSH,CRP,SED,CCP,LIPIDDR VELLANKIORDEREDCMP,CBCD,CRP,SED,VITD,CCP,HEPBSAB,HEPBSAG,HEPC,CAROL,RF,HEPBCORE IGM,UA Range: 32.0-100.0 Comments: Recent studies consider the lower limit of 32.0 ng/mL to zoraida threshold for optimal health.Mcgee BW. J Nutr. 2004;135(2):317-22. 0-Ekk-762100:10 BILAT SCRN DIGITAL & CAD Radiology Report See Note (Normal) Comments: Exam Number: [id number] MAMMOGRAM, BILATERAL SCREENING DIGITAL AND CAD HISTORYRoutine [...] (MQSA). The mammograms werealso examined with c CrossReaderuter-aided detection software (Invivodata, GetGlue, Findery.). Reported By: DOMENICA GATES M.D. 9-Gbt-956213:09 SPINE,LUMBAR (ROUTINE) Radiology Report See Note (Normal) Comments: Exam Number: [id number] CLINICAL:68-year-old female with low back pain for [...] Report See Note (Normal) Comments: Exam Number: [id number] CLINICAL DATALow back pain, flank pain, right [...] disc disea se involving multiple levels from E8gpdfscw S1. There is degenerative hypertrophic change of multiplefacet joints from L2 through S1. There are no fractures orsubluxations. IMPRESSIONModerate rotatory scoliosis of middle lumbar spine with convexityto the left side. Degenerative disc disease at multiple levels fromL2 through S1. Degenerative hypertrophic changes of multiple facetjoints from L2 through S1. Reported By: HEATHER JACKSON 3-Scz-616065:27 DORSAL SPINE,3 VIEWS Radiology Report See Note (Normal) Comments: Exam Number: [id number] DORSAL SPINE Three images of the dorsal [...] middle dorsal spine. Reported By: HEATHER JACKSON 3-Weg-953234:22 Urine Culture,Comprehensive Comments: Clinical Information: SRC:UR PERFORMED BY: [facility] [id number] Result 1 NG36 (Normal) Comments: No growth in 36 - 48 hours. Urine Culture,Comprehensive Final report (Normal) 4-Mss-179238:18 PELVIS WITHOUT IV CONTRAST Radiology Report See Note (Normal) Comments: Exam Number: [id number] CT SCANS OF ABDOMEN AND PELVIS HISTORYThe [...] the spine. Reported By: DOMENICA GATES M.D. 9-Fnn-688528:17 ABDOMEN WITHOUT IV CONTRAST Radiology Report See Note (Normal) Comments: Exam Number: [id number] CT SCANS OF ABDOMEN AND PELVIS HISTORYThe [...] the spine. Reported By: DOMENICA GATES M.D. 6-Ndn-594905:1 C-REACTIVE PROT 4.05 mg/L (Abnormal) Range: 0.0-3.0 0 Comments: C-Reactive Protein (CRP) provides useful information for thediagnosis, therapy and monitoring of inflammatory processesand associated diseases. For the evaluation of Relative Riskfor Cardiovascular Dise ase, a High Sensitivity CRP (HSCRP)should be ordered. 9-Pix-591518:10 CBCD,SMEAR DIFF ATYPICAL LYMPH 1+ % (Normal) [...] 6.4-8.2 GLU 84 mg/dL (Normal) Range: 70-110 1-Ozn-816448:10 ESR SED RATE 14 mm/h (Normal) Range: 0-30 4-Hpq-296867:40 Urinalysis, Office (04805) UA - BILIRUBIN Negative (Normal) UA - BLOOD Non Hemolyzed Trace (Normal) UA - GLUCOSE Negative (Normal) UA - KETONES Negative mg/dL (Normal) UA - LEUKOCYTE ESTERASE Negative (Normal) Comments: aw UA - NITRITE Negative (Normal) UA - PH 6.0 (Normal) UA - PROTEIN Negative mg/dL (Normal) UA - SPECIFIC GRAVITY 1.010 (Normal) URINE UROBILINGN TUNDE TIMED Normal mg/dL (Normal) 4-Sxv-822253:28 URINE CESAR CULTURE-TUNDE COL Comments: PATIENT NOT FASTINGClinical Information: SRC:UR ADD [id number] PERFORMED BY: LISBETH [facility] Ng[address] [place] [place] [id number] COUNT (05953) Result 1 MUG (Normal) Comments: Mixed urogenital flora10,000-25,000 colony forming units per mL Urine Final report (Normal) Culture,Comprehensive 3-Mhc-115228:09 Urinalysis, Office (96155) UA - BILIRUBIN Negative (Normal) UA - [...] mg/dL VLDL 16 mg/dL (Normal) Range: 5-40 9-Jip-471128:59 LQD PAP [id number] Comments: CYTOLOGY INFORMATION:- CLINICAL INFORMATION: POSTMENOPAUSAL- DATE LMP/MENOPAUSE: MENOPAUSE- COLLECTION VIAL: Thin Prep Vial- CLIENT APPLICATION SUPPORT SPECIALIST SOURCE: CERVICAL/ENDOCERVICAL- COLLECTION TECHNIQUE: BRUSH/SPATULA ADEQ Comment (Normal) Comments: Satisfactory for evaluation. Endocervical and/or squamous metaplasticcells (endocervical component) are present. COMM . (Normal) DIAGN Comment (Normal) Comments: NEGATIVE FOR INTRAEPITHELIAL LESION AND MALIGNANCY. HPV RFLX Comment (Normal) Comments: The HPV DNA reflex criteria were not met with this specimenresult therefore, no HPV testing was performed. .Performed At: [address] [id number] [facility] Comment (Normal) Comments: The Pap smear is a screening test designed to aid in thedetection of premalignant and malignant conditions of theuterine cervix. It is not a diagnostic procedure andshould not be used as the sole means of detecting cervicalcancer. Both false-positive and false-negative reports dooccur. . PERFORM Comment (Normal) Comments: Diandra Bee, Pump Servicer (ASC) 39-Goi-239079:36 DEXA BONE DENSITY STUDY () Radiology Report See Note (Normal) Comments: Exam Number: [id number] BONE DENSITOMETRY TECHNIQUE Bone densitometry of the [...] within normallimits. Reported By: DOMENICA GATES M.D. 81-Xke-76716:55 COMP METABOLIC A/G 1.3 {RATIO} (Normal) Range: [...] T PROT 7.1 g/dL (Normal) Range: 6.4-8.2 54-Lmw-22900:55 TSH 2.13 {uIU/mL} (Normal) Range: 0.34-4.82 84-Iik-448894:12 C-REACTIVE PROT 5.51 mg/L (Normal) Range: 0.0-6.0 Comments: Test performed using the Dimension C-Reactive ProteinExtended Range assay method. This assay meets the AHA/CDC 2003 recommendations fordetermining patients at high risk for cardiovasculardisease. Reference: High risk CRP >3.0 mg/L 80-Ayq-032133:12 CBCD,SMEAR DIFF BAND 1 % (Normal) Range: [...] (Abnormal) Range: 6.4-8.2 :12 FUNEZ A AB [id number] FUNEZ A TYPE 10 <1:8 (Normal) FUNEZ [...] and its performancecharacteristics have been determined by [employer]. Performance characteristics refer tothe analytical performance of the test. FUNEZ A TYPE 2 <1:8 (Normal) FUNEZ A TYPE 4 <1:8 (Normal) FUNEZ A TYPE 7 <1:8 (Normal) FUNEZ A TYPE 9 <1:8 (Normal) 42-Lqr-166008:12 ESR SED RATE 14 mm/h (Normal) Range: 0-30 21-Cau-268142:12 RA LATEX 6502 7.1 {IU/mL} (Normal) Range: 0.0-13.9 Comments: Performed At: [employer] [place], [place] [id number] At: [facility] Gaddfv[address] [place], [place] [id number] 43-Tcb-356083:12 TSH 0.16 {uIU/mL} (Abnormal) Range: 0.34-4.82 71-Zxe-584872:21 PELVIS WITH CONTRAST Radiology Report See Note (Normal) Comments: Exam Number: [id number] CT ABDOMEN AND PELVIS WITH CONTRAST. CLINICAL [...] pericardial effusion. Reported By: TODD KENNEDY M.D. 44-Nhz-216245:11 ABDOMEN WITH CONTRAST Radiology Report See Note (Normal) Comments: Exam Number: [id number] CT ABDOMEN AND PELVIS WITH CONTRAST. CLINICAL [...] pericardial effusion. Reported By: TODD KENNEDY M.D. 52-Zgj-762141:38 MARCUS 45 U/L (Normal) Range: 25-115 74-Kzc-184410:38 CBCD,SMEAR DIFF BAND 1 % (Normal) Range: [...] 47-70 WBC 5.9 K/mm3 (Normal) Range: 4.4-11.0 93-Ghg-436106:38 LIPASE 190 U/L (Normal) Range: 114-286 82-Fgx-805166:45 BILAT SCRN DIGITAL & CAD Radiology Report See Note (Normal) Comments: Exam Number: [id number] MAMMOGRAM, BILATERAL SCREENING DIGITAL AND CAD HISTORYRoutine [...] werealso exam ined with computer-aided detection software (ImageLearneroo, GetGlue, Inc.). Reported By: DOMENICA GATES M.D. :33 CHEST W/WO CONTRAST Radiology Report See Note (Normal) Comments: Exam Number: [id number] CT SCAN OF CHEST HISTORYLung nodule. Consecutive [...] T PROT 6.6 g/dL (Normal) Range: 6.4-8.2 92-Hac-87980:07 COMPLETE UA BACTERIA RARE {/hpf} (Normal) BILIRUBIN [...] itching : [facility] Indication: Vaginal itching Low Back Pain (Renamed [...] Indication: Chest pain Chest pain : Reviewed Mechanism Assembler Letter Indication: Chest pain Osteoarthritis, unspecified osteoarthritis [...] Indication: Hypercholesterolemia Planned Observations ANGTENSIN 1-CONVRT ENZYM (13578)Indication: Arthralgia On: :34 Request CCP ANTIBODY (44957)Indication: Arthralgia On: :34 Request CAROL (ANTINUCLEAR ANTIBODY) (78164)Indication: Arthralgia On: 34 Request RHEUMATOID FACTOR-QUANT (32164)Indication: Arthralgia On: 34 Request SED RATE ERYTHROCYTE (82534)Indication: Arthralgia On: 34 Request C-REACTIVE PROTEIN (43001)Indication: Arthralgia On: :34 Request CBC, PLATELETS & AUT DIFF (64754)Indication: Other vitamin B12 deficiency anemia On: :29 Request VITAMIN B-12 (CYANOCOBALAMIN) (11642)Indication: Other vitamin B12 deficiency anemia On: :29 Request CBC W/AUTO DIFF WBC (28238)Indication: Prolonged QT interval On: 9-Jum-101563:18 Request METABOLIC PANEL, COMPREHENSIVE (12945)Indication: Prolonged QT interval On: 4-Zst-550306:18 Request VITAMIN B-12 (CYANOCOBALAMIN) (85758)Indication: DEFICIENCY, B-COMPLEX NEC On: 8-Dhb-062007:18 Request TSH (87961)Indication: Acquired hypothyroidism On: :17 Request LIPOPROTEIN, BLD, BY NMR (86993)Indication: Hypercholesterolemia On: :17 Request VITAMIN B-12 (CYANOCOBALAMIN) (10897)Indication: DEFICIENCY, B-COMPLEX NEC On: :18 Request LIPID PANEL (70776)Indication: Hypercholesterolemia On: :18 Request CBC W/AUTO DIFF WBC (90396)Indication: Right flank pain On: :17 Request METABOLIC PANEL, COMPREHENSIVE (42940)Indication: Right flank pain On: :17 Request Vitamin D Hydroxy (57598)Indication: Vitamin D deficiency, unspecified On: :17 Request Urinalysis, Office (24609)Indication: Urinary frequency On: 06-Itr-051299:22 Request VITAMIN B-12 (CYANOCOBALAMIN) (25977)Indication: Other vitamin B12 deficiency anemia On: :28 Request Comments: Lot:[id number]:04/29Dose:1mlRoute:IMSite:r arm Given By:TAVON signed Vitamin D Hydroxy (07307)Indication: Vitamin D deficiency, unspecified On: :42 Request LIPID PANEL (45474)Indication: Hypercholesterolemia On: :42 Request METABOLIC PANEL, COMPREHENSIVE (99476)Indication: Essential hypertension On: :36 Request TSH (25340)Indication: Acquired hypothyroidism On: :36 Request CBC with auto diff (16092)Indication: Abdominal pain, acute, right lower quadrant On: 6-Gen-294563:06 Request METABOLIC PANEL, COMPREHENSIVE (10441)Indication: Abdominal pain, acute, right lower quadrant On: 3-Zlo-956921:06 Request Urinalysis, Office (96632)Indication: Low Back Pain (Renamed from LBP (low back pain)) On: 70-Faa-100409:09 Request Vitamin D Hydroxy (80355)Indication: Vitamin D deficiency, unspecified On: 26-Sep-539677:32 Request METABOLIC PANEL, COMPREHENSIVE (17438)Indication: Essential hypertension On: 82-Bng-030150:31 Request LIPID PANEL (08076)Indication: Hypercholesterolemia On: :31 Request TSH (09909)Indication: Acquired hypothyroidism On: 70-Fcn-342758:31 Request LIPID PANEL (86441)Indication: Hypercholesterolemia On: 2-Iot-833289:45 Request TSH (47158)Indication: Acquired hypothyroidism On: :44 Request METABOLIC PANEL, COMPREHENSIVE (53007)Indication: Essential hypertension On: :44 Request CBC, PLATELETS & AUT DIFF (68545)Indication: DEFICIENCY, B-COMPLEX NEC On: :43 Request VITAMIN B-12 (CYANOCOBALAMIN) (00031)Indication: DEFICIENCY, B-COMPLEX NEC On: 3-Bdj-652908:43 Request Vitamin D Hydroxy (37278)Indication: Vitamin D deficiency, unspecified On: :43 Request IRON (04553)Indication: Anemia On: 1-Dku-249715:42 Request Vitamin D Hydroxy (18101)Indication: Vitamin D deficiency, unspecified On: 0-Tgd-403901:36 Request VITAMIN B-12 (CYANOCOBALAMIN) (87553)Indication: DEFICIENCY, B-COMPLEX NEC On: 7-Ugx-906611:35 Request CBC WITH MANUAL DIFF (85709)Indication: DEFICIENCY, B-COMPLEX NEC On: 9-Ysl-500722:35 Request METABOLIC PANEL, COMPREHENSIVE (05204)Indication: Essential hypertension On: 1-Lfm-718825:35 Request T3, FREE (TRIDOTHYRONINE) (17794)Indication: Acquired hypothyroidism On: 0-Fuu-625748:35 Request T4, FREE (29505)Indication: Acquired hypothyroidism On: 1-Xwl-101682:35 Request TSH (43629)Indication: Acquired hypothyroidism On: 3-Gol-175071:34 Request TSH (90137)Indication: Acquired hypothyroidism On: 94-Ked-440791:23 Request Comments: recheck in 6 weeks Metabolic Panel, Basic (64770)Indication: Essential hypertension On: 12-Yss-955790:16 Request TSH (10764)Indication: Acquired hypothyroidism On: 11-Bes-596168:22 Request C-REACTIVE PROTEIN (90677)Indication: right lower quadrant pain On: 90-Hqz-544853:51 Request SED RATE ERYTHROCYTE (30252)Indication: right lower quadrant pain On: :51 Request Magnesium (41924)Indication: Leg cramps On: :43 Request CBC WITH MANUAL DIFF (87719)Indication: Edema leg On: :42 Request LIPID PANEL (32107)Indication: Hypercholesterolemia On: :41 Request METABOLIC PANEL, COMPREHENSIVE (55986)Indication: Essential hypertension On: :41 Request VITAMIN B-12 (CYANOCOBALAMIN) (16655)Indication: Other vitamin B12 deficiency anemia On: :41 Request Vitamin D Hydroxy (28077)Indication: Vitamin D deficiency, unspecified On: :41 Request Metabolic Panel, Basic (87706)Indication: Acute renal failure, unspecified acute renal failure type On: :31 Request TSH (77242)Indication: Acquired hypothyroidism On: :30 Request LIPID PANEL (80652)Indication: Hypercholesterolemia On: :39 Request Vitamin D Hydroxy (07851)Indication: Vitamin D deficiency, unspecified On: :39 Request VITAMIN B-12 (CYANOCOBALAMIN) (38363)Indication: Other vitamin B12 deficiency anemia On: :39 Request CBC WITH MANUAL DIFF (85054)Indication: Other vitamin B12 deficiency anemia On: :39 Request METABOLIC PANEL, COMPREHENSIVE (42216)Indication: Essential hypertension On: :39 Request Vitamin D Hydroxy (62808)Indication: Vitamin D deficiency, unspecified On: :37 Request LIPID PANEL (87829)Indication: Hypercholesterolemia On: :37 Request TSH (29031)Indication: Acquired hypothyroidism On: :37 Request CBC WITH MANUAL DIFF (24532)Indication: Essential hypertension On: :39 Request METABOLIC PANEL, COMPREHENSIVE (42703)Indication: Essential hypertension On: :39 Request VITAMIN B-12 (CYANOCOBALAMIN) (35082)Indication: b12 deficiency On: :39 Request LIPID PANEL (10665)Indication: Hypercholesterolemia On: :39 Request Vitamin D Hydroxy (28235)Indication: Vitamin D deficiency, unspecified On: :32 Request VITAMIN B-12 (CYANOCOBALAMIN) (47032)Indication: b12 deficiency On: :32 Request Vitamin D Hydroxy (52170)Indication: Vitamin D deficiency, unspecified On: :32 Request METABOLIC PANEL, COMPREHENSIVE (38964)Indication: Essential hypertension On: :32 Request LIPID PANEL (31233)Indication: Hypercholesterolemia On: :32 Request TSH (99725)Indication: Acquired hypothyroidism On: :32 Request CBC WITH MANUAL DIFF (72924)Indication: Essential hypertension On: :30 Request METABOLIC PANEL, COMPREHENSIVE (55237)Indication: Essential hypertension On: :29 Request VITAMIN B-12 (CYANOCOBALAMIN) (04808)Indication: DEFICIENCY, B-COMPLEX NEC On: :29 Request Vitamin D Hydroxy (83954)Indication: Vitamin D deficiency, unspecified On: :29 Request TSH (10637)Indication: Acquired hypothyroidism On: :29 Request LIPID PANEL (15655)Indication: Hypercholesterolemia On: :29 Request Vitamin B-12 (cyanocobalamin) (84288)Indication: b12 deficiency On: 86-Tid-354693:01 Request CALCIFIDIOL (43146) VIT D 25Indication: Vitamin D deficiency, unspecified On: 59-Oqi-022920:00 Request TSH (99281)Indication: Acquired hypothyroidism On: :34 Request LIPID PANEL (39893)Indication: Hypercholesterolemia On: :34 Request Metabolic Panel, Basic (44093)Indication: Essential hypertension On: 58-Rja-584297:26 Request VITAMIN B-12 (CYANOCOBALAMIN) (48492)Indication: DEFICIENCY, B-COMPLEX NEC On: 20-Vuh-822753:19 Request Vitamin D Hydroxy (13774)Indication: Vitamin D deficiency, unspecified On: 77-Wxv-242811:19 Request VITAMIN D, 1, 25-DIHYDROXY (30894)Indication: Vitamin D deficiency, unspecified On: 8-Tqn-327517:19 Request Comments: Vit D [place] Vitamin B-12 (cyanocobalamin) (54179)Indication: b12 deficiency On: 5-Yli-771103:17 Request CBC WITH MANUAL DIFF (55254)Indication: b12 deficiency On: 60-Nut-266433:17 Request VITAMIN B-12 (CYANOCOBALAMIN) (91296)Indication: b12 deficiency On: 43-Ywb-706070:14 Request VITAMIN B-12 (CYANOCOBALAMIN) (72442)Indication: Vitiligo On: 08-Wcn-342946:37 Request LIPID PANEL (25814)Indication: Hypercholesterolemia On: 73-Tjr-118248:33 Request TSH (13693)Indication: Acquired hypothyroidism On: 65-Jnh-851526:32 Request Vitamin D Hydroxy ([id number])Indication: Vitamin D deficiency, unspecified On: 15-Afk-006744:31 Request METABOLIC PANEL, COMPREHENSIVE ([id number])Indication: Essential hypertension On: 94-Vpa-866846:42 Request Vitamin D Hydroxy ([id number])Indication: Vitamin D deficiency, unspecified On: 89-Wkm-256762:42 Request CAROL (ANTINUCLEAR ANTIBODY) ([id number])Indication: Pain in unspecified joint On: :27 Request C-REACTIVE PROTEIN ([id number])Indication: Pain in unspecified joint On: :27 Request CBC WITH MANUAL DIFF ([id number])Indication: Pain in unspecified joint On: :27 Request CCP ANTIBODY ([id number])Indication: Pain in unspecified joint On: :27 Request METABOLIC PANEL, COMPREHENSIVE ([id number])Indication: Pain in unspecified joint On: :27 Request RHEUMATOID FACTOR-QUANT ([id number])Indication: Pain in unspecified joint On: : Request SED RATE ERYTHROCYTE ([id number])Indication: Pain in unspecified joint On: :27 Request TSH ([id number])Indication: Pain in unspecified joint On: :27 Request SED RATE ERYTHROCYTE ([id number])Indication: flank pain On: :35 Request C-REACTIVE PROTEIN ([id number])Indication: flank pain On: :35 Request METABOLIC PANEL, COMPREHENSIVE ([id number])Indication: flank pain On: :35 Request CBC WITH MANUAL DIFF ([id number])Indication: flank pain On: :35 Request URINE CESAR CULTURE (TUNDE COL COUNT) ([id number])Indication: flank pain On: :35 Request Thin prep Pap ([id number])Indication: Well woman exam with routine gynecological exam On: 0-Hrp-509673:09 Request CBC WITH MANUAL DIFF ([id number])Indication: Essential hypertension On: 31-Khm-879971:02 Request METABOLIC PANEL, COMPREHENSIVE ([id number])Indication: Essential hypertension On: 02-Ydr-800228:02 Request LIPID PANEL ([id number])Indication: Hypercholesterolemia On: 91-Xef-801552:02 Request METABOLIC PANEL, COMPREHENSIVE ([id number])Indication: Essential hypertension On: 16-Mru-650657:18 Request TSH ([id number])Indication: Acquired hypothyroidism On: 64-Ipw-123720:18 Request SED RATE ERYTHROCYTE ([id number])Indication: Abdominal pain, acute, left upper quadrant On: 50-Skm-172527:09 Request C-REACTIVE PROTEIN ([id number])Indication: Abdominal pain, acute, left upper quadrant On: 02-Ars-131669:09 Request CBC WITH MANUAL DIFF ([id number])Indication: edema On: 74-Xoo-439215:09 Request METABOLIC PANEL, COMPREHENSIVE ([id number])Indication: edema On: 05-Soq-208762:09 Request TSH ([id number])Indication: Acquired hypothyroidism On: 90-Tug-104852:03 Request CBC WITH MANUAL DIFF ([id number])Indication: Abdominal pain, acute, left upper quadrant On: 80-Xev-707514:22 Request Lipase ([id number])Indication: Abdominal pain, acute, left upper quadrant On: 77-Wvw-785721:22 Request Amylase ([id number])Indication: Abdominal pain, acute, left upper quadrant On: 93-Tzy-606462:21 Request Thin prep Pap ([id number])Indication: Well woman exam with routine gynecological exam On: 37-Akg-512108:43 Request HEPATIC FUNCTION PANEL ([id number])Indication: Hypercholesterolemia On: 42-Hbm-443852:52 Request LIPID PANEL ([id number])Indication: Hypercholesterolemia On: 51-Tkc-105978:52 Request CBC, PLATELETS & AUTO DIFF ([id number])Indication: Leukopenia On: 06-Kef-570815:34 Request Planned Encounters Medical; DARRIAN 6 Month Fu - On: 03-Jul-2018 13:00 [facility] Fast DO, Kristine A Fast DO, Kristine A Planned Procedures DEXA SCAN AXIAL SKELETON ([id number])By: On: 02-Jan-2018 Intent Fast DO, Kristine A Fast DO, Kristine A Comments: mar - RenalBy: Fast DO, On: 02-Jan-2018 Intent Kristine A Fast DO, Kristine A Flu Vaccine (Quadrivalent) [id number]: On: 02-Jan-2018 Intent Fast DO, Kristine A Fast DO, Kristine A Comments: Lot #[id number]-8/30/2019Site-L dltd, IMDose prefilled syringegiven by: Melly reviewed and ABN signed ELECTROCARDIOGRAM, COMPLETE (ECG) On: 28-Aug-2017 Intent ([id number])By: Fast DO, Kristine A Fast Comments: ekg showed normal sinus rhythym, normal axis, no acute st/t wave changes DO, Kristine A SCREENING DIGITAL TOMOSYNTHESIS OF On: 28-Aug-2017 Intent BREAST ([id number])By: Fast DO, Kristine A Fast DO, Kristine A B 12 Injection, 1000 mcg (J3420)By: On: 15-Mar-2017 Intent Visit, Nurse Comments: [id number]/mlMlalanna, OR NURSE MANAGER B 12 Injection, 1000 mcg (J3420)By: On: 22-Feb-2017 Intent Fast DO, Kristine A Fast DO, Kristine A Comments: lot: [id number]: 05/01site/route: L del/IMamt: 1mLVIS signed when applicableRAYMUNDO Huerta Flu Vaccine (Quadrivalent) 34588Pj: On: 17-Jan-2017 Intent Fast DO, Kristine A Fast DO, Kristine A Comments: Lot #:[id number] date: 08/28/17Amount given: 0.5mlRoute: IMSite given: left deltoidGiven by: AYAD Dailey B 12 Injection, 1000 mcg (J3420)By: On: 17-Jan-2017 Intent Fast DO, Kristine A Fast DO, Kristine A Comments: Lot #:[id number] date:04/2018Amount given: 1mlRoute: IMSite given: right deltoidGiven by: AAYD Dailey B 12 Injection, 1000 mcg (J3420)By: On: 12-Dec-2016 Intent Visit, Nurse Comments: 69839/2018R arm, IM1ml, 1000mcgML, OR NURSE MANAGER B 12 Injection, 1000 mcg (J3420)By: [...] Kristine A Fast DO, Kristine A Comments: B12lot:[id number]:ite:lt deltroute:Imdose:1mlD.AYAD Jerez B 12 Injection, 1000 mcg [...] armGiven By:TAVON signed DEXA SCAN AXIAL SKELETON ([id number])By: On: 04-Apr-2016 Intent Fast DO, Kristine A Fast DO, Kristine A MRI LUMBAR SPINE W/O CONTRAST On: 04-Apr-2016 Intent ([id number])By: Fast DO, Kristine A Fast DO, Kristine [...] A ELECTROCARDIOGRAM, COMPLETE (ECG) On: 11-Dec-2015 Intent ([id number])By: Fast DO, Kristine A Fast Comments: ekg [...] MAMMOGRAM, SCREENING, BOTH BREAST On: 21-Apr-2015 Intent ([id number])By: Fast DO, Kristine A Fast DO, Kristine A B 12 Injection, 1000 mcg (J3420)By: On: 21-Apr-2015 Intent Fast DO, Kristine A Fast DO, Kristine A Comments: Lot:[id number]:11/27Dose:1mlRoute:IMSite:r arm Given By:TAVON signed B 12 Injection, 1000 mcg (J3420)By: On: 16-Mar-2015 Intent Fast DO, Kristine A Fast DO, Kristine A Comments: lot: [id number]: 06/27site/route: L del/IMamt: 1mLVIS signed when applicableRAYMUNDO Pichardo B 12 Injection, 1000 mcg (J3420)By: On: 09-Feb-2015 Intent Fast DO, Kristine A Fast DO, Kristine A Comments: B12lot:[id number]:06/27site:lt deltoidroute:IMdose:1mlDEMICK, SMA B 12 Injection, 1000 mcg (J3420)By: On: 15-Jan-2015 Intent Hunter Jerez Comments: B 12Lot:[id number]:3*17site:lt deltoidroute:IMdose:.5mlDEMICK, SMA B 12 Injection, 1000 mcg (J3420)By: On: 10-Dec-2014 Intent Fast DO, Kristine A Fast DO, Kristine A Comments: lot [id number] - see ANOOP Mcallister CT - Abdomen & Pelvis (IV Contrast On: 16-Sep-2014 Intent Needed)By: Fast DO, Kritsine A Fast DO, Kristine A B 12 Injection, 1000 mcg (J3420)By: On: 16-Sep-2014 Intent Fast DO, Kristine A Fast DO, Kristine A Comments: Lot:[id number]:11.16Route:IMSite:R deltoidDose: 1 mLgiven by: Carlita Ariza CMA [...] 1,000 mcgSite: l dltdLocation; IMby: Prevnar 13 ([id number])By: Fast DO, On: 24-Mar-2014 Intent Kristine A Fast DO, Kristine A Comments: lot: [id number]: 3/16site/route: L del/IMamt: 0.5mLVIS signed when applicableRAYMUNDO Huerta Ultrasound - PelvisBy: Fast DO, On: 24-Mar-2014 Intent Kristine A Fast DO, Kristine A B 12 Injection, 1000 mcg (J3420)By: On: 24-Mar-2014 Intent Fast DO, Kristine A Fast DO, Kristine A Comments: lot: [id number]: 4/16site/route: R del/IMamt:1mlVIS signed when applicableChelsea, CONTENT PUBLISHER B 12 Injection, 1000 mcg (J3420)By: On: 24-Feb-2014 Intent Silvia Burton LPN Comments: lot: [id number]: 4.16Dose: 1,000 mcgSite: l dltdLocation; IMby: B 12 Injection, 1000 mcg (J3420)By: On: 22-Jan-2014 Intent Fast DO, Kristine A Fast DO, Kristine A Comments: lot [id number] 08/2015location L armroute imgiven by - msmith VIS and/or ABN signed B 12 Injection, 1000 mcg (J3420)By: On: 30-Dec-2013 Intent Fast DO, Kristine A Fast DO, Kristine A Comments: lot [id number] 05/2015location L armroute imgiven by - msmithVIS [...] Fast Comments: today DO, Kristine A EKG ([id number])By: Fast DO, Kristine A On: 05-Nov-2013 Intent Fast DO, Kristine A Comments: ekg showed normal sinus rhythym, normal axis, no acute st/t wave changes B 12 Injection, 1000 mcg (J3420)By: On: 05-Nov-2013 Intent Fast DO, Kristine A Fast DO, Kristine A Comments: Lot:[id number]:11/24Dose:1mlRoute:IMSite:l armGiven By:TAVON signed PHYSICAL THERAPY EVALUATION On: 18-Oct-2013 Intent ([id number])By: Aquiles Potts CNP SPECIMEN HANDLING/TRANSPORT On: 18-Oct-2013 Intent ([id number])By: Aquiles Potts CNP B 12 Injection, 1000 mcg (J3420)By: On: 11-Oct-2013 Intent Aquiles Potts CNP Comments: Lot:[id number]:11/2013Dose:1mlRoute:IMSite:[place] By:TAVON signed B 12 Injection, 1000 mcg (J3420)By: On: 18-Sep-2013 Intent Fast DO, Kristine A Fast DO, Kristine A B 12 Injection, 1000 mcg (J3420)By: On: 07-Aug-2013 Intent Fast DO, Kristine A Fast DO, Kristine A Comments: lot: [id number]: ite/route: L del/IMamt: 1mLVIS signed when applicableChelsea, CONTENT PUBLISHER MAMMOGRAM, SCREENING, BOTH BREASTS On: 24-Jun-2013 Intent ([id number])By: Fast DO, Kristine A Fast DO, Kristine A B 12 Injection, 1000 mcg (J3420)By: On: 24-Jun-2013 Intent Fast DO, Kristine A Fast DO, Kristine A Comments: Lot:[id number]:04/28Dose:1mlRoute:IMSite:[place] By:TAVON signed B 12 Injection, 1000 mcg (J3420)By: On: 15-May-2013 Intent Visit, Nurse Comments: Lot:[id number]:01/25Dose:1mlRoute:IMSite:[place] By:TAVON signed B 12 Injection, 1000 mcg (J3420)By: On: 22-Apr-2013 Intent Fast DO, Kristine A Fast DO, Kristine A Comments: lot: [id number]: 01/25site/route: L deltoid/IMamt: 1mLVIS signed when applicableChelsea, CONTENT PUBLISHER B 12 Injection, 1000 mcg (J3420)By: On: 21-Mar-2013 Intent Fast DO, Kristine A Fast DO, Kristine A Comments: see flowsheetMegan PNEUM VAC ADLT/IMUMNOSPR, SBC/INTRM On: 18-Feb-2013 Intent ([id number])By: Fast DO, Kristine A Fast Comments: Lot: [id number]: [id number]: 0.5mlRoute: IMSite: L deltoidGiven by: ANOOP Moralez DO, Kristine A ADMINISTRATION OF PNEUMOCOCCAL On: 18-Feb-2013 Intent VACCINE (G0009)By: Fast DO, Kristine A Fast DO, Kristine A Eprescribed prescriptions On: 18-Feb-2013 Intent (G8553)By: Deanna Michelle B 12 Injection, 1000 mcg (J3420)By: On: 02-Jan-2013 Intent Deanna Michelle Comments: lot: [id number]: 10/25site/route: L deltoid/IMamt: 1mLVIS signed when applicableChelsea, CONTENT PUBLISHER B 12 Injection, 1000 mcg (J3420)By: On: [...] 08/24site/route: R deltoid/IMamt: 1mLVIS signed when applicableChelsea, CONTENT PUBLISHER B 12 Injection, 1000 mcg (J3420)By: On: 28-Aug-2012 Intent Fast DO, Kristine A Fast DO, Kristine A Comments: Lot #:[id number] date:mount given:1mlRoute: IMSite given: left deltoidGiven by: AYAD Dailey B 12 Injection, 1000 mcg (J3420)By: On: 23-Jul-2012 Intent Fast DO, Kristine A Fast DO, Kristine A Comments: Lot: [id number]: 02/23Amt: 1000mcg/1mlRoute: IMSite: L Deltoid per pt [...] A Fast DO, Kristine A Comments: lot: [id number]:02/23site/route: L deltoid/IMamt: 1ccVIS signed when applicableChelsea, CONTENT PUBLISHER B 12 Injection, 1000 mcg (J3420)By: On: 09-May-2012 Intent Kylee Castellon Comments: Lot:[id number]:02/2014Dose:1mlRoute:IMSite:L armGiven By:Jameson signed VENOUS DOPPLER LOWER EXTREMITY On: 18-Apr-2012 Intent (65540)By: Fast DO, Kristine A Fast DO, Kristine A Radiology - Hip - RightBy: Fast DO, On: 06-Apr-2012 Intent Kristine A Fast DO, Kristine A Comments: call results B 12 Injection, 1000 mcg (J3420)By: On: 06-Apr-2012 Intent Lisandra Chilel Comments: Lot #[id number]-18/14Site-left deltoidDose-1 mlgiven by: Omkar Rivera LPN Eprescribed prescriptions On: 06-Apr-2012 Intent (G8553)By: Lisandra Chilel Inhaler Demo ([id number])By: Fast DO, On: 06-Feb-2012 Intent Kristine A Fast DO, Kristine A B 12 Injection, 1000 mcg (J3420)By: On: 06-Feb-2012 Intent Kylee Castellon Comments: Lot:[id number]:Dose:1mlRoute:IMSite:L armGiven By:TAVON signed MAMMOGRAM, SCREENING, BOTH BREASTS On: 06-Feb-2012 Intent ([id number])By: Fast DO, Kristine A Fast DO, Kristine [...] Coverage Instructions Apply. See CIM: 45-4 and [facility]: 2049) (J3420)By: Licha Almaguer LPN [...] mlRoute: IMSite given: left deltoidGiven by: AMI Alcarazbedspread cutter - Cervical SpineBy: Fast On: 13-Apr-2011 Intent DO, Kristine A Fast DO, Kristine A TD Injection , IM (03369)By: On: 13-Apr-2011 Intent Lisandra Chilel Comments: received in 2005 B 12 Injection, 1000 mcg (J3420)By: On: 29-Mar-2011 Intent Kateryna Lunsford MD Comments: Lot #[id number]-Left arm, IMDose 0.5mlgiven by:Татьяна B 12 Injection, 1000 mcg (J3420)By: On: 08-Feb-2011 Intent Татьяна Vera LPN Comments: Lot [id number]#Exp-7.13Site-R arm, IMDose 1mlgiven by:Татьяна DXA, BONE DENSITY, AXIAL SKELETON On: 24-Jan-2011 Intent ([id number])By: Lisandra Chilel Comments: post menopausal wihtout estrogen FLU VAC, SPLIT, >3 YEARS, INTRAMUSC On: 24-Jan-2011 Intent ([id number])By: Lisandra Chilel Comments: received at [facility] B 12 Injection, 1000 mcg (J3420)By: On: 21-Dec-2010 Intent Licha Almaguer LPN INJECTION, VITAMIN B-12 On: 19-Nov-2010 Intent CYANOCOBALAMIN, UP TO 1000 MCG Comments: Lot:[id number]:04/25Amt:1mlRoute:IMSite:left deltGiven By: ANOOP Sotelo (Special Coverage Instructions Apply. See CIM: 45-4 and MCM: 9) (J3420)By: Vi Ramirez EKG (77538)By: Lisandra Chilel On: 05-Nov-2010 Intent Comments: ekg showed normal sinus rhythym, normal axis, no acute st/t wave changes MAMMOGRAM, SCREENING, BOTH BREASTS On: 05-Nov-2010 Intent ([id number])By: Fast DO, Kristine A Fast DO, Kristine [...] 03-Jun-2010 Intent Yasmeen Rivera LPN Comments: Lot #[id number]-left deltoidDose-1 mlgiven by:[facility] IMMUNIZ ADMNIN, 1 VAC, SNGL/COMBO On: 19-Apr-2010 Intent (14916)By: Yasmeen Rivera LPN Comments: Lot #[id number]-2/19/12Site-left deltoidDose- 0.85mlgiven by:[facility] [place], [place] (55553)By: Miguel On: 19-Apr-2010 Intent Yasmeen DAVALOS B [...] Rivera LPN Comments: Lot #[id number]-left deltoidDose-1 mlgiven by:[facility] FLU VAC, SPLIT, >3 YEARS, INTRAMUSC On: 30-Dec-2009 Intent (22187)By: Lisandra Chilel Comments: Lot #[id number]-6/Site-left deltoidgiven by:PRICE B 12 Injection, 1000 mcg (J3420)By: On: 30-Dec-2009 Intent Lisandra Chilel Comments: Lot #[id number]-5/12Site-right deltoidDose-1 mlgiven by:PRICE Renal Duplex ScanBy: Fast DO, Kristine On: 30-Dec-2009 Intent A Fast DO, Kristine A IMMUNIZ ADMNIN, 1 VAC, SNGL/COMBO On: 30-Dec-2009 Intent (39740)By: Lisandra Chilel B 12 Injection, 1000 mcg (J3420)By: On: 14-Dec-2009 Intent Shayna Harris Comments: Lot:[id number]:07/22Dose:1000mcg/1mlRoute:IMSite:right deltoid Given by: AYAD Gil B 12 Injection, 1000 mcg (J3420)By: On: 26-Nov-2009 Intent Phyllis Escobar RN Comments: documented in flowsheet B 12 Injection, 1000 mcg (J3420)By: On: 19-Oct-2009 Intent Yasmeen Rivera LPN Comments: Lot #[id number]-04/24Site-left deltoidDose-1 mlgiven by:[facility] B 12 Injection, 1000 mcg (J3420)By: On: 13-Oct-2009 Intent Shayna Harris Comments: Lot:[id number]:04/24Dose:1000mcg/1mlRoute:imSite:right sideGiven by: AYAD Gil B 12 Injection, 1000 mcg (J3420)By: On: 06-Oct-2009 Intent Fast DO, Kristine A Fast DO, Kristine A Comments: Lot #[id number]-04/24Site-right deltoidDose- 1 mlgiven by:[facility] MRI - BrainBy: Fast DO, Kristine [...] do this week and call ressults EKG (77428)By: Fast DO, Kristine A On: 17-Dec-2008 Intent Fast DO, Kristine A Comments: ekg showed normal sinus rhythym, normal axis, no acute st/t wave changes MAMMOGRAM, SCREENING, BOTH BREASTS On: 17-Dec-2008 Intent (68785)By: Fast DO, Kristine A Fast DO, Kristnie A MRI - Lumbar SpineBy: Fast DO, On: 17-Dec-2008 Intent Kristine A Fast DO, Kristine A FLU VAC, SPLIT, >3 YEARS, INTRAMUSC On: 17-Dec-2008 Intent ([id number])By: Lisandra Chilel Comments: Lot #:[id number] date:mount given:0.5mlRoute: IMSite given:left deltoidGiven by: AYAD Dailey ADMINISTRATION OF INFLUENZA VIRUS On: 17-Dec-2008 Intent VACCINE (G0008)By: Lisandra Chilel CT - Abdomen & Pelvis Stone On: 18-Aug-2008 Intent ProtocolBy: Kristine Davis DO A Antwan Comments: stat -call results Kristine MIX A Radiology - Chest- PA and LatBy: On: 24-Mar-2008 Intent Kristine Davis DO A Antwan DO, Kristine A Spirometry (97993)By: Antwan MIX, On: 24-Mar-2008 Intent Kristine Davis DO Kristine A Comments: good effort and curve minimal decrease small airways ADMINISTRATION OF PNEUMOCOCCAL On: 17-Dec-2007 Intent VACCINE (G0009)By: Kristine Davis DO, DO Kristine A PNEUM VAC ADLT/IMUMNOSPR, SBC/INTRM On: 18-Dec-2007 Intent ([id number])By: Kristine Davis DO Comments: Lot #:[id number] date:08/19Amount given:0.5mlRoute: IMSite given:left deltGiven by: AYAD Dailey DO, Kristine A MAMMOGRAM, SCREENING, BOTH BREASTS On: 17-Dec-2007 Intent ([id number])By: Kristine Davis DO Comments: end of feb DO, Kristine A DXA, BONE DENSITY, AXIAL SKELETON On: 31-Oct-2007 Intent (30801)By: Kristine Davis DO, DO Kristine A Echo CompleteBy: Antwan DO, Kristine A On: 25-Jul-2007 Intent Antwan DO, Kristine A Bio Z ([id number])By: Antwan MIX Kristine A On: 25-Jul-2007 Intent Antwan DO Kristine A Comments: good cardiac output and no excesive gfluid EKG (52004)By: Kristine Davis DO A On: 25-Jul-2007 Intent Antwan DO Kristine A Comments: ekg showed normal sinus rhythym, normal axis, no acute st/t wave changes CT - Abdomen & Pelvis (IV Contrast On: 11-Jul-2007 Intent Needed)By: Adrianna Morgan DO MAMMOGRAM, SCREENING, BOTH BREASTS On: 27-Mar-2006 Intent ([id number])By: Adrianna Morgan DO Planned Medications Vitamin B-12 [...] MCG/ML Injection Solution Ordered: 22-Apr-2014 Pending Slarb OR NURSE MANAGER, Silvia Vitamin B-12 1000 MCG/ML Injection Solution Ordered: 24-Mar-2014 Pending Fast DO, Kristine A Fast DO, Kristine A Vitamin B-12 1000 MCG/ML Injection Solution Ordered: 24-Feb-2014 Pending [employer] OR NURSE MANAGER, Silvia Vitamin B-12 1000 MCG/ML Injection [...] Injection Solution Ordered: 04-Apr-2016 Pending Fast DO, Kristnie A Fast DO, [...] MCG/ML Injection Solution Ordered: 05-Nov-2015 Pending [place], [place] Vitamin B-12 1000 MCG/ML Injection Solution Ordered: 05-Oct-2015 Pending Fast DO, Kristine A Fast DO, Kristine A Vitamin B-12 1000 MCG/ML Injection Solution Ordered: 05-Nov-2013 Pending Fast DO, Kristine A Fast DO, Kristine A Vitamin B-12 1000 MCG/ML Injection Solution Ordered: 11-Oct-2013 Pending Ciesa JUMBO OPERATOR, Judy Vitamin B-12 1000 MCG/ML Injection Solution [...] MCG/ML Injection Solution Ordered: 19-Apr-2010 Pending [employer] OR NURSE MANAGER, Yasmeen Vitamin B-12 1000 MCG/ML Injection Solution [...] went well- she saw Dr Mckeon in [facility] for pain management - had [...] procedure: ( End: 10-Dec-2014 21:34 /19/[address] [facility] [address] dr Mahesh stokes) . There have been no problems with general anesthesia or blood/blood products. Prosthetics include: dentures (partial). Note for Preoperative evaluation: [facility]- having spinal [...] scleroderma, leukopenia). Note for Follow up for light cleaner tim medical issues: Pt had colonoscopy done [...] scleroderma, leukopenia). Note for Follow up for light cleaner tim medical issues: No routine labs done [...] scleroderma, leukopenia). Note for Follow up for light cleaner tim medical issues: still having right lateral [...] scleroderma, leukopenia). Note for Follow up for light cleaner tim medical issues: sdhe is losing weight [...] scleroderma, leukopenia). Note for Follow up for light cleaner tim medical issues: feels well other than [...] scleroderma, leukopenia). Note for Follow up for light cleaner tim medical issues: No routine labs done [...] medical issues: she saw Jessee Stringer at [facility] for her groin pain- - [...] the rare occ that she takes at [facility] but doesnt know accuracy, [ADDITIONAL REASON] Follow [...]
--- OUTSIDE RECORDS SUMMARY | 2018-06-01 23:57 | XMS RPT_ITS | Continuity of Care Document ---
:1940 Author Organization [facility] Address [address] [facility] [address] [place] [address] Phone Care Team Providers Name Role Phone [...] DO, Kristine A Start : 02-Mar-2016 Active Comments:[facility] report#[id number], df approved and given to pt-jf 03/02/16 Imipramine HCl 25 MG Oral Tablet 1 (one) Tablet qhs prn for 0 days Quantity: 30 {Tablet} Refills: 1 Ordered:14-Jul-2017 Fast DO, Kristine AFast DO, Kristine A Start : 14-Jul-2017 Active Comments:verbally called to [facility] - cmanchak 5/4 Leg Cramps 7 to [...] cap daily (100 MG) Active Vitamin D3 97674 UNIT Oral Capsule 1 (one) Capsule once [...] : 11-Jul-2007 End : 08-Aug-2007 Discontinued Drisdol 24703 UNIT Oral Capsule 1 (one) Capsule once [...] Chilel End : 08-Aug-2007 Discontinued VITAMIN D, 46904VNGB (Oral Capsule) 1 cap q week (87121 UNIT) Start : 27-Mar-2013 End : 27-Mar-2013 Discontinued Comments:This order discontinued per [employer]. VITAMIN D, 55597ZFQS (Oral Capsule) 1 cap Capsule q week [...] and Bladder Result: Comments: See Note; NOTES: [facility] Imaging Services [address] [place] [address] Kidney and Bladder MR#: [id number] Acct: [id number] Name: VIRGINIA URRUTIA Rep #: [id number] : 1940 F 77 From: Doug Sinclair DO PCP: Kristine Davis DO Status: REG CLI Study: Kidney and Bladder Date of Exam: 01/11/18 Exam# [id number] Ordering Dr: Kristine Davis DO STUDY: RENAL [...] Doug Sinclair DO at 23:00 EDT Tel [phone], Service support , CC: Kristine Davis DO Tool Designer Apprentice: Signed 05-Oct-2017 TXT - Blood Flow Screening Result: Comments: See Note; NOTES: [facility] Cardiovascular Services [address] [facility] [place] [address] 10/02/17 0928 MR#: [id number] Acct: [id number] Name: VIRGINIA URRUTIA Rep #: [id number] [...] DO Date Dictated: 10/02/1728 Date Transcribed: 10/05/171656 Tool Designer Apprentice: Signed 02-Oct-2017 SCREENING MAMM (CAD), BILAT Result: Comments: See Note; NOTES: [facility] Imaging Services [address] [place] [address] SCREENING MAMM (CAD), BILAT MR#: [id number] Acct: [id number] Name: VIRGINIA RURUTIA Rep #: [id number] : 1940 F 76 From: Noel Avitia MD PCP: Kristine Davis DO Status: REG CLI Study: SCREENING MAMM (CAD), BILAT Date of Exam: 10/02/17 Exam# [id number] Ordering Dr: Kristine Davis DO MAMMOGRAPHY - [...] Service support , CC: Kristine Davis DO Tool Designer Apprentice: Signed 14-Sep-2016 Venous Duplex Lower Extremity Result: Comments: See Note; NOTES: [facility] Cardiovascular Services [address] [place] [address] Venous Duplex US, Unilateral 09/14/16 1558 MR#: [id number] Acct: [id number] Name: VIR[place]IA YEH Rep #: [id number] : 1940 75 From: Johan Ortega MD [...] Date Dictated: 09/14/16 1558 Date Transcribed: 09/14/16 1031 Tool Designer Apprentice: Signed 23-Aug-2016 Re-Evaluation - PT (1) Result: Comments: See Note; NOTES: [facility] Physical Therapy [facility] [address] [facility] [address] [facility]. [address] [place] [address] Fax REEVALUATION / MEDICARE RECERTI MATTHIAS Zamora 4d PHYSICAL THERAPY MR#: [id number] Acct: [id number] Name: VIR[place]IA URRUTIA Rep #: [id number] : 1940 75 From: Humberto Aguilar DPT, OCS, CSCS Referring DrDav: OUT OF TOWN DOCTOR Status : REG RCR Insurance: [facility] Out of [facility] Doctor, It [...] do not hesitate to contact me at [phone] by phone or if you have questions [...] - PT Result: Comments: See Note; NOTES: [facility] Physical Therapy [facility] [address] [facility] [address] [address]. [address] [place] [address] Fax REHABILITATION SERVICES INITIAL EVALUATION MR#: [id number] Acct: [id number] Name: VIR[place]IA URRUTIA Rep #: [id number] : 1940 75 From: Humberto Aguilar DPT, OCS, CSCS Referring : OUT OF TOWN DOCTOR Status: REG RCR Insurance: AE [facility] Patient's Visit Information VIRGINIA URRUTIA is a 75 year old F referred to Physical Therapy by Out [facility] Doctor with a diagnosis of L [...] to be FAXED BACK to us at [phone] for Medica re purposes. Please let me know if there are questions or concerns regarding this plan of care. Physician Signature: Date: <Elec tronically signed by Humberto Aguilar DPT, OCS, CSCS> 07/29/16 0799 CC: Kristine Davis DO; OUT OF TOWN DOCTOR EBG Signed For Medicare only, by signing this I certify the pl an of care. Physicians Signature Date 19-Apr-2016 Emergency Department Summary Result: Comments: See Note; NOTES: [facility] Medical Records Department [address] [place] [address] Emergency Department Summary MR#: [id number] Acct: [id number] Name: VIR[place]IA URRUTIA Rep #: [id number] : 1940 75 From: Byron Harris MD PCP: Kristine Davis DO Status: [facility] ER DATE OF SERVICE: 04/14/2016 METHOD [...] Angel Douglas C: Kristine Davis DO T: [facility] JOB: [id number] 04/19/16 1814 <Electronically signed by Byron Harris MD> Date Byron Harris MD Cosigner Signature (If Indicated): Date CC: Kristine Davis DO Date Dictated: 04/15/1634 Date Transcrib ed: 04/15/1634 Tool Designer Apprentice: Signed 15-Apr-2016 Discharge Instruction Result: Comments: See Note; NOTES: [facility] Medical Records Department [address] [place] [address] Discharge Instruction 04/14/162306 MR#: [id number] Acct: [id number] Name: VIR[place]IA URRUTIA Rep #: [id number] : 1940 75 From: Byron Harris MD [...] your Primary Care Provider. Call Doctors Registry ([phone]) or report to the closest Emergency Room. Call 911 if necessary. 04/15/16 0118 &#6 0;Electronically signed by Byron Harris MD> Date Byron Harirs MD Cosigner Signature (If Indicated): Date CC: Kristine Davis DO 14-Apr-2016 Venous Duplex Imag/Limited/Uni Result: Comments: See Note; NOTES: [facility] Imaging Services [address] [place] [address] Verdana 4d Venous Duplex Imag/Limited/Uni MR#: [id number] Acct: [id number] Name: RHONA URRUTIA Rep #: [id number] : 1940 F 75 From: Doug Sinclair DO PCP: Kristine Davis DO Status: REG ER Study: Venous Duplex Imag/Limited/Uni Date of Exam: 04/14/16 Exam# [id number] Ordering Dr: Byron Harris MD STUDY: VENOUS [...] Doug Sinclair DO at 23:15 EST Tel [phone], Service support [phone], CC: Kristine Davis DO; Byron Harris MD Tool Designer Apprentice: Signed 13-Apr-2016 Spine Lumbar (Routine) Result: Comments: See Note; NOTES: [facility] Imaging Services [address] [place] [address] Verdana 4d Spine Lumbar (Routine) MR#: [id number] Acct: [id number] Name: VIR[place]IA URRUTIA p #: [id number] : 1940 F 75 From: Tiara Parsons MD PCP: Kristine Davis DO Status: REG CLI Study: Spine Lumbar (Routine) Date of Exam: 04/13/16 Exam# [id number] Ordering Dr: Kristine Davis DO STUDY: MRI [...] MD at 11:48 EST , Service support [phone], CC: Kristine Davis DO Tool Designer Apprentice: Signed 12-Apr-2016 PT D/C Summary (1) Result: Comments: See Note; NOTES: [facility] Physical Therapy [address] [place] [address] Fax REHABILITATION SERVICES DISCHAR SUMMARY MR#: [id number] Acct: [id number] Name: VIR[place]IA URRUTIA Rep #: [id number] : 1940 75 From: Humberto Aguilar DPT, OCS, CSCS Referring : Kristine Davis DO Status: REG RCR [facility] - [facility] D/C Summary It has been my pleasure to treat VIRGINIA URRUTIA under orders from Kristine Davis DO, for the diagnosis of R hip pain for a total of 12 visit(s). Discharge Date: Please see the [facility] information for a summary of their [...] help or hurt it. Will be in [place] in May and will have L TKA [...] please feel free to call me at [phone]. Thank yo sridevi for the referral of this patient. Sincerely, Humberto Aguilar DPT, OC <Electronically signed by Humberto Aguilar DPT, OCS, CSCS> 04/12/16 1621 CC: Kristine Davis DO EBG Signed 12-Apr-2016 Dexa Bone Density Study (HP) Result: Comments: See Note; NOTES: [facility] Imaging Services [address] [place] [address] Verdana 4d Dexa Bone Density Study () MR#: [id number] Acct: [id number] Name: ENE URRUTIA Rep #: [id number] : 1940 F 75 From: Dashawn Rowe MD PCP: Kristine Davis DO Status: REG CLI Study: Dexa Bone Density Study () Date of Exam: 04/12/16 Exam# [id number] Ordering Dr: Magallanes DO STUDY: DUAL ENERGY [...] Dashawn Rowe MD at 14:32 EST Tel [phone], Service support [phone], CC: Kristine Davis DO Tool Designer Apprentice: Signed 10-Mar-2016 Inital Evaluation (1) - PT Result: Comments: See Note; NOTES: [facility] Physical Therapy [facility] [address] [place] [address]. [address] [place] [phone] Fax REHABILITATION SERVICES INITIAL EVALUATION MR#: [id number] Acct: [id number] Name: VIR[place]IA URRUTIA Rep #: [id number] : 1940 75 From: Jennifer Gongora DPT Referring DrDav: Kristine Davis DO Status: REG RCR [facility] Visit Information VIR[place]IA URRUTIA is a [...] to be FAXED BACK to us at [phone] for Medicare purposes. Please let me know if there are questio ns or concerns regarding this plan of care. Physician Signature: Date: <Electronically signed by Jennifer Gongora DPT> 1243 CC: Kristine Davis DO ELR Signed For Medicare only, by signing this I certify the plan of care. Physicians Signature Date 17-Dec-2015 Echocardiogram Complete Result: Comments: See Note; NOTES: [facility] Cardiovascular Services [address] [place] [address] Echo Complete 12/17/15 1401 MR#: [id number] Acct: [id number] Name: VIR[place]IA URRUTIA Rep #: [id number] : 1940 75 From: Chicho Bahena MD Attending Dr: Kristine Davis DO Status: REG CLI Ordering Dr: Kristine Davis DO Date: 12/17/15 Location: [facility] Sex: F C Admitted: Reason For Study: [...] Date Dictated: 12/17/15 1401 Date Transcribed: 12/17/151700 Tool Designer Apprentice: Signed 11-Dec-2015 Bilat Scrn Digital AND CAD Result: Comments: See Note; NOTES: [facility] Imaging Services [address] [place] [address] Verdana 4d Bilat Scrn Digital AND CAD MR#: [id number] Acct: [id number] Name: VIR[place]IA URRUTIA Rep #: [id number] : 1940 F 75 From: Dashawn Rowe MD PCP: Kristine Davis DO Status: REG CLI Study: Bilvictor m [place] Digital AND CAD Date of Exam: 12/11/15 Exam# [id number] Ordering Dr: Kristine Davis DO MAMMOGRAPHY - [...] delay biopsy of a clinically suspicious abnormality. [id number] Electronically Signed: Dashawn Rowe MD at 8:47 EDT Tel [phone], Service support [phone], CC: Kristine Davis DO Tool Designer Apprentice: Signed 03-Jan-2015 Emergency Department Summary Result: Comments: See Note; NOTES: [facility] Medical Records Department [address] [place] [address] Emergency Department Summary MR#: [id number] Acct: [id number] Name: VIR[place]IA URRUTIA Mook Rep #: [id number] : 1940 74 From: Ivette Cline PCP: [...] Angel Grossman C: Kristine Davis DO T: [facility] JOB: [id number] 01/03/15 5222 <Electronically signed b angle Cline > Date Ivette Cline Cosigner Signature (If Indicated): Date CC: Kristine Davis DO Date Dictated: 12/27/141108 Date Transcribed: 12/27/141108 Tool Designer Apprentice: Signed 27-Dec-2014 Discharge Instruction Result: Comments: See Note; NOTES: [facility] Medical Records Department [address] [place] [address] Discharge Instruction 12/27/14 1100 MR#: [id number] Acct: [id number] Name: VIR[place]IA URRUTIA Rep #: [id number] : 1940 74 From: Ivette Cline PCP: [...] problems, contact your doctor. Call Doctors Registry ([phone]) or report to the closest Emergency Room. Call 911 if necessary. 12/27/141105 <Electronically signed by Ivette Cline > Date Ivette Cline Cosigner Signature (If Indicated): Date _ CC: Kristine Davis DO 27-Dec-2014 Spine Cervical without Contras Result: Comments: See Note; NOTES: [facility] Imaging Services [address] [place] [address] Verdana 4d Spine Cervical without Contras MR#: [id number] Acct: [id number] Na me: VIR[place]IA URRUTIA Rep #: [id number] : 1940 F 74 From: Doug Sinclair DO PCP: Antwan DOKristine Status: REG ER Study: Spine Cervical without Contras Date of Exam: 12/27/14 Exam# [id number] Ordering Dr : Ivette Cline STUDY: CT [...] Doug Sinclair DO at 10:36 EDT Tel [phone], Service suppo rt [phone], CC: Ivette Cline; Kristine Davis DO Tool Designer Apprentice: Signed 23-Dec-2014 Emergency Department Summary Result: Comments: See Note; NOTES: [facility] Medical Records Department [address] [place] [address] Emergency Department Summary MR#: [id number] Acct: [id number] Name: VIR[place] URRUTIA Rep #: [id number] : 1940 74 From: Se Dawkins MD PCP: Kristine Davis DO Status: [facility] ER DATE OF SERVICE: 12/23/2014 CHIEF [...] acute. Se Dawkins MD T: [facility] JOB: [id number] 12/23/14799 <Electronically signed by Se Dawkins MD> Date Se Dawkins MD Cosigner Signature (If Indicated): Date CC: Kristine Davis DO Date Dictated: 12/23/14707 Date Transcribed: 12/23/14707 Tool Designer Apprentice: Signed 23-Dec-2014 Discharge Instruction Result: Comments: See Note; NOTES: [facility] Medical Records Department [address] [place] [address] Discharge Instruction 12/23/14704 MR#: [id number] Acct: [id number] Name: VIR[place]IA URRUTIA Rep #: [id number] : 1940 74 From: Se Dawkins MD [...] problems, contact your doctor. Call Doctors Registry ([phone]) or r aartirt to the closest Emergency Room. Call 911 if necessary. 12/23/14705 <Electronically signed by Se Dawkins MD> Date Se collins MD Cosigner Signature (If Indicated): Date CC: Kristine Davis DO 10-Dec-2014 ELECTROCARDIOGRAM, COMPLETE (ECG) (60432) Result: [MEASUREMENTS ANALYSIS] Date of Test: 12/10/2014 10:23:24; Heart Rate: 91; SD Interval: 144; QRS: 96; QT Interval: 372; Corrected QT Interval (QTc): 426; P Wave [place]: 49; QRS Wave [place]: 35; T Wave [place]: 30; Blood Pressure: 0/0 [ECG DIAGNOSTIC STATEMENTS] Date of Test: 12/10/2014 10:23:24; Summary: Sinus Rhythm Low voltage in limb leads. ABNORMAL 22-Sep-2014 Abdomen/Pelvis WITH Contrast Result: Comments: See Note; NOTES: [facility] Imaging Services [address] [place] [address] CAT Scan Report MR#: [id number] Acct: [id number] Name: VIR[place] URRUTIA Rep #: [id number] : 1940 F 73 From: Rey Rojo MD PCP: Kristine Davis DO Status: REG CLI Study: Abdomen/Pelvis WITH Contrast Date of Exam: 09/22/14 Exam# [id number] Ordering Dr: Kristine Davis DO STUDY : [...] Rojo MD at 16:58 EDT Te l [phone], Service support [phone], CC: Kristine Davis DO Tool Designer Apprentice: Signed 31-Mar-2014 Transvaginal Non- Result: Comments: See Note; NOTES: [facility] Imaging Services [address] [place] [address] Ultrasound Report MR#: [id number] Acct: [id number] Name: V[place] URRUTIA Rep #: [id number] : 1940 F 73 From: Dashawn Rowe MD PCP: Kristine Davis DO Status: REG CLI Study: Transvaginal Non- Date of Exam: 03/31/14 Exam# [id number] Ordering Dr: Kristine Davis DO STUD Y: [...] Dashawn Rowe MD at 13:55 EST Tel [phone], Service support [phone], F ax [phone] CC: Kristine Davis DO Tool Designer Apprentice: Signed 31-Mar-2014 Pelvic (Non ) Result: Comments: See Note; NOTES: [facility] Imaging Services [address] [place] [address] Ultrasound Report MR#: [id number] Acct: [id number] Name: V[place] URRUTIA Rep #: [id number] : 1940 F 73 From: Dashawn Rowe MD PCP: Kristine Davis DO Status: REG CLI Study: Pelvic (Non ) Date of Exam: 03/31/14 Exam# [id number] Ordering Dr: Kristine Davis DO STUDY: U [...] Dashawn Rowe MD at 13:55 EST Tel [phone], Service support [phone], Fax CC: Kristine Davis DO Tool Designer Apprentice: Signed 22-Jan-2014 Bilvictor m [place] Digital & CAD Result: Comments: See Note; NOTES: [facility] Imaging Services [address] [place] [address] Breast Imaging Report MR#: [id number] Acct: [id number] Name: V[place] URRUTIA Rep #: [id number] : 1940 F 73 From: Dashawn Rowe MD PCP: Kristine Davis DO Status: REG CLI Exam# [id number] Ordering Dr: Kristine Davis DO MAMMOGRAPHY - [...] Dashawn Rowe MD at 14:49 EST Tel [phone], Ser vice support [phone], CC: Kristine Davis DO Tool Designer Apprentice: Signed 07-Nov-2013 L/S Spine Min 4 Views Result: Comments: See Note; NOTES: [facility] Imaging Services [address] [place] [address] Radiology Report MR#: [id number] Acct: [id number] Name: V[place]IA URRUTIA Rep #: [id number] : 1940 F 73 From: Tod Lamas MD PCP: Kristine Davis DO Status: REG CLI Study: L/S Spine Min 4 Views Date of Exam: 11/07/13 Exam# [id number] Ordering Dr: Kristine Davis DO STUDY: X-RA [...] at 18:52 EDT Tel , Service support [phone], CC: Kristine Davis DO Tool Designer Apprentice: Signed 07-Nov-2013 Thoracic Spine 3 Views Result: Comments: See Note; NOTES: [facility] Imaging Services [address] [place] [address] Radiology Report MR#: [id number] Acct: [id number] Name: V[place] URRUTIA Rep #: [id number] : 1940 F 73 From: Tod Lamas MD PCP: Kristine Davis DO Status: REG CLI Study: Thoracic Spine 3 Views Date of Exam: 11/07/13 Exam# [id number] Ordering Dr: Kristine Davis DO STUDY: X-R [...] at 17:07 EDT Tel , Service support [phone], CC: Kristine Davis DO Tool Designer Apprentice: Signed 05-Nov-2013 Abdomen/Pelvis without Cont Result: Comments: See Note; NOTES: [facility] Imaging Services [address] [place] [address] CAT Scan Report MR#: [id number] Acct: [id number] Name: VIR[place]IA URRUTIA Rep #: [id number] : 1940 F 73 From: Dashawn Rowe MD PCP: Kristine Davis DO Status: REG CLI Study: Abdomen/Pelvis without Cont Date of Exam: 11/05/13 Exam# [id number] Ordering Dr: Kristine Davis DO STUD Y: [...] Dashawn Rowe MD at 15:39 EDT Tel [phone], Service supp ort [phone], CC: Kristine Davis DO Tool Designer Apprentice: Signed 07-Oct-2013 Kidney and Bladder Result: Comments: See Note; NOTES: [facility] Imaging Services [address] [place] [address] Ultrasound Report MR#: [id number] Acct: [id number] Name: VIR[place]IA URRUTIA Rep #: [id number] : 1940 F 72 From: Brook Cummings DO PCP: Kristine Davis DO Status: REG CLI Study: Kidney and Bladder Date of Exam: 10/07/13 Exam# [id number] Ordering Dr: Aquiles Potts STUDY: RENAL ULTRAS [...] , CC: Aquiles Potts; Kristine Davis DO Tool Designer Apprentice: Signed Immunization Name Dates Details Influenza (3 years and up) on: 17-Dec-2008 Comments: Lot #:[id number] date:mount given:0.5mlRoute: IMSite given:left deltoidGiven by: AYAD [...] 0.00 cm Results Date Description Value Details 76-Ubu-982801:12 ANGTENSIN 1-CONVRT ENZYM Comments: PATIENT NOT FASTINGPERFORMED BY: [facility] [facility] [id number] BY: [employer] [id number] (20789) YOSEF 30 U/L (Normal) Range: 14-82 17-Zzz-968715:12 CCP ANTIBODY (04106) Comments: PATIENT NOT FASTINGPERFORMED BY: [facility] [facility] [id number] BY: [employer] [id number] CCP Antibodies IgG/IgA 8 {units} (Normal) Range: 0-19 Comments: Negative <20 Weak positive 20 - 39 Moderate positive 40 - 59 Strong positive >59 29-Eqq-708672:12 CAROL (ANTINUCLEAR ANTIBODY) Comments: PATIENT NOT FASTINGPERFORMED BY: [address] [id number] BY: [address] [id number] (64088) CAROL Direct Negative (Normal) 40-Uba-530617:12 RHEUMATOID FACTOR-QUANT Comments: PATIENT NOT FASTINGPERFORMED BY: [address] [id number] BY: [address] [id number] (38137) RA Latex Turbid. <10.0 {IU/mL} (Normal) Range: 0.0-13.9 97-Ill-867384:12 SED RATE ERYTHROCYTE Comments: PATIENT NOT FASTINGPERFORMED BY: [address] [id number] BY: [address] [id number] (53438) Sedimentation Rate-Westergren 15 mm/h (Normal) Range: 0-40 12-Kzt-352890:12 C-REACTIVE PROTEIN Comments: PATIENT NOT FASTINGPERFORMED BY: [address] [id number] BY: [address] [id number] (02126) C-Reactive Protein, Quant 2.9 mg/L (Normal) Range: 0.0-4.9 63-Hvz-439880:12 CBC, PLATELETS & AUT DIFF Comments: PATIENT NOT FASTINGPERFORMED BY: [address] [id number] BY: [address] [id number] (40289) Immature Grans (Abs) 0.0 {x10E3/uL} (Normal) Range: [...] 3.77-5.28 WBC 7.8 {x10E3/uL} (Normal) Range: 3.4-10.8 30-Sqh-150738:12 VITAMIN B-12 Comments: PATIENT NOT FASTINGPERFORMED BY: [employer] Qyfoqn55[address] [facility] [id number] BY: [facility] [id number] (CYANOCOBALAMIN) (83040) Vitamin B12 579 pg/mL (Normal) Range: 232-1245 23-Wvg-03202:31 LIPID PANEL (32258) Comments: PATIENT WAS FASTINGPERFORMED BY: Acesion PharmaMorristown Medical CenterGfnhhr0[address] [facility] [id number]; appt 01/02 LDL/HDL Ratio 1.9 {ratio} (Normal) [...] be changing to: Male Female 40 - 978984 50 - 910906 Triglycerides 145 mg/dL (Normal) Range: 0-149 Cholesterol, Total 240 mg/dL (Abnormal) Range: 100-199 31-Vkp-13579:31 METABOLIC PANEL, COMPREHENSIVE Comments: PATIENT WAS FASTINGPERFORMED BY: LabCoMorristown Medical CenterOybaad70[address] [facility] [id number] (92532) ALT (SGPT) 16 [iU]/L (Normal) Range: 0-32 [...] 8-27 Glucose 98 mg/dL (Normal) Range: 65-99 43-Mom-716582:13 METABOLIC PANEL, BASIC Comments: PATIENT NOT FASTINGPERFORMED BY: [employer] SolutionsFormerly [facility] [facility] [id number]; review on 01/02 (67684) Calcium 9.9 mg/dL (Normal) Range: 8.7-10.3 Carbon [...] 8-27 Glucose 98 mg/dL (Normal) Range: 65-99 00-Opi-216422:38 GGT (Gamma Glutamyl Comments: PATIENT NOT FASTINGPERFORMED BY: [facility] [facility] [id number] Transferase) (76679) GGT 20 [iU]/L (Normal) Range: 0-60 25-Goo-729112:38 Alkaline Phosphatase (64728) Comments: PATIENT NOT FASTINGPERFORMED BY: [address] [id number] Alkaline Phosphatase 131 [iU]/L (Abnormal) Range: 39-117 35-Zki-876231:38 THYROXINE FREE (55149) Comments: PATIENT NOT FASTINGPERFORMED BY: [address] [id number] T4,Free(Direct) 1.92 ng/dL (Abnormal) Range: 0.82-1.77 12-Brq-078577:38 FREE TRIDOTHYRONINE (T3) (83835) Comments: PATIENT NOT FASTINGPERFORMED BY: [address] [place] [id number] Triiodothyronine,Free,Serum 2.4 pg/mL (Normal) Range: 2.0-4.4 69-Ews-790743:38 VITAMIN B-12 (CYANOCOBALAMIN) Comments: PATIENT NOT FASTINGPERFORMED BY: [facility] Gdpyqi[address] [facility] [place] [id number] (06744) Vitamin B12 665 pg/mL (Normal) Range: 232-1245 37-Qaz-44072:06 VITAMIN B-12 (CYANOCOBALAMIN) Comments: PATIENT NOT FASTINGPERFORMED BY: [facility] Wzdcsb8371 [facility] [place] [id number] (65353) Vitamin B12 1301 pg/mL (Abnormal) Range: 232-1245 5-Irv-788609:25 Metabolic Panel, Comprehensive Comments: PATIENT NOT FASTINGPERFORMED BY: LabFormerly [facility] [facility] [id number]; review on 08/28 (50287) ALT (SGPT) 10 [iU]/L (Normal) Range: 0-32 [...] 8-27 Glucose 84 mg/dL (Normal) Range: 65-99 4-Uvt-873733:25 CBC WITH MANUAL DIFF (51407) Comments: PATIENT NOT FASTINGPERFORMED BY: [facility] Zzrjpm77[address] [facility] [id number] Immature Grans (Abs) 0.0 {x10E3/uL} (Normal) Range: [...] PANEL, COMPREHENSIVE Comments: PATIENT NOT FASTINGPERFORMED BY: [employer] Osinem0958 [facility] [id number] (37377) ALT (SGPT) 10 [iU]/L (Normal) Range: 0-32 [...] 88 mg/dL (Normal) Range: 65-99 :46 TSH (62415) Comments: 6 weeks; PATIENT NOT FASTINGPERFORMED BY: [employer] Ncvzwv6646 Oliva Beaumaris NetworksAtrium Health Huntersville [id number] TSH 2.420 {uIU/mL} (Normal) Range: 0.450-4.500 :23 LIPID PANEL (83680) Comments: PATIENT WAS FASTINGPERFORMED BY: Acesion PharmaMorristown Medical CenterZuykkl1543 [facility] [id number] LDL/HDL Ratio 1.6 {ratio_units} (Normal) Range: 0.0-3.2 [...] PANEL, COMPREHENSIVE Comments: PATIENT WAS FASTINGPERFORMED BY: [employer] Ddbznj6746 [facility] [id number] (70507) ALT (SGPT) 15 [iU]/L (Normal) Range: 0-32 [...] Glucose, Serum 96 mg/dL (Normal) Range: 65-99 62-Uwe-36012:23 CBC W/AUTO DIFF WBC (95808) Comments: PATIENT WAS FASTINGPERFORMED BY: [facility] Xlxztq5512 [facility] [id number] Immature Grans (Abs) 0.0 {x10E3/uL} (Normal) Range: [...] (Normal) Range: 3.4-10.8 :23 Vitamin D Hydroxy (84507) Comments: PATIENT WAS FASTINGPERFORMED BY: [facility] Vsyipb9124 [facility] [place] [id number] Vitamin D, 25-Hydroxy 41.5 ng/mL (Normal) Range: 30.0-100.0 Comments: Vitamin D deficiency has been defined by the Waymart ofMercy Health Clermont Hospitalcine and an Endocrine Society practice guideline as alevel of serum 25-OH vitamin D less than 20 ng/mL (1,2).The Endocrine Society went on to further define vitamin Dinsufficiency as a level between 21 and 29 ng/mL (2).1. IOM (Waymart of Medicine). 2010. Dietary reference intakes for calcium and D. [place]: The National AcademOrexo Press.2. Seng MF, Theresa ROMERO, Kieran KOWALSKI, et al. Evaluation, treatment, and prevention of vitamin D deficiency: an Endocrine Society clinical practice guideline. JCEM. 2010; 96(7):1911-30. :23 TSH (33484) Comments: PATIENT WAS FASTINGPERFORMED BY: [facility] Tchreb4984 [facility] [place] [place] [id number] TSH 0.429 {uIU/mL} (Abnormal) Range: 0.450-4.500 :23 VITAMIN B-12 (CYANOCOBALAMIN) Comments: PATIENT WAS FASTINGPERFORMED BY: [facility] Okxunp9103 [facility] [id number] (33014) Vitamin B12 553 pg/mL (Normal) Range: 211-946 9-Jxa-337044:52 CBC, PLATELETS & MANUAL DIFF Comments: PATIENT NOT FASTINGPERFORMED BY: [facility] Ecynxt4549 [facility] [place] [id number] (71922) Immature Grans (Abs) 0.0 {x10E3/uL} (Normal) Range: [...] 3.4-10.8 :09 Basic Metabolic Profile (BMP) Comments: [facility] Rdvdbmfkcn9924 [address] [place], [place], [id number] GAP 9 (Normal) Range: 5-15 CO2 29.0 [...] :09 CBC-Complete Blood Cnt No Diff Comments: [facility] Guftahrsrq25[address] [place], [place], [id number] MPV 9.1 fL (Normal) Range: 6.2-12.0 PLT [...] 5.7 K/mm3 (Normal) Range: 4.4-11.0 :53 Magnesium (16930) Comments: PATIENT NOT FASTINGPERFORMED BY: [employer] [facility] Wklbdx3037 [facility] [id number] Magnesium, Serum 1.9 mg/dL (Normal) Range: 1.6-2.3 :53 METABOLIC PANEL, COMPREHENSIVE Comments: PATIENT NOT FASTINGPERFORMED BY: [employer] [facility] Xdsenm1249 [facility] [id number]; non- emergent till apt (61397) ALT (SGPT) 18 [iU]/L (Normal) Range: 0-32 [...] Glucose, Serum 83 mg/dL (Normal) Range: 65-99 71-Hrx-14170:53 TSH (52625) Comments: PATIENT NOT FASTINGPERFORMED BY: [employer] Fvtntq6918 [facility] [id number] TSH 1.810 {uIU/mL} (Normal) Range: 0.450-4.500 74-Ueo-247360:15 Vitamin D Hydroxy (54716) Comments: PATIENT NOT FASTINGPERFORMED BY: [employer] [facility] Ccxkom1258 [facility] [id number] Vitamin D, 25-Hydroxy 28.3 ng/mL (Abnormal) Range: 30.0-100.0 Comments: Vitamin D deficiency has been defined by the Waymart ofMedicine and an Endocrine Society practice guideline as alevel of serum 25-OH vitamin D less than 20 ng/mL (1,2).The Endocrine Society went on to further define vitamin Dinsufficiency as a level between 21 and 29 ng/mL (2).1. IOM (Waymart of Medicine). 2010. Dietary reference intakes for calcium and D. [place]: The National Academies Press.2. Seng MF, Theresa ROMERO, Kieran KOWALSKI, et al. Evaluation, treatment, and prevention of vitamin D deficiency: an Endocrine Society clinical practice guideline. JCEM. 2010; 96(7):1911-30. 68-Uvr-112279:15 VITAMIN B-12 (CYANOCOBALAMIN) Comments: PATIENT NOT FASTINGPERFORMED BY: [employer] Yqamcv[address] [facility] [id number] (51845) Vitamin B12 447 pg/mL (Normal) Range: 211-946 03-Yoz-371465:15 CBC W/AUTO DIFF WBC Comments: PATIENT NOT FASTINGPERFORMED BY: [facility] Cmynlt9338 [facility] [id number] Information: SRC:ALONZO (32347) Immature Grans (Abs) 0.0 {x10E3/uL} (Normal) Range: [...] 3.77-5.28 WBC 5.6 {x10E3/uL} (Normal) Range: 3.4-10.8 01-Rut-887424:15 METABOLIC PANEL, COMPREHENSIVE Comments: PATIENT NOT FASTINGPERFORMED BY: [facility] Ebpmko1148 [facility] [id number] (36977) ALT (SGPT) 13 [iU]/L (Normal) Range: 0-32 [...] Glucose, Serum 87 mg/dL (Normal) Range: 65-99 42-Aus-519324:50 Urinalysis, Office (14468) UA - LEUKOCYTE ESTERASE Trace (Normal) UA - NITRITE Negative (Normal) URINE UROBILINGN TUNDE TIMED Normal mg/dL (Normal) UA - PROTEIN Negative mg/dL (Normal) UA - PH 5 (Abnormal) UA - BLOOD Negative (Normal) UA - SPECIFIC GRAVITY 1.025 (Normal) UA - KETONES Negative mg/dL (Normal) UA - BILIRUBIN Negative (Normal) UA - GLUCOSE Negative (Normal) 42-Kbw-010870:15 URINE CESAR CULTURE (TUNDE COL Comments: PATIENT NOT FASTINGPERFORMED BY: [facility] [facility] ServicesSSM [facility] [id number] COUNT) (98723) Result 1 MUG (Normal) Comments: Mixed urogenital floraGreater than 100,000 colony forming units per mL Urine Culture,Comprehensive Final report (Normal) 88-Plc-290788:29 URINE CESAR CULTURE-IDENTIFICATN Comments: PATIENT NOT FASTINGPERFORMED BY: [facility] BebestoreSSM [facility] [id number] Information: [id number] (99514) Result 1 MUG (Normal) Comments: Mixed urogenital flora1,000 Colonies/mL Urine Culture,Comprehensive Final report (Normal) 29-Udj-108658:29 URINE CESAR CULTURE-TUNDE COL Comments: PATIENT NOT FASTINGPERFORMED BY: [facility] Centers[facility] [id number] Information: SRC:[facility] [id number] COUNT (11481) Result 1 MUG (Normal) Comments: Mixed urogenital flora25,000-50,000 colony forming units per mL Urine Final report (Normal) Culture,Comprehensive 01-Rez-668962:07 Urinalysis, Office (45776) UA - LEUKOCYTE ESTERASE Small (Normal) UA - NITRITE Negative (Normal) URINE UROBILINGN TUNDE TIMED Normal mg/dL (Normal) UA - PROTEIN Negative mg/dL (Normal) UA - PH 5 (Abnormal) UA - BLOOD Hemolyzed Trace (Normal) UA - SPECIFIC GRAVITY 1.015 (Normal) UA - KETONES Negative mg/dL (Normal) UA - BILIRUBIN Negative (Normal) UA - GLUCOSE Negative (Normal) 7-Rpf-894029:02 URINE CESAR CULTURE (TUNDE Comments: PATIENT NOT FASTINGPERFORMED BY: Acesion PharmaMorristown Medical CenterOadsxe9951 [facility] [id number] Information: SRC:[facility] [id number] COL COUNT) (00261) Result 1 NG36 (Normal) Comments: No growth in 36 - 48 hours. Urine Culture,Comprehensive Final report (Normal) 17-Sep-20149:51 CBC With Differential/Platelet Comments: PATIENT NOT FASTINGPERFORMED BY: Acesion PharmaMorristown Medical CenterGefodq5956 [facility] [id number] Information: [id number] Immature Grans (Abs) 0.0 {x10E3/uL} (Normal) Range: [...] Panel (14) Comments: PATIENT NOT FASTINGPERFORMED BY: LabCoMorristown Medical CenterTrwmxm8104 [facility] [id number] ALT (SGPT) 11 [iU]/L (Normal) Range: 0-32 [...] (Normal) Range: 65-99 :13 SED RATE ERYTHROCYTE (67489) Comments: PATIENT WAS FASTINGPERFORMED BY: [employer] R&D6370 [facility] [id number] Sedimentation Rate-Westergren 6 mm/h (Normal) Range: 0-40 :13 C-REACTIVE PROTEIN (28006) Comments: PATIENT WAS FASTINGPERFORMED BY: Acesion PharmaMorristown Medical CenterZkdgqe9264 [facility] [id number] C-Reactive Protein, Quant 2.2 mg/L (Normal) Range: 0.0-4.9 :13 CBC W/AUTO DIFF WBC Comments: PATIENT WAS FASTINGPERFORMED BY: [facility] Hglxld5988 [facility] [id number] Information: [id number] (99814) Immature Grans (Abs) 0.0 {x10E3/uL} (Normal) Range: [...] 4.6 {x10E3/uL} (Normal) Range: 3.4-10.8 :13 TSH (75650) Comments: PATIENT WAS FASTINGPERFORMED BY: [facility] [id number] TSH 0.584 {uIU/mL} (Normal) Range: 0.450-4.500 03-Elx-374329:42 Urinalysis, Office (84838) UA - LEUKOCYTE ESTERASE Small (Normal) UA - NITRITE Negative (Normal) URINE UROBILINGN TUNDE TIMED Normal mg/dL (Normal) UA - PROTEIN Negative mg/dL (Normal) UA - PH 6 (Abnormal) UA - BLOOD Negative (Normal) UA - SPECIFIC GRAVITY 1.025 (Normal) UA - KETONES Negative mg/dL (Normal) UA - BILIRUBIN Negative (Normal) UA - GLUCOSE Negative (Normal) 27-Hmo-923374:43 URINE CESAR CULTURE (TUNDE Comments: PATIENT NOT FASTINGPERFORMED BY: [employer] [facility] [id number] Information: SRC:UR [id number] COL COUNT) (43605) Result 1 MUG (Normal) Comments: Mixed urogenital flora25,000-50,000 colony forming units per mL Urine Final report (Normal) Culture,Comprehensive :13 Vitamin D Hydroxy (14305) Comments: PATIENT WAS FASTINGPERFORMED BY: [facility] [id number] Vitamin D, 25-Hydroxy 38.7 ng/mL (Normal) Range: 30.0-100.0 Comments: Vitamin D deficiency has been defined by the Waymart ofMedicine and an Endocrine Society practice guideline as alevel of serum 25-OH vitamin D less than 20 ng/mL (1,2).The Endocrine Society went on to further define vitamin Dinsufficiency as a level between 21 and 29 ng/mL (2).1. IOM (Waymart of Medicine). 2010. Dietary reference intakes for calcium and D. [place]: The National Academies Press.2. Seng MF, Theresa ROMERO, Kieran KOWALSKI, et al. Evaluation, treatment, and prevention of vitamin D deficiency: an Endocrine Society clinical practice guideline. JCEM. 2010; 96(7):1911-30. :13 LIPID PANEL (72489) Comments: PATIENT WAS FASTINGPERFORMED BY: [employer] R&D[address] [facility] [id number] LDL/HDL Ratio 1.8 {ratio_units} (Normal) Range: 0.0-3.2 [...] PANEL, COMPREHENSIVE Comments: PATIENT WAS FASTINGPERFORMED BY: [employer] R&D[address] [facility] [id number] (15776) ALT (SGPT) 14 [iU]/L (Normal) Range: 0-32 [...] Glucose, Serum 86 mg/dL (Normal) Range: 65-99 88-Lsg-44252:13 VITAMIN B-12 (CYANOCOBALAMIN) Comments: PATIENT WAS FASTINGPERFORMED BY: [facility] CentersMorristown Medical CenterGewtat4242 [facility] [id number] (07577) Vitamin B12 >1999 pg/mL (Abnormal) Range: 211-946 66-Qbc-222210:00 Metabolic Panel, Basic Comments: 6 weeks; PATIENT NOT FASTINGPERFORMED BY: [facility] CentersMorristown Medical CenterDotowi0613 [facility] [id number] Information: [id number] (55115) Calcium, Serum 9.7 mg/dL (Normal) Range: 8.6-10.2 [...] Glucose, Serum 90 mg/dL (Normal) Range: 65-99 09-Rul-919858:24 URINE CESAR CULTURE-IDENTIFICATN Comments: PATIENT NOT FASTINGPERFORMED BY: [place] 5170570 [facility] [id number] Information: [id number] (96764) Result 1 ENTEGA (Abnormal) Comments: Enterococcus hmuhussukj71,000-25,000 colony forming units per mLNote: For enterococci with intrinsic intermediate-level resistance tovancomycin, such as E. casseliflavus and E. gallinarum, VRE infection control measures are not applicable, per the CLSI (formerly NCCLS).For Enterococcus species, cephalosporins, aminoglycosides (except forhigh-level resistance screening), clindamycin, and trimethoprim-curtis lfamethoxazole are not effective clinically. Fluoroquinolones areused primarily for treating urinary tract infections. (CLSI, J441-Z43,2009) S = Susceptible; I = Intermediate; R = Resistant * P = Positive; N = Negative MICS are expressed in micrograms per mL Antibiotic RSLT#1 RSLT#2 RSLT#3 RSLT#4Ciprofloxacin SGentami lien 500 SLevofloxacin SNitrofurantoin IPenicillin SStreptomycin 2000 STetracycline SVancomycin R Urine Final report (Abnormal) Culture,Comprehensive 94-Eoe-872957:51 METABOLIC PANEL, Comments: PATIENT NOT FASTINGPERFORMED BY: [facility] [id number] Information: [id number] COMPREHENSIVE (26548) ALT (SGPT) 20 [iU]/L (Normal) Range: 0-32 [...] Glucose, Serum 80 mg/dL (Normal) Range: 65-99 90-Asy-023698:04 Microscopic Examination Comments: PATIENT NOT FASTINGPERFORMED BY: JRapid70 [facility]ueAt[facility] [id number] Bacteria Few (Normal) Mucus Threads Present (Normal) Epithelial Cells (non renal) 0-10 {/hpf} (Normal) Range: 0 - 10 RBC None seen {/hpf} (Normal) Range: 0 - 2 WBC None seen {/hpf} (Normal) Range: 0 - 5 16-Lef-804576:04 URINE CESAR CULTURE (TUNDE COL Comments: PATIENT NOT FASTINGPERFORMED BY: [employer] R&D6370 [facility]At[facility] [id number] COUNT) (62522) Antimicrobial MIHEAD (Normal) Comments: S = Susceptible; [...] mL (Abnormal) Urine Final report Culture,Comprehensive (Abnormal) 29-Ifo-190197:04 URINALYSIS, W/ MICRO Comments: PATIENT NOT FASTINGPERFORMED BY: [facility] [id number] Information: SRC: [id number] (61316) Microscopic Examination See below: (Normal) Comments: Microscopic was indicated and was performed. Microscopic Examination MICRON (Normal) Comments: Microscopic follows if indicated. Nitrite, Urine Negative (Normal) Bilirubin Negative (Normal) Urobilinogen,Semi-Qn 0.2 mg/dL (Normal) Range: 0.0-1.9 Ketones Negative (Normal) Occult Blood Negative (Normal) Glucose Negative (Normal) Protein Negative (Normal) WBC Esterase Negative (Normal) Appearance Clear (Normal) Urine-Color Yellow (Normal) pH 6.0 (Normal) Range: 5.0-7.5 Specific [place] 1.010 (Normal) Range: 1.005-1.030 03-Snf-492925:00 METABOLIC PANEL, Comments: PATIENT NOT FASTINGPERFORMED BY: [facility]6[address] [facility] [id number] Information: [id number] COMPREHENSIVE (04793) ALT (SGPT) 11 [iU]/L (Normal) Range: 0-32 [...] Glucose, Serum 84 mg/dL (Normal) Range: 65-99 13-Gsf-63096:26 CMP Comments: will review at 11/05 appt [...] CHOL 200 mg/dL (Normal) Comments: <200 mg/dL Cqtpiznqa034-678 mg/dL Borderline>240 mg/dL High Risk :26 TSH 1.85 {uIU/mL} (Normal) Range: 0.358-3.74 :26 VITD 72.9 mg/mL (Normal) Comments: will review at - appt Comments: Vitamin D 25(OH) Status RangeDeficiency <20 ng/mL (50nmol/L)Insuffciency 20 - 30 ng/mL (50 - 75 nmol/L)Sufficiency 30 - 100 ng/mL (75 - 250 nmol/L)Toxicity >100 ng/mL (>250 nmol/L) 6-Coj-643101:05 Urinalysis, Office (52281) UA - LEUKOCYTE ESTERASE Negative (Normal) UA - NITRITE Negative (Normal) URINE UROBILINGN TUNDE TIMED 2 mg/dL (Normal) UA - PROTEIN 30 mg/dL (Normal) UA - PH 6.0 (Normal) Comments: 5.5 UA - BLOOD Negative (Normal) UA - SPECIFIC GRAVITY 1.030 (Abnormal) UA - KETONES Small mg/dL (Normal) UA - BILIRUBIN Negative (Normal) UA - GLUCOSE Negative (Normal) 6-Esz-898303:33 URINE CESAR CULTURE-TUNDE COL Comments: PERFORMED BY: LabCoMorristown Medical CenterPjgqrt5585 [facility] [id number] COUNT (40860) Result 1 MUG (Normal) Comments: Mixed urogenital flora10,000-25,000 colony forming units per mL Urine Final report (Normal) Culture,Comprehensive 44-Jee-816190:52 URINE CESAR CULTURE-TUNDE COL Comments: PATIENT NOT FASTINGPERFORMED BY: LISBETH [facility] Gwkqfu[address] [place] [id number] Information: SRC:UR [id number] COUNT (29182) Antimicrobial MIHEAD (Normal) Comments: S = Susceptible; [...] CHOL 203 mg/dL (Abnormal) Comments: <200 mg/dL Rglrnomwm940-684 mg/dL Borderline>240 mg/dL High Risk :47 TSH 1.52 {uIU/mL} (Normal) Range: 0.358-3.74 :47 VITD 59.3 mg/mL (Normal) Comments: Vitamin D 25(OH) Status RangeDeficiency <20 ng/mL (50nmol/L)Insuffciency 20 - 30 ng/mL (50 - 75 nmol/L)Sufficiency 30 - 100 ng/mL (75 - 250 nmol/L)Toxicity >100 ng/mL (>250 nmol/L) :44 CBC, PLATELETS & AUT DIFF Comments: PATIENT NOT FASTINGPERFORMED BY: LabCoMorristown Medical CenterEygfze2562 [facility] [id number] Information: [id number] (49770) Immature Grans (Abs) 0.0 {x10E3/uL} (Normal) Range: [...] (Normal) Range: 3.4-10.8 :44 FOLIC ACID SERUM (30023) Comments: PATIENT NOT FASTINGPERFORMED BY: Acesion PharmaMorristown Medical CenterTpsppr3602 [facility] [id number] Folate (Folic Acid), Serum 14.4 ng/mL (Normal) Comments: A serum folate concentration of less than 3.1 ng/mL isconsidered to represent clinical deficiency. :44 RETICULOCYTE COUNT MANUL Comments: PATIENT NOT FASTINGPERFORMED BY: Recommerce SolutionsFormerly [facility]6[address] [facility] [id number] (79797) Reticulocyte Count 1.1 % (Normal) Range: 0.6-2.6 :44 LDH (LD) (LACTATE DEHYDROGENASE) Comments: PATIENT NOT FASTINGPERFORMED BY: [facility] SolutionsFormerly [facility]6[address] [facility] [id number] (27796) LDH 250 [iU]/L (Abnormal) Range: 0-214 :44 IRON BINDING CAPACITY (TIBC) Comments: PATIENT NOT FASTINGPERFORMED BY: [employer] SolutionsFormer[facility]6[address] [facility] [id number] (60335) Iron Saturation 16 % (Normal) Range: 15-55 Iron, Serum 52 ug/dL (Normal) Range: 35-155 UIBC 270 ug/dL (Normal) Range: 150-375 Iron Bind.Cap.(TIBC) 322 ug/dL (Normal) Range: 250-450 :44 FERRITIN (19937) Comments: PATIENT NOT FASTINGPERFORMED BY: LabCoMorristown Medical CenterLpovdr1482 [facility] [id number] Ferritin, Serum 42 ng/mL (Normal) Range: 15-150 [...] 17-Aug-20129:50 TSH 1.02 {uIU/mL} (Normal) Range: 0.358-3.74 11-Ifg-075425:02 BILAT SCRN DIGITAL & CAD Radiology Report [...] Rowe M.D.July 23, 2012 at 2:35:49 PM [id number] Signed GP/GP If you are the referring physicia n and would like to consult with theradiologist who provided this interpretation, please contact Ofelia Rodriguez at [phone]. If this radiologist is unavailable, youwill be directed to [facility] radiologist to assist. If you are a patient with a question regarding this report, pleasecontactyour referring physician directly. Professional Interpretation Provided By: [employer], Phone , These documents contain legally protected [...] 3 1439 Sign by: Dashawn Rowe MD 9-Uuo-222568:59 KIDNEY Radiology Report See Note (Normal) Comments: [...] Welsh M.D.July 11, 2012 at 5:00:06 PM [id number] Signed TT/TT If you are the referring physician and would like to consult with theradiologist who provided this interpretation, please contact Brittney Mccormack M.D. at [phone]. If this radiologist is unavailable, youwillbe directed to another radiologist to assist. If you are a patient with a question regarding this report, pleasecontactyour referring physician directly. Professional Interpretat ion Provided By: [employer], Phone , These documents contain legally protected and confidential healthinformation intended only for the use of the individual or entity [facility]. If you [...] MD on 07/11/121825 Sign by: Blaise CARRANZA,Brittney 5-Lhc-350867:59 TRANSVAGINAL NON- Radiology Report See Note (Normal) [...] Welsh M.D.July 11, 2012 at 4:45:28 PM [id number] Signed TT/TT If you are the referring physician and would like to consult with sebastian dunlap who provided this interpretation, please contact Brittney Mccormack M.D. at [phone]. If this radiologist is unavailable, youwillbe directed to another radiologist to assist. If you are a p atient with a question regarding this report, pleasecontactyour referring physician directly. Professional Interpretation Provided By: [employer], Phone , These documents contain legally protected [...] CHOL 210 mg/dL (Abnormal) Comments: <200 mg/dL Uhvzwmhnb139-745 mg/dL Borderline>240 mg/dL High Risk :44 MG [...] to well characterize low-attenuation left renal lesion,probably business development representative of a cyst. Consider follow-up renal sonographyforfurther evaluation as clinically warranted. Signed:Matilda AvilesJuly 04, 2012 at 5:12:21 PM [id number] Signed DL/DL If you are the referring physician and would like to consult with theradiologist who provided this interpretation, please contact Ofelia Kyle at [phone]. If this radiologist is unavailable, youwillbe directed to another radiologist to assist. If you are a patient with a question regarding this report, pleasecontactyo ur referring physician directly. Professional Interpretation Provided By: [employer], Phone , These documents contain legally protected [...] on 07/04/121714 Sign by: Salinas Champion MD 12-Dqb-667552:18 CRE GFRAA 41 mL/min (Abnormal) GFR 34 mL/min (Abnormal) CREAT 1.6 mg/dL (Abnormal) Range: 0.6-1.0 57-Zpq-223491:15 BMP GAP 7 (Normal) Range: 5-15 CO2 [...] 7-18 GLU 80 mg/dL (Normal) Range: 70-110 90-Sud-631586:15 TSH 3.05 {uIU/mL} (Normal) Range: 0.358-3.74 :22 B12 577 pg/mL (Normal) Range: 211-946 Comments: Performed at: - Lab[address] [id number] Director: Patito Segovia MD, Phone: [phone] :[phone] CBCMD RBCM NORM C+C {NORMAL} (Normal) [...] D deficiency has been defined by the Waymart ofMedicine and an Endocrine Society practice guideline as alevel of serum 25-OH vitamin D less than 20 ng/mL (1,2).The Endocrine Society went on to further define vitamin Dinsufficiency as a level between 21 and 29 ng/mL (2).1. IOM (Waymart of Medicine). 2010. Dietary reference intakes for calcium and D. [place]: The National AcademOrexo Press.2. Seng MF, Theresa ROMERO, Kieran KOWALSKI, et al. Evaluation, treatment, and prevention of vitamin D deficiency: an Endocrine Society clinical practice guideline. JCEM. 2010; 96(7):1911-30. 96-Idh-107654:37 BREAST UNILATERAL Radiology Report See Note (Normal) [...] Category 3: Probably Benign Finding - Initial Vqgir-LwjhjrgoQwognc-st Suggested. Signed:Dashawn Rowe M.D.November 09, 2011 at 2:49:17 PM [id number] Signed GP/GP If you are the referring physician and would like to consult with theradiologist who provided this interpretation, please contact Herb blake M.D. at [phone]. If this radiologist is unavailable, youwill be [...] 11/09/11 1456 Sign by: Dashawn Rowe MD 52-Ivg-116229:47 BREAST UNILATERAL Radiology Report See Note (Normal) [...] Category 3: Probably Benign Finding - Initial Xcddu-RmedlcutBxednn-gh Suggested. To consult with a radiologist regarding this report, please call our [id number] line @ Dictated on 06/22/11 1428 by Wendy Rowe MD on 06/22/11 1547 by ITS IMPORTSign by Dashawn Rowe MD on 06/22/11 1548 Sign by: ___ Dashawn Rowe MD 49-Kaw-205239:47 UNILAT LT DIAG DIGITAL & CAD Radiology [...] radiologist regarding this report, please call our 14P3tuhqyli line @ Dictated on 06/22/11 1357 by Wendy Rowe MD on 1450 by ITS IMPORTSign by Dashawn Rowe MD on 06/22/11 1451 Sign by: Dashawn Rowe MD 3-Bqv-617331:14 CERV SPINE,MIN 4 VIEWS Radiology Report See [...] radiologist regarding this report, please call our [id number] line @ Dictated on 04/13/11 1408 by [...] or = 500 mg/dL :38 VIT [place], [address] 47.8 ng/mL (Normal) Range: 30.0-100.0 Comments: Vitamin D deficiency has been defined by the Waymart ofMedicine and an Endocrine Society practice guideline as alevel of serum 25-OH vitamin D less than 20 ng/mL (1,2).The Endocrine Society went on to further define vitamin Dinsufficiency as a level between 21 and 29 ng/mL (2).1. IOM (Waymart of Medicine). 2011. Dietary reference intakes for calcium and D. [place]: The National Academies Press.2. Seng MF, Theresa ROMERO, Kieran KOWALSKI, et al. Evaluation, treatment, and prevention of vitamin D deficiency: an Endocrine Society clinical practice guideline. JCEM. 2010; 96(7): 1911-30.Performed at: [address] [id number] Director: Patito Segovia MD, Phone: [phone] :[phone] VITAMIN B12 781 pg/mL (Normal) Range: [...] 02/02/11 0843 Sign by: Dashawn Rowe MD 11-Iat-770783:03 Thin prep Pap Comments: Source.............Cervical;EndocervicalNo. of containers..01 CYTYC Thin Prep VialPERFORMED BY: [facility] [address] [facility] [place] [id number] Information: [id number] ([id number]) Note: PAPSMR (Normal) Comments: The Pap smear [...] ; Routine gynecolog ical examina Deidre Aguila [employer] Web Developer (ASCP) 78-Yvu-912617:01 BILAT SCRN DIGITAL & CAD Radiology Report [...] 11/10/10 1453 Sign by: Dashawn Rowe MD 88-Wdj-990740:16 COMP METABOLIC Comments: appt 11/05/10 GAP 10 [...] 7-18 GLU 79 mg/dL (Normal) Range: 70-110 90-Zph-981066:16 LIPID VLDL 24 mg/dL (Normal) Range: 5-40 [...] 200-240 mg/dL Borderline >240 mg/dL High Risk 93-Tgj-742725:16 TSH 0.99 {uIU/mL} (Normal) Range: 0.358-3.74 80-Gnf-142265:16 VIT D,25 05355 45.6 ng/mL (Normal) Range: 32.0-100.0 Comments: Recent studies consider the lower limit of 32.0 ng/mL to zoraida threshold for optimal health.Everardo HEREDIA. J Nutr. 2004;135(2):317-22.Performed at: [facility] [place] [address]Lab Director: Patito Segovia MD, Phone: [phone] 01-Scl-022376:16 VITAMIN B12 582 pg/mL (Normal) Range: 254-1320 Comments: There is a low frequency possibility that high titers ofintrinsic blocking antibodies may not be completely inactivated during the reaction pretreatment stepof this testing method. If test results are i n conflictwith the clinical diagnosis, patient should be testedfor the presence of intrinsic factor blocking antibodies. 35-Cmx-274032:20 CBCD,SMEAR DIFF PLT EST SeeNote (Normal) Comments: [...] 4.2-5.4 WBC 5.4 K/mm3 (Normal) Range: 4.4-11.0 96-Aae-092518:20 COMP METABOLIC GAP 9 (Normal) Range: 5-15 [...] 7-18 GLU 92 mg/dL (Normal) Range: 70-110 72-Tne-105155:20 LIPID HDL 63 mg/dL (Normal) Comments: Reference [...] {uIU/mL} (Normal) Range: 0.358-3.74 :20 VIT D,25 58959 43.2 ng/mL (Normal) Range: 32.0-100.0 Comments: Recent studies consider the lower limit of 32.0 ng/mL to zoraida threshold for optimal health.Mcgee . J Nutr. 2004;135(2):317-22.Performed at: [place] [address]Lab Director: Patito Segovia MD, Phone: [phone] :[phone] VITAMIN B12 516 pg/mL (Normal) Range: 254-1320 Comments: There is a low frequency possibility that high titers ofintrinsic blocking antibodies may not be completely inactivated during the reaction pretreatment stepof this testing method. If test results are i n conflictwith the clinical diagnosis, patient should be testedfor the presence of intrinsic factor blocking antibodies. :44 VIT D,25 37022 38.6 ng/mL (Normal) Range: 32.0-100.0 Comments: Recent studies consider the lower limit of 32.0 ng/mL to zoraida threshold for optimal health.Mcgee BW. J Nutr. 2004;135(2):317-22.Performed at: [address] [address]Lab Director: Patito Segovia MD, Phone: [phone] :44 VITAMIN B12 398 pg/mL (Normal) Range: [...] intrinsic factor blocking antibodies. :24 VITD 1,25 71247 57.3 pg/mL (Normal) Range: 10.0-75.0 Comments: Performed at: [address] [id number] Director: Roderick Ramirez MD, Phone: [phone] 64-Nex-928705:26 CBCD,SMEAR DIFF RED CELL MORPH SeeNote {NORMAL} [...] Report See Note (Normal) Comments: Exam Number: [id number] CLINICAL:69 year old female with numbness in [...] There is a fetalconfiguration of the right CERTIFIED NURSES' AIDE. No definite P1 segment connectingthe artery to the basilar artery is identified. IMPRESSION:No demonstrated aneurysm. Anatomic variations of the [place]. 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 The rightinternal carotid arteries supplies the left [place] territory, and islarger than the left internal carotid. 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 Reported By: DOMENICA MCGARRY M.D. 26-Qim-328275:41 BRAIN W/WO CONTRAST Radiology See Note Comments: Exam Number: [id number] CLINICAL: MRI BRAIN WITHOUT AND WITH CONTRAST [...] mild degenerative remodeling of the mandibular condyles.ADDENDUM: [id number] MRI/BRWW CLINICAL: MRI BRAIN WITHOUT AND WITH [...] CHOL 188 mg/dL (Normal) Comments: <200 mg/dL Erckdigax724-652 mg/dL Borderline>240 mg/dL High Risk HDL 54 [...] Range: 0.358-3.74 5 (Normal) :3 VIT D,25 00995 29.3 ng/mL (Abnormal) Range: 32.0-100.0 5 Comments: Recent studies consider the lower limit of 32.0 ng/mL to zoraida threshold for optimal health.Everardo HEREDIA. J Nutr. 2004;135(2):317-22.Performed at: [email or web address] [place] [address]Lab Director: Patito Segovia MD, Phone: [phone] :[phone] VITAMIN B12 158 pg/mL (Abnormal) Range: [...] Report See Note (Normal) Comments: Exam Number: [id number] CLINICAL:Right upper quadrant pain CT ABDOMEN WITH [...] parapelvic renal cysts. Reported By: PRADIP SALVADOR 78-Fjq-759543:29 BMP BUN 16 mg/dL (Normal) Range: 7-18 [...] mg/dL (Normal) Range: 70-110 12-Jun-20099:37 VIT D,25 35079 26.3 ng/mL (Abnormal) Range: 32.0-100.0 Comments: Recent studies consider the lower limit of 32.0 ng/mL to zoraida threshold for optimal health.Everardo HEREDIA. J Nutr. 2004;135(2):317-22.Performed at: [address] [id number] Director: Ade Rubio MD 51-Uzl-761927:36 GALLBLADDER (HP) Radiology Report See Note (Normal) Comments: Exam Number: [id number] LIMITED ABDOMINAL ULTRASOUND FOR GALLBLADDER HISTORYChest pain. [...] kidneyis suggested. Reported By: DOMENICA GATES M.D. 0-Qva-777017:21 Lipase (54865) Comments: PATIENT NOT FASTINGPERFORMED BY: [address] [id number] Lipase, Serum 42 U/L (Normal) Range: 0-59 8-Iof-548837:21 Amylase (46222) Comments: PATIENT NOT FASTINGPERFORMED BY: [place] [address] [facility] [id number] Amylase, Serum 54 U/L (Normal) Range: 31-124 :21 CBC WITH MANUAL DIFF Comments: PATIENT NOT FASTINGPERFORMED BY: [facility] [facility] [id number] Information: [id number] (31325) Baso (Absolute) 0.1 {x10E3/uL} (Normal) Range: 0.0-0.2 [...] COMPREHENSIVE Comments: PATIENT NOT FASTINGPERFORMED BY: [facility] [id number] (03120) ALT (SGPT) 15 [iU]/L (Normal) Range: 0-40 [...] Comments: DR DAVIS ORDERED CMP,CBCMD,CAROL,RF,TSH,CRP,SED,CCP,LIPIDDR DONALDLANKIORDEREDCMP,CBCD,CRP,SED,VITD,CCP,HEPBSAB,HEPBSAG,HEPC,CAROL,RF,HEPBCORE IGM,[place] [id number] CAROL-DIRECT SeeNote (Normal) Comments: Result: Negative :48 ANTI-CCP 167418 4 {units} (Normal) Comments: DR DAVIS ORDERED [...] mm/h (Normal) Range: 0-30 :48 HB CORE [id number] SeeNote (Normal) Comments: DR DAVIS ORDERED CMP,CBCMD,CAROL,RF,TSH,CRP,SED,CCP,LIPIDDR VELLANKIORDEREDCMP,CBCD,CRP,SED,VITD,CCP,HEPBSAB,HEPBSAG,HEPC,CAROL,RF,HEPBCORE IGM,UA Comments: Result: Negative Performed At: [facility] [place], [place] [id number] At: [facility] [place] [phone] :48 HBsAg Comments: DR DAVIS ORDERED CMP,CBCMD,CAROL,RF,TSH,CRP,SED,CCP,LIPIDDR [...] of antibody present. :48 HEP C AB 870488 0.1 (Normal) Comments: DR DAVIS ORDERED CMP,CBCMD,CAROL,RF,TSH,CRP,SED,CCP,LIPIDDR [...] VELLANKIORDEREDCMP,CBCD,CRP,SED,VITD,CCP,HEPBSAB,HEPBSAG,HEPC,CAROL,RF,HEPBCORE IGM,UA Range: 0.358-3.74 :48 VIT D,25 01220 18.0 ng/mL (Abnormal) Comments: DR DAVIS ORDERED CMP,CBCMD,CAROL,RF,TSH,CRP,SED,CCP,LIPIDDR VELLANKIORDEREDCMP,CBCD,CRP,SED,VITD,CCP,HEPBSAB,HEPBSAG,HEPC,CAROL,RF,HEPBCORE IGM,UA Range: 32.0-100.0 Comments: Recent studies consider the lower limit of 32.0 ng/mL to zoraida threshold for optimal health.Everardo HEREDIA. J Nutr. 2004;135(2):317-22. 6-Xjz-065598:10 BILAT SCRN DIGITAL & CAD Radiology Report See Note (Normal) Comments: Exam Number: [id number] MAMMOGRAM, BILATERAL SCREENING DIGITAL AND CAD HISTORYRoutine [...] (MQSA). The mammograms werealso examined with c [employer]uter-aided detection software ([employer], [employer] Reported By: DOMENICA GATES M.D. 2-Msk-840071:09 SPINE,LUMBAR (ROUTINE) Radiology Report See Note (Normal) Comments: Exam Number: [id number] CLINICAL:68-year-old female with low back pain for [...] Report See Note (Normal) Comments: Exam Number: [id number] CLINICAL DATALow back pain, flank pain, right [...] disc disea se involving multiple levels from X7ziemvol S1. There is degenerative hypertrophic change of [...] Report See Note (Normal) Comments: Exam Number: [id number] DORSAL SPINE Three images of the dorsal [...] middle dorsal spine. Reported By: HEATHER JACKSON 7-Yal-440873:22 Urine Culture,Comprehensive Comments: Clinical Information: SRC:UR PERFORMED BY: [facility] [facility] [id number] Result 1 NG36 (Normal) Comments: No growth in 36 - 48 hours. Urine Culture,Comprehensive Final report (Normal) 3-Bby-372183:18 PELVIS WITHOUT IV CONTRAST Radiology Report See Note (Normal) Comments: Exam Number: [id number] CT SCANS OF ABDOMEN AND PELVIS HISTORYThe [...] Report See Note (Normal) Comments: Exam Number: [id number] CT SCANS OF ABDOMEN AND PELVIS HISTORYThe [...] the spine. Reported By: DOMENICA GATES M.D. 2-Wme-815184:1 C-REACTIVE PROT 4.05 mg/L (Abnormal) Range: 0.0-3.0 [...] 6.4-8.2 GLU 84 mg/dL (Normal) Range: 70-110 5-Pjl-530390:10 ESR SED RATE 14 mm/h (Normal) Range: 0-30 8-Cpy-245018:40 Urinalysis, Office (35221) UA - BILIRUBIN Negative (Normal) UA - BLOOD Non Hemolyzed Trace (Normal) UA - GLUCOSE Negative (Normal) UA - KETONES Negative mg/dL (Normal) UA - LEUKOCYTE ESTERASE Negative (Normal) Comments: aw UA - NITRITE Negative (Normal) UA - PH 6.0 (Normal) UA - PROTEIN Negative mg/dL (Normal) UA - SPECIFIC GRAVITY 1.010 (Normal) URINE UROBILINGN TUNDE TIMED Normal mg/dL (Normal) 8-Zqg-487400:28 URINE CESAR CULTURE-TUNDE COL Comments: PATIENT NOT FASTINGClinical Information: SRC:UR ADD [id number] PERFORMED BY: [facility] [address] [facility] [id number] COUNT (45231) Result 1 MUG (Normal) Comments: Mixed urogenital flora10,000-25,000 colony forming units per mL Urine Final report (Normal) Culture,Comprehensive 9-Nir-388407:09 Urinalysis, Office (02318) UA - BILIRUBIN Negative (Normal) UA - [...] mg/dL VLDL 16 mg/dL (Normal) Range: 5-40 7-Dgh-582137:59 LQD PAP [id number] Comments: CYTOLOGY INFORMATION:- CLINICAL INFORMATION: POSTMENOPAUSAL- DATE LMP/MENOPAUSE: MENOPAUSE- COLLECTION VIAL: Thin Prep Vial- [employer] ARCHITECT SOURCE: CERVICAL/ENDOCERVICAL- COLLECTION TECHNIQUE: BRUSH/SPATULA ADEQ Comment (Normal) Comments: Satisfactory for evaluation. Endocervical and/or squamous metaplasticcells (endocervical component) are present. COMM . (Normal) DIAGN Comment (Normal) Comments: NEGATIVE FOR INTRAEPITHELIAL LESION AND MALIGNANCY. HPV RFLX Comment (Normal) Comments: The HPV DNA reflex criteria were not met with this specimenresult therefore, no HPV testing was performed. .Performed At: [address] [id number] PAPR Comment (Normal) Comments: The Pap smear is a screening test designed to aid in thedetection of premalignant and malignant conditions of theuterine cervix. It is not a diagnostic procedure andshould not be used as the sole means of detecting cervicalcancer. Both false-positive and false-negative reports dooccur. . PERFORM Comment (Normal) Comments: Diandra Bee, Magento Web Developer (ASCP) 43-Tbe-141364:36 DEXA BONE DENSITY STUDY (HP) Radiology Report See Note (Normal) Comments: Exam Number: [id number] BONE DENSITOMETRY TECHNIQUE Bone densitometry of the [...] within normallimits. Reported By: DOMENICA GATES M.D. 90-Xon-09665:55 COMP METABOLIC A/G 1.3 {RATIO} (Normal) Range: [...] T PROT 6.1 g/dL (Abnormal) Range: 6.4-8.2 84-Hbu-509129:12 FUNEZ A AB 444261 FUNEZ A TYPE 10 <1:8 (Normal) FUNEZ [...] and its performancecharacteristics have been determined by [employer]. Performance characteristics refer tothe analytical performance of the test. FUNEZ A TYPE 2 <1:8 (Normal) FUNEZ A TYPE 4 <1:8 (Normal) FUNEZ A TYPE 7 <1:8 (Normal) FUNEZ A TYPE 9 <1:8 (Normal) :12 ESR SED RATE 14 mm/h (Normal) Range: 0-30 16-Tsg-969182:12 RA LATEX 6502 7.1 {IU/mL} (Normal) Range: 0.0-13.9 Comments: Performed At: [facility] [place], [place] [id number] At: [facility] [place], [place] [id number] 29-Zsv-051221:12 TSH 0.16 {uIU/mL} (Abnormal) Range: 0.34-4.82 82-Dvn-470817:21 PELVIS WITH CONTRAST Radiology Report See Note (Normal) Comments: Exam Number: [id number] CT ABDOMEN AND PELVIS WITH CONTRAST. CLINICAL [...] pericardial effusion. Reported By: TODD KENNEDY M.D. 18-Ovy-106794:11 ABDOMEN WITH CONTRAST Radiology Report See Note (Normal) Comments: Exam Number: [id number] CT ABDOMEN AND PELVIS WITH CONTRAST. CLINICAL [...] pericardial effusion. Reported By: TODD KENNEDY M.D. 85-Liv-536470:38 MARCUS 45 U/L (Normal) Range: 25-115 10-Ctp-597038:38 CBCD,SMEAR DIFF BAND 1 % (Normal) Range: [...] 47-70 WBC 5.9 K/mm3 (Normal) Range: 4.4-11.0 10-Rsu-566755:38 LIPASE 190 U/L (Normal) Range: 114-286 39-Zqj-088322:45 BILAT SCRN DIGITAL & CAD Radiology Report See Note (Normal) Comments: Exam Number: [id number] MAMMOGRAM, BILATERAL SCREENING DIGITAL AND CAD HISTORYRoutine [...] werealso exam ined with computer-aided detection software ([employer], [employer] Reported By: DOMENICA GATES M.D. 33-Wef-34761:33 CHEST W/WO CONTRAST Radiology Report See Note (Normal) Comments: Exam Number: [id number] CT SCAN OF CHEST HISTORYLung nodule. Consecutive [...] mg/dL VLDL 20 mg/dL (Normal) Range: 5-40 78-Zep-61525:07 TSH 0.40 {uIU/mL} (Normal) Range: 0.34-4.82 Plan [...] Indication: Chest pain Chest pain : Reviewed Lithograph Press Feeder Letter Indication: Chest pain Osteoarthritis, unspecified osteoarthritis [...] Hypercholesterolemia Planned Observations CBC W/AUTO DIFF WBC (22388)Indication: Prolonged QT interval On: :18 Request METABOLIC PANEL, COMPREHENSIVE (69220)Indication: Prolonged QT interval On: 8-Viu-067850:18 Request VITAMIN B-12 (CYANOCOBALAMIN) (64535)Indication: DEFICIENCY, B-COMPLEX NEC On: :18 Request TSH (12783)Indication: Acquired hypothyroidism On: :17 Request LIPOPROTEIN, BLD, BY NMR (38929)Indication: Hypercholesterolemia On: :17 Request VITAMIN B-12 (CYANOCOBALAMIN) (19424)Indication: DEFICIENCY, B-COMPLEX NEC On: :18 Request LIPID PANEL (53039)Indication: Hypercholesterolemia On: :18 Request CBC W/AUTO DIFF WBC (26037)Indication: Right flank pain On: :17 Request METABOLIC PANEL, COMPREHENSIVE (84772)Indication: Right flank pain On: 2-Bbx-496992:17 Request Vitamin D Hydroxy (37209)Indication: Vitamin D deficiency, unspecified On: :17 Request Urinalysis, Office (09518)Indication: Urinary frequency On: 49-Wmp-992720:22 Request VITAMIN B-12 (CYANOCOBALAMIN) (42552)Indication: Other vitamin B12 deficiency anemia On: :28 Request Comments: Lot:[id number]:04/29Dose:1mlRoute:IMSite:r arm Given By:TAVON signed Vitamin D Hydroxy (62629)Indication: Vitamin D deficiency, unspecified On: :42 Request LIPID PANEL (96587)Indication: Hypercholesterolemia On: :42 Request METABOLIC PANEL, COMPREHENSIVE (01586)Indication: Essential hypertension On: :36 Request TSH (80855)Indication: Acquired hypothyroidism On: :36 Request CBC with auto diff (31255)Indication: Abdominal pain, acute, right lower quadrant On: 0-Rwo-940707:06 Request METABOLIC PANEL, COMPREHENSIVE (28600)Indication: Abdominal pain, acute, right lower quadrant On: 5-Ram-148231:06 Request Urinalysis, Office (85872)Indication: Low Back Pain (Renamed from LBP (low back pain)) On: 15-Zzf-746971:09 Request Vitamin D Hydroxy (08829)Indication: Vitamin D deficiency, unspecified On: 10-Ayf-025075:32 Request METABOLIC PANEL, COMPREHENSIVE (01013)Indication: Essential hypertension On: :31 Request LIPID PANEL (09365)Indication: Hypercholesterolemia On: : Request TSH (26384)Indication: Acquired hypothyroidism On: : Request LIPID PANEL (35944)Indication: Hypercholesterolemia On: :45 Request TSH (31282)Indication: Acquired hypothyroidism On: :44 Request METABOLIC PANEL, COMPREHENSIVE (35164)Indication: Essential hypertension On: :44 Request CBC, PLATELETS & AUT DIFF (27923)Indication: DEFICIENCY, B-COMPLEX NEC On: 9-Par-618102:43 Request VITAMIN B-12 (CYANOCOBALAMIN) (29719)Indication: DEFICIENCY, B-COMPLEX NEC On: 2-Dii-990642:43 Request Vitamin D Hydroxy (01977)Indication: Vitamin D deficiency, unspecified On: 2-Agy-859449:43 Request IRON (08795)Indication: Anemia On: 0-Mtz-808226:42 Request Vitamin D Hydroxy (64878)Indication: Vitamin D deficiency, unspecified On: 6-Nvj-189814:36 Request VITAMIN B-12 (CYANOCOBALAMIN) (34426)Indication: DEFICIENCY, B-COMPLEX NEC On: :35 Request CBC WITH MANUAL DIFF (01409)Indication: DEFICIENCY, B-COMPLEX NEC On: :35 Request METABOLIC PANEL, COMPREHENSIVE (33277)Indication: Essential hypertension On: :35 Request T3, FREE (TRIDOTHYRONINE) (69160)Indication: Acquired hypothyroidism On: :35 Request T4, FREE (05697)Indication: Acquired hypothyroidism On: :35 Request TSH (29136)Indication: Acquired hypothyroidism On: :34 Request TSH (84439)Indication: Acquired hypothyroidism On: 05-Mjt-030633:23 Request Comments: recheck in 6 weeks Metabolic Panel, Basic (70717)Indication: Essential hypertension On: 36-Cwa-125110:16 Request TSH (58926)Indication: Acquired hypothyroidism On: 20-Dpw-678170:22 Request C-REACTIVE PROTEIN (17069)Indication: right lower quadrant pain On: :51 Request SED RATE ERYTHROCYTE (04402)Indication: right lower quadrant pain On: :51 Request Magnesium (87545)Indication: Leg cramps On: :43 Request CBC WITH MANUAL DIFF (41512)Indication: Edema leg On: :42 Request LIPID PANEL (77888)Indication: Hypercholesterolemia On: :41 Request METABOLIC PANEL, COMPREHENSIVE (30130)Indication: Essential hypertension On: :41 Request VITAMIN B-12 (CYANOCOBALAMIN) (72238)Indication: Other vitamin B12 deficiency anemia On: :41 Request Vitamin D Hydroxy (19786)Indication: Vitamin D deficiency, unspecified On: :41 Request Metabolic Panel, Basic (91198)Indication: Acute renal failure, unspecified acute renal failure type On: :31 Request TSH (83707)Indication: Acquired hypothyroidism On: :30 Request LIPID PANEL (56877)Indication: Hypercholesterolemia On: :39 Request Vitamin D Hydroxy (98732)Indication: Vitamin D deficiency, unspecified On: :39 Request VITAMIN B-12 (CYANOCOBALAMIN) (54105)Indication: Other vitamin B12 deficiency anemia On: :39 Request CBC WITH MANUAL DIFF (88240)Indication: Other vitamin B12 deficiency anemia On: :39 Request METABOLIC PANEL, COMPREHENSIVE (38274)Indication: Essential hypertension On: :39 Request Vitamin D Hydroxy (32339)Indication: Vitamin D deficiency, unspecified On: :37 Request LIPID PANEL (36147)Indication: Hypercholesterolemia On: :37 Request TSH (03305)Indication: Acquired hypothyroidism On: :37 Request CBC WITH MANUAL DIFF (73449)Indication: Essential hypertension On: :39 Request METABOLIC PANEL, COMPREHENSIVE (55973)Indication: Essential hypertension On: :39 Request VITAMIN B-12 (CYANOCOBALAMIN) (34244)Indication: b12 deficiency On: :39 Request LIPID PANEL (09842)Indication: Hypercholesterolemia On: :39 Request Vitamin D Hydroxy (12080)Indication: Vitamin D deficiency, unspecified On: :32 Request VITAMIN B-12 (CYANOCOBALAMIN) (04397)Indication: b12 deficiency On: :32 Request Vitamin D Hydroxy (76695)Indication: Vitamin D deficiency, unspecified On: :32 Request METABOLIC PANEL, COMPREHENSIVE (98565)Indication: Essential hypertension On: :32 Request LIPID PANEL (87591)Indication: Hypercholesterolemia On: :32 Request TSH (69597)Indication: Acquired hypothyroidism On: :32 Request CBC WITH MANUAL DIFF (15328)Indication: Essential hypertension On: :30 Request METABOLIC PANEL, COMPREHENSIVE (61206)Indication: Essential hypertension On: :29 Request VITAMIN B-12 (CYANOCOBALAMIN) (78224)Indication: DEFICIENCY, B-COMPLEX NEC On: :29 Request Vitamin D Hydroxy (13794)Indication: Vitamin D deficiency, unspecified On: :29 Request TSH (78493)Indication: Acquired hypothyroidism On: :29 Request LIPID PANEL (80475)Indication: Hypercholesterolemia On: :29 Request Vitamin B-12 (cyanocobalamin) (85671)Indication: b12 deficiency On: :01 Request CALCIFIDIOL (06115) VIT D 25Indication: Vitamin D deficiency, unspecified On: 90-Kkp-299001:00 Request TSH (56832)Indication: Acquired hypothyroidism On: 82-Hfx-489924:34 Request LIPID PANEL (42984)Indication: Hypercholesterolemia On: 87-Irw-635502:34 Request Metabolic Panel, Basic (83808)Indication: Essential hypertension On: 47-Cmi-744675:26 Request VITAMIN B-12 (CYANOCOBALAMIN) (10996)Indication: DEFICIENCY, B-COMPLEX NEC On: 08-Oon-783932:19 Request Vitamin D Hydroxy (94934)Indication: Vitamin D deficiency, unspecified On: 31-Sfr-581074:19 Request VITAMIN D, 1, 25-DIHYDROXY (04127)Indication: Vitamin D deficiency, unspecified On: 8-Ybo-304953:19 Request Comments: Vit D [place] Vitamin B-12 (cyanocobalamin) (63992)Indication: b12 deficiency On: 9-Hrn-481810:17 Request CBC WITH MANUAL DIFF (72949)Indication: b12 deficiency On: 15-Efh-681857:17 Request VITAMIN B-12 (CYANOCOBALAMIN) (07603)Indication: b12 deficiency On: 79-Reg-847665:14 Request VITAMIN B-12 (CYANOCOBALAMIN) (30037)Indication: Vitiligo On: 62-Uzg-741133:37 Request LIPID PANEL (19143)Indication: Hypercholesterolemia On: 35-Tnp-069041:33 Request TSH (91149)Indication: Acquired hypothyroidism On: 63-Khn-359618:32 Request Vitamin D Hydroxy (05388)Indication: Vitamin D deficiency, unspecified On: 27-Dgt-348173:31 Request METABOLIC PANEL, COMPREHENSIVE (78347)Indication: Essential hypertension On: 36-Jxk-872820:42 Request Vitamin D Hydroxy (64263)Indication: Vitamin D deficiency, unspecified On: 40-Xyy-586163:42 Request CAROL (ANTINUCLEAR ANTIBODY) (89490)Indication: Pain in unspecified joint On: 5-Rtt-677880:27 Request C-REACTIVE PROTEIN (83550)Indication: Pain in unspecified joint On: :27 Request CBC WITH MANUAL DIFF (85239)Indication: Pain in unspecified joint On: :27 Request CCP ANTIBODY (69187)Indication: Pain in unspecified joint On: 6-Vaw-963609:27 Request METABOLIC PANEL, COMPREHENSIVE (38709)Indication: Pain in unspecified joint On: :27 Request RHEUMATOID FACTOR-QUANT (98678)Indication: Pain in unspecified joint On: : Request SED RATE ERYTHROCYTE (47561)Indication: Pain in unspecified joint On: : Request TSH (68774)Indication: Pain in unspecified joint On: : Request SED RATE ERYTHROCYTE (52166)Indication: flank pain On: :35 Request C-REACTIVE PROTEIN (88346)Indication: flank pain On: :35 Request METABOLIC PANEL, COMPREHENSIVE (02218)Indication: flank pain On: :35 Request CBC WITH MANUAL DIFF (94033)Indication: flank pain On: : Request URINE CESAR CULTURE (TUNDE COL COUNT) (78650)Indication: flank pain On: :35 Request Thin prep Pap (52760)Indication: Well woman exam with routine gynecological exam On: :09 Request CBC WITH MANUAL DIFF (81320)Indication: Essential hypertension On: 93-Vuo-150099:02 Request METABOLIC PANEL, COMPREHENSIVE (14370)Indication: Essential hypertension On: 36-Aeu-746682:02 Request LIPID PANEL (30634)Indication: Hypercholesterolemia On: 67-Zue-040570:02 Request METABOLIC PANEL, COMPREHENSIVE (35440)Indication: Essential hypertension On: 11-Zlm-597316:18 Request TSH (06141)Indication: Acquired hypothyroidism On: 95-Zhc-425215:18 Request SED RATE ERYTHROCYTE (44488)Indication: Abdominal pain, acute, left upper quadrant On: 97-Wlx-877934:09 Request C-REACTIVE PROTEIN (70166)Indication: Abdominal pain, acute, left upper quadrant On: 64-Ruz-264304:09 Request CBC WITH MANUAL DIFF (43529)Indication: edema On: 08-Cpj-334520:09 Request METABOLIC PANEL, COMPREHENSIVE (63634)Indication: edema On: 69-Kqv-734844:09 Request TSH (34151)Indication: Acquired hypothyroidism On: 86-Syp-621239:03 Request CBC WITH MANUAL DIFF (59412)Indication: Abdominal pain, acute, left upper quadrant On: 08-Ouu-180889:22 Request Lipase (20800)Indication: Abdominal pain, acute, left upper quadrant On: 47-Bhq-593715:22 Request Amylase (57779)Indication: Abdominal pain, acute, left upper quadrant On: 59-Uoj-058169:21 Request Thin prep Pap (94207)Indication: Well woman exam with routine gynecological exam On: 98-Viy-320441:43 Request HEPATIC FUNCTION PANEL (51124)Indication: Hypercholesterolemia On: :52 Request LIPID PANEL (22142)Indication: Hypercholesterolemia On: :52 Request CBC, PLATELETS & AUTO DIFF (27143)Indication: Leukopenia On: 76-Jqk-450720:34 Request Planned Encounters Medical; [facility] 6 Month Fu - On: 03-Jul-2018 13:00 [facility] Fast DO, Kristine A Fast DO, Kristine A Planned Procedures DEXA SCAN AXIAL SKELETON (39016)By: On: 02-Jan-2018 Intent Fast DO, Kristine A Fast DO, Kristine A Comments: mar - RenalBy: Fast DO, On: 02-Jan-2018 Intent Kristine A Fast DO, Kristine A Flu Vaccine (Quadrivalent) [id number]: On: 02-Jan-2018 Intent Fast DO, Kristine A Fast DO, Kristine A Comments: Lot #[id number]/30/2019Site-L dltd, IMDose prefilled syringegiven by: Melly reviewed and ABN signed ELECTROCARDIOGRAM, COMPLETE (ECG) On: 28-Aug-2017 Intent (21400)By: Fast DO, Kristine A Fast Comments: ekg showed normal sinus rhythym, normal axis, no acute st/t wave changes DO, Kristine A SCREENING DIGITAL TOMOSYNTHESIS OF On: 28-Aug-2017 Intent BREAST ([id number])By: Fast DO, Kristine A Fast DO, Kristine A B 12 Injection, 1000 mcg (J3420)By: On: 15-Mar-2017 Intent Visit, Nurse Comments: [id number]/ANOOP Almodovar B 12 Injection, 1000 mcg (J3420)By: On: 22-Feb-2017 Intent Fast DO, Kristine A Fast DO, Kristine A Comments: lot: [id number]: 05/01site/route: L del/IMamt: 1mLVIS signed when applicableCheRAYMUNDO carson Flu Vaccine (Quadrivalent) [id number]: On: 17-Jan-2017 Intent Fast DO, Kristine A [...] (J3420)By: On: 12-Dec-2016 Intent Visit, Nurse Comments: 04674/2018R arm, IM1ml, 1000mcgML, [employer] B 12 Injection, 1000 mcg (J3420)By: On: [...] Kristine A Fast DO, Kristine A Comments: B12lot:[id number]:ite:lt deltroute:Imdose:1mlD.Solitario MA B 12 Injection, 1000 mcg (J3420)By: On: 19-Jul-2016 Intent Fast DO, Kristine A Fast DO, Kristine A Comments: lot: [id number]: ite/route: L del/IMamt: 1mlVIS signed when applicableChelsea, NETWORK SECURITY ENGINEER B 12 Injection, 1000 mcg (J3420)By: [...] armGiven By:TAVON signed DEXA SCAN AXIAL SKELETON ([id number])By: On: 04-Apr-2016 Intent Fast DO, Kristine A Fast DO, Kristine A MRI LUMBAR SPINE W/O CONTRAST On: 04-Apr-2016 Intent ([id number])By: Fast DO, Kristine A Fast DO, Kristine [...] A ELECTROCARDIOGRAM, COMPLETE (ECG) On: 11-Dec-2015 Intent ([id number])By: Fast DO, Kristine A Fast Comments: ekg [...] MAMMOGRAM, SCREENING, BOTH BREAST On: 21-Apr-2015 Intent ([id number])By: Fast DO, Kristine A Fast DO, Kristine A B 12 Injection, 1000 mcg (J3420)By: On: 21-Apr-2015 Intent Fast DO, Kristine A Fast DO, Kristine A Comments: Lot:[id number]:11/27Dose:1mlRoute:IMSite:r arm Given By:JKMVIS signed B 12 Injection, 1000 mcg (J3420)By: On: 16-Mar-2015 Intent Fast DO, Kristine A Fast DO, Kristine A Comments: lot: [id number]: 06/27site/route: L del/IMamt: 1mLVIS signed when applicableKylee NETWORK SECURITY ENGINEER B 12 Injection, 1000 mcg (J3420)By: On: 09-Feb-2015 Intent Fast DO, Kristine A Fast DO, Kristine A Comments: B12lot:[id number]:06/27site:lt deltoidroute:IMdose:1mlDEMICK, SMA B 12 Injection, 1000 mcg (J3420)By: On: 15-Jan-2015 Intent ZahraHunter erazo Comments: B 12Lot:[id number]:17site:lt deltoidroute:IMdose:.5mlDEMICK, SMA B 12 Injection, 1000 mcg (J3420)By: On: 10-Dec-2014 Intent Fast DO, Kristine A Fast DO, Kristine A Comments: lot [id number] - see ANOOP Mcallister CT - Abdomen & Pelvis (IV Contrast On: 16-Sep-2014 Intent Needed)By: Fast DO, Kristine A Fast DO, Kristine A B 12 Injection, 1000 mcg (J3420)By: On: 16-Sep-2014 Intent Fast DO, Kristine A Fast DO, Kristine A Comments: Lot:[id number]:11.16Route:IMSite:R deltoidDose: 1 mLgiven by: Carlita Ariza NETWORK SECURITY ENGINEER B 12 Injection, 1000 mcg (J3420)By: On: 06-Aug-2014 Intent Fast DO, Kristine A Fast DO, Kristine A Comments: lot:[id number]:05/26route:IMdose:1MLSite:Right Deltoidgiven by: ANS B 12 Injection, 1000 mcg (J3420)By: On: 19-Jun-2014 Intent Visit, Nurse Comments: 4090a3.2016given, see ANOOP Altamirano B 12 Injection, 1000 mcg (J3420)By: On: 22-Apr-2014 Intent SlaSilvia buchanan LPN Comments: lot: [id number]: 4.16Dose: 1,000 mcgSite: l dltdLocation; IMby: Prevnar 13 ([id number])By: Fast DO, On: 24-Mar-2014 Intent Kristine A Fast DO, Kristine A Comments: lot: [id number]: 3/16site/route: L del/IMamt: 0.5mLVIS signed when applicableChels, [facility] Ultrasound - PelvisBy: Fast DO, On: 24-Mar-2014 Intent Kristine A Fast DO, Kristine A B 12 Injection, 1000 mcg (J3420)By: On: 24-Mar-2014 Intent Fast DO, Kristine A Fast DO, Kristine A Comments: lot: [id number]: 4/16site/route: R del/IMamt:1mlVIS signed when applicableCheCrossroads [facility] B 12 Injection, 1000 mcg (J3420)By: On: 24-Feb-2014 Intent Silvia Burton LPN Comments: lot: [id number]: 4.16Dose: 1,000 mcgSite: l dltdLocation; IMby: B 12 Injection, 1000 mcg (J3420)By: On: 22-Jan-2014 Intent Fast DO, Kristine A Fast DO, Kristine A Comments: lot [id number] 08/2015location L armroute imgiven by - msmith VIS and/or ABN signed B 12 Injection, 1000 mcg (J3420)By: On: 30-Dec-2013 Intent Fast DO, Kristine A Fast DO, Kristine A Comments: lot [id number] 05/2015location L armroute imgiven by - msmithVIS [...] Fast Comments: today DO, Kristine A EKG ([id number])By: Fast DO, Kristine A On: 05-Nov-2013 Intent Fast DO, Kristine A Comments: ekg showed normal sinus rhythym, normal axis, no acute st/t wave changes B 12 Injection, 1000 mcg (J3420)By: On: 05-Nov-2013 Intent Fast DO, Kristine A Fast DO, Kristine A Comments: Lot:[id number]:11/24Dose:1mlRoute:IMSite:enoch armGiven By:TAVON signed PHYSICAL THERAPY EVALUATION On: 18-Oct-2013 Intent ([id number])By: Aquiles Potts CNP SPECIMEN HANDLING/TRANSPORT On: 18-Oct-2013 Intent ([id number])By: Aquiles Potts CNP B 12 Injection, 1000 mcg (J3420)By: On: 11-Oct-2013 Intent Aqulies Potts CNP Comments: Lot:[id number]:11/2013Dose:1mlRoute:IMSite:enoch Pierre By:TAVON signed B 12 Injection, 1000 mcg (J3420)By: On: 18-Sep-2013 Intent Fast DO, Kristine A Fast DO, Kristine A B 12 Injection, 1000 mcg (J3420)By: On: 07-Aug-2013 Intent Fast DO, Kristine A Fast DO, Kristine A Comments: lot: [id number]: ite/route: Enoch carey/IMamt: 1mLVIS signed when applicableChelsea, NETWORK SECURITY ENGINEER MAMMOGRAM, SCREENING, BOTH BREASTS On: 24-Jun-2013 Intent ([id number])By: Fast DO, Kristine A Fast DO, Kristine A B 12 Injection, 1000 mcg (J3420)By: On: 24-Jun-2013 Intent Fast DO, Kristine A Fast DO, Kristine A Comments: Lot:[id number]:04/28Dose:1mlRoute:IMSite:enoch armGiven By:TAVON signed B 12 Injection, 1000 mcg (J3420)By: On: 15-May-2013 Intent Visit, Nurse Comments: Lot:[id number]:01/25Dose:1mlRoute:IMSite:enoch armGiven By:TAVON signed B 12 Injection, 1000 mcg (J3420)By: On: 22-Apr-2013 Intent Fast DO, Kristine A Fast DO, Kristine A Comments: lot: [id number]: 01/25site/route: L deltoid/IMamt: 1mLVIS signed when applicableChelsea, NETWORK SECURITY ENGINEER B 12 Injection, 1000 mcg (J3420)By: On: 21-Mar-2013 Intent Fast DO, Kristine A Fast DO, Kristine A Comments: see flowsheetMegan PNEUM VAC ADLT/IMUMNOSPR, SBC/INTRM On: 18-Feb-2013 Intent ([id number])By: Fast DO Kristine A Fast Comments: Lot: [id number]: 70Eyp17Mau: 0.5mlRoute: IMSite: L deltoidGiven by: ANOOP Moralez DO, Kristine A ADMINISTRATION OF PNEUMOCOCCAL On: 18-Feb-2013 Intent VACCINE (G0009)By: Antwan DO Kristine A Fast DO, Kristine A Eprescribed prescriptions On: 18-Feb-2013 Intent (G8553)By: Deanna Michelle B 12 Injection, 1000 mcg (J3420)By: On: 02-Jan-2013 Intent Deanna Michelle Comments: lot: [id number]: 10/25site/route: L deltoid/IMamt: 1mLVIS signed when applicableChelsea, NETWORK SECURITY ENGINEER B 12 Injection, 1000 mcg (J3420)By: [...] 08/24site/route: R deltoid/IMamt: 1mLVIS signed when applicableChelsea, NETWORK SECURITY ENGINEER B 12 Injection, 1000 mcg (J3420)By: On: 28-Aug-2012 Intent Antwan MIX Kristine A Fast DO, Kristine A Comments: Lot #:[id number] date:mount given:1mlRoute: IMSite given: left deltoidGiven by: AYAD Dailey B 12 Injection, 1000 mcg (J3420)By: On: 23-Jul-2012 Intent Fast DO, Kristine A Fast DO, Kristine A Comments: Lot: [id number]: 02/23Amt: 1000mcg/1mlRoute: IMSite: L Deltoid per pt [...] A Fast DO, Kristine A Comments: lot: [id number]:02/23site/route: L deltoid/IMamt: 1ccVIS signed when applicableCheRAYMUNDO carson B 12 Injection, 1000 mcg (J3420)By: On: 09-May-2012 Intent Kylee Castellon Comments: Lot:[id number]:02/2014Dose:1mlRoute:IMSite:L armGiven By:Jameson signed VENOUS DOPPLER LOWER EXTREMITY On: 18-Apr-2012 Intent ([id number])By: Fast DO, Kristine A Fast DO, Kristine A Radiology - Hip - RightBy: Fast DO, On: 06-Apr-2012 Intent Kristine A Fast DO, Kristine A Comments: call results B 12 Injection, 1000 mcg (J3420)By: On: 06-Apr-2012 Intent Lisandra Chilel Comments: Lot #[id number]-36/14Site-left deltoidDose-1 mlgiven by: Omkar Rivera LPN Eprescribed prescriptions On: 06-Apr-2012 Intent (G8553)By: Lisandra Chilel Inhaler Demo ([id number])By: Fast DO, On: 06-Feb-2012 Intent Kristine A Fast DO, Kristine A B 12 Injection, 1000 mcg (J3420)By: On: 06-Feb-2012 Intent Kylee Castellon Comments: Lot:[id number]:Dose:1mlRoute:IMSite:L armGiven By:TAVON signed MAMMOGRAM, SCREENING, BOTH BREASTS On: 06-Feb-2012 Intent ([id number])By: Fast DO, Kristine A Fast DO, Kristine [...] mlRoute: IMSite given: left deltoidGiven by: AMI Alcarazreservoir engineering consultant - Cervical SpineBy: Fast On: 13-Apr-2011 Intent DO, Kristine A Fast DO, Kristine A TD Injection , IM ([id number])By: On: 13-Apr-2011 Intent Lisandra Chilel Comments: received in 2005 B 12 Injection, 1000 mcg (J3420)By: On: 29-Mar-2011 Intent Kateryna Lunsford MD Comments: Lot #[id number]-8.13Site-Left arm, IMDose 0.5mlgiven by:Татьяна B 12 Injection, 1000 mcg (J3420)By: On: 08-Feb-2011 Intent Татьяна Vera LPN Comments: Lot [id number]#Exp-7.13Site-R arm, IMDose 1mlgiven by:Татьяна DXA, BONE DENSITY, AXIAL SKELETON On: 24-Jan-2011 Intent ([id number])By: Lisandra Chilel Comments: post menopausal wihtout estrogen FLU VAC, SPLIT, >3 YEARS, INTRAMUSC On: 24-Jan-2011 Intent ([id number])By: Lisandra Chilel Comments: received at [facility] B 12 Injection, 1000 mcg (J3420)By: On: 21-Dec-2010 Intent Tripp DAVALOS Licha INJECTION, VITAMIN B-12 On: 19-Nov-2010 Intent CYANOCOBALAMIN, UP TO 1000 MCG Comments: Lot:[id number]:04/25Amt:1mlRoute:IMSite:left deltGiven By: ANOOP Sotelo (Special Coverage Instructions Apply. See CIM: 45-4 and MCM: 2049) (J3420)By: Vi Ramirez EKG ([id number])By: Lisandra Chilel On: 05-Nov-2010 Intent Comments: ekg showed normal sinus rhythym, normal axis, no acute st/t wave changes MAMMOGRAM, SCREENING, BOTH BREASTS On: 05-Nov-2010 Intent ([id number])By: Fast DO, Kristine A Fast DO, Kristine [...] 03-Jun-2010 Intent Yasmeen Rivera LPN Comments: Lot #[id number]-left deltoidDose-1 mlgiven by:[facility] IMMUNIZ ADMNIN, 1 VAC, SNGL/COMBO On: 19-Apr-2010 Intent (31420)By: Yasmeen Rivera LPN Comments: Lot #[id number]-3/28/02Site-left deltoidDose- 0.85mlgiven by:[facility] [place] ([id number])By: Miguel On: 19-Apr-2010 Intent Yasmeen DAVALOS B 12 Injection, 1000 mcg (J3420)By: On: 19-Apr-2010 Intent Hluszti [employer], Yasmeen B 12 Injection, 1000 mcg (J3420)By: On: 22-Mar-2010 Intent Long [employer], Татьяна L Comments: Lot #[id number]-10/22Site-L arm, IMDose [...] Rivera LPN Comments: Lot #[id number]-07/22Site-left deltoidDose-1 mlgiven by:[facility] FLU VAC, SPLIT, >3 YEARS, INTRAMUSC On: 30-Dec-2009 Intent ([id number])By: Lisandra Chilel Comments: Lot #[id number]-2/11Site-left deltoidgiven by:[facility] B 12 Injection, 1000 mcg (J3420)By: On: 30-Dec-2009 Intent Lisandra Chilel Comments: Lot #[id number]-07/22Site-right deltoidDose-1 mlgiven by:[facility] Renal Duplex ScanBy: Fast DO, Kristine On: 30-Dec-2009 Intent A Fast DO, Kristine A IMMUNIZ ADMNIN, 1 VAC, SNGL/COMBO On: 30-Dec-2009 Intent ([id number])By: Lisandra Chilel B 12 Injection, 1000 mcg (J3420)By: On: 14-Dec-2009 Intent Shayna Harris Comments: Lot:[id number]:07/22Dose:1000mcg/1mlRoute:IMSite:right deltoid Given by: AYAD Gil B 12 Injection, 1000 mcg (J3420)By: On: 26-Nov-2009 Intent Phyllis Escobar RN Comments: documented in flowsheet B 12 Injection, 1000 mcg (J3420)By: On: 19-Oct-2009 Intent Yasmeen Rivera LPN Comments: Lot #[id number]-2/Site-left deltoidDose-1 mlgiven by:[facility] B 12 Injection, 1000 mcg (J3420)By: On: 13-Oct-2009 Intent Shayna Harris Comments: Lot:[id number]:2/12Dose:1000mcg/1mlRoute:imSite:right sideGiven by: AYAD Gil B 12 Injection, 1000 mcg (J3420)By: On: 06-Oct-2009 Intent Fast DO, Kristine A Fast DO, Kristine A Comments: Lot #[id number]-2Site-right deltoidDose- 1 mlgiven by:[facility] MRI - BrainBy: Fast DO, Kristine [...] do this week and call ressults EKG ([id number])By: Fast DO, Kristine A On: 17-Dec-2008 Intent Fast DO, Kristine A Comments: ekg showed normal sinus rhythym, normal axis, no acute st/t wave changes MAMMOGRAM, SCREENING, BOTH BREASTS On: 17-Dec-2008 Intent ([id number])By: Fast DO, Kristine A Fast DO, Kristine A MRI - Lumbar SpineBy: Fast DO, On: 17-Dec-2008 Intent Kristine A Fast DO, Kristine A FLU VAC, SPLIT, >3 YEARS, INTRAMUSC On: 17-Dec-2008 Intent ([id number])By: Lisandra Chilel Comments: Lot #:[id number] date:mount given:0.5mlRoute: IMSite given:left deltoidGiven by: AYAD Dailey ADMINISTRATION OF INFLUENZA VIRUS On: 17-Dec-2008 Intent VACCINE (G0008)By: Lisandra Chilel CT - Abdomen & Pelvis Stone On: 18-Aug-2008 Intent ProtocolBy: Fast DO, Kristine A Fast Comments: stat -call results DO, Kristine A Radiology - Chest- PA and LatBy: On: 24-Mar-2008 Intent Fast DO, Kristine A Fast DO, Kristine A Spirometry ([id number])By: Antwan DO, On: 24-Mar-2008 Intent Kristine A Fast DO, Kristine A Comments: good effort and curve minimal decrease small airways ADMINISTRATION OF PNEUMOCOCCAL On: 17-Dec-2007 Intent VACCINE (G0009)By: Fast DO, Kristine A Fast DO, Kristine A PNEUM VAC ADLT/IMUMNOSPR, SBC/INTRM On: 18-Dec-2007 Intent (40634)By: Fast DO, Kristine A Fast Comments: Lot #:[id number] date:08/19Amount given:0.5mlRoute: IMSite given:left deltGiven by: AYAD Dailey DO, Kristine A MAMMOGRAM, SCREENING, BOTH BREASTS On: 17-Dec-2007 Intent ([id number])By: Fast DO, Kristine A Fast Comments: end of feb DO, Kristine A DXA, BONE DENSITY, AXIAL SKELETON On: 31-Oct-2007 Intent ([id number])By: Fast DO, Kristine A Fast DO, Kristine A Echo CompleteBy: Fast DO, Kristine A On: 25-Jul-2007 Intent Fast DO, Kristine A Bio Z ([id number])By: Fast DO, Kristine A On: 25-Jul-2007 Intent Fast DO, Kristine A Comments: good cardiac output and no excesive gfluid EKG (03907)By: Fast DO, Kristine A On: 25-Jul-2007 Intent Fast DO, Kristine A Comments: ekg showed normal sinus rhythym, normal axis, no acute st/t wave changes CT - Abdomen & Pelvis (IV Contrast On: 11-Jul-2007 Intent Needed)By: Adrianna Morgan DO MAMMOGRAM, SCREENING, BOTH BREASTS On: 27-Mar-2006 Intent (40861)By: Adrianna Morgan DO Planned Medications Vitamin B-12 [...] MCG/ML Injection Solution Ordered: 22-Apr-2014 Pending Slarb [employer], Silvia Vitamin B-12 1000 MCG/ML Injection Solution Ordered: 24-Mar-2014 Pending Fast DO, Kristine A Fast DO, Kristine A Vitamin B-12 1000 MCG/ML Injection Solution Ordered: 24-Feb-2014 Pending Sl[place] [employer], Silvia Vitamin B-12 1000 MCG/ML Injection Solution [...] MCG/ML Injection Solution Ordered: 05-Nov-2015 Pending [place], [place] Vitamin B-12 1000 MCG/ML Injection Solution Ordered: [...] 1000 MCG/ML Injection Solution Ordered: 29-Mar-2011 Pending aKteryna Lunsford MD Vitamin B-12 1000 MCG/ML Injection [...] Pending Fast DO, Kristine A Fast DO, Kirstine A Vitamin B-12 1000 MCG/ML Injection Solution [...] online - Detail Indication: [facility] : Patient Instructions Indication: [facility] Wellness Physical Hip pain, right : [...] / tylenol and - more mobile on HangItic days- cleo notices a difference Encounter Diagnosis: [...] went well- she saw Dr Mckeon in [facility] for pain management - had inje ction [...] emotional problems . Note for Physical exam: [facility] Wellness Physical- her hip bursitis better [...] do a lot of walking Encounter Diagnosis: [facility] Wellness Physical, Nonsmoker, BMI 37.0-37.9, adult, [...] procedure: ( End: 10-Dec-2014 21:34 / at [facility] with dr Mahesh stokes) . There have been no problems with general anesthesia or blood/blood products. Prosthetics include: dentures (partial). Note for Preoperative evaluation: [facility]- having [...] scleroderma, leukopenia). Note for Follow up for technical sales advisor tim medical issues: Pt had colonoscopy done [...] scleroderma, leukopenia). Note for Follow up for technical sales advisor tim medical issues: No routine labs done [...] scleroderma, leukopenia). Note for Follow up for technical sales advisor tim medical issues: still having right lateral [...] scleroderma, leukopenia). Note for Follow up for technical sales advisor tim medical issues: sdhe is losing weight [...] scleroderma, leukopenia). Note for Follow up for technical sales advisor tim medical issues: feels well other than [...] scleroderma, leukopenia). Note for Follow up for technical sales advisor tim medical issues: No routine labs done [...] medical issues: she saw Jessee Stringer at [facility] for her groin pain- - said her [...] rare occ that she takes at [facility] but doesnt know accuracy, [ADDITIONAL REASON] Follow [...]
--- OUTSIDE RECORDS SUMMARY | 2018-06-01 23:59 | XMS RPT_ITS | Continuity of Care Document ---
:1940 Author Organization [facility] Address [address] [facility] [address] [place] [address] Phone Care Team Providers Name Role Phone [...] DO, Kristine A Start : 02-Mar-2016 Active Comments:[facility] report#[id number], df approved and given to pt-jf 03/02/16 Imipramine HCl 25 MG Oral Tablet 1 (one) Tablet qhs prn for 0 days Quantity: 30 {Tablet} Refills: 1 Ordered:14-Jul-2017 Fast DO, Kristine AFast DO, Kristine A Start : 14-Jul-2017 Active Comments:verbally called to [facility] - cmanchak 5/4 Leg Cramps [...] cap daily (100 MG) Active Vitamin D3 67294 UNIT Oral Capsule 1 (one) Capsule once [...] : 11-Jul-2007 End : 08-Aug-2007 Discontinued Drisdol 33862 UNIT Oral Capsule 1 (one) Capsule once [...] Chilel End : 08-Aug-2007 Discontinued VITAMIN D, 51818EQEX (Oral Capsule) 1 cap q week (15015 UNIT) Start : 27-Mar-2013 End : 27-Mar-2013 Discontinued Comments:This order discontinued per [employer]. VITAMIN D, 01038PDUL (Oral Capsule) 1 cap Capsule q week [...] and Bladder Result: Comments: See Note; NOTES: [facility] Imaging Services [address] [place] [address] Kidney and Bladder MR#: [id number] Acct: [id number] Name: VIRGINIA URRUTIA Rep #: [id number] : 1940 F 77 From: Doug Sinclair DO PCP: Kristine Davis DO Status: REG CLI Study: Kidney and Bladder Date of Exam: 01/11/18 Exam# [id number] Ordering Dr: Kristine Davis DO STUDY: RENAL [...] Doug Sinclair DO at 23:00 EDT Tel [phone], Service support , CC: Kristine Davis DO Pellet Post Inspector: Signed 05-Oct-2017 TXT - Blood Flow Screening Result: Comments: See Note; NOTES: [facility] Cardiovascular Services [address] [place] [address] 10/02/17 0928 MR#: [id number] Acct: [id number] Name: VIRGINIA URRUTIA Rep #: [id number] [...] DO Date Dictated: 10/02/1728 Date Transcribed: 10/05/171656 Pellet Post Inspector: Signed 02-Oct-2017 SCREENING MAMM (CAD), BILAT Result: Comments: See Note; NOTES: [facility] Imaging Services [address] [place] [address] SCREENING MAMM (CAD), BILAT MR#: [id number] Acct: [id number] Name: VIRGINIA URRUTIA Rep #: [id number] : 1940 F 76 From: Noel Avitia MD PCP: Kristine Davis DO Status: REG CLI Study: SCREENING MAMM (CAD), BILAT Date of Exam: 10/02/17 Exam# [id number] Ordering Dr: Kristine Davis DO MAMMOGRAPHY - [...] Service support , CC: Kristine Davis DO Pellet Post Inspector: Signed 14-Sep-2016 Venous Duplex Lower Extremity Result: Comments: See Note; NOTES: [facility] Cardiovascular Services [address] [place] [address] Venous Duplex US, Unilateral 09/14/16 1558 MR#: [id number] Acct: [id number] Name: VIRGINIA YEH Rep #: [id number] : 1940 75 From: Johan Ortega MD [...] Date Dictated: 09/14/16 1558 Date Transcribed: 09/14/16 1430 Pellet Post Inspector: Signed 23-Aug-2016 Re-Evaluation - PT (1) Result: Comments: See Note; NOTES: [facility] Therapy [facility] [address] [facility] [place] [address] Fax REEVALUATION / MEDICARE RECERTI MATTHIAS Zamora 4d PHYSICAL THERAPY MR#: [id number] Acct: [id number] Name: VIRGINIA URRUTIA Rep #: [id number] : 1940 75 From: Humberto Aguilar DPT, OCS, CSCS Referring DrDav: OUT OF TOWN DOCTOR Status : REG RCR Insurance: [facility] Out of [facility] Doctor, It has been my pleasure [...] do not hesitate to contact me at [phone] by phone or if you have questions [...] - PT Result: Comments: See Note; NOTES: [facility] [address] [facility]. [address] [place] [address] Fax REHABILITATION SERVICES INITIAL EVALUATION MR#: [id number] Acct: [id number] Name: VIRGINIA URRUTIA Rep #: [id number] : 1940 75 From: Humberto Aguilar DPT, OCS, CSCS Referring : OUT OF TOWN DOCTOR Status: REG RCR Insurance: [facility] Patient's Visit Information VIRGINIA URRUTIA is a 75 year old F referred to Physical Therapy by Out [facility] Doctor with a diagnosis of L knee [...] to be FAXED BACK to us at [phone] for Medica re purposes. Please let me know if there are questions or concerns regarding this plan of care. Physician Signature: Date: <Elec tronically signed by Humberto Aguilar DPT, OCS, CSCS> 07/29/16 5135 CC: Kristine Davis DO; OUT OF TOWN DOCTOR EBG Signed For Medicare only, by signing this I certify the pl an of care. Physicians Signature Date 19-Apr-2016 Emergency Department Summary Result: Comments: See Note; NOTES: [facility] Medical Records Department [address] [place] [address] Emergency Department Summary MR#: [id number] Acct: [id number] Name: VIRGINIA URRUTIA Rep #: [id number] : 1940 75 From: Byron Harris MD [...] Kristine Davis DO T: [facility] JOB: [id number] 04/19/16 1814 <Electronically signed by Byron Harris MD> Date Byron Harris MD Cosigner Signature (If Indicated): Date CC: Kristine Davis DO Date Dictated: 04/15/1634 Date Transcrib ed: 04/15/1634 Pellet Post Inspector: Signed 15-Apr-2016 Discharge Instruction Result: Comments: See Note; NOTES: [facility] Medical Records Department [address] [place] [address] Discharge Instruction 04/14/162306 MR#: [id number] Acct: [id number] Name: VIRGINIA URRUTIA Rep #: [id number] : 1940 75 From: Byron Harris MD [...] your Primary Care Provider. Call Doctors Registry ([phone]) or report to the closest Emergency Room. Call 911 if necessary. 04/15/16 0118 &#6 0;Electronically signed by Byron Harris MD> Date Byron Harris MD Cosigner Signature (If Indicated): Date CC: Kristine Davis DO 14-Apr-2016 Venous Duplex Imag/Limited/Uni Result: Comments: See Note; NOTES: [facility] Imaging Services [address] [place] [address] Verdana 4d Venous Duplex Imag/Limited/Uni MR#: [id number] Acct: [id number] Name: RHONA URRUTIA Rep #: [id number] : 1940 F 75 From: Doug Sinclair DO PCP: Kristine Davis DO Status: REG ER Study: Venous Duplex Imag/Limited/Uni Date of Exam: 04/14/16 Exam# [id number] Ordering Dr: Byron Harris MD STUDY: VENOUS [...] Doug Sinclair DO at 23:15 EST Tel [phone], Service support [phone], CC: Kristine Davis DO; Byron Harris MD Pellet Post Inspector: Signed 13-Apr-2016 Spine Lumbar (Routine) Result: Comments: See Note; NOTES: [facility] Imaging Services [address] [place] [address] Verdana 4d Spine Lumbar (Routine) MR#: [id number] Acct: [id number] Name: VIRGINIA URRUTIA p #: [id number] : 1940 F 75 From: Tiara Parsons MD PCP: Kristine Davis DO Status: REG CLI Study: Spine Lumbar (Routine) Date of Exam: 04/13/16 Exam# [id number] Ordering Dr: Kristine Davis DO STUDY: MRI [...] MD at 11:48 EST , Service support [phone], CC: Kristine Davis DO Pellet Post Inspector: Signed 12-Apr-2016 PT D/C Summary (1) Result: Comments: See Note; NOTES: [facility] Physical Therapy [address] [place] [address] Fax REHABILITATION SERVICES DISCHAR SUMMARY MR#: [id number] Acct: [id number] Name: VIRGINIA URRUTIA Rep #: [id number] : 1940 75 From: Humberto Aguilar DPT, OCS, CSCS Referring : Kristine Davis DO Status: REG RCR [facility]C Summary It has been [...] please feel free to call me at [phone]. Thank yo sridevi for the referral of this patient. Sincerely, Humberto Aguilar DPT, OC <Electronically signed by Humberto Aguilar DPT, OCS, CSCS> 04/12/16 1621 CC: Kristine Davis DO EBG Signed 12-Apr-2016 Dexa Bone Density Study (HP) Result: Comments: See Note; NOTES: [facility] Imaging Services [address] [place] [address] Verdana 4d Dexa Bone Density Study () MR#: [id number] Acct: [id number] Name: ENE URRUTIA Rep #: [id number] : 1940 F 75 From: Dashawn Rowe MD PCP: Kristine Davis DO Status: REG CLI Study: Dexa Bone Density Study () Date of Exam: 04/12/16 Exam# [id number] Ordering Dr: Magallanes DO STUDY: DUAL ENERGY [...] Dashawn Rowe MD at 14:32 EST Tel [phone], Service support [phone], CC: Kristine Davis DO Pellet Post Inspector: Signed 10-Mar-2016 Inital Evaluation (1) - PT Result: Comments: See Note; NOTES: [facility] [address] [place] [address]. [address] [place] [id number] Fax REHABILITATION SERVICES INITIAL EVALUATION MR#: [id number] Acct: [id number] Name: VIRGINIA URRUTIA Rep #: [id number] : 1940 75 From: Jennifer Gongora DPT Referring DrDav: Kristine Davis DO Status: REG RCR [facility] VIRGINIA URRUTIA is [...] to be FAXED BACK to us at [phone] for Medicare purposes. Please let me know if there are questio ns or concerns regarding this plan of care. Physician Signature: Date: <Electronically signed by Jennifer Gongora DPT> 1243 CC: Kristine Davis DO ELR Signed For Medicare only, by signing this I certify the plan of care. Physicians Signature Date 17-Dec-2015 Echocardiogram Complete Result: Comments: See Note; NOTES: [facility] Cardiovascular Services [address] [place] [address] Echo Complete 12/17/15 1401 MR#: [id number] Acct: [id number] Name: VIRGINIA URRUTIA Rep #: [id number] : 1940 75 From: Chicho Bahena MD Attending Dr: Kristine Davis DO Status: REG CLI Ordering Dr: Kristine Davis DO Date: 12/17/15 Location: [facility] Sex: F C Admitted: Reason [...] Date Dictated: 12/17/15 1401 Date Transcribed: 12/17/151700 Pellet Post Inspector: Signed 11-Dec-2015 Bilat Scrn Digital AND CAD Result: Comments: See Note; NOTES: [facility] Imaging Services [address] [place] [address] Verdana 4d Bilat Scrn Digital AND CAD MR#: [id number] Acct: [id number] Name: VIRGINIA URRUTIA Rep #: [id number] : 1940 F 75 From: Dashawn Rowe MD PCP: Kristine Davis DO Status: REG CLI Study: Bilvictor m [place] Digital AND CAD Date of Exam: 12/11/15 Exam# [id number] Ordering Dr: Kristine Davis DO MAMMOGRAPHY - [...] delay biopsy of a clinically suspicious abnormality. [id number] Electronically Signed: Dashawn Rowe MD at 8:47 EDT Tel [phone], Service support [phone], CC: Kristine Davis DO Pellet Post Inspector: Signed 03-Jan-2015 Emergency Department Summary Result: Comments: See Note; NOTES: [facility] Medical Records Department [address] [place] [address] Emergency Department Summary MR#: [id number] Acct: [id number] Name: VIRGINIA URRUTIA Mook Rep #: [id number] : 1940 74 From: Ivette Cline PCP: [...] Kristine Davis DO T: [facility] JOB: [id number] 01/03/15 3282 <Electronically signed b angle Cline > Date Ivette Cline Cosigner Signature (If Indicated): Date CC: Kristine Davis DO Date Dictated: 12/27/141108 Date Transcribed: 12/27/141108 Pellet Post Inspector: Signed 27-Dec-2014 Discharge Instruction Result: Comments: See Note; NOTES: [facility] Medical Records Department [address] [place] [address] Discharge Instruction 12/27/14 1100 MR#: [id number] Acct: [id number] Name: VIRGINIA URRUTIA Rep #: [id number] : 1940 74 From: Ivette Cline PCP: [...] problems, contact your doctor. Call Doctors Registry ([phone]) or report to the closest Emergency Room. Call 911 if necessary. 12/27/141105 <Electronically signed by Ivette Cline > Date Ivette Cline Cosigner Signature (If Indicated): Date _ CC: Kristine Davis DO 27-Dec-2014 Spine Cervical without Contras Result: Comments: See Note; NOTES: [facility] Imaging Services [address] [place] [address] Verdana 4d Spine Cervical without Contras MR#: [id number] Acct: [id number] Na me: VIRGINIA URRUTIA Rep #: [id number] : 1940 F 74 From: Doug Sinclair DO PCP: Antwan DOKristine Status: REG ER Study: Spine Cervical without Contras Date of Exam: 12/27/14 Exam# [id number] Ordering Dr : Ivette Cline STUDY: CT [...] Doug Sinclair DO at 10:36 EDT Tel [phone], Service suppo rt [phone], CC: Ivette Cline; Kristine Davis DO Pellet Post Inspector: Signed 23-Dec-2014 Emergency Department Summary Result: Comments: See Note; NOTES: [facility] Medical Records Department [address] [place] [address] Emergency Department Summary MR#: [id number] Acct: [id number] Name: VIRGINIA URRUTIA Rep #: [id number] : 1940 74 From: Se Dawkins MD [...] acute. Se Dawkins MD T: [facility] JOB: [id number] 12/23/14799 <Electronically signed by Se Dawkins MD> Date Se Dawkins MD Cosigner Signature (If Indicated): Date CC: Kristine Davis DO Date Dictated: 12/23/14707 Date Transcribed: 12/23/14707 Pellet Post Inspector: Signed 23-Dec-2014 Discharge Instruction Result: Comments: See Note; NOTES: [facility] Medical Records Department [address] [place] [address] Discharge Instruction 12/23/14704 MR#: [id number] Acct: [id number] Name: VIRGINIA URRUTIA Rep #: [id number] : 1940 74 From: Se Dawkins MD [...] problems, contact your doctor. Call Doctors Registry ([phone]) or r aartirt to the closest Emergency Room. Call 911 if necessary. 12/23/14705 <Electronically signed by Se Dawkins MD> Date Se collins MD Cosigner Signature (If Indicated): Date CC: Kristine Davis DO 10-Dec-2014 ELECTROCARDIOGRAM, COMPLETE (ECG) (68208) Result: [MEASUREMENTS ANALYSIS] Date of Test: 12/10/2014 10:23:24; Heart Rate: 91; FL Interval: 144; QRS: 96; QT Interval: 372; Corrected QT Interval (QTc): 426; P Wave [place]: 49; QRS Wave [place]: 35; T Wave [place]: 30; Blood Pressure: 0/0 [ECG DIAGNOSTIC STATEMENTS] Date of Test: 12/10/2014 10:23:24; Summary: Sinus Rhythm Low voltage in limb leads. ABNORMAL 22-Sep-2014 Abdomen/Pelvis WITH Contrast Result: Comments: See Note; NOTES: [facility] Imaging Services [address] [place] [address] CAT Scan Report MR#: [id number] Acct: [id number] Name: VIRGINIA URRUTIA Rep #: [id number] : 1940 F 73 From: Rey Rojo MD PCP: Kristine Davis DO Status: REG CLI Study: Abdomen/Pelvis WITH Contrast Date of Exam: 09/22/14 Exam# [id number] Ordering Dr: Kristine Davis DO STUDY : [...] IMPRESSION: No CT evidence of an ac anvik intra-abdominal or pelvic process. Redemonstrated small multiple gallstones and bilateral renal cysts. Normal appendix. Electronically Signed: Rey Rojo MD at 16:58 EDT Te l [phone], Service support [phone], CC: Kristine Davis DO Pellet Post Inspector: Signed 31-Mar-2014 Transvaginal Non- Result: Comments: See Note; NOTES: [facility] Imaging Services [address] [place] [address] Ultrasound Report MR#: [id number] Acct: [id number] Name: VIRGINIA URRUTIA Rep #: [id number] : 1940 F 73 From: Dashawn Rowe MD PCP: Kristine Davis DO Status: REG CLI Study: Transvaginal Non- Date of Exam: 03/31/14 Exam# [id number] Ordering Dr: Kristine Davis DO STUD Y: [...] Dashawn Rowe MD at 13:55 EST Tel [phone], Service support [phone], F ax [phone] CC: Kristine Davis DO Pellet Post Inspector: Signed 31-Mar-2014 Pelvic (Non ) Result: Comments: See Note; NOTES: [facility] Imaging Services [address] [place] [address] Ultrasound Report MR#: [id number] Acct: [id number] Name: VIRGINIA URRUTIA Rep #: [id number] : 1940 F 73 From: Dashawn Rowe MD PCP: Kristine Davis DO Status: REG CLI Study: Pelvic (Non ) Date of Exam: 03/31/14 Exam# [id number] Ordering Dr: Kristine Davis DO STUDY: U [...] Dashawn Rowe MD at 13:55 EST Tel [phone], Service support [phone], Fax CC: Kristine Davis DO Pellet Post Inspector: Signed 22-Jan-2014 Bilvictor m [place]arza Digital & CAD Result: Comments: See Note; NOTES: [facility] Imaging Services [address] [place] [address] Breast Imaging Report MR#: [id number] Acct: [id number] Name: VIRGINIA URRUTIA Rep #: [id number] : 1940 F 73 From: Dashawn Rowe MD PCP: Kristine Davis DO Status: REG CLI Exam# [id number] Ordering Dr: Kristine Davis DO MAMMOGRAPHY - [...] Dashawn Rowe MD at 14:49 EST Tel [phone], Ser vice support [phone], CC: Kristine Davis DO Pellet Post Inspector: Signed 07-Nov-2013 L/S Spine Min 4 Views Result: Comments: See Note; NOTES: [facility] Imaging Services [address] [place] [address] Radiology Report MR#: [id number] Acct: [id number] Name: VIRGINIA URRUTIA Rep #: [id number] : 1940 F 73 From: Tod Lamas MD PCP: Kristine Davis DO Status: REG CLI Study: L/S Spine Min 4 Views Date of Exam: 11/07/13 Exam# [id number] Ordering Dr: Kristine Davis DO STUDY: X-RA [...] at 18:52 EDT Tel , Service support [phone], CC: Kristine Davis DO Pellet Post Inspector: Signed 07-Nov-2013 Thoracic Spine 3 Views Result: Comments: See Note; NOTES: [facility] Imaging Services [address] [place] [address] Radiology Report MR#: [id number] Acct: [id number] Name: VIRGINIA URRUTIA Rep #: [id number] : 1940 F 73 From: Tod Lamas MD PCP: Kristine Davis DO Status: REG CLI Study: Thoracic Spine 3 Views Date of Exam: 11/07/13 Exam# [id number] Ordering Dr: Kristine Davis DO STUDY: X-R [...] at 17:07 EDT Tel , Service support [phone], CC: Kristine Davis DO Pellet Post Inspector: Signed 05-Nov-2013 Abdomen/Pelvis without Cont Result: Comments: See Note; NOTES: [facility] Imaging Services [address] [place] [address] CAT Scan Report MR#: [id number] Acct: [id number] Name: VIRGINIA URRUTIA Rep #: [id number] : 1940 F 73 From: Dashawn Rowe MD PCP: Kristine Davis DO Status: REG CLI Study: Abdomen/Pelvis without Cont Date of Exam: 11/05/13 Exam# [id number] Ordering Dr: Kristine Davis DO STUD Y: [...] Dashawn Rowe MD at 15:39 EDT Tel [phone], Service supp ort [phone], CC: Kristine Davis DO Pellet Post Inspector: Signed 07-Oct-2013 Kidney and Bladder Result: Comments: See Note; NOTES: [facility] Imaging Services [address] [place] [address] Ultrasound Report MR#: [id number] Acct: [id number] Name: VIRGINIA URRUTIA Rep #: [id number] : 1940 F 72 From: Brook Cummings DO PCP: Kristine Davis DO Status: REG CLI Study: Kidney and Bladder Date of Exam: 10/07/13 Exam# [id number] Ordering Dr: Aquiles Potts STUDY: RENAL ULTRAS [...] at 23:16 EDT Tel , Service support [phone], CC: Aquiles Potts; Kristine Davis DO Pellet Post Inspector: Signed Immunization Name Dates Details Influenza (3 years and up) on: 17-Dec-2008 Comments: Lot #:[id number] date:mount given:0.5mlRoute: IMSite given:left deltoidGiven by: AYDA Dailey Influenza (3 years and up) on: [...] 0.00 cm Results Date Description Value Details 64-Ktr-027118:12 ANGTENSIN 1-CONVRT ENZYM Comments: PATIENT NOT FASTINGPERFORMED BY: [employer] [facility] [id number] BY: [employer] [id number] ([address]) YOSEF 30 U/L (Normal) Range: 14-82 79-Wgr-582686:12 CCP ANTIBODY (18090) Comments: PATIENT NOT FASTINGPERFORMED BY: [employer] [facility] [id number] BY: YES.TAP[address] [id number] CCP Antibodies IgG/IgA 8 {units} (Normal) Range: 0-19 Comments: Negative <20 Weak positive 20 - 39 Moderate positive 40 - 59 Strong positive >59 36-Ybh-768430:12 CAROL (ANTINUCLEAR ANTIBODY) Comments: PATIENT NOT FASTINGPERFORMED BY: [address] [id number] BY: [address] [id number] ([address]855) CAROL Direct Negative (Normal) 41-Luf-443990:12 RHEUMATOID FACTOR-QUANT Comments: PATIENT NOT FASTINGPERFORMED BY: [address] [id number] BY: [address] [id number] (12785) RA Latex Turbid. <10.0 {IU/mL} (Normal) Range: 0.0-13.9 66-Gsq-866552:12 SED RATE ERYTHROCYTE Comments: PATIENT NOT FASTINGPERFORMED BY: [address] [id number] BY: [address] [id number] (72286) Sedimentation Rate-Westergren 15 mm/h (Normal) Range: 0-40 97-Yuh-223673:12 C-REACTIVE PROTEIN Comments: PATIENT NOT FASTINGPERFORMED BY: [address] [id number] BY: [address] [id number] (51293) C-Reactive Protein, Quant 2.9 mg/L (Normal) Range: 0.0-4.9 13-Rjf-855871:12 CBC, PLATELETS & AUT DIFF Comments: PATIENT NOT FASTINGPERFORMED BY: [address] [id number] BY: [address] [id number] (47614) Immature Grans (Abs) 0.0 {x10E3/uL} (Normal) Range: [...] 3.77-5.28 WBC 7.8 {x10E3/uL} (Normal) Range: 3.4-10.8 61-Fjo-964235:12 VITAMIN B-12 Comments: PATIENT NOT FASTINGPERFORMED BY: YES.TAP Oucvvw2494 [facility] [id number] BY: [employer] [id number] (CYANOCOBALAMIN) (75745) Vitamin B12 579 pg/mL (Normal) Range: 232-1245 91-Sye-67854:31 LIPID PANEL (42369) Comments: PATIENT WAS FASTINGPERFORMED BY: YES.TAPSaint Barnabas Behavioral Health CenterPiqttx0227 [facility] [id number]; appt 01/02 LDL/HDL Ratio 1.9 {ratio} (Normal) [...] be changing to: Male Female 40 - 627429 50 - 280824 Triglycerides 145 mg/dL (Normal) Range: 0-149 Cholesterol, Total 240 mg/dL (Abnormal) Range: 100-199 24-Uls-88012:31 METABOLIC PANEL, COMPREHENSIVE Comments: PATIENT WAS FASTINGPERFORMED BY: LabCoSaint Barnabas Behavioral Health CenterBiqtsz0892 [facility] [id number] (23267) ALT (SGPT) 16 [iU]/L (Normal) Range: 0-32 [...] 8-27 Glucose 98 mg/dL (Normal) Range: 65-99 64-Vob-061876:13 METABOLIC PANEL, BASIC Comments: PATIENT NOT FASTINGPERFORMED BY: [facility]6370 [facility] [id number]; review on 01/02 (58018) Calcium 9.9 mg/dL (Normal) Range: 8.7-10.3 Carbon [...] 8-27 Glucose 98 mg/dL (Normal) Range: 65-99 49-Guy-732712:38 GGT (Gamma Glutamyl Comments: PATIENT NOT FASTINGPERFORMED BY: [facility]6370 [facility] [id number] Transferase) (12711) GGT 20 [iU]/L (Normal) Range: 0-60 38-Ula-283952:38 Alkaline Phosphatase (94132) Comments: PATIENT NOT FASTINGPERFORMED BY: [address] [id number] Alkaline Phosphatase 131 [iU]/L (Abnormal) Range: 39-117 64-Zye-712575:38 THYROXINE FREE (36942) Comments: PATIENT NOT FASTINGPERFORMED BY: [address] [id number] T4,Free(Direct) 1.92 ng/dL (Abnormal) Range: 0.82-1.77 15-Zbx-639195:38 FREE TRIDOTHYRONINE (T3) (47060) Comments: PATIENT NOT FASTINGPERFORMED BY: [address] [place] [id number] Triiodothyronine,Free,Serum 2.4 pg/mL (Normal) Range: 2.0-4.4 69-Qgn-460266:38 VITAMIN B-12 (CYANOCOBALAMIN) Comments: PATIENT NOT FASTINGPERFORMED BY: [facility] Noswof6137 [facility] [place] [id number] (08757) Vitamin B12 665 pg/mL (Normal) Range: 232-1245 17-Fxj-22691:06 VITAMIN B-12 (CYANOCOBALAMIN) Comments: PATIENT NOT FASTINGPERFORMED BY: [facility] Suoyvi6849 [facility] [place] [id number] (50862) Vitamin B12 1301 pg/mL (Abnormal) Range: 232-1245 3-Tps-053293:25 Metabolic Panel, Comprehensive Comments: PATIENT NOT FASTINGPERFORMED BY: [facility]Tr[facility]6370 [facility] [id number]; review on 08/28 (82050) ALT (SGPT) 10 [iU]/L (Normal) Range: 0-32 [...] 8-27 Glucose 84 mg/dL (Normal) Range: 65-99 8-Npb-225203:25 CBC WITH MANUAL DIFF (71223) Comments: PATIENT NOT FASTINGPERFORMED BY: [facility] Rzvyub7974 [facility] [id number] Immature Grans (Abs) 0.0 {x10E3/uL} (Normal) Range: [...] PANEL, COMPREHENSIVE Comments: PATIENT NOT FASTINGPERFORMED BY: YES.TAP Wlokko9560 [facility] [id number] (96894) ALT (SGPT) 10 [iU]/L (Normal) Range: 0-32 [...] 88 mg/dL (Normal) Range: 65-99 :46 TSH (81950) Comments: 6 weeks; PATIENT NOT FASTINGPERFORMED BY: YES.TAP Vcnlox8162 [facility] [id number] TSH 2.420 {uIU/mL} (Normal) Range: 0.450-4.500 :23 LIPID PANEL (23012) Comments: PATIENT WAS FASTINGPERFORMED BY: YES.TAPSaint Barnabas Behavioral Health CenterQnfnuj6617 [facility] [id number] LDL/HDL Ratio 1.6 {ratio_units} (Normal) Range: 0.0-3.2 [...] PANEL, COMPREHENSIVE Comments: PATIENT WAS FASTINGPERFORMED BY: [employer] Gecxzk9805 [facility] [id number] (00490) ALT (SGPT) 15 [iU]/L (Normal) Range: 0-32 [...] Glucose, Serum 96 mg/dL (Normal) Range: 65-99 16-Orm-59496:23 CBC W/AUTO DIFF WBC (79849) Comments: PATIENT WAS FASTINGPERFORMED BY: [facility] Iwhsal3763 [facility] [id number] Immature Grans (Abs) 0.0 {x10E3/uL} (Normal) Range: [...] (Normal) Range: 3.4-10.8 :23 Vitamin D Hydroxy (09538) Comments: PATIENT WAS FASTINGPERFORMED BY: [facility] Odgatl6428 [facility] [place] [id number] Vitamin D, 25-Hydroxy 41.5 ng/mL (Normal) Range: 30.0-100.0 Comments: Vitamin D deficiency has been defined by the Nicolaus ofFair[facility] Medical Centercine and an Endocrine Society practice guideline as alevel of serum 25-OH vitamin D less than 20 ng/mL (1,2).The Endocrine Society went on to further define vitamin Dinsufficiency as a level between 21 and 29 ng/mL (2).1. IOM (Nicolaus of Medicine). 2010. Dietary reference intakes for calcium and D. [place]: The National AcademMachina Press.2. Seng MF, Theresa ROMERO, Kieran KOWALSKI, et al. Evaluation, treatment, and prevention of vitamin D deficiency: an Endocrine Society clinical practice guideline. JCEM. 2010; 96(7):1911-30. :23 TSH (35958) Comments: PATIENT WAS FASTINGPERFORMED BY: [facility] Bxqcog7573 [facility] [place] [id number] TSH 0.429 {uIU/mL} (Abnormal) Range: 0.450-4.500 :23 VITAMIN B-12 (CYANOCOBALAMIN) Comments: PATIENT WAS FASTINGPERFORMED BY: [facility] Mhuykn8899 [facility] [id number] (98409) Vitamin B12 553 pg/mL (Normal) Range: 211-946 4-Uos-202056:52 CBC, PLATELETS & MANUAL DIFF Comments: PATIENT NOT FASTINGPERFORMED BY: [facility] Dqqrne6482 [facility] [place] [id number] (95712) Immature Grans (Abs) 0.0 {x10E3/uL} (Normal) Range: [...] 3.4-10.8 :09 Basic Metabolic Profile (BMP) Comments: [facility] Qeiattnoku7[address] [place], [place], [id number] GAP 9 (Normal) Range: 5-15 CO2 29.0 [...] :09 CBC-Complete Blood Cnt No Diff Comments: [facility] Lgzyshjxeh[address] [place], [place], [id number] MPV 9.1 fL (Normal) Range: 6.2-12.0 PLT [...] 5.7 K/mm3 (Normal) Range: 4.4-11.0 :53 Magnesium (60267) Comments: PATIENT NOT FASTINGPERFORMED BY: CheckiO [facility] Kdlcge9549 [facility] [id number] Magnesium, Serum 1.9 mg/dL (Normal) Range: 1.6-2.3 :53 METABOLIC PANEL, COMPREHENSIVE Comments: PATIENT NOT FASTINGPERFORMED BY: [facility] Smbxvb4006 [facility] [id number]; non- emergent till apt (63400) ALT (SGPT) 18 [iU]/L (Normal) Range: 0-32 [...] Glucose, Serum 83 mg/dL (Normal) Range: 65-99 50-Ejq-11375:53 TSH (53213) Comments: PATIENT NOT FASTINGPERFORMED BY: [facility]Bmatrix[facility] Ynltuv2484 [facility] [id number] TSH 1.810 {uIU/mL} (Normal) Range: 0.450-4.500 14-Jmj-393033:15 Vitamin D Hydroxy (39397) Comments: PATIENT NOT FASTINGPERFORMED BY: [facility] Aljire6897 [facility] [id number] Vitamin D, 25-Hydroxy 28.3 ng/mL (Abnormal) Range: 30.0-100.0 Comments: Vitamin D deficiency has been defined by the Nicolaus ofMedicine and an Endocrine Society practice guideline as alevel of serum 25-OH vitamin D less than 20 ng/mL (1,2).The Endocrine Society went on to further define vitamin Dinsufficiency as a level between 21 and 29 ng/mL (2).1. IOM (Nicolaus of Medicine). 2010. Dietary reference intakes for calcium and D. [place]: The National Academies Press.2. Seng MF, Theresa ROMERO, Kieran KOWALSKI, et al. Evaluation, treatment, and prevention of vitamin D deficiency: an Endocrine Society clinical practice guideline. JCEM. 2010; 96(7):1911-30. 67-Uui-844217:15 VITAMIN B-12 (CYANOCOBALAMIN) Comments: PATIENT NOT FASTINGPERFORMED BY: YES.TAP Xcdmts1144 [facility] [id number] (02511) Vitamin B12 447 pg/mL (Normal) Range: 211-946 91-Hbr-556497:15 CBC W/AUTO DIFF WBC Comments: PATIENT NOT FASTINGPERFORMED BY: [facility] Qdivfh1569 [facility] [id number] Information: SRC:ALONZO (21713) Immature Grans (Abs) 0.0 {x10E3/uL} (Normal) Range: [...] 3.77-5.28 WBC 5.6 {x10E3/uL} (Normal) Range: 3.4-10.8 05-Qoi-811880:15 METABOLIC PANEL, COMPREHENSIVE Comments: PATIENT NOT FASTINGPERFORMED BY: [facility] Jefrth2912 [facility] [id number] (44918) ALT (SGPT) 13 [iU]/L (Normal) Range: 0-32 [...] Glucose, Serum 87 mg/dL (Normal) Range: 65-99 02-Yci-981518:50 Urinalysis, Office (99261) UA - LEUKOCYTE ESTERASE Trace (Normal) UA - NITRITE Negative (Normal) URINE UROBILINGN TUNDE TIMED Normal mg/dL (Normal) UA - PROTEIN Negative mg/dL (Normal) UA - PH 5 (Abnormal) UA - BLOOD Negative (Normal) UA - SPECIFIC GRAVITY 1.025 (Normal) UA - KETONES Negative mg/dL (Normal) UA - BILIRUBIN Negative (Normal) UA - GLUCOSE Negative (Normal) 31-Csj-864713:15 URINE CESAR CULTURE (TUNDE COL Comments: PATIENT NOT FASTINGPERFORMED BY: [facility]Sal[facility] [id number] COUNT) (58285) Result 1 MUG (Normal) Comments: Mixed urogenital floraGreater than 100,000 colony forming units per mL Urine Culture,Comprehensive Final report (Normal) 56-Mdg-532995:29 URINE CESAR CULTURE-IDENTIFICATN Comments: PATIENT NOT FASTINGPERFORMED BY: [facility] 51eduSal[facility] [id number] Information: [id number] (20210) Result 1 MUG (Normal) Comments: Mixed urogenital flora1,000 Colonies/mL Urine Culture,Comprehensive Final report (Normal) 48-Udy-774661:29 URINE CESAR CULTURE-TUNDE COL Comments: PATIENT NOT FASTINGPERFORMED BY: [facility] Servicesrp Torqeedo [facility] [id number] Information: SRC:[facility] [id number] COUNT (65422) Result 1 MUG (Normal) Comments: Mixed urogenital flora25,000-50,000 colony forming units per mL Urine Final report (Normal) Culture,Comprehensive 46-Irq-997709:07 Urinalysis, Office (27306) UA - LEUKOCYTE ESTERASE Small (Normal) UA - NITRITE Negative (Normal) URINE UROBILINGN TUNDE TIMED Normal mg/dL (Normal) UA - PROTEIN Negative mg/dL (Normal) UA - PH 5 (Abnormal) UA - BLOOD Hemolyzed Trace (Normal) UA - SPECIFIC GRAVITY 1.015 (Normal) UA - KETONES Negative mg/dL (Normal) UA - BILIRUBIN Negative (Normal) UA - GLUCOSE Negative (Normal) 9-Tnh-814268:02 URINE CESAR CULTURE (TUNDE Comments: PATIENT NOT FASTINGPERFORMED BY: YES.TAPSaint Barnabas Behavioral Health CenterWjtldd9405 [facility] [id number] Information: SRC:[facility] [id number] COL COUNT) (96313) Result 1 NG36 (Normal) Comments: No growth in 36 - 48 hours. Urine Culture,Comprehensive Final report (Normal) 17-Sep-20149:51 CBC With Differential/Platelet Comments: PATIENT NOT FASTINGPERFORMED BY: YES.TAPSaint Barnabas Behavioral Health CenterBjiocn3252 [facility] [id number] Information: [id number] Immature Grans (Abs) 0.0 {x10E3/uL} (Normal) Range: [...] Panel (14) Comments: PATIENT NOT FASTINGPERFORMED BY: LabCoSaint Barnabas Behavioral Health CenterZerxxu6043 [facility] [id number] ALT (SGPT) 11 [iU]/L (Normal) Range: 0-32 [...] (Normal) Range: 65-99 :13 SED RATE ERYTHROCYTE (28324) Comments: PATIENT WAS FASTINGPERFORMED BY: [employer]6370 [facility] [id number] Sedimentation Rate-Westergren 6 mm/h (Normal) Range: 0-40 :13 C-REACTIVE PROTEIN (93451) Comments: PATIENT WAS FASTINGPERFORMED BY: YES.TAPSaint Barnabas Behavioral Health CenterVfsufd9630 [facility] [id number] C-Reactive Protein, Quant 2.2 mg/L (Normal) Range: 0.0-4.9 :13 CBC W/AUTO DIFF WBC Comments: PATIENT WAS FASTINGPERFORMED BY: [facility] Vkwjss9631 [facility] [id number] Information: [id number] (57985) Immature Grans (Abs) 0.0 {x10E3/uL} (Normal) Range: [...] 4.6 {x10E3/uL} (Normal) Range: 3.4-10.8 :13 TSH (53904) Comments: PATIENT WAS FASTINGPERFORMED BY: Limk [facility] [id number] TSH 0.584 {uIU/mL} (Normal) Range: 0.450-4.500 48-Nkx-559734:42 Urinalysis, Office (44812) UA - LEUKOCYTE ESTERASE Small (Normal) UA - NITRITE Negative (Normal) URINE UROBILINGN TUNDE TIMED Normal mg/dL (Normal) UA - PROTEIN Negative mg/dL (Normal) UA - PH 6 (Abnormal) UA - BLOOD Negative (Normal) UA - SPECIFIC GRAVITY 1.025 (Normal) UA - KETONES Negative mg/dL (Normal) UA - BILIRUBIN Negative (Normal) UA - GLUCOSE Negative (Normal) 58-Gax-752552:43 URINE CESAR CULTURE (TUNDE Comments: PATIENT NOT FASTINGPERFORMED BY: [employer] [facility] [id number] Information: SRC:UR [id number] COL COUNT) (48958) Result 1 MUG (Normal) Comments: Mixed urogenital flora25,000-50,000 colony forming units per mL Urine Final report (Normal) Culture,Comprehensive :13 Vitamin D Hydroxy (55774) Comments: PATIENT WAS FASTINGPERFORMED BY: Limk [facility] [id number] Vitamin D, 25-Hydroxy 38.7 ng/mL (Normal) Range: 30.0-100.0 Comments: Vitamin D deficiency has been defined by the Nicolaus ofMedicine and an Endocrine Society practice guideline as alevel of serum 25-OH vitamin D less than 20 ng/mL (1,2).The Endocrine Society went on to further define vitamin Dinsufficiency as a level between 21 and 29 ng/mL (2).1. IOM (Nicolaus of Medicine). 2010. Dietary reference intakes for calcium and D. [place]: The National Academies Press.2. Seng MF, Theresa ROMERO, Kieran KOWALSKI, et al. Evaluation, treatment, and prevention of vitamin D deficiency: an Endocrine Society clinical practice guideline. JCEM. 2010; 96(7):1911-30. :13 LIPID PANEL (18112) Comments: PATIENT WAS FASTINGPERFORMED BY: [employer]6370 [facility] [id number] LDL/HDL Ratio 1.8 {ratio_units} (Normal) Range: 0.0-3.2 [...] PANEL, COMPREHENSIVE Comments: PATIENT WAS FASTINGPERFORMED BY: [employer]6370 [facility] [id number] (06312) ALT (SGPT) 14 [iU]/L (Normal) Range: 0-32 [...] Glucose, Serum 86 mg/dL (Normal) Range: 65-99 27-Xbh-70925:13 VITAMIN B-12 (CYANOCOBALAMIN) Comments: PATIENT WAS FASTINGPERFORMED BY: [facility] ServicesSaint Barnabas Behavior[facility] Health CenterExmcms0932 [facility] [id number] (22718) Vitamin B12 >1999 pg/mL (Abnormal) Range: 211-946 32-Ktk-741744:00 Metabolic Panel, Basic Comments: 6 weeks; PATIENT NOT FASTINGPERFORMED BY: [facility] ServicesSaint Barnabas Behavior[facility] Health CenterBfgkgk7014 [facility] [id number] Information: [id number] (01361) Calcium, Serum 9.7 mg/dL (Normal) Range: 8.6-10.2 [...] Glucose, Serum 90 mg/dL (Normal) Range: 65-99 68-Msu-615020:24 URINE CESAR CULTURE-IDENTIFICATN Comments: PATIENT NOT FASTINGPERFORMED BY: [place] 5345170 [facility] [id number] Information: [id number] (51897) Result 1 ENTEGA (Abnormal) Comments: Enterococcus wdrjogarzn57,000-25,000 colony forming units per mLNote: For enterococci with intrinsic intermediate-level resistance tovancomycin, such as E. casseliflavus and E. gallinarum, VRE infection control measures are not applicable, per the CLSI (formerly NCCLS).For Enterococcus species, cephalosporins, aminoglycosides (except forhigh-level resistance screening), clindamycin, and trimethoprim-curtis lfamethoxazole are not effective clinically. Fluoroquinolones areused primarily for treating urinary tract infections. (CLSI, Q516-S45,2009) S = Susceptible; I = Intermediate; R = Resistant * P = Positive; N = Negative MICS are expressed in micrograms per mL Antibiotic RSLT#1 RSLT#2 RSLT#3 RSLT#4Ciprofloxacin SGentami lien 500 SLevofloxacin SNitrofurantoin IPenicillin SStreptomycin 2000 STetracycline SVancomycin R Urine Final report (Abnormal) Culture,Comprehensive 47-Qpv-350744:51 METABOLIC PANEL, Comments: PATIENT NOT FASTINGPERFORMED BY: [facility]6370 [facility] [id number] Information: [id number] COMPREHENSIVE (71473) ALT (SGPT) 20 [iU]/L (Normal) Range: 0-32 [...] Glucose, Serum 80 mg/dL (Normal) Range: 65-99 25-Ilo-415844:04 Microscopic Examination Comments: PATIENT NOT FASTINGPERFORMED BY: [employer]70 [facility]Car[facility] [id number] Bacteria Few (Normal) Mucus Threads Present (Normal) Epithelial Cells (non renal) 0-10 {/hpf} (Normal) Range: 0 - 10 RBC None seen {/hpf} (Normal) Range: 0 - 2 WBC None seen {/hpf} (Normal) Range: 0 - 5 31-Qcj-744363:04 URINE CESAR CULTURE (TUNDE COL Comments: PATIENT NOT FASTINGPERFORMED BY: [employer]6370 [facility]Car[facility] [id number] COUNT) (65316) Antimicrobial MIHEAD (Normal) Comments: S = Susceptible; [...] mL (Abnormal) Urine Final report Culture,Comprehensive (Abnormal) 57-Uor-429429:04 URINALYSIS, W/ MICRO Comments: PATIENT NOT FASTINGPERFORMED BY: [facility]6370 [facility] [id number] Information: SRC: [id number] (83797) Microscopic Examination See below: (Normal) Comments: Microscopic was indicated and was performed. Microscopic Examination MICRON (Normal) Comments: Microscopic follows if indicated. Nitrite, Urine Negative (Normal) Bilirubin Negative (Normal) Urobilinogen,Semi-Qn 0.2 mg/dL (Normal) Range: 0.0-1.9 Ketones Negative (Normal) Occult Blood Negative (Normal) Glucose Negative (Normal) Protein Negative (Normal) WBC Esterase Negative (Normal) Appearance Clear (Normal) Urine-Color Yellow (Normal) pH 6.0 (Normal) Range: 5.0-7.5 Specific [place] 1.010 (Normal) Range: 1.005-1.030 36-Vem-786374:00 METABOLIC PANEL, Comments: PATIENT NOT FASTINGPERFORMED BY: [facility]6370 [facility] [id number] Information: [id number] COMPREHENSIVE (70445) ALT (SGPT) 11 [iU]/L (Normal) Range: 0-32 [...] Glucose, Serum 84 mg/dL (Normal) Range: 65-99 26-Guh-48976:26 CMP Comments: will review at 11/05 appt [...] CHOL 200 mg/dL (Normal) Comments: <200 mg/dL Whifcqpeb021-905 mg/dL Borderline>240 mg/dL High Risk :26 TSH 1.85 {uIU/mL} (Normal) Range: 0.358-3.74 :26 VITD 72.9 mg/mL (Normal) Comments: will review at - appt Comments: Vitamin D 25(OH) Status RangeDeficiency <20 ng/mL (50nmol/L)Insuffciency 20 - 30 ng/mL (50 - 75 nmol/L)Sufficiency 30 - 100 ng/mL (75 - 250 nmol/L)Toxicity >100 ng/mL (>250 nmol/L) 5-Wge-966868:05 Urinalysis, Office (01116) UA - LEUKOCYTE ESTERASE Negative (Normal) UA - NITRITE Negative (Normal) URINE UROBILINGN TUNDE TIMED 2 mg/dL (Normal) UA - PROTEIN 30 mg/dL (Normal) UA - PH 6.0 (Normal) Comments: 5.5 UA - BLOOD Negative (Normal) UA - SPECIFIC GRAVITY 1.030 (Abnormal) UA - KETONES Small mg/dL (Normal) UA - BILIRUBIN Negative (Normal) UA - GLUCOSE Negative (Normal) 2-Yhv-012456:33 URINE CESAR CULTURE-TUNDE COL Comments: PERFORMED BY: LabCoSaint Barnabas Behavioral Health CenterCokuaw4786 [facility] [id number] COUNT (65906) Result 1 MUG (Normal) Comments: Mixed urogenital flora10,000-25,000 colony forming units per mL Urine Final report (Normal) Culture,Comprehensive 19-Kqe-468951:52 URINE CESAR CULTURE-TUNDE COL Comments: PATIENT NOT FASTINGPERFORMED BY: LISBETH [facility] Nkhytv8320 [place] [place] [id number] Information: SRC:UR [id number] COUNT (14616) Antimicrobial MIHEAD (Normal) Comments: S = Susceptible; [...] CHOL 203 mg/dL (Abnormal) Comments: <200 mg/dL Xahmifnyj861-096 mg/dL Borderline>240 mg/dL High Risk :47 TSH 1.52 {uIU/mL} (Normal) Range: 0.358-3.74 :47 VITD 59.3 mg/mL (Normal) Comments: Vitamin D 25(OH) Status RangeDeficiency <20 ng/mL (50nmol/L)Insuffciency 20 - 30 ng/mL (50 - 75 nmol/L)Sufficiency 30 - 100 ng/mL (75 - 250 nmol/L)Toxicity >100 ng/mL (>250 nmol/L) :44 CBC, PLATELETS & AUT DIFF Comments: PATIENT NOT FASTINGPERFORMED BY: LabCoSaint Barnabas Behavioral Health CenterBokhnw8741 [facility] [id number] Information: [id number] (32031) Immature Grans (Abs) 0.0 {x10E3/uL} (Normal) Range: [...] (Normal) Range: 3.4-10.8 :44 FOLIC ACID SERUM (31349) Comments: PATIENT NOT FASTINGPERFORMED BY: YES.TAPSaint Barnabas Behavioral Health CenterIipqbh9722 [facility] [id number] Folate (Folic Acid), Serum 14.4 ng/mL (Normal) Comments: A serum folate concentration of less than 3.1 ng/mL isconsidered to represent clinical deficiency. :44 RETICULOCYTE COUNT MANUL Comments: PATIENT NOT FASTINGPERFORMED BY: [facility]6370 [facility] [id number] (47245) Reticulocyte Count 1.1 % (Normal) Range: 0.6-2.6 :44 LDH (LD) (LACTATE DEHYDROGENASE) Comments: PATIENT NOT FASTINGPERFORMED BY: [facility]6370 [facility] [id number] (84611) LDH 250 [iU]/L (Abnormal) Range: 0-214 :44 IRON BINDING CAPACITY (TIBC) Comments: PATIENT NOT FASTINGPERFORMED BY: [facility]6370 [facility] [id number] (93605) Iron Saturation 16 % (Normal) Range: 15-55 Iron, Serum 52 ug/dL (Normal) Range: 35-155 UIBC 270 ug/dL (Normal) Range: 150-375 Iron Bind.Cap.(TIBC) 322 ug/dL (Normal) Range: 250-450 :44 FERRITIN (86830) Comments: PATIENT NOT FASTINGPERFORMED BY: LabCoSaint Barnabas Behavioral Health CenterCccvis8754 [facility] [id number] Ferritin, Serum 42 ng/mL (Normal) Range: 15-150 [...] 17-Aug-20129:50 TSH 1.02 {uIU/mL} (Normal) Range: 0.358-3.74 85-Nfw-347887:02 BILAT SCRN DIGITAL & CAD Radiology Report [...] Rowe M.D.July 23, 2012 at 2:35:49 PM [id number] Signed GP/GP If you are the referring physicia n and would like to consult with theradiologist who provided this interpretation, please contact Ofelia Rodriguez at [phone]. If this radiologist is unavailable, youwill be directed to [facility] radiologist to assist. If you are a patient with a question regarding this report, pleasecontactyour referring physician directly. Professional Interpretation Provided By: [email or web address], Phone , These documents contain legally protected [...] 3 1439 Sign by: Dashawn Rowe MD 9-Lxs-086604:59 KIDNEY Radiology Report See Note (Normal) Comments: [...] Welsh M.D.July 11, 2012 at 5:00:06 PM [id number] Signed TT/TT If you are the referring physician and would like to consult with theradiologist who provided this interpretation, please contact Brittney Mccormack M.D. at [phone]. If this radiologist is unavailable, youwillbe directed to another radiologist to assist. If you are a patient with a question regarding this report, pleasecontactyour referring physician directly. Professional Interpretat ion Provided By: [email or web address], Phone , These documents contain legally protected and confidential healthinformation intended only for the use of the individual or entity merged with [facility]. If you are not the [...] MD on 07/11/121825 Sign by: Blaise CARRANZA,Brittney 6-Qdx-450158:59 TRANSVAGINAL NON- Radiology Report See Note (Normal) [...] Welsh M.D.July 11, 2012 at 4:45:28 PM [id number] Signed TT/TT If you are the referring physician and would like to consult with sebastian dunlap who provided this interpretation, please contact Brittney Mccormack M.D. at [phone]. If this radiologist is unavailable, youwillbe directed to another radiologist to assist. If you are a p atient with a question regarding this report, pleasecontactyour referring physician directly. Professional Interpretation Provided By: [email or web address], Phone , These documents contain legally protected [...] CHOL 210 mg/dL (Abnormal) Comments: <200 mg/dL Sbopbfvyj788-439 mg/dL Borderline>240 mg/dL High Risk :44 MG [...] well characterize low-attenuation left renal lesion,probably sales service representative of a cyst. Consider follow-up renal sonographyforfurther evaluation as clinically warranted. Signed:Matilda AvilesJuly 04, 2012 at 5:12:21 PM [id number] Signed DL/DL If you are the referring physician and would like to consult with theradiologist who provided this interpretation, please contact Ofelia Kyle at [phone]. If this radiologist is unavailable, youwillbe directed to another radiologist to assist. If you are a patient with a question regarding this report, pleasecontactyo ur referring physician directly. Professional Interpretation Provided By: [email or web address], Phone , These documents contain legally protected [...] on 07/04/121714 Sign by: Salinas Champion MD 59-Xui-975478:18 CRE GFRAA 41 mL/min (Abnormal) GFR 34 mL/min (Abnormal) CREAT 1.6 mg/dL (Abnormal) Range: 0.6-1.0 01-Efi-964452:15 BMP GAP 7 (Normal) Range: 5-15 CO2 [...] 7-18 GLU 80 mg/dL (Normal) Range: 70-110 80-Mak-831518:15 TSH 3.05 {uIU/mL} (Normal) Range: 0.358-3.74 :22 B12 577 pg/mL (Normal) Range: 211-946 Comments: Performed at: - [facility] [id number] Director: Patito Segovai MD, Phone: [phone] :[phone] CBCMD RBCM NORM C+C {NORMAL} (Normal) [...] D deficiency has been defined by the Nicolaus ofMedicine and an Endocrine Society practice guideline as alevel of serum 25-OH vitamin D less than 20 ng/mL (1,2).The Endocrine Society went on to further define vitamin Dinsufficiency as a level between 21 and 29 ng/mL (2).1. IOM (Nicolaus of Medicine). 2010. Dietary reference intakes for calcium and D. [place]: The National AcademMachina Press.2. Seng MF, Theresa ROMERO, Kieran KOWALSKI, et al. Evaluation, treatment, and prevention of vitamin D deficiency: an Endocrine Society clinical practice guideline. JCEM. 2010; 96(7):1911-30. 20-Jwl-129981:37 BREAST UNILATERAL Radiology Report See Note (Normal) [...] Category 3: Probably Benign Finding - Initial Dgagn-PudahvyuAwpads-tc Suggested. Signed:Dashawn Rowe M.D.November 09, 2011 at 2:49:17 PM [id number] Signed GP/GP If you are the referring physician and would like to consult with theradiologist who provided this interpretation, please contact Herb blake M.D. at [phone]. If this radiologist is unavailable, youwill be [...] 11/09/11 1456 Sign by: Dashawn Rowe MD 00-Yfg-364889:47 BREAST UNILATERAL Radiology Report See Note (Normal) [...] Category 3: Probably Benign Finding - Initial Msozj-IbnmosmhHennnr-xx Suggested. To consult with a radiologist regarding this report, please call our [id number] line @ Dictated on 06/22/11 1428 by Wendy Rowe MD on 06/22/11 1547 by ITS IMPORTSign by Dashawn Rowe MD on 06/22/11 1548 Sign by: ___ Dashawn Rowe MD 99-Hro-573017:47 UNILAT LT DIAG DIGITAL & CAD Radiology [...] radiologist regarding this report, please call our [id number] line @ Dictated on 06/22/11 1357 by Wendy Rowe MD on 1450 by ITS IMPORTSign by Dashawn Rowe MD on 06/22/11 1451 Sign by: Dashawn Rowe MD 6-Lfg-835381:14 CERV SPINE,MIN 4 VIEWS Radiology Report See [...] radiologist regarding this report, please call our [id number] line @ Dictated on 04/13/11 1408 by [...] or = 500 mg/dL :38 [place], [address] 47.8 ng/mL (Normal) Range: 30.0-100.0 Comments: Vitamin D deficiency has been defined by the Nicolaus ofMedicine and an Endocrine Society practice guideline as alevel of serum 25-OH vitamin D less than 20 ng/mL (1,2).The Endocrine Society went on to further define vitamin Dinsufficiency as a level between 21 and 29 ng/mL (2).1. IOM (Nicolaus of Medicine). 2011. Dietary reference intakes for calcium and D. [place]: The National Academies Press.2. Seng MF, Theresa ROMERO, Kieran KOWALSKI, et al. Evaluation, treatment, and prevention of vitamin D deficiency: an Endocrine Society clinical practice guideline. JCEM. 2010; 96(7): 1911-30.Performed at: [address] [id number] Director: Patito Segovia MD, Phone: [phone] :[phone] VITAMIN B12 781 pg/mL (Normal) Range: [...] 02/02/11 0843 Sign by: Dashawn Rowe MD 20-Uxj-321864:03 Thin prep Pap Comments: Source.............Cervical;EndocervicalNo. of containers..01 CYTYC Thin Prep VialPERFORMED BY: [facility] [address] [facility] [place] [id number] Information: [id number] ([id number]) Note: PAPSMR (Normal) Comments: The Pap smear [...] ; Routine gynecolog ical examina Deidre Aguila Smoke Jumper (ASCP) 19-Kju-351635:01 BILAT SCRN DIGITAL & CAD Radiology Report [...] 11/10/10 1453 Sign by: Dashawn Rowe MD 19-Pej-592686:16 COMP METABOLIC Comments: appt 11/05/10 GAP 10 [...] 7-18 GLU 79 mg/dL (Normal) Range: 70-110 95-Fdw-251272:16 LIPID VLDL 24 mg/dL (Normal) Range: 5-40 [...] 200-240 mg/dL Borderline >240 mg/dL High Risk 41-Lda-204766:16 TSH 0.99 {uIU/mL} (Normal) Range: 0.358-3.74 69-Cvk-988987:16 VIT D,25 91561 45.6 ng/mL (Normal) Range: 32.0-100.0 Comments: Recent studies consider the lower limit of 32.0 ng/mL to zoraida threshold for optimal health.Everardo HEREDIA. J Nutr. 2004;135(2):317-22.Performed at: [facility] [place] [address]Lab Director: Patito Segovia MD, Phone: [phone] 81-Jwr-675062:16 VITAMIN B12 582 pg/mL (Normal) Range: 254-1320 Comments: There is a low frequency possibility that high titers ofintrinsic blocking antibodies may not be completely inactivated during the reaction pretreatment stepof this testing method. If test results are i n conflictwith the clinical diagnosis, patient should be testedfor the presence of intrinsic factor blocking antibodies. 43-Iuv-231542:20 CBCD,SMEAR DIFF PLT EST SeeNote (Normal) Comments: [...] 4.2-5.4 WBC 5.4 K/mm3 (Normal) Range: 4.4-11.0 40-Eyi-645993:20 COMP METABOLIC GAP 9 (Normal) Range: 5-15 [...] 7-18 GLU 92 mg/dL (Normal) Range: 70-110 37-Rfq-358275:20 LIPID HDL 63 mg/dL (Normal) Comments: Reference [...] {uIU/mL} (Normal) Range: 0.358-3.74 :20 VIT D,25 07721 43.2 ng/mL (Normal) Range: 32.0-100.0 Comments: Recent studies consider the lower limit of 32.0 ng/mL to zoraida threshold for optimal health.Mcgee . J Nutr. 2004;135(2):317-22.Performed at: [place] [address]Lab Director: Patito Segovia MD, Phone: [phone] :20 VITAMIN B12 516 pg/mL (Normal) Range: 254-1320 Comments: There is a low frequency possibility that high titers ofintrinsic blocking antibodies may not be completely inactivated during the reaction pretreatment stepof this testing method. If test results are i n conflictwith the clinical diagnosis, patient should be testedfor the presence of intrinsic factor blocking antibodies. :44 VIT D,25 38020 38.6 ng/mL (Normal) Range: 32.0-100.0 Comments: Recent studies consider the lower limit of 32.0 ng/mL to zoraida threshold for optimal health.Mcgee BW. J Nutr. 2004;135(2):317-22.Performed at: [address] [address]Lab Director: Patito Segoiva MD, Phone: [phone] :44 VITAMIN B12 398 pg/mL (Normal) Range: [...] intrinsic factor blocking antibodies. :24 VITD 1,25 31141 57.3 pg/mL (Normal) Range: 10.0-75.0 Comments: Performed at: [address] [id number] Director: Roderick Ramirez MD, Phone: [phone] 19-Ftr-431688:26 CBCD,SMEAR DIFF RED CELL MORPH SeeNote {NORMAL} [...] Report See Note (Normal) Comments: Exam Number: [id number] CLINICAL:69 year old female with numbness in [...] There is a fetalconfiguration of the right DRIER TENDER NAPHTHALENE. No definite P1 segment connectingthe artery to the basilar artery is identified. IMPRESSION:No demonstrated aneurysm. Anatomic variations of the [place] of [place]. 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 The rightinternal carotid arteries supplies the left [place]IN[place] territory, and islarger than the left internal carotid. 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 Reported By: DOMENICA MCGARRY M.D. 08-Cfo-511372:41 BRAIN W/WO CONTRAST Radiology See Note Comments: Exam Number: [id number] CLINICAL: MRI BRAIN WITHOUT AND WITH CONTRAST [...] mild degenerative remodeling of the mandibular condyles.ADDENDUM: [id number] MRI/BRWW CLINICAL: MRI BRAIN WITHOUT AND WITH [...] CHOL 188 mg/dL (Normal) Comments: <200 mg/dL Toquadfws249-128 mg/dL Borderline>240 mg/dL High Risk HDL 54 [...] Range: 0.358-3.74 5 (Normal) :3 VIT D,25 83206 29.3 ng/mL (Abnormal) Range: 32.0-100.0 5 Comments: Recent studies consider the lower limit of 32.0 ng/mL to zoraida threshold for optimal health.Everardo HEREDIA. J Nutr. 2004;135(2):317-22.Performed at: [facility] [place] [address]Lab Director: Patito Segovia MD, Phone: [phone] :3 VITAMIN B12 158 pg/mL (Abnormal) Range: [...] Report See Note (Normal) Comments: Exam Number: [id number] CLINICAL:Right upper quadrant pain CT ABDOMEN WITH [...] parapelvic renal cysts. Reported By: PRADIP SALVADOR 66-Mlw-625552:29 BMP BUN 16 mg/dL (Normal) Range: 7-18 [...] mg/dL (Normal) Range: 70-110 12-Jun-20099:37 VIT D,25 65472 26.3 ng/mL (Abnormal) Range: 32.0-100.0 Comments: Recent studies consider the lower limit of 32.0 ng/mL to zoraida threshold for optimal health.Everardo HEREDIA. J Nutr. 2004;135(2):317-22.Performed at: [address] [id number] Director: Ade Rubio MD 28-Jax-674688:36 GALLBLADDER (HP) Radiology Report See Note (Normal) Comments: Exam Number: [id number] LIMITED ABDOMINAL ULTRASOUND FOR GALLBLADDER HISTORYChest pain. [...] kidneyis suggested. Reported By: DOMENICA GATES M.D. 8-Cwj-743413:21 Lipase (51135) Comments: PATIENT NOT FASTINGPERFORMED BY: [address] [id number] Lipase, Serum 42 U/L (Normal) Range: 0-59 9-Wwf-851136:21 Amylase (04179) Comments: PATIENT NOT FASTINGPERFORMED BY: [place] [address] [facility] [id number] Amylase, Serum 54 U/L (Normal) Range: 31-124 :21 CBC WITH MANUAL DIFF Comments: PATIENT NOT FASTINGPERFORMED BY: [facility] [id number] Information: [id number] (34265) Baso (Absolute) 0.1 {x10E3/uL} (Normal) Range: 0.0-0.2 [...] PANEL, COMPREHENSIVE Comments: PATIENT NOT FASTINGPERFORMED BY: [facility] [id number] (90152) ALT (SGPT) 15 [iU]/L (Normal) Range: 0-40 [...] Comments: DR DAVIS ORDERED CMP,CBCMD,CAROL,RF,TSH,CRP,SED,CCP,LIPIDDR DONALDLANKIORDEREDCMP,CBCD,CRP,SED,VITD,CCP,HEPBSAB,HEPBSAG,HEPC,CAROL,RF,HEPBCORE IGM,[place] [id number] CAROL-DIRECT SeeNote (Normal) Comments: Result: Negative :48 ANTI-CCP 291705 4 {units} (Normal) Comments: DR DAVIS ORDERED [...] mm/h (Normal) Range: 0-30 :48 HB CORE [id number] SeeNote (Normal) Comments: DR DAVIS ORDERED CMP,CBCMD,CAROL,RF,TSH,CRP,SED,CCP,LIPIDDR VELLANKIORDEREDCMP,CBCD,CRP,SED,VITD,CCP,HEPBSAB,HEPBSAG,HEPC,CAROL,RF,HEPBCORE IGM,UA Comments: Result: Negative Performed At: [facility] [place], [place] [id number] At: [facility] [place] [phone] :48 HBsAg Comments: DR DAVIS ORDERED CMP,CBCMD,CAROL,RF,TSH,CRP,SED,CCP,LIPIDDR [...] of antibody present. :48 HEP C AB [id number] 0.1 (Normal) Comments: DR DAVIS ORDERED CMP,CBCMD,CAROL,RF,TSH,CRP,SED,CCP,LIPIDDR [...] VELLANKIORDEREDCMP,CBCD,CRP,SED,VITD,CCP,HEPBSAB,HEPBSAG,HEPC,CAROL,RF,HEPBCORE IGM,UA Range: 0.358-3.74 :48 VIT D,25 09430 18.0 ng/mL (Abnormal) Comments: DR DAVIS ORDERED CMP,CBCMD,CAROL,RF,TSH,CRP,SED,CCP,LIPIDDR VELLANKIORDEREDCMP,CBCD,CRP,SED,VITD,CCP,HEPBSAB,HEPBSAG,HEPC,CAROL,RF,HEPBCORE IGM,UA Range: 32.0-100.0 Comments: Recent studies consider the lower limit of 32.0 ng/mL to zoraida threshold for optimal health.Everardo HEREDIA. J Nutr. 2004;135(2):317-22. 7-Glg-498848:10 BILAT SCRN DIGITAL & CAD Radiology Report See Note (Normal) Comments: Exam Number: [id number] MAMMOGRAM, BILATERAL SCREENING DIGITAL AND CAD HISTORYRoutine [...] (MQSA). The mammograms werealso examined with c Remotiumuter-aided detection software ([employer], [employer].). Reported By: DOMENICA GATES M.D. 5-Wdk-518283:09 SPINE,LUMBAR (ROUTINE) Radiology Report See Note (Normal) Comments: Exam Number: [id number] CLINICAL:68-year-old female with low back pain for [...] Report See Note (Normal) Comments: Exam Number: [id number] CLINICAL DATALow back pain, flank pain, right [...] disc disea se involving multiple levels from N5aanovsn S1. There is degenerative hypertrophic change of [...] Report See Note (Normal) Comments: Exam Number: [id number] DORSAL SPINE Three images of the dorsal [...] middle dorsal spine. Reported By: HEATHER JACKSON 7-Rrp-598145:22 Urine Culture,Comprehensive Comments: Clinical Information: SRC:UR PERFORMED BY: [facility] [id number] Result 1 NG36 (Normal) Comments: No growth in 36 - 48 hours. Urine Culture,Comprehensive Final report (Normal) 8-Fyk-459418:18 PELVIS WITHOUT IV CONTRAST Radiology Report See Note (Normal) Comments: Exam Number: [id number] CT SCANS OF ABDOMEN AND PELVIS HISTORYThe [...] Report See Note (Normal) Comments: Exam Number: [id number] CT SCANS OF ABDOMEN AND PELVIS HISTORYThe [...] the spine. Reported By: DOMENICA GATES M.D. 0-Nml-451088:1 C-REACTIVE PROT 4.05 mg/L (Abnormal) Range: 0.0-3.0 [...] 6.4-8.2 GLU 84 mg/dL (Normal) Range: 70-110 0-Yww-504121:10 ESR SED RATE 14 mm/h (Normal) Range: 0-30 7-Yvj-831355:40 Urinalysis, Office (35960) UA - BILIRUBIN Negative (Normal) UA - BLOOD Non Hemolyzed Trace (Normal) UA - GLUCOSE Negative (Normal) UA - KETONES Negative mg/dL (Normal) UA - LEUKOCYTE ESTERASE Negative (Normal) Comments: aw UA - NITRITE Negative (Normal) UA - PH 6.0 (Normal) UA - PROTEIN Negative mg/dL (Normal) UA - SPECIFIC GRAVITY 1.010 (Normal) URINE UROBILINGN TUNDE TIMED Normal mg/dL (Normal) 3-Zdw-184444:28 URINE CESAR CULTURE-TUNDE COL Comments: PATIENT NOT FASTINGClinical Information: SRC:UR ADD [id number] PERFORMED BY: [facility] Fxsokc7[address] [facility] [id number] COUNT ([id number]) Result 1 MUG (Normal) Comments: Mixed urogenital flora10,000-25,000 colony forming units per mL Urine Final report (Normal) Culture,Comprehensive 8-Plo-632147:09 Urinalysis, Office (54786) UA - BILIRUBIN Negative (Normal) UA - [...] mg/dL VLDL 16 mg/dL (Normal) Range: 5-40 2-Lys-093006:59 LQD PAP [id number] Comments: CYTOLOGY INFORMATION:- CLINICAL INFORMATION: POSTMENOPAUSAL- DATE LMP/MENOPAUSE: MENOPAUSE- COLLECTION VIAL: Thin Prep Vial- STEAK TENDERIZER MACHINE SOURCE: CERVICAL/ENDOCERVICAL- COLLECTION TECHNIQUE: BRUSH/SPATULA ADEQ Comment (Normal) Comments: Satisfactory for evaluation. Endocervical and/or squamous metaplasticcells (endocervical component) are present. COMM . (Normal) DIAGN Comment (Normal) Comments: NEGATIVE FOR INTRAEPITHELIAL LESION AND MALIGNANCY. HPV RFLX Comment (Normal) Comments: The HPV DNA reflex criteria were not met with this specimenresult therefore, no HPV testing was performed. .Performed At: [address] [id number] PAPR Comment (Normal) Comments: The Pap smear is a screening test designed to aid in thedetection of premalignant and malignant conditions of theuterine cervix. It is not a diagnostic procedure andshould not be used as the sole means of detecting cervicalcancer. Both false-positive and false-negative reports dooccur. . PERFORM Comment (Normal) Comments: Diandra Bee, Smoke Jumper (ASCP) 16-Sng-288793:36 DEXA BONE DENSITY STUDY (HP) Radiology Report See Note (Normal) Comments: Exam Number: [id number] BONE DENSITOMETRY TECHNIQUE Bone densitometry of the [...] within normallimits. Reported By: DOMENICA GATES M.D. 89-Zec-71015:55 COMP METABOLIC A/G 1.3 {RATIO} (Normal) Range: [...] T PROT 6.1 g/dL (Abnormal) Range: 6.4-8.2 79-Hqg-742103:12 FUNEZ A AB 004480 FUNEZ A TYPE 10 <1:8 (Normal) FUNEZ [...] and its performancecharacteristics have been determined by [employer]. Performance characteristics refer tothe analytical performance of the test. FUNEZ A TYPE 2 <1:8 (Normal) FUNEZ A TYPE 4 <1:8 (Normal) FUNEZ A TYPE 7 <1:8 (Normal) FUNEZ A TYPE 9 <1:8 (Normal) :12 ESR SED RATE 14 mm/h (Normal) Range: 0-30 27-Jmk-415514:12 RA LATEX 6502 7.1 {IU/mL} (Normal) Range: 0.0-13.9 Comments: Performed At: [facility] [place], [place] [id number] At: [facility]w[address] [place], [place] [id number] 13-Kia-860214:12 TSH 0.16 {uIU/mL} (Abnormal) Range: 0.34-4.82 99-Pgp-272502:21 PELVIS WITH CONTRAST Radiology Report See Note (Normal) Comments: Exam Number: [id number] CT ABDOMEN AND PELVIS WITH CONTRAST. CLINICAL [...] pericardial effusion. Reported By: TODD KENNEDY M.D. 09-Kpw-474126:11 ABDOMEN WITH CONTRAST Radiology Report See Note (Normal) Comments: Exam Number: [id number] CT ABDOMEN AND PELVIS WITH CONTRAST. CLINICAL [...] pericardial effusion. Reported By: TODD KENNEDY M.D. 65-Pom-586519:38 MARCUS 45 U/L (Normal) Range: 25-115 25-Bxg-341435:38 CBCD,SMEAR DIFF BAND 1 % (Normal) Range: [...] 47-70 WBC 5.9 K/mm3 (Normal) Range: 4.4-11.0 61-Aya-233515:38 LIPASE 190 U/L (Normal) Range: 114-286 26-Sfr-037512:45 BILAT SCRN DIGITAL & CAD Radiology Report See Note (Normal) Comments: Exam Number: [id number] MAMMOGRAM, BILATERAL SCREENING DIGITAL AND CAD HISTORYRoutine [...] werealso exam ined with computer-aided detection software ([employer], [employer].). Reported By: DOMENICA GATES M.D. 90-Pub-08639:33 CHEST W/WO CONTRAST Radiology Report See Note (Normal) Comments: Exam Number: [id number] CT SCAN OF CHEST HISTORYLung nodule. Consecutive [...] mg/dL VLDL 20 mg/dL (Normal) Range: 5-40 93-Cgy-51153:07 TSH 0.40 {uIU/mL} (Normal) Range: 0.34-4.82 Plan [...] itching : [facility] Indication: Vaginal itching Low Back Pain [...] Indication: Chest pain Chest pain : Reviewed Fowl Blood Tester Letter Indication: Chest pain Osteoarthritis, unspecified [...] Hypercholesterolemia Planned Observations CBC W/AUTO DIFF WBC (44911)Indication: Prolonged QT interval On: :18 Request METABOLIC PANEL, COMPREHENSIVE (03306)Indication: Prolonged QT interval On: 0-Jxc-971428:18 Request VITAMIN B-12 (CYANOCOBALAMIN) (33958)Indication: DEFICIENCY, B-COMPLEX NEC On: :18 Request TSH (50544)Indication: Acquired hypothyroidism On: :17 Request LIPOPROTEIN, BLD, BY NMR (14710)Indication: Hypercholesterolemia On: :17 Request VITAMIN B-12 (CYANOCOBALAMIN) (78583)Indication: DEFICIENCY, B-COMPLEX NEC On: :18 Request LIPID PANEL (16271)Indication: Hypercholesterolemia On: :18 Request CBC W/AUTO DIFF WBC (21863)Indication: Right flank pain On: :17 Request METABOLIC PANEL, COMPREHENSIVE (58238)Indication: Right flank pain On: 4-Qee-432330:17 Request Vitamin D Hydroxy (60134)Indication: Vitamin D deficiency, unspecified On: :17 Request Urinalysis, Office (65137)Indication: Urinary frequency On: 81-Wos-357646:22 Request VITAMIN B-12 (CYANOCOBALAMIN) (66547)Indication: Other vitamin B12 deficiency anemia On: :28 Request Comments: Lot:[id number]:04/29Dose:1mlRoute:IMSite:r arm Given By:TAVON signed Vitamin D Hydroxy (62731)Indication: Vitamin D deficiency, unspecified On: :42 Request LIPID PANEL (41237)Indication: Hypercholesterolemia On: :42 Request METABOLIC PANEL, COMPREHENSIVE (57592)Indication: Essential hypertension On: :36 Request TSH (99950)Indication: Acquired hypothyroidism On: :36 Request CBC with auto diff (35265)Indication: Abdominal pain, acute, right lower quadrant On: 7-Axb-198922:06 Request METABOLIC PANEL, COMPREHENSIVE (19969)Indication: Abdominal pain, acute, right lower quadrant On: 2-Hmy-857736:06 Request Urinalysis, Office (96220)Indication: Low Back Pain (Renamed from LBP (low back pain)) On: 24-Vmb-593462:09 Request Vitamin D Hydroxy (68113)Indication: Vitamin D deficiency, unspecified On: 00-Qdu-977211:32 Request METABOLIC PANEL, COMPREHENSIVE (22846)Indication: Essential hypertension On: :31 Request LIPID PANEL (52700)Indication: Hypercholesterolemia On: : Request TSH (19742)Indication: Acquired hypothyroidism On: : Request LIPID PANEL (87146)Indication: Hypercholesterolemia On: :45 Request TSH (33254)Indication: Acquired hypothyroidism On: :44 Request METABOLIC PANEL, COMPREHENSIVE (43822)Indication: Essential hypertension On: :44 Request CBC, PLATELETS & AUT DIFF (44827)Indication: DEFICIENCY, B-COMPLEX NEC On: 1-Hdc-523614:43 Request VITAMIN B-12 (CYANOCOBALAMIN) (28265)Indication: DEFICIENCY, B-COMPLEX NEC On: 0-Rby-796902:43 Request Vitamin D Hydroxy (23031)Indication: Vitamin D deficiency, unspecified On: 5-Ukb-457992:43 Request IRON (89715)Indication: Anemia On: 5-Eoc-210192:42 Request Vitamin D Hydroxy (26838)Indication: Vitamin D deficiency, unspecified On: 5-Syh-473408:36 Request VITAMIN B-12 (CYANOCOBALAMIN) (23169)Indication: DEFICIENCY, B-COMPLEX NEC On: :35 Request CBC WITH MANUAL DIFF (68542)Indication: DEFICIENCY, B-COMPLEX NEC On: :35 Request METABOLIC PANEL, COMPREHENSIVE (33615)Indication: Essential hypertension On: :35 Request T3, FREE (TRIDOTHYRONINE) (14421)Indication: Acquired hypothyroidism On: :35 Request T4, FREE (52527)Indication: Acquired hypothyroidism On: :35 Request TSH (84511)Indication: Acquired hypothyroidism On: :34 Request TSH (90043)Indication: Acquired hypothyroidism On: 78-Bfo-199169:23 Request Comments: recheck in 6 weeks Metabolic Panel, Basic (63312)Indication: Essential hypertension On: 10-Yrc-272340:16 Request TSH (55223)Indication: Acquired hypothyroidism On: 51-Dst-593994:22 Request C-REACTIVE PROTEIN (28893)Indication: right lower quadrant pain On: :51 Request SED RATE ERYTHROCYTE (56210)Indication: right lower quadrant pain On: :51 Request Magnesium (20813)Indication: Leg cramps On: :43 Request CBC WITH MANUAL DIFF (87804)Indication: Edema leg On: :42 Request LIPID PANEL (25405)Indication: Hypercholesterolemia On: :41 Request METABOLIC PANEL, COMPREHENSIVE (56398)Indication: Essential hypertension On: :41 Request VITAMIN B-12 (CYANOCOBALAMIN) (36789)Indication: Other vitamin B12 deficiency anemia On: :41 Request Vitamin D Hydroxy (09604)Indication: Vitamin D deficiency, unspecified On: :41 Request Metabolic Panel, Basic (44270)Indication: Acute renal failure, unspecified acute renal failure type On: :31 Request TSH (07588)Indication: Acquired hypothyroidism On: :30 Request LIPID PANEL (61387)Indication: Hypercholesterolemia On: :39 Request Vitamin D Hydroxy (95714)Indication: Vitamin D deficiency, unspecified On: :39 Request VITAMIN B-12 (CYANOCOBALAMIN) (58126)Indication: Other vitamin B12 deficiency anemia On: :39 Request CBC WITH MANUAL DIFF (54953)Indication: Other vitamin B12 deficiency anemia On: :39 Request METABOLIC PANEL, COMPREHENSIVE (97022)Indication: Essential hypertension On: :39 Request Vitamin D Hydroxy (37795)Indication: Vitamin D deficiency, unspecified On: :37 Request LIPID PANEL (26229)Indication: Hypercholesterolemia On: :37 Request TSH (07092)Indication: Acquired hypothyroidism On: :37 Request CBC WITH MANUAL DIFF (89465)Indication: Essential hypertension On: :39 Request METABOLIC PANEL, COMPREHENSIVE (77101)Indication: Essential hypertension On: :39 Request VITAMIN B-12 (CYANOCOBALAMIN) (32296)Indication: b12 deficiency On: :39 Request LIPID PANEL (56484)Indication: Hypercholesterolemia On: :39 Request Vitamin D Hydroxy (81998)Indication: Vitamin D deficiency, unspecified On: :32 Request VITAMIN B-12 (CYANOCOBALAMIN) (16670)Indication: b12 deficiency On: :32 Request Vitamin D Hydroxy (05338)Indication: Vitamin D deficiency, unspecified On: :32 Request METABOLIC PANEL, COMPREHENSIVE (67613)Indication: Essential hypertension On: :32 Request LIPID PANEL (89329)Indication: Hypercholesterolemia On: :32 Request TSH (17824)Indication: Acquired hypothyroidism On: :32 Request CBC WITH MANUAL DIFF (10671)Indication: Essential hypertension On: :30 Request METABOLIC PANEL, COMPREHENSIVE (20136)Indication: Essential hypertension On: :29 Request VITAMIN B-12 (CYANOCOBALAMIN) (95689)Indication: DEFICIENCY, B-COMPLEX NEC On: :29 Request Vitamin D Hydroxy (90129)Indication: Vitamin D deficiency, unspecified On: :29 Request TSH (94981)Indication: Acquired hypothyroidism On: :29 Request LIPID PANEL (59587)Indication: Hypercholesterolemia On: :29 Request Vitamin B-12 (cyanocobalamin) (05248)Indication: b12 deficiency On: :01 Request CALCIFIDIOL (73689) VIT D 25Indication: Vitamin D deficiency, unspecified On: 46-Vui-020580:00 Request TSH (19658)Indication: Acquired hypothyroidism On: 47-Wky-346077:34 Request LIPID PANEL (21906)Indication: Hypercholesterolemia On: 31-Xsb-300981:34 Request Metabolic Panel, Basic (25608)Indication: Essential hypertension On: 19-Dqr-799574:26 Request VITAMIN B-12 (CYANOCOBALAMIN) (77961)Indication: DEFICIENCY, B-COMPLEX NEC On: 74-Dhl-102144:19 Request Vitamin D Hydroxy (17429)Indication: Vitamin D deficiency, unspecified On: 22-Onj-836067:19 Request VITAMIN D, 1, 25-DIHYDROXY (57650)Indication: Vitamin D deficiency, unspecified On: 2-Bqi-481260:19 Request Comments: Vit D [place] Vitamin B-12 (cyanocobalamin) (95714)Indication: b12 deficiency On: 1-Jak-505427:17 Request CBC WITH MANUAL DIFF (37560)Indication: b12 deficiency On: 62-Pwh-474440:17 Request VITAMIN B-12 (CYANOCOBALAMIN) (89469)Indication: b12 deficiency On: 52-Gzh-469398:14 Request VITAMIN B-12 (CYANOCOBALAMIN) (77370)Indication: Vitiligo On: 91-Oin-541381:37 Request LIPID PANEL (03278)Indication: Hypercholesterolemia On: 33-Bfo-398418:33 Request TSH (89039)Indication: Acquired hypothyroidism On: 37-Hmq-687901:32 Request Vitamin D Hydroxy (86048)Indication: Vitamin D deficiency, unspecified On: 00-Ffr-947668:31 Request METABOLIC PANEL, COMPREHENSIVE (96889)Indication: Essential hypertension On: 17-Gdz-988222:42 Request Vitamin D Hydroxy (43360)Indication: Vitamin D deficiency, unspecified On: 32-Egg-141707:42 Request CAROL (ANTINUCLEAR ANTIBODY) (43838)Indication: Pain in unspecified joint On: 9-Gkq-429845:27 Request C-REACTIVE PROTEIN (68646)Indication: Pain in unspecified joint On: :27 Request CBC WITH MANUAL DIFF (54491)Indication: Pain in unspecified joint On: :27 Request CCP ANTIBODY (44201)Indication: Pain in unspecified joint On: 2-Fjm-448429:27 Request METABOLIC PANEL, COMPREHENSIVE (71306)Indication: Pain in unspecified joint On: :27 Request RHEUMATOID FACTOR-QUANT (09140)Indication: Pain in unspecified joint On: : Request SED RATE ERYTHROCYTE (18774)Indication: Pain in unspecified joint On: : Request TSH (04843)Indication: Pain in unspecified joint On: : Request SED RATE ERYTHROCYTE (31113)Indication: flank pain On: :35 Request C-REACTIVE PROTEIN (75810)Indication: flank pain On: :35 Request METABOLIC PANEL, COMPREHENSIVE (09105)Indication: flank pain On: :35 Request CBC WITH MANUAL DIFF (66316)Indication: flank pain On: : Request URINE CESAR CULTURE (TUNDE COL COUNT) (44670)Indication: flank pain On: :35 Request Thin prep Pap (46454)Indication: Well woman exam with routine gynecological exam On: :09 Request CBC WITH MANUAL DIFF (98676)Indication: Essential hypertension On: 32-Waz-185560:02 Request METABOLIC PANEL, COMPREHENSIVE (69253)Indication: Essential hypertension On: 77-Soz-018272:02 Request LIPID PANEL (69784)Indication: Hypercholesterolemia On: 09-Foe-791783:02 Request METABOLIC PANEL, COMPREHENSIVE (82860)Indication: Essential hypertension On: 26-Xiq-590063:18 Request TSH (51255)Indication: Acquired hypothyroidism On: 81-Eox-338766:18 Request SED RATE ERYTHROCYTE (34026)Indication: Abdominal pain, acute, left upper quadrant On: 61-Sxk-849228:09 Request C-REACTIVE PROTEIN (16676)Indication: Abdominal pain, acute, left upper quadrant On: 31-Odl-082860:09 Request CBC WITH MANUAL DIFF (17449)Indication: edema On: 20-Vir-714255:09 Request METABOLIC PANEL, COMPREHENSIVE (59088)Indication: edema On: 54-Huz-132001:09 Request TSH (95874)Indication: Acquired hypothyroidism On: 70-Brb-903339:03 Request CBC WITH MANUAL DIFF (61251)Indication: Abdominal pain, acute, left upper quadrant On: 78-Bpf-903634:22 Request Lipase (36716)Indication: Abdominal pain, acute, left upper quadrant On: 23-Pmu-581105:22 Request Amylase (92753)Indication: Abdominal pain, acute, left upper quadrant On: 82-Imy-606125:21 Request Thin prep Pap (53749)Indication: Well woman exam with routine gynecological exam On: 05-Dcu-823827:43 Request HEPATIC FUNCTION PANEL (39438)Indication: Hypercholesterolemia On: :52 Request LIPID PANEL (02645)Indication: Hypercholesterolemia On: :52 Request CBC, PLATELETS & AUTO DIFF (39649)Indication: Leukopenia On: 69-Vyn-374763:34 Request Planned Encounters Medical; [facility] 6 Month Fu - On: 03-Jul-2018 13:00 [facility] Fast DO, Kristine A Fast DO, Kristine A Planned Procedures DEXA SCAN AXIAL SKELETON (24669)By: On: 02-Jan-2018 Intent Fast DO, Kristine A Fast DO, Kristine A Comments: mar - RenalBy: Fast DO, On: 02-Jan-2018 Intent Kristine A Fast DO, Kristine A Flu Vaccine (Quadrivalent) 27541Nh: On: 02-Jan-2018 Intent Fast DO, Kristine A Fast DO, Kristine A Comments: Lot #[id number]-0/30/2019Site-L dltd, IMDose prefilled syringegiven by: Melly reviewed and ABN signed ELECTROCARDIOGRAM, COMPLETE (ECG) On: 28-Aug-2017 Intent (41533)By: Fast DO, Kristine A Fast Comments: ekg showed normal sinus rhythym, normal axis, no acute st/t wave changes DO, Kristine A SCREENING DIGITAL TOMOSYNTHESIS OF On: 28-Aug-2017 Intent BREAST ([id number])By: Fast DO, Kristine A Fast DO, Kristine A B 12 Injection, 1000 mcg (J3420)By: On: 15-Mar-2017 Intent Visit, Nurse Comments: [id number]/ANOOP Almodovar B 12 Injection, 1000 mcg (J3420)By: On: 22-Feb-2017 Intent Fast DO, Kristine A Fast DO, Kristine A Comments: lot: [id number]: 05/01site/route: L del/IMamt: 1mLVIS signed when applicableCheRAYMUNDO carson Flu Vaccine (Quadrivalent) [id number]: On: 17-Jan-2017 Intent Fast DO, Kristine A [...] (J3420)By: On: 12-Dec-2016 Intent Visit, Nurse Comments: 30150/2018R arm, IM1ml, 1000mcgML, WELDER ASSEMBLER B 12 Injection, 1000 mcg (J3420)By: [...] Kristine A Fast DO, Kristine A Comments: B12lot:[id number]:ite:lt deltroute:Imdose:1mlD.Solitario MA B 12 Injection, 1000 mcg (J3420)By: On: 19-Jul-2016 Intent Fast DO, Kristine A Fast DO, Kristine A Comments: lot: [id number]: ite/route: L del/IMamt: 1mlVIS signed when applicableChelsea, PRE SALES TECHNICAL CONSULTANT B 12 Injection, 1000 mcg (J3420)By: [...] armGiven By:TAVON signed DEXA SCAN AXIAL SKELETON ([id number])By: On: 04-Apr-2016 Intent Fast DO, Kristine A Fast DO, Kristine A MRI LUMBAR SPINE W/O CONTRAST On: 04-Apr-2016 Intent ([id number])By: Fast DO, Kristine A Fast DO, Rkistine A B 12 Injection, 1000 mcg (J3420)By: [...] A ELECTROCARDIOGRAM, COMPLETE (ECG) On: 11-Dec-2015 Intent ([id number])By: Fast DO, Kristine A Fast Comments: ekg [...] mcg (J3420)By: On: 04-Sep-2015 Intent Fast DO, Krisitne A Fast DO, Kristine A Comments: Lot:[id number]:07/28Dose:1mlRoute:IMSite:l [...] MAMMOGRAM, SCREENING, BOTH BREAST On: 21-Apr-2015 Intent ([id number])By: Fast DO, Kristine A Fast DO, Kristine A B 12 Injection, 1000 mcg (J3420)By: On: 21-Apr-2015 Intent Fast DO, Kristine A Fast DO, Kristine A Comments: Lot:[id number]:11/27Dose:1mlRoute:IMSite:r arm Given By:JKMVIS signed B 12 Injection, 1000 mcg (J3420)By: On: 16-Mar-2015 Intent Fast DO, Kristine A Fast DO, Kristine A Comments: lot: [id number]: 06/27site/route: L del/IMamt: 1mLVIS signed when applicableKylee PRE SALES TECHNICAL CONSULTANT B 12 Injection, 1000 mcg (J3420)By: On: 09-Feb-2015 Intent Fast DO, Kristine A Fast DO, Kristine A Comments: B12lot:[id number]:06/27site:lt deltoidroute:IMdose:1mlDEMICK, SMA B 12 Injection, 1000 mcg (J3420)By: On: 15-Jan-2015 Intent ZahraHunter erazo Comments: B 12Lot:[id number]:17site:lt deltoidroute:IMdose:.5mlDEMICK, SMA B 12 Injection, 1000 mcg (J3420)By: On: 10-Dec-2014 Intent Fast DO, Kristine A Fast DO, Kristine A Comments: lot [id number] - see ANOOP Mcallister CT - Abdomen & Pelvis (IV Contrast On: 16-Sep-2014 Intent Needed)By: Fast DO, Kristine A Fast DO, Kristine A B 12 Injection, 1000 mcg (J3420)By: On: 16-Sep-2014 Intent Fast DO, Kristine A Fast DO, Kristine A Comments: Lot:[id number]:11.16Route:IMSite:R deltoidDose: 1 mLgiven by: Carlita Ariza PRE SALES TECHNICAL CONSULTANT B 12 Injection, 1000 mcg (J3420)By: On: 06-Aug-2014 Intent Fast DO, Kristine A Fast DO, Kristine A Comments: lot:[id number]:05/26route:IMdose:1MLSite:Right Deltoidgiven by: ANS B 12 Injection, 1000 mcg (J3420)By: On: 19-Jun-2014 Intent Visit, Nurse Comments: 4090a3.2016given, see ANOOP Altamirano B 12 Injection, 1000 mcg (J3420)By: On: 22-Apr-2014 Intent SlaSilvia buchanan LPN Comments: lot: [id number]: 4.16Dose: 1,000 mcgSite: l dltdLocation; IMby: Prevnar 13 ([id number])By: Fast DO, On: 24-Mar-2014 Intent Kristine A Fast DO, Kristine A Comments: lot: [id number]: 3/16site/route: L del/IMamt: 0.5mLVIS signed when applicableChels, [facility] Ultrasound - PelvisBy: Fast DO, On: 24-Mar-2014 Intent Kristine A Fast DO, Kristine A B 12 Injection, 1000 mcg (J3420)By: On: 24-Mar-2014 Intent Fast DO, Kristine A Fast DO, Kristine A Comments: lot: [id number]: 4/16site/route: R del/IMamt:1mlVIS signed when applicableCheSaint [facility] B 12 Injection, 1000 mcg (J3420)By: On: 24-Feb-2014 Intent Silvia Burton LPN Comments: lot: [id number]: 4.16Dose: 1,000 mcgSite: l dltdLocation; IMby: B 12 Injection, 1000 mcg (J3420)By: On: 22-Jan-2014 Intent Fast DO, Kristine A Fast DO, Kristine A Comments: lot [id number] 08/2015location L armroute imgiven by - msmith VIS and/or ABN signed B 12 Injection, 1000 mcg (J3420)By: On: 30-Dec-2013 Intent Fast DO, Kristine A Fast DO, Kristine A Comments: lot [id number] 05/2015location L armroute imgiven by - msmithVIS [...] Fast Comments: today DO, Kristine A EKG ([id number])By: Fast DO, Kristine A On: 05-Nov-2013 Intent Fast DO, Kristine A Comments: ekg showed normal sinus rhythym, normal axis, no acute st/t wave changes B 12 Injection, 1000 mcg (J3420)By: On: 05-Nov-2013 Intent Fast DO, Kristine A Fast DO, Kristine A Comments: Lot:[id number]:11/24Dose:1mlRoute:IMSite:enoch armGiven By:TAVON signed PHYSICAL THERAPY EVALUATION On: 18-Oct-2013 Intent ([id number])By: Aquiles Potts CNP SPECIMEN HANDLING/TRANSPORT On: 18-Oct-2013 Intent ([id number])By: Aquiles Potts CNP B 12 Injection, 1000 mcg (J3420)By: On: 11-Oct-2013 Intent Aquiles Potts CNP Comments: Lot:[id number]:11/2013Dose:1mlRoute:IMSite:enoch Pierre By:TAVON signed B 12 Injection, 1000 mcg (J3420)By: On: 18-Sep-2013 Intent Fast DO, Kristine A Fast DO, Kristine A B 12 Injection, 1000 mcg (J3420)By: On: 07-Aug-2013 Intent Fast DO, Kristine A Fast DO, Kristine A Comments: lot: [id number]: ite/route: Enoch carey/IMamt: 1mLVIS signed when applicableChelsea, PRE SALES TECHNICAL CONSULTANT MAMMOGRAM, SCREENING, BOTH BREASTS On: 24-Jun-2013 Intent ([id number])By: Fast DO, Kristine A Fast DO, Kristine A B 12 Injection, 1000 mcg (J3420)By: On: 24-Jun-2013 Intent Fast DO, Kristine A Fast DO, Kristine A Comments: Lot:[id number]:04/28Dose:1mlRoute:IMSite:enoch armGiven By:TAVON signed B 12 Injection, 1000 mcg (J3420)By: On: 15-May-2013 Intent Visit, Nurse Comments: Lot:[id number]:01/25Dose:1mlRoute:IMSite:enoch armGiven By:TAVON signed B 12 Injection, 1000 mcg (J3420)By: On: 22-Apr-2013 Intent Fast DO, Kristine A Fast DO, Kristine A Comments: lot: [id number]: 01/25site/route: L deltoid/IMamt: 1mLVIS signed when applicableChelsea, PRE SALES TECHNICAL CONSULTANT B 12 Injection, 1000 mcg (J3420)By: On: 21-Mar-2013 Intent Fast DO, Kristine A Fast DO, Kristine A Comments: see flowsheetMegan PNEUM VAC ADLT/IMUMNOSPR, SBC/INTRM On: 18-Feb-2013 Intent ([id number])By: Fast DO Kristine A Fast Comments: Lot: [id number]: 89Qyj01Apo: 0.5mlRoute: IMSite: L deltoidGiven by: ANOOP Moralez DO, Kristine A ADMINISTRATION OF PNEUMOCOCCAL On: 18-Feb-2013 Intent VACCINE (G0009)By: Antwan DO Kristine A Fast DO, Kristine A Eprescribed prescriptions On: 18-Feb-2013 Intent ([id number])By: Deanna Michelle B 12 Injection, 1000 mcg (J3420)By: On: 02-Jan-2013 Intent Deanna Michelle Comments: lot: [id number]: 10/25site/route: L deltoid/IMamt: 1mLVIS signed when applicableChelsea, PRE SALES TECHNICAL CONSULTANT B 12 Injection, 1000 mcg (J3420)By: [...] 08/24site/route: R deltoid/IMamt: 1mLVIS signed when applicableChelsea, PRE SALES TECHNICAL CONSULTANT B 12 Injection, 1000 mcg (J3420)By: On: 28-Aug-2012 Intent Antwan MIX Kristine A Fast DO, Kristine A Comments: Lot #:[id number] date:mount given:1mlRoute: IMSite given: left deltoidGiven by: AYAD Dailey B 12 Injection, 1000 mcg (J3420)By: On: 23-Jul-2012 Intent Fast DO, Kristine A Fast DO, Kristine A Comments: Lot: [id number]: 02/23Amt: 1000mcg/1mlRoute: IMSite: L Deltoid per pt [...] A Fast DO, Kristine A Comments: lot: [id number]:02/23site/route: L deltoid/IMamt: 1ccVIS signed when applicableCheRAYMUNDO carson B 12 Injection, 1000 mcg (J3420)By: On: 09-May-2012 Intent Kylee Castellon Comments: Lot:[id number]:02/2014Dose:1mlRoute:IMSite:L armGiven By:Jameson signed VENOUS DOPPLER LOWER EXTREMITY On: 18-Apr-2012 Intent ([id number])By: Fast DO, Kristine A Fast DO, Kristine A Radiology - Hip - RightBy: Fast DO, On: 06-Apr-2012 Intent Kristine A Fast DO, Kristine A Comments: call results B 12 Injection, 1000 mcg (J3420)By: On: 06-Apr-2012 Intent Lisandra Chilel Comments: Lot #[id number]-72/14Site-left deltoidDose-1 mlgiven by: Omkar Rivera LPN Eprescribed prescriptions On: 06-Apr-2012 Intent ([id number])By: Lisandra Chilel Inhaler Demo ([id number])By: Fast DO, On: 06-Feb-2012 Intent Kristine A Fast DO, Kristine A B 12 Injection, 1000 mcg (J3420)By: On: 06-Feb-2012 Intent Kylee Castellon Comments: Lot:[id number]:Dose:1mlRoute:IMSite:L armGiven By:TAVON signed MAMMOGRAM, SCREENING, BOTH BREASTS On: 06-Feb-2012 Intent ([id number])By: Fast DO, Kristine A Fast DO, Kristine [...] mlRoute: IMSite given: left deltoidGiven by: AMI Alcarazfireman helper - Cervical SpineBy: Fast On: 13-Apr-2011 Intent DO, Kristine A Fast DO, Kristine A TD Injection , IM ([id number])By: On: 13-Apr-2011 Intent Lisandra Chilel Comments: received in 2005 B 12 Injection, 1000 mcg (J3420)By: On: 29-Mar-2011 Intent Kateryna Lunsford MD Comments: Lot #[id number]-8.13Site-Left arm, IMDose 0.5mlgiven by:Татьяна B 12 Injection, 1000 mcg (J3420)By: On: 08-Feb-2011 Intent Татьяна Vera LPN Comments: Lot [id number]#Exp-7.13Site-R arm, IMDose 1mlgiven by:Татьяна DXA, BONE DENSITY, AXIAL SKELETON On: 24-Jan-2011 Intent ([id number])By: Lisandra Chilel Comments: post menopausal wihtout estrogen FLU VAC, SPLIT, >3 YEARS, INTRAMUSC On: 24-Jan-2011 Intent ([id number])By: Lisandra Chilel Comments: received at [facility] B 12 Injection, 1000 mcg (J3420)By: On: 21-Dec-2010 Intent Tripp DAVALOS Licha INJECTION, VITAMIN B-12 On: 19-Nov-2010 Intent CYANOCOBALAMIN, UP TO 1000 MCG Comments: Lot:[id number]:04/25Amt:1mlRoute:IMSite:left deltGiven By: ANOOP Sotelo (Special Coverage Instructions Apply. See CIM: 45-4 and MCM: 2049) (J3420)By: Vi Ramirez EKG ([id number])By: Lisandra Chilel On: 05-Nov-2010 Intent Comments: ekg showed normal sinus rhythym, normal axis, no acute st/t wave changes MAMMOGRAM, SCREENING, BOTH BREASTS On: 05-Nov-2010 Intent ([id number])By: Fast DO, Kristine A Fast DO, Kristine [...] 03-Jun-2010 Intent Yasmeen Rivera LPN Comments: Lot #[id number]/12Site-left deltoidDose-1 mlgiven by:[facility] IMMUNIZ ADMNIN, 1 VAC, SNGL/COMBO On: 19-Apr-2010 Intent ([id number])By: Yasmeen Rivera LPN Comments: Lot #[id number]-7/28/02Site-left deltoidDose- 0.85mlgiven by:[facility] [place] ([id number])By: Miguel On: 19-Apr-2010 Intent Yasmeen DAVALOS B 12 Injection, 1000 mcg (J3420)By: On: 19-Apr-2010 Intent Hluszti WELDER ASSEMBLER, Yasmeen B 12 Injection, 1000 mcg (J3420)By: On: 22-Mar-2010 Intent Long WELDER ASSEMBLER, Татьяна L Comments: Lot #[id number]-10/22Site-L arm, [...] Rivera LPN Comments: Lot #[id number]-07/22Site-left deltoidDose-[address]:[facility] FLU VAC, SPLIT, >3 YEARS, INTRAMUSC On: 30-Dec-2009 Intent ([id number])By: Lisandra Chilel Comments: Lot #[id number]-3/11Site-left deltoidgiven by:[facility] B 12 Injection, 1000 mcg (J3420)By: On: 30-Dec-2009 Intent Lisandra Chilel Comments: Lot #[id number]-07/22Site-right deltoidDose-[address]given [address]:[facility] Renal Duplex ScanBy: Fast DO, Kristine On: 30-Dec-2009 Intent A Fast DO, Kristine A IMMUNIZ ADMNIN, 1 VAC, SNGL/COMBO On: 30-Dec-2009 Intent (03775)By: Lisandra Chilel B 12 Injection, 1000 mcg (J3420)By: On: 14-Dec-2009 Intent Shayna Harris Comments: Lot:[id number]:07/22Dose:1000mcg/1mlRoute:IMSite:right deltoid Given by: AYAD Gil B 12 Injection, 1000 mcg (J3420)By: On: 26-Nov-2009 Intent Phyllis Escobar RN Comments: documented in flowsheet B 12 Injection, 1000 mcg (J3420)By: On: 19-Oct-2009 Intent Yasmeen Rivera LPN Comments: Lot #[id number]-2/Site-left deltoidDose-[address]:[facility] B 12 Injection, 1000 mcg (J3420)By: On: 13-Oct-2009 Intent Shayna Harris Comments: Lot:[id number]:2/12Dose:1000mcg/1mlRoute:imSite:right sideGiven by: AYAD Gil B 12 Injection, 1000 mcg (J3420)By: On: 06-Oct-2009 Intent Fast DO, Kristine A Fast DO, Kristine A Comments: Lot #[id number]-2Site-right deltoidDose- [address]:[facility] MRI - BrainBy: Fast DO, Kristine [...] do this week and call ressults EKG ([id number])By: Fast DO, Kristine A On: 17-Dec-2008 Intent Fast DO, Kristine A Comments: ekg showed normal sinus rhythym, normal axis, no acute st/t wave changes MAMMOGRAM, SCREENING, BOTH BREASTS On: 17-Dec-2008 Intent ([id number])By: Fast DO, Kristine A Fast DO, Kristine A MRI - Lumbar SpineBy: Fast DO, On: 17-Dec-2008 Intent Kristine A Fast DO, Kristine A FLU VAC, SPLIT, >3 YEARS, INTRAMUSC On: 17-Dec-2008 Intent ([id number])By: Lisandra Chilel Comments: Lot #:[id number] date:mount given:0.5mlRoute: IMSite given:left deltoidGiven by: AYAD Dailey ADMINISTRATION OF INFLUENZA VIRUS On: 17-Dec-2008 Intent VACCINE ([id number])By: Lisandra Chilel CT - Abdomen & Pelvis Stone On: 18-Aug-2008 Intent ProtocolBy: Fast DO, Kristine A Fast Comments: stat -call results DO, Kristine A Radiology - Chest- PA and LatBy: On: 24-Mar-2008 Intent Fast DO, Kristine A Fast DO, Kristine A Spirometry ([id number])By: Antwan DO, On: 24-Mar-2008 Intent Kristine A Fast DO, Kristine A Comments: good effort and curve minimal decrease small airways ADMINISTRATION OF PNEUMOCOCCAL On: 17-Dec-2007 Intent VACCINE (G0009)By: Fast DO, Kristine A Fast DO, Kristine A PNEUM VAC ADLT/IMUMNOSPR, SBC/INTRM On: 18-Dec-2007 Intent ([id number])By: Fast DO, Kristine A Fast Comments: Lot #:[id number] date:08/19Amount given:0.5mlRoute: IMSite given:left deltGiven by: AYAD Dailey DO, Kristine A MAMMOGRAM, SCREENING, BOTH BREASTS On: 17-Dec-2007 Intent ([id number])By: Fast DO, Kristine A Fast Comments: end of feb DO, Kristine A DXA, BONE DENSITY, AXIAL SKELETON On: 31-Oct-2007 Intent ([id number])By: Fast DO, Kristine A Fast DO, Kristine A Echo CompleteBy: Fast DO, Kristine A On: 25-Jul-2007 Intent Fast DO, Kristine A Bio Z ([id number])By: Fast DO, Kristine A On: 25-Jul-2007 Intent Fast DO, Kristine A Comments: good cardiac output and no excesive gfluid EKG ([id number])By: Fast DO, Kristine A On: 25-Jul-2007 Intent Fast DO, Kristine A Comments: ekg showed normal sinus rhythym, normal axis, no acute st/t wave changes CT - Abdomen & Pelvis (IV Contrast On: 11-Jul-2007 Intent Needed)By: Adrianna Morgan DO MAMMOGRAM, SCREENING, BOTH BREASTS On: 27-Mar-2006 Intent ([id number])By: Adrianna Morgan DO Planned Medications Vitamin B-12 [...] MCG/ML Injection Solution Ordered: 22-Apr-2014 Pending Slarb WELDER ASSEMBLER, Silvia Vitamin B-12 1000 MCG/ML Injection Solution Ordered: 24-Mar-2014 Pending Fast DO, Kristine A Fast DO, Kristine A Vitamin B-12 1000 MCG/ML Injection Solution Ordered: 24-Feb-2014 Pending Slarb WELDER ASSEMBLER, Silvia Vitamin B-12 1000 MCG/ML Injection [...] MCG/ML Injection Solution Ordered: 05-Nov-2015 Pending Emick, Brooke Vitamin B-12 1000 MCG/ML Injection Solution Ordered: [...] online - Detail Indication: [facility] : Patient Instructions Indication: [facility] Wellness Physical Hip pain, right : How [...] / tylenol and - more mobile on Baiheic days- cleo notices a difference Encounter Diagnosis: [...] and next month going to do right- Mcihael- went well- she saw Dr Mckeon in the [facility] for pain management - had inje ction [...] emotional problems . Note for Physical exam: [facility] Wellness Physical- her hip bursitis better can [...] do a lot of walking Encounter Diagnosis: [facility] Wellness Physical, Nonsmoker, BMI 37.0-37.9, [...] procedure: ( End: 10-Dec-2014 21:34 / at [facility] with dr Mahesh stokes) . There have been no problems with general anesthesia or blood/blood products. Prosthetics include: dentures (partial). Note for Preoperative evaluation: [facility]- [...] scleroderma, leukopenia). Note for Follow up for service tech/welder tim medical issues: Pt had colonoscopy done [...] scleroderma, leukopenia). Note for Follow up for service tech/welder tim medical issues: No routine labs done [...] scleroderma, leukopenia). Note for Follow up for service tech/welder tim medical issues: still having right lateral [...] scleroderma, leukopenia). Note for Follow up for service tech/welder tim medical issues: sdhe is losing weight [...] scleroderma, leukopenia). Note for Follow up for service tech/welder tim medical issues: feels well other than [...] scleroderma, leukopenia). Note for Follow up for service tech/welder tim medical issues: No routine labs done [...] the rare occ that she takes at [facility] but doesnt know accuracy, [ADDITIONAL REASON] Follow [...]
--- OUTSIDE RECORDS SUMMARY | 2018-06-02 | XMS RPT_ITS ---
:1940 Author Organization OHIP Care Team Providers Name Role Phone FRITZ MCKEON Admitting Unavailable FRITZ MCKEON Attending Unavailable FRITZ MCKEON Admitting Unavailable FRITZ MCKEON Attending Unavailable FRITZ MCKEON Admitting Unavailable FRITZ MCKEON Attending Unavailable DEYANIRA STOKES Attending Unavailable DEYANIRA STOKES Referring Unavailable MARTHA CISNEROS ([facility]) Attending Unavailable BestJean Attending Unavailable [place] Referring Unavailable Fast, Kristine Primary Care Unavailable Fast, Kristine Attending Unavailable Fast, Kristine Primary Care Unavailable Fast, Kristine Attending Unavailable Fast, Kristine Referring Unavailable Fast, Kristine Primary Care Unavailable Fast, Kristine Attending Unavailable Fast, Kristine Referring Unavailable Fast, Kristine Primary Care Unavailable PROBLEMS PROBLEMS DATE TYPE CONDITION / CODE ATTENDING STATUS SOURCE 10/30/2017 Active Low back pain / MCKEONFRITZ Active [facility] M54.5(ICD-10) Other [place] Repository 10/30/2017 Active Other chronic pain / MCKEON, FRITZ Walter Active [facility] G89.29(ICD-10) Other [place] Repository 08/01/2017 Active Other intervertebral FRITZ MCKEON Active [facility] disc degeneration, Other [place] lumbar region / Repository M51.36(ICD-10) 07/11/2017 Active Unknown / DEYANIRA STOKES Active [facility] UNK(Unknown) A Main [place] Repository 07/11/2017 Active Pain, unspecified / NA Active [facility] R52(ICD-10) Other [place] Repository PROCEDURES PROCEDURES No Procedure Records FoundRESULTS RESULTS ESOPHAGUS ONLY Observed: 03/28/2018 Status: F Source: [place] 8:[address] [facility] REPOSITORY [facility] Imaging Services [address] [place] [address] Esophagus Only MR#: [id number] Acct: [id number] Name: ALYCE URRUTIA Rep #: [id number] : 1940 F 77 From: Dashawn Rowe MD PCP: Kristine Moncada DO Status: REG CLI Study: Esophagus Only Date of Exam: 03/28/18 Exam# [id number] Ordering Dr: Jean Jewell MD STUDY: X-RAY - ESOPHAGUS (BARIUM SWALLOW) WITH FLUOROSCOPY REASON FOR EXAM: Female, 77 years old. Dysphagia. TECHNIQUE: 16 view(s) of the esophagus were obtained following swallowing of barium. FLUOROSCOPY TIME (if supplied): (0:33) minutes/seconds COMPARISON: None. FINDINGS: There is no demonstrated esophageal foreign body. There is no demonstrated stricture or mucosal abnormality. There is a small hiatal hernia of the fundus of the stomach. The patient ingested a 12 mm tablet at bedtime without any difficulty. There is atherosclerotic tortuosity of the aortic arch and descending thoracic aorta. Normal visualized pulmonary parenchyma. Normal visualized osseous structures of the thorax. RAD/Esophagus Only IMPRESSION: Small hiatal hernia. Electronically Signed: Dashawn Rowe MD at 15:38 EST Tel [phone], Service support , CC: Jean Jewell MD; Kristine Moncada DO Professor Of Vegetable Science: Signed KIDNEY AND BLADDER Observed: 01/11/2018 Status: F Source: [place] 2:03 PM [facility] REPOSITORY [facility] Imaging Services [address] [place] [address] Kidney and Bladder MR#: [id number] Acct: [id number] Name: ALYCE URRUTIA Rep #: [id number] : 1940 F 77 From: Doug Sinclair DO PCP: Kristine Moncada DO Status: REG CLI Study: Kidney and Bladder Date of Exam: 01/11/18 Exam# [id number] Ordering Dr: Kristine Moncada DO ADDENDUM by Doug Sinclair DO on 01/22/18 at 1954 ADDENDUM ADDENDUM: Comparison is made with October 07, 2013 renal ultrasound. The right renal cystic lesions appear stable. New left renal cyst. Findings in the urinary bladder are new since the previous study. Electronically Signed: Doug Sinclair DO at 19:55 EST Tel [phone], Service support , 01/22/181954 Date cc: Kristine Moncada DO * Signed ADDENDUM by Doug Sinclair DO on 01/22/18 at 1954 US/Kidney and Bladder 01/22/182001 Date cc: Kristine Moncada DO * Signed STUDY: RENAL ULTRASOUND - [...] Doug Sinclair DO at 23:00 EDT Tel [phone], Service support , CC: Kristine Moncada DO Professor Of Vegetable Science: Signed PT ED Observed: 11/23/2017 Status: COMPLETED Source: [place] 9:02 AM [facility] OTHER CAMPUS REPOSITORY HNO ID: [id number] Author: Patito Montanez) AMI Ayers Service: Nursing Author Type: Registered Nurse Type: Patient Education Filed: 11/23/2017 9:03 AM Note Text: POST OP LEARNING RESPONSE INSTRUCTION PROVIDED TO: Patient METHOD OF INSTRUCTION: Verbal instruction PATIENT / FAMILY RESPONSE: Information received as demonstrated by interest and questions FOLLOW-UP PLAN: Patient instructed to call with any further issues SUPPLEMENTAL MATERIAL: Post op discharge instructions REFERRAL (RECOMMENDATION): None Electronically Signed By: Patito Ayers RN In Department: [facility] NURSING PROG Observed: 11/23/2017 Status: COMPLETED Source: [place] 8:41 AM [facility] OTHER [place] REPOSITORY HNO ID: [id number] Author: Patito (Rn) AMI Ayers Service: Nursing Author Type: Registered Nurse Type: Nursing Progress Note Filed: 11/23/2017 9:03 AM Note Text: 0833 Received from or No c/o pain Light snack to pt 0850 Iv removed Discharge instructions reviewed with pt Up to chair Steady when up Dressing 0900 Discharged by wheelchair XR FLUOROSCOPY Observed: 11/23/2017 Status: F Source: [place] 8:33 AM [facility] REPOSITORY * * *Final Report* * * DATE OF EXAM: Nov 23 2017 8:33AM MDR [id number] - XR FLUOROSCOPY / PROCEDURE REASON: RIGHT L2-L3, L3-L4, L4-L5, L5-S1 FACET NERVE RFA FOR PAIN * * * * Physician Interpretation * * * * Lumbar spine History: lumbo-sacral neuritis Findings: 6 fluoroscopic views submitted. Needle tip(s) is or are at the expected level of the following neural foramina: Right L1- 2, L2-3, L3-4, L4-5 and L5-S1. Fluoroscopic Radiation Summary: Plane A, Air Kerma: 21.5 mGy Dose Area Product (DAP): 3209.1 mGy*cmS2 Fluoro time: 0:41 min:sec IMPRESSION FINDINGS CONSISTENT WITH NERVE ROOT INJECTION Professor Of Vegetable Science: PSCB Transcribe Date/Time: Nov 23 2017 10:44A Dictated by : HUNTER PAYAN MD This examination was interpreted and the report reviewed and electronically signed by: HUNTER PAYAN MD on Nov 23 2017 10:45AM EST [id number] OPERATIVE NO Observed: 11/23/2017 Status: COMPLETED Source: [place] 8:30 AM [facility] REPOSITORY HNO ID: [id number] Author: Fritz Mckeon Service: Pain Management Author Type: Physician Type: Operative Report Filed: 11/23/2017 8:32 AM Note Text: PATIENT NAME: Alyce Urrutia SERVICE DATE: 11/23/2017 PREOPERATIVE DIAGNOSIS(ES) Lumbar spondylosis without myelopathy Degeneration of lumbar intervertebral disc Lumbar facet arthropathy POSTOPERATIVE DIAGNOSIS(ES): same OPERATION: Right L2,3,4,5,S1 Lumbar Facet Medial Branch Nerve RFA under fluoroscopy. ANESTHESIA: versed 4mg, fentanyl 100mcg IV INDICATIONS: The patient had positive diagnostic facet medial branch nerve blocks. The pain overall has improved by greater than 60% and the patient reports an increase in physical activity. Recommend RFA at right L2.3.4.5.S1 lumbar medial branch nerves. The risks and benefits of the procedure were discussed. Specifically, the risks of bleeding, infection, inadvertent dural puncture, spinal heaches, vasovagal reaction, epidural hematoma, partial or permanent nerve injury were covered. The potential side effects of medications used in procedures including increase in lumbar pain, headaches, facial redness or warmth (flushing), anxiety or mood swings, sleeplessness, fever, high blood sugar, brief reduction in immunity were discussed. The patient expressed understanding of potential risks and wishes to proceed with the procedure. PROCEDURE: RIGHT L2,3,4,5,S1 FACET MEDIAL BRANCH NERVE RADIOFREQUENCY NEUROTOMY DESCRIPTION OF PROCEDURE: The patient was brought to the fluoroscopy suite. IV access was obtained prior to the procedure. The patient was positioned prone on the fluoroscopy table. Continuous hemodynamic monitoring was initiated including blood pressure and pulse oximetry. IV sedation was administered incrementally to allow the patient to remain comfortable and conversant throughout the procedure. The area of the posterior lumbar area was prepped povidone-iodine three times and draped into a sterile field. Fluoroscopy was used to identify the location of the right side L2-3, L3-4, L4-5 and L5-S1 medial branch nerves respectively. Skin anesthesia was achieved using 3 cc of Lidocaine 0.5% over the injection sites. A 20 gauge, 100mm (10mm active tip) curved RF needle was slowly inserted at each level using AP, lateral and oblique fluoroscopic imaging. Negative aspiration for blood or CSF was confirmed. Sensory stimulation at 50Hz below 0.5V was achieved at every level. Motor stimulation at 2Hz up to 1.5V did not cause any radicular symptoms at any level. Each level was anesthetized with 1.5 cc of lidocaine 1%. Radiofrequency lesioning was performed for 90 seconds at 80 degrees at each level. At each level, 1ml of 0.25% Marcaine with 5 mg of Kenalog was injected. The needles were removed and bleeding was nil. A sterile dressing was applied. Alyce Urrutia was taken to the Post- block Recovery Area for further observation. EBL: nil Start time: 8:09 AM End time: 8:29 AM I was present the entire time and personally performed the procedure. SIGNATURE: Fritz Mckeon MD DATE: November 23, 2017 TIME: 8:30 AM HISTORY PHYSICAL Observed: 11/23/2017 Status: COMPLETED Source: [place] 7:36 AM CLINIC OTHER CAMPUS REPOSITORY O ID: [id number] Author: Fritz Mckeon Service: Pain Management Author Type: Physician Type: HANDP Filed: 11/23/2017 7:36 AM Note Text: HISTORY AND PHYSICAL EXAMINATION PATIENT NAME: Alyce Urrutia DATE of SERVICE: 11/23/2017 Alyce Urrutia is here for the pain mangement procedure. The patient presents with persistent pain complaints. Alyce Urrutia denies any interval changes or new pain complaints or focal neurologic deficits. PAST MEDICAL HISTORY Diagnosis Date - Abdominal pain, epigastric - Abdominal pain, unspecified site - Acute gastritis without mention of hemorrhage - Anemia, unspecified - Asthma - Circumscribed scleroderma - Diverticulosis of colon (without mention of hemorrhage) - Essential hypertension, benign - Internal hemorrhoids without mention of complication - Irritable bowel syndrome - Kidney disease - Non morbid obesity 06/25/2015 - Osteoarthrosis, unspecified whether generalized or localized, other specified sites Osteoarthritis - Other diseases of lung, not elsewhere classified - PMH - PAST MEDICAL HISTORY OF leukopenia - Pure hypercholesterolemia - Snoring - Unspecified hypothyroidism PAST SURGICAL HISTORY Procedure Laterality Date - COLONOSCOP W/ OR W/O [facility] SPEC 11/28/07 - COLONOSCOP W/ OR W/O [facility] SPEC 10/06/14 Colonoscopy - DANDC, DIAG AND/OR THERAPEUTIC 10/10/2012 Dilation AND curettage w/ resection polyp - EGD W/O [facility] SPECIMEN W/BX 09/26/06 - KNEE SCOPE,DIAGNOSTIC 01/14 Arthroscopy, knee-RIGHT - PAST SURGICAL HISTORY OF 04/07/98 Minimal access right frontal craniotomy with biopsy and gross - PAST SURGICAL HISTORY OF spinal injection - TOTAL HIP REPLACEMENT Right 07/06/15 Hip replacement, total - TOTAL KNEE REPLACEMENT 06/12/2005 Knee replacement, total-right - TOTAL KNEE REPLACEMENT Left 06/27/2016 Knee replacement, total Social History Marital status: Spouse name: Dorothy Years of education: Number of children: 2 Occupational History Occupation Employer Comment [employer]* Social History Main Topics Smoking status: Former Smoker Packs/day: 1.00 Years: 3.00 Types: Cigarettes Smokeless tobacco: Former User Comment: QUIT 50 YEARS AGO Alcohol use: Yes 1.0 oz/week Comment: occassional Drug use: No Sexual activity: Yes Partners with: Male FAMILY HISTORY Problem Relation Age of Onset - Arthritis Mother - Arthritis Father - None Brother ALLERGIES Allergen Reactions - Prednisone Shortness of Breath Pallor, chest pain, palpitations - Beef Containing Pro* Intolerance - Levaquin [Levofloxa* Other: See Comments sores in mouth/joint pain - Mirapex [Pramipexol* Intolerance Doesn't help leg cramps - Tramadol Intolerance Pt gets jittery - Valsartan-Hydrochlo* Other: See Comments Worsens nocturnal leg cramps. Patient can take valsartan alone with no issues Current Facility-Administered Medications: NaCl 0.9% iv infusion 30 mL/hr INTRAVENOUS CONTINUOUS Physical Exam: Performed in conjunction with observation. The patient is alert and oriented x3. The patient is in no acute distress. Neck: Supple. The range of motion is intact. Lungs: clear CVR: RRR. Extremities: no reported edema or erythema. Examination indicates no changes Impression: Lumbar facet arthropathy Plan: The informed consent has been obtained. The plan is to proceed with the procedure as planned. SIGNATURE: Fritz Mckeon MD DATE: November 23, 2017 TIME: 7:36 AM PT ED Observed: 11/23/2017 Status: COMPLETED Source: [place] 6:57 AM [facility] OTHER CAMPUS REPOSITORY O ID: [id number] Author: Natalie (Rn) AMI Richter Service: Nursing Author Type: Registered Nurse Type: Patient Education Filed: 11/23/2017 6:58 AM Note Text: PRE OP LEARNING ASSESSMENT PROCEDURE/SURGERY: PAIN MANAGEMENT: READINESS TO LEARN COGNITIVE ABILITY: Alert and oriented MOTIVATION TO LEARN: Eager FAMILY SUPPORT: High - Very involved in pt care PATIENT LEARNS BEST BY: Verbal Instruction FACTORS AFFECTING LEARNING: None PHYSICAL LIMITATIONS AFFECTING LEARNING: None Electronically Signed By: Natalie Richter RN In Department: [facility] HOSP Observed: 10/30/2017 Status: COMPLETED Source: [place] 12:00 AM [facility] OTHER CAMPUS REPOSITORY Patient:Alyce Urrutia MRN: <[id number]> Height:5' 6(1.676 m) Weight:No patient weight recorded within the last 30 days. Outpatient Medications as of 11/23/17: cyanocobalamin, vitamin B-12, (VITAMIN B-12 ORAL) lactobacillus combination no.4 (PROBIOTIC) 3 billion cell cap gabapentin (NEURONTIN) 100 mg capsule UBIQUINONE ORAL tiZANidine (ZANAFLEX) 4 mg tablet meloxicam (MOBIC) 15 mg tablet chlordiazePOXIDE-clidinium (LIBRAX, WITH CLINIDIUM,) 5-2.5 mg per capsule clotrimazole-betamethasone (LOTRISONE) cream Diclofenac Sodium (VOLTAREN) 1 % gel QUININE, BULK, MISC amoxicillin (POLYMOX, AMOXIL) 500 mg capsule cholecalciferol, vitamin D3, 50,000 unit tab valsartan (DIOVAN) 160 mg tablet amLODIPine (NORVASC) 5 mg tablet omeprazole 20 mg capsule LUTEIN 20 MG CAP SYNTHROID 150MCG TABLET Admission/Clinic Administered Medications as of 11/23/17: NaCl 0.9% iv infusion Problem List: Essential hypertension, benign [I10] Hypothyroidism [E03.9] OA (osteoarthritis) [M19.90] Pain in limb [M79.609] 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] OA (osteoarthritis) of knee [M17.10] Lumbar spondylosis [M47.816] DDD (degenerative disc disease), lumbar [M51.36] GERD (gastroesophageal reflux disease) [K21.9] Asthma [J45.909] Anemia [D64.9] CKD (chronic kidney disease) [N18.9] Cervical spondylosis without myelopathy [M47.812] Acute neck pain [M54.2] Bilateral occipital neuralgia [M54.81] Cervical strain [S16.1XXA] Non morbid obesity [E66.9] H/O total hip arthroplasty [Z96.649] Altered gait [R26.9] Weakness of right hip [R29.898] Chronic pain of left knee [M25.562, G89.29] Iron deficiency anemia, unspecified [D50.9] 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.9] Status post knee replacement [Z96.659] Weakness of both lower extremities [R29.898] Chronic bilateral low back pain without sciatica [M54.5, G89.29] Degenerative disc disease, lumbar [M51.36] Lumbar facet joint pain [M54.5] Chronic low back pain without sciatica [M54.5, G89.29] Chronic right-sided low back pain without sciatica [M54.5, G89.29] Allergies: Prednisone Beef Containing Products Levaquin [Levofloxacin] Mirapex [Pramipexole] Tramadol Valsartan-Hydrochlorothiazide Date Verified: 11/23/17 Lab Values No results within the last 30 days for the following basenames: K,HCT Progress Notes (PAIN [facility]): Martha Cisneros APRN.[employer] 10/30/2017 10:48 AM Signed I saw today for an office visit. I also see this patient. She had a right L2, 3, 4, 5, S1 facet injection on ? and reports 85-90% pain relief. She would like to proceed with the RFA on the right side. Order placed and patient is ready to be scheduled PT ED Observed: 10/10/2017 Status: COMPLETED Source: [place] 9:23 AM [facility] REPOSITORY HNO ID: [id number] Author: Marilyn (Rn) AMI Brothers Service: (none) Author Type: Registered Nurse Type: Patient Education Filed: 10/10/2017 9:24 AM Note Text: POST OP LEARNING RESPONSE INSTRUCTION PROVIDED TO: Patient METHOD OF INSTRUCTION: Teach Back done Group class instruction PATIENT / FAMILY RESPONSE: Verbalizes understanding of: PRE-PROCEDURE INSTRUCTIONS-Correct action to take to follow pre-procedure instructions FOLLOW-UP PLAN: Patient instructed to call with any further issues Contact information given. SUPPLEMENTAL MATERIAL: None REFERRAL (RECOMMENDATION): None Electronically Signed By: Marilyn Brothers RN In Department: [facility] XR FLUOROSCOPY Observed: 10/10/2017 Status: F Source: [place] 9:13 AM [facility] REPOSITORY * * *Final Report* * * DATE OF EXAM: Oct 10 2017 9:13AM MDR [id number] - XR FLUOROSCOPY / PROCEDURE REASON: RIGHT L2-L3, L3-L4, L4-L5, L5-S1 FAET MEDIAL BRANCH NERVE BLOCK FOR PAIN * * * * Physician Interpretation * * * * INDICATION: Pain management TECHNIQUE: 3 fluoroscopic spot images were submitted. FLUOROSCOPY TIME: 0:30 FINDINGS/ IMPRESSION: 3 submitted fluoroscopic spot images demonstrate multiple needles directed at the lumbar spine. 4 to the procedure note for details regarding this procedure. Professor Of Vegetable Science: PSCB Transcribe Date/Time: Oct 10 2017 9:23A Dictated by : LIZ STARK MD This examination was interpreted and the report reviewed and electronically signed by: LIZ STARK MD on Oct 10 2017 9:40AM EST [id number] OPERATIVE NO Observed: 10/10/2017 Status: COMPLETED Source: [place] 9:11 AM [facility] REPOSITORY HNO ID: [id number] Author: Fritz Mckeon Service: Pain Management Author Type: Physician Type: Operative Report Filed: 10/10/2017 9:12 AM Note Text: PATIENT NAME: Alyce Urrutia SERVICE DATE: 10/10/2017 PROCEDURE NOTE PREOPERATIVE DIAGNOSIS(ES) Lumbar Spondylosis Lumbar Degerative Disc Disease POSTOPERATIVE DIAGNOSIS(ES): Same OPERATION: Right L2,3,4,5.S1 Lumbar Facet Medial Branch Nerve Blockunder fluoroscopy. ? ANESTHESIA: versed 3mg IV ? ? INDICATIONS: Alyce Urrutia presents for lumbar facet (medial branch) injections. Since the last visit, the patient denies any new pain complaints and denies any focal neurological deficits. The plan is to proceed with diagnostic lumbar facet medial branch nerve block. The risks and benefits of the procedure were discussed. Specifically, the risks of bleeding, infection, inadvertent dural puncture, spinal heaches, vasovagal reaction, epidural hematoma, partial or permanent nerve injury were covered. The potential side effects of medications used in procedures including increase in lumbar pain, headaches, facial redness or warmth (flushing), anxiety or mood swings, sleeplessness, fever, high blood sugar, brief reduction in immunity were discussed. The patient expressed understanding of potential risks and wishes to proceed with the procedure. ? OPERATIVE PROCEDURE: The patient was brought to the operating room. The patient was placed in the prone position with routine monitors placed. The lower back was prepped in sterile fashion. Fluoroscopy was used to identify the location of the right L2, L3, L4, and L5 medial branch nerves at the junctions of the superior articular process and the transverse processes of L2, L3, L4, L5, and the sacral ala respectively. Skin anesthesia was achieved using 10 cc of Lidocaine 1% over the injection sites. A 22 gauge, 3 1/2 spinal needle was slowly inserted at each level using AP, lateral and oblique fluoroscopic imaging. Negative aspiration for blood or CSF was confirmed. A total of 5ml of a medication mixture of 5mg of Kenalog per 1ml of Marcaine 0.25% was injected. A total of 5 sites were injected in equal and divided doses. The needles were removed and bleeding was nil. A sterile dressing was applied. The patient tolerated the procedure well. The patient was taken to the recovery room in stable condition. ? EBL: nil Start time: 9:02 AM End time: 9:09 AM I was present the entire time and personally performed the procedure. SIGNATURE: Fritz Mckeon MD DATE: October 10, 2017 TIME: 9:11 AM HISTORY PHYSICAL Observed: 10/10/2017 Status: COMPLETED Source: [place] 8:50 AM [facility] OTHER CAMPUS REPOSITORY [facility] ID: [id number] Author: Fritz Mckeon Service: Pain Management Author Type: Physician Type: HANDP Filed: 10/10/2017 8:52 AM Note Text: HISTORY AND PHYSICAL EXAMINATION PATIENT NAME: Alyce Urrutia DATE of SERVICE: 10/10/2017 Alyce Urrutia is here for the pain mangement procedure. The patient presents with persistent pain complaints. Alyce Urrutia denies any interval changes or new pain complaints or focal neurologic deficits. PAST MEDICAL HISTORY Diagnosis Date - Abdominal pain, epigastric - Abdominal pain, unspecified site - Acute gastritis without mention of hemorrhage - Anemia, unspecified - Asthma - Circumscribed scleroderma - Diverticulosis of colon (without mention of hemorrhage) - Essential hypertension, benign - Internal hemorrhoids without mention of complication - Irritable bowel syndrome - Kidney disease - Non morbid obesity 06/25/2015 - Osteoarthrosis, unspecified whether generalized or localized, other specified sites Osteoarthritis - Other diseases of lung, not elsewhere classified - PMH - PAST MEDICAL HISTORY OF leukopenia - Pure hypercholesterolemia - Snoring - Unspecified hypothyroidism PAST SURGICAL HISTORY Procedure Laterality Date - COLONOSCOP W/ OR W/O [facility] SPEC 11/28/07 - COLONOSCOP W/ OR W/O [facility] SPEC 10/06/14 Colonoscopy - DANDC, DIAG AND/OR THERAPEUTIC 10/10/2012 Dilation AND curettage w/ resection polyp - EGD W/O [facility] SPECIMEN W/BX 09/26/06 - KNEE SCOPE,DIAGNOSTIC 01/14 Arthroscopy, knee-RIGHT - PAST SURGICAL HISTORY OF 04/07/98 Minimal access right frontal craniotomy with biopsy and gross - PAST SURGICAL HISTORY OF spinal injection - TOTAL HIP REPLACEMENT Right 07/06/15 Hip replacement, total - TOTAL KNEE REPLACEMENT 06/12/2005 Knee replacement, total-right - TOTAL KNEE REPLACEMENT Left 06/27/2016 Knee replacement, total Social History Marital status: Spouse name: Dorothy Years of education: Number of children: 2 Occupational History Occupation Employer Comment [employer]* Social History Main Topics Smoking status: Former Smoker Packs/day: 1.00 Years: 3.00 Types: Cigarettes Smokeless tobacco: Former User Comment: QUIT 50 YEARS AGO Alcohol use: Yes 1.0 oz/week Comment: occassional Drug use: No Sexual activity: Yes Partners with: Male FAMILY HISTORY Problem Relation Age of Onset - Arthritis Mother - Arthritis Father - None Brother ALLERGIES Allergen Reactions - Prednisone Shortness of Breath Pallor, chest pain, palpitations - Beef Containing Pro* Intolerance - Levaquin [Levofloxa* Other: See Comments sores in mouth/joint pain - Mirapex [Pramipexol* Intolerance Doesn't help leg cramps - Tramadol Intolerance Pt gets jittery - Valsartan-Hydrochlo* Other: See Comments Worsens nocturnal leg cramps. Patient can take valsartan alone with no issues Current Facility-Administered Medications: NaCl 0.9% iv infusion 30 mL/hr INTRAVENOUS CONTINUOUS Physical Exam: Performed in conjunction with observation. The patient is alert and oriented x3. The patient is in no acute distress. Neck: Supple. The range of motion is intact. Lungs: clear CVR: RRR. Extremities: no reported edema or erythema. Examination indicates no changes Impression: Lumbar spondylosis Lumbar facet syndrome Plan: The informed consent has been obtained. The plan is to proceed with the procedure as planned. SIGNATURE: Fritz Mckeon MD DATE: October 10, 2017 TIME: 8:51 AM PT ED Observed: 10/10/2017 Status: COMPLETED Source: [place] 7:43 AM CLINIC OTHER CAMPUS REPOSITORY O ID: [id number] Author: Patito (Rn) AMI Ayers Service: Nursing Author Type: Registered Nurse Type: Patient Education Filed: 10/10/2017 7:43 AM Note Text: PRE OP LEARNING ASSESSMENT PROCEDURE/SURGERY: lumbar injection READINESS TO LEARN COGNITIVE ABILITY: Alert and oriented MOTIVATION TO LEARN: Interested FAMILY SUPPORT: High - Very involved in pt care PATIENT LEARNS BEST BY: Verbal Instruction FACTORS AFFECTING LEARNING: None PHYSICAL LIMITATIONS AFFECTING LEARNING: None Electronically Signed By: Patito Ayers RN In Department: [facility] SURGERY TXT - BLOOD FLOW Observed: 10/05/2017 Status: F Source: [place] SCREENING 4:[address] [facility] REPOSITORY [facility] Cardiovascular Services [address] [place] [address] 10/02/17 0928 MR#: [id number] Acct: [id number] Name: ALYCE URRUTIA Rep #: [id number] : [id number] 76 From: Johan Ortega MD Attending Dr: Kristine Moncada DO Status: REG REF Ordering Dr: Date: 10/05/17 Location: [facility] Sex: F C Admitted: Reason For Study: Blood flow screening Carotid Duplex Ultrasound Abdominal Aorta The right maximum ICA velocity is 76.6/26.5 cm/s.The maximal outside diameter of the proximal The right ECA velocity is less than 125 cm/s. aorta measures 1.7 cm in the longitudinal axis. There is no plaque formation noted on the right The maximal outside diameter of the proximal side. aorta measures 1.7 x 1.8 cm in the cross- The left maximum ICA velocity is 73.9/26.2 cm/s. sectional axis. The left ECA velocity is less than 125 cm/s. There is no plaque formation noted on the left side. Ankle Brachial Index The right ankle/ brachial index is 1.0. The left ankle/ brachial index is 1.0. Medical History and Assessment The client presents with a history of high blood pressure. The heart rate is 72 beats per minute. The heart rhythm is regular. The right blood pressure is 140/78. The left blood pressure is 144/80. The assessment was performed by Omkar Duron RVT. Interpretation Summary Normal carotid artery screening (0 to 15% narrowing). Normal aortic ultrasound exam. The ankle/brachial index is normal (1.0 or greater). .rdering Physician: Kristine Moncada D.O Performed By: Loreto Duron RVT 10/05/171656 Date Johan Ortega MD CC: Kristine Moncada DO Date Dictated: 10/02/17927 Date Transcribed: 10/05/171656 Professor Of Vegetable Science: Signed SCREENING MAMM (CAD), Observed: 10/02/2017 Status: F Source: [facility] 9:[address] [facility] REPOSITORY [facility] Imaging Services [address] [place] [id number] SCREENING MAMM (CAD), BILAT MR#: [id number] Acct: [id number] Name: ALYCE URRUTIA Rep #: [id number] : 1940 F 76 From: Noel Avitia MD PCP: Kristine Moncada DO Status: REG CLI Study: SCREENING MAMM (CAD), BILAT Date of Exam: 10/02/17 Exam# [id number] Ordering Dr: Kristine Moncada DO MAMMOGRAPHY - BILATERAL SCREENING 3-D DANISH SYNTHESIS REASON FOR EXAM: Female, 76 years old. Bilateral Screening 3-D tomosynthesis PERTINENT HISTORY: No significant family history. TECHNIQUE: 2-D mammograms and 3-D Danish synthesis of the breast (s) were performed. CAD was performed. COMPARISON: None. FINDINGS: The breast composition is composed of scattered fibroglandular density. Scattered benign calcifications are seen. No dense spiculated masses or suspicious microcalcifications are identified. No architectural distortion is identified. There is no skin thickening or retraction. There has been no significant change since the prior study. There has been no significant change since the prior study. BI/SCREENING MAMM (CAD), BILAT IMPRESSION: No mammographic signs of malignancy. Routine yearly mammograms recommended. ASSESSMENT CATEGORY: BIRADS Category 2: Benign. A letter regarding these results will be sent to the patient by the facility within 30 days. FOLLOW UP RECOMMENDATION: Yearly follow up mammogram recommended. (A) Approximately 10% of breast cancers are not detected by mammography. A normal mammogram should not delay biopsy of a clinically suspicious abnormality. Electronically Signed: Yung Avitia MD at 8:23 EDT , Service support , CC: Kristine Moncada DO Professor Of Vegetable Science: Signed HOSP Observed: 09/20/2017 Status: COMPLETED Source: [place] 12:00 AM CLINIC OTHER CAMPUS REPOSITORY Patient:Alyce Urrutia MRN: <[id number]> Height:5' 6(1.676 m) Weight:243 lb (110.224 kg) Outpatient Medications as of 10/10/17: cyanocobalamin, vitamin B-12, (VITAMIN B-12 ORAL) lactobacillus combination no.4 (PROBIOTIC) 3 billion cell cap gabapentin (NEURONTIN) 100 mg capsule UBIQUINONE ORAL tiZANidine (ZANAFLEX) 4 mg tablet meloxicam (MOBIC) 15 mg tablet chlordiazePOXIDE-clidinium (LIBRAX, WITH CLINIDIUM,) 5-2.5 mg per capsule clotrimazole-betamethasone (LOTRISONE) cream Diclofenac Sodium (VOLTAREN) 1 % gel QUININE, BULK, MISC amoxicillin (POLYMOX, AMOXIL) 500 mg capsule cholecalciferol, vitamin D3, 50,000 unit tab valsartan (DIOVAN) 160 mg tablet amLODIPine (NORVASC) 5 mg tablet omeprazole 20 mg capsule LUTEIN 20 MG CAP SYNTHROID 150MCG TABLET Admission/Clinic Administered Medications as of 7/31/18: NaCl 0.9% iv infusion Problem List: Essential hypertension, benign [I10] Hypothyroidism [E03.9] OA (osteoarthritis) [M19.90] Pain in limb [M79.609] 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] OA (osteoarthritis) of knee [M17.10] Lumbar spondylosis [M47.816] DDD (degenerative disc disease), lumbar [M51.36] GERD (gastroesophageal reflux disease) [K21.9] Asthma [J45.909] Anemia [D64.9] CKD (chronic kidney disease) [N18.9] Cervical spondylosis without myelopathy [M47.812] Acute neck pain [M54.2] Bilateral occipital neuralgia [M54.81] Cervical strain [S16.1XXA] Non morbid obesity [E66.9] H/O total hip arthroplasty [Z96.649] Altered gait [R26.9] Weakness of right hip [R29.898] Chronic pain of left knee [M25.562, G89.29] Iron deficiency anemia, unspecified [D50.9] 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.9] Status post knee replacement [Z96.659] Weakness of both lower extremities [R29.898] Chronic bilateral low back pain without sciatica [M54.5, G89.29] Degenerative disc disease, lumbar [M51.36] Lumbar facet joint pain [M54.5] Chronic low back pain without sciatica [M54.5, G89.29] Allergies: Prednisone Beef Containing Products Levaquin [Levofloxacin] Mirapex [Pramipexole] Tramadol Valsartan-Hydrochlorothiazide Date Verified: 10/10/17 Lab Values No results within the last 30 days for the following basenames: K,HCT Progress Notes (PAIN [facility]): Martha Cisneros APRN.HEEL BUILDER MACHINE 09/15/2017 10:08 AM Signed SUBJECTIVE: Alyce Urrutia presents to [facility] Pain Management Department for a followup appointment for post injection. Since the last visit, Alyce Urrutia states the pain has been getting better. Current pain intensity is 4 on a scale of 0-10. Pain located in Back area and does not radiate. Pain described as aching and soreness The patient Reports weakness and morning stiffness. Symptoms interfere with physical activity. Pain is exacerbated by standing, forward flexion, lifting, getting up from sitting and walking. Pain is mitigated by sitting, lying down and medications. The patient is overall improved with the injections by 35%. REVIEW OF SYSTEMS: Constitutional: (-) Fever (-) Night Sweats (-) Weight Gain (-) Weight Loss (+) Fatigue Cardiovascular: (-) Chest Pain (-) Palpitations (-) Lightheadedness (-) Swelling of Ankles (-) Hx Heart Surgery Respiratory: (-) Shortness of Breath (-) Cough (-) Wheezing (+) Snoring Gastrointestinal: (-) Incontinence (-) Abdominal Pain (-) Diarrhea (-) Constipation (-) Nausea/Vomiting (-) Heart Burn Endocrine: (+) Thyroid Disorder (-) Diabetes Hematologic: (-) Prolonged Bleeding (-) Easy Bruising Genitourinary: (-) Incontinence (+) Frequency (-) Urinary Urgency Skin: (-) Rashes (-) Itching (-) Other Lesions Neurologic: (-) Headache (-) Double Vision (-) Confusion (-) Paralysis Psychiatric: (-) Depression (-) Anxiety (-) Delusions (-) Hallucinations (-) Personal History of Alcohol or Substance Abuse (-) Family History of Alcohol or Substance Abuse OBJECTIVE: Pulse 89 Wt 243 lb (110.2kg) SpO2 98% PHYSICAL EXAMINATION: General appearance: Well appearing, in no acute distress, alert Skin: Skin color, texture, turgor normal, no rashes or lesions Neck: No pain to palpation over the cervical paraspinous muscles. No pain with neck flexion, extension, or lateral flexion Cardiovascular: Regular rate Lungs: Normal respiratory rate and rhythm Abdomen: Abdomen soft and non-tender. Back: Decreased range of motion with pain reproduction. Spine: Reports Tenderness on palpation: Lumbar, right Extremities: No deformities, edema, or skin discoloration. Good capillary refill. Musculoskeletal: Bilateral upper and lower extremity strength is normal and symmetric. No atrophy or tone abnormalities are noted. Neuro: No loss of sensation is noted. Station and Gait: flexed posture and gait using a cane Motor: Exhibits full strength in all four extremities. Trigger points: none. ASSESSMENT: Assessment : Pt reports lower back pain on the right side, denies radicular sxs She had a right L2,3,4,5,S1 facet injection on 08-01-17 and reports >35% improvement. She would like to repeat. Consider RFA Encouraged daily activity to include walking, stretching and exercising Patient ambulates with a cane Encounter Diagnosis ICD-10-CM 1. Weakness of both lower extremities R29.898 2. Chronic bilateral low back pain without sciatica M54.5 G89.29 3. Degenerative disc disease, lumbar M51.36 4. Lumbar facet joint pain M54.5 OARRS website checked and validated. All prescriptions have been APPROPRIATELY filled. No suspicious activity was identified.- 09/14/2017 by Layne Castrejon MA Narcotic Agreement reviewed and signed?: N/A on September 14, 2017 The pain panel was N/A PLAN: 1) Ordered repeat right L2,3,4,5,S1 Facet injection 2) Patient instructed to call x2 weeks after procedure to report percentage of improvement 3) Consider RFA. Discussed procedure today 4) Encouraged daily activity: walking, exercising and stretching 5) RTC 3 months The above plan and management options were discussed at length with patient. Patient is in agreement with the above and verbalized understanding. Martha Cisneros APRN, CNP September 14, 2017 Previous Version PROGRESS Observed: 09/14/2017 Status: COMPLETED Source: [place] 1:20 PM [facility] [place] REPOSITORY HNO ID: [id number] Author: Martha Cisneros Service: (none) Author Type: Nurse Practitioner Type: Progress Notes Filed: 09/15/2017 10:08 AM Note Text: SUBJECTIVE: Alyce Delvalle Urrutia presents to [facility] for a followup appointment for post injection. Since the last visit, Alyce Delvalle Micaela states the pain has been getting better. Current pain intensity is 4 on a scale of 0-10. Pain located in Back area and does not radiate. Pain described as aching and soreness The patient Reports weakness and morning stiffness. Symptoms interfere with physical activity. Pain is exacerbated by standing, forward flexion, lifting, getting up from sitting and walking. Pain is mitigated by sitting, lying down and medications. The patient is overall improved with the injections by 35%. REVIEW OF SYSTEMS: Constitutional: (-) Fever (-) Night Sweats (-) Weight Gain (-) Weight Loss (+) Fatigue Cardiovascular: (-) Chest Pain (-) Palpitations (-) Lightheadedness (-) Swelling of Ankles (-) Hx Heart Surgery Respiratory: (-) Shortness of Breath (-) Cough (-) Wheezing (+) Snoring Gastrointestinal: (-) Incontinence (-) Abdominal Pain (-) Diarrhea (-) Constipation (-) Nausea/Vomiting (-) Heart Burn Endocrine: (+) Thyroid Disorder (-) Diabetes Hematologic: (-) Prolonged Bleeding (-) Easy Bruising Genitourinary: (-) Incontinence (+) Frequency (-) Urinary Urgency Skin: (-) Rashes (-) Itching (-) Other Lesions Neurologic: (-) Headache (-) Double Vision (-) Confusion (-) Paralysis Psychiatric: (-) Depression (-) Anxiety (-) Delusions (-) Hallucinations (-) Personal History of Alcohol or Substance Abuse (-) Family History of Alcohol or Substance Abuse OBJECTIVE: Pulse 89 Wt 243 lb (110.2kg) SpO2 98% PHYSICAL EXAMINATION: General appearance: Well appearing, in no acute distress, alert Skin: Skin color, texture, turgor normal, no rashes or lesions Neck: No pain to palpation over the cervical paraspinous muscles. No pain with neck flexion, extension, or lateral flexion Cardiovascular: Regular rate Lungs: Normal respiratory rate and rhythm Abdomen: Abdomen soft and non-tender. Back: Decreased range of motion with pain reproduction. Spine: Reports Tenderness on palpation: Lumbar, right Extremities: No deformities, edema, or skin discoloration. Good capillary refill. Musculoskeletal: Bilateral upper and lower extremity strength is normal and symmetric. No atrophy or tone abnormalities are noted. Neuro: No loss of sensation is noted. Station and Gait: flexed posture and gait using a cane Motor: Exhibits full strength in all four extremities. Trigger points: none. ASSESSMENT: Assessment : Pt reports lower back pain on the right side, denies radicular sxs She had a right L2,3,4,5,S1 facet injection on 08-01-17 and reports >35% improvement. She would like to repeat. Consider RFA Encouraged daily activity to include walking, stretching and exercising Patient ambulates with a cane Encounter Diagnosis ICD-10-CM 1. Weakness of both lower extremities R29.898 2. Chronic bilateral low back pain without sciatica M54.5 G89.29 3. Degenerative disc disease, lumbar M51.36 4. Lumbar facet joint pain M54.5 OARRS website checked and validated. All prescriptions have been APPROPRIATELY filled. No suspicious activity was identified.- 09/14/2017 by Layne Castrejon MA Narcotic Agreement reviewed and signed?: N/A on September 14, 2017 The pain panel was N/A PLAN: 1) Ordered repeat right L2,3,4,5,S1 Facet injection 2) Patient instructed to call x2 weeks after procedure to report percentage of improvement 3) Consider RFA. Discussed procedure today 4) Encouraged daily activity: walking, exercising and stretching 5) RTC 3 months The above plan and management options were discussed at length with patient. Patient is in agreement with the above and verbalized understanding. Martha Cisneros APRN, CNP September 14, 2017 CNOV Observed: 09/14/2017 Status: COMPLETED Source: [place] 1:00 PM [facility] REPOSITORY Office Visit (PNMDNA) ALYCE URRUTIA ([id number]) 1940 F NFR Date Time Provider Department 09/14/17 1:00 PM MARTHA CISNEROS (ZULEIMA) STEVE During your visit today, we recorded the following information about you: Pulse Weight 89/minute 110.2 kg Martha Cisneros APRN.ZULEIMA 09/15/2017 10:08 AM Signed SUBJECTIVE: Alyce Urrutia presents to [facility] Pain Management Department for a followup appointment for post injection. Since the last visit, Alyce Urrutia states the pain has been getting better. Current pain intensity is 4 on a scale of 0-10. Pain located in Back area and does not radiate. Pain described as aching and soreness The patient Reports weakness and morning stiffness. Symptoms interfere with physical activity. Pain is exacerbated by standing, forward flexion, lifting, getting up from sitting and walking. Pain is mitigated by sitting, lying down and medications. The patient is overall improved with the injections by 35%. REVIEW OF SYSTEMS: Constitutional: (-) Fever (-) Night Sweats (-) Weight Gain (-) Weight Loss (+) Fatigue Cardiovascular: (-) Chest Pain (-) Palpitations (-) Lightheadedness (-) Swelling of Ankles (-) Hx Heart Surgery Respiratory: (-) Shortness of Breath (-) Cough (-) Wheezing (+) Snoring Gastrointestinal: (-) Incontinence (-) Abdominal Pain (-) Diarrhea (-) Constipation (-) Nausea/Vomiting (-) Heart Burn Endocrine: (+) Thyroid Disorder (-) Diabetes Hematologic: (-) Prolonged Bleeding (-) Easy Bruising Genitourinary: (-) Incontinence (+) Frequency (-) Urinary Urgency Skin: (-) Rashes (-) Itching (-) Other Lesions Neurologic: (-) Headache (-) Double Vision (-) Confusion (-) Paralysis Psychiatric: (-) Depression (-) Anxiety (-) Delusions (-) Hallucinations (-) Personal History of Alcohol or Substance Abuse (-) Family History of Alcohol or Substance Abuse OBJECTIVE: Pulse 89 Wt 243 lb (110.2kg) SpO2 98% PHYSICAL EXAMINATION: General appearance: Well appearing, in no acute distress, alert Skin: Skin color, texture, turgor normal, no rashes or lesions Neck: No pain to palpation over the cervical paraspinous muscles. No pain with neck flexion, extension, or lateral flexion Cardiovascular: Regular rate Lungs: Normal respiratory rate and rhythm Abdomen: Abdomen soft and non-tender. Back: Decreased range of motion with pain reproduction. Spine: Reports Tenderness on palpation: Lumbar, right Extremities: No deformities, edema, or skin discoloration. Good capillary refill. Musculoskeletal: Bilateral upper and lower extremity strength is normal and symmetric. No atrophy or tone abnormalities are noted. Neuro: No loss of sensation is noted. Station and Gait: flexed posture and gait using a cane Motor: Exhibits full strength in all four extremities. Trigger points: none. ASSESSMENT: Assessment : Pt reports lower back pain on the right side, denies radicular sxs She had a right L2,3,4,5,S1 facet injection on 08-01-17 and reports >35% improvement. She would like to repeat. Consider RFA Encouraged daily activity to include walking, stretching and exercising Patient ambulates with a cane Encounter Diagnosis ICD-10-CM 1. Weakness of both lower extremities R29.898 2. Chronic bilateral low back pain without sciatica M54.5 G89.29 3. Degenerative disc disease, lumbar M51.36 4. Lumbar facet joint pain M54.5 OARRS website checked and validated. All prescriptions have been APPROPRIATELY filled. No suspicious activity was identified.- 09/14/2017 by Layne Castrejon MA Narcotic Agreement reviewed and signed?: N/A on September 14, 2017 The pain panel was N/A PLAN: 1) Ordered repeat right L2,3,4,5,S1 Facet injection 2) Patient instructed to call x2 weeks after procedure to report percentage of improvement 3) Consider RFA. Discussed procedure today 4) Encouraged daily activity: walking, exercising and stretching 5) RTC 3 months The above plan and management options were discussed at length with patient. Patient is in agreement with the above and verbalized understanding. Martha Cisneros APRN, HEEL BUILDER MACHINE September 14, 2017 Referring Provider: SELF [[id number]] Allergies As of Date: 09/14/2017 Noted Allergy Reaction PREDNISONE 04/26/2012 12 - Shortness of Breath Comments: Pallor, chest pain, palpitations BEEF CONTAINING PRODUCTS 08/26/2014 5 - Intolerance LEVAQUIN (LEVOFLOXACIN) 08/28/2007 14 - Other: See Comments Comments: sores in mouth/joint pain MIRAPEX (PRAMIPEXOLE) 04/26/2012 5 - Intolerance Comments: Doesn't help leg cramps TRAMADOL 12/23/2014 5 - Intolerance Comments: Pt gets jittery VALSARTAN-HYDROCHLOROTHIAZIDE 04/26/2012 14 - Other: See Comments Comments: Worsens nocturnal leg cramps. Patient can take valsartan alone with no issues Date Reviewed: 09/14/2017 Reviewed by: Layne Castrejon MA - Fully Assessed Reason for Visit: Established Patient [175] Follow up after Injection [Other] Primary Visit Diagnosis:Weakness of both lower extremities [R29.898] Other Visit Diagnoses:Chronic bilateral low back pain without sciatica [M54.5, G89.29] Degenerative disc disease, lumbar [M51.36] Lumbar facet joint pain [M54.5] Order(s):NJX DX/THER AGT PVRT FACET JT LMBR/SAC 1 LEVEL [[id number]] Order #: [id number] NJX DX/THER AGT PVRT FACET JT LMBR/SAC 2ND LEVEL [[id number]] Order #: [id number] Prescriptions as of 09/14/2017 Sig: UBIQUINONE ORAL Take 100 mg by mouth once ky* TIZANIDINE 4 MG TABLET Take 1 tablet by mouth twice * MELOXICAM 15 MG TABLET CHLORDIAZEPOXIDE-CLIDINIUM 5 * Take 1 tablet by mouth DAILY.* CLOTRIMAZOLE-BETAMETHASONE 1 * Apply 1 application to affect* DICLOFENAC 1 % TOPICAL GEL Apply 1 g to affected area th* QUININE (BULK) MISC 250 mg as needed. AMOXICILLIN 500 MG CAPSULE Take 4 capsules by mouth as d* CHOLECALCIFEROL (VITAMIN D3) * Take by mouth every Monday. VALSARTAN 160 MG TABLET Take 160 mg by mouth once ky* CYANOCOBALAMIN (VIT B-12) 1,0* Inject intramuscularly once * AMLODIPINE 5 MG TABLET Take 5 mg by mouth once daily. OMEPRAZOLE 20 MG CAPSULE,EMILIANO* Take 20 mg by mouth once patricia* * LUTEIN 20 MG CAPSULE Take one(1) tablet daily. * SYNTHROID 150 MCG TABLET Take one(1) tablet daily. GABAPENTIN 100 MG CAPSULE Take 1 capsule by mouth three* Problem List As Of Date 09/14/2017 Noted Resolved BENIGN HYPERTENSION [I10] Hypothyroidism [E03.9] OA (osteoarthritis) [M19.90] More... PAIN IN LIMB [M79.609] BENIGN BETTIE CEREBR MENINGES [D32.0] INVALID FOR* OA (Osteoarthritis) of Knee [M17.10] INVALID FOR* Endometrial mass [N94.89] INVALID FOR*10/29/2012 Lumbar spondylosis [M47.816] INVALID FOR* DDD (degenerative disc disease), lumbar [M51.36]INVALID FOR* GERD (gastroesophageal reflux disease) [K21.9] INVALID FOR* Asthma [J45.909] INVALID FOR* Anemia [D64.9] INVALID FOR* CKD (chronic kidney disease) [N18.9] INVALID FOR* Cervical spondylosis without myelopathy [M47.81*INVALID FOR* Acute neck pain [M54.2] INVALID FOR* Bilateral occipital neuralgia [M54.81] INVALID FOR* Cervical strain [S16.1XXA] INVALID FOR* Non morbid obesity [E66.9] INVALID FOR* H/O total hip arthroplasty [Z96.649] INVALID FOR* Altered gait [R26.9] INVALID FOR* Weakness of right hip [R29.898] INVALID FOR* Chronic pain of left knee [M25.562, G89.29] INVALID FOR* Iron deficiency anemia, unspecified [D50.9] INVALID FOR* 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.9] INVALID FOR* Status post knee replacement [Z96.659] INVALID FOR* Weakness of both lower extremities [R29.898] INVALID FOR* Chronic bilateral low back pain without sciatic*INVALID FOR* Degenerative disc disease, lumbar [M51.36] INVALID FOR* Lumbar facet joint pain [M54.5] INVALID FOR* Encounter Status:Closed by MARTHA CISNEROS on 09/15/17 PT ED Observed: 08/01/2017 Status: COMPLETED Source: [place] 9:53 AM [facility] OTHER [place] REPOSITORY HNO ID: [id number] Author: Suad (Rn) AMI Linn Service: Nursing Author Type: Registered Nurse Type: Patient Education Filed: 08/01/2017 9:53 AM Note Text: POST OP LEARNING RESPONSE INSTRUCTION PROVIDED TO: Patient METHOD OF INSTRUCTION: Individual instruction PATIENT / FAMILY RESPONSE: Verbalizes understanding of: POST-PROCEDURE INSTRUCTIONS-Correct actions to take to reduce post procedure complications FOLLOW-UP PLAN: Complete - No need for follow-up SUPPLEMENTAL MATERIAL: None REFERRAL (RECOMMENDATION): None Electronically Signed By: Suad Linn RN In Department: [facility] SURGERY XR FLUOROSCOPY Observed: 08/01/2017 Status: F Source: [place] 9:45 AM [facility] OTHER [place] REPOSITORY * * *Final Report* * * DATE OF EXAM: Aug 01 2017 9:45AM [facility] [id number] - XR FLUOROSCOPY / PROCEDURE REASON: RIGHT L2-L3, L3-L4, L4-L5 ,L5-S1 FACET MEDIAL BRANCH NERVE BLOCK FOR PAIN * * * * Physician Interpretation * * * * INDICATION: RIGHT L2-L3, L3-L4, L4-L5 ,L5-S1 FACET MEDIAL BRANCH NERVE BLOCK FOR PAIN TECHNIQUE: Fluoroscopy with 2 views of the lower lumbar spine FLUOROSCOPY TIME: 0:29 FINDINGS/ IMPRESSION: [place] are seen adjacent to the lowest 5 facet joints on the right. Please refer to the performing LIP's report. Professor Of Vegetable Science: ADAM Transcribe Date/Time: Aug 01 2017 3:20P Dictated by : ERIK ALCOCER MD This examination was interpreted and the report reviewed and electronically signed by: ERIK ALCOCER MD on Aug 01 2017 3:21PM EST [id number] OPERATIVE NO Observed: 08/01/2017 Status: COMPLETED Source: [place] 9:41 AM [facility] OTHER CAMPUS REPOSITORY O ID: [id number] Author: Fritz Mckeon Service: Pain Management Author Type: Physician Type: Operative Report Filed: 08/01/2017 9:43 AM Note Text: PATIENT NAME: Alyce Urrutia SERVICE DATE: 08/01/2017 PROCEDURE NOTE PREOPERATIVE DIAGNOSIS(ES) Lumbar Spondylosis Lumbar Degerative Disc Disease POSTOPERATIVE DIAGNOSIS(ES): Same OPERATION: Right L2,3,4,5.S1 Lumbar Facet Medial Branch Nerve Blockunder fluoroscopy. ANESTHESIA: versed 3mg IV INDICATIONS: Alyce Urrutia presents for lumbar facet (medial branch) injections. Since the last visit, the patient denies any new pain complaints and denies any focal neurological deficits. The plan is to proceed with diagnostic lumbar facet medial branch nerve block. The risks and benefits of the procedure were discussed. Specifically, the risks of bleeding, infection, inadvertent dural puncture, spinal heaches, vasovagal reaction, epidural hematoma, partial or permanent nerve injury were covered. The potential side effects of medications used in procedures including increase in lumbar pain, headaches, facial redness or warmth (flushing), anxiety or mood swings, sleeplessness, fever, high blood sugar, brief reduction in immunity were discussed. The patient expressed understanding of potential risks and wishes to proceed with the procedure. OPERATIVE PROCEDURE: The patient was brought to the operating room. The patient was placed in the prone position with routine monitors placed. The lower back was prepped in sterile fashion. Fluoroscopy was used to identify the location of the right L2, L3, L4, and L5 medial branch nerves at the junctions of the superior articular process and the transverse processes of L2, L3, L4, L5, and the sacral ala respectively. Skin anesthesia was achieved using 10 cc of Lidocaine 1% over the injection sites. A 22 gauge, 3 1/2 spinal needle was slowly inserted at each level using AP, lateral and oblique fluoroscopic imaging. Negative aspiration for blood or CSF was confirmed. A total of 5ml of a medication mixture of 5mg of Kenalog per 1ml of Marcaine 0.25% was injected. A total of 5 sites were injected in equal and divided doses. The needles were removed and bleeding was nil. A sterile dressing was applied. The patient tolerated the procedure well. The patient was taken to the recovery room in stable condition. EBL: nil Start time: 9:35 AM End time: 9:40 AM I was present the entire time and personally performed the procedure. SIGNATURE: Fritz Mckeon MD DATE: August 01, 2017 TIME: 9:42 AM HISTORY PHYSICAL Observed: 08/01/2017 Status: COMPLETED Source: [place] 9:11 AM [facility] OTHER CAMPUS REPOSITORY O ID: [id number] Author: Fritz Mckeon Service: Pain Management Author Type: Physician Type: HANDP Filed: 08/01/2017 9:12 AM Note Text: HISTORY AND PHYSICAL EXAMINATION PATIENT NAME: Alyce Urrutia DATE of SERVICE: 08/01/2017 Alyce Urrutia is here for the pain mangement procedure. The patient presents with persistent pain complaints. Alyce Urrutia denies any interval changes or new pain complaints or focal neurologic deficits. PAST MEDICAL HISTORY Diagnosis Date - Abdominal pain, epigastric - Abdominal pain, unspecified site - Acute gastritis without mention of hemorrhage - Anemia, unspecified - Asthma - Circumscribed scleroderma - Diverticulosis of colon (without mention of hemorrhage) - Essential hypertension, benign - Internal hemorrhoids without mention of complication - Irritable bowel syndrome - Kidney disease - Non morbid obesity 06/25/2015 - Osteoarthrosis, unspecified whether generalized or localized, other specified sites Osteoarthritis - Other diseases of lung, not elsewhere classified - PMH - PAST MEDICAL HISTORY OF leukopenia - Pure hypercholesterolemia - Snoring - Unspecified hypothyroidism PAST SURGICAL HISTORY Procedure Laterality Date - COLONOSCOP W/ OR W/O [facility] SPEC 11/28/07 - COLONOSCOP W/ OR W/O [facility] SPEC 10/06/14 Colonoscopy - DANDC, DIAG AND/OR THERAPEUTIC 10/10/2012 Dilation AND curettage w/ resection polyp - EGD W/O [facility] SPECIMEN W/BX 09/26/06 - KNEE SCOPE,DIAGNOSTIC 01/14 Arthroscopy, knee-RIGHT - PAST SURGICAL HISTORY OF 04/07/98 Minimal access right frontal craniotomy with biopsy and gross - PAST SURGICAL HISTORY OF spinal injection - TOTAL HIP REPLACEMENT Right 07/06/15 Hip replacement, total - TOTAL KNEE REPLACEMENT 06/12/2005 Knee replacement, total-right - TOTAL KNEE REPLACEMENT Left 06/27/2016 Knee replacement, total Social History Marital status: Spouse name: Dorothy Years of education: Number of children: 2 Occupational History Occupation Employer Comment [employer] Social History Main Topics Smoking status: Former Smoker Packs/day: 1.00 Years: 3.00 Types: Cigarettes Smokeless tobacco: Former User Comment: QUIT 50 YEARS AGO Alcohol use: Yes 1.0 oz/week Comment: occassional Drug use: No Sexual activity: Yes Partners with: Male FAMILY HISTORY Problem Relation Age of Onset - Arthritis Mother - Arthritis Father - None Brother ALLERGIES Allergen Reactions - Prednisone Shortness of Breath Pallor, chest pain, palpitations - Beef Containing Pro* Intolerance - Levaquin [Levofloxa* Other: See Comments sores in mouth/joint pain - Mirapex [Pramipexol* Intolerance Doesn't help leg cramps - Tramadol Intolerance Pt gets jittery - Valsartan-Hydrochlo* Other: See Comments Worsens nocturnal leg cramps. Patient can take valsartan alone with no issues Current Facility-Administered Medications: NaCl 0.9% iv infusion 30 mL/hr INTRAVENOUS CONTINUOUS Physical Exam: Performed in conjunction with observation. The patient is alert and oriented x3. The patient is in no acute distress. Neck: Supple. The range of motion is intact. Lungs: clear CVR: RRR. Extremities: no reported edema or erythema. Examination indicates no changes Impression: Lumbar facet arthropathy Plan: The informed consent has been obtained. The plan is to proceed with the procedure as planned. SIGNATURE: Fritz Mckeon MD DATE: August 01, 2017 TIME: 9:12 AM PT ED Observed: 08/01/2017 Status: COMPLETED Source: [place] 8:20 AM CL[facility]IC OTHER CAMPUS REPOSITORY O ID: [id number] Author: Radha GonzalezRn) AMI Matos Service: (none) Author Type: Registered Nurse Type: Patient Education Filed: 08/01/2017 8:20 AM Note Text: PRE OP LEARNING ASSESSMENT PROCEDURE/SURGERY: PAIN MANAGEMENT: L2 -L5, S1 injections READINESS TO LEARN COGNITIVE ABILITY: Alert and oriented MOTIVATION TO LEARN: Interested FAMILY SUPPORT: High - Very involved in pt care PATIENT LEARNS BEST BY: Verbal Instruction FACTORS AFFECTING LEARNING: None PHYSICAL LIMITATIONS AFFECTING LEARNING: Pain Electronically Signed By: Radha Matos RN In Department: [facility] SURGERY PROGRESS Observed: 07/11/2017 Status: COMPLETED Source: [place] 3:38 PM [facility] OTHER [place] REPOSITORY HNO ID: [id number] Author: Verna (Ct) JOS Santos Service: (none) Author Type: Clinical Charge Entry Type: Progress Notes Filed: 07/11/2017 3:39 PM Note Text: NAME:Alyce Urrutia DATE: July 11, 2017 CCF#: [id number] Pelvis X-Ray and Lower Extremity X-Ray(s): Knee, AP / Lat / Merchant Left and Wt. Bearing COMPLETED TECH ID SIGN: verna angelmandi CNOV Observed: 07/11/2017 Status: COMPLETED Source: [place] 2:00 PM [facility] [place] REPOSITORY Office Visit (ORMDNA) ALYCE URRUTIA ([id number]) 1940 F NFR Date Time Provider Department 07/11/17 2:00 PM DEYANIRA STOKES During your visit today, we recorded the following information about you: Blood pressure Weight Height 129/87 107.4 kg 1.676 m Deyanira Stokes MD 08/10/2017 8:34 PM Signed DEPARTMENT OF ORTHOPAEDICS CC: Follow-up visit after knee replacement HPI: Ms. Urrutia is here today for her 1 year clinical follow up status post left total knee replacement, right tka done in 2005 and right danielle done 06/2015. Since her last visit Ms. Urrutia conveys the interval has been complicated by left leg weakness. Pleased with outcome: No Pain? 0 and 8 on a scale of 1-10 Ambulatory support: cane Distance able to walk:< 15 minutes Stairs One step at a time Requires a handrail: Yes Able to kneel: No Able to arise from chair: Yes with difficulty Back issues: Yes Pain Medication: Tylenol for general aches REVIEW OF SYSTEMS: refer to [facility] report PAST MEDICAL HISTORY Diagnosis Date - Abdominal pain, epigastric - Abdominal pain, unspecified site - Acute gastritis without mention of hemorrhage - Anemia, unspecified - Asthma - Circumscribed scleroderma - Diverticulosis of colon (without mention of hemorrhage) - Essential hypertension, benign - Internal hemorrhoids without mention of complication - Irritable bowel syndrome - Kidney disease - Non morbid obesity 06/25/2015 - Osteoarthrosis, unspecified whether generalized or localized, other specified sites Osteoarthritis - Other diseases of lung, not elsewhere classified - PMH - PAST MEDICAL HISTORY OF leukopenia - Pure hypercholesterolemia - Snoring - Unspecified hypothyroidism PAST SURGICAL HISTORY Procedure Laterality Date - COLONOSCOP W/ OR W/O [facility] SPEC 11/28/07 - COLONOSCOP W/ OR W/O [facility] SPEC 10/06/14 Colonoscopy - DANDC, DIAG AND/OR THERAPEUTIC 10/10/2012 Dilation AND curettage w/ resection polyp - EGD W/O [facility] SPECIMEN W/BX 09/26/06 - KNEE SCOPE,DIAGNOSTIC 01/14 Arthroscopy, knee-RIGHT - PAST SURGICAL HISTORY OF 04/07/98 Minimal access right frontal craniotomy with biopsy and gross - PAST SURGICAL HISTORY OF spinal injection - TOTAL HIP REPLACEMENT Right 07/06/15 Hip replacement, total - TOTAL KNEE REPLACEMENT 06/12/2005 Knee replacement, total-right - TOTAL KNEE REPLACEMENT Left 06/27/2016 Knee replacement, total Current Outpatient Prescriptions: UBIQUINONE ORAL Take 100 mg by mouth once daily. Disp: Rfl: methylPREDNISolone (MEDROL, MONO,) 4 mg Dose-Pack As Instructed per package Disp: 1 Package Rfl: 0 tiZANidine (ZANAFLEX) 4 mg tablet Take 1 tablet by mouth twice daily as needed. Disp: 60 tablet Rfl: 1 meloxicam (MOBIC) 15 mg tablet Disp: Rfl: Omeprazole 40 mg capsule Disp: Rfl: chlordiazePOXIDE-clidinium (LIBRAX, WITH CLINIDIUM,) 5-2.5 mg per capsule Take 1 tablet by mouth DAILY. NEEDED WHEN PT EATS BEEF PRODUCTS Indications: FOR bEEF PRODUCTS EATEN Disp: Rfl: clotrimazole-betamethasone (LOTRISONE) cream Apply 1 application to affected area as needed (for rash). as needed for rash Disp: Rfl: Diclofenac Sodium (VOLTAREN) 1 % gel Apply 1 g to affected area three times daily as needed. Disp: 1 Tube Rfl: 1 QUININE, BULK, MISC 250 mg as needed. Disp: Rfl: amoxicillin (POLYMOX, AMOXIL) 500 mg capsule Take 4 capsules by mouth as directed. ONE HOUR PRIOR TO DENTAL WORK Disp: 4 capsule Rfl: 3 cholecalciferol, vitamin D3, 50,000 unit tab Take by mouth every Monday. Disp: Rfl: valsartan (DIOVAN) 160 mg tablet Take 160 mg by mouth once daily. Disp: Rfl: cyanocobalamin, Vitamin B12, 1,000 mcg/mL Soln Inject intramuscularly once every month. Disp: Rfl: amLODIPine (NORVASC) 5 mg tablet Take 5 mg by mouth once daily. Disp: Rfl: omeprazole 20 mg capsule Take 20 mg by mouth once daily. Disp: Rfl: LUTEIN 20 MG CAP Take one(1) tablet daily. Disp: Rfl: 0 SYNTHROID 150MCG TABLET Take one(1) tablet daily. Disp: Rfl: 0 gabapentin (NEURONTIN) 100 mg capsule Take 1 capsule by mouth three times daily for 30 days. Disp: 90 capsule Rfl: 2 oxyCODONE IR (ROXICODONE) 5 mg immediate release tablet Take 1 tablet by mouth every 8 hours as needed for Pain. (Patient not taking: Reported on 03/15/2017 ) Disp: 40 tablet Rfl: 0 enoxaparin (LOVENOX) 40 mg/0.4 mL syrg Inject 0.4 mL subcutaneously every 24 hours. (Patient not taking: Reported on 03/15/2017 ) Disp: 12 Syringe Rfl: 0 docusate sodium (COLACE) 100 mg capsule Take 1 capsule by mouth twice daily. Disp: 60 capsule Rfl: 0 polyethylene glycol 3350 (MIRALAX, GLYCOLAX) 17 gram packet Take 1 Packet by mouth once daily. (Patient not taking: Reported on 03/15/2017 ) Disp: 30 Packet Rfl: 0 ascorbic acid (VITAMIN C) 500 mg tablet Take 1 tablet by mouth twice daily with meals. (Patient not taking: Reported on 03/15/2017 ) Disp: 60 tablet Rfl: 0 No current facility-administered medications for this visit. ALLERGIES Allergen Reactions - Prednisone Shortness of Breath Pallor, chest pain, palpitations - Beef Containing Pro* Intolerance - Levaquin [Levofloxa* Other: See Comments sores in mouth/joint pain - Mirapex [Pramipexol* Intolerance Doesn't help leg cramps - Tramadol Intolerance Pt gets jittery - Valsartan-Hydrochlo* Other: See Comments Worsens nocturnal leg cramps. Patient can take valsartan alone with no issues FAMILY HISTORY Problem Relation Age of Onset - Arthritis Mother - Arthritis Father - None Brother Social History Substance Use Topics - Smoking status: Former Smoker Packs/day: 1.00 Years: 3.00 Types: Cigarettes - Smokeless tobacco: Former User Comment: QUIT 50 YEARS AGO - Alcohol use 1.0 oz/week Comment: occassional EXAMINATION: GENERAL:no apparent distress RESP:Unlabored with no shortness of breath CV: No extremity swelling, varices, edema, pallor, erythema Ms. Urrutia has mild difficulty arising out of a chair and has mild difficulty ambulating in the exam room. her gait was slow pace. LOWER EXTREMITIES: On the exam table seated and supine, hip range of motion bilaterally was symmetric, unrestricted and non-painful. No trochanteric pain to palpation. Straight leg raise and femoral nerve stretch tests were negative for acute radicular symptoms to suggest spine problems. Examination of the right knee reveals Single previous incisions and has no erythema, warmth or tenderness. Range of motion is 0 degrees in extension and 120 degrees of flexion actively. No varus-valgus instability with patella tracking midline. No patellofemoral crepitus. Examination of the left knee reveals Single previous incisions and has no erythema, warmth or tenderness. Range of motion is 0 degrees in extension and 125 degrees of flexion actively. No varus-valgus instability with patella tracking midline. No patellofemoral crepitus. Both lower extremities were neurovascularly intact, has no evidence of cellulitis, and has no distal swelling. X-RAYS: left Triathlon posterior stabilized total knee showing good component sizing, position, and alignment. The patella tracks midline. Radiographic review has no findings of loosening, has no findings of wear, and has no other complicating process. ASSESSMENT: S/P total knee arthroplasty and significantly improved from pre-operative state PLAN: Continue with activities as tolerated Follow up will be in 4 years.. If there are any questions or problems, patient instructed to call the office. Rx Drug Management: No prescription given at today's appointment. Deyanira Stokes Referring Provider: DEYANIRA STOKES [[id number]] Allergies As of Date: 07/11/2017 Noted Allergy Reaction PREDNISONE 04/26/2012 12 - Shortness of Breath Comments: Pallor, chest pain, palpitations BEEF CONTAINING PRODUCTS 08/26/2014 5 - Intolerance LEVAQUIN (LEVOFLOXACIN) 08/28/2007 14 - Other: See Comments Comments: sores in mouth/joint pain MIRAPEX (PRAMIPEXOLE) 04/26/2012 5 - Intolerance Comments: Doesn't help leg cramps TRAMADOL 12/23/2014 5 - Intolerance Comments: Pt gets jittery VALSARTAN-HYDROCHLOROTHIAZIDE 04/26/2012 14 - Other: See Comments Comments: Worsens nocturnal leg cramps. Patient can take valsartan alone with no issues Date Reviewed: 07/11/2017 Reviewed by: Latoya Celeste Ma - Fully Assessed Reason for Visit: right total knee [Other] Cmt: 1 year follow up 06/27/16.left knee. Unable to turn over in bed using that knee for 4 months. aches. Primary Visit Diagnosis:S/P total knee replacement using cement, left [Z96.652] Other Visit Diagnosis:Lumbar degenerative disc disease [M51.36] Prescriptions as of 07/11/2017 Sig: UBIQUINONE ORAL Take 100 mg by mouth once ky* X METHYLPREDNISOLONE 4 MG TABLE* As Instructed per package TIZANIDINE 4 MG TABLET Take 1 tablet by mouth twice * MELOXICAM 15 MG TABLET X OMEPRAZOLE 40 MG CAPSULE,EMILIANO* CHLORDIAZEPOXIDE-CLIDINIUM 5 * Take 1 tablet by mouth DAILY.* CLOTRIMAZOLE-BETAMETHASONE 1 * Apply 1 application to affect* DICLOFENAC 1 % TOPICAL GEL Apply 1 g to affected area th* QUININE (BULK) MISC 250 mg as needed. AMOXICILLIN 500 MG CAPSULE Take 4 capsules by mouth as d* CHOLECALCIFEROL (VITAMIN D3) * Take by mouth every Monday. VALSARTAN 160 MG TABLET Take 160 mg by mouth once ky* CYANOCOBALAMIN (VIT B-12) 1,0* Inject intramuscularly once * AMLODIPINE 5 MG TABLET Take 5 mg by mouth once daily. OMEPRAZOLE 20 MG CAPSULE,EMILIANO* Take 20 mg by mouth once patricia* * LUTEIN 20 MG CAPSULE Take one(1) tablet daily. * SYNTHROID 150 MCG TABLET Take one(1) tablet daily. GABAPENTIN 100 MG CAPSULE Take 1 capsule by mouth three* X OXYCODONE 5 MG TABLET Take 1 tablet by mouth every * Patient not taking: Reported on 03/15/2017 X ENOXAPARIN 40 MG/0.4 ML SUBCU* Inject 0.4 mL subcutaneously * Patient not taking: Reported on 03/15/2017 X DOCUSATE SODIUM 100 MG CAPSULE Take 1 capsule by mouth twice* X POLYETHYLENE GLYCOL 3350 17 G* Take 1 Packet by mouth once d* Patient not taking: Reported on 03/15/2017 X ASCORBIC ACID (VITAMIN C) 500* Take 1 tablet by mouth twice * Patient not taking: Reported on 03/15/2017 Problem List As Of Date 07/11/2017 Noted Resolved BENIGN HYPERTENSION [I10] Hypothyroidism [E03.9] OA (osteoarthritis) [M19.90] More... PAIN IN LIMB [M79.609] BENIGN BETTIE CEREBR MENINGES [D32.0] INVALID FOR* OA (Osteoarthritis) of Knee [M17.10] INVALID FOR* Endometrial mass [N94.89] INVALID FOR*10/29/2012 Lumbar spondylosis [M47.816] INVALID FOR* DDD (degenerative disc disease), lumbar [M51.36]INVALID FOR* GERD (gastroesophageal reflux disease) [K21.9] INVALID FOR* Asthma [J45.909] INVALID FOR* Anemia [D64.9] INVALID FOR* CKD (chronic kidney disease) [N18.9] INVALID FOR* Cervical spondylosis without myelopathy [M47.81*INVALID FOR* Acute neck pain [M54.2] INVALID FOR* Bilateral occipital neuralgia [M54.81] INVALID FOR* Cervical strain [S16.1XXA] INVALID FOR* Non morbid obesity [E66.9] INVALID FOR* H/O total hip arthroplasty [Z96.649] INVALID FOR* Altered gait [R26.9] INVALID FOR* Weakness of right hip [R29.898] INVALID FOR* Chronic pain of left knee [M25.562, G89.29] INVALID FOR* Iron deficiency anemia, unspecified [D50.9] INVALID FOR* 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.9] INVALID FOR* Status post knee replacement [Z96.659] INVALID FOR* Weakness of both lower extremities [R29.898] INVALID FOR* Chronic bilateral low back pain without sciatic*INVALID FOR* Degenerative disc disease, lumbar [M51.36] INVALID FOR* Lumbar facet joint pain [M54.5] INVALID FOR* Encounter Status:Closed by DEYANIRA STOKES MD on 08/10/17 PROGRESS Observed: 07/11/2017 Status: COMPLETED Source: [place] 1:50 PM [facility] [place] REPOSITORY HNO ID: [id number] Author: Deyanira Stokes Service: (none) Author Type: Physician Type: Progress Notes Filed: 08/10/2017 8:34 PM Note Text: DEPARTMENT OF ORTHOPAEDICS CC: Follow-up visit after knee replacement HPI: Ms. Urrutia is here today for her 1 year clinical follow up status post left total knee replacement, right tka done in 2005 and right danielle done 06/2015. Since her last visit Ms. Urrutia conveys the interval has been complicated by left leg weakness. Pleased with outcome: No Pain? 0 and 8 on a scale of 1-10 Ambulatory support: cane Distance able to walk:< 15 minutes Stairs One step at a time Requires a handrail: Yes Able to kneel: No Able to arise from chair: Yes with difficulty Back issues: Yes Pain Medication: Tylenol for general aches REVIEW OF SYSTEMS: refer to [facility] report PAST MEDICAL HISTORY Diagnosis Date - Abdominal pain, epigastric - Abdominal pain, unspecified site - Acute gastritis without mention of hemorrhage - Anemia, unspecified - Asthma - Circumscribed scleroderma - Diverticulosis of colon (without mention of hemorrhage) - Essential hypertension, benign - Internal hemorrhoids without mention of complication - Irritable bowel syndrome - Kidney disease - Non morbid obesity 06/25/2015 - Osteoarthrosis, unspecified whether generalized or localized, other specified sites Osteoarthritis - Other diseases of lung, not elsewhere classified - PMH - PAST MEDICAL HISTORY OF leukopenia - Pure hypercholesterolemia - Snoring - Unspecified hypothyroidism PAST SURGICAL HISTORY Procedure Laterality Date - COLONOSCOP W/ OR W/O [facility] SPEC 11/28/07 - COLONOSCOP W/ OR W/O [facility] SPEC 10/06/14 Colonoscopy - DANDC, DIAG AND/OR THERAPEUTIC 10/10/2012 Dilation AND curettage w/ resection polyp - EGD W/O [facility] SPECIMEN W/BX 09/26/06 - KNEE SCOPE,DIAGNOSTIC 01/14 Arthroscopy, knee-RIGHT - PAST SURGICAL HISTORY OF 04/07/98 Minimal access right frontal craniotomy with biopsy and gross - PAST SURGICAL HISTORY OF spinal injection - TOTAL HIP REPLACEMENT Right 07/06/15 Hip replacement, total - TOTAL KNEE REPLACEMENT 06/12/2005 Knee replacement, total-right - TOTAL KNEE REPLACEMENT Left 06/27/2016 Knee replacement, total Current Outpatient Prescriptions: UBIQUINONE ORAL Take 100 mg by mouth once daily. Disp: Rfl: methylPREDNISolone (MEDROL, MONO,) 4 mg Dose-Pack As Instructed per package Disp: 1 Package Rfl: 0 tiZANidine (ZANAFLEX) 4 mg tablet Take 1 tablet by mouth twice daily as needed. Disp: 60 tablet Rfl: 1 meloxicam (MOBIC) 15 mg tablet Disp: Rfl: Omeprazole 40 mg capsule Disp: Rfl: chlordiazePOXIDE-clidinium (LIBRAX, WITH CLINIDIUM,) 5-2.5 mg per capsule Take 1 tablet by mouth DAILY. NEEDED WHEN PT EATS BEEF PRODUCTS Indications: FOR bEEF PRODUCTS EATEN Disp: Rfl: clotrimazole-betamethasone (LOTRISONE) cream Apply 1 application to affected area as needed (for rash). as needed for rash Disp: Rfl: Diclofenac Sodium (VOLTAREN) 1 % gel Apply 1 g to affected area three times daily as needed. Disp: 1 Tube Rfl: 1 QUININE, BULK, MISC 250 mg as needed. Disp: Rfl: amoxicillin (POLYMOX, AMOXIL) 500 mg capsule Take 4 capsules by mouth as directed. ONE HOUR PRIOR TO DENTAL WORK Disp: 4 capsule Rfl: 3 cholecalciferol, vitamin D3, 50,000 unit tab Take by mouth every Monday. Disp: Rfl: valsartan (DIOVAN) 160 mg tablet Take 160 mg by mouth once daily. Disp: Rfl: cyanocobalamin, Vitamin B12, 1,000 mcg/mL Soln Inject intramuscularly once every month. Disp: Rfl: amLODIPine (NORVASC) 5 mg tablet Take 5 mg by mouth once daily. Disp: Rfl: omeprazole 20 mg capsule Take 20 mg by mouth once daily. Disp: Rfl: LUTEIN 20 MG CAP Take one(1) tablet daily. Disp: Rfl: 0 SYNTHROID 150MCG TABLET Take one(1) tablet daily. Disp: Rfl: 0 gabapentin (NEURONTIN) 100 mg capsule Take 1 capsule by mouth three times daily for 30 days. Disp: 90 capsule Rfl: 2 oxyCODONE IR (ROXICODONE) 5 mg immediate release tablet Take 1 tablet by mouth every 8 hours as needed for Pain. (Patient not taking: Reported on 03/15/2017 ) Disp: 40 tablet Rfl: 0 enoxaparin (LOVENOX) 40 mg/0.4 mL syrg Inject 0.4 mL subcutaneously every 24 hours. (Patient not taking: Reported on 03/15/2017 ) Disp: 12 Syringe Rfl: 0 docusate sodium (COLACE) 100 mg capsule Take 1 capsule by mouth twice daily. Disp: 60 capsule Rfl: 0 polyethylene glycol 3350 (MIRALAX, GLYCOLAX) 17 gram packet Take 1 Packet by mouth once daily. (Patient not taking: Reported on 03/15/2017 ) Disp: 30 Packet Rfl: 0 ascorbic acid (VITAMIN C) 500 mg tablet Take 1 tablet by mouth twice daily with meals. (Patient not taking: Reported on 03/15/2017 ) Disp: 60 tablet Rfl: 0 No current facility-administered medications for this visit. ALLERGIES Allergen Reactions - Prednisone Shortness of Breath Pallor, chest pain, palpitations - Beef Containing Pro* Intolerance - Levaquin [Levofloxa* Other: See Comments sores in mouth/joint pain - Mirapex [Pramipexol* Intolerance Doesn't help leg cramps - Tramadol Intolerance Pt gets jittery - Valsartan-Hydrochlo* Other: See Comments Worsens nocturnal leg cramps. Patient can take valsartan alone with no issues FAMILY HISTORY Problem Relation Age of Onset - Arthritis Mother - Arthritis Father - None Brother Social History Substance Use Topics - Smoking status: Former Smoker Packs/day: 1.00 Years: 3.00 Types: Cigarettes - Smokeless tobacco: Former User Comment: QUIT 50 YEARS AGO - Alcohol use 1.0 oz/week Comment: occassional EXAMINATION: GENERAL:no apparent distress RESP:Unlabored with no shortness of breath CV: No extremity swelling, varices, edema, pallor, erythema Ms. Urrutia has mild difficulty arising out of a chair and has mild difficulty ambulating in the exam room. her gait was slow pace. LOWER EXTREMITIES: On the exam table seated and supine, hip range of motion bilaterally was symmetric, unrestricted and non-painful. No trochanteric pain to palpation. Straight leg raise and femoral nerve stretch tests were negative for acute radicular symptoms to suggest spine problems. Examination of the right knee reveals Single previous incisions and has no erythema, warmth or tenderness. Range of motion is 0 degrees in extension and 120 degrees of flexion actively. No varus-valgus instability with patella tracking midline. No patellofemoral crepitus. Examination of the left knee reveals Single previous incisions and has no erythema, warmth or tenderness. Range of motion is 0 degrees in extension and 125 degrees of flexion actively. No varus-valgus instability with patella tracking midline. No patellofemoral crepitus. Both lower extremities were neurovascularly intact, has no evidence of cellulitis, and has no distal swelling. X-RAYS: left Triathlon posterior stabilized total knee showing good component sizing, position, and alignment. The patella tracks midline. Radiographic review has no findings of loosening, has no findings of wear, and has no other complicating process. ASSESSMENT: S/P total knee arthroplasty and significantly improved from pre-operative state PLAN: Continue with activities as tolerated Follow up will be in 4 years.. If there are any questions or problems, patient instructed to call the office. Rx Drug Management: No prescription given at today's appointment. Deyanira Stokes XR PELVIS 1V AP Observed: 07/11/2017 Status: F Source: [place] 1:28 PM CLINIC OTHER CAMPUS REPOSITORY * * *Final Report* * * DATE OF EXAM: Jul 11 2017 1:28PM MARTÍNEZ 5239 - XR PELVIS 1V AP / PROCEDURE REASON: [id number], unspecified * * * * Physician Interpretation * * * * PROCEDURE: Left knee, pelvis INDICATION: Pain, unspecified . TECHNIQUE: XR KNEE 3V AP/LAT/CORONAT LT, XR PELVIS 1V AP COMPARISON: 01/06/2017 and 07/26/2016 FINDINGS: Left knee: The total knee arthroplasty remains in satisfactory position without evidence for loosening. No fracture or joint effusion is seen. Right total knee arthroplasty appears satisfactory on the AP image. Pelvis: The right total hip arthroplasty remains in satisfactory position without evidence for loosening. Mild/moderate left hip joint space narrowing is stable. No fracture is seen. 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: [employer] Transcribe Date/Time: Jul 11 2017 2:37P Dictated by : ERIK ALCOCER MD This examination was interpreted and the report reviewed and electronically signed by: ERIK ALCOCER MD on Jul 11 2017 2:38PM EST [id number] XR KNEE 3V AP/LAT/MERCHANT Observed: 07/11/2017 Status: F Source: [facility] 1:28 PM CLINIC OTHER CAMPUS REPOSITORY * * *Final Report* * * DATE OF EXAM: Jul 11 2017 1:28PM MARTÍNEZ 5208 - XR KNEE 3V AP/LAT/MERCHANT LT / PROCEDURE REASON: [id number], unspecified * * * * Physician Interpretation * * * * PROCEDURE: Left knee, pelvis INDICATION: Pain, unspecified . TECHNIQUE: XR KNEE 3V AP/LAT/MERCHANT LT, XR PELVIS 1V AP COMPARISON: 01/06/2017 and 07/26/2016 FINDINGS: Left knee: The total knee arthroplasty remains in satisfactory position without evidence for loosening. No fracture or joint effusion is seen. Right total knee arthroplasty appears satisfactory on the AP image. Pelvis: The right total hip arthroplasty remains in satisfactory position without evidence for loosening. Mild/moderate left hip joint space narrowing is stable. No fracture is seen. 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: [facility] Transcribe Date/Time: Jul 11 2017 2:37P Dictated by : ERIK ALCOCER MD This examination was interpreted and the report reviewed and electronically signed by: ERIK ALCOCER MD on Jul 11 2017 2:38PM EST [id number] ALLERGIES ALLERGIES DATE TYPE / NAME / CODE REACTION SEVERITY SOURCE CODE 04/14/2016 Drug pramipexole Unknown Unknown Ider Allergy/41 di-HCl/[id number]( [facility]ly [facility] [id number] 04/14/2016 Drug Beef Containing Other Unknown Ider Allergy/41 Products/[id number] Formerly [facility] [id number][facility] 04/14/2016 Drug prednisone/[id number] Chest tightness Unknown Ider Allergy/41 164(RXNORM) [facility]ly [facility] [id number]([facility]) Repository 04/14/2016 Drug tramadol/[id number] Other Unknown Wendy Allergy/41 0(RXNORM) Community [id number]([facility] O[facility]) Repository 04/14/2016 Drug valsartan/[id number] Pain in joints Unknown Ider Allergy/41 79(RXNORM) Community [id number]([facility] OMED [facility]) Repository 04/14/2016 Drug levofloxacin/F0060 Mucosal lesions Unknown Wendy Allergy/41 52816(RXNORM) Community [id number]([facility] OMED [facility]) Repository 12/23/2014 [facility] [place] [id number]( Repository OMED CT) 08/26/2014 Drug BEEF CONTAINING INTOLERANCE [facility] Class/4195 PRODUCTS Other [place] [address](SNOM Repository ED CT) 04/26/2012 DRUG PREDNISONE SHORTNESS OF High [facility]41 Other [place] [id number]( Repository OMED CT) 04/26/2012 DRUG PRAMIPEXOLE INTOLERANCE [place] [address] Other [place] [id number]( Repository OMED CT) 04/26/2012 DRUG/29354 VALSARTAN-HYDROCHL OTHER: SEE C [facility] 1003(SNOME OROTHIAZIDE Other [place] D CT) Repository 08/28/2007 DRUG LEVOFLOXACIN OTHER: SEE C [place] [address] Other [place] [id number]( Repository OMED CT) ENCOUNTERS ENCOUNTERS ADMIT/DISCHARGE ACCOUNT ADMITTING ENCOUNTER LOCATION SOURCE NUMBER CLASS 03/28/2018 [id number] Ambulatory [facility] ing:RAD Repository 01/11/2018 [id number] Ambulatory [facility] ing:US Repository 11/23/2017/11/24/19 [id number] [facility] Ambulatory [address] Other [place] Repository 10/10/2017/10/11/19 [id number] FRIT[facility] Ambulatory [address] Other [place] Repository 10/02/2017 [id number] Ambulatory [facility] ing:OPBI Repository 10/02/2017 [id number] Ambulatory [facility] ing:[facility] Repository 09/14/2017/09/15/19 [id number] Ambulatory [address] Repository 08/01/2017/08/02/19 [id number] FRITZ [facility]KE[facility] Ambulatory [address] Repository 07/11/2017/08/15/[id number] Repository 07/11/2017/07/12/[id number] Repository PAYERS PAYERS ENCOUNTER GUARANTOR PAYER SUBSCRIBER SOURCE 03/28/2018 ALYCE J Primary ALYCE J Wendy [id number] Insurance:AETNA [facility]OB[facility]: [id number] Repository [address]Dln: [phone]) Date:3199-67-33FL [phone] () [id number] [address]SH: 03/28/2018 Secondary NOT GIVENUNK Wendy Insurance:SELF PAY [facility] Number: Effective Repository Date:2018-03-26 01/11/2018 ALYCE J Primary ALYCE J Ider [id number] Insurance:AETNA [facility]OB[facility] Number: [id number] [address]TZEffective Repository [address]Pax: [phone]) Date:8943-49-34VU [phone] (HP) [id number] [address]PW: 01/11/2018 Secondary NOT GIVENUNK Ider Insurance:SELF PAY [facility] Number: Effective Repository Date:2018-01-02 10/02/2017 Alyce J Primary Alyce J Wendy [id number] Insurance:AETNA ObrienDOB: [facility] [place] Number: [id number] Repository [address]Ssm: [phone]) Date:3495-84-64MM [phone] (HP) [address] [address]DD: 10/02/2017 Secondary NOT GIVENUNK Ider Insurance:SELF PAY [facility] Number: Effective Repository Date:2017-08-28 10/02/2017 Alyce Delvalle Primary NOT GIVENUNK Wendy [id number] Insurance:SELF PAY [facility] lloyd Santamaria Number: Effective Repository [id number]: [phone] Date:2017-08-28 [phone] ()
== END ==
PROVIDERS: Family Provider Internal Medicine; PCP Internal Medicine; Referring Provider Otolaryngology Otolaryngology/Facial Plastic Surgery; Visit Provider Otolaryngology Otolaryngology/Facial Plastic Surgery
DX: R13.10 Dysphagia, unspecified (principal)
CPT/HCPCS: 74220

== ENCOUNTER → 2018-06-26 11:29 | Outpatient (CLI) | payer MEDICARE, SELFPAY ==
--- NOTE | 2018-06-26 11:33 | US_ITS ---
STUDY: RENAL ULTRASOUND - COMPLETE REASON FOR EXAM: Female, 77 years old. Right flank pain TECHNIQUE: Ultrasound evaluation of the kidneys was performed with real-time and static cho-scale imaging. COMPARISON: January 11, 2018 FINDINGS: RIGHT KIDNEY: Normal location of the right kidney, which is normal in size. The right kidney measures 10.4 x 5.8 x 4.1 cm. There is a normal cortex of the right kidney. The renal cortex measures 1 cm. There are multiple cysts the largest measuring 2.2 x 1.7 x 1.2 cm and 1.7 x 1.4 x 1.1 cm. There are no right renal calculi. There is no right hydronephrosis. DISTAL RIGHT URETER: There is non-visualization of the distal right ureter. There is no demonstrated right ureterovesical junction calculus. There is a visualized right ureteral jet. LEFT KIDNEY: Normal location of the left kidney, which is normal in size. The left kidney measures 10.4 x 5.3 x 4.6 cm. There is a normal cortex of the left kidney. The renal cortex measures 1.3 cm. There is a cyst measuring 1.1 x 0.8 x 0.9 cm.. There are no left renal calculi. There is no left hydronephrosis. DISTAL LEFT URETER: There is non-visualization of the distal left ureter. There is no demonstrated left ureterovesical junction calculus. There is a visualized left ureteral jet. Diffusely increased cortical echoes consistent with chronic renal parenchymal disease BLADDER: The distended urinary bladder has a volume of 18.27 ml.. There is a normal wall thickness of the distended urinary bladder. There is no demonstrated mass within the urinary bladder. There are no demonstrated bladder calculi. US/Kidney and Bladder IMPRESSION: Nonspecific renal parenchymal disease. Multiple bilateral renal cysts. No evidence for hydronephrosis Electronically Signed: Santos Wahl MD at 20:12 EDT , Service support ,
--- NOTE | 2018-06-26 12:38 | BD_ITS ---
STUDY: DUAL ENERGY X-RAY ABSORPTIOMETRY / DXA REASON FOR EXAM: Female, 77 years old. The patient is postmenopausal. Loss of height. TECHNIQUE: Bone Mineral Density (BMD) measurements of lumbar spine and left hip were obtained. COMPARISON: Comparison is made with prior study dated February 01, 2011. FINDINGS: Lumbar Spine (L1-L4): g/cm2 (1.172) / T-score (0.1) / Z-score (1.8) Findings are suggestive of normal bone density with a low fracture risk. Left Femur Total: g/cm2 (0.787) / T-score (-1.7) / Z-score (0.0) Left Femoral Neck: g/cm2 (0.839) / T-score (-1.4) / Z-score (0.5) The T-Scores on the most recent prior examination were: Lumbar Spine (L1-L4): There has been improvement of bone density since the previous examination. Left Femur Total: which represents an improvement of 0.5%. BD/Dexa Bone Density Study IMPRESSION: The patient is considered osteopenic as outlined below according to World Rohan Organization (WHO) criteria with a moderate fracture risk. There has been improvement of bone density since the previous examination. Reference Information: The T-score is the number of standard deviations above or below the standard which is normal for young adults at their peak bone mineral density. The World Health Organization (WHO) interprets the T-scores as follows: Above -1 Normal bone density Between -1 and -2.5 Osteopenia Equal to / or below -2.5 Osteoporosis As a practical clinical guideline, osteopenia may be graded as follows: Mild -1 through -1.5 Moderate -1.6 through -2.0 Severe -2.1 through -2.4 The Z-score is the number of standard deviations above or below age-matched controls. A Z-score of less than -1.5 would be considered abnormal. References: 1. NIH Osteoporosis and Related Bone Diseases http://www.osteo.org 2. International Society for Clinical Densitometry http://www.iscd.org 3. National Osteoporosis Foundation http://www.nof.org Electronically Signed: Dashawn Rowe, at 8:28 EDT , Service support ,
== END ==
PROVIDERS: Family Provider Internal Medicine; PCP Internal Medicine; Referring Provider Internal Medicine; Visit Provider Internal Medicine
DX: R10.9 Unspecified abdominal pain (principal); M19.90 Unspecified osteoarthritis, unspecified site; Z78.0 Asymptomatic menopausal state
CPT/HCPCS: 76770; 77080

== ENCOUNTER 2018-10-04 13:40 | Emergency (ER) | payer MEDICARE, SELFPAY ==
[2018-10-04] VITALS (8 sets, daily range): BP systolic 122–158; BP diastolic 70–98; PULSE 62–97; RESP 11–18; TEMP 36.4; O2SAT 93–100; BMI 34.4
[2018-10-04] MEDS: Morphine 4 MG/ML Syringe IV (13:59)
--- NOTE | 2018-10-04 13:59 | ED.VIS.UPPEX ---
History of Present Illness Chief Complaint: Upper Extremity Injury Informant: Patient Occurred: Today Mechanism/Context: Fall Current Severity: Mild Maximum Severity: Moderate Worsened by: Attempt to use left upper extremity Relieved by: Holding/supporting her left wrist/forearm Associated Symptoms: Negative for: Parasthesia, Weakness, Loss of Funtion Narrative: Patient is a 77-year-old knnwp-cfvm-[id number] woman who tripped on raised concrete. She landed with her left upper extremity outstretched. She presents with obvious deformity to the left breast. Nurse was concerned she has an open fracture. She has an abrasion distal ulnar left forearm. There is no puncture wound or laceration. There is obvious deformity of the wrist. - Past Medical History (1) Acquired hypothyroidism Status: Chronic (2) Benign essential hypertension Status: Chronic (3) History of gastroesophageal reflux (GERD) Status: Chronic Past Medical History - Allergies and Home Meds Allergies/Adverse Reactions: Allergies Beef Containing Products Adverse Reaction (Verified 10/04/18 13:41) Other hydrochlorothiazide [From Diovan HCT] Adverse Reaction (Verified 10/04/18 13:44) Other levofloxacin [From Levaquin] Adverse Reaction (Verified 10/04/18 13:41) Mucosal lesions pramipexole di-HCl [From Mirapex] Adverse Reaction (Verified 10/04/18 13:41) Unknown prednisone Adverse Reaction (Verified 10/04/18 13:41) Chest tightness tramadol Adverse Reaction (Verified 10/04/18 13:41) Other valsartan [From Diovan HCT] Adverse Reaction (Verified 10/04/18 13:44) Other Primary Care Physician: Kristine Moncada DO [Primary Care Provider] - Lives: Spouse/ Significant Other Smoking Status: Never smoker Alcohol: None Drugs: None Review of Systems General: Denies: Chills, Fever, Sweats Eyes: Denies: Visual changes - bilaterally, Blurred Vision - bilaterally Cardiovascular: Denies: Chest pain, Palpitations, Heart racing Respiratory: Denies: Dyspnea, Cough, Dyspnea on exertion Gastrointestinal: Denies: Nausea, Vomiting Genitourinary: Denies: Dysuria, Hematuria, Frequency Musculoskeletal: Reports: Swelling, Extremity Pain. Denies: Myalgias, Arthralgias, Neck pain, Back pain Skin: Reports: Abrasions. Denies: Rash, Abscess, Wounds, -, - Neurological: Denies: Headache, Weakness, Parasthesia, Numbness Hematologic: Denies: Easy bruising, Easy bleeding Allergy: Denies: Uticaria, Swelling of the mouth Physical Exam Vital Signs/Narrative: Vital Signs Temp Pulse Resp BP Pulse Ox 10/04/18 13:41 97.5 F L 65 16 122/70 H 93 Inital Vital Signs reviewed: Yes General: Well nourished, Well developed, - - There is no pain to palpation over the phalanges. There is no pain the patient over the metacarpal bones. There is no palpation of the lateral medial epicondyle pain is no pain the patient with olecranon process. No pain the patient of the proximal humerus. There is no elevation of the clavicle. Median, radial and ulnar function intact. Head: Normocephalic, Atraumatic Eyes: Perrl, EOMI. Negative for: Pale conjunctiva, Scleral icterus, - ENT: No Trauma, Moist Mucous Membranes Neck: Nontender, Full ROM Cardiovascular: Regular rate, Regular rhythm, No murmurs, Normal S1, Normal S2 Respiratory: No distress, CTA bilaterally, Chest nontender Skin: Normal color, Trauma - Rasion distal left forearm ulnar side Neurological: Alert, Oriented x3, Cranial nerves II-XII grossly intact, Normal Strength, Normal Sensation Psychological: Normal affect Diagnostic/Tx/Re-eval Chest X-Ray - ED: 2 View, Read by ED Physician Three-view x-ray was obtained. Three-view was ordered. X-ray reveals a transverse distal radial fracture with banded apposition. - Medical Decision Making IV was established. Patient was made n.p.o. Patient was medicated for her discomfort. X-ray was obtained to determine if patient has fracture versus dislocation versus both. Patient with distal transverse extra-articular distal radial fracture with pain at apposition. Orthopedics was consulted to assist with reduction. Was discussed with Dr. Bell. He apparently is unavailable until 1629. He requested radiology have C arm available, Ortho cart in the room and patient consented for sedation. Care was transferred to Dr. Harris. Patient was consented for deep sedation with propofol. She denies allergy to soy products or egg products. She is had no prior complication. She was given opportunity ask questions none were asked. She understands that Dr. Nicholson will not be available until 1629. ED Disposition - Plan for ED Patient: Disposition: Home or Assisted Living Diagnosis: Displaced fracture of left radius Instructions: RADIUS AND ULNA FX, Reduction Required Prescriptions: Oxycodone HCl/Acetaminophen [Percocet 5/325] 1 tab PO Q6H PRN PRN 5 Days #20 tab PRN Reason: Wrist pain Prescription Printed Referrals: Kristine Moncada DO [Primary Care Provider] -
[2018-10-04] MEDS: Ondansetron 4 MG/2 ML Vial IV (14:00)
--- NOTE | 2018-10-04 14:10 | RAD_ITS ---
STUDY: X-RAY - LEFT WRIST REASON FOR EXAM: Pain and deformity after a fall. TECHNIQUE: 2 view(s) of the wrist were obtained. COMPARISON: None. FINDINGS: There is osteopenia. There is a distal radial fracture with comminution and dorsal and radial dislocation a bone width with foreshortening. Normal carpal bones. Normal carpal articulations. There is joint space narrowing of the carpometacarpal articulation of the thumb. Normal second through fifth carpometacarpal articulations. Normal visualized metacarpal bones. There is soft tissue swelling. RAD/Wrist min 3 Views IMPRESSION: Displaced fracture of the distal radius. Electronically Signed: Jessee Oliva MD at 14:30 EDT Tel , Service support ,
[2018-10-04] MEDS: HYDROmorphone 0.5 MG/0.5 ML SYRINGE IV (15:01)
[2018-10-04] MEDS: Propofol 200 MG/20 ML Vial IV BOLUS (16:08)
--- NOTE | 2018-10-04 16:29 | CON.PCM_ITS ---
Reason for Consult Date of Consultation: 10/04/18 Reason for Consultation: Left distal radius deformity. Requested by Dr. Quezada History of Present Illness: The patient is a 77 year old F with morbid obesity presents today after a fall on concrete. She tripped over a raised concrete and had a mechanical fall. She is right-handed. After her fall she had a noted deformity of the left wrist and severe pain. Pain was 10 out of 10. Is made better with pain medications in the emergency department immobilization. It is made worse with motion. Patient notes that after the injury she did have numbness and tingling throughout the hand which continues to resolve at this time. She does have an abrasion over the ulnar head however there is no open wound there are no active bleeding at this time. It is a dull achy pain with throbbing. Past Medical History Past Medical History (Chronic Problems): Chronic Problems Obesity (Chronic) History of gastroesophageal reflux (GERD) (Chronic) Benign essential hypertension (Chronic) Acquired hypothyroidism (Chronic) Allergies Beef Containing Products Adverse Reaction (Verified 10/04/18 13:41) Other hydrochlorothiazide [From Diovan HCT] Adverse Reaction (Verified 10/04/18 13:44) Other levofloxacin [From Levaquin] Adverse Reaction (Verified 10/04/18 13:41) Mucosal lesions pramipexole di-HCl [From Mirapex] Adverse Reaction (Verified 10/04/18 13:41) Unknown prednisone Adverse Reaction (Verified 10/04/18 13:41) Chest tightness tramadol Adverse Reaction (Verified 10/04/18 13:41) Other valsartan [From Diovan HCT] Adverse Reaction (Verified 10/04/18 13:44) Other Home Medications: Ambulatory Orders Medication Instructions Recorded Amlodipine [Norvasc] 5 mg PO DAILY 12/23/14 Levothyroxine [Synthroid] 150 mcg PO DAILY 12/23/14 Omeprazole [Prilosec] 20 mg PO DAILY 12/23/14 Valsartan [Diovan] 160 mg PO DAILY 12/23/14 Clidinium/Chlordiazepoxide [Librax] 2.5 - 5 mg PO PRN PRN 12/27/14 Ergocalciferol [Vitamin D] 50,000 unit PO Q7D 12/27/14 Levothyroxine [Synthroid] 300 mcg PO FAM 12/27/14 Lutein 20 mg PO DAILY 12/27/14 Ubiquinol 100 mg PO DAILY 12/27/14 Diclofenac Sodium [Voltaren] 0 gm TOPICAL PRN PRN 04/14/16 Quinine Sulfate [Qualaquin] 250 mg PO PRN PRN 04/14/16 Tizanidine HCl [Zanaflex] 4 mg PO DAILY 04/14/16 Cyanocobalamin [Vitamin B12] 500 mcg PO QODAY 10/04/18 Meloxicam [Mobic] 15 mg PO DAILY 10/04/18 Oxycodone HCl/Acetaminophen 1 tab PO Q6H PRN PRN 5 Days #20 tab 10/04/18 [Percocet 5/325] Surgical History: - - Patient has previous hip and knee arthroplasty no complications with anesthesia Psychiatric History: No pertinent psych hx 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 Lives: Spouse/ Significant Other Smoking Status: Never smoker Alcohol: None Drugs: None Review of Systems Constitutional: Denies: Chills, Fever, Weight Change HEENT: Denies: Head Aches, Sinus Congestion, Sinus Drainage Cardiovascular: Denies: Chest Pain, Palpitations Respiratory: Denies: Cough, Shortness of breath at rest, Sputum production Gastrointestinal: Denies: Abdominal Pain, Nausea, Vomiting Genitourinary: Denies: Dysuria Musculoskeletal: Reports: Joint Pain, Joint swelling, Joint Tenderness Skin: Denies: Rash, Wounds Neurological: Denies: Numbness, Tingling, Focal weakness Psychiatric: Denies: Anxiety, Depression, Homicidal Ideations, Suicidal Ideations Hematologic/ Lymphatic: Denies: Easy Bruising, Easy Bleeding Objective: Left wrist x-rays show dorsally displaced intra-articular fracture with 100% dorsal displacement and shortening. There is an ulnar styloid fracture as well. - Physical Exam General: Alert, Oriented x3, Cooperative Extremities: - - Left upper extremity: 2+ radial pulse. Positive thumbs up, okay sign and cross his fingers. Sensation is intact light touch R/AIN/U distally. Skin is intact. There is a small abrasion of the ulnar head but no deep laceration. No current bleeding. Vital Signs Temp Pulse Resp BP Pulse Ox 97.5 F L 66 11 L 124/84 H 97 10/04/18 13:41 10/04/18 16:28 10/04/18 16:28 10/04/18 16:28 10/04/18 16:28 Oxygen Flow Rate (L/min) [3] 4 Oxygen Flow Rate (L/min) [2] 2 Oxygen Flow Rate (L/min) [1 ( 2 Initial Baseline)] Oxygen Delivery Method [3] Nasal Cannula Oxygen Delivery Method [2] Nasal Cannula Oxygen Delivery Method [1 ( Nasal Cannula Initial Baseline)] Oxygen Delivery Method Room Air Weight: 220 lb Body Mass Index (BMI) 34.4 Assessment/Plan Left displaced comminuted intra-articular distal radius fracture with 2 fragments. Associated ulnar styloid fracture. Natural history of the disease process and treatment options were discussed the patient. At this time treatment options discussed for surgical intervention versus close reduction and casting/splinting. After discussion of risks and benefits of both I did recommend close reduction and splinting in the emergency department. Patient initially presented with paresthesias however these seem to have resolved. Neurologically she is intact. After thorough discussion of risks of closed reduction in the emergency department including further neurovascular injury, skin tears, compartment syndrome and loss of reduction patient demonstrated understanding. She was also consented for conscious sedation from the emergency room physician. After this conscious sedation was given. A reduction maneuver was performed in live x-ray was used to verify fracture reduction. With live x- ray we are able to verify the intra-articular component of the fracture there were 2 distinct fragments. After manipulation of the wrist and verification of fracture reduction in AP splint was placed using plaster. The splint was well molded and final x-rays were taken showing adequate reduction of the wrist fracture. Once these were completed patient was allowed to awake from anesthesia and reexamined. On reexamination patient was able to give thumbs up, okay sign cross fingers. She was neurovascular intact with sensation intact light touch R/M/U distally. Patient was given instructions for ice and elevation. She will follow-up in the office in 1 week. I did outline a treatment plan which includes weekly x-rays for the next 3 weeks and switching her to a cast at 3 weeks if x-rays remain appropriate. If she does experience a loss of reduction we discussed the surgical intervention which would include open reduction internal fixation of the wrist in a surgical manner as well as closed reduction percutaneous pinning. Patient demonstrates an understanding and is agreeable to this treatment plan. She will be given pain medicine from the emergency room physician. She was given instructions for ice and elevation. [facility] Office:
--- NOTE | 2018-10-04 16:30 | RAD_ITS ---
STUDY: X-RAY - LEFT WRIST REASON FOR EXAM: Female, 77 years old. Post reduction TECHNIQUE: 2 view(s) of the wrist were obtained. COMPARISON: Same day FINDINGS: 2 fluoroscopic images demonstrate interval reduction of distal radius fracture. Alignment is now grossly normal. RAD/Wrist 2 Views IMPRESSION: Successful distal radius fracture reduction. Electronically Signed: Roderick Wilder MD at 16:31 EDT Tel , Service support ,
== END 2018-10-04 17:27 | disposition home or self-care (01) ==
PROVIDERS: Emergency Provider Emergency Medicine; Family Provider Internal Medicine; PCP Internal Medicine
DX: S52.572A Other intraarticular fracture of lower end of left radius, initial encounter for closed fracture (principal); S52.612A Displaced fracture of left ulna styloid process, initial encounter for closed fracture; W01.10XA Fall on same level from slipping, tripping and stumbling with subsequent striking against unspecified object, initial encounter; Y93.9 Activity, unspecified; Y92.9 Unspecified place or not applicable; Y99.9 Unspecified external cause status; I10 Essential (primary) hypertension; E03.9 Hypothyroidism, unspecified; K21.9 Gastro-esophageal reflux disease without esophagitis; E66.01 Morbid (severe) obesity due to excess calories; Z88.1 Allergy status to other antibiotic agents; Z88.8 Allergy status to other drugs, medicaments and biological substances; Z79.899 Other long term (current) drug therapy; Z68.34 Body mass index [BMI] 34.0-34.9, adult
CPT/HCPCS: 25605; 73100; 73110; 76000; 90715; 96374; 96375; 99284; J7030; A4216; J2405

== ENCOUNTER → 2018-10-18 13:21 | Outpatient (CLI) | payer SELFPAY ==
[2018-10-04 13:41] VITALS: BMI 34.4
--- NOTE | 2018-10-18 13:28 | CT_ITS ---
STUDY: CARDIAC CALCIUM SCORING - CT CHEST REASON FOR EXAM: Female, 78 years old. Coronary calcium screening, over read. RADIATION DOSAGE (If Supplied By Facility): DLP = ( 243.79 ) mGycm TECHNIQUE: Axial non-enhanced images were acquired through the heart for the sole purpose of measuring coronary artery calcium. Individualized dose optimization techniques were used for this CT. COMPARISON: CT abdomen and pelvis 09/22/2014. FINDINGS: Body wall soft tissues: Approximate 12:00 position right breast, solid nodule measuring 9 mm. Differential considerations include both benign and neoplastic entities. Close clinical correlation patient's mammographic history is recommended. If no recent mammography, a follow-up diagnostic mammogram and ultrasound would be most appropriate. Upper abdomen: Limited evaluation, no acute process. Osseous structures: Mild scoliosis, mild thoracic spondylosis, osteopenia. Mediastinum: Minimal sliding hilum hernia. Normal esophagus. A few small mediastinal lymph nodes, none pathologically enlarged. No hilar lymphadenopathy. Aorta: Nondilated, trace arch atherosclerosis. Pulmonary arteries: Mildly ectatic central pulmonary arteries, main pulmonary artery 3 cm. Lungs: Generalized hyperlucency, subpleural reticulation at the lung bases, minimal scattered intraparenchymal reticulation, pattern favoring sequela of smoking history. Right lower lobe medial basilar segment smoothly marginated solid pulmonary nodule measuring 6.6 mm. Unremarkable airways. Heart: No cardiomegaly. Small pericardial effusion. There appears to be mild fatty metaplasia within the right ventricular free wall and outflow proximal, and at the apex of the left ventricle. Minimal aortic valve annulus calcifications. Mildly calcified mitral valve annulus. The right and left coronary arteries each emerge from the appropriate coronary sinus. Right coronary dominance to the PDA. Proximal most LAD, 8 mm length segment of dense coronary calcium. No visualized calcium in the left main, circumflex or the RCA distributions. CT/Limited Chest CT w/CCTA IMPRESSION: The coronary calcium score is reported under separate cover with cardiology. Please see that report. Small pericardial effusion. Pulmonary features most consistent with COPD/emphysema. 9 mm solid nodule in the right breast near the 12:00 position. Close correlation with mammography is recommended, as noted above. Electronically Signed: Lv Rodriges MD at 15:47 EDT Tel , Service support ,
[2018-10-18 13:52] VITALS: BP 103/65; PULSE 95; RESP 16; O2SAT 96; BMI 34.9
[2018-10-18 14:06] VITALS: BP 103/65; PULSE 95
[2018-10-18] MEDS: Metoprolol Tartrate 5 MG/5 ML Vial IV ×2 (14:06→14:18)
[2018-10-18 14:18] VITALS: BP 110/75; PULSE 75
[2018-10-18 14:23] VITALS: BP 114/71; PULSE 72; RESP 16; O2SAT 99
[2018-10-18 14:39] VITALS: BP 119/63; PULSE 66; RESP 16; O2SAT 99
--- NOTE | 2018-10-18 19:08 | CA.SCORE ---
Calcium Scoring Date of Study:: 10/18/18 Coronary Calcium Scoring: High-resolution Computed Tomographic imaging of the chest was performed on 10/18/2017 with particular attention paid to the coronary arteries. Images from the examination were analyzed for the presence and extent of coronary artery calcification , using coronary calcium quantification software. The patient tolerated the procedure well and there were no complications. The results of the coronary calcification analysis are provided below. - Findings Left Main (LM): 0 Left Anterior Descending (LAD): 165 Left Circumflex (LCX): 0 Right Coronary Artery (RCA): 0 Total Agatston Score: 165 - Conclusion Calcium Scoring Interpretation: 0 No identifiable atherosclerotic plaque. Very low cardiovascular disease risk. <5% chance of presence coronary artery disease A Negative Examination 1-10 Minimal Plaque burden. Significant coronary artery disease very unlikely. 11-100 Mild plaque burden. Likely mild or minimal coronary atherosclerosis. 101-400 Moderate plaque burden Moderate non-obstructive coronary artery disease highly likely. Over 400 Extensive plaque burden. High likelihood of at least one significant coronary stenosis (>50% diameter) Calcium Score: 101 - 400 Moderate non-obstructive coronary artery disease highly like - 1. Percentile ranking: Between 50% and 75% of people of the same gender/similar age had the same or lower scoresHer.2. Continue cardiovascular risk factor evaluation care as deemed appropriate.
== END ==
PROVIDERS: Family Provider Internal Medicine; PCP Internal Medicine; Referring Provider Internal Medicine; Visit Provider Internal Medicine
DX: Z13.6 Encounter for screening for cardiovascular disorders (principal); I10 Essential (primary) hypertension; E78.00 Pure hypercholesterolemia, unspecified
CPT/HCPCS: 75571; 76380; A4216

== ENCOUNTER → 2018-10-26 13:44 | Outpatient (CLI) | payer MEDICARE, SELFPAY ==
[2018-10-18 13:52] VITALS: BMI 34.9
--- NOTE | 2018-10-26 13:54 | BI_ITS ---
MAMMOGRAPHY - BILATERAL DIAGNOSTIC REASON FOR EXAM: Female, 78 years old. Right breast nodule PERTINENT HISTORY: Mother with history of breast cancer TECHNIQUE: Digital examination. Mediolateral oblique (MLO) and craniocaudad (CC) views of both breasts were obtained. 3-D tomosynthesis was performed. CAD: CAD was performed on this study. COMPARISON: 10/02/2017, 12/11/2015 FINDINGS: Breast Composition: There are scattered areas of fibroglandular density. There is a focus of dominant nodule measuring 1 cm, increased from prior examination of 7.5 mm, along the right upper outer portion of the breast parenchyma, with spiculated margin. This is best visualized on image 9/15 on the MLO, and 10/14 on the CC 3D tomosynthesis images. This corresponds to a solid lesion on the sonogram which requires further evaluation with stereotactic guided biopsy. Scattered benign-appearing calcifications. No other significant abnormalities are identified on the left. BI/DIAG MAMM W/CAD, BILAT IMPRESSION: Right breast solid lesion increased in size since prior, with spiculated margin. This is concerning for a neoplastic process and further assessment with a stereotactic guided biopsy is recommended as follow-up. ASSESSMENT CATEGORY: BIRADS Category 4: Suspicious - Biopsy Should Be Considered. A letter regarding these results will be sent to the patient by the facility within 30 days. FOLLOW UP RECOMMENDATION: Stereo Biopsy Recommended. (F) Approximately 10% of breast cancers are not detected by mammography. A normal mammogram should not delay biopsy of a clinically suspicious abnormality. Electronically Signed: Manas Choi MD at 15:25 EDT Tel [phone], Service support ,
--- NOTE | 2018-10-26 13:54 | US_ITS ---
STUDY: ULTRASOUND BREAST - RIGHT REASON FOR EXAM: Female, 78 years old. Mammographic density TECHNIQUE: Axial and longitudinal images of the RIGHT breast were performed with a high resolution ultrasound transducer. COMPARISON: 10/02/2017 12/11/2015. FINDINGS: RIGHT Breast: There is a focus of dominant nodule measuring 1 cm, increased from prior examination of 7.5 mm, along the right upper outer portion of the breast parenchyma, with spiculated margin. This is best visualized on image /15 on the MLO, and 10/14 on the CC 3D tomosynthesis images. This corresponds to a solid lesion on the sonogram measuring 7 x 9 x 8 mm on the sonogram, and is concerning for a possible neoplastic process with increase in size since prior study from 2017. Further evaluation with stereotactic guided biopsy. US/Breast Limited Unilateral IMPRESSION: Right breast solid lesion increased in size since prior from 2018, with spiculated margin. This is concerning for a neoplastic process and further assessment with a stereotactic guided biopsy is recommended as follow-up. ASSESSMENT CATEGORY: BIRADS Category 4: Suspicious - Biopsy Should Be Considered. A letter regarding these results will be sent to the patient by the facility within 30 days. FOLLOW UP RECOMMENDATION: Stereo Biopsy Recommended. (F) Electronically Signed: Manas Choi MD at 15:38 EDT Tel [phone], Service support ,
== END ==
PROVIDERS: Family Provider Internal Medicine; PCP Internal Medicine; Referring Provider Internal Medicine; Visit Provider Internal Medicine
DX: N63.10 Unspecified lump in the right breast, unspecified quadrant (principal); R92.1 Mammographic calcification found on diagnostic imaging of breast; Z80.3 Family history of malignant neoplasm of breast
CPT/HCPCS: 76642; 77062; 77066; G0279

== ENCOUNTER → 2018-10-30 14:58 | Outpatient (CLI) | payer MEDICARE, SELFPAY ==
[2018-10-18 13:52] VITALS: BMI 34.9
--- NOTE | 2018-10-30 15:05 | ECHOCS_ITS ---
Reason For Study: ABN EKG Procedure This was a 2D Doppler, Color Flow transthoracic echocardiogram. The study was technically difficult. Contrast injection was performed. Exam performed in department. Left Ventricle Normal LV size. Left ventricular systolic function is normal. The estimated ejection fraction is 60 %. Diastolic function is indeterminate. No regional wall motion abnormalities noted. Right Ventricle Normal RV size. Normal systolic function. Atria Normal left atrium. Normal right atrium. No doppler evidence for ASD. Mitral Valve There is mild mitral annular calcification. Extension of the mitral annular calcification onto the posterior mitral valve leaflet. Trivial mitral valve insufficiency. Tricuspid Valve Normal tricuspid valve. Trivial tricuspid valve insufficiency. Right ventricular systolic pressure estimated to be 27 mmHg. Aortic Valve Trisinus/trileaflet aortic valve. Normal aortic valve. Pulmonic Valve The pulmonic valve is not well visualized. Trivial pulmonic valve insufficiency. Great Vessels Borderline enlarged aortic root. Pericardium/Pleural Trivial pericardial effusion. There are no echocardiographic indications of cardiac tamponade. Medication 22 gauge I.V. with prn adaptor inserted into right arm. Diluted definity 3.5ml given slow IV push to enhance endocardial definition. MMode/2D Measurements & Calculations LVIDd: 4.5 cm IVSd: 0.82 cm Ao root diam: 3.9 cm LVIDs: 2.7 cm LVPWd: 0.84 cm RVDd: 3.2 cm FS: 40.7 % LAV(MOD-bp): 45.3 ml EDV(MOD-sp4): 81.3 ml EDV(MOD-sp2): 91.2 ml LAV(MOD-bp) Indexed: 21.8 ml/m2 ESV(MOD-sp4): 28.2 ml EF(MOD-sp2): 51.3 % LAV(MOD-sp2): 55.6 ml EF(MOD-sp4): 65.3 % LAV(MOD-sp4): 36.8 ml SV(MOD-sp4): 53.0 ml SV(MOD-sp2): 46.8 ml LA A4 area: 14.8 cm2 LA dimension(2D): 3.6 cm RA A4 area: 12.8 cm2 Time Measurements MV dec time: 0.40 sec Doppler Measurements & Calculations MV E max luciano: 64.8 cm/sec Lat Peak E' Luciano: 6.5 cm/sec Med Peak E' Luciano: 4.0 cm/sec MV A max luciano: 138.1 cm/sec E/E' lat: 9.9 E/E' med: 16.2 MV E/A: 0.47 MV V2 max: 148.9 cm/sec Ao V2 max: 155.8 cm/sec LV V1 max: 100.4 cm/sec MV max P.9 mmHg Ao max P.7 mmHg LV V1 max P.0 mmHg MV V2 mean: 81.1 cm/sec MV mean P.2 mmHg MV V2 VTI: 26.4 cm TR max luciano: 243.6 cm/sec MV P1/2t-pr_phl: 119.7 msec TR max P.8 mmHg Interpretation Summary The study was technically difficult. Contrast injection was performed. Left ventricular systolic function is normal. The estimated ejection fraction is 60 %. There is mild mitral annular calcification. Extension of the mitral annular calcification onto the posterior mitral valve leaflet. Trivial mitral valve insufficiency. Trivial tricuspid valve insufficiency. Trivial pulmonic valve insufficiency. Borderline enlarged aortic root. Trivial pericardial effusion. There are no echocardiographic indications of cardiac tamponade. Right ventricular systolic pressure estimated to be 27 mmHg. Diastolic function is indeterminate. Ordering Physician: Kristine Moncada Referring Physician: Kristine Moncada Performed By: Dafne Saenz, BLAIR, RVT
== END ==
LOC: OPBI 14:59 → CVS 15:05
PROVIDERS: Family Provider Internal Medicine; PCP Internal Medicine; Referring Provider Internal Medicine; Visit Provider Internal Medicine
DX: R94.31 Abnormal electrocardiogram [ECG] [EKG] (principal)
CPT/HCPCS: 93306; Q9957; A4216; C8929

== ENCOUNTER → 2018-11-06 08:30 | Outpatient (CLI) | payer MEDICARE, SELFPAY ==
--- NOTE | 2018-11-06 | IMM_PTH ---
PATIENT: VIRGINIA URRUTIA LOC: [facility] U#:[id number] AGE/SX: 84/F ROOM: RE11/06/[address]: Dr. Sachin Huang MD : 1940 BED: DIS: SPEC #: [id number] RECD: 11/07/18 12:40 STATUS: DANIEL REQ #: [id number] ARLETTE: 11/06/18 00:[address]: Sachin Huang DEPT: IMMUNOHISTOCHEMISTRY RECD BY: Jordy Engel ENTERED: 11/07/18 12:42 SP TYPE: IMMUNO OTHR DR: Dr. Kristine Moncada DO Tissues: Right breast, NOS Procedures: CALPONIN-1 (add) CK5-6 (add) CK8 (add) E-CAD (add) HER2 JAVAD (add) KI-67 (add) P53 (add) WY (add) P40 (add) ER (initial) PHYSICIAN & INSTITUTION [facility] [id number] SPECIMEN INFORMATION: Tissue Source: Right breast biopsy Clinical Info: Abnormal mammogram, right breast Specimen Number: [id number] CPT code: 72391, 73817 x6, 37230 x3, METHODOLOGY: Deparaffinized sections of prefer/formalin-fixed tissue or PAP/DQ stained slides are incubated with monoclonal/polyclonal antibodies/oligonucleotide probes. Localization is made via biotin free immunoperoxidase method. Appropriate controls are performed and reacted as expected. Results on target cell population are indicated in the following table: RESULTS: ANTIBODY / CLONE RESULT E-Cad (ECH-6) positive CK8 ([id number]) positive Calponin-1 (UY200Z) negative CK5-6 (D5 & 1684) negative P40 (BC28) negative P53 (DO-7) negative Ki-67 (30-9) positive, low MORPHOMETRIC ANALYSIS ER (clone 6F11) >95%, strong intensity WY (clone 16/1E2) >95%, strong intensity Her-2Neu (clone CB11) 0 The prognostic test for HER2 is performed on formalin-fixed paraffin embedded tissue. A 3+ (positive) staining pattern is defined as intense, homogeneous, complete, circumferential membranous staining in >10% of contiguous tumor cells. A similar weak (2+) staining pattern is interpreted as equivocal. JAKOB follow-up testing is recommended for all equivocal cases. Positivity/negativity for ER/WY is reported if > or < 1% of the tumor cells are immuno- reactive, respectively. The ASCO/CAP criteria is used for scoring. Reference: Journal of Clinical Oncology, 2013; 31:7105-9409 & 2010; 16:7792-7724. Duration of fixation: 11.5 Hrs; Sample Adequate: Yes. These assays have not been validated on decalcified tissues. Results should be interpreted with caution given the likelihood of false negativity on decalcified specimens. These tests were developed and their performance characteristics determined by [facility]. They may not have been cleared or approved by the U.S. Food and Drug Administration. The FDA has determined that such clearance or approval is not necessary. INTERPRETATION: Right breast, core biopsy: Invasive ductal carcinoma, nuclear grade 1 Positive for estrogen receptors (favorable prognostic indicator). Positive for progesterone receptors (favorable prognostic indicator). Negative for overexpression of KTE0jsg. SJ:abisai 11/08/18
[2018-11-06 08:25] VITALS: BMI 35.5
--- NOTE | 2018-11-06 08:30 | BRBX_PTH ---
PATIENT: VIRGINIA URRUTIA LOC: [facility] U#:[id number] AGE/SX: 84/F ROOM: RE11/06/[address]: Dr. Sachin Huang MD : 1940 BED: DIS: SPEC #: [id number] RECD: 11/06/18 10:05 STATUS: DANIEL REVianca #: [id number] ARLETTE: 11/06/18 08:[address]: Sachin Huang DEPT: SURGICAL PATHOLOGY RECD BY: Sourav Luciano ENTERED: 11/06/18 14:18 SP TYPE: BREAST BX OTHR DR: Dr. Kristine Moncada DO Tissues: Right breast, NOS Procedures: Surgery Specimen Level IV HEADER OPERATION: Ultrasound guided needle core biopsy, right breast PRE-OP DIAGNOSIS: Abnormal mammogram, right breast TISSUE SUBMITTED: Right breast biopsy ISCHEMIC TIME: One minute FIXATION TIME: 11.5 hours MICROSCOPIC DIAGNOSIS Right breast, ultrasound-guided needle core biopsy: Invasive ductal carcinoma, nuclear grade 1 (1 cm in greatest length). See comment BRET:tiffanie 11/07/18 COMMENT Immunohistochemistry ([id number]) supports the above diagnosis. ER/AR/Ffn7dyz studies are being performed on sections of tumor and the results from this study will be reported separately ([id number]). Case has been reviewed in consultation with Dr. Atkinson who concurs with the above diagnosis. IDC:AM MICROSCOPIC DESCRIPTION Slides are reviewed. GROSS DESCRIPTION Received is one container labeled with the patient name and designated right breast biopsy. The specimen consists of multiple elongated fragments of mann-yellow fibroadipose tissue that in aggregate measure 3 x 1 x 0.1 cm. The specimen is totally submitted in one cassette. /BRET:tiffanie 11/06/18 TC: 0 CPT: 16486
== END ==
PROVIDERS: Family Provider Internal Medicine; PCP Internal Medicine; Referring Provider Surgery; Visit Provider Surgery
DX: R92.8 Other abnormal and inconclusive findings on diagnostic imaging of breast (principal); C50.911 Malignant neoplasm of unspecified site of right female breast; Z17.0 Estrogen receptor positive status [ER+]
CPT/HCPCS: 88305; 88341; 88342

== ENCOUNTER → 2018-11-16 15:11 | Outpatient (CLI) | payer MEDICARE, SELFPAY ==
[2018-11-13 13:37] VITALS: BMI 35.5
--- NOTE | 2018-11-16 15:16 | CT_ITS ---
HISTORY:BREAST CA(new diagnosis), LUNG NODULE BREAST CA(new diagnosis), LUNG NODULE CT Chest W/ Contrast TECHNIQUE: Helically acquired images were obtained of the chest following 100 Isovue 300 IV contrast. A radiation dose optimization technique was used for this scan. COMPARISON: October 18, 2018 FINDINGS: # of images incl. paperwork: [phone] PULMONARY ARTERIES: There is no central pulmonary embolism although this study was not performed with the pulmonary embolism protocol. AORTA/AORTIC ARCH: Unremarkable. HEART/PERICARDIUM: The heart is not enlarged. There is a pericardial effusion that was present on the prior study. This measures approximately 1.1 cm at its widest ADENOPATHY: No mediastinal or hilar adenopathy. Left axillary lymph node measuring approximately 7 mm short axis with a fatty hilum. THYROID: Unremarkable. LUNG PARENCHYMA: Centrilobular emphysematous changes Scarring in the right lung apex Centrilobular emphysematous changes Minimal scattered intraparenchymal reticulation is again noted similar to prior study PULMONARY NODULES (>3mm): There is a right lower lobe nodule seen on image 64 series 4 that measures approximately 6 mm. This was present on the prior study and is similar. Pleural-based nodularity is seen within the posterior aspect of the right lung base. The largest is seen on axial image 52 series 4. This was not seen on the prior study. This area measures approximately 1.2 cm transverse by approximately 5 mm AP. Additional minimal nodularity is seen bilaterally in the lower lobes on image 65 that was present on the prior study.Unremarkable. PLEURAL EFFUSION: Unremarkable. PNEUMOTHORAX: Unremarkable. UPPER ABDOMEN: There is a clip seen within the right breast presumably from prior biopsy hepatic steatosis. Hiatal hernia. OSSEOUS STRUCTURES: No acute osseous abnormality CT/Chest WITH Contrast IMPRESSION: Right lower lobe nodule similar to prior study. There is a new pleural-based nodular density within the posterior aspect of the right hemithorax as discussed. Minimal pleural nodularity is seen bilaterally in the lower hemithoraces unchanged from prior study Centrilobular emphysematous changes Reticular interstitial thickening in the left lower lobe unchanged from prior study There is a clip within the right breast presumably from prior biopsy Pericardial effusion that was seen on the prior study Hepatic steatosis Hiatal hernia Individualized dose optimization techniques were used for this CT. at 2338 Reported and signed by: Marilyn Waters DO Electronically Signed: Marilyn Waters DO at 23:37 EDT Tel , Service support ,
[2018-11-16 15:30] LABS: CREATININE FINGERSTICK 1.5 mg/dL (0.55-1.02)
== END ==
PROVIDERS: Family Provider Internal Medicine; PCP Internal Medicine; Referring Provider Internal Medicine; Visit Provider Internal Medicine
DX: R91.1 Solitary pulmonary nodule (principal)
CPT/HCPCS: 71260; Q9967

== ENCOUNTER → 2018-11-20 06:44 | Outpatient (CLI) | payer MEDICARE, SELFPAY ==
[2018-11-13 13:37] VITALS: BMI 35.5
--- NOTE | 2018-11-20 17:10 | STRESSREP ---
Stress Test Report Pharmacologic myocardial perfusion stress test. 78-year-old lady for preoperative evaluation. Medications: Amlodipine, Diovan, meloxicam. Stress protocol: Resting EKG demonstrates normal sinus rhythm with a rate of 77 bpm normal intervals are noted resting blood pressures 142/78 mmHg. 0.4 mg of regadenoson was infused per usual protocol followed by rapid intravenous saline flush injection continuous EKG monitoring was performed. Maximum heart rate attained was 106 bpm which was 73% of maximum predicted heart rate the maximum workload was 1 metabolic equivalent. At rest there were no ST or T wave changes noted suggest abnormal flow reserve at peak infusion nonspecific ST-T wave changes were noted with no meet the criteria for ischemia. Myocardial perfusion is stress test. 14.1 mCi of technetium 99m sestamibi was injected at rest. 0.4 mg of regadenoson was infused per usual protocol peak infusion 43.3 mCi of technetium 99m sestamibi was injected stress images were obtained stress and rest images were reconstructed and compared in the short axis vertical and horizontal long axis. Gated images were also obtained per Perfusion SPECT analysis: Review of the stress images demonstrate normal cardiac silhouette size. There is a small defect noted in the mid to basal inferior wall on the stress and resting images to a similar extent. There is significant GI attenuation also noted. The above is likely suggestive of that. No obvious reversibility is noted to suggest ischemia. Gated SPECT analysis: The gated ejection fraction is noted to be 86%. Conclusion: Myocardial perfusion stress test with no obvious ischemia noted. Preserved ejection fraction.
== END ==
PROVIDERS: Family Provider Internal Medicine; PCP Internal Medicine; Referring Provider Internal Medicine; Visit Provider Internal Medicine
DX: I25.10 Atherosclerotic heart disease of native coronary artery without angina pectoris (principal)
CPT/HCPCS: 78452; 93017; A9500; A4216; J2785

== ENCOUNTER 2018-11-26 11:50 | Day surgery (SDC) | payer MEDICARE, SELFPAY ==
[2018-11-13 13:37] VITALS: BMI 35.5
[2018-11-26] VITALS (7 sets, daily range): BP systolic 119–155; BP diastolic 68–88; PULSE 67–96; RESP 16; TEMP 36.6–37.1; O2SAT 68–99; BMI 37.0
--- NOTE | 2018-11-26 | IMM_PTH ---
PATIENT: VIRGINIA URRUTIA [place] [facility] [place][id number] AGE/SX: 78/F ROOM: RE11/26/[address]: Dr. Sachin Huang MD : 1940 BED: DIS: 11/27/2018 SPEC #: [id number] RECD: 11/29/18 13:58 STATUS: DANIEL REQ #: [id number] ARLETTE: 11/26/18 00:[address]: Sachin Huang DEPT: IMMUNOHISTOCHEMISTRY RECD BY: Abeba Robison ENTERED: 11/29/18 14:00 SP TYPE: IMMUNO OTHR DR: Dr. Kristine Moncada, DO Tissues: A - Right breast, NOS B - Axillary lymph node, NOS Procedures: E-CAD (initial) CK8 (add) Pankeratin (initial) PHYSICIAN & INSTITUTION [place] [address] SPECIMEN INFORMATION: Tissue Source: A - Right breast tissue, B - Right breast sentinel lymph node biopsy Clinical Info: Malignant neoplasm of upper outer quadrant right breast, ER positive Specimen Number: [id number] A4 & B CPT code: 58693 x2, 90429 METHODOLOGY: Deparaffinized sections of prefer/formalin-fixed tissue or PAP/DQ stained slides are incubated with monoclonal/polyclonal antibodies/oligonucleotide probes. Localization is made via biotin free immunoperoxidase method. Appropriate controls are performed and reacted as expected. Results on target cell population are indicated in the following table: RESULTS: ANTIBODY / CLONE RESULT Block A4 E-Cad (ECH-6) positive Block B CK8 ([id number]) negative AE1-3 (AE1/AE3/PCK26) negative These tests were developed and their performance characteristics determined by [facility]. They may not have been cleared or approved by the U.S. Food and Drug Administration. The FDA has determined that such clearance or approval is not necessary. INTERPRETATION: A. Right breast tissue: Invasive ductal carcinoma. B. Right axillar sentinel lymph node, biopsy: One out of one benign lymph node. AM:bertin 11/30/18
--- NOTE | 2018-11-26 | BRBX_PTH ---
PATIENT: VIRGINIA URRUTIA [place] [facility] [place][id number] AGE/SX: 78/F ROOM: RE11/26/[address]: Dr. Sachin Huang MD : 1940 BED: DIS: 11/27/2018 SPEC #: [id number] RECD: 11/26/18 14:35 STATUS: DANIEL REQ #: [id number] ARLETTE: 11/26/18 00:[address]: Sachin Huang DEPT: SURGICAL PATHOLOGY RECD BY: Abeba Robison ENTERED: 11/26/18 15:12 SP TYPE: BREAST BX OTHR DR: Dr. 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 Right axillary sentinel lymph node, biopsy: One out of one lymph node, negative for carcinoma. AM:bertin 11/26/18 MICROSCOPIC DIAGNOSIS A. Right breast, lumpectomy: Invasive ductal carcinoma. See cancer checklist below. B. Right axillary sentinel lymph node, biopsy: One out of one lymph node, negative for carcinoma. AM:bertin 11/30/18 COMMENT INVASIVE BREAST CANCER SUMMARY: Specimen: excision with wire guidance Procedure: partial breast Specimen integrity: Single intact specimen. Specimen size: 10 x 7 x 4 cm Specimen laterality: Right breast Invasive tumor size: 1.2 x 1.2 x 1 cm Tumor focality: Single focus of invasive carcinoma Macroscopic and Microscopic extent of tumor: Skin: free of carcinoma Nipple: not present Skeletal muscle: not present Histologic type of invasive carcinoma: Invasive ductal carcinoma Histologic Grade (Vickey grade): Glandular/tubular differentiation score: 2 Nuclear pleomorphism score: 2 Mitotic count score: 1 Overall grade: Grade 1 (total score of 5) Margins: uninvolved by invasive carcinoma. Distance from closest (superior margin): 1.5 cm Lymph-Vascular invasion: Not identified Dermal lymph-vascular invasion: Not identified Ductal carcinoma in situ (DCIS): not present Lobular carcinoma in situ (LCIS): not present Lymph nodes: (see specimen A) Number of sentinel lymph nodes examined: 1 Total number of lymph nodes examined (sentinel and nonsentinel): 1 No evidence of macrometastases, micrometastases or isolated tumor cells. Microcalcifications: focally present in carcinoma. Treatment effect: Unknown Additional pathologic findings: fibrocystic change, microfibroadenoma, changes of previous biopsy and focal intraductal hyperplasia without atypia. Ancillary studies: Previously performed on same tumor ([id number] / [id number]). ER: <95%, strong intensity WI: <95%, strong intensity Her2 wm: 0 ([facility]) PATHOLOGIC STAGE: pT1a N0 Mx The above summary is in compliance with [employer] [place] [employer] (CAP) Cancer Protocols Checklist and [place] Joint Committee on Cancer (AJCC), Staging Manual, 8th Ed. A. Immunohistochemistry ([id number]) supports the above diagnosis. Case has been reviewed in consultation with Dr. Khan who concurs with the above diagnosis. IDC:SJ MICROSCOPIC DESCRIPTION Slides are reviewed. GROSS DESCRIPTION A - Received fresh for OR consultation labeled with the patient's name is a specimen designated right breast tissue. The specimen consists of a lumpectomy specimen with needle localization measuring 10?x 7 x 4 cm. A piece of the skin is noted laterally measuring 0.8 x 0.6 cm. The specimen is oriented as?follows: double suture long - medial, wire and skin - lateral, single long - inferior, double short - posterior toward chest wall. The specimen is inked as follows: anterior - yellow, posterior - black, superior - blue, inferior - green, medial - red and lateral - orange. Serial sections reveal a biopsy cavity with an indurated mass lesion measuring 1.2 x 1.2 x 1 cm. This mass is 1.5 cm away from the closest superior margin. This is conveyed to the surgeon intraoperatively. Sections of the rest of the specimen reveal yellow adipose cut surfaces with scant fibrous areas. Floor Representative sections are submitted in 12?cassettes as follows: 1 & 2 - perpendicular margin (cassette 1 contains the entire skin), 3-6 - entire tumor with surrounding tissue, 7-9 - malt liquors sales representative sections adjacent to biopsy cavity, 10-12 - malt liquors sales representative sections adjacent to biopsy cavity. Sections are submitted after additional fixation. / SJ:bertin 11/27/18 B - Received fresh for frozen section consultation labeled with the patient's name is a specimen designated right breast sentinel lymph node. The specimen consists of an irregular fragment of mann-yellow fibrofatty tissue measuring 3 x 1.5 x 1 cm. Dissection reveals a 2 cm nodule. The nodule is bisected and submitted in its entirety for frozen section consultation in one block. / AM:bertin 11/26/18 TC:0 CPT:16708, 05767 x2, 80106 ADDENDUM ADDENDUM ADDENDUM ADDENDUM ADDENDUM ADDENDUM ADDENDUM ADDENDUM 12/20/2018 10:40 ADDENDUM 12/20/2018 10:40 ADDENDUM 12/20/2018 10:40 ADDENDUM 12/20/2018 10:40 ADDENDUM 12/20/2018 10:40 An order for Oncotype testing was received from Dr. Blanton. This necessitated case review, block and slide selection by pathologist at [facility]. Breast Cancer Recurrence Score = 8 Results of the complete Oncotype testing ([facility] report) are viewable in EMR under: Reports - Pathology - Lab Pathology Report, Scanned.
--- NOTE | 2018-11-26 11:50 | NM_ITS ---
PROCEDURE: NUCLEAR MEDICINE Injection [place] Node - RIGHT breast(s). REASON FOR EXAM: Female, 78 years old. Right breast cancer. TECHNIQUE: [place] node localization using radionuclide methods of the RIGHT breast(s) was performed following subcutaneous administration of 1.0 mCi of of sulfur colloid Tc-99m. FINDINGS: 1 mCi of technetium labeled sulfur colloid was injected in 4 equal aliquots in the mid upper aspect of the right breast. NM/Lymph Node Injection Only IMPRESSION: Subcutaneous injection of the 1 mCi of technetium labeled sulfur colloid for sentinel node imaging. Electronically Signed: Dashawn Rowe, at 13:00 EDT , Service support ,
[2018-11-26] MEDS: Lactated Ringers 1,000 ML 100 ML IV ×2 (12:49→17:46)
--- NOTE | 2018-11-26 13:35 | PCM.HP.BLA ---
History and Physical Date of Admission: 11/26/18 [facility] [address] [place] [address] OFFICE VISIT Date of Service: 11/13/18 MR#: [id number] Acct: [id number] Name: VIRGINIA URRUTIA Rep #: [id number] : 1940 Provider: Sachin Huang MD Age/Sex: 78/F Location: [facility] Status: Signed Intake Vital Signs 11/13/18 Body Mass Index (BMI) 35.5 Intake Visit Reasons: 1 wk f/u R Breast N/C BX Chief Complaint: CALCIUM SCORE [employer] Machine Required: No Is patient in pain?: No Allergies Beef Containing Products Adverse Reaction (Verified 11/13/18 13:37) Other hydrochlorothiazide [From Diovan HCT] Adverse Reaction (Verified 11/13/18 13:37) Other levofloxacin [From Levaquin] Adverse Reaction (Verified 11/13/18 13:37) Mucosal lesions pramipexole di-HCl [From Mirapex] Adverse Reaction (Verified 11/13/18 13:37) Unknown prednisone Adverse Reaction (Verified 11/13/18 13:37) Chest tightness tramadol Adverse Reaction (Verified 11/13/18 13:37) Other valsartan [From Diovan HCT] Adverse Reaction (Verified 11/13/18 13:37) Other Medications Amlodipine [Norvasc] 5 mg PO DAILY 12/23/14 [History Confirmed 11/13/18] Levothyroxine [Synthroid] 150 mcg PO DAILY 12/23/14 [History Confirmed 11/13/18] Valsartan [Diovan] 160 mg PO DAILY 12/23/14 [History Confirmed 11/13/18] Clidinium/Chlordiazepoxide [Librax] 2.5 - 5 mg PO PRN PRN 12/27/14 [History Confirmed 11/13/18] Ergocalciferol [Vitamin D] 50,000 unit PO Q7D 12/27/14 [History Confirmed 11/13/18] Levothyroxine [Synthroid] 300 mcg PO FAM 12/27/14 [History Confirmed 11/13/18] Lutein 20 mg PO DAILY 12/27/14 [History Confirmed 11/13/18] Ubiquinol 100 mg PO DAILY 12/27/14 [History Confirmed 11/13/18] Diclofenac Sodium [Voltaren] 0 gm TOPICAL PRN PRN 04/14/16 [History Confirmed 11/13/18] Tizanidine HCl [Zanaflex] 4 mg PO DAILY 04/14/16 [History Confirmed 11/13/18] Cyanocobalamin [Vitamin B12] 500 mcg PO QODAY 10/04/18 [History Confirmed 11/13/18] Meloxicam [Mobic] 15 mg PO DAILY 10/04/18 [History Confirmed 11/13/18] acetaminophen 325 mg capsule 325 mg PO Q6H PRN 11/01/18 [History Confirmed 11/13/18] clotrimazole 1 % topical cream 1 applic TOPICAL BID PRN 11/01/18 [History Confirmed 11/13/18] omeprazole 40 mg capsule,delayed release 40 mg PO DAILY 11/01/18 [History Confirmed 11/13/18] oxycodone 5 mg tablet 5 mg PO DAILY 11/01/18 [History Confirmed 11/13/18] quinine 260 mg tablet 260 mg PO QHS PRN tab 11/01/18 [History Confirmed 11/13/18] PFSH Medical History Abnormal mammogram of right breast (Acute) Anemia (Acute) Lump of right breast (Acute) Spinal stenosis (Acute) Osteopenia (Acute) IBS (irritable bowel syndrome) (Acute) Diverticulosis of colon (Acute) Vitiligo (Acute) Arthritis (Acute) Obesity (Chronic) History of gastroesophageal reflux (GERD) (Chronic) Benign essential hypertension (Chronic) Acquired hypothyroidism (Chronic) Breast cancer, right (Acute) Surgical History Hx of resection of meningioma (Acute) History of total right hip replacement (Acute) History of total right knee replacement (TKR) (Acute) History of total left knee replacement (TKR) (Acute) Hx of cataract removal with insertion of prosthetic lens (Acute) Family History Mother Arthritis Breast cancer Hypertension Thyroid disorder Social History (Updated 11/13/18 @ 15:58 by Sachin Huang MD) Smoking Status: Never smoker second hand exposure: No alcohol intake: current alcohol intake frequency: holidays/special occasions only substance use type: does not use caffeine: Yes what type of physical activity do you participate in: none frequency: does not exercise HPI HPI HPI: VIRGINIA URRUTIA, is a 78 F who presents to the office today for HPI HPI Surgical H&P: Yes HPI: VIRGINIA URRUTIA is a 78 F who presents to the office today for Continuing care from a ultrasound-guided needle core biopsy performed in the office on 11/06/2018. Patient had her mammograms and ultrasound completed [facility] on 10/26/2018.She was noted to have a lesion in the right upper quadrant of her breast giving her a BI-RADS Category 4 this is enlarged since her previous mammogram and ultrasound.She has noticed a breast lump herself. Her biopsy results came back as invasive ductal carcinoma nuclear grade 1. She was estrogen receptor positive progesterone receptor positive and HER-2/wm negative ROS General General: No weight change, appetite, fatigue, colon cancer, breast cancer or weakness HEENT HEENT: Yes eye injury and eye surgery; no difficulty swallowing, swollen glands or hoarseness Endo Endocrine: Yes thyroid disease; no diabetes mellitus, thyroid cancer, Hair loss, heat intolerance or cold intolerance Skin Skin: No rash or changing moles Breast Breast: Yes right breast lump, abnormal mammogram and abnormal US; no left breast lump, nipple discharge, breast pain or breast enlargement Musc Musculoskeletal: Yes back problems and arthritis; no rheumatoid arthritis, gout or joint pain Cardio Cardiovascular: Yes high blood pressure; no murmur, pacemaker, heart disease, atrial fibrillation, heart attack, heart stent, palpitations, shortness of breat with exertion or chest pain Psych Psychiatric: No depression, anxiety or hearing voices Resp Respiratory: No shortness of breath, No sleep apnea, No cough, No COPD, No asthma, No emphysema, No wheezing Gastro Gastrointestinal: No abdominal pain, No nausea or vomiting, No diarrhea, No constipation, No blood in stool, No acid reflux, No hemorrhoids, No ulcers, No gallbladder problem, No black,tarry stools [place] Hematologic: No blood thinners, No blood disorders, No bleeding, No anemia, No blood clots Neuro Neurologic: No weakness Exam Const General: no acute distress, well developed, well hydrated Orientation: oriented to person, oriented to place, oriented to time [facility] Head: normocephalic, atraumatic Ears: external ears normal Mouth: moist mucous membranes Eyes Sclera: sclerae normal Pupils: normal by confrontation Neck Neck: no lymphadenopathy noted Neck mass: No Thyroid: thyroid normal, symmetrical Chest Chest palpation & inspection: normal inspection of the chest Breast inspection: normal inspection of the breasts Breast Palpation: No nipple discharge Other: Palpation of the right breast reveals Incision is clean no signs of infection minimal bruising is identified. Palpation of the left breast reveals No exam was done. Axillary exam demonstrates no suspicious masses in either the left or right axilla. Resp Effort & Inspection: normal respiratory effort Auscultation: clear to auscultation bilaterally Percussion: percussion normal Cardio Rate: regular rate Rhythm: regular rhythm Heart Sounds: no murmurs GI Palpation: soft, no hepatosplenomegaly, no masses, nontender Rectal Exam: other Other: Rectal exam deferred. Extrem General: normal to inspection, no clubbing, cyanosis or edema Assessment & Plan Problems 1. Malignant neoplasm of upper-outer quadrant of right breast in female, estrogen receptor positive C50.411; Z17.0 Plan I have given the patient options for initial surgical treatment. Options are the following: lumpectomy followed by radiation therapy vs. mastectomy vs. mastectomy followed by immediate reconstruction. I have described the procedures to the patient. I have described the advantages and disadvantages of the options, but I have told the patient that among the options, the survival rate for breast cancer is the same. I have told the patient that with all the surgeries that a sentinel lymph node biopsy is required. I have described the procedure of sentinel lymph node biopsy to the patient. I have told the patient that if the biopsy is positive for metastatic disease, then a full axillary lymph node dissection is required. I have told the patient that adjuvant chemotherapy will be required should the lymph nodes reveal metastatic disease. Also, a full lymph node dissection will increase the risk for lymphedema, especially if there are 4 or more lymph nodes positive for metastatic disease and radiation to the axilla is also required. I have told the patient the risks of surgery, including but not limited to: infection, bleeding, scar tissue, seroma and persistent seroma, lymph leak, injury to any blood vessels, injury to any nerves (particularly the long thoracic, the thoracodorsal, and the second intercostal brachial and the resultant sequelae), lymphedema, cosmetic deformity, dysesthesias, wound infections, further surgery (especially if margins are not clear), complications of anesthesia, etc. the patient understands. The patient will think about the options and discuss it further with the family. The patient will contact me in the next few days when she decides what the patient wishes to do. I have answered all the patient?s questions at this point to her satisfaction and she has no further questions. Patient has opted for an ultrasound-guided wire localization lumpectomy with sentinel lymph node biopsy The patient will need to get medical clearance from her primary care physician prior to the procedure. Coding Level of Care Code Off vis,est,level 3 Diagnoses Malignant neoplasm of upper-outer quadrant of right breast in female, estrogen receptor positive C50.411; Z17.0 ??Breast location: upper outer quadrant of breast ??Estrogen receptor status: positive ??Patient sex: female ??Laterality: right 11/13/18 [id number] <Electronically signed by Sachin Huang MD> Date Sachin Huang MD Cosigner Signature: Date (if applicable) CC: Kristine Moncada DO ~ I have re-examined the patient. There are no clinical changes since date of exam.
--- NOTE | 2018-11-26 13:37 | PCM.OPRPT ---
Problem List (1) Malignant neoplasm of upper-outer quadrant of right female breast Status: Acute Qualifiers: Estrogen receptor status: positive Qualified Code(s): C50.411 - Malignant neoplasm of upper-outer quadrant of right female breast; Z17.0 - Estrogen receptor positive status [ER+] Report of Operation Date of Procedure: 11/26/18 Pre-Operative Diagnosis: Breast cancer upper outer quadrant female Post-Operative Diagnosis: Same Surgery/Procedure Performed:: 1. Injection of 5 cc of Lymphazurin blue. 2. Ultrasound-guided wire localization of right breast cancer upper outer quadrant. 3. Right-sided lumpectomy. 4. Right axillary sentinel lymph node biopsy Type of Anesthesia:: General Specimen's removed: 1. Right upper outer quadrant lumpectomy. 2. Right-sided sentinel lymph node biopsies Description of Procedure: Patient was brought into the operating room placed in the supine position. Under excellent general anesthetic I prepped the right breast with some alcohol. Ultrasound used in the upper outer quadrant Kopan's wire was placed directly through the lesion under direct visualization. I then injected 4 cc of Lymphazurin blue in the size of breast for 5 minutes. The breast was then sterilely prepped and draped in the usual fashion. Local was injected in the upper outer quadrant elliptical incision was made I was able to dissect around the previous biopsy site I used my Kopan's wire as my guide and electrocautery and went completely around the lesion and sent it to x-ray for a photograph. I marked my specimen double long medial single long inferiorly double short posteriorly and wiring skin laterally. I irrigated out the wound I saw blue tracts going into the axillary area made a determination that I thought that was the best avenue to identify the first blue lymph node I entered the clavipectoral fascia dissected out and identified a blue lymph node used the gamma counter it was in the 50 range with a background being 0 as a harmonic dissector remove this lymph node and sent to pathology for frozen section which did confirm a blue lymph node. I irrigated out the wound I brought the subcu together with 2-0 Vicryl deep dermis with 3-0 Vicryl then a running 4-0 Monocryl. Dermabond was applied sterile dressings were applied and the patient tolerated the procedure well. I did inspect the specimen in pathology and I did have a margin around it. - Admit VTE Documentation VTE Present on Admission: No VTE Mechan Device Prophylaxis: SCD's VTE Pharm Prophylaxis ordered?: No Reason prophylaxis not ordered:: Treatment Not Indicated
[2018-11-26] MEDS: Cefazolin 2 GM in 0.9% Normal Saline 100 ML IV (13:48)
[2018-11-26] MEDS: Bupivacaine Mpf 0.5% 30 ML VIAL (14:08)
--- NOTE | 2018-11-26 14:27 | BI_ITS ---
SURGICAL BREAST SPECIMEN RADIOGRAPH CLINICAL: Document presence of tissue clip marker in biopsy specimen. FINDINGS: Specimen shows presence of tissue clip marker. Electronically Signed: Dashawn Rowe, at 14:51 EDT , Service support , BI/Breast Biopsy Specimen
[2018-11-26] MEDS: Atorvastatin Calcium 20 MG Tablet PO (21:14)
[2018-11-27] MEDS: Lactated Ringers 1,000 ML 60 ML IV (04:25)
--- NOTE | 2018-11-27 08:34 | PCM.PN.SRG ---
Patient Problems: Active and Suspected Problems (Last Reviewed 11/13/18 @ 15:51 by Sachin Huang MD) Malignant neoplasm of upper-outer quadrant of right female breast (Acute) Subjective: Patient evaluated resting comfortably in bed. She denies nausea, vomiting. She denies incisional pain/discomfort. - Physical Exam General: Alert, Oriented x3, Cooperative Skin: Incision - Right breast- incision c/d/i. No erythema or infection noted. Op-site intact Vital Signs Temp Pulse Resp BP Pulse Ox 98.3 F 81 16 123/68 H 95 11/26/18 21:04 11/26/18 21:04 11/26/18 21:04 11/26/18 21:04 11/26/18 21:04 Oxygen Delivery Method Room Air Weight: 229 lb 4.492 oz Body Mass Index (BMI) 37.0 Intake and Output for Last 24 Hours 11/25/18 11/26/18 11/27/18 23:59 23:59 23:59 Intake Total 605 / 930 1725 / 1725 Output Total 200 / 500 600 / 600 Balance 405 / 430 1125 / 1125 Medical Necessity - Tobacco Use Smoking Status: Never smoker Assessment/Plan All Active Problems (Last Reviewed 11/13/18 @ 15:51 by Sachin Huang MD) Malignant neoplasm of upper-outer quadrant of right female breast (Acute) Hx of resection of meningioma (Acute) History of total right hip replacement (Acute) History of total right knee replacement (TKR) (Acute) History of total left knee replacement (TKR) (Acute) Hx of cataract removal with insertion of prosthetic lens (Acute) Abnormal mammogram of right breast (Acute) Anemia (Acute) Lump of right breast (Acute) Spinal stenosis (Acute) Osteopenia (Acute) IBS (irritable bowel syndrome) (Acute) Diverticulosis of colon (Acute) Vitiligo (Acute) Arthritis (Acute) I am following this patient in conjunction with Dr. Huang S/p right lumpectomy with sentinel lymph node biopsy Ready for discharge Code Visit Inpatient E&M: [id number] Subs Hosp L1 - No charge
--- NOTE | 2018-11-27 08:53 | DCINST_ITS ---
Discharge Diet: No Restrictions Discharge Activity: May Not Drive - for 2-3 days or while taking narcotic pain meds. May shower in (days): 1 Lifting Restrictions: 10 pounds for 1 week. Call your doctor if your incision/area has: Continuous Slow Oozing, Sudden In creased Bleeding Call your doctor if you observe: Fever of 101 or Higher Suture Line Care: Avoid Pulling/Pushing, Avoid Pinching/Bending Remove Dressing in (days):: 1 - Remove bulky dressing tomorrow. May leave any opsite dressing for 3-4 days. Keep dressing in place until your follow-up appointment. Cleanse incision/area with: Soap & Water Additional Dressing/Incision Instructions:: Remove bulky dressing tomorrow. May leave any opsite dressing for 3-4 days. Keep dressing in place until your follow-up appointment. Additional Instructions: May remove op-site in 3 days or leave on until appointment. Continue to wear the post-surgical bra without any extra padding until we see you in the office. Allergies/Adverse Reactions: Allergies Beef Containing Products Adverse Reaction (Verified 11/22/18 13:15) Other hydrochlorothiazide [From Diovan HCT] Adverse Reaction (Verified 11/22/18 13:15) Other levofloxacin [From Levaquin] Adverse Reaction (Verified 11/22/18 13:15) Mucosal lesions pramipexole di-HCl [From Mirapex] Adverse Reaction (Verified 11/22/18 13:15) Unknown prednisone Adverse Reaction (Verified 11/22/18 13:15) Chest tightness tramadol Adverse Reaction (Verified 11/22/18 13:15) Other valsartan [From Diovan HCT] Adverse Reaction (Verified 11/22/18 13:15) Other Medications to take at Discharge Amlodipine [Norvasc] 5 mg PO DAILY 12/23/14 Levothyroxine [Synthroid] 150 mcg PO DAILY 12/23/14 Valsartan [Diovan] 160 mg PO DAILY 12/23/14 Clidinium/Chlordiazepoxide [Librax] 2.5 - 5 mg PO PRN PRN 12/27/14 Ergocalciferol [Vitamin D] 50,000 unit PO Q7D 12/27/14 Levothyroxine [Synthroid] 300 mcg PO FAM 12/27/14 Lutein 20 mg PO DAILY 12/27/14 Ubiquinol 100 mg PO DAILY 12/27/14 Diclofenac Sodium [Voltaren] 0 gm TOPICAL PRN PRN 04/14/16 Tizanidine HCl [Zanaflex] 4 mg PO DAILY 04/14/16 Cyanocobalamin [Vitamin B12] 500 mcg PO QODAY 10/04/18 Meloxicam [Mobic] 15 mg PO DAILY 10/04/18 acetaminophen 325 mg capsule 325 mg PO Q6H PRN 11/01/18 clotrimazole 1 % topical cream 1 applic TOPICAL BID PRN 11/01/18 omeprazole 40 mg capsule,delayed release 40 mg PO DAILY 11/01/18 quinine 260 mg tablet 250 mg PO QHS PRN tab 11/01/18 Aspirin [Aspir-Low] 81 mg PO QHS 11/22/18 Lactobacillus Combo No.11 [Probiotic] 1 ea PO DAILY 11/22/18 Rosuvastatin Calcium [Crestor] 10 mg PO QHS 11/22/18 Oxycodone HCl/Acetaminophen [Percocet 5/325] 1 - 2 tab PO Q4H PRN PRN 6 Days #30 tab 11/26/18 Oxycodone HCl/Acetaminophen [Percocet 5/325] 1 - 2 tab PO Q4H PRN PRN 6 Days #30 tab 11/26/18 The following prescriptions were given: Oxycodone HCl/Acetaminophen [Percocet 5/325] 1 - 2 tab PO Q4H PRN PRN 6 Days #30 tab PRN Reason: Pain Prescription Printed Oxycodone HCl/Acetaminophen [Percocet 5/325] 1 - 2 tab PO Q4H PRN PRN 6 Days #30 tab PRN Reason: Pain Prescription Printed Primary Care Physician: Kristine Moncada DO [Primary Care Provider] - Please Follow Up With: Karla Gould PA-C - [phone] When: 7-10 days Proposed Discharge Date: 11/27/18
[2018-11-27 08:55] VITALS: BP 143/88; PULSE 78; RESP 18; TEMP 36.7; O2SAT 99
== END 2018-11-27 09:51 | disposition home or self-care (01) ==
LOC: SDC 11:50 → AC 12:02 → MS3 16:19
PROVIDERS: Family Provider Internal Medicine; PCP Internal Medicine; Referring Provider Surgery; Visit Provider Surgery
PROC: (CPT 19301; principal; 2018-11-26 13:45)
DX: C50.411 Malignant neoplasm of upper-outer quadrant of right female breast (principal); Z17.0 Estrogen receptor positive status [ER+]; I10 Essential (primary) hypertension; E03.9 Hypothyroidism, unspecified; K58.9 Irritable bowel syndrome, unspecified; E78.00 Pure hypercholesterolemia, unspecified; M19.90 Unspecified osteoarthritis, unspecified site; L80 Vitiligo; M85.80 Other specified disorders of bone density and structure, unspecified site; K21.9 Gastro-esophageal reflux disease without esophagitis; E66.9 Obesity, unspecified; Z68.37 Body mass index [BMI] 37.0-37.9, adult; Z78.0 Asymptomatic menopausal state; Z88.1 Allergy status to other antibiotic agents; Z88.8 Allergy status to other drugs, medicaments and biological substances; Z86.2 Personal history of diseases of the blood and blood-forming organs and certain disorders involving the immune mechanism; Z86.011 Personal history of benign neoplasm of the brain; Z96.641 Presence of right artificial hip joint; Z96.653 Presence of artificial knee joint, bilateral
CPT/HCPCS: 19301; 38525; 38900; 38792; 76098; 88305; 88307; 88331; 88341; 88342; J7120; J2405; Q9968

== ENCOUNTER → 2019-07-31 13:24 | Outpatient (CLI) | payer MEDICARE, SELFPAY ==
[2018-11-13 13:37] VITALS: BMI 35.5
[2018-12-24 12:48] VITALS: BMI 36.9
[2019-03-19 12:08] VITALS: BMI 37.6
--- NOTE | 2019-07-31 13:25 | CT_ITS ---
STUDY: CT CHEST WITH CONTRAST REASON FOR EXAM: Female, 78 years old. BREAST CA FOLLOW UP RADIATION DOSAGE (If Supplied By Facility): CTDIvol = ( 13.69 ) mGy, DLP = ( 703.32 ) mGycm TECHNIQUE: Transaxial imaging was performed following intravenous administration of IV 100ML ISOVUE 300. Individualized dose optimization techniques were used for this CT. COMPARISON: None. FINDINGS: There is hyperinflation of the lungs consistent with chronic obstructive lung disease (COPD). There are no infiltrates or effusions. There is an indeterminate 5 mm noncalcified nodule in the medial right lower lobe, axial image 70. Recommend follow-up in 6 months. No effusions. There is no demonstrated pleural abnormality. Normal heart and pericardium. Normal mediastinum. Normal hilar regions. Normal enhanced pulmonary arteries. Normal aorta arch and descending thoracic aorta. There are multi-level degenerative changes of the thoracic spine. There is no demonstrated abnormality of the visualized upper abdomen. CT/Chest WITH Contrast IMPRESSION: Indeterminate 5 mm right lower lobe nodule. Follow-up recommended. COPD. No other significant abnormalities. Electronically Signed: Tod Lamas MD at 18:32 EDT , Service support ,
== END ==
PROVIDERS: Family Provider Internal Medicine; PCP Internal Medicine; Referring Provider Internal Medicine Hematology & Oncology; Visit Provider Internal Medicine Hematology & Oncology
DX: R91.8 Other nonspecific abnormal finding of lung field (principal)
CPT/HCPCS: 71260; Q9967

== ENCOUNTER → 2019-10-30 09:16 | Outpatient (CLI) | payer MEDICARE, SELFPAY ==
[2018-12-24 12:48] VITALS: BMI 36.9
[2019-08-06 13:09] VITALS: BMI 37.7
[2019-08-16 13:09] VITALS: BMI 37.7
--- NOTE | 2019-10-30 09:17 | BI_ITS ---
MAMMOGRAPHY - BILATERAL DIAGNOSTIC REASON FOR EXAM: Female, 79 years old. BILAT DX FOR F/U FROM BREAST CA DX 2019 - PERSONAL HX @ AGE 79 (2019) WITH RT LUMPECTOMY WITH RADIATION AND INHIBITOR TX - FAM HX OF MOTHER @ AGE 94 PERTINENT HISTORY: Personal history of right breast cancer. TECHNIQUE: Digital bilateral breast daniel (3D mammographic acquisition) in the CC and MLO projections. 2-D mediolateral oblique (MLO) and craniocaudad (CC) views of both breasts were obtained. CAD: Full Field Digital Mammography with Computer Added Detection was performed. COMPARISON: None. FINDINGS: Breast Composition: There are scattered areas of fibroglandular density. There is a scar at the lumpectomy site in the right breast. There are no new dominant masses . There are no suspicious calcifications. No other significant abnormalities are identified. BI/DIAG MAMM W/CAD, BILAT IMPRESSION: Stable bilateral diagnostic mammogram. One year follow-up recommended. (A) ASSESSMENT CATEGORY: BIRADS Category 2: Benign. A letter regarding these results will be sent to the patient by the facility within 30 days. Approximately 10% of breast cancers are not detected by mammography. A normal mammogram should not delay biopsy of a clinically suspicious abnormality. Electronically Signed: Janet Masterson, at 9:47 EDT Tel , Service support ,
== END ==
PROVIDERS: PCP Internal Medicine; Referring Provider Student in an Organized Health Care Education/Training Program; Visit Provider Student in an Organized Health Care Education/Training Program
DX: R92.2 Inconclusive mammogram (principal); Z85.3 Personal history of malignant neoplasm of breast; Z80.3 Family history of malignant neoplasm of breast
CPT/HCPCS: 77062; 77066; G0279

== ENCOUNTER → 2020-01-14 13:54 | Outpatient (CLI) | payer MEDICARE, SELFPAY ==
[2018-12-24 12:48] VITALS: BMI 36.9
[2019-11-14 13:32] VITALS: BMI 38.7
[2020-01-13 14:19] VITALS: BMI 38.7
--- NOTE | 2020-01-14 13:56 | ECHOCS_ITS ---
Reason For Study: Abnormal EKG Procedure This was a 2D Doppler, Color Flow transthoracic echocardiogram. Technically difficult study, contrast injection performed. Unable to perform strain analysis due to needed use of Definity. The study was technically difficult. Contrast injection was performed. Exam performed in department. Left Ventricle Normal LV size. Left ventricular systolic function is normal. The estimated ejection fraction is 70 %. Diastolic function is indeterminate. No regional wall motion abnormalities noted. Right Ventricle Normal RV size. Normal systolic function. Atria Normal left atrium. Normal right atrium. No doppler evidence for ASD. Mitral Valve There is mild to moderate mitral annular calcification. Extension of the mitral annular calcification onto the posterior mitral valve leaflet. Trivial mitral valve insufficiency. Tricuspid Valve Normal tricuspid valve. Trivial tricuspid valve insufficiency. Right ventricular systolic pressure estimated to be 34 mmHg. Aortic Valve Trisinus/trileaflet aortic valve. Mild diffuse aortic valve thickening. Pulmonic Valve The pulmonic valve is not well visualized. Great Vessels Normal sized aortic root. Pericardium/Pleural No pericardial effusion. Medication 22 gauge I.V. with prn adaptor inserted into right arm. Diluted definity 3ml given slow IV push to enhance endocardial definition. MMode/2D Measurements & Calculations LVIDd: 4.6 cm IVSd: 1.3 cm Ao root diam: 3.3 cm LVIDs: 2.5 cm LVPWd: 1.3 cm LA dimension: 4.0 cm FS: 45.7 % LAV(MOD-bp): 47.3 ml LA A4 area: 17.9 cm2 RA A4 area: 13.6 cm2 LAV(MOD-bp) Indexed: 22.1 ml/m2 LAV(MOD-sp2): 46.4 ml LAV(MOD-sp4): 47.6 ml Time Measurements MV dec time: 0.19 sec Doppler Measurements & Calculations MV E max luciano: 106.8 cm/sec Lat Peak E' Luciano: 7.0 cm/sec Med Peak E' Luciano: 7.9 cm/sec MV A max luciano: 161.2 cm/sec E/E' lat: 15.2 E/E' med: 13.4 MV E/A: 0.66 MV V2 max: 194.5 cm/sec MV P1/2t max luciano: 131.0 cm/sec Ao V2 max: 184.9 cm/sec MV max P.1 mmHg MV P1/2t: 100.1 msec Ao max P.7 mmHg MV V2 mean: 102.2 cm/sec MV dec slope: 383.1 cm/sec2 MV mean P.0 mmHg MV V2 VTI: 41.2 cm MVA(P1/2t): 2.2 cm2 LV V1 max: 126.7 cm/sec PA V2 max: 126.2 cm/sec TR max luciano: 278.8 cm/sec LV V1 max P.4 mmHg TR max P.1 mmHg Interpretation Summary The study was technically difficult. Contrast injection was performed. Left ventricular systolic function is normal. The estimated ejection fraction is 70 %. There is mild to moderate mitral annular calcification. Extension of the mitral annular calcification onto the posterior mitral valve leaflet. Trivial mitral valve insufficiency. Trivial tricuspid valve insufficiency. Mild diffuse aortic valve thickening. Right ventricular systolic pressure estimated to be 34 mmHg. Diastolic function is indeterminate. Ordering Physician: Kristine Moncada Referring Physician: Kristine Moncada Performed By: Michael Lewis RCS
== END ==
PROVIDERS: PCP Internal Medicine; Referring Provider Internal Medicine; Visit Provider Internal Medicine
DX: R94.31 Abnormal electrocardiogram [ECG] [EKG] (principal)
CPT/HCPCS: 93306; Q9957; A4216; C8929

== ENCOUNTER → 2020-01-21 09:35 | Outpatient (CLI) | payer MEDICARE, SELFPAY ==
[2018-12-24 12:48] VITALS: BMI 36.9
[2020-01-13 14:19] VITALS: BMI 38.7
--- NOTE | 2020-01-21 09:38 | NM_ITS ---
CLINICAL: 79-year-old female with reported history of carcinoma of the breast. WHOLE BODY 99m Tc MDP RADIONUCLIDE BONE SCINTIGRAPHY COMPARISON: None available FINDINGS: Following the intravenous administration of 26.8 mCi of 99m Tc MDP, whole body bone images reveal: 1. Focal increased tracer concentration is observed in the lower cervical spine posteriorly on the right, third lumbar vertebra posteriorly on the right, left posterior sacrum, the left sacroiliac joint, the sternoclavicular and glenohumeral compartments of the left shoulder, patellofemoral compartments of both knees, bilateral midfoot. 2. The remaining skeletal structures are scintigraphically unremarkable with normal-appearing renal images and urinary bladder activity identified. Presumably an asymptomatic right hip arthroplasty is demonstrated with mild increased tracer concentration noted in the proximal femoral component most consistent with normal postsurgical change. Right and left knee arthroplasties are identified with its evidence of significant facilitated tracer uptake observed. NM/Bone Scan Whole Body IMPRESSION: 1. The increase in radiopharmaceutical concentration identified in the cervical and lumbar spine, sacrum, left sacroiliac joint, left shoulder, patellofemoral compartments of both knees (in the absence of patellar hardware placement), the right-left midfoot is most consistent with degenerative arthritis. 2. There is no definitive typical scintigraphic evidence of diffuse axial skeletal metastatic disease on the current examination. Electronically Signed: Lv Carver DO at 22:33 EST Tel , Service support ,
== END ==
PROVIDERS: PCP Internal Medicine; Referring Provider Nurse Practitioner Family; Visit Provider Nurse Practitioner Family
DX: M89.8X2 Other specified disorders of bone, upper arm (principal); R10.2 Pelvic and perineal pain
CPT/HCPCS: 78306

== ENCOUNTER → 2020-02-17 12:59 | Outpatient (CLI) | payer MEDICARE, SELFPAY ==
[2018-12-24 12:48] VITALS: BMI 36.9
[2019-11-14 13:32] VITALS: BMI 38.7
[2020-01-13 14:19] VITALS: BMI 38.7
--- NOTE | 2020-02-17 13:05 | CT_ITS ---
STUDY: CT CHEST WITH CONTRAST REASON FOR EXAM: Female, 79 years old. LUNG NODULE 6 MON F/U, HX-BREAST CA, HAD RAD TX, HX-HTN RADIATION DOSAGE (If Supplied By Facility): CTDIvol = ( 19.39 ) mGy, DLP = ( 566.30 ) mGycm TECHNIQUE: Transaxial imaging was performed following intravenous administration of IV 100mL Isovue-300. Multiplanar coronal and sagittal images were reformatted. Individualized dose optimization techniques were used for this CT. COMPARISON: Comparison is made with prior study dated 07/31/2019. FINDINGS: Stable benign-appearing bilateral axillary lymph nodes. Hyperinflation. Decreased bronchovascular markings in the upper lobes suggestive of emphysematous change. There is a 5.8 mm noncalcified nodule in the superior segment of the right lower lobe medially. This has increased slightly in size as compared to prior study. This is seen on axial image #67. A repeat 6 month follow-up is recommended. There is no demonstrated pleural abnormality. There are calcifications of the coronary arteries. There are multiple small lymph nodes within the mediastinum, which are normal in size and morphology most compatible with reactive lymph hyperplasia. Normal hilar regions. Normal enhanced pulmonary arteries. Normal aorta arch and descending thoracic aorta. There are multi-level degenerative changes of the thoracic spine. Dextroscoliosis. Small hiatal hernia. CT/Chest WITH Contrast IMPRESSION: Slight increase in size of the previously seen noncalcified nodule in the medial aspect of the superior segment of the right lower lobe. A repeat 6 month follow-up is recommended. Electronically Signed: Dashawn Rowe, at 15:17 EST , Service support ,
== END ==
PROVIDERS: PCP Internal Medicine; Referring Provider Internal Medicine Hematology & Oncology; Visit Provider Internal Medicine Hematology & Oncology
DX: R91.8 Other nonspecific abnormal finding of lung field (principal)
CPT/HCPCS: 71260; Q9967

== ENCOUNTER → 2020-09-16 13:08 | Outpatient (CLI) | payer MEDICARE, SELFPAY ==
[2018-12-24 12:48] VITALS: BMI 36.9
[2020-08-25 14:45] VITALS: BMI 35.8
--- NOTE | 2020-09-16 13:11 | CT_ITS ---
STUDY: CT CHEST WITH CONTRAST REASON FOR EXAM: Female, 79 years old. Two-year history of a lung nodule. Follow-up examination. Patient has a history of breast cancer. RADIATION DOSAGE (If Supplied By Facility): CTDIvol = ( 13.24 ) mGy, DLP = ( 474.79 ) mGycm TECHNIQUE: Transaxial imaging was performed following intravenous administration of IV 100mL Isovue-300. Multiplanar coronal and sagittal images were reformatted. Individualized dose optimization techniques were used for this CT. COMPARISON: Comparison is made with prior study dated 02/17/2020. FINDINGS: Stable small benign-appearing bilateral axillary lymph nodes. Hyperinflation. Mild degree of emphysematous changes. Stable 5.8 mm noncalcified nodule in the superior segment of the right lower lobe along its medial aspect as seen on axial image #65 and coronal image #172. There is no demonstrated pleural abnormality. There are calcifications of the coronary arteries. There are multiple small lymph nodes within the mediastinum, which are normal in size and morphology most compatible with reactive lymph hyperplasia. Normal hilar regions. Normal enhanced pulmonary arteries. Normal aorta arch and descending thoracic aorta. There are multi-level degenerative changes of the thoracic spine. Dextroscoliosis. Small hiatal hernia. Fatty infiltration of the liver. CT/Chest WITH Contrast IMPRESSION: Stable examination. Electronically Signed: Dashawn Rowe MD at 14:09 EDT , Service support ,
[2020-09-16 13:26] LABS: CREATININE FINGERSTICK 1.2 mg/dL (0.55-1.02)
== END ==
PROVIDERS: PCP Internal Medicine; Referring Provider Internal Medicine Hematology & Oncology; Visit Provider Internal Medicine Hematology & Oncology
DX: R91.8 Other nonspecific abnormal finding of lung field (principal)
CPT/HCPCS: 36415; 71260; 80048; 96360; J7040; Q9967; A4216

== ENCOUNTER → 2020-11-03 15:38 | Outpatient (CLI) | payer MEDICARE, SELFPAY ==
[2018-12-24 12:48] VITALS: BMI 36.9
[2020-02-24 14:22] VITALS: BMI 38.5
--- NOTE | 2020-11-03 15:41 | BI_ITS ---
MAMMOGRAPHY - BILATERAL SCREENING REASON FOR EXAM: Female, 80 years old. Routine annual screening examination. PERTINENT HISTORY: Personal history of breast cancer. Prior right lumpectomy and radiation therapy. Mother with breast cancer. TECHNIQUE: Digital bilateral breast elsy (3D mammographic acquisition) in the CC and MLO projections. 2-D mediolateral oblique (MLO) and craniocaudad (CC) views of both breasts were obtained. CAD: Full Field Digital Mammography with Computer Added Detection was performed. COMPARISON: Comparison is made with prior examination in 10/30/2019 and 11/26/2018. FINDINGS: Breast Composition: There are scattered areas of fibroglandular density. There are no dominant masses or suspicious calcifications. Stable architectural distortion and deformity of the upper lateral aspect of the right breast and keep with prior lumpectomy. A tissue clip marker is once again seen in the upper central portion of the right breast. No other significant abnormalities are identified. There has been no significant change since the prior study. BI/SCRN MAMM (CAD)W/ELSY BILAT IMPRESSION: Stable bilateral screening mammogram. Yearly follow-up mammogram recommended. (A) ASSESSMENT CATEGORY: BIRADS Category 2: Benign. A letter regarding these results will be sent to the patient by the facility within 30 days. Approximately 10% of breast cancers are not detected by mammography. A normal mammogram should not delay biopsy of a clinically suspicious abnormality. [id number] Electronically Signed: Dashawn Rowe MD at 8:34 EDT , Service support ,
--- NOTE | 2020-11-03 16:03 | BD_ITS ---
STUDY: DUAL ENERGY X-RAY ABSORPTIOMETRY / DXA REASON FOR EXAM: Female, 80 years old. OSTEOPENIA TECHNIQUE: Bone Mineral Density (BMD) measurements of lumbar spine and left hip were obtained. COMPARISON: Comparison is made with prior study dated 06/26/2018. FINDINGS: Lumbar Spine (L1-L4): g/cm2 (0.994) / T-score (-0.2) / Z-score (2.3) Findings are suggestive of normal bone density with a low fracture risk. Left Femur Total: g/cm2 (0.824) / T-score (-1.0) / Z-score (1.0) Left Femoral Neck: g/cm2 (0.870) / T-score (0.2) / Z-score (2.4) The T-Scores on the most recent prior examination were: Lumbar Spine (L1-L4): There has been worsening of bone density since the previous examination. Left Femur Total: which represents an improvement of 13.4%. BD/Dexa Bone Density Study IMPRESSION: The patient is considered normal as outlined below according to World Rohan Organization (WHO) criteria with a low fracture risk. Reference Information: The T-score is the number of standard deviations above or below the standard which is normal for young adults at their peak bone mineral density. The World Health Organization (WHO) interprets the T-scores as follows: Above -1 Normal bone density Between -1 and -2.5 Osteopenia Equal to / or below -2.5 Osteoporosis As a practical clinical guideline, osteopenia may be graded as follows: Mild -1 through -1.5 Moderate -1.6 through -2.0 Severe -2.1 through -2.4 The Z-score is the number of standard deviations above or below age-matched controls. A Z-score of less than -1.5 would be considered abnormal. References: 1. NIH Osteoporosis and Related Bone Diseases www osteo.org 2. International Society for Clinical Densitometry www iscd.org 3. National Osteoporosis Foundation www nof.org Electronically Signed: Dashawn Rowe MD at 15:40 EDT , Service support ,
== END ==
PROVIDERS: PCP Internal Medicine; Referring Provider Internal Medicine Hematology & Oncology; Visit Provider Internal Medicine Hematology & Oncology
DX: M85.89 Other specified disorders of bone density and structure, multiple sites (principal); Z12.31 Encounter for screening mammogram for malignant neoplasm of breast; Z85.3 Personal history of malignant neoplasm of breast; Z80.3 Family history of malignant neoplasm of breast
CPT/HCPCS: 77063; 77067; 77080

== ENCOUNTER → 2021-07-21 | Outpatient (CLI) | payer MEDICARE, SELFPAY ==
[2018-12-24 12:48] VITALS: BMI 36.9
--- NOTE | 2021-07-21 13:10 | CT_ITS ---
STUDY: CT ABDOMEN AND PELVIS WITH CONTRAST REASON FOR EXAM: Female, 80 years old. Right sided abdominal pain, h/o breast cancer RADIATION DOSAGE (If Supplied By Facility): CTDIvol = ( 17.22 ) mGy, DLP = ( 1113.75 ) mGycm TECHNIQUE: Transaxial images were obtained from the dome of the diaphragm to the symphysis pubis with oral contrast. Oral and amp; IV Readi-CAT and amp; 100mL Isovue-300 was administered. Sagittal and coronal images were reconstructed. Individualized dose optimization techniques were used for this CT. COMPARISON: Comparison is made with prior examination of 09/22/2014. FINDINGS: The visualized lung bases are unremarkable. Coronary artery calcification. There is decreased attenuation of the liver consistent with steatosis. Normal gallbladder and extrahepatic biliary system. Normal spleen. Normal pancreas. Normal bilateral adrenal glands. Normal right kidney. Normal left kidney. Normal visualized stomach. Normal small intestine. Normal colon. The appendix is visualized and appears normal. Normal abdominal aorta. Normal inferior vena cava. Normal retroperitoneum. Normal urinary bladder. Normal abdominal wall. There are diffuse degenerative changes of the visualized lumbar spine. Status post right total hip replacement. CT/Abdomen/Pelvis WITH Contrast IMPRESSION: Fatty infiltration of the liver. Electronically Signed: Dashawn Rowe MD at 14:07 EDT ,
[2021-07-21 13:15] LABS: CREATININE FINGERSTICK 1.2 mg/dL (0.55-1.02)
== END | disposition home or self-care (01) ==
LOC: CT 12:53
PROVIDERS: PCP Internal Medicine; Referring Provider Student in an Organized Health Care Education/Training Program; Visit Provider Student in an Organized Health Care Education/Training Program
DX: R10.9 Unspecified abdominal pain (principal); I10 Essential (primary) hypertension; Z85.3 Personal history of malignant neoplasm of breast
CPT/HCPCS: 74177; Q9967

== ENCOUNTER → 2021-09-03 | Outpatient (CLI) | payer MEDICARE, SELFPAY ==
[2018-12-24 12:48] VITALS: BMI 36.9
--- NOTE | 2021-09-03 15:02 | VDLE_ITS ---
Reason For Study: LEG SWELLING RIGHT LEFT CFV is compressible, spontaneous, phasic, GSV is normal. competent and demonstrates normal CFV is compressible, spontaneous, phasic, augmentation. competent, and demonstrates normal Procedure augmentation. Exam performed in department. FV is compressible, spontaneous, phasic, This is a venous duplex using B-mode, color competent and demonstrates normal flow and spectral Doppler. augmentation. A preliminary report was called and/or faxed POP V is compressible, spontaneous, phasic, to Dr. Moncada. competent and demonstrates normal augmentation. T/P Trunk is compressible. PTV is compressible. LT PerV is compressible. VL/Venous Duplex US, Unilateral Interpretation Summary There is no evidence of left lower extremity deep vein thrombosis. Left great s aphenous vein appears patent and compressible segmentally. Normal flow patterns right common femoral vein Ordering Physician: Kristine Moncada Referring Physician: Kristine Moncada Performed By: David Iqbal
== END | disposition home or self-care (01) ==
LOC: CVS 15:00
PROVIDERS: PCP Internal Medicine; Referring Provider Internal Medicine; Visit Provider Internal Medicine
DX: M79.89 Other specified soft tissue disorders (principal)
CPT/HCPCS: 93971

== ENCOUNTER → 2021-11-22 | Outpatient (CLI) | payer MEDICARE, SELFPAY ==
[2018-12-24 12:48] VITALS: BMI 36.9
--- NOTE | 2021-11-22 14:57 | BI_ITS ---
MAMMOGRAPHY - BILATERAL SCREENING REASON FOR EXAM: Female, 81 years old. Routine annual screening examination. PERTINENT HISTORY: Personal history of breast cancer. Prior right lumpectomy and radiation. Mother with breast cancer. TECHNIQUE: Digital bilateral breast elsy (3D mammographic acquisition) in the CC and MLO projections. 2-D mediolateral oblique (MLO) and craniocaudad (CC) views of both breasts were obtained. CAD: Full Field Digital Mammography with Computer Added Detection was performed. COMPARISON: Comparison is made with prior study 11/03/2020 and 10/30/2019. FINDINGS: Breast Composition: There are scattered areas of fibroglandular density. There are no dominant masses or suspicious calcifications. Once again, the patient is status post lumpectomy in the upper lateral aspect of the right breast with postoperative scarring. A tissue clip marker is once again seen in the upper central portion of the right breast. No other significant abnormalities are identified. There has been no significant change since the prior study. BI/SCRN MAMM (CAD)W/ELSY BILAT IMPRESSION: Stable bilateral screening mammogram. Yearly follow-up mammogram recommended. (A) ASSESSMENT CATEGORY: BIRADS Category 2: Benign. A letter regarding these results will be sent to the patient by the facility within 30 days. Approximately 10% of breast cancers are not detected by mammography. A normal mammogram should not delay biopsy of a clinically suspicious abnormality. [id number] Electronically Signed: Dashawn Rowe MD at 8:46 EDT ,
== END | disposition home or self-care (01) ==
LOC: OPBI 14:56
PROVIDERS: PCP Internal Medicine; Visit Provider Student in an Organized Health Care Education/Training Program
DX: Z12.31 Encounter for screening mammogram for malignant neoplasm of breast (principal); Z80.3 Family history of malignant neoplasm of breast
CPT/HCPCS: 77063; 77067

== ENCOUNTER → 2022-03-16 | Outpatient (CLI) | payer MEDICARE, SELFPAY ==
[2018-12-24 12:48] VITALS: BMI 36.9
== END | disposition home or self-care (01) ==
LOC: LABSPEC 15:40
PROVIDERS: PCP Internal Medicine; Visit Provider Internal Medicine
DX: M79.89 Other specified soft tissue disorders (principal)

== ENCOUNTER → 2022-03-18 | Outpatient (CLI) | payer MEDICARE, SELFPAY ==
[2018-12-24 12:48] VITALS: BMI 36.9
--- NOTE | 2022-03-18 15:00 | VDLE_ITS ---
Reason For Study: Swelling RIGHT LEFT GSV is normal. GSV is normal. CFV is compressible, spontaneous, phasic, CFV is compressible, spontaneous, phasic, competent and demonstrates normal competent, and demonstrates normal augmentation. augmentation. FV is compressible, spontaneous, phasic, FV is compressible, spontaneous, phasic, competent and demonstrates normal competent and demonstrates normal augmentation. augmentation. POP V is compressible, spontaneous, phasic, POP V is compressible, spontaneous, phasic, competent and demonstrates normal competent and demonstrates normal augmentation. augmentation. T/P Trunk is compressible. T/P Trunk is compressible. PTV is compressible. PTV is compressible. RT PerV is compressible. LT PerV is compressible. Procedure This is a venous duplex using B-mode, color flow and spectral Doppler. Exam performed in department. The exam was diagnostic. Technically difficult study due to body habitus. A preliminary report was called and/or faxed to Dr. Moncada. VL/Venous Duplex US - Manuel Extrem Interpretation Summary Deep veins of the lower extremities are bilaterally patent and compressible seg mentally. There is no evidence of deep vein thrombosis on either side. Valvular competence appears in tact within the proximal deep venous systems bilaterally. The great saphenous veins appear bila terally patent and compressible segmentally. Ordering Physician: Kristine Moncada Referring Physician: Kristine Moncada D.O. Performed By: David Iqbal, RVT
== END | disposition home or self-care (01) ==
LOC: CVS 14:58
PROVIDERS: PCP Internal Medicine; Visit Provider Internal Medicine
DX: M79.89 Other specified soft tissue disorders (principal)
CPT/HCPCS: 93970

== ENCOUNTER → 2022-06-02 | Outpatient (CLI) | payer MEDICARE, SELFPAY ==
[2018-12-24 12:48] VITALS: BMI 36.9
--- NOTE | 2022-06-02 08:51 | RDU_ITS ---
Reason For Study: HTN Right Renal Artery Left Renal Artery Right renal artery ostium 94.2/21.2 Left renal artery ostium 65/13.9 RSV/EDV. PSV/EDV. Right renal artery proximal Left renal artery proximal PSV/EDV 150.9/26.7 PSV/EDV. 79.6/15.7 . Right renal artery mid 121.6/19.4 Left renal artery mid 92.4/12.1 PSV/EDV. PSV/EDV . Right renal artery distal Left renal artery distal 73.2/11.2 106.4/17.9 PSV/EDV. PSV/EDV. Right RAR 2.23. Left RAR 1.36. Right Renal Parenchyma Left Renal Parenchyma Upper Pole Medula 30.5/6.5 PSV/EDV. Left upper pole medulla 23.5/6.3 Right upper pole medulla EDR 0.2 . PSV/EDV . Right upper pole medulla R.I. Left upper pole medulla EDR 0.3 . 0.79 . Left upper pole medulla R.I. 0.73 . Upper Advid Cortx 21.2/7.1 PSV/EDV. UP Cortex 17.3/4.4 PSV/EDV. Right upper pole cortex EDR 0.3 . Left upper pole cortex EDR 0.3 . Right upper pole cortex R.I. 0.66 . Left upper pole cortex R.I. 0.74 . Right lower Pole medulla 28/6.5 Left lower Pole medulla 22.2/6.3 PSV/EDV . PSV/EDV . Right lower pole medulla EDR 0.2 . Left lower pole medulla EDR 0.3 . Right lower pole medulla R.I. Left lower pole medulla R.I. 0.72 . 0.77 . Lower Pole Cortx 16.7/5 PSV/EDV. Lower Pole Cortex 18.8/4.7 PSV/EDV. Left lower pole cortex EDR 0.3 . Right lower pole cortex EDR 0.2 . Left lower pole cortex R.I. 0.70 . Right lower pole cortex R.I. 0.75 . Left Renal Hilar Right Renal Hilar LT Hilar avg 74.8/12.7 PSV/EDV . Right Hilar avg 48.3/9 PSV/EDV. Left hilar acceleration time 60 Right hilar acceleration time 50 m/sec. m/sec. Left Renal Dimensions Right Renal Dimensions Left kidney size 9.42 cm . Right kidney size 9.73 cm . Left cortical dimension 1.43 cm . Right cortical dimension 1.28 cm . Aorta Proximal abdominal aorta 1.53 x 1.51 cm . Proximal abdominal aorta peak systolic velocity is 67.7 cm/sec . Distal abdominal aorta 1.66 x 1.66 cm . Distal abdominal aorta peak systolic velocity is 108.9 cm/sec . VL/Renal Artery Duplex Ultrasound Interpretation Summary Maximal aortic diameter is distally at 1.66 x 1.66 cm in diameter which is norm al. Flow rate distally just slightly elevated at 108 cm/sec peak systolic flow of u ndetermined significance. Less than 60% stenosis of the right renal artery with maintained right renal le ngth of 9.73 cm Less than 60% stenosis left renal artery with maintained left renal length of 9 .42 cm Ordering Physician: Kristine Moncada Referring Physician: Kristine Moncada D.O. Performed By: Melany Mancuso RVT
== END | disposition home or self-care (01) ==
LOC: CVS 08:50
PROVIDERS: PCP Internal Medicine; Visit Provider Internal Medicine
DX: I10 Essential (primary) hypertension (principal)
CPT/HCPCS: 93975

== ENCOUNTER → 2022-07-19 | Outpatient (CLI) | payer MEDICARE, SELFPAY ==
[2018-12-24 12:48] VITALS: BMI 36.9
--- NOTE | 2022-07-19 14:33 | STRESSREP ---
Stress Test Report Date: 07/19/2022 Procedure: Pharmacologic stress nuclear imaging study Indications: Hypertension Consent: Per the patient Procedure: The patient underwent pharmacologic (Regadenoson) evaluation with a peak heart rate of 164 beats per minute (116%predicted maximal heart rate) and a peak blood pressure of 158/82 mmHg. The baseline ECG demonstrated normal sinus rhythm, right bundle branch block. EKG during lexiscan infusion revealed no significant ischemic changes. EKG post infusion revealed no significant ischemic changes [There were no cardiac dysrhythmias pretest, during pharmacologic infusion, or recovery]. [There was no complaint of chest discomfort during pharmacologic infusion or recovery]. The examination was discontinued secondary to completion of protocol. Impression: 1. Lexiscan stress test test is negative for Lexiscan infusion induced EKG changes of ischemia. 2. Lexiscan stress test test is negative for Lexiscan infusion induced chest pain. 3. Results of the nuclear portion of the test is as below Myocardial perfusion imaging study: Technique: The patient was injected with 14.7 millicuries of technetium 99m Cardiolite and subsequently rest SPECT Cardiolite nuclear imaging was obtained in the horizontal long, vertical long, and short axis views. The patient underwent pharmacologic [Regadenoson 0.4mg] evaluation. Please see above for details. The patient was injected with 44.6 millicuries of technetium 99m Cardiolite and subsequently stress SPECT Cardiolite nuclear imaging was obtained in the horizontal long, vertical long, and short axis views. A gated Cardiolite study at peak stress was obtained. Interpretation: Rest and stress SPECT Cardiolite nuclear imaging status post realignment, normalization, and attenuation correction demonstrate normal radioisotope uptake at rest. On the stress images there is mild decrease in the radioisotope uptake in the small portion of the apex. Gated images reveal no significant regional wall motion abnormalities. The reported LVEF is greater than 70%. These findings are suggestive of mild apical ischemia. Impression: 1. Mild apical ischemia cannot be excluded. 2. Estimated ejection fraction is greater than 70%. This note was generated with Pokelabo software. It may contain incorrect words, spelling, and punctuation that were not noted in checking the note before signing.
== END | disposition home or self-care (01) ==
LOC: CVS 07:15
PROVIDERS: PCP Internal Medicine; Referring Provider Internal Medicine; Visit Provider Internal Medicine
DX: R42 Dizziness and giddiness (principal); R06.09 Other forms of dyspnea
CPT/HCPCS: 78452; 93017; A9500; A4216; J2785

== ENCOUNTER → 2022-08-05 | Outpatient (CLI) | payer MEDICARE, SELFPAY ==
[2018-12-24 12:48] VITALS: BMI 36.9
--- NOTE | 2022-08-05 15:00 | RAD_ITS ---
INDICATION: cad EXAMINATION/TECHNIQUE: X-RAY - XR Chest 2 Views COMPARISON: None. FINDINGS: LINES/DEVICES: None. LUNGS: No consolidation, edema or effusion. No pneumothorax. MEDIASTINUM AND CARDIOVASCULAR STRUCTURES: Cardiac silhouette not enlarged. BONES AND SOFT TISSUES: Levocurvature of the lumbar spine.. RAD/Chest PA and Lateral IMPRESSION: No radiographic evidence of acute cardiopulmonary disease. Electronically Signed: Junito Russell MD at 8:47 EDT ,
[2022-08-05 16:23] LABS: Absolute Lymphocyte Count 1.74 X10^3/uL (0.83-4.51); Absolute Neutrophil Count 4.1 X10^3/uL (2.0-7.7); Basophil# 0.07 X10^3/uL; Eosinophil# 0.28 X10^3/uL; Hematocrit 39.1 % (37-47); Hemoglobin 12.1 g/dL (12.0-15.0); Lymphocyte # 1.74 X10^3/ul (0.83-4.51); Lymphocyte % 24.8 % (19-41); Mean Corp Hgb Conc 30.9 g/dL (32-36); Mean Corpuscular Hgb 28.3 pg (27.0-32.0); Mean Corpuscular Volume 91.6 fL (81-99); Mean Platelet Vol. 10.2 fl (6.2-12.0); Monocyte# 0.79 X10^3/uL; Monocyte% 11.2 % (0-10); NRBC Flagged by Analyzer 0 % (0-5); Neutrophil # 4.13 X10^3/uL (2.7-7.7); Neutrophil % 58.7 % (47-70); Platelet Count 305 K/mm3 (150-450); RBC Distribution Width CV 14.6 % (11.6-14.6); RBC Distribution Width SD 49.1 fl (35.1-43.9); Red Blood Count 4.27 M/mm3 (4.2-5.4)
[2022-08-05 16:45] LABS: Anion Gap 5 (5-15); BUN 30 mg/dL (7-18); BUN/Creat Ratio 19.4 RATIO (10-20); Calcium,Total 10.2 mg/dL (8.5-10.1); Chloride 107 mmol/L (98-107); Creatinine, Serum 1.55 mg/dL (0.55-1.02); EST Glomerular Filtration Rate 34 mL/min (>60); Est Glom Filt Rate - Afr Amer 41 mL/min (>60); Glucose 105 mg/dL (74-106); Potassium 4.9 mmol/L (3.5-5.1); Sodium Level 140 mmol/L (136-145)
== END | disposition home or self-care (01) ==
LOC: RAD 14:59
PROVIDERS: PCP Internal Medicine; Referring Provider Internal Medicine Cardiovascular Disease; Visit Provider Internal Medicine Cardiovascular Disease
DX: R94.39 Abnormal result of other cardiovascular function study (principal); E03.9 Hypothyroidism, unspecified
CPT/HCPCS: 36415; 71046; 80048; 85025

== ENCOUNTER → 2022-08-11 | Outpatient (CLI) | payer MEDICARE, SELFPAY ==
[2018-12-24 12:48] VITALS: BMI 36.9
--- NOTE | 2022-08-11 12:53 | ECHOD_ITS ---
Reason For Study: [facility] CV FUNCTION STUDY Procedure This was a 2D Doppler, Color Flow transthoracic echocardiogram. The study was technically difficult. Exam performed in department. Left Ventricle Normal LV size. Left ventricular systolic function is normal. The estimated ejection fraction is 65 %. Stage 1 diastolic dysfunction. No regional wall motion abnormalities noted. Right Ventricle Normal RV size. Normal systolic function. Atria Normal left atrium. Normal right atrium. Mitral Valve There is moderate mitral annular calcification. Tricuspid Valve Normal tricuspid valve. Mild tricuspid valve insufficiency. Pulmonary artery systolic pressure is 34 mmHg. Aortic Valve Trisinus/trileaflet aortic valve. Pulmonic Valve The pulmonic valve is not well visualized. Great Vessels Normal aortic root. The pulmonary artery is normal size. Normal inferior vena cava. Pericardium/Pleural No pericardial effusion. MMode/2D Measurements & Calculations LVIDd: 5.5 cm IVSd: 1.1 cm Ao root diam: 3.7 cm LVIDs: 3.6 cm LVPWd: 1.2 cm RVDd: 3.6 cm FS: 34.0 % LAV(MOD-bp): 54.7 ml LVAd ap4: 30.2 cm2 LVAd ap2: 27.1 cm2 LAV(MOD-bp) Indexed: 26.2 ml/m2 LVLd ap4: 7.6 cm LVLd ap2: 7.4 cm LAV(MOD-sp2): 53.2 ml EDV(MOD-sp4): 98.5 ml EDV(MOD-sp2): 82.3 ml LAV(MOD-sp4): 53.4 ml EDV(sp4-el): 101.4 ml EDV(sp2-el): 83.9 ml LVAs ap4: 14.2 cm2 LVAs ap2: 13.0 cm2 LVLs ap4: 6.1 cm LVLs ap2: 6.2 cm ESV(MOD-sp4): 30.8 ml ESV(MOD-sp2): 23.2 ml ESV(sp4-el): 28.2 ml ESV(sp2-el): 23.1 ml EF(MOD-sp4): 68.7 % EF(MOD-sp2): 71.8 % EF(sp4-el): 72.2 % SV(MOD-sp4): 67.7 ml SV(MOD-sp2): 59.1 ml SV(sp4-el): 73.2 ml LA dimension(2D): 4.0 cm LA A4 area: 18.2 cm2 RA A4 area: 15.8 cm2 Time Measurements MV dec time: 0.26 sec Doppler Measurements & Calculations MV E max luciano: 121.4 cm/sec Lat Peak E' Luciano: 7.1 cm/sec Med Peak E' Luciano: 6.4 cm/sec MV A max luciano: 169.7 cm/sec E/E' lat: 17.1 E/E' med: 18.9 MV E/A: 0.72 MV dec slope: 463.8 cm/sec2 Ao V2 max: 177.1 cm/sec LV V1 max: 115.0 cm/sec Ao max P.6 mmHg LV V1 max P.3 mmHg Ao V2 mean: 121.7 cm/sec LV V1 mean P.5 mmHg Ao mean P.7 mmHg LV V1 mean: 73.0 cm/sec Ao V2 VTI: 46.9 cm LV V1 VTI: 27.6 cm AV (velocity ratio): 0.59 PA V2 max: 102.8 cm/sec TR max luciano: 278.0 cm/sec TR max P.9 mmHg ECHO/Echo Complete Interpretation Summary Normal LV size. Left ventricular systolic function is normal. The estimated ejection fraction is 65 %. Mild tricuspid valve insufficiency. There is moderate mitral annular calcification. Stage 1 diastolic dysfunction. Ordering Physician: Kristine Moncada Referring Physician: Kristine Moncada Performed By: Bianka Tang, BALIR, RVT
== END | disposition home or self-care (01) ==
LOC: CVS 12:52
PROVIDERS: PCP Internal Medicine; Referring Provider Internal Medicine; Visit Provider Internal Medicine
DX: R07.9 Chest pain, unspecified (principal); R94.39 Abnormal result of other cardiovascular function study
CPT/HCPCS: 93306

== ENCOUNTER 2022-08-19 10:24 | Day surgery (SDC) | payer MEDICARE, SELFPAY ==
[2018-12-24 12:48] VITALS: BMI 36.9
[2022-08-18 08:03] VITALS: BMI 37.3
--- NOTE | 2022-08-19 13:48 | CL.D_ITS ---
Patient Name: VIRGINIA URRUTIA Study Date: 08/19/2022 Performing: Chicho Bahena MD Ht: 66 inches 167.64 cm : 1940 Wt: 231 lbs 104.78 kg Age: 81 Gender: female BSA: 2.13 PROCEDURE(S) PERFORMED DC01-([id number])LHC/COR/LV CLINICAL PROFILE AND INDICATIONS Indications: Worsening Angina Heart Failure: None Stress/Imaging Date: 08/02/22Stress Test with SPECT MPI: Positive Low Risk CAD Presentations: Stable angina. CONCLUSIONS Normal coronary arteries Normal LV size, wall motion,and systolic function Hyperdynamic ventricle RECOMMENDATIONS Continue current medical therapy DESCRIPTION OF PROCEDURE The patient arrived to the procedure lab. The risks and benefits of the procedure as well as a full description of our services here and current unavailability of surgical backup were fully explained to the patient and/or their significant other prior to the catheterization. The Timeout was completed, verifying the correct patient and procedure. The patient's procedural site was prepped and draped in the usual fashion. Local anesthetic was given subcutaneously to right radial region with Lidocaine 2%. Local anesthetic was given subcutaneously to right groin region with Lidocaine 2%. Using a modified Seldinger technique, arterial access was obtained via the right radial artery, a 6Fr sheath was inserted., arterial access was obtained via the right femoral artery, a 5Fr sheath was inserted. Left Coronary Artery selective angiography was performed in multiple views using a 5 Fr. JL4 catheter. Right Coronary Artery selective angiography was then performed in multiple views using a 5 Fr. 3DRC (Leroy) catheter. Left Ventriculography was performed in MCGINNIS projection using a 5 Fr. Pigtail catheter. LV to AO pullback pressures were then recorded.Contrast was injected through the sheath and the Right Iliac and Femoral artery were assessed for possible closure device.The arterial sheath was pulled and a Mynx closure device was deployed for hemostasis. The arterial sheath was pulled and a TR Band was applied for hemostasis CORONARY ANGIOGRAPHY DOMINANCE: Right Dominant LEFT HEART ASSESSMENT Left Ventricular Ejection Fraction: by LV Gram 75 % Normal LV wall motion Normal Left Ventricular systolic function LEFT MAIN: Angiographically normal LEFT ANTERIOR DESCENDING ARTERY: No significant disease noted CIRCUMFLEX ARTERY: No significant disease noted RIGHT CORONARY ARTERY: No significant disease noted COMPLICATIONS No Complications PROCEDURE MEDICATIONS Fentanyl 50 mcg IV Versed 1 mg IV Oxygen: 2 L/min via nasal cannula Baby Aspirin (81mg) 1 Tabs PO @ 08/19/2022 10:52:35 Heparin given IA 08/19/2022 11:52:45 Verapamil 2.5mg, Ntg 100mcgs, 3000 units of Heparin given IA 08/19/2022 11:52:45 SUMMARY OF HEMODYNAMIC DATA Time AIR REST ECG 10:50:24 Art 156/60 (92) 11:49:24 AO 122/63 (85) SA 12:05:11 LV 122/3, 14 12:10:54 LV 138/2, 18 12:11:01 LV 135/2, 21 12:11:38 LVp 136/2, 18 12:11:41 AOp 138/59 (92) 12:11:46 Signed By Chicho Bahena MD On 08/19/2022 13:47:35 Chicho Bahena MD
== END 2022-08-19 14:30 | disposition home or self-care (01) ==
LOC: CLSP 10:27
PROVIDERS: PCP Internal Medicine; Referring Provider Internal Medicine Cardiovascular Disease; Visit Provider Internal Medicine Cardiovascular Disease
DX: I25.118 Atherosclerotic heart disease of native coronary artery with other forms of angina pectoris (principal); I10 Essential (primary) hypertension; E78.5 Hyperlipidemia, unspecified; E03.9 Hypothyroidism, unspecified; Z79.899 Other long term (current) drug therapy
CPT/HCPCS: 93458; 99152; 99153; C1760; J7040; C1769; C1894; Q9967

== ENCOUNTER → 2022-08-29 | Outpatient (CLI) | payer MEDICARE, SELFPAY ==
[2018-12-24 12:48] VITALS: BMI 36.9
--- NOTE | 2022-08-29 12:59 | ADUL_ITS ---
Reason For Study: R/O Pseudoaneurysm Right Velocities Left Velocities Common Femoral Artery, mid = 133.7 cm./sec. Common Femoral Artery, mid = 173.2 cm./sec. LOCKSTITCH TUNNEL ELASTIC OPERATOR measures 1.06 x .95 cm. LOCKSTITCH TUNNEL ELASTIC OPERATOR measures .96 x .92 cm. CFV is compressible witih normal venous flow CFV is compressible witih normal venous flow patterns. patterns. No pseudoaneurysm of AV Fistula identified. Prelim called to Dr. Bahena's office. /US Art Duplex Unilat Lower Ext Interpretation Summary Right femoral vessels patent with no pseudoaneurysm or fistula identified. Left femoral vessels patent with no pseudoaneurysm or fistula identified. Ordering Physician: Chicho Bahena Performed By: Corby Guadalupe RVT
--- NOTE | 2022-08-29 14:17 | ADUUE_ITS ---
Reason For Study: Pain in right upper arm, s/p attempted cath RIGHT Brachial artery, mid, 0.40 x 0.36 cm, 122.7 cm/sec. Radial artery, mid, 0.21 x 0.20 cm, 82.8 cm/sec. Radial artery, distal, 0.22 x 0.27 cm, 62 cm/sec. Ulnar artery, distal, 0.21 x 0.21 cm, 60.7 cm/sec. Radial, Ulnar, Brachial, Cephalic and Basilic vein are compressible. No acute occlusion or pseudoaneurysm noted. Preliminary report given to Pratima MUELLER. /US Art Duplex Unilat UP Extrem Interpretation Summary Right upper extremity vessels patent with no pseudoaneurysm or fistula identifi ed Ordering Physician: Soraida Peterson Referring Physician: Kristine Moncada D.O. Performed By: Melany Mancuso RVT
== END | disposition home or self-care (01) ==
LOC: CVS 12:57
PROVIDERS: PCP Internal Medicine; Referring Provider Internal Medicine Cardiovascular Disease; Visit Provider Internal Medicine Cardiovascular Disease
DX: S75.001A Unspecified injury of femoral artery, right leg, initial encounter (principal); X58.XXXA Exposure to other specified factors, initial encounter; I97.410 Intraoperative hemorrhage and hematoma of a circulatory system organ or structure complicating a cardiac catheterization; I25.10 Atherosclerotic heart disease of native coronary artery without angina pectoris
CPT/HCPCS: 93926; 93931

== ENCOUNTER → 2022-11-04 | Outpatient (CLI) | payer MEDICARE, SELFPAY ==
[2018-12-24 12:48] VITALS: BMI 36.9
[2022-11-04 10:54] LABS: Potassium 5.2 mmol/L (3.5-5.1)
== END | disposition home or self-care (01) ==
LOC: LABSPEC 10:43
PROVIDERS: PCP Internal Medicine; Referring Provider Internal Medicine; Visit Provider Internal Medicine
DX: E87.5 Hyperkalemia (principal)
CPT/HCPCS: 84132

== ENCOUNTER → 2022-11-23 | Outpatient (CLI) | payer MEDICARE, SELFPAY ==
[2018-12-24 12:48] VITALS: BMI 36.9
--- NOTE | 2022-11-23 11:22 | BI_ITS ---
MAMMOGRAPHY - BILATERAL SCREENING REASON FOR EXAM: Female, 82 years old. Routine annual screening examination. PERTINENT HISTORY: Personal history of breast cancer. Prior right lumpectomy with radiation. Mother with breast cancer. TECHNIQUE: Digital bilateral breast elsy (3D mammographic acquisition) in the CC and MLO projections. 2-D mediolateral oblique (MLO) and craniocaudad (CC) views of both breasts were obtained. CAD: Full Field Digital Mammography with Computer Added Detection was performed. COMPARISON: Comparison is made with prior study dated November 22, 2021 and November 03, 2020. FINDINGS: Breast Composition: There are scattered areas of fibroglandular density. There are no dominant masses or suspicious calcifications. Once again, the patient is status post lumpectomy in the upper outer aspect of the right breast with postoperative scarring. A clip is seen at the operative site. No other significant abnormalities are identified. There has been no significant change since the prior study. BI/SCRN MAMM (CAD)W/ELSY BILAT IMPRESSION: Stable bilateral screening mammogram. Yearly follow-up mammogram recommended. (A) ASSESSMENT CATEGORY: BIRADS Category 2: Benign. A letter regarding these results will be sent to the patient by the facility within 30 days. Approximately 10% of breast cancers are not detected by mammography. A normal mammogram should not delay biopsy of a clinically suspicious abnormality. [id number] Electronically Signed: Dashawn Rowe MD at 13:10 EDT ,
--- NOTE | 2022-11-23 11:30 | BD_ITS ---
STUDY: DUAL ENERGY X-RAY ABSORPTIOMETRY / DXA REASON FOR EXAM: Female, 82 years old. SCREENING TECHNIQUE: Bone Mineral Density (BMD) measurements of lumbar spine and left hip were obtained. COMPARISON: Comparison is made with prior study November 03, 2020. FINDINGS: Lumbar Spine (L1-L4): g/cm2 (1.043) / T-score (0.2) / Z-score (2.8) Findings are suggestive of normal bone density with a low fracture risk. Left Femur Total: g/cm2 (0.836) / T-score (-0.9) / Z-score (1.2) Left Femoral Neck: g/cm2 (0.888) / T-score (0.3) / Z-score (2.7) The T-Scores on the most recent prior examination were: Lumbar Spine (L1-L4): There has been improvement of bone density since the previous examination. Left Femur Total: which represents an improvement of 1.4%. BD/Dexa Bone Density Study IMPRESSION: The patient is considered normal as outlined below according to World Rohan Organization (WHO) criteria with a low fracture risk. There has been improvement of bone density since the previous examination. Reference Information: The T-score is the number of standard deviations above or below the standard which is normal for young adults at their peak bone mineral density. The World Health Organization (WHO) interprets the T-scores as follows: Above -1 Normal bone density Between -1 and -2.5 Osteopenia Equal to / or below -2.5 Osteoporosis As a practical clinical guideline, osteopenia may be graded as follows: Mild -1 through -1.5 Moderate -1.6 through -2.0 Severe -2.1 through -2.4 The Z-score is the number of standard deviations above or below age-matched controls. A Z-score of less than -1.5 would be considered abnormal. References: 1. NIH Osteoporosis and Related Bone Diseases www osteo.org 2. International Society for Clinical Densitometry www iscd.org 3. National Osteoporosis Foundation www nof.org Electronically Signed: Dashawn Rowe MD at 13:43 EDT ,
== END | disposition home or self-care (01) ==
LOC: OPBI 11:20
PROVIDERS: PCP Internal Medicine; Visit Provider Internal Medicine Hematology & Oncology
DX: Z12.31 Encounter for screening mammogram for malignant neoplasm of breast (principal); Z08 Encounter for follow-up examination after completed treatment for malignant neoplasm; Z85.3 Personal history of malignant neoplasm of breast; Z80.3 Family history of malignant neoplasm of breast; M85.89 Other specified disorders of bone density and structure, multiple sites
CPT/HCPCS: 77063; 77067; 77080

== ENCOUNTER → 2023-03-03 | Outpatient (CLI) | payer MEDICARE, SELFPAY ==
[2018-12-24 12:48] VITALS: BMI 36.9
--- NOTE | 2023-03-03 09:48 | US_ITS ---
STUDY: ABDOMINAL ULTRASOUND - RIGHT UPPER QUADRANT; ELASTOGRAPHY REASON FOR VISIT: Female, 82 years old. Fatty infiltration of the liver. TECHNIQUE: Ultrasound evaluation of the right upper quadrant was performed with real-time and static putnam-scale imaging. Point quantification shear wave elastography was performed (Selatra). TECHNICAL QUALITY: Adequate. COMPARISON: None. FINDINGS: Liver: The liver measures 13.8 cm. There is increased echogenicity consistent with fatty infiltration. The bile ducts are within normal limits. There is hepatic color flow. The direction of portal flow is hepatopetal. There is no demonstrated mass lesion. Median liver stiffness measured 9.3 kPa. Gallbladder: Normal distended gallbladder. The gallbladder wall measures 2.6 mm. There is a negative sonographic Srivastava''s sign. There is no pericholecystic fluid. There are multiple echogenic structures within the gallbladder, consistent with multiple gallstones. Common Bile Duct (C.B.D.): The common bile duct measures 3.1 mm. Pancreas: The pancreas was not visualized due to overlying bowel gas. Right Kidney: Normal size of the right kidney. The right kidney measures 9.3 cm x 4.7 cm x 4.7 cm. Normal renal cortex. The right cortex measures 1. cm. Scattered tiny nonobstructive right intrarenal calculi. There is no right hydronephrosis. US/ABD Limited w/ Elastography IMPRESSION: 1. Liver stiffness measures 9.3 kPa compatible with F2-F3 (Mild to moderate liver fibrosis) Metavir score. Electronically Signed: Dashawn Rowe MD at 13:41 EST ,
== END | disposition home or self-care (01) ==
PROVIDERS: PCP Internal Medicine; Referring Provider Internal Medicine; Visit Provider Internal Medicine
DX: K76.0 Fatty (change of) liver, not elsewhere classified (principal)
CPT/HCPCS: 76705; 76981

== ENCOUNTER 2023-06-28 18:22 | Emergency (ER) | payer MEDICARE, SELFPAY ==
[2018-12-24 12:48] VITALS: BMI 36.9
[2023-06-28 18:23] VITALS: BP 136/72; PULSE 76; RESP 16; TEMP 36.1; O2SAT 98; BMI 37.5
--- NOTE | 2023-06-28 18:41 | CT_ITS ---
STUDY: CT SOFT TISSUE NECK WITH CONTRAST REASON FOR EXAM: Female, 82 years old. mass left lateral neck RADIATION DOSAGE (If Supplied By Facility): CTDIvol = ( 17.95 ) mGy, DLP = ( 537.91 ) mGycm TECHNIQUE: The patient was scanned in a multi-detector CT scanner. High resolution transaxial imaging was performed following intravenous administration of IV 75mL Isovue-370. Sagittal and coronal images were reconstructed. Individualized dose optimization techniques were used for this CT. COMPARISON: None. FINDINGS: Normal bilateral parotid glands. 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 Normal bilateral parapharyngeal spaces. Normal bilateral carotid spaces. There is some skin thickening and edema of the subcutaneous fat of the left side of the neck superficial to the sternocleidomastoid muscle extending from the parotid gland to the thyroid cartilage consistent cellulitis. No loculated fluid collection to suggest abscess. Normal bilateral sublingual and submandibular glands and spaces. Normal visualized nasopharynx. Normal retropharyngeal space. Normal perivertebral space. Normal visualized bilateral faucial tonsils. The visualized tongue, tongue base and oropharynx are normal. The visualized cervical lymph nodes (levels I-) are within normal size limits, and maintain normal morphology. There is no demonstrated solid or cystic mass lesion. There is no abnormal contrast enhancement. Normal epiglottis, bilateral vallecula and hypopharynx. The pre-epiglottic and paraglottic adipose spaces are normal. Normal visualized bilateral piriform sinuses, aryepiglottic folds, vocal cords, and arytenoid-cricoid articulations. Normal subglottic trachea. Nonvisualization of the thyroid gland which may be severely atrophic or surgically congenitally absent. However, no surgical clips are seen. Normal visualized pulmonary apices. Normal visualized paranasal sinuses. Normal visualized cervical spine. CT/Soft Tissue Neck WITH Contrast IMPRESSION: Cellulitis of the left side of the neck but no abscess. Electronically Signed: Lv Lee MD at 20:04 EDT ,
--- NOTE | 2023-06-28 18:42 | EDS_ITS ---
HPI History of Present Illness Chief Complaint: Wound Check Detail of Chief Complaint: Left neck swelling Informant: patient Narrative Narrative: Patient presents to the emergency department complaint of left neck swelling that she noticed initially this morning. She noticed an area that was much smaller this morning and it has gradually enlarged. She went to urgent care and was referred to the emergency department. Patient states that she spent a lot of time outside yesterday and there was a lot of bugs flying around but she does not recall getting stung. She denies difficulties with breathing or swallowing. Denies recent illness. 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 Benign essential hypertension Bone pain Breast cancer, right Diverticulosis of colon Fracture of left wrist Hiatal hernia History of gastroesophageal reflux (GERD) Hyperlipidemia IBS (irritable bowel syndrome) Meningioma Obesity Osteoarthritis Osteopenia Screening mammogram, encounter for Spinal stenosis Vitamin D deficiency Vitiligo Home Medications levothyroxine 150 mcg tablet 150 mcg PO DAILY 12/23/14 [History Last Taken 08/19/22] coQ10 (ubiquinol) 100 mg capsule 100 mg PO DAILY 12/27/14 [History Last Taken Unknown] quinine sulfate 260 mg tablet 250 mg PO QHS PRN Leg Cramps 11/01/18 [History Last Taken Unknown] valsartan 160 mg tablet 160 mg PO BID 02/24/21 [History Last Taken 08/19/22] amoxicillin 500 mg capsule 2,000 mg PO .COMPLEX 07/27/22 [History Last Taken Unknown] clotrimazole-betamethasone 1 %-0.05 % topical cream 1 applic topical ONCE 07/27/22 [History Last Taken Unknown] omeprazole 40 mg capsule,delayed release 40 mg PO DAILY 07/27/22 [History Last Taken 08/19/22] acetaminophen 500 mg tablet (Pain Relief (acetaminophen)) 1,500 mg PO QAM 08/05/22 [History Last Taken Unknown] denosumab 60 mg/mL subcutaneous syringe 60 mg subcut [id number] 08/05/22 [History Last Taken Unknown] atenolol 100 mg tablet 100 mg PO DAILY #90 tabs 08/19/22 [Rx Last Taken Unknown] hydrochlorothiazide 12.5 mg tablet 12.5 mg PO DAILY 10/04/22 [History Last Taken Unknown] chlordiazepoxide-clidinium 5 mg-2.5 mg capsule (Librax (with clidinium)) 1 cap PO ONCE PRN 04/03/23 [History Last Taken Unknown] isosorbide mononitrate 60 mg tablet,extended release 24 hr 30 mg (1/2 x 60 mg) PO DAILY #90 tabs 04/03/23 [Rx Last Taken Unknown] letrozole 2.5 mg tablet 2.5 mg .Route .COMPLEX 04/03/23 [History Last Taken Unknown] lutein 6 mg capsule 20 mg PO BID 04/03/23 [History Last Taken Unknown] rosuvastatin 10 mg tablet (Crestor) 10 mg PO DAILY 04/03/23 [History Last Taken Unknown] amlodipine 5 mg tablet 5 mg PO BID 04/04/23 [History Last Taken Unknown] cephalexin 500 mg capsule 500 mg PO Q6 #40 CAPSULES 06/28/23 [Rx Last Taken Unknown] methylprednisolone 4 mg tablet 4 mg PO DAILY #5 tabs 06/28/23 [Rx Last Taken Unknown] Allergy/AdvReac Type Severity Reaction Status Date / Time hydroxychloroquine Allergy Unknown chest pain Verified 06/28/23 18:23 Beef Containing Products AdvReac Severe Other Verified 06/28/23 18:23 hydrochlorothiazide AdvReac Severe Other Verified 06/28/23 18:23 [From Diovan HCT] prednisone AdvReac Severe Chest Verified 06/28/23 18:23 tightness valsartan [From Diovan HCT] AdvReac Severe Other Verified 06/28/23 18:23 levofloxacin [From Levaquin] AdvReac Intermediate Mucosal Verified 06/28/23 18:23 lesions pramipexole di-HCl AdvReac Intermediate Unknown Verified 06/28/23 18:23 [From Mirapex] tramadol AdvReac Intermediate Other Verified 06/28/23 18:23 Family History Mother Arthritis Breast cancer Hypertension Thyroid disorder Father Alzheimers disease Surgical History History of colonoscopy History of total left knee replacement (TKR) History of total right hip replacement History of total right knee replacement (TKR) Hx of cataract removal with insertion of prosthetic lens Hx of resection of meningioma S/P lumpectomy, right breast (~12/2018) Social History Smoking Status: Former smoker how long ago did patient quit smokin second hand exposure: No alcohol intake: current alcohol intake frequency: holidays/special occasions only substance use type: does not use caffeine: Yes what type of physical activity do you participate in: none frequency: does not exercise seatbelt use: always do you feel safe at home: Yes ROS ROS ED Review of Systems ROS Unobtainable: other Constitutional Constitutional ED: Reports lethargy; Denies chills, fever(s), sweats or weight loss Eyes Eyes: Denies blurry vision, change in vision or diplopia ENT ENT ED: Reports other Details: Left anterior neck swelling ; Denies rhinorrhea or sore throat Cardiovascular Cardiovascular: Denies chest pain, orthopnea or racing heartbeat Respiratory/Chest Respiratory/Chest: Denies cough, dyspnea, dyspnea on exertion, orthopnea or sputum Gastrointestinal Gastrointestinal: Denies abdominal pain, diarrhea, nausea or vomiting Genitourinary Genitourinary ED: Denies dysuria, hematuria or urinary frequency Musculoskeletal Musculoskeletal: Denies arthralgias, back pain, myalgias or neck pain Integumentary Denies abscess, Abrasions or rash Neurologic Neurologic: Denies headache(s) or weakness Psychiatric Psychiatric: Denies anxiety, depression or suicidal thoughts Endocrine Endocrinology: Denies polydipsia, polyphagia or polyuria Hematologic/Lymphatic Hematologic/Lymphatic: Denies easy bleeding, easy bruising or lymphadenopathy Allergic/Immunologic Allergic/Immunologic ED: Denies mouth swelling, tongue swelling or urticaria EXAM Physical Exam Const Vital Signs: 06/28/23 18:23 06/28/23 19:29 Temperature 97 F L 98.4 F Temperature Source Temporal Oral Pulse Rate 76 67 Respiratory Rate 16 16 Blood Pressure 136/72 H 135/69 H Blood Pressure Mean 93 91 Pulse Ox 98 94 Oxygen Delivery Method Room Air Room Air Positive well nourished and well developed General Appearance ED: well developed and NAD HEENT Reports TM's clear and moist mucous membranes normocephalic and atraumatic; Negative for trauma or tenderness Tympanic Membrane ED: Yes TM's clear Eyes PERRL and EOMs intact bilaterally General Eye ED: Negative for pale conjunctiva or scleral icterus Neck no lymphadenopathy, supple and no JVD Neck Narrative: There is a soft tissue swelling to the left side of the anterior neck over the sternocleidomastoid measuring approximately 3 cm in diameter. There is no significant tenderness. On the skin centrally over this soft tissue swelling there may be a small area of bite or puncture wound but difficult to say definitively. General: Negative for tenderness Chest Wall inspection of chest normal and palpation of chest normal Chest: Negative for tenderness Resp normal respiratory effort and clear to auscultation bilaterally Effort and Inspection: Negative for respiratory distress or pain with movement Auscultation: Negative for rhonchi, wheezes or diminished lung sounds Cardio regular rate, regular rhythm, S1 normal heart sound, S2 normal heart sound and no murmurs Peripheral Pulses: pulses 2+ throughout GI normal to inspection, nondistended, normoactive bowel sounds, soft to palpation, non-tender, non-distended and no masses Back/Spine no CVA tenderness and no thoracic nor lumbar tenderness Extremity normal to inspection General Extremety ED: Negative for edema General Extremity: Negative for edema Neuro oriented x3, CN's II-XII intact bilaterally, no sensory deficits noted and gait normal Sensorium / Orientation: awake, alert, oriented to person, oriented to place and oriented to time Motor Exam: strength 5/5 throughout and strength abnormal Psych mental status grossly normal Skin no rashes or lesions noted and no wounds MDM MDM MDM Narrative Medical decision making narrative: Patient presents with soft tissue swelling to the left side of the neck. Etiology unclear. Suspect this could be an insect bite with just local reaction. Also in the differential would be an enlarged lymph node. Area is nonpulsatile. Does not seem to affect the airway. She has no stridor or difficulty swallowing. Will obtain some basic labs and will obtain a CT soft tissue neck to evaluate further. CBC with differential obtained showed white count 6.3 with hemoglobin 11.7 and platelet count of 220. Chemistries unremarkable. BUN [address] scan of the soft tissue neck obtained with IV contrast showed cellulitic changes in the subcu tissue left neck but no abscess. This point I suspect likely this is a allergic reaction to a insect bite or sting. I did give her a dose of Benadryl in the emergency department. Also will give her methylprednisolone which she states that she cannot tolerate. Patient will also be started on Keflex as it does appear is somewhat erythematous and cellulitic. Recommend she follow-up with ENT or her primary care physician within next 3 to 5 days for wound check. To return if increasing pain, difficulty breathing, difficulty swallowing, or condition should worsen anyway. Lab Data Attestation: I reviewed the patient's lab results. Labs: Laboratory Results - last 24 hr 06/28/23 19:00 WBC 6.3 RBC 4.14 L Hgb 11.7 L Hct 37.1 MCV 89.6 MCH 28.3 MCHC 31.5 L RDW Std Deviation 45.2 H RDW Coeff of Huan 13.8 Plt Count 220 MPV 9.8 Immature Gran % (Auto) 0.600 Neut % (Auto) 56.5 Lymph % (Auto) 27.8 [place] % (Auto) 9.9 Eos % (Auto) 4.1 Baso % (Auto) 1.1 H Absolute Neuts (auto) 3.5 Absolute Lymphs (auto) 1.74 Nucleated RBC % 0 Sodium 142 Potassium 4.6 Chloride 111 H Carbon Dioxide 25.0 Anion Gap 6 BUN 30 H Creatinine 1.54 H Estim Creat Clear Calc 35.83 Est GFR (MDRD) Af Amer 42 L Est GFR (MDRD) Non-Af 34 L BUN/Creatinine Ratio 19.5 Glucose 119 H Calcium 10.3 H Radiography Diagnostic Testing: Clinical Impression(s) from Imaging Studies Soft Tissue Neck CT 06/28/23 18:41 IMPRESSION: Cellulitis of the left side of the neck but no abscess. Electronically Signed: Lv Lee MD at 20:04 EDT , Discharge Plan Triage Chief Complaint: Wound Check ED Provider: Frances Gallego Dx/Rx/DC Orders Clinical Impression: Cellulitis, Allergic reaction, Insect bite Instructions: Cellulitis Dc, ED Infected Insect Bite or Sting, ED Insect Bite Prescriptions: New cephalexin [cephalexin] 500 mg capsule 500 mg PO Q6 Qty: 40 0RF methylprednisolone 4 mg tablet 4 mg PO DAILY Qty: 5 0RF No Action quinine 260 mg tablet 260 mg tablet 250 mg PO QHS PRN (Reason: Leg Cramps) omeprazole 40 mg capsule,delayed release(DR/EC) 40 mg PO DAILY hydrochlorothiazide 12.5 mg tablet 12.5 mg PO DAILY clotrimazole-betamethasone 1-0.05 % cream 1 applic topical ONCE Patient Comments: TAKE DIRECTED DAILY NEEDED amoxicillin 500 mg capsule 2,000 mg PO .COMPLEX Patient Comments: TAKE 4 CAPSULES BY MOUTH DIRECTED. ONE HOUR PRIOR TO DENTAL WORK Rx Instructions: 2,000 mg orally PRN; TAKE 4 CAPSULES BY MOUTH DIRECTED. ONE HOUR PRIOR TO DENTAL WORK acetaminophen [Pain Relief (acetaminophen)] 500 mg tablet 1,500 mg PO QAM chlordiazepoxide-clidinium [Librax (with clidinium)] 5-2.5 mg capsule 1 cap PO ONCE PRN lutein 6 mg capsule 20 mg PO BID Rx Instructions: give with meal/snack rosuvastatin [Crestor] 10 mg tablet 10 mg PO DAILY letrozole 2.5 mg tablet 2.5 mg .ROUTE .COMPLEX Rx Instructions: 2.5 mg; isosorbide mononitrate 60 mg tablet extended release 24 hr 30 mg PO DAILY Qty: 90 3RF amlodipine 5 mg tablet 5 mg PO BID levothyroxine 150 MCG tablet 150 mcg PO DAILY valsartan 160 mg tablet 160 mg PO BID coQ10 (ubiquinol) 100 MG capsule 100 mg PO DAILY denosumab 60 mg/mL syringe 60 mg subcut [id number] atenolol 100 mg tablet 100 mg PO DAILY Qty: 90 3RF Primary Care Provider: Kristine Moncada Referrals: Kristine Moncada DO [Primary Care Provider] - 3-5 Days Devon Jewell MD [Med Staff - Active Staff] - 3-5 Days Disposition Disposition: Home, Self Care
[2023-06-28] MEDS: DiphenhydrAMINE 50 MG/ML Syringe 25 MG IV (19:00)
[2023-06-28 19:11] LABS: Absolute Lymphocyte Count 1.74 X10^3/uL (0.83-4.51); Absolute Neutrophil Count 3.5 X10^3/uL (2.0-7.7); Basophil# 0.07 X10^3/uL; Basophil% 1.1 % (0-1); Eosinophil# 0.26 X10^3/uL; Eosinophils% 4.1 % (0-5); Hematocrit 37.1 % (37-47); Hemoglobin 11.7 g/dL (12.0-15.0); Lymphocyte # 1.74 X10^3/ul (0.83-4.51); Lymphocyte % 27.8 % (19-41); Mean Corp Hgb Conc 31.5 g/dL (32-36); Mean Corpuscular Hgb 28.3 pg (27.0-32.0); Mean Corpuscular Volume 89.6 fL (81-99); Mean Platelet Vol. 9.8 fl (6.2-12.0); Monocyte# 0.62 X10^3/uL; Monocyte% 9.9 % (0-10); NRBC Flagged by Analyzer 0 % (0-5); Neutrophil # 3.54 X10^3/uL (2.7-7.7); Neutrophil % 56.5 % (47-70); Platelet Count 220 K/mm3 (150-450); RBC Distribution Width CV 13.8 % (11.6-14.6); RBC Distribution Width SD 45.2 fl (35.1-43.9); Red Blood Count 4.14 M/mm3 (4.2-5.4); White Blood Count 6.3 K/mm3 (4.4-11.0)
[2023-06-28 19:28] LABS: Anion Gap 6 (5-15); BUN 30 mg/dL (7-18); BUN/Creat Ratio 19.5 RATIO (10-20); Calcium,Total 10.3 mg/dL (8.5-10.1); Chloride 111 mmol/L (98-107); Creatinine, Serum 1.54 mg/dL (0.55-1.02); EST Glomerular Filtration Rate 34 mL/min (>60); Est Glom Filt Rate - Afr Amer 42 mL/min (>60); Estimated Creatinine Clearance 35.83 ml/min; Glucose 119 mg/dL (74-106); Potassium 4.6 mmol/L (3.5-5.1); Sodium Level 142 mmol/L (136-145)
[2023-06-28 19:29] VITALS: BP 135/69; PULSE 67; RESP 16; TEMP 36.9; O2SAT 94
[2023-06-28 21:35] VITALS: BP 126/66; PULSE 85; RESP 16; TEMP 36.6; O2SAT 96
[2023-06-28] MEDS: Cephalexin 250 MG Capsule 500 MG PO (21:41)
[2023-06-28] MEDS: MethylPREDNISolone 4 MG Tablet 8 MG PO (21:41)
== END 2023-06-28 22:13 | disposition home or self-care (01) ==
PROVIDERS: Emergency Provider Emergency Medicine; PCP Internal Medicine; Visit Provider Emergency Medicine
DX: L03.221 Cellulitis of neck (principal); T78.40XA Allergy, unspecified, initial encounter; J45.909 Unspecified asthma, uncomplicated; I25.10 Atherosclerotic heart disease of native coronary artery without angina pectoris; Z87.891 Personal history of nicotine dependence; X58.XXXA Exposure to other specified factors, initial encounter
CPT/HCPCS: 70491; 80048; 85025; 96374; 99284; Q9967; A4216

== ENCOUNTER 2023-07-26 15:38 | Emergency (ER) | payer MEDICARE, SELFPAY ==
[2018-12-24 12:48] VITALS: BMI 36.9
[2023-07-26 15:39] VITALS: BP 90/74; PULSE 88; RESP 18; TEMP 35.9; O2SAT 93; BMI 37.5
--- NOTE | 2023-07-26 16:06 | ED.VIS.FALL ---
HPI HPI - Fall History of Present Illness Chief Complaint: Fall Informant: patient Occured/Mechanism Occurred: Today Usually ambulates: Without assistance Pain/Injury Pain Location: face Current Severity: Mild Maximum Severity: Mild Associated Symptoms Associated Symptoms: Negative for Parasthesias, Weakness, Loss of function, Inability to ambulate, Loss of consciousness or Amnesia Narrative Narrative: 82-year-old female history of CAD, spinal stenosis, breast CA, hypertension. States 2-day she was walking there was uneven sidewalk she tripped over 1 down herself with her hands with her left cheek and lacerated inside her left upper lip. No LOC. No significant head injury otherwise. Denies nausea or headache. She is on no blood thinners. Denies neck pain. Said her hands are sore but they do not hurt. There is no wrist or forearm pain. Denies any hip or knee pain. Patient denies any recent lightheadedness. Her initial blood pressure was 90/74. States she is on 4 blood pressure medications a day. And her blood pressure often alternates between 90s to as high as 150. It is not uncommon for her to have a blood pressure like she does right now. Tetanus Immunization: Unknown Prior similar symptoms: No Recent Illness/Hospitalization: No PFSH PFSH Medical History Hyperlipidemia Vitamin D deficiency Atherosclerosis of coronary artery of [place] heart without angina pectoris Asthma Screening mammogram, encounter for Acute bronchitis, unspecified Bone pain Meningioma Fracture of left wrist Hiatal hernia Osteoarthritis Breast cancer, right Anemia Spinal stenosis Osteopenia IBS (irritable bowel syndrome) Diverticulosis of colon Vitiligo Arthritis Obesity History of gastroesophageal reflux (GERD) Benign essential hypertension Acquired hypothyroidism Home Medications ?Medication ?Instructions ?Recorded ?Last Taken ?Type levothyroxine 150 mcg tablet 150 mcg PO DAILY 12/23/14 08/19/22 History coQ10 (ubiquinol) 100 mg capsule 100 mg PO DAILY 12/27/14 Unknown History quinine sulfate 260 mg tablet 250 mg PO QHS PRN Leg Cramps 11/01/18 Unknown History valsartan 160 mg tablet 160 mg PO BID 02/24/21 08/19/22 History amoxicillin 500 mg capsule 2,000 mg PO .COMPLEX 07/27/22 Unknown History clotrimazole-betamethasone 1 1 applic topical ONCE 07/27/22 Unknown History %-0.05 % topical cream omeprazole 40 mg capsule,delayed 40 mg PO DAILY 07/27/22 08/19/22 History release acetaminophen 500 mg tablet (Pain 1,500 mg PO QAM 08/05/22 Unknown History Relief (acetaminophen)) denosumab 60 mg/mL subcutaneous 60 mg subcut [id number] 08/05/22 Unknown History syringe atenolol 100 mg tablet 100 mg PO DAILY #90 tabs 08/19/22 Unknown Rx hydrochlorothiazide 12.5 mg tablet 12.5 mg PO DAILY 10/04/22 Unknown History chlordiazepoxide-clidinium 5 1 cap PO ONCE PRN 04/03/23 Unknown History mg-2.5 mg capsule (Librax (with clidinium)) isosorbide mononitrate 60 mg 30 mg (1/2 x 60 mg) PO DAILY #90 04/03/23 Unknown Rx tablet,extended release 24 hr tabs lutein 6 mg capsule 20 mg PO BID 04/03/23 Unknown History rosuvastatin 10 mg tablet (Crestor) 10 mg PO DAILY 04/03/23 Unknown History amlodipine 5 mg tablet 5 mg PO BID 04/04/23 Unknown History cephalexin 500 mg capsule 500 mg PO Q6 #40 CAPSULES 06/28/23 Unknown Rx methylprednisolone 4 mg tablet 4 mg PO DAILY #5 tabs 06/28/23 Unknown Rx letrozole 2.5 mg tablet 2.5 mg PO DAILY #90 tabs 07/18/23 Unknown Rx mecobalamin (vitamin B12) 500 mcg mcg PO 07/24/23 Unknown History chewable tablet cholecalciferol (vitamin D3) 1,250 1,250 mcg PO QWEEK 07/26/23 Unknown History mcg (50,000 unit) capsule Allergy/AdvReac Type Severity Reaction Status Date / Time hydroxychloroquine Allergy Unknown chest pain Verified 07/26/23 15:39 Beef Containing Products AdvReac Severe Other Verified 07/26/23 15:39 hydrochlorothiazide (From AdvReac Severe Other Verified 07/26/23 15:39 Diovan HCT) prednisone AdvReac Severe Chest Verified 07/26/23 15:39 tightness valsartan (From Diovan HCT) AdvReac Severe Other Verified 07/26/23 15:39 levofloxacin (From Levaquin) AdvReac Intermediate Mucosal Verified 07/26/23 15:39 lesions pramipexole di-HCl (From AdvReac Intermediate Unknown Verified 07/26/23 15:39 Mirapex) tramadol AdvReac Intermediate Other Verified 07/26/23 15:39 Family History Mother Arthritis Breast cancer Hypertension Thyroid disorder Father Alzheimers disease Surgical History History of colonoscopy S/P lumpectomy, right breast (~12/2018) Hx of resection of meningioma History of total right hip replacement History of total right knee replacement (TKR) History of total left knee replacement (TKR) Hx of cataract removal with insertion of prosthetic lens Social History Smoking Status: Former smoker how long ago did patient quit smokin second hand exposure: No alcohol intake: current alcohol intake frequency: holidays/special occasions only substance use type: does not use caffeine: Yes what type of physical activity do you participate in: none frequency: does not exercise seatbelt use: always do you feel safe at home: Yes ROS ROS ED ROS Narrative Denies recent illness. Denies vomiting diarrhea Review of Systems ROS Unobtainable: Denies due to encephalopathy Constitutional Constitutional ED: Denies chills or fever(s) Eyes Eyes: Denies blurry vision ENT ENT ED: Denies ear pain Cardiovascular Cardiovascular: Denies chest pain Respiratory/Chest Respiratory/Chest: Denies cough, dyspnea or dyspnea on exertion Musculoskeletal Musculoskeletal: Denies arthralgias or back pain Integumentary Denies abscess or Abrasions Neurologic Neurologic: Denies headache(s) Psychiatric Psychiatric: Denies anxiety or depression Endocrine Endocrinology: Denies polydipsia, polyphagia or polyuria Hematologic/Lymphatic Hematologic/Lymphatic: Denies easy bleeding, easy bruising or lymphadenopathy Allergic/Immunologic Allergic/Immunologic ED: Denies mouth swelling, tongue swelling or urticaria EXAM Physical Exam Narrative Exam Narrative: 82-year-old female vital signs stable and afebrile. She is sitting upright. Her pressure is 90/74 again she states that it is not uncommon for her to run that blood pressure. She is in no distress. H EENT exam pupils round reactive light. She has a superficial abrasion below her left eyelid. She has a bruise on her left cheek. There is no bony deformity or tenderness. Left upper lip there is about a 1 inch laceration involves the skin and subcu tissue will need to be repaired. Dentitions intact. Scalp is nontender. No hematoma. No laceration. C-spine and trachea neck nontender. Back and spine nontender. Lungs clear to auscultation bilaterally. Chest wall and ribs nontender. Heart regular rhythm no murmur. Abdomen soft nontender. No bruising. Pelvic girdle intact. Moving all 4 extremities. She has nontender shoulders, elbows wrist and hands. Hips, knees and ankles are nontender normal range of motion. Back is nontender. Neurologically she is awake alert no focal motor deficits. Const Vital Signs: 07/26/23 15:39 Temperature 96.7 F L Temperature Source Temporal Pulse Rate 88 Respiratory Rate 18 Blood Pressure 90/74 Blood Pressure Mean 79 Pulse Ox 93 Oxygen Delivery Method Room Air Positive well nourished and well developed; Negative for cachectic, contractures or unkempt General Appearance ED: well developed; Negative for unkempt, cachectic or contractures Nutritional Appearance: Negative for cachectic HEENT Reports normocephalic trauma and contusion; Negative for tenderness Eyes PERRL and EOMs intact bilaterally General Eye ED: Negative for pale conjunctiva, scleral icterus or other Neck full ROM, no lymphadenopathy and supple General: Negative for tenderness Chest Wall inspection of chest normal and palpation of chest normal Chest: Negative for other Resp normal respiratory effort, no retractions and clear to auscultation bilaterally Effort and Inspection: Negative for pain with movement Auscultation: Negative for rales, rhonchi, wheezes or diminished lung sounds Cardio regular rate, regular rhythm, S1 normal heart sound, S2 normal heart sound and no murmurs Rate: Negative for bradycardia or tachycardic Rhythm: Negative for abnormal rhythm Bruits: Negative for other GI non-tender, non-distended and no masses Inspection: Negative for abdominal distention Auscultation: normoactive bowel sounds Palpation: soft; Negative for guarding or rebound tenderness present Back/Spine no CVA tenderness General Back: Negative for CVA tenderness Cervical Spine: Negative for cervical spine tenderness Thoracic Spine / Upper Back: Negative for ROM limited or pain with ROM Lumbar Spine / Lower Back: Negative for lumbar spinal tenderness or paraspinal muscle tenderness Neuro oriented x3, CN's II-XII intact bilaterally, moves all extremities and no focal motor deficits [place] Coma Scale: document GCS findings Spontaneous Obeys Commands Oriented 15 Sensorium / Orientation: alert, oriented to person, oriented to place and oriented to time; Negative for orientation impaired, confused, lethargic or stuporous Motor Exam: strength 5/5 throughout Psych Appearance: Negative for unkempt Skin General Skin Exam: Negative for other Lesions: no lesions Rashes: no rashes Trauma: Negative for abrasion MDM MDM MDM Narrative Medical decision making narrative: 82-year-old female tripped and fell on uneven sidewalk contusion left cheek. Laceration left upper lip. Tetanus will be updated. Suture repair over left upper lip. Adulteration using imaging. She has an abrasion to her left lower leg. History & Record Review Discussion w/independent historian: Patient Additional record(s) reviewed:: Prior inpatient record, Prior outpatient record, Prior ED visit, Prior labs and No prior records Procedures Lacerations Left forehead laceration repair:: Length: 1.5 in Depth: Sub Q Shape: Linear Laceration repair: Irrigated and Wound explored Number of Sutures/[place]: 3 Suture Information: Ethilon, Simple and 6-0 (For laceration. 1.5 inches in length. Cleaned with saline wash. Explored. Locally anesthetized prior. With lidocaine. Closed using 3 simple erupted 6-0 Ethilon sutures. Proper hemostasis and wound closure is obtained. Patient tolerated procedure well.) Left upper inside lip laceration repair:: Length: 1.5 in Depth: Sub Q Shape: Linear Laceration repair: Irrigated, Lidocaine and Wound explored Number of Sutures/[place]: 4 Suture Information: Vicryl and 5-0 Comment: Left upper lip inside laceration vertical about 1 and half plus inches in length. Involve the skin and subcu tissue. Locally anesthetized with lidocaine. Irrigated and washed with saline. Explored. Closed using 4 simple interrupted 5-0 Chromic Gut sutures. Patient tolerated procedure well. Left lower eyelid laceration repair:: Length: 1 in Depth: Skin Shape: Linear Comment: Dermabond repair. Discharge Plan Triage Chief Complaint: Fall ED Provider: Chris Renee Dx/Rx/DC Orders Clinical Impression: Fall, Forehead laceration, Lip laceration, Contusion of face Instructions: ED Facial Contusion, ED Laceration, All Closures Prescriptions: No Action quinine sulfate 260 mg tablet 250 mg PO QHS PRN (Reason: Leg Cramps) omeprazole 40 mg capsule,delayed release(DR/EC) 40 mg PO DAILY hydrochlorothiazide 12.5 mg tablet 12.5 mg PO DAILY clotrimazole-betamethasone 1-0.05 % cream 1 applic topical ONCE Patient Comments: TAKE DIRECTED DAILY NEEDED amoxicillin 500 mg capsule 2,000 mg PO .COMPLEX Patient Comments: TAKE 4 CAPSULES BY MOUTH DIRECTED. ONE HOUR PRIOR TO DENTAL WORK Rx Instructions: 2,000 mg orally PRN; TAKE 4 CAPSULES BY MOUTH DIRECTED. ONE HOUR PRIOR TO DENTAL WORK acetaminophen [Pain Relief (acetaminophen)] 500 mg tablet 1,500 mg PO QAM chlordiazepoxide-clidinium [Librax (with clidinium)] 5-2.5 mg capsule 1 cap PO ONCE PRN lutein 6 mg capsule 20 mg PO BID Rx Instructions: give with meal/snack rosuvastatin [Crestor] 10 mg tablet 10 mg PO DAILY isosorbide mononitrate 60 mg tablet extended release 24 hr 30 mg PO DAILY Qty: 90 3RF amlodipine 5 mg tablet 5 mg PO BID mecobalamin (vitamin B12) 500 mcg tablet,chewable PO levothyroxine 150 MCG tablet 150 mcg PO DAILY valsartan 160 mg tablet 160 mg PO BID coQ10 (ubiquinol) 100 MG capsule 100 mg PO DAILY denosumab 60 mg/mL syringe 60 mg subcut [id number] cephalexin [cephalexin] 500 mg capsule 500 mg PO Q6 Qty: 40 0RF methylprednisolone 4 mg tablet 4 mg PO DAILY Qty: 5 0RF cholecalciferol (vitamin D3) 1,250 mcg (50,000 unit) capsule 1,250 mcg PO QWEEK atenolol 100 mg tablet 100 mg PO DAILY Qty: 90 3RF letrozole 2.5 mg tablet 2.5 mg PO DAILY Qty: 90 3RF Primary Care Provider: Kristine Moncada Referrals: Kristine Moncada DO [Primary Care Provider] - 1 Week Activity Restrictions/Additional Instructions: Left forehead laceration 3 stitches can be removed in 1 week. The lip laceration sutures will dissolve. Ice to your forehead to prevent worsening of the bruising. Decrease the pain. Tylenol for pain. Return if severe headache, vomiting or not acting right. Tetanus was updated and is good for about 10 years. Print Language: Turkmen
[2023-07-26] MEDS: Diphth,Pertuss(Acell),Tet Vac 0.5 ML Vial IM (16:54)
[2023-07-26] MEDS: Lidocaine 1% (20 ml mdv) 20 ML Vial 10 ML INFILT (16:54)
[2023-07-26 17:38] VITALS: BP 149/84; PULSE 74; RESP 16; O2SAT 95
[2023-07-26 17:48] VITALS: BP 149/84; PULSE 74; RESP 16; TEMP 36.6; O2SAT 95
== END 2023-07-26 17:49 | disposition home or self-care (01) ==
LOC: ED 16:39
PROVIDERS: Emergency Provider Emergency Medicine; PCP Internal Medicine; Visit Provider Emergency Medicine
DX: S01.511A Laceration without foreign body of lip, initial encounter (principal); S01.112A Laceration without foreign body of left eyelid and periocular area, initial encounter; S01.81XA Laceration without foreign body of other part of head, initial encounter; W10.1XXA Fall (on)(from) sidewalk curb, initial encounter; Y92.480 Sidewalk as the place of occurrence of the external cause; Y93.01 Activity, walking, marching and hiking; Y99.8 Other external cause status; I10 Essential (primary) hypertension; I25.10 Atherosclerotic heart disease of native coronary artery without angina pectoris; Z79.899 Other long term (current) drug therapy; Z87.891 Personal history of nicotine dependence; Z23 Encounter for immunization
CPT/HCPCS: 12013; 90715; 99283

== ENCOUNTER → 2023-12-04 | Outpatient (CLI) | payer MEDICARE, SELFPAY ==
[2023-09-04 08:31] VITALS: BMI 36.9
--- NOTE | 2023-12-04 14:13 | BI_ITS ---
MAMMOGRAPHY - BILATERAL SCREENING REASON FOR EXAM: Female, 83 years old. Routine annual screening examination. PERTINENT HISTORY: Personal history of breast cancer. Mother with breast cancer. TECHNIQUE: Digital bilateral breast elsy (3D mammographic acquisition) in the CC and MLO projections. 2-D mediolateral oblique (MLO) and craniocaudad (CC) views of both breasts were obtained. CAD: Full Field Digital Mammography with Computer Added Detection was performed. COMPARISON: Comparison is made with prior study November 23, 2022 and November 22, 2021. FINDINGS: Breast Composition: There are scattered areas of fibroglandular density. There are no dominant masses or suspicious calcifications. Again, a tissue clip marker is seen in the upper outer quadrant of the right breast. The patient is status post lumpectomy. Postsurgical changes are seen. No other significant abnormalities are identified. There has been no significant change since the prior study. BI/SCRN MAMM (CAD)W/ELSY BILAT IMPRESSION: Stable bilateral screening mammogram. Yearly follow-up mammogram recommended. (A) ASSESSMENT CATEGORY: BIRADS Category 2: Benign. A letter regarding these results will be sent to the patient by the facility within 30 days. Approximately 10% of breast cancers are not detected by mammography. A normal mammogram should not delay biopsy of a clinically suspicious abnormality. [id number] Electronically Signed: Dashawn Rowe MD at 14:57 EDT ,
== END | disposition home or self-care (01) ==
PROVIDERS: PCP Internal Medicine; Referring Provider Internal Medicine Medical Oncology; Visit Provider Internal Medicine Medical Oncology
DX: Z12.31 Encounter for screening mammogram for malignant neoplasm of breast (principal)
CPT/HCPCS: 77063; 77067

== ENCOUNTER → 2023-12-06 | Outpatient (CLI) | payer MEDICARE, SELFPAY ==
[2023-09-04 08:31] VITALS: BMI 36.9
--- NOTE | 2023-12-06 12:51 | MRI_ITS ---
EXAM: MR CERVICAL SPINE WITHOUT INTRAVENOUS CONTRAST CLINICAL INDICATION: MRI cervical w/o contrast - neck pain and paresthia TECHNIQUE: Multiplanar and multisequence MR images of the cervical spine without intravenous contrast were performed. COMPARISON: CT cervical spine, 12/27/2014. FINDINGS: VERTEBRAE: Multilevel facet, uncovertebral joint, and endplate osteophytosis. No fracture. Multilevel degenerative anterolisthesis inclusive of C5 upon C6, C6 on C7, and C7 upon T1. No marrow space signal abnormality. There are mild degenerative changes in the remainder the visualized upper thoracic spine. SPINAL CORD: There is no distinct spinal cord signal abnormality identified. No deformation of the spinal cord. SOFT TISSUES: No significant abnormality. No prevertebral soft tissue swelling. LYMPH NODES: No significant abnormality. There is no cervical adenopathy. DISCS/SPINAL CANAL/NEURAL FORAMINA: C2-C3: Mild bilateral facet arthrosis. Ligamentum flavum thickening and/or redundancy. Mild spinal canal stenosis. No significant neural foraminal narrowing. C3-C4: Left greater than right facet and uncovertebral joint arthrosis resulting in mild left neural foraminal narrowing. No disc herniation or spinal canal stenosis. C4-C5: Disc height loss and disc desiccation. Disc bulge. Moderate facet and uncovertebral joint arthrosis and ligamentum flavum thickening and/or redundancy. Moderate spinal canal stenosis and mild bilateral neural foraminal narrowing. C5-C6: Disc height loss and disc desiccation. Trace degenerative anterolisthesis of C5 upon C6 with disc uncovering and small superimposed right central disc herniation. Facet and uncovertebral joint arthrosis. Mild to moderate bilateral neural foraminal narrowing and mild spinal canal stenosis exacerbated by ligamentum flavum thickening and/or redundancy. C6-C7: Disc height loss and disc desiccation. Trace degenerative anterolisthesis of C6 upon C7 with disc uncovering. Facet and uncovertebral joint arthrosis. Mild to moderate left and mild right neural foraminal narrowing. Mild spinal canal stenosis. C7-T1: Degenerative anterolisthesis of C7 upon T1 secondary to severe facet arthrosis. Mild disc uncovering. Mild spinal canal stenosis and mild bilateral neural foraminal narrowing. MRI/Spine Cervical (Routine) IMPRESSION: Multilevel degenerative changes resulting in mild to moderate multilevel spinal canal and neural foraminal stenosis. No distinct spinal cord signal abnormality. Electronically Signed: John Feliciano DO at 20:40 EDT ,
== END | disposition home or self-care (01) ==
LOC: MRI 12:47
PROVIDERS: PCP Internal Medicine; Referring Provider Internal Medicine; Visit Provider Internal Medicine
DX: M54.2 Cervicalgia (principal)
CPT/HCPCS: 72141

== ENCOUNTER → 2024-04-01 | Outpatient (CLI) | payer MEDICARE, SELFPAY ==
[2023-09-04 08:31] VITALS: BMI 36.9
--- NOTE | 2024-04-01 09:27 | US_ITS ---
STUDY: ABDOMINAL ULTRASOUND - RIGHT UPPER QUADRANT; ELASTOGRAPHY REASON FOR VISIT: Female, 83 years old. Fatty infiltration of the liver. TECHNIQUE: Ultrasound evaluation of the right upper quadrant was performed with real-time and static putnam-scale imaging. Point quantification shear wave elastography was performed (Vidly). TECHNICAL QUALITY: Adequate. COMPARISON: Comparison is made with prior study dated March 03, 2023. FINDINGS: Liver: The liver measures 14.7 cm. There is increased echogenicity consistent with fatty infiltration. The bile ducts are within normal limits. There is hepatic color flow. The direction of portal flow is hepatopetal. Questionable 4 cm x 3.9 cm x 3.3 cm isoechoic nodule in the posterior medial aspect of the right lobe of the liver. Correlation with a CT scan is recommended. Median liver stiffness measured 9 kPa. Gallbladder: Normal distended gallbladder. The gallbladder wall measures 2.0 mm. There is a negative sonographic Srivastava''s sign. There is no pericholecystic fluid. There are multiple echogenic structures within the gallbladder, consistent with multiple gallstones. Common Bile Duct (C.B.D.): The common bile duct measures 3.8 mm. Pancreas: There is normal echogenicity of the visualized pancreas. There is no demonstrated pancreatic mass or cyst. Right Kidney: Normal size of the right kidney. The right kidney measures 10 cm x 4.6 x 4.1 cm. Normal renal cortex. The right cortex measures 1.2 cm. 2 cysts are seen. The larger cyst measures 2.8 cm x 2.1 cm x 1.3 cm. There is no right hydronephrosis. US/Abdomen Limited IMPRESSION: 1. Liver stiffness measures 9 kPa compatible with F2-F3 (Mild to moderate liver fibrosis) Metavir score. 2. Questionable 4 cm x 3.9 cm x 3.3 cm hypodense nodule in the posterior medial aspect of the right lobe of the liver as described. Electronically Signed: Dashawn Rowe MD at 14:52 EST ,
== END | disposition home or self-care (01) ==
LOC: US 09:26
PROVIDERS: PCP Internal Medicine; Referring Provider Internal Medicine; Visit Provider Internal Medicine
DX: K76.0 Fatty (change of) liver, not elsewhere classified (principal)
CPT/HCPCS: 76705

== ENCOUNTER → 2024-05-01 | Outpatient (CLI) | payer MEDICARE, SELFPAY ==
[2023-09-04 08:31] VITALS: BMI 36.9
--- NOTE | 2024-05-01 13:46 | CT_ITS ---
PROCEDURE: ABDOMEN W/WO IV CONTRAST REASON FOR EXAM: History of breast cancer. Hiatal hernia. TECHNIQUE: Abdomen CT without and with intravenous contrast. No oral contrast. IV CONTRAST: 75 cc of Isovue-300. COMPARISON: None. FINDINGS: Lung bases: Tiny calcified granuloma in the right lower lobe. Coronary artery calcification and calcification of the mitral valve annulus. Minimal right lateral pericardial thickening. Liver: Unremarkable. Gallbladder: Tiny gallstones are seen in the region of the neck of the gallbladder. Spleen: Unremarkable. Pancreas: Unremarkable. Adrenals: Unremarkable. Kidneys: Unremarkable. Bowel: Visualized loops of bowel in the upper abdomen are unremarkable.. Small hiatal hernia. Lymph nodes: No suspicious lymph node enlargement. Vasculature: Mild diffuse atherosclerotic calcifications are noted. Peritoneum / Retroperitoneum: No ascites or free air at the upper abdomen. Bones: Degenerative changes of the spine. Minimal anterior listhesis of L5 on S1 most likely secondary to facet joint osteoarthritis. CT/Abdomen W/WO IV Contrast IMPRESSION: Hiatal hernia. Tiny gallstones in the neck of the gallbladder. One or more dose reduction techniques were used (e.g., Automated exposure contr ol, adjustment of the mA and/or kV according to patient size, use of iterative reconstruction technique). Reading Location: [facility]
[2024-05-01 14:02] VITALS: BP 132/70; PULSE 69; RESP 16; TEMP 36.1; O2SAT 96; BMI 35.5
[2024-05-01] MEDS: 0.9% Normal Saline (500mL Bag) 500 ML IV (14:18)
[2024-05-01 15:31] VITALS: BP 133/69; PULSE 64; RESP 18
== END | disposition home or self-care (01) ==
LOC: CT 13:45
PROVIDERS: PCP Internal Medicine; Referring Provider Internal Medicine; Visit Provider Internal Medicine
DX: K76.89 Other specified diseases of liver (principal)
CPT/HCPCS: 74170; Q9967

== ENCOUNTER → 2024-10-24 | Outpatient (CLI) | payer MEDICARE, SELFPAY ==
[2023-09-04 08:31] VITALS: BMI 36.9
--- NOTE | 2024-10-24 07:43 | NM_ITS ---
PROCEDURE: BONE SCAN WHOLE BODY 10/24/2024 REASON FOR EXAM: HYPERCALCEMIA TECHNIQUE: Whole-body planar images were obtained in anterior and posterior projection RADIOPHARMACEUTICAL: 25.0 mCi Technetium-99m MDP IV COMPARISON: January 21, 2020 FINDINGS: Bilateral knee prosthesis are noted. Lumbar scoliosis is similar to the prior. There is marked increased radiotracer activity in the left sternal manubrial region, similar to the prior. There is marked increased radiotracer activity in the left aspect of the lumbar spine at the L1-4 level, and marked increased activity at the right and left aspect in the region of the posterior elements of L5, increased compared to the prior. There is marked increased radiotracer activity at the level of the right and left hindfoot, new compared to the prior. There is mild increased radiotracer activity at multiple right costochondral junctions. NM/Bone Scan Whole Body IMPRESSION: There is marked increased radiotracer activity in the left sternal manubrial re gion, similar to the prior. There is marked increased radiotracer activity in the left aspect of the lumbar spine at the L1-4 level, and marked increased activity at the right and left aspect in the region of the posterior elements o f L5, increased compared to the prior. There is marked increased radiotracer activity at the level of the right and le ft hindfoot, new compared to the prior. This pattern is not typical for bony metastatic disease. Plain film correlation is recommended. Reading Location: [facility]
== END | disposition home or self-care (01) ==
LOC: NM 07:42
PROVIDERS: PCP Internal Medicine; Referring Provider Internal Medicine Hematology & Oncology; Visit Provider Internal Medicine Hematology & Oncology
DX: E83.52 Hypercalcemia (principal); C50.411 Malignant neoplasm of upper-outer quadrant of right female breast; Z17.0 Estrogen receptor positive status [ER+]
CPT/HCPCS: 78306; A9503

== ENCOUNTER 2024-10-25 09:11 | Emergency (ER) | payer MEDICARE, SELFPAY ==
[2023-09-04 08:31] VITALS: BMI 36.9
[2024-10-25 09:11] VITALS: BP 128/65; PULSE 61; RESP 16; TEMP 36.6; O2SAT 100
[2024-10-25 09:27] VITALS: BMI 35.7
--- NOTE | 2024-10-25 09:32 | EX.ED.DYSGE1 ---
HPI History of Present Illness Chief Complaint: Abn Labs Detail of Chief Complaint: Sent to the ER for abnormal labs. Informant: patient Onset/Context/Timing Onset: Yesterday (Labs were drawn yesterday. She does not know what blood work is abnormal) Quality: Abnormal blood work Location: Based on review of labs kidney Current Severity: Moderate Maximum Severity: Moderate Worsened by: Unknown Relieved by: Nothing Associated Symptoms Associated Symptoms: Decreased urine output over the past 1 month Narrative Narrative: Patient is a 84-year-old woman. She had blood work obtained on October 17, 2024. Her BUN and creatinine at that time was 30 and 2.35. She had blood work yesterday on the with a BUN/creatinine of 34 and 4.98. She had a prior elevated calcium 11.7. Her calcium yesterday was normal. Patient denies cardiac or respiratory symptoms. Patient denies GI symptoms. Patient denies any urologic symptoms other than decreased urine output. Prior similar symptoms: Yes (She was seen by Dr. De Los Santos flight test data acquisition technician 1 month ago) Recent Illness/Hospitalization: Yes [facility] Medical History Hyperlipidemia Vitamin D deficiency Atherosclerosis of coronary artery of [place] heart without angina pectoris Asthma Screening mammogram, encounter for Acute bronchitis, unspecified Bone pain Meningioma Fracture of left wrist Hiatal hernia Osteoarthritis Breast cancer, right Anemia Spinal stenosis Osteopenia IBS (irritable bowel syndrome) Diverticulosis of colon Vitiligo Arthritis Obesity History of gastroesophageal reflux (GERD) Benign essential hypertension Acquired hypothyroidism Home Medications ?Medication ?Instructions ?Recorded ?Last Taken ?Type coQ10 (ubiquinol) 100 mg capsule 100 mg PO DAILY 12/27/14 Unknown History valsartan 160 mg tablet 160 mg PO BID 02/24/21 08/19/22 History amoxicillin 500 mg capsule 2,000 mg PO .COMPLEX 07/27/22 Unknown History clotrimazole-betamethasone 1 1 applic topical ONCE 07/27/22 Unknown History %-0.05 % topical cream omeprazole 40 mg capsule,delayed 40 mg PO DAILY 07/27/22 08/19/22 History release acetaminophen 500 mg tablet (Pain 1,500 mg PO QAM 08/05/22 Unknown History Relief (acetaminophen)) denosumab 60 mg/mL subcutaneous 60 mg subcut [id number] 08/05/22 Unknown History syringe rosuvastatin 10 mg tablet (Crestor) 10 mg PO DAILY 04/03/23 Unknown History amlodipine 5 mg tablet 5 mg PO BID 04/04/23 Unknown History atenolol 100 mg tablet 50 mg PO BID 10/09/23 Unknown History chlordiazepoxide-clidinium 5 1 cap PO ONCE PRN 06/10/24 Unknown History mg-2.5 mg capsule (Librax (with clidinium)) furosemide 20 mg tablet 20 mg PO QDAY 06/10/24 Unknown History hydrochlorothiazide 12.5 mg tablet 6.25 mg PO BID 06/10/24 Unknown History isosorbide mononitrate 30 mg 30 mg PO QDAY 06/10/24 Unknown History tablet,extended release 24 hr levothyroxine 150 mcg tablet 150 mcg PO .COMPLEX 06/10/24 Unknown History lutein 20 mg tablet 20 mg PO QDAY 06/10/24 Unknown History mecobalamin (vitamin B12) 500 mcg 500 mcg PO MOWEFR 06/10/24 Unknown History chewable tablet quinine sulfate 260 mg tablet 260 mg PO .prn PRN Leg Cramps 06/10/24 Unknown History letrozole 2.5 mg tablet 2.5 mg PO DAILY #90 tabs 07/29/24 Unknown Rx Allergy/AdvReac Type Severity Reaction Status Date / Time hydroxychloroquine Allergy Unknown chest pain Verified 10/25/24 09:13 Beef Containing Products AdvReac Severe Other Verified 10/25/24 09:13 hydrochlorothiazide (From AdvReac Severe Other Verified 10/25/24 09:13 Diovan HCT) prednisone AdvReac Severe Chest Verified 10/25/24 09:13 tightness valsartan (From Diovan HCT) AdvReac Severe Other Verified 10/25/24 09:13 levofloxacin (From Levaquin) AdvReac Intermediate Mucosal Verified 10/25/24 09:13 lesions pramipexole di-HCl (From AdvReac Intermediate Unknown Verified 10/25/24 09:13 Mirapex) tramadol AdvReac Intermediate Other Verified 10/25/24 09:13 Family History Mother Arthritis Breast cancer Hypertension Thyroid disorder Father Alzheimers disease Surgical History History of colonoscopy S/P lumpectomy, right breast (~12/2018) Hx of resection of meningioma History of total right hip replacement History of total right knee replacement (TKR) History of total left knee replacement (TKR) Hx of cataract removal with insertion of prosthetic lens Social History Smoking Status: Former smoker how long ago did patient quit smokin second hand exposure: No alcohol intake: current alcohol intake frequency: holidays/special occasions only substance use type: does not use caffeine: Yes what type of physical activity do you participate in: none frequency: does not exercise seatbelt use: always do you feel safe at home: Yes ROS ROS ED Constitutional Constitutional ED: Denies chills, fever(s), subjective, sweats or weight loss Cardiovascular Cardiovascular: Denies chest pain, orthopnea, palpitations or paroxysmal nocturnal dyspnea Respiratory/Chest Respiratory/Chest: Denies cough, dyspnea, dyspnea on exertion, orthopnea or paroxysmal nocturnal dyspnea Gastrointestinal Gastrointestinal: Denies abdominal pain, nausea or vomiting Genitourinary Genitourinary ED: Reports other Details: Decreased urine output x 1 month ; Denies dysuria, hematuria or urinary frequency Musculoskeletal Musculoskeletal: Denies arthralgias or myalgias Integumentary Denies rash Neurologic Neurologic: Denies paresthesias or weakness Hematologic/Lymphatic Hematologic/Lymphatic: Reports systems reviewed and no addt'l complaints, except as documented EXAM Physical Exam Const Vital Signs: 10/25/24 09:11 10/25/24 09:23 Temperature 97.9 F Temperature Source Oral Pulse Rate 61 Respiratory Rate 16 Respiratory Effort Normal Non-Labored Respiratory Pattern Normal Blood Pressure 128/65 H Blood Pressure Mean 86 Pulse Ox 100 Oxygen Delivery Method Room Air Positive well nourished and well developed General Appearance ED: well developed and NAD; Negative for pallor HEENT Reports moist mucous membranes HEENT Narrative: Head is atraumatic normocephalic. Ears normal. Nares patent Eyes PERRL and EOMs intact bilaterally General Eye ED: Negative for pale conjunctiva or scleral icterus Neck no lymphadenopathy, supple and no JVD Resp normal respiratory effort and clear to auscultation bilaterally Cardio regular rate, regular rhythm, S1 normal heart sound, S2 normal heart sound and no murmurs GI normal to inspection, nondistended, normoactive bowel sounds, non-tender, non-distended and no masses; Negative for hepatosplenomegaly Extremity normal to inspection General Extremety ED: Negative for edema or tenderness General Extremity: Negative for edema Neuro oriented x3 and CN's II-XII intact bilaterally Neuro Narrative: Gait was normal. Patient was seen walking from the restroom. Sensorium / Orientation: alert Psych mental status grossly normal Skin no rashes or lesions noted, no wounds and skin turgor normal General Skin Exam: Negative for jaundice or pallor MDM MDM MDM Narrative Medical decision making narrative: Patient is a pleasant elderly woman who was sent to the ER for elevated creatinine. Spoke with Dr. De Los Santos. His only request was to have a bladder scan performed to see if patient has urinary retention. There is no evidence of urinary retention. Therefore will discharge to home. His office will contact her for follow-up within the next week for outpatient workup. Blood work was not obtained since this is a chronic issue and she has a flight test data acquisition technician. She has not received any chemo. She did have a history of breast cancer diagnosed 5 years ago. Hematology/oncology note was reviewed. The blood work was obtained as a annual checkup. Patient had no postvoid residual. Management Discussion w/another healthcare provider: Desk Pen Set Assembler (Spoke with her flight test data acquisition technician. Documented the MDM portion of the EMR) Discharge Plan Triage Chief Complaint: Abn Labs ED Provider: Giovanny Quezada Dx/Rx/DC Orders Clinical Impression: Acute kidney injury superimposed on stage 3a chronic kidney disease, Acquired hypothyroidism, Malignant neoplasm of upper-outer quadrant of right female breast, History of gastroesophageal reflux (GERD), Atherosclerosis of coronary artery of [place] heart without angina pectoris, Hyperlipidemia Instructions: ED Chronic Kidney Disease (CKD) Prescriptions: No Action omeprazole 40 mg capsule,delayed release(DR/EC) 40 mg PO DAILY quinine sulfate 260 mg tablet 260 mg PO .prn PRN (Reason: Leg Cramps) hydrochlorothiazide 12.5 mg tablet 6.25 mg PO BID Patient Comments: take 6.25 mg in the morning and 12.5 nightly clotrimazole-betamethasone 1-0.05 % cream 1 applic topical ONCE Patient Comments: TAKE DIRECTED DAILY NEEDED amoxicillin 500 mg capsule 2,000 mg PO .COMPLEX Patient Comments: TAKE 4 CAPSULES BY MOUTH DIRECTED. ONE HOUR PRIOR TO DENTAL WORK Rx Instructions: 2,000 mg orally PRN; TAKE 4 CAPSULES BY MOUTH DIRECTED. ONE HOUR PRIOR TO DENTAL WORK acetaminophen [Pain Relief (acetaminophen)] 500 mg tablet 1,500 mg PO QAM rosuvastatin [Crestor] 10 mg tablet 10 mg PO DAILY amlodipine 5 mg tablet 5 mg PO BID mecobalamin (vitamin B12) 500 mcg tablet,chewable 500 mcg PO MOWEFR furosemide 20 mg tablet 20 mg PO QDAY isosorbide mononitrate 30 mg tablet extended release 24 hr 30 mg PO QDAY lutein 20 mg tablet 20 mg PO QDAY Rx Instructions: give with meal/snack chlordiazepoxide-clidinium [Librax (with clidinium)] 5-2.5 mg capsule 1 cap PO ONCE PRN atenolol 100 mg tablet 50 mg PO BID valsartan 160 mg tablet 160 mg PO BID levothyroxine 150 mcg tablet 150 mcg PO .COMPLEX Rx Instructions: 150 mcg orally daily except Sundays takes 75 mcg; coQ10 (ubiquinol) 100 MG capsule 100 mg PO DAILY denosumab 60 mg/mL syringe 60 mg subcut [id number] letrozole 2.5 mg tablet 2.5 mg PO DAILY Qty: 90 3RF Primary Care Provider: Kristine Moncada Referrals: Kristine Moncada DO [Primary Care Provider] - Jamin De Los Santos MD [Med Staff - Consulting] - 1 Week Print Language: Greek Disposition Disposition: Home, Self Care
[2024-10-25 13:18] VITALS: BP 123/65; PULSE 66; RESP 16; TEMP 36.6; O2SAT 99
== END 2024-10-25 13:19 | disposition home or self-care (01) ==
PROVIDERS: Emergency Provider Emergency Medicine; PCP Internal Medicine; Visit Provider Emergency Medicine
DX: R79.89 Other specified abnormal findings of blood chemistry (principal); C50.411 Malignant neoplasm of upper-outer quadrant of right female breast; N18.31 Chronic kidney disease, stage 3a; N17.9 Acute kidney failure, unspecified; I25.10 Atherosclerotic heart disease of native coronary artery without angina pectoris; Z87.891 Personal history of nicotine dependence; I12.9 Hypertensive chronic kidney disease with stage 1 through stage 4 chronic kidney disease, or unspecified chronic kidney disease; E03.9 Hypothyroidism, unspecified; E78.5 Hyperlipidemia, unspecified; K21.9 Gastro-esophageal reflux disease without esophagitis; Z79.899 Other long term (current) drug therapy; Z79.890 Hormone replacement therapy; Z96.643 Presence of artificial hip joint, bilateral
CPT/HCPCS: 99282

== ENCOUNTER → 2024-10-28 | Outpatient (CLI) | payer MEDICARE, SELFPAY ==
[2023-09-04 08:31] VITALS: BMI 36.9
--- NOTE | 2024-10-28 10:10 | RAD_ITS ---
PROCEDURE: LUMBAR SPINE 2 OR 3 VIEWS 10/28/2024 REASON FOR EXAM: R/O METS TECHNIQUE: LUMBAR SPINE 2 OR 3 VIEWS FINDINGS: No evidence of acute fracture or dislocation. Levoscoliosis. Severe degenerative changes of the lumbar spine. Severe lumbar facet arthropathy. RAD/Lumbar Spine 2 or 3 Views IMPRESSION: Spondylosis. Spondylolisthesis. Reading Location: [id number]
--- NOTE | 2024-10-28 10:11 | RAD_ITS ---
PROCEDURE: FOOT MIN 3 VIEWS 10/28/2024 REASON FOR EXAM: R/O METS TECHNIQUE: FOOT MIN 3 VIEWS Laterality: Right COMPARISON: None. FINDINGS: BONES: No acute fracture or focal osseous lesion. Hammertoe deformities noted. Small plantar and dorsal calcaneal spurs. JOINTS: No dislocation. Minimally narrowed 1st metatarsophalangeal joint. SOFT TISSUES: The soft tissues are unremarkable. RAD/Foot min 3 Views IMPRESSION: No acute osseous abnormality. Reading Location: [id number]
--- NOTE | 2024-10-28 10:15 | RAD_ITS ---
PROCEDURE: FOOT MIN 3 VIEWS 10/28/2024 REASON FOR EXAM: R/O METS TECHNIQUE: FOOT MIN 3 VIEWS Laterality: COMPARISON: 09/24/2021. FINDINGS: No evidence of acute fracture or dislocation. Calcaneal spur. The soft tissues are unremarkable. RAD/Foot min 3 Views IMPRESSION: No acute osseous abnormality. Reading Location: [id number]
== END | disposition home or self-care (01) ==
LOC: RAD 10:03
PROVIDERS: PCP Internal Medicine; Referring Provider Internal Medicine Hematology & Oncology; Visit Provider Internal Medicine Hematology & Oncology
DX: C50.411 Malignant neoplasm of upper-outer quadrant of right female breast (principal); Z17.0 Estrogen receptor positive status [ER+]
CPT/HCPCS: 72100; 73630

== ENCOUNTER → 2024-10-31 | Outpatient (CLI) | payer MEDICARE, SELFPAY ==
[2024-10-28 11:43] VITALS: BMI 36.9
--- NOTE | 2024-10-31 11:34 | US_ITS ---
PROCEDURE: KIDNEY AND BLADDER 10/31/2024 REASON FOR EXAM: CKD 3A TECHNIQUE: KIDNEY AND BLADDER COMPARISON: Prior study dated April 01, 2024. FINDINGS: Kidneys: Normal renal sizes, parenchymal thicknesses, and echotextures. [place]: No hydronephrosis Cysts or Masses: 2 cysts are seen in the right kidney. The larger cyst is in the upper pole and measures 2.5 cm 2 cm 1.6 cm. A septation is seen within it. Other: None RIGHT Kidney Size: 10.2 cm x 4.9 cm x 4.1 cm Volume: 107.37 mL Cortical Thickness (if discernible): 10 mm (>6mm is normal) LEFT Kidney Size: 9.5 cm x 4.5 cm x 4.1 cm Volume: 90.43 mL Cortical Thickness (if discernible): 10 mm (>6mm is normal) The urinary bladder is unremarkable. US/Kidney and Bladder IMPRESSION: Stable examination. There are 2 right renal cysts. Reading Location: [id number]
== END | disposition home or self-care (01) ==
LOC: US 11:32
PROVIDERS: PCP Internal Medicine; Referring Provider Internal Medicine Nephrology; Visit Provider Internal Medicine Nephrology
DX: N18.31 Chronic kidney disease, stage 3a (principal)
CPT/HCPCS: 76770

== ENCOUNTER → 2024-11-12 | Outpatient (CLI) | payer MEDICARE, SELFPAY ==
[2024-10-28 11:43] VITALS: BMI 36.9
[2024-11-12 13:42] LABS: Anion Gap 14 (5-15); BUN 14 mg/dL (4-19); BUN/Creat Ratio 7.0 RATIO (10-20); Calcium,Total 8.4 mg/dL (7.6-11.0); Carbon Dioxide 20.8 mmol/L (21.0-32.0); Chloride 107 mmol/L (98-108); Glucose 112 mg/dL (70-99); Potassium 3.7 mmol/L (3.3-5.1)
== END | disposition home or self-care (01) ==
LOC: PAVLAB 12:53
PROVIDERS: PCP Internal Medicine; Referring Provider Internal Medicine Nephrology; Visit Provider Internal Medicine Nephrology
DX: N18.31 Chronic kidney disease, stage 3a (principal)
CPT/HCPCS: 36415; 80048

== ENCOUNTER → 2024-12-10 | Outpatient (CLI) | payer MEDICARE, SELFPAY ==
--- OUTSIDE RECORDS SUMMARY | 2024-09-26 13:46 | XMS RPT_ITS ---
Author Name Auto Generated Organization [facility] Care Team Providers Care Poultry Raiser Name Role Phone PREBISH, VEENA Attending Unavailable PREBISH, VEENA Referring Unavailable FAST, LESTER A Primary Care Unavailable PREBISH, VEENA Attending Unavailable FAST, LESTER A Primary Care Unavailable PREBISH, VEENA Attending Unavailable PREBISH, VEENA Referring Unavailable FAST, LESTER A Primary Care Unavailable PREBISH, VEENA Attending Unavailable FAST, LESTER A Primary Care Unavailable PREBISH, VEENA Attending Unavailable PREBISH, VEENA Referring Unavailable FAST, LESTER A Primary Care Unavailable PREBISH, VEENA Attending Unavailable PREBISH, VEENA Referring Unavailable FAST, LESTER A Primary Care Unavailable PREBISH, VEENA Attending Unavailable FAST, LESTER A Primary Care Unavailable PREBISH, VEENA Attending Unavailable PREBISH, VEENA Referring Unavailable FAST, LESTER A Primary Care Unavailable TODD GARCIA Attending Unavailable PREBISH, VEENA Referring Unavailable FAST, LESTER A Primary Care Unavailable PREBISH, VEENA Attending Unavailable PREBISH, VEENA Referring Unavailable FAST, LESTER A Primary Care Unavailable PREBISH, VEENA Attending Unavailable PREBISH, VEENA Referring Unavailable FAST, LESTER A Primary Care Unavailable PREBISH, VEENA Referring Unavailable FAST, LESTER A Primary Care Unavailable TODD GARCIA Referring Unavailable FAST, LESTER A Primary Care Unavailable TODD GARCIA Referring Unavailable FAST, LESTER A Primary Care Unavailable PROBLEMS DATE TYPE CONDITION / CODE ATTENDING STATUS [facility] 11/01/2021 Active Lumbar radiculop athy / M54.16(ICD-10) PREBISH, VEENA Active [facility] 11/01/2021 Active Myofascial pain / M79.18(ICD-10) PREBISH, VEENA Active [facility] 09/26/2024 Active Thoracic spine p ain / M54.6(ICD-10) PREBISH, EVENA Active [facility] 09/26/2024 Active Myalgia / M79.10(ICD-10) PREBISH, [facility] 09/26/2024 Active Spinal stenosis of lumbar region with neurogenic claudication / M48.062(ICD-10) [facility] 07/11/2024 Active Cervical pain (n sincere) / M54.2(ICD-10) PRE, [facility] 06/18/2024 Active Follow Up / UNK(Unknown) TODD GOINS [facility] 04/13/2022 Active Lumbar spondylos is / M47.816(ICD-10) PRE, [facility] 12/14/2023 Active Spinal stenosis of lumbar region, unspecified whether neurogenic claudication present / M48.061(ICD-10) [facility] 12/14/2023 Active Thoracic spondyl osis without myelopathy / M47.814(ICD-10) [facility] PROCEDURES No Procedure Records Found RESULTS CNPN Observed: 09/27/2024 12:00 AM Status: COMPLETED Source: [facility] Telephone (NEAGCLM) ALYCE URRUTIA ([id number]) 1940 F NFR Date Time Provider Department 09/27/24 CESAR EVANGELISTA NEAGCLM During your visit today, we recorded the following information about you: Joy Green 09/27/2024 1:53 PM Signed Received a referral for patient to be seen by one of our providers. Made 1st attempt to contact patient to discuss scheduling. Spoke with the patient, who expressed understanding and appreciation of the information provided. Patient being evaluated for SCS, has thoracic MRI in Epic but not lumbar. Patient will be checking with PCP who is outside of [facility] to see if she has had the lumbar recently. Patient will call back to schedule once she has spoken with PCP. If no lumbar MRI then she will need to see [facility] first to order the lumbar MRI, If she has had the lumbar MRI and can provide a disc or have the MRI pushed then she can see Dr Jay. Allergies As of Date: 09/27/2024 Noted Allergy Reaction PREDNISONE 04/26/2012 12 - Shortness of Breath Comments: Pallor, chest pain, palpitations ORAL MEDICATIONS BEEF CONTAINING PRODUCTS 08/26/2014 5 - Intolerance LEVAQUIN (LEVOFLOXACIN) 08/28/2007 14 - Other: See Comments Comments: sores in mouth/joint pain MIRAPEX (PRAMIPEXOLE) 04/26/2012 5 - Intolerance Comments: Doesn't help leg cramps TRAMADOL 12/23/2014 5 - Intolerance Comments: Pt gets jittery VALSARTAN-HYDROCHLOROTHIAZIDE 04/26/2012 14 - Other: See Comments Comments: Worsens nocturnal leg cramps. Patient can take valsartan alone with no issues Date Reviewed: 09/26/2024 Reviewed by: Veena Meléndez APRN.LEAD APPLICATION ARCHITECT - Fully Assessed Prescriptions as of 09/27/2024 - amoxicillin (AMOXIL) 500 mg capsule Take 4 capsules by mouth as directed. ONE HOUR PRIOR TO DENTAL WORK - letrozole (FEMARA) 2.5 mg tablet Take 1 tablet by mouth once daily. - spironolactone (ALDACTONE) 25 mg tablet - oxybutynin (DITROPAN) 5 mg tablet Take 5 mg by mouth once daily. - atenolol (TENORMIN) 25 mg tablet Take 25 mg by mouth twice daily. - ASPIRIN ORAL Take 81 mg by mouth. - ACETAMINOPHEN PAIN RELIEF ORAL Take by mouth. - anastrozole (ARIMIDEX) 1 mg tablet Take 1 mg by mouth once daily. - denosumab (PROLIA) 60 mg/mL Inject 60 mg subcutaneously one time only. - rosuvastatin (CRESTOR) 10 mg tablet Take 10 mg by mouth daily at bedtime. - cyanocobalamin, vitamin B-12, (VITAMIN B-12 ORAL) Take by mouth four times a week. - UBIQUINONE ORAL Take 100 mg by mouth once daily. - tiZANidine (ZANAFLEX) 4 mg tablet Take 1 tablet by mouth twice daily as needed. - chlordiazePOXIDE-clidinium (LIBRAX) 5-2.5 mg per capsule Take 1 tablet by mouth DAILY. NEEDED WHEN PT EATS BEEF PRODUCTS Indications: FOR bEEF PRODUCTS EATEN - clotrimazole-betamethasone (LOTRISONE) cream Apply 1 application to affected area as needed (for rash). as needed for rash - Diclofenac Sodium (VOLTAREN) 1 % gel Apply 1 g to affected area three times daily as needed. - QUININE, BULK, MISC 250 mg as needed. - cholecalciferol, vitamin D3, 50,000 unit tab Take by mouth every Monday. - valsartan (DIOVAN) 160 mg tablet Take 160 mg by mouth twice daily. - amLODIPine (NORVASC) 5 mg tablet Take 5 mg by mouth twice daily. - omeprazole 20 mg capsule Take 20 mg by mouth once daily. - LUTEIN 20 MG CAP Take one(1) tablet daily. - SYNTHROID 150MCG TABLET Take 150 mcg by mouth once daily. 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] 07/17/2007 OA (Osteoarthritis) of Knee [M17.9] 08/19/2009 Endometrial mass [N94.89] 10/05/2012 10/29/2012 Lumbar spondylosis [M47.816] 07/23/2014 DDD (degenerative disc disease), lumbar [M51.36*07/23/2014 GERD (gastroesophageal reflux disease) [K21.9] 12/19/2014 Asthma [J45.909] 12/19/2014 Anemia [D64.9] 12/19/2014 CKD (chronic kidney disease) [N18.9] 12/19/2014 Cervical spondylosis without myelopathy [M47.81*01/06/2015 Neck pain [M54.2] 01/06/2015 Bilateral occipital neuralgia [M54.81] 01/06/2015 Cervical strain [S16.1XXA] 01/06/2015 Non morbid obesity [E66.9] 06/25/2015 H/O total hip arthroplasty [Z96.649] 07/06/2015 Altered gait [R26.9] 08/27/2015 Weakness of right hip [R29.898] 08/27/2015 Chronic pain of left knee [M25.562, G89.29] 10/05/2015 Iron deficiency anemia, unspecified [D50.9] 06/21/2016 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.9] 06/21/2016 Status post knee replacement [Z96.659] 06/27/2016 Weakness of both lower extremities [R29.898] 01/20/2017 Chronic bilateral low back pain without sciatic*01/20/2017 Degenerative disc disease, lumbar [M51.369] 03/15/2017 Lumbar facet joint pain [M54.59] 03/15/2017 Chronic low back pain without sciatica [M54.50,*09/20/2017 Chronic right-sided low back pain without sciat*10/30/2017 Myofascial pain [M79.18] 11/01/2021 Spinal stenosis, lumbar region, without neuroge*11/01/2021 Lumbar radiculopathy [M54.16] 11/01/2021 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 Negative for chills, fever and unexpected weight change. Genitourinary: Negative for difficulty urinating. Musculoskeletal: Positive for arthralgias, back pain, gait problem, myalgias, neck pain and neck stiffness. Negative for joint swelling. Neurological: Negative for weakness, numbness and headaches. Psychiatric/Behavioral: Positive for sleep disturbance. Negative for dysphoric mood and suicidal ideas. The patient is not nervous/anxious. Veena Meléndez APRN.CNP 09/26/2024 4:48 PM Signed [facility] Today's Date: 09/26/2024 Last Visit: 02/09/2023 Name: Alyce Urrutia : 1940 Purpose: SPRINT PNS Consult Chief complaint: low back pain Pertinent Past Medical History: Benign Meningeal Neoplasms, Occipital Neuralgia, HTN, GERD, CKD, Hypothyroidism, Knee OA s/p bilateral TKA, Obesity, s/p right Total Hip Arthroplasty, Pertinent Past Surgeries: TKR, THR Plan at last visit: (Seen on 12/14/2023 by Veena Meléndez CNP) PLAN: Alyce Delvalle Urrutia would benefit from the following to reach personal goals for decreasing pain, improving function and work participation, and/or improving quality of life: Medications: No Changes - Continue Current Medications Procedure: TRIGGER POINT INJECTION: Location (muscle groups): bilateral thoracic paraspinal and rhomboid region Medication Injected: 0.25% Bupivacaine # Sessions Requested: 1 Approximate Time Between Sessions (if applicable): 3-4 weeks PURPOSE: To diagnose trigger points as a cause of patient's pain and immobility. To provide therapeutic pain relief to improve range of motion, ADL's and community participation. EXAM FINDINGS: Trigger Point Present (Hyper excitable area of the body, where the application of a stimulus provokes pain to a greater degree than the surrounding area): YES FAILED TREATMENTS: Studies: None Functional Lutheran: NONE Referrals: No additional considerations at present Follow-up: [address] Chakraborty, Dr Garcia or Dr Chicas to discuss the SPRINT Depending on response to the above plan, consider: Erector Spinae Injections, MBB/RFA Right L2-3,3-4; Electrodiagnostic Study - Interval History: Overall pain and functional disability since last visit: Unchanged New Complaints since last visit: No Alyce Urrutia is an 83-year-old female presenting for follow-up on back and neck pain and to discuss the spinal cord stimulator. Alyce reports that recent trigger point injections provided no relief. She describes her neck pain as intermittent electric shock-like sensations that travel from her neck up to her brain. These episodes occur unpredictably and are described as scary. The pain is bilateral and does not radiate into her arms. She notes that the pain is not constant and that she can manage it by pausing momentarily when it occurs. She has not tried gabapentin and is hesitant to start it due to concerns about potential side effects, especially given her current stressors. She is currently overwhelmed with caregiving responsibilities for her , who has dementia and multiple physical ailments. He is scheduled for back surgery on November 01, and she is in the process of arranging post-operative rehabilitation for him. She expresses concern about managing additional treatments for herself at this time due to her caregiving duties and her own health challenges. . Current Pain Medications: Neuropathics: None NSAIDS: Muscle Relaxants: Topicals: Other Prescription or OTC Pain Medications: Tylenol OTC - partial relief Opioids (when applicable): Date last refilled: Quantity supplied: Quantity remaining: Last taken: Tolerating Medication: N/A Medications helping improve ADL's and Self-care: N/A Current Therapies Attended: No Current Therapies Studies Obtained (when obtained, relevant findings reported below): None Notable Events During Course of Treatment: Initial HPI: (Obtained on 10/21/2021) Alyce Urrutia is a 81 year old female, who presents having been referred by Self, for evaluation and management of the above-mentioned chief complaint. This has been present for the past five years. The onset of symptoms was not sudden and was without associated trauma. The pain is most severe at night, she has gradual improvement as the day progresses. Treatments prior to initial presentation include the following: Medications (See below), Injections (See below), Modalities (eg. Heat, Ice), Physical Therapy , Acupuncture, Home Exercise Program , and Activity Modification. She has had a She has previously seen a Dr. Mckeon for pain management, last in 2018, who performed lumbar RFA, with minimal relief. At that time, she had primarily axial low back pain. 03/2022 - Discontinue Gabapentin, ineffective Data Reviewed: PAIN PROCEDURES: DATE PROCEDURE IMPROVEMENT 08/2024 TPI none 11/29/2023 L erector spinae block T5 none 11/09/2023 R erector spinae block T5 none 09/11/2023 B/L RFA L2-L4 100% in that region 07/26/2023 B/L MBNB L2-L4 100% or 6 hrs. 07/10/2023 B/L MBNB L2-4 100% for 4 hrs 04/13/2023 ILESI L1-L2 75%for 1 week 12/19/2022 RFA, Bilat L4-5,5-S1 No relief (positive Diagnostic Response) 12/05/2022 RFA, Bilat T9-10,11-12 No relief (positive Diagnostic Response) 10/10/2022 MBB, Bilat T9-10,11-12 Positive Diagnostic (>80% x > 4 hours) 09/21/2022 MBB, Bilat T9-10,11-12 Positive Diagnostic (>80% x > 4 hours) 05/18/2022 RFA bilateral L4-L5, L5-S1 100% x 4-5 months 04/13/2022 Bilateral MBNB L4-L5, L5-S1 95% on the left and 85% on the right 03/30/2022 Bilateral MBNB L4-L5, L5-S1 95% 01/26/22 RFA R Cluneal Nerve 30% 12/01/2021 Right Cluneal Nerve Blocks Nearly 100% x 8 hours (positive diagnostic) MEDICATIONS Taken TO DATE (for the chief complaint(s)): Membrane Stabilizers: Neurontin (Gabapentin): Discontinued - No Benefit and had side effects NSAIDS: None Muscle Relaxants: Zanaflex (Tizanidine): Beneficial Topicals: None Other Prescription or OTC Pain Medications: Tylenol (Acetaminophen): Beneficial Opioids: None Current Anti-depressants or Mood-Stabilizers: None Current Anti-Coagulants: None SOCIAL HISTORY No social history on file. Allergies: ALLERGIES Allergen Reactions Prednisone Shortness of Breath Pallor, chest pain, palpitations ORAL MEDICATIONS Beef Containing Pro* Intolerance Levaquin [Levofloxa* Other: See Comments sores in mouth/joint pain Mirapex [Pramipexol* Intolerance Doesn't help leg cramps Tramadol Intolerance Pt gets jittery Valsartan-Hydrochlo* Other: See Comments Worsens nocturnal leg cramps. Patient can take valsartan alone with no issues 09/12/2024 09/23/2024 INTAKE PAIN ASSESSMENT Are you having pain associated with your visit today? Yes, Provider notified Yes, Provider notified Pain Level 8 8 Pain Location Back-Lower Back-Lower Description Spasm;Stiffness Duration Amount of Time 10 Duration Units Years Frequency Continuous Intervention/Comfort measure Medication Compliance: PDMP website checked and validated on 09/26/2024 by Veena Meléndez APRN.LEAD APPLICATION ARCHITECT All prescriptions have been APPROPRIATELY filled. No suspicious activity was identified. Recent Drug screens: 10/21/2021 02/09/2023 12/14/2023 [facility] SPINE COMBINATION Questionnaire GREENLIGHT Completed Date 10/21/2021 Questionnaire Opiod Risk Tool Opiod Risk Tool Opiod Risk Tool Completed Date 10/21/2021 02/09/2023 12/14/2023 Comments 0 No question data found. (All drug screens are appropriate unless indicated otherwise) Risk Assessment: MARCELO-7: 10/21/2021 MARCELO - 7 SCORES Score 0 (0-4) minimal anxiety, (5-9) mild anxiety, (10-14) moderate anxiety, (15-21) severe anxiety PHQ-9: 01/06/2015 09/14/2017 10/21/2021 PHQ-9 Score 1 2 0 (0-4) minimal depression, (5-9) mild depression, (10-14) moderate depression, (15-19) moderately severe depression, (20-27) severe depression Diagnostic Studies: Relevant Imaging: MRI Spine Report MRI THORACIC SPINE WO IVCON Exam End: 07/11/2024 12:59 PM (Final result) Narrative: * * *Final Report* * * DATE OF EXAM: Jul 11 2024 12:55PM [facility] 0325 - MRI THORACIC SPINE WO IVCON / PROCEDURE REASON: multiple diagnoses * * * * Physician Interpretation * * * * EXAMINATION: MRI THORACIC SPINE WO IVCON CLINICAL HISTORY: Thoracic spine pain Lumbar radiculopathy TECHNIQUE: Routine thoracic spine MR protocol. MQ: [id number] COMPARISON: Thoracic radiograph 07/14/2022. MRI lumbar spine 01/18/2022. RESULT: Counting reference: Craniocervical and lumbosacral junctions. For the purposes of this report, Assume the first normal thoracic rib is at the T1 level. Localizer images: Mild cervical spondylosis levocurvature of the thoracolumbar spine with leftward apex at L2. Right total hip arthroplasty. T2 hyperintense lesions in the bilateral kidneys, incompletely assessed, likely representing cysts . Right upper pole complex cystic lesion with septations. Small posterior fossa with vermian hypoplasia enlarged inferior/retrocerebellar CSF space. Alignment: Dextro curvature of the thoracic spine with mild apex at T9. Minimal anterolisthesis of C7 on T1. Exaggerated thoracic kyphosis, mild Cord: The visualized cord is within normal limits of signal intensity and morphology. Mild expansion of the central canal with syrinx formation most notably spanning T5-T9 with central canal measuring approximately 2 mm (series 9, image 16 through 43). Bone marrow signal/fracture: No evidence of pathologic marrow infiltration. No evidence of prior fracture. Scattered Schmorl's nodes involving the inferior endplates of T4, T5, T6, T7, T8, the superior endplate of T10 and T11. No acute fracture. Vertebral body heights are otherwise maintained. Partial osseous fusion of T6-T7 anteriorly. Mild degenerative endplate changes at T5-T6. Probable small osseous hemangioma in the T6 vertebral body. Dorsal elements are intact and well aligned. Thoracic paraspinal soft tissues: The paraspinal soft tissues are within normal limits. Canal and foramina: Shallow central disc protrusion at T1-T2 causing minimal ventral thecal sac indentation. The neural foramina are patent at this level. Shallow right paracentral disc protrusion at T3-T4 without significant canal narrowing. Central disc protrusion at T7-T8 causing mild ventral thecal sac indentation. Tiny central disc protrusion at T9-T10 with patent spinal canal. Disc bulge, ligament is and dorsal element hypertrophy with right greater than left facet hypertrophy causing at least mild eccentric right greater than left spinal canal stenosis at T12-L1. Impression: IMPRESSION: Mild distention of the central canal most pronounced from T5 through T9, suggesting syrinx. Otherwise thoracic spondylosis without high-grade or critical spinal canal or neural foraminal stenosis as discussed. Anatomic Thoracic/Lumbar Variant: Assume the first normal thoracic rib is at the T1 level. 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: [facility] INSTITUT[facility]anya Transcribe Date/Time: Jul 11 2024 1:18P Dictated by : ABHIJIT PAZ MD This examination was interpreted and the report reviewed and electronically signed by: ABHIJIT PAZ MD on Jul 11 2024 1:36PM EST Electrodiagnostic Study (EMG): None Recent Labs: Creatinine Date Value Ref Range Status 06/28/2016 1.26 0.70 - 1.40 mg/dL Final No results found for: EGFR No results found for: PCGLUCOSE WBC Date Value Ref Range Status 06/29/2016 6.16 3.70 - 11.00 k/uL Final Hemoglobin Date Value Ref Range Status 06/29/2016 9.0 (L) 11.5 - 15.5 g/dL Final Hematocrit Date Value Ref Range Status 06/29/2016 29.1 (L) 36.0 - 46.0 % Final Platelet Count Date Value Ref Range Status 06/29/2016 178 150 - 400 k/uL Final Current Medications, Past Medical History, Past Surgical History, Family History, Social History and Review of Systems: On today's date, noted above, I have confirmed and edited as necessary, the PFSH and ROS obtained by others. Physical Exam: 09/26/24 1356 Pulse: 61 Resp: 18 SpO2: 96% Physical Exam Vitals reviewed. Constitutional: General: She is not in acute distress. Appearance: She is not ill-appearing. HENT: Head: Normocephalic and atraumatic. Eyes: Conjunctiva/sclera: Conjunctivae normal. Cardiovascular: Pulses: Normal pulses. Pulmonary: Effort: Pulmonary effort is normal. No respiratory distress. Musculoskeletal: Arms: Cervical back: Tenderness present. Pain with movement present. Thoracic back: Tenderness present. Decreased range of motion. Lumbar back: No tenderness. Normal range of motion. Comments: Pt is tender to touch bilaterally in area marked. Negative spurlings bilaterally Skin: General: Skin is warm and dry. Neurological: Mental Status: She is alert and oriented to person, place, and time. Psychiatric: Mood and Affect: Mood and affect normal. Behavior: Behavior normal. Behavior is cooperative. IMPRESSION: 83 year old female with significant past medical history for who presents with complaint(s) of axial low back pain, myofascial referred pain into the right torso. patient is also complaining of neck pain. I reviewed the x-ray of her cervical spine and at this time we are going to refrain from any treatment. Does not appear the patient is having occipital neuralgia issues as well. We are going to continue to focus on the spinal cord stimulator and getting it approved for her other pain regions. We did discuss medications to help with the neck pain the patient is apprehensive to start. Patient is aware of the issues we are having getting the psych evaluation done. I did put in a referral again for Dr. Jay for reevaluation to confirm that she is a candidate for the spinal cord stimulator from the surgeons point of view. Diagnoses: (M79.18) Myofascial pain (primary encounter diagnosis) (M54.6) Thoracic spine pain (M54.16) Lumbar radiculopathy (M79.10) Myalgia (M48.062) Spinal stenosis of lumbar region with neurogenic claudication PLAN: Alyce Urrutia would benefit from the following to reach personal goals for decreasing pain, improving function and work participation, and/or improving quality of life: Medications: No Changes - Continue Current Medications Procedure: None Studies: None Functional Lutheran: NONE Referrals: Spine Surgery (Ortho Spine - [phone]; Neurosurgery - [phone]) Follow-up: 2 months Depending on response to the above plan, consider: Erector Spinae Injections, MBB/RFA Right L2-3,3-4; Electrodiagnostic Study Patient Education, Compliance and Clinic Policies Reviewed and/or Discussed Today: None Attribution: In addition to reviewing the information noted above, some elements copied from my most recent clinical note(s), including the physical exam (completed in entirety today), and the impression and plan sections, have been updated where appropriate. All reflect current medical decision making from today's date. Veena Meléndez APRN.LEAD APPLICATION ARCHITECT Pain Management [facility] Veena Meléndez APRN.CNP 10/04/2024 9:58 AM Signed Addended by: VEENA MELÉNDEZ on: 10/04/2024 09:58 AM Modules accepted: Orders Referring Provider: VEENA MELÉNDEZ [[id number]] Allergies As of Date: 09/26/2024 Noted Allergy Reaction PREDNISONE 04/26/2012 12 - Shortness of Breath Comments: Pallor, chest pain, palpitations ORAL MEDICATIONS BEEF CONTAINING PRODUCTS 08/26/2014 5 - Intolerance LEVAQUIN (LEVOFLOXACIN) 08/28/2007 14 - Other: See Comments Comments: sores in mouth/joint pain MIRAPEX (PRAMIPEXOLE) 04/26/2012 5 - Intolerance Comments: Doesn't help leg cramps TRAMADOL 12/23/2014 5 - Intolerance Comments: Pt gets jittery VALSARTAN-HYDROCHLOROTHIAZIDE 04/26/2012 14 - Other: See Comments Comments: Worsens nocturnal leg cramps. Patient can take valsartan alone with no issues Date Reviewed: 09/26/2024 Reviewed by: Veena Meléndez APRN.LEAD APPLICATION ARCHITECT - Fully Assessed Reason for Visit: Follow Up [171] Cmt: SPR consult Back Pain [12] Primary Visit Diagnosis:Myofascial pain [M79.18] Other Visit Diagnoses:Thoracic spine pain [M54.6] Lumbar radiculopathy [M54.16] Myalgia [M79.10] Spinal stenosis of lumbar region with neurogenic claudication [M48.062] Order(s):CONSULT TO NEUROSURGERY [646166] Order #: [id number]: 1 FUTURE CONSULT TO PSYCHIATRY [9035] Order #: [id number]: 1 FUTURE Prescriptions as of 10/04/2024 - amoxicillin (AMOXIL) 500 mg capsule Take 4 capsules by mouth as directed. ONE HOUR PRIOR TO DENTAL WORK - letrozole (FEMARA) 2.5 mg tablet Take 1 tablet by mouth once daily. - spironolactone (ALDACTONE) 25 mg tablet - oxybutynin (DITROPAN) 5 mg tablet Take 5 mg by mouth once daily. - atenolol (TENORMIN) 25 mg tablet Take 25 mg by mouth twice daily. - ASPIRIN ORAL Take 81 mg by mouth. - ACETAMINOPHEN PAIN RELIEF ORAL Take by mouth. - anastrozole (ARIMIDEX) 1 mg tablet Take 1 mg by mouth once daily. - denosumab (PROLIA) 60 mg/mL Inject 60 mg subcutaneously one time only. - rosuvastatin (CRESTOR) 10 mg tablet Take 10 mg by mouth daily at bedtime. - cyanocobalamin, vitamin B-12, (VITAMIN B-12 ORAL) Take by mouth four times a week. - UBIQUINONE ORAL Take 100 mg by mouth once daily. - tiZANidine (ZANAFLEX) 4 mg tablet Take 1 tablet by mouth twice daily as needed. - chlordiazePOXIDE-clidinium (LIBRAX) 5-2.5 mg per capsule Take 1 tablet by mouth DAILY. NEEDED WHEN PT EATS BEEF PRODUCTS Indications: FOR bEEF PRODUCTS EATEN - clotrimazole-betamethasone (LOTRISONE) cream Apply 1 application to affected area as needed (for rash). as needed for rash - Diclofenac Sodium (VOLTAREN) 1 % gel Apply 1 g to affected area three times daily as needed. - QUININE, BULK, MISC 250 mg as needed. - cholecalciferol, vitamin D3, 50,000 unit tab Take by mouth every Monday. - valsartan (DIOVAN) 160 mg tablet Take 160 mg by mouth twice daily. - amLODIPine (NORVASC) 5 mg tablet Take 5 mg by mouth twice daily. - omeprazole 20 mg capsule Take 20 mg by mouth once daily. - LUTEIN 20 MG CAP Take one(1) tablet daily. - SYNTHROID 150MCG TABLET Take 150 mcg by mouth once daily. 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] 07/17/2007 OA (Osteoarthritis) of Knee [M17.9] 08/19/2009 Endometrial mass [N94.89] 10/05/2012 10/29/2012 Lumbar spondylosis [M47.816] 07/23/2014 DDD (degenerative disc disease), lumbar [M51.36*07/23/2014 GERD (gastroesophageal reflux disease) [K21.9] 12/19/2014 Asthma [J45.909] 12/19/2014 Anemia [D64.9] 12/19/2014 CKD (chronic kidney disease) [N18.9] 12/19/2014 Cervical spondylosis without myelopathy [M47.81*01/06/2015 Neck pain [M54.2] 01/06/2015 Bilateral occipital neuralgia [M54.81] 01/06/2015 Cervical strain [S16.1XXA] 01/06/2015 Non morbid obesity [E66.9] 06/25/2015 H/O total hip arthroplasty [Z96.649] 07/06/2015 Altered gait [R26.9] 08/27/2015 Weakness of right hip [R29.898] 08/27/2015 Chronic pain of left knee [M25.562, G89.29] 10/05/2015 Iron deficiency anemia, unspecified [D50.9] 06/21/2016 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.9] 06/21/2016 Status post knee replacement [Z96.659] 06/27/2016 Weakness of both lower extremities [R29.898] 01/20/2017 Chronic bilateral low back pain without sciatic*01/20/2017 Degenerative disc disease, lumbar [M51.369] 03/15/2017 Lumbar facet joint pain [M54.59] 03/15/2017 Chronic low back pain without sciatica [M54.50,*09/20/2017 Chronic right-sided low back pain without sciat*10/30/2017 Myofascial pain [M79.18] 11/01/2021 Spinal stenosis, lumbar region, without neuroge*11/01/2021 Lumbar radiculopathy [M54.16] 11/01/2021 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 Follow-up and Disposition History for Encounter Date Provider Department Center 09/26/2024 [id number] MELÉNDEZ [employer] [facility] Encounter Status:Closed by VEENA MELÉNDEZ on 09/26/24 PROGRESS Observed: 09/26/2024 2:00 PM Status: COMPLETED Source: [facility] HNO ID: [id number] Author: VEENA MELÉNDEZ APRN.ZULEIMA Service: ? Author Type: Nurse Practitioner Type: Progress Notes Filed: 09/26/2024 16:48 Note Text: [facility] Today's Date: 09/26/2024 Last Visit: 02/09/2023 Name: Alyce Urrutia : 1940 Purpose: SPRINT PNS Consult Chief complaint: low back pain Pertinent Past Medical History: Benign Meningeal Neoplasms, Occipital Neuralgia, HTN, GERD, CKD, Hypothyroidism, Knee OA s/p bilateral TKA, Obesity, s/p right Total Hip Arthroplasty, Pertinent Past Surgeries: TKR, THR Plan at last visit: (Seen on 12/14/2023 by Veena Meléndez CNP) PLAN: Alyce Urrutia would benefit from the following to reach personal goals for decreasing pain, improving function and work participation, and/or improving quality of life: Medications: No Changes - Continue Current Medications Procedure: TRIGGER POINT INJECTION: Location (muscle groups): bilateral thoracic paraspinal and rhomboid region Medication Injected: 0.25% Bupivacaine # Sessions Requested: 1 Approximate Time Between Sessions (if applicable): 3-4 weeks PURPOSE: To diagnose trigger points as a cause of patient's pain and immobility. To provide therapeutic pain relief to improve range of motion, ADL's and community participation. EXAM FINDINGS: Trigger Point Present (Hyper excitable area of the body, where the application of a stimulus provokes pain to a greater degree than the surrounding area): YES FAILED TREATMENTS: Studies: None Functional Lutheran: NONE Referrals: No additional considerations at present Follow-up: [address] Chakraborty, Dr Garcia or Dr Chicas to discuss the SPRINT Depending on response to the above plan, consider: Erector Spinae Injections, MBB/RFA Right L2-3,3-4; Electrodiagnostic Study Interval History: Overall pain and functional disability since last visit: Unchanged New Complaints since last visit: No Alyce Urrutia is an 83-year-old female presenting for follow-up on back and neck pain and to discuss the spinal cord stimulator. Alyce reports that recent trigger point injections provided no relief. She describes her neck pain as intermittent electric shock-like sensations that travel from her neck up to her brain. These episodes occur unpredictably and are described as scary. The pain is bilateral and does not radiate into her arms. She notes that the pain is not constant and that she can manage it by pausing momentarily when it occurs. She has not tried gabapentin and is hesitant to start it due to concerns about potential side effects, especially given her current stressors. She is currently overwhelmed with caregiving responsibilities for her , who has dementia and multiple physical ailments. He is scheduled for back surgery on November 01, and she is in the process of arranging post-operative rehabilitation for him. She expresses concern about managing additional treatments for herself at this time due to her caregiving duties and her own health challenges. . Current Pain Medications: Neuropathics: None NSAIDS: Muscle Relaxants: Topicals: Other Prescription or OTC Pain Medications: Tylenol OTC - partial relief Opioids (when applicable): Date last refilled: Quantity supplied: Quantity remaining: Last taken: Tolerating Medication: N/A Medications helping improve ADL's and Self-care: N/A Current Therapies Attended: No Current Therapies Studies Obtained (when obtained, relevant findings reported below): None Notable Events During Course of Treatment: Initial HPI: (Obtained on 10/21/2021) Alyce Urrutia is a 81 year old female, who presents having been referred by Self, for evaluation and management of the above-mentioned chief complaint. This has been present for the past five years. The onset of symptoms was not sudden and was without associated trauma. The pain is most severe at night, she has gradual improvement as the day progresses. Treatments prior to initial presentation include the following: Medications (See below), Injections (See below), Modalities (eg. Heat, Ice), Physical Therapy , Acupuncture, Home Exercise Program , and Activity Modification. She has had a She has previously seen a Dr. Mckeon for pain management, last in 2017, who performed lumbar RFA, with minimal relief. At that time, she had primarily axial low back pain. 03/2022 - Discontinue Gabapentin, ineffective Data Reviewed: PAIN PROCEDURES: DATE PROCEDURE IMPROVEMENT 08/2024 TPI none 11/29/2023 L erector spinae block T5 none 11/09/2023 R erector spinae block T5 none 09/11/2023 B/L RFA L2-L4 100% in that region 07/26/2023 B/L MBNB L2-L4 100% or 6 hrs. 07/10/2023 B/L MBNB L2-4 100% for 4 hrs 04/13/2023 ILESI L1-L2 75%for 1 week 12/19/2022 RFA, Bilat L4-5,5-S1 No relief (positive Diagnostic Response) 12/05/2022 RFA, Bilat T9-10,11-12 No relief (positive Diagnostic Response) 10/10/2022 MBB, Bilat T9-10,11-12 Positive Diagnostic (>80% x > 4 hours) 09/21/2022 MBB, Bilat T9-10,11-12 Positive Diagnostic (>80% x > 4 hours) 05/18/2022 RFA bilateral L4-L5, L5-S1 100% x 4-5 months 04/13/2022 Bilateral MBNB L4-L5, L5-S1 95% on the left and 85% on the right 03/30/2022 Bilateral MBNB L4-L5, L5-S1 95% 01/26/22 RFA R Cluneal Nerve 30% 12/01/2021 Right Cluneal Nerve Blocks Nearly 100% x 8 hours (positive diagnostic) MEDICATIONS Taken TO DATE (for the chief complaint(s)): Membrane Stabilizers: Neurontin (Gabapentin): Discontinued - No Benefit and had side effects NSAIDS: None Muscle Relaxants: Zanaflex (Tizanidine): Beneficial Topicals: None Other Prescription or OTC Pain Medications: Tylenol (Acetaminophen): Beneficial Opioids: None Current Anti-depressants or Mood-Stabilizers: None Current Anti-Coagulants: None SOCIAL HISTORY No social history on file. Allergies: ALLERGIES Allergen Reactions Prednisone Shortness of Breath Pallor, chest pain, palpitations ORAL MEDICATIONS Beef Containing Pro* Intolerance Levaquin [Levofloxa* Other: See Comments sores in mouth/joint pain Mirapex [Pramipexol* Intolerance Doesn't help leg cramps Tramadol Intolerance Pt gets jittery Valsartan-Hydrochlo* Other: See Comments Worsens nocturnal leg cramps. Patient can take valsartan alone with no issues 09/12/2024 09/23/2024 INTAKE PAIN ASSESSMENT Are you having pain associated with your visit today? Yes, Provider notified Yes, Provider notified Pain Level 8 8 Pain Location Back-Lower Back-Lower Description Spasm;Stiffness Duration Amount of Time 10 Duration Units Years Frequency Continuous Intervention/Comfort measure Medication Compliance: PDMP website checked and validated on 09/26/2024 by Veena Meléndez APRN.LEAD APPLICATION ARCHITECT All prescriptions have been APPROPRIATELY filled. No suspicious activity was identified. Recent Drug screens: 10/21/2021 02/09/2023 12/14/2023 AG SPINE COMBINATION Questionnaire GREENLIGHT Completed Date 10/21/2021 Questionnaire Opiod Risk Tool Opiod Risk Tool Opiod Risk Tool Completed Date 10/21/2021 02/09/2023 12/14/2023 Comments 0 No question data found. (All drug screens are appropriate unless indicated otherwise) Risk Assessment: MARCELO-7: 10/21/2021 MARCELO - 7 SCORES Score 0 (0-4) minimal anxiety, (5-9) mild anxiety, (10-14) moderate anxiety, (15-21) severe anxiety PHQ-9: 01/06/2015 09/14/2017 10/21/2021 PHQ-9 Score 1 2 0 (0-4) minimal depression, (5-9) mild depression, (10-14) moderate depression, (15-19) moderately severe depression, (20-27) severe depression Diagnostic Studies: Relevant Imaging: MRI Spine Report MRI THORACIC SPINE WO IVCON Exam End: 07/11/2024 12:59 PM (Final result) Narrative: * * *Final Report* * * DATE OF EXAM: Jul 11 2024 12:55PM WR 0325 - MRI THORACIC SPINE WO IVCON / PROCEDURE REASON: multiple diagnoses * * * * Physician Interpretation * * * * EXAMINATION: MRI THORACIC SPINE WO IVCON CLINICAL HISTORY: Thoracic spine pain Lumbar radiculopathy TECHNIQUE: Routine thoracic spine MR protocol. MQ: [id number] COMPARISON: Thoracic radiograph 07/14/2022. MRI lumbar spine 01/18/2022. RESULT: Counting reference: Craniocervical and lumbosacral junctions. For the purposes of this report, Assume the first normal thoracic rib is at the T1 level. Localizer images: Mild cervical spondylosis levocurvature of the thoracolumbar spine with leftward apex at L2. Right total hip arthroplasty. T2 hyperintense lesions in the bilateral kidneys, incompletely assessed, likely representing cysts . Right upper pole complex cystic lesion with septations. Small posterior fossa with vermian hypoplasia enlarged inferior/retrocerebellar CSF space. Alignment: Dextro curvature of the thoracic spine with mild apex at T9. Minimal anterolisthesis of C7 on T1. Exaggerated thoracic kyphosis, mild Cord: The visualized cord is within normal limits of signal intensity and morphology. Mild expansion of the central canal with syrinx formation most notably spanning T5-T9 with central canal measuring approximately 2 mm (series 9, image 16 through 43). Bone marrow signal/fracture: No evidence of pathologic marrow infiltration. No evidence of prior fracture. Scattered Schmorl's nodes involving the inferior endplates of T4, T5, T6, T7, T8, the superior endplate of T10 and T11. No acute fracture. Vertebral body heights are otherwise maintained. Partial osseous fusion of T6-T7 anteriorly. Mild degenerative endplate changes at T5-T6. Probable small osseous hemangioma in the T6 vertebral body. Dorsal elements are intact and well aligned. Thoracic paraspinal soft tissues: The paraspinal soft tissues are within normal limits. Canal and foramina: Shallow central disc protrusion at T1-T2 causing minimal ventral thecal sac indentation. The neural foramina are patent at this level. Shallow right paracentral disc protrusion at T3-T4 without significant canal narrowing. Central disc protrusion at T7-T8 causing mild ventral thecal sac indentation. Tiny central disc protrusion at T9-T10 with patent spinal canal. Disc bulge, ligament is and dorsal element hypertrophy with right greater than left facet hypertrophy causing at least mild eccentric right greater than left spinal canal stenosis at T12-L1. Impression: IMPRESSION: Mild distention of the central canal most pronounced from T5 through T9, suggesting syrinx. Otherwise thoracic spondylosis without high-grade or critical spinal canal or neural foraminal stenosis as discussed. Anatomic Thoracic/Lumbar Variant: Assume the first normal thoracic rib is at the T1 level. 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: [facility] Transcribe Date/Time: Jul 11 2024 1:18P Dictated by : ABHIJIT PAZ MD This examination was interpreted and the report reviewed and electronically signed by: ABHIJIT PAZ MD on Jul 11 2024 1:36PM EST Electrodiagnostic Study (EMG): None Recent Labs: Creatinine Date Value Ref Range Status 06/28/2016 1.26 0.70 - 1.40 mg/dL Final No results found for: EGFR No results found for: PCGLUCOSE WBC Date Value Ref Range Status 06/29/2016 6.16 3.70 - 11.00 k/uL Final Hemoglobin Date Value Ref Range Status 06/29/2016 9.0 (L) 11.5 - 15.5 g/dL Final Hematocrit Date Value Ref Range Status 06/29/2016 29.1 (L) 36.0 - 46.0 % Final Platelet Count Date Value Ref Range Status 06/29/2016 178 150 - 400 k/uL Final Current Medications, Past Medical History, Past Surgical History, Family History, Social History and Review of Systems: On today's date, noted above, I have confirmed and edited as necessary, the PFSH and ROS obtained by others. Physical Exam: 09/26/24 1356 Pulse: 61 Resp: 18 SpO2: 96% Physical Exam Vitals reviewed. Constitutional: General: She is not in acute distress. Appearance: She is not ill-appearing. HENT: Head: Normocephalic and atraumatic. Eyes: Conjunctiva/sclera: Conjunctivae normal. Cardiovascular: Pulses: Normal pulses. Pulmonary: Effort: Pulmonary effort is normal. No respiratory distress. Musculoskeletal: Arms: Cervical back: Tenderness present. Pain with movement present. Thoracic back: Tenderness present. Decreased range of motion. Lumbar back: No tenderness. Normal range of motion. Comments: Pt is tender to touch bilaterally in area marked. Negative spurlings bilaterally Skin: General: Skin is warm and dry. Neurological: Mental Status: She is alert and oriented to person, place, and time. Psychiatric: Mood and Affect: Mood and affect normal. Behavior: Behavior normal. Behavior is cooperative. IMPRESSION: 83 year old female with significant past medical history for who presents with complaint(s) of axial low back pain, myofascial referred pain into the right torso. patient is also complaining of neck pain. I reviewed the x-ray of her cervical spine and at this time we are going to refrain from any treatment. Does not appear the patient is having occipital neuralgia issues as well. We are going to continue to focus on the spinal cord stimulator and getting it approved for her other pain regions. We did discuss medications to help with the neck pain the patient is apprehensive to start. Patient is aware of the issues we are having getting the psych evaluation done. I did put in a referral again for Dr. Jay for reevaluation to confirm that she is a candidate for the spinal cord stimulator from the surgeons point of view. Diagnoses: (M79.18) Myofascial pain (primary encounter diagnosis) (M54.6) Thoracic spine pain (M54.16) Lumbar radiculopathy (M79.10) Myalgia (M48.062) Spinal stenosis of lumbar region with neurogenic claudication PLAN: Alyce Urrutia would benefit from the following to reach personal goals for decreasing pain, improving function and work participation, and/or improving quality of life: Medications: No Changes - Continue Current Medications Procedure: None Studies: None Functional Lutheran: NONE Referrals: Spine Surgery (Ortho Spine - [phone]; Neurosurgery - [phone]) Follow-up: 2 months Depending on response to the above plan, consider: Erector Spinae Injections, MBB/RFA Right L2-3,3-4; Electrodiagnostic Study Patient Education, Compliance and Clinic Policies Reviewed and/or Discussed Today: None Attribution: In addition to reviewing the information noted above, some elements copied from my most recent clinical note(s), including the physical exam (completed in entirety today), and the impression and plan sections, have been updated where appropriate. All reflect current medical decision making from today's date. Veena Meléndez APRN.LEAD APPLICATION ARCHITECT Pain Management [facility] PROGRESS Observed: 09/26/2024 1:56 PM Status: COMPLETED Source: [facility] HNO ID: [id number] Author: WARREN CHOWDHURY LPN Service: ? Author Type: LICENSED NURSE Type: Progress Notes Filed: 09/26/2024 16:48 Note Text: Review of Systems Constitutional: Positive for activity change. Negative for chills, fever and unexpected weight change. Genitourinary: Negative for difficulty urinating. Musculoskeletal: Positive for arthralgias, back pain, gait problem, myalgias, neck pain and neck stiffness. Negative for joint swelling. Neurological: Negative for weakness, numbness and headaches. Psychiatric/Behavioral: Positive for sleep disturbance. Negative for dysphoric mood and suicidal ideas. The patient is not nervous/anxious. PROGRESS Observed: 09/19/2024 2:00 PM Status: COMPLETED Source: [facility] HNO ID: [id number] Author: VEENA MELÉNDEZ APRN.CNP Service: ? Author Type: Nurse Practitioner Type: Progress Notes Filed: 09/19/2024 13:32 Note Text: tpi CNOV Observed: 09/19/2024 2:00 PM Status: COMPLETED Source: [facility] Office Visit (SPAGWO) ALYCE URRUTIA ([id number]) 1940 F NFR Date Time Provider Department 09/19/24 2:00 PM VEENA MELÉNDEZ During your visit today, we recorded the following information about you: Pulse Respiration 60/minute 18/minute Warren Chowdhury LPN 09/19/2024 1:32 PM Signed Review of Systems Constitutional: Positive for activity change. Negative for chills, fever and unexpected weight change. Genitourinary: Negative for difficulty urinating. Musculoskeletal: Positive for arthralgias, back pain, gait problem, neck pain and neck stiffness. Negative for joint swelling and myalgias. Neurological: Negative for weakness, numbness and headaches. Psychiatric/Behavioral: Positive for sleep disturbance. Negative for dysphoric mood and suicidal ideas. The patient is not nervous/anxious. Veena Meléndez APRN.LEAD APPLICATION ARCHITECT 09/19/2024 1:32 PM Signed [facility] Patient name: Alyce Urrutia Patient Date of : 1940 Today's Date: 09/19/2024 Provider performing procedure: Veena Meléndez APRN.LEAD APPLICATION ARCHITECT Procedure: bilateral lumbar rhomboid and parspinal Trigger Point Injection(s) Injectate: A total of 3 cc of 0.25% Bupivacaine Diagnosis (Indication for procedure): Myofacial pain Comments: none HPI: Alyce Urrutia is an 83 year old FEMALE who presents today, in pain, for the procedure noted above. PAST MEDICAL HISTORY Diagnosis Date Abdominal pain, epigastric Abdominal pain, unspecified site Acute gastritis without mention of hemorrhage Anemia, unspecified Asthma (HCC) Circumscribed scleroderma Diverticulosis of colon (without mention of hemorrhage) Essential hypertension, benign Internal hemorrhoids without mention of complication Irritable bowel syndrome Kidney disease Non morbid obesity 06/25/2015 Osteoarthrosis, unspecified whether generalized or localized, other specified sites Osteoarthritis Other diseases of lung, not elsewhere classified PMH - PAST MEDICAL HISTORY OF leukopenia Pure hypercholesterolemia Snoring Unspecified hypothyroidism PAST SURGICAL HISTORY Procedure Laterality Date ARTHROSCOPY KNEE DIAGNOSTIC W/WO SYNOVIAL BX SPX 01/2004 Arthroscopy, knee-RIGHT ARTHRP ACETBLR/PROX FEM PROSTC AGRFT/ALGRFT Right 07/06/2015 Hip replacement, total ARTHRP KNE CONDYLEANDPLATU MEDIALANDLAT COMPARTMENTS 06/12/2005 Knee replacement, total-right ARTHRP KNE CONDYLEANDPLATU MEDIALANDLAT COMPARTMENTS Left 06/27/2016 Knee replacement, total COLONOSCOPY FLX DX W/COLLJ SPEC WHEN PFRMD 11/28/2007 COLONOSCOPY FLX DX W/COLLJ SPEC WHEN PFRMD 10/06/2014 Colonoscopy DILATION AND CURETTAGE DXAND/THER NONOBSTETRIC 10/10/2012 Dilation AND curettage w/ resection polyp EGD TRANSORAL BIOPSY SINGLE/MULTIPLE 09/26/2006 LEFT HEART CATH,PERCUTANEOUS Right 08/2022 PAST SURGICAL HISTORY OF 04/07/1998 Minimal access right frontal craniotomy with biopsy and gross PAST SURGICAL HISTORY OF spinal injection FAMILY HISTORY Problem Relation Age of Onset Arthritis Mother Arthritis Father None Brother Social History Tobacco Use Smoking status: Former Current packs/day: 1.00 Average packs/day: 1 pack/day for 3.0 years (3.0 ttl pk-yrs) Types: Cigarettes Smokeless tobacco: Former Tobacco comments: QUIT 50 YEARS AGO Vaping Use Vaping status: Never Used Substance Use Topics Alcohol use: Yes Comment: occassional Drug use: No Current Outpatient Medications on File Prior to Visit Medication Sig amoxicillin (AMOXIL) 500 mg capsule Take 4 capsules by mouth as directed. ONE HOUR PRIOR TO DENTAL WORK letrozole (FEMARA) 2.5 mg tablet Take 1 tablet by mouth once daily. spironolactone (ALDACTONE) 25 mg tablet oxybutynin (DITROPAN) 5 mg tablet Take 5 mg by mouth once daily. atenolol (TENORMIN) 25 mg tablet Take 25 mg by mouth twice daily. ASPIRIN ORAL Take 81 mg by mouth. ACETAMINOPHEN PAIN RELIEF ORAL Take by mouth. anastrozole (ARIMIDEX) 1 mg tablet Take 1 mg by mouth once daily. denosumab (PROLIA) 60 mg/mL Inject 60 mg subcutaneously one time only. rosuvastatin (CRESTOR) 10 mg tablet Take 10 mg by mouth daily at bedtime. cyanocobalamin, vitamin B-12, (VITAMIN B-12 ORAL) Take by mouth four times a week. UBIQUINONE ORAL Take 100 mg by mouth once daily. chlordiazePOXIDE-clidinium (LIBRAX) 5-2.5 mg per capsule Take 1 tablet by mouth DAILY. NEEDED WHEN PT EATS BEEF PRODUCTS Indications: FOR bEEF PRODUCTS EATEN clotrimazole-betamethasone (LOTRISONE) cream Apply 1 application to affected area as needed (for rash). as needed for rash Diclofenac Sodium (VOLTAREN) 1 % gel Apply 1 g to affected area three times daily as needed. QUININE, BULK, MISC 250 mg as needed. cholecalciferol, vitamin D3, 50,000 unit tab Take by mouth every Monday. valsartan (DIOVAN) 160 mg tablet Take 160 mg by mouth twice daily. amLODIPine (NORVASC) 5 mg tablet Take 5 mg by mouth twice daily. omeprazole 20 mg capsule Take 20 mg by mouth once daily. LUTEIN 20 MG CAP Take one(1) tablet daily. SYNTHROID 150MCG TABLET Take 150 mcg by mouth once daily. 1 tablet daily, and 1/2 tablet on monday tiZANidine (ZANAFLEX) 4 mg tablet Take 1 tablet by mouth twice daily as needed. (Patient not taking: Reported on 09/19/2024) No current facility-administered medications on file prior to visit. ALLERGIES Allergen Reactions Prednisone Shortness of Breath Pallor, chest pain, palpitations ORAL MEDICATIONS Beef Containing Pro* Intolerance Levaquin [Levofloxa* Other: See Comments sores in mouth/joint pain Mirapex [Pramipexol* Intolerance Doesn't help leg cramps Tramadol Intolerance Pt gets jittery Valsartan-Hydrochlo* Other: See Comments Worsens nocturnal leg cramps. Patient can take valsartan alone with no issues Data Reviewed: Current Medications, Past Medical History, Past Surgical History, Family History, Social History and Review of Systems: On Today's date, noted in the attribution, I have confirmed and edited as necessary, the PFSH and ROS obtained by others. Objective Exam: Vitals: As per nursing documentation Constitutional: Normal Appearance, Oriented to Time, Place and Person Head: No lacerations, no external signs of trauma Eyes: Conjunctiva clear. No discharge from the eyes Cardiovascular: Appears well-perfused Pulmonary: Non-labored respirations Abdominal: Non-distended Skin: No visible rashes or ecchymosis Psychiatric: Mood appropriate for given condition Neurological: Gross movements are limited by pain, but otherwise unremarkable MSK: trigger points to palpation of the muscle groups listed above Assessment and Plan: -repeat TPIs as needed pending outcome of the TPIs done today -appt scheduled for next week for evaluation [place] protocol documentation / Pre-Procedure Checklist: Consent: Obtained verbally prior to procedure I had a nice discussion with the patient today about their current pain and the pathology that could be causing it We discussed different treatment options, including risks, benefits and alternatives. We agreed to proceed as previously discussed, or the plan was modified in accordance with the comments noted above Patient identifiers, including name and date of , were confirmed After discussing risks and benefits, reviewing patient's allergy list to ensure all medications being given are tolerated to the best of our known information, the in-office procedure of Trigger Point Injections was performed at the locations noted above. The region(s) noted above were prepped using sterile technique. A 1.5 inch 25 gauge needle was used to multiple areas of muscle spasm using dry needle technique. The medication noted above was injected in equal parts at 9 total site(s) within the region(s) mentioned above. All points elicited local twitch responses which softened after the injection. After careful removal of the needle, there was minimal bleeding. The injection site was covered with appropriate sterile dressing where needed. The patient was noted to have tolerated the procedure well and was discharged after an appropriate period of post-procedure observation. The patient was instructed to contact us if there were any complications. The patient was advised to follow-up with the requesting physician within one to two weeks or as per their requested follow-up plan. Post procedure visit summary with written instructions was offered to the patient. Veena Meléndez APRN.ZULEIMA [facility] Veena Meléndez APRN.CNP 09/19/2024 1:31 PM Signed Procedure: Other: trigger point injection Post Procedure Instructions: You may resume normal activities the day after the procedure, as tolerated., Pain should gradually subside over the next 2-3 weeks., Apply cold compresses to injection site if needed. and Increased pain the day after the procedure may occur. Please increase water intake for the next 24 hours as this will help the soreness. If you have any of the following signs or symptoms, please call our office at Fever and/or chills Swelling and/or drainage from injection site New pain that is different than your normal pain (other than soreness at the site of the procedure) Stiff neck Shortness of breath Severe increase in pain Motor dysfunctions, such as difficulty walking, bowel or bladder dysfunction and/or incontinence Headache that is severe, light sensitive or develops when changing positions (positional headache) Nausea and/or vomiting accompanied by headache that started 24-48 hours after the procedure If you have any emergent concerns, please call 911 or go to your local emergency room. Please also contact our office to let us know you will be seeking emergency care and why. Veena Meléndez APRN.CNP 09/19/2024 1:32 PM Signed tpi Referring Provider: VEENA MELÉNDEZ [[id number]] Allergies As of Date: 09/19/2024 Noted Allergy Reaction PREDNISONE 04/26/2012 12 - Shortness of Breath Comments: Pallor, chest pain, palpitations ORAL MEDICATIONS BEEF CONTAINING PRODUCTS 08/26/2014 5 - Intolerance LEVAQUIN (LEVOFLOXACIN) 08/28/2007 14 - Other: See Comments Comments: sores in mouth/joint pain MIRAPEX (PRAMIPEXOLE) 04/26/2012 5 - Intolerance Comments: Doesn't help leg cramps TRAMADOL 12/23/2014 5 - Intolerance Comments: Pt gets jittery VALSARTAN-HYDROCHLOROTHIAZIDE 04/26/2012 14 - Other: See Comments Comments: Worsens nocturnal leg cramps. Patient can take valsartan alone with no issues Date Reviewed: 09/19/2024 Reviewed by: Veena Meléndez APRN.LEAD APPLICATION ARCHITECT - Fully Assessed Reason for Visit: Trigger Point Injection [1062] Back Pain [12] Cmt: Lower Primary Visit Diagnosis:Myalgia [M79.10] Other Visit Diagnosis:Myofascial pain [M79.18] Order(s):TRIGGER POINT INJECTION MULTI 3+ MUSCLE GRP [59799SGE] Order #: [id number] [] bupivacaine (PF) 0.25 % (2.5 mg/mL) 25 mg injection (SENSORCAINE MPF)Disp: Rfl: PRE-CERT ORDER (AG) [6016975] Order #: [id number]: 1 Prescriptions as of 09/19/2024 - amoxicillin (AMOXIL) 500 mg capsule Take 4 capsules by mouth as directed. ONE HOUR PRIOR TO DENTAL WORK - letrozole (FEMARA) 2.5 mg tablet Take 1 tablet by mouth once daily. - spironolactone (ALDACTONE) 25 mg tablet - oxybutynin (DITROPAN) 5 mg tablet Take 5 mg by mouth once daily. - atenolol (TENORMIN) 25 mg tablet Take 25 mg by mouth twice daily. - ASPIRIN ORAL Take 81 mg by mouth. - ACETAMINOPHEN PAIN RELIEF ORAL Take by mouth. - anastrozole (ARIMIDEX) 1 mg tablet Take 1 mg by mouth once daily. - denosumab (PROLIA) 60 mg/mL Inject 60 mg subcutaneously one time only. - rosuvastatin (CRESTOR) 10 mg tablet Take 10 mg by mouth daily at bedtime. - cyanocobalamin, vitamin B-12, (VITAMIN B-12 ORAL) Take by mouth four times a week. - UBIQUINONE ORAL Take 100 mg by mouth once daily. - tiZANidine (ZANAFLEX) 4 mg tablet Take 1 tablet by mouth twice daily as needed. - chlordiazePOXIDE-clidinium (LIBRAX) 5-2.5 mg per capsule Take 1 tablet by mouth DAILY. NEEDED WHEN PT EATS BEEF PRODUCTS Indications: FOR bEEF PRODUCTS EATEN - clotrimazole-betamethasone (LOTRISONE) cream Apply 1 application to affected area as needed (for rash). as needed for rash - Diclofenac Sodium (VOLTAREN) 1 % gel Apply 1 g to affected area three times daily as needed. - QUININE, BULK, MISC 250 mg as needed. - cholecalciferol, vitamin D3, 50,000 unit tab Take by mouth every Monday. - valsartan (DIOVAN) 160 mg tablet Take 160 mg by mouth twice daily. - amLODIPine (NORVASC) 5 mg tablet Take 5 mg by mouth twice daily. - omeprazole 20 mg capsule Take 20 mg by mouth once daily. - LUTEIN 20 MG CAP Take one(1) tablet daily. - SYNTHROID 150MCG TABLET Take 150 mcg by mouth once daily. 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] 07/17/2007 OA (Osteoarthritis) of Knee [M17.9] 08/19/2009 Endometrial mass [N94.89] 10/05/2012 10/29/2012 Lumbar spondylosis [M47.816] 07/23/2014 DDD (degenerative disc disease), lumbar [M51.36*07/23/2014 GERD (gastroesophageal reflux disease) [K21.9] 12/19/2014 Asthma [J45.909] 12/19/2014 Anemia [D64.9] 12/19/2014 CKD (chronic kidney disease) [N18.9] 12/19/2014 Cervical spondylosis without myelopathy [M47.81*01/06/2015 Neck pain [M54.2] 01/06/2015 Bilateral occipital neuralgia [M54.81] 01/06/2015 Cervical strain [S16.1XXA] 01/06/2015 Non morbid obesity [E66.9] 06/25/2015 H/O total hip arthroplasty [Z96.649] 07/06/2015 Altered gait [R26.9] 08/27/2015 Weakness of right hip [R29.898] 08/27/2015 Chronic pain of left knee [M25.562, G89.29] 10/05/2015 Iron deficiency anemia, unspecified [D50.9] 06/21/2016 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.9] 06/21/2016 Status post knee replacement [Z96.659] 06/27/2016 Weakness of both lower extremities [R29.898] 01/20/2017 Chronic bilateral low back pain without sciatic*01/20/2017 Degenerative disc disease, lumbar [M51.369] 03/15/2017 Lumbar facet joint pain [M54.59] 03/15/2017 Chronic low back pain without sciatica [M54.50,*09/20/2017 Chronic right-sided low back pain without sciat*10/30/2017 Myofascial pain [M79.18] 11/01/2021 Spinal stenosis, lumbar region, without neuroge*11/01/2021 Lumbar radiculopathy [M54.16] 11/01/2021 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 and Increased pain the day after the procedure may occur. Please increase water intake for the next 24 hours as this will help the soreness. If you have any of the following signs or symptoms, please call our office at Fever and/or chills Swelling and/or drainage from injection site New pain that is different than your normal pain (other than soreness at the site of the procedure) Stiff neck Shortness of breath Severe increase in pain Motor dysfunctions, such as difficulty walking, bowel or bladder dysfunction and/or incontinence Headache that is severe, light sensitive or develops when changing positions (positional headache) Nausea and/or vomiting accompanied by headache that started 24-48 hours after the procedure If you have any emergent concerns, please call 911 or go to your local emergency room. Please also contact our office to let us know you will be seeking emergency care and why. Prescriptions ordered this encounter Disp Refills Start End BUPIVACAINE (PF) 0.25 % (2.5 MG/ML) * 09/19/2024 09/19/2024 Route: OTH Follow-up and Disposition History for Encounter Date Provider Department Center 09/19/2024 [id number] MELÉNDEZ Wendy Paul Encounter Status:Closed by VEENA MELÉNDEZ on 09/19/24 PROCEDURE Observed: 09/19/2024 1:17 PM Status: COMPLETED Source: [facility] HNO ID: [id number] Author: VEENA MELÉNDEZ APRN.LEAD APPLICATION ARCHITECT Service: ? Author Type: Nurse Practitioner Type: Procedures Filed: 09/19/2024 13:32 Note Text[facility] Patient Date of : 1940 Today's Date: 09/19/2024 Provider performing procedure: Veena Meléndez APRN.LEAD APPLICATION ARCHITECT Procedure: bilateral lumbar rhomboid and parspinal Trigger Point Injection(s) Injectate: A total of 3 cc of 0.25% Bupivacaine Diagnosis (Indication for procedure): Myofacial pain Comments: none HPI: Alyce Urrutia is an 83 year old FEMALE who presents today, in pain, for the procedure noted above. PAST MEDICAL HISTORY Diagnosis Date Abdominal pain, epigastric Abdominal pain, unspecified site Acute gastritis without mention of hemorrhage Anemia, unspecified Asthma (HCC) Circumscribed scleroderma Diverticulosis of colon (without mention of hemorrhage) Essential hypertension, benign Internal hemorrhoids without mention of complication Irritable bowel syndrome Kidney disease Non morbid obesity 06/25/2015 Osteoarthrosis, unspecified whether generalized or localized, other specified sites Osteoarthritis Other diseases of lung, not elsewhere classified PMH - PAST MEDICAL HISTORY OF leukopenia Pure hypercholesterolemia Snoring Unspecified hypothyroidism PAST SURGICAL HISTORY Procedure Laterality Date ARTHROSCOPY KNEE DIAGNOSTIC W/WO SYNOVIAL BX SPX 01/2004 Arthroscopy, knee-RIGHT ARTHRP ACETBLR/PROX FEM PROSTC AGRFT/ALGRFT Right 07/06/2015 Hip replacement, total ARTHRP KNE CONDYLEANDPLATU MEDIALANDLAT COMPARTMENTS 06/12/2005 Knee replacement, total-right ARTHRP KNE CONDYLEANDPLATU MEDIALANDLAT COMPARTMENTS Left 06/27/2016 Knee replacement, total COLONOSCOPY FLX DX W/COLLJ SPEC WHEN PFRMD 11/28/2007 COLONOSCOPY FLX DX W/COLLJ SPEC WHEN PFRMD 10/06/2014 Colonoscopy DILATION AND CURETTAGE DXAND/THER NONOBSTETRIC 10/10/2012 Dilation AND curettage w/ resection polyp EGD TRANSORAL BIOPSY SINGLE/MULTIPLE 09/26/2006 LEFT HEART CATH,PERCUTANEOUS Right 08/2022 PAST SURGICAL HISTORY OF 04/07/1998 Minimal access right frontal craniotomy with biopsy and gross PAST SURGICAL HISTORY OF spinal injection FAMILY HISTORY Problem Relation Age of Onset Arthritis Mother Arthritis Father None Brother Social History Tobacco Use Smoking status: Former Current packs/day: 1.00 Average packs/day: 1 pack/day for 3.0 years (3.0 ttl pk-yrs) Types: Cigarettes Smokeless tobacco: Former Tobacco comments: QUIT 50 YEARS AGO Vaping Use Vaping status: Never Used Substance Use Topics Alcohol use: Yes Comment: occassional Drug use: No Current Outpatient Medications on File Prior to Visit Medication Sig amoxicillin (AMOXIL) 500 mg capsule Take 4 capsules by mouth as directed. ONE HOUR PRIOR TO DENTAL WORK letrozole (FEMARA) 2.5 mg tablet Take 1 tablet by mouth once daily. spironolactone (ALDACTONE) 25 mg tablet oxybutynin (DITROPAN) 5 mg tablet Take 5 mg by mouth once daily. atenolol (TENORMIN) 25 mg tablet Take 25 mg by mouth twice daily. ASPIRIN ORAL Take 81 mg by mouth. ACETAMINOPHEN PAIN RELIEF ORAL Take by mouth. anastrozole (ARIMIDEX) 1 mg tablet Take 1 mg by mouth once daily. denosumab (PROLIA) 60 mg/mL Inject 60 mg subcutaneously one time only. rosuvastatin (CRESTOR) 10 mg tablet Take 10 mg by mouth daily at bedtime. cyanocobalamin, vitamin B-12, (VITAMIN B-12 ORAL) Take by mouth four times a week. UBIQUINONE ORAL Take 100 mg by mouth once daily. chlordiazePOXIDE-clidinium (LIBRAX) 5-2.5 mg per capsule Take 1 tablet by mouth DAILY. NEEDED WHEN PT EATS BEEF PRODUCTS Indications: FOR bEEF PRODUCTS EATEN clotrimazole-betamethasone (LOTRISONE) cream Apply 1 application to affected area as needed (for rash). as needed for rash Diclofenac Sodium (VOLTAREN) 1 % gel Apply 1 g to affected area three times daily as needed. QUININE, BULK, MISC 250 mg as needed. cholecalciferol, vitamin D3, 50,000 unit tab Take by mouth every Monday. valsartan (DIOVAN) 160 mg tablet Take 160 mg by mouth twice daily. amLODIPine (NORVASC) 5 mg tablet Take 5 mg by mouth twice daily. omeprazole 20 mg capsule Take 20 mg by mouth once daily. LUTEIN 20 MG CAP Take one(1) tablet daily. SYNTHROID 150MCG TABLET Take 150 mcg by mouth once daily. 1 tablet daily, and 1/2 tablet on monday tiZANidine (ZANAFLEX) 4 mg tablet Take 1 tablet by mouth twice daily as needed. (Patient not taking: Reported on 09/19/2024) No current facility-administered medications on file prior to visit. ALLERGIES Allergen Reactions Prednisone Shortness of Breath Pallor, chest pain, palpitations ORAL MEDICATIONS Beef Containing Pro* Intolerance Levaquin [Levofloxa* Other: See Comments sores in mouth/joint pain Mirapex [Pramipexol* Intolerance Doesn't help leg cramps Tramadol Intolerance Pt gets jittery Valsartan-Hydrochlo* Other: See Comments Worsens nocturnal leg cramps. Patient can take valsartan alone with no issues Data Reviewed: Current Medications, Past Medical History, Past Surgical History, Family History, Social History and Review of Systems: On Today's date, noted in the attribution, I have confirmed and edited as necessary, the PFSH and ROS obtained by others. Objective Exam: Vitals: As per nursing documentation Constitutional: Normal Appearance, Oriented to Time, Place and Person Head: No lacerations, no external signs of trauma Eyes: Conjunctiva clear. No discharge from the eyes Cardiovascular: Appears well-perfused Pulmonary: Non-labored respirations Abdominal: Non-distended Skin: No visible rashes or ecchymosis Psychiatric: Mood appropriate for given condition Neurological: Gross movements are limited by pain, but otherwise unremarkable MSK: trigger points to palpation of the muscle groups listed above Assessment and Plan: -repeat TPIs as needed pending outcome of the TPIs done today -appt scheduled for next week for evaluation [place] protocol documentation / Pre-Procedure Checklist: Consent: Obtained verbally prior to procedure I had a nice discussion with the patient today about their current pain and the pathology that could be causing it We discussed different treatment options, including risks, benefits and alternatives. We agreed to proceed as previously discussed, or the plan was modified in accordance with the comments noted above Patient identifiers, including name and date of , were confirmed After discussing risks and benefits, reviewing patient's allergy list to ensure all medications being given are tolerated to the best of our known information, the in-office procedure of Trigger Point Injections was performed at the locations noted above. The region(s) noted above were prepped using sterile technique. A 1.5 inch 25 gauge needle was used to multiple areas of muscle spasm using dry needle technique. The medication noted above was injected in equal parts at 9 total site(s) within the region(s) mentioned above. All points elicited local twitch responses which softened after the injection. After careful removal of the needle, there was minimal bleeding. The injection site was covered with appropriate sterile dressing where needed. The patient was noted to have tolerated the procedure well and was discharged after an appropriate period of post-procedure observation. The patient was instructed to contact us if there were any complications. The patient was advised to follow-up with the requesting physician within one to two weeks or as per their requested follow-up plan. Post procedure visit summary with written instructions was offered to the patient. Veena Meléndez APRN.LEAD APPLICATION ARCHITECT Pain Management [facility] PROGRESS Observed: 09/19/2024 1:03 PM Status: COMPLETED Source: [facility] HNO ID: [id number] Author: WARREN CHOWDHURY LPN Service: ? Author Type: LICENSED NURSE Type: Progress Notes Filed: 09/19/2024 13:32 Note Text: Review of Systems Constitutional: Positive for activity change. Negative for chills, fever and unexpected weight change. Genitourinary: Negative for difficulty urinating. Musculoskeletal: Positive for arthralgias, back pain, gait problem, neck pain and neck stiffness. Negative for joint swelling and myalgias. Neurological: Negative for weakness, numbness and headaches. Psychiatric/Behavioral: Positive for sleep disturbance. Negative for dysphoric mood and suicidal ideas. The patient is not nervous/anxious. ZULEIMAN Observed: 09/19/2024 12:00 AM Status: COMPLETED Source: [facility] Telephone (SPAGWO) GHADAALYCE J ([id number]) 1940 F NFR Date Time Provider Department 09/19/24 VEENA MELÉNDEZ During your visit today, we recorded the following information about you: Stephanie Landry 09/19/2024 1:44 PM Signed At check out patient did not wait to schedule TPIs as she is going to be getting a SCS. Stephanie David Allergies As of Date: 09/19/2024 Noted Allergy Reaction PREDNISONE 04/26/2012 12 - Shortness of Breath Comments: Pallor, chest pain, palpitations ORAL MEDICATIONS BEEF CONTAINING PRODUCTS 08/26/2014 5 - Intolerance LEVAQUIN (LEVOFLOXACIN) 08/28/2007 14 - Other: See Comments Comments: sores in mouth/joint pain MIRAPEX (PRAMIPEXOLE) 04/26/2012 5 - Intolerance Comments: Doesn't help leg cramps TRAMADOL 12/23/2014 5 - Intolerance Comments: Pt gets jittery VALSARTAN-HYDROCHLOROTHIAZIDE 04/26/2012 14 - Other: See Comments Comments: Worsens nocturnal leg cramps. Patient can take valsartan alone with no issues Date Reviewed: 09/19/2024 Reviewed by: Veena Meléndez APRN.LEAD APPLICATION ARCHITECT - Fully Assessed Reason for Visit: Appointment [186] Cmt: Patient did not want to schedule at check out Prescriptions as of 09/19/2024 - amoxicillin (AMOXIL) 500 mg capsule Take 4 capsules by mouth as directed. ONE HOUR PRIOR TO DENTAL WORK - letrozole (FEMARA) 2.5 mg tablet Take 1 tablet by mouth once daily. - spironolactone (ALDACTONE) 25 mg tablet - oxybutynin (DITROPAN) 5 mg tablet Take 5 mg by mouth once daily. - atenolol (TENORMIN) 25 mg tablet Take 25 mg by mouth twice daily. - ASPIRIN ORAL Take 81 mg by mouth. - ACETAMINOPHEN PAIN RELIEF ORAL Take by mouth. - anastrozole (ARIMIDEX) 1 mg tablet Take 1 mg by mouth once daily. - denosumab (PROLIA) 60 mg/mL Inject 60 mg subcutaneously one time only. - rosuvastatin (CRESTOR) 10 mg tablet Take 10 mg by mouth daily at bedtime. - cyanocobalamin, vitamin B-12, (VITAMIN B-12 ORAL) Take by mouth four times a week. - UBIQUINONE ORAL Take 100 mg by mouth once daily. - tiZANidine (ZANAFLEX) 4 mg tablet Take 1 tablet by mouth twice daily as needed. - chlordiazePOXIDE-clidinium (LIBRAX) 5-2.5 mg per capsule Take 1 tablet by mouth DAILY. NEEDED WHEN PT EATS BEEF PRODUCTS Indications: FOR bEEF PRODUCTS EATEN - clotrimazole-betamethasone (LOTRISONE) cream Apply 1 application to affected area as needed (for rash). as needed for rash - Diclofenac Sodium (VOLTAREN) 1 % gel Apply 1 g to affected area three times daily as needed. - QUININE, BULK, MISC 250 mg as needed. - cholecalciferol, vitamin D3, 50,000 unit tab Take by mouth every Monday. - valsartan (DIOVAN) 160 mg tablet Take 160 mg by mouth twice daily. - amLODIPine (NORVASC) 5 mg tablet Take 5 mg by mouth twice daily. - omeprazole 20 mg capsule Take 20 mg by mouth once daily. - LUTEIN 20 MG CAP Take one(1) tablet daily. - SYNTHROID 150MCG TABLET Take 150 mcg by mouth once daily. 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] 07/17/2007 OA (Osteoarthritis) of Knee [M17.9] 08/19/2009 Endometrial mass [N94.89] 10/05/2012 10/29/2012 Lumbar spondylosis [M47.816] 07/23/2014 DDD (degenerative disc disease), lumbar [M51.36*07/23/2014 GERD (gastroesophageal reflux disease) [K21.9] 12/19/2014 Asthma [J45.909] 12/19/2014 Anemia [D64.9] 12/19/2014 CKD (chronic kidney disease) [N18.9] 12/19/2014 Cervical spondylosis without myelopathy [M47.81*01/06/2015 Neck pain [M54.2] 01/06/2015 Bilateral occipital neuralgia [M54.81] 01/06/2015 Cervical strain [S16.1XXA] 01/06/2015 Non morbid obesity [E66.9] 06/25/2015 H/O total hip arthroplasty [Z96.649] 07/06/2015 Altered gait [R26.9] 08/27/2015 Weakness of right hip [R29.898] 08/27/2015 Chronic pain of left knee [M25.562, G89.29] 10/05/2015 Iron deficiency anemia, unspecified [D50.9] 06/21/2016 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.9] 06/21/2016 Status post knee replacement [Z96.659] 06/27/2016 Weakness of both lower extremities [R29.898] 01/20/2017 Chronic bilateral low back pain without sciatic*01/20/2017 Degenerative disc disease, lumbar [M51.369] 03/15/2017 Lumbar facet joint pain [M54.59] 03/15/2017 Chronic low back pain without sciatica [M54.50,*09/20/2017 Chronic right-sided low back pain without sciat*10/30/2017 Myofascial pain [M79.18] 11/01/2021 Spinal stenosis, lumbar region, without neuroge*11/01/2021 Lumbar radiculopathy [M54.16] 11/01/2021 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 Reviewed the denial letter the pt brought into the office. I am referring the pt to Dr Jay for a second opinion regarding the SCS. Below is the oswestry questionnaire that is required for approval. AG SPINE PAIN OSWESTRY QUESTIONAIRE Allergies As of Date: 09/19/2024 Noted Allergy Reaction PREDNISONE 04/26/2012 12 - Shortness of Breath Comments: Pallor, chest pain, palpitations ORAL MEDICATIONS BEEF CONTAINING PRODUCTS 08/26/2014 5 - Intolerance LEVAQUIN (LEVOFLOXACIN) 08/28/2007 14 - Other: See Comments Comments: sores in mouth/joint pain MIRAPEX (PRAMIPEXOLE) 04/26/2012 5 - Intolerance Comments: Doesn't help leg cramps TRAMADOL 12/23/2014 5 - Intolerance Comments: Pt gets jittery VALSARTAN-HYDROCHLOROTHIAZIDE 04/26/2012 14 - Other: See Comments Comments: Worsens nocturnal leg cramps. 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 ONE HOUR PRIOR TO DENTAL WORK - letrozole (FEMARA) 2.5 mg tablet Take 1 tablet by mouth once daily. - spironolactone (ALDACTONE) 25 mg tablet - oxybutynin (DITROPAN) 5 mg tablet Take 5 mg by mouth once daily. - atenolol (TENORMIN) 25 mg tablet Take 25 mg by mouth twice daily. - ASPIRIN ORAL Take 81 mg by mouth. - ACETAMINOPHEN PAIN RELIEF ORAL Take by mouth. - anastrozole (ARIMIDEX) 1 mg tablet Take 1 mg by mouth once daily. - denosumab (PROLIA) 60 mg/mL Inject 60 mg subcutaneously one time only. - rosuvastatin (CRESTOR) 10 mg tablet Take 10 mg by mouth daily at bedtime. - cyanocobalamin, vitamin B-12, (VITAMIN B-12 ORAL) Take by mouth four times a week. - UBIQUINONE ORAL Take 100 mg by mouth once daily. - tiZANidine (ZANAFLEX) 4 mg tablet Take 1 tablet by mouth twice daily as needed. - chlordiazePOXIDE-clidinium (LIBRAX) 5-2.5 mg per capsule Take 1 tablet by mouth DAILY. NEEDED WHEN PT EATS BEEF PRODUCTS Indications: FOR bEEF PRODUCTS EATEN - clotrimazole-betamethasone (LOTRISONE) cream Apply 1 application to affected area as needed (for rash). as needed for rash - Diclofenac Sodium (VOLTAREN) 1 % gel Apply 1 g to affected area three times daily as needed. - QUININE, BULK, MISC 250 mg as needed. - cholecalciferol, vitamin D3, 50,000 unit tab Take by mouth every Monday. - valsartan (DIOVAN) 160 mg tablet Take 160 mg by mouth twice daily. - amLODIPine (NORVASC) 5 mg tablet Take 5 mg by mouth twice daily. - omeprazole 20 mg capsule Take 20 mg by mouth once daily. - LUTEIN 20 MG CAP Take one(1) tablet daily. - SYNTHROID 150MCG TABLET Take 150 mcg by mouth once daily. 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] 07/17/2007 OA (Osteoarthritis) of Knee [M17.9] 08/19/2009 Endometrial mass [N94.89] 10/05/2012 10/29/2012 Lumbar spondylosis [M47.816] 07/23/2014 DDD (degenerative disc disease), lumbar [M51.36*07/23/2014 GERD (gastroesophageal reflux disease) [K21.9] 12/19/2014 Asthma [J45.909] 12/19/2014 Anemia [D64.9] 12/19/2014 CKD (chronic kidney disease) [N18.9] 12/19/2014 Cervical spondylosis without myelopathy [M47.81*01/06/2015 Neck pain [M54.2] 01/06/2015 Bilateral occipital neuralgia [M54.81] 01/06/2015 Cervical strain [S16.1XXA] 01/06/2015 Non morbid obesity [E66.9] 06/25/2015 H/O total hip arthroplasty [Z96.649] 07/06/2015 Altered gait [R26.9] 08/27/2015 Weakness of right hip [R29.898] 08/27/2015 Chronic pain of left knee [M25.562, G89.29] 10/05/2015 Iron deficiency anemia, unspecified [D50.9] 06/21/2016 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.9] 06/21/2016 Status post knee replacement [Z96.659] 06/27/2016 Weakness of both lower extremities [R29.898] 01/20/2017 Chronic bilateral low back pain without sciatic*01/20/2017 Degenerative disc disease, lumbar [M51.369] 03/15/2017 Lumbar facet joint pain [M54.59] 03/15/2017 Chronic low back pain without sciatica [M54.50,*09/20/2017 Chronic right-sided low back pain without sciat*10/30/2017 Myofascial pain [M79.18] 11/01/2021 Spinal stenosis, lumbar region, without neuroge*11/01/2021 Lumbar radiculopathy [M54.16] 11/01/2021 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 Paresthesias [R20.2] 10/31/2023 Questionnaire: AG SPINE PAIN OSWESTRY QUESTIONNAIRE Pain Intensity -> 4 - The pain is very severe at the moment Personal Care (Washing/Dressing) -> 2 - It is painful to look after myself and I am slow and careful Lifting -> 4 - I can lift only very light weights Walking -> 5 - I can only walk using a cane or crutches Sitting -> 1 - I can sit in my favorite chair as long as I like Standing -> 5 - Pain prevents me from standing at all Sleeping -> 2 - Even when I take medication I have less than 6 hours of sleep Sex Life -> 3 - My sex life is severely restricted by pain Social Life -> 3 - Pain has restricted my social life and I do not go out as often Traveling -> 3 - Pain restricts me to journeys of less than 1 hour Total Score -> 32 Interpretation -> 0% - 20% - minimal disability Encounter Status:Closed by VEENA MELÉNDEZ on 09/19/24 NIMA Observed: 08/19/2024 12:00 AM Status: COMPLETED Source: [facility] Telephone ([email or web address]) ALYCE URRUTIA ([id number]) 1940 F NFR Date Time Provider Department 08/19/24 [facility] During your visit today, we recorded the following information about you: Allergies As of Date: 08/19/2024 Noted Allergy Reaction PREDNISONE 04/26/2012 12 - Shortness of Breath Comments: Pallor, chest pain, palpitations ORAL MEDICATIONS BEEF CONTAINING PRODUCTS 08/26/2014 5 - Intolerance LEVAQUIN (LEVOFLOXACIN) 08/28/2007 14 - Other: See Comments Comments: sores in mouth/joint pain MIRAPEX (PRAMIPEXOLE) 04/26/2012 5 - Intolerance Comments: Doesn't help leg cramps TRAMADOL 12/23/2014 5 - Intolerance Comments: Pt gets jittery VALSARTAN-HYDROCHLOROTHIAZIDE 04/26/2012 14 - Other: See Comments Comments: Worsens nocturnal leg cramps. Patient can take valsartan alone with no issues Date Reviewed: 07/11/2024 Reviewed by: Tl Cordero LPN - Fully Assessed Prescriptions as of 08/19/2024 - amoxicillin (AMOXIL) 500 mg capsule Take 4 capsules by mouth as directed. ONE HOUR PRIOR TO DENTAL WORK - letrozole (FEMARA) 2.5 mg tablet Take 1 tablet by mouth once daily. - spironolactone (ALDACTONE) 25 mg tablet - oxybutynin (DITROPAN) 5 mg tablet Take 5 mg by mouth once daily. - atenolol (TENORMIN) 25 mg tablet Take 25 mg by mouth twice daily. - ASPIRIN ORAL Take 81 mg by mouth. - ACETAMINOPHEN PAIN RELIEF ORAL Take by mouth. - anastrozole (ARIMIDEX) 1 mg tablet Take 1 mg by mouth once daily. - denosumab (PROLIA) 60 mg/mL Inject 60 mg subcutaneously one time only. - rosuvastatin (CRESTOR) 10 mg tablet Take 10 mg by mouth daily at bedtime. - cyanocobalamin, vitamin B-12, (VITAMIN B-12 ORAL) Take by mouth four times a week. - UBIQUINONE ORAL Take 100 mg by mouth once daily. - tiZANidine (ZANAFLEX) 4 mg tablet Take 1 tablet by mouth twice daily as needed. - chlordiazePOXIDE-clidinium (LIBRAX) 5-2.5 mg per capsule Take 1 tablet by mouth DAILY. NEEDED WHEN PT EATS BEEF PRODUCTS Indications: FOR bEEF PRODUCTS EATEN - clotrimazole-betamethasone (LOTRISONE) cream Apply 1 application to affected area as needed (for rash). as needed for rash - Diclofenac Sodium (VOLTAREN) 1 % gel Apply 1 g to affected area three times daily as needed. - QUININE, BULK, MISC 250 mg as needed. - cholecalciferol, vitamin D3, 50,000 unit tab Take by mouth every Monday. - valsartan (DIOVAN) 160 mg tablet Take 160 mg by mouth twice daily. - amLODIPine (NORVASC) 5 mg tablet Take 5 mg by mouth twice daily. - omeprazole 20 mg capsule Take 20 mg by mouth once daily. - LUTEIN 20 MG CAP Take one(1) tablet daily. - SYNTHROID 150MCG TABLET Take 150 mcg by mouth once daily. 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] 07/17/2007 OA (Osteoarthritis) of Knee [M17.9] 08/19/2009 Endometrial mass [N94.89] 10/05/2012 10/29/2012 Lumbar spondylosis [M47.816] 07/23/2014 DDD (degenerative disc disease), lumbar [M51.36*07/23/2014 GERD (gastroesophageal reflux disease) [K21.9] 12/19/2014 Asthma [J45.909] 12/19/2014 Anemia [D64.9] 12/19/2014 CKD (chronic kidney disease) [N18.9] 12/19/2014 Cervical spondylosis without myelopathy [M47.81*01/06/2015 Neck pain [M54.2] 01/06/2015 Bilateral occipital neuralgia [M54.81] 01/06/2015 Cervical strain [S16.1XXA] 01/06/2015 Non morbid obesity [E66.9] 06/25/2015 H/O total hip arthroplasty [Z96.649] 07/06/2015 Altered gait [R26.9] 08/27/2015 Weakness of right hip [R29.898] 08/27/2015 Chronic pain of left knee [M25.562, G89.29] 10/05/2015 Iron deficiency anemia, unspecified [D50.9] 06/21/2016 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.9] 06/21/2016 Status post knee replacement [Z96.659] 06/27/2016 Weakness of both lower extremities [R29.898] 01/20/2017 Chronic bilateral low back pain without sciatic*01/20/2017 Degenerative disc disease, lumbar [M51.369] 03/15/2017 Lumbar facet joint pain [M54.59] 03/15/2017 Chronic low back pain without sciatica [M54.50,*09/20/2017 Chronic right-sided low back pain without sciat*10/30/2017 Myofascial pain [M79.18] 11/01/2021 Spinal stenosis, lumbar region, without neuroge*11/01/2021 Lumbar radiculopathy [M54.16] 11/01/2021 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 Paresthesias [R20.2] 10/31/2023 Encounter Status:Closed by WENDY ZULETA on 08/19/24 CNPN Observed: 08/19/2024 12:00 AM Status: COMPLETED Source: [facility] Telephone (AGSPINE1) ALYCE URRUTIA ([id number]) 1940 F NFR Date Time Provider Department 08/19/24 TODD GARCIA AGSPINE1 During your visit today, we recorded the following information about you: Wendy Zuleta 08/19/2024 8:35 AM Signed Allergies As of Date: 08/19/2024 Noted Allergy Reaction PREDNISONE 04/26/2012 12 - Shortness of Breath Comments: Pallor, chest pain, palpitations ORAL MEDICATIONS BEEF CONTAINING PRODUCTS 08/26/2014 5 - Intolerance LEVAQUIN (LEVOFLOXACIN) 08/28/2007 14 - Other: See Comments Comments: sores in mouth/joint pain MIRAPEX (PRAMIPEXOLE) 04/26/2012 5 - Intolerance Comments: Doesn't help leg cramps TRAMADOL 12/23/2014 5 - Intolerance Comments: Pt gets jittery VALSARTAN-HYDROCHLOROTHIAZIDE 04/26/2012 14 - Other: See Comments Comments: Worsens nocturnal leg cramps. Patient can take valsartan alone with no issues Date Reviewed: 07/11/2024 Reviewed by: Tl Cordero LPN - Fully Assessed Reason for Visit: Patient Update [1234] Cmt: [facility] TRIAL SUBMITTED PENDING Prescriptions as of 08/19/2024 - amoxicillin (AMOXIL) 500 mg capsule Take 4 capsules by mouth as directed. ONE HOUR PRIOR TO DENTAL WORK - letrozole (FEMARA) 2.5 mg tablet Take 1 tablet by mouth once daily. - spironolactone (ALDACTONE) 25 mg tablet - oxybutynin (DITROPAN) 5 mg tablet Take 5 mg by mouth once daily. - atenolol (TENORMIN) 25 mg tablet Take 25 mg by mouth twice daily. - ASPIRIN ORAL Take 81 mg by mouth. - ACETAMINOPHEN PAIN RELIEF ORAL Take by mouth. - anastrozole (ARIMIDEX) 1 mg tablet Take 1 mg by mouth once daily. - denosumab (PROLIA) 60 mg/mL Inject 60 mg subcutaneously one time only. - rosuvastatin (CRESTOR) 10 mg tablet Take 10 mg by mouth daily at bedtime. - cyanocobalamin, vitamin B-12, (VITAMIN B-12 ORAL) Take by mouth four times a week. - UBIQUINONE ORAL Take 100 mg by mouth once daily. - tiZANidine (ZANAFLEX) 4 mg tablet Take 1 tablet by mouth twice daily as needed. - chlordiazePOXIDE-clidinium (LIBRAX) 5-2.5 mg per capsule Take 1 tablet by mouth DAILY. NEEDED WHEN PT EATS BEEF PRODUCTS Indications: FOR bEEF PRODUCTS EATEN - clotrimazole-betamethasone (LOTRISONE) cream Apply 1 application to affected area as needed (for rash). as needed for rash - Diclofenac Sodium (VOLTAREN) 1 % gel Apply 1 g to affected area three times daily as needed. - QUININE, BULK, MISC 250 mg as needed. - cholecalciferol, vitamin D3, 50,000 unit tab Take by mouth every Monday. - valsartan (DIOVAN) 160 mg tablet Take 160 mg by mouth twice daily. - amLODIPine (NORVASC) 5 mg tablet Take 5 mg by mouth twice daily. - omeprazole 20 mg capsule Take 20 mg by mouth once daily. - LUTEIN 20 MG CAP Take one(1) tablet daily. - SYNTHROID 150MCG TABLET Take 150 mcg by mouth once daily. 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] 07/17/2007 OA (Osteoarthritis) of Knee [M17.9] 08/19/2009 Endometrial mass [N94.89] 10/05/2012 10/29/2012 Lumbar spondylosis [M47.816] 07/23/2014 DDD (degenerative disc disease), lumbar [M51.36*07/23/2014 GERD (gastroesophageal reflux disease) [K21.9] 12/19/2014 Asthma [J45.909] 12/19/2014 Anemia [D64.9] 12/19/2014 CKD (chronic kidney disease) [N18.9] 12/19/2014 Cervical spondylosis without myelopathy [M47.81*01/06/2015 Neck pain [M54.2] 01/06/2015 Bilateral occipital neuralgia [M54.81] 01/06/2015 Cervical strain [S16.1XXA] 01/06/2015 Non morbid obesity [E66.9] 06/25/2015 H/O total hip arthroplasty [Z96.649] 07/06/2015 Altered gait [R26.9] 08/27/2015 Weakness of right hip [R29.898] 08/27/2015 Chronic pain of left knee [M25.562, G89.29] 10/05/2015 Iron deficiency anemia, unspecified [D50.9] 06/21/2016 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.9] 06/21/2016 Status post knee replacement [Z96.659] 06/27/2016 Weakness of both lower extremities [R29.898] 01/20/2017 Chronic bilateral low back pain without sciatic*01/20/2017 Degenerative disc disease, lumbar [M51.369] 03/15/2017 Lumbar facet joint pain [M54.59] 03/15/2017 Chronic low back pain without sciatica [M54.50,*09/20/2017 Chronic right-sided low back pain without sciat*10/30/2017 Myofascial pain [M79.18] 11/01/2021 Spinal stenosis, lumbar region, without neuroge*11/01/2021 Lumbar radiculopathy [M54.16] 11/01/2021 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 She said she hasn't heard anything and would like a call back. Farheen Solitario Allergies As of Date: 07/26/2024 Noted Allergy Reaction PREDNISONE 04/26/2012 12 - Shortness of Breath Comments: Pallor, chest pain, palpitations ORAL MEDICATIONS BEEF CONTAINING PRODUCTS 08/26/2014 5 - Intolerance LEVAQUIN (LEVOFLOXACIN) 08/28/2007 14 - Other: See Comments Comments: sores in mouth/joint pain MIRAPEX (PRAMIPEXOLE) 04/26/2012 5 - Intolerance Comments: Doesn't help leg cramps TRAMADOL 12/23/2014 5 - Intolerance Comments: Pt gets jittery VALSARTAN-HYDROCHLOROTHIAZIDE 04/26/2012 14 - Other: See Comments Comments: Worsens nocturnal leg cramps. Patient can take valsartan alone with no issues Date Reviewed: 07/11/2024 Reviewed by: Tl Cordero LPN - Fully Assessed Reason for Visit: Patient Question [1856] Cmt: Next step for [employer] Prescriptions as of 07/26/2024 - amoxicillin (AMOXIL) 500 mg capsule Take 4 capsules by mouth as directed. ONE HOUR PRIOR TO DENTAL WORK - letrozole (FEMARA) 2.5 mg tablet Take 1 tablet by mouth once daily. - spironolactone (ALDACTONE) 25 mg tablet - oxybutynin (DITROPAN) 5 mg tablet Take 5 mg by mouth once daily. - atenolol (TENORMIN) 25 mg tablet Take 25 mg by mouth twice daily. - ASPIRIN ORAL Take 81 mg by mouth. - ACETAMINOPHEN PAIN RELIEF ORAL Take by mouth. - anastrozole (ARIMIDEX) 1 mg tablet Take 1 mg by mouth once daily. - denosumab (PROLIA) 60 mg/mL Inject 60 mg subcutaneously one time only. - rosuvastatin (CRESTOR) 10 mg tablet Take 10 mg by mouth daily at bedtime. - cyanocobalamin, vitamin B-12, (VITAMIN B-12 ORAL) Take by mouth four times a week. - UBIQUINONE ORAL Take 100 mg by mouth once daily. - tiZANidine (ZANAFLEX) 4 mg tablet Take 1 tablet by mouth twice daily as needed. - chlordiazePOXIDE-clidinium (LIBRAX) 5-2.5 mg per capsule Take 1 tablet by mouth DAILY. NEEDED WHEN PT EATS BEEF PRODUCTS Indications: FOR bEEF PRODUCTS EATEN - clotrimazole-betamethasone (LOTRISONE) cream Apply 1 application to affected area as needed (for rash). as needed for rash - Diclofenac Sodium (VOLTAREN) 1 % gel Apply 1 g to affected area three times daily as needed. - QUININE, BULK, MISC 250 mg as needed. - cholecalciferol, vitamin D3, 50,000 unit tab Take by mouth every Monday. - valsartan (DIOVAN) 160 mg tablet Take 160 mg by mouth twice daily. - amLODIPine (NORVASC) 5 mg tablet Take 5 mg by mouth twice daily. - omeprazole 20 mg capsule Take 20 mg by mouth once daily. - LUTEIN 20 MG CAP Take one(1) tablet daily. - SYNTHROID 150MCG TABLET Take 150 mcg by mouth once daily. 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] 07/17/2007 OA (Osteoarthritis) of Knee [M17.9] 08/19/2009 Endometrial mass [N94.89] 10/05/2012 10/29/2012 Lumbar spondylosis [M47.816] 07/23/2014 DDD (degenerative disc disease), lumbar [M51.36*07/23/2014 GERD (gastroesophageal reflux disease) [K21.9] 12/19/2014 Asthma [J45.909] 12/19/2014 Anemia [D64.9] 12/19/2014 CKD (chronic kidney disease) [N18.9] 12/19/2014 Cervical spondylosis without myelopathy [M47.81*01/06/2015 Neck pain [M54.2] 01/06/2015 Bilateral occipital neuralgia [M54.81] 01/06/2015 Cervical strain [S16.1XXA] 01/06/2015 Non morbid obesity [E66.9] 06/25/2015 H/O total hip arthroplasty [Z96.649] 07/06/2015 Altered gait [R26.9] 08/27/2015 Weakness of right hip [R29.898] 08/27/2015 Chronic pain of left knee [M25.562, G89.29] 10/05/2015 Iron deficiency anemia, unspecified [D50.9] 06/21/2016 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.9] 06/21/2016 Status post knee replacement [Z96.659] 06/27/2016 Weakness of both lower extremities [R29.898] 01/20/2017 Chronic bilateral low back pain without sciatic*01/20/2017 Degenerative disc disease, lumbar [M51.369] 03/15/2017 Lumbar facet joint pain [M54.59] 03/15/2017 Chronic low back pain without sciatica [M54.50,*09/20/2017 Chronic right-sided low back pain without sciat*10/30/2017 Myofascial pain [M79.18] 11/01/2021 Spinal stenosis, lumbar region, without neuroge*11/01/2021 Lumbar radiculopathy [M54.16] 11/01/2021 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 Paresthesias [R20.2] 10/31/2023 Encounter Status:Closed by FARHEEN SOLITARIO on 07/26/24 CNPN Observed: 07/26/2024 12:00 AM Status: COMPLETED Source: [facility] Telephone ([email or web address]) ALYCE URRUTIA ([id number]) 1940 F NFR Date Time Provider Department 07/26/24 TODD GARCIA AGSPINE3 During your visit today, we recorded the following information about you: Wendy Zuleta 07/26/2024 12:58 PM Signed Spoke to patient waiting call from [facility] Allergies As of Date: 07/26/2024 Noted Allergy Reaction PREDNISONE 04/26/2012 12 - Shortness of Breath Comments: Pallor, chest pain, palpitations ORAL MEDICATIONS BEEF CONTAINING PRODUCTS 08/26/2014 5 - Intolerance LEVAQUIN (LEVOFLOXACIN) 08/28/2007 14 - Other: See Comments Comments: sores in mouth/joint pain MIRAPEX (PRAMIPEXOLE) 04/26/2012 5 - Intolerance Comments: Doesn't help leg cramps TRAMADOL 12/23/2014 5 - Intolerance Comments: Pt gets jittery VALSARTAN-HYDROCHLOROTHIAZIDE 04/26/2012 14 - Other: See Comments Comments: Worsens nocturnal leg cramps. Patient can take valsartan alone with no issues Date Reviewed: 07/11/2024 Reviewed by: Tl Cordero LPN - Fully Assessed Prescriptions as of 07/26/2024 - amoxicillin (AMOXIL) 500 mg capsule Take 4 capsules by mouth as directed. ONE HOUR PRIOR TO DENTAL WORK - letrozole (FEMARA) 2.5 mg tablet Take 1 tablet by mouth once daily. - spironolactone (ALDACTONE) 25 mg tablet - oxybutynin (DITROPAN) 5 mg tablet Take 5 mg by mouth once daily. - atenolol (TENORMIN) 25 mg tablet Take 25 mg by mouth twice daily. - ASPIRIN ORAL Take 81 mg by mouth. - ACETAMINOPHEN PAIN RELIEF ORAL Take by mouth. - anastrozole (ARIMIDEX) 1 mg tablet Take 1 mg by mouth once daily. - denosumab (PROLIA) 60 mg/mL Inject 60 mg subcutaneously one time only. - rosuvastatin (CRESTOR) 10 mg tablet Take 10 mg by mouth daily at bedtime. - cyanocobalamin, vitamin B-12, (VITAMIN B-12 ORAL) Take by mouth four times a week. - UBIQUINONE ORAL Take 100 mg by mouth once daily. - tiZANidine (ZANAFLEX) 4 mg tablet Take 1 tablet by mouth twice daily as needed. - chlordiazePOXIDE-clidinium (LIBRAX) 5-2.5 mg per capsule Take 1 tablet by mouth DAILY. NEEDED WHEN PT EATS BEEF PRODUCTS Indications: FOR bEEF PRODUCTS EATEN - clotrimazole-betamethasone (LOTRISONE) cream Apply 1 application to affected area as needed (for rash). as needed for rash - Diclofenac Sodium (VOLTAREN) 1 % gel Apply 1 g to affected area three times daily as needed. - QUININE, BULK, MISC 250 mg as needed. - cholecalciferol, vitamin D3, 50,000 unit tab Take by mouth every Monday. - valsartan (DIOVAN) 160 mg tablet Take 160 mg by mouth twice daily. - amLODIPine (NORVASC) 5 mg tablet Take 5 mg by mouth twice daily. - omeprazole 20 mg capsule Take 20 mg by mouth once daily. - LUTEIN 20 MG CAP Take one(1) tablet daily. - SYNTHROID 150MCG TABLET Take 150 mcg by mouth once daily. 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] 07/17/2007 OA (Osteoarthritis) of Knee [M17.9] 08/19/2009 Endometrial mass [N94.89] 10/05/2012 10/29/2012 Lumbar spondylosis [M47.816] 07/23/2014 DDD (degenerative disc disease), lumbar [M51.36*07/23/2014 GERD (gastroesophageal reflux disease) [K21.9] 12/19/2014 Asthma [J45.909] 12/19/2014 Anemia [D64.9] 12/19/2014 CKD (chronic kidney disease) [N18.9] 12/19/2014 Cervical spondylosis without myelopathy [M47.81*01/06/2015 Neck pain [M54.2] 01/06/2015 Bilateral occipital neuralgia [M54.81] 01/06/2015 Cervical strain [S16.1XXA] 01/06/2015 Non morbid obesity [E66.9] 06/25/2015 H/O total hip arthroplasty [Z96.649] 07/06/2015 Altered gait [R26.9] 08/27/2015 Weakness of right hip [R29.898] 08/27/2015 Chronic pain of left knee [M25.562, G89.29] 10/05/2015 Iron deficiency anemia, unspecified [D50.9] 06/21/2016 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.9] 06/21/2016 Status post knee replacement [Z96.659] 06/27/2016 Weakness of both lower extremities [R29.898] 01/20/2017 Chronic bilateral low back pain without sciatic*01/20/2017 Degenerative disc disease, lumbar [M51.369] 03/15/2017 Lumbar facet joint pain [M54.59] 03/15/2017 Chronic low back pain without sciatica [M54.50,*09/20/2017 Chronic right-sided low back pain without sciat*10/30/2017 Myofascial pain [M79.18] 11/01/2021 Spinal stenosis, lumbar region, without neuroge*11/01/2021 Lumbar radiculopathy [M54.16] 11/01/2021 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 Paresthesias [R20.2] 10/31/2023 Encounter Status:Closed by WENDY ZULETA on 07/26/24 XR CERV 6V AP/LAT/FLX/EXT/OBL Observed: 07/11/2024 3:56 PM Status: F Source: [facility] * * *Final Report* * * DATE OF EXAM: Jul 11 2024 3:56PM [id number] [id number] - XR CERV 6V AP/LAT/FLX/EXT/OBL / PROCEDURE REASON: Cervical pain (neck) * * * * Physician Interpretation * * * * TITLE: XR CERV 6V AP/LAT/FLX/EXT/OBL CLINICAL INDICATION: Neck pain TECHNIQUE: AP, lateral, voluntary lateral flexion/extension and bilateral oblique radiographs of the cervical spine COMPARISON: None FINDINGS: Normal prevertebral soft tissues. Diffuse osseous demineralization. Preservation of cervical vertebral body height. Marginal osteophyte formation from the level of C3/C4 through C6/C7. Moderate disc space narrowing at C4/C5 and C5/C6. Moderately severe disc space narrowing at C6/C7. Facet joint arthrosis and uncovertebral hypertrophy from the level of C4/C5 through the cervicothoracic junction. Limited evaluation of the neural foramina due to patient positioning though suggestion of moderate bilateral C4/C5 through C6/C7 neural foraminal narrowing. On neutral positioning, there is mild grade 1 anterolisthesis of C5 on C6 and to a slightly greater extent of C6 on C7 which demonstrates no appreciable change with voluntary flexion and extension maneuvers. IMPRESSION: Multilevel degenerative changes as described. Mild grade 1 anterolisthesis of C5 on C6 and to a slightly greater extent of C6 on C7 which demonstrates no appreciable change with voluntary flexion and extension maneuvers. 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: [facility] Transcribe Date/Time: Jul 17 2024 10:59A Dictated by : IRWIN MCCAIN MD This examination was interpreted and the report reviewed and electronically signed by: IRWIN MCCAIN MD on Jul 17 2024 11:05AM EST [id number] PROGRESS Observed: 07/11/2024 3:50 PM Status: COMPLETED Source: [facility] HNO ID: [id number] Author: VIBHA GUERRA RT(R) Service: Radiology Author Type: Technologist Type: Progress Notes Filed: 07/11/2024 15:57 Note Text: Radiology Service Progress Note PATIENT NAME: Alyce Urrutia DATE OF SERVICE: July 11, 2024 TIME: 3:44 PM PATIENT IDENTITY VERIFICATION COMPLETED USING TWO (2) IDENTIFIERS: Name and Date of confirmed by patient verbally. FALL SCREENING: Has the patient had 2 falls in the last year or 1 fall with injury or currently using an Ambulatory Assistive Device (Walker, Cane, Wheelchair, Crutches, etc.)? No PATIENT GENDER DATA: Assigned female at . status: : No status: NO. PATIENT RELEVANT IMPLANT DATA REVIEWED: Not Applicable PATIENT PRESENTS WITH AN IMPLANTABLE OR ATTACHED MANAGER BANKING: No RADIOLOGY DEPARTMENT: General X-ray: Exam(s) Completed: Spine X-Ray(s): Cervical AP / LAT / OBL / FLEX-EXT PERIPHERAL IV DATA: Not applicable SIGNED BY: RT Roxana(R) July 11, 2024 3:44 PM PROCEDURE Observed: 07/11/2024 3:35 PM Status: COMPLETED Source: [facility] HNO ID: [id number] Author: VEENA MELÉNDEZ APRN.LEAD APPLICATION ARCHITECT Service: ? Author Type: Nurse Practitioner Type: Procedures Filed: 07/11/2024 15:39 Note Text: [facility] Patient Date of : 1940 Today's Date: 07/11/2024 Provider performing procedure: Veena Meléndez APRN.LEAD APPLICATION ARCHITECT Procedure: bilateral paraspinal and rhomboid lumbar Trigger Point Injection(s) Injectate: A total of 4 cc of 0.25% Bupivacaine Diagnosis (Indication for procedure): Myofacial pain Comments: none HPI: Alyce Urrutia is an 83 year old FEMALE who presents today, in pain, for the procedure noted above. PAST MEDICAL HISTORY Diagnosis Date Abdominal pain, epigastric Abdominal pain, unspecified site Acute gastritis without mention of hemorrhage Anemia, unspecified Asthma (HCC) Circumscribed scleroderma Diverticulosis of colon (without mention of hemorrhage) Essential hypertension, benign Internal hemorrhoids without mention of complication Irritable bowel syndrome Kidney disease Non morbid obesity 06/25/2015 Osteoarthrosis, unspecified whether generalized or localized, other specified sites Osteoarthritis Other diseases of lung, not elsewhere classified PMH - PAST MEDICAL HISTORY OF leukopenia Pure hypercholesterolemia Snoring Unspecified hypothyroidism PAST SURGICAL HISTORY Procedure Laterality Date ARTHROSCOPY KNEE DIAGNOSTIC W/WO SYNOVIAL BX SPX 01/2004 Arthroscopy, knee-RIGHT ARTHRP ACETBLR/PROX FEM PROSTC AGRFT/ALGRFT Right 07/06/2015 Hip replacement, total ARTHRP KNE CONDYLEANDPLATU MEDIALANDLAT COMPARTMENTS 06/12/2005 Knee replacement, total-right ARTHRP KNE CONDYLEANDPLATU MEDIALANDLAT COMPARTMENTS Left 06/27/2016 Knee replacement, total COLONOSCOPY FLX DX W/COLLJ SPEC WHEN PFRMD 11/28/2007 COLONOSCOPY FLX DX W/COLLJ SPEC WHEN PFRMD 10/06/2014 Colonoscopy DILATION AND CURETTAGE DXAND/THER NONOBSTETRIC 10/10/2012 Dilation AND curettage w/ resection polyp EGD TRANSORAL BIOPSY SINGLE/MULTIPLE 09/26/2006 LEFT HEART CATH,PERCUTANEOUS Right 08/2022 PAST SURGICAL HISTORY OF 04/07/1998 Minimal access right frontal craniotomy with biopsy and gross PAST SURGICAL HISTORY OF spinal injection FAMILY HISTORY Problem Relation Age of Onset Arthritis Mother Arthritis Father None Brother Social History Tobacco Use Smoking status: Former Current packs/day: 1.00 Average packs/day: 1 pack/day for 3.0 years (3.0 ttl pk-yrs) Types: Cigarettes Smokeless tobacco: Former Tobacco comments: QUIT 50 YEARS AGO Vaping Use Vaping status: Never Used Substance Use Topics Alcohol use: Yes Comment: occassional Drug use: No Current Outpatient Medications on File Prior to Visit Medication Sig amoxicillin (AMOXIL) 500 mg capsule Take 4 capsules by mouth as directed. ONE HOUR PRIOR TO DENTAL WORK letrozole (FEMARA) 2.5 mg tablet Take 1 tablet by mouth once daily. spironolactone (ALDACTONE) 25 mg tablet oxybutynin (DITROPAN) 5 mg tablet Take 5 mg by mouth once daily. atenolol (TENORMIN) 25 mg tablet Take 25 mg by mouth twice daily. ASPIRIN ORAL Take 81 mg by mouth. ACETAMINOPHEN PAIN RELIEF ORAL Take by mouth. anastrozole (ARIMIDEX) 1 mg tablet Take 1 mg by mouth once daily. denosumab (PROLIA) 60 mg/mL Inject 60 mg subcutaneously one time only. rosuvastatin (CRESTOR) 10 mg tablet Take 10 mg by mouth daily at bedtime. cyanocobalamin, vitamin B-12, (VITAMIN B-12 ORAL) Take by mouth four times a week. UBIQUINONE ORAL Take 100 mg by mouth once daily. chlordiazePOXIDE-clidinium (LIBRAX) 5-2.5 mg per capsule Take 1 tablet by mouth DAILY. NEEDED WHEN PT EATS BEEF PRODUCTS Indications: FOR bEEF PRODUCTS EATEN clotrimazole-betamethasone (LOTRISONE) cream Apply 1 application to affected area as needed (for rash). as needed for rash Diclofenac Sodium (VOLTAREN) 1 % gel Apply 1 g to affected area three times daily as needed. QUININE, BULK, MISC 250 mg as needed. cholecalciferol, vitamin D3, 50,000 unit tab Take by mouth every Monday. valsartan (DIOVAN) 160 mg tablet Take 160 mg by mouth twice daily. amLODIPine (NORVASC) 5 mg tablet Take 5 mg by mouth twice daily. omeprazole 20 mg capsule Take 20 mg by mouth once daily. LUTEIN 20 MG CAP Take one(1) tablet daily. SYNTHROID 150MCG TABLET Take 150 mcg by mouth once daily. 1 tablet daily, and 1/2 tablet on monday tiZANidine (ZANAFLEX) 4 mg tablet Take 1 tablet by mouth twice daily as needed. (Patient not taking: Reported on 07/11/2024) No current facility-administered medications on file prior to visit. ALLERGIES Allergen Reactions Prednisone Shortness of Breath Pallor, chest pain, palpitations ORAL MEDICATIONS Beef Containing Pro* Intolerance Levaquin [Levofloxa* Other: See Comments sores in mouth/joint pain Mirapex [Pramipexol* Intolerance Doesn't help leg cramps Tramadol Intolerance Pt gets jittery Valsartan-Hydrochlo* Other: See Comments Worsens nocturnal leg cramps. Patient can take valsartan alone with no issues Data Reviewed: Current Medications, Past Medical History, Past Surgical History, Family History, Social History and Review of Systems: On Today's date, noted in the attribution, I have confirmed and edited as necessary, the PFSH and ROS obtained by others. Objective Exam: Vitals: As per nursing documentation Constitutional: Normal Appearance, Oriented to Time, Place and Person Head: No lacerations, no external signs of trauma Eyes: Conjunctiva clear. No discharge from the eyes Cardiovascular: Appears well-perfused Pulmonary: Non-labored respirations Abdominal: Non-distended Skin: No visible rashes or ecchymosis Psychiatric: Mood appropriate for given condition Neurological: Gross movements are limited by pain, but otherwise unremarkable MSK: trigger points to palpation of the muscle groups listed above Assessment and Plan: -repeat TPIs as needed pending outcome of the TPIs done today -ordered a xray of the cervical spine due to increase pain [place] protocol documentation / Pre-Procedure Checklist: Consent: Obtained verbally prior to procedure I had a nice discussion with the patient today about their current pain and the pathology that could be causing it We discussed different treatment options, including risks, benefits and alternatives. We agreed to proceed as previously discussed, or the plan was modified in accordance with the comments noted above Patient identifiers, including name and date of , were confirmed After discussing risks and benefits, reviewing patient's allergy list to ensure all medications being given are tolerated to the best of our known information, the in-office procedure of Trigger Point Injections was performed at the locations noted above. The region(s) noted above were prepped using sterile technique. A 1.5 inch 25 gauge needle was used to multiple areas of muscle spasm using dry needle technique. The medication noted above was injected in equal parts at 9 total site(s) within the region(s) mentioned above. All points elicited local twitch responses which softened after the injection. After careful removal of the needle, there was minimal bleeding. The injection site was covered with appropriate sterile dressing where needed. The patient was noted to have tolerated the procedure well and was discharged after an appropriate period of post-procedure observation. The patient was instructed to contact us if there were any complications. The patient was advised to follow-up with the requesting physician within one to two weeks or as per their requested follow-up plan. Post procedure visit summary with written instructions was offered to the patient. Veena Meléndez APRN.LEAD APPLICATION ARCHITECT Pain Management [facility] CNOV Observed: 07/11/2024 3:15 PM Status: COMPLETED Source: [facility] Office Visit (SPAGWO) ALYCE URRUTIA ([id number]) 1940 F NFR Date Time Provider Department 07/11/24 3:15 PM VEENA MELÉNDEZ During your visit today, we recorded the following information about you: Pulse Respiration 68/minute 18/minute Tl Cordero LPN 07/11/2024 3:39 PM Signed Review of Systems Constitutional: Negative for activity change, chills, fever and unexpected weight change. Gastrointestinal: Negative for bowel retention or incontinence Genitourinary: Negative for difficulty urinating. Negative for bladder retention or incontinence Musculoskeletal: Positive for arthralgias, back pain, gait problem, joint swelling, myalgias, neck pain and neck stiffness. Neurological: Negative for weakness, numbness and headaches. Psychiatric/Behavioral: Negative for dysphoric mood, sleep disturbance and suicidal ideas. The patient is not nervous/anxious. Veena Meléndez APRN.LEAD APPLICATION ARCHITECT 07/11/2024 3:39 PM Signed [facility] Patient name: Alyce Urrutia Patient Date of : 1940 Today's Date: 07/11/2024 Provider performing procedure: Veena Meléndez APRN.LEAD APPLICATION ARCHITECT Procedure: bilateral paraspinal and rhomboid lumbar Trigger Point Injection(s) Injectate: A total of 4 cc of 0.25% Bupivacaine Diagnosis (Indication for procedure): Myofacial pain Comments: none HPI: Alyce Urrutia is an 83 year old FEMALE who presents today, in pain, for the procedure noted above. PAST MEDICAL HISTORY Diagnosis Date Abdominal pain, epigastric Abdominal pain, unspecified site Acute gastritis without mention of hemorrhage Anemia, unspecified Asthma (HCC) Circumscribed scleroderma Diverticulosis of colon (without mention of hemorrhage) Essential hypertension, benign Internal hemorrhoids without mention of complication Irritable bowel syndrome Kidney disease Non morbid obesity 06/25/2015 Osteoarthrosis, unspecified whether generalized or localized, other specified sites Osteoarthritis Other diseases of lung, not elsewhere classified PMH - PAST MEDICAL HISTORY OF leukopenia Pure hypercholesterolemia Snoring Unspecified hypothyroidism PAST SURGICAL HISTORY Procedure Laterality Date ARTHROSCOPY KNEE DIAGNOSTIC W/WO SYNOVIAL BX SPX 01/2004 Arthroscopy, knee-RIGHT ARTHRP ACETBLR/PROX FEM PROSTC AGRFT/ALGRFT Right 07/06/2015 Hip replacement, total ARTHRP KNE CONDYLEANDPLATU MEDIALANDLAT COMPARTMENTS 06/12/2005 Knee replacement, total-right ARTHRP KNE CONDYLEANDPLATU MEDIALANDLAT COMPARTMENTS Left 06/27/2016 Knee replacement, total COLONOSCOPY FLX DX W/COLLJ SPEC WHEN PFRMD 11/28/2007 COLONOSCOPY FLX DX W/COLLJ SPEC WHEN PFRMD 10/06/2014 Colonoscopy DILATION AND CURETTAGE DXAND/THER NONOBSTETRIC 10/10/2012 Dilation AND curettage w/ resection polyp EGD TRANSORAL BIOPSY SINGLE/MULTIPLE 09/26/2006 LEFT HEART CATH,PERCUTANEOUS Right 08/2022 PAST SURGICAL HISTORY OF 04/07/1998 Minimal access right frontal craniotomy with biopsy and gross PAST SURGICAL HISTORY OF spinal injection FAMILY HISTORY Problem Relation Age of Onset Arthritis Mother Arthritis Father None Brother Social History Tobacco Use Smoking status: Former Current packs/day: 1.00 Average packs/day: 1 pack/day for 3.0 years (3.0 ttl pk-yrs) Types: Cigarettes Smokeless tobacco: Former Tobacco comments: QUIT 50 YEARS AGO Vaping Use Vaping status: Never Used Substance Use Topics Alcohol use: Yes Comment: occassional Drug use: No Current Outpatient Medications on File Prior to Visit Medication Sig amoxicillin (AMOXIL) 500 mg capsule Take 4 capsules by mouth as directed. ONE HOUR PRIOR TO DENTAL WORK letrozole (FEMARA) 2.5 mg tablet Take 1 tablet by mouth once daily. spironolactone (ALDACTONE) 25 mg tablet oxybutynin (DITROPAN) 5 mg tablet Take 5 mg by mouth once daily. atenolol (TENORMIN) 25 mg tablet Take 25 mg by mouth twice daily. ASPIRIN ORAL Take 81 mg by mouth. ACETAMINOPHEN PAIN RELIEF ORAL Take by mouth. anastrozole (ARIMIDEX) 1 mg tablet Take 1 mg by mouth once daily. denosumab (PROLIA) 60 mg/mL Inject 60 mg subcutaneously one time only. rosuvastatin (CRESTOR) 10 mg tablet Take 10 mg by mouth daily at bedtime. cyanocobalamin, vitamin B-12, (VITAMIN B-12 ORAL) Take by mouth four times a week. UBIQUINONE ORAL Take 100 mg by mouth once daily. chlordiazePOXIDE-clidinium (LIBRAX) 5-2.5 mg per capsule Take 1 tablet by mouth DAILY. NEEDED WHEN PT EATS BEEF PRODUCTS Indications: FOR bEEF PRODUCTS EATEN clotrimazole-betamethasone (LOTRISONE) cream Apply 1 application to affected area as needed (for rash). as needed for rash Diclofenac Sodium (VOLTAREN) 1 % gel Apply 1 g to affected area three times daily as needed. QUININE, BULK, MISC 250 mg as needed. cholecalciferol, vitamin D3, 50,000 unit tab Take by mouth every Monday. valsartan (DIOVAN) 160 mg tablet Take 160 mg by mouth twice daily. amLODIPine (NORVASC) 5 mg tablet Take 5 mg by mouth twice daily. omeprazole 20 mg capsule Take 20 mg by mouth once daily. LUTEIN 20 MG CAP Take one(1) tablet daily. SYNTHROID 150MCG TABLET Take 150 mcg by mouth once daily. 1 tablet daily, and 1/2 tablet on monday tiZANidine (ZANAFLEX) 4 mg tablet Take 1 tablet by mouth twice daily as needed. (Patient not taking: Reported on 07/11/2024) No current facility-administered medications on file prior to visit. ALLERGIES Allergen Reactions Prednisone Shortness of Breath Pallor, chest pain, palpitations ORAL MEDICATIONS Beef Containing Pro* Intolerance Levaquin [Levofloxa* Other: See Comments sores in mouth/joint pain Mirapex [Pramipexol* Intolerance Doesn't help leg cramps Tramadol Intolerance Pt gets jittery Valsartan-Hydrochlo* Other: See Comments Worsens nocturnal leg cramps. Patient can take valsartan alone with no issues Data Reviewed: Current Medications, Past Medical History, Past Surgical History, Family History, Social History and Review of Systems: On Today's date, noted in the attribution, I have confirmed and edited as necessary, the PFSH and ROS obtained by others. Objective Exam: Vitals: As per nursing documentation Constitutional: Normal Appearance, Oriented to Time, Place and Person Head: No lacerations, no external signs of trauma Eyes: Conjunctiva clear. No discharge from the eyes Cardiovascular: Appears well-perfused Pulmonary: Non-labored respirations Abdominal: Non-distended Skin: No visible rashes or ecchymosis Psychiatric: Mood appropriate for given condition Neurological: Gross movements are limited by pain, but otherwise unremarkable MSK: trigger points to palpation of the muscle groups listed above Assessment and Plan: -repeat TPIs as needed pending outcome of the TPIs done today -ordered a xray of the cervical spine due to increase pain [place] protocol documentation / Pre-Procedure Checklist: Consent: Obtained verbally prior to procedure I had a nice discussion with the patient today about their current pain and the pathology that could be causing it We discussed different treatment options, including risks, benefits and alternatives. We agreed to proceed as previously discussed, or the plan was modified in accordance with the comments noted above Patient identifiers, including name and date of , were confirmed After discussing risks and benefits, reviewing patient's allergy list to ensure all medications being given are tolerated to the best of our known information, the in-office procedure of Trigger Point Injections was performed at the locations noted above. The region(s) noted above were prepped using sterile technique. A 1.5 inch 25 gauge needle was used to multiple areas of muscle spasm using dry needle technique. The medication noted above was injected in equal parts at 9 total site(s) within the region(s) mentioned above. All points elicited local twitch responses which softened after the injection. After careful removal of the needle, there was minimal bleeding. The injection site was covered with appropriate sterile dressing where needed. The patient was noted to have tolerated the procedure well and was discharged after an appropriate period of post-procedure observation. The patient was instructed to contact us if there were any complications. The patient was advised to follow-up with the requesting physician within one to two weeks or as per their requested follow-up plan. Post procedure visit summary with written instructions was offered to the patient. Veena Meléndez APRN.ZULEIMA Pain Management [facility] Veena Meléndez APRN.CNP 07/11/2024 3:38 PM Signed Procedure: Other: trigger point injection Post Procedure Instructions: You may resume normal activities the day after the procedure, as tolerated., Pain should gradually subside over the next 2-3 weeks., Apply cold compresses to injection site if needed. and Increased pain the day after the procedure may occur. Please increase water intake for the next 24 hours as this will help the soreness. If you have any of the following signs or symptoms, please call our office at Fever and/or chills Swelling and/or drainage from injection site New pain that is different than your normal pain (other than soreness at the site of the procedure) Stiff neck Shortness of breath Severe increase in pain Motor dysfunctions, such as difficulty walking, bowel or bladder dysfunction and/or incontinence Headache that is severe, light sensitive or develops when changing positions (positional headache) Nausea and/or vomiting accompanied by headache that started 24-48 hours after the procedure If you have any emergent concerns, please call 911 or go to your local emergency room. Please also contact our office to let us know you will be seeking emergency care and why. Referring Provider: VEENA MELÉNDEZ [[id number]] Allergies As of Date: 07/11/2024 Noted Allergy Reaction PREDNISONE 04/26/2012 12 - Shortness of Breath Comments: Pallor, chest pain, palpitations ORAL MEDICATIONS BEEF CONTAINING PRODUCTS 08/26/2014 5 - Intolerance LEVAQUIN (LEVOFLOXACIN) 08/28/2007 14 - Other: See Comments Comments: sores in mouth/joint pain MIRAPEX (PRAMIPEXOLE) 04/26/2012 5 - Intolerance Comments: Doesn't help leg cramps TRAMADOL 12/23/2014 5 - Intolerance Comments: Pt gets jittery VALSARTAN-HYDROCHLOROTHIAZIDE 04/26/2012 14 - Other: See Comments Comments: Worsens nocturnal leg cramps. Patient can take valsartan alone with no issues Date Reviewed: 07/11/2024 Reviewed by: Tl Cordero LPN - Fully Assessed Reason for Visit: Trigger Point Injection [1062] Low Back Pain [126] Primary Visit Diagnosis:Myofascial pain [M79.18] Other Visit Diagnosis:Cervical pain (neck) [M54.2] Order(s):TRIGGER POINT INJECTION MULTI 3+ MUSCLE GRP [[id number]] Order #: [id number] [] BUPivacaine HCl 7.5 mg injection (SENSORCAINE)Disp: Rfl: XR CERV OTHER 6V AP/LAT/FLX/EXT/OBL [[id number]] Order #: [id number] FUTURE Prescriptions as of 07/11/2024 - amoxicillin (AMOXIL) 500 mg capsule Take 4 capsules by mouth as directed. ONE HOUR PRIOR TO DENTAL WORK - letrozole (FEMARA) 2.5 mg tablet Take 1 tablet by mouth once daily. - spironolactone (ALDACTONE) 25 mg tablet - oxybutynin (DITROPAN) 5 mg tablet Take 5 mg by mouth once daily. - atenolol (TENORMIN) 25 mg tablet Take 25 mg by mouth twice daily. - ASPIRIN ORAL Take 81 mg by mouth. - ACETAMINOPHEN PAIN RELIEF ORAL Take by mouth. - anastrozole (ARIMIDEX) 1 mg tablet Take 1 mg by mouth once daily. - denosumab (PROLIA) 60 mg/mL Inject 60 mg subcutaneously one time only. - rosuvastatin (CRESTOR) 10 mg tablet Take 10 mg by mouth daily at bedtime. - cyanocobalamin, vitamin B-12, (VITAMIN B-12 ORAL) Take by mouth four times a week. - UBIQUINONE ORAL Take 100 mg by mouth once daily. - tiZANidine (ZANAFLEX) 4 mg tablet Take 1 tablet by mouth twice daily as needed. - chlordiazePOXIDE-clidinium (LIBRAX) 5-2.5 mg per capsule Take 1 tablet by mouth DAILY. NEEDED WHEN PT EATS BEEF PRODUCTS Indications: FOR bEEF PRODUCTS EATEN - clotrimazole-betamethasone (LOTRISONE) cream Apply 1 application to affected area as needed (for rash). as needed for rash - Diclofenac Sodium (VOLTAREN) 1 % gel Apply 1 g to affected area three times daily as needed. - QUININE, BULK, MISC 250 mg as needed. - cholecalciferol, vitamin D3, 50,000 unit tab Take by mouth every Monday. - valsartan (DIOVAN) 160 mg tablet Take 160 mg by mouth twice daily. - amLODIPine (NORVASC) 5 mg tablet Take 5 mg by mouth twice daily. - omeprazole 20 mg capsule Take 20 mg by mouth once daily. - LUTEIN 20 MG CAP Take one(1) tablet daily. - SYNTHROID 150MCG TABLET Take 150 mcg by mouth once daily. 1 tablet daily, and 1/2 tablet on monday Problem List As Of Date 07/11/2024 Noted Resolved BENIGN HYPERTENSION [I10] Hypothyroidism [E03.9] OA (osteoarthritis) [M19.90] PAIN IN LIMB [M79.609] BENIGN BETTIE CEREBR MENINGES [D32.0] 07/17/2007 OA (Osteoarthritis) of Knee [M17.9] 08/19/2009 Endometrial mass [N94.89] 10/05/2012 10/29/2012 Lumbar spondylosis [M47.816] 07/23/2014 DDD (degenerative disc disease), lumbar [M51.36*07/23/2014 GERD (gastroesophageal reflux disease) [K21.9] 12/19/2014 Asthma [J45.909] 12/19/2014 Anemia [D64.9] 12/19/2014 CKD (chronic kidney disease) [N18.9] 12/19/2014 Cervical spondylosis without myelopathy [M47.81*01/06/2015 Neck pain [M54.2] 01/06/2015 Bilateral occipital neuralgia [M54.81] 01/06/2015 Cervical strain [S16.1XXA] 01/06/2015 Non morbid obesity [E66.9] 06/25/2015 H/O total hip arthroplasty [Z96.649] 07/06/2015 Altered gait [R26.9] 08/27/2015 Weakness of right hip [R29.898] 08/27/2015 Chronic pain of left knee [M25.562, G89.29] 10/05/2015 Iron deficiency anemia, unspecified [D50.9] 06/21/2016 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.9] 06/21/2016 Status post knee replacement [Z96.659] 06/27/2016 Weakness of both lower extremities [R29.898] 01/20/2017 Chronic bilateral low back pain without sciatic*01/20/2017 Degenerative disc disease, lumbar [M51.369] 03/15/2017 Lumbar facet joint pain [M54.59] 03/15/2017 Chronic low back pain without sciatica [M54.50,*09/20/2017 Chronic right-sided low back pain without sciat*10/30/2017 Myofascial pain [M79.18] 11/01/2021 Spinal stenosis, lumbar region, without neuroge*11/01/2021 Lumbar radiculopathy [M54.16] 11/01/2021 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 and Increased pain the day after the procedure may occur. Please increase water intake for the next 24 hours as this will help the soreness. If you have any of the following signs or symptoms, please call our office at Fever and/or chills Swelling and/or drainage from injection site New pain that is different than your normal pain (other than soreness at the site of the procedure) Stiff neck Shortness of breath Severe increase in pain Motor dysfunctions, such as difficulty walking, bowel or bladder dysfunction and/or incontinence Headache that is severe, light sensitive or develops when changing positions (positional headache) Nausea and/or vomiting accompanied by headache that started 24-48 hours after the procedure If you have any emergent concerns, please call 911 or go to your local emergency room. Please also contact our office to let us know you will be seeking emergency care and why. Prescriptions ordered this encounter Disp Refills Start End BUPIVACAINE HCL 0.25 % (2.5 MG/ML) I* 07/11/2024 07/11/2024 Route: OTHER Follow-up and Disposition History for Encounter Date Provider Department Center 07/11/2024 [id number] MELÉNDEZ [facility] [place] Encounter Status:Closed by VEENA MELÉNDEZ on 07/11/24 PROGRESS Observed: 07/11/2024 3:13 PM Status: COMPLETED Source: [facility] HNO ID: [id number] Author: TL CORDERO LPN Service: ? Author Type: LICENSED NURSE Type: Progress Notes Filed: 07/11/2024 15:39 Note Text: Review of Systems Constitutional: Negative for activity change, chills, fever and unexpected weight change. Gastrointestinal: Negative for bowel retention or incontinence Genitourinary: Negative for difficulty urinating. Negative for bladder retention or incontinence Musculoskeletal: Positive for arthralgias, back pain, gait problem, joint swelling, myalgias, neck pain and neck stiffness. Neurological: Negative for weakness, numbness and headaches. Psychiatric/Behavioral: Negative for dysphoric mood, sleep disturbance and suicidal ideas. The patient is not nervous/anxious. MRI THORACIC SPINE WO IVCON Observed: 12:55 PM Status: F Source: [facility] * * *Final Report* * * DATE OF EXAM: Jul 11 2024 12:55PM B[facility] 0325 - MRI THORACIC SPINE WO IVCON / PROCEDURE REASON: multiple diagnoses * * * * Physician Interpretation * * * * EXAMINATION: MRI THORACIC SPINE WO IVCON CLINICAL HISTORY: Thoracic spine pain Lumbar radiculopathy TECHNIQUE: Routine thoracic spine MR protocol. MQ: [id number] COMPARISON: Thoracic radiograph 07/14/2022. MRI lumbar spine 01/18/2022. RESULT: Counting reference: Craniocervical and lumbosacral junctions. For the purposes of this report, Assume the first normal thoracic rib is at the T1 level. Localizer images: Mild cervical spondylosis levocurvature of the thoracolumbar spine with leftward apex at L2. Right total hip arthroplasty. T2 hyperintense lesions in the bilateral kidneys, incompletely assessed, likely representing cysts . Right upper pole complex cystic lesion with septations. Small posterior fossa with vermian hypoplasia enlarged inferior/retrocerebellar CSF space. Alignment: Dextro curvature of the thoracic spine with mild apex at T9. Minimal anterolisthesis of C7 on T1. Exaggerated thoracic kyphosis, mild Cord: The visualized cord is within normal limits of signal intensity and morphology. Mild expansion of the central canal with syrinx formation most notably spanning T5-T9 with central canal measuring approximately 2 mm (series 9, image 16 through 43). Bone marrow signal/fracture: No evidence of pathologic marrow infiltration. No evidence of prior fracture. Scattered Schmorl's nodes involving the inferior endplates of T4, T5, T6, T7, T8, the superior endplate of T10 and T11. No acute fracture. Vertebral body heights are otherwise maintained. Partial osseous fusion of T6-T7 anteriorly. Mild degenerative endplate changes at T5-T6. Probable small osseous hemangioma in the T6 vertebral body. Dorsal elements are intact and well aligned. Thoracic paraspinal soft tissues: The paraspinal soft tissues are within normal limits. Canal and foramina: Shallow central disc protrusion at T1-T2 causing minimal ventral thecal sac indentation. The neural foramina are patent at this level. Shallow right paracentral disc protrusion at T3-T4 without significant canal narrowing. Central disc protrusion at T7-T8 causing mild ventral thecal sac indentation. Tiny central disc protrusion at T9-T10 with patent spinal canal. Disc bulge, ligament is and dorsal element hypertrophy with right greater than left facet hypertrophy causing at least mild eccentric right greater than left spinal canal stenosis at T12-L1. IMPRESSION: Mild distention of the central canal most pronounced from T5 through T9, suggesting syrinx. Otherwise thoracic spondylosis without high-grade or critical spinal canal or neural foraminal stenosis as discussed. Anatomic Thoracic/Lumbar Variant: Assume the first normal thoracic rib is at the T1 level. 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 Author Type: Technologist Type: Progress Notes Filed: 07/11/2024 12:48 Note Text: Radiology Service Progress Note PATIENT NAME: Alyce Urrutia DATE OF SERVICE: July 11, 2024 TIME: 12:48 PM PATIENT IDENTITY VERIFICATION COMPLETED USING TWO (2) IDENTIFIERS: Name and Date of confirmed by patient verbally. FALL SCREENING: Has the patient had 2 falls in the last year or 1 fall with injury or currently using an Ambulatory Assistive Device (Walker, Cane, Wheelchair, Crutches, etc.)? No PATIENT GENDER DATA: Assigned female at . status: : No status: NO. PATIENT RELEVANT IMPLANT DATA REVIEWED: Yes PATIENT PRESENTS WITH AN IMPLANTABLE OR ATTACHED MANAGER BANKING: No RADIOLOGY DEPARTMENT: MR; Exam(s) Completed: Spine: Thoracic spine. Lavender Administered: No PERIPHERAL IV DATA: Not applicable SIGNED BY: RT Fabián(R) July 11, 2024 12:48 PM CNPN Observed: 07/11/2024 12:00 AM Status: COMPLETED Source: [facility] Telephone ([email or web address]) ALYCE URRUTIA ([id number]) 1940 F NFR Date Time Provider Department 07/11/24 TODD GARCIA AGSPINE1 During your visit today, we recorded the following information about you: Todd Garcia MD 07/11/2024 9:35 AM Signed MRI thoracic re-ordered, prior order cancelled inadvertently Todd Garcia MD [facility] [place] July 11, 2024 Allergies As of Date: 07/11/2024 Noted Allergy Reaction PREDNISONE 04/26/2012 12 - Shortness of Breath Comments: Pallor, chest pain, palpitations ORAL MEDICATIONS BEEF CONTAINING PRODUCTS 08/26/2014 5 - Intolerance LEVAQUIN (LEVOFLOXACIN) 08/28/2007 14 - Other: See Comments Comments: sores in mouth/joint pain MIRAPEX (PRAMIPEXOLE) 04/26/2012 5 - Intolerance Comments: Doesn't help leg cramps TRAMADOL 12/23/2014 5 - Intolerance Comments: Pt gets jittery VALSARTAN-HYDROCHLOROTHIAZIDE 04/26/2012 14 - Other: See Comments Comments: Worsens nocturnal leg cramps. Patient can take valsartan alone with no issues Date Reviewed: 06/18/2024 Reviewed by: Agustina Borjas LPN - Fully Assessed Primary Visit Diagnosis:Thoracic spine pain [M54.6] Other Visit Diagnosis:Lumbar radiculopathy [M54.16] Order(s):[facility] [[id number]] Order #: [id number] FUTURE Prescriptions as of 07/11/2024 - amoxicillin (AMOXIL) 500 mg capsule Take 4 capsules by mouth as directed. ONE HOUR PRIOR TO DENTAL WORK - letrozole (FEMARA) 2.5 mg tablet Take 1 tablet by mouth once daily. - spironolactone (ALDACTONE) 25 mg tablet - oxybutynin (DITROPAN) 5 mg tablet Take 5 mg by mouth once daily. - atenolol (TENORMIN) 25 mg tablet Take 25 mg by mouth twice daily. - ASPIRIN ORAL Take 81 mg by mouth. - ACETAMINOPHEN PAIN RELIEF ORAL Take by mouth. - anastrozole (ARIMIDEX) 1 mg tablet Take 1 mg by mouth once daily. - denosumab (PROLIA) 60 mg/mL Inject 60 mg subcutaneously one time only. - rosuvastatin (CRESTOR) 10 mg tablet Take 10 mg by mouth daily at bedtime. - cyanocobalamin, vitamin B-12, (VITAMIN B-12 ORAL) Take by mouth four times a week. - UBIQUINONE ORAL Take 100 mg by mouth once daily. - tiZANidine (ZANAFLEX) 4 mg tablet Take 1 tablet by mouth twice daily as needed. - chlordiazePOXIDE-clidinium (LIBRAX) 5-2.5 mg per capsule Take 1 tablet by mouth DAILY. NEEDED WHEN PT EATS BEEF PRODUCTS Indications: FOR bEEF PRODUCTS EATEN - clotrimazole-betamethasone (LOTRISONE) cream Apply 1 application to affected area as needed (for rash). as needed for rash - Diclofenac Sodium (VOLTAREN) 1 % gel Apply 1 g to affected area three times daily as needed. - QUININE, BULK, MISC 250 mg as needed. - cholecalciferol, vitamin D3, 50,000 unit tab Take by mouth every Monday. - valsartan (DIOVAN) 160 mg tablet Take 160 mg by mouth twice daily. - amLODIPine (NORVASC) 5 mg tablet Take 5 mg by mouth twice daily. - omeprazole 20 mg capsule Take 20 mg by mouth once daily. - LUTEIN 20 MG CAP Take one(1) tablet daily. - SYNTHROID 150MCG TABLET Take 150 mcg by mouth once daily. 1 tablet daily, and 1/2 tablet on monday Problem List As Of Date 07/11/2024 Noted Resolved BENIGN HYPERTENSION [I10] Hypothyroidism [E03.9] OA (osteoarthritis) [M19.90] PAIN IN LIMB [M79.609] BENIGN BETTIE CEREBR MENINGES [D32.0] 07/17/2007 OA (Osteoarthritis) of Knee [M17.9] 08/19/2009 Endometrial mass [N94.89] 10/05/2012 10/29/2012 Lumbar spondylosis [M47.816] 07/23/2014 DDD (degenerative disc disease), lumbar [M51.36*07/23/2014 GERD (gastroesophageal reflux disease) [K21.9] 12/19/2014 Asthma [J45.909] 12/19/2014 Anemia [D64.9] 12/19/2014 CKD (chronic kidney disease) [N18.9] 12/19/2014 Cervical spondylosis without myelopathy [M47.81*01/06/2015 Neck pain [M54.2] 01/06/2015 Bilateral occipital neuralgia [M54.81] 01/06/2015 Cervical strain [S16.1XXA] 01/06/2015 Non morbid obesity [E66.9] 06/25/2015 H/O total hip arthroplasty [Z96.649] 07/06/2015 Altered gait [R26.9] 08/27/2015 Weakness of right hip [R29.898] 08/27/2015 Chronic pain of left knee [M25.562, G89.29] 10/05/2015 Iron deficiency anemia, unspecified [D50.9] 06/21/2016 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.9] 06/21/2016 Status post knee replacement [Z96.659] 06/27/2016 Weakness of both lower extremities [R29.898] 01/20/2017 Chronic bilateral low back pain without sciatic*01/20/2017 Degenerative disc disease, lumbar [M51.369] 03/15/2017 Lumbar facet joint pain [M54.59] 03/15/2017 Chronic low back pain without sciatica [M54.50,*09/20/2017 Chronic right-sided low back pain without sciat*10/30/2017 Myofascial pain [M79.18] 11/01/2021 Spinal stenosis, lumbar region, without neuroge*11/01/2021 Lumbar radiculopathy [M54.16] 11/01/2021 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 Author Type: LICENSED NURSE Type: Progress Notes Filed: 06/18/2024 16:23 Note Text: What area of pain would you like to focus on today? LBP - sometimes radiates to RLE What is your pain level in this area from 1-10? 7 Since your last visit, have you had any injections or procedures to treat this pain? 05/23/24 TPI (VEENA) If so, what percent has your pain improved, and for how long did it help? 50% for a few days Have you had any new testing, imaging, or specialist visits related to the pain since your last visit? N Do you have any new significant changes or symptoms related to this pain? N Are you on a blood thinner? ASA If time allows in this 15 minute visit, are there any new complaints apart from the area above that you would like to address? N Review of Systems Constitutional: Negative for activity change, appetite change, chills and fever. Genitourinary: Negative for difficulty urinating. Musculoskeletal: Positive for back pain, gait problem, myalgias, neck pain and neck stiffness. Negative for arthralgias and joint swelling. Neurological: Negative for weakness, numbness and headaches. Psychiatric/Behavioral: Negative for dysphoric mood, sleep disturbance and suicidal ideas. The patient is not nervous/anxious. PROGRESS Observed: 06/17/2024 9:33 AM Status: COMPLETED Source: [facility] HNO ID: [id number] Author: TODD GARCIA MD Service: ? Author Type: Physician Type: Progress Notes Filed: 06/18/2024 16:23 Note Text: [facility] Today's Date: 06/18/2024 Name: Alyce Urrutia : 1940 Purpose: SPRINT consult Chief complaint: low back pain Pertinent Past Medical History: Benign Meningeal Neoplasms, Occipital Neuralgia, HTN, GERD, CKD, Hypothyroidism, Knee OA s/p bilateral TKA, Obesity, s/p right Total Hip Arthroplasty, Pertinent Past Surgeries: TKR, THR Plan at last visit: (Seen on 05/16/2024 by Veena Meléndez CNP) Procedure: TRIGGER POINT INJECTION: Location (muscle groups): bilateral thoracic paraspinal and rhomboid region Medication Injected: 0.25% Bupivacaine # Sessions Requested: 3 Approximate Time Between Sessions (if applicable): 3-4 weeks PURPOSE: To diagnose trigger points as a cause of patient's pain and immobility. To provide therapeutic pain relief to improve range of motion, ADL's and community participation. EXAM FINDINGS: Trigger Point Present (Hyper excitable area of the body, where the application of a stimulus provokes pain to a greater degree than the surrounding area): YES FAILED TREATMENTS: Follow-up: 2 months Depending on response to the above plan, consider: Erector Spinae Injections, MBB/RFA Right L2-3,3-4; Electrodiagnostic Study Interval History: Overall pain and functional disability since last visit: Unchanged New Complaints since last visit: Mila Mead is a 83-year-old female with a history of chronic low back pain, presenting for evaluation of a peripheral nerve stimulator. Alyce reports chronic low back pain, primarily on the right side, that worsens throughout the day and is exacerbated by standing for more than a few minutes. The pain is described as screaming and is associated with spasms, tightness, cramping, and aching. She can only stand for a minute or two before needing to sit down due to the pain. Sitting for a minute provides temporary relief, allowing her to stand and perform a few more tasks before needing to sit again. She experiences no pain when reclining with her feet elevated. Alyce has undergone various treatments for her back pain, including epidural steroid injections, gluteal nerve blocks, erector spinae blocks, and trigger point injections. She has also tried different medications. Despite these treatments, her pain persists. She has not consulted a surgeon about the possibility of spinal fusion surgery due to her age and her mother's unsuccessful experience with the procedure. In addition to her back pain, Alyce reports occasional episodes of intense, electric-like sensations in her neck that radiate to the top of her head. These episodes occur without any known triggers and have been attributed to nerve problems by her primary care provider. She is considering discussing trigger point injections for these sensations with her provider. Alyce denies any major cardiac or pulmonary issues and reports that her other health conditions, including breast cancer and meningioma, have been resolved. She is not currently on any anticoagulants. Current Pain Medications: Neuropathics: NSAIDS: Muscle Relaxants: Zanaflex 4mg Topicals: Voltaren gel Other Prescription or OTC Pain Medications: Opioids (when applicable): Anti-depressants or Mood-Stabilizers: None Anti-Coagulants: None Therapies Attended (Current or Most Recent): Physical Therapy 1 visit, 10/31/2023 10/21/2021 02/09/2023 12/14/2023 AG SPINE COMBINATION Questionnaire GREENLIGHT Completed Date 10/21/2021 Questionnaire Opiod Risk Tool Opiod Risk Tool Opiod Risk Tool Completed Date 10/21/2021 02/09/2023 12/14/2023 Comments 0 No question data found. (All drug screens are appropriate unless indicated otherwise) Notable Events During Course of Treatment: (Obtained on 10/21/2021) Alyce Urrutia is a 81 year old female, who presents having been referred by Self, for evaluation and management of the above-mentioned chief complaint. This has been present for the past five years. The onset of symptoms was not sudden and was without associated trauma. The pain is most severe at night, she has gradual improvement as the day progresses. Treatments prior to initial presentation include the following: Medications (See below), Injections (See below), Modalities (eg. Heat, Ice), Physical Therapy , Acupuncture, Home Exercise Program , and Activity Modification. She has had a She has previously seen a Dr. Mckeon for pain management, last in 2018, who performed lumbar RFA, with minimal relief. At that time, she had primarily axial low back pain. 03/2022 - Discontinue Gabapentin, ineffective Treatment History: PAIN PROCEDURES: DATE PROCEDURE IMPROVEMENT 05/23/2024 TPI 50% 3 days 04/25/2024 TPI 50% 03/28/2024 TPI 50% 11/29/2023 L erector spinae block T5 none 11/09/2023 R erector spinae block T5 none 09/11/2023 B/L RFA L2-L4 100% in that region 07/26/2023 B/L MBNB L2-L4 100% or 6 hrs. 07/10/2023 B/L MBNB L2-4 100% for 4 hrs 04/13/2023 ILESI L1-L2 75%for 1 week 12/19/2022 RFA, Bilat L4-5,5-S1 No relief (positive Diagnostic Response) 12/05/2022 RFA, Bilat T9-10,11-12 No relief (positive Diagnostic Response) 10/10/2022 MBB, Bilat T9-10,11-12 Positive Diagnostic (>80% x > 4 hours) 09/21/2022 MBB, Bilat T9-10,11-12 Positive Diagnostic (>80% x > 4 hours) 05/18/2022 RFA bilateral L4-L5, L5-S1 100% x 4-5 months 04/13/2022 Bilateral MBNB L4-L5, L5-S1 95% on the left and 85% on the right 03/30/2022 Bilateral MBNB L4-L5, L5-S1 95% 01/26/22 RFA R Cluneal Nerve 30% 12/01/2021 Right Cluneal Nerve Blocks Nearly 100% x 8 hours (positive diagnostic) MEDICATIONS Taken TO DATE (for the chief complaint(s)): Membrane Stabilizers: Neurontin (Gabapentin): Discontinued - No Benefit and had side effects NSAIDS: None Muscle Relaxants: Zanaflex (Tizanidine): Beneficial Topicals: None Other Prescription or OTC Pain Medications: Tylenol (Acetaminophen): Beneficial Opioids: None Data Reviewed Today: Allergies: ALLERGIES Allergen Reactions Prednisone Shortness of Breath Pallor, chest pain, palpitations ORAL MEDICATIONS Beef Containing Pro* Intolerance Levaquin [Levofloxa* Other: See Comments sores in mouth/joint pain Mirapex [Pramipexol* Intolerance Doesn't help leg cramps Tramadol Intolerance Pt gets jittery Valsartan-Hydrochlo* Other: See Comments Worsens nocturnal leg cramps. Patient can take valsartan alone with no issues Social History Tobacco Use Smoking status: Former Current packs/day: 1.00 Average packs/day: 1 pack/day for 3.0 years (3.0 ttl pk-yrs) Types: Cigarettes Smokeless tobacco: Former Tobacco comments: QUIT 50 YEARS AGO Vaping Use Vaping status: Never Used Substance Use Topics Alcohol use: Yes Comment: occassional Drug use: No 05/23/2024 06/16/2024 INTAKE PAIN ASSESSMENT Are you having pain associated with your visit today? Yes, Provider notified Yes, Provider notified Pain Scales Verbal (Numeric Rating or Visual Analog Scale) Verbal (Numeric Rating or Visual Analog Scale) Pain Level 7 7 Pain Location Back-Lower Back-Lower Description Aching;Sharp Aching;Cramping;Radiating;Sore;Spasm;Other: See comment Duration Units Years Years Frequency Continuous Continuous Intervention/Comfort measure Medication;Other: See comment Comments nothing helps the pain in recliner with feet raised Compliance: PDMP website checked and validated on 06/18/2024 by Todd Garcia MD All prescriptions have been APPROPRIATELY filled. No suspicious activity was identified. 10/21/2021 02/09/2023 12/14/2023 AG SPINE COMBINATION Questionnaire GREENLIGHT Completed Date 10/21/2021 Questionnaire Opiod Risk Tool Opiod Risk Tool Opiod Risk Tool Completed Date 10/21/2021 02/09/2023 12/14/2023 Comments 0 (All drug screens are appropriate unless indicated otherwise) Risk Assessment: MARCELO-7: 10/21/2021 MARCELO - 7 SCORES Score 0 (0-4) minimal anxiety, (5-9) mild anxiety, (10-14) moderate anxiety, (15-21) severe anxiety PHQ-9: 01/06/2015 09/14/2017 10/21/2021 PHQ-9 Score 1 2 0 (0-4) minimal depression, (5-9) mild depression, (10-14) moderate depression, (15-19) moderately severe depression, (20-27) severe depression Diagnostic Studies: Relevant Imaging: MRI Spine Report MRI LUMBAR SPINE WO IVCON Exam End: 01/18/2022 1:20 PM (Final result) Narrative: * * *Final Report* * * DATE OF EXAM: Jan 18 2022 1:20PM [facility] 0303 - MRI LUMBAR SPINE WO IVCON / PROCEDURE REASON: multiple diagnoses * * * * Physician Interpretation * * * * EXAMINATION: MRI LUMBAR SPINE WO IVCON CLINICAL HISTORY: Spinal stenosis, lumbar region. TECHNIQUE: Routine lumbosacral spine MR protocol without gadolinium. MQ: [id number] COMPARISON: Outside institution lumbar spine MRI 04/13/2016 RESULT: Counting reference: Lumbosacral junction. For the purposes of this report, L4-5 is considered the level of the iliac crest and assume there are 5 lumbar-type vertebrae. Anatomic variant: None. Localizer images: 2.5 cm right upper pole renal cyst appearing slightly complex with intrinsic septations. Tiny left renal cyst. Right hip arthroplasty. Alignment: Levoscoliosis, apex L2. Trace left lateral listhesis of L3 on L4. Bone marrow signal/fracture: No evidence of pathologic marrow infiltration. No evidence of prior fracture. L2 intraosseous hemangioma. Multilevel endplate degenerative changes and multiple levels of moderate disc space narrowing. L4 superior endplate Schmorl's node. Conus: The conus is within normal limits of signal intensity and morphology, terminating at L1. Paraspinal soft tissues: Fatty atrophy of the lower paraspinal musculature. Lower thoracic spine: Visualized lower thoracic canal and foramina are patent. T12-L1: Shallow annular disc bulging flattens the ventral thecal sac without significant spinal canal or foraminal stenosis. L1-L2: Mild spinal canal stenosis secondary to disc bulging and dorsal osteophytic endplate spurring. Moderate right and mild left facet arthrosis. Mild right and no significant left foraminal stenosis. L2-L3: Severe spinal canal stenosis secondary to disc bulging and dorsal osteophytic endplate spurring as well as hypertrophic degenerative facet arthrosis. Severe right and moderate left subarticular recess effacement. Moderate left greater than right foraminal stenosis. Findings are unchanged. L3-L4: Moderate spinal canal stenosis secondary to disc bulging, dorsal osteophytic endplate spurring and hypertrophic degenerative facet arthrosis. Moderate left greater than right subarticular recess effacement. Moderate left and mild to moderate right foraminal stenosis. L4-L5: Moderate spinal canal stenosis secondary to disc bulging, dorsal osteophytic endplate spurring, left greater than right degenerative facet arthrosis. Moderate to severe left and mild to moderate right subarticular recess effacement. Moderate left and mild right foraminal stenosis. L5-S1: Mild spinal canal stenosis secondary to disc bulging. Moderate degenerative facet arthrosis. Mild left and no significant right foraminal stenosis. Sacrum and iliac wings: The visualized sacrum and iliac wings are within normal limits. Impression: IMPRESSION: Lumbar spondylosis and scoliosis without substantial progression from the 04/13/2016 examination. There is again up to severe spinal canal stenosis at L2-L3. Varying degrees of up to moderate foraminal stenosis as detailed. 2.5 cm right upper pole renal cyst with some apparent intrinsic septations. This can be further evaluated with dedicated renal ultrasound. Anatomic Thoracic/Lumbar Variant: None. L4-5 is considered the level of the iliac crest and assume there are 5 lumbar-type vertebrae. 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 There are 12 rib-bearing vertebral bodies. Dextroscoliosis centered at T8/T9. Bones are osteopenic. Vertebral bodies and pedicles are intact. Degenerative disc disease throughout the thoracic spine. Prominent thoracic kyphosis centered at T6. IMPRESSION: MULTILEVEL DEGENERATIVE DISC DISEASE, DEXTROSCOLIOSIS AND KYPHOSIS Electrodiagnostic Study (EMG): None Recent Labs: Creatinine Date Value Ref Range Status 06/28/2016 1.26 0.70 - 1.40 mg/dL Final No results found for: EGFR No results found for: PCGLUCOSE Current Medications, Past Medical History, Past Surgical History, Family History, Social History and Review of Systems: On today's date, noted above, I have confirmed and edited as necessary, the PFSH and ROS obtained by others. Physical Exam: 06/18/24 1349 Pulse: 112 Resp: 17 SpO2: 98% LUMBAR MUSCULOSKELETAL/NEURO EXAM Inspection: - Levoscoliosis Gait: - Antalgic Spine Range of Motion: - Flexion: Limited with pain - Extension: Limited with pain -Rotation: Limited with pain Palpation: - Tenderness: Concordant in the Bilateral lumbar paraspinals - Tenderness: Concordant in the Bilateral lumbar facets - Facet Loading: Right-positive; Left-positive Strength: LEFT RIGHT Hip flexion (L2) 5 5 Knee extension (L3) 5 5 Knee flexion (L4): 5 5 Dorsiflexion (L5) 5 5 Plantarflexion (S1): 5 5 Sensation: - intact to light touch in the L2-S2 Bilateral lower limb dermatomes IMPRESSION: 83 year old female presents with complaint(s) low back pain consistent with stenosis with neurogenic claudication, as well as components of lumbar radiculopathy. She is adamant that she will not consider surgery at her age. # Spinal stenosis of lumbar region with neurogenic claudication (M48.062) # Lumbar radiculopathy (M54.16) # Lumbar spondylosis (M47.816) Chronic lower back pain, primarily right-sided, with significant limitations in standing and walking due to screaming pain and spasms. Pain resolves when sitting or reclining. MRI shows spinal stenosis in multiple locations. Previous treatments include ablations, epidurals, gluteal nerve blocks, erector spinae blocks, and trigger point injections with limited relief. Considering spinal cord stimulator trial for more durable pain relief. - Ordered MRI of the thoracic spine to assess for any impediments to spinal cord stimulator placement. - Ordered psychiatric consult to ensure patient understands the procedure and has realistic expectations. - Educated patient on the spinal cord stimulator trial process, including the two-phase approach: a one-week trial with temporary leads followed by potential permanent implantation if successful. - Discussed risks and benefits of the spinal cord stimulator, including potential for significant pain relief and improved quality of life, as well as limitations and need for future battery replacements. - Patient advised to continue follow-up with Veena next month to maintain ongoing care. - Wendy, the back office copy selector, will contact the patient to schedule the MRI and psychiatric consult. - Patient understands and agrees with the plan. Diagnoses: (M48.062) Spinal stenosis of lumbar region with neurogenic claudication (primary encounter diagnosis) (M54.16) Lumbar radiculopathy (M47.816) Lumbar spondylosis PLAN: Alyce Delvalle Urrutia would benefit from the following to reach personal goals for decreasing pain, improving function and work participation, and/or improving quality of life: Medications: No Changes - Continue Current Medications Procedure: Spinal Cord Stimulator (SCS), Percutaneous TRIAL Lead Placement, under fluoroscopic guidance under fluoroscopic guidance 2 leads, [employer] Chair Needed: SCS TRIAL/IMPLANT - YES Anticoagulant - Hold Needed: N/A (Not currently on Anticoagulants) Anticoagulant - Currently Taking: None Allergies (relevant): None Scheduling -[facility] or [facility] office Studies: MRI thoracic XR lumbar XR thoracic Functional Lutheran: NONE Referrals: Psych for SCS eval Follow-up: as scheduled Compliance and Clinic Policies Reviewed and/or Discussed Today: Patient Instructions We discussed the risks and benefits of a Spinal Cord Stimulator (SCS) System. We discussed the need for a trial before implantation. We discussed that there is a risk of complications, including infection, lead migration, lead fracture, worsening of pain, paralysis. We discussed that this device is unlikely to completely resolve the pain, but a realistic goal would be 50% reduction in pain, 50% reduction in medication usage, and an improvement in activities of daily living. We discussed that the trial relief would most likely be better than the actual implantation due to restricted activities during trial. We discussed obtaining a Psych Eval and a Thoracic MRI for clearance (the MRI to confirm that there is canal diameter that would support introduction of leads). We discussed that the patient may have some limitation in type of MRI they can receive in the future. We discussed that the placement of the SCS does not keep their back issues from potentially worsening, and it is possible for the SCS to lose effectiveness if the back worsens significantly. The patient acknowledged the risks and benefits and decided to proceed with the process. We discussed that if the trial is successful, the patient will likely be referred to my surgical colleague for permanent surgical implant. Attribution: In addition to reviewing the information noted above, some elements copied from my most recent clinical note(s), including the physical exam (completed in entirety today), and the impression and plan sections, have been updated where appropriate. All reflect current medical decision making from today's date. Todd Garcia MD Pain Management [facility] PROCEDURE Observed: 05/23/2024 3:39 PM Status: COMPLETED Source: [facility] HNO ID: [id number] Author: VEENA MELÉNDEZ APRN.CNP Service: ? Author Type: Nurse Practitioner Type: Procedures Filed: 05/23/2024 15:53 Note Text: [facility] Patient Date of : 1940 Today's Date: 05/23/2024 Provider performing procedure: Veena Meléndez APRN.CNP Procedure: bilateral lumbar paraspinal and rhomboid Trigger Point Injection(s) Injectate: A total of 4 cc of 0.25% Bupivacaine Diagnosis (Indication for procedure): Myofacial pain Comments: none HPI: Alyce Urrutia is an 83 year old FEMALE who presents today, in pain, for the procedure noted above. PAST MEDICAL HISTORY Diagnosis Date Abdominal pain, epigastric Abdominal pain, unspecified site Acute gastritis without mention of hemorrhage Anemia, unspecified Asthma Circumscribed scleroderma Diverticulosis of colon (without mention of hemorrhage) Essential hypertension, benign Internal hemorrhoids without mention of complication Irritable bowel syndrome Kidney disease Non morbid obesity 06/25/2015 Osteoarthrosis, unspecified whether generalized or localized, other specified sites Osteoarthritis Other diseases of lung, not elsewhere classified PMH - PAST MEDICAL HISTORY OF leukopenia Pure hypercholesterolemia Snoring Unspecified hypothyroidism PAST SURGICAL HISTORY Procedure Laterality Date ARTHROSCOPY KNEE DIAGNOSTIC W/WO SYNOVIAL BX SPX 01/2004 Arthroscopy, knee-RIGHT ARTHRP ACETBLR/PROX FEM PROSTC AGRFT/ALGRFT Right 07/06/2015 Hip replacement, total ARTHRP KNE CONDYLEANDPLATU MEDIALANDLAT COMPARTMENTS 06/12/2005 Knee replacement, total-right ARTHRP KNE CONDYLEANDPLATU MEDIALANDLAT COMPARTMENTS Left 06/27/2016 Knee replacement, total COLONOSCOPY FLX DX W/COLLJ SPEC WHEN PFRMD 11/28/2007 COLONOSCOPY FLX DX W/COLLJ SPEC WHEN PFRMD 10/06/2014 Colonoscopy DILATION AND CURETTAGE DXAND/THER NONOBSTETRIC 10/10/2012 Dilation AND curettage w/ resection polyp EGD TRANSORAL BIOPSY SINGLE/MULTIPLE 09/26/2006 LEFT HEART CATH,PERCUTANEOUS Right 08/2022 PAST SURGICAL HISTORY OF 04/07/1998 Minimal access right frontal craniotomy with biopsy and gross PAST SURGICAL HISTORY OF spinal injection FAMILY HISTORY Problem Relation Age of Onset Arthritis Mother Arthritis Father None Brother Social History Tobacco Use Smoking status: Former Current packs/day: 1.00 Average packs/day: 1 pack/day for 3.0 years (3.0 ttl pk-yrs) Types: Cigarettes Smokeless tobacco: Former Tobacco comments: QUIT 50 YEARS AGO Vaping Use Vaping status: Never Used Substance Use Topics Alcohol use: Yes Comment: occassional Drug use: No Current Outpatient Medications on File Prior to Visit Medication Sig letrozole (FEMARA) 2.5 mg tablet Take 1 tablet by mouth once daily. amoxicillin (AMOXIL) 500 mg capsule Take 4 capsules by mouth as directed. ONE HOUR PRIOR TO DENTAL WORK spironolactone (ALDACTONE) 25 mg tablet oxybutynin (DITROPAN) 5 mg tablet Take 5 mg by mouth once daily. atenolol (TENORMIN) 25 mg tablet Take 25 mg by mouth twice daily. ASPIRIN ORAL Take 81 mg by mouth. ACETAMINOPHEN PAIN RELIEF ORAL Take by mouth. anastrozole (ARIMIDEX) 1 mg tablet Take 1 mg by mouth once daily. denosumab (PROLIA) 60 mg/mL Inject 60 mg subcutaneously one time only. rosuvastatin (CRESTOR) 10 mg tablet Take 10 mg by mouth daily at bedtime. cyanocobalamin, vitamin B-12, (VITAMIN B-12 ORAL) Take by mouth four times a week. UBIQUINONE ORAL Take 100 mg by mouth once daily. tiZANidine (ZANAFLEX) 4 mg tablet Take 1 tablet by mouth twice daily as needed. chlordiazePOXIDE-clidinium (LIBRAX) 5-2.5 mg per capsule Take 1 tablet by mouth DAILY. NEEDED WHEN PT EATS BEEF PRODUCTS Indications: FOR bEEF PRODUCTS EATEN clotrimazole-betamethasone (LOTRISONE) cream Apply 1 application to affected area as needed (for rash). as needed for rash Diclofenac Sodium (VOLTAREN) 1 % gel Apply 1 g to affected area three times daily as needed. QUININE, BULK, MISC 250 mg as needed. cholecalciferol, vitamin D3, 50,000 unit tab Take by mouth every Monday. valsartan (DIOVAN) 160 mg tablet Take 160 mg by mouth twice daily. amLODIPine (NORVASC) 5 mg tablet Take 5 mg by mouth twice daily. omeprazole 20 mg capsule Take 20 mg by mouth once daily. LUTEIN 20 MG CAP Take one(1) tablet daily. SYNTHROID 150MCG TABLET Take 150 mcg by mouth once daily. 1 tablet daily, and 1/2 tablet on monday No current facility-administered medications on file prior to visit. ALLERGIES Allergen Reactions Prednisone Shortness of Breath Pallor, chest pain, palpitations ORAL MEDICATIONS Beef Containing Pro* Intolerance Levaquin [Levofloxa* Other: See Comments sores in mouth/joint pain Mirapex [Pramipexol* Intolerance Doesn't help leg cramps Tramadol Intolerance Pt gets jittery Valsartan-Hydrochlo* Other: See Comments Worsens nocturnal leg cramps. Patient can take valsartan alone with no issues Data Reviewed: Current Medications, Past Medical History, Past Surgical History, Family History, Social History and Review of Systems: On Today's date, noted in the attribution, I have confirmed and edited as necessary, the PFSH and ROS obtained by others. Objective Exam: Vitals: As per nursing documentation Constitutional: Normal Appearance, Oriented to Time, Place and Person Head: No lacerations, no external signs of trauma Eyes: Conjunctiva clear. No discharge from the eyes Cardiovascular: Appears well-perfused Pulmonary: Non-labored respirations Abdominal: Non-distended Skin: No visible rashes or ecchymosis Psychiatric: Mood appropriate for given condition Neurological: Gross movements are limited by pain, but otherwise unremarkable MSK: trigger points to palpation of the muscle groups listed above Assessment and Plan: -repeat TPIs as needed pending outcome of the TPIs done today Pt will continue with periodic TPI [place] protocol documentation / Pre-Procedure Checklist: Consent: Obtained verbally prior to procedure I had a nice discussion with the patient today about their current pain and the pathology that could be causing it We discussed different treatment options, including risks, benefits and alternatives. We agreed to proceed as previously discussed, or the plan was modified in accordance with the comments noted above Patient identifiers, including name and date of , were confirmed After discussing risks and benefits, reviewing patient's allergy list to ensure all medications being given are tolerated to the best of our known information, the in-office procedure of Trigger Point Injections was performed at the locations noted above. The region(s) noted above were prepped using sterile technique. A 1.5 inch 25 gauge needle was used to multiple areas of muscle spasm using dry needle technique. The medication noted above was injected in equal parts at 10 total site(s) within the region(s) mentioned above. All points elicited local twitch responses which softened after the injection. After careful removal of the needle, there was minimal bleeding. The injection site was covered with appropriate sterile dressing where needed. The patient was noted to have tolerated the procedure well and was discharged after an appropriate period of post-procedure observation. The patient was instructed to contact us if there were any complications. The patient was advised to follow-up with the requesting physician within one to two weeks or as per their requested follow-up plan. Post procedure visit summary with written instructions was offered to the patient. Veena Meléndez APRN.CNP Pain Management [facility] CNOV Observed: 05/23/2024 3:30 PM Status: COMPLETED Source: [facility] Office Visit (SPAGWO) GHADAALYCE ([id number]) 1940 F NFR Date Time Provider Department 05/23/24 3:30 PM VEENA MELÉNDEZ During your visit today, we recorded the following information about you: Pulse Respiration 69/minute 18/minute Farheen Anguiano LPN 05/23/2024 3:53 PM Signed Review of Systems Constitutional: Negative for activity change, chills, fever and unexpected weight change. Genitourinary: Negative for difficulty urinating. Musculoskeletal: Positive for arthralgias, back pain, gait problem, neck pain and neck stiffness. Negative for joint swelling and myalgias. Neurological: Negative for weakness, numbness and headaches. Psychiatric/Behavioral: Negative for dysphoric mood, sleep disturbance and suicidal ideas. The patient is not nervous/anxious. Veena Meléndez APRN.CNP 05/23/2024 3:53 PM Signed [facility] Patient name: Alyce Urrutia Patient Date of : 1940 Today's Date: 05/23/2024 Provider performing procedure: Veena Meléndez APRN.CNP Procedure: bilateral lumbar paraspinal and rhomboid Trigger Point Injection(s) Injectate: A total of 4 cc of 0.25% Bupivacaine Diagnosis (Indication for procedure): Myofacial pain Comments: none HPI: Alyce Urrutia is an 83 year old FEMALE who presents today, in pain, for the procedure noted above. PAST MEDICAL HISTORY Diagnosis Date Abdominal pain, epigastric Abdominal pain, unspecified site Acute gastritis without mention of hemorrhage Anemia, unspecified Asthma Circumscribed scleroderma Diverticulosis of colon (without mention of hemorrhage) Essential hypertension, benign Internal hemorrhoids without mention of complication Irritable bowel syndrome Kidney disease Non morbid obesity 06/25/2015 Osteoarthrosis, unspecified whether generalized or localized, other specified sites Osteoarthritis Other diseases of lung, not elsewhere classified PMH - PAST MEDICAL HISTORY OF leukopenia Pure hypercholesterolemia Snoring Unspecified hypothyroidism PAST SURGICAL HISTORY Procedure Laterality Date ARTHROSCOPY KNEE DIAGNOSTIC W/WO SYNOVIAL BX SPX 01/2004 Arthroscopy, knee-RIGHT ARTHRP ACETBLR/PROX FEM PROSTC AGRFT/ALGRFT Right 07/06/2015 Hip replacement, total ARTHRP KNE CONDYLEANDPLATU MEDIALANDLAT COMPARTMENTS 06/12/2005 Knee replacement, total-right ARTHRP KNE CONDYLEANDPLATU MEDIALANDLAT COMPARTMENTS Left 06/27/2016 Knee replacement, total COLONOSCOPY FLX DX W/COLLJ SPEC WHEN PFRMD 11/28/2007 COLONOSCOPY FLX DX W/COLLJ SPEC WHEN PFRMD 10/06/2014 Colonoscopy DILATION AND CURETTAGE DXAND/THER NONOBSTETRIC 10/10/2012 Dilation AND curettage w/ resection polyp EGD TRANSORAL BIOPSY SINGLE/MULTIPLE 09/26/2006 LEFT HEART CATH,PERCUTANEOUS Right 08/2022 PAST SURGICAL HISTORY OF 04/07/1998 Minimal access right frontal craniotomy with biopsy and gross PAST SURGICAL HISTORY OF spinal injection FAMILY HISTORY Problem Relation Age of Onset Arthritis Mother Arthritis Father None Brother Social History Tobacco Use Smoking status: Former Current packs/day: 1.00 Average packs/day: 1 pack/day for 3.0 years (3.0 ttl pk-yrs) Types: Cigarettes Smokeless tobacco: Former Tobacco comments: QUIT 50 YEARS AGO Vaping Use Vaping status: Never Used Substance Use Topics Alcohol use: Yes Comment: occassional Drug use: No Current Outpatient Medications on File Prior to Visit Medication Sig letrozole (FEMARA) 2.5 mg tablet Take 1 tablet by mouth once daily. amoxicillin (AMOXIL) 500 mg capsule Take 4 capsules by mouth as directed. ONE HOUR PRIOR TO DENTAL WORK spironolactone (ALDACTONE) 25 mg tablet oxybutynin (DITROPAN) 5 mg tablet Take 5 mg by mouth once daily. atenolol (TENORMIN) 25 mg tablet Take 25 mg by mouth twice daily. ASPIRIN ORAL Take 81 mg by mouth. ACETAMINOPHEN PAIN RELIEF ORAL Take by mouth. anastrozole (ARIMIDEX) 1 mg tablet Take 1 mg by mouth once daily. denosumab (PROLIA) 60 mg/mL Inject 60 mg subcutaneously one time only. rosuvastatin (CRESTOR) 10 mg tablet Take 10 mg by mouth daily at bedtime. cyanocobalamin, vitamin B-12, (VITAMIN B-12 ORAL) Take by mouth four times a week. UBIQUINONE ORAL Take 100 mg by mouth once daily. tiZANidine (ZANAFLEX) 4 mg tablet Take 1 tablet by mouth twice daily as needed. chlordiazePOXIDE-clidinium (LIBRAX) 5-2.5 mg per capsule Take 1 tablet by mouth DAILY. NEEDED WHEN PT EATS BEEF PRODUCTS Indications: FOR bEEF PRODUCTS EATEN clotrimazole-betamethasone (LOTRISONE) cream Apply 1 application to affected area as needed (for rash). as needed for rash Diclofenac Sodium (VOLTAREN) 1 % gel Apply 1 g to affected area three times daily as needed. QUININE, BULK, MISC 250 mg as needed. cholecalciferol, vitamin D3, 50,000 unit tab Take by mouth every Monday. valsartan (DIOVAN) 160 mg tablet Take 160 mg by mouth twice daily. amLODIPine (NORVASC) 5 mg tablet Take 5 mg by mouth twice daily. omeprazole 20 mg capsule Take 20 mg by mouth once daily. LUTEIN 20 MG CAP Take one(1) tablet daily. SYNTHROID 150MCG TABLET Take 150 mcg by mouth once daily. 1 tablet daily, and 1/2 tablet on monday No current facility-administered medications on file prior to visit. ALLERGIES Allergen Reactions Prednisone Shortness of Breath Pallor, chest pain, palpitations ORAL MEDICATIONS Beef Containing Pro* Intolerance Levaquin [Levofloxa* Other: See Comments sores in mouth/joint pain Mirapex [Pramipexol* Intolerance Doesn't help leg cramps Tramadol Intolerance Pt gets jittery Valsartan-Hydrochlo* Other: See Comments Worsens nocturnal leg cramps. Patient can take valsartan alone with no issues Data Reviewed: Current Medications, Past Medical History, Past Surgical History, Family History, Social History and Review of Systems: On Today's date, noted in the attribution, I have confirmed and edited as necessary, the PFSH and ROS obtained by others. Objective Exam: Vitals: As per nursing documentation Constitutional: Normal Appearance, Oriented to Time, Place and Person Head: No lacerations, no external signs of trauma Eyes: Conjunctiva clear. No discharge from the eyes Cardiovascular: Appears well-perfused Pulmonary: Non-labored respirations Abdominal: Non-distended Skin: No visible rashes or ecchymosis Psychiatric: Mood appropriate for given condition Neurological: Gross movements are limited by pain, but otherwise unremarkable MSK: trigger points to palpation of the muscle groups listed above Assessment and Plan: -repeat TPIs as needed pending outcome of the TPIs done today Pt will continue with periodic TPI [place] protocol documentation / Pre-Procedure Checklist: Consent: Obtained verbally prior to procedure I had a nice discussion with the patient today about their current pain and the pathology that could be causing it We discussed different treatment options, including risks, benefits and alternatives. We agreed to proceed as previously discussed, or the plan was modified in accordance with the comments noted above Patient identifiers, including name and date of , were confirmed After discussing risks and benefits, reviewing patient's allergy list to ensure all medications being given are tolerated to the best of our known information, the in-office procedure of Trigger Point Injections was performed at the locations noted above. The region(s) noted above were prepped using sterile technique. A 1.5 inch 25 gauge needle was used to multiple areas of muscle spasm using dry needle technique. The medication noted above was injected in equal parts at 10 total site(s) within the region(s) mentioned above. All points elicited local twitch responses which softened after the injection. After careful removal of the needle, there was minimal bleeding. The injection site was covered with appropriate sterile dressing where needed. The patient was noted to have tolerated the procedure well and was discharged after an appropriate period of post-procedure observation. The patient was instructed to contact us if there were any complications. The patient was advised to follow-up with the requesting physician within one to two weeks or as per their requested follow-up plan. Post procedure visit summary with written instructions was offered to the patient. Veena Meléndez APRN.CNP Pain Management [facility] Veena Meléndez APRN.CNP 05/23/2024 3:53 PM Signed Procedure: Other: trigger point injection Post Procedure Instructions: You may resume normal activities the day after the procedure, as tolerated., Pain should gradually subside over the next 2-3 weeks., Apply cold compresses to injection site if needed. and Increased pain the day after the procedure may occur. Please increase water intake for the next 24 hours as this will help the soreness. If you have any of the following signs or symptoms, please call our office at Fever and/or chills Swelling and/or drainage from injection site New pain that is different than your normal pain (other than soreness at the site of the procedure) Stiff neck Shortness of breath Severe increase in pain Motor dysfunctions, such as difficulty walking, bowel or bladder dysfunction and/or incontinence Headache that is severe, light sensitive or develops when changing positions (positional headache) Nausea and/or vomiting accompanied by headache that started 24-48 hours after the procedure If you have any emergent concerns, please call 911 or go to your local emergency room. Please also contact our office to let us know you will be seeking emergency care and why. Referring Provider: VEENA MELÉNDEZ [[id number]] Allergies As of Date: 05/23/2024 Noted Allergy Reaction PREDNISONE 04/26/2012 12 - Shortness of Breath Comments: Pallor, chest pain, palpitations ORAL MEDICATIONS BEEF CONTAINING PRODUCTS 08/26/2014 5 - Intolerance LEVAQUIN (LEVOFLOXACIN) 08/28/2007 14 - Other: See Comments Comments: sores in mouth/joint pain MIRAPEX (PRAMIPEXOLE) 04/26/2012 5 - Intolerance Comments: Doesn't help leg cramps TRAMADOL 12/23/2014 5 - Intolerance Comments: Pt gets jittery VALSARTAN-HYDROCHLOROTHIAZIDE 04/26/2012 14 - Other: See Comments Comments: Worsens nocturnal leg cramps. Patient can take valsartan alone with no issues Date Reviewed: 05/23/2024 Reviewed by: Farheen Anguiano LPN - Fully Assessed Reason for Visit: Established Patient [175] Trigger Point Injection [1062] Primary Visit Diagnosis:Myofascial pain [M79.18] Order(s):TRIGGER POINT INJECTION MULTI 3+ MUSCLE GRP [[id number]] Order #: [id number] [] BUPivacaine HCl 2.5 mg injection (SENSORCAINE)Disp: Rfl: Prescriptions as of 05/23/2024 - letrozole (FEMARA) 2.5 mg tablet Take 1 tablet by mouth once daily. - amoxicillin (AMOXIL) 500 mg capsule Take 4 capsules by mouth as directed. ONE HOUR PRIOR TO DENTAL WORK - spironolactone (ALDACTONE) 25 mg tablet - oxybutynin (DITROPAN) 5 mg tablet Take 5 mg by mouth once daily. - atenolol (TENORMIN) 25 mg tablet Take 25 mg by mouth twice daily. - ASPIRIN ORAL Take 81 mg by mouth. - ACETAMINOPHEN PAIN RELIEF ORAL Take by mouth. - anastrozole (ARIMIDEX) 1 mg tablet Take 1 mg by mouth once daily. - denosumab (PROLIA) 60 mg/mL Inject 60 mg subcutaneously one time only. - rosuvastatin (CRESTOR) 10 mg tablet Take 10 mg by mouth daily at bedtime. - cyanocobalamin, vitamin B-12, (VITAMIN B-12 ORAL) Take by mouth four times a week. - UBIQUINONE ORAL Take 100 mg by mouth once daily. - tiZANidine (ZANAFLEX) 4 mg tablet Take 1 tablet by mouth twice daily as needed. - chlordiazePOXIDE-clidinium (LIBRAX) 5-2.5 mg per capsule Take 1 tablet by mouth DAILY. NEEDED WHEN PT EATS BEEF PRODUCTS Indications: FOR bEEF PRODUCTS EATEN - clotrimazole-betamethasone (LOTRISONE) cream Apply 1 application to affected area as needed (for rash). as needed for rash - Diclofenac Sodium (VOLTAREN) 1 % gel Apply 1 g to affected area three times daily as needed. - QUININE, BULK, MISC 250 mg as needed. - cholecalciferol, vitamin D3, 50,000 unit tab Take by mouth every Monday. - valsartan (DIOVAN) 160 mg tablet Take 160 mg by mouth twice daily. - amLODIPine (NORVASC) 5 mg tablet Take 5 mg by mouth twice daily. - omeprazole 20 mg capsule Take 20 mg by mouth once daily. - LUTEIN 20 MG CAP Take one(1) tablet daily. - SYNTHROID 150MCG TABLET Take 150 mcg by mouth once daily. 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] 07/17/2007 OA (Osteoarthritis) of Knee [M17.9] 08/19/2009 Endometrial mass [N94.89] 10/05/2012 10/29/2012 Lumbar spondylosis [M47.816] 07/23/2014 DDD (degenerative disc disease), lumbar [M51.36*07/23/2014 GERD (gastroesophageal reflux disease) [K21.9] 12/19/2014 Asthma [J45.909] 12/19/2014 Anemia [D64.9] 12/19/2014 CKD (chronic kidney disease) [N18.9] 12/19/2014 Cervical spondylosis without myelopathy [M47.81*01/06/2015 Neck pain [M54.2] 01/06/2015 Bilateral occipital neuralgia [M54.81] 01/06/2015 Cervical strain [S16.1XXA] 01/06/2015 Non morbid obesity [E66.9] 06/25/2015 H/O total hip arthroplasty [Z96.649] 07/06/2015 Altered gait [R26.9] 08/27/2015 Weakness of right hip [R29.898] 08/27/2015 Chronic pain of left knee [M25.562, G89.29] 10/05/2015 Iron deficiency anemia, unspecified [D50.9] 06/21/2016 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.9] 06/21/2016 Status post knee replacement [Z96.659] 06/27/2016 Weakness of both lower extremities [R29.898] 01/20/2017 Chronic bilateral low back pain without sciatic*01/20/2017 Degenerative disc disease, lumbar [M51.369] 03/15/2017 Lumbar facet joint pain [M54.59] 03/15/2017 Chronic low back pain without sciatica [M54.50,*09/20/2017 Chronic right-sided low back pain without sciat*10/30/2017 Myofascial pain [M79.18] 11/01/2021 Spinal stenosis, lumbar region, without neuroge*11/01/2021 Lumbar radiculopathy [M54.16] 11/01/2021 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 and Increased pain the day after the procedure may occur. Please increase water intake for the next 24 hours as this will help the soreness. If you have any of the following signs or symptoms, please call our office at Fever and/or chills Swelling and/or drainage from injection site New pain that is different than your normal pain (other than soreness at the site of the procedure) Stiff neck Shortness of breath Severe increase in pain Motor dysfunctions, such as difficulty walking, bowel or bladder dysfunction and/or incontinence Headache that is severe, light sensitive or develops when changing positions (positional headache) Nausea and/or vomiting accompanied by headache that started 24-48 hours after the procedure If you have any emergent concerns, please call 911 or go to your local emergency room. Please also contact our office to let us know you will be seeking emergency care and why. Prescriptions ordered this encounter Disp Refills Start End BUPIVACAINE HCL 0.25 % (2.5 MG/ML) I* 05/23/2024 05/23/2024 Route: OTHER Follow-up and Disposition History for Encounter Date Provider Department Center 05/23/2024 [id number]-UHESENDVEENA MELÉNDEZ [facility] Encounter Status:Closed by VEENA MELÉNDEZ on 05/23/24 PROGRESS Observed: 05/23/2024 3:27 PM Status: COMPLETED Source: [facility] HNO ID: [id number] Author: FARHEEN ANGUIANO LPN Service: ? Author Type: LICENSED NURSE Type: Progress Notes Filed: 05/23/2024 15:53 Note Text: Review of Systems Constitutional: Negative for activity change, chills, fever and unexpected weight change. Genitourinary: Negative for difficulty urinating. Musculoskeletal: Positive for arthralgias, back pain, gait problem, neck pain and neck stiffness. Negative for joint swelling and myalgias. Neurological: Negative for weakness, numbness and headaches. Psychiatric/Behavioral: Negative for dysphoric mood, sleep disturbance and suicidal ideas. The patient is not nervous/anxious. PROGRESS Observed: 05/16/2024 3:32 PM Status: COMPLETED Source: [facility] HNO ID: [id number] Author: VEENA MELÉNDEZ APRN.ZULEIMA Service: ? Author Type: Nurse Practitioner Type: Progress Notes Filed: 05/16/2024 17:26 Note Text: [facility] Today's Date: 05/16/2024 Last Visit: 02/09/2023 Name: Alyce Urrutia : 1940 Purpose: SPRINT PNS Consult Chief complaint: low back pain Pertinent Past Medical History: Benign Meningeal Neoplasms, Occipital Neuralgia, HTN, GERD, CKD, Hypothyroidism, Knee OA s/p bilateral TKA, Obesity, s/p right Total Hip Arthroplasty, Pertinent Past Surgeries: TKR, THR Plan at last visit: (Seen on 12/14/2023 by Veena Meléndez CNP) IMPRESSION: 83 year old female with significant past medical history for who presents with complaint(s) of axial low back pain, myofascial referred pain into the right torso. Will you will repeat the trigger point injections ordering a series of 3 to see if she continues to get relief. Diagnoses: (M47.816) Lumbar spondylosis (primary encounter diagnosis) (M48.061) Spinal stenosis of lumbar region, unspecified whether neurogenic claudication present (M47.814) Thoracic spondylosis without myelopathy (M79.18) Myofascial pain PLAN: Alyce Urrutia would benefit from the following to reach personal goals for decreasing pain, improving function and work participation, and/or improving quality of life: Medications: No Changes - Continue Current Medications Procedure: TRIGGER POINT INJECTION: Location (muscle groups): bilateral thoracic paraspinal and rhomboid region Medication Injected: 0.25% Bupivacaine # Sessions Requested: 3 Approximate Time Between Sessions (if applicable): 3-4 weeks PURPOSE: To diagnose trigger points as a cause of patient's pain and immobility. To provide therapeutic pain relief to improve range of motion, ADL's and community participation. EXAM FINDINGS: Trigger Point Present (Hyper excitable area of the body, where the application of a stimulus provokes pain to a greater degree than the surrounding area): YES FAILED TREATMENTS: Studies: None Functional Lutheran: NONE Referrals: No additional considerations at present Follow-up: 2 months Depending on response to the above plan, consider: Erector Spinae Injections, MBB/RFA Right L2-3,3-4; Electrodiagnostic Study Interval History: Overall pain and functional disability since last visit: Unchanged New Complaints since last visit: No Patient has had trigger point injections on both 2024 and 04/25/2024. Patient stating that we focused on the right side and she feels better on that side. Patient stating she feels the pain is on the left now. Patient stating that that her pain in the morning when she wakes up she is hunched over she will take a couple Tylenol lay back down when she first gets up and gets out of bed her pain is causing her to not be able to straighten up but as the day goes on she is able to straighten up. Stating that she is unable to do much during the day or her pain will increase. Current Pain Medications: Neuropathics: None NSAIDS: Muscle Relaxants: Topicals: Other Prescription or OTC Pain Medications: Tylenol OTC - partial relief Opioids (when applicable): Date last refilled: Quantity supplied: Quantity remaining: Last taken: Tolerating Medication: N/A Medications helping improve ADL's and Self-care: N/A Current Therapies Attended: No Current Therapies Studies Obtained (when obtained, relevant findings reported below): None Notable Events During Course of Treatment: Initial HPI: (Obtained on 10/21/2021) Alyce Urrutia is a 81 year old female, who presents having been referred by Self, for evaluation and management of the above-mentioned chief complaint. This has been present for the past five years. The onset of symptoms was not sudden and was without associated trauma. The pain is most severe at night, she has gradual improvement as the day progresses. Treatments prior to initial presentation include the following: Medications (See below), Injections (See below), Modalities (eg. Heat, Ice), Physical Therapy , Acupuncture, Home Exercise Program , and Activity Modification. She has had a She has previously seen a Dr. Mckeon for pain management, last in 2018, who performed lumbar RFA, with minimal relief. At that time, she had primarily axial low back pain. 03/2022 - Discontinue Gabapentin, ineffective Data Reviewed: PAIN PROCEDURES: DATE PROCEDURE IMPROVEMENT 04/25/2024 TPI 50% 03/28/2024 TPI 50% 11/29/2023 L erector spinae block T5 none 11/09/2023 R erector spinae block T5 none 09/11/2023 B/L RFA L2-L4 100% in that region 07/26/2023 B/L MBNB L2-L4 100% or 6 hrs. 07/10/2023 B/L MBNB L2-4 100% for 4 hrs 04/13/2023 ILESI L1-L2 75%for 1 week 12/19/2022 RFA, Bilat L4-5,5-S1 No relief (positive Diagnostic Response) 12/05/2022 RFA, Bilat T9-10,11-12 No relief (positive Diagnostic Response) 10/10/2022 MBB, Bilat T9-10,11-12 Positive Diagnostic (>80% x > 4 hours) 09/21/2022 MBB, Bilat T9-10,11-12 Positive Diagnostic (>80% x > 4 hours) 05/18/2022 RFA bilateral L4-L5, L5-S1 100% x 4-5 months 04/13/2022 Bilateral MBNB L4-L5, L5-S1 95% on the left and 85% on the right 03/30/2022 Bilateral MBNB L4-L5, L5-S1 95% 01/26/22 RFA R Cluneal Nerve 30% 12/01/2021 Right Cluneal Nerve Blocks Nearly 100% x 8 hours (positive diagnostic) MEDICATIONS Taken TO DATE (for the chief complaint(s)): Membrane Stabilizers: Neurontin (Gabapentin): Discontinued - No Benefit and had side effects NSAIDS: None Muscle Relaxants: Zanaflex (Tizanidine): Beneficial Topicals: None Other Prescription or OTC Pain Medications: Tylenol (Acetaminophen): Beneficial Opioids: None Current Anti-depressants or Mood-Stabilizers: None Current Anti-Coagulants: None SOCIAL HISTORY No social history on file. Allergies: ALLERGIES Allergen Reactions Prednisone Shortness of Breath Pallor, chest pain, palpitations ORAL MEDICATIONS Beef Containing Pro* Intolerance Levaquin [Levofloxa* Other: See Comments sores in mouth/joint pain Mirapex [Pramipexol* Intolerance Doesn't help leg cramps Tramadol Intolerance Pt gets jittery Valsartan-Hydrochlo* Other: See Comments Worsens nocturnal leg cramps. Patient can take valsartan alone with no issues 04/25/2024 05/16/2024 INTAKE PAIN ASSESSMENT Are you having pain associated with your visit today? Yes, Provider notified Yes, Provider notified Pain Scales Verbal (Numeric Rating or Visual Analog Scale) Verbal (Numeric Rating or Visual Analog Scale) Pain Level 6 6 Pain Location Back-Lower Back-Lower Description Aching;Stabbing Aching;Sharp Duration Units Years Years Frequency Continuous Continuous Intervention/Comfort measure Reposition;Relaxation Medication;Reposition;Relaxation;Cold;Exercise;Heat;Massage;Positioning;Therapeu tic techniques-CPRP Compliance: PDMP website checked and validated on 05/16/2024 by Veena Meléndez APRN.LEAD APPLICATION ARCHITECT All prescriptions have been APPROPRIATELY filled. No suspicious activity was identified. Recent Drug screens: 10/21/2021 02/09/2023 12/14/2023 AG SPINE COMBINATION Questionnaire GREENLIGHT Completed Date 10/21/2021 Questionnaire Opiod Risk Tool Opiod Risk Tool Opiod Risk Tool Completed Date 10/21/2021 02/09/2023 12/14/2023 Comments 0 No question data found. (All drug screens are appropriate unless indicated otherwise) Risk Assessment: MARCELO-7: 10/21/2021 MARCELO - 7 SCORES Score 0 (0-4) minimal anxiety, (5-9) mild anxiety, (10-14) moderate anxiety, (15-21) severe anxiety PHQ-9: 01/06/2015 09/14/2017 10/21/2021 PHQ-9 Score 1 2 0 (0-4) minimal depression, (5-9) mild depression, (10-14) moderate depression, (15-19) moderately severe depression, (20-27) severe depression Diagnostic Studies: Relevant Imaging: MRI Spine Report MRI LUMBAR SPINE WO IVCON Exam End: 01/18/2022 1:20 PM (Final result) Narrative: * * *Final Report* * * DATE OF EXAM: Jan 18 2022 1:20PM [facility] 0303 - MRI LUMBAR SPINE WO IVCON / PROCEDURE REASON: multiple diagnoses * * * * Physician Interpretation * * * * EXAMINATION: MRI LUMBAR SPINE WO IVCON CLINICAL HISTORY: Spinal stenosis, lumbar region. TECHNIQUE: Routine lumbosacral spine MR protocol without gadolinium. MQ: [id number] COMPARISON: Outside institution lumbar spine MRI 04/13/2016 RESULT: Counting reference: Lumbosacral junction. For the purposes of this report, L4-5 is considered the level of the iliac crest and assume there are 5 lumbar-type vertebrae. Anatomic variant: None. Localizer images: 2.5 cm right upper pole renal cyst appearing slightly complex with intrinsic septations. Tiny left renal cyst. Right hip arthroplasty. Alignment: Levoscoliosis, apex L2. Trace left lateral listhesis of L3 on L4. Bone marrow signal/fracture: No evidence of pathologic marrow infiltration. No evidence of prior fracture. L2 intraosseous hemangioma. Multilevel endplate degenerative changes and multiple levels of moderate disc space narrowing. L4 superior endplate Schmorl's node. Conus: The conus is within normal limits of signal intensity and morphology, terminating at L1. Paraspinal soft tissues: Fatty atrophy of the lower paraspinal musculature. Lower thoracic spine: Visualized lower thoracic canal and foramina are patent. T12-L1: Shallow annular disc bulging flattens the ventral thecal sac without significant spinal canal or foraminal stenosis. L1-L2: Mild spinal canal stenosis secondary to disc bulging and dorsal osteophytic endplate spurring. Moderate right and mild left facet arthrosis. Mild right and no significant left foraminal stenosis. L2-L3: Severe spinal canal stenosis secondary to disc bulging and dorsal osteophytic endplate spurring as well as hypertrophic degenerative facet arthrosis. Severe right and moderate left subarticular recess effacement. Moderate left greater than right foraminal stenosis. Findings are unchanged. L3-L4: Moderate spinal canal stenosis secondary to disc bulging, dorsal osteophytic endplate spurring and hypertrophic degenerative facet arthrosis. Moderate left greater than right subarticular recess effacement. Moderate left and mild to moderate right foraminal stenosis. L4-L5: Moderate spinal canal stenosis secondary to disc bulging, dorsal osteophytic endplate spurring, left greater than right degenerative facet arthrosis. Moderate to severe left and mild to moderate right subarticular recess effacement. Moderate left and mild right foraminal stenosis. L5-S1: Mild spinal canal stenosis secondary to disc bulging. Moderate degenerative facet arthrosis. Mild left and no significant right foraminal stenosis. Sacrum and iliac wings: The visualized sacrum and iliac wings are within normal limits. Impression: IMPRESSION: Lumbar spondylosis and scoliosis without substantial progression from the 04/13/2016 examination. There is again up to severe spinal canal stenosis at L2-L3. Varying degrees of up to moderate foraminal stenosis as detailed. 2.5 cm right upper pole renal cyst with some apparent intrinsic septations. This can be further evaluated with dedicated renal ultrasound. Anatomic Thoracic/Lumbar Variant: None. L4-5 is considered the level of the iliac crest and assume there are 5 lumbar-type vertebrae. 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: ADAM Transcribe Date/Time: Jan 18 2022 1:28P Dictated by : ARUN OSULLIVAN DO This examination was interpreted and the report reviewed and electronically signed by: ARUN OSULLIVAN DO on Jan 18 2022 1:35PM EST Electrodiagnostic Study (EMG): None Recent Labs: Creatinine Date Value Ref Range Status 06/28/2016 1.26 0.70 - 1.40 mg/dL Final No results found for: EGFR No results found for: PCGLUCOSE WBC Date Value Ref Range Status 06/29/2016 6.16 3.70 - 11.00 k/uL Final Hemoglobin Date Value Ref Range Status 06/29/2016 9.0 (L) 11.5 - 15.5 g/dL Final Hematocrit Date Value Ref Range Status 06/29/2016 29.1 (L) 36.0 - 46.0 % Final Platelet Count Date Value Ref Range Status 06/29/2016 178 150 - 400 k/uL Final Current Medications, Past Medical History, Past Surgical History, Family History, Social History and Review of Systems: On today's date, noted above, I have confirmed and edited as necessary, the PFSH and ROS obtained by others. Physical Exam: 05/16/24 1525 Pulse: 62 Resp: 14 SpO2: 99% Physical Exam Vitals reviewed. Constitutional: General: She is not in acute distress. Appearance: She is not ill-appearing. HENT: Head: Normocephalic and atraumatic. Eyes: Conjunctiva/sclera: Conjunctivae normal. Cardiovascular: Pulses: Normal pulses. Pulmonary: Effort: Pulmonary effort is normal. No respiratory distress. Musculoskeletal: Arms: Thoracic back: Tenderness present. Decreased range of motion. Lumbar back: No tenderness. Normal range of motion. Comments: Pt is tender to touch bilaterally in area marked. Skin: General: Skin is warm and dry. Neurological: Mental Status: She is alert and oriented to person, place, and time. Psychiatric: Mood and Affect: Mood and affect normal. Behavior: Behavior normal. Behavior is cooperative. IMPRESSION: 83 year old female with significant past medical history for who presents with complaint(s) of axial low back pain, myofascial referred pain into the right torso. Will you will repeat the trigger point injections ordering a series of 3 to see if she continues to get relief.Patient is also scheduled to see Dr. Garcia to discuss the Sprint unit as well. Diagnoses: (M47.814) Thoracic spondylosis without myelopathy (primary encounter diagnosis) (M79.18) Myofascial pain (M47.816) Lumbar spondylosis (M48.061) Spinal stenosis of lumbar region, unspecified whether neurogenic claudication present PLAN: Alyce Urrutia would benefit from the following to reach personal goals for decreasing pain, improving function and work participation, and/or improving quality of life: Medications: No Changes - Continue Current Medications Procedure: TRIGGER POINT INJECTION: Location (muscle groups): bilateral thoracic paraspinal and rhomboid region Medication Injected: 0.25% Bupivacaine # Sessions Requested: 3 Approximate Time Between Sessions (if applicable): 3-4 weeks PURPOSE: To diagnose trigger points as a cause of patient's pain and immobility. To provide therapeutic pain relief to improve range of motion, ADL's and community participation. EXAM FINDINGS: Trigger Point Present (Hyper excitable area of the body, where the application of a stimulus provokes pain to a greater degree than the surrounding area): YES FAILED TREATMENTS: Studies: None Functional Lutheran: NONE Referrals: No additional considerations at present Follow-up: 2 months Depending on response to the above plan, consider: Erector Spinae Injections, MBB/RFA Right L2-3,3-4; Electrodiagnostic Study Patient Education, Compliance and Clinic Policies Reviewed and/or Discussed Today: None Attribution: In addition to reviewing the information noted above, some elements copied from my most recent clinical note(s), including the physical exam (completed in entirety today), and the impression and plan sections, have been updated where appropriate. All reflect current medical decision making from today's date. Veena Meléndez APRN.LEAD APPLICATION ARCHITECT Pain Management [facility] CNOV Observed: 05/16/2024 3:30 PM Status: COMPLETED Source: [facility] Office Visit (SPAGWO) ALYCE URRUTIA ([id number]) 1940 F NFR Date Time Provider Department 05/16/24 3:30 PM VEENA MELÉNDEZ During your visit today, we recorded the following information about you: Pulse Respiration 62/minute 14/minute Jazz Perez LPN 05/16/2024 5:26 PM Signed Review of Systems Constitutional: Positive for activity change. Negative for chills, fever and unexpected weight change. Gastrointestinal: Negative for bowel retention or incontinence Genitourinary: Negative for difficulty urinating. Negative for bladder retention or incontinence Musculoskeletal: Positive for back pain, gait problem, neck pain and neck stiffness. Negative for arthralgias, joint swelling and myalgias. Neurological: Negative for weakness, numbness and headaches. Psychiatric/Behavioral: Negative for dysphoric mood, sleep disturbance and suicidal ideas. The patient is not nervous/anxious. Veena Meléndez APRN.CNP 05/16/2024 5:26 PM Signed [facility] Today's Date: 05/16/2024 Last Visit: 02/09/2023 Name: Alyce Urrutia : 1940 Purpose: SPRINT PNS Consult Chief complaint: low back pain Pertinent Past Medical History: Benign Meningeal Neoplasms, Occipital Neuralgia, HTN, GERD, CKD, Hypothyroidism, Knee OA s/p bilateral TKA, Obesity, s/p right Total Hip Arthroplasty, Pertinent Past Surgeries: TKR, THR Plan at last visit: (Seen on 12/14/2023 by Veena Meléndez CNP) IMPRESSION: 83 year old female with significant past medical history for who presents with complaint(s) of axial low back pain, myofascial referred pain into the right torso. Will you will repeat the trigger point injections ordering a series of 3 to see if she continues to get relief. Diagnoses: (M47.816) Lumbar spondylosis (primary encounter diagnosis) (M48.061) Spinal stenosis of lumbar region, unspecified whether neurogenic claudication present (M47.814) Thoracic spondylosis without myelopathy (M79.18) Myofascial pain PLAN: Alyce Urrutia would benefit from the following to reach personal goals for decreasing pain, improving function and work participation, and/or improving quality of life: Medications: No Changes - Continue Current Medications Procedure: TRIGGER POINT INJECTION: Location (muscle groups): bilateral thoracic paraspinal and rhomboid region Medication Injected: 0.25% Bupivacaine # Sessions Requested: 3 Approximate Time Between Sessions (if applicable): 3-4 weeks PURPOSE: To diagnose trigger points as a cause of patient's pain and immobility. To provide therapeutic pain relief to improve range of motion, ADL's and community participation. EXAM FINDINGS: Trigger Point Present (Hyper excitable area of the body, where the application of a stimulus provokes pain to a greater degree than the surrounding area): YES FAILED TREATMENTS: Studies: None Functional Lutheran: NONE Referrals: No additional considerations at present Follow-up: 2 months Depending on response to the above plan, consider: Erector Spinae Injections, MBB/RFA Right L2-3,3-4; Electrodiagnostic Study - Interval History: Overall pain and functional disability since last visit: Unchanged New Complaints since last visit: No Patient has had trigger point injections on both 2024 and 04/25/2024. Patient stating that we focused on the right side and she feels better on that side. Patient stating she feels the pain is on the left now. Patient stating that that her pain in the morning when she wakes up she is hunched over she will take a couple Tylenol lay back down when she first gets up and gets out of bed her pain is causing her to not be able to straighten up but as the day goes on she is able to straighten up. Stating that she is unable to do much during the day or her pain will increase. Current Pain Medications: Neuropathics: None NSAIDS: Muscle Relaxants: Topicals: Other Prescription or OTC Pain Medications: Tylenol OTC - partial relief Opioids (when applicable): Date last refilled: Quantity supplied: Quantity remaining: Last taken: Tolerating Medication: N/A Medications helping improve ADL's and Self-care: N/A Current Therapies Attended: No Current Therapies Studies Obtained (when obtained, relevant findings reported below): None Notable Events During Course of Treatment: Initial HPI: (Obtained on 10/21/2021) Alyce Urrutia is a 81 year old female, who presents having been referred by Self, for evaluation and management of the above-mentioned chief complaint. This has been present for the past five years. The onset of symptoms was not sudden and was without associated trauma. The pain is most severe at night, she has gradual improvement as the day progresses. Treatments prior to initial presentation include the following: Medications (See below), Injections (See below), Modalities (eg. Heat, Ice), Physical Therapy , Acupuncture, Home Exercise Program , and Activity Modification. She has had a She has previously seen a Dr. Mckeon for pain management, last in 2018, who performed lumbar RFA, with minimal relief. At that time, she had primarily axial low back pain. 03/2022 - Discontinue Gabapentin, ineffective Data Reviewed: PAIN PROCEDURES: DATE PROCEDURE IMPROVEMENT 04/25/2024 TPI 50% 03/28/2024 TPI 50% 11/29/2023 L erector spinae block T5 none 11/09/2023 R erector spinae block T5 none 09/11/2023 B/L RFA L2-L4 100% in that region 07/26/2023 B/L MBNB L2-L4 100% or 6 hrs. 07/10/2023 B/L MBNB L2-4 100% for 4 hrs 04/13/2023 ILESI L1-L2 75%for 1 week 12/19/2022 RFA, Bilat L4-5,5-S1 No relief (positive Diagnostic Response) 12/05/2022 RFA, Bilat T9-10,11-12 No relief (positive Diagnostic Response) 10/10/2022 MBB, Bilat T9-10,11-12 Positive Diagnostic (>80% x > 4 hours) 09/21/2022 MBB, Bilat T9-10,11-12 Positive Diagnostic (>80% x > 4 hours) 05/18/2022 RFA bilateral L4-L5, L5-S1 100% x 4-5 months 04/13/2022 Bilateral MBNB L4-L5, L5-S1 95% on the left and 85% on the right 03/30/2022 Bilateral MBNB L4-L5, L5-S1 95% 01/26/22 RFA R Cluneal Nerve 30% 12/01/2021 Right Cluneal Nerve Blocks Nearly 100% x 8 hours (positive diagnostic) MEDICATIONS Taken TO DATE (for the chief complaint(s)): Membrane Stabilizers: Neurontin (Gabapentin): Discontinued - No Benefit and had side effects NSAIDS: None Muscle Relaxants: Zanaflex (Tizanidine): Beneficial Topicals: None Other Prescription or OTC Pain Medications: Tylenol (Acetaminophen): Beneficial Opioids: None Current Anti-depressants or Mood-Stabilizers: None Current Anti-Coagulants: None SOCIAL HISTORY No social history on file. Allergies: ALLERGIES Allergen Reactions Prednisone Shortness of Breath Pallor, chest pain, palpitations ORAL MEDICATIONS Beef Containing Pro* Intolerance Levaquin [Levofloxa* Other: See Comments sores in mouth/joint pain Mirapex [Pramipexol* Intolerance Doesn't help leg cramps Tramadol Intolerance Pt gets jittery Valsartan-Hydrochlo* Other: See Comments Worsens nocturnal leg cramps. Patient can take valsartan alone with no issues 04/25/2024 05/16/2024 INTAKE PAIN ASSESSMENT Are you having pain associated with your visit today? Yes, Provider notified Yes, Provider notified Pain Scales Verbal (Numeric Rating or Visual Analog Scale) Verbal (Numeric Rating or Visual Analog Scale) Pain Level 6 6 Pain Location Back-Lower Back-Lower Description Aching;Stabbing Aching;Sharp Duration Units Years Years Frequency Continuous Continuous Intervention/Comfort measure Reposition;Relaxation Medication;Reposition;Relaxation;Cold;Exercise;Heat;Massage;Positioning; Therapeutic techniques-CPRP Compliance: PDMP website checked and validated on 05/16/2024 by Veena Meléndez APRN.LEAD APPLICATION ARCHITECT All prescriptions have been APPROPRIATELY filled. No suspicious activity was identified. Recent Drug screens: 10/21/2021 02/09/2023 12/14/2023 AG SPINE COMBINATION Questionnaire GREENLIGHT Completed Date 10/21/2021 Questionnaire Opiod Risk Tool Opiod Risk Tool Opiod Risk Tool Completed Date 10/21/2021 02/09/2023 12/14/2023 Comments 0 No question data found. (All drug screens are appropriate unless indicated otherwise) Risk Assessment: MARCELO-7: 10/21/2021 MARCELO - 7 SCORES Score 0 (0-4) minimal anxiety, (5-9) mild anxiety, (10-14) moderate anxiety, (15-21) severe anxiety PHQ-9: 01/06/2015 09/14/2017 10/21/2021 PHQ-9 Score 1 2 0 (0-4) minimal depression, (5-9) mild depression, (10-14) moderate depression, (15-19) moderately severe depression, (20-27) severe depression Diagnostic Studies: Relevant Imaging: MRI Spine Report MRI LUMBAR SPINE WO IVCON Exam End: 01/18/2022 1:20 PM (Final result) Narrative: * * *Final Report* * * DATE OF EXAM: Jan 18 2022 1:20PM [id number] - MRI LUMBAR SPINE WO IVCON / PROCEDURE REASON: multiple diagnoses * * * * Physician Interpretation * * * * EXAMINATION: MRI LUMBAR SPINE WO IVCON CLINICAL HISTORY: Spinal stenosis, lumbar region. TECHNIQUE: Routine lumbosacral spine MR protocol without gadolinium. MQ: [id number] COMPARISON: Outside institution lumbar spine MRI 04/13/2016 RESULT: Counting reference: Lumbosacral junction. For the purposes of this report, L4-5 is considered the level of the iliac crest and assume there are 5 lumbar-type vertebrae. Anatomic variant: None. Localizer images: 2.5 cm right upper pole renal cyst appearing slightly complex with intrinsic septations. Tiny left renal cyst. Right hip arthroplasty. Alignment: Levoscoliosis, apex L2. Trace left lateral listhesis of L3 on L4. Bone marrow signal/fracture: No evidence of pathologic marrow infiltration. No evidence of prior fracture. L2 intraosseous hemangioma. Multilevel endplate degenerative changes and multiple levels of moderate disc space narrowing. L4 superior endplate Schmorl's node. Conus: The conus is within normal limits of signal intensity and morphology, terminating at L1. Paraspinal soft tissues: Fatty atrophy of the lower paraspinal musculature. Lower thoracic spine: Visualized lower thoracic canal and foramina are patent. T12-L1: Shallow annular disc bulging flattens the ventral thecal sac without significant spinal canal or foraminal stenosis. L1-L2: Mild spinal canal stenosis secondary to disc bulging and dorsal osteophytic endplate spurring. Moderate right and mild left facet arthrosis. Mild right and no significant left foraminal stenosis. L2-L3: Severe spinal canal stenosis secondary to disc bulging and dorsal osteophytic endplate spurring as well as hypertrophic degenerative facet arthrosis. Severe right and moderate left subarticular recess effacement. Moderate left greater than right foraminal stenosis. Findings are unchanged. L3-L4: Moderate spinal canal stenosis secondary to disc bulging, dorsal osteophytic endplate spurring and hypertrophic degenerative facet arthrosis. Moderate left greater than right subarticular recess effacement. Moderate left and mild to moderate right foraminal stenosis. L4-L5: Moderate spinal canal stenosis secondary to disc bulging, dorsal osteophytic endplate spurring, left greater than right degenerative facet arthrosis. Moderate to severe left and mild to moderate right subarticular recess effacement. Moderate left and mild right foraminal stenosis. L5-S1: Mild spinal canal stenosis secondary to disc bulging. Moderate degenerative facet arthrosis. Mild left and no significant right foraminal stenosis. Sacrum and iliac wings: The visualized sacrum and iliac wings are within normal limits. Impression: IMPRESSION: Lumbar spondylosis and scoliosis without substantial progression from the 04/13/2016 examination. There is again up to severe spinal canal stenosis at L2-L3. Varying degrees of up to moderate foraminal stenosis as detailed. 2.5 cm right upper pole renal cyst with some apparent intrinsic septations. This can be further evaluated with dedicated renal ultrasound. Anatomic Thoracic/Lumbar Variant: None. L4-5 is considered the level of the iliac crest and assume there are 5 lumbar-type vertebrae. 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[employer] Transcribe Date/Time: Jan 18 2022 1:28P Dictated by : ARUN OSULLIVAN DO This examination was interpreted and the report reviewed and electronically signed by: ARUN OSULLIVAN DO on Jan 18 2022 1:35PM EST Electrodiagnostic Study (EMG): None Recent Labs: Creatinine Date Value Ref Range Status 06/28/2016 1.26 0.70 - 1.40 mg/dL Final No results found for: EGFR No results found for: PCGLUCOSE WBC Date Value Ref Range Status 06/29/2016 6.16 3.70 - 11.00 k/uL Final Hemoglobin Date Value Ref Range Status 06/29/2016 9.0 (L) 11.5 - 15.5 g/dL Final Hematocrit Date Value Ref Range Status 06/29/2016 29.1 (L) 36.0 - 46.0 % Final Platelet Count Date Value Ref Range Status 06/29/2016 178 150 - 400 k/uL Final Current Medications, Past Medical History, Past Surgical History, Family History, Social History and Review of Systems: On today's date, noted above, I have confirmed and edited as necessary, the PFSH and ROS obtained by others. Physical Exam: 05/16/24 1525 Pulse: 62 Resp: 14 SpO2: 99% Physical Exam Vitals reviewed. Constitutional: General: She is not in acute distress. Appearance: She is not ill-appearing. HENT: Head: Normocephalic and atraumatic. Eyes: Conjunctiva/sclera: Conjunctivae normal. Cardiovascular: Pulses: Normal pulses. Pulmonary: Effort: Pulmonary effort is normal. No respiratory distress. Musculoskeletal: Arms: Thoracic back: Tenderness present. Decreased range of motion. Lumbar back: No tenderness. Normal range of motion. Comments: Pt is tender to touch bilaterally in area marked. Skin: General: Skin is warm and dry. Neurological: Mental Status: She is alert and oriented to person, place, and time. Psychiatric: Mood and Affect: Mood and affect normal. Behavior: Behavior normal. Behavior is cooperative. IMPRESSION: 83 year old female with significant past medical history for who presents with complaint(s) of axial low back pain, myofascial referred pain into the right torso. Will you will repeat the trigger point injections ordering a series of 3 to see if she continues to get relief.Patient is also scheduled to see Dr. Garcia to discuss the Sprint unit as well. Diagnoses: (M47.814) Thoracic spondylosis without myelopathy (primary encounter diagnosis) (M79.18) Myofascial pain (M47.816) Lumbar spondylosis (M48.061) Spinal stenosis of lumbar region, unspecified whether neurogenic claudication present PLAN: Alyce Urrutia would benefit from the following to reach personal goals for decreasing pain, improving function and work participation, and/or improving quality of life: Medications: No Changes - Continue Current Medications Procedure: TRIGGER POINT INJECTION: Location (muscle groups): bilateral thoracic paraspinal and rhomboid region Medication Injected: 0.25% Bupivacaine # Sessions Requested: 3 Approximate Time Between Sessions (if applicable): 3-4 weeks PURPOSE: To diagnose trigger points as a cause of patient's pain and immobility. To provide therapeutic pain relief to improve range of motion, ADL's and community participation. EXAM FINDINGS: Trigger Point Present (Hyper excitable area of the body, where the application of a stimulus provokes pain to a greater degree than the surrounding area): YES FAILED TREATMENTS: Studies: None Functional Lutheran: NONE Referrals: No additional considerations at present Follow-up: 2 months Depending on response to the above plan, consider: Erector Spinae Injections, MBB/RFA Right L2-3,3-4; Electrodiagnostic Study Patient Education, Compliance and Clinic Policies Reviewed and/or Discussed Today: None Attribution: In addition to reviewing the information noted above, some elements copied from my most recent clinical note(s), including the physical exam (completed in entirety today), and the impression and plan sections, have been updated where appropriate. All reflect current medical decision making from today's date. Veena Meléndez APRN.LEAD APPLICATION ARCHITECT Pain Management [facility] Allergies As of Date: 05/16/2024 Noted Allergy Reaction PREDNISONE 04/26/2012 12 - Shortness of Breath Comments: Pallor, chest pain, palpitations ORAL MEDICATIONS BEEF CONTAINING PRODUCTS 08/26/2014 5 - Intolerance LEVAQUIN (LEVOFLOXACIN) 08/28/2007 14 - Other: See Comments Comments: sores in mouth/joint pain MIRAPEX (PRAMIPEXOLE) 04/26/2012 5 - Intolerance Comments: Doesn't help leg cramps TRAMADOL 12/23/2014 5 - Intolerance Comments: Pt gets jittery VALSARTAN-HYDROCHLOROTHIAZIDE 04/26/2012 14 - Other: See Comments Comments: Worsens nocturnal leg cramps. Patient can take valsartan alone with no issues Date Reviewed: 05/16/2024 Reviewed by: Veena Meléndez APRN.LEAD APPLICATION ARCHITECT - Fully Assessed Reason for Visit: Follow Up [171] Cmt: 2 mo fu Back Pain [12] Cmt: Lower - bilateral - left is worse Primary Visit Diagnosis:Thoracic spondylosis without myelopathy [M47.814] Other Visit Diagnoses:Myofascial pain [M79.18] Lumbar spondylosis [M47.816] Spinal stenosis of lumbar region, unspecified whether neurogenic claudication present [M48.061] Order(s):PRE-CERT ORDER (AG) [[id number]] Order #: [id number]: 1 Prescriptions as of 05/16/2024 - letrozole (FEMARA) 2.5 mg tablet Take 1 tablet by mouth once daily. - amoxicillin (AMOXIL) 500 mg capsule Take 4 capsules by mouth as directed. ONE HOUR PRIOR TO DENTAL WORK - spironolactone (ALDACTONE) 25 mg tablet - oxybutynin (DITROPAN) 5 mg tablet Take 5 mg by mouth once daily. - atenolol (TENORMIN) 25 mg tablet Take 25 mg by mouth twice daily. - ASPIRIN ORAL Take 81 mg by mouth. - ACETAMINOPHEN PAIN RELIEF ORAL Take by mouth. - anastrozole (ARIMIDEX) 1 mg tablet Take 1 mg by mouth once daily. - denosumab (PROLIA) 60 mg/mL Inject 60 mg subcutaneously one time only. - rosuvastatin (CRESTOR) 10 mg tablet Take 10 mg by mouth daily at bedtime. - cyanocobalamin, vitamin B-12, (VITAMIN B-12 ORAL) Take by mouth four times a week. - UBIQUINONE ORAL Take 100 mg by mouth once daily. - tiZANidine (ZANAFLEX) 4 mg tablet Take 1 tablet by mouth twice daily as needed. - chlordiazePOXIDE-clidinium (LIBRAX) 5-2.5 mg per capsule Take 1 tablet by mouth DAILY. NEEDED WHEN PT EATS BEEF PRODUCTS Indications: FOR bEEF PRODUCTS EATEN - clotrimazole-betamethasone (LOTRISONE) cream Apply 1 application to affected area as needed (for rash). as needed for rash - Diclofenac Sodium (VOLTAREN) 1 % gel Apply 1 g to affected area three times daily as needed. - QUININE, BULK, MISC 250 mg as needed. - cholecalciferol, vitamin D3, 50,000 unit tab Take by mouth every Monday. - valsartan (DIOVAN) 160 mg tablet Take 160 mg by mouth twice daily. - amLODIPine (NORVASC) 5 mg tablet Take 5 mg by mouth twice daily. - omeprazole 20 mg capsule Take 20 mg by mouth once daily. - LUTEIN 20 MG CAP Take one(1) tablet daily. - SYNTHROID 150MCG TABLET Take 150 mcg by mouth once daily. 1 tablet daily, and 1/2 tablet on monday Problem List As Of Date 05/16/2024 Noted Resolved BENIGN HYPERTENSION [I10] Hypothyroidism [E03.9] OA (osteoarthritis) [M19.90] PAIN IN LIMB [M79.609] BENIGN BETTIE CEREBR MENINGES [D32.0] 07/17/2007 OA (Osteoarthritis) of Knee [M17.9] 08/19/2009 Endometrial mass [N94.89] 10/05/2012 10/29/2012 Lumbar spondylosis [M47.816] 07/23/2014 DDD (degenerative disc disease), lumbar [M51.36*07/23/2014 GERD (gastroesophageal reflux disease) [K21.9] 12/19/2014 Asthma [J45.909] 12/19/2014 Anemia [D64.9] 12/19/2014 CKD (chronic kidney disease) [N18.9] 12/19/2014 Cervical spondylosis without myelopathy [M47.81*01/06/2015 Neck pain [M54.2] 01/06/2015 Bilateral occipital neuralgia [M54.81] 01/06/2015 Cervical strain [S16.1XXA] 01/06/2015 Non morbid obesity [E66.9] 06/25/2015 H/O total hip arthroplasty [Z96.649] 07/06/2015 Altered gait [R26.9] 08/27/2015 Weakness of right hip [R29.898] 08/27/2015 Chronic pain of left knee [M25.562, G89.29] 10/05/2015 Iron deficiency anemia, unspecified [D50.9] 06/21/2016 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.9] 06/21/2016 Status post knee replacement [Z96.659] 06/27/2016 Weakness of both lower extremities [R29.898] 01/20/2017 Chronic bilateral low back pain without sciatic*01/20/2017 Degenerative disc disease, lumbar [M51.369] 03/15/2017 Lumbar facet joint pain [M54.59] 03/15/2017 Chronic low back pain without sciatica [M54.50,*09/20/2017 Chronic right-sided low back pain without sciat*10/30/2017 Myofascial pain [M79.18] 11/01/2021 Spinal stenosis, lumbar region, without neuroge*11/01/2021 Lumbar radiculopathy [M54.16] 11/01/2021 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 Author Type: LICENSED NURSE Type: Progress Notes Filed: 05/16/2024 17:26 Note Text: Review of Systems Constitutional: Positive for activity change. Negative for chills, fever and unexpected weight change. Gastrointestinal: Negative for bowel retention or incontinence Genitourinary: Negative for difficulty urinating. Negative for bladder retention or incontinence Musculoskeletal: Positive for back pain, gait problem, neck pain and neck stiffness. Negative for arthralgias, joint swelling and myalgias. Neurological: Negative for weakness, numbness and headaches. Psychiatric/Behavioral: Negative for dysphoric mood, sleep disturbance and suicidal ideas. The patient is not nervous/anxious. PROCEDURE Observed: 04/25/2024 3:45 PM Status: COMPLETED Source: [facility] HNO ID: [id number] Author: VEENA MELÉNDEZ APRN.LEAD APPLICATION ARCHITECT Service: ? Author Type: Nurse Practitioner Type: Procedures Filed: 04/25/2024 15:59 Note Text: [facility]: [facility]rrutia Patient Date of : 1940 Today's Date: 04/25/2024 Provider performing procedure: Veena Meléndez APRN.LEAD APPLICATION ARCHITECT Procedure: bilateral lumbar rhomboid and paralumbar region Trigger Point Injection(s) Injectate: A total of 4 cc of 0.25% Bupivacaine Diagnosis (Indication for procedure): Myofacial pain Comments: none HPI: Alyce Urrutia is an 83 year old FEMALE who presents today, in pain, for the procedure noted above. PAST MEDICAL HISTORY Diagnosis Date Abdominal pain, epigastric Abdominal pain, unspecified site Acute gastritis without mention of hemorrhage Anemia, unspecified Asthma Circumscribed scleroderma Diverticulosis of colon (without mention of hemorrhage) Essential hypertension, benign Internal hemorrhoids without mention of complication Irritable bowel syndrome Kidney disease Non morbid obesity 06/25/2015 Osteoarthrosis, unspecified whether generalized or localized, other specified sites Osteoarthritis Other diseases of lung, not elsewhere classified PMH - PAST MEDICAL HISTORY OF leukopenia Pure hypercholesterolemia Snoring Unspecified hypothyroidism PAST SURGICAL HISTORY Procedure Laterality Date ARTHROSCOPY KNEE DIAGNOSTIC W/WO SYNOVIAL BX SPX 01/2004 Arthroscopy, knee-RIGHT ARTHRP ACETBLR/PROX FEM PROSTC AGRFT/ALGRFT Right 07/06/2015 Hip replacement, total ARTHRP KNE CONDYLEANDPLATU MEDIALANDLAT COMPARTMENTS 06/12/2005 Knee replacement, total-right ARTHRP KNE CONDYLEANDPLATU MEDIALANDLAT COMPARTMENTS Left 06/27/2016 Knee replacement, total COLONOSCOPY FLX DX W/COLLJ SPEC WHEN PFRMD 11/28/2007 COLONOSCOPY FLX DX W/COLLJ SPEC WHEN PFRMD 10/06/2014 Colonoscopy DILATION AND CURETTAGE DXAND/THER NONOBSTETRIC 10/10/2012 Dilation AND curettage w/ resection polyp EGD TRANSORAL BIOPSY SINGLE/MULTIPLE 09/26/2006 LEFT HEART CATH,PERCUTANEOUS Right 08/2022 PAST SURGICAL HISTORY OF 04/07/1998 Minimal access right frontal craniotomy with biopsy and gross PAST SURGICAL HISTORY OF spinal injection FAMILY HISTORY Problem Relation Age of Onset Arthritis Mother Arthritis Father None Brother Social History Tobacco Use Smoking status: Former Current packs/day: 1.00 Average packs/day: 1 pack/day for 3.0 years (3.0 ttl pk-yrs) Types: Cigarettes Smokeless tobacco: Former Tobacco comments: QUIT 50 YEARS AGO Vaping Use Vaping status: Never Used Substance Use Topics Alcohol use: Yes Comment: occassional Drug use: No Current Outpatient Medications on File Prior to Visit Medication Sig letrozole (FEMARA) 2.5 mg tablet Take 1 tablet by mouth once daily. amoxicillin (AMOXIL) 500 mg capsule Take 4 capsules by mouth as directed. ONE HOUR PRIOR TO DENTAL WORK spironolactone (ALDACTONE) 25 mg tablet oxybutynin (DITROPAN) 5 mg tablet Take 5 mg by mouth once daily. atenolol (TENORMIN) 25 mg tablet Take 25 mg by mouth twice daily. ASPIRIN ORAL Take 81 mg by mouth. ACETAMINOPHEN PAIN RELIEF ORAL Take by mouth. anastrozole (ARIMIDEX) 1 mg tablet Take 1 mg by mouth once daily. denosumab (PROLIA) 60 mg/mL Inject 60 mg subcutaneously one time only. rosuvastatin (CRESTOR) 10 mg tablet Take 10 mg by mouth daily at bedtime. cyanocobalamin, vitamin B-12, (VITAMIN B-12 ORAL) Take by mouth four times a week. UBIQUINONE ORAL Take 100 mg by mouth once daily. tiZANidine (ZANAFLEX) 4 mg tablet Take 1 tablet by mouth twice daily as needed. chlordiazePOXIDE-clidinium (LIBRAX) 5-2.5 mg per capsule Take 1 tablet by mouth DAILY. NEEDED WHEN PT EATS BEEF PRODUCTS Indications: FOR bEEF PRODUCTS EATEN clotrimazole-betamethasone (LOTRISONE) cream Apply 1 application to affected area as needed (for rash). as needed for rash Diclofenac Sodium (VOLTAREN) 1 % gel Apply 1 g to affected area three times daily as needed. QUININE, BULK, MISC 250 mg as needed. cholecalciferol, vitamin D3, 50,000 unit tab Take by mouth every Monday. valsartan (DIOVAN) 160 mg tablet Take 160 mg by mouth twice daily. amLODIPine (NORVASC) 5 mg tablet Take 5 mg by mouth twice daily. omeprazole 20 mg capsule Take 20 mg by mouth once daily. LUTEIN 20 MG CAP Take one(1) tablet daily. SYNTHROID 150MCG TABLET Take 150 mcg by mouth once daily. 1 tablet daily, and 1/2 tablet on monday No current facility-administered medications on file prior to visit. ALLERGIES Allergen Reactions Prednisone Shortness of Breath Pallor, chest pain, palpitations ORAL MEDICATIONS Beef Containing Pro* Intolerance Levaquin [Levofloxa* Other: See Comments sores in mouth/joint pain Mirapex [Pramipexol* Intolerance Doesn't help leg cramps Tramadol Intolerance Pt gets jittery Valsartan-Hydrochlo* Other: See Comments Worsens nocturnal leg cramps. Patient can take valsartan alone with no issues Data Reviewed: Current Medications, Past Medical History, Past Surgical History, Family History, Social History and Review of Systems: On Today's date, noted in the attribution, I have confirmed and edited as necessary, the PFSH and ROS obtained by others. Objective Exam: Vitals: As per nursing documentation Constitutional: Normal Appearance, Oriented to Time, Place and Person Head: No lacerations, no external signs of trauma Eyes: Conjunctiva clear. No discharge from the eyes Cardiovascular: Appears well-perfused Pulmonary: Non-labored respirations Abdominal: Non-distended Skin: No visible rashes or ecchymosis Psychiatric: Mood appropriate for given condition Neurological: Gross movements are limited by pain, but otherwise unremarkable MSK: trigger points to palpation of the muscle groups listed above Assessment and Plan: -repeat TPIs as needed pending outcome of the TPIs done today [place] protocol documentation / Pre-Procedure Checklist: Consent: Obtained verbally prior to procedure I had a nice discussion with the patient today about their current pain and the pathology that could be causing it We discussed different treatment options, including risks, benefits and alternatives. We agreed to proceed as previously discussed, or the plan was modified in accordance with the comments noted above Patient identifiers, including name and date of , were confirmed After discussing risks and benefits, reviewing patient's allergy list to ensure all medications being given are tolerated to the best of our known information, the in-office procedure of Trigger Point Injections was performed at the locations noted above. The region(s) noted above were prepped using sterile technique. A 1.5 inch 25 gauge needle was used to multiple areas of muscle spasm using dry needle technique. The medication noted above was injected in equal parts at 10 total site(s) within the region(s) mentioned above. All points elicited local twitch responses which softened after the injection. After careful removal of the needle, there was minimal bleeding. The injection site was covered with appropriate sterile dressing where needed. The patient was noted to have tolerated the procedure well and was discharged after an appropriate period of post-procedure observation. The patient was instructed to contact us if there were any complications. The patient was advised to follow-up with the requesting physician within one to two weeks or as per their requested follow-up plan. Post procedure visit summary with written instructions was offered to the patient. Veena Meléndez APRN.LEAD APPLICATION ARCHITECT Pain Management [facility] CNOV Observed: 04/25/2024 3:30 PM Status: COMPLETED Source: [facility] Office Visit (SPAGWO) ALYCE URRUTIA ([id number]) 1940 F NFR Date Time Provider Department 04/25/24 3:30 PM VEENA MELÉNDEZ During your visit today, we recorded the following information about you: Pulse Respiration 64/minute 16/minute Eden Durbin MA 04/25/2024 3:59 PM Signed Review of Systems Constitutional: Negative for activity change, chills, fever and unexpected weight change. Gastrointestinal: Negative for bowel retention or incontinence Genitourinary: Negative for difficulty urinating. Negative for bladder retention or incontinence Musculoskeletal: Positive for back pain, gait problem, neck pain and neck stiffness. Negative for arthralgias, joint swelling and myalgias. Neurological: Negative for weakness, numbness and headaches. Psychiatric/Behavioral: Negative for dysphoric mood, sleep disturbance and suicidal ideas. The patient is not nervous/anxious. Veena Meléndez APRN.CNP 04/25/2024 3:59 PM Signed [facility] Patient name: Alyce Urrutia Patient Date of : 1940 Today's Date: 04/25/2024 Provider performing procedure: Veena Meléndez APRN.CNP Procedure: bilateral lumbar rhomboid and paralumbar region Trigger Point Injection(s) Injectate: A total of 4 cc of 0.25% Bupivacaine Diagnosis (Indication for procedure): Myofacial pain Comments: none HPI: Alyce Urrutia is an 83 year old FEMALE who presents today, in pain, for the procedure noted above. PAST MEDICAL HISTORY Diagnosis Date Abdominal pain, epigastric Abdominal pain, unspecified site Acute gastritis without mention of hemorrhage Anemia, unspecified Asthma Circumscribed scleroderma Diverticulosis of colon (without mention of hemorrhage) Essential hypertension, benign Internal hemorrhoids without mention of complication Irritable bowel syndrome Kidney disease Non morbid obesity 06/25/2015 Osteoarthrosis, unspecified whether generalized or localized, other specified sites Osteoarthritis Other diseases of lung, not elsewhere classified PMH - PAST MEDICAL HISTORY OF leukopenia Pure hypercholesterolemia Snoring Unspecified hypothyroidism PAST SURGICAL HISTORY Procedure Laterality Date ARTHROSCOPY KNEE DIAGNOSTIC W/WO SYNOVIAL BX SPX 01/2004 Arthroscopy, knee-RIGHT ARTHRP ACETBLR/PROX FEM PROSTC AGRFT/ALGRFT Right 07/06/2015 Hip replacement, total ARTHRP KNE CONDYLEANDPLATU MEDIALANDLAT COMPARTMENTS 06/12/2005 Knee replacement, total-right ARTHRP KNE CONDYLEANDPLATU MEDIALANDLAT COMPARTMENTS Left 06/27/2016 Knee replacement, total COLONOSCOPY FLX DX W/COLLJ SPEC WHEN PFRMD 11/28/2007 COLONOSCOPY FLX DX W/COLLJ SPEC WHEN PFRMD 10/06/2014 Colonoscopy DILATION AND CURETTAGE DXAND/THER NONOBSTETRIC 10/10/2012 Dilation AND curettage w/ resection polyp EGD TRANSORAL BIOPSY SINGLE/MULTIPLE 09/26/2006 LEFT HEART CATH,PERCUTANEOUS Right 08/2022 PAST SURGICAL HISTORY OF 04/07/1998 Minimal access right frontal craniotomy with biopsy and gross PAST SURGICAL HISTORY OF spinal injection FAMILY HISTORY Problem Relation Age of Onset Arthritis Mother Arthritis Father None Brother Social History Tobacco Use Smoking status: Former Current packs/day: 1.00 Average packs/day: 1 pack/day for 3.0 years (3.0 ttl pk-yrs) Types: Cigarettes Smokeless tobacco: Former Tobacco comments: QUIT 50 YEARS AGO Vaping Use Vaping status: Never Used Substance Use Topics Alcohol use: Yes Comment: occassional Drug use: No Current Outpatient Medications on File Prior to Visit Medication Sig letrozole (FEMARA) 2.5 mg tablet Take 1 tablet by mouth once daily. amoxicillin (AMOXIL) 500 mg capsule Take 4 capsules by mouth as directed. ONE HOUR PRIOR TO DENTAL WORK spironolactone (ALDACTONE) 25 mg tablet oxybutynin (DITROPAN) 5 mg tablet Take 5 mg by mouth once daily. atenolol (TENORMIN) 25 mg tablet Take 25 mg by mouth twice daily. ASPIRIN ORAL Take 81 mg by mouth. ACETAMINOPHEN PAIN RELIEF ORAL Take by mouth. anastrozole (ARIMIDEX) 1 mg tablet Take 1 mg by mouth once daily. denosumab (PROLIA) 60 mg/mL Inject 60 mg subcutaneously one time only. rosuvastatin (CRESTOR) 10 mg tablet Take 10 mg by mouth daily at bedtime. cyanocobalamin, vitamin B-12, (VITAMIN B-12 ORAL) Take by mouth four times a week. UBIQUINONE ORAL Take 100 mg by mouth once daily. tiZANidine (ZANAFLEX) 4 mg tablet Take 1 tablet by mouth twice daily as needed. chlordiazePOXIDE-clidinium (LIBRAX) 5-2.5 mg per capsule Take 1 tablet by mouth DAILY. NEEDED WHEN PT EATS BEEF PRODUCTS Indications: FOR bEEF PRODUCTS EATEN clotrimazole-betamethasone (LOTRISONE) cream Apply 1 application to affected area as needed (for rash). as needed for rash Diclofenac Sodium (VOLTAREN) 1 % gel Apply 1 g to affected area three times daily as needed. QUININE, BULK, MISC 250 mg as needed. cholecalciferol, vitamin D3, 50,000 unit tab Take by mouth every Monday. valsartan (DIOVAN) 160 mg tablet Take 160 mg by mouth twice daily. amLODIPine (NORVASC) 5 mg tablet Take 5 mg by mouth twice daily. omeprazole 20 mg capsule Take 20 mg by mouth once daily. LUTEIN 20 MG CAP Take one(1) tablet daily. SYNTHROID 150MCG TABLET Take 150 mcg by mouth once daily. 1 tablet daily, and 1/2 tablet on monday No current facility-administered medications on file prior to visit. ALLERGIES Allergen Reactions Prednisone Shortness of Breath Pallor, chest pain, palpitations ORAL MEDICATIONS Beef Containing Pro* Intolerance Levaquin [Levofloxa* Other: See Comments sores in mouth/joint pain Mirapex [Pramipexol* Intolerance Doesn't help leg cramps Tramadol Intolerance Pt gets jittery Valsartan-Hydrochlo* Other: See Comments Worsens nocturnal leg cramps. Patient can take valsartan alone with no issues Data Reviewed: Current Medications, Past Medical History, Past Surgical History, Family History, Social History and Review of Systems: On Today's date, noted in the attribution, I have confirmed and edited as necessary, the PFSH and ROS obtained by others. Objective Exam: Vitals: As per nursing documentation Constitutional: Normal Appearance, Oriented to Time, Place and Person Head: No lacerations, no external signs of trauma Eyes: Conjunctiva clear. No discharge from the eyes Cardiovascular: Appears well-perfused Pulmonary: Non-labored respirations Abdominal: Non-distended Skin: No visible rashes or ecchymosis Psychiatric: Mood appropriate for given condition Neurological: Gross movements are limited by pain, but otherwise unremarkable MSK: trigger points to palpation of the muscle groups listed above Assessment and Plan: -repeat TPIs as needed pending outcome of the TPIs done today [place] protocol documentation / Pre-Procedure Checklist: Consent: Obtained verbally prior to procedure I had a nice discussion with the patient today about their current pain and the pathology that could be causing it We discussed different treatment options, including risks, benefits and alternatives. We agreed to proceed as previously discussed, or the plan was modified in accordance with the comments noted above Patient identifiers, including name and date of , were confirmed After discussing risks and benefits, reviewing patient's allergy list to ensure all medications being given are tolerated to the best of our known information, the in-office procedure of Trigger Point Injections was performed at the locations noted above. The region(s) noted above were prepped using sterile technique. A 1.5 inch 25 gauge needle was used to multiple areas of muscle spasm using dry needle technique. The medication noted above was injected in equal parts at 10 total site(s) within the region(s) mentioned above. All points elicited local twitch responses which softened after the injection. After careful removal of the needle, there was minimal bleeding. The injection site was covered with appropriate sterile dressing where needed. The patient was noted to have tolerated the procedure well and was discharged after an appropriate period of post-procedure observation. The patient was instructed to contact us if there were any complications. The patient was advised to follow-up with the requesting physician within one to two weeks or as per their requested follow-up plan. Post procedure visit summary with written instructions was offered to the patient. Veena Meléndez APRN.LEAD APPLICATION ARCHITECT Pain Management [facility] Veena Meléndez APRN.CNP 04/25/2024 3:59 PM Signed Procedure: Other: trigger point injection Post Procedure Instructions: You may resume normal activities the day after the procedure, as tolerated., Pain should gradually subside over the next 2-3 weeks., Apply cold compresses to injection site if needed. and Increased pain the day after the procedure may occur. Please increase water intake for the next 24 hours as this will help the soreness. If you have any of the following signs or symptoms, please call our office at Fever and/or chills Swelling and/or drainage from injection site New pain that is different than your normal pain (other than soreness at the site of the procedure) Stiff neck Shortness of breath Severe increase in pain Motor dysfunctions, such as difficulty walking, bowel or bladder dysfunction and/or incontinence Headache that is severe, light sensitive or develops when changing positions (positional headache) Nausea and/or vomiting accompanied by headache that started 24-48 hours after the procedure If you have any emergent concerns, please call 911 or go to your local emergency room. Please also contact our office to let us know you will be seeking emergency care and why. Referring Provider: VEENA MELÉNDEZ [[id number]] Allergies As of Date: 04/25/2024 Noted Allergy Reaction PREDNISONE 04/26/2012 12 - Shortness of Breath Comments: Pallor, chest pain, palpitations ORAL MEDICATIONS BEEF CONTAINING PRODUCTS 08/26/2014 5 - Intolerance LEVAQUIN (LEVOFLOXACIN) 08/28/2007 14 - Other: See Comments Comments: sores in mouth/joint pain MIRAPEX (PRAMIPEXOLE) 04/26/2012 5 - Intolerance Comments: Doesn't help leg cramps TRAMADOL 12/23/2014 5 - Intolerance Comments: Pt gets jittery VALSARTAN-HYDROCHLOROTHIAZIDE 04/26/2012 14 - Other: See Comments Comments: Worsens nocturnal leg cramps. Patient can take valsartan alone with no issues Date Reviewed: 04/25/2024 Reviewed by: Eden Durbin MA - Fully Assessed Reason for Visit: Trigger Point Injection [1062] Back Pain [12] Cmt: Lower Primary Visit Diagnosis:Myofascial pain [M79.18] Order(s):TRIGGER POINT INJECTION MULTI 3+ MUSCLE GRP [85268HQM] Order #: [id number] [] BUPivacaine HCl 7.5 mg injection (SENSORCAINE)Disp: Rfl: Prescriptions as of 04/25/2024 - letrozole (FEMARA) 2.5 mg tablet Take 1 tablet by mouth once daily. - amoxicillin (AMOXIL) 500 mg capsule Take 4 capsules by mouth as directed. ONE HOUR PRIOR TO DENTAL WORK - spironolactone (ALDACTONE) 25 mg tablet - oxybutynin (DITROPAN) 5 mg tablet Take 5 mg by mouth once daily. - atenolol (TENORMIN) 25 mg tablet Take 25 mg by mouth twice daily. - ASPIRIN ORAL Take 81 mg by mouth. - ACETAMINOPHEN PAIN RELIEF ORAL Take by mouth. - anastrozole (ARIMIDEX) 1 mg tablet Take 1 mg by mouth once daily. - denosumab (PROLIA) 60 mg/mL Inject 60 mg subcutaneously one time only. - rosuvastatin (CRESTOR) 10 mg tablet Take 10 mg by mouth daily at bedtime. - cyanocobalamin, vitamin B-12, (VITAMIN B-12 ORAL) Take by mouth four times a week. - UBIQUINONE ORAL Take 100 mg by mouth once daily. - tiZANidine (ZANAFLEX) 4 mg tablet Take 1 tablet by mouth twice daily as needed. - chlordiazePOXIDE-clidinium (LIBRAX) 5-2.5 mg per capsule Take 1 tablet by mouth DAILY. NEEDED WHEN PT EATS BEEF PRODUCTS Indications: FOR bEEF PRODUCTS EATEN - clotrimazole-betamethasone (LOTRISONE) cream Apply 1 application to affected area as needed (for rash). as needed for rash - Diclofenac Sodium (VOLTAREN) 1 % gel Apply 1 g to affected area three times daily as needed. - QUININE, BULK, MISC 250 mg as needed. - cholecalciferol, vitamin D3, 50,000 unit tab Take by mouth every Monday. - valsartan (DIOVAN) 160 mg tablet Take 160 mg by mouth twice daily. - amLODIPine (NORVASC) 5 mg tablet Take 5 mg by mouth twice daily. - omeprazole 20 mg capsule Take 20 mg by mouth once daily. - LUTEIN 20 MG CAP Take one(1) tablet daily. - SYNTHROID 150MCG TABLET Take 150 mcg by mouth once daily. 1 tablet daily, and 1/2 tablet on monday Problem List As Of Date 04/25/2024 Noted Resolved BENIGN HYPERTENSION [I10] Hypothyroidism [E03.9] OA (osteoarthritis) [M19.90] PAIN IN LIMB [M79.609] BENIGN BETTIE CEREBR MENINGES [D32.0] 07/17/2007 OA (Osteoarthritis) of Knee [M17.9] 08/19/2009 Endometrial mass [N94.89] 10/05/2012 10/29/2012 Lumbar spondylosis [M47.816] 07/23/2014 DDD (degenerative disc disease), lumbar [M51.36*07/23/2014 GERD (gastroesophageal reflux disease) [K21.9] 12/19/2014 Asthma [J45.909] 12/19/2014 Anemia [D64.9] 12/19/2014 CKD (chronic kidney disease) [N18.9] 12/19/2014 Cervical spondylosis without myelopathy [M47.81*01/06/2015 Neck pain [M54.2] 01/06/2015 Bilateral occipital neuralgia [M54.81] 01/06/2015 Cervical strain [S16.1XXA] 01/06/2015 Non morbid obesity [E66.9] 06/25/2015 H/O total hip arthroplasty [Z96.649] 07/06/2015 Altered gait [R26.9] 08/27/2015 Weakness of right hip [R29.898] 08/27/2015 Chronic pain of left knee [M25.562, G89.29] 10/05/2015 Iron deficiency anemia, unspecified [D50.9] 06/21/2016 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.9] 06/21/2016 Status post knee replacement [Z96.659] 06/27/2016 Weakness of both lower extremities [R29.898] 01/20/2017 Chronic bilateral low back pain without sciatic*01/20/2017 Degenerative disc disease, lumbar [M51.369] 03/15/2017 Lumbar facet joint pain [M54.59] 03/15/2017 Chronic low back pain without sciatica [M54.50,*09/20/2017 Chronic right-sided low back pain without sciat*10/30/2017 Myofascial pain [M79.18] 11/01/2021 Spinal stenosis, lumbar region, without neuroge*11/01/2021 Lumbar radiculopathy [M54.16] 11/01/2021 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 and Increased pain the day after the procedure may occur. Please increase water intake for the next 24 hours as this will help the soreness. If you have any of the following signs or symptoms, please call our office at Fever and/or chills Swelling and/or drainage from injection site New pain that is different than your normal pain (other than soreness at the site of the procedure) Stiff neck Shortness of breath Severe increase in pain Motor dysfunctions, such as difficulty walking, bowel or bladder dysfunction and/or incontinence Headache that is severe, light sensitive or develops when changing positions (positional headache) Nausea and/or vomiting accompanied by headache that started 24-48 hours after the procedure If you have any emergent concerns, please call 911 or go to your local emergency room. Please also contact our office to let us know you will be seeking emergency care and why. Prescriptions ordered this encounter Disp Refills Start End BUPIVACAINE HCL 0.25 % (2.5 MG/ML) I* 04/25/2024 04/25/2024 Route: OTHER Follow-up and Disposition History for Encounter Date Provider Department Center 04/25/2024 [id number] MELÉNDEZ Wendy Paul Encounter Status:Closed by VEENA MELÉNDEZ on 04/25/24 PROGRESS Observed: 04/25/2024 3:29 PM Status: COMPLETED Source: [facility] HNO ID: [id number] Author: EDEN DURBIN MA Service: ? Author Type: Bank Compliance Officer Type: Progress Notes Filed: 04/25/2024 15:59 Note Text: Review of Systems Constitutional: Negative for activity change, chills, fever and unexpected weight change. Gastrointestinal: Negative for bowel retention or incontinence Genitourinary: Negative for difficulty urinating. Negative for bladder retention or incontinence Musculoskeletal: Positive for back pain, gait problem, neck pain and neck stiffness. Negative for arthralgias, joint swelling and myalgias. Neurological: Negative for weakness, numbness and headaches. Psychiatric/Behavioral: Negative for dysphoric mood, sleep disturbance and suicidal ideas. The patient is not nervous/anxious. CNOV Observed: 03/28/2024 3:30 PM Status: COMPLETED Source: [facility] Office Visit (SPAGWO) ALYCE URRUTIA ([id number]) 1940 F NFR Date Time Provider Department 03/28/24 3:30 PM VEENA MELÉNDEZ During your visit today, we recorded the following information about you: Pulse Respiration 64/minute 16/minute Eden Durbin MA 03/28/2024 3:40 PM Signed Review of Systems Constitutional: Negative for activity change, chills, fever and unexpected weight change. Gastrointestinal: Negative for bowel retention or incontinence Genitourinary: Negative for difficulty urinating. Negative for bladder retention or incontinence Musculoskeletal: Positive for back pain, gait problem, myalgias, neck pain and neck stiffness. Negative for arthralgias and joint swelling. Neurological: Negative for weakness, numbness and headaches. Psychiatric/Behavioral: Negative for dysphoric mood, sleep disturbance and suicidal ideas. The patient is not nervous/anxious. Veena Meléndez APRN.CNP 03/28/2024 3:40 PM Signed [facility] Patient name: Alyce Urrutia Patient Date of : 1940 Today's Date: 03/28/2024 Provider performing procedure: Veena Meléndez APRN.LEAD APPLICATION ARCHITECT Procedure: right lumbar paraspinal and rhomboid Trigger Point Injection(s) Injectate: A total of 4 7cc of 0.25% Bupivacaine Diagnosis (Indication for procedure): Myofacial pain Comments: none HPI: Alyce Urrutia is an 83 year old FEMALE who presents today, in pain, for the procedure noted above. PAST MEDICAL HISTORY Diagnosis Date Abdominal pain, epigastric Abdominal pain, unspecified site Acute gastritis without mention of hemorrhage Anemia, unspecified Asthma Circumscribed scleroderma Diverticulosis of colon (without mention of hemorrhage) Essential hypertension, benign Internal hemorrhoids without mention of complication Irritable bowel syndrome Kidney disease Non morbid obesity 06/25/2015 Osteoarthrosis, unspecified whether generalized or localized, other specified sites Osteoarthritis Other diseases of lung, not elsewhere classified PMH - PAST MEDICAL HISTORY OF leukopenia Pure hypercholesterolemia Snoring Unspecified hypothyroidism PAST SURGICAL HISTORY Procedure Laterality Date ARTHROSCOPY KNEE DIAGNOSTIC W/WO SYNOVIAL BX SPX 01/2004 Arthroscopy, knee-RIGHT ARTHRP ACETBLR/PROX FEM PROSTC AGRFT/ALGRFT Right 07/06/2015 Hip replacement, total ARTHRP KNE CONDYLEANDPLATU MEDIALANDLAT COMPARTMENTS 06/12/2005 Knee replacement, total-right ARTHRP KNE CONDYLEANDPLATU MEDIALANDLAT COMPARTMENTS Left 06/27/2016 Knee replacement, total COLONOSCOPY FLX DX W/COLLJ SPEC WHEN PFRMD 11/28/2007 COLONOSCOPY FLX DX W/COLLJ SPEC WHEN PFRMD 10/06/2014 Colonoscopy DILATION AND CURETTAGE DXAND/THER NONOBSTETRIC 10/10/2012 Dilation AND curettage w/ resection polyp EGD TRANSORAL BIOPSY SINGLE/MULTIPLE 09/26/2006 LEFT HEART CATH,PERCUTANEOUS Right 08/2022 PAST SURGICAL HISTORY OF 04/07/1998 Minimal access right frontal craniotomy with biopsy and gross PAST SURGICAL HISTORY OF spinal injection FAMILY HISTORY Problem Relation Age of Onset Arthritis Mother Arthritis Father None Brother Social History Tobacco Use Smoking status: Former Current packs/day: 1.00 Average packs/day: 1 pack/day for 3.0 years (3.0 ttl pk-yrs) Types: Cigarettes Smokeless tobacco: Former Tobacco comments: QUIT 50 YEARS AGO Vaping Use Vaping status: Never Used Substance Use Topics Alcohol use: Yes Comment: occassional Drug use: No Current Outpatient Medications on File Prior to Visit Medication Sig letrozole (FEMARA) 2.5 mg tablet Take 1 tablet by mouth once daily. amoxicillin (AMOXIL) 500 mg capsule Take 4 capsules by mouth as directed. ONE HOUR PRIOR TO DENTAL WORK spironolactone (ALDACTONE) 25 mg tablet oxybutynin (DITROPAN) 5 mg tablet Take 5 mg by mouth once daily. atenolol (TENORMIN) 25 mg tablet Take 25 mg by mouth twice daily. ASPIRIN ORAL Take 81 mg by mouth. ACETAMINOPHEN PAIN RELIEF ORAL Take by mouth. anastrozole (ARIMIDEX) 1 mg tablet Take 1 mg by mouth once daily. denosumab (PROLIA) 60 mg/mL Inject 60 mg subcutaneously one time only. rosuvastatin (CRESTOR) 10 mg tablet Take 10 mg by mouth daily at bedtime. cyanocobalamin, vitamin B-12, (VITAMIN B-12 ORAL) Take by mouth four times a week. UBIQUINONE ORAL Take 100 mg by mouth once daily. tiZANidine (ZANAFLEX) 4 mg tablet Take 1 tablet by mouth twice daily as needed. chlordiazePOXIDE-clidinium (LIBRAX) 5-2.5 mg per capsule Take 1 tablet by mouth DAILY. NEEDED WHEN PT EATS BEEF PRODUCTS Indications: FOR bEEF PRODUCTS EATEN clotrimazole-betamethasone (LOTRISONE) cream Apply 1 application to affected area as needed (for rash). as needed for rash Diclofenac Sodium (VOLTAREN) 1 % gel Apply 1 g to affected area three times daily as needed. QUININE, BULK, MISC 250 mg as needed. cholecalciferol, vitamin D3, 50,000 unit tab Take by mouth every Monday. valsartan (DIOVAN) 160 mg tablet Take 160 mg by mouth twice daily. amLODIPine (NORVASC) 5 mg tablet Take 5 mg by mouth twice daily. omeprazole 20 mg capsule Take 20 mg by mouth once daily. LUTEIN 20 MG CAP Take one(1) tablet daily. SYNTHROID 150MCG TABLET Take 150 mcg by mouth once daily. 1 tablet daily, and 1/2 tablet on monday No current facility-administered medications on file prior to visit. ALLERGIES Allergen Reactions Prednisone Shortness of Breath Pallor, chest pain, palpitations ORAL MEDICATIONS Beef Containing Pro* Intolerance Levaquin [Levofloxa* Other: See Comments sores in mouth/joint pain Mirapex [Pramipexol* Intolerance Doesn't help leg cramps Tramadol Intolerance Pt gets jittery Valsartan-Hydrochlo* Other: See Comments Worsens nocturnal leg cramps. Patient can take valsartan alone with no issues Data Reviewed: Current Medications, Past Medical History, Past Surgical History, Family History, Social History and Review of Systems: On Today's date, noted in the attribution, I have confirmed and edited as necessary, the PFSH and ROS obtained by others. Objective Exam: Vitals: As per nursing documentation Constitutional: Normal Appearance, Oriented to Time, Place and Person Head: No lacerations, no external signs of trauma Eyes: Conjunctiva clear. No discharge from the eyes Cardiovascular: Appears well-perfused Pulmonary: Non-labored respirations Abdominal: Non-distended Skin: No visible rashes or ecchymosis Psychiatric: Mood appropriate for given condition Neurological: Gross movements are limited by pain, but otherwise unremarkable MSK: trigger points to palpation of the muscle groups listed above Assessment and Plan: -repeat TPIs as needed pending outcome of the TPIs done today -Pt is scheduled for 2 more TPI sessions [place] protocol documentation / Pre-Procedure Checklist: Consent: Obtained verbally prior to procedure I had a nice discussion with the patient today about their current pain and the pathology that could be causing it We discussed different treatment options, including risks, benefits and alternatives. We agreed to proceed as previously discussed, or the plan was modified in accordance with the comments noted above Patient identifiers, including name and date of , were confirmed After discussing risks and benefits, reviewing patient's allergy list to ensure all medications being given are tolerated to the best of our known information, the in-office procedure of Trigger Point Injections was performed at the locations noted above. The region(s) noted above were prepped using sterile technique. A 1.5 inch 25 gauge needle was used to multiple areas of muscle spasm using dry needle technique. The medication noted above was injected in equal parts at 7 total site(s) within the region(s) mentioned above. All points elicited local twitch responses which softened after the injection. After careful removal of the needle, there was minimal bleeding. The injection site was covered with appropriate sterile dressing where needed. The patient was noted to have tolerated the procedure well and was discharged after an appropriate period of post-procedure observation. The patient was instructed to contact us if there were any complications. The patient was advised to follow-up with the requesting physician within one to two weeks or as per their requested follow-up plan. Post procedure visit summary with written instructions was offered to the patient. Veena Meléndez APRN.ZULEIMA [facility] Veena Meléndez APRN.CNP 03/28/2024 3:40 PM Signed Procedure: Other: trigger point injection Post Procedure Instructions: You may resume normal activities the day after the procedure, as tolerated., Pain should gradually subside over the next 2-3 weeks., Apply cold compresses to injection site if needed. and Increased pain the day after the procedure may occur. Please increase water intake for the next 24 hours as this will help the soreness. If you have any of the following signs or symptoms, please call our office at Fever and/or chills Swelling and/or drainage from injection site New pain that is different than your normal pain (other than soreness at the site of the procedure) Stiff neck Shortness of breath Severe increase in pain Motor dysfunctions, such as difficulty walking, bowel or bladder dysfunction and/or incontinence Headache that is severe, light sensitive or develops when changing positions (positional headache) Nausea and/or vomiting accompanied by headache that started 24-48 hours after the procedure If you have any emergent concerns, please call 911 or go to your local emergency room. Please also contact our office to let us know you will be seeking emergency care and why. Referring Provider: VEENA MELÉNDEZ [[id number]] Allergies As of Date: 03/28/2024 Noted Allergy Reaction PREDNISONE 04/26/2012 12 - Shortness of Breath Comments: Pallor, chest pain, palpitations ORAL MEDICATIONS BEEF CONTAINING PRODUCTS 08/26/2014 5 - Intolerance LEVAQUIN (LEVOFLOXACIN) 08/28/2007 14 - Other: See Comments Comments: sores in mouth/joint pain MIRAPEX (PRAMIPEXOLE) 04/26/2012 5 - Intolerance Comments: Doesn't help leg cramps TRAMADOL 12/23/2014 5 - Intolerance Comments: Pt gets jittery VALSARTAN-HYDROCHLOROTHIAZIDE 04/26/2012 14 - Other: See Comments Comments: Worsens nocturnal leg cramps. Patient can take valsartan alone with no issues Date Reviewed: 03/28/2024 Reviewed by: Veena Meléndez APRN.LEAD APPLICATION ARCHITECT - Fully Assessed Reason for Visit: Trigger Point Injection [1062] Back Pain [12] Primary Visit Diagnosis:Myofascial pain [M79.18] Order(s):[] BUPivacaine HCl 7.5 mg injection (SENSORCAINE)Disp: Rfl: TRIGGER POINT INJECTION MULTI 3+ MUSCLE GRP [[id number]] Order #: [id number] Prescriptions as of 03/28/2024 - letrozole (FEMARA) 2.5 mg tablet Take 1 tablet by mouth once daily. - amoxicillin (AMOXIL) 500 mg capsule Take 4 capsules by mouth as directed. ONE HOUR PRIOR TO DENTAL WORK - spironolactone (ALDACTONE) 25 mg tablet - oxybutynin (DITROPAN) 5 mg tablet Take 5 mg by mouth once daily. - atenolol (TENORMIN) 25 mg tablet Take 25 mg by mouth twice daily. - ASPIRIN ORAL Take 81 mg by mouth. - ACETAMINOPHEN PAIN RELIEF ORAL Take by mouth. - anastrozole (ARIMIDEX) 1 mg tablet Take 1 mg by mouth once daily. - denosumab (PROLIA) 60 mg/mL Inject 60 mg subcutaneously one time only. - rosuvastatin (CRESTOR) 10 mg tablet Take 10 mg by mouth daily at bedtime. - cyanocobalamin, vitamin B-12, (VITAMIN B-12 ORAL) Take by mouth four times a week. - UBIQUINONE ORAL Take 100 mg by mouth once daily. - tiZANidine (ZANAFLEX) 4 mg tablet Take 1 tablet by mouth twice daily as needed. - chlordiazePOXIDE-clidinium (LIBRAX) 5-2.5 mg per capsule Take 1 tablet by mouth DAILY. NEEDED WHEN PT EATS BEEF PRODUCTS Indications: FOR bEEF PRODUCTS EATEN - clotrimazole-betamethasone (LOTRISONE) cream Apply 1 application to affected area as needed (for rash). as needed for rash - Diclofenac Sodium (VOLTAREN) 1 % gel Apply 1 g to affected area three times daily as needed. - QUININE, BULK, MISC 250 mg as needed. - cholecalciferol, vitamin D3, 50,000 unit tab Take by mouth every Monday. - valsartan (DIOVAN) 160 mg tablet Take 160 mg by mouth twice daily. - amLODIPine (NORVASC) 5 mg tablet Take 5 mg by mouth twice daily. - omeprazole 20 mg capsule Take 20 mg by mouth once daily. - LUTEIN 20 MG CAP Take one(1) tablet daily. - SYNTHROID 150MCG TABLET Take 150 mcg by mouth once daily. 1 tablet daily, and 1/2 tablet on monday Problem List As Of Date 03/28/2024 Noted Resolved BENIGN HYPERTENSION [I10] Hypothyroidism [E03.9] OA (osteoarthritis) [M19.90] PAIN IN LIMB [M79.609] BENIGN BETTIE CEREBR MENINGES [D32.0] 07/17/2007 OA (Osteoarthritis) of Knee [M17.9] 08/19/2009 Endometrial mass [N94.89] 10/05/2012 10/29/2012 Lumbar spondylosis [M47.816] 07/23/2014 DDD (degenerative disc disease), lumbar [M51.36*07/23/2014 GERD (gastroesophageal reflux disease) [K21.9] 12/19/2014 Asthma [J45.909] 12/19/2014 Anemia [D64.9] 12/19/2014 CKD (chronic kidney disease) [N18.9] 12/19/2014 Cervical spondylosis without myelopathy [M47.81*01/06/2015 Neck pain [M54.2] 01/06/2015 Bilateral occipital neuralgia [M54.81] 01/06/2015 Cervical strain [S16.1XXA] 01/06/2015 Non morbid obesity [E66.9] 06/25/2015 H/O total hip arthroplasty [Z96.649] 07/06/2015 Altered gait [R26.9] 08/27/2015 Weakness of right hip [R29.898] 08/27/2015 Chronic pain of left knee [M25.562, G89.29] 10/05/2015 Iron deficiency anemia, unspecified [D50.9] 06/21/2016 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.9] 06/21/2016 Status post knee replacement [Z96.659] 06/27/2016 Weakness of both lower extremities [R29.898] 01/20/2017 Chronic bilateral low back pain without sciatic*01/20/2017 Degenerative disc disease, lumbar [M51.369] 03/15/2017 Lumbar facet joint pain [M54.59] 03/15/2017 Chronic low back pain without sciatica [M54.50,*09/20/2017 Chronic right-sided low back pain without sciat*10/30/2017 Myofascial pain [M79.18] 11/01/2021 Spinal stenosis, lumbar region, without neuroge*11/01/2021 Lumbar radiculopathy [M54.16] 11/01/2021 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 and Increased pain the day after the procedure may occur. Please increase water intake for the next 24 hours as this will help the soreness. If you have any of the following signs or symptoms, please call our office at Fever and/or chills Swelling and/or drainage from injection site New pain that is different than your normal pain (other than soreness at the site of the procedure) Stiff neck Shortness of breath Severe increase in pain Motor dysfunctions, such as difficulty walking, bowel or bladder dysfunction and/or incontinence Headache that is severe, light sensitive or develops when changing positions (positional headache) Nausea and/or vomiting accompanied by headache that started 24-48 hours after the procedure If you have any emergent concerns, please call 911 or go to your local emergency room. Please also contact our office to let us know you will be seeking emergency care and why. Prescriptions ordered this encounter Disp Refills Start End BUPIVACAINE HCL 0.25 % (2.5 MG/ML) I* 03/28/2024 03/28/2024 Route: INTRAMUSCULA Follow-up and Disposition History for Encounter Date Provider Department Center 03/28/2024 [id number] MELÉNDEZ Encounter Status:Closed by VEENA MELÉNDEZ on 03/28/24 PROCEDURE Observed: 03/28/2024 3:28 PM Status: COMPLETED Source: [facility] HNO ID: [id number] Author: VEENA MELÉNDEZ APRN.LEAD APPLICATION ARCHITECT Service: ? Author Type: Nurse Practitioner Type: Procedures Filed: 03/28/2024 15:40 Note [facility] Patient Date of : 1940 Today's Date: 03/28/2024 Provider performing procedure: Veena Meléndez APRN.LEAD APPLICATION ARCHITECT Procedure: right lumbar paraspinal and rhomboid Trigger Point Injection(s) Injectate: A total of 4 7cc of 0.25% Bupivacaine Diagnosis (Indication for procedure): Myofacial pain Comments: none HPI: Alyce Urrutia is an 83 year old FEMALE who presents today, in pain, for the procedure noted above. PAST MEDICAL HISTORY Diagnosis Date Abdominal pain, epigastric Abdominal pain, unspecified site Acute gastritis without mention of hemorrhage Anemia, unspecified Asthma Circumscribed scleroderma Diverticulosis of colon (without mention of hemorrhage) Essential hypertension, benign Internal hemorrhoids without mention of complication Irritable bowel syndrome Kidney disease Non morbid obesity 06/25/2015 Osteoarthrosis, unspecified whether generalized or localized, other specified sites Osteoarthritis Other diseases of lung, not elsewhere classified PMH - PAST MEDICAL HISTORY OF leukopenia Pure hypercholesterolemia Snoring Unspecified hypothyroidism PAST SURGICAL HISTORY Procedure Laterality Date ARTHROSCOPY KNEE DIAGNOSTIC W/WO SYNOVIAL BX SPX 01/2004 Arthroscopy, knee-RIGHT ARTHRP ACETBLR/PROX FEM PROSTC AGRFT/ALGRFT Right 07/06/2015 Hip replacement, total ARTHRP KNE CONDYLEANDPLATU MEDIALANDLAT COMPARTMENTS 06/12/2005 Knee replacement, total-right ARTHRP KNE CONDYLEANDPLATU MEDIALANDLAT COMPARTMENTS Left 06/27/2016 Knee replacement, total COLONOSCOPY FLX DX W/COLLJ SPEC WHEN PFRMD 11/28/2007 COLONOSCOPY FLX DX W/COLLJ SPEC WHEN PFRMD 10/06/2014 Colonoscopy DILATION AND CURETTAGE DXAND/THER NONOBSTETRIC 10/10/2012 Dilation AND curettage w/ resection polyp EGD TRANSORAL BIOPSY SINGLE/MULTIPLE 09/26/2006 LEFT HEART CATH,PERCUTANEOUS Right 08/2022 PAST SURGICAL HISTORY OF 04/07/1998 Minimal access right frontal craniotomy with biopsy and gross PAST SURGICAL HISTORY OF spinal injection FAMILY HISTORY Problem Relation Age of Onset Arthritis Mother Arthritis Father None Brother Social History Tobacco Use Smoking status: Former Current packs/day: 1.00 Average packs/day: 1 pack/day for 3.0 years (3.0 ttl pk-yrs) Types: Cigarettes Smokeless tobacco: Former Tobacco comments: QUIT 50 YEARS AGO Vaping Use Vaping status: Never Used Substance Use Topics Alcohol use: Yes Comment: occassional Drug use: No Current Outpatient Medications on File Prior to Visit Medication Sig letrozole (FEMARA) 2.5 mg tablet Take 1 tablet by mouth once daily. amoxicillin (AMOXIL) 500 mg capsule Take 4 capsules by mouth as directed. ONE HOUR PRIOR TO DENTAL WORK spironolactone (ALDACTONE) 25 mg tablet oxybutynin (DITROPAN) 5 mg tablet Take 5 mg by mouth once daily. atenolol (TENORMIN) 25 mg tablet Take 25 mg by mouth twice daily. ASPIRIN ORAL Take 81 mg by mouth. ACETAMINOPHEN PAIN RELIEF ORAL Take by mouth. anastrozole (ARIMIDEX) 1 mg tablet Take 1 mg by mouth once daily. denosumab (PROLIA) 60 mg/mL Inject 60 mg subcutaneously one time only. rosuvastatin (CRESTOR) 10 mg tablet Take 10 mg by mouth daily at bedtime. cyanocobalamin, vitamin B-12, (VITAMIN B-12 ORAL) Take by mouth four times a week. UBIQUINONE ORAL Take 100 mg by mouth once daily. tiZANidine (ZANAFLEX) 4 mg tablet Take 1 tablet by mouth twice daily as needed. chlordiazePOXIDE-clidinium (LIBRAX) 5-2.5 mg per capsule Take 1 tablet by mouth DAILY. NEEDED WHEN PT EATS BEEF PRODUCTS Indications: FOR bEEF PRODUCTS EATEN clotrimazole-betamethasone (LOTRISONE) cream Apply 1 application to affected area as needed (for rash). as needed for rash Diclofenac Sodium (VOLTAREN) 1 % gel Apply 1 g to affected area three times daily as needed. QUININE, BULK, MISC 250 mg as needed. cholecalciferol, vitamin D3, 50,000 unit tab Take by mouth every Monday. valsartan (DIOVAN) 160 mg tablet Take 160 mg by mouth twice daily. amLODIPine (NORVASC) 5 mg tablet Take 5 mg by mouth twice daily. omeprazole 20 mg capsule Take 20 mg by mouth once daily. LUTEIN 20 MG CAP Take one(1) tablet daily. SYNTHROID 150MCG TABLET Take 150 mcg by mouth once daily. 1 tablet daily, and 1/2 tablet on monday No current facility-administered medications on file prior to visit. ALLERGIES Allergen Reactions Prednisone Shortness of Breath Pallor, chest pain, palpitations ORAL MEDICATIONS Beef Containing Pro* Intolerance Levaquin [Levofloxa* Other: See Comments sores in mouth/joint pain Mirapex [Pramipexol* Intolerance Doesn't help leg cramps Tramadol Intolerance Pt gets jittery Valsartan-Hydrochlo* Other: See Comments Worsens nocturnal leg cramps. Patient can take valsartan alone with no issues Data Reviewed: Current Medications, Past Medical History, Past Surgical History, Family History, Social History and Review of Systems: On Today's date, noted in the attribution, I have confirmed and edited as necessary, the PFSH and ROS obtained by others. Objective Exam: Vitals: As per nursing documentation Constitutional: Normal Appearance, Oriented to Time, Place and Person Head: No lacerations, no external signs of trauma Eyes: Conjunctiva clear. No discharge from the eyes Cardiovascular: Appears well-perfused Pulmonary: Non-labored respirations Abdominal: Non-distended Skin: No visible rashes or ecchymosis Psychiatric: Mood appropriate for given condition Neurological: Gross movements are limited by pain, but otherwise unremarkable MSK: trigger points to palpation of the muscle groups listed above Assessment and Plan: -repeat TPIs as needed pending outcome of the TPIs done today -Pt is scheduled for 2 more TPI sessions [place] protocol documentation / Pre-Procedure Checklist: Consent: Obtained verbally prior to procedure I had a nice discussion with the patient today about their current pain and the pathology that could be causing it We discussed different treatment options, including risks, benefits and alternatives. We agreed to proceed as previously discussed, or the plan was modified in accordance with the comments noted above Patient identifiers, including name and date of , were confirmed After discussing risks and benefits, reviewing patient's allergy list to ensure all medications being given are tolerated to the best of our known information, the in-office procedure of Trigger Point Injections was performed at the locations noted above. The region(s) noted above were prepped using sterile technique. A 1.5 inch 25 gauge needle was used to multiple areas of muscle spasm using dry needle technique. The medication noted above was injected in equal parts at 7 total site(s) within the region(s) mentioned above. All points elicited local twitch responses which softened after the injection. After careful removal of the needle, there was minimal bleeding. The injection site was covered with appropriate sterile dressing where needed. The patient was noted to have tolerated the procedure well and was discharged after an appropriate period of post-procedure observation. The patient was instructed to contact us if there were any complications. The patient was advised to follow-up with the requesting physician within one to two weeks or as per their requested follow-up plan. Post procedure visit summary with written instructions was offered to the patient. Veena Meléndez APRN.LEAD APPLICATION ARCHITECT Pain Management [facility] PROGRESS Observed: 03/28/2024 3:18 PM Status: COMPLETED Source: [facility] HNO ID: [id number] Author: EDEN DURBIN MA Service: ? Author Type: Bank Compliance Officer Type: Progress Notes Filed: 03/28/2024 15:40 Note Text: Review of Systems Constitutional: Negative for activity change, chills, fever and unexpected weight change. Gastrointestinal: Negative for bowel retention or incontinence Genitourinary: Negative for difficulty urinating. Negative for bladder retention or incontinence Musculoskeletal: Positive for back pain, gait problem, myalgias, neck pain and neck stiffness. Negative for arthralgias and joint swelling. Neurological: Negative for weakness, numbness and headaches. Psychiatric/Behavioral: Negative for dysphoric mood, sleep disturbance and suicidal ideas. The patient is not nervous/anxious. ZULEIMAN Observed: 03/04/2024 12:00 AM Status: COMPLETED Source: [facility] Telephone ([id number]) ALYCE URRUTIA ([id number]) 1940 F NFR Date Time Provider Department 03/04/24 TODD GARCIA [id number] During your visit today, we recorded the following information about you: Luciano Morrissey 03/04/2024 3:15 PM Signed 03/04- pt called to reschedule appt on 03/22/24 with Rescheduled for 05/31/24 after she is done with her tpi series. Luciano Morrissey Allergies As of Date: 03/04/2024 Noted Allergy Reaction PREDNISONE 04/26/2012 12 - Shortness of Breath Comments: Pallor, chest pain, palpitations ORAL MEDICATIONS BEEF CONTAINING PRODUCTS 08/26/2014 5 - Intolerance LEVAQUIN (LEVOFLOXACIN) 08/28/2007 14 - Other: See Comments Comments: sores in mouth/joint pain MIRAPEX (PRAMIPEXOLE) 04/26/2012 5 - Intolerance Comments: Doesn't help leg cramps TRAMADOL 12/23/2014 5 - Intolerance Comments: Pt gets jittery VALSARTAN-HYDROCHLOROTHIAZIDE 04/26/2012 14 - Other: See Comments Comments: Worsens nocturnal leg cramps. Patient can take valsartan alone with no issues Date Reviewed: 02/29/2024 Reviewed by: Veena Meléndez APRN.LEAD APPLICATION ARCHITECT - Fully Assessed Prescriptions as of 03/04/2024 - letrozole (FEMARA) 2.5 mg tablet Take 1 tablet by mouth once daily. - amoxicillin (AMOXIL) 500 mg capsule Take 4 capsules by mouth as directed. ONE HOUR PRIOR TO DENTAL WORK - spironolactone (ALDACTONE) 25 mg tablet - oxybutynin (DITROPAN) 5 mg tablet Take 5 mg by mouth once daily. - atenolol (TENORMIN) 25 mg tablet Take 25 mg by mouth twice daily. - ASPIRIN ORAL Take 81 mg by mouth. - ACETAMINOPHEN PAIN RELIEF ORAL Take by mouth. - anastrozole (ARIMIDEX) 1 mg tablet Take 1 mg by mouth once daily. - denosumab (PROLIA) 60 mg/mL Inject 60 mg subcutaneously one time only. - rosuvastatin (CRESTOR) 10 mg tablet Take 10 mg by mouth daily at bedtime. - cyanocobalamin, vitamin B-12, (VITAMIN B-12 ORAL) Take by mouth four times a week. - UBIQUINONE ORAL Take 100 mg by mouth once daily. - tiZANidine (ZANAFLEX) 4 mg tablet Take 1 tablet by mouth twice daily as needed. - chlordiazePOXIDE-clidinium (LIBRAX) 5-2.5 mg per capsule Take 1 tablet by mouth DAILY. NEEDED WHEN PT EATS BEEF PRODUCTS Indications: FOR bEEF PRODUCTS EATEN - clotrimazole-betamethasone (LOTRISONE) cream Apply 1 application to affected area as needed (for rash). as needed for rash - Diclofenac Sodium (VOLTAREN) 1 % gel Apply 1 g to affected area three times daily as needed. - QUININE, BULK, MISC 250 mg as needed. - cholecalciferol, vitamin D3, 50,000 unit tab Take by mouth every Monday. - valsartan (DIOVAN) 160 mg tablet Take 160 mg by mouth twice daily. - amLODIPine (NORVASC) 5 mg tablet Take 5 mg by mouth twice daily. - omeprazole 20 mg capsule Take 20 mg by mouth once daily. - LUTEIN 20 MG CAP Take one(1) tablet daily. - SYNTHROID 150MCG TABLET Take 150 mcg by mouth once daily. 1 tablet daily, and 1/2 tablet on monday Problem List As Of Date 03/04/2024 Noted Resolved BENIGN HYPERTENSION [I10] Hypothyroidism [E03.9] OA (osteoarthritis) [M19.90] PAIN IN LIMB [M79.609] BENIGN BETTIE CEREBR MENINGES [D32.0] 07/17/2007 OA (Osteoarthritis) of Knee [M17.9] 08/19/2009 Endometrial mass [N94.89] 10/05/2012 10/29/2012 Lumbar spondylosis [M47.816] 07/23/2014 DDD (degenerative disc disease), lumbar [M51.36*07/23/2014 GERD (gastroesophageal reflux disease) [K21.9] 12/19/2014 Asthma [J45.909] 12/19/2014 Anemia [D64.9] 12/19/2014 CKD (chronic kidney disease) [N18.9] 12/19/2014 Cervical spondylosis without myelopathy [M47.81*01/06/2015 Neck pain [M54.2] 01/06/2015 Bilateral occipital neuralgia [M54.81] 01/06/2015 Cervical strain [S16.1XXA] 01/06/2015 Non morbid obesity [E66.9] 06/25/2015 H/O total hip arthroplasty [Z96.649] 07/06/2015 Altered gait [R26.9] 08/27/2015 Weakness of right hip [R29.898] 08/27/2015 Chronic pain of left knee [M25.562, G89.29] 10/05/2015 Iron deficiency anemia, unspecified [D50.9] 06/21/2016 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.9] 06/21/2016 Status post knee replacement [Z96.659] 06/27/2016 Weakness of both lower extremities [R29.898] 01/20/2017 Chronic bilateral low back pain without sciatic*01/20/2017 Degenerative disc disease, lumbar [M51.369] 03/15/2017 Lumbar facet joint pain [M54.59] 03/15/2017 Chronic low back pain without sciatica [M54.50,*09/20/2017 Chronic right-sided low back pain without sciat*10/30/2017 Myofascial pain [M79.18] 11/01/2021 Spinal stenosis, lumbar region, without neuroge*11/01/2021 Lumbar radiculopathy [M54.16] 11/01/2021 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 Author Type: Nurse Practitioner Type: Progress Notes Filed: 02/29/2024 16:55 Note Text: [facility] Today's Date: 02/29/2024 Last Visit: 02/09/2023 Name: Alyce Urrutia : 1940 Purpose: SPRINT PNS Consult Chief complaint: low back pain Pertinent Past Medical History: Benign Meningeal Neoplasms, Occipital Neuralgia, HTN, GERD, CKD, Hypothyroidism, Knee OA s/p bilateral TKA, Obesity, s/p right Total Hip Arthroplasty, Pertinent Past Surgeries: TKR, THR Plan at last visit: (Seen on 12/14/2023 by Veena Meléndez CNP) PLAN: Alyce Delvalle Urrutia would benefit from the following to reach personal goals for decreasing pain, improving function and work participation, and/or improving quality of life: Medications: No Changes - Continue Current Medications Procedure: TRIGGER POINT INJECTION: Location (muscle groups): bilateral thoracic paraspinal and rhomboid region Medication Injected: 0.25% Bupivacaine # Sessions Requested: 1 Approximate Time Between Sessions (if applicable): 3-4 weeks PURPOSE: To diagnose trigger points as a cause of patient's pain and immobility. To provide therapeutic pain relief to improve range of motion, ADL's and community participation. EXAM FINDINGS: Trigger Point Present (Hyper excitable area of the body, where the application of a stimulus provokes pain to a greater degree than the surrounding area): YES FAILED TREATMENTS: Studies: None Functional Lutheran: NONE Referrals: No additional considerations at present Follow-up: [address] Chakraborty, Dr Garcia or Dr Chicas to discuss the SPRINT Depending on response to the above plan, consider: Erector Spinae Injections, MBB/RFA Right L2-3,3-4; Electrodiagnostic Study Interval History: Overall pain and functional disability since last visit: Unchanged New Complaints since last visit: No Patient had trigger point injections done 02/01/2024 patient reporting 75% relief. Patient states it did not last more than 3 weeks but it felt good. Patient states her pain level is still not back to what it was prior to the injections. Patient would like to repeat trigger point injections as she felt this is the first thing that has helped with the pain. Current Pain Medications: Neuropathics: None NSAIDS: Muscle Relaxants: Topicals: Other Prescription or OTC Pain Medications: Tylenol OTC - partial relief Opioids (when applicable): Date last refilled: Quantity supplied: Quantity remaining: Last taken: Tolerating Medication: N/A Medications helping improve ADL's and Self-care: N/A Current Therapies Attended: No Current Therapies Studies Obtained (when obtained, relevant findings reported below): None Notable Events During Course of Treatment: Initial HPI: (Obtained on 10/21/2021) Alyce Urrutia is a 81 year old female, who presents having been referred by Self, for evaluation and management of the above-mentioned chief complaint. This has been present for the past five years. The onset of symptoms was not sudden and was without associated trauma. The pain is most severe at night, she has gradual improvement as the day progresses. Treatments prior to initial presentation include the following: Medications (See below), Injections (See below), Modalities (eg. Heat, Ice), Physical Therapy , Acupuncture, Home Exercise Program , and Activity Modification. She has had a She has previously seen a Dr. Mckeon for pain management, last in 2018, who performed lumbar RFA, with minimal relief. At that time, she had primarily axial low back pain. 03/2022 - Discontinue Gabapentin, ineffective Data Reviewed: PAIN PROCEDURES: DATE PROCEDURE IMPROVEMENT 11/29/2023 L erector spinae block T5 none 11/09/2023 R erector spinae block T5 none 09/11/2023 B/L RFA L2-L4 100% in that region 07/26/2023 B/L MBNB L2-L4 100% or 6 hrs. 07/10/2023 B/L MBNB L2-4 100% for 4 hrs 04/13/2023 ILESI L1-L2 75%for 1 week 12/19/2022 RFA, Bilat L4-5,5-S1 No relief (positive Diagnostic Response) 12/05/2022 RFA, Bilat T9-10,11-12 No relief (positive Diagnostic Response) 10/10/2022 MBB, Bilat T9-10,11-12 Positive Diagnostic (>80% x > 4 hours) 09/21/2022 MBB, Bilat T9-10,11-12 Positive Diagnostic (>80% x > 4 hours) 05/18/2022 RFA bilateral L4-L5, L5-S1 100% x 4-5 months 04/13/2022 Bilateral MBNB L4-L5, L5-S1 95% on the left and 85% on the right 03/30/2022 Bilateral MBNB L4-L5, L5-S1 95% 01/26/22 RFA R Cluneal Nerve 30% 12/01/2021 Right Cluneal Nerve Blocks Nearly 100% x 8 hours (positive diagnostic) MEDICATIONS Taken TO DATE (for the chief complaint(s)): Membrane Stabilizers: Neurontin (Gabapentin): Discontinued - No Benefit and had side effects NSAIDS: None Muscle Relaxants: Zanaflex (Tizanidine): Beneficial Topicals: None Other Prescription or OTC Pain Medications: Tylenol (Acetaminophen): Beneficial Opioids: None Current Anti-depressants or Mood-Stabilizers: None Current Anti-Coagulants: None SOCIAL HISTORY No social history on file. Allergies: ALLERGIES Allergen Reactions Prednisone Shortness of Breath Pallor, chest pain, palpitations ORAL MEDICATIONS Beef Containing Pro* Intolerance Levaquin [Levofloxa* Other: See Comments sores in mouth/joint pain Mirapex [Pramipexol* Intolerance Doesn't help leg cramps Tramadol Intolerance Pt gets jittery Valsartan-Hydrochlo* Other: See Comments Worsens nocturnal leg cramps. Patient can take valsartan alone with no issues 02/01/2024 02/29/2024 INTAKE PAIN ASSESSMENT Are you having pain associated with your visit today? Yes, Provider notified Yes, Provider notified Pain Scales Verbal (Numeric Rating or Visual Analog Scale) Verbal (Numeric Rating or Visual Analog Scale) Pain Level 6 7 Pain Location Back-Lower Back-Lower Description Aching;Radiating;Tightness Spasm Duration Units Years Years Frequency Continuous Intermittent Intervention/Comfort measure Medication;Reposition;Relaxation Comments nothing really helps Compliance: PDMP website checked and validated on 02/29/2024 by Veena Meléndez APRN.LEAD APPLICATION ARCHITECT All prescriptions have been APPROPRIATELY filled. No suspicious activity was identified. Recent Drug screens: 10/21/2021 02/09/2023 12/14/2023 AG SPINE COMBINATION Questionnaire GREENLIGHT Completed Date 10/21/2021 Questionnaire Opiod Risk Tool Opiod Risk Tool Opiod Risk Tool Completed Date 10/21/2021 02/09/2023 12/14/2023 Comments 0 No question data found. (All drug screens are appropriate unless indicated otherwise) Risk Assessment: MARCELO-7: 10/21/2021 MARCELO - 7 SCORES Score 0 (0-4) minimal anxiety, (5-9) mild anxiety, (10-14) moderate anxiety, (15-21) severe anxiety PHQ-9: 01/06/2015 09/14/2017 10/21/2021 PHQ-9 Score 1 2 0 (0-4) minimal depression, (5-9) mild depression, (10-14) moderate depression, (15-19) moderately severe depression, (20-27) severe depression Diagnostic Studies: Relevant Imaging: MRI Spine Report MRI LUMBAR SPINE WO IVCON Exam End: 01/18/2022 1:20 PM (Final result) Narrative: * * *Final Report* * * DATE OF EXAM: Jan 18 2022 1:20PM [facility] 0303 - MRI LUMBAR SPINE WO IVCON / PROCEDURE REASON: multiple diagnoses * * * * Physician Interpretation * * * * EXAMINATION: MRI LUMBAR SPINE WO IVCON CLINICAL HISTORY: Spinal stenosis, lumbar region. TECHNIQUE: Routine lumbosacral spine MR protocol without gadolinium. MQ: [id number] COMPARISON: Outside institution lumbar spine MRI 04/13/2016 RESULT: Counting reference: Lumbosacral junction. For the purposes of this report, L4-5 is considered the level of the iliac crest and assume there are 5 lumbar-type vertebrae. Anatomic variant: None. Localizer images: 2.5 cm right upper pole renal cyst appearing slightly complex with intrinsic septations. Tiny left renal cyst. Right hip arthroplasty. Alignment: Levoscoliosis, apex L2. Trace left lateral listhesis of L3 on L4. Bone marrow signal/fracture: No evidence of pathologic marrow infiltration. No evidence of prior fracture. L2 intraosseous hemangioma. Multilevel endplate degenerative changes and multiple levels of moderate disc space narrowing. L4 superior endplate Schmorl's node. Conus: The conus is within normal limits of signal intensity and morphology, terminating at L1. Paraspinal soft tissues: Fatty atrophy of the lower paraspinal musculature. Lower thoracic spine: Visualized lower thoracic canal and foramina are patent. T12-L1: Shallow annular disc bulging flattens the ventral thecal sac without significant spinal canal or foraminal stenosis. L1-L2: Mild spinal canal stenosis secondary to disc bulging and dorsal osteophytic endplate spurring. Moderate right and mild left facet arthrosis. Mild right and no significant left foraminal stenosis. L2-L3: Severe spinal canal stenosis secondary to disc bulging and dorsal osteophytic endplate spurring as well as hypertrophic degenerative facet arthrosis. Severe right and moderate left subarticular recess effacement. Moderate left greater than right foraminal stenosis. Findings are unchanged. L3-L4: Moderate spinal canal stenosis secondary to disc bulging, dorsal osteophytic endplate spurring and hypertrophic degenerative facet arthrosis. Moderate left greater than right subarticular recess effacement. Moderate left and mild to moderate right foraminal stenosis. L4-L5: Moderate spinal canal stenosis secondary to disc bulging, dorsal osteophytic endplate spurring, left greater than right degenerative facet arthrosis. Moderate to severe left and mild to moderate right subarticular recess effacement. Moderate left and mild right foraminal stenosis. L5-S1: Mild spinal canal stenosis secondary to disc bulging. Moderate degenerative facet arthrosis. Mild left and no significant right foraminal stenosis. Sacrum and iliac wings: The visualized sacrum and iliac wings are within normal limits. Impression: IMPRESSION: Lumbar spondylosis and scoliosis without substantial progression from the 04/13/2016 examination. There is again up to severe spinal canal stenosis at L2-L3. Varying degrees of up to moderate foraminal stenosis as detailed. 2.5 cm right upper pole renal cyst with some apparent intrinsic septations. This can be further evaluated with dedicated renal ultrasound. Anatomic Thoracic/Lumbar Variant: None. L4-5 is considered the level of the iliac crest and assume there are 5 lumbar-type vertebrae. 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: ADAM Transcribe Date/Time: Jan 18 2022 1:28P Dictated by : ARUN OSULLIVAN DO This examination was interpreted and the report reviewed and electronically signed by: ARUN OSULLIVAN DO on Jan 18 2022 1:35PM EST Electrodiagnostic Study (EMG): None Recent Labs: Creatinine Date Value Ref Range Status 06/28/2016 1.26 0.70 - 1.40 mg/dL Final No results found for: EGFR No results found for: PCGLUCOSE WBC Date Value Ref Range Status 06/29/2016 6.16 3.70 - 11.00 k/uL Final Hemoglobin Date Value Ref Range Status 06/29/2016 9.0 (L) 11.5 - 15.5 g/dL Final Hematocrit Date Value Ref Range Status 06/29/2016 29.1 (L) 36.0 - 46.0 % Final Platelet Count Date Value Ref Range Status 06/29/2016 178 150 - 400 k/uL Final Current Medications, Past Medical History, Past Surgical History, Family History, Social History and Review of Systems: On today's date, noted above, I have confirmed and edited as necessary, the PFSH and ROS obtained by others. Physical Exam: 02/29/24 1444 Pulse: 70 Resp: 16 SpO2: 98% Physical Exam Vitals reviewed. Constitutional: General: She is not in acute distress. Appearance: She is not ill-appearing. HENT: Head: Normocephalic and atraumatic. Eyes: Conjunctiva/sclera: Conjunctivae normal. Cardiovascular: Pulses: Normal pulses. Pulmonary: Effort: Pulmonary effort is normal. No respiratory distress. Musculoskeletal: Arms: Thoracic back: Tenderness present. Decreased range of motion. Lumbar back: No tenderness. Normal range of motion. Comments: Pt is tender to touch bilaterally in area marked. Skin: General: Skin is warm and dry. Neurological: Mental Status: She is alert and oriented to person, place, and time. Psychiatric: Mood and Affect: Mood and affect normal. Behavior: Behavior normal. Behavior is cooperative. IMPRESSION: 83 year old female with significant past medical history for who presents with complaint(s) of axial low back pain, myofascial referred pain into the right torso. Will you will repeat the trigger point injections ordering a series of 3 to see if she continues to get relief. Diagnoses: (M47.816) Lumbar spondylosis (primary encounter diagnosis) (M48.061) Spinal stenosis of lumbar region, unspecified whether neurogenic claudication present (M47.814) Thoracic spondylosis without myelopathy (M79.18) Myofascial pain PLAN: Alyce Urrutia would benefit from the following to reach personal goals for decreasing pain, improving function and work participation, and/or improving quality of life: Medications: No Changes - Continue Current Medications Procedure: TRIGGER POINT INJECTION: Location (muscle groups): bilateral thoracic paraspinal and rhomboid region Medication Injected: 0.25% Bupivacaine # Sessions Requested: 3 Approximate Time Between Sessions (if applicable): 3-4 weeks PURPOSE: To diagnose trigger points as a cause of patient's pain and immobility. To provide therapeutic pain relief to improve range of motion, ADL's and community participation. EXAM FINDINGS: Trigger Point Present (Hyper excitable area of the body, where the application of a stimulus provokes pain to a greater degree than the surrounding area): YES FAILED TREATMENTS: Studies: None Functional Lutheran: NONE Referrals: No additional considerations at present Follow-up: 2 months Depending on response to the above plan, consider: Erector Spinae Injections, MBB/RFA Right L2-3,3-4; Electrodiagnostic Study Patient Education, Compliance and Clinic Policies Reviewed and/or Discussed Today: None Attribution: In addition to reviewing the information noted above, some elements copied from my most recent clinical note(s), including the physical exam (completed in entirety today), and the impression and plan sections, have been updated where appropriate. All reflect current medical decision making from today's date. Veena Meléndez APRN.LEAD APPLICATION ARCHITECT Pain Management [facility] PROGRESS Observed: 02/29/2024 2:48 PM Status: COMPLETED Source: [facility] HNO ID: [id number] Author: TL CORDERO LPN Service: ? Author Type: LICENSED NURSE Type: Progress Notes Filed: 02/29/2024 16:55 Note Text: Review of Systems Constitutional: Negative for activity change, chills, fever and unexpected weight change. Gastrointestinal: Negative for bowel retention or incontinence Genitourinary: Negative for difficulty urinating. Negative for bladder retention or incontinence Musculoskeletal: Positive for back pain, gait problem, neck pain and neck stiffness. Negative for arthralgias, joint swelling and myalgias. Neurological: Negative for weakness, numbness and headaches. Psychiatric/Behavioral: Negative for dysphoric mood, sleep disturbance and suicidal ideas. The patient is not nervous/anxious. CNOV Observed: 02/29/2024 2:45 PM Status: COMPLETED Source: [facility] Office Visit (SPAGWO) ALYCE URRUTIA ([id number]) 1940 F NFR Date Time Provider Department 02/29/24 2:45 PM VEENA MELÉNDEZ During your visit today, we recorded the following information about you: Pulse Respiration 70/minute 16/minute Tl Cordero LPN 02/29/2024 4:55 PM Signed Review of Systems Constitutional: Negative for activity change, chills, fever and unexpected weight change. Gastrointestinal: Negative for bowel retention or incontinence Genitourinary: Negative for difficulty urinating. Negative for bladder retention or incontinence Musculoskeletal: Positive for back pain, gait problem, neck pain and neck stiffness. Negative for arthralgias, joint swelling and myalgias. Neurological: Negative for weakness, numbness and headaches. Psychiatric/Behavioral: Negative for dysphoric mood, sleep disturbance and suicidal ideas. The patient is not nervous/anxious. Veena Meléndez APRN.LEAD APPLICATION ARCHITECT 02/29/2024 4:55 PM Signed [facility] Today's Date: 02/29/2024 Last Visit: 02/09/2023 Name: Alyce Urrutia : 1940 Purpose: SPRINT PNS Consult Chief complaint: low back pain Pertinent Past Medical History: Benign Meningeal Neoplasms, Occipital Neuralgia, HTN, GERD, CKD, Hypothyroidism, Knee OA s/p bilateral TKA, Obesity, s/p right Total Hip Arthroplasty, Pertinent Past Surgeries: TKR, THR Plan at last visit: (Seen on 12/14/2023 by Veena Meléndez CNP) PLAN: Alyce Urrutia would benefit from the following to reach personal goals for decreasing pain, improving function and work participation, and/or improving quality of life: Medications: No Changes - Continue Current Medications Procedure: TRIGGER POINT INJECTION: Location (muscle groups): bilateral thoracic paraspinal and rhomboid region Medication Injected: 0.25% Bupivacaine # Sessions Requested: 1 Approximate Time Between Sessions (if applicable): 3-4 weeks PURPOSE: To diagnose trigger points as a cause of patient's pain and immobility. To provide therapeutic pain relief to improve range of motion, ADL's and community participation. EXAM FINDINGS: Trigger Point Present (Hyper excitable area of the body, where the application of a stimulus provokes pain to a greater degree than the surrounding area): YES FAILED TREATMENTS: Studies: None Functional Lutheran: NONE Referrals: No additional considerations at present Follow-up: [address] Chakraborty, Dr Garcia or Dr Chicas to discuss the SPRINT Depending on response to the above plan, consider: Erector Spinae Injections, MBB/RFA Right L2-3,3-4; Electrodiagnostic Study - Interval History: Overall pain and functional disability since last visit: Unchanged New Complaints since last visit: No Patient had trigger point injections done 02/01/2024 patient reporting 75% relief. Patient states it did not last more than 3 weeks but it felt good. Patient states her pain level is still not back to what it was prior to the injections. Patient would like to repeat trigger point injections as she felt this is the first thing that has helped with the pain. Current Pain Medications: Neuropathics: None NSAIDS: Muscle Relaxants: Topicals: Other Prescription or OTC Pain Medications: Tylenol OTC - partial relief Opioids (when applicable): Date last refilled: Quantity supplied: Quantity remaining: Last taken: Tolerating Medication: N/A Medications helping improve ADL's and Self-care: N/A Current Therapies Attended: No Current Therapies Studies Obtained (when obtained, relevant findings reported below): None Notable Events During Course of Treatment: Initial HPI: (Obtained on 10/21/2021) Alyce Urrutia is a 81 year old female, who presents having been referred by Self, for evaluation and management of the above-mentioned chief complaint. This has been present for the past five years. The onset of symptoms was not sudden and was without associated trauma. The pain is most severe at night, she has gradual improvement as the day progresses. Treatments prior to initial presentation include the following: Medications (See below), Injections (See below), Modalities (eg. Heat, Ice), Physical Therapy , Acupuncture, Home Exercise Program , and Activity Modification. She has had a She has previously seen a Dr. Mckeon for pain management, last in 2018, who performed lumbar RFA, with minimal relief. At that time, she had primarily axial low back pain. 03/2022 - Discontinue Gabapentin, ineffective Data Reviewed: PAIN PROCEDURES: DATE PROCEDURE IMPROVEMENT 11/29/2023 L erector spinae block T5 none 11/09/2023 R erector spinae block T5 none 09/11/2023 B/L RFA L2-L4 100% in that region 07/26/2023 B/L MBNB L2-L4 100% or 6 hrs. 07/10/2023 B/L MBNB L2-4 100% for 4 hrs 04/13/2023 ILESI L1-L2 75%for 1 week 12/19/2022 RFA, Bilat L4-5,5-S1 No relief (positive Diagnostic Response) 12/05/2022 RFA, Bilat T9-10,11-12 No relief (positive Diagnostic Response) 10/10/2022 MBB, Bilat T9-10,11-12 Positive Diagnostic (>80% x > 4 hours) 09/21/2022 MBB, Bilat T9-10,11-12 Positive Diagnostic (>80% x > 4 hours) 05/18/2022 RFA bilateral L4-L5, L5-S1 100% x 4-5 months 04/13/2022 Bilateral MBNB L4-L5, L5-S1 95% on the left and 85% on the right 03/30/2022 Bilateral MBNB L4-L5, L5-S1 95% 01/26/22 RFA R Cluneal Nerve 30% 12/01/2021 Right Cluneal Nerve Blocks Nearly 100% x 8 hours (positive diagnostic) MEDICATIONS Taken TO DATE (for the chief complaint(s)): Membrane Stabilizers: Neurontin (Gabapentin): Discontinued - No Benefit and had side effects NSAIDS: None Muscle Relaxants: Zanaflex (Tizanidine): Beneficial Topicals: None Other Prescription or OTC Pain Medications: Tylenol (Acetaminophen): Beneficial Opioids: None Current Anti-depressants or Mood-Stabilizers: None Current Anti-Coagulants: None SOCIAL HISTORY No social history on file. Allergies: ALLERGIES Allergen Reactions Prednisone Shortness of Breath Pallor, chest pain, palpitations ORAL MEDICATIONS Beef Containing Pro* Intolerance Levaquin [Levofloxa* Other: See Comments sores in mouth/joint pain Mirapex [Pramipexol* Intolerance Doesn't help leg cramps Tramadol Intolerance Pt gets jittery Valsartan-Hydrochlo* Other: See Comments Worsens nocturnal leg cramps. Patient can take valsartan alone with no issues 02/01/2024 02/29/2024 INTAKE PAIN ASSESSMENT Are you having pain associated with your visit today? Yes, Provider notified Yes, Provider notified Pain Scales Verbal (Numeric Rating or Visual Analog Scale) Verbal (Numeric Rating or Visual Analog Scale) Pain Level 6 7 Pain Location Back-Lower Back-Lower Description Aching;Radiating;Tightness Spasm Duration Units Years Years Frequency Continuous Intermittent Intervention/Comfort measure Medication;Reposition;Relaxation Comments nothing really helps Compliance: PDMP website checked and validated on 02/29/2024 by Veena Meléndez APRN.LEAD APPLICATION ARCHITECT All prescriptions have been APPROPRIATELY filled. No suspicious activity was identified. Recent Drug screens: 10/21/2021 02/09/2023 12/14/2023 AG SPINE COMBINATION Questionnaire GREENLIGHT Completed Date 10/21/2021 Questionnaire Opiod Risk Tool Opiod Risk Tool Opiod Risk Tool Completed Date 10/21/2021 02/09/2023 12/14/2023 Comments 0 No question data found. (All drug screens are appropriate unless indicated otherwise) Risk Assessment: MARCELO-7: 10/21/2021 MARCELO - 7 SCORES Score 0 (0-4) minimal anxiety, (5-9) mild anxiety, (10-14) moderate anxiety, (15-21) severe anxiety PHQ-9: 01/06/2015 09/14/2017 10/21/2021 PHQ-9 Score 1 2 0 (0-4) minimal depression, (5-9) mild depression, (10-14) moderate depression, (15-19) moderately severe depression, (20-27) severe depression Diagnostic Studies: Relevant Imaging: MRI Spine Report MRI LUMBAR SPINE WO IVCON Exam End: 01/18/2022 1:20 PM (Final result) Narrative: * * *Final Report* * * DATE OF EXAM: Jan 18 2022 1:20PM [facility] 0303 - MRI LUMBAR SPINE WO IVCON / PROCEDURE REASON: multiple diagnoses * * * * Physician Interpretation * * * * EXAMINATION: MRI LUMBAR SPINE WO IVCON CLINICAL HISTORY: Spinal stenosis, lumbar region. TECHNIQUE: Routine lumbosacral spine MR protocol without gadolinium. MQ: [id number] COMPARISON: Outside institution lumbar spine MRI 04/13/2016 RESULT: Counting reference: Lumbosacral junction. For the purposes of this report, L4-5 is considered the level of the iliac crest and assume there are 5 lumbar-type vertebrae. Anatomic variant: None. Localizer images: 2.5 cm right upper pole renal cyst appearing slightly complex with intrinsic septations. Tiny left renal cyst. Right hip arthroplasty. Alignment: Levoscoliosis, apex L2. Trace left lateral listhesis of L3 on L4. Bone marrow signal/fracture: No evidence of pathologic marrow infiltration. No evidence of prior fracture. L2 intraosseous hemangioma. Multilevel endplate degenerative changes and multiple levels of moderate disc space narrowing. L4 superior endplate Schmorl's node. Conus: The conus is within normal limits of signal intensity and morphology, terminating at L1. Paraspinal soft tissues: Fatty atrophy of the lower paraspinal musculature. Lower thoracic spine: Visualized lower thoracic canal and foramina are patent. T12-L1: Shallow annular disc bulging flattens the ventral thecal sac without significant spinal canal or foraminal stenosis. L1-L2: Mild spinal canal stenosis secondary to disc bulging and dorsal osteophytic endplate spurring. Moderate right and mild left facet arthrosis. Mild right and no significant left foraminal stenosis. L2-L3: Severe spinal canal stenosis secondary to disc bulging and dorsal osteophytic endplate spurring as well as hypertrophic degenerative facet arthrosis. Severe right and moderate left subarticular recess effacement. Moderate left greater than right foraminal stenosis. Findings are unchanged. L3-L4: Moderate spinal canal stenosis secondary to disc bulging, dorsal osteophytic endplate spurring and hypertrophic degenerative facet arthrosis. Moderate left greater than right subarticular recess effacement. Moderate left and mild to moderate right foraminal stenosis. L4-L5: Moderate spinal canal stenosis secondary to disc bulging, dorsal osteophytic endplate spurring, left greater than right degenerative facet arthrosis. Moderate to severe left and mild to moderate right subarticular recess effacement. Moderate left and mild right foraminal stenosis. L5-S1: Mild spinal canal stenosis secondary to disc bulging. Moderate degenerative facet arthrosis. Mild left and no significant right foraminal stenosis. Sacrum and iliac wings: The visualized sacrum and iliac wings are within normal limits. Impression: IMPRESSION: Lumbar spondylosis and scoliosis without substantial progression from the 04/13/2016 examination. There is again up to severe spinal canal stenosis at L2-L3. Varying degrees of up to moderate foraminal stenosis as detailed. 2.5 cm right upper pole renal cyst with some apparent intrinsic septations. This can be further evaluated with dedicated renal ultrasound. Anatomic Thoracic/Lumbar Variant: None. L4-5 is considered the level of the iliac crest and assume there are 5 lumbar-type vertebrae. 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: [facility] Transcribe Date/Time: Jan 18 2022 1:28P Dictated by : ARUN OSULLIVAN DO This examination was interpreted and the report reviewed and electronically signed by: ARUN OSULLIVAN DO on Jan 18 2022 1:35PM EST Electrodiagnostic Study (EMG): None Recent Labs: Creatinine Date Value Ref Range Status 06/28/2016 1.26 0.70 - 1.40 mg/dL Final No results found for: EGFR No results found for: PCGLUCOSE WBC Date Value Ref Range Status 06/29/2016 6.16 3.70 - 11.00 k/uL Final Hemoglobin Date Value Ref Range Status 06/29/2016 9.0 (L) 11.5 - 15.5 g/dL Final Hematocrit Date Value Ref Range Status 06/29/2016 29.1 (L) 36.0 - 46.0 % Final Platelet Count Date Value Ref Range Status 06/29/2016 178 150 - 400 k/uL Final Current Medications, Past Medical History, Past Surgical History, Family History, Social History and Review of Systems: On today's date, noted above, I have confirmed and edited as necessary, the PFSH and ROS obtained by others. Physical Exam: 02/29/24 1444 Pulse: 70 Resp: 16 SpO2: 98% Physical Exam Vitals reviewed. Constitutional: General: She is not in acute distress. Appearance: She is not ill-appearing. HENT: Head: Normocephalic and atraumatic. Eyes: Conjunctiva/sclera: Conjunctivae normal. Cardiovascular: Pulses: Normal pulses. Pulmonary: Effort: Pulmonary effort is normal. No respiratory distress. Musculoskeletal: Arms: Thoracic back: Tenderness present. Decreased range of motion. Lumbar back: No tenderness. Normal range of motion. Comments: Pt is tender to touch bilaterally in area marked. Skin: General: Skin is warm and dry. Neurological: Mental Status: She is alert and oriented to person, place, and time. Psychiatric: Mood and Affect: Mood and affect normal. Behavior: Behavior normal. Behavior is cooperative. IMPRESSION: 83 year old female with significant past medical history for who presents with complaint(s) of axial low back pain, myofascial referred pain into the right torso. Will you will repeat the trigger point injections ordering a series of 3 to see if she continues to get relief. Diagnoses: (M47.816) Lumbar spondylosis (primary encounter diagnosis) (M48.061) Spinal stenosis of lumbar region, unspecified whether neurogenic claudication present (M47.814) Thoracic spondylosis without myelopathy (M79.18) Myofascial pain PLAN: Alyce Urrutia would benefit from the following to reach personal goals for decreasing pain, improving function and work participation, and/or improving quality of life: Medications: No Changes - Continue Current Medications Procedure: TRIGGER POINT INJECTION: Location (muscle groups): bilateral thoracic paraspinal and rhomboid region Medication Injected: 0.25% Bupivacaine # Sessions Requested: 3 Approximate Time Between Sessions (if applicable): 3-4 weeks PURPOSE: To diagnose trigger points as a cause of patient's pain and immobility. To provide therapeutic pain relief to improve range of motion, ADL's and community participation. EXAM FINDINGS: Trigger Point Present (Hyper excitable area of the body, where the application of a stimulus provokes pain to a greater degree than the surrounding area): YES FAILED TREATMENTS: Studies: None Functional Lutheran: NONE Referrals: No additional considerations at present Follow-up: 2 months Depending on response to the above plan, consider: Erector Spinae Injections, MBB/RFA Right L2-3,3-4; Electrodiagnostic Study Patient Education, Compliance and Clinic Policies Reviewed and/or Discussed Today: None Attribution: In addition to reviewing the information noted above, some elements copied from my most recent clinical note(s), including the physical exam (completed in entirety today), and the impression and plan sections, have been updated where appropriate. All reflect current medical decision making from today's date. Veena Meléndez APRN.LEAD APPLICATION ARCHITECT Pain Management [facility] Allergies As of Date: 02/29/2024 Noted Allergy Reaction PREDNISONE 04/26/2012 12 - Shortness of Breath Comments: Pallor, chest pain, palpitations ORAL MEDICATIONS BEEF CONTAINING PRODUCTS 08/26/2014 5 - Intolerance LEVAQUIN (LEVOFLOXACIN) 08/28/2007 14 - Other: See Comments Comments: sores in mouth/joint pain MIRAPEX (PRAMIPEXOLE) 04/26/2012 5 - Intolerance Comments: Doesn't help leg cramps TRAMADOL 12/23/2014 5 - Intolerance Comments: Pt gets jittery VALSARTAN-HYDROCHLOROTHIAZIDE 04/26/2012 14 - Other: See Comments Comments: Worsens nocturnal leg cramps. Patient can take valsartan alone with no issues Date Reviewed: 02/29/2024 Reviewed by: Veena Meléndez APRN.LEAD APPLICATION ARCHITECT - Fully Assessed Reason for Visit: Follow Up [171] Cmt: After injections Primary Visit Diagnosis:Lumbar spondylosis [M47.816] Other Visit Diagnoses:Spinal stenosis of lumbar region, unspecified whether neurogenic claudication present [M48.061] Thoracic spondylosis without myelopathy [M47.814] Myofascial pain [M79.18] Order(s):PRE-CERT ORDER () [[id number]] Order #: [id number]: 1 Prescriptions as of 02/29/2024 - letrozole (FEMARA) 2.5 mg tablet Take 1 tablet by mouth once daily. - amoxicillin (AMOXIL) 500 mg capsule Take 4 capsules by mouth as directed. ONE HOUR PRIOR TO DENTAL WORK - spironolactone (ALDACTONE) 25 mg tablet - oxybutynin (DITROPAN) 5 mg tablet Take 5 mg by mouth once daily. - atenolol (TENORMIN) 25 mg tablet Take 25 mg by mouth twice daily. - ASPIRIN ORAL Take 81 mg by mouth. - ACETAMINOPHEN PAIN RELIEF ORAL Take by mouth. - anastrozole (ARIMIDEX) 1 mg tablet Take 1 mg by mouth once daily. - denosumab (PROLIA) 60 mg/mL Inject 60 mg subcutaneously one time only. - rosuvastatin (CRESTOR) 10 mg tablet Take 10 mg by mouth daily at bedtime. - cyanocobalamin, vitamin B-12, (VITAMIN B-12 ORAL) Take by mouth four times a week. - UBIQUINONE ORAL Take 100 mg by mouth once daily. - tiZANidine (ZANAFLEX) 4 mg tablet Take 1 tablet by mouth twice daily as needed. - chlordiazePOXIDE-clidinium (LIBRAX) 5-2.5 mg per capsule Take 1 tablet by mouth DAILY. NEEDED WHEN PT EATS BEEF PRODUCTS Indications: FOR bEEF PRODUCTS EATEN - clotrimazole-betamethasone (LOTRISONE) cream Apply 1 application to affected area as needed (for rash). as needed for rash - Diclofenac Sodium (VOLTAREN) 1 % gel Apply 1 g to affected area three times daily as needed. - QUININE, BULK, MISC 250 mg as needed. - cholecalciferol, vitamin D3, 50,000 unit tab Take by mouth every Monday. - valsartan (DIOVAN) 160 mg tablet Take 160 mg by mouth twice daily. - amLODIPine (NORVASC) 5 mg tablet Take 5 mg by mouth twice daily. - omeprazole 20 mg capsule Take 20 mg by mouth once daily. - LUTEIN 20 MG CAP Take one(1) tablet daily. - SYNTHROID 150MCG TABLET Take 150 mcg by mouth once daily. 1 tablet daily, and 1/2 tablet on monday Problem List As Of Date 02/29/2024 Noted Resolved BENIGN HYPERTENSION [I10] Hypothyroidism [E03.9] OA (osteoarthritis) [M19.90] PAIN IN LIMB [M79.609] BENIGN BETTIE CEREBR MENINGES [D32.0] 07/17/2007 OA (Osteoarthritis) of Knee [M17.9] 08/19/2009 Endometrial mass [N94.89] 10/05/2012 10/29/2012 Lumbar spondylosis [M47.816] 07/23/2014 DDD (degenerative disc disease), lumbar [M51.36*07/23/2014 GERD (gastroesophageal reflux disease) [K21.9] 12/19/2014 Asthma [J45.909] 12/19/2014 Anemia [D64.9] 12/19/2014 CKD (chronic kidney disease) [N18.9] 12/19/2014 Cervical spondylosis without myelopathy [M47.81*01/06/2015 Neck pain [M54.2] 01/06/2015 Bilateral occipital neuralgia [M54.81] 01/06/2015 Cervical strain [S16.1XXA] 01/06/2015 Non morbid obesity [E66.9] 06/25/2015 H/O total hip arthroplasty [Z96.649] 07/06/2015 Altered gait [R26.9] 08/27/2015 Weakness of right hip [R29.898] 08/27/2015 Chronic pain of left knee [M25.562, G89.29] 10/05/2015 Iron deficiency anemia, unspecified [D50.9] 06/21/2016 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.9] 06/21/2016 Status post knee replacement [Z96.659] 06/27/2016 Weakness of both lower extremities [R29.898] 01/20/2017 Chronic bilateral low back pain without sciatic*01/20/2017 Degenerative disc disease, lumbar [M51.369] 03/15/2017 Lumbar facet joint pain [M54.59] 03/15/2017 Chronic low back pain without sciatica [M54.50,*09/20/2017 Chronic right-sided low back pain without sciat*10/30/2017 Myofascial pain [M79.18] 11/01/2021 Spinal stenosis, lumbar region, without neuroge*11/01/2021 Lumbar radiculopathy [M54.16] 11/01/2021 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 Follow-up and Disposition History for Encounter Date Provider Department Center 02/29/2024 [id number] MELÉNDEZ Encounter Status:Closed by VEENA MELÉNDEZ on 02/29/24 PROCEDURE Observed: 02/01/2024 1:45 PM Status: COMPLETED Source: [facility] HNO ID: [id number] Author: VEENA MELÉNDEZ APRN.LEAD APPLICATION ARCHITECT Service: ? Author Type: Nurse Practitioner Type: Procedures Filed: 02/01/2024 14:10 Note [facility] Patient Date of : 1940 Today's Date: 01/30/2024 Provider performing procedure: Veena Meléndez APRN.LEAD APPLICATION ARCHITECT Procedure: B/L rhomboid and paraspinal lumbar Trigger Point Injection(s) Injectate: A total of 3 cc of 0.25% Bupivacaine Diagnosis (Indication for procedure): Myofacial pain Comments: none HPI: Alyce Urrutia is an 83 year old FEMALE who presents today, in pain, for the procedure noted above. PAST MEDICAL HISTORY Diagnosis Date Abdominal pain, epigastric Abdominal pain, unspecified site Acute gastritis without mention of hemorrhage Anemia, unspecified Asthma Circumscribed scleroderma Diverticulosis of colon (without mention of hemorrhage) Essential hypertension, benign Internal hemorrhoids without mention of complication Irritable bowel syndrome Kidney disease Non morbid obesity 06/25/2015 Osteoarthrosis, unspecified whether generalized or localized, other specified sites Osteoarthritis Other diseases of lung, not elsewhere classified PMH - PAST MEDICAL HISTORY OF leukopenia Pure hypercholesterolemia Snoring Unspecified hypothyroidism PAST SURGICAL HISTORY Procedure Laterality Date ARTHROSCOPY KNEE DIAGNOSTIC W/WO SYNOVIAL BX SPX 01/2004 Arthroscopy, knee-RIGHT ARTHRP ACETBLR/PROX FEM PROSTC AGRFT/ALGRFT Right 07/06/2015 Hip replacement, total ARTHRP KNE CONDYLEANDPLATU MEDIALANDLAT COMPARTMENTS 06/12/2005 Knee replacement, total-right ARTHRP KNE CONDYLEANDPLATU MEDIALANDLAT COMPARTMENTS Left 06/27/2016 Knee replacement, total COLONOSCOPY FLX DX W/COLLJ SPEC WHEN PFRMD 11/28/2007 COLONOSCOPY FLX DX W/COLLJ SPEC WHEN PFRMD 10/06/2014 Colonoscopy DILATION AND CURETTAGE DXAND/THER NONOBSTETRIC 10/10/2012 Dilation AND curettage w/ resection polyp EGD TRANSORAL BIOPSY SINGLE/MULTIPLE 09/26/2006 LEFT HEART CATH,PERCUTANEOUS Right 08/2022 PAST SURGICAL HISTORY OF 04/07/1998 Minimal access right frontal craniotomy with biopsy and gross PAST SURGICAL HISTORY OF spinal injection FAMILY HISTORY Problem Relation Age of Onset Arthritis Mother Arthritis Father None Brother Social History Tobacco Use Smoking status: Former Current packs/day: 1.00 Average packs/day: 1 pack/day for 3.0 years (3.0 ttl pk-yrs) Types: Cigarettes Smokeless tobacco: Former Tobacco comments: QUIT 50 YEARS AGO Vaping Use Vaping status: Never Used Substance Use Topics Alcohol use: Yes Comment: occassional Drug use: No Current Outpatient Medications on File Prior to Visit Medication Sig letrozole (FEMARA) 2.5 mg tablet Take 1 tablet by mouth once daily. amoxicillin (AMOXIL) 500 mg capsule Take 4 capsules by mouth as directed. ONE HOUR PRIOR TO DENTAL WORK spironolactone (ALDACTONE) 25 mg tablet oxybutynin (DITROPAN) 5 mg tablet Take 5 mg by mouth once daily. atenolol (TENORMIN) 25 mg tablet Take 25 mg by mouth twice daily. ASPIRIN ORAL Take 81 mg by mouth. ACETAMINOPHEN PAIN RELIEF ORAL Take by mouth. anastrozole (ARIMIDEX) 1 mg tablet Take 1 mg by mouth once daily. denosumab (PROLIA) 60 mg/mL Inject 60 mg subcutaneously one time only. rosuvastatin (CRESTOR) 10 mg tablet Take 10 mg by mouth daily at bedtime. cyanocobalamin, vitamin B-12, (VITAMIN B-12 ORAL) Take by mouth four times a week. UBIQUINONE ORAL Take 100 mg by mouth once daily. tiZANidine (ZANAFLEX) 4 mg tablet Take 1 tablet by mouth twice daily as needed. chlordiazePOXIDE-clidinium (LIBRAX) 5-2.5 mg per capsule Take 1 tablet by mouth DAILY. NEEDED WHEN PT EATS BEEF PRODUCTS Indications: FOR bEEF PRODUCTS EATEN clotrimazole-betamethasone (LOTRISONE) cream Apply 1 application to affected area as needed (for rash). as needed for rash Diclofenac Sodium (VOLTAREN) 1 % gel Apply 1 g to affected area three times daily as needed. QUININE, BULK, MISC 250 mg as needed. cholecalciferol, vitamin D3, 50,000 unit tab Take by mouth every Monday. valsartan (DIOVAN) 160 mg tablet Take 160 mg by mouth twice daily. amLODIPine (NORVASC) 5 mg tablet Take 5 mg by mouth twice daily. omeprazole 20 mg capsule Take 20 mg by mouth once daily. LUTEIN 20 MG CAP Take one(1) tablet daily. SYNTHROID 150MCG TABLET Take 150 mcg by mouth once daily. 1 tablet daily, and 1/2 tablet on monday No current facility-administered medications on file prior to visit. ALLERGIES Allergen Reactions Prednisone Shortness of Breath Pallor, chest pain, palpitations ORAL MEDICATIONS Beef Containing Pro* Intolerance Levaquin [Levofloxa* Other: See Comments sores in mouth/joint pain Mirapex [Pramipexol* Intolerance Doesn't help leg cramps Tramadol Intolerance Pt gets jittery Valsartan-Hydrochlo* Other: See Comments Worsens nocturnal leg cramps. Patient can take valsartan alone with no issues Data Reviewed: Current Medications, Past Medical History, Past Surgical History, Family History, Social History and Review of Systems: On Today's date, noted in the attribution, I have confirmed and edited as necessary, the PFSH and ROS obtained by others. Objective Exam: Vitals: As per nursing documentation Constitutional: Normal Appearance, Oriented to Time, Place and Person Head: No lacerations, no external signs of trauma Eyes: Conjunctiva clear. No discharge from the eyes Cardiovascular: Appears well-perfused Pulmonary: Non-labored respirations Abdominal: Non-distended Skin: No visible rashes or ecchymosis Psychiatric: Mood appropriate for given condition Neurological: Gross movements are limited by pain, but otherwise unremarkable MSK: trigger points to palpation of the muscle groups listed above Assessment and Plan: -repeat TPIs as needed pending outcome of the TPIs done today -follow up in 1 month for a [facility] [place] protocol documentation / Pre-Procedure Checklist: Consent: Obtained verbally prior to procedure I had a nice discussion with the patient today about their current pain and the pathology that could be causing it We discussed different treatment options, including risks, benefits and alternatives. We agreed to proceed as previously discussed, or the plan was modified in accordance with the comments noted above Patient identifiers, including name and date of , were confirmed After discussing risks and benefits, reviewing patient's allergy list to ensure all medications being given are tolerated to the best of our known information, the in-office procedure of Trigger Point Injections was performed at the locations noted above. The region(s) noted above were prepped using sterile technique. A 1.5 inch 25 gauge needle was used to multiple areas of muscle spasm using dry needle technique. The medication noted above was injected in equal parts at 7 total site(s) within the region(s) mentioned above. All points elicited local twitch responses which softened after the injection. After careful removal of the needle, there was minimal bleeding. The injection site was covered with appropriate sterile dressing where needed. The patient was noted to have tolerated the procedure well and was discharged after an appropriate period of post-procedure observation. The patient was instructed to contact us if there were any complications. The patient was advised to follow-up with the requesting physician within one to two weeks or as per their requested follow-up plan. Post procedure visit summary with written instructions was offered to the patient. Veena Meléndez APRN.LEAD APPLICATION ARCHITECT Pain Management [facility] PROGRESS Observed: 02/01/2024 1:42 PM Status: COMPLETED Source: [facility] HNO ID: [id number] Author: FARHEEN ANGUIANO LPN Service: ? Author Type: LICENSED NURSE Type: Progress Notes Filed: 02/01/2024 14:10 Note Text: Review of Systems Constitutional: Negative for activity change, chills, fever and unexpected weight change. Genitourinary: Negative for difficulty urinating. Musculoskeletal: Positive for arthralgias, back pain, gait problem, neck pain and neck stiffness. Negative for joint swelling and myalgias. Neurological: Negative for weakness, numbness and headaches. Psychiatric/Behavioral: Negative for dysphoric mood, sleep disturbance and suicidal ideas. The patient is not nervous/anxious. NIMA Observed: 12/19/2023 12:00 AM Status: COMPLETED Source: [facility] Telephone ([id number]) ALYCE URRUTIA ([id number]) 1940 F NFR Date Time Provider Department 12/19/23 [facility] During your visit today, we recorded the following information about you: Beny Stringer 12/19/2023 9:38 AM Signed Received cervical Xray results from [facility]. These have been scanned into this patient's chart. Veena Coffey APRN.LEAD APPLICATION ARCHITECT 12/19/2023 12:06 PM Signed noted Allergies As of Date: 12/19/2023 Noted Allergy Reaction PREDNISONE 04/26/2012 12 - Shortness of Breath Comments: Pallor, chest pain, palpitations ORAL MEDICATIONS BEEF CONTAINING PRODUCTS 08/26/2014 5 - Intolerance LEVAQUIN (LEVOFLOXACIN) 08/28/2007 14 - Other: See Comments Comments: sores in mouth/joint pain MIRAPEX (PRAMIPEXOLE) 04/26/2012 5 - Intolerance Comments: Doesn't help leg cramps TRAMADOL 12/23/2014 5 - Intolerance Comments: Pt gets jittery VALSARTAN-HYDROCHLOROTHIAZIDE 04/26/2012 14 - Other: See Comments Comments: Worsens nocturnal leg cramps. Patient can take valsartan alone with no issues Date Reviewed: 12/14/2023 Reviewed by: Gunjan Guerrero MA - Fully Assessed Reason for Visit: Patient Update [1234] Cmt: Xray results Prescriptions as of 12/19/2023 - letrozole (FEMARA) 2.5 mg tablet Take 1 tablet by mouth once daily. - amoxicillin (AMOXIL) 500 mg capsule Take 4 capsules by mouth as directed. ONE HOUR PRIOR TO DENTAL WORK - spironolactone (ALDACTONE) 25 mg tablet - oxybutynin (DITROPAN) 5 mg tablet Take 5 mg by mouth once daily. - atenolol (TENORMIN) 25 mg tablet Take 25 mg by mouth twice daily. - ASPIRIN ORAL Take 81 mg by mouth. - ACETAMINOPHEN PAIN RELIEF ORAL Take by mouth. - anastrozole (ARIMIDEX) 1 mg tablet Take 1 mg by mouth once daily. - denosumab (PROLIA) 60 mg/mL Inject 60 mg subcutaneously one time only. - rosuvastatin (CRESTOR) 10 mg tablet Take 10 mg by mouth daily at bedtime. - cyanocobalamin, vitamin B-12, (VITAMIN B-12 ORAL) Take by mouth four times a week. - UBIQUINONE ORAL Take 100 mg by mouth once daily. - tiZANidine (ZANAFLEX) 4 mg tablet Take 1 tablet by mouth twice daily as needed. - chlordiazePOXIDE-clidinium (LIBRAX) 5-2.5 mg per capsule Take 1 tablet by mouth DAILY. NEEDED WHEN PT EATS BEEF PRODUCTS Indications: FOR bEEF PRODUCTS EATEN - clotrimazole-betamethasone (LOTRISONE) cream Apply 1 application to affected area as needed (for rash). as needed for rash - Diclofenac Sodium (VOLTAREN) 1 % gel Apply 1 g to affected area three times daily as needed. - QUININE, BULK, MISC 250 mg as needed. - cholecalciferol, vitamin D3, 50,000 unit tab Take by mouth every Monday. - valsartan (DIOVAN) 160 mg tablet Take 160 mg by mouth twice daily. - amLODIPine (NORVASC) 5 mg tablet Take 5 mg by mouth twice daily. - omeprazole 20 mg capsule Take 20 mg by mouth once daily. - LUTEIN 20 MG CAP Take one(1) tablet daily. - SYNTHROID 150MCG TABLET Take 150 mcg by mouth once daily. 1 tablet daily, and 1/2 tablet on monday Problem List As Of Date 12/19/2023 Noted Resolved BENIGN HYPERTENSION [I10] Hypothyroidism [E03.9] OA (osteoarthritis) [M19.90] PAIN IN LIMB [M79.609] BENIGN BETTIE CEREBR MENINGES [D32.0] 07/17/2007 OA (Osteoarthritis) of Knee [M17.9] 08/19/2009 Endometrial mass [N94.89] 10/05/2012 10/29/2012 Lumbar spondylosis [M47.816] 07/23/2014 DDD (degenerative disc disease), lumbar [M51.36*07/23/2014 GERD (gastroesophageal reflux disease) [K21.9] 12/19/2014 Asthma [J45.909] 12/19/2014 Anemia [D64.9] 12/19/2014 CKD (chronic kidney disease) [N18.9] 12/19/2014 Cervical spondylosis without myelopathy [M47.81*01/06/2015 Neck pain [M54.2] 01/06/2015 Bilateral occipital neuralgia [M54.81] 01/06/2015 Cervical strain [S16.1XXA] 01/06/2015 Non morbid obesity [E66.9] 06/25/2015 H/O total hip arthroplasty [Z96.649] 07/06/2015 Altered gait [R26.9] 08/27/2015 Weakness of right hip [R29.898] 08/27/2015 Chronic pain of left knee [M25.562, G89.29] 10/05/2015 Iron deficiency anemia, unspecified [D50.9] 06/21/2016 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.9] 06/21/2016 Status post knee replacement [Z96.659] 06/27/2016 Weakness of both lower extremities [R29.898] 01/20/2017 Chronic bilateral low back pain without sciatic*01/20/2017 Degenerative disc disease, lumbar [M51.369] 03/15/2017 Lumbar facet joint pain [M54.59] 03/15/2017 Chronic low back pain without sciatica [M54.50,*09/20/2017 Chronic right-sided low back pain without sciat*10/30/2017 Myofascial pain [M79.18] 11/01/2021 Spinal stenosis, lumbar region, without neuroge*11/01/2021 Lumbar radiculopathy [M54.16] 11/01/2021 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 Author Type: Nurse Practitioner Type: Progress Notes Filed: 12/14/2023 15:37 Note Text: [facility] Today's Date: 12/14/2023 Last Visit: 02/09/2023 Name: Alyce Urrutia : 1940 Purpose: SPRINT PNS Consult Chief complaint: low back pain Pertinent Past Medical History: Benign Meningeal Neoplasms, Occipital Neuralgia, HTN, GERD, CKD, Hypothyroidism, Knee OA s/p bilateral TKA, Obesity, s/p right Total Hip Arthroplasty, Pertinent Past Surgeries: TKR, THR Plan at last visit: (Seen on 10/12/2023 by Veena Meléndez CNP) PLAN: Alyce Urrutia would benefit from the following to reach personal goals for decreasing pain, improving function and work participation, and/or improving quality of life: Medications: No Changes - Continue Current Medications Procedure: Erector Spinae with steroid infiltration under fluoroscopic guidance BILATERAL SIDES at N/A at the L5 right side first and then 2 weeks later the left. Humanities Division Chair Needed: Epidural - YES Anticoagulant - Hold Needed: N/A (Not currently on Anticoagulants) Anticoagulant - Currently Taking: None Allergies (relevant): None Scheduling - Mobility (Can Patient independently transfer on/off an OR or Procedure table?): YES (May schedule at any location) Scheduling - Additional Info: None Studies: None Functional Lutheran: NONE Referrals: No additional considerations at present Follow-up: Follow up 3 weeks after procedure Depending on response to the above plan, consider: Erector Spinae Injections, MBB/RFA Right L2-3,3-4; Electrodiagnostic Study Interval History: Overall pain and functional disability since last visit: Unchanged New Complaints since last visit: No Patient is here after having a left and right erector spinae block at T5 11/29/2023 and 11/09/2023 respectively. Patient reporting no relief from the pain. Patient stating that she continues to have pain in her mid back. Stating it is interfering with her activities of daily living on a daily basis. Stating that it is hard to say how much relief she received from any of the injections because this pain is restrictive. Patient stating she is also getting pain in she feels it is the carotid artery area. States it comes and goes and when she gets the pain there will radiate up the side of her face bilaterally and and at the top of the head. Patient stating an MRI of her neck was done but they do not think this pain is related to the disease in her neck. Current Pain Medications: Neuropathics: None NSAIDS: Muscle Relaxants: Topicals: Other Prescription or OTC Pain Medications: Tylenol OTC - partial relief Opioids (when applicable): Date last refilled: Quantity supplied: Quantity remaining: Last taken: Tolerating Medication: N/A Medications helping improve ADL's and Self-care: N/A Current Therapies Attended: No Current Therapies Studies Obtained (when obtained, relevant findings reported below): None Notable Events During Course of Treatment: Initial HPI: (Obtained on 10/21/2021) Alyce Urrutia is a 81 year old female, who presents having been referred by Self, for evaluation and management of the above-mentioned chief complaint. This has been present for the past five years. The onset of symptoms was not sudden and was without associated trauma. The pain is most severe at night, she has gradual improvement as the day progresses. Treatments prior to initial presentation include the following: Medications (See below), Injections (See below), Modalities (eg. Heat, Ice), Physical Therapy , Acupuncture, Home Exercise Program , and Activity Modification. She has had a She has previously seen a Dr. Mckeon for pain management, last in 2018, who performed lumbar RFA, with minimal relief. At that time, she had primarily axial low back pain. 03/2022 - Discontinue Gabapentin, ineffective Data Reviewed: PAIN PROCEDURES: DATE PROCEDURE IMPROVEMENT 11/29/2023 L erector spinae block T5 none 11/09/2023 R erector spinae block T5 none 09/11/2023 B/L RFA L2-L4 100% in that region 07/26/2023 B/L MBNB L2-L4 100% or 6 hrs. 07/10/2023 B/L MBNB L2-4 100% for 4 hrs 04/13/2023 ILESI L1-L2 75%for 1 week 12/19/2022 RFA, Bilat L4-5,5-S1 No relief (positive Diagnostic Response) 12/05/2022 RFA, Bilat T9-10,11-12 No relief (positive Diagnostic Response) 10/10/2022 MBB, Bilat T9-10,11-12 Positive Diagnostic (>80% x > 4 hours) 09/21/2022 MBB, Bilat T9-10,11-12 Positive Diagnostic (>80% x > 4 hours) 05/18/2022 RFA bilateral L4-L5, L5-S1 100% x 4-5 months 04/13/2022 Bilateral MBNB L4-L5, L5-S1 95% on the left and 85% on the right 03/30/2022 Bilateral MBNB L4-L5, L5-S1 95% 01/26/22 RFA R Cluneal Nerve 30% 12/01/2021 Right Cluneal Nerve Blocks Nearly 100% x 8 hours (positive diagnostic) MEDICATIONS Taken TO DATE (for the chief complaint(s)): Membrane Stabilizers: Neurontin (Gabapentin): Discontinued - No Benefit and had side effects NSAIDS: None Muscle Relaxants: Zanaflex (Tizanidine): Beneficial Topicals: None Other Prescription or OTC Pain Medications: Tylenol (Acetaminophen): Beneficial Opioids: None Current Anti-depressants or Mood-Stabilizers: None Current Anti-Coagulants: None SOCIAL HISTORY No social history on file. Allergies: ALLERGIES Allergen Reactions Prednisone Shortness of Breath Pallor, chest pain, palpitations ORAL MEDICATIONS Beef Containing Pro* Intolerance Levaquin [Levofloxa* Other: See Comments sores in mouth/joint pain Mirapex [Pramipexol* Intolerance Doesn't help leg cramps Tramadol Intolerance Pt gets jittery Valsartan-Hydrochlo* Other: See Comments Worsens nocturnal leg cramps. Patient can take valsartan alone with no issues 11/29/2023 12/14/2023 INTAKE PAIN ASSESSMENT Are you having pain associated with your visit today? Yes, Provider notified Yes, Provider notified Pain Scales Verbal (Numeric Rating or Visual Analog Scale) Verbal (Numeric Rating or Visual Analog Scale) Pain Level 7 6 Pain Location Back-Middle Back-Lower Description Aching Aching;Stabbing;Spasm;Sharp;Shooting;Pressure Duration Units Years Years Frequency Intermittent Continuous Intervention/Comfort measure Medication;Reposition;Relaxation Medication;Reposition;Relaxation Compliance: PDMP website checked and validated on 12/14/2023 by Veena Meléndez APRN.LEAD APPLICATION ARCHITECT All prescriptions have been APPROPRIATELY filled. No suspicious activity was identified. Recent Drug screens: 10/21/2021 02/09/2023 12/14/2023 AG SPINE COMBINATION Questionnaire GREENLIGHT Completed Date 10/21/2021 Questionnaire Opiod Risk Tool Opiod Risk Tool Opiod Risk Tool Completed Date 10/21/2021 02/09/2023 12/14/2023 Comments 0 Opioid Risk Tool Opiod Risk Tool Date Completed 12/14/2023 Comments 0 (All drug screens are appropriate unless indicated otherwise) Risk Assessment: MARCELO-7: 10/21/2021 MARCELO - 7 SCORES Score 0 (0-4) minimal anxiety, (5-9) mild anxiety, (10-14) moderate anxiety, (15-21) severe anxiety PHQ-9: 01/06/2015 09/14/2017 10/21/2021 PHQ-9 Score 1 2 0 (0-4) minimal depression, (5-9) mild depression, (10-14) moderate depression, (15-19) moderately severe depression, (20-27) severe depression Diagnostic Studies: Relevant Imaging: MRI Spine Report MRI LUMBAR SPINE WO IVCON Exam End: 01/18/2022 1:20 PM (Final result) Narrative: * * *Final Report* * * DATE OF EXAM: Jan 18 2022 1:20PM [facility] 0303 - MRI LUMBAR SPINE WO IVCON / PROCEDURE REASON: multiple diagnoses * * * * Physician Interpretation * * * * EXAMINATION: MRI LUMBAR SPINE WO IVCON CLINICAL HISTORY: Spinal stenosis, lumbar region. TECHNIQUE: Routine lumbosacral spine MR protocol without gadolinium. MQ: [id number] COMPARISON: Outside institution lumbar spine MRI 04/13/2016 RESULT: Counting reference: Lumbosacral junction. For the purposes of this report, L4-5 is considered the level of the iliac crest and assume there are 5 lumbar-type vertebrae. Anatomic variant: None. Localizer images: 2.5 cm right upper pole renal cyst appearing slightly complex with intrinsic septations. Tiny left renal cyst. Right hip arthroplasty. Alignment: Levoscoliosis, apex L2. Trace left lateral listhesis of L3 on L4. Bone marrow signal/fracture: No evidence of pathologic marrow infiltration. No evidence of prior fracture. L2 intraosseous hemangioma. Multilevel endplate degenerative changes and multiple levels of moderate disc space narrowing. L4 superior endplate Schmorl's node. Conus: The conus is within normal limits of signal intensity and morphology, terminating at L1. Paraspinal soft tissues: Fatty atrophy of the lower paraspinal musculature. Lower thoracic spine: Visualized lower thoracic canal and foramina are patent. T12-L1: Shallow annular disc bulging flattens the ventral thecal sac without significant spinal canal or foraminal stenosis. L1-L2: Mild spinal canal stenosis secondary to disc bulging and dorsal osteophytic endplate spurring. Moderate right and mild left facet arthrosis. Mild right and no significant left foraminal stenosis. L2-L3: Severe spinal canal stenosis secondary to disc bulging and dorsal osteophytic endplate spurring as well as hypertrophic degenerative facet arthrosis. Severe right and moderate left subarticular recess effacement. Moderate left greater than right foraminal stenosis. Findings are unchanged. L3-L4: Moderate spinal canal stenosis secondary to disc bulging, dorsal osteophytic endplate spurring and hypertrophic degenerative facet arthrosis. Moderate left greater than right subarticular recess effacement. Moderate left and mild to moderate right foraminal stenosis. L4-L5: Moderate spinal canal stenosis secondary to disc bulging, dorsal osteophytic endplate spurring, left greater than right degenerative facet arthrosis. Moderate to severe left and mild to moderate right subarticular recess effacement. Moderate left and mild right foraminal stenosis. L5-S1: Mild spinal canal stenosis secondary to disc bulging. Moderate degenerative facet arthrosis. Mild left and no significant right foraminal stenosis. Sacrum and iliac wings: The visualized sacrum and iliac wings are within normal limits. Impression: IMPRESSION: Lumbar spondylosis and scoliosis without substantial progression from the 04/13/2016 examination. There is again up to severe spinal canal stenosis at L2-L3. Varying degrees of up to moderate foraminal stenosis as detailed. 2.5 cm right upper pole renal cyst with some apparent intrinsic septations. This can be further evaluated with dedicated renal ultrasound. Anatomic Thoracic/Lumbar Variant: None. L4-5 is considered the level of the iliac crest and assume there are 5 lumbar-type vertebrae. 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B Transcribe Date/Time: Jan 18 2022 1:28P Dictated by : ARUN OSULLIVAN DO This examination was interpreted and the report reviewed and electronically signed by: ARUN OSULLIVAN DO on Jan 18 2022 1:35PM EST Electrodiagnostic Study (EMG): None Recent Labs: Creatinine Date Value Ref Range Status 06/28/2016 1.26 0.70 - 1.40 mg/dL Final No results found for: EGFR No results found for: PCGLUCOSE WBC Date Value Ref Range Status 06/29/2016 6.16 3.70 - 11.00 k/uL Final Hemoglobin Date Value Ref Range Status 06/29/2016 9.0 (L) 11.5 - 15.5 g/dL Final Hematocrit Date Value Ref Range Status 06/29/2016 29.1 (L) 36.0 - 46.0 % Final Platelet Count Date Value Ref Range Status 06/29/2016 178 150 - 400 k/uL Final Current Medications, Past Medical History, Past Surgical History, Family History, Social History and Review of Systems: On today's date, noted above, I have confirmed and edited as necessary, the PFSH and ROS obtained by others. Physical Exam: 12/14/23 1404 Pulse: 88 Resp: 16 SpO2: 99% Physical Exam Vitals reviewed. Constitutional: General: She is not in acute distress. Appearance: She is not ill-appearing. HENT: Head: Normocephalic and atraumatic. Eyes: Conjunctiva/sclera: Conjunctivae normal. Cardiovascular: Pulses: Normal pulses. Pulmonary: Effort: Pulmonary effort is normal. No respiratory distress. Musculoskeletal: Arms: Thoracic back: Tenderness present. Decreased range of motion. Lumbar back: No tenderness. Normal range of motion. Comments: Pt is tender to touch bilaterally in area marked. Skin: General: Skin is warm and dry. Neurological: Mental Status: She is alert and oriented to person, place, and time. Psychiatric: Mood and Affect: Mood and affect normal. Behavior: Behavior normal. Behavior is cooperative. IMPRESSION: 83 year old female with significant past medical history for who presents with complaint(s) of axial low back pain, myofascial referred pain into the right torso. Patient had erecto spinea injections at T10 with no relief. We will attempt trigger point injections however I did explain to the patient I am running out of options for management. We did discuss the Sprint apparatus patient is interested and I will set the patient up to be seen by one of the interventionalists to discuss potential Sprint as the patient did get excellent relief from the RFA just did not last. Diagnoses: (M79.18) Myofascial pain (primary encounter diagnosis) (M47.816) Lumbar spondylosis (M48.061) Spinal stenosis of lumbar region, unspecified whether neurogenic claudication present (M54.6) Thoracic spine pain (M47.814) Thoracic spondylosis without myelopathy PLAN: Alyce Urrutia would benefit from the following to reach personal goals for decreasing pain, improving function and work participation, and/or improving quality of life: Medications: No Changes - Continue Current Medications Procedure: TRIGGER POINT INJECTION: Location (muscle groups): bilateral thoracic paraspinal and rhomboid region Medication Injected: 0.25% Bupivacaine # Sessions Requested: 1 Approximate Time Between Sessions (if applicable): 3-4 weeks PURPOSE: To diagnose trigger points as a cause of patient's pain and immobility. To provide therapeutic pain relief to improve range of motion, ADL's and community participation. EXAM FINDINGS: Trigger Point Present (Hyper excitable area of the body, where the application of a stimulus provokes pain to a greater degree than the surrounding area): YES FAILED TREATMENTS: Studies: None Functional Lutheran: NONE Referrals: No additional considerations at present Follow-up: [address] Chakraborty, Dr Garcia or Dr Chicas to discuss the SPRINT Depending on response to the above plan, consider: Erector Spinae Injections, MBB/RFA Right L2-3,3-4; Electrodiagnostic Study Patient Education, Compliance and Clinic Policies Reviewed and/or Discussed Today: None Attribution: In addition to reviewing the information noted above, some elements copied from my most recent clinical note(s), including the physical exam (completed in entirety today), and the impression and plan sections, have been updated where appropriate. All reflect current medical decision making from today's date. Veena Meléndez APRN.LEAD APPLICATION ARCHITECT Pain Management [facility] PROGRESS Observed: 12/14/2023 1:59 PM Status: COMPLETED Source: [facility] HNO ID: [id number] Author: GUNJAN GUERRERO MA Service: ? Author Type: Bank Compliance Officer Type: Progress Notes Filed: 12/14/2023 15:37 Note Text: Review of Systems Constitutional: Negative for activity change, chills, fever and unexpected weight change. Genitourinary: Negative for difficulty urinating. Musculoskeletal: Positive for arthralgias, back pain, gait problem, myalgias, neck pain and neck stiffness. Negative for joint swelling. Neurological: Negative for weakness, numbness and headaches. Psychiatric/Behavioral: Negative for dysphoric mood, sleep disturbance and suicidal ideas. The patient is not nervous/anxious. ALLERGIES DATE TYPE / CODE NAME / CODE REACTION SEVERITY SOURCE 12/23/2014 DRUG INGREDI/926508 003(SNOMED CT) TRAMADOL INTOLERANCE [facility] 08/26/2014 Drug Class/88817704 3(SNOMED CT) BEEF CONTAINING PRODUCTS INTOLERANCE [facility] 04/26/2012 DRUG INGREDI/657332 003(SNOMED CT) PREDNISONE SHORTNESS OF High [facility] 04/26/2012 DRUG INGREDI/337198 003(SNOMED CT) PRAMIPEXOLE INTOLERANCE [facility] 04/26/2012 DRUG/373646395 (SNOMED CT) VALSARTAN-HYDROCHLOROT HIAZIDE OTHER: SEE C [facility] 08/28/2007 DRUG INGREDI/400690 003(SNOMED CT) LEVOFLOXACIN OTHER: SEE C [facility] ENCOUNTERS ADMIT/DISCHARGE ACCOUNT NUMBER ADMITTING ENCOUNTER CLASS LOC ATION SOURCE 09/26/2024/ 5 [id number] [facility]/19/2024/ 5 [id number] [facility] 07/11/2024 [id number] [facility] [place] [address] 07/11/2024/ 5 [id number] [facility] 07/11/2024 [id number] [facility] 07/10/2024 [id number] [facility] 06/18/2024/ 5 [id number] [id number] 05/23/2024/ 5 [id number] [facility] 05/16/2024/ 5 [id number] [facility] 04/25/2024/ 5 [id number] [facility] 03/28/2024/ 5 [id number] [facility] 02/29/2024/ 4 [id number] [facility] 02/01/2024/ 4 [id number] [facility] 12/14/2023/ 4 [id number] [facility] PAYERS ENCOUNTER GUARANTOR PAYER SUBSCRIBER SOURCE 09/26/2024 Primary Insurance:AETNA MEDICARE PPOPolicy Number: [id number] Date:4469-57-01Tfkv Name:Lizett Delvalle OBRIENDOB: [id number] [address] 09/19/2024 Primary Insurance:AETNA MEDICARE PPOPolicy Number: [id number] Date:3386-78-08Clyz Name:Lizett Delvalle OBRIENDOB: [id number] [address] 07/11/2024 Primary Insurance:AETNA MEDICARE PPOPolicy Number: [id number] Date:9453-04-43Wdhs Name:Lizett Delvalle OBRIENDOB: [id number] [address] 07/11/2024 Primary Insurance:AETNA MEDICARE PPOPolicy Number: [id number] Date:3805-21-18Gsgs Name:Lizett Delvalle OBRIENDOB: [id number] [address] 07/11/2024 Primary Insurance:AETNA MEDICARE PPOPolicy Number: [id number] Date:6999-02-62Dddh Name:Lizett Delvalle OBRIENDOB: [id number] [address] 07/10/2024 Primary Insurance:AETNA MEDICARE PPOPolicy Number: [id number] Date:6511-37-85Dxkk Name:Lizett Delvalle OBRIENDOB: [id number] [place], [place] [address] [place] [address] 06/18/2024 Primary Insurance:AETNA MEDICARE PPOPolicy Number: [id number] Date:7433-68-99Cnna Name:Lizett Delvalle OBRIENDOB: [id number] [place], [place] [id number] [place] [address] 05/23/2024 Primary Insurance:AETNA MEDICARE PPOPolicy Number: [id number] Date:8664-27-82Lore Name:Lizett Delvalle OBRIENDOB: [id number] [place], [place] [id number] [place] [address] 05/16/2024 Primary Insurance:AETNA MEDICARE PPOPolicy Number: [id number] Date:5347-65-00Ltvn Name:Lizett MEAD Mook OBRIENDOB: [id number] [place], [place] [address] [place] [address] 04/25/2024 Primary Insurance:AETNA MEDICARE PPOPolicy Number: [id number] Date:8030-65-04Koye Name:Lizett MEAD Mook OBRIENDOB: [id number] [place], [place] [address] [place] [address] 03/28/2024 Primary Insurance:AETNA MEDICARE PPOPolicy Number: [id number] Date:5042-66-61Urwk Name:Lizett MEAD Mook OBRIENDOB: [id number] [place], [place] [address] [place] [address] 02/29/2024 Primary Insurance:AETNA MEDICARE PPOPolicy Number: [id number] Date:7788-51-34Vgwp Name:Lizett MEAD Mook OBRIENDOB: [id number] [place], [place] [address] [place] [address] 02/01/2024 Primary Insurance:AETNA MEDICARE PPOPolicy Number: [id number] Date:1741-79-06Pwjt Name:Lizett Delvalle OBRIENDOB: [id number] [place] [address] [facility] 12/14/2023 Primary Insurance:AETNA MEDICARE [facility] Number: [id number] Date:3379-69-36Oyrx Name:Lizett Delvalle OBRIENDOB: [id number] [place] [address] [facility]
[2024-10-28 11:43] VITALS: BMI 36.9
--- NOTE | 2024-12-10 14:00 | BD_ITS ---
PROCEDURE: DEXA BONE DENSITY STUDY 12/10/2024 REASON FOR EXAM: SCREENING F, age 84 y/o . Postmenopausal screening. TECHNIQUE: Procedure Code: BDDBD Modality: DX Procedure: DEXA BONE DENSITY STUDY COMPARISON: Multiple previous studies dating back to 2010, the most recent from 2022 FINDINGS: BMD and T-SCORES Lumbar spine: 1.105 g/cm2, T-score 0.8 Levels: L1 through L4 Change from prior: Increase of 6%. Left femoral neck: 0.881 g/cm2, T-score 0.3 Femoral neck comparison data not recommended for monitoring change. Prior T-score Left total hip: 0.827 g/cm2, T-score -0.9 Change from prior: Decrease of 1.1%. The World Health Organization has defined the following categories based on bone density: Normal bone density: T-score equal to or greater than -1.0 Osteopenia: T-score between -1.0 and -2.5 Osteoporosis: T-score equal to or less than -2.5 FRAX (or Comparable) Fracture Risk Assessment: 10 Year Probability of Fracture: Major Osteoporotic Fracture: 11% Hip Fracture: 1.3% (Note: FRAX is not to be reported in setting of normal range bone density, osteoporosis on DEXA, known history of osteoporosis, prior osteoporotic hip or vertebral fracture, or for any patient undergoing pharmacological treatment for bone loss.) The National Osteoporosis Foundation (NOF) recommends pharmacological treatment for patients with a FRAX 10-year risk of 3% or higher for a hip fracture, or 20% or higher for a major osteoporotic fracture, to prevent osteoporosis and reduce fracture risk. The patient does not meet the pharmacological treatment recommendations for prevention of osteoporosis. BD/Dexa Bone Density Study IMPRESSION: OSTEOPENIA. Recommend follow-up as clinically warranted. Reading Location: [id number]
--- NOTE | 2024-12-10 14:30 | BI_ITS ---
EXAM: SCRN MAMM (CAD)W/ELSY BILAT DATE: 12/10/2024 CLINICAL HISTORY: F, Age 84 y/o , SCRN MAMM (CAD)W/ELSY BILAT; DUE IN TECHNIQUE: Procedure Code: [id number] Modality: MG Procedure: SCRN MAMM (CAD)W/ELSY BILAT COMPARISON: Prior exam(s) dated 11/03/2020. FINDINGS: TISSUE DENSITY: There are scattered areas of fibroglandular density. Bilateral Breast Mammographic Findings: No significant masses, calcifications or other abnormalities are identified. Stable appearance of a previously biopsied area in the central dorsal right breast. No new suspicious findings, no interval change BI/SCRN MAMM (CAD)W/ELSY BILAT IMPRESSION: Stable screening mammogram, no suspicious findings OVERALL FINAL ASSESSMENT BI-RADS 2: BENIGN RECOMMENDATION: Routine annual follow-up in 1 Year Additional Recommendation none A letter with findings and recommendations will be mailed to the patient. Reading Location: [id number]
== END | disposition home or self-care (01) ==
LOC: OPBD 13:26
PROVIDERS: PCP Internal Medicine; Referring Provider Internal Medicine; Visit Provider Internal Medicine
DX: Z13.820 Encounter for screening for osteoporosis (principal); Z78.0 Asymptomatic menopausal state; Z12.31 Encounter for screening mammogram for malignant neoplasm of breast
CPT/HCPCS: 77063; 77067; 77080

== ENCOUNTER → 2025-01-29 | Outpatient (CLI) | payer MEDICARE, SELFPAY ==
[2024-10-28 11:43] VITALS: BMI 36.9
[2025-01-29 13:26] LABS: Mucous, Urine 0 SEEN /hpf (<or=2+)
[2025-01-29 15:14] LABS: Hematocrit 37.3 % (37-47); Hemoglobin 11.6 g/dL (12.0-15.0); Immature Granulocytes Count 0.010 X10^3/uL (0.0-0.0); Mean Corp Hgb Conc 31.1 g/dL (32-36); Mean Corpuscular Volume 91.6 fL (81-99); Mean Platelet Vol. 10.0 fl (6.2-12.0); NRBC Flagged by Analyzer 0 % (0-5); Platelet Count 335 K/mm3 (150-450); RBC Distribution Width CV 12.8 % (11.6-14.6); RBC Distribution Width SD 42.4 fl (35.1-43.9); Red Blood Count 4.07 M/mm3 (4.2-5.4); White Blood Count 7.4 K/mm3 (4.4-11.0)
[2025-01-29 15:45] LABS: Creatinine, Urine (random) 265.00 mg/dL (28.00-217.00); Microalbumin,Random Urine 40.6 mg/L (<20 mg/L)
[2025-01-29 15:57] LABS: AST(SGOT) 24 U/L (<=31); Alanine Aminotransfer ALT/SGPT 15 U/L (<=34); Albumin, Serum 4.6 g/dL (3.4-4.8); Alkaline Phosphatase 95 U/L (35-104); Anion Gap 16 (5-15); BUN 20 mg/dL (4-19); BUN/Creat Ratio 14.0 RATIO (10-20); Calcium,Total 9.3 mg/dL (7.6-11.0); Carbon Dioxide 21.4 mmol/L (21.0-32.0); Chloride 106 mmol/L (98-108); Globulin 2.6 g/dL (2.2-4.2); Glucose 98 mg/dL (70-99); Potassium 3.7 mmol/L (3.3-5.1); Vitamin B12 790 pg/mL (180-914)
[2025-01-29 16:28] LABS: FOLATES,SERUM (FOLIC ACID) 5.58 ng/mL (4.60-34.80)
[2025-01-29 18:41] LABS: Color, Urine Yellow (Yellow); Glucose, Dipstick Normal (Normal); Ketone-Dipstick Negative (Negative); Leukocyte Esterase-Dipstick 100 /ul (Negative); Nitrite-Dipstick Negative (Negative); Occult Blood-Urine 10 /ul (Negative); Protein-Dipstick 30 mg/dl (Negative); Specific Gravity, Urine 1.020 (1.002-1.030)
[2025-01-29 18:42] LABS: Urine Bilirubin Dipstick 1 mg/dL (Negative)
[2025-01-29 21:15] LABS: Red Blood Cells-Urine 0-5 SEEN /hpf (0-5); Squamous Epithelial Cells - UA 0-5 SEEN /hpf (5-10); Transitional Epithelial - Ur 0-5 SEEN /hpf (0-5)
== END | disposition home or self-care (01) ==
LOC: LABSPEC 13:21
PROVIDERS: PCP Internal Medicine; Referring Provider Internal Medicine; Visit Provider Internal Medicine
DX: I10 Essential (primary) hypertension (principal); D51.8 Other vitamin B12 deficiency anemias; N23 Unspecified renal colic
CPT/HCPCS: 80053; 81001; 82043; 82570; 82607; 82746; 85025; 87086; 87088

== ENCOUNTER → 2025-02-19 | Outpatient (CLI) | payer MEDICARE, SELFPAY ==
[2024-10-28 11:43] VITALS: BMI 36.9
[2025-02-19 18:12] LABS: Pro- Brain NATRIURETIC PEPTIDE 238 pg/mL (<=1800)
== END | disposition home or self-care (01) ==
LOC: MTLAB 16:06
PROVIDERS: PCP Internal Medicine; Referring Provider Internal Medicine; Visit Provider Internal Medicine
DX: R60.0 Localized edema (principal); K76.0 Fatty (change of) liver, not elsewhere classified
CPT/HCPCS: 36415; 82105; 83880

== ENCOUNTER → 2025-03-07 | Outpatient (CLI) | payer MEDICARE, SELFPAY ==
[2024-10-28 11:43] VITALS: BMI 36.9
--- NOTE | 2025-03-07 12:48 | US_ITS ---
PROCEDURE: ABD LIMITED W/ ELASTOGRAPHY REASON FOR EXAM: FATTY LIVER COMPARISON: May 01, 2024 TECHNIQUE: Procedure Code: [id number] Modality: US Procedure: ABD LIMITED W/ ELASTOGRAPHY Right upper quadrant abdominal ultrasound. [facility] ElastQ Imaging shear wave elastography for non-invasive assessment of liver tissue stiffness. [facility] EPIQ Elite. FINDINGS: LIVER: Length: 13.6 cm Echotexture: Diffusely echogenic suggesting fatty infiltration. Contour: Normal Lesions: Centrally in segment 4 there is a lobular mass that is isoechoic to hypoechoic measuring 4.3 x 2.9 x 4.5 cm. Elastography: EQI Med: 6.3 kPa EQI Med Luciano: 1.43 m/s IQR/Med: 19.3 %* GALLBLADDER: Echogenic small calculi are present. Negative sonographic Srivastava's. No pericholecystic fluid or wall thickening. COMMON BILE DUCT: Normal 3 mm. PANCREAS: Normal Imaged portions of the right kidney are unremarkable. Right kidney measures 10.1 x 4.5 x 5.0 cm. No right upper quadrant ascites. US/ABD Limited w/ Elastography IMPRESSION: 1. Diffuse hepatocellular disease. Abnormal mass in segment 4 of the liver ce ntrally. Recommend contrast MRI to evaluate for hepatocellular carcinoma. 2. Metavir score: F2-F3. Reference Values: SRU <1.37 m/s (5.7kPa): No to mild fibrosis 1.37 m/s - 2.2 m/s: Moderate to severe fibrosis >2.2 m/s (15kPa): Significant fibrosis / cirrhosis METAVIR Score F2 or higher: 1.34 m/s (5.7kPa) F3 or higher: 1.55 m/s (7.3kPa) F4: 1.80 m/s (10kPa) * If the IQR/Med is >30%, the variance in the measurements is a large and the a ccuracy of the measurement may be in question. Reading Location: [id number]
== END | disposition home or self-care (01) ==
LOC: US 12:46
PROVIDERS: PCP Internal Medicine; Referring Provider Internal Medicine; Visit Provider Internal Medicine
DX: K76.0 Fatty (change of) liver, not elsewhere classified (principal)
CPT/HCPCS: 76705; 76981